=== PATIENT | male | born 1995 | race Caucasian/White ===

== ENCOUNTER 2021-05-09 22:08 | Emergency (ER) | payer OTHER, BC, SELFPAY ==
[2021-05-09 22:25] VITALS: BP 158/90; PULSE 101; RESP 16; TEMP 37.4; O2SAT 99
[2021-05-09 23:38] LABS: Glucose Point of Care 369 mg/dl (65-105)
[2021-05-10 01:33] VITALS: BP 151/102; PULSE 99; RESP 18; O2SAT 98
[2021-05-10 02:27] VITALS: BP 138/91; PULSE 101; RESP 20; O2SAT 98
--- NOTE | 2021-05-10 02:37 | ED.RECABL ---
HPI - Recheck/Abnormal Lab/Rx General Chief Complaint: Recheck/Abnormal Lab/Rx Stated Complaint: my glucometer reads high, max is 600 on it. Time Seen by Provider: 05/10/21 02:36 Source: patient Mode of arrival: ambulatory Limitations: no limitations History of Present Illness HPI narrative: Patient is a 25-year-old male complaining of elevated blood glucose at home. Patient states that his glucose meter read high 3 times. Patient admits to having nausea today but denies any vomiting. Patient denies any chest pain, shortness of breath, abdominal pain, diarrhea, urinary symptoms, fever or chills. Related Data Home Medications Medication Instructions Recorded Confirmed atorvastatin 20 mg PO DAILY 05/22/19 carvedilol 25 mg PO BID 05/22/19 indapamide 2.5 mg PO DAILY 05/22/19 insulin regular hum U-500 conc unit SUBCUT 05/22/19 [Humulin R U-500 (Conc) Kwikpen] lisinopril 05/22/19 metformin 05/22/19 Allergies Allergy/AdvReac Type Severity Reaction Status Date / Time No Known Allergies Allergy Verified 01/01/18 21:28 Review of Systems Review of Systems: All systems reviewed & are unremarkable except as noted in HPI and below Constitutional: Constitutional: Denies body ache(s), Denies chills, Denies excessive sweating, Denies fatigue, Denies fever(s), Denies headache(s), Denies lethargy, Denies malaise, Denies weakness and Denies weight loss Eyes: Eyes: Denies blurry vision, Denies change in vision and Denies loss of vision ENT: Denies dizziness, Denies ear discharge, Denies headache(s), Denies lip swelling, Denies epistaxis, Denies nasal congestion, Denies neck pain, Denies throat swelling and Denies tongue swelling Cardiovascular: Cardiovascular: Denies chest pain, Denies chest pain at rest, Denies chest pain with activity, Denies diaphoresis, Denies rapid heart rate, Denies edema, Denies irregular heart rhythm, Denies lightheadedness, Denies palpitations, Denies dyspnea and Denies dyspnea on exertion Respiratory: Respiratory: Denies chest congestion, Denies cough, Denies hemoptysis, Denies dyspnea and Denies dyspnea on exertion Gastrointestinal: Gastrointestinal: Denies abdominal pain, Denies melena, Denies hematochezia, Denies diarrhea, Denies vomiting and Denies hematemesis Musculoskeletal: Musculoskeletal: Denies abnormal gait, Denies deformity, Denies joint swelling, Denies limited range of motion, Denies neck pain and Denies numbness Neurologic: Denies Abnormal speech present, Denies abnormal gait, Denies confusion, Denies dizziness, Denies headache(s), Denies focal weakness, Denies loss of vision, Denies numbness, Denies Other visual disturbances, Denies Sensory deficit (Neuro) and Denies weakness Psychiatric: Psychiatric: Denies confusion, Denies depression, Denies auditory hallucinations, Denies homicidal ideation and Denies suicidal ideation Endocrine: Endocrine: Denies cold intolerance, Denies excessive sweating, Denies fatigue, Denies heat intolerance and Denies palpitations Hematologic/Lymphatic: Hematologic/Lymphatic: Denies easy bleeding and Denies easy bruising Allergic/Immunologic: Allergic/Immunologic: Denies lip swelling, Denies throat swelling and Denies tongue swelling PMF Past Medical History Medical History (Updated 05/10/21 @ 04:37 by Dequan Moreno MD) CAD (coronary artery disease) Diabetes HTN (hypertension) MVP (mitral valve prolapse) Social History Social History Smoking status: Never smoker Alcohol intake: current Alcohol use details: occasional Substance use: never Exam Const: General: cooperative, healthy appearing, comfortable, no acute distress, well developed, alert and awake; No confusion Orientation/consciousness: oriented to person, oriented to place, oriented to time, patient oriented x3 and No confusion Limitations: no limitations HENMT: Head: normal to inspection, normocephalic and
[2021-05-10 03:09] LABS: Alveolar/Arterial O2 Gradient 24.1 mmHg; Base Excess ABG -3.7 mEq/l (+/-2.0); Carboxyhemoglobin 0.5 % THb (0-2.0); Device ROOM AIR; Fractional Inspired Oxygen 21 %; HCO3 ABG 20.1 mEq/l (22.0-26.0); Methemoglobin ABG 0.4 %THb (0-1.5); Oxygen Content ABG 21.4 %vol (16.0-22.0); Oxygen Saturation ABG 96.5 % (95.0-100.0); Oxyhemoglobin 95.1 % THb (90.0-100.0); PCO2 ABG 33.5 mmHg (35.0-45.0); PO2 ABG 85.5 mmHg (80.0-100.0); PO2 FiO2 Ratio Arterial Blood 4.07 %; Site Drawn RIGHT BRACHIAL; pH ABG 7.396 (7.350-7.450)
[2021-05-10] MEDS: LACTATED RINGERS 1,000 ML 999 ML IV CONT (03:13)
[2021-05-10 03:21] LABS: Basophils Percent Auto 0.4 % (0.2-1.2); Eosinophils Absolute Auto 0.2 K/mm3 (0-0.3); Eosinophils Percent Auto 3.1 % (0-4.4); Hematocrit 43.4 % (42.0-52.0); Immature Granulocyte Absolute 0.02 K/mm3 (0.00-0.031); Immature Granulocyte Percent A 0.4 % (0-0.5); Lymphocytes Absolute Auto 2.17 K/mm3 (0.9-3.2); Lymphocytes Percent Auto 40.1 % (18.3-44.2); Mean Corpuscular Volume 81.7 fl (80-100); Mean Platelet Volume 9.7 fl (7.4-10.4); Monocytes Absolute Auto 0.4 K/mm3 (0.1-0.6); Monocytes Percent Auto 7.4 % (2.6-8.5); Neutrophils Absolute Auto 2.6 K/mm3 (1.3-6.7); Neutrophils Percent Auto 48.6 % (45.5-73.1); Platelet Count Result 312 k/mm3 (150-375); Red Blood Count 5.31 M/mm3 (4.6-6.20); Red Cell Distribution Width 12.2 % (11.5-14.5); White Blood Count 5.4 K/mm3 (4.5-10.0)
--- NOTE | 2021-05-10 03:25 | PC.NURSE ---
pt c/o RUQ pain x 1 week rates pain 01/13
[2021-05-10 03:26] LABS: Mean Corpuscular HGB Conc 39.2 g/dl (32-36)
[2021-05-10] MEDS: SODIUM CHLORIDE 0.9% IV 1,000 ML 999 ML IV CONT ×2 (03:29→04:46)
[2021-05-10 03:36] LABS: Beta-Hydroxybutyrate/Acetoacetate 0.57 mmol/L (0.02-0.27)
[2021-05-10 04:09] LABS: Glucose Point of Care 244 mg/dl (65-105)
[2021-05-10 04:31] LABS: Alanine Aminotransferase 71 U/L (4-50); Albumin Level 4.1 g/dL (3.5-5.1); Alkaline Phosphatase 121 U/L (38-126); Anion Gap 12 mmol/L (8-16); Aspartate Amino Transferase 45 U/L (17-59); Bilirubin,Total 0.8 mg/dL (0.2-1.3); Blood Urea Nitrogen 20 mg/dL (9-20); Calcium 8.9 mg/dL (8.4-10.2); Carbon Dioxide 21 mmol/L (22-30); Chloride 102 mmol/L (98-107); Estimated CRCL calculation 238 ml/min; Estimated Glomerular Filt Rate > 60; Glucose 220 mg/dL (65-110); Potassium 4.2 mmol/L (3.4-5.0); Sodium 135 mmol/L (137-145)
[2021-05-10 05:18] LABS: Glucose Point of Care 189 mg/dl (65-105)
[2021-05-10] MEDS: HYDROcodone/acetaminophen (*CRX) 5-325 MG TABLET 1 TAB PO (05:38)
[2021-05-10 05:39] VITALS: BP 157/99; PULSE 92; RESP 18; O2SAT 100
[2021-05-10 05:46] LABS: Add Urine Microscopic? YES; Appearance Urine Clear (Clear); Bilirubin Urine Negative (Negative); Blood Urine Negative (Negative); Color Urine Yellow (Yellow); Glucose Urine UA 3+ mg/dL (Negative); Ketones Urine 1+ mg/dL (Negative); Leukocyte Esterase Ur Negative LEU/UL (Negative); Mucus Urine Rare /lpf; Nitrate Urine Negative (Negative); Protein Urine 2+ mg/dL (Negative); Urobilinogen Urine Negative mg/dL (<2.0); WBC Urine 0-3 /hpf
[2021-05-10 05:49] LABS: Specific Grav Ur 1.031 (1.001-1.035)
== END 2021-05-10 06:29 | disposition home or self-care (01) ==
PROVIDERS: Emergency Provider Emergency Medicine
DX: E11.65 Type 2 diabetes mellitus with hyperglycemia (principal); I25.10 Atherosclerotic heart disease of native coronary artery without angina pectoris; I10 Essential (primary) hypertension; I34.1 Nonrheumatic mitral (valve) prolapse; Z79.4 Long term (current) use of insulin; Z79.84 Long term (current) use of oral hypoglycemic drugs
CPT/HCPCS: 36415; 36600; 80053; 81001; 82010; 82375; 82805; 82948; 83050; 85025; 96360; 99283; A9270; J7030; J7120

== ENCOUNTER 2021-06-06 10:30 | Emergency (ER) | payer BC, SELFPAY ==
--- NOTE | 2021-06-06 10:39 | ED.GENADULT ---
HPI - General Adult General Chief complaint: Unspecified Stated complaint: High Blood Sugar Time Seen by Provider: 06/06/21 10:39 Source: patient, RN notes reviewed and old records reviewed Mode of arrival: ambulatory Limitations: no limitations History of Present Illness HPI narrative: 25-year-old male presents to the [facility] with complaints of elevated blood sugar. Had been seen in the ER recently. Patient reports that he got his Covid vaccine on May 25, May 30 has been struggling with his blood sugars and generalized not feeling well. 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 Denies any chest pain or abdominal pain. No shortness of breath. Denies fevers. Related Data Home Medications Medication Instructions Recorded Confirmed carvedilol 25 mg PO BID 05/22/19 06/06/21 indapamide 2.5 mg PO DAILY 05/22/19 06/06/21 insulin regular hum U-500 conc 1 unit SUBCUT DIRECTED 05/22/19 06/06/21 [Humulin R U-500 (Conc) Kwikpen] lisinopril 5 mg PO DAILY 05/22/19 06/06/21 metformin 500 mg PO BID 05/22/19 06/06/21 duloxetine 60 mg PO DAILY 06/06/21 06/06/21 Allergies Allergy/AdvReac Type Severity Reaction Status Date / Time No Known Allergies Allergy Verified 01/01/18 21:28 Review of Systems Review of Systems: All systems reviewed & are unremarkable except as noted in HPI and below Constitutional: Constitutional: Reports no additional constitutional complaints, Denies chills and Denies fever(s) Eyes: Eyes: Reports no additional eye complaints ENT: Reports system reviewed and no additional complaints, except as documented Cardiovascular: Cardiovascular: Reports no additional cardiovascular complaints and Denies chest pain Respiratory: Respiratory: Reports no additional respiratory complaints, Denies cough, Denies dyspnea and Denies wheezing Gastrointestinal: Gastrointestinal: Reports no additional gastrointestinal complaints, Denies abdominal pain, Denies nausea and Denies vomiting Musculoskeletal: Musculoskeletal: Reports no additional musculoskeletal complaints Integumentary/Breasts: Skin/Breast: Reports system reviewed and no additional complaints, except as docu Neurologic: Reports system reviewed and no additional complaints, except as documented Psychiatric: Psychiatric: Reports no additional psychiatric complaints Endocrine: Endocrine: Reports as per HPI Comments: Blood sugar has been reading high. Allergic/Immunologic: Allergic/Immunologic: Reports no additional allergic/immunologic complaints PMFSH Past Medical History Medical History (Updated 06/06/21 @ 14:11 by Meagan Valdivia) CAD (coronary artery disease) Diabetes HTN (hypertension) MVP (mitral valve prolapse) Social History Social History Smoking status: Never smoker Alcohol intake: current Alcohol use details: occasional Substance use: never Comments At the time of my signature, I reviewed and agree with the nursing past medical, surgical, social, and family history. There is no relevant family history pertinent to the patient complaint. Exam Const: General: healthy appearing, no acute distress and alert Nutritional Appearance: well nourished and obese morbidly obese Orientation/consciousness: patient oriented x3 Limitations: no limitations HENMT: Head: normal to inspection Ears: external ears normal Eyes: Pupils: Equal, round and reactive pupils present Neck: Neck: normal visual inspection, no lymphadenopathy and no meningeal signs Chest: Chest palpation & inspection: normal inspection of the chest Resp: Effort & Inspection: normal respiratory effort and no use of accessory muscles Auscultation: clear to auscultation bilaterally, no crackles, no rales, no rhonchi and no wheezes Cardio: Rate: regular rate Rhythm: regular rhythm GI: GI Palp: Yes Soft to palpation, No Tenderness to palpation present (GI) and No Rebound tenderness present Back/Spine/Pelvis
[2021-06-06 10:40] VITALS: BP 137/84; PULSE 99; RESP 20; TEMP 36.6; O2SAT 98
[2021-06-06 10:54] LABS: Glucose Point of Care 472 mg/dl (65-105)
[2021-06-06 10:57] VITALS: BP 137/84; PULSE 99; RESP 20; TEMP 36.6; O2SAT 98
== END 2021-06-06 11:13 | disposition short-term general hospital (02) ==
LOC: EXPCOLL 10:35
PROVIDERS: Emergency Provider Nurse Practitioner
DX: E11.65 Type 2 diabetes mellitus with hyperglycemia (principal); I25.10 Atherosclerotic heart disease of native coronary artery without angina pectoris; I10 Essential (primary) hypertension; I34.1 Nonrheumatic mitral (valve) prolapse
CPT/HCPCS: 82948; 99212; G0463

== ENCOUNTER 2022-11-14 10:31 | Emergency (ER) | payer OTHER, SELFPAY ==
--- NOTE | 2022-11-14 10:48 | ED.GENADULT ---
HPI - General Adult General Chief complaint: Nausea/Vomiting/Diarrhea Stated complaint: High Blood Sugar Time Seen by Provider: 11/14/22 10:48 Source: patient Mode of arrival: ambulatory Limitations: no limitations History of Present Illness HPI narrative: 26-year-old male with history of hypertension and diabetes presents with complaint high blood sugar and high blood pressure for the last 3-4 days. Reports nausea vomiting for 3 days. Was seen at [facility] Saturday night and was told by nurse that he was not in DKA and to go home and hydrate. States that he did not see a provider that night. Patient reports that he continues to have nausea vomiting, urinating every hour, feels fatigued. Has been unable to go to work due to symptoms. Is taking his medications as prescribed. All systems reviewed and negative except as noted above. Related Data Home Medications Medication Instructions Recorded Confirmed carvedilol 25 mg tablet 25 mg PO BID 05/22/19 06/06/21 indapamide 2.5 mg tablet 2.5 mg PO DAILY 05/22/19 06/06/21 insulin regular hum U-500 conc 500 1 unit subcut DIRECTED 05/22/19 06/06/21 unit/mL(3 mL) subcut pen (Humulin R U-500 (Conc) Insulin Kwikpen) lisinopril 5 mg tablet 5 mg PO DAILY 05/22/19 06/06/21 duloxetine 60 mg capsule,delayed 60 mg PO DAILY 06/06/21 06/06/21 release Allergies Allergy/AdvReac Type Severity Reaction Status Date / Time No Known Allergies Allergy Verified 01/01/18 21:28 Review of Systems Review of Systems: CONSTITUTIONAL: Denies fever, chills, or sweats. Reports fatigue. EYES: Denies visual changes, redness, or discharge. ENT: Denies rhinorrhea, congestion, sore throat, or otalgia. CARDIOVASCULAR: Denies chest pain, palpitations, or edema. RESPIRATORY: Denies cough or dyspnea. GASTROINTESTINAL: Reports abdominal pain, nausea, vomiting. Denies diarrhea. GENITOURINARY: Denies dysuria or hematuria. reports urinary frequency. SKIN: Denies rash or itching. MUSCULOSKELETAL: Denies back pain, joint pain, or myalgia. NEUROLOGIC: Denies headache, numbness, or weakness. PSYCHIATRIC: Denies anxiety or depression. All other systems reviewed are negative, except as documented in HPI. [facility] Past Medical History Medical History (Updated 11/14/22 @ 11:05 by Molly Sheehan NP) CAD (coronary artery disease) Diabetes HTN (hypertension) MVP (mitral valve prolapse) Social History Social History Smoking status: Never smoker Alcohol intake: current Alcohol use details: occasional Substance use: never Comments At time of signature, agree with nursing past medical, surgical, social and family history. There is no relevant family history pertinent to the presenting complaint. Exam Narrative: GENERAL: This is a well-nourished, well-developed patient, in no apparent distress. Morbidly obese. HEAD: normocephalic, atraumatic. EYES: PERRL. Sclera clear/white. Vision is grossly intact. EARS: External ears normal NOSE: External nose normal NECK: Neck supple, non-tender without lymphadenopathy, masses or thyromegaly. CARDIOVASCULAR: Regular rate and rhythm without murmurs, gallops, or rubs. RESPIRATORY: Clear to auscultation. Breath sounds equal bilaterally. No wheezes, rales, or rhonchi. GASTROINTESTINAL: Abdomen soft, non-tender, nondistended. Bowel sounds are active. No hepato-splenomegaly, or palpable masses. No guarding. SKIN: warm, Dry, intact with no suspicious lesions or rash, good texture and turgor. NEURO: awake, alert, and oriented to person, place and time. There were no obvious focal neurologic abnormalities. EXTREMITIES: No joint tenderness, effusion, or edema noted. Course Course Level of Care: Express Care Visit Vital Signs Vital signs: Reviewed Transfer Transfered to: [facility] [facility] Transportation: Other ( private car) Transfer rationale: blood sugar 356 with nausea vomiting fo
[2022-11-14 10:50] VITALS: BP 180/95; PULSE 73; RESP 20; TEMP 36.9; O2SAT 100
[2022-11-14 10:53] LABS: Glucose Point of Care 346 mg/dl (65-105)
== END 2022-11-14 11:05 | disposition short-term general hospital (02) ==
PROVIDERS: Emergency Provider Nurse Practitioner Family
DX: E11.65 Type 2 diabetes mellitus with hyperglycemia (principal); Z79.4 Long term (current) use of insulin; I10 Essential (primary) hypertension; R11.2 Nausea with vomiting, unspecified; I25.10 Atherosclerotic heart disease of native coronary artery without angina pectoris; I34.1 Nonrheumatic mitral (valve) prolapse
CPT/HCPCS: 82948; 99212; G0463

== ENCOUNTER 2022-11-14 11:20 | Emergency (ER) | payer OTHER, SELFPAY ==
[2022-11-14] VITALS (7 sets, daily range): BP systolic 161–181; BP diastolic 94–102; PULSE 78–88; RESP 18–20; TEMP 36.6–36.7; O2SAT 95–100
--- NOTE | ~2022-11-14 | CT_ITS ---
EXAMINATION: CT abdomen pelvis w con DATE: 11/14/2022 12:46 INDICATION: Abdominal pain TECHNIQUE: Computed tomography (CT) of the abdomen and pelvis was performed with 100 mL Omnipaque-350 intravenous contrast. Automated exposure control and iterative reconstruction technique were employe d. The dose-length product was 2166.98 mGy-cm. COMPARISON: 01/01/2018 FINDINGS: Lung bases are clear. Heart size is normal. No pericardial or pleural effusion. Hepatomegaly with dif fuse hepatic steatosis with focal sparing along the gallbladder fossa. The right hepatic lobe measure s 30.7 cm craniocaudally. Gallbladder, pancreas, bilateral adrenal glands and kidneys are normal. Spl enomegaly measuring 20.7 cm in maximal length. Bowels including the appendix are normal. Bladder is n ormal. No free intraperitoneal gas or fluid. No pathologically enlarged abdominal or pelvic lymphaden opathy. Mild lumbar levocurvature. Chronic appearing mild anterior wedging of a few lower thoracic ve rtebral bodies. Mild to moderate thoracic and mild lumbar spondylosis. IMPRESSION: 1. No acute intra-abdominal/pelvic process. 2. Hepatosplenomegaly with diffuse hepatic steatosis. Reviewed, dictated and finalized at location A.
[2022-11-14 11:34] LABS: Glucose Point of Care 358 mg/dl (65-105)
[2022-11-14 12:12] LABS: Basophils Percent Auto 0.4 % (0.2-1.2); Eosinophils Absolute Auto 0.1 K/mm3 (0-0.3); Eosinophils Percent Auto 2.1 % (0-4.4); Hematocrit 41.2 % (42.0-52.0); Hemoglobin 14.8 g/dL (14.0-18.0); Immature Granulocyte Absolute 0.02 K/mm3 (0.00-0.031); Immature Granulocyte Percent A 0.4 % (0-0.5); Lymphocytes Absolute Auto 1.45 K/mm3 (0.9-3.2); Lymphocytes Percent Auto 27.3 % (18.3-44.2); Mean Corpuscular HGB Conc 35.9 g/dl (32-36); Mean Corpuscular Hemoglobin 29.9 pg (26-34); Mean Corpuscular Volume 83.2 fl (80-100); Mean Platelet Volume 9.9 fl (7.4-10.4); Monocytes Absolute Auto 0.3 K/mm3 (0.1-0.6); Monocytes Percent Auto 5.6 % (2.6-8.5); Neutrophils Absolute Auto 3.4 K/mm3 (1.3-6.7); Neutrophils Percent Auto 64.2 % (45.5-73.1); Platelet Count Result 258 k/mm3 (150-375); Red Blood Count 4.95 M/mm3 (4.6-6.20); White Blood Count 5.3 K/mm3 (4.5-10.0)
--- NOTE | 2022-11-14 12:14 | ED.RECABL ---
HPI - Recheck/Abnormal Lab/Rx General Chief Complaint: Recheck/Abnormal Lab/Rx Stated Complaint: hyperglycemia - sent from Time Seen by Provider: 11/14/22 12:13 Source: patient Mode of arrival: ambulatory Limitations: no limitations History of Present Illness HPI narrative: 26 years old white male, morbidly obese, type 2 diabetes came to the emergency room because of frequent vomiting roughly 4-15 times a day over the last 4 days. Diarrhea, roughly 3-4 times a day. High blood glucose. Currently his blood glucose is 317. Patient reports diffuse abdominal pain for the last 3 days. No fever or chills. Patient denies history of abdominal surgery, does not smoke or uses drugs, drinks occasionally. Related Data Home Medications Medication Instructions Recorded Confirmed carvedilol 25 mg tablet 25 mg PO BID 05/22/19 06/06/21 indapamide 2.5 mg tablet 2.5 mg PO DAILY 05/22/19 06/06/21 insulin regular hum U-500 conc 500 1 unit subcut DIRECTED 05/22/19 06/06/21 unit/mL(3 mL) subcut pen (Humulin R U-500 (Conc) Insulin Kwikpen) lisinopril 5 mg tablet 5 mg PO DAILY 05/22/19 06/06/21 duloxetine 60 mg capsule,delayed 60 mg PO DAILY 06/06/21 06/06/21 release Allergies Allergy/AdvReac Type Severity Reaction Status Date / Time No Known Allergies Allergy Verified 11/14/22 11:21 Review of Systems Review of Systems: All systems reviewed & are unremarkable except as noted in HPI and below PMFSH Past Medical History Medical History (Updated 11/14/22 @ 13:48 by Devyn Kline MD) CAD (coronary artery disease) Diabetes HTN (hypertension) MVP (mitral valve prolapse) Social History Social History Smoking status: Never smoker Alcohol intake: current Alcohol use details: occasional Substance use: never Exam Narrative: General appearance: Well-developed, well-nourished, morbidly obese Skin: Normal color Head: Normocephalic, nontraumatic Eyes: Clear conjunctiva ENT: Oropharynx normal, ears normal, nose normal Neck: Supple, nontender Chest and respiratory: Airway patent, no respiratory distress, no accessory muscle use Heart: Regular rate/rhythm Abdomen: Soft, mild diffuse tenderness,, no organomegaly, quiet bowel sounds Vascular: Normal peripheral pulses, normal capillary refill. Musculoskeletal: Normal range of motion, nontender back Neurologic: Alert and oriented ?3, [employer] is normal as tested, no gross motor deficit Course Vital Signs Vital signs: Vital Signs Temperature 36.6 C 11/14/22 11:30 Pulse Rate 78 11/14/22 11:30 Respiratory Rate 20 11/14/22 11:30 Blood Pressure 176/94 H 11/14/22 11:30 Pulse Oximetry 99 11/14/22 11:30 Oxygen Delivery Room Air 11/14/22 11:30 Temperature 36.7 C 11/14/22 16:56 Pulse Rate 88 11/14/22 16:56 Respiratory Rate 18 11/14/22 16:56 Blood Pressure 161/102 H 11/14/22 16:56 Pulse Oximetry 98 11/14/22 16:56 Oxygen Delivery Room Air 11/14/22 11:59 MDM - Recheck/Abnormal Lab/Rx MDM Narrative Medical decision making narrative: Patient is 26 years old white male, type 2 diabetes drove himself to the emergency room because of nausea, vomiting and diarrhea over the last 4 days associated with mild abdominal discomfort. Physical examination was consistent with diffuse abdominal discomfort, mild. Differential diagnosis include gastroenteritis, electrolyte imbalance, dehydration, DKA, diabetic hyperglycemia. Work-up today includes CBC, CMP, urine analysis, CT abdomen and pelvis with IV contrast showed Blood glucose of 341 venous blood gas showed pH of 7.5 Patient received 2 L of normal saline IV, 4
[2022-11-14 12:15] LABS: Appearance Urine Clear (Clear); Bilirubin Urine Negative (Negative); Blood Urine Negative (Negative); Color Urine Yellow (Yellow); Glucose Urine UA 3+ mg/dL (Negative); Ketones Urine Negative (Negative); Leukocyte Esterase Ur Negative LEU/UL (Negative); Nitrate Urine Negative (Negative); Protein Urine Negative (Negative); Specific Grav Ur 1.026 (1.001-1.035); Urobilinogen Urine 0.2 mg/dL (<2.0); pH Urine 5.5 (5.0-9.0)
[2022-11-14 12:25] LABS: Alanine Aminotransferase 62 U/L (6-50); Albumin Level 4.2 g/dL (3.5-5.1); Alkaline Phosphatase 127 U/L (38-126); Anion Gap 10 mmol/L (8-16); Aspartate Amino Transferase 46 U/L (17-59); Bilirubin,Total 0.4 mg/dL (0.2-1.3); Blood Urea Nitrogen 14 mg/dL (9-20); Calcium 9.2 mg/dL (8.4-10.2); Carbon Dioxide 22 mmol/L (22-30); Chloride 104 mmol/L (98-107); Estimated CRCL calculation 369 ml/min; Estimated Glomerular Filt Rate > 60; Glucose 341 mg/dL (65-110); Magnesium 1.5 mg/dL (1.6-2.3); Phosphorus 4.5 mg/dL (2.5-4.5); Potassium 4.4 mmol/L (3.4-5.0); Sodium 136 mmol/L (137-145)
[2022-11-14 12:27] LABS: Add Urine Microscopic? NO
[2022-11-14] MEDS: SODIUM CHLORIDE 0.9% IV 2,000 ML 999 ML IV CONT (12:27)
[2022-11-14] MEDS: ONDANSETRON INJ 4 MG/2 ML VIAL IV PUSH (12:27)
[2022-11-14 12:31] LABS: Beta-Hydroxybutyrate/Acetoacetate 0.15 mmol/L (0.02-0.27)
[2022-11-14 13:12] LABS: Fractional Inspired Oxygen 21 %; HCO3 VBG 18.9 mEq/l (24.0-30.0)
[2022-11-14 13:13] LABS: Device ROOM AIR; PCO2 VBG 24.7 mmHg (42.0-48.0); pH VBG 7.502 (7.300-7.400)
[2022-11-14 13:14] LABS: Lipase 94 U/L (23-300)
[2022-11-14 16:56] LABS: Glucose Point of Care 229 mg/dl (65-105)
== END 2022-11-14 16:56 | disposition home or self-care (01) ==
PROVIDERS: Emergency Medicine; Emergency Provider Emergency Medicine
DX: K52.9 Noninfective gastroenteritis and colitis, unspecified (principal); E11.65 Type 2 diabetes mellitus with hyperglycemia; I25.10 Atherosclerotic heart disease of native coronary artery without angina pectoris; I34.1 Nonrheumatic mitral (valve) prolapse; E66.01 Morbid (severe) obesity due to excess calories; Z68.42 Body mass index [BMI] 45.0-49.9, adult; Z79.4 Long term (current) use of insulin; R16.2 Hepatomegaly with splenomegaly, not elsewhere classified; K76.0 Fatty (change of) liver, not elsewhere classified
CPT/HCPCS: 36415; 74177; 80053; 81003; 82010; 82803; 82948; 83690; 83735; 84100; 85025; 96361; 96374; 99284; J2405; J7030; Q9967

== ENCOUNTER 2023-03-09 06:44 | Emergency (ER) | payer BC, SELFPAY ==
[2023-03-09] VITALS (28 sets, daily range): BP systolic 117–176; BP diastolic 74–109; PULSE 75–103; RESP 13–23; TEMP 37; O2SAT 94–100
--- NOTE | ~2023-03-09 | XR_ITS ---
EXAMINATION: XR chest 2V DATE: 03/09/2023 08:19 INDICATION: Cough TECHNIQUE: Frontal and lateral views of the chest are obtained COMPARISON: None available FINDINGS: The lungs are free of acute opacities. The lung volumes are low. No pleural effusion or pne umothorax. The cardiomediastinal silhouette is normal. The visualized bones and soft tissues are unre markable. IMPRESSION: 1. No acute cardiopulmonary abnormality. Reviewed, dictated and finalized at location F.
[2023-03-09 06:53] LABS: Glucose Point of Care 415 mg/dl (65-105)
[2023-03-09 06:58] LABS: Glucose Point of Care 438 mg/dl (65-105)
[2023-03-09] MEDS: SODIUM CHLORIDE 0.9% IV 1,000 ML 999 ML IV CONT ×2 (07:24→08:00)
[2023-03-09 07:37] LABS: Appearance Urine Clear (Clear); Bacteria Urine None Seen /hpf; Bilirubin Urine Negative (Negative); Blood Urine Negative (Negative); Color Urine Yellow (Yellow); Glucose Urine UA 3+ mg/dL (Negative); Ketones Urine 4+ mg/dL (Negative); Leukocyte Esterase Ur Negative LEU/UL (Negative); Nitrate Urine Negative (Negative); Non Pathogenic Casts 0-2; Protein Urine 2+ mg/dL (Negative); RBC Urine 0-2 /hpf (0-2); Specific Grav Ur 1.033 (1.001-1.035); Squamous Epithelial Cell Urine None seen /hpf (Few); Urobilinogen Urine 0.2 mg/dL (<2.0); WBC Urine 0-5 /hpf
[2023-03-09 07:43] LABS: Add Urine Microscopic? YES
--- NOTE | 2023-03-09 07:45 | ECG_ITS ---
Measurements Intervals Luther Rate: 84 P: 15 CO: 180 QRS: 19 QRSD: 122 T: 7 QT: 379 QTc: 450 Interpretive Statements SINUS RHYTHM INTRAVENTRICULAR CONDUCTION DELAY DELAYED PRECORDIAL R/S TRANSITION INFERIOR INFARCT, AGE INDETERMINATE ABNORMAL ECG COMPARED TO ECG 05/22/2019 22:08:31 NO SIGNIFICANT CHANGES Electronically Signed On 03-09-2023 9:30:49 CDT by David Mtz D.O.
--- NOTE | 2023-03-09 07:46 | ED.GENADULT ---
HPI - General Adult General Chief complaint: Unspecified Stated complaint: high blood sugar Time Seen by Provider: 03/09/23 06:59 History of Present Illness HPI narrative: Patient is a 27-year-old male with a history of diabetes presenting with hyperglycemia. Patient states that he has been getting over a cold for the last several weeks. States he has been coughing and having intermittent vomiting. States that he does have intermittent chest pain as well. He denies shortness of breath, lightheadedness, palpitations. States that today his blood glucose has been reading high on his glucometer. He gave himself NovoLog but continued to read high so he came in for evaluation. Denies abdominal pain, dysuria, diarrhea, fevers, leg swelling. 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 Related Data Home Medications Medication Instructions Recorded Confirmed carvedilol 25 mg tablet 25 mg PO BID 05/22/19 06/06/21 indapamide 2.5 mg tablet 2.5 mg PO DAILY 05/22/19 06/06/21 insulin regular hum U-500 conc 500 1 unit subcut DIRECTED 05/22/19 06/06/21 unit/mL(3 mL) subcut pen (Humulin R U-500 (Conc) Insulin Kwikpen) lisinopril 5 mg tablet 5 mg PO DAILY 05/22/19 06/06/21 duloxetine 60 mg capsule,delayed 60 mg PO DAILY 06/06/21 06/06/21 release Allergies Allergy/AdvReac Type Severity Reaction Status Date / Time No Known Allergies Allergy Verified 03/09/23 06:56 Review of Systems Review of Systems: All systems reviewed & are unremarkable except as noted in HPI and below [facility] Past Medical History Medical History (Updated 03/09/23 @ 12:36 by Lakeisha Brody MD) CAD (coronary artery disease) Diabetes HTN (hypertension) MVP (mitral valve prolapse) Social History Social History Smoking status: Never smoker Alcohol intake: current Alcohol use details: occasional Substance use: never Exam Narrative: GENERAL: Well-appearing, in no acute distress, pleasant and cooperative HEAD: Normocephalic, atraumatic. EYES: PERRLA and EOMI. ENT: Nares clear, no rhinorrhea or epistaxis. Mucous membranes moist. NECK: Supple. CHEST: Clear to auscultation. No respiratory distress. HEART: Regular rate and rhythm ABDOMEN: Soft, nontender, nondistended EXTREMITIES: Normal range of motion. No edema. SKIN: Warm, dry, no rash. NEURO: No focal deficits. Alert and oriented x3. PSYCH: Normal mood and affect. Course Vital Signs Vital signs: Vital Signs Temperature 98.6 F 03/09/23 06:46 Pulse Rate 103 H 03/09/23 06:46 Respiratory Rate 20 03/09/23 06:46 Blood Pressure 176/97 H 03/09/23 06:46 Pulse Oximetry 99 03/09/23 06:46 Oxygen Delivery Room Air 03/09/23 06:46 Temperature 98.6 F 03/09/23 06:46 Pulse Rate 83 03/09/23 11:15 Respiratory Rate 16 03/09/23 11:15 Blood Pressure 117/74 03/09/23 10:46 Pulse Oximetry 98 03/09/23 10:46 Oxygen Delivery Room Air 03/09/23 06:46 Medical Decision Making [facility] Narrative Medical decision making narrative: 27-year-old male presenting with hyperglycemia. Vitals are stable. Exam remarkable for the above. EKG per my interpretation shows normal sinus rhythm, Q waves inferiorly, no ST elevations or depressions. Blood work with glucose in the 400s. Initial sample was unable to be fully interpreted due to lipemia. Repeat sent and shows normal anion gap and bicarb. Renal function is normal. VBG without acidosis. Not concerned for DKA at this time. Chest x-ray without acute abnormalities. UA does not appear infected. Patient received 2 L of fluids and blood glucose is in the 300s. He currently feels well. Feel he is safe for outpatient management. Advised that he continue to take his insulin as prescribed. We will provide the phone number for primary care as the patient states that he only has an medical office secretary and he cannot get in with him for alysia
[2023-03-09 07:57] LABS: Beta-Hydroxybutyrate/Acetoacetate 3.38 mmol/L (0.02-0.27)
[2023-03-09 08:02] LABS: Basophils Percent Auto 0.7 % (0.2-1.2); Eosinophils Absolute Auto 0.1 K/mm3 (0-0.3); Eosinophils Percent Auto 2.9 % (0-4.4); Hematocrit 42.6 % (42.0-52.0); Hemoglobin 15.3 g/dL (14.0-18.0); Immature Granulocyte Absolute 0.02 K/mm3 (0.00-0.031); Immature Granulocyte Percent A 0.4 % (0-0.5); Lymphocytes Absolute Auto 1.43 K/mm3 (0.9-3.2); Lymphocytes Percent Auto 31.8 % (18.3-44.2); Mean Corpuscular HGB Conc 35.9 g/dl (32-36); Mean Corpuscular Hemoglobin 29.5 pg (26-34); Mean Corpuscular Volume 82.2 fl (80-100); Mean Platelet Volume 10.5 fl (7.4-10.4); Monocytes Absolute Auto 0.3 K/mm3 (0.1-0.6); Monocytes Percent Auto 6.9 % (2.6-8.5); Neutrophils Absolute Auto 2.6 K/mm3 (1.3-6.7); Neutrophils Percent Auto 57.3 % (45.5-73.1); Nucleated Red Blood Cells Perc 0.9 % (0.0-0.2); Platelet Count Result 201 k/mm3 (150-375); Red Blood Count 5.18 M/mm3 (4.6-6.20); Red Cell Distribution Width 12.6 % (11.5-14.5); White Blood Count 4.5 K/mm3 (4.5-10.0)
[2023-03-09 08:06] LABS: Alanine Aminotransferase 44 U/L (6-50); Albumin Level 4.4 g/dL (3.5-5.1); Alkaline Phosphatase 163 U/L (38-126); Aspartate Amino Transferase 46 U/L (17-59); Bilirubin,Total 1.3 mg/dL (0.2-1.3); Blood Urea Nitrogen 14 mg/dL (9-20); Calcium 8.8 mg/dL (8.4-10.2); Chloride 98 mmol/L (98-107); Estimated CRCL calculation 354 ml/min; Estimated Glomerular Filt Rate > 60; Glucose 439 mg/dL (65-110); Potassium 4.8 mmol/L (3.4-5.0); Sodium 129 mmol/L (137-145)
[2023-03-09 08:11] LABS: Fractional Inspired Oxygen 21 %; HCO3 VBG 18.4 mEq/l (24.0-30.0); PCO2 VBG 32.7 mmHg (42.0-48.0); PO2 VBG 62.7 mmHg (35.0-45.0); pH VBG 7.367 (7.300-7.400)
[2023-03-09 08:12] LABS: Device ROOM AIR
[2023-03-09 09:13] LABS: Troponin I < 0.012 ng/mL (0.000-0.034)
[2023-03-09 10:55] LABS: Anion Gap 16 mmol/L (8-16); Blood Urea Nitrogen 11 mg/dL (9-20); Calcium 8.7 mg/dL (8.4-10.2); Carbon Dioxide 13 mmol/L (22-30); Chloride 102 mmol/L (98-107); Estimated CRCL calculation 301 ml/min; Estimated Glomerular Filt Rate > 60; Glucose 346 mg/dL (65-110); Sodium 131 mmol/L (137-145)
[2023-03-09 11:01] LABS: Potassium 4.3 mmol/L (3.4-5.0)
[2023-03-09 11:09] LABS: Troponin I < 0.012 ng/mL (0.000-0.034)
== END 2023-03-09 12:41 | disposition home or self-care (01) ==
PROVIDERS: Emergency Provider Emergency Medicine
DX: E11.65 Type 2 diabetes mellitus with hyperglycemia (principal); I25.10 Atherosclerotic heart disease of native coronary artery without angina pectoris; I10 Essential (primary) hypertension; I34.1 Nonrheumatic mitral (valve) prolapse; I45.9 Conduction disorder, unspecified; R94.31 Abnormal electrocardiogram [ECG] [EKG]; Z79.4 Long term (current) use of insulin
CPT/HCPCS: 36415; 71046; 80048; 80053; 81001; 82010; 82803; 82948; 83690; 84484; 85025; 93005; 96360; 96361; 99284; J7030

== ENCOUNTER 2023-05-31 14:27 | Emergency (ER) | payer BC, SELFPAY ==
--- NOTE | ~2023-05-31 | XR_ITS ---
EXAMINATION: XR foot LT 2V DATE: 05/31/2023 18:24 INDICATION: Left great toe infection. Injury. TECHNIQUE: 2 views of left foot were obtained. COMPARISON: None. FINDINGS: Bone alignment is normal. No fracture. There is mild osteoarthritis of first metatarsophala ngeal joint and talonavicular joint. There are enthesophytes at the posterior and plantar aspects of calcaneal tuberosity. IMPRESSION: 1. Mild polyarticular osteoarthritis. Reviewed, dictated and finalized at location E. 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
--- NOTE | ~2023-05-31 | XR_ITS ---
EXAMINATION: XR foot RT 2V DATE: 05/31/2023 18:24 INDICATION: Right great toe infection. TECHNIQUE: 2 views of right foot were obtained. COMPARISON: None. FINDINGS: Bone alignment is normal. No fracture. Joint spaces are normal. There are enthesophytes at the posterior and plantar aspects of calcaneal tuberosity. IMPRESSION: 1. No evidence of osteomyelitis. 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
[2023-05-31 14:32] VITALS: BP 183/108; PULSE 88; RESP 20; TEMP 36.2; O2SAT 98
--- NOTE | 2023-05-31 14:33 | PC.NURSE ---
POC BS [id number]
[2023-05-31 14:35] LABS: Glucose Point of Care 404 mg/dl (65-105)
[2023-05-31 16:50] LABS: Glucose Point of Care 454 mg/dl (65-105)
[2023-05-31] MEDS: SODIUM CHLORIDE 0.9% IV 1,000 ML 999 ML IV CONT ×2 (16:54→17:36)
[2023-05-31 16:56] LABS: Basophils Percent Auto 0.5 % (0.2-1.2); Eosinophils Absolute Auto 0.1 K/mm3 (0-0.3); Eosinophils Percent Auto 1.6 % (0-4.4); Hematocrit 44.5 % (42.0-52.0); Hemoglobin 17.4 g/dL (14.0-18.0); Immature Granulocyte Absolute 0.03 K/mm3 (0.00-0.031); Immature Granulocyte Percent A 0.5 % (0-0.5); Lymphocytes Absolute Auto 1.78 K/mm3 (0.9-3.2); Lymphocytes Percent Auto 32.5 % (18.3-44.2); Mean Corpuscular Hemoglobin 32.4 pg (26-34); Mean Corpuscular Volume 82.9 fl (80-100); Monocytes Absolute Auto 0.4 K/mm3 (0.1-0.6); Monocytes Percent Auto 6.9 % (2.6-8.5); Neutrophils Absolute Auto 3.2 K/mm3 (1.3-6.7); Platelet Count Result 314 k/mm3 (150-375); Red Blood Count 5.37 M/mm3 (4.6-6.20); Red Cell Distribution Width 12.1 % (11.5-14.5); White Blood Count 5.5 K/mm3 (4.5-10.0)
[2023-05-31 17:12] LABS: Alanine Aminotransferase 51 U/L (6-50); Albumin Level 4.7 g/dL (3.5-5.1); Alkaline Phosphatase 152 U/L (38-126); Anion Gap 14 mmol/L (8-16); Aspartate Amino Transferase 65 U/L (17-59); Bilirubin,Total 1.7 mg/dL (0.2-1.3); Blood Urea Nitrogen 18 mg/dL (9-20); Calcium 9.1 mg/dL (8.4-10.2); Carbon Dioxide 18 mmol/L (22-30); Chloride 101 mmol/L (98-107); Estimated CRCL calculation 224 ml/min; Estimated Glomerular Filt Rate > 60; Glucose 417 mg/dL (65-110); Magnesium 1.7 mg/dL (1.6-2.3); Phosphorus 5.3 mg/dL (2.5-4.5); Potassium 5.3 mmol/L (3.4-5.0); Sodium 133 mmol/L (137-145)
[2023-05-31 17:16] LABS: Beta-Hydroxybutyrate/Acetoacetate 1.47 mmol/L (0.02-0.27)
[2023-05-31 17:33] LABS: Mean Corpuscular HGB Conc 39.1 g/dl (32-36)
[2023-05-31 17:45] LABS: Fractional Inspired Oxygen 21 %; HCO3 VBG 22.2 mEq/l (24.0-30.0); PO2 VBG 55.3 mmHg (35.0-45.0)
[2023-05-31 17:46] LABS: Device ROOM AIR; pH VBG 7.407 (7.300-7.400)
--- NOTE | 2023-05-31 17:57 | ED.GENADULT ---
HPI - General Adult General Chief complaint: Recheck/Abnormal Lab/Rx Stated complaint: high BG Time Seen by Provider: 05/31/23 17:14 Source: patient Mode of arrival: ambulatory Limitations: no limitations History of Present Illness HPI narrative: This is a 27-year-old male with PMH of insulin-dependent diabetes, HTN who presents to the ED with chief complaint of multiple readings of high blood sugar on his glucometer at home. Reports that he has been feeling malaise to the last couple of days. States he does not get worried about his sugars and so they are 300s. He has bilateral great toe fungal infections chronically but notes that he did stub his right toe this morning. states that he has not been eating a lot due to feeling unwell and nausea. denies any recent cough, urinary problems, abdominal pain, diarrhea. Related Data Home Medications Medication Instructions Recorded Confirmed carvedilol 25 mg tablet 25 mg PO BID 05/22/19 06/06/21 indapamide 2.5 mg tablet 2.5 mg PO DAILY 05/22/19 06/06/21 insulin regular hum U-500 conc 500 1 unit subcut DIRECTED 05/22/19 06/06/21 unit/mL(3 mL) subcut pen (Humulin R U-500 (Conc) Insulin Kwikpen) lisinopril 5 mg tablet 5 mg PO DAILY 05/22/19 06/06/21 duloxetine 60 mg capsule,delayed 60 mg PO DAILY 06/06/21 06/06/21 release Allergies Allergy/AdvReac Type Severity Reaction Status Date / Time No Known Allergies Allergy Verified 05/31/23 14:33 Review of Systems Review of Systems: All systems as dictated in [facility] Past Medical History Medical History (Updated 06/01/23 @ 00:00 by Pepe Ferreira) CAD (coronary artery disease) Diabetes HTN (hypertension) MVP (mitral valve prolapse) Social History Social History Smoking status: Never smoker Alcohol intake: current Alcohol use details: occasional Substance use: never Exam Narrative: GENERAL: Well-appearing, well-nourished, and in no acute distress. HEAD: Normocephalic, atraumatic. EYES: PERRLA and EOMI. ENT: Nares clear, no rhinorrhea or epistaxis. Mucous membranes moist. Oropharynx without tonsillar hypertrophy exudate or other lesions. NECK: Supple. No adenopathy or masses. CHEST: No respiratory distress. Clear to auscultation. No wheezes rales or rhonchi HEART: Regular rate and rhythm. No murmur heard. Normal peripheral pulses. ABDOMEN: Soft, nontender, nondistended, normal active bowel sounds. MSK: Normal range of motion. No edema. SKIN: Erythema and warmth to the right great toe with 2 areas of skin break. The toenail has probable fungal infection. Dried blood to the right great toe. Mild tenderness. No crepitus. Left great toe with mild erythema but no tenderness or skin break. NEURO: Alert and oriented x3. No focal deficits. PSYCH: Normal mood and affect. Course Course Emergency Course: Re-evaluation at 7:40 p.m.: Patient feeling much improved after fluids. Vital Signs Vital signs: Vital Signs Temperature 97.2 F L 05/31/23 14:32 Pulse Rate 88 05/31/23 14:32 Respiratory Rate 20 05/31/23 14:32 Blood Pressure 183/108 H 05/31/23 14:32 Pulse Oximetry 98 05/31/23 14:32 Oxygen Delivery Room Air 05/31/23 14:32 Temperature 98.3 F 05/31/23 18:52 Pulse Rate 75 05/31/23 18:52 Respiratory Rate 16 05/31/23 18:52 Blood Pressure 142/82 H 05/31/23 18:52 Pulse Oximetry 96 05/31/23 18:52 Oxygen Delivery Room Air 05/31/23 14:32 Medical Decision Making [facility] Narrative Medical decision making narrative: This is a 27-year-old male who presents to the ED with chief complaint of high blood sugars. Secondary complaint fungal toe infection. Vitals show initial high blood pressure but otherwise normal. Afebrile. Exam does reveal likely onychomycosis/tinea pedis of the bilateral great toes. There is some surrounding erythema and warmth to the right great toe. B
[2023-05-31] MEDS: METOCLOPRAMIDE HCL INJ 10 MG/2 ML VIAL IV PUSH (18:09)
[2023-05-31] MEDS: KETOROLAC 15 MG/ML VIAL (*BKC) IV PUSH (18:10)
[2023-05-31] MEDS: LACTATED RINGERS 1,000 ML 999 ML IV CONT (18:10)
[2023-05-31] MEDS: INSULIN HUMAN REGULAR (*BKC) 100 UNITS/ML 8 UNITS IV PUSH (18:36)
[2023-05-31 18:45] LABS: Appearance Urine Clear (Clear); Bacteria Urine None Seen /hpf; Bilirubin Urine Negative (Negative); Blood Urine Negative (Negative); Color Urine Yellow (Yellow); Glucose Urine UA 3+ mg/dL (Negative); Ketones Urine 2+ mg/dL (Negative); Leukocyte Esterase Ur Negative LEU/UL (Negative); Need Manual Microscopic Reviewed; Nitrate Urine Negative (Negative); Non Pathogenic Casts 0-2; Protein Urine Trace mg/dL (Negative); RBC Urine 0-2 /hpf (0-2); Specific Grav Ur 1.032 (1.001-1.035); Squamous Epithelial Cell Urine None seen /hpf (Few); Urobilinogen Urine 0.2 mg/dL (<2.0); pH Urine 5.5 (5.0-9.0)
[2023-05-31 18:46] LABS: Add Urine Microscopic? YES
[2023-05-31 18:52] VITALS: BP 142/82; PULSE 75; RESP 16; TEMP 36.8; O2SAT 96
[2023-05-31 18:56] LABS: Glucose Point of Care 365 mg/dl (65-105)
[2023-05-31] MEDS: CEFEPIME 2 GM/NS 50 ML 2 GM/50 ML BAG IVPB (19:04)
[2023-05-31 21:21] LABS: Glucose Point of Care 334 mg/dl (65-105)
[2023-05-31 22:13] LABS: Glucose Point of Care 334 mg/dl (65-105)
[2023-05-31 22:15] LABS: Anion Gap 15 mmol/L (8-16); Blood Urea Nitrogen 17 mg/dL (9-20); Carbon Dioxide 16 mmol/L (22-30); Chloride 106 mmol/L (98-107); Estimated CRCL calculation 254 ml/min; Estimated Glomerular Filt Rate > 60; Glucose 314 mg/dL (65-110); Sodium 137 mmol/L (137-145)
== END 2023-05-31 22:29 | disposition home or self-care (01) ==
PROVIDERS: Emergency Medicine; Emergency Provider Physician Assistant
DX: E11.65 Type 2 diabetes mellitus with hyperglycemia (principal); L03.031 Cellulitis of right toe; I10 Essential (primary) hypertension; I25.10 Atherosclerotic heart disease of native coronary artery without angina pectoris; I34.1 Nonrheumatic mitral (valve) prolapse; Z79.4 Long term (current) use of insulin; M19.072 Primary osteoarthritis, left ankle and foot
CPT/HCPCS: 36415; 73620; 80048; 80053; 81001; 82010; 82803; 82948; 83735; 84100; 85025; 87086; 96361; 96365; 96375; 99284; J0692; J1815; J1885; J2765; J7030; J7120

== ENCOUNTER 2023-09-10 09:05 | Emergency (ER) | payer BC, SELFPAY ==
--- NOTE | 2023-09-10 09:08 | ED.EAR ---
HPI - Ear Problem General Chief complaint: Unspecified Stated complaint: Right Side Ear/Face Pain Time Seen by Provider: 09/10/23 09:08 Source: patient Mode of arrival: ambulatory Limitations: no limitations History of Present Illness HPI Narrative: Patient is a 27-year-old male that presents with right facial pain that started a week ago but is worsening today. Patient reports it is painful to chew and sends shooting pains up right-sided face. States right side of face feels swollen. Patient took blood sugar this morning and was 220, states that is his normal. Did take insulin this morning. Denies any vision changes in right eye, dental problems. Does report history of ear infection use but states this does not feel like previous infections. MD Complaint: ear pain Related Data Home Medications Medication Instructions Recorded Confirmed carvedilol 25 mg tablet 25 mg PO BID 05/22/19 09/10/23 indapamide 2.5 mg tablet 2.5 mg PO DAILY 05/22/19 09/10/23 insulin regular hum U-500 conc 500 1 unit subcut DIRECTED 05/22/19 09/10/23 unit/mL(3 mL) subcut pen (Humulin R U-500 (Conc) Insulin Kwikpen) lisinopril 5 mg tablet 5 mg PO DAILY 05/22/19 09/10/23 duloxetine 60 mg capsule,delayed 60 mg PO DAILY 06/06/21 09/10/23 release Allergies Allergy/AdvReac Type Severity Reaction Status Date / Time No Known Allergies Allergy Verified 09/10/23 09:23 Review of Systems Review of Systems: All systems reviewed & are unremarkable except as noted in HPI and below Constitutional: Constitutional: Denies body ache(s), Denies chills, Denies fever(s), Denies headache(s) and Denies malaise Eyes: Eyes: Denies blurry vision, Denies eye discharge and Denies irritation ENT: Reports otalgia, Reports facial pain, Denies headache(s), Denies nasal congestion, Denies nasal discharge and Denies sore throat Cardiovascular: Cardiovascular: Denies chest pain, Denies edema, Denies palpitations and Denies dyspnea on exertion Respiratory: Respiratory: Denies cough and Denies dyspnea on exertion Gastrointestinal: Gastrointestinal: Denies abdominal pain, Denies diarrhea, Denies nausea and Denies vomiting Musculoskeletal: Musculoskeletal: Denies back pain, Denies arthralgias and Denies muscle weakness Integumentary/Breasts: Skin/Breast: Denies pruritus and Denies rash Neurologic: Denies headache(s) Psychiatric: Psychiatric: Reports no additional psychiatric complaints Endocrine: Endocrine: Denies palpitations PMFSH Past Medical History Medical History (Updated 09/10/23 @ 10:00 by Dominique Melo APRN) CAD (coronary artery disease) Diabetes HTN (hypertension) MVP (mitral valve prolapse) Social History Social History Smoking status: Never smoker Alcohol intake: current Alcohol use details: occasional Substance use: never Comments At time of signature, agree with nursing past medical, surgical, social and family history. There is no relevant family history pertinent to the presenting complaint? Exam Const: General: cooperative, healthy appearing, no acute distress and well nourished Nutritional Appearance: well nourished Orientation/consciousness: patient oriented x3 Limitations: no limitations HENMT: Head: normal to inspection, normocephalic and atraumatic Ears: hearing grossly normal bilaterally, EAC's normal, no periauricular adenopathy and TM abnormal Face/Nose/Sinus: Normal external nose present, Normal nares present, Normal nasal mucous membranes and turbinates present, No nasal discharge present, normal facial exam, erythema and Facial tenderness on exam of face and sinuses (over right trigeminal nerve, jaw ) Face and sinus: normal facial exam Mouth: Yes Normal oral and palatal mucosa present, Yes lip normal, Yes tongue normal, Yes moist mucous membranes and No trismus Teeth and gingiva: dentition normal Throat: posterior oropharynx normal, tonsils normal and
[2023-09-10 09:10] VITALS: BP 149/90; PULSE 79; RESP 20; TEMP 36.2; O2SAT 100
[2023-09-10 09:45] LABS: Glucose Point of Care 465 mg/dl (65-105)
== END 2023-09-10 09:46 | disposition short-term general hospital (02) ==
PROVIDERS: Emergency Provider Nurse Practitioner Family
DX: E11.65 Type 2 diabetes mellitus with hyperglycemia (principal); Z79.4 Long term (current) use of insulin; R51.9 Headache, unspecified; I25.10 Atherosclerotic heart disease of native coronary artery without angina pectoris; I10 Essential (primary) hypertension
CPT/HCPCS: 82948; 99213; G0463

== ENCOUNTER 2023-09-10 10:16 | Emergency (ER) | payer BC, SELFPAY ==
--- NOTE | ~2023-09-10 | CT_ITS ---
EXAMINATION: CT IAC/mastoids BI w con DATE: 09/10/2023 12:46 INDICATION: Right jaw pain. TECHNIQUE: Computed tomography (CT) of the temporal bones was performed with 150 mL Omnipaque 350 int ravenous contrast. Automated exposure control and iterative reconstruction technique were employed. T he dose-length product was 456.15 mGy-cm. COMPARISON: Head CT 05/22/2019 FINDINGS: RIGHT TEMPORAL BONE: The internal auditory canal, cochlea, vestibule, semicircular canals, vestibular aqueduct, carotid ca nal, jugular bulb, facial nerve course, ossicles, Prussak space, scutum, tympanic membrane, mastoid a ir cells, and external auditory canal are normal. LEFT TEMPORAL BONE: The cochlea, vestibule, semicircular canals, vestibular aqueduct, carotid canal, jugular bulb, facial nerve course, ossicles, Prussak space, scutum, tympanic membrane, and mastoid air cells, are normal. There is cerumen in left external auditory canal. IMPRESSION: 1. No etiology for the patient's symptoms. Reviewed, dictated and finalized at location A.
--- NOTE | ~2023-09-10 | CT_ITS ---
EXAMINATION: CT soft tissue neck w con DATE: 09/10/2023 12:46 INDICATION: Right jaw pain. TECHNIQUE: Computed tomography (CT) of the neck was performed with 150 mL Omnipaque-350 intravenous c ontrast. Automated exposure control and iterative reconstruction technique were employed. The dose-le ngth product was 615.87 mGy-cm. COMPARISON: None FINDINGS: There are mucous retention cysts in the maxillary sinuses. The orbits are normal. There are no pathologically enlarged lymph nodes. The mandible is normal. The teeth are unremarkable. The phar ynx and larynx are normal. The major salivary glands are normal. There is mild cervical spondylosis. IMPRESSION: 1. No etiology for the patient's symptoms. Reviewed, dictated and finalized at location A.
[2023-09-10 10:20] VITALS: BP 178/98; PULSE 80; RESP 16; TEMP 37; O2SAT 98
--- NOTE | 2023-09-10 11:24 | ED.GENADULT ---
[facility] - General Adult General Chief complaint: Unspecified Stated complaint: jaw pain and high BG Time Seen by Provider: 09/10/23 11:03 Source: patient Mode of arrival: ambulatory Limitations: no limitations History of Present Illness HPI narrative: This is a 27-year-old male who presents to the ED with chief complaint of right-sided facial pain the past week. Patient reports pain has been often on throughout the right side of the face. Reports family history trigeminal neuralgia. He is a diabetic and states that have sugars been a little off so he has concern for possible infection. Blood glucose on arrival is in the upper 300s. Denies fevers, chills, ear pain, ear drainage, sore throat or trouble swallowing. Denies numbness, weakness. Related Data Home Medications Medication Instructions Recorded Confirmed carvedilol 25 mg tablet 25 mg PO BID 05/22/19 09/10/23 indapamide 2.5 mg tablet 2.5 mg PO DAILY 05/22/19 09/10/23 insulin regular hum U-500 conc 500 1 unit subcut DIRECTED 05/22/19 09/10/23 unit/mL(3 mL) subcut pen (Humulin R U-500 (Conc) Insulin Kwikpen) lisinopril 5 mg tablet 5 mg PO DAILY 05/22/19 09/10/23 duloxetine 60 mg capsule,delayed 60 mg PO DAILY 06/06/21 09/10/23 release Allergies Allergy/AdvReac Type Severity Reaction Status Date / Time No Known Allergies Allergy Verified 09/10/23 09:23 Review of Systems Review of Systems: All systems as dictated in [facility] Past Medical History Medical History (Updated 09/10/23 @ 15:24 by Eleno Mercado PA-C) CAD (coronary artery disease) Diabetes HTN (hypertension) MVP (mitral valve prolapse) Social History Social History Smoking status: Never smoker Alcohol intake: current Alcohol use details: occasional Substance use: never Exam Narrative: GENERAL: Well-appearing, well-nourished, and in no acute distress. HEAD: Normocephalic, atraumatic. EYES: PERRLA and EOMI. ENT: Tenderness throughout the V1, V2, V3 branches of the trigeminal nerves Nares clear, no rhinorrhea or epistaxis. Mucous membranes moist. Oropharynx without tonsillar hypertrophy exudate or other lesions. TMs normal. Ear canals normal. NECK: Supple. No adenopathy or masses. CHEST: No respiratory distress. Clear to auscultation. No wheezes rales or rhonchi HEART: Regular rate and rhythm. No murmur heard. Normal peripheral pulses. ABDOMEN: Soft, nontender, nondistended, normal active bowel sounds. MSK: Normal range of motion. No edema. SKIN: Warm, dry, no rash. No rash or overt skin changes indicating infection. NEURO: Alert and oriented x3. No focal deficits. PSYCH: Normal mood and affect. Course Vital Signs Vital signs: Vital Signs Temperature 98.6 F 09/10/23 10:20 Pulse Rate 80 09/10/23 10:20 Respiratory Rate 16 09/10/23 10:20 Blood Pressure 178/98 H 09/10/23 10:20 Pulse Oximetry 98 09/10/23 10:20 Temperature 98.6 F 09/10/23 10:20 Pulse Rate 60 09/10/23 13:30 Respiratory Rate 16 09/10/23 13:30 Blood Pressure 141/92 H 09/10/23 13:30 Pulse Oximetry 99 09/10/23 13:30 Medical Decision Making MDM Narrative Medical decision making narrative: This is a 27-year-old male who presents to the ED for hyperglycemia and right-sided facial pain. Exam does show tenderness to the right side of the face. Vitals are normal. Lab work shows normal white count on the CBC. Inflammatory markers are negative. CMP remarkable for elevated blood glucose of 365. He was given 3 L of fluids and some insulin and his blood sugar down to [address] imaging was ordered due to tenderness around the ears and throat. Soft tissue neck CT and internal auditory canal CT are negative for any acute findings. Overall workup is reassuring. Likely diagnosis is trigeminal neuralgia. 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
[2023-09-10] MEDS: SODIUM CHLORIDE 0.9% IV 1,000 ML 999 ML IV CONT ×3 (11:48→13:24)
[2023-09-10] MEDS: MORPHINE SULFATE (*CRX) 4 MG/ML INJ IV PUSH (11:49)
[2023-09-10 12:15] LABS: Basophils Percent Auto 0.4 % (0.2-1.2); Eosinophils Absolute Auto 0.1 K/mm3 (0-0.3); Eosinophils Percent Auto 2.1 % (0-4.4); Hematocrit 47.4 % (42.0-52.0); Hemoglobin 17.2 g/dL (14.0-18.0); Immature Granulocyte Absolute 0.02 K/mm3 (0.00-0.031); Immature Granulocyte Percent A 0.4 % (0-0.5); Lymphocytes Absolute Auto 1.62 K/mm3 (0.9-3.2); Lymphocytes Percent Auto 28.9 % (18.3-44.2); Mean Corpuscular HGB Conc 36.3 g/dl (32-36); Mean Corpuscular Hemoglobin 29.5 pg (26-34); Mean Corpuscular Volume 81.3 fl (80-100); Mean Platelet Volume 9.7 fl (7.4-10.4); Monocytes Absolute Auto 0.3 K/mm3 (0.1-0.6); Monocytes Percent Auto 5.7 % (2.6-8.5); Neutrophils Absolute Auto 3.5 K/mm3 (1.3-6.7); Neutrophils Percent Auto 62.5 % (45.5-73.1); Platelet Count Result 280 k/mm3 (150-375); Red Blood Count 5.83 M/mm3 (4.6-6.20); Red Cell Distribution Width 12.1 % (11.5-14.5); White Blood Count 5.6 K/mm3 (4.5-10.0)
[2023-09-10 12:19] LABS: Appearance Urine Clear (Clear); Bacteria Urine None Seen /hpf; Bilirubin Urine Negative (Negative); Blood Urine Negative (Negative); Color Urine Yellow (Yellow); Glucose Urine UA 3+ mg/dL (Negative); Ketones Urine Trace mg/dL (Negative); Leukocyte Esterase Ur Negative LEU/UL (Negative); Nitrate Urine Negative (Negative); Non Pathogenic Casts 0-2; Protein Urine 2+ mg/dL (Negative); RBC Urine 0-2 /hpf (0-2); Squamous Epithelial Cell Urine None Seen /hpf (Few); Urobilinogen Urine 0.2 mg/dL (<2.0); WBC Urine 0-5 /hpf (0-3); pH Urine 5.5 (5.0-9.0)
[2023-09-10 12:20] LABS: Alanine Aminotransferase 61 U/L (6-50); Albumin Level 5.3 g/dL (3.5-5.1); Alkaline Phosphatase 119 U/L (38-126); Anion Gap 12 mmol/L (4-12); Aspartate Amino Transferase 36 U/L (17-59); Bilirubin,Total 0.9 mg/dL (0.2-1.3); Blood Urea Nitrogen 15 mg/dL (9-20); CRP < 0.5 mg/dL (<1.0); Calcium 10.6 mg/dL (8.4-10.2); Carbon Dioxide 21 mmol/L (22-30); Chloride 102 mmol/L (98-107); Estimated CRCL calculation 294 ml/min; Estimated Glomerular Filt Rate > 60; Glucose 365 mg/dL (65-110); Potassium 4.3 mmol/L (3.4-5.0); Sodium 135 mmol/L (137-145)
[2023-09-10 12:36] LABS: Add Urine Microscopic? YES; Specific Grav Ur 1.041 (1.001-1.035)
[2023-09-10] MEDS: KETOROLAC 30 MG/ML VIAL (*BKC) IV PUSH (13:24)
[2023-09-10 13:29] VITALS: RESP 17; O2SAT 99
[2023-09-10 13:30] VITALS: BP 141/92; PULSE 60; RESP 16; O2SAT 99
[2023-09-10 13:34] LABS: Glucose Point of Care 314 mg/dl (65-105)
[2023-09-10] MEDS: INSULIN HUMAN REGULAR (*BKC) 100 UNITS/ML 8 UNITS IV PUSH (13:44)
[2023-09-10 15:37] LABS: Glucose Point of Care 236 mg/dl (65-105)
== END 2023-09-10 15:57 | disposition home or self-care (01) ==
PROVIDERS: Emergency Provider Physician Assistant; Referring Provider Emergency Medicine
DX: G50.0 Trigeminal neuralgia (principal); E11.65 Type 2 diabetes mellitus with hyperglycemia; I25.10 Atherosclerotic heart disease of native coronary artery without angina pectoris; I10 Essential (primary) hypertension; I34.1 Nonrheumatic mitral (valve) prolapse; Z79.4 Long term (current) use of insulin
CPT/HCPCS: 36415; 70481; 70491; 80053; 81001; 82948; 85025; 86140; 96361; 96374; 96375; 99284; J1815; J1885; J2270; J7030; Q9967

== ENCOUNTER 2023-09-18 08:12 | Emergency (ER) | payer BC, SELFPAY ==
--- NOTE | ~2023-09-18 | CT_ITS ---
CT Facial Bones Clinical Indication: Facial pain Technique: Following intravenous administration of 75 cc of Omnipaque 350 contrast material, axial sc ans were obtained through the facial bones followed by coronal and sagittal reconstructions. Dose red uction technique was used on this scan by utilizing automated exposure control and iterative reconstr uction technique. The dose-length product (DLP) was 694.35 mGy-cm. Findings: No fractures are identified. The visualized paranasal sinuses are clear. Intraorbital soft tissues appear normal. There retention cysts or polyps in the bilateral maxillary sinuses. Impression: No fracture identified. Retention cysts or polyps in the bilateral maxillary sinuses. Reviewed, dictated and finalized at location . Impression: No fracture identified. Retention cysts or polyps in the bilateral maxillary sinuses.
[2023-09-18 08:15] VITALS: BP 147/91; PULSE 71; RESP 16; TEMP 36.6; O2SAT 66
--- NOTE | 2023-09-18 10:13 | ED.GENADULT ---
HPI - General Adult General Chief complaint: Unspecified Stated complaint: jaw pain Time Seen by Provider: 09/18/23 08:22 History of Present Illness HPI narrative: 27-year-old male present to the emergency department for evaluation of worsening right ear pain. Patient was initially seen on 09/09 for right-sided ear pain jaw pain. Patient was evaluated emergency department had negative imaging. Patient did have follow-up with his primary care physician and was started on Augmentin. Patient states he patient have worsening jaw pain. Patient is a type 2 diabetic Related Data Home Medications Medication Instructions Recorded Confirmed carvedilol 25 mg tablet 25 mg PO BID 05/22/19 09/10/23 indapamide 2.5 mg tablet 2.5 mg PO DAILY 05/22/19 09/10/23 insulin regular hum U-500 conc 500 1 unit subcut DIRECTED 05/22/19 09/10/23 unit/mL(3 mL) subcut pen (Humulin R U-500 (Conc) Insulin Kwikpen) lisinopril 5 mg tablet 5 mg PO DAILY 05/22/19 09/10/23 duloxetine 60 mg capsule,delayed 60 mg PO DAILY 06/06/21 09/10/23 release Allergies Allergy/AdvReac Type Severity Reaction Status Date / Time No Known Allergies Allergy Verified 09/18/23 08:18 Review of Systems Review of Systems: All systems reviewed & are unremarkable except as noted in HPI and below PMFSH Past Medical History Medical History (Updated 09/18/23 @ 12:23 by Justin Hassan MD) CAD (coronary artery disease) Diabetes HTN (hypertension) MVP (mitral valve prolapse) Social History Social History Smoking status: Never smoker Alcohol intake: current Alcohol use details: occasional Substance use: never Exam Narrative: APPEARANCE: Well appearing, no pain, no distress, well-nourished. HEAD: normocephalic, atraumatic. Right TMJ tenderness to palpation,, no deformity. No overlying cellulitis EYES: PERRLA/EOMI, conjunctivae clear. NOSE: Normal no drainage EARS:TMS clear with good light reflex. THROAT: Pharynx clear, no exudate. NECK: Supple. No adenopathy, no masses. RESPIRATORY: Airway patent, respirations nonlabored. Clear to auscultation bilaterally, no rales, rhonchi, wheezing. CARDIOVASCULAR: Regular rate and rhythm without murmurs rubs or gallops. ABDOMINAL: Soft, nontender, nondistended, normal bowel sounds MUSCULOSKELETAL: Moves all extremities. Strength/ROM intact, No edema, No calf tenderness. NEURO: Alert. Cranial nerves II through XII intact. Grossly intact SKIN: Warm, dry. Normal Color Course Vital Signs Vital signs: Vital Signs Temperature 97.8 F 09/18/23 08:15 Pulse Rate 71 09/18/23 08:15 Respiratory Rate 16 09/18/23 08:15 Blood Pressure 147/91 H 09/18/23 08:15 Pulse Oximetry 66 L 09/18/23 08:15 Oxygen Delivery Room Air 09/18/23 08:15 Temperature 97.8 F 09/18/23 08:15 Pulse Rate 88 09/18/23 12:35 Respiratory Rate 16 09/18/23 12:35 Blood Pressure 148/86 H 09/18/23 12:35 Pulse Oximetry 98 09/18/23 12:35 Oxygen Delivery Room Air 09/18/23 08:15 Medical Decision Making [facility] Narrative Medical decision making narrative: 27-year-old male presents emergency department for evaluation for persistent right jaw and ear pain. Patient has previously been seen in the emergency department had negative CT imaging. Patient had follow-up with primary care physician was started on Augmentin. Patient states that his symptoms have persisted so he return to the emergency department. Patient has no acute abnormalities on the exam CT scan with contrast showed no abscess amenable to drainage in no acute abnormalities. Patient is afebrile with no leukocytosis and a stable hemoglobin. Patient has no acute abnormalities on his CMP other than elevated glucose with patient is a known diabetic. Suspect dental etiology for the patient's ear and jaw pain. Patient will be switched to clindamycin with the lack of response to Augmentin. Lyric
[2023-09-18 10:22] LABS: Glucose Point of Care 283 mg/dl (65-105)
[2023-09-18] MEDS: HYDROmorphone HCL INJ (*CRX) 1 MG/ML SYR 0.5 MG IV PUSH (10:23)
[2023-09-18 10:26] LABS: Basophils Percent Auto 0.9 % (0.2-1.2); Eosinophils Absolute Auto 0.1 K/mm3 (0-0.3); Eosinophils Percent Auto 2.2 % (0-4.4); Hematocrit 44.9 % (42.0-52.0); Hemoglobin 16.6 g/dL (14.0-18.0); Immature Granulocyte Absolute 0.02 K/mm3 (0.00-0.031); Immature Granulocyte Percent A 0.4 % (0-0.5); Lymphocytes Absolute Auto 1.37 K/mm3 (0.9-3.2); Lymphocytes Percent Auto 30.7 % (18.3-44.2); Mean Corpuscular Hemoglobin 29.9 pg (26-34); Mean Corpuscular Volume 80.9 fl (80-100); Mean Platelet Volume 9.8 fl (7.4-10.4); Monocytes Absolute Auto 0.3 K/mm3 (0.1-0.6); Monocytes Percent Auto 7.4 % (2.6-8.5); Neutrophils Absolute Auto 2.6 K/mm3 (1.3-6.7); Neutrophils Percent Auto 58.4 % (45.5-73.1); Platelet Count Result 248 k/mm3 (150-375); Red Blood Count 5.55 M/mm3 (4.6-6.20); Red Cell Distribution Width 11.8 % (11.5-14.5); White Blood Count 4.5 K/mm3 (4.5-10.0)
[2023-09-18 10:53] LABS: Alanine Aminotransferase 60 U/L (6-50); Albumin Level 4.6 g/dL (3.5-5.1); Alkaline Phosphatase 104 U/L (38-126); Anion Gap 8 mmol/L (4-12); Aspartate Amino Transferase 34 U/L (17-59); Bilirubin,Total 0.7 mg/dL (0.2-1.3); Blood Urea Nitrogen 13 mg/dL (9-20); Calcium 9.5 mg/dL (8.4-10.2); Carbon Dioxide 23 mmol/L (22-30); Chloride 103 mmol/L (98-107); Estimated CRCL calculation 350 ml/min; Estimated Glomerular Filt Rate > 60; Glucose 281 mg/dL (65-110); Potassium 4.3 mmol/L (3.4-5.0); Sodium 134 mmol/L (137-145)
[2023-09-18 11:18] VITALS: BP 141/95; PULSE 65; RESP 16; O2SAT 98
[2023-09-18 12:35] VITALS: BP 148/86; PULSE 88; RESP 16; O2SAT 98
== END 2023-09-18 12:36 | disposition home or self-care (01) ==
PROVIDERS: Emergency Provider Emergency Medicine
DX: R68.84 Jaw pain (principal); I25.10 Atherosclerotic heart disease of native coronary artery without angina pectoris; E11.9 Type 2 diabetes mellitus without complications; I10 Essential (primary) hypertension
CPT/HCPCS: 36415; 70487; 80053; 82948; 85025; 96374; 99284; J1170; Q9967

== ENCOUNTER 2023-11-28 06:34 | Emergency (ER) | payer BC, SELFPAY ==
[2023-11-28 06:37] VITALS: BP 150/86; PULSE 78; RESP 17; TEMP 36.2; O2SAT 99
[2023-11-28 06:40] LABS: Glucose Point of Care 135 mg/dl (65-105)
[2023-11-28 07:35] LABS: Basophils Percent Auto 0.5 % (0.2-1.2); Eosinophils Absolute Auto 0.1 K/mm3 (0-0.3); Hematocrit 45.7 % (42.0-52.0); Hemoglobin 16.1 g/dL (14.0-18.0); Immature Granulocyte Absolute 0.02 K/mm3 (0.00-0.031); Immature Granulocyte Percent A 0.4 % (0-0.5); Lymphocytes Absolute Auto 1.46 K/mm3 (0.9-3.2); Lymphocytes Percent Auto 26.2 % (18.3-44.2); Mean Corpuscular HGB Conc 35.2 g/dl (32-36); Mean Corpuscular Hemoglobin 29.9 pg (26-34); Mean Corpuscular Volume 84.9 fl (80-100); Mean Platelet Volume 9.5 fl (7.4-10.4); Monocytes Absolute Auto 0.4 K/mm3 (0.1-0.6); Monocytes Percent Auto 7.4 % (2.6-8.5); Neutrophils Absolute Auto 3.5 K/mm3 (1.3-6.7); Neutrophils Percent Auto 63.5 % (45.5-73.1); Platelet Count Result 273 k/mm3 (150-375); Red Blood Count 5.38 M/mm3 (4.6-6.20); Red Cell Distribution Width 12.7 % (11.5-14.5); White Blood Count 5.6 K/mm3 (4.5-10.0)
[2023-11-28] MEDS: ONDANSETRON INJ 4 MG/2 ML VIAL IV PUSH (07:38)
[2023-11-28] MEDS: SODIUM CHLORIDE 0.9% IV 1,000 ML 999 ML IV CONT (07:38)
[2023-11-28 07:45] LABS: Appearance Urine Cloudy (Clear); Bacteria Urine None Seen /hpf; Bilirubin Urine Negative (Negative); Blood Urine Negative (Negative); Color Urine Yellow (Yellow); Glucose Urine UA Negative (Negative); Ketones Urine Negative (Negative); Leukocyte Esterase Ur Negative LEU/UL (Negative); Need Manual Microscopic Reviewed; Nitrate Urine Negative (Negative); Non Pathogenic Casts 0-2; Protein Urine 1+ mg/dL (Negative); RBC Urine 0-2 /hpf (0-2); Specific Grav Ur 1.034 (1.001-1.035); Squamous Epithelial Cell Urine None Seen /hpf (Few); pH Urine 5.5 (5.0-9.0)
[2023-11-28 07:46] LABS: Alanine Aminotransferase 55 U/L (6-50); Albumin Level 4.7 g/dL (3.5-5.1); Alkaline Phosphatase 62 U/L (38-126); Anion Gap 13 mmol/L (4-12); Aspartate Amino Transferase 33 U/L (17-59); Bilirubin,Total 0.6 mg/dL (0.2-1.3); Blood Urea Nitrogen 17 mg/dL (9-20); Calcium 9.3 mg/dL (8.4-10.2); Carbon Dioxide 24 mmol/L (22-30); Chloride 103 mmol/L (98-107); Estimated CRCL calculation 224 ml/min; Estimated Glomerular Filt Rate > 60; Glucose 129 mg/dL (65-110); Lipase 70 U/L (23-300); Potassium 3.9 mmol/L (3.4-5.0); Sodium 140 mmol/L (137-145)
--- NOTE | 2023-11-28 07:49 | ED.GENADULT ---
HPI - General Adult General Chief complaint: Nausea/Vomiting/Diarrhea Stated complaint: headache,dizziness, dehydration Time Seen by Provider: 11/28/23 07:27 History of Present Illness HPI narrative: 27-year-old male presented to the emergency department for evaluation for nausea vomiting that started approximately 2:00 a.m. this morning. Patient states he has had persistent nausea and vomiting has had difficulty keeping down fluids. Patient has had abdominal cramping but denies any abdominal pain. Patient denies any associated diarrhea. Patient is diabetic and has been on mounjaro for approximately 3 months and has had 50 lb of weight loss. Patient has had no adverse reactions to the medication yet. Related Data Home Medications Medication Instructions Recorded Confirmed carvedilol 25 mg tablet 25 mg PO BID 05/22/19 09/10/23 indapamide 2.5 mg tablet 2.5 mg PO DAILY 05/22/19 09/10/23 insulin regular hum U-500 conc 500 1 unit subcut DIRECTED 05/22/19 09/10/23 unit/mL(3 mL) subcut pen (Humulin R U-500 (Conc) Insulin Kwikpen) lisinopril 5 mg tablet 5 mg PO DAILY 05/22/19 09/10/23 duloxetine 60 mg capsule,delayed 60 mg PO DAILY 06/06/21 09/10/23 release Allergies Allergy/AdvReac Type Severity Reaction Status Date / Time No Known Allergies Allergy Verified 11/28/23 06:35 Review of Systems Review of Systems: All systems reviewed & are unremarkable except as noted in HPI and below [facility] Past Medical History Medical History (Updated 11/28/23 @ 09:43 by Justin Hassan MD) CAD (coronary artery disease) Diabetes HTN (hypertension) MVP (mitral valve prolapse) Social History Social History Smoking status: Never smoker Alcohol intake: current Alcohol use details: occasional Substance use: never Exam Narrative: APPEARANCE: Uncomfortable appearing due to nausea HEAD: normocephalic, atraumatic. EYES: PERRLA/EOMI, conjunctivae clear. NOSE: Normal no drainage EARS:TMS clear with good light reflex. THROAT: Pharynx clear, no exudate. NECK: Supple. No adenopathy, no masses. RESPIRATORY: Airway patent, respirations nonlabored. Clear to auscultation bilaterally, no rales, rhonchi, wheezing. CARDIOVASCULAR: Regular rate and rhythm without murmurs rubs or gallops. ABDOMINAL: Soft, nontender, nondistended, normal bowel sounds MUSCULOSKELETAL: Moves all extremities. Strength/ROM intact, No edema, No calf tenderness. NEURO: Alert. Cranial nerves II through XII intact. Good gait. Good coordination SKIN: Warm, dry. Normal Color Course Course Emergency Course: Patient felt improved with treatment and patient was discharged home with medications for further nausea control. Vital Signs Vital signs: Vital Signs Temperature 97.1 F L 11/28/23 06:37 Pulse Rate 78 11/28/23 06:37 Respiratory Rate 17 11/28/23 06:37 Blood Pressure 150/86 H 11/28/23 06:37 Pulse Oximetry 99 11/28/23 06:37 Temperature 97.1 F L 11/28/23 06:37 Pulse Rate 69 11/28/23 08:45 Respiratory Rate 12 11/28/23 08:45 Blood Pressure 133/79 11/28/23 08:45 Pulse Oximetry 98 11/28/23 08:45 Medical Decision Making [facility] Narrative Medical decision making narrative: 27-year-old male presenting to the emergency department for evaluation for nausea and vomiting that started at 2:00 a.m.. Since arrival emergency department patient has had no further nausea and vomiting. Patient is tolerating p.o.. Patient is afebrile with no leukocytosis and a stable hemoglobin is 16.1. Patient has no significant lab abnormalities. Lipase is not elevated. UA shows no underlying evidence of infection. On re-evaluation patient states he does feel improved. Patient still has some the stomach uneasiness but denies any pain with this. 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 Patient was comfortable with this plan. Patien
[2023-11-28 08:03] LABS: Add Urine Microscopic? YES
[2023-11-28 08:45] VITALS: BP 133/79; PULSE 69; RESP 12; O2SAT 98
== END 2023-11-28 09:59 | disposition home or self-care (01) ==
PROVIDERS: Emergency Provider Emergency Medicine
DX: R11.2 Nausea with vomiting, unspecified (principal); I25.10 Atherosclerotic heart disease of native coronary artery without angina pectoris; E11.9 Type 2 diabetes mellitus without complications; I10 Essential (primary) hypertension
CPT/HCPCS: 36415; 80053; 81001; 82948; 83690; 85025; 87086; 87088; 96361; 96374; 99284; J2405; J7030

== ENCOUNTER 2024-05-03 14:29 | Emergency (ER) | payer OTHER, SELFPAY ==
--- NOTE | ~2024-05-03 | XR_ITS ---
CHEST RADIOGRAPH, PA AND LATERAL CLINICAL HISTORY: BILATERAL CP/HEADACHE/N/V . COMPARISON: 03/09/2023 TECHNIQUE: PA and lateral views of the chest. FINDINGS The cardiomediastinal silhouette is unremarkable. The lungs are clear. Visualized osseous structures and soft tissues are unremarkable. IMPRESSION: No focal infiltrate or effusion. Reviewed, dictated and finalized at location A. FARMWORKER
--- NOTE | 2024-05-03 14:33 | ECG_ITS ---
Test Date: 2024-05-03 14:42:22 Measurements Intervals [place] Rate: 97 P: 27 AK: 164 QRS: 26 QRSD: 111 T: 33 QT: 347 QTc: 442 Interpretive Statements SINUS RHYTHM No previous ECG available for comparison Electronically Signed On 05-04-2024 18:26:23 [employer]ZZA [employer] by Debbi Tavarez M.D.
[2024-05-03 14:50] VITALS: BP 155/115; PULSE 99; RESP 16; TEMP 37.7; O2SAT 99
[2024-05-03 15:01] LABS: Basophils Percent Auto 0.4 % (0.2-1.2); Eosinophils Percent Auto 0.9 % (0-4.4); Hematocrit 44.6 % (42.0-52.0); Hemoglobin 16.6 g/dL (14.0-18.0); Immature Granulocyte Absolute 0.03 K/mm3 (0.00-0.031); Immature Granulocyte Percent A 0.6 % (0-0.5); Lymphocytes Absolute Auto 0.64 K/mm3 (0.9-3.2); Lymphocytes Percent Auto 13.9 % (18.3-44.2); Mean Corpuscular HGB Conc 37.2 g/dl (32-36); Mean Corpuscular Hemoglobin 30.1 pg (26-34); Mean Corpuscular Volume 80.8 fl (80-100); Mean Platelet Volume 9.2 fl (7.4-10.4); Monocytes Absolute Auto 0.4 K/mm3 (0.1-0.6); Monocytes Percent Auto 8.9 % (2.6-8.5); Neutrophils Absolute Auto 3.5 K/mm3 (1.3-6.7); Neutrophils Percent Auto 75.3 % (45.5-73.1); Platelet Count Result 216 k/mm3 (150-375); Red Blood Count 5.52 M/mm3 (4.6-6.20); Red Cell Distribution Width 12.2 % (11.5-14.5); White Blood Count 4.6 K/mm3 (4.5-10.0)
[2024-05-03 15:15] LABS: Alanine Aminotransferase 62 U/L (6-50); Albumin Level 4.3 g/dL (3.5-5.1); Alkaline Phosphatase 105 U/L (38-126); Anion Gap 6 mmol/L (4-12); Aspartate Amino Transferase 35 U/L (17-59); Bilirubin,Total 1.6 mg/dL (0.2-1.3); Blood Urea Nitrogen 14 mg/dL (9-20); Carbon Dioxide 23 mmol/L (22-30); Chloride 103 mmol/L (98-107); Estimated CRCL calculation 260 ml/min; Estimated Glomerular Filt Rate > 60; Glucose 253 mg/dL (65-110); Lipase 56 U/L (23-300); Sodium 132 mmol/L (137-145)
[2024-05-03 15:17] LABS: INR 0.9; Partial Thromboplastin Time 24.1 Seconds (22.3-36.8); Prothrombin Time 12.8 Seconds (11.1-14.7)
[2024-05-03 15:26] LABS: Troponin I < 0.012 ng/mL (0.000-0.034)
[2024-05-03 16:34] VITALS: BP 179/110; PULSE 98; RESP 23; O2SAT 98
--- NOTE | 2024-05-03 16:41 | ED_ITS ---
HPI - Chest Pain General Chief Complaint: Chest Pain Stated Complaint: chest pain, headache, N/V since last night Time Seen by Provider: 05/03/24 16:37 Source: patient Mode of arrival: ambulatory Limitations: no limitations History of Present Illness HPI narrative: This is a 28-year-old male with PMH of CAD, HTN, diabetes who presents to the ED for multiple complaints including headache, bilateral chest pain, N/V. Patient states that last night he started to develop a gradual onset headache to the frontal head. States that this is his main concern today. States that he has started to develop diffuse body aches including aches in the chest wall. Endorses 4 episodes of vomiting since last night but no diarrhea. Denies fevers, sore throat, shortness of breath. Related Data Home Medications ?Medication ?Instructions ?Recorded ?Confirmed ?Last Taken ?Type carvedilol 25 mg tablet 25 mg PO BID 05/22/19 09/10/23 Unknown History indapamide 2.5 mg tablet 2.5 mg PO DAILY 05/22/19 09/10/23 Unknown History insulin regular hum U-500 conc 500 1 unit subcut DIRECTED 05/22/19 09/10/23 Unknown History unit/mL(3 mL) subcut pen (Humulin R U-500 (Conc) Insulin Kwikpen) lisinopril 5 mg tablet 5 mg PO DAILY 05/22/19 09/10/23 Unknown History duloxetine 60 mg capsule,delayed 60 mg PO DAILY 06/06/21 09/10/23 Unknown History release Allergies Allergy/AdvReac Type Severity Reaction Status Date / Time No Known Allergies Allergy Verified 05/03/24 14:30 Review of Systems 2 Review of Systems: All systems as dictated in [facility] Past Medical History Medical History (Updated 05/04/24 @ 00:00 by Pepe Ferreira) Diabetes HTN (hypertension) CAD (coronary artery disease) MVP (mitral valve prolapse) Social History Social History Smoking status: Never smoker Alcohol intake: current Alcohol use details: occasional Substance use: never Exam 2 Narrative: GENERAL: Well-appearing, well-nourished, and in no acute distress. HEAD: Normocephalic, atraumatic. EYES: PERRLA and EOMI. ENT: Nares clear, no rhinorrhea or epistaxis. Mucous membranes moist. Oropharynx without tonsillar hypertrophy exudate or other lesions. NECK: Supple. No adenopathy or masses. CHEST: No respiratory distress. Clear to auscultation. No wheezes rales or rhonchi HEART: Regular rate and rhythm. No murmur heard. Normal peripheral pulses. ABDOMEN: Soft, nontender, nondistended, normal active bowel sounds. MSK: Normal range of motion. No edema. SKIN: Warm, dry, no rash. NEURO: Alert and oriented x4. No focal deficits. PSYCH: Normal mood and affect. Course Vital Signs Vital signs: Vital Signs Temperature 99.9 F H 05/03/24 14:50 Pulse Rate 99 05/03/24 14:50 Respiratory Rate 16 05/03/24 14:50 Blood Pressure 155/115 H 05/03/24 14:50 Pulse Oximetry 99 05/03/24 14:50 Oxygen Delivery Room Air 05/03/24 14:50 Temperature 99.9 F H 05/03/24 14:50 Pulse Rate 85 05/03/24 19:22 Respiratory Rate 23 H 05/03/24 16:34 Blood Pressure 179/110 H 05/03/24 16:34 Pulse Oximetry 98 05/03/24 16:34 Oxygen Delivery Room Air 05/03/24 16:33 MDM - Chest Pain MDM Narrative Medical decision making narrative: This is a 28-year-old male who presents to the ED for chief complaint of headache and viral symptoms including body aches. Vitals show elevated blood pressure and mildly elevated temperature. Lab work shows normal white count on the CBC. CMP shows elevated blood sugar but otherwise unremarkable. Viral swabs are negative, however symptoms are certainly consistent with a flu-like illness. Chest x-ray is negative. The ECG shows no acute ischemic findings. Troponin is negative. Presentation consistent with viral syndrome. Patient was given fluids, Toradol and antiemetics for the headaches. He states this was helping a little bit but he is still having a moderate headache. We added Reglan, magnesium and acetaminophen with good relief. Patient will be discharged in stable condition. Supportive measures discussed and return precautions given. Patient is understanding and agreeable with plan for discharge with PCP follow-up. Lab Data 05/03/24 14:48 05/03/24 14:48 Labs: Lab Results 05/03/24 05/03/24 05/03/24 Range/Units 14:48 16:56 19:02 WBC 4.6 (4.5-10.0) K/mm3 RBC 5.52 (4.6-6.20) M/mm3 Hgb 16.6 (14.0-18.0) g/dL Hct 44.6 (42.0-52.0) % MCV 80.8 (80-100) fl MCH 30.1 (26-34) pg MCHC 37.2 H (32-36) g/dl RDW 12.2 (11.5-14.5) % Plt Count 216 (150-375) k/mm3 MPV 9.2 (7.4-10.4) fl Immature Gran % (Auto) 0.6 H (0-0.5) % Neut % (Auto) 75.3 H (45.5-73.1) % Lymph % (Auto) 13.9 L (18.3-44.2) % [place] % (Auto) 8.9 H (2.6-8.5) % Eos % (Auto) 0.9 (0-4.4) % Baso % (Auto) 0.4 (0.2-1.2) % Lymph # (Auto) 0.64 L (0.9-3.2) K/mm3 [place] # (Auto) 0.4 (0.1-0.6) K/mm3 Eos # (Auto) 0.0 (0-0.3) K/mm3 Baso # (Auto) 0.0 (0.0-0.1) K/mm3 Abs Immat Gran (auto) 0.03 (0.00-0.031) K/mm3 Absolute Neuts (auto) 3.5 (1.3-6.7) K/mm3 Absolute Nucleated RBC 0.000 (0.0-0.012) K/mm3 Nucleated RBC % 0.0 (0.0-0.2) % PT 12.8 (11.1-14.7) Seconds INR 0.9 APTT 24.1 (22.3-36.8) Seconds Sodium 132 L (137-145) mmol/L Potassium 4.0 (3.4-5.0) mmol/L Chloride 103 (98-107) mmol/L Carbon Dioxide 23 (22-30) mmol/L Anion Gap 6 (4-12) mmol/L BUN 14 (9-20) mg/dL Creatinine 0.70 (0.7-1.3) mg/dL Estim Creat Clear Calc 260 ml/min Estimated GFR > 60 (59 - ) Glucose 253 H (65-110) mg/dL Calcium 9.0 (8.4-10.2) mg/dL Total Bilirubin 1.6 H (0.2-1.3) mg/dL AST 35 (17-59) U/L ALT 62 H (6-50) U/L Alkaline Phosphatase 105 (38-126) U/L Troponin I < 0.012 < 0.012 (0.000-0.034) ng/mL Total Protein 8.0 (6.3-8.2) g/dL Albumin 4.3 (3.5-5.1) g/dL Lipase 56 (23-300) U/L Influenza A (RT-PCR) Negative (Negative) Influenza B (RT-PCR) Negative (Negative) RSV (RT-PCR) Negative (Negative) SARS-CoV-2 RNA (RT-PCR) Negative (Negative) ECG Data EKG #1: ECG completion date: 05/03/24 ECG completion time: 19:09 Interpretation: Sinus rhythm Rate 78 Normal QRS Normal QTC No acute ischemic findings Discharge Plan Discharge Clinical Impression: Acute viral syndrome Patient Disposition: Home, Self-Care Condition: Stable Instructions: Antibiotic Form Additional Instructions: Your exam and imaging today are reassuring overall. This is most likely a viral syndrome and should pass on its own over the next week. Continue with Tylenol and ibuprofen every 6 hours as needed for headaches or fevers. If you have any new or worsening symptoms please return to the ER for further evaluation. Patient Language: Tajik Prescriptions: No Action duloxetine 60 mg Capsule,Delayed Release(Dr/Ec) 60 mg PO DAILY clindamycin HCl 300 mg capsule 300 mg PO Q6H 7 Days Qty: 28 0RF carvedilol 25 mg Tablet 25 mg PO BID indapamide 2.5 mg Tablet 2.5 mg PO DAILY lisinopril 5 mg Tablet 5 mg PO DAILY Humulin R U-500 (Conc) Kwikpen 500 unit/mL (3 mL) Insulin Pen 1 unit SUBCUT DIRECTED ondansetron HCl 4 mg tablet 4 mg PO Q4H Qty: 10 0RF Rx Instructions: 1st dose 1-2 hr before radiation cephalexin 500 mg capsule 500 mg PO Q8H 7 Days Qty: 21 0RF clotrimazole 1 % cream 1 applic topical BID 56 Days Qty: 15 0RF Follow-up/Referrals: PHYSICIAN,CHECKING DEPARTMENT SUPERVISOR [Primary Care Provider] - Time of Disposition: 19:07
[2024-05-03] MEDS: SODIUM CHLORIDE 0.9% IV 1,000 ML 999 ML IV CONT (17:19)
[2024-05-03] MEDS: KETOROLAC 30 MG/ML VIAL (*BKC) IV PUSH (17:19)
[2024-05-03] MEDS: ONDANSETRON INJ 4 MG/2 ML VIAL IV PUSH (17:19)
[2024-05-03 17:37] LABS: Influenza A QL RT-PCR Negative (Negative); Influenza B QL RT-PCR Negative (Negative); RSV RNA, RT-PCR Negative (Negative); SARS-CoV-2 RNA PCR Negative (Negative)
[2024-05-03] MEDS: METOCLOPRAMIDE HCL INJ 10 MG/2 ML VIAL IV PUSH (18:24)
[2024-05-03] MEDS: ACETAMINOPHEN 500 MG TABLET 1000 MG PO (18:24)
[2024-05-03] MEDS: MAGNESIUM SULF 1 GM/D5W 100 ML 1 GM/100 ML BAG IVPB (18:24)
[2024-05-03] MEDS: diphenhydrAMINE HCl INJ 50 MG/ML VIAL 25 MG IV PUSH (18:24)
--- NOTE | 2024-05-03 18:54 | ECG_ITS ---
Test Date: 2024-05-03 19:09:36 Measurements Intervals [place] Rate: 78 P: 17 NH: 172 QRS: 22 QRSD: 121 T: 19 QT: 387 QTc: 441 Interpretive Statements SINUS RHYTHM Compared to ECG 05/03/2024 14:42:22 No significant changes Electronically Signed On 05-04-2024 18:23:22 SALES AND MARKETING ASSISTANT by Debbi Tavarez M.D.
[2024-05-03 19:22] VITALS: PULSE 85
[2024-05-03 19:28] LABS: Troponin I < 0.012 ng/mL (0.000-0.034)
--- OUTSIDE RECORDS SUMMARY | 2024-05-10 17:12 | XMS_ITS | Encounter Summary ---
Author Organization [facility] Address [address] [place] [address] [place] [address] Care Team Providers Care Value Stream Manager Name Role Phone Unavailable Primary Care Provider Unavailabl e Encounter Details Date Type Department Care Team (Late st Contact Info) Description 09/18/2013 Abstract [facility] Emergency Room [address] [place] [address] Dequan Taylor Jr., MD [facility] [address] [address] Social History Tobacco Use Types Packs/Day Years Used Date Smoking Tobacco: Never Assessed Sex and Gender Information Value Date Recorded Sex Assigned at Not on file Legal Sex Male 8:14 PM CDT Gender Identity Not on file Sexual Orientation Not on file documented as of this encounter Plan of Treatment Not on file documented as of this encounter Visit Diagnoses Diagnosis Open wound of finger Open wound of finger(s) , without mention of complication documented in this encounter
--- OUTSIDE RECORDS SUMMARY | 2024-05-10 17:12 | XMS_ITS | Referral Summary ---
Author Organization [facility] Address [address] [place] [address] Care Team Providers Care Drying Frame Operator Name Role Phone Unavailable Primary Care Provider Unavailabl e Source Comments [facility],non-owned Affiliates and Associated Physician Practices is amultiple site organization consisting of ambulatory clinics and hospital sitesin [place], [place], [place] and [place]. This disclosure is being madepursuant to the Care Everywhere program and may not contain all information available regarding this patient. Last updated 18.[facility] Allergies No known active allergies Medications * Be aware that medications may not be up to date on this document. Alwaysverify current medications with the patient. Medication Sig Dispensed Refills Start Date End Date Status tiZANidine (Zanaflex) 4 MG tablet Take 1 (one) tablet by mouth every 8 hours as needed for Muscle Spasms 20 tablet 10/22/2022 Active lidocaine (Lidoderm) 5 % patch Apply 1 (one) patch to skin once daily Apply patch to most painful area and remove after 12 hours. May reapply a new patch 12 hours later. 15 patch 10/22/2022 Active Social History Tobacco Use Types Packs/Day Years Used Date Smoking Tobacco: Never Assessed Sex and Gender Information Value Date Recorded Sex Assigned at Not on file Gender Identity Not on file Sexual Orientation Not on file Last Filed Vital Signs Vital Sign Reading Time Taken Comments Blood Pressure 116/83 10/22/2022 4:16 PM CDT Pulse 80 10/22/2022 4:16 PM CDT Temperature 36.7 ??C (98 ??F) 10/22/2022 4:16 PM CDT Respiratory Rate 20 10/22/2022 4:16 PM CDT Oxygen Saturation 98% 10/22/2022 4:16 PM CDT Inhaled Oxygen Concentration - - Weight 174.6 kg (385 lb) 10/22/2022 1:08 PM CDT Height 205.7 cm (6' 9 ) 10/22/2022 1:08 PM CDT Body Mass Index 41.26 10/22/2022 1:08 PM CDT Plan of Treatment Not on file [id number] N Workers Comp Employer [address] [place] [address] Geraldo Velez Workers Comp Self 1995 [address] [place] [address]
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
--- OUTSIDE RECORDS SUMMARY | 2024-05-10 17:12 | XMS_ITS | Clinical Summary ---
Author Organization [facility] [employer] Address [address] [place] [address] Care Team Providers Care Automotive Sales Professional Name Role Phone Unavailable Primary Care Provider Unavailabl e Source Comments [facility] [employer],non-owned Affiliates and Associated Physician Practices is amultiple site organization consisting of ambulatory clinics and hospital sitesin [place], [place] and [place]. This disclosure is being madepursuant to the Care Everywhere program and may not contain all information available regarding this patient. Last updated 18.[employer] Allergies No known active allergies Medications * [...] 10/22/2022 1:08 PM CDT Plan of Treatment Health Maintenance Due Date Last Done Comments HIV SCREENING 2012 HPV VACCINE (1 - Male 3-dose series) 2012 HEPATITIS C SCREENING 12/24/2015 DTAP/TDAP/TD VACCINES (1 - Tdap) 2016 HEPATITIS B VACCINE (1 of 3 - 19+ 3-dose series) 2016 DEPRESSION SCREENING 05/06/2023 COVID-19 VACCINE (3 - 2023-2 5 season) 2024 05/25/2021, 05/04/2021 INFLUENZA VACCINE (#1) 2024 , 03/06/2019, 02/15/2015 ZOSTER VACCINE (1 of 2) 12/29/2047 HIB VACCINE Aged Out No longer eligi ble based on patient's age to complete this topic MENINGOCOCCAL VACCINE Aged Out No winnie liliya eligible based on patient's age to complete this topic PNEUMOCOCCAL VACCINE Aged Out No long er eligible based on patient's age to complete this topic [id number] N Workers Comp Employer 1995 [id number] [place] [address] [employer] V[employer] Workers Comp Self 1995 [address] [place] [address]
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
--- OUTSIDE RECORDS SUMMARY | 2024-05-10 17:12 | XMS_ITS | Encounter Summary ---
Author Organization [facility] [place] Address [facility] [place] [address] [place] [address] Care Team Providers Care Forging Die Sinker Name Role Phone None, Provider Primary Care Provider Unavaila ble Reason for Referral * Imaging (Emergency) - Closed Specialty Diagnoses / Procedures Referred By Contac t Referred To Contact RADIOLOGY Procedures CT CERV SPINE WO CON Lydia Ortiz NP Referral ID Status Reason Start Date Expiration Date Visits Re quested Visits Authorized [id number] Closed 11/29/2018 12/31/2019 1 1 * Imaging (Emergency) - Closed Specialty Diagnoses / Procedures Referred By Contac t Referred To Contact RADIOLOGY Procedures CT HEAD WO CON Lydia Ortiz NP Referral ID Status Reason Start Date Expiration Date Visits Re quested Visits Authorized [id number] Closed 11/29/2018 12/31/2019 1 1 Reason for Visit * Reason Comments Syncope Neck Pain Encounter Details Date Type Department Care Team (Late st Contact Info) Description 11/29/2018 7:21 PM CDT - 11/29/2018 10:09 PM CDT Emergency [facility] [place] [address] Syncope; Neck Pain Discharge Disposition: Home or Self Care (Routine Discharge) Social History Tobacco Use Types Packs/Day Years Used Date Smoking Tobacco: Never Smokeless Tobacco: Never Alcohol Use Standard Drinks/Week Comments No 0 (1 standard drink = 0.6 oz pur e alcohol) AUDIT-C Answer Date Recorded Frequency of Alcohol Consumption Never 11/29/2018 Average Number of Drinks Not on file 019 Frequency of Binge Drinking Not on file 11/04 Sex and Gender Information Value Date Recorded Sex Assigned at Not on file Legal Sex Male 8:14 PM CDT Gender Identity Not on file Sexual Orientation Not on file documented as of this encounter Last Filed Vital Signs Vital Sign Reading Time Taken Comments Blood Pressure 151/93 11/29/2018 9:30 PM CDT Pulse 88 11/29/2018 9:30 PM CDT Temperature 36.7 ??C (98 ??F) 11/29/2018 7:34 PM CDT Respiratory Rate 16 11/29/2018 9:30 PM CDT Oxygen Saturation 97% 11/29/2018 9:30 PM CDT Inhaled Oxygen Concentration - - Weight 220.8 kg (486 lb 12.4 oz) 11/29/2018 8:29 PM CDT Height 200.7 cm (6' 7 ) 11/29/2018 7:34 PM CDT Body Mass Index 54.84 11/29/2018 7:34 PM CDT documented in this encounter Discharge Instructions * Discharge Instructions* Lydia Ortiz NP - 11/29/2018 9:43 PM CDT Follow-up with your doctor or with your doctor in 1 to 2 weeks for reevaluation Be sure to aggressively hydrate yourself when you are working outside Take medication as directed Return to ER if worsening dizziness, nausea vomiting, fever, or new persistent symptoms * Attachments The following attachments cannot be sent through Care Everywhere. * Syncope (Fainting) (French) documented in this encounter ED Notes * Viki Snider RN - 11/29/2018 9:22 PM CDT Removed c collar per Dr. Walton.VIKI SNIDER RN * Lydia Ortiz NP - 11/29/2018 8:19 PM CDT Chief Complaint Chief Complaint Patient presents with ??? Syncope ??? Neck Pain History of Present Illness CC: Syncope and Neck Pain Cristi Velez is a 22-year-old male who presents to ED syncope and collapse at work. Pt reports working outside, talking to his co-worker and just passed out. No dizziness, no blurred vision, no n/v/d. No extremity weakness. Pt states ate food ~ 30min prior to passing out. HX: morbid obesity, HTN, left vent hypertrophy No Known Allergies PCP: Provider MD [facility] Medical History ALLERGIES: No Known Allergies MEDICATIONS: Prior to Admission medications Not on File PAST MEDICAL HISTORY: Past Medical History: Diagnosis Date ??? Hypertension ??? Left ventricular hypertrophy PAST SURGICAL HISTORY: History reviewed. No pertinent surgical history. FAMILY HISTORY: No family history on file. SOCIAL HISTORY: Social History Tobacco Use ??? Smoking status: Never Smoker ??? Smokeless tobacco: Never Used Substance Use Topics ??? Alcohol use: No Frequency: Never ??? Drug use: No Review of Systems Review of Systems Neurological: Positive for syncope. All other systems reviewed and are negative. Physical Exam Filed Vitals: 11/29/18 1942 11/29/18 2029 11/29/18 2118 11/29/18 2130 BP: (!) 165/95 (!) 151/93 Pulse: 89 88 Resp: 14 16 Temp: TempSrc: SpO2: 97% 97% Weight: (!) 220.8 kg (486 lb 12.4 oz) (!) 220.8 kg (486 lb 12.4 oz) Height: Physical Exam Constitutional: He is oriented to person, place, and time. He appears well- developed and well-nourished. Morbidly obese HENT: Head: Normocephalic. Nose: Nose normal. Mouth/Throat: No oropharyngeal exudate. Eyes: Conjunctivae and EOM are normal. Pupils are equal, round, and reactive to light. Neck: Normal range of motion. Neck supple. No JVD present. No tracheal deviation present. No thyromegaly present. No mid spine tenderness Has active ROM to all directions Cardiovascular: Normal rate, regular rhythm and normal heart sounds. Exam reveals no friction rub. No murmur heard. Pulmonary/Chest: Effort normal and breath sounds normal. No stridor. No respiratory distress. Abdominal: Soft. He exhibits no distension. There is no tenderness. There is no guarding. Musculoskeletal: Normal range of motion. Has active ROM to upper / lower extremities No pronated arm drift Lymphadenopathy: He has no cervical adenopathy. Neurological: He is alert and oriented to person, place, and time. Normal gait NIH score:0 Skin: Skin is warm and dry. Capillary refill takes less than 2 seconds. Nursing note and vitals reviewed. Diagnostic Studies / Procedures ELECTROCARDIOGRAMS: Results for orders placed or performed during the hospital encounter of 11/29/18 [address] [facility] [address] Test Date: 2018-11-29 Pat Name: CRISTI VELEZ Department: Room: [id number] Gender: Male Assistant Department Manager: roberta : 1995 Requested By: LYDIA ORTIZ Order Number: [id number] Reading MD: Measurements Intervals [place] Rate: 89 P: 31 AL: 184 QRS: 20 QRSD: 113 T: 12 QT: 367 QTc: 447 Interpretive Statements SINUS RHYTHM INFERIOR MYOCARDIAL INFARCTION, PROBABLY OLD No previous ECG available for comparison LABORATORY STUDIES: Results for orders placed or performed during the hospital encounter of 11/29/18 CBC W/DIFF AUTOMATED Result Value Ref Range WBC 6.1 4.5 - 13.0 x10'3/uL RBC 5.25 4.70 - 6.10 x10'6/uL HGB 15.1 14.0 - 18.0 G/DL HCT 44.3 43.0 - 54.0 % MCV 84.4 80.0 - 94.0 FL MCH 28.8 27.0 - 31.0 PG MCHC 34.1 32.0 - 36.0 G/DL RDW 12.2 11.5 - 14.5 % PLT 307 130 - 400 x10'3/uL MPV 9.9 9.3 - 12.2 FL DIFFERENTIAL TYPE AUTOMATED DIFFERENTIAL NEUTROPHILS 57.9 % LYMPHOCYTES 30.0 % MONOCYTES 7.9 % EOSINOPHILS 3.5 % BASOPHILS 0.5 % IMMATURE GRANS 0.2 % ABS. NEUTROPHILS TOTAL 3.52 1.80 - 8.00 x10'3/uL ABS. LYMPHOCYTES 1.82 1.20 - 5.20 x10'3/uL ABS. MONOCYTES 0.48 0.30 - 0.82 x10'3/uL ABS. EOSINOPHILS 0.21 0.04 - 0.54 x10'3/uL ABS. BASOPHILS 0.03 0.01 - 0.08 x10'3/uL ABS. IMMATURE GRANULOCYTES 0.01 0.00 - 0.49 x10'3/uL COMPREHENSIVE METABOLIC PANEL Result Value Ref Range GLUCOSE 130 (H) 70 - 99 MG/DL BUN 12 7 - 18 MG/DL CREATININE 1.24 0.7 - 1.3 MG/DL SODIUM 142 136 - 145 MMOL/L POTASSIUM 4.0 3.5 - 5.1 MMOL/L CHLORIDE 110 (H) 100 - 108 MMOL/L CO2 24.3 21 - 32 MMOL/L CALCIUM 8.9 8.5 - 10.1 MG/DL TOTAL BILIRUBIN 0.4 0.2 - 1.2 MG/DL TOTAL PROTEIN 7.8 6.4 - 8.2 G/DL ALBUMIN 4.0 3.4 - 5.0 G/DL AST 61 (H) 15 - 37 U/L ALT 121 (H) 16 - 60 U/L ALK PHOS 85 50 - 136 U/L ANION GAP 7.7 5 - 15 MMOL/L BUN CREATININE RATIO 9.7 6 - 26 A/G RATIO 1.1 1.0 - 2.0 RATIO eGFR Non-Afr. Amer. 83 (L) >90 ML/MIN/1.73 M2 eGFR Afr. Amer. >90 >90 ML/MIN/1.73 M2 CK (CPK) Result Value Ref Range CPK 383 (H) 35 - 232 U/L URINALYSIS WI REFLEX TO CULTURE Result Value Ref Range Specimen Type URINE CLEAN CATCH COLOR YELLOW TRANSPARENCY CLEAR Specific [place] (U) 1.023 1.001 - 1.030 U PH 6.0 5.0 - 9.0 LEUKOCYTE ESTERASE NEGATIVE NEGATIVE NITRITES NEGATIVE NEGATIVE PROTEIN, URINE NEGATIVE <30 MG/DL URINE GLUCOSE NEGATIVE NEGATIVE MG/DL U KETONES NEGATIVE NEGATIVE MG/DL UROBILINOGEN NEGATIVE NEGATIVE MG/DL Urine Bilirubin NEGATIVE NEGATIVE MG/DL BLOOD NEGATIVE NEGATIVE CULTURE & SENSITIVITY INDICATED? CULTURE IS NOT INDICATED SQUAMOUS EPITHELIALS MODERATE /LPF WBC/HPF <1 <6 /HPF RBC/HPF <1 <6 /HPF TROPONIN, QUANT Result Value Ref Range TROPONIN I <0.015 <0.045 ng/mL. IMAGING STUDIES CT CERV SPINE WO CON Final Result by User, [id number] (11/29 2124) Examination: CT Cervical Spine Without Contrast Clinical History: Syncope, fall, pain Comparison: None DATE/TIME: 11/29/2018 8:54 PM Technique: Axial, coronal and sagittal unenhanced imaging of the cervical spine was performed. A dose lowering technique was used for this procedure, which may include, but is not limited to, dose reduction techniques, automated exposure control, the use of a iterative reconstruction, and ALARA (as low as reasonably achievable)/image gently techniques. 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 Alignment otherwise unremarkable without evidence of traumatic malalignment. No acute fracture is identified. Vertebral body heights are maintained. Soft tissues are unremarkable. Impression: No acute fracture or traumatic malalignment of the cervical spine. Interpreted By: Vishnu Ardon MD, 11/29/2018 9:[address] HEAD WO CON Final Result by User, [email or web address] (11/29 2122) EXAMINATION: CT of the head CLINICAL HISTORY: Syncope COMPARISON: None TECHNIQUE: CT examination of the head without contrast was performed with axial images obtained. A radiation dose lowering technique was used for this procedure, which may include, but is not limited to, dose reduction technique, automated exposure control, the use of iterative reconstruction, ALARA (As Low As Reasonably Achievable) techniques, and Image Gently techniques. FINDINGS: There is no evidence of acute intracranial hemorrhage, abnormal extra-axial collections, intracranial mass effect, or midline shift. The ventricles and extra-axial/subarachnoid spaces are unremarkable. The wolff-white matter differentiation is grossly preserved. There is no definite CT evidence to suggest acute territorial infarction. The calvarium is unremarkable, without evidence of fracture. Mucus retention cysts in the maxillary sinuses. The visualized mastoid air cells, paranasal sinuses, and orbits are otherwise grossly unremarkable. IMPRESSION: No definite CT evidence for acute intracranial abnormality. Please note that CT is not sensitive for the detection of acute ischemia. Interpreted By: Vishnu Ardon MD, 11/29/2018 9:19 PM DDX: heat exhaustion, dehydration, vasovagal, electrolyte imbalance, arrhythmia, hypoglycemia, anemia, TIA/Stroke, SAB, head bleed, other ED Course / Medical Decision Making VSs, no fever EKG: SR 89, no acute STEMI CK: elevated (383) CMP: elevated liver enz AST (61), ALT (121) UA: normal Trop: negative CBC: Normal CT head: no acute findings CT C spine: negative Pt reports feeling better after IV fluid - ?due to dehydration Pt presents to ED c/o syncope and collapse at work. Physical / neuro exam unremarkable w/ NIH score of 0 Pt is morbidly obese w/ hx of HTN, but no fever and hemodynamically stable. Lab reviewed w/ mildly elevated ck (383) - ?heat exhaustion from dehydration. Pt treated with IV fluid w/ improvement in sxs. CBC and CMP all unremarkable w/ negative trop Not sure cause of syncope and collapse, but instructed pt to f/u with PCP for reevaluation and to aggressively hydrate self when working outside. Otherwise pt stable for discharge Discharge?? Pt discharged with instructions and medications. Pt is amenable to plan, expresses understanding, and all questions were answered. I also discussed return precautions with them and the importance of appropriate follow up care. Clinical Impression Syncope, unspecified syncope type (Primary) Disposition: Discharge Lydia Ortiz NP 11/30/18 0209 Cosigned by Juliocesar Walton MD at 11/30/2018 6:52 AM CDT * Viki Snider RN - 11/29/2018 7:31 PM CDT Pt to the ed via ems after a syncopal episode episode while working outside in the heat. Pt c/o neck pain and lt sided and frontal head pain. Pt stating the room is spinning.VIKI SNIDER RN * Alma Light RN - 11/29/2018 7:21 PM CDT Bed: 13 Expected date: 11/29/18 Expected time: 7:16 PM Means of arrival: Comments: [id number] documented in this encounter Plan of Treatment Not on file documented as of this encounter Procedures Procedure Name Priority Date/Time Associated Diagnosis Comments ECG 12-LEAD STAT 11/29/2018 9:[address] HEAD WO CON STAT 11/29/2018 9:[address] CERV SPINE WO CON STAT 11/29/2018 9:07 PM CDT URINALYSIS WI REFLEX TO CULTURE STAT 11/29/2018 8:38 PM CDT COMPREHENSIVE METABOLIC PANEL STAT 11/29/2018 8:38 PM CDT CBC W/DIFF AUTOMATED STAT 11/29/2018 8:38 PM CDT TROPONIN, QUANT STAT 11/29/2018 8:38 PM CDT CK (CPK) STAT 11/29/2018 8:38 PM CDT documented in this encounter Results * ECG 12 lead (11/29/2018 9:14 PM CDT) 11/29/2018 9:14 PM CDT N[facility]ative [facility] - 11/30/2018 8:20 AM CDT ?[place] [facility] ? [address] [place] ? Test Date: ?2018-11-29 Pat Name: ? CRISTI VELEZ ? Department: ? Room: ? [id number] Gender: ? Male ? Assistant Department Manager: ?? ev : ?1995 ? Requested By: LYDIA BONDS Order Number: [id number] ? Reading MD: ?? Blair Muller ? Measurements Intervals ?[place] ? Rate: ? 89 ? P: ?31 AL: ? 184 ?QRS: ?20 QRSD: ? 113 ?T: ?12 QT: ? 367 ? QTc: ?447 ? Interpretive Statements SINUS RHYTHM IVCD. INFERIOR MYOCARDIAL INFARCTION, PROBABLY OLD No previous ECG available for comparison No ischemic changes CRITICAL ALERT ISSUED ON 11-29-2018 21:21:55 Procedure Note Blair Muller MD - 11/30/[address] [facility] Test Date: 2018-11-29 Pat Name: CRISTI VELEZ Department: Room: [id number] Gender: Male Assistant Department Manager: ev : 1995 Requested By: SONU Order Number: [id number] Reading MD: Blair Muller Measurements Intervals [place] Rate: 89 P: 31 AL: 184 QRS: 20 QRSD: 113 T: 12 QT: 367 QTc: 447 Interpretive Statements SINUS RHYTHM IVCD. INFERIOR MYOCARDIAL INFARCTION, PROBABLY OLD No previous ECG available for comparison No ischemic changes CRITICAL ALERT ISSUED ON 11-29-2018 21:21:55 Lydia Ortiz [employer] ECG ORDERABLES Final Re sult [facility] RAD * CT CERV SPINE WO CON (11/29/2018 9:07 PM CDT) Anatomical Region Laterality Modality Spine Computed Tomogra phy 11/29/2018 9:22 PM CDT Impressions 11/29/2018 9:24 PM CDT Impression: No acute fracture or traumatic malalignment of the cervical spine. ?? Interpreted By: Vishnu Ardon MD, 11/29/2018 9:22 PM Narrative 11/29/2018 9:24 PM CDT Examination: CT Cervical Spine Without Contrast Clinical History: Syncope, fall, pain Comparison: None DATE/TIME: 11/29/2018 8:54 PM Technique: Axial, coronal and sagittal unenhanced imaging of the cervical spine was performed. ??A dose lowering technique was used for this procedure, which may include, but is not limited to, dose reduction techniques, automated exposure control, the use of a iterative reconstruction, and ALARA (as low as reasonably achievable)/image gently techniques. ?? 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 ??Alignment otherwise unremarkable without evidence of traumatic malalignment. ??No acute fracture is identified. ??Vertebral body heights are maintained. ??Soft tissues are unremarkable. ?? Procedure Note Vishnu Ardon MD - 11/29/2018 Examination: CT Cervical Spine Without Contrast Clinical History: Syncope, fall, pain Comparison: None DATE/TIME: 11/29/2018 8:54 PM Technique: Axial, coronal and sagittal unenhanced imaging of the cervicalspine was performed. A dose lowering technique was used for thisprocedure, which may include, but is not limited to, dose reductiontechniques, automated exposure control, the use of a iterativereconstruction, and ALARA (as low as reasonably achievable)/image gentlytechniques. 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 Alignment otherwiseunremarkable without evidence of traumatic malalignment. No acutefracture is identified. Vertebral body heights are maintained. Softtissues are unremarkable. Impression: No acute fracture or traumatic malalignment of the cervical spine. Interpreted By: Vishnu Ardon MD, 11/29/2018 9:22 PM us Lydia Ortiz BELT KNIFE FEEDER CT Final Re sult * CT HEAD WO CON (11/29/2018 9:07 PM CDT) Anatomical Region Laterality Modality Head Computed Tomogra phy 11/29/2018 9:19 PM CDT Impressions 11/29/2018 9:21 PM CDT IMPRESSION: No definite CT evidence for acute intracranial abnormality. Please note that CT is not sensitive for the detection of acute ischemia. Interpreted By: Vishnu Ardon MD, 11/29/2018 9:19 PM Narrative 11/29/2018 9:21 PM CDT EXAMINATION: CT of the head CLINICAL HISTORY: Syncope COMPARISON: None TECHNIQUE: CT examination of the head without contrast ??was performed with axial images obtained. ??A radiation dose lowering technique was used for this procedure, which may include, but is not limited to, dose reduction technique, automated exposure control, the use of iterative reconstruction, ALARA (As Low As Reasonably Achievable) techniques, and Image Gently techniques. FINDINGS: There is no evidence of acute intracranial hemorrhage, abnormal extra-axial collections, intracranial mass effect, or midline shift. The ventricles and extra-axial/subarachnoid spaces are unremarkable. The wolff-white matter differentiation is grossly preserved. There is no definite CT evidence to suggest acute territorial infarction. The calvarium is unremarkable, without evidence of fracture. Mucus retention cysts in the maxillary sinuses. The visualized mastoid air cells, paranasal sinuses, and orbits are otherwise grossly unremarkable. Procedure Note Vishnu Ardon MD - 11/29/2018 EXAMINATION: CT of the head CLINICAL HISTORY: Syncope COMPARISON: None TECHNIQUE: CT examination of the head without contrast was performed withaxial images obtained. A radiation dose lowering technique was used forthis procedure, which may include, but is not limited to, dose reductiontechnique, automated exposure control, the use of iterativereconstruction, ALARA (As Low As Reasonably Achievable) techniques, andImage Gently techniques. FINDINGS: There is no evidence of acute intracranial hemorrhage, abnormalextra-axial collections, intracranial mass effect, or midline shift. Theventricles and extra-axial/subarachnoid spaces are unremarkable. Thegray-white matter differentiation is grossly preserved. There is nodefinite CT evidence to suggest acute territorial infarction. Thecalvarium is unremarkable, without evidence of fracture. Mucus retentioncysts in the maxillary sinuses. The visualized mastoid air cells,paranasal sinuses, and orbits are otherwise grossly unremarkable. IMPRESSION: No definite CT evidence for acute intracranial abnormality. Please note that CT is not sensitive for the detection of acuteischemia. Interpreted By: Vishnu Ardon MD, 11/29/2018 9:19 PM Lydia Ortiz BELT KNIFE FEEDER CT Final Re sult * TROPONIN, QUANT (11/29/2018 8:38 PM CDT) TROPONIN I <0.015 <0.045 ng/mL. 11/29/2018 9:21 PM CDT [facility] Comment: HIGH DOSES OF BIOTIN MAY INTERFERE WITH THIS TEST RESULT. CORRELATION TO CLINICAL HISTORY AND PRESENTATION RECOMMENDED. 11/29/2018 8:38 PM CDT Lydia Ortiz [employer] LABORATORY Final Re sult [facility] [address] [place] [address], [place] [phone] * URINALYSIS WI REFLEX TO CULTURE (11/29/2018 8:38 PM CDT) SPECIMEN TYPE URINE CLEAN CATCH 11/29/2018 8:31 PM CDT [facility] COLOR (U) YELLOW 11/29/2018 9:01 PM CDT [facility] TRANSPARENCY CLEAR 11/29/2018 9:01 PM CDT [facility] SPECIFIC GRAVITY (U) 1.023 1.001 - 1.030 11/29/2018 9:01 PM CDT [facility] U PH 6.0 5.0 - 9.0 11/29/2018 9:01 PM CDT [facility] LEUKOCYTES (U) NEGATIVE NEGATIVE 11/29/2018 9:01 PM CDT [facility] NITRITES NEGATIVE NEGATIVE 11/29/2018 9:01 PM CDT [facility] PROTEIN (U) NEGATIVE <30 MG/DL 11/29/2018 9:01 PM CDT [facility] URINE GLUCOSE NEGATIVE NEGATIVE MG/DL 11/29/2018 9:01 PM CDT [facility] KETONES MG/DL (U) NEGATIVE NEGATIVE MG/DL 11/29/2018 9:01 PM CDT [facility] UROBILINOGEN NEGATIVE NEGATIVE MG/DL 11/29/2018 9:01 PM CDT [facility] BILIRUBIN (U) NEGATIVE NEGATIVE MG/DL 11/29/2018 9:01 PM CDT [facility] BLOOD (U) NEGATIVE NEGATIVE 11/29/2018 9:01 PM CDT [facility] CULTURE & SENSITIVITY INDICATED? CULTURE IS NOT INDICATED 11/29/2018 9:01 PM CDT [facility] SQUAMOUS EPITHELIALS MODERATE /LPF 11/29/2018 9:01 PM CDT [facility] WBC/HPF <1 <6 /HPF 11/29/2018 9:01 PM CDT [facility] RBC/HPF <1 <6 /HPF 11/29/2018 9:01 PM CDT [facility] URINE SPECIMEN OBTAINED BY CLEAN CATCH PROCEDURE / Unknown 11/29/2018 8:38 PM CDT Lydia Ortiz [employer] URINE ORDERABLES Final R esult [facility] [address] [place] [address], [place] [phone] * (ABNORMAL) CK (CPK) (11/29/2018 8:38 PM CDT) CPK 383(H) 35 - 232 U/L 11/29/2018 9:15 PM CDT [facility] 11/29/2018 8:38 PM CDT us Lydia SunshineBonds [employer] LABORATORY Final Re sult [facility] [address] [place] [address], [place] [phone] * (ABNORMAL) COMPREHENSIVE METABOLIC PANEL (11/29/2018 8:38 PM CDT) Pathologist [facility] GLUCOSE 130(H) 70 - 99 MG/DL 11/29/2018 9:15 PM CDT [facility] BUN 12 7 - 18 MG/DL 11/29/2018 9:15 PM CDT [facility] CREATININE S/P/B 1.24 0.7 - 1.3 MG/DL 11/29/2018 9:15 PM CDT [facility] SODIUM S/P/B 142 136 - 145 MMOL/L 11/29/2018 9:15 PM CDT [facility] POTASSIUM S/P/B 4.0 3.5 - 5.1 MMOL/L 11/29/2018 9:15 PM CDT [facility] CHLORIDE S/P/B 110(H) 100 - 108 MMOL/L 11/29/2018 9:15 PM CDT [facility] CO2 24.3 21 - 32 MMOL/L 11/29/2018 9:15 PM CDT [facility] CALCIUM S/P/B 8.9 8.5 - 10.1 MG/DL 11/29/2018 9:15 PM CDT [facility] BILIRUBIN TOTAL S/P/B 0.4 0.2 - 1.2 MG/DL 11/29/2018 9:15 PM CDT [facility] TOTAL PROTEIN S/P/B 7.8 6.4 - 8.2 G/DL 11/29/2018 9:15 PM CDT [facility] ALBUMIN S/P/B 4.0 3.4 - 5.0 G/DL 11/29/2018 9:15 PM CDT [facility] AST 61(H) 15 - 37 U/L 11/29/2018 9:15 PM CDT [facility] ALT 121(H) 16 - 60 U/L 11/29/2018 9:15 PM CDT [facility] ALKALINE PHOSPHATASE S/P/B 85 50 - 136 U/L 11/29/2018 9:15 PM CDT [facility] ANION GAP 7.7 5 - 15 MMOL/L 11/29/2018 9:15 PM CDT [facility] BUN CREATININE RATIO 9.7 6 - 26 11/29/2018 9:15 PM T [facility] A/G RATIO 1.1 1.0 - 2.0 RATIO 11/29/2018 9:15 PM CDT [facility] EGFR NON-AFR. AMER. 83(L) >90 ML/MIN/1.7 3 M2 11/29/2018 9:15 PM T [facility] EGFR AFR. AMER. >90 >90 ML/MIN/1.7 3 M2 11/29/2018 9:15 PM T [facility] Comment: NOTE: eGFR is not calculated for patients <18 years of age. This is an estimated GFR (CKD EPI) and should not be used for calculating drug doses. 11/29/2018 8:38 PM CDT us Lydia Ortiz NP LABORATORY Final Re sult [facility] [address] [place] [address], [place] [phone] * CBC W/DIFF AUTOMATED (11/29/2018 8:38 PM CDT) WBC 6.1 4.5 - 13.0 x10'3/uL 11/29/2018 9:01 PM CDT [facility] RBC 5.25 4.70 - 6.10 x10'6/uL 11/29/2018 9:01 PM CDT [facility] HGB 15.1 14.0 - 18.0 G/DL 11/29/2018 9:01 PM CDT [facility] HCT 44.3 43.0 - 54.0 % 11/29/2018 9:01 PM CDT [facility] MCV 84.4 80.0 - 94.0 FL 11/29/2018 9:01 PM CDT [facility] MCH 28.8 27.0 - 31.0 PG 11/29/2018 9:01 PM CDT [facility] MCHC 34.1 32.0 - 36.0 G/DL 11/29/2018 9:01 PM CDT [facility] RDW 12.2 11.5 - 14.5 % 11/29/2018 9:01 PM CDT [facility] [facility] 307 130 - 400 x10'3/uL 11/29/2018 9:01 PM CDT [facility] MPV 9.9 9.3 - 12.2 FL 11/29/2018 9:01 PM CDT [facility] DIFFERENTIAL TYPE AUTOMATED DIFFERENTIAL 11/29/2018 9:01 PM CDT [facility] NEUTROPHILS % 57.9 % 11/29/2018 9:01 PM CDT [facility] LYMPHOCYTES % 30.0 % 11/29/2018 9:01 PM CDT [facility] MONOCYTES % 7.9 % 11/29/2018 9:01 PM CDT [facility] EOSINOPHILS 3.5 % 11/29/2018 9:01 PM CDT [facility] BASOPHILS 0.5 % 11/29/2018 9:01 PM CDT [facility] IMMATURE GRANS % 0.2 % 11/30/19 19 9:01 PM CDT [facility] ABS. NEUTROPHILS TOTAL 3.52 1.80 - 8.00 x10'3/uL 11/29/2018 9:01 PM CDT [facility] ABS. LYMPHOCYTES 1.82 1.20 - 5.20 x10'3/uL 11/29/2018 9:01 PM CDT [facility] ABS. MONOCYTES 0.48 0.30 - 0.82 x10'3/uL 11/29/2018 9:01 PM CDT [facility] ABS. EOSINOPHILS 0.21 0.04 - 0.54 x10'3/uL 11/29/2018 9:01 PM CDT [facility] ABS. BASOPHILS 0.03 0.01 - 0.08 x10'3/uL 11/29/2018 9:01 PM CDT [facility] ABS. IMMATURE GRANULOCYTES 0.01 0.00 - 0.49 x10'3/uL 11/29/2018 9:01 PM CDT [facility] 11/29/2018 8:38 PM CDT us Lydia Ortiz [facility] Final Re sult [facility] [address] [place] [address], documented in this encounter Visit Diagnoses Diagnosis Syncope, unspecified syncope type- Primary documented in this encounter Administered Medications Inactive Administered Medications - up to 3 most recent administrations Medication Order MAR Action Action Date Dose Rate Site sodium chloride 0.9% bolus infusion SOLN 1,000 mL 1,000 mL, Intravenous, Administer over 15 Minutes, Bolus (Once), 1 dose, On 11/29/18 at 2030 New Bag 11/29/2018 8:30 PM CDT 1,000 mLs documented in this encounter Active and Recently Administered Medications Times are shown in CDT. Scheduled Medication Order 11/27/2018 11/28/2018 11/29/2018 sodium chloride 0.9% bolus infusion SOLN 1,000 mL (COMPLETED) 1,000 mL, Intravenous, Administer over 15 Minutes, Bolus (Once), 1 dose, On 11/29/18 at 2030 2029 (New Bag - Prov ider: Viki Snider RN)763 (Infusion Stop Time - Provider: Viki Snider RN) documented in this encounter Care Teams Forging Die Sinker Relationship Specialty Start Date End Date None, Provider, PCP - General 11/29/18 documented as of this encounter
--- OUTSIDE RECORDS SUMMARY | 2024-05-10 17:12 | XMS_ITS | Clinical Summary ---
Author Organization [facility] Address [facility] [place] [address] [place] [address] Care Team Providers Care Business Systems Manager Name Role Phone None, Provider MD Primary Care Provider Unavaila ble Allergies No known active allergies Social History Tobacco Use Types Packs/Day Years [...] Mass Index 54.84 11/29/2018 7:34 PM CDT Plan of Treatment Health Maintenance Due Date Last Done Comments Annual Physical 2000 HPV Vaccines (1 - Male 3-dos e series) 2012 Hepatitis C 12/29/2015 DTaP, Tdap and Td Vaccines ( 1 - Tdap) 2016 Hepatitis B Vaccines (1 of 3 - 19+ 3-dose series) 2016 COVID-19 Vaccine (2023-2 5 season) 2024 Influenza Adult (#1) 2024 Meningococcal Vaccine Aged Out No winnie liliya eligible based on patient's age to complete this topic Pneumococcal Vaccine: Pediat rics (0 to 5 Years) and At-Risk Patients (6 to 64 Years) Aged Out No longer eligible b ased on patient's age to complete this topic RSV Immunizations Under 20 Months Aged Out No longer eligible based on patient's age to complete this topic Insurance [employer] Care Teams Business Systems Manager Relationship Specialty Start Date End Date None, Provider, PCP - General 11/29/18
--- OUTSIDE RECORDS SUMMARY | 2024-05-10 17:13 | XMS_ITS | Encounter Summary ---
Author Organization [facility] Address [address] [place] [address] Phone Care Team Providers Care Straw Hat Presser Name Role Phone Mariana Monique MD Unavailable [phone] [facility] Primary [facility] Provider Reason for Visit * Reason Onset Date Comments Dexcom G7 sensor PA 03/22/2023 Encounter Details Date Type Department Care Team (Late st Contact Info) Description 03/22/2023 Telephone [facility] Scheduling [address] [place] [address] Jenifer Tamez Dexcom G7 sensor PA Social History Tobacco Use Types Packs/Day Years Used Date Smoking Tobacco: Never Smokeless Tobacco: Former Chew Quit: 01/13/2019 Alcohol Use Standard Drinks/Week Comments Not Currently 0 (1 standard drink = 0.6 oz pur e alcohol) Social Connection and Isolat ion Panel [NHANES] Answer Date Recorded In a typical week, how many times do you talk on the phone with family, friends, or neighbors? More than three times a week 11/26/2021 How often do you get togethe r with friends or relatives? More than three times a week 11/26/2021 How often do you attend chur ch or confucianism services? Never 11/26/2021 Do you belong to any clubs o r organizations such as congregation groups, unions, fraternal or athletic groups, or school groups? No 11/26/2021 How often do you attend meet ings of the clubs or organizations you belong to? Never 11/26/2021 Are you , , di vorced, , never , or living with a partner? Living with partner 11/26/2021 Overall Financial Resource Strain (CARDIA) Answe r Date Recorded How hard is it for you to pa y for the very basics like food, housing, medical care, and heating? Not hard at all 11/26/2021 Hunger Vital Sign Answer Date Recorded Within the past 12 months, y ou worried that your food would run out before you got the money to buy more. Never true 11/27/19 22 Within the past 12 months, t he food you bought just didn't last and you didn't have money to get more. Never true 11/26/2021 PRAPARE - Transportation Answer Date Re corded In the past 12 months, has l ack of transportation kept you from medical appointments or from getting medications? No 11/04 In the past 12 months, has l ack of transportation kept you from meetings, work, or from getting things needed for daily living? No 11/26/2021 Personal Safety Answer Date Recorded Have you ever been in or are you currently in a harmful physical or emotional relationship or is someone making you feel afraid or unsafe? 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 Per office PA disregarded as pt needs to re-establish care with provider. TRICIAN SHOP * Telephone Encounter - Jenifer Tamez - 03/22/2023 1:52 PM CST [place]: [id number] Dexcom g7 sensor [employer]--[id number] Status: approved Coverage start date: 03/22/2023 Coverage end date: 05/22/2023 [place]: [id number] Mounjaro 2.5MG/0.5ML [employer]--[id number] Status:approved Coverage start date: 03/22/2023 Coverage end date: 03/22/2024 TRICIAN SHOP documented in this encounter Plan of Treatment Not on file documented as of this encounter Visit Diagnoses Not on filedocumented in this encounter Care Teams Straw Hat Presser Relationship Specialty Start Date End Date Keila Jimenez MD [address] [place] [address] PCP - General 10/29/21 Mariana Monique MD [address] [place] [address] Referring Physician Internal Medicine 01/17/20 documented as of this encounter
--- OUTSIDE RECORDS SUMMARY | 2024-05-10 17:13 | XMS_ITS | Encounter Summary ---
Author Organization [facility] Address [address] [place] [address] Phone Care Team Providers Care Laundry Attendant Name Role Phone Mariana Monique MD Unavailable [phone] [facility] Primary [facility] Provider Encounter Details Date Type Department Care Team (Latest Contact Info) Description 03/22/2022 2:00 PM SOCIAL SERVICES DESIGNEE Office Visit [facility] Endocrinology Metabolism and Lipid [address] [facility] [address] 5th [place] [address] [place] [address] Peter Styles Jr., MD [address] [place] [address] Diabetic ketoacidosis without coma associated with type 2 diabetes mellitus (CMS/HCC) (HCC) (Primary Dx) Social History Tobacco Use Types Packs/Day Years Used Date Smoking Tobacco: Never Smokeless Tobacco: Former Chew Quit: 01/13/2019 Tobacco Cessation:Counseling Given: Not Answered Alcohol Use Standard Drinks/Week Comments Not Currently [...] often do you attend chur ch or uatsdin services? Never 11/26/2021 Do you belong to any clubs o r organizations such as orthodox groups, unions, fraternal or athletic groups, or [...] things needed for daily living? 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 Not on file Not on file documented as of this encounter Last Filed Vital Signs Vital Sign Reading Time Taken Comments Blood Pressure 166/98 03/22/2022 1:42 PM SOCIAL SERVICES DESIGNEE Pulse 85 03/22/2022 1:42 PM SOCIAL SERVICES DESIGNEE Temperature 36.3 ??C (97.4 ??F) 03/22/2022 1:42 PM CS T Respiratory Rate - - Oxygen Saturation - - Inhaled Oxygen Concentration - - Weight 187.3 kg (413 lb) 03/22/2022 1:42 PM SOCIAL SERVICES DESIGNEE Height 205.7 cm (6' 9 ) 03/22/2022 1:42 PM SOCIAL SERVICES DESIGNEE Body Mass Index 44.26 03/22/2022 1:42 PM SOCIAL SERVICES DESIGNEE documented in this encounter Patient Instructions * Patient Instructions* Peter Styles Jr., MD - 03/22/2022 2:00 PM SOCIAL SERVICES DESIGNEE There are 2 apps from [employer]. One runs the dexcom itself and the other is DexTelestream Clarity. This giveanalyses of glucose levels. Please download the dexcom Clarity fabiola. Your target range is 70-150. Increase your U500 to 25 units (120 units) three times daily with meals. Observe thew values over1 week. Increase to 30 if you are not within the target. We will call you about the Dexcom connection. The DexTelestream Clarity fabiola is cluttered. Look at the ambulatory glucose profile. We will check out Ozempic and other competitors. AL SERVICES DESIGNEE AL SERVICES DESIGNEE AL SERVICES DESIGNEE documented in this encounter Ordered Prescriptions Prescription Sig Dispense Quantity Refills Last Filled Start Date End Date pen needle, diabetic 32 gauge x 5/32 needle Use as directed three times a day 100 each 03/23/2022 3 insulin regular U-500 (HumuLIN R) 500 unit/mL (3 mL) CONCENTRATED pen for injection Inject 150 Units under the skin 3 (three) times a day 27 mL 11 03/23/2022 3 documented in this encounter Progress Notes * Peter Styles Jr., MD - 03/22/2022 2:00 PM CST Chief Complaint: Type 2 diabetes with insulin resistance and acanthosis nigricans. 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 The original episode was at diagnosis about 2 years ago and the most recent 11-24-21. The cause ofthe most recent DKA is not known, but the A1c was 10.9%, down from values of <6% previously and insurance change might have been an issue. The patient states that he is now covered including a large amount of insulin. However he was discharged on bottled U500 and syringes, which might represent an insurance problem with high doses. The DKA episodes may represent both insulin resistance and insulin deficiency. He was started on Ozempic at diagnosis and took it for a month without problems butthen stopped. He tolerated metformin but is now off. He uses a Dexcom with most values in the 200s and no values less than 100. He is currently taking U500 20 units (100 units) TID with meals. A syringe and bottle is used. U100 admelog 28 units TID with meals. U100 insulin pen is used. The patient has been using a Dexcom on his phone but is not connected to our system. He described a recent episode of a panic attack, at this time also his blood pressure was 70/30 he was taken to the hospital. He was started on anxiety medicine and has not had any recurrent episodes. The time of the episode, he was working approximately 90 hours per week and was very stressed. Physical Exam: Constitutional: Vital signs were reviewed in the electronic medical record today. Oriented and alert. Patient appears well. Skin: Severe acanthosis nigricans on knuckles, elbows, in axillae. Eyes: Pupils equal, round. EOMs intact. No Graves??? ophthalmopathy. ENT: Normal mouth and pharynx. Hearing grossly normal. Thyroid: Normal size (25 g) without nodules or neck adenopathy. Chest: Lungs clear to auscultation. Heart: Faint heart sounds. Normal S1 and S2. RSR without murmur. No edema. GI: Nontender and obese. Liver and spleen not palpable. No bruits heard or aneurysm palpated. Musculoskeletal: 5/5+ strength in upper and lower extremities. Ingrown toenail on first left toe with redness around rim. He has normal sensation in the feet. Neurologic: No focal findings. DTRs 2+ and symmetrical. Pseudomyotonia is absent. Laboratory: 07-10-17: ALT 89, acute hepatitis panel negative 03-04-19: Total cholesterol 206, triglycerides 1274, HDL 17, LDL direct 39, anti-DARREN undetectable. 03-08-19: IGF-1 101 (225-500), creatinine 0.84, insulin antibodies not detectable, Hgb 15.6, urine albumin/creatinine 59 (<30) 03-19-19: A1c 7.9%, glucose (postprandial) 120. 05-27-19: ALT 69, AST 41, bili 0.3, albumin 4.7, sodium 141, potassium 3.9, creatinine 0.9, glucose 94. 7: A1c 6.8% 06-02-20: A1c 11.5% 10/13/2020: A1c 5.6% 11-22-21: A1c 10.9% 03-22-22. A1c 10.9% Assessment and Plan: Type 2 diabetes mellitus without complication, with long-term current use of insulin ([facility]) Patient seems to have both insulin resistance and at least relative insulin deficiency with predisposition to DKA. A C-peptide during the first episode of DKA was 11.2 (elevated). The DKA may be exacerbated by his weight and increased free fatty acid flux. Anti-DARREN and insulin antibodies were negative. He has an up-to-date urine microalbumin which was normal but no eye appointment yet. He has hadtriglyceridemia up to 1999 associated with DKA. On rosuvastatin 20 and lisinopril 20 mg. Increase U500 to 125 units TID (25 units on U100 syringe). We will represcribe U500 in pens. Increase further based on Dexcom. Fabiola is currently used for assessing effects of foods rather than more desired purpose of optimizing insulin. Connect Dexcom to our system tomorrow (new Dexcom starting). Has Dexcom fabiola on phone. Download the dexcom clarity fabiola. Start Ozempic 0.25 mg. Obesity The patient has had the phrase BMI>50 carried through the chart, but a BMI on 05-25-20 at diagnosis was 43.4 and the current BMI is 44.3. This is class 3 obesity. Treatment with GLP-1 agonist will be used. Elevated LFTs Consistently elevated ALT on laboratory studies at diagnosis, but now normal ALT with alk phos of 142. RTC 3 months. AL SERVICES DESIGNEE documented in this encounter Plan of Treatment Not on file documented as of this encounter Procedures Procedure Name Priority Date/Time Associated Diagnosis Comments POCT HEMOGLOBIN A1C Routine 03/22/2022 2 :20 PM SOCIAL SERVICES DESIGNEE Diabetic ketoacidosis without coma associated with type 2 diabetes mellitus (CMS/HCC) (HCC) POCT GLUCOSE 78817 Routine 03/22/2022 1: 53 PM SOCIAL SERVICES DESIGNEE Diabetic ketoacidosis without coma associated with type 2 diabetes mellitus (CMS/HCC) (HCC) documented in this encounter Results * POCT hemoglobin A1c (03/22/2022 2:20 PM SOCIAL SERVICES DESIGNEE) Hemoglobin A1C, POC 10.9 Blood 03/22/2022 2:20 PM SOCIAL SERVICES DESIGNEE Peter Styles Jr., MD POINT OF CARE TEST OR DERABLES Final Result * POCT glucose (03/22/2022 1:53 PM SOCIAL SERVICES DESIGNEE) Glucose Blood, POC 210 mg/dL Blood 03/22/2022 1:53 PM SOCIAL SERVICES DESIGNEE Peter Styles Jr., MD POINT OF CARE TEST OR DERABLES Final Result documented in this encounter Visit Diagnoses Diagnosis Diabetic ketoacidosis without coma associated with type 2 diabetes mellitus (CMS/HCC) (HCC)- Primary documented in this encounter Historical Medications * This list may reflect changes made after this encounter. Dexcom G6 Transmitter device USE TO CONTINUALLY MONITOR GLUCOSE CHANGE EVERY 90 DAYS 01/30/2022 Dexcom G6 Sensor device USE TO CONTINUALLY MONITOR GLUCOSE, CHANGE EVERY 10 DAYS 03/08/2022 3 added in this encounter Care Teams Laundry Attendant Relationship Specialty Start Date End Date Keila Jimenez MD [address] [place] [address] PCP - General 10/29/21 Mariana Monique MD [address] [place] [address] Referring Physician Internal Medicine 01/17/20 documented as of this encounter
--- OUTSIDE RECORDS SUMMARY | 2024-05-10 17:13 | XMS_ITS | Encounter Summary ---
Author Organization [facility] Address [address] [place] [address] Phone Care Team Providers Care Band Machine Operator Name Role Phone Mariana Monique MD Unavailable [facility] Primary Care Provider Reason for Visit * Reason Onset Date Comments appointment and medication 03/10/2024 Encounter Details Date Type Department Care Team (Late st Contact Info) Description 03/10/2024 Telephone [facility] Endocrinology Metabolism and Lipid [address] [facility] [address] [place] [address] Denia Albert RN appointment and medication Social History Tobacco Use Types Packs/Day Years [...] often do you attend chur ch or confucianist services? 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 on file Not on file documented as of this encounter Miscellaneous Notes * Telephone Encounter - Denia Albert RN - 03/10/2024 5:35 PM INSOLE ROUNDER [employer] message sent to the patient to schedule a return appointment before medications are refilled or PA is being processed since it has been a year since his last visit [facility] contacted and told that the PA will not be processed until the patient is seen He has no showed 01/09/2024 09/26/2023 06/06/2023 03/14/2023 Cancelled 11/21/2023 LE ROUNDER documented in this encounter Plan of Treatment Not on file documented as of this encounter Visit Diagnoses Not on filedocumented in this encounter Care Teams Band Machine Operator Relationship Specialty Start Date End Date Keila Jimenez MD [address] [place] [address] PCP - General 10/29/21 Mariana Monique MD [address] [place] [address] Referring Physician Internal Medicine 01/17/20 documented as of this encounter
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
--- OUTSIDE RECORDS SUMMARY | 2024-05-10 17:13 | XMS_ITS | Encounter Summary ---
Author Organization [facility] Healthcare Address [address] [place] [address] Care Team Providers Care Photographic Artist Name Role Phone Mariana Monique MD Unavailable [phone] [facility] Primary Care Provider Reason for Visit * Reason Comments Hyperglycemia Encounter Details Date Type Department Care Team (Late st Contact Info) Description 11/12/2022 4:50 PM CDT - 11/12/2022 9:45 PM CDT Emergency [facility] Emergency Department [address] [place] [address] Discharge Disposition: Left without being seen Social History Tobacco Use Types Packs/Day Years [...] often do you attend chur ch or worship services? 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 Not on file Not on file documented as of this encounter Last Filed Vital Signs Vital Sign Reading Time Taken Comments Blood Pressure 152/88 11/12/2022 8:25 PM CDT Pulse 79 11/12/2022 8:25 PM CDT Temperature 36.7 ??C (98.1 ??F) 11/12/2022 8:25 PM CD T Respiratory Rate 18 11/12/2022 8:25 PM CDT Oxygen Saturation 100% 11/12/2022 8:25 PM CDT Inhaled Oxygen Concentration - - Weight 197.3 kg (435 lb) 11/12/2022 4:51 PM CDT Height 205.7 cm (6' 9 ) 11/12/2022 4:51 PM CDT Body Mass Index 46.61 11/12/2022 4:51 PM CDT documented in this encounter Medications at Time of Discharge blood-glucose meter,continuous (Dexcom G7 Corporate Travel Consultant) miscIndications:Type 2 diabetes mellitus without complication, with long-term current use of insulin ([facility]) ([facility]) Use to continually monitor glucose 1 each 3 carvediloL (COREG) 25 mg tablet Take 1 tablet (25 mg total) by mouth 2 (two) times a day with meals 180 tablet 3 2 Dexcom G6 Transmitter device USE TO CONTINUALLY MONITOR GLUCOSE CHANGE EVERY [address] (CYMBALTA) 60 mg capsuleIndications:An xiety with Depression Take 1 capsule (60 mg total) by mouth daily 90 capsule 1 2 fenofibrate nanocrystallized (TRICOR) 145 mg tablet Take 1 tablet (145 mg total) by mouth daily 30 tablet 11 2 glucagon 1 mg injection 0 omega-3 fatty acids (LOVAZA) 1 gram capsule Take 2 capsules (2 g total) by mouth 2 (two) times a day 120 capsule 11 2 blood-glucose sensor (Dexcom G7 Sensor) deviceIndications:Typ e 2 diabetes mellitus without complication, with long-term current use of insulin ([facility]) ([facility]) Use to continually monitor glucose, change every 10 days 9 each 3 3 03/22/20 23 insulin lispro (HumaLOG, ADMELOG) 100 unit/mL pen for injection Inject 25 Units under the skin 3 (three) times a day with meals 15 mL 2 03/21/20 23 insulin regular U-500 (HumuLIN R) 500 unit/mL (3 mL) CONCENTRATED pen for injection Inject 150 Units under the skin 3 (three) times a day 27 mL 2 03/21/20 23 insulin regular U-500 (HumuLIN R) 500 unit/mL CONCENTRATED vial for injectionIndications: Diabetes Mellitus with Severe Insulin Resistance Inject 20 unit marking on U-100 syringe (100 Units total) under the skin 3 (three) times a day with meals 20 mL 11 2 03/21/20 23 lisinopriL (PRINIVIL,ZESTRIL) 20 mg tablet Take 1 tablet (20 mg total) by mouth daily 90 tablet 3 2 03/22/20 pen needle, diabetic (Pen Needle) 31 gauge x 5/16 needle Use to inject 1-4 times daily as directed 300 each 2 03/21/20 pen needle, diabetic 32 gauge x 5/32 needle Use as directed three times a day 100 each 2 03/21/20 rosuvastatin (CRESTOR) 20 mg tablet Take 1 tablet (20 mg total) by mouth nightly 30 tablet 11 2 03/22/20 semaglutide (OZEMPIC) 0.25 mg or 0.5 mg(2 mg/1.5 mL) pen injector injectionIndications: Type 2 diabetes mellitus without complication, with long-term current use of insulin (CMS/HCC) (HCC) Inject 0.25 mg SQ weekly for 2-4 weeks and then increase to 0.5 mg SQ weekly 4.5 mL 3 3 03/21/20 documented as of this encounter Discharge Disposition Disposition Code Departure Means Destination Left without being seen documented in this encounter ED Notes * Pauline Carballo RN - 11/12/2022 4:52 PM CDT Patient checked BS this morning and it was in the 600s. Took 30 units of insulin at 0715. Took 30 units of insulin at 1330 when he attempted to eat lunch. Still vomiting anything he eats up. BS 372 at this time. documented in this encounter Plan of Treatment Not on file documented as of this encounter Procedures Procedure Name Priority Date/Time Associated Diagnosis Comments POCT GLUCOSE DEVICE Routine 11/12/2022 7 :11 PM CDT EGFR STAT 11/12/2022 5:42 PM CDT DIFFERENTIAL AUTO STAT 11/12/2022 5:4 2 PM CDT URINALYSIS AND REFLEX TO MICROSCOPIC AND CULTURE STAT 11/12/2022 5:42 PM CDT CBC WITH AUTO DIFFERENTIAL STAT 11/12/2022 5:42 PM CDT URINALYSIS, MICROSCOPIC ONLY STAT 11/12/2022 5:42 PM CDT COMPREHENSIVE METABOLIC PANEL STAT 11/12/2022 5:42 PM CDT POCT GLUCOSE DEVICE Routine 11/12/2022 5 :31 PM CDT documented in this encounter Results * (ABNORMAL) POCT glucose (11/12/2022 7:11 PM CDT) [facility] Glucose, POC 341(H) 70 - 140 mg/dL [facility] Comment: For Glucose values <35 mg/dl when Hematocrit is >60 mg/dl,the test may not accurately detect significant hypoglycemia,and testing in the Laboratory should be considered if clinically indicated. Blood 11/12/2022 7:11 PM CDT 11/12/2022 7:11 PM CDT us Notinfile Unknown LAB POCT ORDERABLES - DEVICE F inal Result [facility] [address] Department [place] [address] * eGFR (11/12/2022 5:42 PM CDT) [facility] eGFR 88 mL/min/1. 73 m2 [facility] Comment: Interpretive Data Reference Interval Normal ?>/= [...] 5:42 PM CDT 11/12/2022 5:52 PM CDT Sal Licea MD LAB BLOOD ORDERABLES Fin al Result Performing Organization Address [facility] de Phone Number [facility] [address] Department of Laboratories [place], [place] [id number] * Urinalysis, microscopic only (11/12/2022 5:42 PM CDT) Pathologist [facility] WBC, ur 0-5 0 - 5 /HPF [facility] RBC, ur 0-2 0 - 2 /HPF [facility] Epithelial cells, squamous, ur 1-5 0 - 5 /HPF [facility] Culture Reflex Comment Reflex conditions for urine culture (WBC >10) not met. [facility] Urine, clean voided 11/12/2022 5:42 PM CDT 11/12/2022 5:52 PM CDT Sal Licea MD LAB URINE ORDERABLES Fin al Result Performing Organization Address [facility] Co de Phone Number [facility] [address] Department of Laboratories [place], [place] [id number] * Differential, auto (11/12/2022 5:42 PM CDT) Neutrophil abs 2.8 1.7 - 6.5 K/cumm [facility] Imm gran abs 0.0 0.0 - 0.1 K/cumm [facility] Lymphocyte abs 1.8 0.8 - 3.3 K/cumm [facility] Monocyte abs 0.3 0.2 - 0.8 K/cumm [facility] Eosinophil abs 0.2 0.0 - 0.5 K/cumm [facility] Basophil abs 0.0 0.0 - 0.1 K/cumm [facility] Neutrophil pct 53.8 % [facility] Comment: Interpretive Data Percent cell count reference ranges are not reported, since discordance with absolute values may lead to misinterpretation of CBC data. Current Interpretive Data was last revised on 2017. Imm gran pct 0.2 % [facility] Comment: Interpretive Data Percent cell count reference ranges are not reported, since discordance with absolute values may lead to misinterpretation of CBC data. Current Interpretive Data was last revised on 2017. Lymphocyte pct 35.9 % [facility] Comment: Interpretive Data Percent cell count reference ranges are not reported, since discordance with absolute values may lead to misinterpretation of CBC data. Current Interpretive Data was last revised on 2017. Monocyte pct 6.4 % [facility] Comment: Interpretive Data Percent cell count reference ranges are not reported, since discordance with absolute values may lead to misinterpretation of CBC data. Current Interpretive Data was last revised on 2017. Eosinophil pct 3.1 % [facility] Comment: Interpretive Data Percent cell count reference ranges are not reported, since discordance with absolute values may lead to misinterpretation of CBC data. Current Interpretive Data was last revised on 2017. Basophil pct 0.6 % [facility] Comment: Interpretive Data Percent cell count reference ranges are not reported, since discordance with absolute values may lead to misinterpretation of CBC data. Current Interpretive Data was last revised on 2017. Blood 11/12/2022 5:42 PM CDT 11/12/2022 5:52 PM CDT us Sal Licea MD LAB BLOOD ORDERABLES Fin al Result Performing Organization Address [facility]/ZIP Co de Phone Number [facility] [address] Department [place] [address] * (ABNORMAL) Urinalysis reflex to microscopic and culture Urine, clean voided (11/12/2022 5:42 PM CDT) Color, ur Yellow Yellow [facility] Clarity, ur Clear Clear [facility] Specific gravity, ur 1.030 1.003 - 1.030 [facility] pH, urine 6.0 [facility] Protein, ur ql 1+(A) Negative [facility] Glucose, ur ql 4+(A) Negative [facility] Ketones, ur Trace Negative [facility] Bilirubin, ur Negative Negative [facility] Blood, ur Negative Negative [facility] Urobilinogen, ur <2.0 <2.0 mg/dL [facility] Nitrite, ur Negative Negative [facility] Leukocyte esterase, ur Negative Negative [facility] UA reflex comment Reflex to microscopic UA will be performed. [facility] Urine, clean voided 11/12/2022 5:42 PM CDT 11/12/2022 5:52 PM CDT Narrative [facility] - 11/12/2022 6:04 PM CDT ?? Urine pH is affected by diet, medications, systemic acid-base disturbances, and renal tubular function. ??pH may affect urinary stone formation. ??For example, urine pH below 6.0 may help reduce the tendency for calcium phosphate stones and pH greater than 6.0 may reduce the tendency for uric acid stone formation. Source: [facility] [employer]. Last revised 05-16-2017 Sal Licea MD LAB MICROBIOLOGY - GENER AL ORDERABLES Final Result Performing Organization Address City/[facility]/ZIP Co de Phone Number [facility] [address] Department [place] [address] * (ABNORMAL) Comprehensive metabolic panel (11/12/2022 5:42 PM CDT) Sodium 130(L) 135 - 145 mmol/L [facility] Potassium, pl 4.8 3.3 - 4.9 mmol/L [facility] Comment:Hemolyzed; potassium value may be falsely elevated by as much as 0.3 - 0.5 mmol/L. Suggest redraw and reanalysis Chloride 95(L) 97 - 110 mmol/L [facility] CO2 23 22 - 32 mmol/L [facility] Anion gap 12 2 - 15 mmol/L [facility] BUN 16 6 - 25 mg/dL [facility] Creatinine 1.18 0.80 - 1.30 mg/dL [facility] Glucose 343(H) 70 - 199 mg/dL [facility] Comment: Interpretive Data Fasting glucose >/= 126 mg/dl is diagnostic for diabetes. ?? Fasting is defined as no caloric intake for at least 8 hours. Fasting glucose between 100 mg/dl to 125 mg/dl is diagnostic of prediabetes. In a patient with classic symptoms of hyperglycemia or hyperglycemic crisis, a random glucose >/= 200 mg/dl is diagnostic for diabetes. In the absence of unequivocal hyperglycemia, results should be confirmed by repeat testing. The classification and Diagnosis of Diabetes Diabetes Care 202; 46: S19-S40. Current interpretive data was last revised 2022. Calcium 9.7 8.5 - 10.3 mg/dL [facility] Bilirubin, total 0.2 0.1 - 1.2 mg/dL [facility] Protein, pl 7.0 6.5 - 8.5 g/dL [facility] Albumin 4.1 3.5 - 5.0 g/dL [facility] Alk phos 99 40 - 130 Units/L [facility] ALT 58(H) 7 - 55 Units/L [facility] AST 41 10 - 50 Units/L [facility] Comment:Slightly Hemolyzed S pecimen Blood 11/12/2022 5:42 PM CDT 11/12/2022 5:52 PM CDT us Sal Licea MD LAB BLOOD ORDERABLES Fin al Result [facility] [address] [place] [address] * (ABNORMAL) CBC with auto differential (11/12/2022 5:42 PM CDT) [facility] WBC 5.1 3.8 - 9.9 K/cumm [facility] Hgb 15.5 13.0 - 17.5 g/dL [facility] Hct 42.7 38.9 - 50.3 % [facility] Plt 270 150 - 400 K/cumm [facility] MPV 9.9 9.1 - 12.3 fL [facility] RBC 5.13 4.30 - 5.80 M/cumm [facility] MCV 83.2 81.3 - 96.4 fL [facility] MCH 30.2 27.1 - 33.3 pg [facility] MCHC 36.3(H) 32.3 - 35.7 g/dL [facility] RDW CV 12.0 11.1 - 14.9 % [facility] RDW SD 36.5 35.7 - 48.1 fL [facility] NRBC abs 0.00 0.00 - 0.01 K/cumm [facility] Blood 11/12/2022 5:42 PM CDT 11/12/2022 5:52 PM CDT us Sal Licea MD LAB BLOOD ORDERABLES Fin al Result [facility] [address] Department [place] [address] * (ABNORMAL) POCT glucose (11/12/2022 5:31 PM CDT) [facility] Glucose, POC 339(H) 70 - 140 mg/dL [facility] Comment: For Glucose values <35 mg/dl when Hematocrit is >60 mg/dl,the test may not accurately detect significant hypoglycemia,and testing in the Laboratory should be considered if clinically indicated. Blood 11/12/2022 5:31 PM CDT 11/12/2022 5:31 PM CDT us Notinfile Unknown LAB POCT ORDERABLES - DEVICE F inal Result [facility] [address] Department [place] [address] documented in this encounter Visit Diagnoses Not on filedocumented in this encounter Care Teams Photographic Artist Relationship Specialty Start Date End Date Keila Jimenez MD [address] [place], [place] [id number] PCP - General 10/29/21 Mariana Monique MD [address] [place], [place] [id number] Referring Physician Internal Medicine 01/17/20 documented as of this encounter
--- OUTSIDE RECORDS SUMMARY | 2024-05-10 17:13 | XMS_ITS | Encounter Summary ---
Author Organization [facility] Address [address] [place] [address] Phone Care Team Providers Care Child Welfare Consultant Name Role Phone Mariana Monique MD Unavailable [phone] [facility] Primary Care Provider Reason for Visit * Reason Onset Date Comments Hyperglycemia 11/12/2022 Encounter Details Date Type Department Care Team (Late st Contact Info) Description 11/12/2022 Telephone [facility] Endocrinology Metabolism and Lipid [address] [facility] 5[address] [place] [address] [place] [address] Denia Albert, RN Hyperglycemia Social History Tobacco Use Types Packs/Day Years [...] often do you attend chur ch or restorationist services? 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 Not on file Not on file documented as of this encounter Miscellaneous Notes * Telephone Encounter - Denia Albert RN - 11/12/2022 3:08 PM CDT The patient called today with several days of erratic blood glucose readings, mostly between 400-500 the past 1-2 days He has vomited 3 times today He does not have any ketone strips to test his urine He was advised to go to the ER for evaluation of probable DKA I will keep open the note to follow-up on his status documented in this encounter Plan of Treatment Not on file documented as of this encounter Visit Diagnoses Not on filedocumented in this encounter Care Teams Child Welfare Consultant Relationship Specialty Start Date End Date Keila Jimenez MD [address] [place] [address] PCP - General 10/29/21 Mariana Monique MD [address] [place] [address] Referring Physician Internal Medicine 01/17/20 documented as of this encounter
--- OUTSIDE RECORDS SUMMARY | 2024-05-10 17:13 | XMS_ITS | Encounter Summary ---
Author Organization [facility] Healthcare Address [address] [place] [address] Care Team Providers Care Stone Layer Name Role Phone Mariana Monique MD Unavailable [phone] Keila Jimenez MD Primary Care Provider Encounter Details Date Type Department Care Team (Late st Contact Info) Description 12/01/2021 Telephone [facility] Primary Care Medicine Clinic [address] [facility] [address] [facility] [address] [place] [address] Keila Jimenez MD [address] [facility] [address] [place] [address] Social History Tobacco Use Types Packs/Day Years [...] often do you attend chur ch or evangelical services? 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 Schedulers, if patient calls back, please schedule PHV. Jose Campoverde [phone] * Telephone Encounter - Jose Saavedra - 12/01/2021 5:18 PM CDT ----- Message from Xochilt Medina RN sent at 11/29/2021 12:48 PM CDT ----- Regarding: PHV This patient has recently been discharged from the hospital. Please schedule PHV. Nirali! Xochilt Campoverde documented in this encounter Plan of Treatment Not on file documented as of this encounter Visit Diagnoses Not on filedocumented in this encounter Care Teams Stone Layer Relationship Specialty Start Date End Date Keila Jimenez MD [address] [place] [address] PCP - General 10/29/21 Mariana Monique MD [address] [place], [place] [id number] Referring Physician Internal Medicine 01/17/20 documented as of this encounter
--- OUTSIDE RECORDS SUMMARY | 2024-05-10 17:13 | XMS_ITS | CONTINUITY OF CARE DOCUMENT ---
Author Name frankie david Address Unknown Organization [facility] Address [address] [place] [address] [address] [place] [address] Phone [phone] Care Team Providers Care Quad Stayer Name Role Phone Daniel CROWE, Татьяна Unavailable [phone] Татьяна Sanchez MD Unavailable DAHLIA CROWE, AKANKSHA Angel Unavailable [phone] INSURANCE [employer] Payer name Policy type / Coverage type [place] red libertarian ID [facility] SELF PAY
--- OUTSIDE RECORDS SUMMARY | 2024-05-10 17:13 | XMS_ITS | Encounter Summary ---
Author Organization [facility] Address [address] [place] [address] Phone Care Team Providers Care Oil Painter Name Role Phone Mariana Monique MD Unavailable [phone] [facility] Primary Care Provider Reason for Visit * Reason Onset Date Comments ozempic p/a 08/16/2022 Encounter Details Date Type Department Care Team (Late st Contact Info) Description 08/16/2022 Telephone [facility] Endocrinology Metabolism and Lipid [address] [facility] 13th [place] [address] [place] [address] Peter Styles Jr., MD [address] [place] [address] ozempic p/a Social History Tobacco Use Types Packs/Day Years [...] week 11/26/2021 How often do you attend [facility] or bahai services? 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 Pt is no longer on this med. * Telephone Encounter - Mai Montgomery RMA - 08/16/2022 11:05 AM CDT Called [id number] * Telephone Encounter - Jenifer Tamez - 08/16/2022 10:00 AM CDT [place]: [id number] Ozempic (0.25 or 0.5 MG/DOSE) 2MG/3ML pen-injectors [facility]--[id number] Status: approved Coverage Start Date:07/17/2022; Coverage End Date:08/16/2023 * Telephone Encounter - Mai Montgomery RMA - 08/16/2022 9:46 AM CDT Images from the original note were not included. documented in this encounter Plan of Treatment Not on file documented as of this encounter Visit Diagnoses Not on filedocumented in this encounter Care Teams Oil Painter Relationship Specialty Start Date End Date Keila Jimenez MD [address] [place] [address] PCP - General 10/29/21 Mariana Monique MD [address] [place] [address] Referring Physician Internal Medicine 01/17/20 documented as of this encounter
--- OUTSIDE RECORDS SUMMARY | 2024-05-10 17:13 | XMS_ITS | Encounter Summary ---
Author Organization [facility] Address [address] [place] [address] Phone Care Team Providers Care Windows Consultant Name Role Phone Mariana Monique MD Unavailable [phone] [facility] Provider Reason for Visit * Reason Onset Date Comments Prior auths 03/25/2023 Encounter Details Date Type Department Care Team (Late st Contact Info) Description 03/25/2023 Telephone [facility] Endocrinology Metabolism and Lipid [address] [facility] 5th [place] [address] [place] [address] Denia Albert RN Prior auths Social History Tobacco Use Types Packs/Day Years [...] often do you attend chur ch or sabianism services? 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 Not on file documented as of this encounter Ordered Prescriptions Prescription Sig Dispense Quantity Refills Last Filled Start Date End Date insulin aspart (NovoLOG) 100 unit/mL (3 mL) pen for injectionIndicatio ns:Type 2 diabetes mellitus without complication, with long-term current use of insulin ([facility]) ([facility]) Inject 36 Units SQ under the skin 3 (three) times a day before meals 105 mL 1 03/25/2023 11/12/2023 documented in this encounter Miscellaneous Notes * Telephone Encounter - Denia Albert RN - 03/26/2023 9:30 AM SAFETY SPECIALIST [employer] message sent to the patient on the Mounjaro and Dexcom PA approval TY SPECIALIST * Telephone Encounter - Jenifer Tamez - 03/25/2023 2:38 PM CST Please see previous encounter, these have already been approved TY SPECIALIST * Telephone Encounter - Denia Albert RN - 03/25/2023 2:12 PM SAFETY SPECIALIST Images from the original note were not included. Multiple PA's #1 Dexcom G7 #2 Mounjaro #3 Changed Humalog insulin to Novolog due to Humalog not being covered under the patient's insurance formulary (done) TY SPECIALIST TY SPECIALIST documented in this encounter Plan of Treatment Not on file documented as of this encounter Visit Diagnoses Diagnosis Type 2 diabetes mellitus without complication, with long-term current use of insulin ([facility]) ([facility])- Primary documented in this encounter Discontinued Medications Medication Sig Discontinue Reason Start Date End Da te insulin lispro (HumaLOG) 200 unit/mL (3 mL) pen for injectionIndications:Typ e 2 diabetes mellitus without complication, with long-term current use of insulin ([facility]) ([facility]) Inject 0.18 mL (36 Units total) under the skin 3 (three) times a day before meals Formulary change 03/21/2023 03/25/2023 documented as of this encounter Care Teams Windows Consultant Relationship Specialty Start Date End Date Keila Jimenez MD [address] [place] [address] PCP - General 10/29/21 Mariana Monique MD [address] [place] [address] Referring Physician Internal Medicine 01/17/20 documented as of this encounter
--- OUTSIDE RECORDS SUMMARY | 2024-05-10 17:13 | XMS_ITS | Encounter Summary ---
Author Organization [facility] Address [address] [place] [address] Phone Care Team Providers Care Video News Editor Name Role Phone Mariana Monique MD Unavailable [phone] [facility] Primary Care Provider Encounter Details Date Type Department Care Team (Latest Contact Info) Description 03/21/2023 3:00 PM CAFETERIA SERVER Office Visit [facility] Endocrinology Metabolism and Lipid [address] [facility] 5th [place] [address] [place] [address] Peter Styles Jr., MD [address] [place] [address] Type 2 diabetes mellitus without complication, with long-term current use of insulin (CMS/HCC) (HCC) (Primary Dx); Insulin resistance; Class 3 severe obesity with serious comorbidity and body mass index (BMI) of 45.0 to 49.9 in adult, unspecified obesity type (HCC); DM (diabetes mellitus), type 2 with complications (CMS/HCC) (HCC) Social History Tobacco Use Types Packs/Day Years [...] often do you attend chur ch or quaker services? 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 Not on file Not on file documented as of this encounter Last Filed Vital Signs Vital Sign Reading Time Taken Comments Blood Pressure 141/92 03/21/2023 2:40 PM CAFETERIA SERVER Pulse 88 03/21/2023 2:40 PM CAFETERIA SERVER Temperature 36.7 ??C (98.1 ??F) 03/21/2023 2:40 PM CS T Respiratory Rate - - Oxygen Saturation - - Inhaled Oxygen Concentration - - Weight 188.2 kg (415 lb) 03/21/2023 2:40 PM CAFETERIA SERVER Height 205.7 cm (6' 9 ) 03/21/2023 2:40 PM CAFETERIA SERVER Body Mass Index 44.47 03/21/2023 2:40 PM CAFETERIA SERVER documented in this encounter Patient Instructions * Patient Instructions* Peter Styles MD - 03/21/2023 3:00 PM CAFETERIA SERVER You need more insulin. Please raise U500 to 140 units twice daily. (We will order pens. The dialed is the dose received) Please raise Humalog to 35 units three times daily with meals. The dose dialed is the dose received Please use your phone with NiteTables Send us a CARGOBR message Saturday. TERIA SERVER TERIA SERVER documented in this encounter Ordered Prescriptions Prescription Sig Dispense Quantity Refills Last Filled Start Date End Date blood-glucose sensor (Dexcom G7 Sensor) deviceIndications: Type 2 diabetes mellitus without complication, with long-term current use of insulin ([facility] ([facility]) Use to continually monitor glucose, change every 10 days 9 each 3 03/22/2023 lisinopriL (PRINIVIL,ZESTRIL) 20 mg tabletIndications: Type 2 diabetes mellitus without complication, with long-term current use of insulin ([facility]) ([facility]) Take 1 tablet (20 mg total) by mouth daily 90 tablet 3 03/22/2023 rosuvastatin (CRESTOR) 20 mg tabletIndications: Type 2 diabetes mellitus without complication, with long-term current use of insulin ([facility]/HCC) ([facility]) Take 1 tablet (20 mg total) by mouth nightly 30 tablet 11 03/22/2023 pen needle, diabetic (Pen Needle) 31 gauge x 09/18 needleIndications: Type 2 diabetes mellitus without complication, with long-term current use of insulin ([facility]/HCC) ([facility]) Use to inject 5-6 times daily as directed 600 each 3 03/21/2023 insulin regular U-500 (HumuLIN R) 500 unit/mL (3 mL) CONCENTRATED pen for injectionIndicatio ns:Type 2 diabetes mellitus without complication, with long-term current use of insulin (CMS/HCC) ([facility]) Inject 200 Units under the skin 2 (two) times a day Please follow doses prescribed by your physician. 72 mL 3 03/21/2023 4 insulin lispro (HumaLOG) 200 unit/mL (3 mL) pen for injectionIndicatio ns:Type 2 diabetes mellitus without complication, with long-term current use of insulin (CMS/HCC) ([facility]) Inject 0.18 mL (36 Units total) under the skin 3 (three) times a day before meals 48.6 mL 3 03/21/2023 3 tirzepatide (MOUNJARO) 2.5 mg/0.5 mL pen injectorIndication s:Type 2 diabetes mellitus without complication, with long-term current use of insulin (CMS/HCC) ([facility]) Inject 0.5 mL (2.5 mg total) under the skin every 7 days We want to increase this every month if you have no problems with it. 2 mL 1 03/21/2023 4 documented in this encounter Progress Notes * Peter Styles MD - 03/21/2023 3:00 PM CST Chief Complaint: Type 2 diabetes with insulin resistance and acanthosis nigricans. History of Present Illness: The patient has ketosis-prone type 2 diabetes and has had good control in the past but over the last 2 years this has deteriorated and he has gone to [facility] twice over the last few months for high glucose, which was lowered before discharging him. He does not feel well and has missed work. He has run out of some medications. Current treatment: U500 100 units TID with meals. (Bottles and syringes with 100 units=20 units on the syringe). Humalog 28 units TID with meals On this regimen he has glucoses 200-400 and has never had glucose less than 70. He has taken full doses of Ozempic and tolerated it well but it has . Insulin antibodies are not present and GAD65 is negative. Previous History: The patient has insulin-resistant type 2 diabetes with 2 episodes of DKA. The original episode was at diagnosis about 2 years ago and the most recent 11-24-21. The cause of the most recent DKA is not known, but [...] took it for a month without problems but then stopped. He tolerated metformin but is now off. He uses a Dexcom with most values in the 200s and no values less than 100. He described a recent episode of a [...] 141, potassium 3.9, creatinine 0.9, glucose 94. 11-19-19: A1c 6.8% 06-02-20: A1c 11.5% 10/13/2020: A1c 5.6% 11-22-21: A1c 10.9% 03-22-22. A1c 10.9% 03-21-23: A1c 11.5% Assessment and Plan: Type 2 diabetes mellitus with severe insulin resistance. Patient seems to have both insulin resistance and at least relative insulin deficiency with predisposition to DKA. A C-peptide during the first episode of DKA was 11.2 (elevated). The DKA may be exacerbated by his weight and increased free fatty acid flux. Anti-DARREN and insulin antibodies were negative. He has had triglyceridemia up to 1999 associated with DKA. On rosuvastatin 20 and lisinopril 20 mg, but these have recently lapsed. Increase U500 to 100 ->140 units BiD. Prescription is for pens, not bottles. Rosuvastatin and lisinopril represcribed. Dexcom placed today. Dexcom7 sensors ordered from local pharmacy. Uses Dexcom mario on phone now connected to us. Start Mounjaro 2.5 mg Patient will MyChart us early next week for likely insulin increases. Obesity The patient has had the phrase BMI>50 carried through the chart, but a BMI on 05-25-20 at diagnosis was 43.4 and the current BMI is 44.3. This is class 3 obesity. Treatment with tirzepatide will be used. Elevated LFTs Consistently elevated ALT on laboratory studies at diagnosis, but now normal ALT with alk phos of 142. RTC 2 months. TERIA SERVER documented in this encounter Plan of Treatment Not on file documented as of this encounter Procedures Procedure Name Priority Date/Time Associated Diagnosis Comments POCT HEMOGLOBIN A1C Routine 03/21/2023 2 :48 PM CAFETERIA SERVER Type 2 diabetes mellitus without complication, with long-term current use of insulin ([facility]) ([facility]) POCT GLUCOSE 26248 Routine 03/21/2023 2: 47 PM CAFETERIA SERVER Type 2 diabetes mellitus without complication, with long-term current use of insulin ([facility]) ([facility]) documented in this encounter Results * POCT hemoglobin A1c (03/21/2023 2:48 PM CAFETERIA SERVER) Hemoglobin A1C, POC 11.5 % Blood 03/21/2023 2:48 PM CAFETERIA SERVER us Peter Styles Jr., MD POINT OF CARE TEST OR DERABLES Final Result * POCT glucose (03/21/2023 2:47 PM CAFETERIA SERVER) Glucose Blood, POC 205 mg/dL Blood 03/21/2023 2:47 PM CAFETERIA SERVER us Peter Styles Jr., MD POINT OF CARE TEST OR DERABLES Final Result documented in this encounter Visit Diagnoses Diagnosis Type 2 diabetes mellitus without complication, with long-term current use of insulin ([facility]) ([facility])- Primary Insulin resistance Other abnormal glucose Class 3 severe obesity with serious comorbidity and body mass index (BMI) of 45.0 to 49.9 in adult, unspecified obesity type ([facility]) DM (diabetes mellitus), type 2 with complications ([facility]) ([facility]) Type II or unspecified type diabetes mellitus with unspecified complication, not stated as uncontrolled documented in this encounter Discontinued Medications Medication Sig Discontinue Reason Start Date End Da te insulin aspart protamine-insulin aspart 70/30 (NovoLOG 70/30) 100 unit/mL pen for injection Inject 20 Units under the skin 03/21/2023 insulin regular U-500 (HumuLIN R) 500 unit/mL CONCENTRATED vial for injectionIndications:Di abetes Mellitus with Severe Insulin Resistance Inject 20 unit marking on U-100 syringe (100 Units total) under the skin 3 (three) times a day with meals 11/27/2021 03/21/2023 pen needle, diabetic 32 gauge x 5/32 needle Use as directed three times a day 03/23/2022 03/21/2023 insulin lispro (HumaLOG, ADMELOG) 100 unit/mL pen for injection Inject 25 Units under the skin 3 (three) times a day with meals 11/27/2021 03/21/2023 insulin regular U-500 (HumuLIN R) 500 unit/mL (3 mL) CONCENTRATED pen for injection Inject 150 Units under the skin 3 (three) times a day 03/23/2022 03/21/2023 semaglutide (OZEMPIC) 0.25 mg or 0.5 mg(2 mg/1.5 mL) pen injector injectionIndications:Ty pe 2 diabetes mellitus without complication, with long-term current use of insulin ([facility]) ([facility]) Inject 0.25 mg SQ weekly for 2-4 weeks and then increase to 0.5 mg SQ weekly 08/15/2022 03/21/2023 pen needle, diabetic (Pen Needle) 31 gauge x 5/16 needle Use to inject 1-4 times daily as directed 02/04/2022 03/21/2023 rosuvastatin (CRESTOR) 20 mg tablet Take 1 tablet (20 mg total) by mouth nightly Reorder 11/27/2021 03/22/2023 lisinopriL (PRINIVIL,ZESTRIL) 20 mg tablet Take 1 tablet (20 mg total) by mouth daily Reorder 06/19/2021 03/22/2023 blood-glucose sensor (Dexcom G7 Sensor) deviceIndications:Type 2 diabetes mellitus without complication, with long-term current use of insulin ([facility] ([facility]) Use to continually monitor glucose, change every 10 days Reorder 08/15/2022 03/22/2023 documented as of this encounter Historical Medications * This list may reflect changes made after this encounter. paliperidone (Invega Sustenna) 117 mg/0.75 mL syringe Inject 0.75 mL (117 mg total) into the muscle as instructed 03/11/2023 insulin aspart protamine-insuli n aspart 70/30 (NovoLOG 70/30) 100 unit/mL pen for injection Inject 20 Units under the skin 3 added in this encounter Care Teams Video News Editor Relationship Specialty Start Date End Date Keila Jimenez MD [address] [place] [address] PCP - General 10/29/21 Mariana Monique MD [address] [place] [address] Referring Physician Internal Medicine 01/17/20 documented as of this encounter
--- OUTSIDE RECORDS SUMMARY | 2024-05-10 17:13 | XMS_ITS | Encounter Summary ---
Author Organization [facility] Address [address] [place] [address] Phone Care Team Providers Care Blind Aide Name Role Phone Mariana Monique MD Unavailable [phone] [facility] Primary [facility] Provider Encounter Details Date Type Department Care Team (Late st Contact Info) Description 08/05/2022 Telephone [facility] Endocrinology Metabolism and Lipid [address] [facility] 5th [place] [address] [place] [address] Denia Albert RN Social History Tobacco Use Types Packs/Day Years [...] often do you attend chur ch or gnosticist services? 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 Not on file Not on file documented as of this encounter Ordered Prescriptions Prescription Sig Dispense Quantity Refills Last Filled Start Date End Date blood-glucose meter,continuous (Dexcom G7 [employer] Salesperson) miscIndications:Ty pe 2 diabetes mellitus without complication, with long-term current use of insulin ([facility]) Use to continually monitor glucose 1 each 08/15/2022 semaglutide (OZEMPIC) 0.25 mg or 0.5 mg(2 mg/1.5 mL) pen injector injectionIndicatio ns:Type 2 diabetes mellitus without complication, with long-term current use of insulin ([facility] ([facility]) Inject 0.25 mg SQ weekly for 2-4 weeks and then increase to 0.5 mg SQ weekly 4.5 mL 3 08/15/2022 3 blood-glucose sensor (Dexcom G7 Sensor) deviceIndications: Type 2 diabetes mellitus without complication, with long-term current use of insulin (CMS/HCC) ([facility]) Use to continually monitor glucose, change every 10 days 9 each 3 08/15/2022 3 documented in this encounter Miscellaneous Notes * Telephone Encounter - Denia Albert RN - 08/05/2022 5:15 PM CDT 08/15/2022 I spoke with the patient today and he has a new phone and it does not have the Dexcom mario on it since it is so new He wished to change to the G7 and also get a 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 He has been out of our system for more than a year. We need to help him do the followin. He has a Dexcom on his phone. Please connect him to our system and represcribe sensors if necessary. 2. I have represcribed U500 insulin in pens rather than vials. His dose is 125 units TID (with or without meals). He is currently taking 25 units with a U100 syringe, which is a 125 unit dose. With the pen he just needs to dial in 125 units directly. 3. Please let him know that Ozempic appears to be covered and I have prescribed it at his pharmacy.He took it before for a month and tolerated it. 4. Have him MyChart us is 2 weeks about how he is doing. Thanks. documented in this encounter Plan of Treatment Not on file documented as of this encounter Visit Diagnoses Diagnosis Type 2 diabetes mellitus without complication, with long-term current use of insulin ([facility] ([facility])- Primary documented in this encounter Discontinued Medications Medication Sig Discontinue Reason Start Date End Da te Dexcom G6 Sensor device USE TO CONTINUALLY MONITOR GLUCOSE, CHANGE EVERY 10 DAYS Formulary change 03/08/2022 08/15/2022 documented as of this encounter Care Teams Blind Aide Relationship Specialty Start Date End Date Keila Jimenez MD [address] [place] [address] PCP - General 10/29/21 Mariana Monique MD [address] [place] [address] Referring Physician Internal Medicine 01/17/20 documented as of this encounter
--- OUTSIDE RECORDS SUMMARY | 2024-05-10 17:13 | XMS_ITS | Encounter Summary ---
Author Organization [facility] Address [address] [place] [address] Phone Care Team Providers Care Communications Advisor Name Role Phone Mariana Monique MD Unavailable [phone] [facility] Primary [facility] Provider Encounter Details Date Type Department Care Team (Late st Contact Info) Description 09/04/2023 Orders Only [facility] Endocrinology Metabolism and Lipid [address] [facility] 5th [place] [address] [place] [address] Peter Styles Jr., MD [address] [place], [place] [id number] DM (diabetes mellitus), type 2 with complications (CMS/HCC) (HCC) (Primary Dx) Social History Tobacco [...] often do you attend [facility] or hindu services? 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 file Not on file documented as of this encounter Ordered Prescriptions Prescription Sig Dispense Quantity Refills Last Filled Start Date End Date tirzepatide (Mounjaro) 7.5 mg/0.5 mL pen injectorIndications :DM (diabetes mellitus), type 2 with complications (CMS/HCC) (HCC) Inject 7.5 mg under the skin every 7 days 4 mL 6 09/04/2023 4 documented in this encounter Plan of Treatment Not on file documented as of this encounter Visit Diagnoses Diagnosis DM (diabetes mellitus), type 2 with complications (CMS/HCC) (HCC)- Primary Type II or unspecified type diabetes mellitus with unspecified complication, not stated as uncontrolled documented in this encounter Care Teams Communications Advisor Relationship Specialty Start Date End Date Keila Jimenez MD [address] [place] [address] PCP - General 10/29/21 Mariana Monique MD [address] [place] [address] Referring Physician Internal Medicine 01/17/20 documented as of this encounter
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
--- OUTSIDE RECORDS SUMMARY | 2024-05-10 17:13 | XMS_ITS | Encounter Summary ---
Author Organization [facility] Healthcare Address [address] [place] [address] Care Team Providers Care Supervisor Waterworks Name Role Phone Mariana Monique MD Unavailable [phone] [facility] Primary Care Provider Encounter Details Date Type Department Care Team (Late st Contact Info) Description 05/03/2023 11:45 AM FLYING SHEAR OPERATOR Lab [facility] Advanced Medicine [facility] Advanced Medicine ([facility]) [address] [place] [phone] Screening for tuberculosis Social History Tobacco Use Types Packs/Day Years [...] often do you attend chur ch or denominational services? 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 tuberculosis). ??Patients with recent exposure to TB infected individuals exhibiting a negative T-SPOT.TB result should be considered for retesting within 6 weeks or if other relevant clinical symptoms indicate. ??Results from T-SPOT.TB testing must be used in conjunction with each individual's epidemiological history, current medical status, and results of other diagnostic evaluations. ??The T-SPOT.TB test is qualitative and results are reported as positive, borderline or negative, given that the test controls perform as expected. In line with the Centers for Disease Control and Prevention's 2010 recommendation to report quantitative measurements alongside the qualitative result, the laboratory provides spot counts for informational purposes only. ??The T-SPOT.TB test should not be interpreted as a quantitative test. T-SPOT.TB Panel A Spot Count 0 [facility] T-SPOT.TB Panel B Spot Count 0 [facility] T-SPOT.TB Negative Control Passed [facility] T-SPOT.TB Positive Control Passed [facility] Comment: Test Performed at: [facility] [place], [place] ??[phone] ? GIBSON FIELDS MD,PHD Blood 05/03/2023 11:5 3 AM FLYING SHEAR OPERATOR 05/03/2023 12:12 PM FLYING SHEAR OPERATOR us Charles Avalos MD LAB MICROBIOLOGY - GENERAL OR DERABLES Final Result [facility] One [facility] Department [place] [address] documented in this encounter Visit Diagnoses Diagnosis Screening for tuberculosis Screening examination for pulmonary tuberculosis documented in this encounter Care Teams Supervisor Waterworks Relationship Specialty Start Date End Date Keila Jimenez MD [address] [place] [address] PCP - General 10/29/21 Mariana Monique MD [address] [place] [address] Referring Physician Internal Medicine 01/17/20 documented as of this encounter
--- OUTSIDE RECORDS SUMMARY | 2024-05-10 17:13 | XMS_ITS | Encounter Summary ---
Author Organization [facility] Address [address] [place] [address] Phone Care Team Providers Care Therapeutic Radiologist Name Role Phone Mariana Monique MD Unavailable [phone] [facility] MD Primary Care Provider Reason for Visit * Reason Onset Date Comments Prior Auth 03/10/2024 Encounter Details Date Type Department Care Team (Late st Contact Info) Description 03/10/[address] [facility] Scheduling [address] [place] [address] Peter Styles Jr., MD [address] [place] [address] Prior Auth Social History Tobacco Use Types Packs/Day Years [...] often do you attend chur ch or episcopalian services? 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 Pleasecontact the patient to obtain the most recent PBM information, which includes the insurance name, PCN, Rx ID, Rx Group #, and BIN. Please send back to the PA team once this has been completed. IONARY BOILER FIREMAN documented in this encounter Plan of Treatment Not on file documented as of this encounter Visit Diagnoses Not on filedocumented in this encounter Care Teams Therapeutic Radiologist Relationship Specialty Start Date End Date Keila Jimenez MD [address] [place] [address] PCP - General 10/29/21 Mariana Monique MD [address] [place] [address] Referring Physician Internal Medicine 01/17/20 documented as of this encounter
--- OUTSIDE RECORDS SUMMARY | 2024-05-10 17:13 | XMS_ITS | Encounter Summary ---
Author Organization [facility] Healthcare Address [address] [place] [address] Care Team Providers Care Sculpture Conservator Name Role Phone Mariana Monique MD Unavailable [phone] [facility] Primary Care Provider Encounter Details Date Type Department Care Team (Late st Contact Info) Description 05/03/2023 Orders Only [facility] Healthcare Occupatiuonal Health [address] [facility] [address] (Third Floor) [place] [address] Charles Avalos MD [address] [address] Screening for tuberculosis (Primary Dx) Social History Tobacco Use Types [...] often do you attend chur ch or anabaptist services? 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 T-SPOT.TB Negative [facility] Comment: Normal Value: [...] test. T-SPOT.TB Panel A Spot Count 0 [facility] T-SPOT.TB Panel B Spot Count 0 [facility] T-SPOT.TB Negative Control Passed [facility] T-SPOT.TB Positive Control Passed [facility] Comment: Test Performed at: [address] [place], [place] ??[phone] ? GIBSON FIELDS MD,PHD Blood 05/03/2023 11:5 3 AM RAILROAD BAGGAGE PORTER 05/03/2023 12:12 PM RAILROAD BAGGAGE PORTER Charles Avalos MD LAB MICROBIOLOGY - GENERAL OR DERABLES Final Result [facility] One [facility] Department of Laboratories [place], [place] [id number] documented in this encounter Visit Diagnoses Diagnosis Screening for tuberculosis- Primary Screening examination for pulmonary tuberculosis documented in this encounter Care Teams Sculpture Conservator Relationship Specialty Start Date End Date Keila Jimenez MD [address] [address] PCP - General 10/29/21 Mariana Monique MD [address] [address] Referring Physician Internal Medicine 01/17/20 documented as of this encounter
--- OUTSIDE RECORDS SUMMARY | 2024-05-10 17:14 | XMS_ITS | Encounter Summary ---
Author Organization [facility] Address [address] [place] [address] Phone Care Team Providers Care Contract Associate Name Role Phone Jann Burrows MD Primary Care Provider [phone] Mariana Monique MD Unavailable [phone] Encounter Details Date Type Department Care Team (Late st Contact Info) Description 06/13/2021 Telephone [facility] Scheduling [address] [place] [address] Jenifer Tamez Social History Tobacco Use Types Packs/Day Years Used Date Smoking Tobacco: Never Smokeless Tobacco: Former Chew Quit: 01/13/2019 Alcohol Use Standard Drinks/Week Comments Not Currently 0 (1 standard drink = 0.6 oz pur e alcohol) Sex and Gender Information Value Date Recorded Sex Assigned at Not on file Legal Sex Male 5:01 AM CRYPTOGRAPHIC VULNERABILITY ANALYST Gender Identity Male 12/18/2017 12:38 PM CDT Sexual Orientation Not on file 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 Not on file Not on file documented as of this encounter Miscellaneous Notes * Telephone Encounter - Jenifer Tamez - 06/13/2021 3:01 PM CST [employer] 0.25MG/0.5ML auto-injectors Status: Approved Valid dates: 06/13/2021-01/11/2022 [place]: [id number] TOGRAPHIC VULNERABILITY ANALYST documented in this encounter Plan of Treatment Not on file documented as of this encounter Visit Diagnoses Not on filedocumented in this encounter Care Teams Contract Associate Relationship Specialty Start Date End Date Jann Burrows MD [address] [place] [address] PCP - General Hematology 03/13/19 10/28/21 Mariana Monique MD [address] [place] [address] Referring Physician Internal Medicine 01/17/20 documented as of this encounter
--- OUTSIDE RECORDS SUMMARY | 2024-05-10 17:14 | XMS_ITS | Encounter Summary ---
Author Organization [facility] Address [address] [place] [address] Care Team Providers Care Strawhat Blocking Operator Name Role Phone Jann Burrows MD Primary Care Provider [phone] Mariana Monique MD Unavailable [phone] Reason for Visit * Reason Onset Date Comments Follow-up 01/25/2020 Encounter Details Date Type Department Care Team (Late st Contact Info) Description 01/25/2020 Telephone [facility] [address] [facility] [address] [place] [address] Jann Burrows MD [address] [facility] [address] [place] [address] Follow-up Social History Tobacco Use Types Packs/Day Years Used Date Smoking Tobacco: Never Smokeless Tobacco: Former Chew Quit: 01/13/2019 Alcohol Use Standard Drinks/Week Comments Not Currently 0 (1 standard drink = 0.6 oz pur e alcohol) Sex and Gender Information Value Date Recorded Sex Assigned at Not on file Legal Sex Male 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 Jose [phone] * Telephone Encounter - Jose Saavedra - 01/25/2020 1:[address] Burrows, Patient is calling to request a return to work letter, he was out due to COVID- 19 and he has been symptom free for a week. Patient has been out of work since 01/11/20. He would like to return as soon as possible. Please follow up. Patient contact: [phone] Thanks Jose [phone] documented in this encounter Plan of Treatment Not on file documented as of this encounter Visit Diagnoses Not on filedocumented in this encounter Additional Health Concerns Infection Onset Date Last Indicated Resolved Time COVID19 01/15/2020 01/15/2020 01/31/2020 3:06 AM CDT documented as of this encounter Care Teams Strawhat Blocking Operator Relationship Specialty Start Date End Date Jann Burrows MD [address] [place] [address] PCP - General Hematology 03/13/19 10/28/21 Mariana Monique MD [address] [place] [address] Referring Physician Internal Medicine 01/17/20 documented as of this encounter
--- OUTSIDE RECORDS SUMMARY | 2024-05-10 17:14 | XMS_ITS | Encounter Summary ---
Author Organization [facility] Address [address] [place] [address] Phone Care Team Providers Care Vegetable Buncher Name Role Phone Jann Burrows MD Primary Care Provider [phone] Mariana Monique MD Unavailable [phone] Encounter Details Date Type Department Care Team (Latest Contact Info) Description 10/13/2020 4:40 PM CDT Office Visit [facility] Endocrinology Metabolism and Lipid [address] [facility] [address] [place] [address] [place] [address] Peter Styles Jr., MD [address] [place] [address] Essential hypertension (Primary Dx); Diabetic ketoacidosis without coma associated with other specified diabetes mellitus (CMS/HCC); Type 2 diabetes mellitus without complication, with long-term current use of insulin (CMS/HCC); Morbid obesity with BMI of 50.0-59.9, adult (CMS/HCC); Elevated LFTs Social History Tobacco Use Types Packs/Day Years Used Date Smoking Tobacco: Never Smokeless Tobacco: Former Chew Quit: 01/13/2019 Alcohol Use Standard Drinks/Week Comments Not Currently 0 (1 standard drink = 0.6 oz pur e alcohol) Sex and Gender Information Value Date Recorded Sex Assigned at Not on file Legal Sex Male 5: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 COMPLEX MANAGER Gender Identity Male 12/18/2017 12:38 PM CDT Sexual Orientation Not on file 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 I agree with the findings and plan of care as documented in the resident/fellow's note. My total encounter time on 10/13/2020 was 30 minutes which was spent in the activities documented in the note. This includes time spent prior to the visit and after the visitin direct care of the patient. This time does not include time spent in any separately reportable services. Chief Complaint: Type 2 diabetes with insulin resistance and acanthosis nigricans. History of Present Illness: The patient has been measuring his blood sugar 3 times daily and has been getting measurements mostly in the 90s with the highest being 130 in the lows being 66. The 66 occurred in the evening and hedid not have any symptoms associated with this low blood sugar. He said he had had his A1c measuredat an outside hospital somewhat recently and was 5.9%. He described a recent episode of a [...] 6.8% 06-02-20: A1c 11.5% 10/13/2020: A1c 5.6% Assessment and Plan: Essential hypertension Patient slightly above goal (less than 130/80) in the office today. Taking Coreg 25 but not taking lisinopril which is on his med list. - continue Coreg 25 Type 2 diabetes mellitus without complication, with long-term current use of insulin ([facility]) Patient has reported blood sugars are consistent with this A1c measurement of 5.6%. He has an up-to-date urine microalbumin which was normal. He has referral to the confectionery cooker but has not yet been seen. Had hypertriglyceridemia on last lipid panel, LDL was only 44 but cholesterol overall was 250. Not on a statin at this time. Not on an Landon or Arb. - continue 130 units of U 500 b.i.d. and 20 units of lispro t.i.d. a.c. - Comprehensive metabolic panel; Future - Lipid panel; Future Morbid obesity with BMI of 50.0-59.9, adult ([facility]) Counseled on weight loss and exercise - Comprehensive metabolic panel; Future - Lipid panel; Future Elevated LFTs Consistently elevated ALT on laboratory studies, will repeat LFTs today for monitoring purposes. - Comprehensive metabolic panel; Future RTC 6 months. Radames Burroughs MD PhD Internal Medicine PGY2 documented in this encounter Plan of Treatment Not on file documented as of this encounter Procedures Procedure Name Priority Date/Time Associated Diagnosis Comments POCT HEMOGLOBIN A1C Routine 10/13/2020 5 :23 PM CDT Diabetic ketoacidosis without coma associated with other specified diabetes mellitus ([facility]) documented in this encounter Results * (ABNORMAL) Comprehensive metabolic panel (10/13/2020 5:58 PM CDT) Sodium 139 135 - 145 mmol/L [facility] Potassium, pl 4.5 3.3 - 4.9 mmol/L [facility] Chloride 102 97 - 110 mmol/L [facility] CO2 28 22 - 32 mmol/L [facility] Anion gap 9 2 - 15 mmol/L [facility] BUN 17 8 - 25 mg/dL [facility] Creatinine 0.92 0.80 - 1.30 mg/dL [facility] Glucose 98 70 - 199 mg/dL [facility] Comment: Interpretive Data Fasting glucose >/= 126 [...] classification and Diagnosis of Diabetes Diabetes Care 2017;40 (Suppl. 1):S11. Current interpretive data was last revised 2017. Calcium 9.8 8.5 - 10.3 mg/dL [facility] Bilirubin, total 0.4 0.1 - 1.2 mg/dL [facility] Protein, pl 8.3 6.5 - 8.5 g/dL [facility] Albumin 5.1(H) 3.5 - 5.0 g/dL [facility] Alk phos 69 40 - 130 Units/L [facility] ALT 39 7 - 55 Units/L [facility] AST 34 10 - 50 Units/L [facility] Blood specimen (specimen) 10/13/2020 5:58 PM CDT 10/13/2020 6:09 PM CDT us Radames Burroughs MD PhD LAB BLOOD ORDERABLE S Final Result [facility] [place] [address] * (ABNORMAL) Lipid panel (10/13/2020 5:58 PM CDT) Cholesterol 194 30 - 199 mg/dL [facility] Comment: Interpretive Data Ages < or = [...] Data was last revised on 2017. Triglycerides 245(H) <=149 mg/dL [facility] Comment: Interpretive Data Ages < or = 9 [...] Data was last revised on 2017. HDL 34(L) >=40 mg/dL [facility] Comment: Interpretive Data Ages < or = [...] was last revised on 2017. LDL, calculated 111 <=129 mg/dL [facility] Comment: Interpretive Data Ages [...] was last revised on 2017. Non-HDL Cholesterol 160 mg/dL [facility] Comment: Interpretive Data Ages < or = [...] was last revised on 2017. Chol/HDL ratio 6 [facility] Blood specimen (specimen) 10/13/2020 5:58 PM CDT 10/13/2020 6:09 PM CDT us Radames Burroughs MD PhD LAB BLOOD ORDERABLE S Final Result [facility] [place] [address] * POCT hemoglobin A1c (10/13/2020 5:23 PM CDT) Hemoglobin A1C, POC 5.6 Blood specimen (specimen) 10/13/2020 5:23 PM CDT us Peter Styles Jr., MD POINT OF CARE TEST OR DERABLES Final Result documented in this encounter Visit Diagnoses Diagnosis Essential hypertension- Primary Unspecified essential hypertension Diabetic ketoacidosis without coma associated with other specified diabetes mellitus (HCC) Type 2 diabetes mellitus without complication, with long-term current use of insulin (CMS/HCC) (HCC) Morbid obesity with BMI of 50.0-59.9, adult (HCC) Elevated LFTs Other abnormal blood chemistry documented in this encounter Care Teams Vegetable Buncher Relationship Specialty Start Date End Date Jann Burrows MD [address] [place] [address] PCP - General Hematology 03/13/19 10/28/21 Mariana Monique MD [address] [place] [address] Referring Physician Internal Medicine 01/17/20 documented as of this encounter
--- OUTSIDE RECORDS SUMMARY | 2024-05-10 17:14 | XMS_ITS | Encounter Summary ---
Author Organization [facility] Healthcare Address [address] [place] [address] Care Team Providers Care Dry Food Products Mixer Name Role Phone Jann Burrows MD Primary Care Provider [phone] Mariana Monique MD Unavailable [phone] Reason for Referral * Consultation (Routine) - Closed Specialty Diagnoses / Procedures Referred By Contevans t Referred To Contact Sleep Medicine Diagnoses Mood disorder (HCC) Sleep disturbance Abiola Villegas NP [facility] [address] [place] [address] Phone: tel: fax: [facility] [address] [place] [address] Phone: tel: Referral ID Status Reason Start Date Expiration Date V isits Requested Visits Authorized [id number] Closed Specialty Services Required 06/19/2021 07/19/2022 1 1 Question Answer Please select the performing region: [facility] [[id number]] Please select the performing department: [facility] [[id number]] # of visits: 1 STRING KNOTTER Reason for Visit * Reason Comments Post Hospital Visit Pt went to ER at the beginning of Jun for nausea & vomiting with hyperglycemia. Encounter Details Date Type Department Care Team (Late st Contact Info) Description 06/19/2021 2:30 PM DRAWSTRING KNOTTER Office Visit [facility] [address] [place] [address] Evangelina Patel MD [address] [facility] [phone] [place] [address] Abiola Villegas NP [facility] [address] [place] [address] Type 2 diabetes mellitus without complication, with long-term current use of insulin (CMS/HCC) ([facility]) (Primary Dx); Essential hypertension; Mood disorder (CMS/HCC) ([facility]); Sleep disturbance Discharge Disposition: Discharge to home or self care Social History Tobacco Use Types Packs/Day Years Used Date Smoking Tobacco: Never Smokeless Tobacco: Former Chew Quit: 01/13/2019 Alcohol Use Standard Drinks/Week Comments Not Currently 0 (1 standard drink = 0.6 oz pur e alcohol) Sex and Gender Information Value Date Recorded Sex Assigned at Not on file Legal Sex Male 5:01 AM DRAWSTRING KNOTTER Gender Identity Male 12/18/2017 12:38 PM CDT Sexual Orientation Not on file 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 Not on file Not on file documented as of this encounter Last Filed Vital Signs Vital Sign Reading Time Taken Comments Blood Pressure 140/83 06/19/2021 3:21 PM DRAWSTRING KNOTTER Pulse 98 06/19/2021 2:39 PM DRAWSTRING KNOTTER Temperature 37.1 ??C (98.7 ??F) 06/19/2021 2:39 PM CS T Respiratory Rate 20 06/19/2021 2:39 PM DRAWSTRING KNOTTER Oxygen Saturation 98% 06/19/2021 2:39 PM DRAWSTRING KNOTTER Inhaled Oxygen Concentration - - Weight 200.8 kg (442 lb 11.2 oz) 06/19/2021 2:39 PM DRAWSTRING KNOTTER Height 203.2 cm (6' 8 ) 06/19/2021 2:39 PM DRAWSTRING KNOTTER Body Mass Index 48.63 06/19/2021 2:39 PM DRAWSTRING KNOTTER documented in this encounter Ordered Prescriptions Prescription Sig Dispense Quantity Refills Last Filled Start Date End Date DULoxetine DR (CYMBALTA) 60 mg capsuleIndications :Anxiety with Depression Take 1 capsule (60 mg total) by mouth daily 90 capsule 1 06/19/2021 carvediloL (COREG) 25 mg tablet Take 1 tablet (25 mg total) by mouth 2 (two) times a day with meals 180 tablet 3 06/19/2021 lisinopriL (PRINIVIL,ZESTRIL) 20 mg tablet Take 1 tablet (20 mg total) by mouth daily 90 tablet 3 06/19/2021 3 documented in this encounter Discharge Disposition Disposition Code Departure Means Destination Discharge to home or self care documented in this encounter Progress Notes * Abiola Villegas, NET DEVELOPER ARCHITECT - 06/19/2021 2:30 PM [facility]IMARY [facility]ICINE CLINIC NOTE Patient Name: Geraldo Velez : 1995 Today's Date: 06/19/2021 PCP: Jann Burrows MD SUBJECTIVE CHIEF COMPLAINT Chief Complaint Patient presents with ??? Post Hospital Visit Pt went to ER at the beginning of Jun for nausea & vomiting with hyperglycemia. HISTORY OF PRESENT ILLNESS Geraldo Velez is a 25 y.o. male with h/o Morbid Obesity, HTN, DMT2, Mood Disorder, JENNI? who presents for PHV due to hospitalization 06/06 thru 06/07/21 for nausea & vomiting. From hospital note:VS significant for afebrile, P 104, Labs significant for AG 20, CO2 19, glucose 535, CXR without pneumonia Patient was started on subq insulin protocol for low risk DKA with improvement in his blood sugar to <200. Today he reports that he has had no further nausea or vomiting since discharge from hospital. His SMBG readings have been from 180 this morning up to 300. He reports as his baseline. He has returned to his work and normal activities. Reviewing HgbA1c over past year was elevated 06/02/20 at 11.5 >>10/13/20 5.6 >> 06/06/21 9,9. When asked What has changed? He states that he has been strugg ling with Depression and that duloxetine DR 60 mg daily is not helping as well as in the past. He is interested in CMB and states I have been wanting that for a long time. Medication Review: No longer taking atorvastatin; was discontinued by Dr. Irasema CROWE his Claim Adjuster. He has picked up refills of all his insulins. He has also just picked up the semaglutide 0.25 mg injection for weekly administration prescribed by Dr. Villalpando for weight loss and is to take first injection. PAST MEDICAL HISTORY Past Medical History: Diagnosis Date ??? Anxiety ??? Depression ??? Diabetes mellitus (HCC) ??? Disordered sleep 10/13/2017 ??? HTN (hypertension) ??? Metabolic syndrome ??? Morbid obesity with BMI of 50.0-59.9, adult (CMS/HCC) (HCC) 07/10/2017 ??? Pneumonia due to COVID-19 virus 01/15/2020 PAST SURGICAL HISTORY No past surgical history on file. HOME MEDICATIONS HOME MEDICATIONS : blood glucose diagnostic (glucose blood) strip blood-glucose meter kit carvediloL (COREG) [address] (CYMBALTA) 60 mg capsule glucagon 1 mg injection HumuLIN R U-500 500 unit/mL (3 mL) CONCENTRATED pen for injection insulin lispro (HumaLOG, ADMELOG) 100 unit/mL pen for injection lisinopriL (PRINIVIL,ZESTRIL) 20 mg tablet metFORMIN (GLUCOPHAGE) 500 mg tablet mupirocin (BACTROBAN) 2 % ointment NovoLOG 100 unit/mL (3 mL) pen for injection pen needle, diabetic (BD Ultra-Fine Ibeth Pen Needle) 32 gauge x 5/32 needle pen needle, diabetic (BD Ultra-Fine Ibeth Pen Needle) 32 gauge x 5/32 needle semaglutide (WEGOVY) 0.25 mg/0.5 mL auto-injector atorvastatin (LIPITOR) 20 mg tablet carvediloL (COREG) [address] (CYMBALTA) 60 mg capsule lisinopriL (PRINIVIL,ZESTRIL) 20 mg tablet ALLERGIES AND DRUG REACTIONS Allergies as of 06/19/2021 ??? (No Known Allergies) FAMILY HISTORY Family History Problem Relation Age of Onset ??? Diabetes Mother Family history of diabetes mellitus - (Added by TW Radha) ??? Obesity Mother SOCIAL AND FUNCTIONAL HISTORY Social History Socioeconomic History ??? Marital status: Single Spouse name: Not on file ??? Number of children: Not on file ??? Years of education: Not on file ??? Highest education level: Not on file Occupational History ??? 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 Smoking status: Never Smoker ??? Smokeless tobacco: Former User Types: Chew Vaping Use ??? Vaping Use: Never used Substance and Sexual Activity ??? Alcohol use: Not Currently ??? Drug use: No ??? Sexual activity: Defer Other Topics Concern ??? Not on file Social History Narrative Non-smoker : (Added by TW Conv) Non-smoker : (Added by TW Conv) Social Determinants of Health Financial Resource Strain: Not on file Food Insecurity: Not on file Transportation Needs: Not on file Physical Activity: Not on file Stress: Not on file Social Connections: Not on file Intimate Partner Violence: Not on file Housing Stability: Not on file REVIEW OF SYSTEMS: Constitutional: negative for chills, fatigue, fevers Eyes: negative for irritation, and visual disturbance. Has not yet had an eye exam. Ears, nose, mouth, throat, and face: negative for change in hearing, rhinitis, oral lesions/ulcers,sore throat Respiratory: negative for dyspnea on exertion, cough, sputum, and wheezing Cardiovascular: negative for chest pressure/discomfort/pain, palpitations, diaphoresis, syncope. Gastrointestinal: negative for heartburn, abdominal pain, change in bowel habits, melena or BRBPR Genitourinary: negative for dysuria and hematuria Integument/breast: negative for pruritus, rash, and skin lesion(s) Behavioral/Psych: HPI. OBJECTIVE PHYSICAL EXAM Vitals: 06/19/21 1439 06/19/21 1521 BP: 158/94 140/83 BP Location: Right arm Patient Position: Sitting Pulse: 98 Resp: 20 Temp: 37.1 ??C (98.7 ??F) SpO2: 98% Weight: (!) 200.8 kg (442 lb 11.2 oz) Height: 203.2 cm (6' 8 ) Body mass index is 48.63 kg/m??. Vitals reviewed. Vitals BP 140/83 (BP Location: Right arm, Patient Position: Sitting) Pulse 98 Temp 37.1 ??C (98.7 ??F) Resp 20 Ht 203.2 cm (6' 8 ) Wt (!) 200.8 kg (442 lb 11.2 oz) SpO2 98% BMI 48.63 kg/m?? *General: Well-nourished and well-developed, in NAD. Head: Normocephalic, atraumatic Eyes: PERRL, EOMI,conjunctiva pink, anicteric sclera ENT: MMM, negative for cervical LAD, thyromegaly. Cardiac: RRR, normal S1/S2. No rubs, gallops, or murmurs Pulmonary: Normal respiratory effort. Clear to auscultation bilaterally, no rhonchi or wheezing Abdomen: Soft, nondistended, non-tender, + BS Extremities: Warm and well perfused, without edema. Neurologic: AOx3, moves all limbs spontaneously, no focal deficits Psychiatric: appropriate affect, interactive, engaged Labs: Lab Results Component Value Date WBC 4.8 06/06/2021 HGB See Comment 06/06/2021 HCT See Comment 06/06/2021 Lab Results Component Value Date SODIUM 131 (L) 06/07/2021 POTASSIUM See Comment 06/07/2021 CHLORIDE 97 06/07/2021 CO2 23 06/07/2021 BUNSER 11 06/07/2021 CREATININE 0.66 (L) 06/07/2021 GLUCOSE 303 (H) 06/07/2021 CALCIUM 8.8 06/07/2021 Lab Results Component Value Date ALT 40 06/06/2021 AST 18 06/06/2021 ALKPHOS 152 (H) 06/06/2021 BILITOT 0.3 06/06/2021 06/06/21 HgbA1c 9.9%, eAG 237 10/13/20 Cholesterol 194, HDL 34, LDL 111, Chol/HDL ratio 6 ASSESSMENT & PLAN Geraldo Velez is a 25 y.o. male with h/o Morbid Obesity, DMT2 and HTN. He was recently in hospital for nausea and vomiting with BG of 426. He comes today for a Post Hospital Visit. Problem List Cardiac and Vasculature Essential hypertension Relevant Medications carvediloL (COREG) 25 mg tablet lisinopriL (PRINIVIL,ZESTRIL) 20 mg tablet DMT2 SMBG 180-300. Have messaged Maira [facility] for CMB equipment through [employer]. Will schedule follow up with Dr. Irasema CROWE Claim Adjuster. Continues Humulin 150 units tid with meals Continues Humalog 24 units tid with meals Continues metformin 500 mg tablet and takes two tablets bid with breakfast and dinner Continues Novolog 24 units tid before meals HTN BP today 158/94 (came straight from work) & 140/83 during exam. Continues carvedilol 25 mg bid with breakfast and dinner. Continues lisinopril 20 mg daily. Depression He is taking max dose of duloxetine. I will discuss with Dr. Burrows regarding increasing dose given his size or adding another medication. He does have insurance now and I spoke with our SW Sasha regarding resources. She has given a list of Pyschiatric Services available for uninsured/poorly insured. Recommended he talk with his Employee Assistance Program regarding Psychiatric Services that are inNetwork and are covered by his insurance. Was to have Sleep Study for suspected JENNI 12/25/19 but was unable to obtain. Referral sent again today. Return in about 4 weeks (around 07/17/2021). Clinic visit with Dr. Markos CROWE, PCP. Abiola Villegas NP 06/19/21 4:35 PM STRING KNOTTER documented in this encounter Plan of Treatment Scheduled Referrals Name Type Priority Associated Diagnoses Orde r Schedule Ambulatory referral to Sleep Medicine Outpatient Referral Routine Mood disorder ([facility]) ([facility]) Sleep disturbance Expected: 07/03/2021 (Approximate), Expires: 06/19/2022 documented as of this encounter Visit Diagnoses Diagnosis Type 2 diabetes mellitus without complication, with long-term current use of insulin ([facility]) ([facility])- Primary Essential hypertension Unspecified essential hypertension Mood disorder ([facility]) Unspecified episodic mood disorder Sleep disturbance Unspecified sleep disturbance documented in this encounter Discontinued Medications Medication Sig Discontinue Reason Start Date End Da te carvediloL (COREG) 25 mg tablet Take 1 tablet (25 mg total) by mouth 2 (two) times a day with meals Reorder 02/10/2020 06/19/2021 DULoxetine (CYMBALTA) 60 mg capsuleIndications:Anxi ety with Depression Take 1 capsule (60 mg total) by mouth daily Reorder 08/14/2020 06/19/2021 lisinopriL (PRINIVIL,ZESTRIL) 20 mg tablet Take 1 tablet (20 mg total) by mouth daily 06/08/2021 06/19/2021 atorvastatin (LIPITOR) 20 mg tabletIndications:Diabe tic ketoacidosis without coma associated with other specified diabetes mellitus (HCC) Take 1 tablet (20 mg total) by mouth daily Discontinued by another clinician 03/19/2019 06/19/2021 documented as of this encounter Care Teams Dry Food Products Mixer Relationship Specialty Start Date End Date Jann Burrows MD [address] [place] [address] PCP - General Hematology 03/13/19 10/28/21 Mariana Monique MD [address] [place] [address] Referring Physician Internal Medicine 01/17/20 documented as of this encounter
--- OUTSIDE RECORDS SUMMARY | 2024-05-10 17:14 | XMS_ITS | Encounter Summary ---
Author Organization [facility] Healthcare Address [address] [place] [address] Care Team Providers Care Crate Maker Name Role Phone Jann Burrows MD Primary Care Provider [phone] Reason for Visit * Reason Onset Date Comments Vomiting Diarrhea 01/14/2020 Encounter Details Date Type Department Care Team (Late st Contact Info) Description 01/14/2020 Nurse Triage LOCATED WITHIN [facility] Specialty Services [address] [place] [phone] Mendel Syed, RN Social History Tobacco Use Types Packs/Day Years Used Date Smoking Tobacco: Never Smokeless Tobacco: Former Chew Quit: 01/13/2019 Alcohol Use Standard Drinks/Week Comments Not Currently 0 (1 standard drink = 0.6 oz pur e alcohol) Sex and Gender Information Value Date Recorded Sex Assigned at Not on file Legal Sex 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 Burrows Patient with nausea and vomiting . Had COVID test , But results are not back yet. ADMIN consulted and they will reach out to this patient for further direction Thank you, Roberto Syed RN [phone] * Telephone Encounter - Kiya Disla - 01/14/2020 3:26 PM CDT Patient is returning call. He said he's still vomiting, diarrhea And coughing. He had COVID test done on 01/10 at [facility] in [place]. He hasn't received results yet. Please call. Kiya * Telephone Encounter - Mendel Syed, BRYANNA - 01/14/2020 6:14 AM CDT Regarding: vomiting ----- Message from Mike Nuno sent at 01/13/2020 3:26 PM CDT ----- Patient is calling, stated he has been vomiting. documented in this encounter Plan of Treatment Not on file documented as of this encounter Visit Diagnoses Not on filedocumented in this encounter Care Teams Crate Maker Relationship Specialty Start Date End Date Jann Burrows MD [address] [place] [address] PCP - General Hematology 03/13/19 10/28/21 documented as of this encounter
--- OUTSIDE RECORDS SUMMARY | 2024-05-10 17:14 | XMS_ITS | Encounter Summary ---
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 Role Phone Mariana Monique MD Unavailable [phone] [facility] Provider Reason for Visit * Auth/Cert Specialty Diagnoses / Procedures Referred By Contac t Referred To Contact Diagnoses DKA, type 1, not at goal (HCC) DKA Procedures NA Referral ID Status Reason Start Date Expiration Date Visits Re quested Visits Authorized [id number] 1 1 Encounter Details Date Type Department Care Team (Latest Contact Info) Description 11/24/2021 1:15 AM CDT - 11/27/2021 3:17 PM CDT Hospital Encounter [id number] [place] [address] Dequan Nunez MD [facility] N [facility] [place] [address] Isidro Leyva MD [address] [place] [address] Discharge Disposition: Discharge to home or self [...] often do you attend chur ch or samaritan services? 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 Not on file Not on file Not on file documented as of this encounter Last Filed Vital Signs Vital Sign Reading Time Taken Comments Blood Pressure 152/93 11/27/2021 8:30 AM CDT Pulse 68 11/27/2021 8:30 AM CDT Temperature 35.8 ??C (96.4 ??F) 11/27/2021 8:30 AM CD T Respiratory Rate 19 11/27/2021 8:30 AM CDT Oxygen Saturation 99% 11/27/2021 8:30 AM CDT Inhaled Oxygen Concentration - - Weight 180.7 kg (398 lb 5.9 oz) 11/24/2021 1:30 AM CDT Height 205.7 cm (6' 9 ) 11/24/2021 1:3 0 AM CDT Body Mass Index 42.69 11/24/2021 1:30 AM CDT documented in this encounter Discharge Summaries * Isidro Leyva MD - 11/27/2021 12:39 PM CDT Inpatient Discharge Summary BRIEF OVERVIEW Admitting Provider: Isidro Leyva MD Discharge Provider: Isidro Leyva MD Primary Care Physician at Discharge: Keila Jimenez MD [phone] Admission Date: 11/24/2021 Discharge Date: 11/27/2021 Admission Location: [facility] Hospital Problems/Diagnoses: Principal Problem: DKA, type 1, not at goal (CMS/HCC) (HCC) Resolved Problems: No resolved hospital problems. DETAILS OF HOSPITAL STAY Presenting Problem/History of Present Illness: DKA and hypertriglyceridemia Hospital Course: 25 yo with hx of obesity, DM presents with DKA and hypertriglyceridemia >2000. Patient continuedon insulin gtt and transitioned over to subQ insulin with further adjustment of regimen per endocrinology. Triglyceride levels improved with continued treatment and symptoms resolved. He was also placed on cephlex for ingrown toenail infection. Patient plans to transition care to [facility] and stable for DC. Active Issues Requiring Follow-up: Followup with Endocrinology, appointment to be arranged Followup with podiatry. Test Results Pending at Discharge: Pending Labs Order Current Status Blood culture Blood Preliminary result Blood culture Blood Preliminary result Discharge Details Physical Exam at Discharge: Discharge Condition: good Pulse: 68 Resp: 19 BP: 152/93 Temp: (!) 35.8 ??C (96.4 ??F) Weight: (!) 180.7 kg (398 lb 5.9 oz) Pertinent Exam Findings at Discharge: GENERAL: Well appearing, NAD HEENT: Sclerae anicteric. Oropharynx clear, MMM CARDIOVASCULAR: RRR, S1, S2. No murmurs/rubs/gallops LUNGS: CTAB. No wheezes/rhonchi/crackles ABDOMEN: Soft, not distended. Non tender. +BS EXTREMITIES: Warm, no peripheral edema. 2+ pulses bilat LE. bilat hallux ingrown nail with erythema SKIN: No rashes NEURO: AOx3. CN II-XII grossly intact Discharge Disposition: Discharge to home or self care Code Status at Discharge: full Discharge Instructions: Cont new insulin regimen per endocrinology. Humulin U 500 with 100 units with meals, three times a day. Plus Humalog 25 units with meals, three times a day Followup with endocrinology and podiatry. Followup with pcp Cont antibiotics to completion. Stop taking metformin and lantus. Diet Instructions Your RD recommends a consistent carb diet at time of discharge (45-60 gm carb/meal). Eat 3 meals per day and try to eat at consistent times. Avoid sugary drinks like lemonade, regular soda, Gatorade,and sweet tea. Instead choose water or another no calorie beverage. Monitor blood sugars and take medications as directed by your doctor. Additional resources available from the [place] [employer] can be found at www.diabetes.org/nutrition. If a nutrition follow-up with a registered dietitian is desired after you discharge home, please contact the [facility] Outpatient Dietitiansat [phone]. Discharge Medications: Current Medications TAKE these medications carvediloL 25 mg tablet Take 1 tablet (25 mg total) by mouth 2 (two) times a day with meals Commonly known as: COREG cephalexin 500 mg capsule Take 1 capsule (500 mg total) by mouth 4 (four) times a day for 2 days For: Skin/Soft Tissue Infection Commonly known as: KEFLEX DULoxetine DR 60 mg capsule Take 1 capsule (60 mg total) by mouth daily For: anxiousness associated with depression Commonly known as: CYMBALTA fenofibrate nanocrystallized 145 mg tablet Take 1 tablet (145 mg total) by mouth daily Commonly known as: TRICOR Start taking on: November 28, 2021 glucagon 1 mg kit Generic drug: glucagon insulin lispro 100 unit/mL pen for injection Inject 25 Units under the skin 3 (three) times a day with meals Commonly known as: HumaLOG, ADMELOG insulin regular U-500 500 unit/mL CONCENTRATED vial for injection Inject 20 unit marking on U-100 syringe (100 Units total) under the skin 3 (three) times a day with meals For: diabetes mellitus with severe insulin resistance Commonly known as: HumuLIN R lisinopriL 20 mg tablet Take 1 tablet (20 mg total) by mouth daily Commonly known as: PRINIVIL,ZESTRIL omega-3 fatty acids 1 gram capsule Take 2 capsules (2 g total) by mouth 2 (two) times a day Commonly known as: LOVAZA rosuvastatin 20 mg tablet Take 1 tablet (20 mg total) by mouth nightly Commonly known as: CRESTOR Outpatient Follow-Up: Future Appointments Date Time Provider Department Center 01/04/2022 3:40 PM Peter Styles Jr., MD [facility] Contact Information for Follow-ups [facility] Outpatient Nutrition Counseling Specialty: Diabetes and Nutrition Services [address] [place] [id number] Next Steps: Follow up Instructions: For diabetic diet education, please call to make an appointment. Isidro Leyva MD [facility] documented in this encounter Discharge Instructions * Discharge Instr - Diet* Keila Durand RD - 11/27/2021 9:[address] recommends a consistent carb diet at time of discharge (45-60 gm carb/meal). Eat 3 meals per day and try to eat at consistent times. Avoid sugary drinks like lemonade, regular soda, Gatorade,and sweet tea. Instead choose water or another no calorie beverage. Monitor blood sugars and take medications as directed by your doctor. Additional resources available from the [place] [employer] can be found at www.diabetes.org/nutrition. If a nutrition follow-up with a registered dietitian is desired after you discharge home, please contact the [facility] Outpatient Dietitiansat [phone]. * Attachments The following attachments cannot be sent through Care Everywhere. * Basic Carbohydrate Counting (General Information) (Canadian) documented in this encounter Medications at Time of Discharge carvediloL (COREG) 25 mg tablet Take 1 tablet (25 mg total) by mouth 2 (two) times a day with meals 180 tablet 3 06/19/[address] (CYMBALTA) 60 mg capsuleIndications:An xiety with Depression Take 1 capsule (60 mg total) by mouth daily 90 capsule 1 06/19/2021 fenofibrate nanocrystallized (TRICOR) 145 mg tablet Take 1 tablet (145 mg total) by mouth daily 30 tablet 11 11/28/2021 glucagon 1 mg injection 06/02/2019 omega-3 fatty acids (LOVAZA) 1 gram capsule Take 2 capsules (2 g total) by mouth 2 (two) times a day 120 capsule 11 11/27/2021 cephalexin (KEFLEX) 500 mg capsuleIndications:Sk in/Soft Tissue Infection Take 1 capsule (500 mg total) by mouth 4 (four) times a day for 2 days 8 capsule 11/27/2021 2 insulin lispro (HumaLOG, ADMELOG) 100 unit/mL pen for injection Inject 25 Units under the skin 3 (three) times a day with meals 15 mL 11 11/27/2021 3 insulin regular U-500 (HumuLIN R) 500 unit/mL CONCENTRATED vial for injectionIndications: Diabetes Mellitus with Severe Insulin Resistance Inject 20 unit marking on U-100 syringe (100 Units total) under the skin 3 (three) times a day with meals 20 mL 11/27/2021 3 lisinopriL (PRINIVIL,ZESTRIL) 20 mg tablet Take 1 tablet (20 mg total) by mouth daily 90 tablet 3 06/19/2021 3 rosuvastatin (CRESTOR) 20 mg tablet Take 1 tablet (20 mg total) by mouth nightly 30 tablet 11 11/27/2021 3 documented as of this encounter Ordered Prescriptions Prescription Sig Dispense Quantity Refills Last Filled Start Date End Date omega-3 fatty acids (LOVAZA) 1 gram capsule Take 2 capsules (2 g total) by mouth 2 (two) times a day 120 capsule 11 11/27/2021 fenofibrate nanocrystallized (TRICOR) 145 mg tablet Take 1 tablet (145 mg total) by mouth daily 30 tablet 11 11/28/2021 insulin regular U-500 (HumuLIN R) 500 unit/mL CONCENTRATED vial for injectionIndications: Diabetes Mellitus with Severe Insulin Resistance Inject 20 unit marking on U-100 syringe (100 Units total) under the skin 3 (three) times a day with meals 20 mL 11 11/27/2021 3 cephalexin (KEFLEX) 500 mg capsuleIndications:Sk in/Soft Tissue Infection Take 1 capsule (500 mg total) by mouth 4 (four) times a day for 2 days 8 capsule 11/27/2021 2 insulin regular U-500 (HumuLIN R) 500 unit/mL CONCENTRATED vial for injectionIndications: Diabetes Mellitus with Severe Insulin Resistance Inject under the skin 3 (three) times a day with meals 20 mL 11 11/27/2021 2 insulin lispro (HumaLOG, ADMELOG) 100 unit/mL pen for injection Inject 25 Units under the skin 3 (three) times a day with meals 15 mL 11/27/2021 3 rosuvastatin (CRESTOR) 20 mg tablet Take 1 tablet (20 mg total) by mouth nightly 30 tablet 11/27/2021 3 documented in this encounter Discharge Disposition Disposition Code Departure Means Destination Discharge to home or self care documented in this encounter Progress Notes * Keila Durand, RD - 11/27/2021 3:11 PM CDT Initial Nutrition Assessment Reason for Assessment: Initial Nutrition Assessment Encounter Date: 11/27/21 3:11 PM Nutrition Evaluation: Patient is a 25 y.o. male. Admit Dx: DKA, type 1, not at goal (CMS/HCC) ([facility]) [E10.10]. Admitted on11/24/2021, current LOS is 3 days. Patient's intake is adequate. Objective Past Medical History: Diagnosis Date ??? Anxiety ??? Depression ??? Diabetes mellitus (HCC) ??? Disordered sleep 10/13/2017 ??? HTN (hypertension) ??? Metabolic syndrome ??? Morbid obesity with BMI of 50.0-59.9, adult (CMS/HCC) (HCC) 07/10/2017 ??? Pneumonia due to COVID-19 virus 01/15/2020 No past surgical history on file. Anthropometrics Weight: (!) 180.7 kg (398 lb 5.9 oz) Admission Weight : 180.7 kg Weight Change: -9.81 kg (-21.62 lbs) IBW/kg (Calculated) : 105.2 kg Height: 205.7 cm (6' 9 ) Weight in (lb) to have BMI = 25: 232.8 BMI (Calculated): 42.7 Intake/Output Summary (Last 24 hours) at 11/27/2021 1511 Last data filed at 11/27/2021 1005 Gross per 24 hour Intake 3973 ml Output 2300 ml Net 1673 ml Medications and Lab Review: Scheduled Meds: carvediloL, 25 mg, oral, BID with meals (bkfst, dinner) ceFAZolin, 2,000 mg, intravenous, Q8H DULoxetine DR, 60 mg, oral, Daily enoxaparin, 40 mg, subcutaneous, Q12H MICHELLE fenofibrate nanocrystallized, 145 mg, oral, Daily insulin glargine, 150 Units, subcutaneous, Nightly insulin glargine, 40 Units, subcutaneous, QAM insulin lispro, 0-25 Units, subcutaneous, 5x Daily insulin lispro, 40 Units, subcutaneous, TID with meals lisinopriL, 20 mg, oral, Daily omega-3 fatty acids, 2 g, oral, BID rosuvastatin, 20 mg, oral, Nightly Continuous Infusions: PRN Meds: ??? acetaminophen OR acetaminophen OR acetaminophen ??? bisacodyL ??? bisacodyl EC ??? dextrose ??? dextrose OR dextrose ??? glucagon ??? loperamide ??? ondansetron ??? polyethylene glycol Sodium Date Value Ref Range Status 11/27/2021 139 135 - 145 mmol/L Final Potassium, pl Date Value Ref Range Status 11/27/2021 3.9 3.3 - 4.9 mmol/L Final Comment: Hemolyzed; potassium value may be falsely elevated by as much as 0.6 - 1.0 mmol/L. Suggest redraw and reanalysis BUN Date Value Ref Range Status 11/27/2021 6 (L) 8 - 25 mg/dL Final Creatinine Date Value Ref Range Status 11/27/2021 0.70 (L) 0.80 - 1.30 mg/dL Final Phosphorus, pl Date Value Ref Range Status 11/27/2021 4.2 2.3 - 4.5 mg/dL Final Albumin Date Value Ref Range Status 11/27/2021 3.2 (L) 3.5 - 5.0 g/dL Final Magnesium Date Value Ref Range Status 11/27/2021 1.8 1.4 - 2.5 mg/dL Final Calcium Date Value Ref Range Status 11/27/2021 8.5 8.5 - 10.3 mg/dL Final Lab Results Component Value Date HGBA1C 10.9 (H) 11/22/2021 Nursing Assessment: Last BM Date: 11/25/21 Bowel Sounds (All Quadrants): Active Carlos Scale Score: 21 Skin Integrity: Other (Comment) (ingrown toe nails) Dietary Orders (From admission, onward) Start Ordered 11/25/21 1151 Adult Diet Special; Consistent Carbohydrate Diet effective now Question Answer Comment ([facility]) Diet type Special Diabetic: Consistent Carbohydrate 11/25/21 1150 11/24/21 2200 Snacks At bedtime 11/24/21 2101 Nutrition Needs Calculations: Calculated Energy Needs Using Equations Weight: (!) 180.7 kg (398 lb 5.9 oz) Height: 205.7 cm (6' 9 ) Estimated Protein Needs Type of Weight Used for Estimated Protein : [place] Protein Needs Based on g/k.2 Total Protein Estimated Needs (gm): 126.24 Kcal/kg Type of Weight Used for Estimated Kcals: [place] Kcal/k Total Kcal/kg Estimated Needs : 2524.8 Nutritional Needs and Diagnosis: Nutrition Diagnosis 1: Food and nutrition-related knowledge deficit Related to: Lack of adherence, Food choices Evidenced by: Lab abnormality Impression: Admitted for DKA with T1DM. 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 Pt discharged today. Was provided additional DM written materials via discharge papers. Also provided ptwith the outpt RD number and encouraged to schedule an appointment. A1c is 10.9%. Intervention and Monitoring: Goals: Patient/caregiver able to teach back understanding of role of diet in disease process prior to discharge Interventions: Education, nutrition, Other (comment), Communication, referral to outpatient program(Consistent CHO diet) Monitoring and Evaluation: Labs, Plan of care, Diet-related questions, PO intake Diet Instructions Your RD recommends a consistent carb diet at time of discharge (45-60 gm carb/meal). Eat 3 meals per day and try to eat at consistent times. Avoid sugary drinks like lemonade, regular soda, Gatorade,and sweet tea. Instead choose water or another no calorie beverage. Monitor blood sugars and take medications as directed by your doctor. Additional resources available from the [place] [employer] can be found at www.diabetes.org/nutrition. If a nutrition follow-up with a registered dietitian is desired after you discharge home, please contact the [facility] Outpatient Dietitiansat [phone]. Keila [address] RD,LD * Vira Vora MD - 11/27/2021 10:41 AM CDT Endocrine Daily Progress Subjective No chief complaint on file. Interval History: Discussed care with DC DM mgmt. Objective Vitals: 24hr Min/Max: Temp Min: 35.8 ??C (96.4 ??F) Max: 36.4 ??C (97.6 ??F) Pulse Min: 59 Max: 85 BP Min: 129/68 Max: 166/103 Resp Min: 16 Max: 25 SpO2 Min: 93 % Max: 99 % Most Recent : Vitals: 11/27/21 0830 BP: 152/93 Pulse: 68 Resp: 19 Temp: (!) 35.8 ??C (96.4 ??F) SpO2: 99% I/O last 2 completed shifts: In: 3959 [P.O.:2470; I.V.:1489] Out: 3500 [Urine:3500] I/O this shift: In: 800 [P.O.:800] Out: - Physical Exam: General appearance:appears stated age and cooperative Lungs: clear to auscultation bilaterally Heart: regular rate and rhythm Abdomen: soft, non-tender; bowel sounds normal; no masses, no organomegaly Lab/Radiology/Diagnostic Review: Laboratory review: POC Glucose: Lab Results Component Value Date GLUCOSE 95 11/27/2021 GLUCOSE 93 11/27/2021 Assessment/Plan Principal Problem: DKA, type 1, not at goal (CMS/HCC) (HCC) 1. Hypertriglyceridemia Continue fenofibrate, added fish oil as well. 2. Uncontrolled type 2 diabetes with metabolic syndrome/ insulin resistance: Class 3 obesity with BMI of 42 noted. OP Fu with me. DC DM REGIMEN: HUMULIN-u500 100 units QAC, TID Humalog 25 units QAC, TID BG log book with HIRAMC, HS. FU in 2-4 weeks with me. Vira Vora MD [facility] Office phone: [phone] Office fax: [phone] * Vira Vora MD - 11/26/2021 6:55 PM CDT Endocrine Daily Progress Subjective No chief complaint on file. Interval History: Feeling well. Fiance by bedside. Discussed care with DM mgmt. Objective Vitals: 24hr Min/Max: Temp Min: 35.8 ??C (96.4 ??F) Max: 36.8 ??C (98.2 ??F) Pulse Min: 67 Max: 81 BP Min: 127/66 Max: 166/103 Resp Min: 17 Max: 19 SpO2 Min: 95 % Max: 98 % Most Recent : Vitals: 11/26/21 1734 BP: (!) 166/103 Pulse: 78 Resp: 19 Temp: SpO2: 97% I/O last 2 completed shifts: In: 5727.1 [P.O.:1830; I.V.:3897.1] Out: 1300 [Urine:1300] I/O this shift: In: 3719 [P.O.:2230; I.V.:1489] Out: 1400 [Urine:1400] Physical Exam: General appearance:appears stated age and cooperative Lungs: clear to auscultation bilaterally Heart: regular rate and rhythm Abdomen: soft, non-tender; bowel sounds normal; no masses, no organomegaly Lab/Radiology/Diagnostic Review: Laboratory review: POC Glucose: Lab Results Component Value Date GLUCOSE 95 11/26/2021 GLUCOSE 154 11/26/2021 Assessment/Plan Principal Problem: DKA, type 1, not at goal (CMS/HCC) (HCC) ?? 1. Hypertriglyceridemia secondary to uncontrolled diabetes with insulin resistance: Improved. Continue effort with glycemic control. On fenofibrate, added fish oil as well. ?? 2. Uncontrolled type 2 diabetes with metabolic syndrome/ insulin resistance: Class 3 obesity with BMI of 42 noted. Off IV insulin. DM diet. Basal bolus as follows Lantus 200 units q.p.m. Lower Humalog 50 units q.a.c. t.i.d. Juan Ramon Lower High-dose sliding scale coverage 0-25 units. BG QAC, HS, 2 AM. 2. DM nail infection B/L big toes: Ancef. Wound care fu. OP Fu with Podiatry. Dispo: Home soon, DW Dr Horan, UNLOADER Annika. Vira Vora MD [facility] Office phone: [phone] Office fax: [phone] * Kenroy Horan MD - 11/26/2021 7:45 AM CDT CRITICAL CARE MEDICINE PROGRESS NOTE Indication For ICU Admission; DKA Interval History; remains on insulin drip for hypertriglyceridemia. Level 1300 today. VITAL SIGNS PHYSICAL EXAM Tmax : Afebrile HEENT : HR : 70-90 CVC Site : BP : 130/60 Lungs : Diminished bases bilaterally I / O : 5177/1300 Cardiac : RRR Urine : 1300 Abdomen : Nontender NG/OG : Extremities : 1+ pulses Stool : Neuro : Awake & alert Drain : Skin : Bilateral great toe ingrown toenails Lines & Catheters: Infusions : Insulin LABS All pertinent data from last 24 hours reviewed and include; ABG : Chemistries : Recent Labs Lab Units 11/26/21 0201 11/25/21 0322 11/24/21 1540 11/24/21 0649 11/23/21 1652 11/23/21 1306 SODIUM mmol/L 136 137 136 132* < > -- POTASSIUM PLASMA mmol/L 3.3 3.6 3.4 3.6 < > -- CHLORIDE mmol/L 104 104 101 100 < > -- CO2 mmol/L 23 22 20* 18* < > -- BUN SERUM mg/dL 7* 7* 9 9 < > -- CREATININE mg/dL 0.92 1.04 0.75* 0.49* < > -- MAGNESIUM mg/dL 1.8 1.9 1.7 -- < > -- PHOSPHORUS PLASMA mg/dL 4.2 2.8 2.8 -- < > -- CALCIUM mg/dL 8.5 9.1 8.8 8.2* < > -- LACTATE POC mmol/L -- -- -- -- -- <0.5* AMYLASE Units/L -- -- -- 22* -- -- LIPASE Units/L -- -- -- 27 -- -- < > = values in this interval not displayed. Recent Labs Lab Units 11/26/21 0201 11/24/21 1540 11/24/21 0649 TRIGLYCERIDES mg/dL 1,310* >885* 2,291* All radiologic images over the past 24 hours were personally reviewed. Assessment & Plan Neuro : Depression; Cymbalta Cardiac : Hypertension; beta-blockers & Landon inhibitors ID : Ingrown toenails; Cefazolin. Outpatient podiatry evaluation. Hematology : CBC : Recent Labs Lab Units 11/26/21 0201 11/25/21 0322 11/24/21 0358 WBC K/cumm 3.4* 5.7 4.2 HEMOGLOBIN g/dL 13.7 15.9 14.8 PLATELETS K/cumm 166 224 216 Endocrine : DKA resolved. Insulin infusion. Lantus & prandial insulin Recent Labs Lab Units 11/26/21 0631 11/26/21 0440 11/26/21 0302 11/26/21 0201 11/26/21 0122 11/26/21 0002 11/25/21 2300 11/25/21 2137 11/25/21201011/25/21 1831 GLUCOSE mg/dL -- -- -- 154 -- -- -- -- -- -- POC GLUCOSE MONITOR mg/dL 129 128 125 -- 151* 180* 141* 133 165* 204* Other : Hypertriglyceridemia; insulin infusion. Lantus & SSI Fenofibrate & statin therapy. Amylase & lipase WNL. Obesity with BMI 43 Nutrition : Diet DVT Prophylaxis : LMWH with bariatric dose modification Stress Ulcer Prophylaxis : Critical Care Time Minutes spent in assessing patient, reviewing laboratory data and Xray images, making therapeutic decisions and implementing care plan excluding time spent in separately billiable procedures. I was in the unit immediately available to the patient and their nurse, devoting my fullattention to them during this time. Clinical decisions and medication choices may have been tempered by the national shortage of several medications and/or IV Fluids. These shortages include, but are not limited to, standard electrolytes & vitamins. In addition, there is a worldwide shortage of heparin. Administration is limited by protocols which have been put in place by the [facility] system to preserve limited supplies. * Vira Vora MD - 11/25/2021 3:22 PM CDT Endocrine Daily Progress Subjective No chief complaint on file. Interval History: Feeling well. Objective Vitals: 24hr Min/Max: Temp Min: 36.1 ??C (97 ??F) Max: 37.3 ??C (99.1 ??F) Pulse Min: 79 Max: 92 BP Min: 119/66 Max: 148/91 Resp Min: 12 Max: 24 SpO2 Min: 94 % Max: 98 % Most Recent : Vitals: 11/25/21 1400 BP: 136/82 Pulse: 81 Resp: 23 Temp: SpO2: 95% I/O last 2 completed shifts: In: 7044.9 [P.O.:985; I.V.:6059.9] Out: 4150 [Urine:4150] I/O this shift: In: 613.2 [P.O.:490; I.V.:123.2] Out: 1300 [Urine:1300] Physical Exam: General appearance:appears stated age and cooperative Lungs: clear to auscultation bilaterally Heart: regular rate and rhythm Abdomen: soft, non-tender; bowel sounds normal; no masses, no organomegaly Lab/Radiology/Diagnostic Review: Laboratory review: POC Glucose: Lab Results Component Value Date GLUCOSE 162 (H) 11/25/2021 GLUCOSE 138 11/25/2021 Assessment/Plan Principal Problem: DKA, type 1, not at goal (CMS/HCC) (HCC) ?? 1. Hypertriglyceridemia secondary to uncontrolled diabetes with insulin resistance: Improved. Continue effort with glycemic control. ?? 2. Uncontrolled type 2 diabetes with metabolic syndrome/ insulin resistance: Class 3 obesity with BMI of 42 noted. Patient noted to be an 6 units/hr of IV insulin. Plan to wean off as able. DM diet. Basal bolus as follows Lantus 150 units q.p.m. Humalog 40 units q.a.c. t.i.d. Juan Ramon High-dose sliding scale coverage 0-50 units to get off IV insulin completely 2. DM nail infection B/L big toes: Ancef. Wound care fu. Consider Podiatry. DW Dr Horan, UNLOADER. Vira Vora MD [facility] Office phone: [phone] Office fax: [phone] * Kenroy Horan MD - 11/25/2021 8:04 AM CDT CRITICAL CARE MEDICINE PROGRESS NOTE Indication For ICU Admission; DKA Interval History; remains on insulin drip for hypertriglyceridemia VITAL SIGNS PHYSICAL EXAM Tmax : Afebrile HEENT : HR : 70-90 CVC Site : BP : 120/70 Lungs : Diminished bases bilaterally I / O : Inaccurate charting Cardiac : RRR Urine : For 150 Abdomen : Nontender NG/OG : Extremities : 1+ pulses Stool : Neuro : Awake & alert Drain : Skin : Bilateral great toe ingrown toenails Lines & Catheters: Infusions : Insulin LABS All pertinent data from last 24 hours reviewed and include; ABG : Chemistries : Recent Labs Lab Units 11/25/21 0322 11/24/21 1540 11/24/21 0649 11/24/21 0436 11/23/21 1652 11/23/21 1306 SODIUM mmol/L 137 136 132* -- < > -- POTASSIUM PLASMA mmol/L 3.6 3.4 3.6 -- < > -- CHLORIDE mmol/L 104 101 100 -- < > -- CO2 mmol/L 22 20* 18* -- < > -- BUN SERUM mg/dL 7* 9 9 -- < > -- CREATININE mg/dL 1.04 0.75* 0.49* -- < > -- MAGNESIUM mg/dL 1.9 1.7 -- 1.5 < > -- PHOSPHORUS PLASMA mg/dL 2.8 2.8 -- 3.4 < > -- CALCIUM mg/dL 9.1 8.8 8.2* -- < > -- LACTATE POC mmol/L -- -- -- -- -- <0.5* AMYLASE Units/L -- -- 22* -- -- -- LIPASE Units/L -- -- 27 -- -- -- < > = values in this interval not displayed. Recent Labs Lab Units 11/24/21 1540 11/24/21 0649 11/23/21 2048 TRIGLYCERIDES mg/dL >885* 2,291* See Comment All radiologic images over the past 24 hours were personally reviewed. Assessment & Plan Neuro : Depression; Cymbalta Cardiac : Hypertension; beta-blockers & Landon inhibitors Renal : Adjust medication dosages as needed for degree of renal insufficiency and avoid nephrotoxic agents. ID : Ingrown toenails; Cefazolin. Outpatient podiatry evaluation. Hematology : CBC : Recent Labs Lab Units 11/25/21 0322 11/24/21 0358 11/22/21 2323 WBC K/cumm 5.7 4.2 5.1 HEMOGLOBIN g/dL 15.9 14.8 18.7* PLATELETS K/cumm 224 216 283 Endocrine : DKA. Insulin infusion. Anion gap has resolved. Recent Labs Lab Units 11/25/21 0739 11/25/21 0604 11/25/21 0505 11/25/21 0403 11/25/21 0322 11/25/21 0258 11/25/21 0141 11/25/21 0024 11/24/21 2305 11/24/21 2150 GLUCOSE mg/dL -- -- -- -- 138 -- -- -- -- -- POC GLUCOSE MONITOR mg/dL 167* 151* 125 120 -- 153* 156* 206* 252* 206* Other : Hypertriglyceridemia; insulin infusion. Lantus & SSI Fenofibrate & statin therapy. Amylase & lipase WNL. Obesity with BMI 43 Nutrition : Diet DVT Prophylaxis : LMWH with bariatric dose modification Stress Ulcer Prophylaxis : Critical Care Time Minutes spent in assessing patient, reviewing laboratory data and Xray images, making therapeutic decisions and implementing care plan excluding time spent in separately billiable procedures. I was in the unit immediately available to the patient and their nurse, devoting my fullattention to them during this time. Clinical decisions and medication choices may have been tempered by the national shortage of several medications and/or IV Fluids. These shortages include, but are not limited to, standard electrolytes & vitamins. In addition, there is a worldwide shortage of heparin. Administration is limited by protocols which have been put in place by the [facility] system to preserve limited supplies. * Alpa Galindo OT - 11/24/2021 3:41 PM CDT Occupational Therapy 11/24/21 1541 General OT Received On 11/24/21 OT Missed Visit Reason Other (comment) (Per RN, pt is independent and does not demonstrate need for skilled OT services. OT will sign off.Please re-consult if change in functional status.) * Isabel Swain DPT - 11/24/2021 9:18 AM CDT Physical Therapy 11/24/21 0917 General PT Received On 11/24/21 Subjective Comment RN reports patient is independent, no PT needs, discharge inpatient PT order, please re-consult if status changes * Kenroy Horan MD - 11/24/2021 7:49 AM CDT CRITICAL CARE MEDICINE PROGRESS NOTE Indication For ICU Admission; DKA Interval History; anion gap resolved VITAL SIGNS PHYSICAL EXAM Tmax : Afebrile HEENT : HR : 70-90 CVC Site : BP : 120/70 Lungs : Diminished bases bilaterally I / O : Not charted Cardiac : RRR Urine : Abdomen : Nontender NG/OG : Extremities : 1+ pulses Stool : Neuro : Awake & alert Drain : Skin : Bilateral great toe ingrown toenails Lines & Catheters: Infusions : Insulin VENTILATOR LABS All pertinent data from last 24 hours reviewed and include; ABG : Chemistries : Recent Labs Lab Units 11/24/21 0649 11/24/21 0436 11/24/21 0358 11/23/21 2048 11/23/21 1652 11/23/21 1306 SODIUM mmol/L 132* -- 130* 130* < > -- POTASSIUM PLASMA mmol/L 3.6 -- See Comment See Comment < > -- CHLORIDE mmol/L 100 -- 98 95* < > -- CO2 mmol/L 18* -- 19* 19* < > -- BUN SERUM mg/dL 9 -- 11 12 < > -- CREATININE mg/dL 0.49* -- 0.59* 0.35* < > -- MAGNESIUM mg/dL -- 1.5 1.6 -- -- -- PHOSPHORUS PLASMA mg/dL -- 3.4 See Comment -- -- -- CALCIUM mg/dL 8.2* -- 8.1* 8.3* < > -- LACTATE POC mmol/L -- -- -- -- -- <0.5* < > = values in this interval not displayed. Recent Labs Lab Units 11/24/21 0649 11/23/21 2048 TRIGLYCERIDES mg/dL 2,291* See Comment All radiologic images over the past 24 hours were personally reviewed. Assessment & Plan Neuro : Depression; Cymbalta Pulmonary : Cardiac : Hypertension; beta-blockers & Landon inhibitors GI : Renal : Pseudo hyponatremia secondary to hyperglycemia & hypertriglyceridemia Adjust medication dosages as needed for degree of renal insufficiency and avoid nephrotoxic agents. ID : Ingrown toenails; Cefazolin. Outpatient podiatry evaluation. Hematology : Hemoglobin decreased, markedly dehydrated on admission. CBC : Recent Labs Lab Units 11/24/21 0358 11/22/21 2323 WBC K/cumm 4.2 5.1 HEMOGLOBIN g/dL 14.8 18.7* PLATELETS K/cumm 216 283 Endocrine : DKA. Insulin infusion. Anion gap has resolved. Recent Labs Lab Units 11/24/21 0649 11/24/21 0606 11/24/21 0512 11/24/21 0407 11/24/21 0358 11/24/21 0305 11/24/21 0201 11/24/21 0043 11/23/21 2339 11/23/21 2246 GLUCOSE mg/dL 229* -- -- -- 252* -- -- -- -- -- POC GLUCOSE MONITOR mg/dL -- 256* 265* 266* -- 273* 256* 242* 240* 207* Other : Hypertriglyceridemia; continue insulin infusion. Fenofibrate & statin therapy. Obesity with BMI 43 Nutrition : Diet DVT Prophylaxis : LMWH with bariatric dose modification Stress Ulcer Prophylaxis : Critical Care Time 37 Minutes spent in assessing patient, reviewing laboratory data and Xray images, making therapeutic decisions and implementing care plan excluding time spent in separately billiable procedures. I was in the unit immediately available to the patient and their nurse, devoting my full attention to them during this time. Clinical decisions and medication choices may have been tempered by the national shortage of several medications and/or IV Fluids. These shortages include, but are not limited to, standard electrolytes & vitamins. In addition, there is a worldwide shortage of heparin. Administration is limited by protocols which have been put in place by the [facility] system to preserve limited supplies. * Delmer Harmon, [facility] - 11/24/2021 1:53 AM CDT Pharmacy Note - Cefazolin Dosing Cefazolin will be dose adjusted to 2 gram(s) every 8 hours for skin/soft tissue infection accordingto the following pharmacy dosing guidelines, based on Estimated Creatinine Clearance: 456.4 mL/min (A) (by C-G formula based on SCr of 0.35 mg/dL (L)). CrCl (mL/min) Usual Dose Severe infections and/or weight >= 80 kg > 34 1 gm every 8 hours 2 gm every 8 hours 11 - 34 1 gm every 12 hours 2 gm every 12 hours < 11 1 gm every 24 hours 1 gm every 24 hours Hemodialysis 1 1 gm every 24 hours 1 gm every 24 hours Peritoneal Dialysis 1 gm every 24 hours 1 gm every 24 hours CVVHDF 2 gm every 12 hours 2 gm every 12 hours Severe infections include, but are not limited to: bloodstream infections, endocarditis, pneumonia,bone/joint infections, severe/necrotizing skin and soft tissue infections 1 Alternative: weekly regimen of 2 gm/2 gm/3 gm given three times weekly after intermittent hemodialysis sessions can be utilized. Doses should be given after hemodialysis Certain types of infections may require different therapy due to severity of infection or the presence of a specific organism. Doses may be adjusted based on laboratory results and the pharmacokinetic and pharmacodynamic principles of the medication and the patient. A serum creatinine should be measured at least weekly. Delmer Harmon PharmD - 11/24/21 1:53 AM documented in this encounter H&P Notes * Isidro Leyva MD - 11/24/2021 2:00 AM CDT Critical Care Admission Note REASON FOR ICU ADMISSION: DKA HISTORY OF PRESENT ILLNESS: 25 yo with hx of obesity, DM presents with DKA. Initially presented to OSH and started on insulin gtt. Transferred to [facility] for further care. Patient reports compliance with insulin and DM diet. Denies any uri symptoms but reports a sore throat 3-4 days ago. Denies fever, chest pain, or shortness of breath. PAST MEDICAL HISTORY: Past Medical History: Diagnosis Date ??? Anxiety ??? Depression ??? Diabetes mellitus (HCC) ??? Disordered sleep 10/13/2017 ??? HTN (hypertension) ??? Metabolic syndrome ??? Morbid obesity with BMI of 50.0-59.9, adult (CMS/HCC) (HCC) 07/10/2017 ??? Pneumonia due to COVID-19 virus 01/15/2020 PAST SURGICAL HISTORY: No past surgical history on file. ALLERGIES: No Known Allergies HOME MEDICATIONS: Medications Prior to Admission Medication Sig Dispense Refill Last Dose ??? carvediloL (COREG) 25 mg tablet Take 1 tablet (25 mg total) by mouth 2 (two) times a day with meals 180 tablet 3 Past Week at Unknown time ??? DULoxetine DR (CYMBALTA) 60 mg capsule Take 1 capsule (60 mg total) by mouth daily 90 capsule 1Past Week at Unknown time ??? glucagon 1 mg injection ??? insulin lispro (HumaLOG, ADMELOG) 100 unit/mL vial for injection Inject 26 Units under the skin3 (three) times a day before meals ??? insulin regular U-500 (HumuLIN R) 500 unit/mL CONCENTRATED vial for injection Inject 120 Units under the skin 3 (three) times a day before meals Past Week at Unknown time ??? lisinopriL (PRINIVIL,ZESTRIL) 20 mg tablet Take 1 tablet (20 mg total) by mouth daily 90 tablet3 Past Week at Unknown time ??? metFORMIN (GLUCOPHAGE) 500 mg tablet Take 1,000 mg by mouth 2 (two) times a day with meals PastWeek at Unknown time SOCIAL HISTORY: Social History Tobacco Use ??? Smoking status: Never Smoker ??? Smokeless tobacco: Former User Types: Chew Quit date: 01/13/2019 Substance and Sexual Activity ??? Drug use: Yes Types: Tobacco Comment: chewing tobacco ??? Sexual activity: Defer Alcohol Use: Not on file FAMILY HISTORY: Family History Problem Relation Age of Onset ??? Diabetes Mother Family history of diabetes mellitus - (Added by TW Conv) ??? Obesity Mother REVIEW OF SYSTEMS: Please refer to history of present illness. All other systems were reviewed and are otherwise negative. PHYSICAL EXAM: BP 135/87 (BP Location: Left arm, Patient Position: Lying) Pulse 76 Temp 36.1 ??C (97 ??F) (Temporal) Resp 18 Ht 205.7 cm (6' 9 ) Wt (!) 180.7 kg (398 lb 5.9 oz) SpO2 96% BMI 42.69 kg/m?? No intake/output data recorded. GENERAL: Well appearing, obese male. NAD HEENT: Sclerae anicteric. Oropharynx clear, MMM CARDIOVASCULAR: RRR, S1, S2. No murmurs/rubs/gallops LUNGS: CTAB. No wheezes/rhonchi/crackles ABDOMEN: Soft, not distended. Non tender. +BS EXTREMITIES: Warm, no peripheral edema. 2+ pulses bilat LE. bilat hallux ingrown nail with erythema SKIN: No rashes NEURO: AOx3. CN II-XII grossly intact DATA: All pertinent data over the last 24 hours reviewed in [facility] and / or Clinical desktop. All radiologic images over the past 24 hours were personally reviewed. Notable findings include: Recent Labs Lab Units 11/22/21 2323 WBC K/cumm 5.1 HEMOGLOBIN g/dL 18.7* HEMATOCRIT % 40.2 PLATELETS K/cumm 283 Recent Labs Lab Units 11/24/21 0043 11/23/218 11/23/21 2048 SODIUM mmol/L -- -- 130* POTASSIUM PLASMA mmol/L -- -- See Comment CHLORIDE mmol/L -- -- 95* CO2 mmol/L -- -- 19* ANIONGAP mmol/L -- -- 16* BUN SERUM mg/dL -- -- 12 CREATININE mg/dL -- -- 0.35* GLUCOSE mg/dL -- -- 166 POC GLUCOSE MONITOR mg/dL 242* < > -- CALCIUM mg/dL -- -- 8.3* < > = values in this interval not displayed. Assessment and Plan 25 yo with hx of obesity, DM presents with DKA Neuro: no acute issues Cards: htn - cont home coreg/lisinopril Pulm: no acute issues Renal: hyponatremia - cont to monitor ID:Ingrown toenails - cont cefazolin - outpatient podiatry followup Heme: no acute issues Endo: DKA - cont insulin gtt - monitor bmp - attempt to transition in AM GI: no acute issues VT prophy: lovenox Nutrition: npo GI prophy: none Code Status full Total Critical Care time = 35 minutes spent in assessing patient, making therapeutic decisions, implementing the care plan and performing serial reassessments of response to therapy. I was in the unit immediately available to the patient and devoted my full attention to them during this time. This e xcludes times spent in separately billiable procedures. Isidro Leyva MD, PCCM documented in this encounter Consult Notes * Jeanette Garcia, RN - 11/24/2021 2:33 PM CDTAssociated Order(s): IP CONSULT TO CORPORATE TRAVEL MANAGER Geraldo Velez [id number] Isidro Leyva MD Pre-Education Assessment Units of Service: 2 Introduction: ID verified, Alert/ oriented x 4, Patient present for education Treatment Prior To Admission: Diet, Blood glucose monitoring, Insulin Knowledge Base: Experienced Hemaglobin A1c: Knows value Home Testing: Greater than 2 times per day Adherence To: Diet, Carb counting, Insulin regimen, Blood Glucose Testing Regimen, Misses greater than 2 times per week Exercise Habits: Active Hypoglycemia: Hardly ever Home Supplies: Yes needs assistance Diabetes Management Education Provided: Please see the Patient Education Activity Patient admitted foe DKA. Patient admitted from OSH. Patient diagnosed with diabetes at age 21. Patient requires high doses of insulin and uses u500 insulin. Patient stated he had no insurance at onetime but is now on his parents insurance until is new insurance is active in December. 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 Patient currently has access to insulin and is compliant at this time. Patient does struggle with consistency when eating meals and food choices. Mother is at bedside and very supportive. 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 Struggles with consistent meal times. Patient also struggles with food choices and portion control. Discussed bringing lunch and snacks to work to better manage food intake and blood sugars. Patient voiced he drinks water, gatorade zero, and diet soda at times. Patient struggles with portion control with carbs and is unsure of how many carbs to eat per meal. Instructed on meal prep using the plate method which includes portion control, food choices, carb counting, and eating in moderation. Reviewed how to count carbs using sample food label with total carbs per serving. Common carbohydrate food list given with carb count included. Instructed on total carb per meal should be maintained between 45-60 grams. Reviewed 15 gram carb snack list as a reference for snack options in lieu of sugary treats. When drinking beverages other than water, choose diet carbonated soda or sugar free drink mixes that can be added to water. Do notskip meals and try to eat around the same times each day. Patient voiced understanding and handoutsprovided and left at the bedside. Blood glucose monitoring: Patient used Dexcom in the past and wa unable to afford once his insurance was terminated. Patient will have his own insurance in one month and will pursue the Dexcom. Patient given Libre2 sample for now. Patient stated he can better manage his blood sugars with CGM. Patient also has glucometer and supplies in home for back up plan. Instructed on signs and symptoms of hyper/hypoglycemia. Patient able to verbalize symptoms for hypoglycemia per handout. Instructed on how to treat low blood sugars by checking your blood glucose right away, eat 3- 4 glucose tabs or 3-5 pieces of hard candy such as peppermint, or by drinking 4 ounces of fruit juice or regular soda. Wait 15 minutes and check blood glucose again. If symptoms persist, call your provider. Discussed how to prevent episodes of low blood sugars in the future. Patient able to verbalize symptoms of hyperglycemia per handout and how to manage by checking blood glucose frequently and how to prevent future episodes of high blood sugars. If blood glucose levels are higher than your goal for 3 days and you don't know why, call your provider. Patient voiced understanding of information discussed. Medication: Patient on high doses of insulin and uses u500 and humulin for blood sugar control. Patient now has consistent access to insulin due to being on parent's insurance. Patient's own insurance will activate in December. Patient stated he is compliant with insulin when he has access to it. Exercise: Instructed on importance of exercise as it relates to controlling blood sugars and overall management of Diabetes. Encouraged 30 minutes of uninterrupted activity daily to engage muscle usewhich aids in burning glucose and promotes weight loss. Patient given equipment and information for reference if needed in home setting. Patient and motherappreciative of consultation. Discharge Recommendations [place]: Ultra fine 4 mm Jeanette Garcia RN, Rn Manager 11/24/2021 2:33 PM * Vira Vora MD - 11/24/2021 1:02 PM CDTAssociated Order(s): IP CONSULT TO ENDOCRINOLOGY; IP CONSULT TO ENDOCRINOLOGY Endocrine Diabetes Consult Reason for Consult: Diabetes Requesting Provider: Dr Horan Subjective Patient is a 25 y.o. male with chief complaint of HPI: Patient is a young 25-year-old with class 3 obesity with BMI of 42, diabetes, metabolic syndrome who presents with diabetic ketoacidosis. Patient also noted to have triglycerides > 2000 today AM. ON CLD, tolerating. No H/O heavy ETOH intake. Never had pancreatitis in the past. No family history of high triglycerides but his mother has diabetes. Also noted to have Hgb A1C of 10.9 % 11/24. Patient on huge amounts of insulin with U 500- a 120 units q.a.c. t.i.d. Humalog 25 units q.a.c. t.i.d. Pt has insulin resistance with huge insulin needs as OP, he tries to be compliant with insulin intake. But there issues with access to insulin with insurance issues in the recent past. Patient now noted to have a new job and is soon to get his own insurance coverage. Past Medical History: Diagnosis Date ??? Anxiety ??? Depression ??? Diabetes mellitus (HCC) ??? Disordered sleep 10/13/2017 ??? HTN (hypertension) ??? Metabolic syndrome ??? Morbid obesity with BMI of 50.0-59.9, adult (CMS/HCC) (HCC) 07/10/2017 ??? Pneumonia due to COVID-19 virus 01/15/2020 No past surgical history on file. Medications Prior to Admission Medication Sig Dispense Refill Last Dose ??? carvediloL (COREG) 25 mg tablet Take 1 tablet (25 mg total) by mouth 2 (two) times a day with meals 180 tablet 3 Past Week at Unknown time ??? DULoxetine DR (CYMBALTA) 60 mg capsule Take 1 capsule (60 mg total) by mouth daily 90 capsule 1Past Week at Unknown time ??? glucagon 1 mg injection ??? insulin lispro (HumaLOG, ADMELOG) 100 unit/mL vial for injection Inject 26 Units under the skin3 (three) times a day before meals ??? insulin regular U-500 (HumuLIN R) 500 unit/mL CONCENTRATED vial for injection Inject 120 Units under the skin 3 (three) times a day before meals Past Week at Unknown time ??? lisinopriL (PRINIVIL,ZESTRIL) 20 mg tablet Take 1 tablet (20 mg total) by mouth daily 90 tablet3 Past Week at Unknown time ??? metFORMIN (GLUCOPHAGE) 500 mg tablet Take 1,000 mg by mouth 2 (two) times a day with meals PastWeek at Unknown time No Known Allergies Social History Tobacco Use ??? Smoking status: Never Smoker ??? Smokeless tobacco: Former User Types: Chew Quit date: 01/13/2019 Substance and Sexual Activity ??? Drug use: Yes Types: Tobacco Comment: chewing tobacco ??? Sexual activity: Defer Alcohol Use: Not on file Family History Problem Relation Age of Onset ??? Diabetes Mother Family history of diabetes mellitus - (Added by TW Conv) ??? Obesity Mother Review of Systems: Review of systems per HPI and otherwise all other systems are negative Objective Vitals: 24hr Min/Max: Temp Min: 36.1 ??C (97 ??F) Max: 36.6 ??C (97.8 ??F) Pulse Min: 70 Max: 89 BP Min: 114/65 Max: 157/105 Resp Min: 10 Max: 24 SpO2 Min: 95 % Max: 98 % Most Recent : Vitals: 11/24/21 1200 BP: Pulse: 79 Resp: 16 Temp: SpO2: 95% I/O last 2 completed shifts: In: - Out: 220 [Urine:220] I/O this shift: In: - Out: 850 [Urine:850] Physical Exam: General appearance:appears stated age and cooperative Back: range of motion normal Lungs: clear to auscultation bilaterally Heart: regular rate and rhythm Abdomen: soft, non-tender; bowel sounds normal; no masses, no organomegaly Neurologic: Alert and oriented x4, non-focal Lab/Radiology/Diagnostic Review: Laboratory review: POC Glucose: Lab Results Component Value Date GLUCOSE 181 (H) 11/24/2021 GLUCOSE 162 11/24/2021 Assessment /Plan Principal Problem: DKA, type 1, not at goal (CMS/HCC) (HCC) Uncontrolled DM-2 Metabolic syndrome Class 3 obesity with BMI of 42 1. Hypertriglyceridemia secondary to uncontrolled diabetes with insulin resistance: Patient advised to be NPO earlier in the day to improve his triglycerides of > 2000. By evening time triglyceride level down to 800. Patient keen on p.o. intake. Start with full liquid diet with advance to DM diet in AM. Advised to continue effort with diabetescontrol of to help improve his triglycerides. 2. Uncontrolled type 2 diabetes with metabolic syndrome/ insulin resistance: Class 3 obesity with BMI of 42 noted. OP requirements > 400 units/ daily. Patient noted to be an 7-15 units/hr of IV insulin Since patient is much improved clinically, his diabetic ketoacidosis being resolved, triglycerides coming down 800. We will begin the process of transitioning off IV insulin to subcu insulin tonight. Basal bolus as follows Will start Lantus 100 units q.p.m. Humalog 15 units q.a.c. t.i.d. Juan Ramon High-dose sliding scale coverage once of IV insulin completely Patient initiated on full liquid diet with plans to advance to DM diet in AM. Again discussed with patient importance of controlling his diabetes to help improve his triglycerides. Patient receptive to advise. Discussed with Dr. Horan, ICU nurse. Appreciate consult, will follow Vira Vora MD [facility] Office phone: [phone] Office fax: [phone] documented in this encounter Miscellaneous Notes * Plan of Care - Judith Ware RN - 11/27/2021 3:17 PM CDT DISPO: Home w/self care * Plan of Care - Zenaida Chua RN - 11/27/2021 5:36 AM CDT Problem: Cardiac: Goal: Ability to maintain an adequate cardiac output will improve Outcome: Progressing Problem: Lack of Knowledge: Goal: Ability to describe self-care measures that may prevent or decrease complications will improve Outcome: Progressing Goal: Knowledge of disease or condition will improve Outcome: Progressing Goal: Ability to manage health-related needs will improve Outcome: Progressing Goal: Knowledge of prevention and discharge planning will improve Outcome: Progressing Problem: Fluid Volume: Goal: Will maintain adequate fluid volume Outcome: Progressing Goal: Signs and symptoms of dehydration will decrease Outcome: Progressing Problem: Metabolic: Goal: Ability to maintain appropriate glucose levels will improve Outcome: Progressing Goal: Complications related to the disease process, condition or treatment will be avoided or minimized Outcome: Progressing Problem: Nutritional: Goal: Maintenance of adequate weight for body size and type will improve Outcome: Progressing Problem: Physical Regulation: Goal: Pain level will decrease Outcome: Progressing Problem: Respiratory: Goal: Peripheral tissue perfusion will improve Outcome: Progressing Problem: Urinary Elimination: Goal: Ability to achieve and maintain adequate renal perfusion and functioning will improve Outcome: Progressing Problem: Health Behavior: Goal: Understanding of discharge needs will improve Outcome: Progressing Goals: Clinical Goals for the Shift: 1)optimal glucose control 2)comfort/rest Summary: Patient has done well through the night. Glucose has been optimal. Possible DC later today? Await day team for further evaluation. * Plan of Care - Judith Ware RN - 11/26/2021 8:16 PM CDT CM Initial Assessment Interview Note Information Obtained From: Patient (11/26/212005) Admission Source: Tx from [facility] [facility] ER to ICU Impression: DKA and hypertriglyceride Plan Includes: Iv insulin gtt, RN dm education, Endo guidance for DKA and elev Triglycerides. Primary Source of Transportation: Has discharge transport been arranged?: Yes (11/24/21115) Health Insurance Coverage: [facility] --Pt's fathers insurance coverage. Pt will have insurance through [facility]. Prescription Coverage: Yes [facility] [facility] [employer] [facility] [place] [id number] Primary Care Provider: Pt has been following in [facility]--He plans to obtain PCP when hispersonal insurance will cover, He states he has been following w/DR Peter Styles (modesta) at the [facility]. He has an appt on 01/04/22 - encouraged him to f/u w/Modesta bryson prior to that since he has been hospitalized w/DKA. Pt states he will. Prior to Admission: Primary Caregiver: Self Support System: Spouse/Significant Other Support system contact info (name, phone, availablity): Leatha Velez Mother [phone] ---no number for Girlfriend Home Care Services: No Durable Medical Equipment: Diabetic Supplies Living Arrangements: Spouse/significant other Type of Residence: Apartment (11/26/212005) SDOH: Transportation Needs: No Transportation Needs ??? Lack of Transportation (Medical): No ??? Lack of Transportation (Non-Medical): No Financial Resource Strain: Low Risk ??? Difficulty of Paying Living Expenses: Not hard at all Housing Stability: Not on file Social Connections: Moderately Isolated ??? Frequency of Communication with Friends and Family: More than three times a week ??? Frequency of Social Gatherings with Friends and Family: More than three times a week ??? Attends Anglican Services: Never ??? Active Member of Clubs or Organizations: No ??? Attends Club or Organization Meetings: Never ??? Marital Status: Living with partner Food Insecurity: No Food Insecurity ??? Worried About Running Out of Food in the Last Year: Never true ??? Ran Out of Food in the Last Year: Never true Tobacco Use: Medium Risk ??? Smoking Tobacco Use: Never Smoker ??? Smokeless Tobacco Use: Former User Alcohol Use: Not on file E-Cigarette/Vaping Questions Responses E-cigarette/Vaping Use Never User Potential discharge needs include: Home Health: (gave pt list of Podiatrists in his insurance network close to his address.) (11/26/212005) Patient expects to be Discharged to: Private residence, (11/26/212005) Additional Information: Expect pt to dc soon since the insulin gtt has been shut off this pm. Notedmany notes re: Pratik [employer]. Geraldo did accept the Podiatry list. States he will f/u w/one for the issues he is having. Patient's Identified Problem/Goal Problem: Ensure acute medical needs are met and that patient has a safe discharge plan. Goal: Secure a discharge plan that patient/family are agreeable with and ensure patient has continuum of care. Case management will follow for discharge planning and send referrals as needed. Goals include: To assure continuity of care, To maximize coping skills, To assure patient is in a safe environment and To assure access to community resources. Plan includes: 1. Collaboration with patient, MD, direct care nurse, Electrical Engineering Technician, Nurse Coordinator and other members of the health care team to assure needed interventions completed. 2. Return patient to optimal level of self-care post discharge. 3. Energy Efficient Site Manager will follow for Discharge Planning - interventions as needed 4. Anticipated level of care at discharge 5. Planned Discharge Disposition Judith Ware RN * Plan of Care - Annika Toledo RN - 11/26/2021 6:28 PM CDT Goals: Clinical Goals for the Shift: Blood glucose control, vss, comfort control, diabetes education Summary: Improved blood sugars today. Insulin drip stopped this evening. VSS. Eating all of meals. No nausea. * Plan of Care - Zenaida Chua RN - 11/25/2021 5:54 AM CDT Problem: Cardiac: Goal: Ability to maintain an adequate cardiac output will improve Outcome: Progressing Problem: Lack of Knowledge: Goal: Ability to describe self-care measures that may prevent or decrease complications will improve Outcome: Progressing Goal: Knowledge of disease or condition will improve Outcome: Progressing Goal: Ability to manage health-related needs will improve Outcome: Progressing Goal: Knowledge of prevention and discharge planning will improve Outcome: Progressing Problem: Fluid Volume: Goal: Will maintain adequate fluid volume Outcome: Progressing Goal: Signs and symptoms of dehydration will decrease Outcome: Progressing Problem: Metabolic: Goal: Ability to maintain appropriate glucose levels will improve Outcome: Progressing Goal: Complications related to the disease process, condition or treatment will be avoided or minimized Outcome: Progressing Problem: Nutritional: Goal: Maintenance of adequate weight for body size and type will improve Outcome: Progressing Problem: Physical Regulation: Goal: Pain level will decrease Outcome: Progressing Problem: Respiratory: Goal: Peripheral tissue perfusion will improve Outcome: Progressing Problem: Urinary Elimination: Goal: Ability to achieve and maintain adequate renal perfusion and functioning will improve Outcome: Progressing Goals: Clinical Goals for the Shift: 1)optimal glucose control 2)improved triglycerides 3)comfort/rest Summary: Patient has done well through the night. Insulin gtt most likely to come off this AM, latus started by multi spindle operator last night, D5W stopped per endocrine. Await day team for further plan of care. * Plan of Care - Deb Swanson RN - 11/24/2021 12:36 PM CDT Problem: Cardiac: Goal: Ability to maintain an adequate cardiac output will improve Outcome: Progressing Problem: Lack of Knowledge: Goal: Ability to describe self-care measures that may prevent or decrease complications will improve Outcome: Progressing Goal: Knowledge of disease or condition will improve Outcome: Progressing Goal: Ability to manage health-related needs will improve Outcome: Progressing Goal: Knowledge of prevention and discharge planning will improve Outcome: Progressing Problem: Fluid Volume: Goal: Will maintain adequate fluid volume Outcome: Progressing Goal: Signs and symptoms of dehydration will decrease Outcome: Progressing Problem: Metabolic: Goal: Ability to maintain appropriate glucose levels will improve Outcome: Progressing Goal: Complications related to the disease process, condition or treatment will be avoided or minimized Outcome: Progressing Problem: Nutritional: Goal: Maintenance of adequate weight for body size and type will improve Outcome: Progressing Problem: Physical Regulation: Goal: Pain level will decrease Outcome: Progressing Problem: Respiratory: Goal: Peripheral tissue perfusion will improve Outcome: Progressing Problem: Urinary Elimination: Goal: Ability to achieve and maintain adequate renal perfusion and functioning will improve Outcome: Progressing Goals: Clinical Goals for the Shift: insulin gtt monitor labs db and c amb diabetic teaching Summary: dka resolved the pt has elevated triglycerides and is NPO on an insulin gtt documented in this encounter Plan of Treatment Not on file documented as of this encounter Procedures Procedure Name Priority Date/Time Associated Diagnosis Comments POCT GLUCOSE DEVICE Routine 11/27/2021 1 2:46 PM CDT POCT GLUCOSE DEVICE Routine 11/27/2021 8 :47 AM CDT EGFR Routine 11/27/2021 5:56 AM CDT MAGNESIUM Routine 11/27/2021 5:56 AM CDT RENAL FUNCTION PANEL Routine 11/27/2021 5:56 AM CDT POCT GLUCOSE DEVICE Routine 11/27/2021 1 :30 AM CDT POCT GLUCOSE DEVICE Routine 11/26/2021 9 :00 PM CDT POCT GLUCOSE DEVICE Routine 11/26/2021 5 :20 PM CDT POCT GLUCOSE DEVICE Routine 11/26/2021 2 :11 PM CDT POCT GLUCOSE DEVICE Routine 11/26/2021 1 2:40 PM CDT POCT GLUCOSE DEVICE Routine 11/26/2021 1 1:16 AM CDT POCT GLUCOSE DEVICE Routine 11/26/2021 9 :51 AM CDT POCT GLUCOSE DEVICE Routine 11/26/2021 8 :24 AM CDT POCT GLUCOSE DEVICE Routine 11/26/2021 6 :31 AM CDT POCT GLUCOSE DEVICE Routine 11/26/2021 4 :40 AM CDT POCT GLUCOSE DEVICE Routine 11/26/2021 3 :02 AM CDT EGFR Routine 11/26/2021 2:01 AM CDT CBC WITHOUT DIFFERENTIAL Routine 11/26/2021 2:01 AM CDT TRIGLYCERIDES Routine 11/26/2021 2:01 AM CDT MAGNESIUM Routine 11/26/2021 2:01 AM CDT RENAL FUNCTION PANEL Routine 11/26/2021 2:01 AM CDT POCT GLUCOSE DEVICE Routine 11/26/2021 1 :22 AM CDT POCT GLUCOSE DEVICE Routine 11/26/2021 1 2:02 AM CDT POCT GLUCOSE DEVICE Routine 11/25/2021 1 1:00 PM CDT POCT GLUCOSE DEVICE Routine 11/25/2021 9 :37 PM CDT POCT GLUCOSE DEVICE Routine 11/25/2021 8 :11 PM CDT POCT GLUCOSE DEVICE Routine 11/25/2021 6 :31 PM CDT POCT GLUCOSE DEVICE Routine 11/25/2021 5 :40 PM CDT POCT GLUCOSE DEVICE Routine 11/25/2021 4 :39 PM CDT POCT GLUCOSE DEVICE Routine 11/25/2021 3 :41 PM CDT POCT GLUCOSE DEVICE Routine 11/25/2021 2 :49 PM CDT POCT GLUCOSE DEVICE Routine 11/25/2021 1 :42 PM CDT POCT GLUCOSE DEVICE Routine 11/25/2021 1 2:44 PM CDT POCT GLUCOSE DEVICE Routine 11/25/2021 1 1:46 AM CDT POCT GLUCOSE DEVICE Routine 11/25/2021 1 0:37 AM CDT POCT GLUCOSE DEVICE Routine 11/25/2021 9 :43 AM CDT POCT GLUCOSE DEVICE Routine 11/25/2021 8 :49 AM CDT BLOOD CULTURE STAT 11/25/2021 8:34 AM CDT BLOOD CULTURE STAT 11/25/2021 8:34 AM CDT POCT GLUCOSE DEVICE Routine 11/25/2021 7 :39 AM CDT POCT GLUCOSE DEVICE Routine 11/25/2021 6 :04 AM CDT POCT GLUCOSE DEVICE Routine 11/25/2021 5 :05 AM CDT POCT GLUCOSE DEVICE Routine 11/25/2021 4 :03 AM CDT EGFR Routine 11/25/2021 3:22 AM CDT CBC WITHOUT DIFFERENTIAL Routine 11/25/2021 3:22 AM CDT MAGNESIUM Routine 11/25/2021 3:22 AM CDT RENAL FUNCTION PANEL Routine 11/25/2021 3:22 AM CDT POCT GLUCOSE DEVICE Routine 11/25/2021 2 :58 AM CDT POCT GLUCOSE DEVICE Routine 11/25/2021 1 :41 AM CDT POCT GLUCOSE DEVICE Routine 11/25/2021 1 2:24 AM CDT POCT GLUCOSE DEVICE Routine 11/24/2021 1 1:05 PM CDT POCT GLUCOSE DEVICE Routine 11/24/2021 9 :50 PM CDT POCT GLUCOSE DEVICE Routine 11/24/2021 8 :25 PM CDT POCT GLUCOSE DEVICE Routine 11/24/2021 7 :28 PM CDT POCT GLUCOSE DEVICE Routine 11/24/2021 6 :23 PM CDT POCT GLUCOSE DEVICE Routine 11/24/2021 5 :15 PM CDT POCT GLUCOSE DEVICE Routine 11/24/2021 4 :19 PM CDT EGFR Timed 11/24/2021 3:40 PM CDT TRIGLYCERIDES Timed 11/24/2021 3:40 PM CDT PHOSPHORUS Timed 11/24/2021 3:40 PM CDT MAGNESIUM Timed 11/24/2021 3:40 PM CDT BASIC METABOLIC PANEL Timed 11/24/2021 3:40 PM CDT POCT GLUCOSE DEVICE Routine 11/24/2021 3 :28 PM CDT POCT GLUCOSE DEVICE Routine 11/24/2021 2 :20 PM CDT POCT GLUCOSE DEVICE Routine 11/24/2021 1 :18 PM CDT POCT GLUCOSE DEVICE Routine 11/24/2021 1 2:14 PM CDT POCT GLUCOSE DEVICE Routine 11/24/2021 1 1:19 AM CDT POCT GLUCOSE DEVICE Routine 11/24/2021 1 0:04 AM CDT POCT GLUCOSE DEVICE Routine 11/24/2021 8 :54 AM CDT ADD ON LAB TEST Add-On 11/24/2021 8:03 AM CDT ADD ON LAB TEST Add-On 11/24/2021 8:03 AM CDT POCT GLUCOSE DEVICE Routine 11/24/2021 7 :48 AM CDT ADD ON LAB TEST Add-On 11/24/2021 7:15 AM CDT EGFR Routine 11/24/2021 6:49 AM CDT TRIGLYCERIDES Routine 11/24/2021 6:49 AM CDT LIPASE Routine 11/24/2021 6:49 AM CDT AMYLASE Routine 11/24/2021 6:49 AM CDT BASIC METABOLIC PANEL Routine 11/24/2021 6:49 AM CDT POCT GLUCOSE DEVICE Routine 11/24/2021 6 :06 AM CDT POCT GLUCOSE DEVICE Routine 11/24/2021 5 :12 AM CDT PHOSPHORUS Timed 11/24/2021 4:36 AM CDT MAGNESIUM Timed 11/24/2021 4:36 AM CDT POCT GLUCOSE DEVICE Routine 11/24/2021 4 :07 AM CDT EGFR Timed 11/24/2021 3:58 AM CDT CBC WITHOUT DIFFERENTIAL Routine 11/24/2021 3:58 AM CDT PHOSPHORUS Timed 11/24/2021 3:58 AM CDT MAGNESIUM Routine 11/24/2021 3:58 AM CDT BASIC METABOLIC PANEL Timed 11/24/2021 3:58 AM CDT URINALYSIS AND REFLEX TO MICROSCOPIC AND CULTURE Routine 11/24/2021 3:10 AM CDT URINALYSIS, MICROSCOPIC ONLY Routine 11/24/2021 3:10 AM CDT POCT GLUCOSE DEVICE Routine 11/24/2021 3 :05 AM CDT POCT GLUCOSE DEVICE Routine 11/24/2021 2 :01 AM CDT documented in this encounter Results * POCT glucose (11/27/2021 12:46 PM CDT) [facility] Signature Glucose, POC 85 70 - 140 mg/dL [facility] Comment: For Glucose values <35 mg/dl when Hematocrit is >60 mg/dl,the test may not accurately detect significant hypoglycemia,and testing in the Laboratory should be considered if clinically indicated. Blood 11/27/2021 12:4 6 PM CDT 11/27/2021 12:46 PM CDT Isidro Leyva MD LAB POCT ORDERABLES - DEVICE Final Result Performing Organization Address [facility] de Phone Number [facility] [address] [facility] [employer] [place], [place] [id number] * POCT glucose (11/27/2021 8:47 AM CDT) Glucose, POC 95 70 - 140 mg/dL [facility] Comment: For Glucose values <35 mg/dl when Hematocrit is >60 mg/dl,the test may not accurately detect significant hypoglycemia,and testing in the Laboratory should be considered if clinically indicated. Blood 11/27/2021 8:47 AM CDT 11/27/2021 8:47 AM CDT Isidro Leyva MD LAB POCT ORDERABLES - DEVICE Final Result Performing Organization Address [facility] de Phone Number [facility] [address] [facility] [place] [address] * eGFR (11/27/2021 5:56 AM CDT) eGFR 133 mL/min/1. 73 m2 [facility] Comment: Interpretive Data Reference Interval Normal [...] of Race in Diagnosing Kidney Disease, JASN 202). The CKD-EPI equation should not be used for patients with unstable renal function and has not been validated in children and those over 70. Current interpretive data was last reviewed 2021. Blood 11/27/2021 5:56 AM CDT 11/27/2021 6:16 AM CDT Kenroy Horan MD LAB BLOOD ORDERABLES Final R esult Performing Organization Address City/[facility] Co de Phone Number [facility] [address] [place], [place] [phone] * Magnesium (11/27/2021 5:56 AM CDT) Magnesium 1.8 1.4 - 2.5 mg/dL [facility] Blood 11/27/2021 5:56 AM CDT 11/27/2021 6:16 AM CDT Kenroy Horan MD LAB BLOOD ORDERABLES Final R esult Performing Organization Address [facility] Co de Phone Number [facility] [address] [place] [address] * (ABNORMAL) Renal function panel (11/27/2021 5:56 AM CDT) Sodium 139 135 - 145 mmol/L [facility] Potassium, pl 3.9 3.3 - 4.9 mmol/L [facility] Comment:Hemolyzed; potassium value may be falsely elevated by as much as 0.6 - 1.0 mmol/L. Suggest redraw and reanalysis Chloride 107 97 - 110 mmol/L [facility] CO2 22 22 - 32 mmol/L [facility] Anion gap 10 2 - 15 mmol/L [facility] BUN 6(L) 8 - 25 mg/dL [facility] Creatinine 0.70(L) 0.80 - 1.30 mg/dL [facility] Glucose 93 70 - 199 mg/dL [facility] Comment: Interpretive Data Fasting glucose >/= 126 [...] interpretive data was last revised 2017. Calcium 8.5 8.5 - 10.3 mg/dL [facility] Phosphorus, pl 4.2 2.3 - 4.5 mg/dL [facility] Albumin 3.2(L) 3.5 - 5.0 g/dL [facility] Blood 11/27/2021 5:56 AM CDT 11/27/2021 6:16 AM CDT Kenroy Horan MD LAB BLOOD ORDERABLES Final R esult [facility] [address] Department [place] [address] * POCT glucose (11/27/2021 1:30 AM CDT) Glucose, POC 110 70 - 140 mg/dL [facility] Comment: For Glucose values <35 mg/dl when Hematocrit is >60 mg/dl,the test may not accurately detect significant hypoglycemia,and testing in the Laboratory should be considered if clinically indicated. Blood 11/27/2021 1:30 AM CDT 11/27/2021 1:30 AM CDT us Dequan Nunez MD LAB POCT ORDERABLES - DEVICE Final Result Performing Organization Address [facility]/ZIP Co de Phone Number [facility] [address] [facility] [employer] [place], [place] [phone] * POCT glucose (11/26/2021 9:00 PM CDT) Glucose, POC 129 70 - 140 mg/dL [facility] Comment: For Glucose values <35 mg/dl when Hematocrit is >60 mg/dl,the test may not accurately detect significant hypoglycemia,and testing in the Laboratory should be considered if clinically indicated. Blood 11/26/2021 9:00 PM CDT 11/26/2021 9:00 PM CDT Dequan Nunez MD LAB POCT ORDERABLES - DEVICE Final Result Performing Organization Address [facility] Co de Phone Number [facility] [address] [facility] [place] [address] * POCT glucose (11/26/2021 5:20 PM CDT) Glucose, POC 95 70 - 140 mg/dL [facility] Comment: For Glucose values <35 mg/dl when Hematocrit is >60 mg/dl,the test may not accurately detect significant hypoglycemia,and testing in the Laboratory should be considered if clinically indicated. Blood 11/26/2021 5:20 PM CDT 11/26/2021 5:20 PM CDT Dequan Nunez MD LAB POCT ORDERABLES - DEVICE Final Result Performing Organization Address [facility] Co de Phone Number [facility] [address] [facility] [employer] [place], [place] [id number] * (ABNORMAL) POCT glucose (11/26/2021 2:11 PM CDT) Glucose, POC 166(H) 70 - 140 mg/dL [facility] Comment: For Glucose values <35 mg/dl when Hematocrit is >60 mg/dl,the test may not accurately detect significant hypoglycemia,and testing in the Laboratory should be considered if clinically indicated. Blood 11/26/2021 2:11 PM CDT 11/26/2021 2:11 PM CDT Dequan Nunez MD LAB POCT ORDERABLES - DEVICE Final Result Performing Organization Address [facility] Co de Phone Number [facility] [address] [facility] [place] [address] * POCT glucose (11/26/2021 12:40 PM CDT) Glucose, POC 110 70 - 140 mg/dL [facility] Comment: For Glucose values <35 mg/dl when Hematocrit is >60 mg/dl,the test may not accurately detect significant hypoglycemia,and testing in the Laboratory should be considered if clinically indicated. Blood 11/26/2021 12:4 0 PM CDT 11/26/2021 12:40 PM CDT Result [facility] Dequan Nunez MD LAB POCT ORDERABLES - DEVICE Final Result Performing Organization Address [facility] de Phone Number [facility] [address] [place] [address] * POCT glucose (11/26/2021 11:16 AM CDT) Glucose, POC 116 70 - 140 mg/dL [facility] Comment: For Glucose values <35 mg/dl when Hematocrit is >60 mg/dl,the test may not accurately detect significant hypoglycemia,and testing in the Laboratory should be considered if clinically indicated. Blood 11/26/2021 11:1 6 AM CDT 11/26/2021 11:16 AM CDT Dequan Nunez MD LAB POCT ORDERABLES - DEVICE Final Result Performing Organization Address [facility] Co de Phone Number [facility] [address] [facility] [place] [address] * (ABNORMAL) POCT glucose (11/26/2021 9:51 AM CDT) Glucose, POC 146(H) 70 - 140 mg/dL [facility] Comment: For Glucose values <35 mg/dl when Hematocrit is >60 mg/dl,the test may not accurately detect significant hypoglycemia,and testing in the Laboratory should be considered if clinically indicated. Blood 11/26/2021 9:51 AM CDT 11/26/2021 9:51 AM CDT Dequan Nunez MD LAB POCT ORDERABLES - DEVICE Final Result Performing Organization Address [facility] Co de Phone Number [facility] [address] [facility] [place] [address] * POCT glucose (11/26/2021 8:24 AM CDT) Glucose, POC 140 70 - 140 mg/dL [facility] Comment: For Glucose values <35 mg/dl when Hematocrit is >60 mg/dl,the test may not accurately detect significant hypoglycemia,and testing in the Laboratory should be considered if clinically indicated. Blood 11/26/2021 8:24 AM CDT 11/26/2021 8:24 AM CDT Dequan Nunez MD LAB POCT ORDERABLES - DEVICE Final Result Performing Organization Address City/[facility]/ZIP Co de Phone Number [facility] [address] [facility] [place] [address] * POCT glucose (11/26/2021 6:31 AM CDT) Glucose, POC 129 70 - 140 mg/dL [facility] Comment: For Glucose values <35 mg/dl when Hematocrit is >60 mg/dl,the test may not accurately detect significant hypoglycemia,and testing in the Laboratory should be considered if clinically indicated. Blood 11/26/2021 6:31 AM CDT 11/26/2021 6:31 AM CDT Dequan Nunez MD LAB POCT ORDERABLES - DEVICE Final Result Performing Organization Address [facility] Co de Phone Number [facility] [address] [facility] [place] [address] * POCT glucose (11/26/2021 4:40 AM CDT) Glucose, POC 128 70 - 140 mg/dL [facility] Comment: For Glucose values <35 mg/dl when Hematocrit is >60 mg/dl,the test may not accurately detect significant hypoglycemia,and testing in the Laboratory should be considered if clinically indicated. Blood 11/26/2021 4:40 AM CDT 11/26/2021 4:40 AM CDT Dequan Nunez MD LAB POCT ORDERABLES - DEVICE Final Result Performing Organization Address [facility] de Phone Number [facility] [address] [facility] [place] [address] * POCT glucose (11/26/2021 3:02 AM CDT) Glucose, POC 125 70 - 140 mg/dL [facility] Comment: For Glucose values <35 mg/dl when Hematocrit is >60 mg/dl,the test may not accurately detect significant hypoglycemia,and testing in the Laboratory should be considered if clinically indicated. Blood 11/26/2021 3:02 AM CDT 11/26/2021 3:02 AM CDT Dequan Nunez MD LAB POCT ORDERABLES - DEVICE Final Result Performing Organization Address [facility] Co de Phone Number [facility] [address] [facility] [place] [address] * eGFR (11/26/2021 2:01 AM CDT) eGFR 120 mL/min/1. 73 m2 [facility] Comment: Interpretive Data Reference Interval Normal [...] interpretive data was last reviewed 2021. Blood 11/26/2021 2:01 AM CDT 11/26/2021 2:44 AM CDT us Kenroy Horan MD LAB BLOOD ORDERABLES Final R esult [facility] [address] Department [place] [address] * (ABNORMAL) Triglycerides (11/26/2021 2:01 AM CDT) Triglycerides 1,310(H) <=149 mg/dL [facility] Comment: Interpretive Data Ages < or = [...] Data was last revised on 2017. Blood 11/26/2021 2:01 AM CDT 11/26/2021 2:44 AM CDT us Vira Vora MD LAB BLOOD ORDERABLES Final R esult [facility] [address] Department [place] [address] * (ABNORMAL) CBC without differential (11/26/2021 2:01 AM CDT) WBC 3.4(L) 3.8 - 9.9 K/cumm [facility] Hgb 13.7 13.0 - 17.5 g/dL [facility] Hct 37.4(L) 38.9 - 50.3 % [facility] Plt 166 150 - 400 K/cumm [facility] MPV 10.2 9.1 - 12.3 fL [facility] RBC 4.52 4.30 - 5.80 M/cumm [facility] MCV 82.7 81.3 - 96.4 fL [facility] MCH 30.3 27.1 - 33.3 pg [facility] MCHC 36.6(H) 32.3 - 35.7 g/dL [facility] RDW CV 14.0 11.1 - 14.9 % [facility] RDW SD 41.6 35.7 - 48.1 fL [facility] NRBC abs 0.00 0.00 - 0.01 K/cumm [facility] Blood 11/26/2021 2:01 AM CDT 11/26/2021 2:44 AM CDT Kenroy Horan MD LAB BLOOD ORDERABLES Final R esult Performing Organization Address City/[facility]/ZIP Co de Phone Number [facility] [address] [place] [address] * Magnesium (11/26/2021 2:01 AM CDT) Pathologist [facility] Department Magnesium 1.8 1.4 - 2.5 mg/dL [facility] Blood 11/26/2021 2:01 AM CDT 11/26/2021 2:44 AM CDT Kenroy Horan MD LAB BLOOD ORDERABLES Final R esult Performing Organization Address City/[facility] Co de Phone Number [facility] [address] [place] [address] * (ABNORMAL) Renal function panel (11/26/2021 2:01 AM CDT) Sodium 136 135 - 145 mmol/L [facility] Potassium, pl 3.3 3.3 - 4.9 mmol/L [facility] Chloride 104 97 - 110 mmol/L [facility] CO2 23 22 - 32 mmol/L [facility] Anion gap 9 2 - 15 mmol/L [facility] BUN 7(L) 8 - 25 mg/dL [facility] Creatinine 0.92 0.80 - 1.30 mg/dL [facility] Glucose 154 70 - 199 mg/dL [facility] Comment: Interpretive Data Fasting glucose >/= 126 [...] interpretive data was last revised 2017. Calcium 8.5 8.5 - 10.3 mg/dL [facility] Phosphorus, pl 4.2 2.3 - 4.5 mg/dL [facility] Albumin 3.4(L) 3.5 - 5.0 g/dL [facility] Blood 11/26/2021 2:01 AM CDT 11/26/2021 2:44 AM CDT Kenroy Horan MD LAB BLOOD ORDERABLES Final R esult Performing Organization Address [facility] Co de Phone Number [facility] [address] [employer] [place] [address] * (ABNORMAL) POCT glucose (11/26/2021 1:22 AM CDT) Glucose, POC 151(H) 70 - 140 mg/dL [facility] Comment: For Glucose values <35 mg/dl when Hematocrit is >60 mg/dl,the test may not accurately detect significant hypoglycemia,and testing in the Laboratory should be considered if clinically indicated. Blood 11/26/2021 1:22 AM CDT 11/26/2021 1:22 AM CDT Dequan Nunez MD LAB POCT ORDERABLES - DEVICE Final Result Performing Organization Address [facility] Co de Phone Number [facility] [address] [employer] [place] [address] * (ABNORMAL) POCT glucose (11/26/2021 12:02 AM CDT) Glucose, POC 180(H) 70 - 140 mg/dL [facility] Comment: For Glucose values <35 mg/dl when Hematocrit is >60 mg/dl,the test may not accurately detect significant hypoglycemia,and testing in the Laboratory should be considered if clinically indicated. Blood 11/26/2021 12:0 2 AM CDT 11/26/2021 12:02 AM CDT Dequan Nunez MD LAB POCT ORDERABLES - DEVICE Final Result Performing Organization Address [facility] Co de Phone Number [facility] [address] [place] [address] * (ABNORMAL) POCT glucose (11/25/2021 11:00 PM CDT) Glucose, POC 141(H) 70 - 140 mg/dL [facility] Comment: For Glucose values <35 mg/dl when Hematocrit is >60 mg/dl,the test may not accurately detect significant hypoglycemia,and testing in the Laboratory should be considered if clinically indicated. Blood 11/25/2021 11:0 0 PM CDT 11/25/2021 11:00 PM CDT Dequan Nunez MD LAB POCT ORDERABLES - DEVICE Final Result Performing Organization Address [facility] de Phone Number [facility] [address] [facility] [place] [address] * POCT glucose (11/25/2021 9:37 PM CDT) Glucose, POC 133 70 - 140 mg/dL [facility] Comment: For Glucose values <35 mg/dl when Hematocrit is >60 mg/dl,the test may not accurately detect significant hypoglycemia,and testing in the Laboratory should be considered if clinically indicated. Blood 11/25/2021 9:37 PM CDT 11/25/2021 9:37 PM CDT Dequan Nunez MD LAB POCT ORDERABLES - DEVICE Final Result Performing Organization Address [facility] Co de Phone Number [facility] [address] [facility] [employer] [place], [place] [id number] * (ABNORMAL) POCT glucose (11/25/2021 8:11 PM CDT) Glucose, POC 165(H) 70 - 140 mg/dL [facility] Comment: For Glucose values <35 mg/dl when Hematocrit is >60 mg/dl,the test may not accurately detect significant hypoglycemia,and testing in the Laboratory should be considered if clinically indicated. Blood 11/25/2021 8:11 PM CDT 11/25/2021 8:11 PM CDT Dequan Nunez MD LAB POCT ORDERABLES - DEVICE Final Result Performing Organization Address [facility] de Phone Number [facility] [address] [facility] [place] [address] * (ABNORMAL) POCT glucose (11/25/2021 6:31 PM CDT) Glucose, POC 204(H) 70 - 140 mg/dL [facility] Comment: For Glucose values <35 mg/dl when Hematocrit is >60 mg/dl,the test may not accurately detect significant hypoglycemia,and testing in the Laboratory should be considered if clinically indicated. Blood 11/25/2021 6:31 PM CDT 11/25/2021 6:31 PM CDT Dequan Nunez MD LAB POCT ORDERABLES - DEVICE Final Result Performing Organization Address [facility] Co de Phone Number [facility] [address] [facility] [place] [address] * POCT glucose (11/25/2021 5:40 PM CDT) Glucose, POC 111 70 - 140 mg/dL [facility] Comment: For Glucose values <35 mg/dl when Hematocrit is >60 mg/dl,the test may not accurately detect significant hypoglycemia,and testing in the Laboratory should be considered if clinically indicated. Blood 11/25/2021 5:40 PM CDT 11/25/2021 5:40 PM CDT Dequan Nunez MD LAB POCT ORDERABLES - DEVICE Final Result Performing Organization Address [facility] Co de Phone Number [facility] [address] [facility] [place] [address] * POCT glucose (11/25/2021 4:39 PM CDT) Glucose, POC 110 70 - 140 mg/dL [facility] Comment: For Glucose values <35 mg/dl when Hematocrit is >60 mg/dl,the test may not accurately detect significant hypoglycemia,and testing in the Laboratory should be considered if clinically indicated. Blood 11/25/2021 4:39 PM CDT 11/25/2021 4:39 PM CDT Dequan Nunez MD LAB POCT ORDERABLES - DEVICE Final Result Performing Organization Address [facility] de Phone Number [facility] [address] [facility] [place] [address] * POCT glucose (11/25/2021 3:41 PM CDT) Glucose, POC 124 70 - 140 mg/dL [facility] Comment: For Glucose values <35 mg/dl when Hematocrit is >60 mg/dl,the test may not accurately detect significant hypoglycemia,and testing in the Laboratory should be considered if clinically indicated. Blood 11/25/2021 3:41 PM CDT 11/25/2021 3:41 PM CDT Dequan Nunez MD LAB POCT ORDERABLES - DEVICE Final Result Performing Organization Address [facility] Co de Phone Number [facility] [address] [facility] [employer] [place], [place] [id number] * (ABNORMAL) POCT glucose (11/25/2021 2:49 PM CDT) Glucose, POC 162(H) 70 - 140 mg/dL [facility] Comment: For Glucose values <35 mg/dl when Hematocrit is >60 mg/dl,the test may not accurately detect significant hypoglycemia,and testing in the Laboratory should be considered if clinically indicated. Blood 11/25/2021 2:49 PM CDT 11/25/2021 2:49 PM CDT Dequan Nunez MD LAB POCT ORDERABLES - DEVICE Final Result Performing Organization Address [facility] Co de Phone Number [facility] [address] [facility] [place] [address] * (ABNORMAL) POCT glucose (11/25/2021 1:42 PM CDT) Glucose, POC 191(H) 70 - 140 mg/dL [facility] Comment: For Glucose values <35 mg/dl when Hematocrit is >60 mg/dl,the test may not accurately detect significant hypoglycemia,and testing in the Laboratory should be considered if clinically indicated. Blood 11/25/2021 1:42 PM CDT 11/25/2021 1:42 PM CDT Result [facility] Dequan Nunez MD LAB POCT ORDERABLES - DEVICE Final Result Performing Organization Address [facility] de Phone Number [facility] [address] [facility] [place] [address] * (ABNORMAL) POCT glucose (11/25/2021 12:44 PM CDT) Glucose, POC 163(H) 70 - 140 mg/dL [facility] Comment: For Glucose values <35 mg/dl when Hematocrit is >60 mg/dl,the test may not accurately detect significant hypoglycemia,and testing in the Laboratory should be considered if clinically indicated. Blood 11/25/2021 12:4 4 PM CDT 11/25/2021 12:44 PM CDT Result [facility] Dequan Nunez MD LAB POCT ORDERABLES - DEVICE Final Result Performing Organization Address [facility] Co de Phone Number [facility] [address] [facility] [place] [address] * (ABNORMAL) POCT glucose (11/25/2021 11:46 AM CDT) Glucose, POC 167(H) 70 - 140 mg/dL [facility] Comment: For Glucose values <35 mg/dl when Hematocrit is >60 mg/dl,the test may not accurately detect significant hypoglycemia,and testing in the Laboratory should be considered if clinically indicated. Blood 11/25/2021 11:4 6 AM CDT 11/25/2021 11:46 AM CDT Dequan Nunez MD LAB POCT ORDERABLES - DEVICE Final Result Performing Organization Address [facility] de Phone Number [facility] [address] [facility] [place] [address] * (ABNORMAL) POCT glucose (11/25/2021 10:37 AM CDT) Glucose, POC 168(H) 70 - 140 mg/dL [facility] Comment: For Glucose values <35 mg/dl when Hematocrit is >60 mg/dl,the test may not accurately detect significant hypoglycemia,and testing in the Laboratory should be considered if clinically indicated. Blood 11/25/2021 10:3 7 AM CDT 11/25/2021 10:37 AM CDT Dequan Nunez MD LAB POCT ORDERABLES - DEVICE Final Result Performing Organization Address [facility] Co de Phone Number [facility] [address] [facility] [place] [address] * (ABNORMAL) POCT glucose (11/25/2021 9:43 AM CDT) Glucose, POC 211(H) 70 - 140 mg/dL [facility] Comment: For Glucose values <35 mg/dl when Hematocrit is >60 mg/dl,the test may not accurately detect significant hypoglycemia,and testing in the Laboratory should be considered if clinically indicated. Blood 11/25/2021 9:43 AM CDT 11/25/2021 9:43 AM CDT Dequan Nunez MD LAB POCT ORDERABLES - DEVICE Final Result Performing Organization Address [facility] Co de Phone Number [facility] [address] [place] [address] * (ABNORMAL) POCT glucose (11/25/2021 8:49 AM CDT) Glucose, POC 176(H) 70 - 140 mg/dL [facility] Comment: For Glucose values <35 mg/dl when Hematocrit is >60 mg/dl,the test may not accurately detect significant hypoglycemia,and testing in the Laboratory should be considered if clinically indicated. Blood 11/25/2021 8:49 AM CDT 11/25/2021 8:49 AM CDT Result [facility] Dequan Nunez MD LAB POCT ORDERABLES - DEVICE Final Result Performing Organization Address [facility] de Phone Number [facility] [address] Department [place] [address] * Blood culture Blood (11/25/2021 8:34 AM CDT) Pathologist [facility] Emergency Department Report Final Report: No growth [facility] Blood 11/25/2021 8:34 AM CDT 11/25/2021 8:55 AM CDT Narrative [facility] - 11/30/2021 1:01 PM CDT From a different site than #1. Kenroy Horan MD LAB MICROBIOLOGY - GENERAL O RDERABLES Final Result Performing Organization Address [facility] Co de Phone Number [facility] [address] [employer] [place] [address] * Blood culture Blood (11/25/2021 8:34 AM CDT) Report Final Report: No growth [facility] Blood 11/25/2021 8:34 AM CDT 11/25/2021 8:55 AM CDT Kenroy Horan MD LAB MICROBIOLOGY - GENERAL O RDERABLES Final Result Performing Organization Address [facility] Co de Phone Number [facility] [address] [facility] [place] [address] * (ABNORMAL) POCT glucose (11/25/2021 7:39 AM CDT) Glucose, POC 167(H) 70 - 140 mg/dL [facility] Comment: For Glucose values <35 mg/dl when Hematocrit is >60 mg/dl,the test may not accurately detect significant hypoglycemia,and testing in the Laboratory should be considered if clinically indicated. Blood 11/25/2021 7:39 AM CDT 11/25/2021 7:39 AM CDT Dequan Nunez MD LAB POCT ORDERABLES - DEVICE Final Result Performing Organization Address [facility] de Phone Number [facility] [address] [facility] [place] [address] * (ABNORMAL) POCT glucose (11/25/2021 6:04 AM CDT) Glucose, POC 151(H) 70 - 140 mg/dL [facility] Comment: For Glucose values <35 mg/dl when Hematocrit is >60 mg/dl,the test may not accurately detect significant hypoglycemia,and testing in the Laboratory should be considered if clinically indicated. Blood 11/25/2021 6:04 AM CDT 11/25/2021 6:04 AM CDT Dequan Nunez MD LAB POCT ORDERABLES - DEVICE Final Result Performing Organization Address [facility] Co de Phone Number [facility] [address] Department [place] [address] * POCT glucose (11/25/2021 5:05 AM CDT) Glucose, POC 125 70 - 140 mg/dL [facility] Comment: For Glucose values <35 mg/dl when Hematocrit is >60 mg/dl,the test may not accurately detect significant hypoglycemia,and testing in the Laboratory should be considered if clinically indicated. Blood 11/25/2021 5:05 AM CDT 11/25/2021 5:05 AM CDT Dequan Nunez MD LAB POCT ORDERABLES - DEVICE Final Result Performing Organization Address [facility] Co de Phone Number [facility] [address] [facility] [place] [address] * POCT glucose (11/25/2021 4:03 AM CDT) Pathologist [facility] Glucose, POC 120 70 - 140 mg/dL [facility] Comment: For Glucose values <35 mg/dl when Hematocrit is >60 mg/dl,the test may not accurately detect significant hypoglycemia,and testing in the Laboratory should be considered if clinically indicated. Blood 11/25/2021 4:03 AM CDT 11/25/2021 4:03 AM CDT Dequan Nunez MD LAB POCT ORDERABLES - DEVICE Final Result Performing Organization Address [facility] Co de Phone Number [facility] [address] [place] [address] * eGFR (11/25/2021 3:22 AM CDT) Pathologist [facility] Department eGFR 103 mL/min/1. 73 m2 [facility] Comment: Interpretive Data Reference Interval Normal [...] interpretive data was last reviewed 2021. Blood 11/25/2021 3:22 AM CDT 11/25/2021 3:27 AM CDT us Kenroy Horan MD LAB BLOOD ORDERABLES Final R esult [facility] [address] Department [place] [address] * (ABNORMAL) CBC without differential (11/25/2021 3:22 AM CDT) WBC 5.7 3.8 - 9.9 K/cumm [facility] Hgb 15.9 13.0 - 17.5 g/dL [facility] Hct 44.0 38.9 - 50.3 % [facility] Plt 224 150 - 400 K/cumm [facility] MPV 9.8 9.1 - 12.3 fL [facility] RBC 5.22 4.30 - 5.80 M/cumm [facility] MCV 84.3 81.3 - 96.4 fL [facility] MCH 30.5 27.1 - 33.3 pg [facility] MCHC 36.1(H) 32.3 - 35.7 g/dL [facility] RDW CV 13.7 11.1 - 14.9 % [facility] RDW SD 41.6 35.7 - 48.1 fL [facility] NRBC abs 0.00 0.00 - 0.01 K/cumm [facility] Blood 11/25/2021 3:22 AM CDT 11/25/2021 3:27 AM CDT Kenroy Horan MD LAB BLOOD ORDERABLES Final R esult Performing Organization Address City/[facility]/ZIP Co de Phone Number [facility] [address] [place] [address] * Magnesium (11/25/2021 3:22 AM CDT) [facility] Magnesium 1.9 1.4 - 2.5 mg/dL [facility] Blood 11/25/2021 3:22 AM CDT 11/25/2021 3:27 AM CDT Kenroy Horan MD LAB BLOOD ORDERABLES Final R esult Performing Organization Address [facility] Co de Phone Number [facility] [address] [employer] [place], [place] [id number] * (ABNORMAL) Renal function panel (11/25/2021 3:22 AM CDT) [facility] Sodium 137 135 - 145 mmol/L [facility] Potassium, pl 3.6 3.3 - 4.9 mmol/L [facility] Comment:Hemolyzed; potassium value may be falsely elevated by as much as 0.3 - 0.5 mmol/L. Suggest redraw and reanalysis Chloride 104 97 - 110 mmol/L [facility] CO2 22 22 - 32 mmol/L [facility] Anion gap 11 2 - 15 mmol/L [facility] BUN 7(L) 8 - 25 mg/dL [facility] Creatinine 1.04 0.80 - 1.30 mg/dL [facility] Glucose 138 70 - 199 mg/dL [facility] Comment: Interpretive Data Fasting glucose >/= 126 [...] interpretive data was last revised 2017. Calcium 9.1 8.5 - 10.3 mg/dL [facility] Phosphorus, pl 2.8 2.3 - 4.5 mg/dL [facility] Albumin 3.8 3.5 - 5.0 g/dL [facility] Blood 11/25/2021 3:22 AM CDT 11/25/2021 3:27 AM CDT Kenroy Horan MD LAB BLOOD ORDERABLES Final R esult Performing Organization Address City/[facility]/ZIP Co de Phone Number [facility] [address] [place] [address] * (ABNORMAL) POCT glucose (11/25/2021 2:58 AM CDT) [facility] Signature Glucose, POC 153(H) 70 - 140 mg/dL [facility] Comment: For Glucose values <35 mg/dl when Hematocrit is >60 mg/dl,the test may not accurately detect significant hypoglycemia,and testing in the Laboratory should be considered if clinically indicated. Blood 11/25/2021 2:58 AM CDT 11/25/2021 2:58 AM CDT Dequan Nunez MD LAB POCT ORDERABLES - DEVICE Final Result [facility] [address] Department [place] [address] * (ABNORMAL) POCT glucose (11/25/2021 1:41 AM CDT) Glucose, POC 156(H) 70 - 140 mg/dL [facility] Comment: For Glucose values <35 mg/dl when Hematocrit is >60 mg/dl,the test may not accurately detect significant hypoglycemia,and testing in the Laboratory should be considered if clinically indicated. Blood 11/25/2021 1:41 AM CDT 11/25/2021 1:41 AM CDT Dequan Nunez MD LAB POCT ORDERABLES - DEVICE Final Result Performing Organization Address [facility] Co de Phone Number [facility] [address] [facility] [place] [address] * (ABNORMAL) POCT glucose (11/25/2021 12:24 AM CDT) Glucose, POC 206(H) 70 - 140 mg/dL [facility] Comment: For Glucose values <35 mg/dl when Hematocrit is >60 mg/dl,the test may not accurately detect significant hypoglycemia,and testing in the Laboratory should be considered if clinically indicated. Blood 11/25/2021 12:2 4 AM CDT 11/25/2021 12:24 AM CDT Dequan Nunez MD LAB POCT ORDERABLES - DEVICE Final Result Performing Organization Address [facility] Co de Phone Number [facility] [address] [facility] [place] [address] * (ABNORMAL) POCT glucose (11/24/2021 11:05 PM CDT) Glucose, POC 252(H) 70 - 140 mg/dL [facility] Comment: For Glucose values <35 mg/dl when Hematocrit is >60 mg/dl,the test may not accurately detect significant hypoglycemia,and testing in the Laboratory should be considered if clinically indicated. Blood 11/24/2021 11:0 5 PM CDT 11/24/2021 11:05 PM CDT Dequan Nunez MD LAB POCT ORDERABLES - DEVICE Final Result Performing Organization Address [facility] Co de Phone Number [facility] [address] [facility] [place] [address] * (ABNORMAL) POCT glucose (11/24/2021 9:50 PM CDT) Glucose, POC 206(H) 70 - 140 mg/dL [facility] Comment: For Glucose values <35 mg/dl when Hematocrit is >60 mg/dl,the test may not accurately detect significant hypoglycemia,and testing in the Laboratory should be considered if clinically indicated. Blood 11/24/2021 9:50 PM CDT 11/24/2021 9:50 PM CDT Dequan Nunez MD LAB POCT ORDERABLES - DEVICE Final Result Performing Organization Address [facility] de Phone Number [facility] [address] [facility] [place] [address] * (ABNORMAL) POCT glucose (11/24/2021 8:25 PM CDT) Glucose, POC 181(H) 70 - 140 mg/dL [facility] Comment: For Glucose values <35 mg/dl when Hematocrit is >60 mg/dl,the test may not accurately detect significant hypoglycemia,and testing in the Laboratory should be considered if clinically indicated. Blood 11/24/2021 8:25 PM CDT 11/24/2021 8:25 PM CDT Dequan Nunez MD LAB POCT ORDERABLES - DEVICE Final Result Performing Organization Address The [facility] Co de Phone Number [facility] [address] [facility] [place] [address] * (ABNORMAL) POCT glucose (11/24/2021 7:28 PM CDT) Glucose, POC 168(H) 70 - 140 mg/dL [facility] Comment: For Glucose values <35 mg/dl when Hematocrit is >60 mg/dl,the test may not accurately detect significant hypoglycemia,and testing in the Laboratory should be considered if clinically indicated. Blood 11/24/2021 7:28 PM CDT 11/24/2021 7:28 PM CDT Result [facility] Dequan Nunez MD LAB POCT ORDERABLES - DEVICE Final Result Performing Organization Address [facility] de Phone Number [facility] [address] [facility] [place] [address] * (ABNORMAL) POCT glucose (11/24/2021 6:23 PM CDT) Glucose, POC 168(H) 70 - 140 mg/dL [facility] Comment: For Glucose values <35 mg/dl when Hematocrit is >60 mg/dl,the test may not accurately detect significant hypoglycemia,and testing in the Laboratory should be considered if clinically indicated. Blood 11/24/2021 6:23 PM CDT 11/24/2021 6:23 PM CDT Result [facility] Dequan Nunez MD LAB POCT ORDERABLES - DEVICE Final Result Performing Organization Address [facility] de Phone Number [facility] [address] [facility] [place] [address] * (ABNORMAL) POCT glucose (11/24/2021 5:15 PM CDT) Glucose, POC 176(H) 70 - 140 mg/dL [facility] Comment: For Glucose values <35 mg/dl when Hematocrit is >60 mg/dl,the test may not accurately detect significant hypoglycemia,and testing in the Laboratory should be considered if clinically indicated. Blood 11/24/2021 5:15 PM CDT 11/24/2021 5:15 PM CDT Result [facility] Dequan Nunez MD LAB POCT ORDERABLES - DEVICE Final Result Performing Organization Address [facility] Co de Phone Number [facility] [address] [facility] [place] [address] * (ABNORMAL) POCT glucose (11/24/2021 4:19 PM CDT) Glucose, POC 192(H) 70 - 140 mg/dL [facility] Comment: For Glucose values <35 mg/dl when Hematocrit is >60 mg/dl,the test may not accurately detect significant hypoglycemia,and testing in the Laboratory should be considered if clinically indicated. Blood 11/24/2021 4:19 PM CDT 11/24/2021 4:19 PM CDT Dequan Nunez MD LAB POCT ORDERABLES - DEVICE Final Result Performing Organization Address [facility] de Phone Number [facility] [address] [place] [address] * eGFR (11/24/2021 3:40 PM CDT) eGFR 130 mL/min/1. 73 m2 [facility] Comment: Interpretive Data Reference Interval Normal [...] interpretive data was last reviewed 2021. Blood 11/24/2021 3:40 PM CDT 11/24/2021 4:05 PM CDT us Isidro Leyva MD LAB BLOOD ORDERABLES Final R esult [facility] [address] Department [place] [address] * (ABNORMAL) Triglycerides (11/24/2021 3:40 PM CDT) Triglycerides >885(H) <=149 mg/dL [facility] Comment: Interpretive Data Ages < or [...] Data was last revised on 2017. Blood 11/24/2021 3:40 PM CDT 11/24/2021 3:40 PM CDT us Dequan Nunez MD LAB BLOOD ORDERABLES Final R esult Performing Organization Address City/[facility]/ZIP Co de Phone Number [facility] [address] [facility] [employer] [place], [place] [id number] * Phosphorus (11/24/2021 3:40 PM CDT) Pathologist [facility] Phosphorus, pl 2.8 2.3 - 4.5 mg/dL [facility] Blood 11/24/2021 3:40 PM CDT 11/24/2021 4:05 PM CDT Isidro Leyva MD LAB BLOOD ORDERABLES Final R esult Performing Organization Address [facility] Co de Phone Number [facility] [address] [facility] [place] [address] * Magnesium (11/24/2021 3:40 PM CDT) [facility] Magnesium 1.7 1.4 - 2.5 mg/dL [facility] Blood 11/24/2021 3:40 PM CDT 11/24/2021 4:05 PM CDT us Isidro Leyva MD LAB BLOOD ORDERABLES Final R esult Performing Organization Address [facility] Co de Phone Number [facility] [address] Department [employer] [place], [place] [id number] * (ABNORMAL) Basic metabolic panel (11/24/2021 3:40 PM CDT) Pathologist [facility] Sodium 136 135 - 145 mmol/L [facility] Potassium, pl 3.4 3.3 - 4.9 mmol/L [facility] Comment:Hemolyzed; potassium value may be falsely elevated by as much as 0.3 - 0.5 mmol/L. Suggest redraw and reanalysis Chloride 101 97 - 110 mmol/L [facility] CO2 20(L) 22 - 32 mmol/L [facility] Anion gap 15 2 - 15 mmol/L [facility] BUN 9 8 - 25 mg/dL [facility] Creatinine 0.75(L) 0.80 - 1.30 mg/dL [facility] Glucose 162 70 - 199 mg/dL [facility] Comment: Interpretive Data Fasting glucose >/= 126 [...] interpretive data was last revised 2017. Calcium 8.8 8.5 - 10.3 mg/dL [facility] Blood 11/24/2021 3:40 PM CDT 11/24/2021 4:05 PM CDT us Isidro Leyva MD LAB BLOOD ORDERABLES Final R esult [facility] [address] [place] [address] * (ABNORMAL) POCT glucose (11/24/2021 3:28 PM CDT) [facility] Signature Glucose, POC 167(H) 70 - 140 mg/dL [facility] Comment: For Glucose values <35 mg/dl when Hematocrit is >60 mg/dl,the test may not accurately detect significant hypoglycemia,and testing in the Laboratory should be considered if clinically indicated. Blood 11/24/2021 3:28 PM CDT 11/24/2021 3:28 PM CDT us Dequan Nunez MD LAB POCT ORDERABLES - DEVICE Final Result [facility] [address] Department [place] [address] * (ABNORMAL) POCT glucose (11/24/2021 2:20 PM CDT) Glucose, POC 154(H) 70 - 140 mg/dL [facility] Comment: For Glucose values <35 mg/dl when Hematocrit is >60 mg/dl,the test may not accurately detect significant hypoglycemia,and testing in the Laboratory should be considered if clinically indicated. Blood 11/24/2021 2:20 PM CDT 11/24/2021 2:20 PM CDT Dequan Nunez MD LAB POCT ORDERABLES - DEVICE Final Result Performing Organization Address [facility] Co de Phone Number [facility] [address] [facility] [place] [address] * (ABNORMAL) POCT glucose (11/24/2021 1:18 PM CDT) Glucose, POC 142(H) 70 - 140 mg/dL [facility] Comment: For Glucose values <35 mg/dl when Hematocrit is >60 mg/dl,the test may not accurately detect significant hypoglycemia,and testing in the Laboratory should be considered if clinically indicated. Blood 11/24/2021 1:18 PM CDT 11/24/2021 1:18 PM CDT Dequan Nunez MD LAB POCT ORDERABLES - DEVICE Final Result Performing Organization Address [facility] Co de Phone Number [facility] [address] [facility] [place] [address] * (ABNORMAL) POCT glucose (11/24/2021 12:14 PM CDT) Glucose, POC 186(H) 70 - 140 mg/dL [facility] Comment: For Glucose values <35 mg/dl when Hematocrit is >60 mg/dl,the test may not accurately detect significant hypoglycemia,and testing in the Laboratory should be considered if clinically indicated. Blood 11/24/2021 12:1 4 PM CDT 11/24/2021 12:14 PM CDT Dequan Nunez MD LAB POCT ORDERABLES - DEVICE Final Result Performing Organization Address [facility] Co de Phone Number [facility] [address] [facility] [place] [address] * (ABNORMAL) POCT glucose (11/24/2021 11:19 AM CDT) Glucose, POC 202(H) 70 - 140 mg/dL [facility] Comment: For Glucose values <35 mg/dl when Hematocrit is >60 mg/dl,the test may not accurately detect significant hypoglycemia,and testing in the Laboratory should be considered if clinically indicated. Blood 11/24/2021 11:1 9 AM CDT 11/24/2021 11:19 AM CDT Dequan Nunez MD LAB POCT ORDERABLES - DEVICE Final Result Performing Organization Address [facility] de Phone Number [facility] [address] [facility] [place] [address] * (ABNORMAL) POCT glucose (11/24/2021 10:04 AM CDT) Glucose, POC 190(H) 70 - 140 mg/dL [facility] Comment: For Glucose values <35 mg/dl when Hematocrit is >60 mg/dl,the test may not accurately detect significant hypoglycemia,and testing in the Laboratory should be considered if clinically indicated. Blood 11/24/2021 10:0 4 AM CDT 11/24/2021 10:04 AM CDT Dequan Nunez MD LAB POCT ORDERABLES - DEVICE Final Result Performing Organization Address [facility] Co de Phone Number [facility] [address] [place] [address] * (ABNORMAL) POCT glucose (11/24/2021 8:54 AM CDT) Pathologist [facility] Glucose, POC 201(H) 70 - 140 mg/dL [facility] Comment: For Glucose values <35 mg/dl when Hematocrit is >60 mg/dl,the test may not accurately detect significant hypoglycemia,and testing in the Laboratory should be considered if clinically indicated. Blood 11/24/2021 8:54 AM CDT 11/24/2021 8:54 AM CDT Dequan Nunez MD LAB POCT ORDERABLES - DEVICE Final Result Performing Organization Address [facility] Co de Phone Number [facility] [address] [employer] [place], [place] [id number] * Lipase - Add on lab test (11/24/2021 8:03 AM CDT) [facility] Acceptable Yes [facility] Blood 11/24/2021 8:03 AM CDT 11/24/2021 8:03 AM CDT Narrative [facility] - 11/24/2021 8:03 AM CDT Name of Test->Lipase Kenroy Horan MD LAB BLOOD ORDERABLES Final R esult Performing Organization Address [facility] Co de Phone Number [facility] [address] [employer] [place], [place] [id number] * Amylase - Add on lab test (11/24/2021 8:03 AM CDT) [facility] Acceptable Yes [facility] Blood 11/24/2021 8:03 AM CDT 11/24/2021 8:03 AM CDT Narrative [facility] - 11/24/2021 8:04 AM CDT Name of Test->Amylase Kenroy Horan MD LAB BLOOD ORDERABLES Final R esult Performing Organization Address [facility] Co de Phone Number [facility] [address] Department [employer] [place], [place] [phone] * (ABNORMAL) POCT glucose (11/24/2021 7:48 AM CDT) Glucose, POC 223(H) 70 - 140 mg/dL [facility] Comment: For Glucose values <35 mg/dl when Hematocrit is >60 mg/dl,the test may not accurately detect significant hypoglycemia,and testing in the Laboratory should be considered if clinically indicated. Blood 11/24/2021 7:48 AM CDT 11/24/2021 7:48 AM CDT Dequan Nunez MD LAB POCT ORDERABLES - DEVICE Final Result Performing Organization Address [facility] Co de Phone Number [facility] [address] [facility] [place] [place] [address] * BMP - Add on lab test (11/24/2021 7:15 AM CDT) [facility] Acceptable Yes [facility] Blood 11/24/2021 7:15 AM CDT 11/24/2021 7:15 AM CDT Narrative [facility] - 11/24/2021 7:15 AM CDT Name of Test->BMP Kenroy Horan MD LAB BLOOD ORDERABLES Final R esult Performing Organization Address [facility] Co de Phone Number [facility] [address] [place] [address] * Lipase (11/24/2021 6:49 AM CDT) [facility] Lipase 27 10 - 99 Units/L [facility] Blood 11/24/2021 6:49 AM CDT 11/24/2021 6:52 AM CDT Dequan Nunez MD LAB BLOOD ORDERABLES Final R esult Performing Organization Address City/[facility] Co de Phone Number [facility] [address] [place] [address] * (ABNORMAL) Amylase (11/24/2021 6:49 AM CDT) Amylase 22(L) 30 - 99 Units/L [facility] Blood 11/24/2021 6:49 AM CDT 11/24/2021 6:52 AM CDT us Dequan Nunez MD LAB BLOOD ORDERABLES Final R esult [facility] [address] Department [place] [address] * eGFR (11/24/2021 6:49 AM CDT) eGFR 148 mL/min/1. 73 m2 [facility] Comment: Interpretive Data Reference Interval Normal [...] interpretive data was last reviewed 2021. Blood 11/24/2021 6:49 AM CDT 11/24/2021 6:52 AM CDT Dequan Nunez MD LAB BLOOD ORDERABLES Final R esult Performing Organization Address City/[facility]/ZIP Co de Phone Number [facility] [address] Department [place] [address] * (ABNORMAL) Basic metabolic panel (11/24/2021 6:49 AM CDT) Sodium 132(L) 135 - 145 mmol/L [facility] Potassium, pl 3.6 3.3 - 4.9 mmol/L [facility] Comment:Hemolyzed; potassium value may be falsely elevated by as much as 0.6 - 1.0 mmol/L. Suggest redraw and reanalysis Chloride 100 97 - 110 mmol/L [facility] CO2 18(L) 22 - 32 mmol/L [facility] Anion gap 14 2 - 15 mmol/L [facility] BUN 9 8 - 25 mg/dL [facility] Creatinine 0.49(L) 0.80 - 1.30 mg/dL [facility] Glucose 229(H) 70 - 199 mg/dL [facility] Comment: Interpretive Data Fasting glucose >/= 126 [...] interpretive data was last revised 2017. Calcium 8.2(L) 8.5 - 10.3 mg/dL [facility] Blood 11/24/2021 6:49 AM CDT 11/24/2021 6:52 AM CDT Dequan Nunez MD LAB BLOOD ORDERABLES Final R vuult Performing Organization Address City/[facility]/ZIP Co de Phone Number [facility] [address] Department [place] [address] * (ABNORMAL) Triglycerides (11/24/2021 6:49 AM CDT) Pathologist [facility] Triglycerides 2,291(H) <=149 mg/dL [facility] Comment: Interpretive Data Ages < or [...] Data was last revised on 2017. Blood 11/24/2021 6:49 AM CDT 11/24/2021 6:52 AM CDT us Isidro Leyva MD LAB BLOOD ORDERABLES Final R esult [facility] [address] Department [place] [address] * (ABNORMAL) POCT glucose (11/24/2021 6:06 AM CDT) Glucose, POC 256(H) 70 - 140 mg/dL [facility] Comment: For Glucose values <35 mg/dl when Hematocrit is >60 mg/dl,the test may not accurately detect significant hypoglycemia,and testing in the Laboratory should be considered if clinically indicated. Blood 11/24/2021 6:06 AM CDT 11/24/2021 6:06 AM CDT Dequan Nunez MD LAB POCT ORDERABLES - DEVICE Final Result Performing Organization Address [facility] Co de Phone Number [facility] [address] [facility] [employer] [place], [place] [id number] * (ABNORMAL) POCT glucose (11/24/2021 5:12 AM CDT) Glucose, POC 265(H) 70 - 140 mg/dL [facility] Comment: For Glucose values <35 mg/dl when Hematocrit is >60 mg/dl,the test may not accurately detect significant hypoglycemia,and testing in the Laboratory should be considered if clinically indicated. Blood 11/24/2021 5:12 AM CDT 11/24/2021 5:12 AM CDT Dequan Nunez MD LAB POCT ORDERABLES - DEVICE Final Result Performing Organization Address [facility] Co de Phone Number [facility] [address] [facility] [employer] [place], [place] [id number] * Phosphorus (11/24/2021 4:36 AM CDT) Phosphorus, pl 3.4 2.3 - 4.5 mg/dL [facility] Blood 11/24/2021 4:36 AM CDT 11/24/2021 4:36 AM CDT Dequan Nunez MD LAB BLOOD ORDERABLES Final R esult Performing Organization Address [facility] Co de Phone Number [facility] [address] [facility] [place] [address] * Magnesium (11/24/2021 4:36 AM CDT) Magnesium 1.5 1.4 - 2.5 mg/dL [facility] Blood 11/24/2021 4:36 AM CDT 11/24/2021 4:36 AM CDT us Isidro Leyva MD LAB BLOOD ORDERABLES Final R esult Performing Organization Address [facility] Co de Phone Number [facility] [address] [employer] [place], [place] [phone] * (ABNORMAL) POCT glucose (11/24/2021 4:07 AM CDT) Glucose, POC 266(H) 70 - 140 mg/dL [facility] Comment: For Glucose values <35 mg/dl when Hematocrit is >60 mg/dl,the test may not accurately detect significant hypoglycemia,and testing in the Laboratory should be considered if clinically indicated. Blood 11/24/2021 4:07 AM CDT 11/24/2021 4:07 AM CDT Dequan Nunez MD LAB POCT ORDERABLES - DEVICE Final Result Performing Organization Address [facility] de Phone Number [facility] [address] [employer] [place] [address] * eGFR (11/24/2021 3:58 AM CDT) eGFR 140 mL/min/1. 73 m2 [facility] Comment: Interpretive Data Reference Interval Normal [...] interpretive data was last reviewed 2021. Blood 11/24/2021 3:58 AM CDT 11/24/2021 4:36 AM CDT Isidro Leyva MD LAB BLOOD ORDERABLES Final R esult Performing Organization Address [facility] Co de Phone Number [facility] [address] [place] [address] * Phosphorus (11/24/2021 3:58 AM CDT) Phosphorus, pl See Comment 2.3 - 4.5 [facility] Comment:Test results inaccur ately filed to this patient's record. Test will be credited. Blood 11/24/2021 3:58 AM CDT 11/24/2021 4:36 AM CDT Isidro Leyva MD LAB BLOOD ORDERABLES Final R esult Performing Organization Address [facility] Co de Phone Number [facility] [address] [place] [address] * (ABNORMAL) Basic metabolic panel (11/24/2021 3:58 AM CDT) Sodium 130(L) 135 - 145 mmol/L [facility] Potassium, pl See Comment 3.3 - 4.9 [facility] Comment:Specimen hemolyzed. See whole blood potassium result. Chloride 98 97 - 110 mmol/L [facility] CO2 19(L) 22 - 32 mmol/L [facility] Anion gap 13 2 - 15 mmol/L [facility] BUN 11 8 - 25 mg/dL [facility] Creatinine 0.59(L) 0.80 - 1.30 mg/dL [facility] Glucose 252(H) 70 - 199 mg/dL [facility] Comment: Interpretive Data Fasting glucose >/= 126 [...] interpretive data was last revised 2017. Calcium 8.1(L) 8.5 - 10.3 mg/dL [facility] Blood 11/24/2021 3:58 AM CDT 11/24/2021 4:36 AM CDT us Isidro Leyva MD LAB BLOOD ORDERABLES Final R esult Performing Organization Address City/[facility] Co de Phone Number [facility] [address] Department [place] [address] * Magnesium (11/24/2021 3:58 AM CDT) Magnesium 1.6 1.4 - 2.5 mg/dL [facility] Blood 11/24/2021 3:58 AM CDT 11/24/2021 4:36 AM CDT Isidro Leyva MD LAB BLOOD ORDERABLES Final R esult Performing Organization Address City/[facility]/ZIP Co de Phone Number [facility] [address] Department [place] [address] * (ABNORMAL) CBC without differential (11/24/2021 3:58 AM CDT) WBC 4.2 3.8 - 9.9 K/cumm [facility] Hgb 14.8 13.0 - 17.5 g/dL [facility] Hct 38.1(L) 38.9 - 50.3 % [facility] Plt 216 150 - 400 K/cumm [facility] MPV 9.6 9.1 - 12.3 fL [facility] RBC 4.74 4.30 - 5.80 M/cumm [facility] MCV 80.4(L) 81.3 - 96.4 fL [facility] MCH 31.2 27.1 - 33.3 pg [facility] MCHC 38.8(H) 32.3 - 35.7 g/dL [facility] RDW CV 13.2 11.1 - 14.9 % [facility] RDW SD 37.6 35.7 - 48.1 fL [facility] NRBC abs 0.00 0.00 - 0.01 K/cumm [facility] Blood 11/24/2021 3:58 AM CDT 11/24/2021 4:35 AM CDT us Isidro Leyva MD LAB BLOOD ORDERABLES Edited Result - Final [facility] [address] Department [place] [address] * (ABNORMAL) Urinalysis, microscopic only (11/24/2021 3:10 AM CDT) Pathologist [facility] WBC, ur 0-5 0 - 5 /HPF [facility] RBC, ur 0-2 0 - 2 /HPF [facility] Epithelial cells, squamous, ur 1-5 0 - 5 /HPF [facility] Bacteria, ur Trace(A) [facility] Mucous, ur Present(A) [facility] Culture Reflex Comment Reflex conditions for urine culture (WBC >10) not met. [facility] Urine 11/24/2021 3:10 AM CDT 11/24/2021 3:29 AM CDT us Isidro Leyva MD LAB URINE ORDERABLES Final R esult Performing Organization Address [facility]/ZIP Co de Phone Number [facility] [address] Department [place] [address] * (ABNORMAL) Urinalysis reflex to microscopic and culture Urine (11/24/2021 3:10 AM CDT) Color, ur Yellow Yellow [facility] Clarity, ur Clear Clear [facility] Specific gravity, ur 1.026 1.003 - 1.030 [facility] pH, urine 5.5 [facility] Protein, ur ql 1+(A) Negative [facility] Glucose, ur ql 4+(A) Negative [facility] [facility] Ketones, ur 4+(A) Negative [facility] Bilirubin, ur Negative Negative [facility] Blood, ur Negative Negative [facility] Urobilinogen, ur <2.0 <2.0 mg/dL [facility] Nitrite, ur Negative Negative [facility] Leukocyte esterase, ur Negative Negative [facility] UA reflex comment Reflex to microscopic UA will be performed. [facility] Urine 11/24/2021 3:10 AM CDT 11/24/2021 3:29 AM CDT Narrative [facility] - 11/24/2021 3:32 AM CDT ?? Urine pH is affected by diet, medications, systemic acid-base disturbances, and renal tubular function. ??pH may affect urinary stone formation. ??For example, urine pH below 6.0 may help reduce the tendency for calcium phosphate stones and pH greater than 6.0 may reduce the tendency for uric acid stone formation. Source: [employer]. Last revised 05-16-2017 us Isidro Leyva MD LAB MICROBIOLOGY - GENERAL O RDERABLES Final Result Performing Organization Address [facility]/ZIP Co de Phone Number [facility] [address] Department [place] [address] * (ABNORMAL) POCT glucose (11/24/2021 3:05 AM CDT) Glucose, POC 273(H) 70 - 140 mg/dL [facility] Comment: For Glucose values <35 mg/dl when Hematocrit is >60 mg/dl,the test may not accurately detect significant hypoglycemia,and testing in the Laboratory should be considered if clinically indicated. Blood 11/24/2021 3:05 AM CDT 11/24/2021 3:05 AM CDT Dequan Nunez MD LAB POCT ORDERABLES - DEVICE Final Result Performing Organization Address [facility] de Phone Number [facility] [address] [place] [address] * (ABNORMAL) POCT glucose (11/24/2021 2:01 AM CDT) [facility] Signature Glucose, POC 256(H) 70 - 140 mg/dL [facility] Comment: For Glucose values <35 mg/dl when Hematocrit is >60 mg/dl,the test may not accurately detect significant hypoglycemia,and testing in the Laboratory should be considered if clinically indicated. Blood 11/24/2021 2:01 AM CDT 11/24/2021 2:01 AM CDT Dequan Nunez MD LAB POCT ORDERABLES - DEVICE Final Result Performing Organization Address [facility] de Phone Number [facility] [address] Department [place] [place] [address] documented in this encounter Visit Diagnoses Diagnosis DKA, type 1, not at goal (HCC)- Primary documented in this encounter Admitting Diagnoses Diagnosis DKA, type 1, not at goal (HCC) documented in this encounter Administered Medications Inactive Administered Medications - up to 3 most recent administrations Medication Order MAR Action Action Date Dose Rate Site acetaminophen (TYLENOL) 32 mg/mL oral solution 650 mg 650 mg, feeding tube, Every 4 hours PRN, 1st line for pain, fever, Starting on Sat11/24/21 at 0144, Administer if patient receiving meds per tube., Indications: Fever, PainIndications:Fever,Pain Given 11/24/2021 8:03 AM CDT 650 mg acetaminophen (TYLENOL) suppository 650 mg 650 mg, rectal, Every 4 hours PRN, 1st line for pain, fever, Starting on Sat11/24/21 at 0144, Administer if patient cannot tolerate enteral route., Indications: Fever, PainIndications:Fever,Pain acetaminophen (TYLENOL) tablet 650 mg 650 mg, oral, Every 4 hours PRN, 1st line for pain, fever, Starting on Sat11/24/21 at 0144, Administer if patient can swallow tablets., Indications: Fever, PainIndications:Fever,Pain carvediloL (COREG) tablet 25 mg 25 mg, oral, 2 times daily with meals (bkfst, dinner), First dose on Sat11/24/21 at 0200 Given 11/27/2021 8:52 AM CDT 25 mg Given 11/26/2021 5:25 PM CDT 25 mg Given 11/26/2021 8:19 AM CDT 25 mg ceFAZolin (ANCEF) 2,000 mg/20 mL in sterile water (premix) 2,000 mg 2,000 mg, intravenous, at 400 mL/hr, Administer over 3 Minutes, Every 8 hours, First dose (after last modification) on Sat11/24/21 at 0400, Indications: Skin/Soft Tissue InfectionIndications:Skin/Soft Tissue Infection Given 11/27/2021 12:56 PM CDT 2,000 mg 400 mL/hr Given 11/27/2021 4:37 AM CDT 2,000 mg 400 mL/hr Given 11/26/2021 9:03 PM CDT 2,000 mg 400 mL/hr dextrose (D10W) 10% bolus 250 mL 250 mL, intravenous, at 1,000 mL/hr, Administer over 15 Minutes, Every 15 min PRN, blood glucose less than 100 mg/dL while on insulin infusion and patient does not have an altered level of consciousness, Starting on Sat11/24/21 at 0146, After treatment for hypoglycemia, recheck BG followed by treatment every 15 minutes until the BG is greater than 100 mg/dL. Restart Insulin Drip at 50% of the prior IV rate when BG is >100mg/dL. Minimum infusion rate of 1 unit/hour. Contact MD to determine if the D5W rate should be increased above the 100mL/hour rate., Indications: hypoglycemic disorderIndications:hypoglycemic disorder dextrose (D10W) 10% bolus 250 mL 250 mL, intravenous, at 1,000 mL/hr, Administer over 15 Minutes, Every 15 min PRN, blood glucose less than 70 mg/dL and UNABLE to swallow/take PO glucose/juice., Starting on Sat11/24/21 at 2054, After treatment for hypoglycemia, recheck BG followed by treatment every 15 minutes until the BG is greater than 100 mg/dL. Then check BG 1 hour post treatment. If BG is less than 100 mg/dL, repeat Q15 minute BG checks and treatment. Call MD for each episode of hypoglycemia., Indications: hypoglycemic disorderIndications:hypoglycemic disorder dextrose 5% infusion 100 mL/hr, intravenous, Continuous, Starting on Sat11/24/21 at 0230, Start when blood glucose less than 250 mg/dL and decrease rate of previous IV fluid infusion order. Notify MD when blood glucose less than 250 mg/dL and adjusting IV fluids. New Bag 11/24/2021 8:26 PM CDT 100 mL/hr 100 mL/hr New Bag 11/24/2021 2:25 PM CDT 100 mL/hr 100 mL/hr Rate/Dose Verify 11/24/2021 7:51 AM CDT 100 mL/hr 100 mL/ hr dextrose gel in packet 15 g 15 g, oral, Every 15 min PRN, low blood sugar, blood glucose less than 70 mg/dL, Starting on Sat11/24/21 at 2054, If patient is alert and able to eat/drink, give 15 gm glucose or one juice (4 fluid ounces) NOT ORANGE JUICE. After treatment for hypoglycemia, recheck BG followed by treatment every 15 minutes until the BG is greater than 100 mg/dL. Then check BG 1 hour post-treatment. If BG is less than 100 mg/dL, repeat Q15 minute BG checks and treatment. Call MD for each episode of hypoglycemia., Indications: hypoglycemic disorderIndications:hypoglycemic disorder DULoxetine DR (CYMBALTA) extended release capsule 60 mg 60 mg, oral, Daily, First dose on Sat11/24/21 at 0900, Capsule may be opened and contents mixed with applesauce or apple juice ONLY. Do not crush, chew, cut, dissolve, open or otherwise manipulate tablet/capsule., Indications: Anxiety with DepressionIndications:Anxiety with Depression Given 11/27/2021 8:5 2 AM CDT 60 mg Given 11/26/2021 8:19 AM CDT 60 mg Given 11/25/2021 8:01 AM CDT 60 mg enoxaparin (LOVENOX) syringe 40 mg 40 mg, subcutaneous, Every 12 hours scheduled, First dose on Sat11/24/21 at 0900, Indications: Deep Vein Thrombosis PreventionIndications:Deep Vein Thrombosis Prevention Given 11/27/2021 8:52 AM CDT 40 mg Left Lower Abdomen Given 11/26/2021 9:01 PM CDT 40 mg Le ft Upper Abdomen Given 11/26/2021 8:18 AM CDT 40 mg Le ft Lower Abdomen fenofibrate nanocrystallized (TRICOR) tablet 145 mg 145 mg, oral, Daily, First dose on Sat11/24/21 at 0900 Given 11/27/2021 10:03 AM CDT 145 mg Given 11/26/2021 9:54 AM CDT 145 mg Given 11/25/2021 8:47 AM CDT 145 mg glucagon injection 1 mg 1 mg, intramuscular, Every 30 min PRN, low blood sugar, blood glucose less than 70 mg/dL AND no IV access AND unable to take PO glucose/juice., Starting on Sat11/24/21 at 2054, After Glucagon is administered, position patient on side if possible to avoid aspiration. Obtain IV access. Follow glucagon treatment with glucose treatment or IV dextrose. After treatment for hypoglycemia, recheck BG followed by treatment every 15 minutes until the BG is greater than 100 mg/dL. Then check BG 1 hour post treatment. If BG is less than 100 mg/dL, repeat Q15 minute BG checks and treatment. Call MD for each episode of hypoglycemia. Reconstitute 1 mg vial with 1 mL SWFI. Use immediately following reconstitution. insulin glargine (LANTUS, SEMGLEE) 100 unit/mL injection 100 Units 100 Units, subcutaneous, Nightly, First dose on Sat11/24/21 at 2130, Do not hold if NPO. Do not mix with other insulins, Indications: Diabetes MellitusIndications:Diabetes Mellitus Given 11/24/2021 9:53 PM CDT 100 Units Left Lower Abdomen insulin glargine (LANTUS, SEMGLEE) 100 unit/mL injection 150 Units 150 Units, subcutaneous, Nightly, First dose (after last modification) on Sat11/25/21 at 2130, Do not hold if NPO. Do not mix with other insulins, Indications: Diabetes MellitusIndications:Diabetes Mellitus Given 11/26/2021 9:01 PM CDT 150 Units Left Lower Abdomen Given 11/25/2021 9:38 PM CDT 150 Units Le ft Lower Abdomen insulin glargine (LANTUS, SEMGLEE) 100 unit/mL injection 40 Units 40 Units, subcutaneous, Every morning, First dose (after last modification) on 11/27/21 at 0915, Do not mix with other insulins Given 11/27/2021 8:51 AM CDT 40 Units Left Upper Arm insulin glargine (LANTUS, SEMGLEE) 100 unit/mL injection 50 Units 50 Units, subcutaneous, Every morning, First dose on 11/25/21 at 0915, Do not mix with other insulins Given 11/26/2021 8:18 AM CDT 50 Units Left Lower Abdomen Given 11/25/2021 9:43 AM CDT 50 Units Le ft Lower Abdomen insulin lispro (HumaLOG, ADMELOG) 100 unit/mL injection 0-25 Units 0-25 Units, subcutaneous, 5 times daily, First dose on 11/25/21 at 0700, Blood glucose mg/dL: 149 or less: No insulin 150-199: add 5 unit 200-249: add 10 units 250-299: add 15 units 300-349: add 20 units and notify physician for adjustment of insulin orders. 350-399: add 25 units and notify physician for adjustment of insulin orders. Over 400: Notify physician for adjustment of insulin orders. Do NOT hold for NPO Status, Indications: Diabetes MellitusIndications:Diabetes Mellitus Given 11/25/2021 7:42 AM CDT 5 Units Left Lower Abdomen insulin lispro (HumaLOG, ADMELOG) 100 unit/mL injection 0-25 Units 0-25 Units, subcutaneous, 5 times daily, First dose (after last modification) on 11/26/21 at 2200, Blood glucose mg/dL: 149 or less: No insulin 150-199: add 5 unit 200-249: add 10 units 250-299: add 15 units 300-349: add 20 units 350-399: add 25 units Over 400: Notify physician for adjustment of insulin orders. Do NOT hold for NPO Status, Indications: Diabetes MellitusIndications:Diabetes Mellitus insulin lispro (HumaLOG, ADMELOG) 100 unit/mL injection 0-50 Units 0-50 Units, subcutaneous, 5 times daily, First dose (after last modification) on 11/25/21 at 1230, Blood glucose mg/dL: 149 or less: No insulin 150-199: add 10 unit 200-249: add 20 units 250-299: add 30 units 300-349: add 40 units and notify physician for adjustment of insulin orders. 350-399: add 50 units and notify physician for adjustment of insulin orders. Over 400: Notify physician for adjustment of insulin orders. Do NOT hold for NPO Status, Indications: Diabetes MellitusIndications:Diabetes Mellitus Given 11/26/2021 2:31 PM CDT 10 Units Left Upper Arm Given 11/25/2021 11:57 AM CDT 10 Units L eft Upper Arm insulin lispro (HumaLOG, ADMELOG) 100 unit/mL injection 15 Units 15 Units (rounded from 14.9981 Units = 0.083 Units/kg ? 180.7 kg), subcutaneous, 3 times daily with meals, First dose on 11/25/21 at 0800, If BG greater than or equal to 100 mg/dL, give dose with meals when tray arrives in the room. If BG less than 100 mg/dL or history of poor intake, give after meals. If patient eating less than 50% of meal, call MD for holding or reducing meal insulin dose. Hold prandial insulin if NPO, unable to eat, or if BG less than 70 mg/dL., Indications: Diabetes MellitusIndications:Diabetes Mellitus Given 11/25/2021 7:42 AM CDT 15 Units Left Lower Abdomen insulin lispro (HumaLOG, ADMELOG) 100 unit/mL injection 40 Units 40 Units, subcutaneous, 3 times daily with meals, First dose (after last modification) on 11/25/21 at 1230, If BG greater than or equal to 100 mg/dL, give dose with meals when tray arrives in the room. If BG less than 100 mg/dL or history of poor intake, give after meals. If patient eating less than 50% of meal, call MD for holding or reducing meal insulin dose. Hold prandial insulin if NPO, unable to eat, or if BG less than 70 mg/dL., Indications: Diabetes MellitusIndications:Diabetes Mellitus Given 11/25/2021 5:47 PM CDT 40 Units Right Upper Arm Given 11/25/2021 11:58 AM CDT 40 Units L eft Upper Arm insulin lispro (HumaLOG, ADMELOG) 100 unit/mL injection 40 Units 40 Units, subcutaneous, 3 times daily with meals, First dose on 11/27/21 at 0930 Given 11/27/2021 12:50 PM CDT 40 Units Left Upper Arm Given 11/27/2021 8:51 AM CDT 40 Units Le ft Upper Arm insulin lispro (HumaLOG, ADMELOG) 100 unit/mL injection 50 Units 50 Units, subcutaneous, 3 times daily with meals, First dose (after last modification) on 11/26/21 at 1815, If BG greater than or equal to 100 mg/dL, give dose with meals when tray arrives in the room. If BG less than 100 mg/dL or history of poor intake, give after meals. If patient eating less than 50% of meal, call MD for holding or reducing meal insulin dose. Hold prandial insulin if NPO, unable to eat, or if BG less than 70 mg/dL., Indications: Diabetes MellitusIndications:Diabetes Mellitus Given 11/26/2021 5:25 PM CDT 50 Units Left Upper Arm insulin lispro (HumaLOG, ADMELOG) 100 unit/mL injection 60 Units 60 Units, subcutaneous, 3 times daily with meals, First dose (after last modification) on 11/26/21 at 0800, If BG greater than or equal to 100 mg/dL, give dose with meals when tray arrives in the room. If BG less than 100 mg/dL or history of poor intake, give after meals. If patient eating less than 50% of meal, call MD for holding or reducing meal insulin dose. Hold prandial insulin if NPO, unable to eat, or if BG less than 70 mg/dL., Indications: Diabetes MellitusIndications:Diabetes Mellitus Given 11/26/2021 12:41 PM CDT 60 Units Left Upper Arm Given 11/26/2021 8:26 AM CDT 60 Units Le ft Upper Arm insulin regular in 0.9% sodium chloride (MYXREDLIN) 100 unit/100 mL (1 unit/mL) infusion (premix) 0-30 Units/hr (0-30 mL/hr), 1 units/mL, intravenous, Titrated, Starting on Sat11/24/21 at 0230, Until Sat11/26/21 at 1738, Indications: diabetic ketoacidosis, NON-WEIGHT BASED DOSING Initial rate from OSH (If patient currently receiving insulin infusion, enter current infusion rate.) Blood Glucose (BG) Decreasing OR Same as Last Value BG less than 100 mg/dL: - Hold insulin infusion and notify MD. Do NOT hold infusion for more than 1 hour. Give D10 250mL IVPB over 15minutes (if BG <50mg/dL and patient has an altered level of consciousness give D50 (25gm) IV Push over 2 minutes instead of D10). - Check BG Q15 minutes and continue treatment until BG >100mg/dL. - Restart Insulin Drip at 50% of the prior IV rate when BG is >100mg/dL. Minimum infusion rate of 1 unit/hour. - Contact MD to determine if the D5W rate should be increased above the 100mL/hour rate. BG 100 - 150 mg/dL: - If BG decreasing by 30mg/dL/hour or more - decrease insulin drip by 50% and call MD. - If BG decreasing by less than 30mg/dL/hour - maintain current drip rate BG 151 - 200 mg/dL: - Add D5W IVPB to current fluid orders at 100mL/hour (if not already done), call MD - If BG decreasing by 76 mg/dL/hour or more - decrease insulin drip by 50% - If BG decreasing by 50-75 mg/dL/hour - decrease insulin drip by 25% - If BG decreasing by less than 50 mg/dL/hour - maintain current drip rate BG 201-250 mg/dL: - Add D5W IVF to current fluid orders at 100mL/hour (if not already done), call MD. - If BG decreasing by 76 mg/dL/hour or more - decrease insulin drip by 50% - If BG decreasing by 30-75 mg/dL/hour - maintain current drip rate - IF BG decreasing less than 30 mg/dL/hour - increase insulin drip by 25% BG greater than 250 mg/dL: - If BG decreasing by greater than 200 mg/dL/hour - decrease drip by 50% - If BG decreasing by 76-199 mg/dL/hour - decrease drip by 25% - If BG decreasing by 51-75 mg/dL/hour - maintain current drip rate. - If BG decreasing by less than 50 mg/dL/hour - increase insulin drip by 25% Blood Glucose (BG) Increasing , BG less than 100 mg/dL: - Hold insulin infusion and notify MD. Do NOT hold infusion for more than 1 hour. Give D10 250mL IVPB over 15minutes (if BG <50mg/dL and patient has an altered level of consciousness give D50 (25gm) IV Push over 2 minutes instead of D10). - Check BG Q15 minutes and continue treatment until BG >100mg/dL. - Restart Insulin Drip at 50% of the prior IV rate when BG is >100mg/dL. Minimum infusion rate of 1unit/hour. - Contact MD to determine if the D5W rate should be increased above the 100mL/hour rate. BG 100 - 150 mg/dL: - If patient currently on insulin drip, maintain current rate. - If insulin drip currently held, restart at 50% of the last drip rate. Minimum infusion rate of 1 unit/hr. BG 151 - 200 mg/dL: - Maintain current drip rate BG 201 - 250 mg/dL: - Increase insulin drip by 25% BG greater than 250 mg/dL: - Increase insulin drip by 50% When adjusting drip rate, round changes to the nearest 0.5 units/hour increment For Type I Diabetics or equivalent, Do NOT discontinue drip until insulin maintenance regimen is implemented When new IV tubing is used, completely prime the tubing. Once primed, waste an additional 20 ml of insulin infusion using the IV pump prior to connecting to patient., RoutineIndications:diabetic ketoacidosis Rate/Dose Change 11/26/2021 11:17 AM CDT 1 Units/hr 1 mL/hr Rate/Dose Change 11/25/2021 9:38 PM CDT 2 Units/hr 2 mL/hr Rate/Dose Change 11/25/2021 6:33 PM CDT 4.1 Units/hr 4.1 m L/hr lisinopriL (PRINIVIL,ZESTRIL) tablet 20 mg 20 mg, oral, Daily, First dose on Sat11/24/21 at 0900 Given 11/27/2021 8:52 AM CDT 20 mg Given 11/26/2021 8:18 AM CDT 20 mg Given 11/25/2021 8:00 AM CDT 20 mg loperamide (IMODIUM) capsule 2 mg 2 mg, oral, 4 times daily PRN, diarrhea, Starting on Sat11/25/21 at 1816, Maximum recommended dose 16 mg/day magnesium sulfate 2 g/50 mL in water (premix) 2 g 2 g, intravenous, Administer over 60 Minutes, Once, On Sat11/25/21 at 0445, For 1 dose, Indications: hypomagnesemiaIndications:hypomagnesemia New 11/25/2021 5:05 AM CDT 2 g magnesium sulfate 2 g/50 mL in water (premix) 2 g 2 g, intravenous, Administer over 60 Minutes, Once, On Sat11/26/21 at 0400, For 1 dose, Indications: hypomagnesemiaIndications:hypomagnesemia New 11/26/2021 6:31 AM CDT 2 g magnesium sulfate 4 g/100 mL in water (premix) 4 g 4 g, intravenous, Administer over 90 Minutes, Once, On Sat11/24/21 at 0630, For 1 dose, Indications: hypomagnesemiaIndications:hypomagnesemia New 11/24/2021 6:00 AM CDT 4 g omega-3 fatty acids (LOVAZA) capsule 2 g 2 g, oral, 2 times daily, First dose on Sat11/26/21 at 2100, Do not crush, break, or open. Given 11/27/2021 8:52 A M CDT 2 g Given 11/26/2021 9:01 PM CDT 2 g ondansetron (ZOFRAN) injection 4 mg 4 mg, intravenous, Administer over 2 Minutes, Every 6 hours PRN, nausea, vomiting, Starting on Sat11/24/21 at 0144, Indications: nausea and vomitingIndications:nausea and vomiting Given 11/25/2021 3:10 AM CDT 4 mg Given 11/24/2021 3:48 PM CDT 4 mg potassium chloride ER (KLOR-CON) extended release tablet 40 mEq 40 mEq, oral, Once, On Sat11/26/21 at 0900, For 1 dose, Do not crush, chew, cut, dissolve, open or otherwise manipulate tablet/capsule., Indications: hypokalemiaIndications:hypokalemia Given 11/26/2021 8:19 AM CDT 40 mEq rosuvastatin (CRESTOR) tablet 20 mg 20 mg, oral, Nightly, First dose on Sat11/24/21 at 2100 Given 11/26/2021 9:02 PM CDT 20 mg Given 11/25/2021 8:13 PM CDT 20 mg Given 11/24/2021 8:25 PM CDT 20 mg sodium chloride 0.45% infusion 150 mL/hr, intravenous, Continuous, Starting on Sat11/24/21 at 0230, Decrease rate to 100 mL/hr when blood glucose less than 250 mg/dL. New Bag 11/26/2021 11:22 AM CDT 150 mL/hr 150 mL/hr New Bag 11/26/2021 3:05 AM CDT 150 mL/hr 150 mL/hr New Bag 11/25/2021 8:13 PM CDT 150 mL/hr 150 mL/hr documented in this encounter Discontinued Medications Medication Sig Discontinue Reason Start Date End Da te blood glucose diagnostic (glucose blood) stripIndications:Diabe tic ketoacidosis without coma associated with other specified diabetes mellitus (HCC) Check blood sugar 4-5 times a day or as directed using one touch verio 01/16/2021 11/24/2021 blood-glucose meter kit 1 kit once for 1 dose Patient needs in room for diabetes education 03/05/2019 11/24/2021 Dexcom G6 Sensor deviceIndications:Type 2 diabetes mellitus without complication, with long-term current use of insulin ([facility]) ([facility]),Diabetic ketoacidosis without coma associated with type 2 diabetes mellitus (CMS/HCC) ([facility]) Use to continually monitor glucose, change every 10 days 07/07/2021 11/24/2021 Dexcom G6 Transmitter deviceIndications:Type 2 diabetes mellitus without complication, with long-term current use of insulin (CMS/HCC) (HCC),Diabetic ketoacidosis without coma associated with type 2 diabetes mellitus (CMS/HCC) (HCC) Use to continually monitor glucose, change every 90 days 07/07/2021 11/24/2021 pen needle, diabetic (BD Ultra-Fine Ibeth Pen Needle) 32 gauge x 5/32 needleIndications:[place] bolic syndrome Use to inject insulin BG three times a day as instructed 06/02/2020 11/24/2021 pen needle, diabetic (BD Ultra-Fine Ibeth Pen Needle) 32 gauge x 532 needle USE DIRECTED 3 TIMES A DAY 06/07/2020 11/24/2021 HumuLIN R U-500 500 unit/mL (3 mL) CONCENTRATED pen for injection Inject 0.3 mL (150 Units total) under the skin 3 (three) times a day Error 06/07/2021 11/24/2021 NovoLOG 100 unit/mL (3 mL) pen for injection Inject 24 Units under the skin 3 (three) times a day before meals Error 06/07/2021 11/24/2021 mupirocin (BACTROBAN) 2 % ointment Apply topically 3 (three) times a day Error 12/21/2019 11/24/2021 insulin lispro (HumaLOG, ADMELOG) 100 unit/mL pen for injection Inject 24 Units under the skin 3 (three) times a day with meals Error 06/07/2021 11/24/2021 metFORMIN (GLUCOPHAGE) 500 mg tabletIndications:Diab etic ketoacidosis without coma associated with other specified diabetes mellitus (HCC) Take 2 tablets (1,000 mg total) by mouth 2 (two) times a day with meals Error 05/26/2020 11/24/2021 insulin regular U-500 (HumuLIN R) 500 unit/mL CONCENTRATED vial for injectionIndications:D iabetes Mellitus with Severe Insulin Resistance Inject under the skin 3 (three) times a day with meals Reorder 11/27/2021 11/27/2021 insulin regular U-500 (HumuLIN R) 500 unit/mL CONCENTRATED vial for injectionIndications:D iabetes Mellitus with Severe Insulin Resistance Inject 120 Units under the skin 3 (three) times a day before meals Stop Taking at Discharge 11/27/2021 metFORMIN (GLUCOPHAGE) 500 mg tablet Take 1,000 mg by mouth 2 (two) times a day with meals Stop Taking at Discharge 11/27/2021 insulin lispro (HumaLOG, ADMELOG) 100 unit/mL vial for injection Inject 26 Units under the skin 3 (three) times a day before meals Stop Taking at Discharge 11/27/2021 documented as of this encounter Historical Medications * This list may reflect changes made after this encounter. insulin lispro (HumaLOG, ADMELOG) 100 unit/mL vial for injection Inject 26 Units under the skin 3 (three) times a day before meals 11/27/2021 metFORMIN (GLUCOPHAGE) 500 mg tablet Take 1,000 mg by mouth 2 (two) times a day with meals 11/27/2021 insulin regular U-500 (HumuLIN R) 500 unit/mL CONCENTRATED vial for injectionIndicatio ns:Diabetes Mellitus with Severe Insulin Resistance Inject 120 Units under the skin 3 (three) times a day before meals 11/27/2021 added in this encounter Active and Recently Administered Medications Times are shown in CDT. Scheduled Medication Order 11/25/2021 11/26/2021 11/27/2021 carvediloL (COREG) tablet 25 mg 25 mg, oral, 2 times daily with meals (bkfst, dinner), First dose on Sat11/24/21 at 0200 0801 (Given - Provider: Jane Zepeda RN)1746 (Given - Provider: Jane Zepeda RN) 0819 (Given - Provider: Annika Toledo RN)1725 (Given - Provider: Annika Toledo RN) 0852 (Given - Provider: Annika Toledo RN) ceFAZolin (ANCEF) 2,000 mg/20 mL in sterile water (premix) 2,000 mg 2,000 mg, intravenous, at 400 mL/hr, Administer over 3 Minutes, Every 8 hours, First dose (after last modification) on Sat11/24/21 at 0400, Indications: Skin/Soft Tissue Infection 0310 (Given - Provider: Zenaida Chua RN)1206 (Given - Provider: Jane Zepeda RN)2013 (Given - Provider: Zenaida Chua RN) 0303 (Given - Provider: Zenaida Chua RN)1241 (Given - Provider: Annika Toledo RN)2103 (Given - Provider: Zenaida Chua RN) 0437 (Given - Provider: Zenaida Chua RN)1256 (Given - Provider: Annika Toledo RN) DULoxetine DR (CYMBALTA) extended release capsule 60 mg 60 mg, oral, Daily, First dose on Sat11/24/21 at 0900, Capsule may be opened and contents mixed with applesauce or apple juice ONLY. Do not crush, chew, cut, dissolve, open or otherwise manipulate tablet/capsule., Indications: Anxiety with Depression 08 (Given - Provider: Jane Zepeda RN) 0819 (Given - Provider: Annika Toledo RN) 0852 (Given - Provider: Annika Toledo RN) enoxaparin (LOVENOX) syringe 40 mg 40 mg, subcutaneous, Every 12 hours scheduled, First dose on Sat11/24/21 at 0900, Indications: Deep Vein Thrombosis Prevention 08 (Given - Provider: Jane Zepeda, BRYANNA)2012 (Given - Provider: Zenaida Chua RN) 08 (Given - Provider: Annika Toledo RN)2100 (Given - Provider: Zenaida Chua RN) 0852 (Given - Provider: Annika Toledo RN) fenofibrate nanocrystallized (TRICOR) tablet 145 mg 145 mg, oral, Daily, First dose on Sat11/24/21 at 0900 0847 (Given - Provider: Jane Zepeda RN) 0954 (Given - Provider: Annika Toledo RN) 1003 (Given - Provider: Annika Toledo RN) insulin glargine (LANTUS, SEMGLEE) 100 unit/mL injection 150 Units 150 Units, subcutaneous, Nightly, First dose (after last modification) on Sat11/25/21 at 2130, Do not hold if NPO. Do not mix with other insulins, Indications: Diabetes Mellitus 2137 (Given - Provider: Zenaida Chua RN) 2100 (Given - Provider: Zenaida Chua RN) insulin glargine (LANTUS, SEMGLEE) 100 unit/mL injection 40 Units 40 Units, subcutaneous, Every morning, First dose (after last modification) on Sat11/27/21 at 0915, Do not mix with other insulins 0851 (Given - Provider: Annika Toledo RN) insulin glargine (LANTUS, SEMGLEE) 100 unit/mL injection 50 Units (CANCELED) 50 Units, subcutaneous, Every morning, First dose on 11/25/21 at 0915, Do not mix with other insulins 0943 (Given - Provider: Jane Zepeda RN - Comment: confirmed with physician, BG 211) 0818 (Given - Provider: Annika Toledo RN) 0849 (Not Given - Provider: Annika Toledo RN - Reason: Order Discontinued) insulin lispro (HumaLOG, ADMELOG) 100 unit/mL injection 0-25 Units (CANCELED) 0-25 Units, subcutaneous, 5 times daily, First dose on 11/25/21 at 0700, Blood glucose mg/dL: 149 or less: No insulin 150-199: add 5 unit 200-249: add 10 units 250-299: add 15 units 300-349: add 20 units and notify physician for adjustment of insulin orders. 350-399: add 25 units and notify physician for adjustment of insulin orders. Over 400: Notify physician for adjustment of insulin orders. Do NOT hold for NPO Status, Indications: Diabetes Mellitus 0742 (Given - Provider: Jane Zepeda RN - Comment: bg 167)1201 (Not Given - Provider: Jane Zepeda RN - Reason: Contraindicated - Comment: see new orders, per provider) insulin lispro (HumaLOG, ADMELOG) 100 unit/mL injection 0-25 Units 0-25 Units, subcutaneous, 5 times daily, First dose (after last modification) on 11/26/21 at 2200, Blood glucose mg/dL: 149 or less: No insulin 150-199: add 5 unit 200-249: add 10 units 250-299: add 15 units 300-349: add 20 units 350-399: add 25 units Over 400: Notify physician for adjustment of insulin orders. Do NOT hold for NPO Status, Indications: Diabetes Mellitus 210 (Not Given - Provider: Zenaida Chua RN - Reason: Order parameters not met) 0853 (Not Given - Provider: Annika Toledo RN - Reason: Order parameters not met)1250 (Not Given - Provider: Annika Toledo RN - Reason: Order Discontinued)1400 (Due) insulin lispro (HumaLOG, ADMELOG) 100 unit/mL injection 0-50 Units (CANCELED) 0-50 Units, subcutaneous, 5 times daily, First dose (after last modification) on 11/25/21 at 1230, Blood glucose mg/dL: 149 or less: No insulin 150-199: add 10 unit 200-249: add 20 units 250-299: add 30 units 300-349: add 40 units and notify physician for adjustment of insulin orders. 350-399: add 50 units and notify physician for adjustment of insulin orders. Over 400: Notify physician for adjustment of insulin orders. Do NOT hold for NPO Status, Indications: Diabetes Mellitus 1157 (Given - Provider: Jane Zepeda RN - Comment: bg 167)1748 (Not Given - Provider: Jane Zepeda RN - Reason: Contraindicated - Comment: bg 111)2138 (Not Given - Provider: Zenaida Chua RN - Reason: Order parameters not met) 0826 (Not Given - Provider: Annika Toledo RN - Reason: Order parameters not met)1248 (Not Given - Provider: Annika Toledo RN - Reason: Order parameters not met)1431 (Given - Provider: Annika Toledo RN)1725 (Not Given - Provider: Annika Toledo RN - Reason: Order parameters not met) insulin lispro (HumaLOG, ADMELOG) 100 unit/mL injection 15 Units (CANCELED) 15 Units (rounded from 14.9981 Units = 0.083 Units/kg ? 180.7 kg), subcutaneous, 3 times daily with meals, First dose on 11/25/21 at 0800, If BG greater than or equal to 100 mg/dL, give dose with meals when tray arrives in the room. If BG less than 100 mg/dL or history of poor intake, give after meals. If patient eating less than 50% of meal, call MD for holding or reducing meal insulin dose. Hold prandial insulin if NPO, unable to eat, or if BG less than 70 mg/dL., Indications: Diabetes Mellitus 0742 (Given - Provider: Jane Zepeda RN - Comment: bg 167) insulin lispro (HumaLOG, ADMELOG) 100 unit/mL injection 40 Units (CANCELED) 40 Units, subcutaneous, 3 times daily with meals, First dose (after last modification) on Sat11/25/21 at 1230, If BG greater than or equal to 100 mg/dL, give dose with meals when tray arrives in the room. If BG less than 100 mg/dL or history of poor intake, give after meals. If patient eating less than 50% of meal, call MD for holding or reducing meal insulin dose. Hold prandial insulin if NPO, unable to eat, or if BG less than 70 mg/dL., Indications: Diabetes Mellitus 1158 (Given - Provider: Jane Zepeda RN - Comment: bg 167)1747 (Given - Provider: Jane Zepeda RN) insulin lispro (HumaLOG, ADMELOG) 100 unit/mL injection 40 Units 40 Units, subcutaneous, 3 times daily with meals, First dose on Sat11/27/21 at 0930 0851 (Given - Provider: Annika Toledo RN)1250 (Given - Provider: Annika Toledo RN) insulin lispro (HumaLOG, ADMELOG) 100 unit/mL injection 50 Units (CANCELED) 50 Units, subcutaneous, 3 times daily with meals, First dose (after last modification) on 11/26/21 at 1815, If BG greater than or equal to 100 mg/dL, give dose with meals when tray arrives in the room. If BG less than 100 mg/dL or history of poor intake, give after meals. If patient eating less than 50% of meal, call MD for holding or reducing meal insulin dose. Hold prandial insulin if NPO, unable to eat, or if BG less than 70 mg/dL., Indications: Diabetes Mellitus 1725 (Given - Provider: Annika Toledo RN) 0853 (Not Given - Provider: Annika Toledo RN - Reason: Order Discontinued) insulin lispro (HumaLOG, ADMELOG) 100 unit/mL injection 60 Units (CANCELED) 60 Units, subcutaneous, 3 times daily with meals, First dose (after last modification) on 11/26/21 at 0800, If BG greater than or equal to 100 mg/dL, give dose with meals when tray arrives in the room. If BG less than 100 mg/dL or history of poor intake, give after meals. If patient eating less than 50% of meal, call MD for holding or reducing meal insulin dose. Hold prandial insulin if NPO, unable to eat, or if BG less than 70 mg/dL., Indications: Diabetes Mellitus 0826 (Given - Provider: Annika Toledo RN)1241 (Given - Provider: Annika Toledo RN)1725 (Not Given - Provider: Annika Toledo RN - Reason: Order Discontinued)1807 (Not Given - Provider: Annika Toledo RN - Reason: Order Discontinued) lisinopriL (PRINIVIL,ZESTRIL) tablet 20 mg 20 mg, oral, Daily, First dose on Sat11/24/21 at 0900 0800 (Given - Provider: Jane Zepeda RN) 0818 (Given - Provider: Annika Toledo RN) 0852 (Given - Provider: Annika Toledo RN) magnesium sulfate 2 g/50 mL in water (premix) 2 g (COMPLETED) 2 g, intravenous, Administer over 60 Minutes, Once, On 11/25/21 at 0445, For 1 dose, Indications: hypomagnesemia 0505 (New Bag - Provider: Zenaida Chua RN) magnesium sulfate 2 g/50 mL in water (premix) 2 g (COMPLETED) 2 g, intravenous, Administer over 60 Minutes, Once, On 11/26/21 at 0400, For 1 dose, Indications: hypomagnesemia 0631 (New Bag - Provider: Zenaida Chua, BRYANNA) omega-3 fatty acids (LOVAZA) capsule 2 g 2 g, oral, 2 times daily, First dose on Sat11/26/21 at 2100, Do not crush, break, or open. 210 (Given - Provider: Zenaida Chua RN) 0852 (Given - Provider: Annika Toledo RN) potassium chloride ER (KLOR-CON) extended release tablet 40 mEq (COMPLETED) 40 mEq, oral, Once, On Sat11/26/21 at 0900, For 1 dose, Do not crush, chew, cut, dissolve, open or otherwise manipulate tablet/capsule., Indications: hypokalemia 0819 (Given - Provider: Annika Toledo, BRYANNA) rosuvastatin (CRESTOR) tablet 20 mg 20 mg, oral, Nightly, First dose on Sat11/24/21 at 2100 2012 (Given - Provider: Zenaida Chua, RN) 210 (Given - Provider: Zenaida Chua, BRYANNA) Continuous Medication Order 11/25/2021 11/26/2021 11/27/2021 insulin regular in 0.9% sodium chloride (MYXREDLIN) 100 unit/100 mL (1 unit/mL) infusion (premix) (CANCELED) 0-30 Units/hr (0-30 mL/hr), 1 units/mL, intravenous, Titrated, Starting on Sat11/24/21 at 0230, Until Sat11/26/21 at 1738, Indications: diabetic ketoacidosis, NON-WEIGHT BASED DOSING Initial rate from OSH (If patient currently receiving insulin infusion, enter current infusion rate.) Blood Glucose (BG) Decreasing OR Same as Last Value BG less than 100 mg/dL: - Hold insulin infusion and notify MD. Do NOT hold infusion for more than 1 hour. Give D10 250mL IVPB over 15minutes (if BG <50mg/dL and patient has an altered level of consciousness give D50 (25gm) IV Push over 2 minutes instead of D10). - Check BG Q15 minutes and continue treatment until BG >100mg/dL. - Restart Insulin Drip at 50% of the prior IV rate when BG is >100mg/dL. Minimum infusion rate of 1 unit/hour. - Contact MD to determine if the D5W rate should be increased above the 100mL/hour rate. BG 100 - 150 mg/dL: - If BG decreasing by 30mg/dL/hour or more - decrease insulin drip by 50% and call MD. - If BG decreasing by less than 30mg/dL/hour - maintain current drip rate BG 151 - 200 mg/dL: - Add D5W IVPB to current fluid orders at 100mL/hour (if not already done), call MD - If BG decreasing by 76 mg/dL/hour or more - decrease insulin drip by 50% - If BG decreasing by 50-75 mg/dL/hour - decrease insulin drip by 25% - If BG decreasing by less than 50 mg/dL/hour - maintain current drip rate BG 201-250 mg/dL: - Add D5W IVF to current fluid orders at 100mL/hour (if not already done), call MD. - If BG decreasing by 76 mg/dL/hour or more - decrease insulin drip by 50% - If BG decreasing by 30-75 mg/dL/hour - maintain current drip rate - IF BG decreasing less than 30 mg/dL/hour - increase insulin drip by 25% BG greater than 250 mg/dL: - If BG decreasing by greater than 200 mg/dL/hour - decrease drip by 50% - If BG decreasing by 76-199 mg/dL/hour - decrease drip by 25% - If BG decreasing by 51-75 mg/dL/hour - maintain current drip rate. - If BG decreasing by less than 50 mg/dL/hour - increase insulin drip by 25% Blood Glucose (BG) Increasing , BG less than 100 mg/dL: - Hold insulin infusion and notify MD. Do NOT hold infusion for more than 1 hour. Give D10 250mL IVPB over 15minutes (if BG <50mg/dL and patient has an altered level of consciousness give D50 (25gm) IV Push over 2 minutes instead of D10). - Check BG Q15 minutes and continue treatment until BG >100mg/dL. - Restart Insulin Drip at 50% of the prior IV rate when BG is >100mg/dL. Minimum infusion rate of 1unit/hour. - Contact MD to determine if the D5W rate should be increased above the 100mL/hour rate. BG 100 - 150 mg/dL: - If patient currently on insulin drip, maintain current rate. - If insulin drip currently held, restart at 50% of the last drip rate. Minimum infusion rate of 1 unit/hr. BG 151 - 200 mg/dL: - Maintain current drip rate BG 201 - 250 mg/dL: - Increase insulin drip by 25% BG greater than 250 mg/dL: - Increase insulin drip by 50% When adjusting drip rate, round changes to the nearest 0.5 units/hour increment For Type I Diabetics or equivalent, Do NOT discontinue drip until insulin maintenance regimen is implemented When new IV tubing is used, completely prime the tubing. Once primed, waste an additional 20 ml of insulin infusion using the IV pump prior to connecting to patient., Routine 0143 (New Bag - Provider: Zenaida Chua RN)0404 (Rate/Dose Change - Provider: Zenaida Chua RN)0740 (Rate/Dose Change - Provider: Jane Zepeda RN - Comment: bg 167, per protocol to maintain gtt)0800 (Rate/Dose Verify - Provider: Jane Zepeda RN)0945 (Rate/Dose Change - Provider: Jane Zepeda RN - Comment: BG 211, per protocol to increase by 25%)1354 (New Bag - Provider: Jane Zepeda RN)1500 (Rate/Dose Verify - Provider: Jane Zepeda RN)1544 (Rate/Dose Change - Provider: Jane Zepeda RN - Comment: bg 124, per protocol to decrease rate by 50%)1833 (Rate/Dose Change - Provider: Jane Zepeda RN - Comment: BG 204, per protocol to increase gtt by 25%)2138 (Rate/Dose Change - Provider: Zenaida Chua RN) 1117 (Rate/Dose Change - Provider: Annika Toledo RN)1724 (Stopped - Provider: Annika Toledo RN) sodium chloride 0.45% infusion (CANCELED) 150 mL/hr, intravenous, Continuous, Starting on Sat11/24/21 at 0230, Decrease rate to 100 mL/hr when blood glucose less than 250 mg/dL. 0404 (New Bag - Provider: Zenaida Chua RN)1201 (New Bag - Provider: Jane Zepeda RN)2013 (New Bag - Provider: Zenaida Chua RN) 0305 (New Bag - Provider: Zenaida Chua RN)1122 (New Bag - Provider: Annika Toledo RN)1807 (Stopped - Provider: Annika Toledo RN) PRN Medication Order 11/25/2021 11/26/2021 11/27/2021 acetaminophen (TYLENOL) 32 mg/mL oral solution 650 mg(Linked Group 1) 650 mg, feeding tube, Every 4 hours PRN, 1st line for pain, fever, Starting on Sat11/24/21 at 0144, Administer if patient receiving meds per tube., Indications: Fever, Pain acetaminophen (TYLENOL) suppository 650 mg(Linked Group 1) 650 mg, rectal, Every 4 hours PRN, 1st line for pain, fever, Starting on Sat11/24/21 at 0144, Administer if patient cannot tolerate enteral route., Indications: Fever, Pain acetaminophen (TYLENOL) tablet 650 mg(Linked Group 1) 650 mg, oral, Every 4 hours PRN, 1st line for pain, fever, Starting on Sat11/24/21 at 0144, Administer if patient can swallow tablets., Indications: Fever, Pain bisacodyL (DULCOLAX) suppository 10 mg 10 mg, rectal, Daily PRN, constipation, If no results 24 hours after polyethylene glycol (MIRALAX). May give bisacodyl tablet if tolerating PO., Starting on Sat11/24/21 at 0144, Indications: constipation bisacodyl EC (DULCOLAX EC) tablet 10 mg 10 mg, oral, Daily PRN, constipation, If no results 24 hours after polyethylene glycol (MIRALAX). May give bisacodyl supp if not tolerating PO), Starting on Sat11/24/21 at 0144, Do not crush, chew, cut, dissolve, open or otherwise manipulate tablet/capsule., Indications: constipation dextrose (D10W) 10% bolus 250 mL 250 mL, intravenous, at 1,000 mL/hr, Administer over 15 Minutes, Every 15 min PRN, blood glucose less than 100 mg/dL while on insulin infusion and patient does not have an altered level of consciousness, Starting on Sat11/24/21 at 0146, After treatment for hypoglycemia, recheck BG followed by treatment every 15 minutes until the BG is greater than 100 mg/dL. Restart Insulin Drip at 50% of the prior IV rate when BG is >100mg/dL. Minimum infusion rate of 1 unit/hour. Contact MD to determine if the D5W rate should be increased above the 100mL/hour rate., Indications: hypoglycemic disorder dextrose (D10W) 10% bolus 250 mL(Linked Group 2) 250 mL, intravenous, at 1,000 mL/hr, Administer over 15 Minutes, Every 15 min PRN, blood glucose less than 70 mg/dL and UNABLE to swallow/take PO glucose/juice., Starting on Sat11/24/21 at 2054, After treatment for hypoglycemia, recheck BG followed by treatment every 15 minutes until the BG is greater than 100 mg/dL. Then check BG 1 hour post treatment. If BG is less than 100 mg/dL, repeat Q15 minute BG checks and treatment. Call MD for each episode of hypoglycemia., Indications: hypoglycemic disorder dextrose gel in packet 15 g(Linked Group 2) 15 g, oral, Every 15 min PRN, low blood sugar, blood glucose less than 70 mg/dL, Starting on Sat11/24/21 at 2054, If patient is alert and able to eat/drink, give 15 gm glucose or one juice (4 fluid ounces) NOT ORANGE JUICE. After treatment for hypoglycemia, recheck BG followed by treatment every 15 minutes until the BG is greater than 100 mg/dL. Then check BG 1 hour post-treatment. If BG is less than 100 mg/dL, repeat Q15 minute BG checks and treatment. Call MD for each episode of hypoglycemia., Indications: hypoglycemic disorder glucagon injection 1 mg 1 mg, intramuscular, Every 30 min PRN, low blood sugar, blood glucose less than 70 mg/dL AND no IV access AND unable to take PO glucose/juice., Starting on Sat11/24/21 at 2054, After Glucagon is administered, position patient on side if possible to avoid aspiration. Obtain IV access. Follow glucagon treatment with glucose treatment or IV dextrose. After treatment for hypoglycemia, recheck BG followed by treatment every 15 minutes until the BG is greater than 100 mg/dL. Then check BG 1 hour post treatment. If BG is less than 100 mg/dL, repeat Q15 minute BG checks and treatment. Call MD for each episode of hypoglycemia. Reconstitute 1 mg vial with 1 mL SWFI. Use immediately following reconstitution. loperamide (IMODIUM) capsule 2 mg 2 mg, oral, 4 times daily PRN, diarrhea, Starting on Sat11/25/21 at 1816, Maximum recommended dose 16 mg/day ondansetron (ZOFRAN) injection 4 mg 4 mg, intravenous, Administer over 2 Minutes, Every 6 hours PRN, nausea, vomiting, Starting on Sat11/24/21 at 0144, Indications: nausea and vomiting 0310 (Given - Provider: Zenaida Chua RN) polyethylene glycol (MIRALAX) packet 17 g 17 g, oral, Daily PRN, constipation, Starting on Sat11/24/21 at 0144, Indications: constipation Linked Groups Order Group 1: acetaminophen (TYLENOL) tablet 650 mgJump to med 650 mg, oral, Every 4 hours PRN, 1st line for pain, fever, Starting on Sat11/24/21 at 0144, Administer if patient can swallow tablets., Indications: Fever, Pain Or acetaminophen (TYLENOL) 32 mg/mL oral solution 650 mgJump to med 650 mg, feeding tube, Every 4 hours PRN, 1st line for pain, fever, Starting on Sat11/24/21 at 0144, Administer if patient receiving meds per tube., Indications: Fever, Pain Or acetaminophen (TYLENOL) suppository 650 mgJump to med 650 mg, rectal, Every 4 hours PRN, 1st line for pain, fever, Starting on Sat11/24/21 at 0144, Administer if patient cannot tolerate enteral route., Indications: Fever, Pain Group 2: dextrose gel in packet 15 gJump to med 15 g, oral, Every 15 min PRN, low blood sugar, blood glucose less than 70 mg/dL, Starting on Sat11/24/21 at 2054, If patient is alert and able to eat/drink, give 15 gm glucose or one juice (4 fluid ounces) NOT ORANGE JUICE. After treatment for hypoglycemia, recheck BG followed by treatment every 15 minutes until the BG is greater than 100 mg/dL. Then check BG 1 hour post-treatment. If BG is less than 100 mg/dL, repeat Q15 minute BG checks and treatment. Call MD for each episode of hypoglycemia., Indications: hypoglycemic disorder Or dextrose (D10W) 10% bolus 250 mLJump to med 250 mL, intravenous, at 1,000 mL/hr, Administer over 15 Minutes, Every 15 min PRN, blood glucose less than 70 mg/dL and UNABLE to swallow/take PO glucose/juice., Starting on Sat11/24/21 at 2054, After treatment for hypoglycemia, recheck BG followed by treatment every 15 minutes until the BG is greater than 100 mg/dL. Then check BG 1 hour post treatment. If BG is less than 100 mg/dL, repeat Q15 minute BG checks and treatment. Call MD for each episode of hypoglycemia., Indications: hypoglycemic disorder documented in this encounter Orders Medications Ordered That Néstor ht Not Have Been Administered Count Last Ordered Date First Ordered Date insulin lispro (HumaLOG, ADM ELOG) 100 unit/mL injection 40 Units 1 11/27/2021 insulin lispro (HumaLOG, ADM ELOG) 100 unit/mL injection 0-25 Units 1 11/26/2021 loperamide (IMODIUM) capsule 2 mg 1 022 acetaminophen (TYLENOL) suppository 650 mg 1 11/24/2021 acetaminophen (TYLENOL) tablet 650 mg 1 bisacodyL (DULCOLAX) suppository 10 mg 1 bisacodyl EC (DULCOLAX EC) tablet 10 mg 1 0 11/24/2021 ceFAZolin (ANCEF) 1 gram/10 mL in sterile water (premix) 1,000 mg 1 11/24/2021 dextrose (D10W) 10% bolus 250 mL 2 11/25/19 dextrose gel in packet 15 g 1 11/24/2021 glucagon injection 1 mg 1 11/24/2021 mupirocin (BACTROBAN) 2 % ointment 1 2021 polyethylene glycol (MIRALAX) packet 17 g 1 11/24/2021 Lab Orders Without Results Count Last Ordered D ate First Ordered Date POCT GLUCOSE DEVICE 64 11/27/2021 11/25/19 Nursing Count Last Ordered Date First Orde red Date WEIGH PATIENT 1 11/24/2021 Consult Count Last Ordered Date First Orde red Date IP CONSULT TO ENDOCRINOLOGY 2 11/25/2021 11/24/2021 IP CONSULT TO CORPORATE TRAVEL MANAGER 1 Admission Count Last Ordered Date First Orde red Date ADMIT TO INPATIENT 1 11/24/2021 Discharge Count Last Ordered Date First Orde red Date DISCHARGE PATIENT 1 11/27/2021 documented in this encounter Care Teams Dry Kiln Operator Helper Relationship Specialty Start Date End Date Keila Jimenez MD [address] [place] [address] PCP - General 6/26/22 Mariana Monique MD [address] [place] [address] Referring Physician Internal Medicine 01/17/20 documented as of this encounter
--- OUTSIDE RECORDS SUMMARY | 2024-05-10 17:14 | XMS_ITS | Encounter Summary ---
Author Organization [facility] Address [address] [place] [address] Phone Care Team Providers Care Sand Slinger Operator Name Role Phone Jann Burrows MD Primary Care Provider [phone] Mariana Monique MD Unavailable [phone] Encounter Details Date Type Department Care Team (Late st Contact Info) Description 12/30/2019 Telephone [facility] Endocrinology Metabolism and Lipid [address] [facility] 5th [place] [address] [place] [address] Noemí Najera LPN Social History Tobacco Use Types Packs/Day Years Used Date Smoking Tobacco: Every Day Cigarettes Smokeless Tobacco: Current Chew Alcohol Use Standard Drinks/Week Comments Yes 24 (1 standard drink = 0.6 oz pu re alcohol) CAGE negative. Case per week. 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 Last BS before leaving the hospital was 467. Patient wants to know what he should do. Also ask for a call back from you. documented in this encounter Plan of Treatment Not on file documented as of this encounter Visit Diagnoses Not on filedocumented in this encounter Additional Health Concerns Infection Onset Date Last Indicated Resolved Time COVID: Suspected 01/14/2020 01/14/2020 01/14/2020 6:21 PM CDT COVID19 01/15/2020 01/15/2020 01/31/2020 3:06 AM CDT documented as of this encounter Care Teams Sand Slinger Operator Relationship Specialty Start Date End Date Jann Burrows MD [address] [place], [place] [id number] PCP - General Hematology 03/13/19 10/28/21 Mariana Monique MD [address] [place] [address] Referring Physician Internal Medicine 01/17/20 documented as of this encounter
--- OUTSIDE RECORDS SUMMARY | 2024-05-10 17:14 | XMS_ITS | Encounter Summary ---
Author Organization [facility] Healthcare Address [address] [place] [address] Care Team Providers Care Road Worker Name Role Phone Jann Burrows MD Primary Care Provider [phone] Encounter Details Date Type Department Care Team (Late st Contact Info) Description 01/14/2020 Documentation [facility] Primary Care Medicine Clinic [address] [facility] [address] [place] [address] Zaire Dao MD [address] [facility] [address] [place], [place] [id number] Social History Tobacco Use Types Packs/Day Years Used Date Smoking Tobacco: Never Smokeless Tobacco: Former Chew Quit: 01/13/2019 Alcohol Use Standard Drinks/Week Comments Not Currently 0 (1 standard drink = 0.6 oz pur e alcohol) Sex and Gender Information Value Date Recorded Sex Assigned at Not on file 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 Velez. He was tested for Covid-19 on 01/10 but the results have not come back yet. He endorses having frequent coughing, chest pain which he associateswith frequent vomiting and his cough, watery bowel movements, chills, and shortness of breath. He reports that he gets short of breath while ambulating around in his house. He has a BMI of 54. I recommended he present to an ED for further evaluation which he agrees to do. documented in this encounter Plan of Treatment Not on file documented as of this encounter Visit Diagnoses Not on filedocumented in this encounter Care Teams Road Worker Relationship Specialty Start Date End Date Jann Burrows MD [address] [facility] [address] [place] [address] PCP - General Hematology 03/13/19 10/28/21 documented as of this encounter
--- OUTSIDE RECORDS SUMMARY | 2024-05-10 17:14 | XMS_ITS | Encounter Summary ---
Author Organization [facility] Address [address] [place] [address] Phone Care Team Providers Care Transportation Escort Name Role Phone Jann Burrows MD Primary Care Provider [phone] Mariana Monique MD Unavailable [phone] Reason for Visit * Reason Onset Date Comments Prior Auth Wegovy 06/13/2021 Encounter Details Date Type Department Care Team (Late st Contact Info) Description 06/13/2021 Telephone [facility] Endocrinology Metabolism and Lipid [address] 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 OR WAREHOUSE CLERK * Telephone Encounter - Denia Albert RN - 06/13/2021 3:44 PM SENIOR WAREHOUSE CLERK Images from the original note were not included. Patient of Dr Styles OR WAREHOUSE CLERK documented in this encounter Plan of Treatment Not on file documented as of this encounter Visit Diagnoses Not on filedocumented in this encounter Care Teams Transportation Escort Relationship Specialty Start Date End Date Jann Burrows MD [address] [place] [address] PCP - General Hematology 03/13/19 10/28/21 Mariana Monique MD [address] [place] [address] Referring Physician Internal Medicine 01/17/20 documented as of this encounter
--- OUTSIDE RECORDS SUMMARY | 2024-05-10 17:14 | XMS_ITS | Encounter Summary ---
Author Organization [facility] Healthcare Address [address] [place] [address] Care Team Providers Care Braddisher Name Role Phone Jann Burrows MD Primary Care Provider [phone] Mariana Monique MD Unavailable [phone] Encounter Details Date Type Department Care Team (Late st Contact Info) Description 08/24/2021 11:20 AM CDT [address] [address] Sheldon Garcia MD [address] [id number] Discharge Disposition: Discharge to home or self care Social History Tobacco Use Types Packs/Day Years Used Date Smoking Tobacco: Never Smokeless Tobacco: Former Chew Quit: 01/13/2019 Alcohol Use Standard Drinks/Week Comments Not Currently 0 (1 standard drink = 0.6 oz pur e alcohol) Sex and Gender Information Value Date Recorded Sex Assigned at Not on file Legal Sex Male 5:01 AM COUNTER HAND Gender Identity Male 12/18/2017 12:38 PM CDT Sexual Orientation Not on file 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 Not on file Not on file documented as of this encounter Discharge Disposition Disposition Code Departure Means Destination Discharge to home or self care documented in this encounter Plan of Treatment Not on file documented as of this encounter Procedures Procedure Name Priority Date/Time Associated Diagnosis Comments TB TEST, QUANTIFERON GOLD Routine 08/24/2021 11:23 AM CDT documented in this encounter Results * TB test, quantiferon gold (08/24/2021 11:23 AM CDT) [facility] Quantiferon TB Gold Negative Negative [facility] ([facility]) Comment: No interferon-gamma response to M. tuberculosis antigens was detected. Latent infection with M. tuberculosis is unlikely. A single negative result does not exclude infection with M. tuberculosis. In patients at high risk for M.tuberculosis infection, a second test should be considered in accordance with the 2017 ATS/IDSA/CDC Clinical Practice Guidelines for Diagnosis of Tuberculosis in Adults and Children [Lewinsohn DM et. al. Clin. Infect. Dis. 2017;64(2):111-115]. The reference range for the 'TB1 Ag minus Nil Result' and 'TB2 Ag minus Nil Result' is an Interferon-gamma level <0.35 IU/mL. TB-Nil 0.05 IUnits/mL [facility] ([facility]) TB2-Nil 0.03 IUnits/mL [facility] ([facility]) Mitogen-Nil >10.00 IUnits/mL [facility] ([facility]) NIL 0.02 IUnits/mL [facility] ([facility]) Comment: Test Performed by: [facility] [place] [address] Coil Maker: Josiah Turk M.D. Ph.D.; CLIA# [id number] Blood 08/24/2021 11:2 3 AM CDT 08/24/2021 1:14 PM CDT us Sheldon Garcia MD LAB BLOOD ORDERABLES Final Result [facility] ([facility]) [address] [facility] Department of Laboratories [place], [place] [id number] documented in this encounter Visit Diagnoses Not on filedocumented in this encounter Care Teams Braddisher Relationship Specialty Start Date End Date Jann Burrows MD [address] [facility] [address] [place] [address] PCP - General Hematology 03/13/19 10/28/21 Mariana Monique MD [address] [place] [address] Referring Physician Internal Medicine 01/17/20 documented as of this encounter
--- OUTSIDE RECORDS SUMMARY | 2024-05-10 17:14 | XMS_ITS | Encounter Summary ---
Author Organization [facility] Healthcare Address [address] [place] [address] Care Team Providers Care Home Health Speech Therapist Name Role Phone Jann Burrows MD Primary Care Provider [phone] Mariana Monique MD Unavailable [phone] Reason for Visit * Reason Comments Hyperglycemia Encounter Details Date Type Department Care Team (Late st Contact Info) Description 06/06/2021 11:52 AM OFFICE MACHINE PUNCH OPERATOR - 06/07/2021 3:23 PM OFFICE MACHINE PUNCH OPERATOR Emergency [facility] [address] [place] [id number] Charles Andrew MD [address] [place] [address] Magno Nuñez MD [address] [place] [address] Enrique Baker MD [address] [facility] [address] [place] [address] Ketoacidosis due to diabetes (CMS/HCC) (HCC) (Primary Dx); Hyperglycemia due to diabetes mellitus (CMS/HCC) (HCC) Discharge Disposition: Discharge to home or self care Social History Tobacco Use Types Packs/Day Years Used Date Smoking Tobacco: Never Smokeless Tobacco: Former Chew Quit: 01/13/2019 Alcohol Use Standard Drinks/Week Comments Not Currently 0 (1 standard drink = 0.6 oz pur e alcohol) Sex and Gender Information Value Date Recorded Sex Assigned at Not on file Legal Sex Male 5:01 AM OFFICE MACHINE PUNCH OPERATOR Gender Identity Male 12/18/2017 12:38 PM CDT Sexual Orientation Not on file 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 Not on file Not on file documented as of this encounter Last Filed Vital Signs Vital Sign Reading Time Taken Comments Blood Pressure 129/60 06/07/2021 2:45 PM OFFICE MACHINE PUNCH OPERATOR Pulse 87 06/07/2021 2:45 PM OFFICE MACHINE PUNCH OPERATOR Temperature 36.7 ??C (98.06 ??F) 06/07/2021 2:[address] Respiratory Rate 16 06/07/2021 2:45 PM OFFICE MACHINE PUNCH OPERATOR Oxygen Saturation 97% 06/07/2021 2:45 PM OFFICE MACHINE PUNCH OPERATOR Inhaled Oxygen Concentration - - Weight 188.2 kg (415 lb) 06/06/2021 9:45 PM OFFICE MACHINE PUNCH OPERATOR Height 207.3 cm (6' 9.6 ) 06/06/2021 9:45 PM OFFICE MACHINE PUNCH OPERATOR Body Mass Index 43.82 06/06/2021 9:45 PM OFFICE MACHINE PUNCH OPERATOR documented in this encounter Discharge Diagnoses Diagnosis Type 2 diabetes mellitus with ketoacidosis without coma (HCC) - TYPE 2 DIABETES MELLITUS WITH KETOACIDOSIS WITHOUT COMA Essential (primary) hypertension - ESSENTIAL (PRIMARY) HYPERTENSION Unspecified essential hypertension Metabolic syndrome - METABOLIC SYNDROME Dysmetabolic Syndrome X Depression, unspecified - DEPRESSION, UNSPECIFIED Anxiety disorder, unspecified - ANXIETY DISORDER, UNSPECIFIED 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 Other skilled nursing (current) drug therapy - OTHER LONGTERM (CURRENT) DRUG THERAPY Personal history of COVID-19 - PERSONAL HISTORY OF COVID-19 documented in this encounter Discharge Summaries * Arabella Munoz NP - 06/07/2021 2:34 PM CST Inpatient Discharge Summary BRIEF OVERVIEW Admitting Provider: Magno Nuñez MD Discharge Provider: Enrique Baker MD Primary Care Physician at Discharge: Jann Burrows MD [phone] Admission Date: 06/06/2021 Discharge Date: 06/07/2021 Admission Location: [facility] Problems/Diagnoses: Active Problems: Essential hypertension Diabetic ketoacidosis without coma associated with type 2 diabetes mellitus (CMS/HCC) (HCC) Mood disorder (CMS/HCC) (HCC) Resolved Problems: No resolved hospital problems. DETAILS OF HOSPITAL STAY Presenting Problem/History of Present Illness: Patient is a 25 yo M with a history of T2DM who presented with nausea/vomiting. ?? History was obtained from patient and chart review. ?? Patient reports that he started having nausea/vomiting the night before coming to the hospital. He originally went to an urgent care but was sent to the ED for hyperglycemia. He also reported a Temp of 100F but denied fever, chills, nightsweats. He also denies cough, chest pain, sob, abdominal pain, or diarrhea. He denies any other complaints. He reports he has been taking his insulin as prescribed. He reports his current prescription is U500 150 units tid and lispro 24 units with meals. ?? In the ED: VS significant for afebrile, P 104 Labs significant for AG 20, CO2 19, glucose 535 CXR without pneumonia Patient was started on subq insulin protocol for low risk DKA with improvement in his blood sugar to <200 ?? Hospital Course: Pt was admitted for further monitoring. He was given lantus 100 units BID and lispro 20 units with meals as transition from SQUID protocol. BG in 200s. His repeat BMP this AM showed a normalized AG. He was evaluated by the endocrine team and for now will keep his home regimen of 150 units U500 humulin R TID and humalog 24 units TID with meals. 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 Active Issues Requiring Follow-up: Follow up with Endocrine 06/08/21 Test Results Pending at Discharge: None Operative Procedures Performed: None Other Procedures: None Pertinent Test Results: As per hospital course Discharge Details Physical Exam at Discharge: Discharge Condition: good Pulse: 75 Resp: 18 BP: 166/67 Temp: 36.4 ??C (97.52 ??F) Weight: (!) 188.2 kg (415 lb) Pertinent Exam Findings at Discharge: Gen: wd/wn, in nad HEENT: nc/at, eomi, anicteric sclera Cardiac: RRR, normal s1/s2, no m/r/g Pulm: CTAB, no c/r/w Abd: soft, nt/nd, normoactive bs Ext: no c/c/e Skin: no visible rashes MSK: normal bulk and tone Neuro: A&Ox4, Boom Boss 3-12 grossly intact, no focal neuro deficit Psych: normal mood and affect Discharge Disposition: Discharge to home Code Status at Discharge: Full Discharge Instructions: Activity Instructions Discharge activity: Resume normal activity Diet Instructions Adult Discharge Diet Diet Type: Return to previous diet Other Instructions Call provider for: Temperature -Temperature greater than 101 degrees F Call provider for: difficulty breathing or chest pain Call provider for: extreme fatigue Call provider for: hives Call provider for: persistent dizziness or light-headedness Call provider for: persistent nausea or vomiting Call provider for: redness, tenderness, or signs of infection (pain, swelling, redness, odor or green/yellow discharge around incision site) Call provider for: severe uncontrolled pain Call provider for: headache, visual disturbances, weakness and speech changes Contact clinic prior to visit if COVID positive If you are positive for Covid, please contact the clinic prior to your appointment for further coordination of your care Special Instructions Resume home regimen of insulin. Follow up tomorrow in Endocrine clinic Discharge Medications: Current Medications TAKE these medications atorvastatin 20 mg tablet Take 1 tablet (20 mg total) by mouth daily Commonly known as: LIPITOR blood-glucose meter kit 1 kit once for 1 dose Patient needs in room for diabetes education carvediloL 25 mg tablet Take 1 tablet (25 mg total) by mouth 2 (two) times a day with meals Commonly known as: COREG DULoxetine DR 60 mg capsule Take 1 capsule (60 mg total) by mouth daily For: anxiousness associated with depression Commonly known as: CYMBALTA glucagon 1 mg kit Generic drug: glucagon glucose blood strip Check blood sugar 4-5 times a day or as directed using one touch verio Generic drug: blood glucose diagnostic HumuLIN R U-500 500 unit/mL (3 mL) CONCENTRATED pen for injection Inject 0.3 mL (150 Units total) under the skin 3 (three) times a day Generic drug: insulin regular U-500 insulin lispro 100 unit/mL pen for injection Inject 24 Units under the skin 3 (three) times a day with meals Commonly known as: HumaLOG, ADMELOG lisinopriL 20 mg tablet Take 1 tablet (20 mg total) by mouth daily Commonly known as: PRINIVIL,ZESTRIL Start taking on: June 08, 2021 metFORMIN 500 mg tablet Take 2 tablets (1,000 mg total) by mouth 2 (two) times a day with meals Commonly known as: GLUCOPHAGE mupirocin 2 % ointment Apply topically 3 (three) times a day Commonly known as: BACTROBAN NovoLOG 100 unit/mL (3 mL) pen for injection Inject 24 Units under the skin 3 (three) times a day before meals Generic drug: insulin aspart * pen needle, diabetic 32 gauge x 5/32 needle Use to inject insulin BG three times a day as instructed Commonly known as: BD Ultra-Fine Ibeth Pen Needle * pen needle, diabetic 32 gauge x 5/32 needle USE DIRECTED 3 TIMES A DAY Commonly known as: BD Ultra-Fine Ibeth Pen Needle * This list has 2 medication(s) that are the same as other medications prescribed for you. Read the directions carefully, and ask your doctor or other care provider to review them with you. Outpatient Follow-Up: Future Appointments Date Time Provider Department Center 06/08/2021 4:00 PM Peter Styles Jr., MD [facility] [address] [place] [address] [facility] Cosigned by Enrique Baker MD at 06/07/2021 3:41 PM OFFICE MACHINE PUNCH OPERATOR CE MACHINE PUNCH OPERATOR CE MACHINE PUNCH OPERATOR documented in this encounter Discharge Instructions * Discharge Instructions* Genny Sinclair RN - 06/07/2021 3:11 PM OFFICE MACHINE PUNCH OPERATOR Images from the original note were not included. Diabetes in the Older Adult WHAT YOU NEED TO KNOW: Older adults with diabetes are at risk for heart disease, stroke, kidney disease, blindness, and nerve damage. You may also be at risk for any of the following: ?? Poor nutrition or low blood sugar levels ?? Confusion or problems with memory, attention, or learning new things ?? Trouble controlling urination or frequent urinary tract infections ?? Trouble with coordination or balance ?? Falls and injuries ?? Pain ?? Depression ?? Open sores on your legs or feet DISCHARGE INSTRUCTIONS: Call 911 for any of the following: ?? You have any of the following signs of a stroke: ?? Numbness or drooping on one side of your face ?? Weakness in an arm or leg ?? Confusion or difficulty speaking ?? Dizziness, a severe headache, or vision loss ?? You have any of the following signs of a heart attack: ?? Squeezing, pressure, or pain in your chest that lasts longer than 5 minutes or returns ?? Discomfort or pain in your back, neck, jaw, stomach, or arm ?? Trouble breathing ?? Nausea or vomiting ?? Lightheadedness or a sudden cold sweat, especially with chest pain or trouble breathing Return to the emergency department if: ?? You have severe abdominal pain, or the pain spreads to your back. You may also be vomiting. ?? You have trouble staying awake or focusing. ?? You are shaking or sweating. ?? You have blurred or double vision. ?? Your breath has a fruity, sweet smell. ?? Your breathing is deep and labored, or rapid and shallow. ?? Your heartbeat is fast and weak. ?? You fall and get hurt. Contact your healthcare provider if: ?? You are vomiting or have diarrhea. ?? You have an upset stomach and cannot eat the foods on your meal plan. ?? You feel weak or more tired than usual. ?? You feel dizzy, have headaches, or are easily irritated. ?? Your skin is red, warm, dry, or swollen. ?? You have a wound that does not heal. ?? You have numbness in your arms or legs. ?? You have trouble coping with your illness, or you feel anxious or depressed. ?? You have problems with your memory. ?? You have changes in your vision. ?? You have questions or concerns about your condition or care. Medicines may be given to decrease the amount of sugar in your blood. You may also need medicine tolower your blood pressure or cholesterol, or medicine to prevent blood clots. Manage the ABCs and prevent problems caused by diabetes: ?? Check your blood sugar levels as directed. Your healthcare provider will tell you when and how often to check during the day. Your healthcare provider will also tell you what your blood sugar levels should be before and after a meal. You may need to check for ketones in your urine or blood if your level is higher than directed. Write down your results and show them to your healthcare provider.Your provider may use the results to make changes to your medicine, food, or exercise schedules. Ask your healthcare provider for more information about how to treat a high or low blood sugar level. ?? Follow your meal plan as directed. A dietitian will help you make a meal plan to keep your bloodsugar level steady and make sure you get enough nutrition. Do not skip meals. Your blood sugar level may drop too low if you have taken diabetes medicine and do not eat. Ask your healthcare provider about programs in your community that can deliver the meals to your home. ?? Try to be active for 30 to 60 minutes most days of the week. Exercise can help keep your blood sugar level steady, decrease your risk of heart disease, and help you lose weight. It can also help improve your balance and decrease your risk for falls. Work with your healthcare provider to create an exercise plan. Ask a family member or friend to exercise with you. Start slow and exercise for 5 to 10 minutes at a time. Examples of activities include walking or swimming. Include muscle strengthening activities 2 to 3 days each week. Include balance training 2 to 3 times each week. Activities that help increase balance include yoga and dennise chi. ?? Maintain a healthy weight. Ask your healthcare provider how much you should weigh. A healthy weight can help you control your diabetes and prevent heart disease. Ask your provider to help you create a weight loss plan if you are overweight. Together you can set manageable weight loss goals. ?? Do not smoke. Ask your healthcare provider for information if you currently smoke and need help to quit. Do not use e-cigarettes or smokeless tobacco in place of cigarettes or to help you quit. They still contain nicotine. ?? Manage stress. Stress may increase your blood sugar level. Deep breathing, muscle relaxation, and music may help you relax. Ask your healthcare provider for more information about these practices. Other ways to manage your diabetes: ?? Check your feet every day for sores. Look at your whole foot, including the bottom, and between and under your toes. Check for wounds, corns, and calluses. Use a mirror to see the bottom of your feet. The skin on your feet may be shiny, tight, dry, or darker than normal. Your feet may also be cold and pale. Feel your feet by running your hands along the tops, bottoms, sides, and between your toes. Redness, swelling, and warmth are signs of blood flow problems that can lead to a foot ulcer. Do not try to remove corns or calluses yourself. ?? Wear medical alert identification. Wear medical alert jewelry or carry a card that says you havediabetes. Ask your healthcare provider where to get these items. ?? Ask about vaccines. You have a higher risk for serious illness if you get the flu, pneumonia, orhepatitis. Ask your healthcare provider if you should get a flu, pneumonia, shingles, or hepatitis B vaccine, and when to get the vaccine. ?? Keep all appointments. You may need to return to have your A1c checked every 3 months. You will need to return at least once each year to have your feet checked. You will need an eye exam once a year to check for retinopathy. You will also need urine tests every year to check for kidney problems. You may need tests to monitor for heart disease. Write down your questions so you remember to ask them during your visits. ?? Get help from family and friends. You may need help checking your blood sugar level, giving insulin injections, or preparing your meals. Ask your family and friends to help you with these tasks. Talk to your healthcare provider if you do not have someone at home to help you. A healthcare provider can come to your home to help you with these tasks. Follow up with your healthcare provider as directed: You may need to return to have your A1c checked every 3 months. You will need to return at least once each year to have your feet checked. You will need an eye exam once a year to check for retinopathy. You will also need urine tests every year to check for kidney problems. You may need tests to monitor for heart disease. Write down your questions so you remember to ask them during your visits. ?? 2017 [employer] Information is for End User's use only and may not be sold, redistributed or otherwise used for commercial purposes. All illustrations and images included in CareNotes?? are the copyrighted property of [employer] or [employer]. The above information is an ward aide only. It is not intended as medical advice for individual conditions or treatments. Talk to your doctor, nurse or pharmacist before following any medical regimen to see if it is safe and effective for you. CE MACHINE PUNCH OPERATOR documented in this encounter Medications at Time of Discharge glucagon 1 mg injection 06/02/2019 atorvastatin (LIPITOR) 20 mg tabletIndications: Diabetic ketoacidosis without coma associated with other specified diabetes mellitus (HCC) Take 1 tablet (20 mg total) by mouth daily 90 tablet 3 03/19/2019 2 blood glucose diagnostic (glucose blood) stripIndications:D iabetic ketoacidosis without coma associated with other specified diabetes mellitus (HCC) Check blood sugar 4-5 times a day or as directed using one touch verio 400 each 3 01/16/2021 2 blood-glucose meter kit 1 kit once for 1 dose Patient needs in room for diabetes education 1 each 03/05/2019 2 carvediloL (COREG) 25 mg tablet Take 1 tablet (25 mg total) by mouth 2 (two) times a day with meals 180 tablet 3 02/10/[address] (CYMBALTA) 60 mg capsuleIndications :Anxiety with Depression Take 1 capsule (60 mg total) by mouth daily 90 capsule 1 08/14/2020 2 HumuLIN R U-500 500 unit/mL (3 mL) CONCENTRATED pen for injection Inject 0.3 mL (150 Units total) under the skin 3 (three) times a day 30 mL 06/07/2021 2 insulin lispro (HumaLOG, ADMELOG) 100 unit/mL pen for injection Inject 24 Units under the skin 3 (three) times a day with meals 30 mL 06/07/2021 2 lisinopriL (PRINIVIL,ZESTRIL) 20 mg tablet Take 1 tablet (20 mg total) by mouth daily 30 tablet 06/08/2021 2 metFORMIN (GLUCOPHAGE) 500 mg tabletIndications: Diabetic ketoacidosis without coma associated with other specified diabetes mellitus (HCC) Take 2 tablets (1,000 mg total) by mouth 2 (two) times a day with meals 360 tablet 3 05/26/2020 2 mupirocin (BACTROBAN) 2 % ointment Apply topically 3 (three) times a day 30 g 12/21/2019 2 NovoLOG 100 unit/mL (3 mL) pen for injection Inject 24 Units under the skin 3 (three) times a day before meals 30 mL 06/07/2021 2 pen needle, diabetic (BD Ultra-Fine Ibeth Pen Needle) 32 gauge x 5/32 needleIndications: Metabolic syndrome Use to inject insulin BG three times a day as instructed 450 each 3 06/02/2020 2 pen needle, diabetic (BD Ultra-Fine Ibeth Pen Needle) 32 gauge x 5/32 needle USE DIRECTED 3 TIMES A DAY 100 each 3 06/07/2020 2 documented as of this encounter Ordered Prescriptions Prescription Sig Dispense Quantity Refills Last Filled Start Date End Date lisinopriL (PRINIVIL,ZESTRIL) 20 mg tablet Take 1 tablet (20 mg total) by mouth daily 30 tablet 06/08/2021 06/19/2021 insulin lispro (HumaLOG, ADMELOG) 100 unit/mL pen for injection Inject 24 Units under the skin 3 (three) times a day with meals 30 mL 06/07/2021 11/24/2021 HumuLIN R U-500 500 unit/mL (3 mL) CONCENTRATED pen for injection Inject 0.3 mL (150 Units total) under the skin 3 (three) times a day 30 mL 06/07/2021 11/24/2021 NovoLOG 100 unit/mL (3 mL) pen for injection Inject 24 Units under the skin 3 (three) times a day before meals 30 mL 06/07/2021 11/24/2021 documented in this encounter Discharge Disposition Disposition Code Departure Means Destination Discharge to home or self care documented in this encounter Progress Notes * Genny Sinclair, RN - 06/07/2021 2:57 PM CST Assessment of patient???s baseline is established at the beginning of the shift in flowsheets. Patient reassessed per order, unexpected findings and/or deviations from baseline are captured in flowsheets. Frequent safety checks and comfort rounds provided. Orders and/or nursing care completed as indicated. Patient monitored for response to interventions and treatments as documented in flowsheets. Plan of care discussed with patient/claims representative, including as it relates to Active Problems: Essential hypertension Diabetic ketoacidosis without coma associated with type 2 diabetes mellitus (CMS/HCC) (HCC) Mood disorder (CMS/HCC) (HCC) Patient . Clinical goals for the shifEducation provided includes cont to monitor blood sugars and follow up with appt with endocrinology . Patient and/or claims representative . Will continue to monitor. CE MACHINE PUNCH OPERATOR * Jenifer Tellez RD - 06/07/2021 2:37 PM CST Nutrition Screen Note Mr. Velez is a 25 y.o. male with chief complaint of nausea/vomiting. ?? HPI: Patient is a 25 yo M with a history of T2DM who presented with nausea/vomiting. ?? Pt. Screened for nutritional assessment secondary to weight loss unintentional. Wt Readings from Last 15 Encounters: 06/06/21 (!) 188.2 kg (415 lb) 10/13/20 (!) 190.9 kg (420 lb 12.8 oz) 06/02/20 (!) 175.5 kg (387 lb) 05/25/20 (!) 174.9 kg (385 lb 9.6 oz) 01/14/20 (!) 210.2 kg (463 lb 6.5 oz) 12/25/19 (!) 218.1 kg (480 lb 14.4 oz) 12/18/19 (!) 215.5 kg (475 lb) 11/19/19 (!) 219.8 kg (484 lb 8 oz) 05/27/19 (!) 215.1 kg (474 lb 4.8 oz) 03/19/19 (!) 206.4 kg (455 lb) 03/13/19 (!) 215.5 kg (475 lb) 03/04/19 (!) 207.2 kg (456 lb 11.2 oz) 07/23/18 (!) 210.7 kg (464 lb 9.6 oz) 05/01/18 (!) 210.9 kg (465 lb) 04/16/18 (!) 212.8 kg (469 lb 3.2 oz) Past Medical History: Diagnosis Date ??? Anxiety ??? Depression ??? Diabetes mellitus (HCC) ??? Disordered sleep 10/13/2017 ??? HTN (hypertension) ??? Metabolic syndrome ??? Morbid obesity with BMI of 50.0-59.9, adult (CMS/HCC) (HCC) 07/10/2017 ??? Pneumonia due to COVID-19 virus 01/15/2020 No past surgical history on file. Anthropometrics Weight: (!) 188.2 kg (415 lb) Admission Weight : 180.5 kg Weight Change: 7.71 kg (17.00 lbs) IBW/kg (Calculated) : 106.9 kg Height: 207.3 cm (6' 9.6 ) Weight in (lb) to have BMI = 25: 236.3 BMI (Calculated): 43.8 Dietary Orders (From admission, onward) Start Ordered 06/07/21 2100 Bedtime snack At bedtime Comments: If bedtime BG is less than 100mg/dl, give patient a 15 gram carbohydrate snack. 06/06/21 2257 06/07/21 0145 Adult Diet Restricted; Consistent Carbohydrate Diet effective now Question Answer Comment ([facility]) Diet type Restricted Diabetic: Consistent Carbohydrate 06/07/21 0144 HgbA1c - 9.9 Glucose 306 Medication hx today Lantus SSI Assessment / Impression Interviewed pt who states his weight loss has been intentional eating mostly protein and vegetables Educated pt on general healthy diet and provided educational materials Will follow per nutrition standards of care CE MACHINE PUNCH OPERATOR * Arabella Munoz NP - 06/07/2021 12:13 PM CST Daily Progress Note Division of Hospital Medicine Name: Geraldo Velez Today: June 07, 2021 : 1995 Age: 25 y.o. male Admit: 06/06/2021 Bed: [id number] Subjective Chief complaint: DKA Interval History: Pt admitted for DKA. Reports BG usually in 200s. Not unusual to be in 300 either.States began TID U500 insulin a few months ago. Denies much improvement with switch from BID to TID. Was treated with insulin as per SQUID protocol in ED. Transitioned to lantus/lispro overnight. BG this AM was 291. Last BMP with AG 16. Repeat BMP in lab. Pt currently without complaints. Diabetes service consulted for assistance with management Objective Medications: Scheduled: carvediloL, 25 mg, oral, BID with meals (bkfst, dinner) DULoxetine DR, 60 mg, oral, Daily insulin glargine, 100 Units, subcutaneous, BID insulin lispro, 0-10 Units, subcutaneous, TID with meals insulin lispro, 0-5 Units, subcutaneous, Nightly insulin lispro, 20 Units, subcutaneous, TID with meals lisinopriL, 20 mg, oral, Daily sodium chloride 0.9%, 0.5-20 mL, intra-catheter, Q8H MICHELLE Infusions: PRN: ??? acetaminophen ??? dextrose OR dextrose ??? glucagon ??? ibuprofen ??? insulin lispro ??? ondansetron ODT OR ondansetron ??? polyethylene glycol ??? ramelteon ??? sodium chloride 0.9% Vitals: 24hr Min/Max: Temp Min: 36.4 ??C (97.52 ??F) Max: 36.7 ??C (98.1 ??F) Pulse Min: 75 Max: 104 BP Min: 120/71 Max: 168/100 Resp Min: 13 Max: 27 SpO2 Min: 94 % Max: 98 % Most Recent: Vitals: 06/07/21 0400 BP: 166/67 Pulse: 75 Resp: 18 Temp: 36.4 ??C (97.52 ??F) SpO2: 95% Intake/Output Summary (Last 24 hours) at 06/07/2021 1213 Last data filed at 06/06/2021 1503 Gross per 24 hour Intake 2000 ml Output -- Net 2000 ml Physical Exam Constitutional: NAD, obese Eyes: PERRL, EOMI, anicteric ENT: NCAT, oropharynx normal, moist mucus membranes Lungs: Clear to auscultation in all lung [place], unlabored Cardiovascular: RRR, normal S1 and S2, no murmurs, no JVD GI: Soft, non-tender, non-distended Skin: Flushed cheeks. No new rashes, lesions or bruises on visible skin Extremities: Normal without edema or cyanosis Neurologic: AOx4, normal strength and sensation Psychiatric: Normal affect and mood I have reviewed the patient's vital signs. Lab/Diagnostic Review: Recent Results (from the past 36 hour(s)) POCT glucose Collection Time: 06/06/21 11:50 AM Result Value Ref Range Glucose, POC 535 (Critical) 70 - 199 mg/dL Glucose comment 1 RN Notified POCT ketone Collection Time: 06/06/21 11:52 AM Result Value Ref Range Ketones, Blood, POC 2.4 (A) 0.1 - 0.5 mmol/L Influenza A/B, RSV, and COVID-19 PCR Nasopharyngeal Collection Time: 06/06/21 12:24 PM Specimen: Nasopharyngeal Result Value Ref Range COVID-19 RNA Negative Negative Influenza A RNA Negative Negative Influenza B RNA Negative Negative RSV RNA Negative Negative First COVID-19 test? No Employeed in healthcare? No Group care resident? No Hospitalized? No Is patient in ICU? No Symptomatic as defined by CDC? No CBC with auto differential Collection Time: 06/06/21 12:24 PM Result Value Ref Range WBC 4.0 3.8 - 9.9 K/cumm Hgb See Comment 13.0 - 17.5 g/dL Hct 44.7 38.9 - 50.3 % Plt 327 150 - 400 K/cumm MPV 10.9 9.1 - 12.3 fL RBC 5.33 4.30 - 5.80 M/cumm MCV 83.9 81.3 - 96.4 fL MCH See Comment 27.1 - 33.3 pg MCHC See Comment 32.3 - 35.7 g/dL RDW CV 16.6 (H) 11.1 - 14.9 % RDW SD 42.8 35.7 - 48.1 fL NRBC abs 0.03 (H) 0.00 - 0.01 K/cumm Blood gas, venous Collection Time: 06/06/21 12:24 PM Result Value Ref Range pH, Venous 7.33 7.32 - 7.43 PCO2, Venous 36 (L) 40 - 50 mmHg PO2, Venous 66 mmHg HCO3 Venous, Calculated 20 20 - 30 mmol/L BE, venous -6 mmol/L Differential, auto Collection Time: 06/06/21 12:24 PM Result Value Ref Range Neutrophil abs 2.9 1.7 - 6.5 K/cumm Imm gran abs 0.0 0.0 - 0.1 K/cumm Lymphocyte abs 1.6 0.8 - 3.3 K/cumm Monocyte abs 0.4 0.2 - 0.8 K/cumm Eosinophil abs 0.1 0.0 - 0.5 K/cumm Basophil abs 0.0 0.0 - 0.1 K/cumm Neutrophil pct 57.2 % Imm gran pct 0.6 % Lymphocyte pct 31.0 % Monocyte pct 7.6 % Eosinophil pct 2.8 % Basophil pct 0.8 % POCT glucose Collection Time: 06/06/21 1:16 PM Result Value Ref Range Glucose, POC >600 (Critical) 70 - 199 mg/dL Glucose comment 1 RN Notified POCT glucose Collection Time: 06/06/21 1:58 PM Result Value Ref Range Glucose, POC 585 (Critical) 70 - 199 mg/dL Glucose comment 1 RN Notified Urinalysis reflex to microscopic Collection Time: 06/06/21 2:00 PM Result Value Ref Range Color, ur Straw Yellow Clarity, ur Clear Clear Specific gravity, ur 1.033 (H) 1.003 - 1.030 pH, urine 6 Protein, ur ql 1+ (A) Negative Glucose, ur ql 4+ (A) Negative Ketones, ur 3+ (A) Negative Bilirubin, ur Negative Negative Blood, ur Negative Negative Urobilinogen, ur <2.0 <2.0 mg/dL Nitrite, ur Negative Negative Leukocyte esterase, ur Negative Negative UA reflex comment Reflex to microscopic UA will be performed. Comprehensive metabolic panel Collection Time: 06/06/21 2:00 PM Result Value Ref Range Sodium See Comment 135 - 145 mmol/L Potassium, pl See Comment 3.3 - 4.9 mmol/L Chloride See Comment 97 - 110 mmol/L CO2 See Comment 22 - 32 mmol/L Anion gap See Comment 2 - 15 mmol/L BUN See Comment 8 - 25 mg/dL Creatinine See Comment 0.80 - 1.30 mg/dL Glucose See Comment 70 - 199 mg/dL Calcium See Comment 8.5 - 10.3 mg/dL Bilirubin, total See Comment 0.1 - 1.2 mg/dL Protein, pl See Comment 6.5 - 8.5 g/dL Albumin See Comment 3.5 - 5.0 g/dL Alk phos See Comment 40 - 130 Units/L ALT See Comment 7 - 55 Units/L AST See Comment 10 - 50 Units/L Lipase Collection Time: 06/06/21 2:00 PM Result Value Ref Range Lipase See Comment 10 - 99 Units/L CBC with auto differential Collection Time: 06/06/21 2:00 PM Result Value Ref Range WBC 4.7 3.8 - 9.9 K/cumm Hgb See Comment 13.0 - 17.5 g/dL Hct See Comment 38.9 - 50.3 % Plt 309 150 - 400 K/cumm MPV 10.8 9.1 - 12.3 fL RBC See Comment 4.30 - 5.80 M/cumm MCV See Comment 81.3 - 96.4 fL MCH See Comment 27.1 - 33.3 pg MCHC See Comment 32.3 - 35.7 g/dL RDW CV #SN 11.1 - 14.9 % RDW SD #SN 35.7 - 48.1 fL NRBC abs 0.04 (H) 0.00 - 0.01 K/cumm Magnesium Collection Time: 06/06/21 2:00 PM Result Value Ref Range Magnesium See Comment 1.4 - 2.5 mg/dL Differential, auto Collection Time: 06/06/21 2:00 PM Result Value Ref Range Neutrophil abs 2.7 1.7 - 6.5 K/cumm Imm gran abs 0.0 0.0 - 0.1 K/cumm Lymphocyte abs 1.5 0.8 - 3.3 K/cumm Monocyte abs 0.4 0.2 - 0.8 K/cumm Eosinophil abs 0.2 0.0 - 0.5 K/cumm Basophil abs 0.0 0.0 - 0.1 K/cumm Neutrophil pct 57.5 % Imm gran pct 0.4 % Lymphocyte pct 31.1 % Monocyte pct 7.4 % Eosinophil pct 3.2 % Basophil pct 0.4 % Urinalysis, microscopic only Collection Time: 06/06/21 2:00 PM Result Value Ref Range WBC, ur 0-5 0 - 5 /HPF RBC, ur 0-2 0 - 2 /HPF Epithelial cells, squamous, ur 1-5 0 - 5 /HPF eGFR Collection Time: 06/06/21 2:00 PM Result Value Ref Range eGFR See Comment 90 - 130 POCT glucose Collection Time: 06/06/21 2:59 PM Result Value Ref Range Glucose, POC 572 (Critical) 70 - 199 mg/dL Glucose comment 1 RN Notified Comprehensive metabolic panel Collection Time: 06/06/21 4:16 PM Result Value Ref Range Sodium 136 135 - 145 mmol/L Potassium, pl 3.7 3.3 - 4.9 mmol/L Chloride 97 97 - 110 mmol/L CO2 19 (L) 22 - 32 mmol/L Anion gap 20 (H) 2 - 15 mmol/L BUN 15 8 - 25 mg/dL Creatinine 0.73 (L) 0.80 - 1.30 mg/dL Glucose 426 (H) 70 - 199 mg/dL Calcium 9.6 8.5 - 10.3 mg/dL Bilirubin, total 0.3 0.1 - 1.2 mg/dL Protein, pl 7.1 6.5 - 8.5 g/dL Albumin 4.3 3.5 - 5.0 g/dL Alk phos 152 (H) 40 - 130 Units/L ALT 40 7 - 55 Units/L AST 18 10 - 50 Units/L Magnesium Collection Time: 06/06/21 4:16 PM Result Value Ref Range Magnesium 1.7 1.4 - 2.5 mg/dL Potassium, whole blood Collection Time: 06/06/21 4:16 PM Result Value Ref Range Potassium, bld 3.9 3.3 - 4.9 mmol/L CBC with auto differential Collection Time: 06/06/21 4:16 PM Result Value Ref Range WBC 4.8 3.8 - 9.9 K/cumm Hgb See Comment 13.0 - 17.5 Hct See Comment 38.9 - 50.3 Plt 290 150 - 400 K/cumm MPV 10.2 9.1 - 12.3 fL RBC See Comment 4.30 - 5.80 MCV See Comment 81.3 - 96.4 MCH See Comment 27.1 - 33.3 MCHC See Comment 32.3 - 35.7 RDW CV 13.1 11.1 - 14.9 % RDW SD 37.2 35.7 - 48.1 fL NRBC abs 0.00 0.00 - 0.01 K/cumm Lipase Collection Time: 06/06/21 4:16 PM Result Value Ref Range Lipase 36 10 - 99 Units/L Differential, auto Collection Time: 06/06/21 4:16 PM Result Value Ref Range Neutrophil abs 2.5 1.7 - 6.5 K/cumm Imm gran abs 0.0 0.0 - 0.1 K/cumm Lymphocyte abs 1.7 0.8 - 3.3 K/cumm Monocyte abs 0.3 0.2 - 0.8 K/cumm Eosinophil abs 0.1 0.0 - 0.5 K/cumm Basophil abs 0.0 0.0 - 0.1 K/cumm Neutrophil pct 52.7 % Imm gran pct 0.4 % Lymphocyte pct 36.4 % Monocyte pct 7.2 % Eosinophil pct 2.9 % Basophil pct 0.4 % eGFR Collection Time: 06/06/21 4:16 PM Result Value Ref Range eGFR >90 (H) 90 - 130 mL/min/1.73 m2 Hemoglobin A1c Collection Time: 06/06/21 4:16 PM Result Value Ref Range Hgb A1C 9.9 (H) 4.0 - 5.6 % Estimated Average Glucose 237 mg/dL POCT glucose Collection Time: 06/06/21 4:45 PM Result Value Ref Range Glucose, POC 422 (H) 70 - 199 mg/dL POCT glucose Collection Time: 06/06/21 6:18 PM Result Value Ref Range Glucose, POC 237 (H) 70 - 199 mg/dL Basic metabolic panel Collection Time: 06/06/21 8:41 PM Result Value Ref Range Sodium 137 135 - 145 mmol/L Potassium, pl See Comment 3.3 - 4.9 mmol/L Chloride 101 97 - 110 mmol/L CO2 20 (L) 22 - 32 mmol/L Anion gap 16 (H) 2 - 15 mmol/L BUN 13 8 - 25 mg/dL Creatinine 0.41 (L) 0.80 - 1.30 mg/dL Glucose 145 70 - 199 mg/dL Calcium 9.0 8.5 - 10.3 mg/dL eGFR Collection Time: 06/06/21 8:41 PM Result Value Ref Range eGFR >90 (H) 90 - 130 mL/min/1.73 m2 POCT glucose Collection Time: 06/06/21 8:45 PM Result Value Ref Range Glucose, POC 169 70 - 199 mg/dL POCT glucose Collection Time: 06/06/21 10:52 PM Result Value Ref Range Glucose, POC 208 (H) 70 - 199 mg/dL POCT glucose Collection Time: 06/07/21 1:41 AM Result Value Ref Range Glucose, POC 212 (H) 70 - 199 mg/dL POCT glucose Collection Time: 06/07/21 3:56 AM Result Value Ref Range Glucose, POC 374 (H) 70 - 199 mg/dL POCT glucose Collection Time: 06/07/21 4:03 AM Result Value Ref Range Glucose, POC 283 (H) 70 - 199 mg/dL POCT glucose Collection Time: 06/07/21 8:18 AM Result Value Ref Range Glucose, POC 291 (H) 70 - 199 mg/dL Basic metabolic panel Collection Time: 06/07/21 11:31 AM Result Value Ref Range Sodium 131 (L) 135 - 145 mmol/L Potassium, pl See Comment 3.3 - 4.9 mmol/L Chloride 97 97 - 110 mmol/L CO2 23 22 - 32 mmol/L Anion gap 11 2 - 15 mmol/L BUN 11 8 - 25 mg/dL Creatinine 0.66 (L) 0.80 - 1.30 mg/dL Glucose 306 (H) 70 - 199 mg/dL Calcium 8.8 8.5 - 10.3 mg/dL eGFR Collection Time: 06/07/21 11:31 AM Result Value Ref Range eGFR >90 (H) 90 - 130 mL/min/1.73 m2 POCT glucose Collection Time: 06/07/21 12:00 PM Result Value Ref Range Glucose, POC 303 (H) 70 - 199 mg/dL I have reviewed the laboratory results. Imaging Results: XR Chest 1 View Narrative: EXAMINATION: 1 view chest radiograph Impression: Comparison to 01/14/2020. Small lung volumes. No focal consolidation, pleural effusion, or pneumothorax. Normal cardiomediastinal silhouette accounting for small lung volumes. Electronically signed by: Miah Fisher M.D. I have independently reviewed and interpreted pt's laboratory data Assessment/Plan #Hx Type 2 DM; DKA Patient presented with DKA, unclear cause at this time. Rapid improvement in blood sugar on SubQ insulin protocol for low risk DKA. Patient reports his current home regimen is U500 150 units tid and lispro 24 units with meals - repeat BMP showing AG has improved but slightly high at 16. Repeat currently pending. Given lantus 100 units overnight. - Cont lantus 100 units bid and lispro 20 units with meals +SSI for now, pending Diabetes Service recs #Essential HTN Patient reports taking coreg 25 mg bid and lisinopril 20 mg at home. However recent chart review show lisinopril 40 was prescribed but has . - Continue coreg 25 bid and lisinopril 20 mg for now #Mood disorder -Cont duloxetine as per home dose Cosigned by Enrique Baker MD at 06/07/2021 3:40 PM OFFICE MACHINE PUNCH OPERATOR CE MACHINE PUNCH OPERATOR CE MACHINE PUNCH OPERATOR Associated attestation - Enrique Baker MD - 06/07/2021 3:40 PM OFFICE MACHINE PUNCH OPERATOR I have seen and examined the patient on 06/07/21 in conjunction with the non- physician provider. History: Feels back to b/l. Notes b/l sugars 180s-300s despite takign in insulin and metformin. Physical Exam: NAD, s nt nd Lab/Radiology/Diagnostics Review: reviewed, gap resolved Assessment/Plan 1) Dm2 uncontrolled with DKA - on higher dose U500 and lispro with meals at home; suspect some dietary/insulin compliance issues as well as just extreme insulin resistance - will d/w endo, given DKA resolved anticipate likely ok for d/c home with endo f/u with possibly adjusted regimen * Anna Low RN - 06/07/2021 9:17 AM CST CM Initial Assessment Interview Note Information Obtained From: Patient (06/07/21905) Admission Source: non health care origin Impression: Admitted with hyperglycemia. Plan Includes: Patient plans to return home once medically stable. Primary Source of Transportation: Does the patient need discharge transport arranged?: No (car-drove self) (06/07/21905) Health Insurance Coverage: BCBS Prescription Coverage: yes Pharmacy: [id number] Primary Care Provider: verified [facility]. Follow up appt requested in [facility]. Jann Burrows MD Prior to Admission: Primary Caregiver: Self Support System: Parent Support system contact info (name, phone, availablity): Ivy Velez [phone] Home Care Services: No Durable Medical Equipment: None Living Arrangements: Spouse/significant other Type of Residence: Apartment Medication management: (patient manages his own medications) (06/07/21905) Potential discharge needs include: none at this time Dialysis: n/a Behavioral Health Services: Behavioral Health Services: No (06/07/21905) Patient expects to be Discharged to: Private residence, (06/07/21905) Additional Information: Address and phone number verified with face sheet. Patient lives in apartment with tyler. 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 Denies DME or home health prior to admission. Role of CM explained. Patient's Identified Problem/Goal Problem: Ensure acute medical [...] Collaboration with patient, MD, direct care nurse, System Administration Manager, Nurse Coordinator and other members of the health care team to assure needed interventions completed. 2. Return patient to optimal level of self-care post discharge. 3. Brood Station Manager will follow for Discharge Planning - interventions as needed 4. Anticipated level of care at discharge 5. Planned Discharge Disposition Based on a comprehensive family assessment, assistance with instrumental activities of daily livingafter discharge will be provided by tyler. Through the course of our work I determined that the motherAnna possesses the skill and ability toprovide and monitor the care of the patient when he or she returns home. mother has the capacity toprovide/monitor/arrange for the care of the patient. Finally, we determined that mother has the knowledge of available resources and that combining them with their existing resources will suffice to sustain and care for the patient when he or she returns home. The treatment team is aware of this information. All are in agreement with the aftercare plan. Anna Low RN For emergency needs from 4:31p.m. - 7:59a.m., please call the strand forming machine operator [phone]. For weekend/holiday needs from 8:00a.m. - 4:30p.m., please call the Weekend Brood Station Manager . CE MACHINE PUNCH OPERATOR documented in this encounter H&P Notes * Sasha Rivas MD - 06/07/2021 1:08 AM CST History and Physical Division of [facility] Medicine Name: Geraldo Velez Today: June 07, 2021 : 1995 Age: 25 y.o. male Subjective Mr. Velez is a 25 y.o. male with chief complaint of nausea/vomiting. HPI: Patient is a 25 yo M with a history of T2DM who presented with nausea/vomiting. History was obtained from patient and chart review. Patient reports that he started having nausea/vomiting the night before coming to the hospital. He originally went to an urgent care but was sent to the ED for hyperglycemia. He also reported a Temp of 100F but denied fever, chills, nightsweats. He also denies cough, chest pain, sob, abdominal pain, or diarrhea. He denies any other complaints. He reports he has been taking his insulin as prescribed. He reports his current prescription is U500 150 units tid and lispro 24 units with meals. In the ED: VS significant for afebrile, P 104 Labs significant for AG 20, CO2 19, glucose 535 CXR without pneumonia Patient was started on subq insulin protocol for low risk DKA with improvement in his blood sugar to <200, repeat BMP pending at time of transfer Past Medical History: Diagnosis Date ??? Anxiety ??? Depression ??? Diabetes mellitus (HCC) ??? Disordered sleep 10/13/2017 ??? HTN (hypertension) ??? Metabolic syndrome ??? Morbid obesity with BMI of 50.0-59.9, adult (CMS/HCC) (HCC) 07/10/2017 ??? Pneumonia due to COVID-19 virus 01/15/2020 No past surgical history on file. No current facility-administered medications on file prior to encounter. Current Outpatient Medications on File Prior to Encounter Medication Sig ??? atorvastatin (LIPITOR) 20 mg tablet Take 1 tablet (20 mg total) by mouth daily ??? blood glucose diagnostic (glucose blood) strip Check blood sugar 4-5 times a day or as directedusing one touch verio ??? blood-glucose meter kit 1 kit once for 1 dose Patient needs in room for diabetes education ??? carvediloL (COREG) 25 mg tablet Take 1 tablet (25 mg total) by mouth 2 (two) times a day with meals ??? DULoxetine DR (CYMBALTA) 60 mg capsule Take 1 capsule (60 mg total) by mouth daily ??? glucagon 1 mg injection ??? HumuLIN R U-500, Conc, Kwikpen 500 unit/mL (3 mL) CONCENTRATED injection ??? insulin lispro (HumaLOG, ADMELOG) 100 unit/mL insulin pen Inject 10 Units under the skin 3 (three) times a day with meals ??? insulin regular U-500 (HumuLIN R U-500) 500 unit/mL CONCENTRATED injection Inject 95 Units under the skin 3 (three) times a day ??? lisinopriL (PRINIVIL,ZESTRIL) 40 mg tablet Take 1 tablet (40 mg total) by mouth daily ??? metFORMIN (GLUCOPHAGE) 500 mg tablet Take 2 tablets (1,000 mg total) by mouth 2 (two) times a day with meals ??? mupirocin (BACTROBAN) 2 % ointment Apply topically 3 (three) times a day ??? NovoLOG Flexpen U-100 Insulin 100 unit/mL (3 mL) insulin pen ??? pen needle, diabetic (BD Ultra-Fine Ibeth Pen Needle) 32 gauge x 5/32 needle Use to inject insulin BG three times a day as instructed ??? pen needle, diabetic (BD Ultra-Fine Ibeth Pen Needle) 32 gauge x 5/32 needle USE DIRECTED 3 TIMES A DAY No Known Allergies Social History Tobacco Use ??? Smoking status: Never Smoker ??? Smokeless tobacco: Former User Types: Chew Substance Use Topics ??? Alcohol use: Not Currently Family History Problem Relation Age of Onset ??? Diabetes Mother Family history of diabetes mellitus - (Added by TW Conv) ??? Obesity Mother Family History reviewed and non-contributory. Review of Systems All other systems were reviewed and are negative except for that which is listed in the History of Present Illness. Objective Vitals: 24hr Min/Max: Temp Min: 36.5 ??C (97.7 ??F) Max: 36.7 ??C (98.1 ??F) Pulse Min: 85 Max: 104 BP Min: 120/71 Max: 168/100 Resp Min: 13 Max: 27 SpO2 Min: 94 % Max: 98 % Most Recent Vitals: Vitals: 06/06/210 BP: 161/86 Pulse: 89 Resp: 18 Temp: 36.5 ??C (97.7 ??F) SpO2: 98% Intake/Output Summary (Last 24 hours) at 06/07/2021 0118 Last data filed at 06/06/2021 1503 Gross per 24 hour Intake 2000 ml Output -- Net 2000 ml Physical Exam Gen: wd/wn, in nad HEENT: nc/at, eomi, anicteric sclera Cardiac: RRR, normal s1/s2, no m/r/g Pulm: CTAB, no c/r/w Abd: soft, nt/nd, normoactive bs Ext: no c/c/e Skin: no visible rashes MSK: normal bulk and tone Neuro: A&Ox4, Boom Boss 3-12 grossly intact, no focal neuro deficit Psych: normal mood and affect Lab/Diagnostic Review: Recent Results (from the past 36 hour(s)) POCT glucose Collection Time: 06/06/21 11:50 AM Result Value Ref Range Glucose, POC 535 (Critical) 70 - 199 mg/dL Glucose comment 1 RN Notified POCT ketone Collection Time: 06/06/21 11:52 AM Result Value Ref Range Ketones, Blood, POC 2.4 (A) 0.1 - 0.5 mmol/L Influenza A/B, RSV, and COVID-19 PCR Nasopharyngeal Collection Time: 06/06/21 12:24 PM Specimen: Nasopharyngeal Result Value Ref Range COVID-19 RNA Negative Negative Influenza A RNA Negative Negative Influenza B RNA Negative Negative RSV RNA Negative Negative First COVID-19 test? No Employeed in healthcare? No Group care resident? No Hospitalized? No Is patient in ICU? No Symptomatic as defined by CDC? No CBC with auto differential Collection Time: 06/06/21 12:24 PM Result Value Ref Range WBC 4.0 3.8 - 9.9 K/cumm Hgb See Comment 13.0 - 17.5 g/dL Hct 44.7 38.9 - 50.3 % Plt 327 150 - 400 K/cumm MPV 10.9 9.1 - 12.3 fL RBC 5.33 4.30 - 5.80 M/cumm MCV 83.9 81.3 - 96.4 fL MCH See Comment 27.1 - 33.3 pg MCHC See Comment 32.3 - 35.7 g/dL RDW CV 16.6 (H) 11.1 - 14.9 % RDW SD 42.8 35.7 - 48.1 fL NRBC abs 0.03 (H) 0.00 - 0.01 K/cumm Blood gas, venous Collection Time: 06/06/21 12:24 PM Result Value Ref Range pH, Venous 7.33 7.32 - 7.43 PCO2, Venous 36 (L) 40 - 50 mmHg PO2, Venous 66 mmHg HCO3 Venous, Calculated 20 20 - 30 mmol/L BE, venous -6 mmol/L Differential, auto Collection Time: 06/06/21 12:24 PM Result Value Ref Range Neutrophil abs 2.9 1.7 - 6.5 K/cumm Imm gran abs 0.0 0.0 - 0.1 K/cumm Lymphocyte abs 1.6 0.8 - 3.3 K/cumm Monocyte abs 0.4 0.2 - 0.8 K/cumm Eosinophil abs 0.1 0.0 - 0.5 K/cumm Basophil abs 0.0 0.0 - 0.1 K/cumm Neutrophil pct 57.2 % Imm gran pct 0.6 % Lymphocyte pct 31.0 % Monocyte pct 7.6 % Eosinophil pct 2.8 % Basophil pct 0.8 % POCT glucose Collection Time: 06/06/21 1:16 PM Result Value Ref Range Glucose, POC >600 (Critical) 70 - 199 mg/dL Glucose comment 1 RN Notified POCT glucose Collection Time: 06/06/21 1:58 PM Result Value Ref Range Glucose, POC 585 (Critical) 70 - 199 mg/dL Glucose comment 1 RN Notified Urinalysis reflex to microscopic Collection Time: 06/06/21 2:00 PM Result Value Ref Range Color, ur Straw Yellow Clarity, ur Clear Clear Specific gravity, ur 1.033 (H) 1.003 - 1.030 pH, urine 6 Protein, ur ql 1+ (A) Negative Glucose, ur ql 4+ (A) Negative Ketones, ur 3+ (A) Negative Bilirubin, ur Negative Negative Blood, ur Negative Negative Urobilinogen, ur <2.0 <2.0 mg/dL Nitrite, ur Negative Negative Leukocyte esterase, ur Negative Negative UA reflex comment Reflex to microscopic UA will be performed. Comprehensive metabolic panel Collection Time: 06/06/21 2:00 PM Result Value Ref Range Sodium See Comment 135 - 145 mmol/L Potassium, pl See Comment 3.3 - 4.9 mmol/L Chloride See Comment 97 - 110 mmol/L CO2 See Comment 22 - 32 mmol/L Anion gap See Comment 2 - 15 mmol/L BUN See Comment 8 - 25 mg/dL Creatinine See Comment 0.80 - 1.30 mg/dL Glucose See Comment 70 - 199 mg/dL Calcium See Comment 8.5 - 10.3 mg/dL Bilirubin, total See Comment 0.1 - 1.2 mg/dL Protein, pl See Comment 6.5 - 8.5 g/dL Albumin See Comment 3.5 - 5.0 g/dL Alk phos See Comment 40 - 130 Units/L ALT See Comment 7 - 55 Units/L AST See Comment 10 - 50 Units/L Lipase Collection Time: 06/06/21 2:00 PM Result Value Ref Range Lipase See Comment 10 - 99 Units/L CBC with auto differential Collection Time: 06/06/21 2:00 PM Result Value Ref Range WBC 4.7 3.8 - 9.9 K/cumm Hgb See Comment 13.0 - 17.5 g/dL Hct See Comment 38.9 - 50.3 % Plt 309 150 - 400 K/cumm MPV 10.8 9.1 - 12.3 fL RBC See Comment 4.30 - 5.80 M/cumm MCV See Comment 81.3 - 96.4 fL MCH See Comment 27.1 - 33.3 pg MCHC See Comment 32.3 - 35.7 g/dL RDW CV #SN 11.1 - 14.9 % RDW SD #SN 35.7 - 48.1 fL NRBC abs 0.04 (H) 0.00 - 0.01 K/cumm Magnesium Collection Time: 06/06/21 2:00 PM Result Value Ref Range Magnesium See Comment 1.4 - 2.5 mg/dL Differential, auto Collection Time: 06/06/21 2:00 PM Result Value Ref Range Neutrophil abs 2.7 1.7 - 6.5 K/cumm Imm gran abs 0.0 0.0 - 0.1 K/cumm Lymphocyte abs 1.5 0.8 - 3.3 K/cumm Monocyte abs 0.4 0.2 - 0.8 K/cumm Eosinophil abs 0.2 0.0 - 0.5 K/cumm Basophil abs 0.0 0.0 - 0.1 K/cumm Neutrophil pct 57.5 % Imm gran pct 0.4 % Lymphocyte pct 31.1 % Monocyte pct 7.4 % Eosinophil pct 3.2 % Basophil pct 0.4 % Urinalysis, microscopic only Collection Time: 06/06/21 2:00 PM Result Value Ref Range WBC, ur 0-5 0 - 5 /HPF RBC, ur 0-2 0 - 2 /HPF Epithelial cells, squamous, ur 1-5 0 - 5 /HPF eGFR Collection Time: 06/06/21 2:00 PM Result Value Ref Range eGFR See Comment 90 - 130 POCT glucose Collection Time: 06/06/21 2:59 PM Result Value Ref Range Glucose, POC 572 (Critical) 70 - 199 mg/dL Glucose comment 1 RN Notified Comprehensive metabolic panel Collection Time: 06/06/21 4:16 PM Result Value Ref Range Sodium 136 135 - 145 mmol/L Potassium, pl 3.7 3.3 - 4.9 mmol/L Chloride 97 97 - 110 mmol/L CO2 19 (L) 22 - 32 mmol/L Anion gap 20 (H) 2 - 15 mmol/L BUN 15 8 - 25 mg/dL Creatinine 0.73 (L) 0.80 - 1.30 mg/dL Glucose 426 (H) 70 - 199 mg/dL Calcium 9.6 8.5 - 10.3 mg/dL Bilirubin, total 0.3 0.1 - 1.2 mg/dL Protein, pl 7.1 6.5 - 8.5 g/dL Albumin 4.3 3.5 - 5.0 g/dL Alk phos 152 (H) 40 - 130 Units/L ALT 40 7 - 55 Units/L AST 18 10 - 50 Units/L Magnesium Collection Time: 06/06/21 4:16 PM Result Value Ref Range Magnesium 1.7 1.4 - 2.5 mg/dL Potassium, whole blood Collection Time: 06/06/21 4:16 PM Result Value Ref Range Potassium, bld 3.9 3.3 - 4.9 mmol/L CBC with auto differential Collection Time: 06/06/21 4:16 PM Result Value Ref Range WBC 4.8 3.8 - 9.9 K/cumm Hgb See Comment 13.0 - 17.5 Hct See Comment 38.9 - 50.3 Plt 290 150 - 400 K/cumm MPV 10.2 9.1 - 12.3 fL RBC See Comment 4.30 - 5.80 MCV See Comment 81.3 - 96.4 MCH See Comment 27.1 - 33.3 MCHC See Comment 32.3 - 35.7 RDW CV 13.1 11.1 - 14.9 % RDW SD 37.2 35.7 - 48.1 fL NRBC abs 0.00 0.00 - 0.01 K/cumm Lipase Collection Time: 06/06/21 4:16 PM Result Value Ref Range Lipase 36 10 - 99 Units/L Differential, auto Collection Time: 06/06/21 4:16 PM Result Value Ref Range Neutrophil abs 2.5 1.7 - 6.5 K/cumm Imm gran abs 0.0 0.0 - 0.1 K/cumm Lymphocyte abs 1.7 0.8 - 3.3 K/cumm Monocyte abs 0.3 0.2 - 0.8 K/cumm Eosinophil abs 0.1 0.0 - 0.5 K/cumm Basophil abs 0.0 0.0 - 0.1 K/cumm Neutrophil pct 52.7 % Imm gran pct 0.4 % Lymphocyte pct 36.4 % Monocyte pct 7.2 % Eosinophil pct 2.9 % Basophil pct 0.4 % eGFR Collection Time: 06/06/21 4:16 PM Result Value Ref Range eGFR >90 (H) 90 - 130 mL/min/1.73 m2 Hemoglobin A1c Collection Time: 06/06/21 4:16 PM Result Value Ref Range Hgb A1C 9.9 (H) 4.0 - 5.6 % Estimated Average Glucose 237 mg/dL POCT glucose Collection Time: 06/06/21 4:45 PM Result Value Ref Range Glucose, POC 422 (H) 70 - 199 mg/dL POCT glucose Collection Time: 06/06/21 6:18 PM Result Value Ref Range Glucose, POC 237 (H) 70 - 199 mg/dL Basic metabolic panel Collection Time: 06/06/21 8:41 PM Result Value Ref Range Sodium 137 135 - 145 mmol/L Potassium, pl See Comment 3.3 - 4.9 mmol/L Chloride 101 97 - 110 mmol/L CO2 20 (L) 22 - 32 mmol/L Anion gap 16 (H) 2 - 15 mmol/L BUN 13 8 - 25 mg/dL Creatinine 0.41 (L) 0.80 - 1.30 mg/dL Glucose 145 70 - 199 mg/dL Calcium 9.0 8.5 - 10.3 mg/dL eGFR Collection Time: 06/06/21 8:41 PM Result Value Ref Range eGFR >90 (H) 90 - 130 mL/min/1.73 m2 POCT glucose Collection Time: 06/06/21 8:45 PM Result Value Ref Range Glucose, POC 169 70 - 199 mg/dL POCT glucose Collection Time: 06/06/21 10:52 PM Result Value Ref Range Glucose, POC 208 (H) 70 - 199 mg/dL I have reviewed the laboratory results. Imaging Results: XR Chest 1 View Narrative: EXAMINATION: 1 view chest radiograph Impression: Comparison to 01/14/2020. Small lung volumes. No focal consolidation, pleural effusion, or pneumothorax. Normal cardiomediastinal silhouette accounting for small lung volumes. Electronically signed by: Miah Fisher M.D. I have independently reviewed and interpreted. Assessment and Plan Diabetic ketoacidosis without coma associated with type 2 diabetes mellitus ([facility]) ([facility]) Assessment & Plan Patient presented with DKA, unclear cause at [...] endocrine consult for difficult to control T2DM Mood disorder (CMS/[facility]) ([facility]) Assessment & Plan Continue home duloxetine Essential hypertension Assessment & Plan Patient reports taking coreg 25 mg bid and lisinopril 20 mg at home. However recent chart review show lisinopril 40 was prescribed but has . - will continue coreg 25 bid and lisinopril 20 mg for now CE MACHINE PUNCH OPERATOR documented in this encounter Consult Notes * Flor Ontiveros MD - 06/07/2021 8:31 AM CSTAssociated Order(s): CONSULT TO ENDOCRINOLOGY DIABETES Endocrinology / Diabetes Consult Note Patient: Geraldo Velez, 25 y.o. male (: 1995) Room: [place] [id number] ( ) LOS: 0 Reason for Consult: Type 2 Diabetes (Requesting Provider: Enrique Baker,*) HPI Geraldo Velez is a 25 y.o. male who presents with Type 2 Diabetes. He is currently hospitalized for DKA. Unclear what triggered the episode, he did have a mild fever last week and nausea/vomiting overnight so may have had a mild viral illness however all testing here was negative. He reports that his blood sugars have been running 180-290 at home and he has not missed any doses of insulin. Initial labs with AG 20, CO2 19, glucose 535. Admitted to hospitalist service on SQUID protocol. Taking his insulin as prescribed. ?? Diagnosed in 2018 when he came in in DKA, discharged on total daily dose of 270 units at that time.Last endocrine appt with Dr. Styles in October 2020. ?? Home regimen: U500 150 units tid and lispro 24 units with meals ?? Current regimen: Lantus 100 units BID, Lispro 20 units TIDAC, and insulin resistant SSI ?? Since last night, has had BGs 169-374. Last BMP at 8 PM last night with AG down to 16 from 20. Blood sugars & A1c are: Recent Labs Lab Units 06/07/21 0818 06/07/21 0403 06/07/21 0356 06/07/21 0141 06/06/21 2252 06/06/21 2045 06/06/21 2041 06/06/21 1818 06/06/21 1645 06/06/21 1616 GLUCOSE mg/dL -- -- -- -- -- -- 145 -- -- 426* POC GLUCOSE MONITOR mg/dL 291* 283* 374* 212* 208* 169 -- 237* 422* -- Lab Results Component Value Date HGBA1C 9.9 (H) 06/06/2021 PMH / PSH Past Medical History: Diagnosis Date ??? Anxiety ??? Depression ??? Diabetes mellitus (HCC) ??? Disordered sleep 10/13/2017 ??? HTN (hypertension) ??? Metabolic syndrome ??? Morbid obesity with BMI of 50.0-59.9, adult (CMS/HCC) (HCC) 07/10/2017 ??? Pneumonia due to COVID-19 virus 01/15/2020 No past surgical history on file. Social & Family History Social History Tobacco Use ??? Smoking status: Never Smoker ??? Smokeless tobacco: Former User Types: Chew Vaping Use ??? Vaping Use: Never used Substance and Sexual Activity ??? Alcohol use: Not Currently ??? Drug use: No ??? Sexual activity: Defer Family History Problem Relation Age of Onset ??? Diabetes Mother Family history of diabetes mellitus - (Added by TW Conv) ??? Obesity Mother Review of Systems Twelve point ROS reviewed and negative except as noted in HPI. All other systems negative. Vitals & Physical Exam Temp: [36.4 ??C (97.52 ??F)-36.7 ??C (98.1 ??F)] 36.4 ??C (97.52 ??F) Pulse: [75-95] 75 BP: (144-166)/(67-104) 166/67 Resp: [18] 18 SpO2: [95 %-98 %] 95 % Body mass index is 43.82 kg/m??. No intake/output data recorded. Physical Exam Constitutional: Appearance: Normal appearance. HENT: Head: Normocephalic and atraumatic. Cardiovascular: Rate and Rhythm: Normal rate and regular rhythm. Pulmonary: Effort: Pulmonary effort is normal. Breath sounds: Normal breath sounds. Abdominal: General: There is no distension. Palpations: Abdomen is soft. Tenderness: There is no abdominal tenderness. Neurological: General: No focal deficit present. Mental Status: He is alert and oriented to person, place, and time. Psychiatric: Mood and Affect: Mood normal. Behavior: Behavior normal. Data Medications, labs, imaging, and diagnostics independently reviewed in [facility] and commented on below. Allergies: Patient has no known allergies. HOME MEDICATIONS : atorvastatin (LIPITOR) 20 mg tablet blood glucose diagnostic (glucose blood) strip blood-glucose meter kit carvediloL (COREG) [address] (CYMBALTA) 60 mg capsule glucagon 1 mg injection HumuLIN R U-500, Conc, Kwikpen 500 unit/mL (3 mL) CONCENTRATED injection insulin lispro (HumaLOG, ADMELOG) 100 unit/mL insulin pen insulin regular U-500 (HumuLIN R U-500) 500 unit/mL CONCENTRATED injection lisinopriL (PRINIVIL,ZESTRIL) 40 mg tablet metFORMIN (GLUCOPHAGE) 500 mg tablet mupirocin (BACTROBAN) 2 % ointment NovoLOG Flexpen U-100 Insulin 100 unit/mL (3 mL) insulin pen pen needle, diabetic (BD Ultra-Fine Ibeth Pen Needle) 32 gauge x 5/32 needle pen needle, diabetic (BD Ultra-Fine Ibeth Pen Needle) 32 gauge x 5/32 needle Chemistry Lab Results Component Value Date SODIUM 137 06/06/2021 POTASSIUM See Comment 06/06/2021 CHLORIDE 101 06/06/2021 CO2 20 (L) 06/06/2021 ANIONGAP 16 (H) 06/06/2021 BUNSER 13 06/06/2021 CREATININE 0.41 (L) 06/06/2021 GLUCOSE 291 (H) 06/07/2021 CALCIUM 9.0 06/06/2021 BILITOT 0.3 06/06/2021 ALBUMIN 4.3 06/06/2021 GFRNAA >90 (H) 06/06/2021 ALKPHOS 152 (H) 06/06/2021 AST 18 06/06/2021 ALT 40 06/06/2021 PHOS 3.9 01/17/2020 MAGNESIUM 1.7 06/06/2021 Lab Results Component Value Date HGBA1C 9.9 (H) 06/06/2021 Lab Results Component Value Date TSH 1.54 12/31/2019 Lab Results Component Value Date CHOL 194 10/13/2020 TRIG 245 (H) 10/13/2020 HDL 34 (L) 10/13/2020 LDLCALC 111 10/13/2020 LDLDIRECT 41 06/02/2020 Lab Results Component Value Date 25HYDROVITD 16 (L) 09/06/2017 CPEPTIDE 11.2 (H) 12/31/2019 LZI89YB 0.00 03/04/2019 Assessment & Plan Geraldo Velez is a 25 y.o. male who presents with Type 2 Diabetes. He is currently hospitalized for DKA. #Type 2 Diabetes - a1c 9.9% this admission, was 5.6% in October 2020 - Home regimen: U500 150 units tid and lispro 24 units with meals - Current regimen: Lantus 100 units BID, Lispro 20 units TIDAC, and insulin resistant SSI ??- Since last night, has had BGs 169-374. Last BMP at 8 PM last night with AG down to 16 from 20 Recommendations: - Continue Lantus 100 units BID + Lispro 20 units TIDAC + insulin resistant SSI Thank you for allowing us to participate in the care of this patient. Recommendations have been discussed with the primary team. We will continue to follow. Please call the Diabetes Consult with any questions. Flor Ontiveros MD Cosigned by Peter Styles Jr., MD at 06/07/2021 1:31 PM OFFICE MACHINE PUNCH OPERATOR CE MACHINE PUNCH OPERATOR CE MACHINE PUNCH OPERATOR Associated attestation - Peter Styles Jr., MD - 06/07/2021 1:31 PM OFFICE MACHINE PUNCH OPERATOR I have seen and examined the patient on 06/07/21. I agree with the findings and plan of care as documented in the resident's/fellow's note. documented in this encounter Nursing Notes * Sonia Lomax, RN - 06/06/2021 11:57 PM CST 2337- Called MD to inquire the need for Lantus and sliding scale nightly lispro while patient is onSQUID PROTOCOL.MD response -give Lantus now,hold sliding dose of nightly lispro ,recheck BG/ BMP in2hrs post lantus ,THEN will review the protocol and diet orders then. CE MACHINE PUNCH OPERATOR documented in this encounter ED Notes * Magno Nuñez MD - 06/06/2021 12:08 PM CST HPI Chief Complaint Patient presents with ??? Hyperglycemia HPI 25-year-old known diabetic on insulin presenting for high blood sugar from urgent care. He 1st noticed this yesterday. Overnight had some nausea and vomiting which he denies now. States he had a temperature of about 100 yesterday however no other fevers or infectious symptoms. No urinary symptoms. States that he is on both long and short-acting insulin which she has been taking as prescribed and he is sure he has not missed any doses or mix the month. Follows with [facility] endocrinology. Patient History: Patient Active Problem List Diagnosis Date Noted ??? Sleep disturbance 12/25/2019 ??? Mood disorder (CMS/HCC) ([facility]) 12/25/2019 ??? Acanthosis nigricans 03/19/2019 ??? Type 2 diabetes mellitus without complication, with long-term current use of insulin (CMS/HCC) ([facility]) 03/19/2019 ??? Fatty liver 10/13/2017 ??? Morbid obesity with BMI of 50.0-59.9, adult (CMS/HCC) ([facility]) 07/10/2017 ??? Asymmetric septal hypertrophy (CMS/HCC) ([facility]) 02/10/2016 ??? Essential hypertension 03/16/2010 Past Medical History: Diagnosis Date ??? Anxiety ??? Depression ??? Diabetes mellitus (HCC) ??? Disordered sleep 10/13/2017 ??? HTN (hypertension) ??? Metabolic syndrome ??? Morbid obesity with BMI of 50.0-59.9, adult (CMS/HCC) ([facility]) 07/10/2017 ??? Pneumonia due to COVID-19 virus 01/15/2020 No past surgical history on file. Family History Problem Relation Age of Onset ??? Diabetes Mother Family history of diabetes mellitus - (Added by TW Conv) ??? Obesity Mother Social History Tobacco Use ??? Smoking status: Never Smoker ??? Smokeless tobacco: Former User Types: Chew Vaping Use ??? Vaping Use: Never used Substance Use Topics ??? Alcohol use: Not Currently ??? Drug use: No Social History Social History Narrative Non-smoker : (Added by TW Conv) Non-smoker : (Added by TW Conv) Review of Systems Review of Systems Constitutional: Negative for activity change, appetite change and fever. HENT: Negative for congestion and rhinorrhea. Respiratory: Negative for cough and shortness of breath. Cardiovascular: Negative for chest pain and leg swelling. Gastrointestinal: Positive for nausea and vomiting. Negative for abdominal distention, abdominal pain and diarrhea. Genitourinary: Negative for difficulty urinating, dysuria and hematuria. Musculoskeletal: Negative for myalgias. Neurological: Negative for dizziness, facial asymmetry, weakness and light-headedness. Psychiatric/Behavioral: Negative for confusion. Physical Exam ED Triage Vitals [06/06/21 1150] Temp Pulse Resp BP SpO2 36.7 ??C (98.1 ??F) 104 20 158/94 97 % Temp src Heart Rate Source Patient Position BP Location FiO2 (%) -- -- -- -- -- Physical Exam Constitutional: Appearance: Normal appearance. HENT: Head: Normocephalic and atraumatic. Nose: Nose normal. Mouth/Throat: Mouth: Mucous membranes are moist. Eyes: Conjunctiva/sclera: Conjunctivae normal. Pupils: Pupils are equal, round, and reactive to light. Cardiovascular: Rate and Rhythm: Regular rhythm. Tachycardia present. Pulses: Normal pulses. Heart sounds: Normal heart sounds. Pulmonary: Effort: Pulmonary effort is normal. Breath sounds: Normal breath sounds. Abdominal: General: Bowel sounds are normal. There is no distension. Palpations: Abdomen is soft. Tenderness: There is no abdominal tenderness. Skin: General: Skin is warm. Neurological: General: No focal deficit present. Mental Status: He is alert and oriented to person, place, and time. Psychiatric: Mood and Affect: Mood normal. Behavior: Behavior normal. MDM [age] are no diabetic presenting for hyperglycemia. Blood sugar in the 500s on initial checka point of care ketones elevated. A little tachycardic but otherwise hemodynamically stable. Well-appearing on exam. Benign abdomen. Will obtain metabolic workup a basic infectious workup with urinalysis and chest x- ray. Will give a L of LR. Will plan for insulin infusion versus squid protocol based on lab results. Anticipate hospitalization for further diabetes management. MDM Attending Summary of Care ED Course as of 06/06/212126 Time: 06/06 1209 Comment: ED attending assessment: 25-year-old gentleman known diabetic compliant with regiment past 24 hours elevated blood glucose meter reading high at home. Positive nausea vomiting times 12-24 hours. Fever T-max a 100.0?? at home. No URI UTI symptoms. Otherwise patient is compliant with his meds and feels to be in normal state of health. Patient has had DKA in the past. Lab on exam awake alert oriented. No pitting edema peripherally. Moves all 4 extremities spontaneously AAO x4. No abdominal tenderness. Will plan for labs and basic infectious workup as well as hydration possible squid protocol verses insulin drip pending on labs. Consult Endocrine for adjustment of regiment will plan to admit the hospitalist service. By: Charles Andrew MD Time: 06/06 1409 Value: Ketones, ur(!): 3+ Comment: (Reviewed) By: Isidro Orosco MD Time: 06/06 1450 Comment: Patient reassessed, resting comfortably, reports compliance with insulin By: Isidro Orosco MD Time: 06/06 1632 Value: Potassium, bld: 3.9 Comment: (Reviewed) By: Isidro Orosco MD Time: 06/06 1902 Value: Anion gap(!): 20 Comment: (Reviewed) By: Isidro Orosco MD Time: 06/06 1902 Value: Glucose(!): 426 Comment: (Reviewed) By: Isidro Orosco MD Time: 06/06 2001 Comment: Patients care signed out to hospitalist By: Isidro Orosco MD Ketoacidosis due to diabetes ([facility]) ([facility]) Hyperglycemia due to diabetes mellitus ([facility]) ([facility]) Glenn Kerr DO 06/06/21 1300 Magno Nuñez MD 06/06/212126 CE MACHINE PUNCH OPERATOR CE MACHINE PUNCH OPERATOR * Lowell Pollock RN - 06/06/2021 11:48 AM CST States elevated BS x 1 week > 400 Went to PCP and sent to ED for eval States N/V CE MACHINE PUNCH OPERATOR documented in this encounter Miscellaneous Notes * Plan of Care - Genny Sinclair RN - 06/07/2021 3:03 PM CST Goals: Clinical Goals for the Shift: admit &orient pt to the unit,complete admission orders Summary: Problem: Health Behavior: Goal: Understanding of discharge needs will improve Outcome: Progressing CE MACHINE PUNCH OPERATOR * Assessment & Plan Note - Sasha Rivas MD - 06/07/2021 1:17 AM OFFICE MACHINE PUNCH OPERATOR Associated Problem(s): Essential hypertension Patient reports taking coreg 25 mg bid and lisinopril 20 mg at home. However recent chart review show lisinopril 40 was prescribed but has . - Continue coreg 25 bid and lisinopril 20 mg for now CE MACHINE PUNCH OPERATOR CE MACHINE PUNCH OPERATOR * Assessment & Plan Note - Sasha Rivas MD - 06/07/2021 1:16 AM OFFICE MACHINE PUNCH OPERATOR Associated Problem(s): Mood disorder (CMS/HCC) (HCC) Continue home duloxetine CE MACHINE PUNCH OPERATOR * Assessment & Plan Note - Sasha Rivas MD - 06/07/2021 1:14 AM OFFICE MACHINE PUNCH OPERATOR Associated Problem(s): Diabetic ketoacidosis without coma associated with type 2 diabetes mellitus (CMS/HCC) (HCC) Patient presented with DKA, unclear cause at [...] endocrine consult for difficult to control T2DM CE MACHINE PUNCH OPERATOR * Plan of Care - Erinn Oleary RN - 06/06/2021 7:23 PM CST Clinical status reevaluated by ED CM. Pt remains in ED as Boarder. MD order is for OBS level of care, which currently still appears to be appropriate. CE MACHINE PUNCH OPERATOR * ED Re-evaluation Note - Isidro Orosco MD - 06/06/2021 2:13 PM OFFICE MACHINE PUNCH OPERATOR ED Re-evaluation TRANSITION OF CARE: I, Isidro Orosco MD, am taking signout from the off going team under the supervision of my attending physician. I have reviewed all pertinent vital signs, allergies, and history available in the chart. Summary: 25 y.o. male history of hypertension, insulin-dependent diabetes presenting with hyperglycemia with ketosis. Not acidotic. Being treated through the squid protocol. Chest x-ray with clear lungs and COVID-19 negative Pending: [facility] Dispo: 3500 admission ED Course as of 06/06/21 1414 Time: 06/06 1209 Comment: ED attending assessment: 25-year-old gentleman known diabetic compliant with regiment past 24 hours elevated blood glucose meter reading high at home. Positive nausea vomiting times 12-24 hours. Fever T-max a 100.0?? at home. No URI UTI symptoms. Otherwise patient is compliant with his meds and feels to be in normal state of health. Patient has had DKA in the past. Lab on exam awake alert oriented. No pitting edema peripherally. Moves all 4 extremities spontaneously AAO x4. No abdominal tenderness. Will plan for labs and basic infectious workup as well as hydration possible squid protocol verses insulin drip pending on labs. Consult Endocrine for adjustment of regiment will plan to admit the hospitalist service. By: Charles Andrew MD Rees, Ryan Embree, MD Resident 06/06/21 1414 CE MACHINE PUNCH OPERATOR * ED Procedure Note - Charles Andrew MD - 06/06/2021 12:10 PM CSTAssociated Order(s): Critical Care Procedure Critical Care Performed by: Charles Andrew MD Authorized by: Charles Andrew MD Critical care provider statement: As reflected in the history, physical exam, orders, notes, and/or MDM, I was personally present while the patient was critically ill and provided critical care services for approximately 30 minutes, excluding time involved in separately billable procedures. Critical care was necessary to treat or prevent imminent or life-threatening deterioration of the following condition(s): diabetic ketoacidosis Critical care was time spent by me providing the following: resuscitation with fluids, continuous telemetry and continuous pulse oximetry glycemic control I provided emergent necessary critical care medicine services to this patient. I ordered and reviewed test results and/or imaging studies. I spent time documenting in the medical record. I spent timediscussing the management of this critically ill patient with consultants and the medical staff. Charles Andrew MD 06/06/21 1211 CE MACHINE PUNCH OPERATOR * ED Pre-Arrival Note - Eleno Castro RN - 06/06/2021 11:00 AM OFFICE MACHINE PUNCH OPERATOR Pre-Arrival Note AEROSOL SUPERVISOR Josefayahir Valdivia sending patient from [facility] for diabetes management. Pt has hx of DM and is followed at [facility]. Pt presented today to urgent care with BG of 472. Coming by private vehicle. Eleno Castro RN CE MACHINE PUNCH OPERATOR documented in this encounter Plan of Treatment Not on file documented as of this encounter Procedures Procedure Name Priority Date/Time Associated Diagnosis Comments POCT GLUCOSE DEVICE Routine 06/07/2021 1 2:00 PM OFFICE MACHINE PUNCH OPERATOR EGFR STAT 06/07/2021 11:31 AM OFFICE MACHINE PUNCH OPERATOR BASIC METABOLIC PANEL STAT 06/07/2021 11:31 AM OFFICE MACHINE PUNCH OPERATOR POCT GLUCOSE DEVICE Routine 06/07/2021 8 :18 AM OFFICE MACHINE PUNCH OPERATOR POCT GLUCOSE DEVICE Routine 06/07/2021 4 :03 AM OFFICE MACHINE PUNCH OPERATOR POCT GLUCOSE DEVICE Routine 06/07/2021 3 :56 AM OFFICE MACHINE PUNCH OPERATOR POCT GLUCOSE DEVICE Routine 06/07/2021 1 :41 AM OFFICE MACHINE PUNCH OPERATOR POCT GLUCOSE DEVICE Routine 06/06/2021 1 0:52 PM OFFICE MACHINE PUNCH OPERATOR POCT GLUCOSE DEVICE Routine 06/06/2021 8 :45 PM OFFICE MACHINE PUNCH OPERATOR EGFR Timed 06/06/2021 8:41 PM OFFICE MACHINE PUNCH OPERATOR BASIC METABOLIC PANEL Timed 06/06/2021 8:41 PM OFFICE MACHINE PUNCH OPERATOR POCT GLUCOSE DEVICE Routine 06/06/2021 6 :18 PM OFFICE MACHINE PUNCH OPERATOR POCT GLUCOSE DEVICE Routine 06/06/2021 4 :45 PM OFFICE MACHINE PUNCH OPERATOR POTASSIUM, WHOLE BLOOD STAT 06/06/2021 4:16 PM OFFICE MACHINE PUNCH OPERATOR EGFR STAT 06/06/2021 4:16 PM OFFICE MACHINE PUNCH OPERATOR DIFFERENTIAL AUTO STAT 06/06/2021 4:1 6 PM OFFICE MACHINE PUNCH OPERATOR CBC WITH AUTO DIFFERENTIAL STAT 06/06/2021 4:16 PM OFFICE MACHINE PUNCH OPERATOR MAGNESIUM STAT 06/06/2021 4:16 PM OFFICE MACHINE PUNCH OPERATOR LIPASE STAT 06/06/2021 4:16 PM OFFICE MACHINE PUNCH OPERATOR HEMOGLOBIN A1C STAT 06/06/2021 4:16 PM OFFICE MACHINE PUNCH OPERATOR COMPREHENSIVE METABOLIC PANEL STAT 06/06/2021 4:16 PM OFFICE MACHINE PUNCH OPERATOR POCT GLUCOSE DEVICE Routine 06/06/2021 2 :59 PM OFFICE MACHINE PUNCH OPERATOR EGFR STAT 06/06/2021 2:00 PM OFFICE MACHINE PUNCH OPERATOR DIFFERENTIAL AUTO STAT 06/06/2021 2:0 0 PM OFFICE MACHINE PUNCH OPERATOR URINALYSIS AND REFLEX TO MICROSCOPIC STAT 06/06/2021 2:00 PM OFFICE MACHINE PUNCH OPERATOR CBC WITH AUTO DIFFERENTIAL STAT 06/06/2021 2:00 PM OFFICE MACHINE PUNCH OPERATOR URINALYSIS, MICROSCOPIC ONLY STAT 06/06/2021 2:00 PM OFFICE MACHINE PUNCH OPERATOR MAGNESIUM STAT 06/06/2021 2:00 PM OFFICE MACHINE PUNCH OPERATOR LIPASE STAT 06/06/2021 2:00 PM OFFICE MACHINE PUNCH OPERATOR COMPREHENSIVE METABOLIC PANEL STAT 06/06/2021 2:00 PM OFFICE MACHINE PUNCH OPERATOR POCT GLUCOSE DEVICE Routine 06/06/2021 1 :58 PM OFFICE MACHINE PUNCH OPERATOR POCT GLUCOSE DEVICE Routine 06/06/2021 1 :16 PM OFFICE MACHINE PUNCH OPERATOR INFLUENZA A/B, RSV, AND COVID-19 PCR Routine 06/06/2021 12:24 PM OFFICE MACHINE PUNCH OPERATOR DIFFERENTIAL AUTO STAT 06/06/2021 12: 24 PM OFFICE MACHINE PUNCH OPERATOR CBC WITH AUTO DIFFERENTIAL STAT 06/06/2021 12:24 PM OFFICE MACHINE PUNCH OPERATOR BLOOD GAS, VENOUS STAT 06/06/2021 12: 24 PM OFFICE MACHINE PUNCH OPERATOR XR CHEST 1 VIEW ED Urgent/IP Urgent 06/06/2021 12:17 PM OFFICE MACHINE PUNCH OPERATOR PA CRITICAL CARE ILL/INJURED PATIENT INIT 30-74 MIN Routine 06/06/2021 12:10 PM OFFICE MACHINE PUNCH OPERATOR POCT KETONE, FINGERSTICK Routine 06/06/2021 11:52 AM OFFICE MACHINE PUNCH OPERATOR POCT GLUCOSE DEVICE Routine 06/06/2021 1 1:50 AM OFFICE MACHINE PUNCH OPERATOR documented in this encounter Results * (ABNORMAL) POCT glucose (06/07/2021 12:00 PM OFFICE MACHINE PUNCH OPERATOR) Glucose, POC 303(H) 70 - 199 mg/dL [facility] Blood 06/07/2021 12:0 0 PM OFFICE MACHINE PUNCH OPERATOR 06/07/2021 12:00 PM OFFICE MACHINE PUNCH OPERATOR us Enrique Baker MD LAB POCT ORDERABLES - DEVICE Final Result Performing Organization Address [facility]/State[facility] Co de Phone Number [email or web address] [facility] [place] [address] * (ABNORMAL) eGFR (06/07/2021 11:31 AM OFFICE MACHINE PUNCH OPERATOR) eGFR >90(H) 90 - 130 mL/min/1. 73 m2 [facility] Comment: Interpretive Data Reference Interval Normal [...] interpretive data was last reviewed 2021. Blood 06/07/2021 11:3 1 AM OFFICE MACHINE PUNCH OPERATOR 06/07/2021 11:41 AM OFFICE MACHINE PUNCH OPERATOR us Arabella Munoz NP LAB BLOOD ORDERABLES Melina castorena Result [facility] [place] [address] * (ABNORMAL) Basic metabolic panel (06/07/2021 11:31 AM OFFICE MACHINE PUNCH OPERATOR) Sodium 131(L) 135 - 145 mmol/L [facility] Potassium, pl See Comment 3.3 - 4.9 mmol/L [facility] Comment:Credited; Hemolyzed Specimen Chloride 97 97 - 110 mmol/L [facility] CO2 23 22 - 32 mmol/L [facility] Anion gap 11 2 - 15 mmol/L [facility] BUN 11 8 - 25 mg/dL [facility] Creatinine 0.66(L) 0.80 - 1.30 mg/dL [facility] Glucose 306(H) 70 - 199 mg/dL [facility] Comment: Interpretive Data Fasting glucose >/= [...] 2017. Calcium 8.8 8.5 - 10.3 mg/dL [facility] Blood 06/07/2021 11:3 1 AM OFFICE MACHINE PUNCH OPERATOR 06/07/2021 11:41 AM OFFICE MACHINE PUNCH OPERATOR us Arabella Munoz AEROSOL SUPERVISOR LAB BLOOD ORDERABLES Melina l Result Performing Organization Address [facility] Co de Phone Number [facility] [place] [address] * (ABNORMAL) POCT glucose (06/07/2021 8:18 AM OFFICE MACHINE PUNCH OPERATOR) Glucose, POC 291(H) 70 - 199 mg/dL [facility] Blood 06/07/2021 8:18 AM OFFICE MACHINE PUNCH OPERATOR 06/07/2021 8:18 AM OFFICE MACHINE PUNCH OPERATOR Enrique Baker MD LAB POCT ORDERABLES - DEVICE Final Result Performing Organization Address [facility] de Phone Number [facility] [place] [address] * (ABNORMAL) POCT glucose (06/07/2021 4:03 AM OFFICE MACHINE PUNCH OPERATOR) Glucose, POC 283(H) 70 - 199 mg/dL [facility] Blood 06/07/2021 4:03 AM OFFICE MACHINE PUNCH OPERATOR 06/07/2021 4:03 AM OFFICE MACHINE PUNCH OPERATOR us Magno Nuñez MD LAB POCT ORDERABLES - DEVICE F inal Result Performing Organization Address [facility] Co de Phone Number [facility] [place] [address] * (ABNORMAL) POCT glucose (06/07/2021 3:56 AM OFFICE MACHINE PUNCH OPERATOR) Glucose, POC 374(H) 70 - 199 mg/dL [facility] Blood 06/07/2021 3:56 AM OFFICE MACHINE PUNCH OPERATOR 06/07/2021 3:56 AM OFFICE MACHINE PUNCH OPERATOR us Magno Nuñez MD LAB POCT ORDERABLES - DEVICE F inal Result Performing Organization Address [facility] [place] [address] * (ABNORMAL) POCT glucose (06/07/2021 1:41 AM OFFICE MACHINE PUNCH OPERATOR) Glucose, POC 212(H) 70 - 199 mg/dL [facility] Blood 06/07/2021 1:41 AM OFFICE MACHINE PUNCH OPERATOR 06/07/2021 1:41 AM OFFICE MACHINE PUNCH OPERATOR us Magno Nuñez MD LAB POCT ORDERABLES - DEVICE F inal Result Performing Organization Address [facility] [place] [address] * (ABNORMAL) POCT glucose (06/06/2021 10:52 PM OFFICE MACHINE PUNCH OPERATOR) Glucose, POC 208(H) 70 - 199 mg/dL [facility] Blood 06/06/2021 10:5 2 PM OFFICE MACHINE PUNCH OPERATOR 06/06/2021 10:52 PM OFFICE MACHINE PUNCH OPERATOR us Magno Nuñez MD LAB POCT ORDERABLES - DEVICE F inal Result Performing Organization Address [facility] [place] [address] * POCT glucose (06/06/2021 8:45 PM OFFICE MACHINE PUNCH OPERATOR) Glucose, POC 169 70 - 199 mg/dL [facility] Blood 06/06/2021 8:45 PM OFFICE MACHINE PUNCH OPERATOR 06/06/2021 8:45 PM OFFICE MACHINE PUNCH OPERATOR us Magno Nuñez MD LAB POCT ORDERABLES - DEVICE F inal Result Performing Organization Address [facility] Co de Phone Number [facility] [place] [address] * (ABNORMAL) eGFR (06/06/2021 8:41 PM OFFICE MACHINE PUNCH OPERATOR) eGFR >90(H) 90 - 130 mL/min/1. 73 m2 [facility] Comment: Interpretive Data Reference Interval Normal [...] interpretive data was last reviewed 2021. Blood 06/06/2021 8:41 PM OFFICE MACHINE PUNCH OPERATOR 06/06/2021 9:29 PM OFFICE MACHINE PUNCH OPERATOR us Charles Andrew MD LAB BLOOD ORDERABLES Final Re sult Performing Organization Address [facility] Co de Phone Number [facility] [place] [address] * (ABNORMAL) Basic metabolic panel (06/06/2021 8:41 PM OFFICE MACHINE PUNCH OPERATOR) Sodium 137 135 - 145 mmol/L [facility] Comment:After removal of alie ss lipemia. Potassium, pl See Comment 3.3 - 4.9 mmol/L [facility] Comment:Credited; Hemolyzed Specimen Chloride 101 97 - 110 mmol/L [facility] Comment:After removal of alie ss lipemia. CO2 20(L) 22 - 32 mmol/L [facility] Comment:Hemolyzed; result ma y be falsely decreased Anion gap 16(H) 2 - 15 mmol/L [facility] BUN 13 8 - 25 mg/dL [facility] Creatinine 0.41(L) 0.80 - 1.30 mg/dL [facility] Glucose 145 70 - 199 mg/dL [facility] Comment: Interpretive Data Fasting glucose >/= [...] interpretive data was last revised 2017. Calcium 9.0 8.5 - 10.3 mg/dL [facility] Comment:After removal of alie ss lipemia. Blood 06/06/2021 8:41 PM OFFICE MACHINE PUNCH OPERATOR 06/06/2021 9:29 PM OFFICE MACHINE PUNCH OPERATOR Sasha Rivas MD LAB BLOOD ORDERABLES Fin al Result [facility] [place] [address] * (ABNORMAL) POCT glucose (06/06/2021 6:18 PM OFFICE MACHINE PUNCH OPERATOR) Glucose, POC 237(H) 70 - 199 mg/dL [facility] Blood 06/06/2021 6:18 PM OFFICE MACHINE PUNCH OPERATOR 06/06/2021 6:18 PM OFFICE MACHINE PUNCH OPERATOR Charles Andrew MD LAB POCT ORDERABLES - DEVICE Final Result Performing Organization Address [facility] Co de Phone Number [facility] [place] [address] * (ABNORMAL) POCT glucose (06/06/2021 4:45 PM OFFICE MACHINE PUNCH OPERATOR) Glucose, POC 422(H) 70 - 199 mg/dL [facility] Blood 06/06/2021 4:45 PM OFFICE MACHINE PUNCH OPERATOR 06/06/2021 4:45 PM OFFICE MACHINE PUNCH OPERATOR Charles Andrew MD LAB POCT ORDERABLES - DEVICE Final Result Performing Organization Address [facility] [place] [address] * (ABNORMAL) Hemoglobin A1c (06/06/2021 4:16 PM OFFICE MACHINE PUNCH OPERATOR) Hgb A1C 9.9(H) 4.0 - 5.6 % [facility] Estimated Average Glucose 237 mg/dL [facility] Comment: The ADA recommends reporting an estimated Average Glucose (eAG) with all Hemoglobin A1c results using the equation derived from a study of 507 normal and diabetic adults. ??Minority populations were underrepresented and children were not included. ?? (Diabetes Care 2020; 43(S1): S66-S76). ??The eAG is not equivalent to a fasting glucose. Blood 06/06/2021 4:16 PM OFFICE MACHINE PUNCH OPERATOR 06/06/2021 4:25 PM OFFICE MACHINE PUNCH OPERATOR Magno Nuñez MD LAB BLOOD ORDERABLES Final Res ult Performing Organization Address [facility] Co de Phone Number [facility] [place] [address] * (ABNORMAL) eGFR (06/06/2021 4:16 PM OFFICE MACHINE PUNCH OPERATOR) eGFR >90(H) 90 - 130 mL/min/1. 73 m2 [facility] Comment: Interpretive Data Reference Interval Normal [...] interpretive data was last reviewed 2021. Blood 06/06/2021 4:16 PM OFFICE MACHINE PUNCH OPERATOR 06/06/2021 4:21 PM OFFICE MACHINE PUNCH OPERATOR us Magno Nuñez MD LAB BLOOD ORDERABLES Final Res ult [facility] Department [place] [address] * Differential, auto (06/06/2021 4:16 PM OFFICE MACHINE PUNCH OPERATOR) Pathologist [facility] Neutrophil abs 2.5 1.7 - 6.5 K/cumm [facility] Imm gran abs 0.0 0.0 - 0.1 K/cumm [facility] Lymphocyte abs 1.7 0.8 - 3.3 K/cumm [facility] Monocyte abs 0.3 0.2 - 0.8 K/cumm [facility] Eosinophil abs 0.1 0.0 - 0.5 K/cumm [facility] Basophil abs 0.0 0.0 - 0.1 K/cumm [facility] Neutrophil pct 52.7 % [facility] Comment: Interpretive Data Percent cell count reference ranges are not reported, since discordance with absolute values may lead to misinterpretation of CBC data. Current Interpretive Data was last revised on 2017. Imm gran pct 0.4 % [facility] Comment: Interpretive Data Percent cell count reference ranges are not reported, since discordance with absolute values may lead to misinterpretation of CBC data. Current Interpretive Data was last revised on 2017. Lymphocyte pct 36.4 % [facility] Comment: Interpretive Data Percent cell count reference ranges are not reported, since discordance with absolute values may lead to misinterpretation of CBC data. Current Interpretive Data was last revised on 2017. Monocyte pct 7.2 % [facility] Comment: Interpretive Data Percent cell count reference ranges are not reported, since discordance with absolute values may lead to misinterpretation of CBC data. Current Interpretive Data was last revised on 2017. Eosinophil pct 2.9 % [facility] Comment: Interpretive Data Percent cell count reference ranges are not reported, since discordance with absolute values may lead to misinterpretation of CBC data. Current Interpretive Data was last revised on 2017. Basophil pct 0.4 % [facility] Comment: Interpretive Data Percent cell count reference ranges are not reported, since discordance with absolute values may lead to misinterpretation of CBC data. Current Interpretive Data was last revised on 2017. Blood 06/06/2021 4:16 PM OFFICE MACHINE PUNCH OPERATOR 06/06/2021 4:21 PM OFFICE MACHINE PUNCH OPERATOR us Magno Nuñez MD LAB BLOOD ORDERABLES Final Res ult [facility] [place] [address] * Lipase (06/06/2021 4:16 PM OFFICE MACHINE PUNCH OPERATOR) Lipase 36 10 - 99 Units/L [facility] Comment: Code Blue Specimen After removal of gross lipemia. Blood 06/06/2021 4:16 PM OFFICE MACHINE PUNCH OPERATOR 06/06/2021 4:21 PM OFFICE MACHINE PUNCH OPERATOR us Magno Nueñz MD LAB BLOOD ORDERABLES Final Res ult [facility] [place] [address] * CBC with auto differential (06/06/2021 4:16 PM OFFICE MACHINE PUNCH OPERATOR) WBC 4.8 3.8 - 9.9 K/cumm [facility] Comment:Code Blue Specimen Hgb See Comment 13.0 - 17.5 [facility] Comment: Not able to obtain results due to gross Hemolysis / gross Lipemia Removal of results called to Jose PAGE) at 2122 by VAB. Hct See Comment 38.9 - 50.3 [facility] Comment: Not able to obtain results due to gross Hemolysis / gross Lipemia Removal of results called to Jose PAGE) at 2122 by VAB. Plt 290 150 - 400 K/cumm [facility] MPV 10.2 9.1 - 12.3 fL [facility] RBC See Comment 4.30 - 5.80 [facility] Comment: Not able to obtain results due to gross Hemolysis / gross Lipemia Removal of results called to Jose PAGE) at 2122 by MEB. MCV See Comment 81.3 - 96.4 [facility] Comment: Not able to obtain results due to gross Hemolysis / gross Lipemia Removal of results called to Jose PAGE) at 2122 by VAB. MCH See Comment 27.1 - 33.3 [facility] Comment: Not able to obtain results due to gross Hemolysis / gross Lipemia Removal of results called to Jose PAGE) at 2122 by VAB. MCHC See Comment 32.3 - 35.7 [facility] Comment: Not able to obtain results due to gross Hemolysis / gross Lipemia Removal of results called to Jose (BRYANNA) at 2122 by VABrandee. RDW CV 13.1 11.1 - 14.9 % [facility] RDW SD 37.2 35.7 - 48.1 fL [facility] NRBC abs 0.00 0.00 - 0.01 K/cumm [facility] Blood 06/06/2021 4:16 PM OFFICE MACHINE PUNCH OPERATOR 06/06/2021 4:21 PM OFFICE MACHINE PUNCH OPERATOR Magno Nuñez MD LAB BLOOD ORDERABLES Edited Re sult - Final Performing Organization Address [facility]/ZIP Co de Phone Number [facility] [place] [address] * Potassium, whole blood (06/06/2021 4:16 PM OFFICE MACHINE PUNCH OPERATOR) Potassium, bld 3.9 3.3 - 4.9 mmol/L [facility] Comment:Code Blue Specimen Blood 06/06/2021 4:16 PM OFFICE MACHINE PUNCH OPERATOR 06/06/2021 4:21 PM OFFICE MACHINE PUNCH OPERATOR Magno Nuñez MD LAB BLOOD ORDERABLES Final Res ult Performing Organization Address [facility] Co de Phone Number [facility] [place] [address] * Magnesium (06/06/2021 4:16 PM OFFICE MACHINE PUNCH OPERATOR) Magnesium 1.7 1.4 - 2.5 mg/dL [facility] Comment: Code Blue Specimen After removal of gross lipemia. Blood 06/06/2021 4:16 PM OFFICE MACHINE PUNCH OPERATOR 06/06/2021 4:21 PM OFFICE MACHINE PUNCH OPERATOR Magno Nuñez MD LAB BLOOD ORDERABLES Final Res ult Performing Organization Address City/[facility]/ZIP Co de Phone Number [facility] [place] [address] * (ABNORMAL) Comprehensive metabolic panel (06/06/2021 4:16 PM OFFICE MACHINE PUNCH OPERATOR) Sodium 136 135 - 145 mmol/L [facility] Comment: Code Blue Specimen After removal of gross lipemia. Potassium, pl 3.7 3.3 - 4.9 mmol/L [facility] Comment: Code Blue Specimen After removal of gross lipemia. Chloride 97 97 - 110 mmol/L [facility] Comment: Code Blue Specimen After removal of gross lipemia. CO2 19(L) 22 - 32 mmol/L [facility] Comment: Code Blue Specimen After removal of gross lipemia. Anion gap 20(H) 2 - 15 mmol/L [facility] Comment: Code Blue Specimen After removal of gross lipemia. BUN 15 8 - 25 mg/dL [facility] Comment: Code Blue Specimen After removal of gross lipemia. Creatinine 0.73(L) 0.80 - 1.30 mg/dL [facility] Comment: Code Blue Specimen After removal of gross lipemia. Glucose 426(H) 70 - 199 mg/dL [facility] Comment: Code Blue Specimen After removal of gross lipemia. Interpretive Data Fasting glucose >/= 126 mg/dl [...] interpretive data was last revised 2017. Calcium 9.6 8.5 - 10.3 mg/dL [facility] Comment: Code Blue Specimen After removal of gross lipemia. Bilirubin, total 0.3 0.1 - 1.2 mg/dL [facility] Comment: Code Blue Specimen After removal of gross lipemia. Protein, pl 7.1 6.5 - 8.5 g/dL [facility] Comment: Code Blue Specimen After removal of gross lipemia. Albumin 4.3 3.5 - 5.0 g/dL [facility] Comment: Code Blue Specimen After removal of gross lipemia. Alk phos 152(H) 40 - 130 Units/L [facility] Comment: Code Blue Specimen After removal of gross lipemia. ALT 40 7 - 55 Units/L [facility] Comment: Code Blue Specimen After removal of gross lipemia. AST 18 10 - 50 Units/L [facility] Comment: Code Blue Specimen After removal of gross lipemia. Blood 06/06/2021 4:16 PM OFFICE MACHINE PUNCH OPERATOR 06/06/2021 4:21 PM OFFICE MACHINE PUNCH OPERATOR Magno Nuñez MD LAB BLOOD ORDERABLES Final Res ult Performing Organization Address [facility]/ZIP Co de Phone Number [facility] [place] [address] * (ABNORMAL) POCT glucose (06/06/2021 2:59 PM OFFICE MACHINE PUNCH OPERATOR) [facility] Glucose, POC 572(C) 70 - 199 mg/dL [facility] Glucose comment 1 RN Notified [facility] Blood 06/06/2021 2:59 PM OFFICE MACHINE PUNCH OPERATOR 06/06/2021 2:59 PM OFFICE MACHINE PUNCH OPERATOR Charles Andrew MD LAB POCT ORDERABLES - DEVICE Final Result Performing Organization Address [facility] Co de Phone Number [facility] [place] [address] * eGFR (06/06/2021 2:00 PM OFFICE MACHINE PUNCH OPERATOR) eGFR See Comment 90 - 130 [facility] Comment: Credited, hemolyzed specimen. Interpretive Data Reference Interval Normal ?>/= 90 [...] interpretive data was last reviewed 2021. Blood 06/06/2021 2:00 PM OFFICE MACHINE PUNCH OPERATOR 06/06/2021 2:11 PM OFFICE MACHINE PUNCH OPERATOR us Charles Andrew MD LAB BLOOD ORDERABLES Final Re sult Performing Organization Address [facility] Co de Phone Number [facility] [place] [address] * Urinalysis, microscopic only (06/06/2021 2:00 PM OFFICE MACHINE PUNCH OPERATOR) WBC, ur 0-5 0 - 5 /HPF [facility] RBC, ur 0-2 0 - 2 /HPF [facility] Epithelial cells, squamous, ur 1-5 0 - 5 /HPF [facility] Urine 06/06/2021 2:00 PM OFFICE MACHINE PUNCH OPERATOR 06/06/2021 2:07 PM OFFICE MACHINE PUNCH OPERATOR us Glenn Kerr DO LAB URINE ORDERABLES Melina l Result Performing Organization Address [facility] Co de Phone Number [facility] [place] [address] * Differential, auto (06/06/2021 2:00 PM OFFICE MACHINE PUNCH OPERATOR) Neutrophil abs 2.7 1.7 - 6.5 K/cumm [facility] Imm gran abs 0.0 0.0 - 0.1 K/cumm [facility] Lymphocyte abs 1.5 0.8 - 3.3 K/cumm [facility] Monocyte abs 0.4 0.2 - 0.8 K/cumm [facility] Eosinophil abs 0.2 0.0 - 0.5 K/cumm [facility] Basophil abs 0.0 0.0 - 0.1 K/cumm [facility] Neutrophil pct 57.5 % [facility] Comment: Interpretive Data Percent cell count reference ranges are not reported, since discordance with absolute values may lead to misinterpretation of CBC data. Current Interpretive Data was last revised on 2017. Imm gran pct 0.4 % [facility] Comment: Interpretive Data Percent cell count reference ranges are not reported, since discordance with absolute values may lead to misinterpretation of CBC data. Current Interpretive Data was last revised on 2017. Lymphocyte pct 31.1 % [facility] Comment: Interpretive Data Percent cell count reference ranges are not reported, since discordance with absolute values may lead to misinterpretation of CBC data. Current Interpretive Data was last revised on 2017. Monocyte pct 7.4 % [facility] Comment: Interpretive Data Percent cell count reference ranges are not reported, since discordance with absolute values may lead to misinterpretation of CBC data. Current Interpretive Data was last revised on 2017. Eosinophil pct 3.2 % [facility] Comment: Interpretive Data Percent cell count reference ranges are not reported, since discordance with absolute values may lead to misinterpretation of CBC data. Current Interpretive Data was last revised on 2017. Basophil pct 0.4 % [facility] Comment: Interpretive Data Percent cell count reference ranges are not reported, since discordance with absolute values may lead to misinterpretation of CBC data. Current Interpretive Data was last revised on 2017. Blood 06/06/2021 2:00 PM OFFICE MACHINE PUNCH OPERATOR 06/06/2021 2:11 PM OFFICE MACHINE PUNCH OPERATOR us Charles Andrew MD LAB BLOOD ORDERABLES Final Re sult [facility] [place] [address] * Magnesium (06/06/2021 2:00 PM OFFICE MACHINE PUNCH OPERATOR) Pathologist [facility] Magnesium See Comment 1.4 - 2.5 mg/dL [facility] Comment:Credited, hemolyzed specimen. Blood 06/06/2021 2:00 PM OFFICE MACHINE PUNCH OPERATOR 06/06/2021 2:11 PM OFFICE MACHINE PUNCH OPERATOR us Charles Andrew MD LAB BLOOD ORDERABLES Final Re sult [facility] [place] [address] * (ABNORMAL) CBC with auto differential (06/06/2021 2:00 PM OFFICE MACHINE PUNCH OPERATOR) [facility] WBC 4.7 3.8 - 9.9 K/cumm [facility] Hgb See Comment 13.0 - 17.5 g/dL [facility] Comment:Sample hemolyzed. HG B and-or HCT may be effected. Suggest redraw. Lipemic. Not able to obtain due to gross hemolysis Hct See Comment 38.9 - 50.3 % [facility] Comment:Sample hemolyzed. HG B and-or HCT may be effected. Suggest redraw. Not able to obtain due to gross hemolysis Plt 309 150 - 400 K/cumm [facility] MPV 10.8 9.1 - 12.3 fL [facility] RBC See Comment 4.30 - 5.80 M/cumm [facility] Comment:Sample hemolyzed; HG B may be elevated due to free hemoglobin, or HCT may be falsely decreased due to ex vivo hemolysis. Lipemic. Not able to obtain due to gross hemolysis MCV See Comment 81.3 - 96.4 fL [facility] Comment:Not able to obtain d ue to gross hemolysis MCH See Comment 27.1 - 33.3 pg [facility] Comment:Not able to obtain d ue to gross hemolysis MCHC See Comment 32.3 - 35.7 g/dL [facility] Comment:Not able to obtain d ue to gross hemolysis RDW CV #SN 11.1 - 14.9 % [facility] Comment:Not able to obtain d ue to gross hemolysis RDW SD #SN 35.7 - 48.1 fL [facility] Comment:Not able to obtain d ue to gross hemolysis NRBC abs 0.04(H) 0.00 - 0.01 K/cumm [facility] Blood 06/06/2021 2:00 PM OFFICE MACHINE PUNCH OPERATOR 06/06/2021 2:11 PM OFFICE MACHINE PUNCH OPERATOR Charles Andrew MD LAB BLOOD ORDERABLES Final Re sult Performing Organization Address City/[facility]/ZIP Co de Phone Number [facility] [place] [address] * Lipase (06/06/2021 2:00 PM OFFICE MACHINE PUNCH OPERATOR) Pathologist [facility] Lipase See Comment 10 - 99 Units/L [facility] Comment:Credited, hemolyzed specimen. Blood 06/06/2021 2:00 PM OFFICE MACHINE PUNCH OPERATOR 06/06/2021 2:11 PM OFFICE MACHINE PUNCH OPERATOR Charles Andrew MD LAB BLOOD ORDERABLES Final Re sult Performing Organization Address [facility] Co de Phone Number [facility] [place] [address] * Comprehensive metabolic panel (06/06/2021 2:00 PM OFFICE MACHINE PUNCH OPERATOR) Sodium See Comment 135 - 145 mmol/L [facility] Comment:Credited, hemolyzed specimen. Potassium, pl See Comment 3.3 - 4.9 mmol/L [facility] Comment:Credited, hemolyzed specimen. Chloride See Comment 97 - 110 mmol/L [facility] Comment:Credited, hemolyzed specimen. CO2 See Comment 22 - 32 mmol/L [facility] Comment:Credited, hemolyzed specimen. Anion gap See Comment 2 - 15 mmol/L [facility] Comment:Credited, hemolyzed specimen. BUN See Comment 8 - 25 mg/dL [facility] Comment:Credited, hemolyzed specimen. Creatinine See Comment 0.80 - 1.30 mg/dL [facility] Comment:Credited, hemolyzed specimen. Glucose See Comment 70 - 199 mg/dL [facility] Comment: Credited, hemolyzed specimen. Interpretive Data Fasting glucose >/= 126 mg/dl [...] interpretive data was last revised 2017. Calcium See Comment 8.5 - 10.3 mg/dL [facility] Comment:Credited, hemolyzed specimen. Bilirubin, total See Comment 0.1 - 1.2 mg/dL [facility] Comment:Credited, hemolyzed specimen. Protein, pl See Comment 6.5 - 8.5 g/dL [facility] Comment:Credited, hemolyzed specimen. Albumin See Comment 3.5 - 5.0 g/dL [facility] Comment:Credited, hemolyzed specimen. Alk phos See Comment 40 - 130 Units/L [facility] Comment:Credited, hemolyzed specimen. ALT See Comment 7 - 55 Units/L [facility] Comment:Credited, hemolyzed specimen. AST See Comment 10 - 50 Units/L [facility] Comment:Credited, hemolyzed specimen. Blood 06/06/2021 2:00 PM OFFICE MACHINE PUNCH OPERATOR 06/06/2021 2:11 PM OFFICE MACHINE PUNCH OPERATOR us Charles Andrew MD LAB BLOOD ORDERABLES Final Re sult [facility] [place] [address] * (ABNORMAL) Urinalysis reflex to microscopic (06/06/2021 2:00 PM OFFICE MACHINE PUNCH OPERATOR) Color, ur Straw Yellow [facility] Clarity, ur Clear Clear [facility] Specific gravity, ur 1.033(H) 1.003 - 1.030 [facility] pH, urine 6 [facility] Protein, ur ql 1+(A) Negative [facility] Glucose, ur ql 4+(A) Negative [facility] Ketones, ur 3+(A) Negative [facility] Bilirubin, ur Negative Negative [facility] Blood, ur Negative Negative [facility] Urobilinogen, ur <2.0 <2.0 mg/dL [facility] Nitrite, ur Negative Negative [facility] Leukocyte esterase, ur Negative Negative [facility] UA reflex comment Reflex to microscopic UA will be performed. [facility] Urine 06/06/2021 2:00 PM OFFICE MACHINE PUNCH OPERATOR 06/06/2021 2:07 PM OFFICE MACHINE PUNCH OPERATOR Narrative [facility] - 06/06/2021 2:28 PM OFFICE MACHINE PUNCH OPERATOR ?? Urine pH is affected by diet, medications, systemic acid-base disturbances, and renal tubular function. ??pH may affect urinary stone formation. ??For example, urine pH below 6.0 may help reduce the tendency for calcium phosphate stones and pH greater than 6.0 may reduce the tendency for uric acid stone formation. Source: [facility]. Last revised 05-16-2017 Glenn Kerr DO LAB URINE ORDERABLES Melina l Result Performing Organization Address City/State/[facility] Co de Phone Number [facility] [place] [address] * (ABNORMAL) POCT glucose (06/06/2021 1:58 PM OFFICE MACHINE PUNCH OPERATOR) Glucose, POC 585(C) 70 - 199 mg/dL [facility] Glucose comment 1 RN Notified [facility] Blood 06/06/2021 1:58 PM OFFICE MACHINE PUNCH OPERATOR 06/06/2021 1:58 PM OFFICE MACHINE PUNCH OPERATOR us Charles Andrew MD LAB POCT ORDERABLES - DEVICE Final Result Performing Organization Address City/[facility]/ZIP Co de Phone Number [facility] Department [place] [address] * (ABNORMAL) POCT glucose (06/06/2021 1:16 PM OFFICE MACHINE PUNCH OPERATOR) Pathologist [facility] Glucose, POC >600(C) 70 - 199 mg/dL [facility] Glucose comment 1 RN Notified [facility] Blood 06/06/2021 1:16 PM OFFICE MACHINE PUNCH OPERATOR 06/06/2021 1:16 PM OFFICE MACHINE PUNCH OPERATOR Charles Andrew MD LAB POCT ORDERABLES - DEVICE Final Result Performing Organization Address [facility] Co de Phone Number [facility] Department [place] [address] * Differential, auto (06/06/2021 12:24 PM OFFICE MACHINE PUNCH OPERATOR) [facility] Neutrophil abs 2.9 1.7 - 6.5 K/cumm [facility] Imm gran abs 0.0 0.0 - 0.1 K/cumm [facility] Lymphocyte abs 1.6 0.8 - 3.3 K/cumm [facility] Monocyte abs 0.4 0.2 - 0.8 K/cumm [facility] Eosinophil abs 0.1 0.0 - 0.5 K/cumm [facility] Basophil abs 0.0 0.0 - 0.1 K/cumm [facility] Neutrophil pct 57.2 % [facility] Comment: Interpretive Data Percent cell count reference ranges are not reported, since discordance with absolute values may lead to misinterpretation of CBC data. Current Interpretive Data was last revised on 2017. Imm gran pct 0.6 % [facility] Comment: Interpretive Data Percent cell count reference ranges are not reported, since discordance with absolute values may lead to misinterpretation of CBC data. Current Interpretive Data was last revised on 2017. Lymphocyte pct 31.0 % [facility] Comment: Interpretive Data Percent cell count reference ranges are not reported, since discordance with absolute values may lead to misinterpretation of CBC data. Current Interpretive Data was last revised on 2017. Monocyte pct 7.6 % [facility] Comment: Interpretive Data Percent cell count reference ranges are not reported, since discordance with absolute values may lead to misinterpretation of CBC data. Current Interpretive Data was last revised on 2017. Eosinophil pct 2.8 % [facility] Comment: Interpretive Data Percent cell count reference ranges are not reported, since discordance with absolute values may lead to misinterpretation of CBC data. Current Interpretive Data was last revised on 2017. Basophil pct 0.8 % [facility] Comment: Interpretive Data Percent cell count reference ranges are not reported, since discordance with absolute values may lead to misinterpretation of CBC data. Current Interpretive Data was last revised on 2017. Blood 06/06/2021 12:2 4 PM OFFICE MACHINE PUNCH OPERATOR 06/06/2021 12:29 PM OFFICE MACHINE PUNCH OPERATOR Glenn Kerr DO LAB BLOOD ORDERABLES Melina l Result Performing Organization Address [facility] de Phone Number [facility] [place] [address] * (ABNORMAL) Blood gas, venous (06/06/2021 12:24 PM OFFICE MACHINE PUNCH OPERATOR) pH, Venous 7.33 7.32 - 7.43 [facility] PCO2, Venous 36(L) 40 - 50 mmHg [facility] PO2, Venous 66 mmHg [facility] Comment: Interpretive Data No Reference Range Established Current Interpretive Data was last revised on 2017. HCO3 Venous, Calculated 20 20 - 30 mmol/L [facility] BE, venous -6 mmol/L [facility] Comment: Interpretive Data No Reference Range Established Current Interpretive Data was last revised on 2017. Blood 06/06/2021 12:2 4 PM OFFICE MACHINE PUNCH OPERATOR 06/06/2021 12:29 PM OFFICE MACHINE PUNCH OPERATOR Glenn Kerr DO LAB BLOOD ORDERABLES Melina l Result Performing Organization Address [facility]/ZIP Co de Phone Number [facility] Department [place] [address] * (ABNORMAL) CBC with auto differential (06/06/2021 12:24 PM OFFICE MACHINE PUNCH OPERATOR) [facility] WBC 4.0 3.8 - 9.9 K/cumm [facility] Comment:Result required veri fication by manual methods. Hgb See Comment 13.0 - 17.5 g/dL [facility] Comment:Sample hemolyzed. Morrison ggest redraw. Results invalid. Hct 44.7 38.9 - 50.3 % [facility] Plt 327 150 - 400 K/cumm [facility] MPV 10.9 9.1 - 12.3 fL [facility] RBC 5.33 4.30 - 5.80 M/cumm [facility] MCV 83.9 81.3 - 96.4 fL [facility] MCH See Comment 27.1 - 33.3 pg [facility] Comment:Sample hemolyzed. Morrison ggest redraw. Results invalid. MCHC See Comment 32.3 - 35.7 g/dL [facility] Comment:Sample hemolyzed. Morrison ggest redraw. Results invalid. RDW CV 16.6(H) 11.1 - 14.9 % [facility] RDW SD 42.8 35.7 - 48.1 fL [facility] NRBC abs 0.03(H) 0.00 - 0.01 K/cumm [facility] Blood (Blood, Venous) 06/06/2021 12:24 PM OFFICE MACHINE PUNCH OPERATOR 06/06/2021 12:29 PM OFFICE MACHINE PUNCH OPERATOR Glenn Kerr DO LAB BLOOD ORDERABLES Edit ed Result - Final [facility] Department [place] [address] * Influenza A/B, RSV, and COVID-19 PCR Nasopharyngeal (06/06/2021 12:24 PM OFFICE MACHINE PUNCH OPERATOR) [facility] COVID-19 RNA Negative Negative [facility] Influenza A RNA Negative Negative [facility] Influenza B RNA Negative Negative [facility] RSV RNA Negative Negative [facility] Comment: Interpretive data: Testing performed by [facility] ([phone]). This test is performed using the [employer] Xpert Xpress CoV-2/Flu/RSV plus assay. This is a multiplex, real-time reverse transcriptase PCR assay intended for the qualitative detection of nucleic acid from SARS-CoV-2, influenza A, influenza B, and respiratory syncytial virus. This assay has been reviewed by the FDA for Emergency Use Authorization (EUA). The performance characteristics have been verified by the [facility]. Results must be considered in the clinical context, and a negative result does not rule out infection. Interpretive Data last revised 2021. First COVID-19 test? No [facility] Employeed in healthcare? No [facility] Group care resident? No [facility] Hospitalized? No [facility] Is patient in ICU? No [facility] Symptomatic as defined by CDC? No [facility] Nasopharyngeal 06/06/2021 12 :24 PM OFFICE MACHINE PUNCH OPERATOR 06/06/2021 12:32 PM OFFICE MACHINE PUNCH OPERATOR Narrative [facility] - 06/06/2021 1:15 PM OFFICE MACHINE PUNCH OPERATOR Reason for testing?->Bed placement or semi-private room Known exposure to confirmed or suspected COVID-19 case?->No Glenn Kerr DO LAB MICROBIOLOGY - GENERA L ORDERABLES Final Result Performing Organization Address City/State/[facility] Co de Phone Number [facility] [place] [address] * XR Chest 1 View (06/06/2021 12:17 PM OFFICE MACHINE PUNCH OPERATOR) Anatomical Region Laterality Modality Body, Chest N/A Computed Radiogr aphy 06/06/2021 12:3 7 PM OFFICE MACHINE PUNCH OPERATOR Impressions 06/06/2021 12:37 PM OFFICE MACHINE PUNCH OPERATOR Comparison to 01/14/2020. Small lung volumes. No focal consolidation, pleural effusion, or pneumothorax. Normal cardiomediastinal silhouette accounting for small lung volumes. Electronically signed by: Miah Fisher M.D. Narrative 06/06/2021 12:37 PM OFFICE MACHINE PUNCH OPERATOR EXAMINATION: 1 view chest radiograph Procedure Note Miah Fisher MD - 06/06/2021 EXAMINATION: 1 view chest radiograph IMPRESSION: Comparison to 01/14/2020. Small lung volumes. No focal consolidation, pleural effusion, or pneumothorax. Normal cardiomediastinal silhouette accounting for small lung volumes. Electronically signed by: Miah Fisher M.D. Glenn Murraykatiuskadamon DO IMG XR PROCEDURES Final R esult * PA CRITICAL CARE ILL/INJURED PATIENT INIT 30-74 MIN (06/06/2021 12:10 PM OFFICE MACHINE PUNCH OPERATOR) Narrative Charles Andrew MD - 06/06/2021 12:10 PM OFFICE MACHINE PUNCH OPERATOR Charles Andrew MD ? 06/06/2021 12:11 PM Critical Care Performed by: Charles Andrew MD Authorized by: Charles Andrew MD Critical care provider statement: As reflected in the history, physical exam, orders, notes, and/or MDM, I was personally present while the patient was critically ill and provided critical care services for approximately 30 minutes, excluding time involved in separately billable procedures. ??Critical care was necessary to treat or prevent imminent or life-threatening deterioration of the following condition(s): ?? diabetic ketoacidosis ??Critical care was time spent by me providing the following: ? resuscitation with fluids, continuous telemetry and continuous pulse oximetry ?? glycemic control ?? I provided emergent necessary critical care medicine services to this patient. I ordered and reviewed test results and/or imaging studies. I spent time documenting in the medical record. I spent time discussing the management of this critically ill patient with consultants and the medical staff. us Charles Andrew MD IN CLINIC/BEDSIDE ORDERABLES Final Result * (ABNORMAL) POCT ketone (06/06/2021 11:52 AM OFFICE MACHINE PUNCH OPERATOR) Ketones, Blood, POC 2.4(A) 0.1 - 0.5 mmol/L Blood specimen (specimen) 06/06/2021 11:52 AM OFFICE MACHINE PUNCH OPERATOR us Charles Andrew MD POINT OF CARE TEST ORDERABLES Final Result * (ABNORMAL) POCT glucose (06/06/2021 11:50 AM OFFICE MACHINE PUNCH OPERATOR) Glucose, POC 535(C) 70 - 199 mg/dL [facility] Glucose comment 1 RN Notified [facility] Blood 06/06/2021 11:5 0 AM OFFICE MACHINE PUNCH OPERATOR 06/06/2021 11:50 AM OFFICE MACHINE PUNCH OPERATOR us Notinfile Unknown LAB POCT ORDERABLES - DEVICE F inal Result [facility] [place] [address] documented in this encounter Visit Diagnoses Diagnosis Ketoacidosis due to diabetes (CMS/HCC) (HCC)- Primary Type II or unspecified type diabetes mellitus with ketoacidosis, not stated as uncontrolled Hyperglycemia due to diabetes mellitus (CMS/HCC) (HCC) Essential hypertension Unspecified essential hypertension Diabetic ketoacidosis without coma associated with type 2 diabetes mellitus (CMS/HCC) (HCC) Mood disorder (CMS/HCC) (HCC) Unspecified episodic mood disorder documented in this encounter Administered Medications Inactive Administered Medications - up to 3 most recent administrations Medication Order MAR Action Action Date Dose Rate Site acetaminophen (TYLENOL) tablet 650 mg 650 mg, oral, Every 4 hours PRN, 1st line for pain, fever, fever greater than 38.3 C, Starting on Sat06/06/21 at 2234, Indications: Fever, PainIndications:Fever,Rogers n Given 06/06/2021 11:05 PM OFFICE MACHINE PUNCH OPERATOR 650 mg carvediloL (COREG) tablet 25 mg 25 mg, oral, 2 times daily with meals (bkfst, dinner), First dose on Sat06/07/21 at 0800 Given 06/07/2021 8:21 AM OFFICE MACHINE PUNCH OPERATOR 25 mg dextrose (D10W) 10% bolus 250 mL 250 mL, intravenous, at 1,000 mL/hr, Administer over 15 Minutes, Every 15 min PRN, blood glucose less than 70 mg/dL and UNABLE to swallow/take PO glucose/juice., Starting on Sat06/06/21 at 2239, After treatment for hypoglycemia, recheck BG followed by treatment every 15 minutes until the BG is greater than 100 mg/dL. Then check BG 1 hour post treatment. If BG is less than 100 mg/dL, repeat Q15 minute BG checks and treatment. Call MD for each episode of hypoglycemia., Indications: hypoglycemic disorderIndications:hypog lycemic disorder dextrose (GLUTOSE) 40 % gel 15 g 15 g, oral, Every 15 min PRN, low blood sugar, blood glucose less than 70 mg/dL, Starting on Sat06/06/21 at 2239, If patient is alert and able to [...] Call MD for each episode of hypoglycemia. AVIONICS SUPERVISOR STATES GLUTOSE-15 CONTAINS GLUCOSE 40% W/W (50% W/V), Indications: hypoglycemic disorderIndications:hypog lycemic disorder dextrose 5% infusion 0-250 mL/hr, intravenous, Titrated, Starting on Sat06/06/21 at 1253, BG 200-250 - start at 100 mL/hr BG 150-199 - start at 150 mL/hr BG 100-149 - start at 200 mL/hr BG less than 100 - start at 250 mL/hr Check blood glucose every 2 hours. BG greater than 250 - decrease rate by 50 mL/hr BG 200-250 - keep same rate (target) BG 150-199 - increase rate by 50 mL/hr BG 100-149 - increase rate by 100 mL/hr BG less than 100 - increase rate to max 250 mL/hr and contact provider; repeat BG in 30-60 minutes from rate change Max rate - 250 mL/hr Rate/Dose Change 06/06/2021 8:59 PM OFFICE MACHINE PUNCH OPERATOR 150 mL/hr 150 mL/hr New Bag 06/06/2021 7:25 PM OFFICE MACHINE PUNCH OPERATOR 100 mL/hr 100 mL/hr DULoxetine DR (CYMBALTA) extended release capsule 60 mg 60 mg, oral, Daily, First dose on Sat06/07/21 at 0900, Capsule may be opened and contents mixed with applesauce or apple juice ONLY. Do not crush, chew, cut, dissolve, open or otherwise manipulate tablet/capsule., Indications: Anxiety with DepressionIndications:Anxiety with Depression Given 06/07/2021 8:2 1 AM OFFICE MACHINE PUNCH OPERATOR 60 mg glucagon injection 1 mg 1 mg, intramuscular, Every 30 min PRN, low blood sugar, blood glucose less than 70 mg/dL AND no IV access AND unable to take PO glucose/juice., Starting on Sat06/06/21 at 2239, After Glucagon is administered, position patient on [...] 1 mL SWFI. Use immediately following reconstitution. ibuprofen (ADVIL,MOTRIN) tablet 600 mg 600 mg, oral, 4 times daily PRN, 2nd line for pain, headaches, 2nd line for headaches, Starting on Sat06/07/21 at 0204, Do not crush, break, or open. Given 06/07/2021 9:38 AM OFFICE MACHINE PUNCH OPERATOR 600 mg Given 06/07/2021 2:21 AM OFFICE MACHINE PUNCH OPERATOR 600 mg insulin glargine (LANTUS, SEMGLEE) 100 unit/mL injection 100 Units 100 Units, subcutaneous, 2 times daily, First dose on Sat06/06/21 at 2330, Do not hold if NPO. Do not mix with other insulins, Indications: Diabetes MellitusIndications:Diabete s Mellitus Given 06/07/2021 8:21 AM OFFICE MACHINE PUNCH OPERATOR 100 Units Left Upper Abdomen Given 06/06/2021 11:42 PM OFFICE MACHINE PUNCH OPERATOR 100 Units L eft Lower Abdomen insulin lispro (HumaLOG, ADMELOG) 100 unit/mL injection 0-10 Units 0-10 Units, subcutaneous, 3 times daily with meals, First dose on Sat06/07/21 at 0800, Blood glucose mg/dL: 149 or less: No insulin 150-199: add 2 unit 200-249: add 4 units 250-299: add 6 units 300-349: add 8 units and notify physician for adjustment of insulin orders. 350-399: add 10 units and notify physician for adjustment of insulin orders. Over 400: Notify physician for adjustment of insulin orders. Do NOT hold for NPO Status, Indications: Diabetes MellitusIndications:Diabetes Mellitus Given 06/07/2021 1:36 PM OFFICE MACHINE PUNCH OPERATOR 8 Units Left Lower Abdomen Given 06/07/2021 8:54 AM OFFICE MACHINE PUNCH OPERATOR 6 Units Ri ght Upper Arm insulin lispro (HumaLOG, ADMELOG) 100 unit/mL injection 0-10 Units 0-10 Units, subcutaneous, As needed, other, to be given with snacks, Starting on Sat06/07/21 at 0154, Blood glucose mg/dL: 149 or less: No insulin 150-199: add 2 unit 200-249: add 4 units 250-299: add 6 units 300-349: add 8 units and notify physician for adjustment of insulin orders. 350-399: add 10 units and notify physician for adjustment of insulin orders. Over 400: Notify physician for adjustment of insulin orders. Do NOT hold for NPO Status, Indications: Diabetes MellitusIndications:Diabetes Mellitus Given 06/07/2021 2:21 AM OFFICE MACHINE PUNCH OPERATOR 4 Units Right Lower Abdomen insulin lispro (HumaLOG, ADMELOG) 100 unit/mL injection 0-5 Units 0-5 Units, subcutaneous, Nightly, First dose on Sat06/06/21 at 2330, Blood glucose mg/dL: 149 or less: No insulin 150-199: add 1 unit 200-249: add 2 units 250-299: add 3 units 300-349: add 4 units and notify physician for adjustment of insulin orders. 350-399: add 5 units and notify physician for adjustment of insulin orders. Over 400: Notify physician for adjustment of insulin orders. Do NOT hold for NPO Status, Indications: Diabetes MellitusIndications:Diabetes Mellitus insulin lispro (HumaLOG, ADMELOG) 100 unit/mL injection 18 Units 18 Units (rounded from 18.05 Units = 0.1 Units/kg ? 180.5 kg), subcutaneous, Every 2 hours, First dose on Sat06/06/21 at 1400, Check blood glucose prior to each administration. Administer when blood glucose is LESS THAN 250 mg/dL. Notify provider when ketoacidosis resolved (anion gap less than or equal to 16)., Indications: diabetic ketoacidosisIndications:diabe tic ketoacidosis Given 06/06/2021 11:06 PM OFFICE MACHINE PUNCH OPERATOR 18 Units Left Upper Arm Given 06/06/2021 7:22 PM OFFICE MACHINE PUNCH OPERATOR 18 Units Le ft Upper Arm insulin lispro (HumaLOG, ADMELOG) 100 unit/mL injection 20 Units 20 Units, subcutaneous, 3 times daily with meals, First dose on Sat06/07/21 at 0800, If BG greater than or [...] 70 mg/dL., Indications: Diabetes MellitusIndications:Diabetes Mellitus Given 06/07/2021 1:36 PM OFFICE MACHINE PUNCH OPERATOR 20 Units Left Lower Abdomen Given 06/07/2021 8:55 AM OFFICE MACHINE PUNCH OPERATOR 20 Units Ri ght Upper Arm insulin lispro (HumaLOG, ADMELOG) 100 unit/mL injection 36 Units 36 Units (rounded from 36.1 Units = 0.2 Units/kg ? 180.5 kg), subcutaneous, Every 2 hours, First dose on Sat06/06/21 at 1400, Check blood glucose prior to each administration. Administer when blood glucose is GREATER THAN OR EQUAL TO 250 mg/dL. Notify provider when ketoacidosis resolved (anion gap less than or equal to 16)., Indications: diabetic ketoacidosisIndications:diabe tic ketoacidosis Given 06/06/2021 4:45 PM OFFICE MACHINE PUNCH OPERATOR 36 Units Left Lower Abdomen Given 06/06/2021 1:23 PM OFFICE MACHINE PUNCH OPERATOR 36 Units Le ft Lower Abdomen Lactated Ringer's (LR) bolus 1,000 mL 1,000 mL, intravenous, at 1,000 mL/hr, Administer over 1 Hours, Once, On Sat06/06/21 at 1209, For 1 dose New Bag 06/06/2021 12:28 PM OFFICE MACHINE PUNCH OPERATOR 1,000 mL 1000 mL/hr lisinopriL (PRINIVIL,ZESTRIL) tablet 20 mg 20 mg, oral, Daily, First dose on Sat06/07/21 at 0900 Given 06/07/2021 8:21 AM OFFICE MACHINE PUNCH OPERATOR 20 mg magnesium sulfate 2 g/50 mL in water (premix) 2 g 2 g, intravenous, Administer over 60 Minutes, Once, On Sat06/06/21 at 1905, For 1 dose New Bag 06/06/2021 7:36 PM OFFICE MACHINE PUNCH OPERATOR 2 g ondansetron (ZOFRAN) injection 4 mg 4 mg, intravenous, Administer over 2 Minutes, Every 6 hours PRN, nausea, vomiting, if not tolerating PO, Starting on Sat06/06/21 at 2234, Indications: Nausea and VomitingIndications:Nausea and Vomiting ondansetron ODT (ZOFRAN-ODT) disintegrating tablet 4 mg 4 mg, oral, Once, On Sat06/06/21 at 1209, For 1 dose Given 06/06/2021 12:28 PM OFFICE MACHINE PUNCH OPERATOR 4 mg ondansetron ODT (ZOFRAN-ODT) disintegrating tablet 4 mg 4 mg, oral, Every 6 hours PRN, nausea, vomiting, Starting on Sat06/06/21 at 2234, Indications: Nausea and VomitingIndications:Nausea and Vomiting potassium chloride (KLOR-CON) packet 40 mEq 40 mEq, feeding tube, Once, On Sat06/06/21 at 1634, For 1 dose, Dissolve one packet in at least 120 mL of cold water or other beverage prior to administration. Given 06/06/2021 4:46 PM OFFICE MACHINE PUNCH OPERATOR 40 mEq potassium chloride 20 mEq/260 mL in sodium chloride 0.9% (premix) 20 mEq 20 mEq, intravenous, Administer over 2 Hours, Once, On Sat06/06/21 at 1906, For 1 dose, Indications: hypokalemiaIndications:hypokalemi a New Bag 06/06/2021 7:46 PM OFFICE MACHINE PUNCH OPERATOR 20 mEq sodium chloride 0.45% infusion 150 mL/hr, intravenous, Continuous, Starting on Sat06/06/21 at 1253, Decrease rate to 50 mL/hr when blood glucose reaches 250 mg/dL. New Bag 06/06/2021 10:26 PM OFFICE MACHINE PUNCH OPERATOR 50 mL/hr 50 mL/hr Rate/Dose Change 06/06/2021 7:24 PM OFFICE MACHINE PUNCH OPERATOR 50 mL/hr 50 mL/h r New Bag 06/06/2021 2:04 PM OFFICE MACHINE PUNCH OPERATOR 150 mL/hr 150 mL/hr sodium chloride 0.9% bolus 1,000 mL 1,000 mL, intravenous, at 1,000 mL/hr, Administer over 1 Hours, Once, On Sat06/06/21 at 1253, For 1 dose New Bag 06/06/2021 1:23 PM OFFICE MACHINE PUNCH OPERATOR 1,000 mL 1000 mL/hr sodium chloride 0.9% flush 0.5-20 mL 0.5-20 mL, intra-catheter, Every 8 hours scheduled, First dose on Sat06/06/21 at 2315, Flush volume based on line type and size. Given 06/07/2021 4:04 AM OFFICE MACHINE PUNCH OPERATOR 10 mL Given 06/06/2021 11:08 PM OFFICE MACHINE PUNCH OPERATOR 10 mL documented in this encounter Discontinued Medications Medication Sig Discontinue Reason Start Date End Da te HumuLIN R U-500, Conc, Kwikpen 500 unit/mL (3 mL) CONCENTRATED injection Reorder 04/04/2020 06/07/2021 NovoLOG Flexpen U-100 Insulin 100 unit/mL (3 mL) insulin pen Reorder 05/24/2020 06/07/2021 insulin regular U-500 (HumuLIN R U-500) 500 unit/mL CONCENTRATED injectionIndications:Renee betes Mellitus with Severe Insulin Resistance Inject 95 Units under the skin 3 (three) times a day Stop Taking at Discharge 06/07/2021 insulin lispro (HumaLOG, ADMELOG) 100 unit/mL insulin penIndications:type 2 diabetes mellitus Inject 10 Units under the skin 3 (three) times a day with meals Stop Taking at Discharge 05/19/2020 06/07/2021 lisinopriL (PRINIVIL,ZESTRIL) 40 mg tablet Take 1 tablet (40 mg total) by mouth daily Stop Taking at Discharge 08/14/2020 06/07/2021 documented as of this encounter Active and Recently Administered Medications Times are shown in OFFICE MACHINE PUNCH OPERATOR. Scheduled Medication Order 06/05/2021 06/06/2021 06/07/2021 carvediloL (COREG) tablet 25 mg 25 mg, oral, 2 times daily with meals (bkfst, dinner), First dose on Sat06/07/21 at 0800 0821 (Given - Provid er: Genny Sinclair RN) DULoxetine DR (CYMBALTA) extended release capsule 60 mg 60 mg, oral, Daily, First dose on Sat06/07/21 at 0900, Capsule may be opened and contents mixed with applesauce or apple juice ONLY. Do not crush, chew, cut, dissolve, open or otherwise manipulate tablet/capsule., Indications: Anxiety with Depression 0821 (Given - Provid er: Genny Sinclair RN) insulin glargine (LANTUS, SEMGLEE) 100 unit/mL injection 100 Units 100 Units, subcutaneous, 2 times daily, First dose on Sat06/06/21 at 2330, Do not hold if NPO. Do not mix with other insulins, Indications: Diabetes Mellitus 2342 (Given - Provider: Sonia Lomax RN) 0821 (Given - Provider: Genny Sinclair RN) insulin lispro (HumaLOG, ADMELOG) 100 unit/mL injection 0-10 Units 0-10 Units, subcutaneous, 3 times daily with meals, First dose on Sat06/07/21 at 0800, Blood glucose mg/dL: 149 or less: No insulin 150-199: add 2 unit 200-249: add 4 units 250-299: add 6 units 300-349: add 8 units and notify physician for adjustment of insulin orders. 350-399: add 10 units and notify physician for adjustment of insulin orders. Over 400: Notify physician for adjustment of insulin orders. Do NOT hold for NPO Status, Indications: Diabetes Mellitus 0854 (Given - Provid er: Genny Sinclair RN)1336 (Given - Provider: Sissy Jackson RN) insulin lispro (HumaLOG, ADMELOG) 100 unit/mL injection 0-5 Units 0-5 Units, subcutaneous, Nightly, First dose on Sat06/06/21 at 2330, Blood glucose mg/dL: 149 or less: No insulin 150-199: add 1 unit 200-249: add 2 units 250-299: add 3 units 300-349: add 4 units and notify physician for adjustment of insulin orders. 350-399: add 5 units and notify physician for adjustment of insulin orders. Over 400: Notify physician for adjustment of insulin orders. Do NOT hold for NPO Status, Indications: Diabetes Mellitus 2345 (Not Given - Provider: Sonia Lomax RN - Reason: Other - Comment: MD - hold (telephone order)) insulin lispro (HumaLOG, ADMELOG) 100 unit/mL injection 18 Units (CANCELED)(Linked Group 1) 18 Units (rounded from 18.05 Units = 0.1 Units/kg ? 180.5 kg), subcutaneous, Every 2 hours, First dose on Sat06/06/21 at 1400, Check blood glucose prior to each administration. Administer when blood glucose is LESS THAN 250 mg/dL. Notify provider when ketoacidosis resolved (anion gap less than or equal to 16)., Indications: diabetic ketoacidosis 1323 (See Alternative - Provider: Elva Theodore RN)1645 (See Alternative - Provider: Elva Theodore RN)192 (Given - Provider: Jose Campbell RN - Comment: see nurses notes)1999 (Due)230 (Given - Provider: Sonia Lomax RN) 0000 (Due) insulin lispro (HumaLOG, ADMELOG) 100 unit/mL injection 20 Units 20 Units, subcutaneous, 3 times daily with meals, First dose on Sat06/07/21 at 0800, If BG greater than or [...] less than 70 mg/dL., Indications: Diabetes Mellitus 0855 (Given - Provid er: Genny Sinclair RN)1336 (Given - Provider: Sissy Jackson RN) insulin lispro (HumaLOG, ADMELOG) 100 unit/mL injection 36 Units (CANCELED)(Linked Group 1) 36 Units (rounded from 36.1 Units = 0.2 Units/kg ? 180.5 kg), subcutaneous, Every 2 hours, First dose on Sat06/06/21 at 1400, Check blood glucose prior to each administration. Administer when blood glucose is GREATER THAN OR EQUAL TO 250 mg/dL. Notify provider when ketoacidosis resolved (anion gap less than or equal to 16)., Indications: diabetic ketoacidosis 1323 (Given - Provider: Elva Theodore RN)1645 (Given - Provider: Elva Theodore RN)1922 (See Alternative - Provider: Jose Campbell RN)2000 (Due)2306 (See Alternative - Provider: Sonia Lomax RN) 0000 (Due) Lactated Ringer's (LR) bolus 1,000 mL (COMPLETED) 1,000 mL, intravenous, at 1,000 mL/hr, Administer over 1 Hours, Once, On Sat06/06/21 at 1209, For 1 dose 1228 (New Bag - Provider: Elva Theodore RN)1328 (Stopped - Provider: Elva Theodore RN) lisinopriL (PRINIVIL,ZESTRIL) tablet 20 mg 20 mg, oral, Daily, First dose on Sat06/07/21 at 0900 0821 (Given - Provid er: Genny Sinclair RN) magnesium sulfate 2 g/50 mL in water (premix) 2 g (COMPLETED) 2 g, intravenous, Administer over 60 Minutes, Once, On Sat06/06/21 at 1905, For 1 dose 193 (New Bag - Provider: Jose Campbell RN) ondansetron ODT (ZOFRAN-ODT) disintegrating tablet 4 mg (COMPLETED) 4 mg, oral, Once, On Sat06/06/21 at 1209, For 1 dose 1228 (Given - Provider: Elva Theodore RN) potassium chloride (KLOR-CON) packet 40 mEq (COMPLETED) 40 mEq, feeding tube, Once, On Sat06/06/21 at 1634, For 1 dose, Dissolve one packet in at least 120 mL of cold water or other beverage prior to administration. 1646 (Given - Provider: Elva Theodore RN - Comment: Given oral) potassium chloride 20 mEq/260 mL in sodium chloride 0.9% (premix) 20 mEq (COMPLETED) 20 mEq, intravenous, Administer over 2 Hours, Once, On Sat06/06/21 at 1906, For 1 dose, Indications: hypokalemia 194 (New Bag - Provider: Jose Campbell RN) sodium chloride 0.9% bolus 1,000 mL (COMPLETED) 1,000 mL, intravenous, at 1,000 mL/hr, Administer over 1 Hours, Once, On Sat06/06/21 at 1253, For 1 dose 1323 (New Bag - Provider: Elva Theodore RN)1503 (Stopped - Provider: Elva Theodore RN) sodium chloride 0.9% flush 0.5-20 mL 0.5-20 mL, intra-catheter, Every 8 hours scheduled, First dose on Sat06/06/21 at 2315, Flush volume based on line type and size. 2308 (Given - Provider: Sonia Lomax, BRYANNA) 0404 (Given - Provider: Sonia Lomax RN)1400 (Due) Continuous Medication Order 06/05/2021 06/06/2021 06/07/2021 dextrose 5% infusion (CANCELED) 0-250 mL/hr, intravenous, Titrated, Starting on Sat06/06/21 at 1253, BG 200-250 - start at 100 mL/hr BG 150-199 - start at 150 mL/hr BG 100-149 - start at 200 mL/hr BG less than 100 - start at 250 mL/hr Check blood glucose every 2 hours. BG greater than 250 - decrease rate by 50 mL/hr BG 200-250 - keep same rate (target) BG 150-199 - increase rate by 50 mL/hr BG 100-149 - increase rate by 100 mL/hr BG less than 100 - increase rate to max 250 mL/hr and contact provider; repeat BG in 30-60 minutes from rate change Max rate - 250 mL/hr 1924 (New Bag - Provider: Sreedhar Campbell RN)2058 (Rate/Dose Change - Provider: Jose Campbell RN) sodium chloride 0.45% infusion (CANCELED) 150 mL/hr, intravenous, Continuous, Starting on Sat06/06/21 at 1253, Decrease rate to 50 mL/hr when blood glucose reaches 250 mg/dL. 1300 (Canceled Entry - Provider: Elva Theodore RN)1404 (New Bag - Provider: Elva Theodore RN)1924 (Rate/Dose Change - Provider: Jose Campbell RN)2226 (New Bag - Provider: Sonia Lomax RN) PRN Medication Order 06/05/2021 06/06/2021 06/07/2021 acetaminophen (TYLENOL) tablet 650 mg 650 mg, oral, Every 4 hours PRN, 1st line for pain, fever, fever greater than 38.3 C, Starting on Sat06/06/21 at 2234, Indications: Fever, Pain 2305 (Given - Provider: Sonia Lomax RN) dextrose (D10W) 10% bolus 250 mL(Linked Group 2) 250 mL, intravenous, at 1,000 mL/hr, Administer over 15 Minutes, Every 15 min PRN, blood glucose less than 70 mg/dL and UNABLE to swallow/take PO glucose/juice., Starting on Sat06/06/21 at 2239, After treatment for hypoglycemia, recheck BG followed by treatment every 15 minutes until the BG is greater than 100 mg/dL. Then check BG 1 hour post treatment. If BG is less than 100 mg/dL, repeat Q15 minute BG checks and treatment. Call MD for each episode of hypoglycemia., Indications: hypoglycemic disorder dextrose (GLUTOSE) 40 % gel 15 g(Linked Group 2) 15 g, oral, Every 15 min PRN, low blood sugar, blood glucose less than 70 mg/dL, Starting on Sat06/06/21 at 2239, If patient is alert and able to [...] Call MD for each episode of hypoglycemia. AVIONICS SUPERVISOR STATES GLUTOSE-15 CONTAINS GLUCOSE 40% W/W (50% W/V), Indications: hypoglycemic disorder glucagon injection 1 mg 1 mg, intramuscular, Every 30 min PRN, low blood sugar, blood glucose less than 70 mg/dL AND no IV access AND unable to take PO glucose/juice., Starting on Sat06/06/21 at 2239, After Glucagon is administered, position patient on [...] 1 mL SWFI. Use immediately following reconstitution. ibuprofen (ADVIL,MOTRIN) tablet 600 mg 600 mg, oral, 4 times daily PRN, 2nd line for pain, headaches, 2nd line for headaches, Starting on Sat06/07/21 at 0204, Do not crush, break, or open. 0221 (Given - Provid er: Sonia Lomax RN)0938 (Given - Provider: Genny Sinclair RN) insulin lispro (HumaLOG, ADMELOG) 100 unit/mL injection 0-10 Units 0-10 Units, subcutaneous, As needed, other, to be given with snacks, Starting on Sat06/07/21 at 0154, Blood glucose mg/dL: 149 or less: No insulin 150-199: add 2 unit 200-249: add 4 units 250-299: add 6 units 300-349: add 8 units and notify physician for adjustment of insulin orders. 350-399: add 10 units and notify physician for adjustment of insulin orders. Over 400: Notify physician for adjustment of insulin orders. Do NOT hold for NPO Status, Indications: Diabetes Mellitus 220 (Given - Provid er: Sonia Lomax RN) ondansetron (ZOFRAN) injection 4 mg(Linked Group 3) 4 mg, intravenous, Administer over 2 Minutes, Every 6 hours PRN, nausea, vomiting, if not tolerating PO, Starting on Sat06/06/21 at 2234, Indications: Nausea and Vomiting ondansetron ODT (ZOFRAN-ODT) disintegrating tablet 4 mg(Linked Group 3) 4 mg, oral, Every 6 hours PRN, nausea, vomiting, Starting on Sat06/06/21 at 2234, Indications: Nausea and Vomiting polyethylene glycol (MIRALAX) packet 17 g 17 g, oral, Daily PRN, constipation, Starting on Sat06/06/21 at 2234, Indications: constipation ramelteon (ROZEREM) tablet 8 mg 8 mg, oral, Nightly PRN, sleep, Starting on Sat06/06/21 at 2234, Indications: Sleep-Onset Insomnia sodium chloride 0.9% flush 0.5-20 mL 0.5-20 mL, intra-catheter, As needed, line care, Starting on Sat06/06/21 at 2234, Flush volume based on line type and size. Flush before and after each use. Linked Groups Order Group 1: insulin lispro (HumaLOG, ADMELOG) 100 unit/mL injection 36 Units (CANCELED)Jump to med 36 Units (rounded from 36.1 Units = 0.2 Units/kg ? 180.5 kg), subcutaneous, Every 2 hours, First dose on Sat06/06/21 at 1400, Check blood glucose prior to each administration. Administer when blood glucose is GREATER THAN OR EQUAL TO 250 mg/dL. Notify provider when ketoacidosis resolved (anion gap less than or equal to 16)., Indications: diabetic ketoacidosis Or insulin lispro (HumaLOG, ADMELOG) 100 unit/mL injection 18 Units (CANCELED)Jump to med 18 Units (rounded from 18.05 Units = 0.1 Units/kg ? 180.5 kg), subcutaneous, Every 2 hours, First dose on Sat06/06/21 at 1400, Check blood glucose prior to each administration. Administer when blood glucose is LESS THAN 250 mg/dL. Notify provider when ketoacidosis resolved (anion gap less than or equal to 16)., Indications: diabetic ketoacidosis Group 2: dextrose (GLUTOSE) 40 % gel 15 gJump to med 15 g, oral, Every 15 min PRN, low blood sugar, blood glucose less than 70 mg/dL, Starting on Sat06/06/21 at 2239, If patient is alert and able to [...] Call MD for each episode of hypoglycemia. AVIONICS SUPERVISOR STATES GLUTOSE-15 CONTAINS GLUCOSE 40% W/W (50% W/V), Indications: hypoglycemic disorder Or dextrose (D10W) 10% bolus 250 mLJump to med 250 mL, intravenous, at 1,000 mL/hr, Administer over 15 Minutes, Every 15 min PRN, blood glucose less than 70 mg/dL and UNABLE to swallow/take PO glucose/juice., Starting on Sat06/06/21 at 2239, After treatment for hypoglycemia, recheck BG followed by treatment every 15 minutes until the BG is greater than 100 mg/dL. Then check BG 1 hour post treatment. If BG is less than 100 mg/dL, repeat Q15 minute BG checks and treatment. Call MD for each episode of hypoglycemia., Indications: hypoglycemic disorder Group 3: ondansetron ODT (ZOFRAN-ODT) disintegrating tablet 4 mgJump to med 4 mg, oral, Every 6 hours PRN, nausea, vomiting, Starting on Sat06/06/21 at 2234, Indications: Nausea and Vomiting Or ondansetron (ZOFRAN) injection 4 mgJump to med 4 mg, intravenous, Administer over 2 Minutes, Every 6 hours PRN, nausea, vomiting, if not tolerating PO, Starting on Sat06/06/21 at 2234, Indications: Nausea and Vomiting documented in this encounter Orders Medications Ordered That Néstor ht Not Have Been Administered Count Last Ordered Date First Ordered Date insulin lispro (HumaLOG, ADM ELOG) 100 unit/mL injection 10 Units 1 06/07/2021 dextrose (D10W) 10% bolus 250 mL 2 06/06/19 22 dextrose (GLUTOSE) 40 % gel 15 g 2 06/06/19 22 glucagon injection 1 mg 2 06/06/2021 insulin lispro (HumaLOG, ADM ELOG) 100 unit/mL injection 0-5 Units 1 06/06/2021 ondansetron (ZOFRAN) injection 4 mg 1 06/06 ondansetron ODT (ZOFRAN-ODT) disintegrating tablet 4 mg 1 06/06/2021 polyethylene glycol (MIRALAX) packet 17 g 1 06/06/2021 ramelteon (ROZEREM) tablet 8 mg 1 sodium chloride 0.9% flush 0.5-20 mL 1 05/2021 Lab Orders Without Results Count Last Ordered D ate First Ordered Date POCT GLUCOSE DEVICE 9 06/07/2021 06/06/19 22 HEMOGLOBIN A1C 1 06/06/2021 LIPID PANEL 1 06/06/2021 Diet Count Last Ordered Date First Orde red Date ADULT DISCHARGE DIET 1 06/07/2021 Nursing Count Last Ordered Date First Orde red Date DISCHARGE ACTIVITY 1 06/07/2021 DISCHARGE CALL PROVIDER 9 06/07/2021 DISCHARGE INSTRUCTIONS 2 06/07/2021 ONCBCN NURSING COMMUNICATION [id number] 1 06/06 WEIGH PATIENT 1 06/06/2021 Consult Count Last Ordered Date First Orde red Date CONSULT TO ENDOCRINOLOGY DIABETES 1 022 CORE MEASURES Count Last Ordered Date First Ord ered Date REASON FOR NO VTE PROPHYLAXIS AT ADMISSION 1 06/06/2021 ADT Patient Update Count Last Ordered Date Firs t Ordered Date ED IP DECISION TO ADMIT 1 06/06/2021 documented in this encounter Care Teams Home Health Speech Therapist Relationship Specialty Start Date End Date Jann Burrows MD [address] [place] [address] PCP - General Hematology 03/13/19 10/28/21 Mariana Monique MD [address] [place] [address] Referring Physician Internal Medicine 01/17/20 documented as of this encounter
--- OUTSIDE RECORDS SUMMARY | 2024-05-10 17:14 | XMS_ITS | Encounter Summary ---
Author Organization [facility] Address [address] [place] [address] Phone Care Team Providers Care Stockkeeper Name Role Phone Jann Burrows MD Primary Care Provider [phone] Mariana Monique MD Unavailable [phone] Encounter Details Date Type Department Care Team (Latest Contact Info) Description 06/02/2020 4:20 PM ELEVATOR SERVICE TECHNICIAN Office Visit [facility] Endocrinology Metabolism and Lipid [address] [facility] ([place], [place]) Advanced Medicine 5th [place] [address] [place] [address] Peter Styles Jr., MD [address] [place] [address] Type 2 diabetes mellitus without complication, with long-term current use of insulin (CMS/HCC) (Primary Dx); Diabetic ketoacidosis without coma associated with other specified diabetes mellitus (CMS/HCC) Social History Tobacco Use Types Packs/Day Years Used Date Smoking Tobacco: Never Smokeless Tobacco: Former Chew Quit: 01/13/2019 Alcohol Use Standard Drinks/Week Comments Not Currently 0 (1 standard drink = 0.6 oz pur e alcohol) Sex and Gender Information Value Date Recorded Sex Assigned at Not on file Legal Sex Male 5:01 AM ELEVATOR SERVICE TECHNICIAN Gender Identity Male 12/18/2017 12:38 PM CDT Sexual Orientation Not on file 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 Not on file Not on file documented as of this encounter Last Filed Vital Signs Vital Sign Reading Time Taken Comments Blood Pressure 99/63 06/02/2020 4:15 PM ELEVATOR SERVICE TECHNICIAN Pulse 85 06/02/2020 4:15 PM ELEVATOR SERVICE TECHNICIAN Temperature 36.4 ??C (97.6 ??F) 06/02/2020 4:15 PM CS T Respiratory Rate - - Oxygen Saturation - - Inhaled Oxygen Concentration - - Weight 175.5 kg (387 lb) 06/02/2020 4:15 PM ELEVATOR SERVICE TECHNICIAN Height 200.7 cm (6' 7 ) 06/02/2020 4:15 PM ELEVATOR SERVICE TECHNICIAN Body Mass Index 43.6 06/02/2020 4:15 PM ELEVATOR SERVICE TECHNICIAN documented in this encounter Patient Instructions * Patient Instructions* Peter Styles MD - 06/02/2020 4:20 PM ELEVATOR SERVICE TECHNICIAN 1. Take 130 U500 at 8am and 8 pm. 2. Take 20 Novolog three times daily with meals. 3. We may need to increase both U500 and the Novolog with time. 4. Try this for a week and send us you glucose levels by Pogoplug. 5. You need to have labs today here. 6. You need an eye appointment to look for diabetic retinopathy. ATOR SERVICE TECHNICIAN ATOR SERVICE TECHNICIAN documented in this encounter Progress Notes * Peter Styles MD - 06/02/2020 4:20 PM CST Chief Complaint: Type 2 diabetes with insulin resistance and acanthosis nigricans. History of Present Illness: The patient is measuring his glucoses TID with values of 180-220 in theam (highest values), 80-110 at lunch and 130-160 at supper. His meals are at 8 am, noon and 5 pm. He has not had hypoglycemia. He takes 85 units U500 30 min before breakfast, lunch and supper and 10 units Novolog also with meals. He walks 5 miles daily in his work and is trying on diet. Previous History: The patient is 23 y.o.??male??with PMH of HTN, obesity (BMI > 50), metabolic syndrome, and hx asymmetric septal hypertrophy (last TTE 02/13/2016, follows with Dr. Walton) presenting to the ED 03/02/19 with 1 week duration of bilateral chest tightness,dyspnea,??polyuria, and polydipsia in the setting of tachycardia found to be in diabetic ketoacidosis (BG 591, serum ketones 3.4, AG 22). Admitted to medicine firm 03/03/19. At arrival to ED, chest pain was 8/10.?? He was found to have severe insulin resistance and was discharged on a total daily dose of 270 units. He has acanthosis nigricans on hands, elbows and axillae. Antibodies to insulin and to islet cells are negative and the patient has severe acanthosis nigricans suggesting high insulin levels with a defect iin the insulin receptor pathway. Physical Exam: Constitutional: Vital signs were reviewed [...] 141, potassium 3.9, creatinine 0.9, glucose 94. 7-: A1c 6.8% 06-02-20: A1c 11.5% Assessment and Plan: The patient has severe insulin resistance and type 2 diabetes and a history ofketoacidosis. His poor control today may relate in part to job loss and insurance issues. He now has coverage through his parents. I referred him to ophthalmology since diabetes-related treatment should be covered. Urine microalbumin/creatinine and lipid panel measured today. To continue to make treatment practical, he will take 130 units U500 at 8 am and 8 pm. He will take20 units Novolog with each meal. Total daily dose is 320 units. He will try this for a week and we will adjust the dose upward, especially the meal insulin. He needs more insulin overall. RTC 4 months. ATOR SERVICE TECHNICIAN documented in this encounter Miscellaneous Notes * Addendum Note - Rosalino Graham - 06/02/2020 4:20 PM CSTAddended by: ROSALINO GRAHAM on: 06/02/2020 05:27 PM Modules accepted: Orders ATOR SERVICE TECHNICIAN documented in this encounter Plan of Treatment Not on file documented as of this encounter Procedures Procedure Name Priority Date/Time Associated Diagnosis Comments POCT HEMOGLOBIN A1C Routine 06/02/2020 4 :17 PM ELEVATOR SERVICE TECHNICIAN Diabetic ketoacidosis without coma associated with other specified diabetes mellitus ([facility]/HCC) POCT GLUCOSE Routine 06/02/2020 4:17 PM ELEVATOR SERVICE TECHNICIAN Diabetic ketoacidosis without coma associated with other specified diabetes mellitus ([facility]/HCC) documented in this encounter Results * Albumin Creatinine Ratio, Urine (06/02/2020 5:27 PM ELEVATOR SERVICE TECHNICIAN) Albumin Ur 51.3 mg/L [facility] Comment: Interpretive Data No reference range established. Current interpretive data was last revised 2018. Creatinine Ur 287.1 mg/dL [facility] Comment: Interpretive Data No reference range established. Current interpretive data was last revised 2018. Albumin Creatinine Ratio, Ur 18 1 - 29 mg/g [facility] Urine 06/02/2020 5:27 PM ELEVATOR SERVICE TECHNICIAN 06/02/2020 5:51 PM ELEVATOR SERVICE TECHNICIAN us Peter Styles Jr., MD LAB URINE ORDERABLES Final Result [facility] Department [place] [address] * (ABNORMAL) Lipid panel (06/02/2020 5:27 PM ELEVATOR SERVICE TECHNICIAN) Cholesterol 250(H) 30 - 199 mg/dL [facility] Comment: Interpretive Data Ages < or = [...] Data was last revised on 2017. Triglycerides 1,672(H) <=149 mg/dL [facility] Comment: Hemolyzed; result may be falsely elevated Interpretive Data Ages < or = 9 [...] Data was last revised on 2017. HDL 19(L) >=40 mg/dL [facility] Comment: Interpretive Data Ages < or = [...] on 2017. LDL, calculated See Comment <=129 [facility] Comment: Unable to calculate LDL due to elevated triglyceride. Interpretive Data Ages < or = 19 [...] was last revised on 2017. Non-HDL Cholesterol 231 mg/dL [facility] Comment: Interpretive Data Ages < [...] was last revised on 2017. Chol/HDL ratio 13 [facility] Blood specimen (specimen) 06/02/2020 5:27 PM ELEVATOR SERVICE TECHNICIAN 06/02/2020 5:50 PM ELEVATOR SERVICE TECHNICIAN Narrative [facility] - 06/02/2020 6:38 PM ELEVATOR SERVICE TECHNICIAN These lab test should be done fasting. This means do not eat or drink for at least 12 hours prior to getting your blood drawn. Has the patient been fasting for 8 hours or more?->No non fasting Peter Styles Jr., MD LAB BLOOD ORDERABLES Final Result [facility] [address] [facility] Department [place] [address] * POCT glucose (06/02/2020 4:17 PM ELEVATOR SERVICE TECHNICIAN) Glucose Blood, POC 142 mg/dL Blood specimen (specimen) 06/02/2020 4:17 PM ELEVATOR SERVICE TECHNICIAN us Peter Styles Jr., MD POINT OF CARE TEST OR DERABLES Final Result * POCT hemoglobin A1c (06/02/2020 4:17 PM ELEVATOR SERVICE TECHNICIAN) Hemoglobin A1C, POC 11.5 Blood specimen (specimen) 06/02/2020 4:17 PM ELEVATOR SERVICE TECHNICIAN Peter Styles Jr., MD POINT OF CARE TEST OR DERABLES Final Result documented in this encounter Visit Diagnoses Diagnosis Type 2 diabetes mellitus without complication, with long-term current use of insulin (CMS/HCC) (HCC)- Primary Diabetic ketoacidosis without coma associated with other specified diabetes mellitus (HCC) Type 2 diabetes mellitus without complication, with long-term current use of insulin (CMS/HCC) (HCC) documented in this encounter Care Teams Stockkeeper Relationship Specialty Start Date End Date Jann Burrows MD [address] [place], [place] [id number] PCP - General Hematology 03/13/19 10/28/21 Mariana Monique MD [address] [place] [address] Referring Physician Internal Medicine 01/17/20 documented as of this encounter
--- OUTSIDE RECORDS SUMMARY | 2024-05-10 17:14 | XMS_ITS | Encounter Summary ---
Author Organization [facility] Address [address] [place] [address] Phone Care Team Providers Care Car Customizer Name Role Phone Jann Burrows MD Primary Care Provider [phone] Mariana Monique MD Unavailable [phone] Encounter Details Date Type Department Care Team (Late st Contact Info) Description 01/04/2020 Telephone [facility] Cardiology [address] [facility] Medicine 8th [place] [address] [place] [address] Annika Sutherland Social History Tobacco Use Types Packs/Day Years Used Date Smoking Tobacco: Every Day Cigarettes Smokeless Tobacco: Current Chew Alcohol Use Standard Drinks/Week Comments Yes 24 (1 standard drink = 0.6 oz pu re alcohol) CAGE negative. Case per week. 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 Pt wondering if it would be possible to RSC as a Telephone appt next week? Pt is enrolled in My Chart. Pls call pt advise. * Telephone Encounter - Allyssa Lester BS - 01/06/2020 9:44 AM CDT Pt calling back, states that message said it would be same date and time, note says not same. He was confused. Can you call him to clarify? * Telephone Encounter - Annika Sutherland - 01/04/2020 3:51 PM CDT Left message to reschedule 01/[address] Walton to telemed visit. Day and time would change documented in this encounter Plan of Treatment Not on file documented as of this encounter Visit Diagnoses Not on filedocumented in this encounter Additional Health Concerns Infection Onset Date Last Indicated Resolved Time COVID: Suspected 01/14/2020 01/14/2020 01/14/2020 6:21 PM CDT COVID19 01/15/2020 01/15/2020 01/31/2020 3:06 AM CDT documented as of this encounter Care Teams Car Customizer Relationship Specialty Start Date End Date Jann Burrows MD [address] [place] [address] PCP - General Hematology 03/13/19 10/28/21 Mariana Monique MD [address] [place] [address] Referring Physician Internal Medicine 01/17/20 documented as of this encounter
--- OUTSIDE RECORDS SUMMARY | 2024-05-10 17:14 | XMS_ITS | Encounter Summary ---
Author Organization [facility] Healthcare Address [address] [place] [address] Care Team Providers Care Telecommunications Field Engineer Name Role Phone Jann Burrows MD Primary Care Provider [phone] Mariana Monique MD Unavailable [phone] Encounter Details Date Type Department Care Team (Late st Contact Info) Description 06/02/2020 5:30 PM NAIL STICKER Lab [facility] [address] [place] [id number] Peter Styles Jr., MD [address] [facility] [address] [place] [address] Type 2 diabetes mellitus without complication, with long-term current use of insulin ([facility]) Discharge Disposition: Discharge to home or self care Social History Tobacco Use Types Packs/Day Years Used Date Smoking Tobacco: Never Smokeless Tobacco: Former Chew Quit: 01/13/2019 Alcohol Use Standard Drinks/Week Comments Not Currently 0 (1 standard drink = 0.6 oz pur e alcohol) Sex and Gender Information Value Date Recorded Sex Assigned at Not on file Legal Sex Male 5:01 AM NAIL STICKER Gender Identity Male 12/18/2017 12:38 PM CDT Sexual Orientation Not on file 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 Not on file Not on file documented as of this encounter Discharge Disposition Disposition Code Departure Means Destination Discharge to home or self care documented in this encounter Plan of Treatment Not on file documented as of this encounter Procedures Procedure Name Priority Date/Time Associated Diagnosis Comments ALBUMIN CREATININE RATIO, URINE Routine 06/02/2020 5:27 PM NAIL STICKER Type 2 diabetes mellitus without complication, with long-term current use of insulin ([facility]) CHOLESTEROL, LDL, DIRECT Routine 06/02/2020 5:27 PM NAIL STICKER Type 2 diabetes mellitus without complication, with long-term current use of insulin ([facility]) LIPID PANEL Routine 06/02/2020 5:27 PM NAIL STICKER Type 2 diabetes mellitus without complication, with long-term current use of insulin ([facility]) documented in this encounter Results * Cholesterol, LDL, direct (06/02/2020 5:27 PM NAIL STICKER) LDL Cholesterol, Direct 41 <=129 mg/dL [facility] Comment: Interpretive Data [...] Data was last revised on 2017. Blood specimen (specimen) 06/02/2020 5:27 PM NAIL STICKER 06/02/2020 5:50 PM NAIL STICKER Narrative [facility] - 06/02/2020 7:04 PM NAIL STICKER Cholesterol, LDL, direct reflexed based on Elevated Triglyceride (>400) us Peter Styles Jr., MD LAB BLOOD ORDERABLES Final Result [facility] [place] [address] * (ABNORMAL) Lipid panel (06/02/2020 5:27 PM NAIL STICKER) [facility] Cholesterol 250(H) 30 - 199 mg/dL [facility] Comment: Interpretive Data Ages < or [...] on 2017. Triglycerides 1,672(H) <=149 mg/dL [facility] Comment: Hemolyzed; result may be falsely elevated [...] revised on 2017. HDL 19(L) >=40 mg/dL [facility] Comment: Interpretive Data Ages [...] 2017. LDL, calculated See Comment <=129 [facility] Comment: Unable to calculate LDL due to [...] revised on 2017. Non-HDL Cholesterol 231 mg/dL [facility] Comment: Interpretive Data Ages [...] last revised on 2017. Chol/HDL ratio 13 [facility] Blood specimen (specimen) 06/02/2020 5:27 PM NAIL STICKER 06/02/2020 5:50 PM NAIL STICKER Narrative [facility] - 06/02/2020 6:38 PM NAIL STICKER These lab test should be done fasting. This means do not eat or drink for at least 12 hours prior to getting your blood drawn. Has the patient been fasting for 8 hours or more?->No non fasting us Peter Styles Jr., MD LAB BLOOD ORDERABLES Final Result Performing Organization Address [facility] de Phone Number [facility] Department [place] [address] * Albumin Creatinine Ratio, Urine (06/02/2020 5:27 PM NAIL STICKER) Albumin Ur 51.3 mg/L [facility] Comment: Interpretive Data No reference range established. Current interpretive data was last revised 2018. Creatinine Ur 287.1 mg/dL [facility] Comment: Interpretive Data No reference range established. Current interpretive data was last revised 2018. Albumin Creatinine Ratio, Ur 18 1 - 29 mg/g [facility] Urine 06/02/2020 5:27 PM NAIL STICKER 06/02/2020 5:51 PM NAIL STICKER us Peter Styles Jr., MD LAB URINE ORDERABLES Final Result Performing Organization Address [facility] Co de Phone Number [facility] Department [place] [address] documented in this encounter Visit Diagnoses Diagnosis Type 2 diabetes mellitus without complication, with long-term current use of insulin (CMS/HCC) (HCC) documented in this encounter Care Teams Telecommunications Field Engineer Relationship Specialty Start Date End Date Jann Burrows MD [address] [place] [address] PCP - General Hematology 03/13/19 10/28/21 Mariana Monique MD [address] [place] [address] Referring Physician Internal Medicine 01/17/20 documented as of this encounter
--- OUTSIDE RECORDS SUMMARY | 2024-05-10 17:14 | XMS_ITS | Encounter Summary ---
Author Organization [facility] Address [address] [place] [address] Phone Care Team Providers Care Retail Training Manager Name Role Phone Jann Burrows MD Primary Care Provider [phone] Encounter Details Date Type Department Care Team (Late st Contact Info) Description 12/31/2019 Orders Only [facility] Endocrinology Metabolism and Lipid [address] [facility] Advanced Medicine 5th [place] [address] [place] [phone] Peter Styles Jr., MD [address] [place] [address] Type 2 diabetes mellitus with ketoacidosis without coma, without long-term current use of insulin (CMS/[facility]) (Primary Dx) Social History Tobacco Use Types Packs/Day Years Used Date Smoking Tobacco: Every Day Cigarettes Smokeless Tobacco: Current Chew Alcohol Use Standard Drinks/Week Comments Yes 24 (1 standard drink = 0.6 oz pu re alcohol) CAGE negative. Case per week. 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 Not on file Not on file documented as of this encounter Miscellaneous Notes * Addendum Note - Rosalino Graham - 12/31/2019 2:20 PM CDTAddended by: ROSALINO GRAHAM on: 12/31/2019 05:45 PM Modules accepted: Orders documented in this encounter Plan of Treatment Not on file documented as of this encounter Results * (ABNORMAL) C-peptide (12/31/2019 5:55 PM CDT) C-peptide 11.2(H) 1.1 - 4.4 ng/mL [facility] Blood specimen (specimen) 12/31/2019 5:55 PM CDT 12/31/2019 6:15 PM CDT us Peter Styles Jr., MD LAB BLOOD ORDERABLES Final Result [facility] [place] [address] documented in this encounter Visit Diagnoses Diagnosis Type 2 diabetes mellitus with ketoacidosis without coma, without long-term current use of insulin (HCC)- Primary documented in this encounter Care Teams Retail Training Manager Relationship Specialty Start Date End Date Jann Burrows MD [address] [facility] [address] [place] [address] PCP - General Hematology 03/13/19 10/28/21 documented as of this encounter
--- OUTSIDE RECORDS SUMMARY | 2024-05-10 17:14 | XMS_ITS | Encounter Summary ---
Author Organization [facility] Healthcare Address [address] [place] [address] Care Team Providers Care Bottle Washer Name Role Phone Jann Burrows MD Primary Care Provider [phone] Mariana Monique MD Unavailable [phone] Encounter Details Date Type Department Care Team (Late st Contact Info) Description 10/13/2020 6:00 PM CDT Lab [facility] Advanced Medicine [facility] Advanced Medicine ([facility]) [address] [place] [address] Peter Styles Jr., MD [facility] [address] [place] [address] Essential hypertension; Type 2 diabetes mellitus without complication, with long-term current use of insulin ([facility]); Morbid obesity with BMI of 50.0-59.9, adult ([facility]); Elevated LFTs; Type 2 diabetes mellitus with ketoacidosis without coma, without long-term current use of insulin ([facility]) Discharge Disposition: Discharge to home or self care Social History Tobacco Use Types Packs/Day Years Used Date Smoking Tobacco: Never Smokeless Tobacco: Former Chew Quit: 01/13/2019 Alcohol Use Standard Drinks/Week Comments Not Currently 0 (1 standard drink = 0.6 oz pur e alcohol) Sex and Gender Information Value Date Recorded Sex Assigned at Not on file 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 Gender Identity Male 12/18/2017 12:38 PM CDT Sexual Orientation Not on file 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 Not on file Not on file Not on file documented as of this encounter Discharge Disposition Disposition Code Departure Means Destination Discharge to home or self care documented in this encounter Plan of Treatment Not on file documented as of this encounter Procedures Procedure Name Priority Date/Time Associated Diagnosis Comments LIPID PANEL Routine 10/13/2020 5:58 PM CDT Type 2 diabetes mellitus without complication, with long-term current use of insulin ([facility]) Morbid obesity with BMI of 50.0-59.9, adult ([facility]) COMPREHENSIVE METABOLIC PANEL Routine 10/13/2020 5:58 PM CDT Essential hypertension Type 2 diabetes mellitus without complication, with long-term current use of insulin ([facility]) Morbid obesity with BMI of 50.0-59.9, adult ([facility]) Elevated LFTs documented in this encounter Results * (ABNORMAL) Lipid panel (10/13/2020 5:58 PM CDT) [facility] Signature Cholesterol 194 30 - 199 mg/dL [facility] Comment: Interpretive Data Ages < [...] on 2017. Triglycerides 245(H) <=149 mg/dL [facility] Comment: Interpretive Data Ages [...] on 2017. HDL 34(L) >=40 mg/dL [facility] Comment: Interpretive Data Ages < [...] 2017. LDL, calculated 111 <=129 mg/dL [facility] Comment: Interpretive Data Ages < [...] revised on 2017. Non-HDL Cholesterol 160 mg/dL [facility] Comment: Interpretive Data Ages < or [...] last revised on 2017. Chol/HDL ratio 6 [facility] Blood specimen (specimen) 10/13/2020 5:58 PM CDT 10/13/2020 6:09 PM CDT us Radames Burroughs MD PhD LAB BLOOD ORDERABLE S Final Result [facility] [place] [address] * (ABNORMAL) Comprehensive metabolic panel (10/13/2020 5:58 PM CDT) Sodium 139 135 - 145 mmol/L [facility] Potassium, pl 4.5 3.3 - 4.9 mmol/L [facility] Chloride 102 97 - 110 mmol/L [facility] CO2 28 22 - 32 mmol/L [facility] Anion gap 9 2 - 15 mmol/L [facility] BUN 17 8 - 25 mg/dL [facility] Creatinine 0.92 0.80 - 1.30 mg/dL [facility] Glucose 98 70 - 199 mg/dL [facility] Comment: Interpretive Data Fasting glucose >/= [...] 2017. Calcium 9.8 8.5 - 10.3 mg/dL [facility] Bilirubin, total 0.4 0.1 - 1.2 mg/dL [facility] Protein, pl 8.3 6.5 - 8.5 g/dL [facility] Albumin 5.1(H) 3.5 - 5.0 g/dL [facility] Alk phos 69 40 - 130 Units/L [facility] ALT 39 7 - 55 Units/L [facility] AST 34 10 - 50 Units/L [facility] Blood specimen (specimen) 10/13/2020 5:58 PM CDT 10/13/2020 6:09 PM CDT us Radames Burroughs MD PhD LAB BLOOD ORDERABLE S Final Result [facility] [place] [address] documented in this encounter Visit Diagnoses Diagnosis Essential hypertension Unspecified essential hypertension Type 2 diabetes mellitus without complication, with long-term current use of insulin (CMS/HCC) (HCC) Morbid obesity with BMI of 50.0-59.9, adult (HCC) Elevated LFTs Other abnormal blood chemistry Type 2 diabetes mellitus with ketoacidosis without coma, without long-term current use of insulin (HCC) documented in this encounter Care Teams Bottle Washer Relationship Specialty Start Date End Date Jann Burrows MD [address] [facility] [address] [place] [address] PCP - General Hematology 03/13/19 10/28/21 Mariana Monique MD [address] [place] [address] Referring Physician Internal Medicine 01/17/20 documented as of this encounter
--- OUTSIDE RECORDS SUMMARY | 2024-05-10 17:14 | XMS_ITS | Encounter Summary ---
Author Organization [facility] Address [address] [facility] [address] [place] [address] Phone Care Team Providers Care 4Th Grade Teacher Name Role Phone Jann Burrows MD Primary Care Provider [phone] Mariana Monique MD Unavailable [phone] Reason for Visit * Consultation (Routine) - Closed Specialty Diagnoses / Procedures Referred By Contac t Referred To Contact Sleep Medicine Diagnoses Mood disorder (HCC) Sleep disturbance Abiola Villegas NP [facility] [address] [place] [address] Phone: tel: fax: [facility] [address] [facility] [address] [place] [address] Phone: tel: Referral ID Status Reason Start Date Expiration Date V isits Requested Visits Authorized [id number] Closed Specialty Services Required 06/19/2021 07/19/2022 1 1 Encounter Details Date Type Department Care Team (Late st Contact Info) Description 07/21/2021 8:30 AM CDT Telemedicine [facility] Neuro Sleep [address] 6th [address] [place] [address] Amanda Costello NP [address] [facility] [address] [place] [address] Sleep disturbance (Primary Dx); Morning headache; Morbid obesity (CMS/HCC) (HCC); Mood disorder (CMS/HCC) (HCC); Snoring Social History Tobacco Use Types Packs/Day Years Used Date Smoking Tobacco: Never Smokeless Tobacco: Former Chew Quit: 01/13/2019 Alcohol Use Standard Drinks/Week Comments Not Currently 0 (1 standard drink = 0.6 oz pur e alcohol) Sex and Gender Information Value Date Recorded Sex Assigned at Not on file 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 This not only allows us to make sure you have this diagnosis (and not another sleep disorder), but also allows us to see how severe the condition is and helps guide which treatment may be best for you. In addition, your medical insurance requires a test to confirm a diagnosis before covering the cost of any treatment. We are recommending one (or possibly both) tests to evaluate for possible sleep apnea. Home Sleep Apnea Test (HSAT): We will arrange an appointment for you to burr picker a home sleep testing device, and then you will take it home with you to monitor your sleep. When you pick it up, we will have someone go over how to put it on and how to make sure we get the best data and information when you wear it while you sleepin your own bed. This test can help us confirm a diagnosis of obstructive sleep apnea. However, if this test comes back normal or inconclusive, we usually recommend a follow up test in our sleep center, as home sleep apnea tests can commonly miss obstructive sleep apnea. In lab, attended sleep study or polysomnography (PSG): You will come in overnight at our Sleep Center (next to our clinic on this floor). A registered andtrained histotechnologist supervisor will get you hooked up for the study and be available for any questions or concerns you may have during the night. There is also a sleep medicine physician military communications specialist overnight for the rare instance where there are any issues that require a physician's expertise. The [facility] Center is accredited by the [place] [employer], which ensures that our sleep center meets all standards and safety requirements to ensure patient-centeredhigh quality care. After your sleep test, we will call you or send you a message on THE MELT with results and a management plan. This can take up to a week to get results. What we can find out from a sleep study: JENNI severity: Respiratory disturbance index (RDI) is how many times you have a blockage in your breathing per hour of sleep. Add up all the apneas + hypopneas + respiratory effort related arousals and then divide by hours of sleep. Normal breathing: RDI <5 Mild JENNI: RDI 5-14 Moderate JENNI: RDI 15-30 Severe JENNI: RDI >30 OBSTRUCTIVE SLEEP APNEA (JENNI) Obstructive sleep apnea (JENNI) is a common problem that affects a person???s breathing during sleep.A person with JENNI has times during sleep in which air cannot flow normally into the lungs. The block in airflow (obstruction) is usually caused by the collapse of the soft tissues in the back of the throat (upper airway) and tongue during sleep. Why is it important to treat: JENNI can cause disruption of your sleep. This can lead to many symptoms such as excessive daytime sleepiness, fatigue, headaches, poor attention or memory, having to go to the restroom at night, heartburn, and problems with your mood. It can also cause higher rates of serious medical conditions such as high blood pressure, obesity, heart arrhythmias, heart failure, stroke, and diabetes. TREATMENTS: 1st line and most effective: CPAP therapy Continuous Positive Airway Pressure This treatment involves using a machine next to your bed (CPAP machine) that will provide pressure through a mask during sleep to help you breathe better. You would get fit with a comfortable mask (it can cover your nose, go into your nose, or cover your mouth and nose) and then attach it to a machine that sits next to your bed. You would turn this on and it would then provide pressure to the back of your airway so when you are deep asleep, your snoring and sleep apnea go away. Though this may seem like it would be difficult to tolerate, most patients we prescribe this to feel it helps them sleep and sleep comfortably with it. Another treatment is an oral appliance (mouth guard) to help treat your sleep apnea. This is a device that is custom fit by a dentist that you place in your mouth while you sleep. It works by moving the lower jaw forward during sleep, and opening up the airway in the back of your throat. Oral appliances are typically effective if you have mild to moderate obstructive sleep apnea, but is not usually a good treatment for severe obstructive sleep apnea. Other Recommendations to help with sleep apnea: 1. Weight loss 2. Treating Allergy Symptoms (sinus and nasal congestion) 3. Avoiding sleeping on your back Read more at: www.sleepeducation.org or www.sleepapnea.org Videos Online to Enjoy: 1. Stefan Pinon???Ganesh sleep apnea (5 min) https://www.[employer]ounge.com/watch?v=2WlkSfWn6zF 2. [facility] - Sleep Apnea Treatment (13 min) https://www.[employer].ube.com/watch?v=nKdEbosOlII Tips for Healthy Sleep: The CDC and the [place] Academy of [employer] Medicine recommend adults get at least 7 hours of sleep per a day for optimal health. -Keep a consistent sleep schedule. Try and go to bed and get up at the same time every day, even onweekends or during vacations. -Establish a relaxing bedtime routine and avoid things that can make you stressed or excited beforebedtime. -Avoid using your smart phone, ipads, tablets, or other electronic devices in bed or close to bedtime (stop using them at least 30 minutes before going to sleep). The light from these devices can disrupt your sleep. -Make your bedroom quiet and relaxing. Keep the room at a comfortable, cool temperature. -Don???t eat a large meal before bedtime. If you are hungry at night, eat a light, healthy snack. -Avoid consuming caffeine in the late afternoon or evening. -Avoid consuming alcohol or smoking cigarettes before bedtime. For more information, please visit sleepeducation.com or cdc.gov/sleep documented in this encounter Progress Notes * Amanda Costello NP - 07/21/2021 8:30 AM CDT This was a telemedicine visit with Cristi Nixon alone which took place via Real-time video connection (SureGene, Adhesive.coom or similar). During the visit, I was located at home office in the [facility] and the patient was located home in [place]. The session started at 8:40 am and ended at 9:00 am. In addition to the time spent during the session with the patient, I spent 6 minutes preparing to see the patient, 0 minutes counseling and educating the patient/family/caregiver, 2 minutes ordering medications, tests, or procedures, 0 minutes referring and communicating with other healthcare professional, 10 minutes documenting clinical information in the electronic or other health record, 0 minutes independently interpreting results and communicating the results to the patient/family/caregiver and 0 minutes on care coordination on the day of the visit. Total time spend on encounter on the day of the visit: 38 minutes. The patient has been informed that the visit may not be secure and acknowledged the information. It was explained to the patient they have the option of participating in a telephone or video visitduring the [address] emergency. After being given an opportunity to ask questions about and discuss this type of visit, the patient verbally consented to proceeding with the telephone / video visit. The patient understands that this service replaces an office visit and they may be billed and/or responsible for any applicable copayments. Greater than 50% of any time I spent on the call/video was spent in counseling and/or coordination of care as documented in the note. Patient Name: CRISTI NIXON Medical Record Number (MRN): [id number] Date of (): 1995 Encounter Date: 07/21/2021 [facility] Chief Complaint Cristi Nixon is a 25 y.o. male seen today for consultation regarding JENNI. Referring provider:Abiola Villegas NP HPI 25 y.o. patient with anxiety, depression, T2DM, HTN, metabolic syndrome, morbid obesity who presents for evaluation of daytime sleepiness, difficulty sleeping and snoring. He snores. He has not been witnessed to stop breathing. He does not wake up gasping for air, but does wake up gasping due to panic attacks. He has morning headaches. Sleep is restless. He does not have vivid dreams. He endorses somniloquy but not somnambulism. He does not act out dreams. He has not had symptoms of cataplexy, sleep-related hallucinations, or sleep paralysis. He does not have an uncomfortable sensation in the legs which is relieved by movement/stretching. He is not aware of leg jerks during sleep. On some nights, bedtime is 930pm, rise time is 4-5am, and he takes 5-10 minutes to fall asleep. He wakes up 0-3 times during the night to use the restroom. It takes a few minutes for him to fall backasleep. 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 He does take naps occasionally. Naps are typically short and are refreshing. He feels unrefreshed when he wakes in the morning sometimes. He does not doze unintentionally whilein sedentary situations. Sleepiness has not affected work. He has not dozed off while driving. Off day schedule different:No Use medication to help sleep:No Sleep-related thoughts:No Ruminating thoughts/worries at night:No Use of tablet/phone/TV at night before bed:Yes [place] sleepiness scale today is 2/24, which is normal. No Known Allergies Current Outpatient Medications Medication Sig Dispense Refill ??? blood glucose diagnostic (glucose blood) strip Check blood sugar 4-5 times a day or as directedusing one touch verio 400 each 3 ??? blood-glucose meter kit 1 kit once for 1 dose Patient needs in room for diabetes education 1 each 0 ??? carvediloL (COREG) 25 mg tablet Take 1 tablet (25 mg total) by mouth 2 (two) times a day with meals 180 tablet 3 ??? Dexcom G6 Sensor device Use to continually monitor glucose, change every 10 days 9 each 3 ??? Dexcom G6 Transmitter device Use to continually monitor glucose, change every 90 days 1 each 3 ??? DULoxetine DR (CYMBALTA) 60 mg capsule Take 1 capsule (60 mg total) by mouth daily 90 capsule 1 ??? glucagon 1 mg injection ??? HumuLIN R U-500 500 unit/mL (3 mL) CONCENTRATED pen for injection Inject 0.3 mL (150 Units total) under the skin 3 (three) times a day 30 mL 0 ??? insulin lispro (HumaLOG, ADMELOG) 100 unit/mL pen for injection Inject 24 Units under the skin 3 (three) times a day with meals 30 mL 0 ??? lisinopriL (PRINIVIL,ZESTRIL) 20 mg tablet Take 1 tablet (20 mg total) by mouth daily 90 tablet3 ??? metFORMIN (GLUCOPHAGE) 500 mg tablet Take 2 tablets (1,000 mg total) by mouth 2 (two) times a day with meals 360 tablet 3 ??? mupirocin (BACTROBAN) 2 % ointment Apply topically 3 (three) times a day 30 g 0 ??? NovoLOG 100 unit/mL (3 mL) pen for injection Inject 24 Units under the skin 3 (three) times a day before meals 30 mL 0 ??? pen needle, diabetic (BD Ultra-Fine Ibeth Pen Needle) 32 gauge x 5/32 needle Use to inject insulin BG three times a day as instructed 450 each 3 ??? pen needle, diabetic (BD Ultra-Fine Ibeth Pen Needle) 32 gauge x 5/32 needle USE DIRECTED 3 TIMES A DAY 100 each 3 No current facility-administered medications for this visit. Patient Active Problem List Diagnosis ??? Asymmetric septal hypertrophy (CMS/HCC) (HCC) ??? Essential hypertension ??? Class 3 severe obesity in adult (CMS/HCC) (HCC) ??? Fatty liver ??? Diabetic ketoacidosis without coma associated with type 2 diabetes mellitus (CMS/HCC) (HCC) ??? Acanthosis nigricans ??? Type 2 diabetes mellitus without complication, with long-term current use of insulin (CMS/HCC) (HCC) ??? Sleep disturbance ??? Mood disorder (CMS/HCC) (HCC) Past Medical History: Diagnosis Date ??? Anxiety ??? Depression ??? Diabetes mellitus (HCC) ??? Disordered sleep 10/13/2017 ??? HTN (hypertension) ??? Metabolic syndrome ??? Morbid obesity with BMI of 50.0-59.9, adult (CMS/HCC) (HCC) 07/10/2017 ??? Pneumonia due to COVID-19 virus 01/15/2020 History reviewed. No pertinent surgical history. Family History Problem Relation Age of Onset ??? Diabetes Mother Family history of diabetes mellitus - (Added by TW Conv) ??? 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 Vital Signs Patient reported height: 6' 8 Patient reported weight: 425 lbs Calculated BMI: 46.7 Physical Exam GENERAL EXAM: General: Well developed, well nourished, in no acute distress. HEENT: Normal conjunctivae/sclerae. Tonsils not visualized on exam. Mallampati class 3-4. Macroglossia with scalloped edges. +enlarged neck. Pulmonary: Breathing comfortably on room air without tachypnea; symmetric chest expansion Integumentary System: Facial skin no irritation or breakouts, no rash. NEUROLOGIC EXAM: Mental Status: Alert, oriented, normal spontaneous fluent speech with full comprehension. Cranial Nerves: PERRL, extraocular movements full and conjugate, face symmetric, palate rise and tongue protrusion symmetric. Motor: Normal fine finger movements. No tremor. Note: Exam is limited due to video visit (no telepresenter present) Assessment Assessment Diagnosis Plan 1. Sleep disturbance Ambulatory referral to Sleep Medicine Portable/Home Sleep Study 2. Morning headache Portable/Home Sleep Study 3. Morbid obesity ([facility]) ([facility]) Portable/Home Sleep Study 4. Mood disorder ([facility]) ([facility]) Ambulatory referral to Sleep Medicine 5. Snoring Portable/Home Sleep Study 25 y.o. male with anxiety, depression, T2DM, HTN, metabolic syndrome, morbid obesity who has symptoms suggestive of obstructive sleep apnea including snoring, morning headaches and poor sleep quality. Exam is notable for obesity with BMI>30, a wide neck and a narrow airway as well as macroglossia with scalloped edges which place him at higher risk for JENNI. I discussed the possible diagnosis of obstructive sleep apnea with the patient. We discussed how untreated JENNI can cause unrefreshing sleep and excessive daytime sleepiness. We discussed risks of untreated sleep apnea including its association with hypertension, glucose control, stroke, cardiovascular events, cardiac arrhythmias, and motor vehicle accidents. We also discussed the relationship between untreated JENNI and cognitive function and mood. We discussed diagnostic strategies as well as possible treatment options including CPAP, oral appliances, and surgery. We also discussed how weight loss and sometimes avoiding supine sleep may help treat the condition. He is amenable to evaluation and treatment for JENNI. Plan Home sleep apnea study. Will likely proceed with in-lab study if HSAT is inconclusive. Recommend weight loss with healthy diet and exercise. Avoid driving or operating heavy machinery if drowsy. Sleep hygiene practices including regular bed/rise times, avoiding caffeine prior to bedtime, limiting naps to one hour prior to 3pm, stimulus control, and sleeping in a cool/dark room encouraged. Will plan for follow-up pending results of sleep study. Return TBD after sleep study. Orders Placed This Encounter Procedures ??? Portable/Home Sleep Study Standing Status: Future Standing Expiration Date: 07/21/2022 Order Specific Question: Where should this exam be performed? Answer: [facility] (All Locations) [[id number]] Thank you for allowing me to participate in the care of your patient. If you have any questions, feel free to contact me. Sincerely, Amanda Costello APRN, [address] [facility], Department of Neurology [facility] documented in this encounter Plan of Treatment Not on file documented as of this encounter Visit Diagnoses Diagnosis Sleep disturbance- Primary Unspecified sleep disturbance Morning headache Morbid obesity (HCC) Morbid obesity Mood disorder (HCC) Unspecified episodic mood disorder Snoring Other dyspnea and respiratory abnormality documented in this encounter Orders Outpatient Referral Count Last Ordered Date st Ordered Date AMB REFERRAL TO SLEEP MEDICINE 1 07/21/2021 documented in this encounter Care Teams 4Th Grade Teacher Relationship Specialty Start Date End Date Jann Burrows MD [address] [place] [address] PCP - General Hematology 03/13/19 10/28/21 Mariana Monique MD [address] [place] [address] Referring Physician Internal Medicine 01/17/20 documented as of this encounter
--- OUTSIDE RECORDS SUMMARY | 2024-05-10 17:14 | XMS_ITS | Encounter Summary ---
Author Organization [facility] Address [address] [place] [address] Care Team Providers Care Belt Polisher Name Role Phone Jann Burrows MD Primary Care Provider [phone] Mariana Monique MD Unavailable [phone] Reason for Visit * Reason Onset Date Comments Covid-19 Home Monitoring 01/24/2020 Encounter Details Date Type Department Care Team (Late st Contact Info) Description 01/24/2020 Telephone [facility] Post Acute Care [address] [address] Hilda Linares MA [address] [place] [id number] Covid-19 Home Monitoring Social History Tobacco Use Types Packs/Day Years Used Date Smoking Tobacco: Never Smokeless Tobacco: Former Chew Quit: 01/13/2019 Alcohol Use Standard Drinks/Week Comments Not Currently 0 (1 standard drink = 0.6 oz pur e alcohol) Sex and Gender Information Value Date Recorded Sex Assigned at Not on file 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 By saving a note using this template, the patient will drop off our home monitoring candidate reports for two weeks. If we still consider them to have an active case of COVID-19 at that time, we willreevaluate them for home monitoring. documented in this encounter Plan of Treatment Not on file documented as of this encounter Visit Diagnoses Not on filedocumented in this encounter Additional Health Concerns Infection Onset Date Last Indicated Resolved Time COVID19 01/15/2020 01/15/2020 01/31/2020 3:06 AM CDT documented as of this encounter Care Teams Belt Polisher Relationship Specialty Start Date End Date Jann Burrows MD [address] [place] [address] PCP - General Hematology 03/13/19 10/28/21 Mariana Monique MD [address] [place] [address] Referring Physician Internal Medicine 01/17/20 documented as of this encounter
--- OUTSIDE RECORDS SUMMARY | 2024-05-10 17:14 | XMS_ITS | Encounter Summary ---
Author Organization [facility] Address [address] [place] [address] Phone Care Team Providers Care Cigarette Paper Tester Name Role Phone Jann Burrows MD Primary Care Provider [phone] Mariana Monique MD Unavailable [phone] Reason for Visit * Reason Onset Date Comments Dexcom update 08/17/2021 Encounter Details Date Type Department Care Team (Late st Contact Info) Description 08/17/2021 Documentation [facility] Endocrinology Metabolism and Lipid [address] [place] [address] [place] [address] Denia Albert RN Dexcom update Social History Tobacco Use Types Packs/Day Years Used Date Smoking Tobacco: Never Smokeless Tobacco: Former Chew Quit: 01/13/2019 Alcohol Use Standard Drinks/Week Comments Not Currently 0 (1 standard drink = 0.6 oz pur e alcohol) Sex and Gender Information Value Date Recorded Sex Assigned at Not on file 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 08/16/2021 08/11/2021 documented in this encounter Plan of Treatment Not on file documented as of this encounter Visit Diagnoses Not on filedocumented in this encounter Care Teams Cigarette Paper Tester Relationship Specialty Start Date End Date Jann Burrows MD [address] [place] [address] PCP - General Hematology 03/13/19 10/28/21 Mariana Monique MD [address] [place] [address] Referring Physician Internal Medicine 01/17/20 documented as of this encounter
--- OUTSIDE RECORDS SUMMARY | 2024-05-10 17:14 | XMS_ITS | Encounter Summary ---
Author Organization [facility] Address [address] [place] [address] Phone Care Team Providers Care Mobile Designer Name Role Phone Jann Burrows MD Primary Care Provider [phone] Mariana Monique MD Unavailable [phone] Encounter Details Date Type Department Care Team (Late st Contact Info) Description 05/26/2020 Orders Only [facility] Endocrinology Metabolism and Lipid [address] [facility] 5[address] [place] [address] [place] [address] Peter Styles Jr., MD [address] [place] [address] Diabetic ketoacidosis without coma associated with other [...] on file Legal Sex Male 5:01 AM [employer] Gender Identity Male 12/18/2017 12:38 PM CDT Sexual Orientation Not on file 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 on file Not on file Not on file documented as of this encounter Ordered Prescriptions Prescription Sig Dispense Quantity Refills Last Filled Start Date End Date metFORMIN (GLUCOPHAGE) 500 mg tabletIndications: Diabetic ketoacidosis without coma associated with other specified diabetes mellitus (HCC) Take 2 tablets (1,000 mg total) by mouth 2 (two) times a day with meals 360 tablet 3 05/26/2020 2 documented in this encounter Plan of Treatment Not on file documented as of this encounter Visit Diagnoses Diagnosis Diabetic ketoacidosis without coma associated with other specified diabetes mellitus (HCC) documented in this encounter Discontinued Medications Medication Sig Discontinue Reason Start Date End Da te metFORMIN (GLUCOPHAGE) 500 mg tablet Take 1,000 mg by mouth 2 (two) times a day with meals 05/26/2020 metFORMIN (GLUCOPHAGE) 500 mg tabletIndications:Diabeti c ketoacidosis without coma associated with other specified diabetes mellitus (HCC) Take 2 tablets (1,000 mg total) by mouth 2 (two) times a day with meals Reorder 03/19/2019 05/26/2020 documented as of this encounter Additional Health Concerns Infection Onset Date Last Indicated Resolved Time COVID: Recovered Comment:Added based on recent COVID infection. 01/31/2020 05/19/2020 05/30/2020 3:[address] documented as of this encounter Care Teams Mobile Designer Relationship Specialty Start Date End Date Jann Burrows MD [address] [place] [address] PCP - General Hematology 03/13/19 10/28/21 Mariana Monique MD [address] [place] [address] Referring Physician Internal Medicine 01/17/20 documented as of this encounter
--- OUTSIDE RECORDS SUMMARY | 2024-05-10 17:14 | XMS_ITS | Encounter Summary ---
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 Name Role Phone Mariana Monique MD Unavailable [phone] [facility] Primary Care Provider Reason for Visit * Reason Comments Hyperglycemia * Auth/Cert Specialty Diagnoses / Procedures Referred By Contevans t Referred To Contact Diagnoses Diabetic ketoacidosis without coma associated with diabetes mellitus due to underlying condition (CMS/HCC) (HCC) Procedures ADMISSION Referral ID Status Reason Start Date Expiration Date Visits Re quested Visits Authorized [id number] 1 1 Encounter Details Date Type Department Care Team (Late st Contact Info) Description 11/22/2021 10:35 PM CDT - 11/24/2021 1:05 AM CDT Emergency [facility] Emergency Department [address] [place] [address] Jasbir Cline MD [address] [place] [address] Shae Millan MD [address] [place] [address] Norm Butler MD [address] [place] [address] Mike Graham MD PhD [address] [place] [address] Luis Fernando Dutta MD [address] [place] [address] Diabetic ketoacidosis without coma associated with diabetes mellitus due to underlying condition (CMS/HCC) (HCC) (Primary Dx); Class 3 severe obesity with serious comorbidity and body mass index (BMI) of 45.0 to 49.9 in adult, unspecified obesity type (HCC); Essential hypertension; Hyperglycemia Discharge Disposition: Discharge to a short term hospital for IP Social History Tobacco Use Types Packs/Day Years Used Date Smoking Tobacco: Never Smokeless Tobacco: Former Chew Quit: 01/13/2019 Alcohol Use Standard Drinks/Week Comments Not Currently 0 (1 standard drink = 0.6 oz pur e alcohol) Sex and Gender Information Value Date Recorded Sex Assigned at Not on file 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 Gender Identity Male 12/18/2017 12:38 PM CDT Sexual Orientation Not on file 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 Not on file Not on file Not on file documented as of this encounter Last Filed Vital Signs Vital Sign Reading Time Taken Comments Blood Pressure 129/82 11/24/2021 12:30 AM CDT Pulse 70 11/24/2021 12:30 AM CDT Temperature 36.9 ??C (98.4 ??F) 11/22/2021 10:26 PM C DT Respiratory Rate 18 11/24/2021 12:30 AM CDT Oxygen Saturation 96% 11/24/2021 12:30 AM CDT Inhaled Oxygen Concentration - - Weight 190.5 kg (420 lb) 11/22/2021 10:26 PM CDT Height 205.7 cm (6' 9 ) 11/22/2021 10:26 PM CDT Body Mass Index 45.01 11/22/2021 10:26 PM CDT documented in this encounter Medications [...] day with meals 15 mL 11/27/2021 3 insulin lispro (HumaLOG, ADMELOG) 100 unit/mL vial for injection Inject 26 Units under the skin 3 (three) times a day before meals 2 insulin regular U-500 (HumuLIN R) 500 unit/mL CONCENTRATED vial for injectionIndications: Diabetes Mellitus with Severe Insulin Resistance Inject 120 Units under the skin 3 (three) times a day before meals 2 insulin regular U-500 (HumuLIN R) 500 unit/mL CONCENTRATED vial for injectionIndications: Diabetes Mellitus with Severe Insulin Resistance Inject under the skin 3 (three) times a day with meals 20 mL 11/27/2021 2 insulin regular U-500 (HumuLIN R) 500 unit/mL CONCENTRATED vial for injectionIndications: Diabetes Mellitus with Severe Insulin Resistance Inject 20 unit marking on U-100 syringe (100 Units total) under the skin 3 (three) times a day with meals 20 mL 11/27/2021 3 lisinopriL (PRINIVIL,ZESTRIL) 20 mg tablet Take 1 tablet (20 mg total) by mouth daily 90 tablet 3 06/19/2021 3 metFORMIN (GLUCOPHAGE) 500 mg tablet Take 1,000 mg by mouth 2 (two) times a day with meals 2 rosuvastatin (CRESTOR) 20 mg tablet Take 1 tablet (20 mg total) by mouth nightly 30 tablet 11 11/27/2021 3 documented as of this encounter Discharge Disposition Disposition Code Departure Means Destination Discharge to a short term [facility] for [facility] documented in this encounter H&P Notes * Jef Huerta MD - 11/23/2021 3:35 AM CDT History and Physical Division of Hospital Medicine Name: Geraldo Velez Today: November 23, 2021 : 1995 Age: 25 y.o. male Subjective The patient is a 25 y.o. male with chief complaint of dizziness. HPI: 25M w/ hx of IDDM c/b DKA, HTN who presents with DKA. He was in his usual state of health until 4 days prior to admission when his sister moved in to live with him and increased stress from work. He started having had panic attacks similar to those in the past. He describes his panic attacks as chest aches, non radiating, lasting 3-4 hours, non palpati onal/pleuritic/positional and not worse with foods. They would occur multiple times a day when theycame during periods of stress. These episodes of chest aches were different than prior attacks in that those would last 1 hour while these have been lasting longer. Because of the increased stress, he missed multiple doses of his insulin. One day prior to admission, he only took one dose of his insulin. On the day of admission he took only two doses. The day of admission, he developed lightheadness, dizziness, and blurry vision with standing or walking, polyuria, polydipsia, nausea, and NB/NB vomiting similar to his prior DKA episodes. He checked his sugar and it was an error b/c too high. He subsequently came to the ER. Upon arrival, he was tachycardic to 102 but vitals otherwisestable. Labs were pertinent for DKA with an anion gap and an accucheck of 511. He was started on the squid protocol with improvement in hissugars. To note, he was admitted in 06/2021 for DKA and was transitioned to 100U TID of humalog and 20U of novolog with meals. He also has a history of recurrent infections with ingrown toe-nails. His last toe nail removal was winter. Past Medical History: Diagnosis Date ??? Anxiety ??? Depression ??? Diabetes mellitus (HCC) ??? Disordered sleep 10/13/2017 ??? HTN (hypertension) ??? Metabolic syndrome ??? Morbid obesity with BMI of 50.0-59.9, adult (CMS/HCC) (HCC) 07/10/2017 ??? Pneumonia due to COVID-19 virus 01/15/2020 History reviewed. No pertinent surgical history. (Not in a hospital admission) No Known Allergies Social History Tobacco Use [...] Conv) ??? Obesity Mother Review of Systems Review of Systems Constitutional: Positive for malaise/fatigue. Negative for chills, fever and weight loss. HENT: Negative for congestion, ear pain and sore throat. Eyes: Positive for blurred vision. Negative for pain. Respiratory: Negative for cough and shortness of breath. Cardiovascular: Positive for chest pain. Negative for palpitations, orthopnea, leg swelling and PND. Gastrointestinal: Positive for nausea and vomiting. Negative for abdominal pain, blood in stool, constipation, diarrhea and melena. Genitourinary: Positive for frequency. Negative for dysuria and hematuria. Musculoskeletal: Negative for back pain. Skin: Negative for rash. Neurological: Positive for dizziness. Negative for sensory change, focal weakness, loss of consciousness and headaches. Endo/Heme/Allergies: Does not bruise/bleed easily. Psychiatric/Behavioral: Negative for depression. All other systems reviewed and are negative. Objective Vitals: 24hr Min/Max: Temp Min: 36.9 ??C (98.4 ??F) Max: 36.9 ??C (98.4 ??F) Pulse Min: 92 Max: 102 BP Min: 147/96 Max: 160/88 Resp Min: 18 Max: 18 SpO2 Min: 93 % Max: 97 % Most Recent Vitals: Vitals: 11/23/21 0210 BP: 155/96 Pulse: 96 Resp: Temp: SpO2: 93% No intake or output data in the 24 hours ending 11/23/21 0340 Physical Exam: Physical Exam Vitals reviewed. Constitutional: General: He is not in acute distress. Appearance: He is obese. He is not toxic-appearing. HENT: Head: Normocephalic and atraumatic. Mouth/Throat: Pharynx: Oropharynx is clear. No oropharyngeal exudate or posterior oropharyngeal erythema. Eyes: Pupils: Pupils are equal, round, and reactive to light. Neck: Thyroid: No thyromegaly. Vascular: No JVD. Cardiovascular: Rate and Rhythm: Normal rate and regular rhythm. Heart sounds: Normal heart sounds. No murmur heard. Pulmonary: Effort: Pulmonary effort is normal. No respiratory distress. Breath sounds: Normal breath sounds. Abdominal: General: Bowel sounds are normal. Palpations: Abdomen is soft. Tenderness: There is no abdominal tenderness. There is no guarding. Musculoskeletal: Right lower leg: No edema. Left lower leg: No edema. Lymphadenopathy: Cervical: No cervical adenopathy. Skin: General: Skin is warm and dry. Comments: Erythema, edema, and warmth of bilateral toes Neurological: Mental Status: He is alert and oriented to person, place, and time. Sensory: No sensory deficit. Motor: No weakness. Psychiatric: Mood and Affect: Mood normal. Lab/Diagnostic Review: Recent Results (from the past 24 hour(s)) POCT glucose Collection Time: 11/22/21 10:25 PM Result Value Ref Range Glucose, POC 511 (Critical) 70 - 199 mg/dL Glucose comment 1 Glu2: POCT ketone Collection Time: 11/22/21 11:09 PM Result Value Ref Range Ketones, Blood, POC 3.9 (A) 0.1 - 0.5 mmol/L Potassium, whole blood Collection Time: 11/22/21 11:21 PM Result Value Ref Range Potassium, bld 4.5 3.3 - 4.9 mmol/L Basic metabolic panel Collection Time: 11/22/21 11:21 PM Result Value Ref Range Sodium 129 (L) 135 - 145 mmol/L Potassium, pl See Comment 3.3 - 4.9 mmol/L Chloride 94 (L) 97 - 110 mmol/L CO2 14 (L) 22 - 32 mmol/L Anion gap 21 (H) 2 - 15 mmol/L BUN 19 8 - 25 mg/dL Creatinine 0.82 0.80 - 1.30 mg/dL Glucose 442 (H) 70 - 199 mg/dL Calcium 9.4 8.5 - 10.3 mg/dL Blood gas, venous Collection Time: 11/22/21 11:21 PM Result Value Ref Range pH, Venous 7.34 7.32 - 7.43 PCO2, Venous 30 (L) 40 - 50 mmHg PO2, Venous 127 mmHg HCO3 Venous, Calculated 17 (L) 20 - 30 mmol/L BE, venous -8 mmol/L eGFR Collection Time: 11/22/21 11:21 PM Result Value Ref Range eGFR >90 90 - 130 mL/min/1.73 m2 CBC with auto differential Collection Time: 11/22/21 11:23 PM Result Value Ref Range WBC 5.1 3.8 - 9.9 K/cumm Hgb 18.7 (H) 13.0 - 17.5 g/dL Hct 40.2 38.9 - 50.3 % Plt 283 150 - 400 K/cumm MPV 9.8 9.1 - 12.3 fL RBC 5.04 4.30 - 5.80 M/cumm MCV 79.8 (L) 81.3 - 96.4 fL MCH 37.1 (H) 27.1 - 33.3 pg MCHC 46.5 (H) 32.3 - 35.7 g/dL RDW CV 13.0 11.1 - 14.9 % RDW SD 36.4 35.7 - 48.1 fL NRBC abs 0.00 0.00 - 0.01 K/cumm Differential, auto Collection Time: 11/22/21 11:23 PM Result Value Ref Range Neutrophil abs 2.7 1.7 - 6.5 K/cumm Imm gran abs 0.1 0.0 - 0.1 K/cumm Lymphocyte abs 1.8 0.8 - 3.3 K/cumm Monocyte abs 0.4 0.2 - 0.8 K/cumm Eosinophil abs 0.1 0.0 - 0.5 K/cumm Basophil abs 0.0 0.0 - 0.1 K/cumm Neutrophil pct 52.6 % Imm gran pct 1.0 % Lymphocyte pct 35.7 % Monocyte pct 7.4 % Eosinophil pct 2.7 % Basophil pct 0.6 % POCT glucose Collection Time: 11/23/21 12:17 AM Result Value Ref Range Glucose, POC 395 (H) 70 - 199 mg/dL Glucose comment 1 Glu2: RN/MD Notified POCT glucose Collection Time: 11/23/21 1:58 AM Result Value Ref Range Glucose, POC 349 (H) 70 - 199 mg/dL Glucose comment 1 Glu2: RN/MD Notified COVID-19 Coronavirus RNA Nasopharyngeal Collection Time: 11/23/21 2:07 AM Specimen: Nasopharyngeal Result Value Ref Range COVID-19 RNA Negative Negative I have reviewed the laboratory results. Imaging Results: ECG 12 lead Birgit Rosenberg MD 11/22/2021 11:04 PM ECG 12 lead Date/Time: 11/22/2021 11:00 PM Performed by: Birgit Rosenberg MD Authorized by: China Magana MD Rate: ECG rate: 98 ECG rate assessment: normal Rhythm: Rhythm: sinus rhythm Ectopy: Ectopy: none QRS: QRS intervals: Wide Conduction: Conduction: normal ST segments: ST segments: Abnormal Elevation: II Q waves: Q waves: III, aVF and V3 Other findings: Other findings: poor R wave progression Previous ECG: Previous ECG: Compared to current Date of previous EC01/14/2020 Similarity: No change Interpretation: Interpretation: No significant change Additional diagnostic/procedure review: I have reviewed EKG. My findings are: wandering baseline. No ST-T changes concerning for ACS. Assessment/Plan 25M w/ hx of IDDM c/b DKA, HTN who presents with DKA. * Diabetic ketoacidosis without coma associated with diabetes mellitus due to underlying condition ([facility]) ([facility]) Assessment & Plan SQUID protocol. Endocrine diabetes consult for type 1 diabetes. Cellulitis Assessment & Plan Gets recurrent infected ingrown toe nails despite abx. Does not recall which abx he has received. Doxy+amox x7days. Consider podiatry consult. Angina pectoris ([facility]) Assessment & Plan likely panic attacks over ACS. EKG w/o ST-T changes. -Aspirin. Statin. Bb, ACEi. Pending trop trend. Type 2 diabetes mellitus without complication, with long-term current use of insulin ([facility]) ([facility]) Assessment & Plan pending repeat A1c documented in this encounter Consult Notes * Daily Jasso MD PhD - 11/23/2021 3:08 PM CDTAssociated Order(s): CONSULT TO ENDOCRINOLOGY DIABETES Endocrinology & Diabetes Consult Note Patient: Geraldo Velez, 25 y.o. male (: 1995) Room: [facility] ED2-25/ED2-25 ( ) LOS: 0 Consult Question: DKA (Requesting Provider: Norm Butler MD) Geraldo Velez is a 25 y.o. male with PMH of previously labeled T2DM c/b previous DKA, HTM who presented in DKA after missing one day of insulin. HPI Mr. Velez reported he missed a dose of insulin yesterday. He denied recent illnesses, fevers, chills or other infectious symptoms. He did report a lot of problems with ingrown toenails but has notseen a c programmer or had a foot exam. -Follows with [facility] (Dr. Styles). He has previously been diagnosed with Type 2 diabetes. -Date of diagnosis: Age 21 (2018) after presenting in DKA to the ED 03/02/2019. He was discharge onmetformin and insulin. Later evaluation of C-peptide showed elevated level of 11.2 and negative GAD65 antibodies. Other antibodies were not evaluated. -Family history: Mother has type 1 diabetes -Hospitalization for DM related complications: Has 2 prior presentations for DKA -Regimen: -ACEi/ARB: Lisinopril 20 mg -Anti-Platelet Therapy: none -Insulin Therapy: Humalin U500 150 units TID, Novolog 24 units TID -Oral Therapy: Metformin 1000 mg BID -Last HgbA1c: 10/13/2020 5.6, 06/06/2021 9.9 -BP (Goal <140/90): 120-160/50-90 -Microalbumin/Cr: 06/02/2020 18 -ASCVD Risk Score: unable to calculate due to age -Smoking Status: non-smoker -Foot/Extremity Exam: has not yet had a foot exam -Ophthalmology Exam: has not yet had an eye exam -History of pancreatitis: none Diet: NPO Diet Recent Labs Lab Units 11/23/21 1430 11/23/21 1340 11/23/21 1257 11/23/21 1231 11/23/21 1136 11/23/21 1028 11/23/21 0820 11/23/21 0807 11/23/21 0629 11/23/21 0439 GLUCOSE mg/dL -- -- 255* -- -- -- 194 -- -- 289* POC GLUCOSE MONITOR mg/dL 167 229* -- 270* 275* 221* -- 184 222* -- Lab Results Component Value Date HGBA1C 9.9 (H) 06/06/2021 PMH & PSH He has a past medical history of Anxiety, Depression, Diabetes mellitus ([facility]), Disordered sleep (10/13/2017), HTN (hypertension), Metabolic syndrome, Morbid obesity with BMI of 50.0-59.9, adult (CMS/HCC) (HCC) (07/10/2017), and Pneumonia due to COVID-19 virus (01/15/2020). He has no past surgical history on file. Social & Family History He reports that he has never smoked. He quit smokeless tobacco use about 2 years ago. His smokelesstobacco use included chew. He reports current drug use. Drug: Tobacco. No alcohol history on file. His family history includes Diabetes in his mother; Obesity in his mother. Review of Systems ROS reviewed and negative except as noted in HPI. All other systems negative. Vitals & Physical Exam Pulse: [76-91] 81 BP: (112-160)/(57-103) 125/75 SpO2: [93 %-98 %] 97 % Body mass index is 45.01 kg/m??. I/O this shift: In: 735 [I.V.:735] Out: - Physical Exam Gen : mild distress, alert, appropriate, cooperative, recently eaten food tray present at bedside HENT : normocephalic, atraumatic, face flushed Eyes : conjunctiva clear, anicteric, no proptosis/exophthalmos/lid lag, EOMI Pulm : non-labored, on room air CV : regular rate & rhythm on the monitor Abd : soft, non-tender, non-distended Extr : no edema or cyanosis Skin : severely in-grown toenails on right and left hallux with erythema and swelling present Neuro : alert, speech fluent, comprehension intact, moving all extremities Psych : cooperative, appropriate affect & mood, good insight & judgment Data Medications, labs, imaging, and diagnostics independently reviewed in Epic and commented on below. Lab Results Component Value Date TSH 1.54 12/31/2019 Lab Results Component Value Date CHOL 194 10/13/2020 TRIG 245 (H) 10/13/2020 HDL 34 (L) 10/13/2020 LDLCALC 111 10/13/2020 LDLDIRECT 41 06/02/2020 Lab Results Component Value Date 25HYDROVITD 16 (L) 09/06/2017 CPEPTIDE 11.2 (H) 12/31/2019 AVU93BU 0.00 03/04/2019 Lab Results Component Value Date HGBA1C 9.9 (H) 06/06/2021 Assessment & Plan Geraldo Velez is a 25 y.o. male with PMH of previously labeled T2DM c/b previous DKA, HTM who presented in DKA after missing one day of insulin. # Diabetic ketoacidosis Mr. Velez has been diagnosed with Type 2 diabetes since 2019 due to elevated C-peptide level, negative DARREN-65 antibody, severely obese BMI, and features of insulin resistance on exam (acanthosis nigricans). He requires high doses of insulin daily, and missing even a couple of dose was attributedto this current episode of DKA. He has 2 prior episodes of DKA. It is possible that he has highly ketosis-prone type 2 diabetes. However, type 1 diabetes cannot yet be fully excluded. He may have presented early in development of type 1 diabetes in 2019, and due to confounding with insulin resistance and metabolic syndrome, had not yet developed full pancreatic islet cell depletion. He does have a family history history of type 1 diabetes in his mother, which is another risk factor for developing type 1. He was not screened for other antibodies beyond DARREN-65, or rescreened for DARREN-65 since 2019. In regards to this current presentation, he denied infectious symptoms that could have contributed to developing DKA. He does have very painful, potentially infected appearing in- grown toenails that could be a current/future source of infection. Recommendations: - Insulin drip and DKA protocol - Please treat this patient like an individual with type 1 diabetes who cannot be without basal insulin - We will order a type 1 autoantibody panel - We will order Trulicity 0.75 mg weekly - Consult Podiatry for in-grown toenails and possible infection - When he can eat again, carb consistent diet with no juice and no soda (please write this into theorder) - Please consult the diabetes nurse educator to meet with him Discharge recommendations: - Will need long-term basal bolus insulin with GLP-1 receptor agonist. Final regimen yet to be determined. - Please francis check GLP-1 agents prior to discharge, could consider any of the following dependingon insurance: Byetta/Bydureon (exenatide) Victoza (liraglutide) Lyxumia/Adlyxin (lixisenatide) Tanzeum (albiglutide) Trulicity (dulaglutide) Ozempic (semaglutide) # Mixed hyperlipidemia: His diabetes and elevated cholesterol are indications for statin therapy. - Atorvastatin 10 mg daily now, and on discharge # Essential Hypertension: MARIFER/ARB use in diabetics can prevent the progression of renal disease. - Continue home lisinopril 20 mg daily # Obesity: This complicates all aspects of his care, predisposing him to hyperglycemia and increasing his insulin requirements. 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 > He can call [phone] or [phone] to make an appointment. -- Daily Jasso MD PhD PGY-2 Internal Medicine This patient was seen and staffed with Dr. John Solano (Fellow) and Dr. Adam Fulton (Attending). Contact Info: New Consults: [phone] General Endocrine (Non-Diabetes): [phone] (Check 'Treatment Team' assignment for Diabetes 1 vs 2 vs 3) Diabetes 1: Diabetes Fellow: [phone] Diabetes 2: Ladan Arias, MAIL READER: [phone] Diabetes 3: See Treatment Team Provider (or call Ladan Arias, above) Diabetes After-Hours & Weekends: Diabetes Fellow Cosigned by Adam Fulton MD at 11/23/2021 9:22 PM CDT Associated attestation - Adam Fulton MD - 11/23/2021 9:22 PM CDT I have seen and examined the patient on 11/23/21. I agree with the findings and plan of care as documented in the resident's/fellow's note.. and I spent a total of 60 minutes of which more than 50% of the time was spent in counseling and coordination of care. This time included review of the patient's chart, glucose flowsheet, recent laboratory data and bedside discussion with the patient. Needs evaluations outpatient for sleep apnea and bariatric surgery At this junction, given his insulin requirements, I would likely recommend that we move to U500 in an insulin pump - he is taking 6 injections of SC insulin daily plus the GLP-1 RA which sounds unaffordable from discussing with him Send full T1DM antibody panel Needs to see Podiatry inpatient for likely infected toenails Adam Fulton MD, [facility] Disability Case Managersenior cobol developer Division of Endocrinology, Metabolism & Lipid Research documented in this encounter ED Notes * Lin Stanton RN - 11/23/2021 5:20 PM CDT Called report to [facility]. Report is given to BRYANNA Boyd. Pt is going to ICU room 693. Pt is notified, agrees to go. Pt denies any pain or discomfort at this time. Safety precautions in place. Lin Stanton RN 11/23/21 1816 * Lin Stanton RN - 11/23/2021 5:17 PM CDT Rig number [id number] Lin Stanton RN 11/23/21 1717 * Jasbir Cline MD - 11/23/2021 1:40 AM CDT HPI Chief Complaint Patient presents with ??? Hyperglycemia HPI 25yoM poorly controlled IDDM here with 1 day malaise and fatigue with glucose that that just read as ???high?? . Patient said he is not always adherent to his insulin regimen. Said 3 days ago his glucose was 120, but then did not check it over the next 2 days and did not take his insulin. Today he was at work and was feeling fatigued, was drinking a lot of water and peeing frequently. Checked hisglucose and it was too high to give a read out. Says that he has felt in the past when he has had high sugars. Does have some mild lightheadedness, no fevers or chills, no significant shortness of breath. Does have ingrown toenails of both big toes and the right one has had increasing redness for past day. Patient History: Patient Active Problem List Diagnosis Date Noted ??? DKA, type 1, not at goal ([facility]) ([facility]) 11/24/2021 ??? Diabetic ketoacidosis without coma associated with diabetes mellitus due to underlying condition ([facility]) ([facility]) 11/23/2021 ??? Cellulitis 11/23/2021 ??? Angina pectoris ([facility]) 11/23/2021 ??? Sleep disturbance 12/25/2019 ??? Mood disorder ([facility]) ([facility]) 12/25/2019 ??? Acanthosis nigricans 03/19/2019 ??? Type 2 diabetes mellitus without complication, with long-term current use of insulin (CMS/HCC) (HCC) 03/19/2019 ??? Diabetic ketoacidosis without coma associated with type 2 diabetes mellitus (CMS/HCC) (HCC) 03/03/2019 ??? Fatty liver 10/13/2017 ??? Class 3 severe obesity in adult (CMS/HCC) (HCC) 07/10/2017 ??? Asymmetric septal hypertrophy (CMS/HCC) (HCC) 02/10/2016 ??? Essential hypertension 03/16/2010 Past Medical [...] activity: Defer Alcohol Use: Not on file Social History Social History Narrative Non-smoker : (Added by TW Conv) Non-smoker : (Added by TW Conv) Review of Systems Review of Systems Constitutional: Positive for fatigue. Negative for chills and fever. HENT: Negative for nosebleeds and sore throat. Eyes: Negative for pain and visual disturbance. Respiratory: Negative for chest tightness and shortness of breath. Cardiovascular: Negative for chest pain and palpitations. Gastrointestinal: Positive for abdominal pain, nausea and vomiting. Genitourinary: Negative for dysuria and hematuria. Musculoskeletal: Negative for back pain and neck pain. Skin: Positive for wound. Negative for rash. Neurological: Positive for light-headedness. Negative for syncope, weakness and headaches. Psychiatric/Behavioral: Negative for confusion. Physical Exam ED Triage Vitals Temp Pulse Resp BP SpO2 07/20222511/22/21222511/22/21222511/22/21222511/22/212225 36.9 ??C (98.4 ??F) 102 18 147/96 97 % Temp src Heart Rate Source Patient Position BP Location FiO2 (%) 11/22/21222511/23/21 1543 11/23/21 1543 11/23/21 1543 -- Oral Monitor Lying Left arm Height Height Method Weight Weight Method 11/22/21222511/22/21222511/22/21222511/22/212225 2.057 m (6' 9 ) Stated (!) 190.5 kg (420 lb) Stated Physical Exam Vitals and nursing note reviewed. Constitutional: General: He is not in acute distress. Appearance: Normal appearance. He is well-developed. HENT: Head: Normocephalic and atraumatic. Right Ear: External ear normal. Left Ear: External ear normal. Nose: Nose normal. Mouth/Throat: Mouth: Mucous membranes are dry. Pharynx: Oropharynx is clear. Eyes: Extraocular Movements: Extraocular movements intact. Pupils: Pupils are equal, round, and reactive to light. Cardiovascular: Rate and Rhythm: Regular rhythm. Tachycardia present. Pulses: Normal pulses. Heart sounds: Normal heart sounds. Pulmonary: Effort: Pulmonary effort is normal. No respiratory distress. Breath sounds: Normal breath sounds. Abdominal: General: Abdomen is flat. Palpations: Abdomen is soft. Tenderness: There is no abdominal tenderness. There is no guarding or rebound. Musculoskeletal: General: Normal range of motion. Cervical back: Normal range of motion and neck supple. Skin: General: Skin is warm and dry. Capillary Refill: Capillary refill takes less than 2 seconds. Comments: Ingrown toenails of b/l big toes. Right big toe with redness to the base of toe. Able to move toe normally. No severe TTP, no crepitus. Neurological: General: No focal deficit present. Mental Status: He is alert and oriented to person, place, and time. Psychiatric: Mood and Affect: Mood normal. Behavior: Behavior normal. MDM MDM 25yoM w/ hx of IDDM with overall poor control ingrown toenails of the big toe here with 1 day of malaise, polydipsia and polyuria in the setting of insulin non adherence. Here patient is slightly tachycardic and appears dehydrated with redness over his right big toe that is concerning for cellulitic changes. Glucose in triage was over 500 with ketones greater than 3. Will start fluids, get labs. If his potassium is high enough will start him on a DKA order set this patient has been DKA multipletimes this consistent with that. Will also start abx for patients foot. If pt is able to use squid protocol, will avoid ICU admission but suspect pt will need to come in to floor at minimum. Low concern for sepsis or more severe infection precipitating DKA. Attending Summary of Care 25 yo male with IDDM with moderate success with control, no major complications except chronic bilateral IGT followed by Podiatry. To ED today with elevated BS, > 500 and ++ Ketones. Concern for DKA. Not extremely ill-appearing. Plan-IV, IVF, IV insulin and if qualify, will transition to SQUID protocol and admit to floor. Willalso need Podiatry consult on floor due to appearance of toes, which patients notes is chronic. Attending Attestation for Resident note I, Jasbir Cline MD, have seen and examined this patient on 11/22/2021. I agree with the findings and plan of care as documented in the resident's note unless noted otherwise here. ED Course as of 11/25/21 1126 Time: 11/23 0136 Value: Basic metabolic panel(!): Sodium 129(!) Potassium, pl See Comment Chloride 94(!) CO2 14(!) Anion gap 21(!) BUN 19 Creatinine 0.82 Glucose 442(!) Calcium 9.4 Comment: (Reviewed) By: Jasbir Cline MD Time: 07/21 0704 Comment: I have assumed care of this patient: mild DKA on squid protocol (SQ insulin) awaiting admission. Ingrown toenails on ancef followed by podiatry. GLUCOSE down-trending gap slowly improving. Will continue to follow FSBG, q 4 hours BMP. By: Luis Fernando Dutta MD Time: 11/23 0920 Comment: Spoke with Endocrinology who will see the patient By: Scotty Mcclelland MD Time: 11/23 1005 Comment: Spoke with endocrine - patient was given food. Expect DKA to be slow to resolve. They recommend insulin infusion and ICU admission. By: Luis Fernando Dutta MD Time: 11/23 1045 Comment: Spoke with the medical ICU, will admit patient but currently no beds By: Scotty Mcclelland MD Time: 11/23 1246 Comment: Spoke with the [facility] transfer center, they are working on finding a bed for the patient at [facility]. By: Scotty Mcclelland MD Time: 11/23 4807 Comment: Spoke with nurse Judith at [facility], Dr. Dequan Nunez agrees to accept patient to ICU. Will work on By: Scotty Mcclelland MD Time: 11/23 4202 Comment: Patient accepted at [facility], will transfer By: Scotty Mcclelland MD Time: 11/23 0339 Value: Potassium, whole blood: Potassium, bld 3.6 Comment: (Reviewed) By: Scotty Mcclelland MD Time: 11/23 0178 Comment: ATTENDING TRANSITION OF CARE I, Bo Cohen MD, am taking signout from Tra (Attending). I have reviewed all pertinent vital signs allergies, and history available in the chart. Summary: 25 y.o. male Tra Pending: transfer to [facility] - ambulance Dispo: transfer to [facility] By: Bo Cohen MD Time: 11/23 7322 Comment: Assessed patient after sign out he is well appearing no distress, plan is to continue insulin gtt and transfer [facility] bed. By: Wes Davila MD Time: 11/234 Comment: Still awaiting transport. By: Wes Davila MD Time: 11/24 005 Comment: EMS arrived to ED to transport patient to [facility]. I re-evaluated him just prior to tranport.He is awake, alert, with no acute complaints. VS are wnl. Insulin is still infusing. He is stable for transport at this time. By: Isabel Garcia MD Diabetic ketoacidosis without coma associated with diabetes mellitus due to underlying condition (CMS/HCC) (HCC) Class 3 severe obesity with serious comorbidity and body mass index (BMI) of 45.0 to 49.9 in adult,unspecified obesity type ([facility]) Essential hypertension Hyperglycemia Radames Herrera MD Resident 11/24/2144 Jasbir Cline MD 11/25/21 1127 * Dionna Edwards, BRYANNA - 11/22/2021 10:22 PM CDT Pt arrives to ED w/ complaint of hyperglycemia. Pt has hx of DM2, states his sugar at work was unreadable . Pt endorses PATEL, N/V, dry mouth, increased urination. Pt states he had last dose of 175mL Humalog at 3:30pm ,unable to clarify prescribed dose. BG 511, Ketones 3.9 on arrival. documented in this encounter Miscellaneous Notes * ED Re-evaluation Note - Isabel Garcia MD - 11/23/2021 11:30 PM CDT TRANSITION OF CARE Received patient in sign-out at shift-change from off-going Resident Physician. Summary: Briefly, this is a 25 y.o. male with pmh sig for IDDM and chronic foot wounds presenting with DKA. Started on squid protocol. Seen by Endo who recommended insulin gtt and ICU admit. No bed availability at [facility]. Most recent BMP with AG 16. Accepted for transfer to [facility] ICU. Pending: transport Dispo: transfer ED Course below includes notes from previous care team: ED Course as of 11/24/21 0053 Time: 11/23 0136 Value: Basic metabolic panel(!): Sodium 129(!) Potassium, pl See Comment Chloride 94(!) CO2 14(!) Anion gap 21(!) BUN 19 Creatinine 0.82 Glucose 442(!) Calcium 9.4 Comment: (Reviewed) By: Jasbir Cline MD Time: 11/23 07 Comment: I have assumed care of this patient: mild DKA on squid protocol (SQ insulin) awaiting admission. Ingrown toenails on ancef followed by podiatry. GLUCOSE down-trending gap slowly improving. Will continue to follow FSBG, q 4 hours BMP. By: Luis Fernando Dutta MD Time: 11/23 0692 Comment: Spoke with Endocrinology who will see the patient By: Scotty Mcclelland MD Time: 11/23 1005 Comment: Spoke with endocrine - patient was given food. Expect DKA to be slow to resolve. They recommend insulin infusion and ICU admission. By: Luis Fernando Dutta MD Time: 11/23 2641 Comment: Spoke with the medical ICU, will admit patient but currently no beds By: Scotty Mcclelland MD Time: 11/23 1246 Comment: Spoke with the [facility] transfer center, they are working on finding a bed for the patient at [facility]. By: Scotty Mcclelland MD Time: 11/23 5729 Comment: Spoke with nurse Judith at [facility], Dr. Dequan Enrique agrees to accept patient to ICU. Will work on By: Scotty Mcclelland MD Time: 11/23 1323 Comment: Patient accepted at [facility], will transfer By: Scotty Mcclelland MD Time: 11/23 1329 Value: Potassium, whole blood: Potassium, bld 3.6 Comment: (Reviewed) By: Scotty Mcclelland MD Time: 11/23 7385 Comment: ATTENDING TRANSITION OF CARE I, Bo Cohen MD, am taking signout from Tra (Attending). I have reviewed all pertinent vital signs allergies, and history available in the chart. Summary: 25 y.o. male Tra Pending: transfer to [facility] - ambulance Dispo: transfer to [facility] By: Bo Cohen MD Time: 11/23 5230 Comment: Assessed patient after sign out he is well appearing no distress, plan is to continue insulin gtt and transfer to available [facility]. By: Wes Davila MD Time: 11/23 3383 Comment: Still awaiting transport. By: Wes Davila MD Time: 11/24 0052 Comment: EMS arrived to ED to transport patient to [facility]. I re-evaluated him just prior to tranport.He is awake, alert, with no acute complaints. VS are wnl. Insulin is still infusing. He is stable for transport at this time. By: Isabel Garcia MD Wellborn, Caitlin Brennan, MD Resident 11/25/21826 * ED Re-evaluation Note - Mike Graham MD PhD - 11/23/2021 7:08 PM CDT 7:08 PM Assumed care. In DKA and awaiting t'az to ICU @ [facility]. Past Medical History: Diagnosis Date ??? Anxiety ??? Depression ??? Diabetes mellitus (HCC) ??? Disordered sleep 10/13/2017 ??? HTN (hypertension) ??? Metabolic syndrome ??? Morbid obesity with BMI of 50.0-59.9, adult (CMS/HCC) (HCC) 07/10/2017 ??? Pneumonia due to COVID-19 virus 01/15/2020 History reviewed. No pertinent surgical history. Labs Reviewed BASIC METABOLIC PANEL - Abnormal Result Value Sodium 129 (*) Potassium, pl See Comment Chloride 94 (*) CO2 14 (*) Anion gap 21 (*) BUN 19 Creatinine 0.82 Glucose 442 (*) Calcium 9.4 BLOOD GAS, VENOUS - Abnormal pH, Venous 7.34 PCO2, Venous 30 (*) PO2, Venous 127 HCO3 Venous, Calculated 17 (*) BE, venous -8 CBC WITH AUTO DIFFERENTIAL - Abnormal WBC 5.1 Hgb 18.7 (*) Hct 40.2 Plt 283 MPV 9.8 RBC 5.04 MCV 79.8 (*) MCH 37.1 (*) MCHC 46.5 (*) RDW CV 13.0 RDW SD 36.4 NRBC abs 0.00 BASIC METABOLIC PANEL - Abnormal Sodium 134 (*) Potassium, pl See Comment Chloride 100 CO2 15 (*) Anion gap 19 (*) BUN 17 Creatinine 0.64 (*) Glucose 289 (*) Calcium 8.7 BASIC METABOLIC PANEL - Abnormal Sodium 138 Potassium, pl See Comment Chloride 103 CO2 16 (*) Anion gap 19 (*) BUN 18 Creatinine 0.58 (*) Glucose 194 Calcium 8.4 (*) EGFR - Abnormal eGFR >90 (*) EGFR - Abnormal eGFR >90 (*) BASIC METABOLIC PANEL - Abnormal Sodium 138 Potassium, pl See Comment Chloride 104 CO2 18 (*) Anion gap 16 (*) BUN 17 Creatinine 0.58 (*) Glucose 255 (*) Calcium 9.0 BASIC METABOLIC PANEL - Abnormal Sodium 136 Potassium, pl See Comment Chloride 102 CO2 16 (*) Anion gap 18 (*) BUN 14 Creatinine 0.53 (*) Glucose 136 Calcium 8.7 EGFR - Abnormal eGFR >90 (*) HEMOGLOBIN A1C - Abnormal Hgb A1C 10.9 (*) Estimated Average Glucose 266 EGFR - Abnormal eGFR >90 (*) POCT KETONE, FINGERSTICK - Abnormal Ketones, Blood, POC 3.9 (*) POCT GLUCOSE DEVICE - Abnormal Glucose, POC 511 (*) Glucose comment 1 Glu2: POCT GLUCOSE DEVICE - Abnormal Glucose, POC 395 (*) Glucose comment 1 Glu2: RN/MD Notified POCT GLUCOSE DEVICE - Abnormal Glucose, POC 349 (*) Glucose comment 1 Glu2: RN/MD Notified POCT GLUCOSE DEVICE - Abnormal Glucose, POC 321 (*) Glucose comment 1 Glu2: RN/MD Notified POCT GLUCOSE DEVICE - Abnormal Glucose, POC 222 (*) POCT GLUCOSE DEVICE - Abnormal Glucose, POC 221 (*) POCT GLUCOSE DEVICE - Abnormal Glucose, POC 275 (*) POCT GLUCOSE DEVICE - Abnormal Glucose, POC 270 (*) POCT LACTATE - DEVICE - Abnormal Lactate POC i-STAT <0.5 (*) POCT GLUCOSE DEVICE - Abnormal Glucose, POC 229 (*) COVID-19 CORONAVIRUS RNA COVID-19 RNA Negative Narrative: Is the patient experiencing any symptoms consistent with COVID (eg. Fever, cough, shortness of breath)?->No What is the reason for testing?->Bed placement or semi-private room (Rapid) Interpretive data: Synonyms for this test include: PCR and NAAT . This test is performed using the [employer] Xpert Xpress plus assay. This is a real-time RT-PCR test intended for the qualitative detection of nucleic acid from the SARS-CoV-2. This assay has been reviewed by the FDA for Emergency Use Authorization (EUA). The performance characteristics have been verified by the performing laboratory. Results must be considered in the clinical context and a negative result does not rule out infection. Interpretive data last revised October 04, 2021. Interpretive data: Synonyms for this test include: PCR and NAAT . This test is performed using the [employer] Xpert Xpress plus assay. This is a real-time RT-PCR test intended for the qualitative detection of nucleic acid from the SARS-CoV-2. This assay has been reviewed by the FDA for Emergency Use Authorization (EUA). The performance characteristics have been verified by the performing laboratory. Results must be considered in the clinical context and a negative result does not rule out infection. Interpretive data last revised October 04, 2021. POTASSIUM, WHOLE BLOOD Potassium, bld 4.5 DIFFERENTIAL AUTO Neutrophil abs 2.7 Imm gran abs 0.1 Lymphocyte abs 1.8 Monocyte abs 0.4 Eosinophil abs 0.1 Basophil abs 0.0 Neutrophil pct 52.6 Imm gran pct 1.0 Lymphocyte pct 35.7 Monocyte pct 7.4 Eosinophil pct 2.7 Basophil pct 0.6 EGFR eGFR >90 TROPONIN I HIGH-SENSITIVITY SERIES (BASELINE, 2HR, 4HR, 6HR) Trop I hs <4 TROPONIN I HIGH-SENSITIVITY 2-HOUR Trop I hs <4 Trop I hs delta 0 Trop I hs interp Insignificant TROPONIN I HIGH-SENSITIVITY 4-HOUR Trop I hs <4 Trop I hs delta 0 Trop I hs interp Insignificant TROPONIN I HIGH-SENSITIVITY 6-HOUR Trop I hs <4 Trop I hs delta See Comment Trop I hs pct delta See Comment Trop I hs interp See Comment POTASSIUM, WHOLE BLOOD Potassium, bld 3.6 POTASSIUM, WHOLE BLOOD Potassium, bld 3.8 BASIC METABOLIC PANEL BASIC METABOLIC PANEL POTASSIUM, WHOLE BLOOD POTASSIUM, WHOLE BLOOD LIPID PANEL BASIC METABOLIC PANEL POTASSIUM, WHOLE BLOOD POCT GLUCOSE DEVICE POCT GLUCOSE DEVICE POCT GLUCOSE DEVICE POCT GLUCOSE DEVICE POCT GLUCOSE DEVICE POCT GLUCOSE DEVICE POCT GLUCOSE DEVICE POCT GLUCOSE DEVICE POCT GLUCOSE DEVICE POCT GLUCOSE DEVICE POCT GLUCOSE DEVICE Glucose, POC 184 POCT GLUCOSE DEVICE POCT GLUCOSE DEVICE POCT GLUCOSE DEVICE POCT GLUCOSE DEVICE POCT GLUCOSE DEVICE POCT GLUCOSE DEVICE POCT LACTATE - DEVICE POCT GLUCOSE DEVICE Glucose, POC 167 POCT GLUCOSE DEVICE Glucose, POC 155 POCT GLUCOSE DEVICE Glucose, POC 141 POCT GLUCOSE DEVICE Glucose, POC 138 POCT GLUCOSE DEVICE Glucose, POC 150 POCT GLUCOSE DEVICE POCT GLUCOSE DEVICE POCT GLUCOSE DEVICE POCT GLUCOSE DEVICE No orders to display Vitals: 11/23/21 1600 11/23/21 1630 11/23/21 1700 11/23/21 1730 BP: 126/78 143/74 (!) 150/102 (!) 142/109 BP Location: Patient Position: Pulse: 75 75 86 81 Resp: 18 Temp: TempSrc: SpO2: 96% 97% 98% 96% Weight: Height: PROGRESS NOTES/ED COURSE MDM DIAGNOSES: Diabetic ketoacidosis without coma associated with diabetes mellitus due to underlying condition (CMS/HCC) (HCC) Class 3 severe obesity with serious comorbidity and body mass index (BMI) of 45.0 to 49.9 in adult,unspecified obesity type ([facility]) Essential hypertension Hyperglycemia Mike Graham MD PhD 11/23/2021 7:08 PM Mike Graham MD PhD 11/23/21 1909 * Plan of Care - Hanane Castellon RN - 11/23/2021 4:35 PM CDT Patient accepted for transfer to [facility] after P2P. Nurse given room no and phone number for report and will arrange transportation. * ED Procedure Note - Luis Fernando Dutta MD - 11/23/2021 3:03 PM CDT Associated Order(s): Critical Care Procedure Critical Care Performed by: Luis Fernando Dutta MD Authorized by: Jasbir Cline MD Critical care provider statement: As reflected in the history, physical exam, orders, notes, and/or MDM, I was personally present while the patient was critically ill and provided critical care services for approximately 40 minutes, excluding time involved in separately billable procedures. Critical care was necessary to treat or prevent imminent or life-threatening deterioration of the following condition(s): diabetic ketoacidosis Critical care was time spent by me providing the following: continuous telemetry, serial bedside patient exams and serial laboratory checks glycemic control I provided emergent necessary critical care medicine services to this patient. I admitted this patient to an Intensive Care unit (ICU) and discussed management with the admitting team. I spent time documenting in the medical record. I spent time discussing the management of this critically ill patient with consultants and the medical staff. I ordered and reviewed test results and/or imaging Luis Fernando Boateng MD 11/23/21 1505 * ED Re-evaluation Note - Wes Davila MD - 11/23/2021 2:23 PM CDT ED Re-evaluation TRANSITION OF CARE I, Wes Davila MD, am taking signout and assuming care of this patient. I havereviewed all pertinent vital signs, allergies, and history available in the chart. Summary: 25 y.o. male iddm w/ chronic foot wounds presents in dka on insulin gtt. Pending: transfer Dispo: transfer to [facility] ED Course as of 11/25/21 0646 Time: 11/23 0136 Value: Basic metabolic panel(!): Sodium 129(!) Potassium, pl See Comment Chloride 94(!) CO2 14(!) Anion gap 21(!) BUN 19 Creatinine 0.82 Glucose 442(!) Calcium 9.4 Comment: (Reviewed) By: Jasbir Cline MD Time: 11/23 0604 Comment: I have assumed care of this patient: mild DKA on squid protocol (SQ insulin) awaiting admission. Ingrown toenails on ancef followed by podiatry. GLUCOSE down-trending gap slowly improving. Will continue to follow FSBG, q 4 hours BMP. By: Luis Fernando Dutta MD Time: 11/23 0944 Comment: Spoke with Endocrinology who will see the patient By: Scotty Mcclelland MD Time: 11/23 1005 Comment: Spoke with endocrine - patient was given food. Expect DKA to be slow to resolve. They recommend insulin infusion and ICU admission. By: Luis Fernando Dutta MD Time: 11/23 1045 Comment: Spoke with the medical ICU, will admit patient but currently no beds By: Scotty Mcclelland MD Time: 11/23 1246 Comment: Spoke with the [facility] transfer center, they are working on finding a bed for the patient [facility]. By: Scotty Mcclelland MD Time: 11/23 1307 Comment: Spoke with nurse Judith at [facility], Dr. Dequan Nunez agrees to accept patient to ICU. Will work on By: Scotty Mcclelland MD Time: 11/23 1328 Comment: Patient accepted at [facility], will transfer By: Scotty Mcclelland MD Time: 11/23 1329 Value: Potassium, whole blood: Potassium, bld 3.6 Comment: (Reviewed) By: Scotty Mcclelland MD Time: 11/23 3982 Comment: ATTENDING TRANSITION OF CARE I, Bo Cohen MD, am taking signout from Tra (Attending). I have reviewed all pertinent vital signs allergies, and history available in the chart. Summary: 25 y.o. male Tra Pending: transfer to [facility] - ambulance Dispo: transfer to [facility] By: Bo Cohen MD Time: 11/23 1609 Comment: Assessed patient after sign out he is well appearing no distress, plan is to continue insulin gtt and transfer [facility] bed. By: Wes Davila MD Time: 11/23 2324 Comment: Still awaiting transport. By: Wes Davila MD Time: 11/24 0052 Comment: EMS arrived to ED to transport patient to [facility]. I re-evaluated him just prior to tranport.He is awake, alert, with no acute complaints. VS are wnl. Insulin is still infusing. He is stable for transport at this time. By: Isabel Garcia MD Final diagnoses: Diabetic ketoacidosis without coma associated with diabetes mellitus due to underlying condition (CMS/HCC) (HCC) Class 3 severe obesity with serious comorbidity and body mass index (BMI) of 45.0 to 49.9 in adult,unspecified obesity type ([facility]) Essential hypertension Hyperglycemia Wes Davila MD Resident 11/23/21 8429 Wes Davila MD Resident 11/25/21 0646 * Significant Event - Enrique Baker MD - 11/23/2021 11:01 AM CDT Saw patient as ED boarder for hospitalist f/u. Pt notes feeling he has a PATEL from not sleeping but otherwise ok. He indicates he was doing 140 U500 bid (not 150 tid as previously in documentation), 24lispro tid and metformin 1000 bid. He reports he did have semaglutide for 4 weeks but that ran out and didn't get it refilled. Missed some doses of insulin 2/2 stress. Exam obese, R great toe with erythema mild warmth, ingrown toenail, dry blood at base of toe (per pt unchanged for last few months) Labs notable for DKA, sugars improving Plan was to c/s DM given huge insulin needs and cont SQUID protocol, but appears his gap isn't improving with SQUID and ED talked with DM team who recommended ICU admit/insulin gtt so will defer to Endocrine. ED has changed order from OBS admit to ICU. May benefit from podiatry consult as inpatientas well given appearance of toe. * Plan of Care - Hanane Castellon RN - 11/23/2021 7:40 AM CDT Patient is ER boarder, still meets medical necessity for hospital admission. * ED Re-evaluation Note - Scotty Mcclelland MD - 11/23/2021 6:08 AM CDT ED Re-evaluation TRANSITION OF CARE: I, Scotty Mcclelland MD, am taking signout from dr herrera (resident) and assuming care of thispatient. I have reviewed all pertinent vital signs, allergies, and history available in the chart. Summary: 25 y.o. male here w/ hyperglycemia. Very dehydrated, pt does not know his insulin dosing, ultimately has DKA, squid protocol. Takes a lot of insulin at home. Pending: bed assignment Dispo: pending ED Course as of 11/24/21 0053 Time: 11/23 0136 Value: Basic metabolic panel(!): Sodium 129(!) Potassium, pl See Comment Chloride 94(!) CO2 14(!) Anion gap 21(!) BUN 19 Creatinine 0.82 Glucose 442(!) Calcium 9.4 Comment: (Reviewed) By: Jasbir Cline MD Time: 11/24 703 Comment: I have assumed care of this patient: mild DKA on squid protocol (SQ insulin) awaiting admission. Ingrown toenails on ancef followed by podiatry. GLUCOSE down-trending gap slowly improving. Will continue to follow FSBG, q 4 hours BMP. By: Luis Fernando Dutta MD Time: 11/23 0938 Comment: Spoke with Endocrinology who will see the patient By: Scotty Mcclelland MD Time: 11/23 1005 Comment: Spoke with endocrine - patient was given food. Expect DKA to be slow to resolve. They recommend insulin infusion and ICU admission. By: Luis Fernando Dutta MD Time: 11/23 1045 Comment: Spoke with the medical ICU, will admit patient but currently no beds By: cSotty Mcclelland MD Time: 11/23 1246 Comment: Spoke with the [facility] transfer center, they are working on finding a bed for the patient [facility]. By: Scotty Mcclelland MD Time: 11/23 1307 Comment: Spoke with nurse Judith at [facility], Dr. Dequan Nunez agrees to accept patient to ICU. Will work on By: Scotty Mcclelland MD Time: 11/23 1325 Comment: Patient accepted at [facility], will transfer By: Scotty Mcclelland MD Time: 11/23 1320 Value: Potassium, whole blood: Potassium, bld 3.6 Comment: (Reviewed) By: Scotty Mcclelland MD Time: 11/23 1504 Comment: ATTENDING TRANSITION OF CARE I, Bo Cohen MD, am taking signout from Tra (Attending). I have reviewed all pertinent vital signs allergies, and history available in the chart. Summary: 25 y.o. male Tra Pending: transfer to [facility] - [facility] [facility] By: Bo Cohen MD Time: 11/23 1609 Comment: Assessed patient after sign out he is well appearing no distress, plan is to continue insulin gtt and [facility]. By: Wes Davila MD Time: 11/23 3354 Comment: Still awaiting transport. By: Wes Davila MD Time: 11/24 0052 Comment: EMS arrived to ED to transport patient to [facility]. I re-evaluated him just prior to tranport.He is awake, alert, with no acute complaints. VS are wnl. Insulin is still infusing. He is stable for transport at this time. By: Isabel Garcia MD Final diagnoses: Diabetic ketoacidosis without coma associated with diabetes mellitus due to underlying condition (CMS/HCC) (HCC) Class 3 severe obesity with serious comorbidity and body mass index (BMI) of 45.0 to 49.9 in adult,unspecified obesity type ([facility]) Essential hypertension Hyperglycemia Scotty Mcclelland MD Resident 11/23/21 3272 * Assessment & Plan Note - Jef Hureta MD - 11/23/2021 3:37 AM CDT Associated Problem(s): Angina pectoris (HCC) likely panic attacks over ACS. EKG w/o ST-T changes. -Aspirin. Statin. Bb, ACEi. Pending trop trend. * Assessment & Plan Note - Jef Huerta MD - 11/23/2021 3:36 AM CDT Associated Problem(s): DM (diabetes mellitus), type 2 with complications (CMS/HCC) ([facility]) pending repeat A1c * Assessment & Plan Note - Jef Huerta MD - 11/23/2021 3:35 AM CDT Associated Problem(s): Cellulitis Gets recurrent infected ingrown toe nails despite abx. Does not recall which abx he has received. Doxy+amox x7days. Consider podiatry consult. * Assessment & Plan Note - Jef Huerta MD - 11/23/2021 3:35 AM CDT Associated Problem(s): Diabetic ketoacidosis without coma associated with diabetes mellitus due to underlying condition (CMS/HCC) ([facility]) SQUID protocol. Endocrine diabetes consult for type 1 diabetes. * ED Procedure Note - Jasbir Cline MD - 11/23/2021 1:39 AM CDT Associated Order(s): Critical Care Procedure Critical Care Performed by: Jasbir Cline MD Authorized by: Jasbir Cline MD Critical care provider statement: As reflected in the history, physical exam, orders, notes, and/or MDM, I was personally present while the patient was critically ill and provided critical care services for approximately 75 minutes, excluding time involved in separately billable procedures. Critical care was necessary to treat or prevent imminent or life-threatening deterioration of the following condition(s): acid-base disturbance, acute electrolyte derangement, dehydration, diabetic ketoacidosis, severe metabolic condition and hypo/hyper glycemic control Critical care was time spent by me providing the following: continuous telemetry, continuous pulse oximetry, interpretation of bedside monitors, imaging, and arterial/venous lab draws, serial bedside patient exams, serial laboratory checks and resuscitation with fluids IV insulin gtt initiation of acute renal replacement therapy review prior cultures/records I provided emergent necessary critical care medicine services to this patient. I ordered and reviewed test results and/or imaging studies. I spent time discussing the management of this critically ill patient with consultants and the medical staff. I spent time discussing the management and therapeutic options for this critically ill patient with the patient themselves or with the appropriate designated surrogate decision-maker. I spent time documenting in the medical record. Jasbir Cline MD 11/23/21 0140 * ED Procedure Note - Birgit Rosenberg MD - 11/22/2021 11:00 PM CDTAssociated Order(s): ECG 12 lead Procedure ECG 12 lead Date/Time: 11/22/2021 11:00 PM Performed by: Birgit Rosenberg MD Authorized by: China Magana MD Rate: ECG rate: 98 ECG rate assessment: normal Rhythm: Rhythm: sinus rhythm Ectopy: Ectopy: none QRS: QRS intervals: Wide Conduction: Conduction: normal ST segments: ST segments: Abnormal Elevation: II Q waves: Q waves: III, aVF and V3 Other findings: Other findings: poor R wave progression Previous ECG: Previous ECG: Compared to current Date of previous EC01/14/2020 Similarity: No change Interpretation: Interpretation: No significant change Birgit Rosenberg MD 07/2303 documented in this encounter Plan of Treatment Not on file documented as of this encounter Procedures Procedure Name Priority Date/Time Associated Diagnosis Comments POCT GLUCOSE DEVICE Routine 11/24/2021 1 2:43 AM CDT POCT GLUCOSE DEVICE Routine 11/23/2021 1 1:39 PM CDT POCT GLUCOSE DEVICE Routine 11/23/2021 1 0:46 PM CDT POCT GLUCOSE DEVICE Routine 11/23/2021 9 :28 PM CDT POTASSIUM, WHOLE BLOOD Timed 11/23/2021 8:48 PM CDT EGFR Timed 11/23/2021 8:48 PM CDT LIPID PANEL Timed 11/23/2021 8:48 PM CDT BASIC METABOLIC PANEL Timed 11/23/2021 8:48 PM CDT POCT GLUCOSE DEVICE Routine 11/23/2021 8 :20 PM CDT POCT GLUCOSE DEVICE Routine 11/23/2021 6 :54 PM CDT POCT GLUCOSE DEVICE Routine 11/23/2021 5 :52 PM CDT POCT GLUCOSE DEVICE Routine 11/23/2021 4 :59 PM CDT POTASSIUM, WHOLE BLOOD Timed 11/23/2021 4:52 PM CDT EGFR Timed 11/23/2021 4:52 PM CDT BASIC METABOLIC PANEL Timed 11/23/2021 4:52 PM CDT POCT GLUCOSE DEVICE Routine 11/23/2021 3 :56 PM CDT CA CRITICAL CARE ILL/INJURED PATIENT INIT 30-74 MIN Routine 11/23/2021 3:03 PM CDT POCT GLUCOSE DEVICE Routine 11/23/2021 2 :30 PM CDT POCT GLUCOSE DEVICE Routine 11/23/2021 1 :40 PM CDT POCT LACTATE - DEVICE Routine 11/23/2021 1:06 PM CDT TROPONIN I HIGH-SENSITIVITY 6-HOUR Timed 11/23/2021 12:57 PM CDT POTASSIUM, WHOLE BLOOD Timed 11/23/2021 12:57 PM CDT EGFR Timed 11/23/2021 12:57 PM CDT CHOLESTEROL, LDL, DIRECT Timed 11/23/2021 12:57 PM CDT LIPID PANEL Timed 11/23/2021 12:57 PM CDT BASIC METABOLIC PANEL Timed 11/23/2021 12:57 PM CDT POCT GLUCOSE DEVICE Routine 11/23/2021 1 2:31 PM CDT POCT GLUCOSE DEVICE Routine 11/23/2021 1 1:36 AM CDT POCT GLUCOSE DEVICE Routine 11/23/2021 1 0:28 AM CDT TROPONIN I HIGH-SENSITIVITY 4-HOUR Timed 11/23/2021 8:20 AM CDT EGFR Timed 11/23/2021 8:20 AM CDT BASIC METABOLIC PANEL Timed 11/23/2021 8:20 AM CDT POCT GLUCOSE DEVICE Routine 11/23/2021 8 :07 AM CDT TROPONIN I HIGH-SENSITIVITY 2-HOUR Timed 11/23/2021 6:35 AM CDT POCT GLUCOSE DEVICE Routine 11/23/2021 6 :29 AM CDT EGFR Timed 11/23/2021 4:39 AM CDT BASIC METABOLIC PANEL Timed 11/23/2021 4:39 AM CDT TROPONIN I HIGH-SENSITIVITY SERIES (BASELINE, 2HR, 4HR, 6HR) STAT 11/23/2021 4:13 AM CDT POCT GLUCOSE DEVICE Routine 11/23/2021 4 :12 AM CDT COVID-19 CORONAVIRUS RNA Routine 11/23/2021 2:07 AM CDT POCT GLUCOSE DEVICE Routine 11/23/2021 1 :58 AM CDT CA CRITICAL CARE ILL/INJURED PATIENT ADDL 30 MIN Routine 11/23/2021 1:39 AM CDT CA CRITICAL CARE ILL/INJURED PATIENT INIT 30-74 MIN Routine 11/23/2021 1:39 AM CDT POCT GLUCOSE DEVICE Routine 11/23/2021 1 2:17 AM CDT DIFFERENTIAL AUTO STAT 11/22/2021 11: 23 PM CDT CBC WITH AUTO DIFFERENTIAL STAT 11/22/2021 11:23 PM CDT HEMOGLOBIN A1C STAT 11/22/2021 11:23 PM CDT POTASSIUM, WHOLE BLOOD STAT 11/22/2021 11:21 PM CDT EGFR STAT 11/22/2021 11:21 PM CDT BLOOD GAS, VENOUS STAT 11/22/2021 11: 21 PM CDT BASIC METABOLIC PANEL STAT 11/22/2021 11:21 PM CDT POCT KETONE, FINGERSTICK Routine 11/22/2021 11:09 PM CDT ECG 12-LEAD STAT 11/22/2021 11:00 PM CDT POCT GLUCOSE DEVICE Routine 11/22/2021 1 0:25 PM CDT documented in this encounter Results * (ABNORMAL) POCT glucose (11/24/2021 12:43 AM CDT) Glucose, POC 242(H) 70 - 199 mg/dL [facility] Blood 11/24/2021 12:4 3 AM CDT 11/24/2021 12:43 AM CDT us Mike Graham MD PhD LAB POCT ORDERABLES - DEVICE Final Result [facility] Department [place] [address] * (ABNORMAL) POCT glucose (11/23/2021 11:39 PM CDT) [facility] Signature Glucose, POC 240(H) 70 - 199 mg/dL [facility] Blood 11/23/2021 11:3 9 PM CDT 11/23/2021 11:39 PM CDT us Mike Graham MD PhD LAB POCT ORDERABLES - DEVICE Final Result [facility] Department [place] [address] * (ABNORMAL) POCT glucose (11/23/2021 10:46 PM CDT) Glucose, POC 207(H) 70 - 199 mg/dL [facility] Blood 11/23/2021 10:4 6 PM CDT 11/23/2021 10:46 PM CDT Norm Butler MD LAB POCT ORDERABLES - DEV ICE Final Result Performing Organization Address [facility] Co de Phone Number [facility] Department [place] [address] * (ABNORMAL) POCT glucose (11/23/2021 9:28 PM CDT) Glucose, POC 214(H) 70 - 199 mg/dL [facility] Blood 11/23/2021 9:28 PM CDT 11/23/2021 9:28 PM CDT Norm Butler MD LAB POCT ORDERABLES - DEV ICE Final Result Performing Organization Address [facility] de Phone Number [facility] [place] [address] * (ABNORMAL) Lipid panel (11/23/2021 8:48 PM CDT) Cholesterol 432(H) 30 - 199 mg/dL [facility] Comment: Hemolyzed; result may be falsely elevated [...] 2017. Triglycerides See Comment <=149 mg/dL [facility] Comment: Credited; Hemolyzed Specimen Interpretive Data Ages [...] 2017. HDL 12(L) >=40 mg/dL [facility] Comment: Interpretive Data Ages < or = [...] LAB BLOOD ORDERABLE S Final Result [facility] Department [place] [address] * (ABNORMAL) eGFR (11/23/2021 8:48 PM CDT) eGFR >90(H) 90 - 130 mL/min/1. 73 m2 [facility] Comment: Interpretive Data Reference Interval Normal ?>/= [...] interpretive data was last reviewed 2021. Blood 11/23/2021 8:48 PM CDT 11/23/2021 9:09 PM CDT Scotty Mcclelland MD LAB BLOOD ORDERABLES Final Result Performing Organization Address City/State/[facility] Co de Phone Number [facility] Department [place] [address] * Potassium, whole blood (11/23/2021 8:48 PM CDT) Potassium, bld 4.4 3.3 - 4.9 mmol/L [facility] Blood 11/23/2021 8:48 PM CDT 11/23/2021 8:53 PM CDT Scotty Mcclelland MD LAB BLOOD ORDERABLES Final Result [facility] Department [place] [address] * (ABNORMAL) Basic metabolic panel (11/23/2021 8:48 PM CDT) Sodium 130(L) 135 - 145 mmol/L [facility] Comment:After removal of alie ss lipemia. Potassium, pl See Comment 3.3 - 4.9 mmol/L [facility] Comment: Credited; Hemolyzed Specimen After removal of gross lipemia. Chloride 95(L) 97 - 110 mmol/L [facility] Comment:After removal of alie ss lipemia. CO2 19(L) 22 - 32 mmol/L [facility] Comment: Hemolyzed; result may be falsely decreased After removal of gross lipemia. Anion gap 16(H) 2 - 15 mmol/L [facility] Comment:After removal of alie ss lipemia. BUN 12 8 - 25 mg/dL [facility] Comment:After removal of alie ss lipemia. Creatinine 0.35(L) 0.80 - 1.30 mg/dL [facility] Comment:After removal of alie ss lipemia. Glucose 166 70 - 199 mg/dL [facility] Comment: After removal of gross lipemia. Interpretive Data [...] interpretive data was last revised 2017. Calcium 8.3(L) 8.5 - 10.3 mg/dL [facility] Comment:After removal of alie ss lipemia. Blood 11/23/2021 8:48 PM CDT 11/23/2021 9:09 PM CDT us Scotty Mcclelland MD LAB BLOOD ORDERABLES Final Result Performing Organization Address City/[facility]/ZIP Co de Phone Number [facility] [place] [address] * POCT glucose (11/23/2021 8:20 PM CDT) Glucose, POC 188 70 - 199 mg/dL [facility] Blood 11/23/2021 8:20 PM CDT 11/23/2021 8:20 PM CDT us Norm Butler MD LAB POCT ORDERABLES - DEV ICE Final Result Performing Organization Address [facility] Co de Phone Number [facility] [place] [address] * POCT glucose (11/23/2021 6:54 PM CDT) Glucose, POC 150 70 - 199 mg/dL [facility] Blood 11/23/2021 6:54 PM CDT 11/23/2021 6:54 PM CDT us Norm Butler MD LAB POCT ORDERABLES - DEV ICE Final Result Performing Organization Address [facility] Co de Phone Number [facility] [place] [address] * POCT glucose (11/23/2021 5:52 PM CDT) Glucose, POC 138 70 - 199 mg/dL [facility] Blood 11/23/2021 5:52 PM CDT 11/23/2021 5:52 PM CDT us Norm Butler MD LAB POCT ORDERABLES - DEV ICE Final Result Performing Organization Address City/[facility]/ZIP Co de Phone Number [facility] Department [place] [address] * POCT glucose (11/23/2021 4:59 PM CDT) Pathologist [facility] Glucose, POC 141 70 - 199 mg/dL [facility] Blood 11/23/2021 4:59 PM CDT 11/23/2021 4:59 PM CDT Norm Butler MD LAB POCT ORDERABLES - DEV ICE Final Result [facility] Department [place] [address] * (ABNORMAL) eGFR (11/23/2021 4:52 PM CDT) Pathologist [facility] eGFR >90(H) 90 - 130 mL/min/1. 73 m2 [facility] Comment: Interpretive Data Reference Interval Normal ?>/= [...] interpretive data was last reviewed 2021. Blood 11/23/2021 4:52 PM CDT 11/23/2021 5:10 PM CDT Scotty Mcclelland MD LAB BLOOD ORDERABLES Final Result Performing Organization Address City/[facility] Co de Phone Number [facility] [place] [address] * Potassium, whole blood (11/23/2021 4:52 PM CDT) Potassium, bld 3.8 3.3 - 4.9 mmol/L [facility] Blood 11/23/2021 4:52 PM CDT 11/23/2021 5:02 PM CDT Scotty Mcclelland MD LAB BLOOD ORDERABLES Final Result Performing Organization Address [facility] de Phone Number [facility] Department [place] [address] * (ABNORMAL) Basic metabolic panel (11/23/2021 4:52 PM CDT) Pathologist [facility] Sodium 136 135 - 145 mmol/L [facility] Comment:After removal of alie ss lipemia. Potassium, pl See Comment 3.3 - 4.9 mmol/L [facility] Comment: Credited; Hemolyzed Specimen After removal of gross lipemia. Chloride 102 97 - 110 mmol/L [facility] Comment:After removal of alie ss lipemia. CO2 16(L) 22 - 32 mmol/L [facility] Comment:After removal of alie ss lipemia. Anion gap 18(H) 2 - 15 mmol/L [facility] Comment:After removal of alie ss lipemia. BUN 14 8 - 25 mg/dL [facility] Comment:After removal of alie ss lipemia. Creatinine 0.53(L) 0.80 - 1.30 mg/dL [facility] Comment:After removal of alie ss lipemia. Glucose 136 70 - 199 mg/dL [facility] Comment: After removal of gross lipemia. Interpretive Data [...] interpretive data was last revised 2017. Calcium 8.7 8.5 - 10.3 mg/dL [facility] Comment:After removal of alie ss lipemia. Blood 11/23/2021 4:52 PM CDT 11/23/2021 5:10 PM CDT Scotty Mcclelland MD LAB BLOOD ORDERABLES Final Result Performing Organization Address [facility] Co de Phone Number [facility] Department [place] [address] * POCT glucose (11/23/2021 3:56 PM CDT) [facility] Signature Glucose, POC 155 70 - 199 mg/dL [facility] Blood 11/23/2021 3:56 PM CDT 11/23/2021 3:56 PM CDT Norm Butler MD LAB POCT ORDERABLES - DEV ICE Final Result Performing Organization Address [facility] Co de Phone Number [facility] Department [place] [address] * CA CRITICAL CARE ILL/INJURED PATIENT INIT 30-74 MIN (11/23/2021 3:03 PM CDT) Narrative Luis Fernando Dutta MD - 11/23/2021 3:03 PM CDT Luis Fernando Dutta MD ? 11/23/2021 ??3:05 PM Critical Care Performed by: Luis Fernando Dutta MD Authorized by: Jasbir Cline MD Critical care provider statement: As reflected in the history, physical exam, orders, notes, and/or MDM, I was personally present while the patient was critically ill and provided critical care services for approximately 40 minutes, excluding time involved in separately billable procedures. ??Critical care was necessary to treat or prevent imminent or life-threatening deterioration of the following condition(s): ?? diabetic ketoacidosis ??Critical care was time spent by me providing the following: ? continuous telemetry, serial bedside patient exams and serial laboratory checks ?? glycemic control ?? I provided emergent necessary critical care medicine services to this patient. I admitted this patient to an Intensive Care unit (ICU) and discussed management with the admitting team. I spent time documenting in the medical record. I spent time discussing the management of this critically ill patient with consultants and the medical staff. I ordered and reviewed test results and/or imaging studies. us Jasbir Cline MD IN CLINIC/BEDSIDE ORDERAB LES Final Result * POCT glucose (11/23/2021 2:30 PM CDT) Glucose, POC 167 70 - 199 mg/dL [facility] Blood 11/23/2021 2:30 PM CDT 11/23/2021 2:30 PM CDT Norm Butler MD LAB POCT ORDERABLES - DEV ICE Final Result Performing Organization Address [facility] Co de Phone Number [facility] Department [place] [address] * (ABNORMAL) POCT glucose (11/23/2021 1:40 PM CDT) Glucose, POC 229(H) 70 - 199 mg/dL [facility] Blood 11/23/2021 1:40 PM CDT 11/23/2021 1:40 PM CDT Norm Butler MD LAB POCT ORDERABLES - DEV ICE Final Result [facility] Department [place] [address] * (ABNORMAL) POCT lactate (11/23/2021 1:06 PM CDT) Pathologist [facility] Lactate POC i-STAT <0.5(L) 0.7 - 2.2 mmol/L [facility] Blood 11/23/2021 1:06 PM CDT 11/23/2021 1:06 PM CDT us Norm Butler MD LAB POCT ORDERABLES - DEV ICE Final Result Performing Organization Address City/State/[facility] Co de Phone Number [facility] Department [place] [address] * Cholesterol, LDL, direct (11/23/2021 12:57 PM CDT) Pathologist [facility] LDL Cholesterol, Direct 15 <=129 mg/dL [facility] Comment: Interpretive Data Ages < or = [...] Data was last revised on 2017. Blood 11/23/2021 12:5 7 PM CDT 11/23/2021 4:22 PM CDT Narrative [facility] - 11/24/2021 8:10 AM CDT Cholesterol, LDL, direct reflexed based on Elevated Triglyceride (>400) us Norm Butler MD LAB BLOOD ORDERABLES Melina castorena Result [facility] Department [place] [address] * (ABNORMAL) Lipid panel (11/23/2021 12:57 PM CDT) Cholesterol 98 30 - 199 mg/dL [facility] Comment: Reviewed Interpretive Data Ages < or = 19 [...] Data was last revised on 2017. Triglycerides 576(H) <=149 mg/dL [facility] Comment: Hemolyzed; result may be falsely elevated [...] Data was last revised on 2017. HDL 11(L) >=40 mg/dL [facility] Comment: Interpretive Data Ages < or = [...] on 2017. LDL, calculated See Comment <=129 [facility] Comment: Unable to calculate LDL due to [...] was last revised on 2017. Non-HDL Cholesterol 87 mg/dL [facility] Comment: Interpretive Data Ages < or = [...] was last revised on 2017. Chol/HDL ratio 9 [facility] Blood 11/23/2021 12:5 7 PM CDT 11/23/2021 1:08 PM CDT us Norm Butler MD LAB BLOOD ORDERABLES Edit ed Result - Final [facility] Department [place] [address] * (ABNORMAL) eGFR (11/23/2021 12:57 PM CDT) eGFR >90(H) 90 - 130 mL/min/1. 73 m2 [facility] Comment: Interpretive Data Reference Interval Normal ?>/= [...] interpretive data was last reviewed 2021. Blood 11/23/2021 12:5 7 PM CDT 11/23/2021 1:08 PM CDT Scotty Mcclelland MD LAB BLOOD ORDERABLES Final Result Performing Organization Address City/[facility]/ZIP Co de Phone Number [facility] [place] [place] [address] * Potassium, whole blood (11/23/2021 12:57 PM CDT) Potassium, bld 3.6 3.3 - 4.9 mmol/L [facility] Blood 11/23/2021 12:5 7 PM CDT 11/23/2021 1:08 PM CDT Scotty Mcclelland MD LAB BLOOD ORDERABLES Final Result Performing Organization Address City/[facility] Co de Phone Number [facility] Department [place] [place] [address] * (ABNORMAL) Basic metabolic panel (11/23/2021 12:57 PM CDT) Sodium 138 135 - 145 mmol/L [facility] Comment:After removal of alie ss lipemia. Potassium, pl See Comment 3.3 - 4.9 mmol/L [facility] Comment:Credited; Hemolyzed Specimen Chloride 104 97 - 110 mmol/L [facility] Comment:After removal of alie ss lipemia. CO2 18(L) 22 - 32 mmol/L [facility] Comment:After removal of alie ss lipemia. Anion gap 16(H) 2 - 15 mmol/L [facility] Comment:After removal of alie ss lipemia. BUN 17 8 - 25 mg/dL [facility] Comment:After removal of alie ss lipemia. Creatinine 0.58(L) 0.80 - 1.30 mg/dL [facility] Comment:After removal of alie ss lipemia. Glucose 255(H) 70 - 199 mg/dL [facility] Comment: After removal of gross lipemia. Interpretive Data [...] 2017. Calcium 9.0 8.5 - 10.3 mg/dL [facility] Comment:After removal of alie ss lipemia. Blood 11/23/2021 12:5 7 PM CDT 11/23/2021 1:08 PM CDT Scotty Mcclelland MD LAB BLOOD ORDERABLES Final Result [facility] Department [place] [address] * Troponin I high-sensitivity 6-hour (11/23/2021 12:57 PM CDT) Trop I hs <4 <=35 ng/L [facility] Comment: Interpretive Data For further hscTnI resources including the diagnostic algorithm and an aid in interpretation, copy and paste this link: https://bjhlab.testcatalog.org/show/hsTrop-1 Current Interpretive Data last revised 2019. Trop I hs delta See Comment ng/L [facility] Comment:Inappropriate collec tion time to report a delta. Trop I hs pct delta See Comment % [facility] Comment:Inappropriate collec tion time to report a delta. Trop I hs interp See Comment [facility] Comment:Inappropriate collec tion time to report a delta. Blood 11/23/2021 12:5 7 PM CDT 11/23/2021 1:08 PM CDT Radames Herrera MD LAB BLOOD ORDERABLES Melina l Result Performing Organization Address City/[facility] Co de Phone Number [facility] [place] [place] [address] * (ABNORMAL) POCT glucose (11/23/2021 12:31 PM CDT) Glucose, POC 270(H) 70 - 199 mg/dL [facility] Blood 11/23/2021 12:3 1 PM CDT 11/23/2021 12:31 PM CDT Norm Butler MD LAB POCT ORDERABLES - DEV ICE Final Result Performing Organization Address [facility] Co de Phone Number [facility] [place] [place] [address] * (ABNORMAL) POCT glucose (11/23/2021 11:36 AM CDT) Glucose, POC 275(H) 70 - 199 mg/dL [facility] Blood 11/23/2021 11:3 6 AM CDT 11/23/2021 11:36 AM CDT Norm Butler MD LAB POCT ORDERABLES - DEV ICE Final Result Performing Organization Address City/[facility] Co de Phone Number [facility] [place] [address] * (ABNORMAL) POCT glucose (11/23/2021 10:28 AM CDT) Glucose, POC 221(H) 70 - 199 mg/dL [facility] Blood 11/23/2021 10:2 8 AM CDT 11/23/2021 10:28 AM CDT us Norm Butler MD LAB POCT ORDERABLES - DEV ICE Final Result Performing Organization Address [facility] Co de Phone Number [facility] Department [place] [address] * (ABNORMAL) eGFR (11/23/2021 8:20 AM CDT) eGFR >90(H) 90 - 130 mL/min/1. 73 m2 [facility] Comment: Interpretive Data Reference Interval Normal ?>/= [...] interpretive data was last reviewed 2021. Blood 11/23/2021 8:20 AM CDT 11/23/2021 8:45 AM CDT us Radames Herrera MD LAB BLOOD ORDERABLES Melina l Result [facility] Department [place] [address] * Troponin I high-sensitivity 4-hour (11/23/2021 8:20 AM CDT) Trop I hs <4 <=35 ng/L [facility] Comment: Interpretive Data For further hscTnI resources including the diagnostic algorithm and an aid in interpretation, copy and paste this link: [email or web address].testcatalog.org/show/hsTrop-1 Current Interpretive Data last revised 2019. Trop I hs delta 0 ng/L [facility] Trop I hs interp Insignificant [facility] Blood 11/23/2021 8:20 AM CDT 11/23/2021 8:45 AM CDT Radames Herrera MD LAB BLOOD ORDERABLES Melina l Result Performing Organization Address [facility] de Phone Number [facility] Department [place] [address] * (ABNORMAL) Basic metabolic panel (11/23/2021 8:20 AM CDT) Pathologist [facility] Sodium 138 135 - 145 mmol/L [facility] Comment:After removal of alie ss lipemia. Potassium, pl See Comment 3.3 - 4.9 mmol/L [facility] Comment: Credited; Hemolyzed Specimen After removal of gross lipemia. Chloride 103 97 - 110 mmol/L [facility] Comment:After removal of alie ss lipemia. CO2 16(L) 22 - 32 mmol/L [facility] Comment:After removal of alie ss lipemia. Anion gap 19(H) 2 - 15 mmol/L [facility] Comment:After removal of alie ss lipemia. BUN 18 8 - 25 mg/dL [facility] Comment:After removal of alie ss lipemia. Creatinine 0.58(L) 0.80 - 1.30 mg/dL [facility] Comment:After removal of alie ss lipemia. Glucose 194 70 - 199 mg/dL [facility] Comment: After removal of gross lipemia. Interpretive Data [...] interpretive data was last revised 2017. Calcium 8.4(L) 8.5 - 10.3 mg/dL [facility] Comment:After removal of alie ss lipemia. Blood 11/23/2021 8:20 AM CDT 11/23/2021 8:45 AM CDT Radames Herrera MD LAB BLOOD ORDERABLES Melina l Result [facility] Department [place] [address] * POCT glucose (11/23/2021 8:07 AM CDT) Glucose, POC 184 70 - 199 mg/dL [facility] Blood 11/23/2021 8:07 AM CDT 11/23/2021 8:07 AM CDT Shae Millan MD LAB POCT ORDERABLES - ARJUN CE Final Result Performing Organization Address City/[facility]/ZIP Co de Phone Number [facility] Department [place] [address] * Troponin I high-sensitivity 2-hour (11/23/2021 6:35 AM CDT) Trop I hs <4 <=35 ng/L [facility] Comment: Interpretive Data For further [facility] resources including the diagnostic algorithm and an aid in interpretation, copy and paste this link: [email or web address]/show/[email or web address] Current Interpretive Data last revised 2019. Trop I hs delta 0 ng/L [facility] Trop I hs interp Insignificant [facility] Blood 11/23/2021 6:35 AM CDT 11/23/2021 6:40 AM CDT us Radames Herrera MD LAB BLOOD ORDERABLES Melina l Result Performing Organization Address [facility] Co de Phone Number [facility] Department [place] [address] * (ABNORMAL) POCT glucose (11/23/2021 6:29 AM CDT) Glucose, POC 222(H) 70 - 199 mg/dL [facility] Blood 11/23/2021 6:29 AM CDT 11/23/2021 6:29 AM CDT us Shae Millan MD LAB POCT ORDERABLES - ARJUN CE Final Result Performing Organization Address [facility] de Phone Number [facility] [place] [address] * (ABNORMAL) eGFR (11/23/2021 4:39 AM CDT) eGFR >90(H) 90 - 130 mL/min/1. 73 m2 [facility] Comment: Interpretive Data Reference Interval Normal ?>/= [...] Inclusion of Race in Diagnosing Kidney Disease, JONASSN 2020). The CKD-EPI equation should not be used for patients with unstable renal function and has not been validated in children and those over 70. Current interpretive data was last reviewed 2021. Blood 11/23/2021 4:39 AM CDT 11/23/2021 4:51 AM CDT us Radames Herrera MD LAB BLOOD ORDERABLES Melina castorena Result [facility] Department [place] [address] * (ABNORMAL) Basic metabolic panel (11/23/2021 4:39 AM CDT) Sodium 134(L) 135 - 145 mmol/L [facility] Comment:After removal of alie ss lipemia. Potassium, pl See Comment 3.3 - 4.9 mmol/L [facility] Comment:Credited; Hemolyzed Specimen Chloride 100 97 - 110 mmol/L [facility] Comment:After removal of alie ss lipemia. CO2 15(L) 22 - 32 mmol/L [facility] Comment:After removal of alie ss lipemia. Anion gap 19(H) 2 - 15 mmol/L [facility] Comment:After removal of alie ss lipemia. BUN 17 8 - 25 mg/dL [facility] Comment:After removal of alie ss lipemia. Creatinine 0.64(L) 0.80 - 1.30 mg/dL [facility] Comment:After removal of alie ss lipemia. Glucose 289(H) 70 - 199 mg/dL [facility] Comment: After removal of gross lipemia. Interpretive Data [...] interpretive data was last revised 2017. Calcium 8.7 8.5 - 10.3 mg/dL [facility] Comment:After removal of alie ss lipemia. Blood 11/23/2021 4:39 AM CDT 11/23/2021 4:51 AM CDT Radames Herrera MD LAB BLOOD ORDERABLES Melina l Result Performing Organization Address [facility] Co de Phone Number [facility] Department [place] [address] * Troponin I high-sensitivity series (baseline, 2hr, 4hr, 6hr) (11/23/2021 4:13 AM CDT) [facility] Trop I hs <4 <=35 ng/L [facility] Comment: Interpretive Data For further hscTnI resources including the diagnostic algorithm and an aid in interpretation, copy and paste this link: [email or web address].[email or web address]/show/[email or web address] Current Interpretive Data last revised 2019. Blood 11/23/2021 4:13 AM CDT 11/23/2021 4:27 AM CDT Radames Herrera MD LAB BLOOD ORDERABLES Melina l Result Performing Organization Address [facility] Co de Phone Number [facility] Department [place] [address] * (ABNORMAL) POCT glucose (11/23/2021 4:12 AM CDT) Glucose, POC 321(H) 70 - 199 mg/dL [facility] Glucose comment 1 Glu2: RN/MD Notified [facility] Blood 11/23/2021 4:12 AM CDT 11/23/2021 4:12 AM CDT Jasbir Cline MD LAB POCT ORDERABLES - DEV ICE Final Result [facility] Department [place] [address] * COVID-19 Coronavirus RNA Nasopharyngeal (11/23/2021 2:07 AM CDT) [facility] COVID-19 RNA Negative Negative [facility] Nasopharyngeal 11/23/2021 2: 07 AM CDT 11/23/2021 2:13 AM CDT Narrative [facility] - 11/23/2021 2:55 AM CDT Is the patient experiencing any symptoms consistent with COVID (eg. Fever, cough, shortness of breath)?->No What is the reason for testing?->Bed placement or semi-private room (Rapid) ??Interpretive data: Synonyms for this test include: PCR and NAAT . ??This test is performed using the [employer] Xpert Xpress plus assay. This is a real-time RT-PCR test intended for the qualitative detection of nucleic acid from the SARS-CoV-2. This assay has been reviewed by the FDA for Emergency Use Authorization (EUA). The performance characteristics have been verified by the performing laboratory. Results must be considered in the clinical context and a negative result does not rule out infection. Interpretive data last revised October 04, 2021. ??Interpretive data: Synonyms for this test include: PCR and NAAT . ??This test is performed using the [employer] Xpert Xpress plus assay. This is a real-time RT-PCR test intended for the qualitative detection of nucleic acid from the SARS-CoV-2. This assay has been reviewed by the FDA for Emergency Use Authorization (EUA). The performance characteristics have been verified by the performing laboratory. Results must be considered in the clinical context and a negative result does not rule out infection. Interpretive data last revised October 04, 2021. us Radames Herrera MD LAB MICROBIOLOGY - GENERA L ORDERABLES Final Result Performing Organization Address City/[facility] Co de Phone Number [facility] Department [place] [address] * (ABNORMAL) POCT glucose (11/23/2021 1:58 AM CDT) [facility] Signature Glucose, POC 349(H) 70 - 199 mg/dL [facility] Glucose comment 1 Glu2: RN/MD Notified [facility] Blood 11/23/2021 1:58 AM CDT 11/23/2021 1:58 AM CDT us Jasbir Cline MD LAB POCT ORDERABLES - DEV ICE Final Result Performing Organization Address [facility] Co de Phone Number [facility] Department [place] [address] * CA CRITICAL CARE ILL/INJURED PATIENT INIT 30-74 MIN, CA CRITICAL CARE ILL/INJURED PATIENT ADDL 30 MIN (11/23/2021 1:39 AM CDT) Narrative Jasbir Cline MD - 11/23/2021 1:39 AM CDT Jasbir Cline MD ? 11/23/2021 ??1:40 AM Critical Care Performed by: Jasbir Cline MD Authorized by: Jasbir Cline MD Critical care provider statement: As reflected in the history, physical exam, orders, notes, and/or MDM, I was personally present while the patient was critically ill and provided critical care services for approximately 75 minutes, excluding time involved in separately billable procedures. ??Critical care was necessary to treat or prevent imminent or life-threatening deterioration of the following condition(s): ?? acid-base disturbance, acute electrolyte derangement, dehydration, diabetic ketoacidosis, severe metabolic condition and hypo/hyper glycemic control ??Critical care was time spent by me providing the following: ? continuous telemetry, continuous pulse oximetry, interpretation of bedside monitors, imaging, and arterial/venous lab draws, serial bedside patient exams, serial laboratory checks and resuscitation with fluids ?? IV insulin gtt ?? initiation of acute renal replacement therapy ?? review prior cultures/records ?? I provided emergent necessary critical care medicine services to this patient. I ordered and reviewed test results and/or imaging studies. I spent time discussing the management of this critically ill patient with consultants and the medical staff. I spent time discussing the management and therapeutic options for this critically ill patient with the patient themselves or with the appropriate designated surrogate decision-maker. I spent time documenting in the medical record. us Jasbir Cline MD IN CLINIC/BEDSIDE ORDERAB LES Final Result * (ABNORMAL) POCT glucose (11/23/2021 12:17 AM CDT) Glucose, POC 395(H) 70 - 199 mg/dL [facility] Glucose comment 1 Glu2: RN/MD Notified [facility] Blood 11/23/2021 12:1 7 AM CDT 11/23/2021 12:17 AM CDT Jasbir Cline MD LAB POCT ORDERABLES - DEV ICE Final Result [facility] Department [place] [address] * (ABNORMAL) Hemoglobin A1c (11/22/2021 11:23 PM CDT) Pathologist [facility] Hgb A1C 10.9(H) 4.0 - 5.6 % [facility] Estimated Average Glucose 266 mg/dL [facility] Comment: The ADA recommends reporting an estimated Average Glucose (eAG) with all Hemoglobin A1c results using the equation derived from a study of 507 normal and diabetic adults. ??Minority populations were underrepresented and children were not included. ?? (Diabetes Care 2020; 43(S1): S66-S76). ??The eAG is not equivalent to a fasting glucose. Blood 11/22/2021 11:2 3 PM CDT 11/22/2021 11:42 PM CDT us Norm Butler MD LAB BLOOD ORDERABLES Melina castorena Result [facility] Department [place] [address] * Differential, auto (11/22/2021 11:23 PM CDT) Neutrophil abs 2.7 1.7 - 6.5 K/cumm [facility] Imm gran abs 0.1 0.0 - 0.1 K/cumm [facility] Lymphocyte abs 1.8 0.8 - 3.3 K/cumm [facility] Monocyte abs 0.4 0.2 - 0.8 K/cumm [facility] Eosinophil abs 0.1 0.0 - 0.5 K/cumm [facility] Basophil abs 0.0 0.0 - 0.1 K/cumm [facility] Neutrophil pct 52.6 % [facility] Comment: Interpretive Data Percent cell count reference ranges are not reported, since discordance with absolute values may lead to misinterpretation of CBC data. Current Interpretive Data was last revised on 2017. Imm gran pct 1.0 % [facility] Comment: Interpretive Data Percent cell count reference ranges are not reported, since discordance with absolute values may lead to misinterpretation of CBC data. Current Interpretive Data was last revised on 2017. Lymphocyte pct 35.7 % [facility] Comment: Interpretive Data Percent cell count reference ranges are not reported, since discordance with absolute values may lead to misinterpretation of CBC data. Current Interpretive Data was last revised on 2017. Monocyte pct 7.4 % [facility] Comment: Interpretive Data Percent cell count reference ranges are not reported, since discordance with absolute values may lead to misinterpretation of CBC data. Current Interpretive Data was last revised on 2017. Eosinophil pct 2.7 % [facility] Comment: Interpretive Data Percent cell count reference ranges are not reported, since discordance with absolute values may lead to misinterpretation of CBC data. Current Interpretive Data was last revised on 2017. Basophil pct 0.6 % [facility] Comment: Interpretive Data Percent cell count reference ranges are not reported, since discordance with absolute values may lead to misinterpretation of CBC data. Current Interpretive Data was last revised on 2017. Blood 11/22/2021 11:2 3 PM CDT 11/22/2021 11:36 PM CDT us Tess Balderas MD LAB BLOOD ORDERABLES Final Result Performing Organization Address City/[facility] Co de Phone Number [facility] Department [place] [address] * (ABNORMAL) CBC with auto differential (11/22/2021 11:23 PM CDT) WBC 5.1 3.8 - 9.9 K/cumm [facility] Hgb 18.7(H) 13.0 - 17.5 g/dL [facility] Hct 40.2 38.9 - 50.3 % [facility] Plt 283 150 - 400 K/cumm [facility] MPV 9.8 9.1 - 12.3 fL [facility] RBC 5.04 4.30 - 5.80 M/cumm [facility] MCV 79.8(L) 81.3 - 96.4 fL [facility] MCH 37.1(H) 27.1 - 33.3 pg [facility] MCHC 46.5(H) 32.3 - 35.7 g/dL [facility] RDW CV 13.0 11.1 - 14.9 % [facility] RDW SD 36.4 35.7 - 48.1 fL [facility] NRBC abs 0.00 0.00 - 0.01 K/cumm [facility] Blood 11/22/2021 11:2 3 PM CDT 11/22/2021 11:36 PM CDT us Tess Balderas MD LAB BLOOD ORDERABLES Final Result Performing Organization Address [facility]/ZIP Co de Phone Number [facility] Department [place] [address] * eGFR (11/22/2021 11:21 PM CDT) eGFR >90 90 - 130 mL/min/1. 73 m2 [facility] Comment: Interpretive Data Reference Interval Normal ?>/= [...] interpretive data was last reviewed 2021. Blood 11/22/2021 11:2 1 PM CDT 11/22/2021 11:35 PM CDT us China White MD LAB BLOOD ORDERABLES Final R esult [facility] [place] [address] * (ABNORMAL) Blood gas, venous (11/22/2021 11:21 PM CDT) Pathologist [facility] pH, Venous 7.34 7.32 - 7.43 [facility] PCO2, Venous 30(L) 40 - 50 mmHg [facility] PO2, Venous 127 mmHg [facility] Comment: Interpretive Data No Reference Range Established Current Interpretive Data was last revised on 2017. HCO3 Venous, Calculated 17(L) 20 - 30 mmol/L [facility] BE, venous -8 mmol/L [facility] Comment: Interpretive Data No Reference Range Established Current Interpretive Data was last revised on 2017. Blood 11/22/2021 11:2 1 PM CDT 11/22/2021 11:29 PM CDT us Jasbir Cline MD LAB BLOOD ORDERABLES Melina castorena Result [facility] Department [place] [address] * (ABNORMAL) Basic metabolic panel (11/22/2021 11:21 PM CDT) Sodium 129(L) 135 - 145 mmol/L [facility] Comment:After removal of alie ss lipemia. Potassium, pl See Comment 3.3 - 4.9 mmol/L [facility] Comment: Credited; Hemolyzed Specimen After removal of gross lipemia. Chloride 94(L) 97 - 110 mmol/L [facility] Comment:After removal of alie ss lipemia. CO2 14(L) 22 - 32 mmol/L [facility] Comment: Hemolyzed; result may be falsely decreased After removal of gross lipemia. Anion gap 21(H) 2 - 15 mmol/L [facility] Comment:After removal of alie ss lipemia. BUN 19 8 - 25 mg/dL [facility] Comment:After removal of alie ss lipemia. Creatinine 0.82 0.80 - 1.30 mg/dL [facility] Comment:After removal of alie ss lipemia. Glucose 442(H) 70 - 199 mg/dL [facility] Comment: After removal of gross lipemia. Interpretive Data [...] interpretive data was last revised 2017. Calcium 9.4 8.5 - 10.3 mg/dL [facility] Comment:After removal of alie ss lipemia. Blood 11/22/2021 11:2 1 PM CDT 11/22/2021 11:35 PM CDT Jasbir Cline MD LAB BLOOD ORDERABLES Melina l Result Performing Organization Address City/[facility]/ZIP Co de Phone Number [facility] Department [place] [address] * Potassium, whole blood (11/22/2021 11:21 PM CDT) Potassium, bld 4.5 3.3 - 4.9 mmol/L [facility] Blood 11/22/2021 11:2 1 PM CDT 11/22/2021 11:29 PM CDT Jasbir Cline MD LAB BLOOD ORDERABLES Melina l Result Performing Organization Address City/[facility]/ZIP Co de Phone Number [facility] Department [place] [address] * (ABNORMAL) POCT ketone (11/22/2021 11:09 PM CDT) Ketones, Blood, POC 3.9(A) 0.1 - 0.5 mmol/L Blood specimen (specimen) 11/22/2021 11:09 PM CDT Jasbir Cline MD POINT OF CARE TEST ORDERA BLES Final Result * ECG 12-LEAD (11/22/2021 11:00 PM CDT) Narrative [facility] - 11/22/2021 11:00 PM CDT Birgit Rosenberg MD ? 11/22/2021 11:04 PM ECG 12 lead Date/Time: 11/22/2021 11:00 PM Performed by: Birgit Rosenberg MD Authorized by: China Magana MD Rate: ??ECG rate: ??98 ??ECG rate assessment: normal ?? Rhythm: ??Rhythm: sinus rhythm ?? Ectopy: ??Ectopy: none ?? QRS: ??QRS intervals: ??Wide Conduction: ??Conduction: normal ?? ST segments: ??ST segments: ??Abnormal ??Elevation: ??II Q waves: ??Q waves: ??III, aVF and V3 Other findings: ??Other findings: poor R wave progression ?? Previous ECG: ??Previous ECG: ??Compared to current ??Date of previous ECG: ??01/14/2020 ??Similarity: ??No change Interpretation: ??Interpretation: No significant change ?? Procedure Note Birgit Rosenberg MD - 11/22/2021 11:00 PM CDT Procedure ECG 12 lead Date/Time: 11/22/2021 11:00 PM Performed by: Birgit Rosenberg MD Authorized by: China Magana MD Rate: ECG rate: 98 ECG rate assessment: normal Rhythm: Rhythm: sinus rhythm Ectopy: Ectopy: none QRS: QRS intervals: Wide Conduction: Conduction: normal ST segments: ST segments: Abnormal Elevation: II Q waves: Q waves: III, aVF and V3 Other findings: Other findings: poor R wave progression Previous ECG: Previous ECG: Compared to current Date of previous EC01/14/2020 Similarity: No change Interpretation: Interpretation: No significant change Birgit Rosenberg MD 11/22/21 [id number] us Jasbir Cline MD ECG ORDERABLES Final Res ult [facility] * (ABNORMAL) POCT glucose (11/22/2021 10:25 PM CDT) Glucose, POC 511(C) 70 - 199 mg/dL [facility] Glucose comment 1 Glu2: [facility] Blood 11/22/2021 10:2 5 PM CDT 11/22/2021 10:25 PM CDT us Notinfile Unknown LAB POCT ORDERABLES - DEVICE F inal Result [facility] Department [place] [address] documented in this encounter Visit Diagnoses Diagnosis Diabetic ketoacidosis without coma associated with diabetes mellitus due to underlying condition (CMS/HCC) (HCC)- Primary Diabetic ketoacidosis without coma associated with diabetes mellitus due to underlying condition (CMS/HCC) (HCC) Class 3 severe obesity with serious comorbidity and body mass index (BMI) of 45.0 to 49.9 in adult, unspecified obesity type (HCC) Essential hypertension Unspecified essential hypertension Hyperglycemia Other abnormal glucose Cellulitis Cellulitis and abscess of unspecified site Type 2 diabetes mellitus without complication, with long-term current use of insulin (CMS/HCC) (HCC) Angina pectoris (HCC) Other and unspecified angina pectoris documented in this encounter Admitting Diagnoses Diagnosis Diabetic ketoacidosis without coma associated with diabetes mellitus due to underlying condition (CMS/HCC) (HCC) documented in this encounter Administered Medications Inactive Administered Medications - up to 3 most recent administrations Medication Order MAR Action Action Date Dose Rate Site acetaminophen (TYLENOL) tablet 1,000 mg 1,000 mg, oral, Once, On Dayana 11/23/21 at 0837, For 1 dose Given 11/23/2021 9:27 AM CDT 1,000 mg ceFAZolin (ANCEF) 1 gram/10 mL in sterile water (premix) 1,000 mg 1,000 mg, intravenous, at 200 mL/hr, Administer over 3 Minutes, Every 8 hours scheduled, First dose on Dayana 11/23/21 at 0008, Indications: Skin/Soft Tissue InfectionIndications:Skin/S oft Tissue Infection Given 11/23/2021 9:26 PM CDT 1,000 mg 200 mL/hr Given 11/23/2021 1:36 PM CDT 1,000 mg 200 mL/hr Given 11/23/2021 6:28 AM CDT 1,000 mg 200 mL/hr dextrose (D10W) 10% bolus 250 mL 250 mL, intravenous, at 1,000 mL/hr, Administer over 15 Minutes, Every 15 min PRN, blood glucose less than 70 mg/dL and UNABLE to swallow/take PO glucose/juice., Starting on Dayana 11/23/21 at 1009, After treatment for hypoglycemia, recheck BG followed by treatment every 15 minutes until the BG is greater than 100 mg/dL. Then check BG 1 hour post treatment. If BG is less than 100 mg/dL, repeat Q15 minute BG checks and treatment. Call MD for each episode of hypoglycemia., Indications: hypoglycemic disorderIndications:hypoglyc emic disorder dextrose 5% infusion 150 mL/hr, intravenous, Continuous, Starting on [facility] 11/23/21 at 1012, Start when blood glucose less than 250 mg/dL and decrease rate of previous IV fluid infusion order. Notify MD when blood glucose less than 250 mg/dL and adjusting IV fluids. Rate/Dose Change 11/23/2021 7:25 PM CDT 150 mL/hr 150 mL/hr Rate/Dose Change 11/23/2021 1:43 PM CDT 100 mL/hr 100 mL/ hr New Bag 11/23/2021 10:53 AM CDT 100 mL/hr 100 mL/hr dextrose gel in packet 15 g 15 g, oral, Every 15 min PRN, low blood sugar, blood glucose less than 70 mg/dL, Starting on [facility] 11/23/21 at 1009, If patient is alert and able to [...] for each episode of hypoglycemia., Indications: hypoglycemic disorderIndications:hypoglyce law disorder glucagon injection 1 mg 1 mg, intramuscular, Every 30 min PRN, low blood sugar, blood glucose less than 70 mg/dL AND no IV access AND unable to take PO glucose/juice., Starting on Dayana 11/23/21 at 1009, After Glucagon is administered, position patient on [...] mL SWFI. Use immediately following reconstitution. insulin lispro (HumaLOG, ADMELOG) 100 unit/mL injection 19 Units 19 Units (rounded from 19.05 Units = 0.1 Units/kg ? 190.5 kg), subcutaneous, Every 2 hours, First dose on Dayana 11/23/21 at 0218, Check blood glucose prior to each administration. Administer when blood glucose is LESS THAN 250 mg/dL. Notify provider when ketoacidosis resolved (anion gap less than or equal to 16)., Indications: diabetic ketoacidosisIndications:diabe tic ketoacidosis Given 11/23/2021 6:58 AM CDT 19 Units Left Lower Abdomen insulin lispro (HumaLOG, ADMELOG) 100 unit/mL injection 38 Units 38 Units (rounded from 38.1 Units = 0.2 Units/kg ? 190.5 kg), subcutaneous, Every 2 hours, First dose on Dayana 11/23/21 at 0218, Check blood glucose prior to each administration. Administer when blood glucose is GREATER THAN OR EQUAL TO 250 mg/dL. Notify provider when ketoacidosis resolved (anion gap less than or equal to 16)., Indications: diabetic ketoacidosisIndications:diabe tic ketoacidosis Given 11/23/2021 4:35 AM CDT 38 Units Right Lower Abdomen Given 11/23/2021 2:37 AM CDT 38 Units Le ft Lower Abdomen insulin regular (HumuLIN R, NovoLIN R) 100 unit/mL injection 10 Units 10 Units, intravenous, Once, On Dayana 11/23/21 at 1012, For 1 dose, Do NOT administer insulin bolus or infusion until K greater than 3.5 mmol/L, Indications: diabetic ketoacidosisIndications:di abetic ketoacidosis Given 11/23/2021 10:52 AM CDT 10 Units insulin regular in 0.9% sodium chloride (MYXREDLIN) 100 unit/100 mL (1 unit/mL) infusion (premix) 0-30 Units/hr (0-30 mL/hr), 1 units/mL, intravenous, Titrated, Starting on Dayana 11/23/21 at 0007, Until Dayana 11/23/21 at 0124, NON-WEIGHT BASED DOSING ED PROTOCOL - For ED use only. Do NOT administer insulin bolus or infusion until K greater than 3.5 mmol/L Initial Rate: : 10 units/hour. (0.1 units/kg/hr- max 10 units per hour) Blood glucose greater than 250 mg/dL: BG INCREASING: increase insulin drip rate by 50% BG DECREASING: continue insulin drip at current rate. Once blood glucose 250 mg/dL or less: Add D5W and decrease other IV fluid per IV fluid orders. Call MD. Blood glucose 151-250 mg/dL: BG INCREASING: continue insulin drip at current rate. BG DECREASING by less than 75 mg/dL/hr: continue insulin drip at current rate. BG DECREASING by 75 mg/dL/hr or more: decrease insulin drip rate by 50% Blood glucose 100 - 150 mg/dL: Decrease insulin drip rate by 50% and call MD. (MD may want to increase D5W to prevent hypoglycemia rather than further decrease insulin drip rate) Blood glucose less than 100 mg/dL: Hold insulin infusion and notify MD. Follow hypoglycemia orders if blood glucose is less than 70 mg/dL Once BG greater than 100 mg/dL, restart insulin drip with rate reduced by 50%. When new IV tubing is used, completely prime the tubing. Once primed, waste an additional 20 ml of insulin infusion using the IV pump prior to connecting to patient., Routine New Bag 11/23/2021 1:00 AM CDT 10 Units/hr 10 mL/hr insulin regular in 0.9% sodium chloride (MYXREDLIN) 100 unit/100 mL (1 unit/mL) infusion (premix) 0-30 Units/hr (0-30 mL/hr), 1 units/mL, intravenous, Titrated, Starting on Dayana 11/23/21 at 1012, Until Sat11/24/21 at 0115, NON-WEIGHT BASED DOSING ED PROTOCOL - For ED use only. Do NOT administer insulin bolus or infusion until K greater than 3.5 mmol/L Initial Rate: : 10 units/hour. (0.1 units/kg/hr- max 10 units per hour) Blood glucose greater than 250 mg/dL: BG INCREASING: increase insulin drip rate by 50% BG DECREASING: continue insulin drip at current rate. Once blood glucose 250 mg/dL or less: Add D5W and decrease other IV fluid per IV fluid orders. Call MD. Blood glucose 151-250 mg/dL: BG INCREASING: continue insulin drip at current rate. BG DECREASING by less than 75 mg/dL/hr: continue insulin drip at current rate. BG DECREASING by 75 mg/dL/hr or more: decrease insulin drip rate by 50% Blood glucose 100 - 150 mg/dL: Decrease insulin drip rate by 50% and call MD. (MD may want to increase D5W to prevent hypoglycemia rather than further decrease insulin drip rate) Blood glucose less than 100 mg/dL: Hold insulin infusion and notify MD. Follow hypoglycemia orders if blood glucose is less than 70 mg/dL Once BG greater than 100 mg/dL, restart insulin drip with rate reduced by 50%. When new IV tubing is used, completely prime the tubing. Once primed, waste an additional 20 ml of insulin infusion using the IV pump prior to connecting to patient., Routine Rate/Dose Verify 11/23/2021 8:23 PM CDT 2.8 Units/hr 2.8 mL/hr Rate/Dose Change 11/23/2021 7:14 PM CDT 2.8 Units/hr 2.8 m L/hr Rate/Dose Change 11/23/2021 5:54 PM CDT 5.6 Units/hr 5.6 m L/hr Lactated Ringer's (LR) bolus 1,000 mL 1,000 mL, intravenous, Once, On 11/22/21 at 2247, For 1 dose New Bag 11/22/2021 11:20 PM CDT 1,000 mL ondansetron (ZOFRAN) injection 4 mg 4 mg, intravenous, Administer over 2 Minutes, Once, On Dayana 11/23/21 at 0007, For 1 dose Given 11/23/2021 12:50 AM CDT 4 mg potassium chloride 40 mEq/520 mL in sodium chloride 0.9% (premix) 40 mEq 40 mEq, intravenous, at 130 mL/hr, Administer over 4 Hours, Every 4 hours PRN, K less than 3.5 mmol/L, Starting on Dayana 11/23/21 at 1009, Do NOT administer insulin bolus or infusion until K greater than 3.5 mmol/L, Indications: HypokalemiaIndications:Hypo kalemia potassium chloride ER (KLOR-CON) extended release tablet 40 mEq 40 mEq, oral, Once, On Dayana 11/23/21 at 1706, For 1 dose, Do not crush, chew, cut, dissolve, open or otherwise manipulate tablet/capsule. Given 11/23/2021 5:56 PM CDT 40 mEq sodium chloride 0.45% infusion 150 mL/hr, intravenous, Continuous, Starting on Dayana 11/23/21 at 0007, Decrease rate to 50 mL/hr when blood glucose less than 250 mg/dL. New Bag 11/23/2021 12:56 AM CDT 150 mL/hr 150 mL/hr sodium chloride 0.45% infusion 150 mL/hr, intravenous, Continuous, Starting on Dayana 11/23/21 at 0218, Decrease rate to 50 mL/hr when blood glucose reaches 250 mg/dL. Rate/Dose Change 11/23/2021 6:30 AM CDT 50 mL/hr 50 mL/hr New Bag 11/23/2021 2:56 AM CDT 150 mL/hr 150 mL/hr sodium chloride 0.45% infusion 150 mL/hr, intravenous, Continuous, Starting on Dayana 11/23/21 at 1012, Decrease rate to 50 mL/hr when blood glucose less than 250 mg/dL. Rate/Dose Change 11/23/2021 1:43 PM CDT 50 mL/hr 50 mL/hr Rate/Dose Change 11/23/2021 11:40 AM CDT 150 mL/hr 150 mL /hr New Bag 11/23/2021 11:07 AM CDT 50 mL/hr 50 mL/hr sodium chloride 0.9% bolus 1,000 mL 1,000 mL, intravenous, Once, On Dayana 11/23/21 at 0027, For 1 dose New Bag 11/23/2021 12:55 AM CDT 1,000 mL documented in this encounter Active and Recently Administered Medications Times are shown in CDT. Scheduled Medication Order 11/22/2021 11/23/2021 11/24/2021 acetaminophen (TYLENOL) tablet 1,000 mg (COMPLETED) 1,000 mg, oral, Once, On Da[facility]na 11/23/21 at 0837, For 1 dose 0927 (Given - Provider: Lin Stanton RN) ceFAZolin (ANCEF) 1 gram/10 mL in sterile water (premix) 1,000 mg 1,000 mg, intravenous, at 200 mL/hr, Administer over 3 Minutes, Every 8 hours scheduled, First dose on Dayana 11/23/21 at 0008, Indications: Skin/Soft Tissue Infection 0052 (Given - Provider: Elisa Man RN)0628 (Given - Provider: Lin Stanton RN)1336 (Given - Provider: Lin Stanton RN)2126 (Given - Provider: Sarah Montoya RN) insulin lispro (HumaLOG, ADMELOG) 100 unit/mL injection 19 Units (CANCELED)(Linked Group 1) 19 Units (rounded from 19.05 Units = 0.1 Units/kg ? 190.5 kg), subcutaneous, Every 2 hours, First dose on Dayana 11/23/21 at 0218, Check blood glucose prior to each administration. Administer when blood glucose is LESS THAN 250 mg/dL. Notify provider when ketoacidosis resolved (anion gap less than or equal to 16)., Indications: diabetic ketoacidosis 0237 (See Alternative - Provider: Elisa Man RN)0435 (See Alternative - Provider: Elisa Man RN)0658 (Given - Provider: Lin Stanton RN)0929 (See Alternative - Provider: Lin Stanton RN)1000 (Due) insulin lispro (HumaLOG, ADMELOG) 100 unit/mL injection 38 Units (CANCELED)(Linked Group 1) 38 Units (rounded from 38.1 Units = 0.2 Units/kg ? 190.5 kg), subcutaneous, Every 2 hours, First dose on Dayana 11/23/21 at 0218, Check blood glucose prior to each administration. Administer when blood glucose is GREATER THAN OR EQUAL TO 250 mg/dL. Notify provider when ketoacidosis resolved (anion gap less than or equal to 16)., Indications: diabetic ketoacidosis 0237 (Given - Provider: Elisa Man RN)0435 (Given - Provider: Elisa Man RN)0658 (See Alternative - Provider: Lin Stanton RN)0929 (Not Given - Provider: Lin Stanton RN - Reason: Contraindicated)1000 (Due) insulin regular (HumuLIN R, NovoLIN R) 100 unit/mL injection 10 Units (COMPLETED) 10 Units, intravenous, Once, On Sat11/23/21 at 1012, For 1 dose, Do NOT administer insulin bolus or infusion until K greater than 3.5 mmol/L, Indications: diabetic ketoacidosis 1052 (Given - Provider: Lin Stanton RN) Lactated Ringer's (LR) bolus 1,000 mL (COMPLETED) 1,000 mL, intravenous, Once, On Sat11/22/21 at 2247, For 1 dose 2320 (New Bag - Provider: Cristiana Yeager RN) 0118 (Stopped - Provider: Elisa Man RN) ondansetron (ZOFRAN) injection 4 mg (COMPLETED) 4 mg, intravenous, Administer over 2 Minutes, Once, On Sat11/23/21 at 0007, For 1 dose 0050 (Given - Provider: Elisa Man RN) potassium chloride ER (KLOR-CON) extended release tablet 40 mEq (COMPLETED) 40 mEq, oral, Once, On Sat11/23/21 at 1706, For 1 dose, Do not crush, chew, cut, dissolve, open or otherwise manipulate tablet/capsule. 1756 (Given - Provider: Lin Stanton RN) sodium chloride 0.9% bolus 1,000 mL (COMPLETED) 1,000 mL, intravenous, Once, On Sat11/23/21 at 0027, For 1 dose 0055 (New Bag - Provider: Elisa Man RN)0212 (Stopped - Provider: Elisa Man RN) Continuous Medication Order 11/22/2021 11/23/2021 11/24/2021 dextrose 5% infusion 150 mL/hr, intravenous, Continuous, Starting on Sat11/23/21 at 1012, Start when blood glucose less than 250 mg/dL and decrease rate of previous IV fluid infusion order. Notify MD when blood glucose less than 250 mg/dL and adjusting IV fluids. 1053 (New Bag - Provider: Lin Stanton RN)1139 (Stopped - Provider: Lin Stanton RN - Comment: [id number])1343 (Rate/Dose Change - Provider: Lin Stanton RN)1925 (Rate/Dose Change - Provider: Sarah Montoya RN) 0106 (Continue to Inpatient Floor - Provider: Marnie Hensley RN)0108 (Continued after Discharge - Provider: Marnie Hensley RN) insulin regular in 0.9% sodium chloride (MYXREDLIN) 100 unit/100 mL (1 unit/mL) infusion (premix) (CANCELED) 0-30 Units/hr (0-30 mL/hr), 1 units/mL, intravenous, Titrated, Starting on Dayana 11/23/21 at 0007, Until Dayana 11/23/21 at 0124, NON-WEIGHT BASED DOSING ED PROTOCOL - For ED use only. Do NOT administer insulin bolus or infusion until K greater than 3.5 mmol/L Initial Rate: : 10 units/hour. (0.1 units/kg/hr- max 10 units per hour) Blood glucose greater than 250 mg/dL: BG INCREASING: increase insulin drip rate by 50% BG DECREASING: continue insulin drip at current rate. Once blood glucose 250 mg/dL or less: Add D5W and decrease other IV fluid per IV fluid orders. Call MD. Blood glucose 151-250 mg/dL: BG INCREASING: continue insulin drip at current rate. BG DECREASING by less than 75 mg/dL/hr: continue insulin drip at current rate. BG DECREASING by 75 mg/dL/hr or more: decrease insulin drip rate by 50% Blood glucose 100 - 150 mg/dL: Decrease insulin drip rate by 50% and call MD. (MD may want to increase D5W to prevent hypoglycemia rather than further decrease insulin drip rate) Blood glucose less than 100 mg/dL: Hold insulin infusion and notify MD. Follow hypoglycemia orders if blood glucose is less than 70 mg/dL Once BG greater than 100 mg/dL, restart insulin drip with rate reduced by 50%. When new IV tubing is used, completely prime the tubing. Once primed, waste an additional 20 ml of insulin infusion using the IV pump prior to connecting to patient., Routine 0100 (New Bag - Provider: Elisa Man RN)0202 (Stopped - Provider: Elisa Man RN - Comment: per MD) insulin regular in 0.9% sodium chloride (MYXREDLIN) 100 unit/100 mL (1 unit/mL) infusion (premix) 0-30 Units/hr (0-30 mL/hr), 1 units/mL, intravenous, Titrated, Starting on Dayana 11/23/21 at 1012, Until Sat11/24/21 at 0115, NON-WEIGHT BASED DOSING ED PROTOCOL - For ED use only. Do NOT administer insulin bolus or infusion until K greater than 3.5 mmol/L Initial Rate: : 10 units/hour. (0.1 units/kg/hr- max 10 units per hour) Blood glucose greater than 250 mg/dL: BG INCREASING: increase insulin drip rate by 50% BG DECREASING: continue insulin drip at current rate. Once blood glucose 250 mg/dL or less: Add D5W and decrease other IV fluid per IV fluid orders. Call MD. Blood glucose 151-250 mg/dL: BG INCREASING: continue insulin drip at current rate. BG DECREASING by less than 75 mg/dL/hr: continue insulin drip at current rate. BG DECREASING by 75 mg/dL/hr or more: decrease insulin drip rate by 50% Blood glucose 100 - 150 mg/dL: Decrease insulin drip rate by 50% and call MD. (MD may want to increase D5W to prevent hypoglycemia rather than further decrease insulin drip rate) Blood glucose less than 100 mg/dL: Hold insulin infusion and notify MD. Follow hypoglycemia orders if blood glucose is less than 70 mg/dL Once BG greater than 100 mg/dL, restart insulin drip with rate reduced by 50%. When new IV tubing is used, completely prime the tubing. Once primed, waste an additional 20 ml of insulin infusion using the IV pump prior to connecting to patient., Routine 1051 (New Bag - Provider: Lin Stanton RN)1144 (Rate/Dose Change - Provider: Lin Stanton RN)1241 (Rate/Dose Change - Provider: Lin Stanton RN)1344 (Rate/Dose Change - Provider: Lin Stanton RN)1557 (Rate/Dose Verify - Provider: Lin Stanton RN)1558 (Rate/Dose Change - Provider: Lin Stanton RN)1649 (New Bag - Provider: Lin Stanton RN)1701 (Rate/Dose Change - Provider: Lin Stanton RN)1754 (Rate/Dose Change - Provider: Lin Stanton RN)1914 (Rate/Dose Change - Provider: Sarah Montoya RN - Comment: bgl 150chesna witnessed :))2022 (Rate/Dose Verify - Provider: Sarah Montoya RN - Comment: bgl increased from 150 to 188, gtt remains the same per order; Armando Herzog witnessed) 010 (Continue to Inpatient Floor - Provider: Marnie Hensley RN)0108 (Continued after Discharge - Provider: Marnie Hensley RN) sodium chloride 0.45% infusion (CANCELED) 150 mL/hr, intravenous, Continuous, Starting on Dayana 11/23/21 at 0007, Decrease rate to 50 mL/hr when blood glucose less than 250 mg/dL. 0056 (New Bag - Provider: Elisa Man RN)0130 (Stopped - Provider: Elisa Man RN) sodium chloride 0.45% infusion (CANCELED) 150 mL/hr, intravenous, Continuous, Starting on Dayana 11/23/21 at 0218, Decrease rate to 50 mL/hr when blood glucose reaches 250 mg/dL. 0256 (New Bag - Provider: Elisa Man RN)0313 (Not Given - Provider: Elisa Man RN - Reason: Other - Comment: documented elsewhere)0630 (Rate/Dose Change - Provider: Lin Stanton RN)1030 (Stopped - Provider: Lin Stanton RN) sodium chloride 0.45% infusion 150 mL/hr, intravenous, Continuous, Starting on Dayana 11/23/21 at 1012, Decrease rate to 50 mL/hr when blood glucose less than 250 mg/dL. 1107 (New Bag - Provider: Lin Stanton RN)1140 (Rate/Dose Change - Provider: Lin Stanton RN)1343 (Rate/Dose Change - Provider: Lin Stanton RN) 0107 (Continue to Inpatient Floor - Provider: Marnie Hensley, BRYANNA)0108 (Continued after Discharge - Provider: Marnie Hensley, BRYANNA) PRN Medication Order 11/22/2021 11/23/2021 11/24/2021 dextrose (D10W) 10% bolus 250 mL(Linked Group 2) 250 mL, intravenous, at 1,000 mL/hr, Administer over 15 Minutes, Every 15 min PRN, blood glucose less than 70 mg/dL and UNABLE to swallow/take PO glucose/juice., Starting on Dayana 11/23/21 at 1009, After treatment for hypoglycemia, recheck BG followed [...] glucose less than 70 mg/dL, Starting on Dayana 11/23/21 at 1009, If patient is alert and able to [...] unable to take PO glucose/juice., Starting on Dayana 11/23/21 at 1009, After Glucagon is administered, position patient on [...] 1 mL SWFI. Use immediately following reconstitution. potassium chloride 40 mEq/520 mL in sodium chloride 0.9% (premix) 40 mEq 40 mEq, intravenous, at 130 mL/hr, Administer over 4 Hours, Every 4 hours PRN, K less than 3.5 mmol/L, Starting on Dayana 11/23/21 at 1009, Do NOT administer insulin bolus or infusion until K greater than 3.5 mmol/L, Indications: Hypokalemia Linked Groups Order Group 1: insulin lispro (HumaLOG, ADMELOG) 100 unit/mL injection 38 Units (CANCELED)Jump to med 38 Units (rounded from 38.1 Units = 0.2 Units/kg ? 190.5 kg), subcutaneous, Every 2 hours, First dose on Dayana 11/23/21 at 0218, Check blood glucose prior to each administration. Administer when blood glucose is GREATER THAN OR EQUAL TO 250 mg/dL. Notify provider when ketoacidosis resolved (anion gap less than or equal to 16)., Indications: diabetic ketoacidosis Or insulin lispro (HumaLOG, ADMELOG) 100 unit/mL injection 19 Units (CANCELED)Jump to med 19 Units (rounded from 19.05 Units = 0.1 Units/kg ? 190.5 kg), subcutaneous, Every 2 hours, First dose on Dayana 11/23/21 at 0218, Check blood glucose prior to each administration. Administer when blood glucose is LESS THAN 250 mg/dL. Notify provider when ketoacidosis resolved (anion gap less than or equal to 16)., Indications: diabetic ketoacidosis Group 2: dextrose gel in packet 15 gJump to med 15 g, oral, Every 15 min PRN, low blood sugar, blood glucose less than 70 mg/dL, Starting on Dayana 11/23/21 at 1009, If patient is alert and able to [...] UNABLE to swallow/take PO glucose/juice., Starting on Dayana 11/23/21 at 1009, After treatment for hypoglycemia, recheck BG followed [...] Count Last Ordered Date First Ordered Date dextrose (D10W) 10% bolus 250 mL 4 11/24/19 dextrose 5% infusion 3 11/23/2021 dextrose gel in packet 15 g 4 11/23/2021 glucagon injection 1 mg 4 11/23/2021 insulin regular in 0.9% sodi um chloride (MYXREDLIN) 100 unit/100 mL (1 unit/mL) infusion (premix) 1 11/23/2021 potassium chloride 40 mEq/52 0 mL in sodium chloride 0.9% (premix) 40 mEq 4 11/23/2021 sodium chloride 0.45% infusion 1 11/23/2021 sodium chloride 0.9% bolus 2,000 mL 1 11/23 Lab Orders Without Results Count Last Ordered D ate First Ordered Date POCT GLUCOSE DEVICE 19 11/23/2021 11/23/19 POCT LACTATE - DEVICE 11/23/2021 Nursing Count Last Ordered Date First Orde red Date NOTIFY PROVIDER (SPECIFY) 2 11/23/2021 NURSING COMMUNICATION 2 11/23/20212021 Consult Count Last Ordered Date First Orde red Date CONSULT TO ENDOCRINOLOGY DIABETES 1 022 IV Count Last Ordered Date First Orde red Date SALINE LOCK IV 1 11/22/2021 documented in this encounter Care Teams [employer] Relationship Specialty Start Date End Date Keila Jimenez MD [address] [place] [address] PCP - General 10/29/21 Mariana Monique MD [address] [place] [address] Referring Physician Internal Medicine 01/17/20 documented as of this encounter
--- OUTSIDE RECORDS SUMMARY | 2024-05-10 17:14 | XMS_ITS | Encounter Summary ---
Author Organization [facility] Address [address] [place] [address] Phone Care Team Providers Care Try On Baster Name Role Phone Jann Burrows MD Primary Care Provider [phone] Mariana Monique MD Unavailable [phone] Reason for Visit * Cardiology (Routine) - Closed Specialty Diagnoses / Procedures Referred By Christen springer Referred To Contact Diagnoses Asymmetric septal hypertrophy Benign essential hypertension Procedures Transthoracic Echo Complete W Doppler/CF Tania Beth MD Phone: tel: fax: [address] [address] Referral ID Status Reason Start Date Expiration Date Visits Re quested Visits Authorized [id number] Closed 05/25/2020 06/24/2021 1 1 Encounter Details Date Type Department Care Team (Latest Contact Info) Description 06/02/2020 9:30 AM MOVIE PRODUCER Ancillary Procedure [facility] [address] [facility] [address] [place] [address] Tania Beth MD [address] [address] Asymmetric septal hypertrophy (CMS/HCC); Benign essential hypertension Discharge Disposition: Discharge to home or self care Social History Tobacco Use Types Packs/Day Years Used Date Smoking Tobacco: Never Smokeless Tobacco: Former Chew Quit: 01/13/2019 Alcohol Use Standard Drinks/Week Comments Not Currently 0 (1 standard drink = 0.6 oz pur e alcohol) Sex and Gender Information Value Date Recorded Sex Assigned at Not on file Legal Sex Male 5:01 AM MOVIE PRODUCER Gender Identity Male 12/18/2017 12:38 PM CDT Sexual Orientation Not on file 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 file Not on file Not on file documented as of this encounter Discharge Disposition Disposition Code Departure Means Destination Discharge to home or self care documented in this encounter Plan of Treatment Not on file documented as of this encounter Procedures Procedure Name Priority Date/Time Associated Diagnosis Comments TRANSTHORACIC ECHO (TTE) COMPLETE W DOPPLER/CF W CONTRAST Routine 06/02/2020 10:27 AM MOVIE PRODUCER Asymmetric septal hypertrophy (CMS/HCC) Benign essential hypertension documented in this encounter Results * TRANSTHORACIC ECHO (TTE) COMPLETE W DOPPLER/CF W CONTRAST (06/02/2020 10:27 AM MOVIE PRODUCER) Anatomical Region Laterality Modality Ultrasound 06/02/2020 9:30 AM MOVIE PRODUCER Narrative 06/03/2020 10:15 PM MOVIE PRODUCER Patient name: Geraldo Velez Date of test: 06/02/2020 Type of test: TTE w/Doppler [facility] #: [id number] Date of : 1995 (M) Construction Sales Manager: Angélica Baez), [facility] Referring Physician: TANIA BETH MD Contrast Agent: 0.4 ml Optison Administered, (2.6 ml wasted). Contrast Administered by: Yahaira Hatch RN Supervised/Interpreted by: Noreen Jha MD Diagnosis: Location: [facility] Reason for test: Asymetrical Septal hypertrophy, HTN MV Structure: normal, ?MV Motion: normal, ?? Mitral Annulus: AV Structure: tricuspid and is Normal, ?? AV Motion: Normal Aotic root: not well visualized, ?TM: , ?? PV: Valvular Vegetations: , ?Mass/Thrombi: RA: Measurements: ?M-Mode ?Normal ? Aotic Root: ? <3.8 ? LA: ? <4.0 ? RV: ? <2.8 ? LV(ED): ? <5.7 ? LV(ES): ? Variable ?2D Linear Normal ? Aotic Root: ? <4.0 ? Ao Indexed: ? <2.0 ? LA: ? <4.0 ? RV: ? 5.0 cm ?<4.2 ? LV(ED): ? 4.5 cm ?<5.9 ? LV(ES): ? 3.3 cm ?<4.0 ?2D Vol. ?? Normal ?Indexed ?? Indexed Normal RA: ? 50.0 ml ? 16.7 ml/M2 ?11-39 ? LA: ? 81.0 ml ? 27.1 ml/M2 ?16-34 ? RV: ? <12.7 ? LV(ED): ? 179.0 ml ??62-150 ?59.8 ml/M2 ?<75 ? LV(ES): ? 83.0 ml ?? 21-61 ? 27.7 ml/M2 ?<32 ?3D Vol. ? Indexed Normal LV(ED): ?<75 ? LV(ES): ?<32 ? LV EF: 54 % ?? (Normal: >=52%) ?? LV Septum: 1.8 cm ?(Normal: <1.0 cm) Wall Motion Scoring (1=Normal 2=Hypo 3=Akinetic 4=Dyskin./Aneurysm 0=Not visualized) Parasternal Long [place]:MAS=1 BAS=1 MIL=1 ANABELLE=1 Parasternal Short [place]:MAS=1 MIS=1 CT=1 MIL=1 MAL=1 MA=1 Apical 4 Chambers:=1 MIS=1 BIS=1 BAL=1 MAL=1 AL=1 AC=1 Apical 2 Chambers:AI=1 CT=1 BI=1 BA=1 MA=1 AA=1 AC=1 LV Global Longitudinal Strain: -13.2% ??(Normal <-17%) RV Global Longitudinal Strain: LV Function: Normal LV Ejection Fraction, (EF=52-72%) RV Function: mild global hypokinesis Septal Motion: normal Pericardial Effusion: none seen Atrial Septum: Normal on 2D DOPPLER/COLOR FLOW DOPPLER RESULTS: Diastolic Function: normal Tricuspid Valve: No TR Pulmonic Valve: No VT AV Regurgitation: No AR seen AV Stenosis: no AV Area: ??cm2 AV Pressure Gradient (mmHg): Mean: 0, Peak:0 MV Regurgitation: No MR seen MV Stenosis: no MS MV Area: ??cm2 MV Pressure Gradient (mmHg): Mean: 0 MV ERO: ??cm Regurg. Vol.: ??ml/beat Regurg. Frac.: ??% PA Pressure: ??mmHg DOPPLER/COLOR FOLOW DOPPLER COMMENTS: No AR seen, No MR seen, no , no MS, No TR, No VT. Diastolic function: normal CONTRAST: 0.4 ml Optison Administered, (2.6 ml wasted). SUMMARY: Known h/o KARRI. Reduced image quality with poor endocardial border definition.. LA normal in size. Normal LV size and function. LVEF 54%. Septal wall not well visualized on current study (septal wall thickness 1.8cm and post wall 1.2cm)- mild KARRI vs basal septal hypertrophy. No ROMAN. No LVOT obstruction. ??Dilated RV with mild RV hypokinesis. No significant valvular abnormalities. Aortic root IVC normal in size. Unable to estimate PASP d/t inadequate TR jet. ?? Confirmed on ??06/03/2020 - 22:15:51 by Noreen Jha MD By signing this report, the attending manager care management certifies that he or she has personally supervised and interpreted the echocardiogram and has reviewed and or edited and agrees with the written comments contained within the report. Procedure Note Noreen Jha MD - 06/03/2020 Patient name: Geraldo Velez Date of test: 06/02/2020 Type of test: TTE w/[facility] #: [id number] Date of : 1995 (M) Construction Sales Manager: Angélica Baez), [facility] Referring Physician: TANIA BETH MD Contrast Agent: 0.4 ml Optison Administered, (2.6 ml wasted). Contrast Administered by: Yahaira Hatch RN Supervised/Interpreted by: Noreen Jha MD Diagnosis: Location: [facility] Reason for test: Asymetrical Septal hypertrophy, HTN MV Structure: normal, MV Motion: normal, Mitral Annulus: AV Structure: tricuspid and is Normal, AV Motion: Normal Aotic root: not well visualized, TM: , PV: Valvular Vegetations: , Mass/Thrombi: RA: Measurements: M-Mode Normal Aotic Root: <3.8 LA: <4.0 RV: <2.8 LV(ED): <5.7 LV(ES): Variable 2D Linear Normal Aotic Root: <4.0 Ao Indexed: <2.0 LA: <4.0 RV: 5.0 cm <4.2 LV(ED): 4.5 cm <5.9 LV(ES): 3.3 cm <4.0 2D Vol. Normal Indexed Indexed Normal RA: 50.0 ml 16.7 ml/M2 11-39 LA: 81.0 ml 27.1 ml/M2 16-34 RV: <12.7 LV(ED): 179.0 ml 62-150 59.8 ml/M2 <75 LV(ES): 83.0 ml 21-61 27.7 ml/M2 <32 3D Vol. Indexed Normal LV(ED): <75 LV(ES): <32 LV EF: 54 % (Normal: >=52%) LV Septum: 1.8 cm (Normal: <1.0 cm) Wall Motion Scoring (1=Normal 2=Hypo 3=Akinetic 4=Dyskin./Aneurysm 0=Not visualized) Parasternal Long Freeport:MAS=1 BAS=1 MIL=1 ANABELLE=1 Parasternal Short Freeport:MAS=1 MIS=1 CT=1 MIL=1 MAL=1 MA=1 Apical 4 Chambers:=1 MIS=1 BIS=1 BAL=1 MAL=1 AL=1 AC=1 Apical 2 Chambers:AI=1 CT=1 BI=1 BA=1 MA=1 AA=1 AC=1 LV Global Longitudinal Strain: -13.2% (Normal <-17%) RV Global Longitudinal Strain: LV Function: Normal LV Ejection Fraction, (EF=52-72%) RV Function: mild global hypokinesis Septal Motion: normal Pericardial Effusion: none seen Atrial Septum: Normal on 2D DOPPLER/COLOR FLOW DOPPLER RESULTS: Diastolic Function: normal Tricuspid Valve: No TR Pulmonic Valve: No VT AV Regurgitation: No AR seen AV Stenosis: no AV Area: cm2 AV Pressure Gradient (mmHg): Mean: 0, Peak:0 MV Regurgitation: No MR seen MV Stenosis: no MS MV Area: cm2 MV Pressure Gradient (mmHg): Mean: 0 MV ERO: cm Regurg. Vol.: ml/beat Regurg. Frac.: % PA Pressure: mmHg DOPPLER/COLOR FOLOW DOPPLER COMMENTS: No AR seen, No MR seen, no , no MS, No TR, No VT. Diastolic function: normal CONTRAST: 0.4 ml Optison Administered, (2.6 ml wasted). SUMMARY: Known h/o KARRI. Reduced image quality with poor endocardial border definition.. LA normal in size. Normal LV size and function. LVEF 54%. Septal wall not well visualized on current study (septal wall thickness 1.8cm and post wall 1.2cm)- mild KARRI vs basal septal hypertrophy. No ROMAN. No LVOT obstruction. Dilated RV with mild RV hypokinesis. No significant valvular abnormalities. Aortic root IVC normal in size. Unable to estimate PASP d/t inadequate TR jet. Confirmed on 06/03/2020 - 22:15:51 by Noreen Jha MD By signing this report, the attending manager care management certifies that he or she has personally supervised and interpreted the echocardiogram and has reviewed and or edited and agrees with the written comments contained within the report. us Tania Beth MD CV ECHO PROCEDURES Final Resu lt documented in this encounter Visit Diagnoses Diagnosis Asymmetric septal hypertrophy Benign essential hypertension Essential hypertension, benign documented in this encounter Administered Medications Inactive Administered Medications - up to 3 most recent administrations Medication Order MAR Action Action Date Dose Rate Site perflutren protein-a (OPTISON) 3 mL in sodium chloride 0.9% 8 mL syringe 1-8 mL, intravenous, Once in imaging, contrast, Starting on Dayana 06/02/20 at 0931, For 1 dose, Intra-Procedure (CV) Given 06/02/2020 10:21 AM MOVIE PRODUCER 1 mL documented in this encounter Orders Medications Ordered That Néstor ht Not Have Been Administered Count Last Ordered Date First Ordered Date perflutren protein-a (OPTISO N) 3 mL in sodium chloride 0.9% 8 mL syringe 1 06/02/2020 documented in this encounter Care Teams Try On Baster Relationship Specialty Start Date End Date Jann Burrows MD [address] [place] [address] PCP - General Hematology 03/13/19 10/28/21 Mariana Monique MD [address] [place] [address] Referring Physician Internal Medicine 01/17/20 documented as of this encounter
--- OUTSIDE RECORDS SUMMARY | 2024-05-10 17:14 | XMS_ITS | Encounter Summary ---
Author Organization [facility] Address [address] [place] [address] Phone Care Team Providers Care Humanities Department Chair Name Role Phone Jann Burrows MD Primary Care Provider [phone] Mariana Monique MD Unavailable [phone] Encounter Details Date Type Department Care Team (Late st Contact Info) Description 12/31/2019 Orders Only [facility] Endocrinology Metabolism and Lipid [address] [facility] [address] [place] [address] [place] [address] Peter Styles Jr., MD [address] [place] [address] Type 2 diabetes mellitus with ketoacidosis without coma, without long-term current use of insulin ([facility]) (Primary Dx) Social History Tobacco Use Types Packs/Day Years Used Date Smoking Tobacco: Every Day Cigarettes Smokeless Tobacco: Current Chew Alcohol Use Standard Drinks/Week Comments Yes 24 (1 standard drink = 0.6 oz pu re alcohol) CAGE negative. Case per week. 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 Over the last several days the glucose levels have increased from about 200 to recent levels of 417 now, 368 this morning and 467 yesterday. He also states that he is nauseated and has had vomiting over this time period. He had ketoacidosis in 2019 so that we need to rule out recurrent DKA. On 03-02-20 his glucose was 597, plasma ketones 3.8 (<0.5), bicarbonate 15 and anion gap 23. Anti-John antibody was not detectable. There does not appear to be any inciting cause today, however, except the need for more insulin. He has had no recent hypoglycemia. He injects with 33 gauge short pen needles from U500 pens and HL pens.His meter has been consistent with [facility] glucoses. I suggested the followin. CMP, A1c, anti-insulin Ab, and betahydroxybutyrate today. 2. Increase U500 to 95 units TID (30 unit/day change). Will not increase HL dose since it may be more convenient to go with an all-basal regimen with U500. 3. Portal us your glucoses tomorrow. 4. Appointment for Jan 06. documented in this encounter Miscellaneous Notes * Addendum Note - Rosalino Graham - 12/31/2019 1:11 PM CDTAddended by: ROSALINO GRAHAM on: 12/31/2019 05:45 PM Modules accepted: Orders * Addendum Note - Rosalino Graham - 12/31/2019 1:11 PM CDTAddended by: ROSALINO GRAHAM on: 12/31/2019 06:00 PM Modules accepted: Orders * Addendum Note - Juve Rose - 12/31/2019 1:11 PM CDTAddended by: JUVE ROSE on: 10/13/2020 05:58 PM Modules accepted: Orders documented in this encounter Plan of Treatment Not on file documented as of this encounter Results * (ABNORMAL) Comprehensive metabolic panel (12/31/2019 5:55 PM CDT) Sodium 134(L) 135 - 145 mmol/L [facility] Potassium, pl 4.2 3.3 - 4.9 mmol/L [facility] Chloride 97 97 - 110 mmol/L [facility] CO2 23 22 - 32 mmol/L [facility] Anion gap 14 2 - 15 mmol/L [facility] BUN 17 8 - 25 mg/dL [facility] Creatinine 0.81 0.80 - 1.30 mg/dL [facility] Glucose 281(H) 70 - 199 mg/dL [facility] Comment: Interpretive Data Fasting glucose [...] interpretive data was last revised 2017. Calcium 10.0 8.5 - 10.3 mg/dL [facility] Bilirubin, total 0.4 0.1 - 1.2 mg/dL [facility] Protein, pl 7.8 6.5 - 8.5 g/dL [facility] Albumin 4.5 3.5 - 5.0 g/dL [facility] Alk phos 98 40 - 130 Units/L [facility] ALT 114(H) 7 - 55 Units/L [facility] AST 81(H) 10 - 50 Units/L [facility] Blood specimen (specimen) 12/31/2019 5:55 PM CDT 12/31/2019 6:15 PM CDT us Peter Styles Jr., MD LAB BLOOD ORDERABLES Final Result Performing Organization Address City/[facility] [place] [address] * TSH (12/31/2019 5:55 PM CDT) [facility] Thyroid Stimulating Hormone 1.54 0.30 - 4.20 mcIUnit/mL [facility] Blood specimen (specimen) 12/31/2019 5:55 PM CDT 12/31/2019 6:15 PM CDT Peter Styles Jr., MD LAB BLOOD ORDERABLES Final Result Performing Organization Address [facility] [place] [address] * (ABNORMAL) Hemoglobin A1c (12/31/2019 5:55 PM CDT) [facility] Hgb A1C 8.7(H) 4.0 - 5.6 % [facility] Estimated Average Glucose 203 mg/dL [facility] Comment: The ADA recommends reporting an estimated Average Glucose (eAG) with all Hemoglobin A1c results using the equation derived from a study of 507 normal and diabetic adults. ??Minority populations were underrepresented and children were not included. ?? (Diabetes Care 31:2727-3718, 2008). ??The eAG is not equivalent to a fasting glucose. Blood specimen (specimen) 12/31/2019 5:55 PM CDT 12/31/2019 6:15 PM CDT us Peter Styles Jr., MD LAB BLOOD ORDERABLES Final Result Performing Organization Address [facility] [place] [address] * (ABNORMAL) CBC with auto differential (12/31/2019 5:55 PM CDT) [facility] WBC 5.8 3.8 - 9.9 K/cumm [facility] Hgb 15.6 13.0 - 17.5 g/dL [facility] Hct 43.1 38.9 - 50.3 % [facility] Plt 327 150 - 400 K/cumm [facility] MPV 9.9 9.1 - 12.3 fL [facility] RBC 5.21 4.30 - 5.80 M/cumm [facility] MCV 82.7 81.3 - 96.4 fL [facility] MCH 29.9 27.1 - 33.3 pg [facility] MCHC 36.2(H) 32.3 - 35.7 g/dL [facility] RDW CV 12.3 11.1 - 14.9 % [facility] RDW SD 36.9 35.7 - 48.1 fL [facility] NRBC abs 0.00 0.00 - 0.01 K/cumm [facility] Blood specimen (specimen) 12/31/2019 5:55 PM CDT 12/31/2019 6:15 PM CDT us Peter Styles Jr., MD LAB BLOOD ORDERABLES Final Result Performing Organization Address City/[facility]/ZIP Co de Phone Number [facility] [place] [address] * Beta-hydroxybutyrate (12/31/2019 5:55 PM CDT) [facility] Beta-Hydroxybut yrate 0.1 0.0 - 0.5 mmol/L [facility] Blood specimen (specimen) 12/31/2019 5:55 PM CDT 12/31/2019 6:15 PM CDT us Peter Styles Jr., MD LAB BLOOD ORDERABLES Edited Result - Final Performing Organization Address [facility]/ZIP Co de Phone Number [facility] [place] [address] * Insulin antibody (12/31/2019 5:55 PM CDT) Insulin ab 0.00 0.00 - 0.02 nmol/L [facility] Comment: ADDITIONAL INFORMATION This test was developed and its performance characteristics determined by [facility] in a manner consistent with CLIA requirements. This test has not been cleared or approved by the U.S. Food and Drug Administration. Test Performed by: [facility] - [address] [address] Greaser Operator: Josiah Turk M.D. Ph.D.; CLIA# [id number] Blood specimen (specimen) 12/31/2019 5:55 PM CDT 12/31/2019 6:31 PM CDT Peter Styles Jr., MD LAB BLOOD ORDERABLES Final Result [facility] [address] [facility] [place] [address] documented in this encounter Visit Diagnoses Diagnosis Type 2 diabetes mellitus with ketoacidosis without coma, without long-term current use of insulin (HCC)- Primary documented in this encounter Additional Health Concerns Infection Onset Date Last Indicated Resolved Time COVID: Suspected 01/14/2020 01/14/2020 01/14/2020 6:21 PM CDT COVID19 01/15/2020 01/15/2020 01/31/2020 3:06 AM CDT COVID: Recovered Comment:Added based on recent COVID infection. 01/31/2020 05/19/2020 05/30/2020 3:[address] documented as of this encounter Care Teams Humanities Department Chair Relationship Specialty Start Date End Date Jann Burrows MD [address] [facility] [address] [place] [address] PCP - General Hematology 03/13/19 10/28/21 Mariana Monique MD [address] [place] [address] Referring Physician Internal Medicine 01/17/20 documented as of this encounter
--- OUTSIDE RECORDS SUMMARY | 2024-05-10 17:14 | XMS_ITS | Encounter Summary ---
Author Organization [facility] Address [address] [place] [address] Care Team Providers Care Crew Truck Driver Name Role Phone Jann Burrows MD Primary Care Provider [phone] Mariana Monique MD Unavailable [phone] Encounter Details Date Type Department Care Team (Late st Contact Info) Description 06/09/2021 Telephone [facility] [address] [facility] [address] [place] [address] Jann Burrows MD [address] [facility] [address] [place] [address] Social History Tobacco Use Types Packs/Day Years Used Date Smoking Tobacco: Never Smokeless Tobacco: Former Chew Quit: 01/13/2019 Alcohol Use Standard Drinks/Week Comments Not Currently 0 (1 standard drink = 0.6 oz pur e alcohol) Sex and Gender Information Value Date Recorded Sex Assigned at Not on file Legal Sex Male 5:01 AM PROTOTYPE ENGINEER MANAGER Gender Identity Male 12/18/2017 12:38 PM CDT Sexual Orientation Not on file 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 Patient is scheduled for 06-19-21. Jc Campoverde [phone] OTYPE ENGINEER MANAGER * Telephone Encounter - Sallie Pimentel - 06/09/2021 2:31 PM CST ----- Message from Anna Low RN sent at 06/07/2021 9:20 AM PROTOTYPE ENGINEER MANAGER ----- Regarding: hospital follow up request Patient needs hospital follow up appointment within 4-5 days. Plan for discharge tomorrow. Thank you, Anna Low RN, OTYPE ENGINEER MANAGER documented in this encounter Plan of Treatment Not on file documented as of this encounter Visit Diagnoses Not on filedocumented in this encounter Care Teams Crew Truck Driver Relationship Specialty Start Date End Date Jann Burrows MD [address] [place] [address] PCP - General Hematology 03/13/19 10/28/21 Mariana Monique MD [address] [place], [place] [id number] Referring Physician Internal Medicine 01/17/20 documented as of this encounter
--- OUTSIDE RECORDS SUMMARY | 2024-05-10 17:14 | XMS_ITS | Encounter Summary ---
Author Organization [facility] Address [address] [place] [address] Phone Care Team Providers Care Cash Control Specialist Name Role Phone Jann Burrows MD Primary Care Provider [phone] Mariana Monique MD Unavailable [phone] Encounter Details Date Type Department Care Team (Late st Contact Info) Description 06/13/2021 Orders Only [facility] Endocrinology Metabolism and Lipid [address] [facility] Advanced Medicine 5th [place] [address] [place] [address] Peter Styles Jr., MD [address] [place] [address] Class 3 severe obesity due to excess calories with serious comorbidity and body mass index (BMI) of 40.0 to 44.9 in adult (HCC) (Primary Dx) Social History Tobacco Use Types Packs/Day Years Used Date Smoking Tobacco: Never Smokeless Tobacco: Former Chew Quit: 01/13/2019 Alcohol Use Standard Drinks/Week Comments Not Currently 0 (1 standard drink = 0.6 oz pur e alcohol) Sex and Gender Information Value Date Recorded Sex Assigned at Not on file Legal Sex Male 5:01 AM RELATIONS COORDINATOR Gender Identity Male 12/18/2017 12:38 PM CDT Sexual Orientation Not on file 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 Not on file documented as of this encounter Ordered Prescriptions Prescription Sig Dispense Quantity Refills Last Filled Start Date End Date semaglutide (WEGOVY) 0.25 mg/0.5 mL auto-injectorIndic ations:Class 3 severe obesity due to excess calories with serious comorbidity and body mass index (BMI) of 40.0 to 44.9 in adult ([facility]) Inject 0.5 mL (0.25 mg total) under the skin every 7 days 2 mL 06/13/2021 07/13/2021 documented in this encounter Progress Notes * Peter Styles Jr., MD - 06/13/2021 1:40 PM CST Patient was recently hospitalized for very high glucoses in association with systemic illness. He feels better now and I met him in the [facility] (which was closed) on 06-08-21. His glucoses were in the low 200s and he felt better on his home dose of insulin. I discussed weight loss as a treatment for his diabetes with ketosis/acidosis sever enough for admission on two occasions. We will start with diet and semaglutide 0.25 mg weekly. This appears to be covered by his insurance. TIONS COORDINATOR documented in this encounter Plan of Treatment Not on file documented as of this encounter Visit Diagnoses Diagnosis Class 3 severe obesity due to excess calories with serious comorbidity and body mass index (BMI) of 40.0 to 44.9 in adult ([facility])- Primary documented in this encounter Care Teams Cash Control Specialist Relationship Specialty Start Date End Date Jann Burrows MD [address] [place] [address] PCP - General Hematology 03/13/19 10/28/21 Mariana Monique MD [address] [place] [address] Referring Physician Internal Medicine 01/17/20 documented as of this encounter
--- OUTSIDE RECORDS SUMMARY | 2024-05-10 17:14 | XMS_ITS | Encounter Summary ---
Author Organization [facility] Address [address] [place] [address] Care Team Providers Care Square Shear Operator Name Role Phone Jann Burrows MD Primary Care Provider [phone] Mariana Monique MD Unavailable [phone] Encounter Details Date Type Department Care Team (Late st Contact Info) Description 03/14/2021 Documentation [facility] [address] 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
--- OUTSIDE RECORDS SUMMARY | 2024-05-10 17:14 | XMS_ITS | Encounter Summary ---
Author Organization [facility] Address [address] [place] [address] Phone Care Team Providers Care Accounting Support Specialist Name Role Phone Jann Burrows MD Primary Care Provider [phone] Mariana Monique MD Unavailable [phone] Reason for Referral * Cardiology (Routine) - Closed Specialty Diagnoses / Procedures Referred By Contac t Referred To Contact Diagnoses Asymmetric septal hypertrophy Benign essential hypertension Procedures Transthoracic Echo Complete W Doppler/CF Tania Beth MD Phone: tel: fax: [address] [address] Referral ID Status Reason Start Date Expiration Date Visits Re quested Visits Authorized [id number] Closed 05/25/2020 06/24/2021 1 1 AND SCIENCE DIVISION CHAIR Encounter Details Date Type Department Care Team (Late st Contact Info) Description 05/25/2020 1:00 PM MATH AND SCIENCE DIVISION CHAIR Office Visit [facility] Cardiology [facility] Advanced Medicine 8th [place] [address] [place] [address] Tania Beth MD [address] [facility] [address] [place] [address] Asymmetric septal hypertrophy (CMS/HCC) (Primary Dx); Benign essential hypertension; Dyslipidemia Social History Tobacco Use Types Packs/Day Years Used Date Smoking Tobacco: Never Smokeless Tobacco: Former Chew Quit: 01/13/2019 Alcohol Use Standard Drinks/Week Comments Not Currently 0 (1 standard drink = 0.6 oz pur e alcohol) Sex and Gender Information Value Date Recorded Sex Assigned at Not on file Legal Sex Male 5:01 AM MATH AND SCIENCE DIVISION CHAIR Gender Identity Male 12/18/2017 12:38 PM CDT Sexual Orientation Not on file 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 Not on file Not on file Not on file documented as of this encounter Last Filed Vital Signs Vital Sign Reading Time Taken Comments Blood Pressure 125/78 05/25/2020 12:47 PM MATH AND SCIENCE DIVISION CHAIR Pulse 80 05/25/2020 12:47 PM MATH AND SCIENCE DIVISION CHAIR Temperature 36.7 ??C (98.1 ??F) 05/25/2020 1 2:47 PM MATH AND SCIENCE DIVISION CHAIR Respiratory Rate - - Oxygen Saturation 98% 05/25/2020 12: 47 PM MATH AND SCIENCE DIVISION CHAIR Inhaled Oxygen Concentration - - Weight 174.9 kg (385 lb 9.6 oz) 021 12:47 PM MATH AND SCIENCE DIVISION CHAIR Height - - Body Mass Index 43.44 01/14/2020 9:50 PM CDT documented in this encounter Patient Instructions * Patient Instructions* Tania Beth MD - 05/25/2020 1:00 PM MATH AND SCIENCE DIVISION CHAIR Echocardiogram. Lipid panel next week. Congratulations on your weight loss! Keep up the good work! AND SCIENCE DIVISION CHAIR documented in this encounter Progress Notes * Tania Beth MD - 05/25/2020 1:00 PM CST Images from the original note were not included. Department of Medicine Tania Beth MD, MPHS, [facility] Cardiovascular Division Sales And Management Traineefrench polisher Patient Name: Geraldo Velez : 1995 Date of Service: 05/25/2020 Primary Care Provider: Jann Burrows MD Referring Provider: Self Referral Geraldo Velez returned today for cardiology follow-up. He is 24 y.o. and has a history of asymmetric septal hypertrophy, hypertension, extreme obesity, and insulin-treated diabetes mellitus. I last saw him in 07/2018. I reviewed the following: - Hospital admission Feb-Mar, 2019: presented with diabetic ketoacidosis with BG to 591. He was started on insulin. - Hospital admission December 2019 admitted with hyperglycemia, Hgb A1c 8.4. - Hospital admission to [facility] 01/2020 presented with SOB and cough, found to COVIDpneumonia, treated with steroids He states he has recently been well. He denies chest discomfort or shortness of breath. No residualsymptoms attributable to COVID. Senses of taste and smell have returned. No fatigue. No palpitations, LH, dizziness. No leg edema, orthopnea, PND, palpitations. He has lost a significant amount of weight since January (85#)--some attributable to COVID. He also quit drinking soda (previously 3 44-oz cups/day)--feels a lot better, more energy. He is not having any low blood sugars. Currently on carvedilol 25 mg bid, lisinopril 40 mg daily. For exercise, he walks 2 miles 3 days/week. 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 Outpatient Encounter Medications as of 05/25/2020 Medication Sig Dispense Refill ??? blood glucose diagnostic (OneTouch Ultra Test) strip Test daily before all meals/snacks and once before bedtime. 400 each 3 ??? carvediloL (COREG) 25 mg tablet Take 1 tablet (25 mg total) by mouth 2 (two) times a day with meals 180 tablet 3 ??? DULoxetine DR (CYMBALTA) 60 mg capsule Take 1 capsule (60 mg total) by mouth daily 90 capsule 1 ??? glucagon 1 mg injection ??? HumuLIN R U-500, Conc, Kwikpen 500 unit/mL (3 mL) CONCENTRATED injection ??? insulin lispro (HumaLOG, ADMELOG) 100 unit/mL insulin pen Inject 10 Units under the skin 3 (three) times a day with meals 5 pen 5 ??? insulin regular U-500 (HumuLIN R U-500) 500 unit/mL CONCENTRATED injection Inject 95 Units under the skin 3 (three) times a day ??? lisinopriL (PRINIVIL,ZESTRIL) 40 mg tablet Take 1 tablet (40 mg total) by mouth daily 90 tablet1 ??? metFORMIN (GLUCOPHAGE) 500 mg tablet Take 1,000 mg by mouth 2 (two) times a day with meals ??? NovoLOG Flexpen U-100 Insulin 100 unit/mL (3 mL) insulin pen ??? pen needle, diabetic (BD ULTRA-FINE RADHA PEN NEEDLE) 32 gauge x 5/32 needle Use to inject insulin BG three times a day as instructed 450 each 3 ??? pen needle, diabetic 32 gauge x 5/32 needle Use as directed 3 times a day. 100 each 0 ??? atorvastatin (LIPITOR) 20 mg tablet Take 1 tablet (20 mg total) by mouth daily 90 tablet 3 ??? blood-glucose meter kit 1 kit once for 1 dose Patient needs in room for diabetes education 1 each 0 ??? metFORMIN (GLUCOPHAGE) 500 mg tablet Take 2 tablets (1,000 mg total) by mouth 2 (two) times a day with meals 360 tablet 3 ??? mupirocin (BACTROBAN) 2 % ointment Apply topically 3 (three) times a day (Patient not taking: Reported on 05/25/2020) 30 g 0 ??? [DISCONTINUED] OneTouch Delica Plus Lancet 33 gauge misc No facility-administered encounter medications on file as of 05/25/2020. He has No Known Allergies. PHYSICAL EXAM: BP 125/78 (BP Location: Left arm, Patient Position: Sitting) Pulse 80 Temp 36.7 ??C (98.1 ??F) (Oral) Wt (!) 174.9 kg (385 lb 9.6 oz) SpO2 98% BMI 43.44 kg/m?? BP Readings from Last 3 Encounters: 05/25/20 125/78 01/17/20 134/71 12/25/19 163/87 Wt Readings from Last 3 Encounters: 05/25/20 (!) 174.9 kg (385 lb 9.6 oz) 01/14/20 (!) 210.2 kg (463 lb 6.5 oz) 12/25/19 (!) 218.1 kg (480 lb 14.4 oz) Body mass index is 43.44 kg/m??. General: tall, very large young white man, well-nourished, no acute distress HEENT: Extraocular muscles intact, conjunctivae clear Neck: Supple. No goiter. Jugular venous pressure is normal. No carotid bruits. Brisk carotid upstrokes. Respiratory: Breathing comfortably. Lungs clear to auscultation bilaterally; no wheezing/rales/rhonchi. Cardiovascular: Normal rate and regular rhythm, normal S1 and S2. No S3 or S4. No murmurs or rubs. Peripheral pulses: 2+ radial Abdomen: very obese, soft, non-tender, no palpable masses, no hepatosplenomegaly Extremities: no cyanosis or clubbing. No edema Musculoskeletal: no obvious joint deformities Skin: warm and dry; acanthosis nigricans present Psychiatric: normal affect and mood Neurologic: awake/alert, no gross focal deficits RESULTS: I have personally reviewed and analyzed the following: Lab Results Component Value Date SODIUM 132 (L) 01/17/2020 POTASSIUM 4.6 01/17/2020 BUNSER 15 01/17/2020 BUNSER 13 01/16/2020 BUNSER 14 01/14/2020 CREATININE 0.72 (L) 01/17/2020 CREATININE 0.60 (L) 01/16/2020 CREATININE 0.81 01/14/2020 glucose elevated at 269, normal Cr 0.7. Lab Results Component Value Date CHOL 175 12/19/2019 TRIG 785 (H) 12/19/2019 HDL 22 (L) 12/19/2019 LDLCALC See Comment 12/19/2019 LDLDIRECT 60 12/19/2019 Lipids: markedly elevated triglycerides, normal direct LDL, low HDL. Cardiac MRI 04/2018: He had asymmetric septal hypertrophy with sigmoid septum measuring 17 mm, primarily of the plogrbbr-el-cev interventricular septum. There was no systolic anterior motion of the mitral valve. It was thought that his findings could be consistent with hypertension. ASSESSMENT/PLAN: Geraldo Velez is a 24 y.o. man with the following: Asymmetric septal hypertrophy - secondary to hypertension vs HCM; no ROMAN on his TTE or cardiac MRI - he had a negative genetic screen for known HCM variants several years ago - will repeat an echocardiogram Hypertension, controlled -continue carvedilol and lisinopril; he had a BMP in December which showed stable renal function and potassium Dyslipidemia with hypertriglyceridemia and low HDL - will repeat lipid panel next week given his significant weight loss Morbid obesity, congratulated on weight loss and encouraged ongoing efforts. Return to clinic in 1 year. Thank you for allowing me to participate in Mr. Velez's care. Please feel free to call me at with any questions or concerns. Respectfully, Tania Beth MD, MPHS, [facility] Sales And Management Traineefrench polisher Cardiovascular Division [facility] --- Please note: This note was generated in part using voice-recognition software and may contain sheet metal former errors. AND SCIENCE DIVISION CHAIR documented in this encounter Plan of Treatment Not on file documented as of this encounter Results * TRANSTHORACIC ECHO (TTE) COMPLETE W DOPPLER/CF W CONTRAST (06/02/2020 10:27 AM MATH AND SCIENCE DIVISION CHAIR) Anatomical Region Laterality Modality Ultrasound 06/02/2020 9:30 AM MATH AND SCIENCE DIVISION CHAIR Narrative 06/03/2020 10:15 PM MATH AND SCIENCE DIVISION CHAIR Patient name: Geraldo Velez Date of test: 06/02/2020 Type of test: TTE w/Doppler [facility] #: [id number] Date of : 1995 (M) Ramp Service Man: Angélica Heath(Ragini), [facility] Referring Physician: TANIA BETH MD Contrast Agent: 0.4 ml Optison Administered, (2.6 ml wasted). Contrast Administered by: Yahaira Hatch RN Supervised/Interpreted by: Noreen Jha MD Diagnosis: Location: [facility] Reason for test: Asymetrical Septal hypertrophy, [...] 2=Hypo 3=Akinetic 4=Dyskin./Aneurysm 0=Not visualized) Parasternal Long [place]:MAS=1 BAS=1 MIL=1 ANABELLE=1 Parasternal Short [place]:MAS=1 MIS=1 VT=1 MIL=1 MAL=1 MA=1 Apical 4 Chambers:=1 MIS=1 BIS=1 BAL=1 MAL=1 AL=1 AC=1 Apical 2 Chambers:AI=1 VT=1 BI=1 BA=1 MA=1 AA=1 AC=1 LV Global Longitudinal Strain: -13.2% ??(Normal <-17%) RV Global Longitudinal Strain: LV Function: Normal LV Ejection Fraction, (EF=52-72%) RV Function: mild global hypokinesis Septal Motion: normal Pericardial Effusion: none seen Atrial Septum: Normal on 2D DOPPLER/COLOR FLOW DOPPLER RESULTS: Diastolic Function: normal Tricuspid Valve: No TR Pulmonic Valve: No LA AV Regurgitation: No AR seen AV Stenosis: [...] no , no MS, No TR, No LA. Diastolic function: normal CONTRAST: 0.4 ml Optison [...] MD By signing this report, the attending glass handler certifies that he or she has personally supervised and interpreted the echocardiogram and has reviewed and or edited and agrees with the written comments contained within the report. Procedure Note Noreen Jha MD - 06/03/2020 Patient name: Geraldo Velez Date of test: 06/02/2020 Type of test: E /[facility] #: [id number] Date of : 1995 (M) Ramp Service Man: Angélica Baez), [facility] Referring Physician: TANIA BETH MD Contrast Agent: 0.4 ml Optison Administered, (2.6 ml wasted). Contrast Administered by: Yahaira Hatch RN Supervised/Interpreted by: Noreen Jha MD Diagnosis: Location: [facility] Reason for test: Asymetrical Septal hypertrophy, HTN [...] 2=Hypo 3=Akinetic 4=Dyskin./Aneurysm 0=Not visualized) Parasternal Long [place]:MAS=1 BAS=1 MIL=1 ANABELLE=1 Parasternal Short [place]:MAS=1 MIS=1 VT=1 MIL=1 MAL=1 MA=1 Apical 4 Chambers:=1 MIS=1 BIS=1 BAL=1 MAL=1 AL=1 AC=1 Apical 2 Chambers:AI=1 VT=1 BI=1 BA=1 MA=1 AA=1 AC=1 LV Global Longitudinal Strain: -13.2% (Normal <-17%) RV Global Longitudinal Strain: LV Function: Normal LV Ejection Fraction, (EF=52-72%) RV Function: mild global hypokinesis Septal Motion: normal Pericardial Effusion: none seen Atrial Septum: Normal on 2D DOPPLER/COLOR FLOW DOPPLER RESULTS: Diastolic Function: normal Tricuspid Valve: No TR Pulmonic Valve: No LA AV Regurgitation: No AR seen AV Stenosis: [...] no , no MS, No TR, No LA. Diastolic function: normal CONTRAST: 0.4 ml Optison [...] MD By signing this report, the attending glass handler certifies that he or she has personally supervised and interpreted the echocardiogram and has reviewed and or edited and agrees with the written comments contained within the report. us Tania Beth MD CV ECHO PROCEDURES Final Resu lt documented in this encounter Visit Diagnoses Diagnosis Asymmetric septal hypertrophy- Primary Benign essential hypertension Essential hypertension, benign Dyslipidemia Other and unspecified hyperlipidemia Asymmetric septal hypertrophy Benign essential hypertension Essential hypertension, benign documented in this encounter Discontinued Medications Medication Sig Discontinue Reason Start Date End Da te OneTouch Delica Plus Lancet 33 gauge misc 08/14/2019 05/25/2020 documented as of this encounter Historical Medications * This list may reflect changes made after this encounter. metFORMIN (GLUCOPHAGE) 500 mg tablet Take 1,000 mg by mouth 2 (two) times a day with meals 05/26/2020 NovoLOG Flexpen U-100 Insulin 100 unit/mL (3 mL) insulin pen 05/24/2020 06/07/2021 HumuLIN R U-500, Conc, Kwikpen 500 unit/mL (3 mL) CONCENTRATED injection 04/04/2020 06/07/2021 added in this encounter Additional Health Concerns Infection Onset Date Last Indicated Resolved Time COVID: Recovered Comment:Added based on recent COVID infection. 01/31/2020 05/19/2020 05/30/2020 3:[address] documented as of this encounter Care Teams Accounting Support Specialist Relationship Specialty Start Date End Date Jann Burrows MD [address] [place] [address] PCP - General Hematology 03/13/19 10/28/21 Mariana Monique MD [address] [place] [address] Referring Physician Internal Medicine 01/17/20 documented as of this encounter
--- OUTSIDE RECORDS SUMMARY | 2024-05-10 17:14 | XMS_ITS | Encounter Summary ---
Author Organization [facility] Healthcare Address [address] [place] [address] Care Team Providers Care Client Success Director Name Role Phone Jann Burrows MD Primary Care Provider [phone] Encounter Details Date Type Department Care Team (Late st Contact Info) Description 12/31/2019 6:10 PM CDT Lab [facility] ([facility]) [address] [place] [phone] Type 2 diabetes mellitus with ketoacidosis without coma, without long-term current use of insulin (CMS/HCC) Social History Tobacco Use Types Packs/Day Years Used Date Smoking Tobacco: Every Day Cigarettes Smokeless Tobacco: Current Chew Alcohol Use Standard Drinks/Week Comments Yes 24 (1 standard drink = 0.6 oz pu re alcohol) CAGE negative. Case per week. 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 Not on file Not on file Not on file documented as of this encounter Plan of Treatment Not on file documented as of this encounter Procedures Procedure Name Priority Date/Time Associated Diagnosis Comments DIFFERENTIAL AUTO Routine 12/31/2019 5:5 5 PM CDT Type 2 diabetes mellitus with ketoacidosis without coma, without long-term current use of insulin (CMS/HCC) BETA-HYDROXYBUTYRATE Routine 12/31/2019 5:55 PM CDT Type 2 diabetes mellitus with ketoacidosis without coma, without long-term current use of insulin (CMS/HCC) CBC WITH AUTO DIFFERENTIAL Routine 12/31/2019 5:55 PM CDT Type 2 diabetes mellitus with ketoacidosis without coma, without long-term current use of insulin (CMS/HCC) INSULIN ANTIBODY Routine 12/31/2019 5:55 PM CDT Type 2 diabetes mellitus with ketoacidosis without coma, without long-term current use of insulin ([facility]) C-PEPTIDE Routine 12/31/2019 5:55 PM CDT Type 2 diabetes mellitus with ketoacidosis without coma, without long-term current use of insulin ([facility]) TSH Routine 12/31/2019 5:55 PM CDT Type 2 diabetes mellitus with ketoacidosis without coma, without long-term current use of insulin ([facility]/HCC) HEMOGLOBIN A1C Routine 12/31/2019 5:55 PM CDT Type 2 diabetes mellitus with ketoacidosis without coma, without long-term current use of insulin ([facility]) COMPREHENSIVE METABOLIC PANEL Routine 12/31/2019 5:55 PM CDT Type 2 diabetes mellitus with ketoacidosis without coma, without long-term current use of insulin ([facility]/HCC) documented in this encounter Results * Differential, auto (12/31/2019 5:55 PM CDT) Neutrophil abs 2.9 1.7 - 6.5 K/cumm [facility] Imm gran abs 0.0 0.0 - 0.1 K/cumm [facility] Lymphocyte abs 2.1 0.8 - 3.3 K/cumm [facility] Monocyte abs 0.5 0.2 - 0.8 K/cumm [facility] Eosinophil abs 0.2 0.0 - 0.5 K/cumm [facility] Basophil abs 0.0 0.0 - 0.1 K/cumm [facility] Neutrophil pct 49.7 % [facility] Comment: Interpretive Data Percent cell count reference ranges are not reported, since discordance with absolute values may lead to misinterpretation of CBC data. Current Interpretive Data was last revised on 2017. Imm gran pct 0.3 % [facility] Comment: Interpretive Data Percent cell count reference ranges are not reported, since discordance with absolute values may lead to misinterpretation of CBC data. Current Interpretive Data was last revised on 2017. Lymphocyte pct 36.8 % [facility] Comment: Interpretive Data Percent cell count reference ranges are not reported, since discordance with absolute values may lead to misinterpretation of CBC data. Current Interpretive Data was last revised on 2017. Monocyte pct 9.1 % [facility] Comment: Interpretive Data Percent cell count reference ranges are not reported, since discordance with absolute values may lead to misinterpretation of CBC data. Current Interpretive Data was last revised on 2017. Eosinophil pct 3.4 % [facility] Comment: Interpretive Data Percent cell count reference ranges are not reported, since discordance with absolute values may lead to misinterpretation of CBC data. Current Interpretive Data was last revised on 2017. Basophil pct 0.7 % [facility] Comment: Interpretive Data Percent cell count reference ranges are not reported, since discordance with absolute values may lead to misinterpretation of CBC data. Current Interpretive Data was last revised on 2017. Blood specimen (specimen) 12/31/2019 5:55 PM CDT 12/31/2019 6:15 PM CDT us Peter Styles Jr., MD LAB BLOOD ORDERABLES Final Result [facility] Department [place] [address] * Insulin antibody (12/31/2019 5:55 PM CDT) Insulin ab 0.00 0.00 - 0.02 nmol/L [facility] Comment: ADDITIONAL INFORMATION This test was developed and its performance characteristics determined by [facility] in a manner consistent with CLIA requirements. This test has not been cleared or approved by the U.S. Food and Drug Administration. Test Performed by: [facility] [address] [address] Hand Wrapper Operator: Josiah Turk M.D. Ph.D.; CLIA# [id number] Blood specimen (specimen) 12/31/2019 5:55 PM CDT 12/31/2019 6:31 PM CDT us Peter Styles Jr., MD LAB BLOOD ORDERABLES Final Result Performing Organization Address [facility] Co de Phone Number [facility] [employer] [place] [address] * Beta-hydroxybutyrate (12/31/2019 5:55 PM CDT) [facility] Beta-Hydroxybut yrate 0.1 0.0 - 0.5 mmol/L [facility] Blood specimen (specimen) 12/31/2019 5:55 PM CDT 12/31/2019 6:15 PM CDT us Peter Styles Jr., MD LAB BLOOD ORDERABLES Edited Result - Final Performing Organization Address [facility] Co de Phone Number [facility] [employer] [place] [address] * (ABNORMAL) CBC with auto differential (12/31/2019 5:55 PM CDT) Pathologist [facility] WBC 5.8 3.8 - 9.9 K/cumm [facility] Hgb 15.6 13.0 - 17.5 g/dL [facility] Hct 43.1 38.9 - 50.3 % [facility] Plt 327 150 - 400 K/cumm [facility] MPV 9.9 9.1 - 12.3 fL [facility] RBC 5.21 4.30 - 5.80 M/cumm [facility] MCV 82.7 81.3 - 96.4 fL [facility] MCH 29.9 27.1 - 33.3 pg [facility] MCHC 36.2(H) 32.3 - 35.7 g/dL [facility] RDW CV 12.3 11.1 - 14.9 % [facility] RDW SD 36.9 35.7 - 48.1 fL [facility] NRBC abs 0.00 0.00 - 0.01 K/cumm [facility] Blood specimen (specimen) 12/31/2019 5:55 PM CDT 12/31/2019 6:15 PM CDT us Peter Styles Jr., MD LAB BLOOD ORDERABLES Final Result Performing Organization Address [facility] de Phone Number [facility] [employer] [place] [address] * (ABNORMAL) Hemoglobin A1c (12/31/2019 5:55 PM CDT) Hgb A1C 8.7(H) 4.0 - 5.6 % [facility] Estimated Average Glucose 203 mg/dL [facility] Comment: The ADA recommends reporting an estimated Average Glucose (eAG) with all Hemoglobin A1c results using the equation derived from a study of 507 normal and diabetic adults. ??Minority populations were underrepresented and children were not included. ?? (Diabetes Care 31:4555-0933, 2008). ??The eAG is not equivalent to a fasting glucose. Blood specimen (specimen) 12/31/2019 5:55 PM CDT 12/31/2019 6:15 PM CDT us Peter Styles Jr., MD LAB BLOOD ORDERABLES Final Result Performing Organization Address [facility] de Phone Number [facility] [employer] [place] [address] * TSH (12/31/2019 5:55 PM CDT) Thyroid Stimulating Hormone 1.54 0.30 - 4.20 mcIUnit/mL [facility] Blood specimen (specimen) 12/31/2019 5:55 PM CDT 12/31/2019 6:15 PM CDT Peter Styles Jr., MD LAB BLOOD ORDERABLES Final Result [facility] Department [place] [address] * (ABNORMAL) Comprehensive metabolic panel (12/31/2019 5:55 PM CDT) Sodium 134(L) 135 - 145 mmol/L [facility] Potassium, pl 4.2 3.3 - 4.9 mmol/L [facility] Chloride 97 97 - 110 mmol/L [facility] CO2 23 22 - 32 mmol/L [facility] Anion gap 14 2 - 15 mmol/L [facility] BUN 17 8 - 25 mg/dL [facility] Creatinine 0.81 0.80 - 1.30 mg/dL [facility] Glucose 281(H) 70 - 199 mg/dL [facility] Comment: Interpretive Data Fasting glucose >/= [...] 2017. Calcium 10.0 8.5 - 10.3 mg/dL [facility] Bilirubin, total 0.4 0.1 - 1.2 mg/dL [facility] Protein, pl 7.8 6.5 - 8.5 g/dL [facility] Albumin 4.5 3.5 - 5.0 g/dL [facility] Alk phos 98 40 - 130 Units/L [facility] ALT 114(H) 7 - 55 Units/L [facility] AST 81(H) 10 - 50 Units/L [facility] Blood specimen (specimen) 12/31/2019 5:55 PM CDT 12/31/2019 6:15 PM CDT us Peter Styles Jr., MD LAB BLOOD ORDERABLES Final Result Performing Organization Address [facility] Co de Phone Number [facility] [place] [address] * (ABNORMAL) C-peptide (12/31/2019 5:55 PM CDT) C-peptide 11.2(H) 1.1 - 4.4 ng/mL [facility] Blood specimen (specimen) 12/31/2019 5:55 PM CDT 12/31/2019 6:15 PM CDT us Peter Styles Jr., MD LAB BLOOD ORDERABLES Final Result Performing Organization Address [facility] de Phone Number [facility] [place] [address] documented in this encounter Visit Diagnoses Diagnosis Type 2 diabetes mellitus with ketoacidosis without coma, without long-term current use of insulin (HCC) documented in this encounter Care Teams Client Success Director Relationship Specialty Start Date End Date Jann Burrows MD [address] [place] [address] [address] [place] [address] PCP - General Hematology 03/13/19 10/28/21 documented as of this encounter
--- OUTSIDE RECORDS SUMMARY | 2024-05-10 17:14 | XMS_ITS | Encounter Summary ---
Author Organization [facility] Healthcare Address [address] [place] [address] Care Team Providers Care Health Underwriter Name Role Phone Jann Burrows MD Primary Care Provider [phone] Mariana Self MD Unavailable [phone] Reason for Visit * Reason Comments COVID-19 EVALUATION Encounter Details Date Type Department Care Team (Latest Contact Info) Description 01/14/2020 5:54 PM CDT - 01/17/2020 10:35 AM CDT Hospital Encounter [facility] IMU [address] [place] [address] Francine Denis MD [address] [place] [address] Berenice Lassiter MD [address] [place] [address] Giuliano Linton Jr., MD [address] [place] [address] [place] [address] Pneumonia due to COVID-19 virus (Primary Dx); Tachycardia; Elevated LFTs Discharge Disposition: Discharge to home or self care Social History Tobacco Use Types Packs/Day Years Used Date Smoking Tobacco: Never Smokeless Tobacco: Former Chew Quit: 01/13/2019 Alcohol Use Standard Drinks/Week Comments Not Currently 0 (1 standard drink = 0.6 oz pur e alcohol) Sex and Gender Information Value Date Recorded Sex Assigned at Not on file 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 Gender Identity Male 12/18/2017 12:38 PM CDT Sexual Orientation Not on file 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 Not on file Not on file Not on file documented as of this encounter Last Filed Vital Signs Vital Sign Reading Time Taken Comments Blood Pressure 134/71 01/17/2020 8:13 AM CDT Pulse 57 01/17/2020 8:13 AM CDT Temperature 35.6 ??C (96.1 ??F) 01/17/2020 8:13 AM CD T Respiratory Rate 18 01/17/2020 8:13 AM CDT Oxygen Saturation 97% 01/17/2020 8:13 AM CDT Inhaled Oxygen Concentration - - Weight 210.2 kg (463 lb 6.5 oz) 01/14/2020 9:50 PM CDT Height 200.7 cm (6' 7 ) 01/14/2020 9:5 0 PM CDT Body Mass Index 52.2 01/14/2020 9:50 PM CDT documented in this encounter Discharge Diagnoses Diagnosis COVID-19 - COVID-19 Other viral pneumonia - OTHER VIRAL PNEUMONIA Body mass index (BMI) 50.0-59.9, adult - BODY MASS INDEX (BMI) 50.0-59.9, ADULT Fatty (change of) liver, not elsewhere classified - FATTY (CHANGE OF) LIVER, NOT ELSEWHERE CLASSIFIED Type 2 diabetes mellitus without complications (CMS/HCC) (HCC) - TYPE 2 DIABETES MELLITUS WITHOUT COMPLICATIONS Morbid (severe) obesity due to excess calories (HCC) - MORBID (SEVERE) OBESITY DUE TO EXCESS CALORIES Essential (primary) hypertension - ESSENTIAL (PRIMARY) HYPERTENSION Unspecified essential hypertension Nicotine dependence, cigarettes, uncomplicated - NICOTINE DEPENDENCE, CIGARETTES, UNCOMPLICATED Major depressive disorder, single episode, unspecified - MAJOR DEPRESSIVE DISORDER, SINGLE EPISODE, UNSPECIFIED Anxiety disorder, unspecified - ANXIETY DISORDER, UNSPECIFIED Tachycardia, unspecified - TACHYCARDIA, UNSPECIFIED Other residential (current) drug therapy - OTHER C[employer]S (CURRENT) DRUG THERAPY [facility] (current) use of insulin (HCC) - ASSISTED (CURRENT) USE OF INSULIN Family history of diabetes mellitus - FAMILY HISTORY OF DIABETES MELLITUS documented in this encounter Discharge Summaries * Giuliano Linton Jr., MD - 01/17/2020 10:02 AM CDT [place], [place] Hospitalist Discharge Summary Patient Name: Cristi Velez Patient : 1995 Room/Bed: [id number] Admission Date/Time: 01/14/2020 5:54 PM Discharge date: 01/17/2020 Admitting Physician: Berenice Lassiter MD Discharge Physician: Giuliano Linton Jr., MD Consults: Discharge Diagnoses: Principal Problem: Pneumonia due to COVID-19 virus Active Problems: Asymmetric septal hypertrophy (CMS/HCC) Essential hypertension Morbid obesity with BMI of 50.0-59.9, adult (CMS/HCC) Fatty liver Type 2 diabetes mellitus without complication, with long-term current use of insulin (CMS/HCC) Transaminitis Resolved Problems: No resolved hospital problems. Hospital Course: For full details of presentation including detailed history, past medical, surgical, social, family history and detailed ROS, as well as detailed exam and labs at time of presentation, please see the History and Physical. 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 Continue Decadron day 2 of 10 maximum while requiring supplemental O2. No indication for remdesivir at this time as his is not hypoxic. Monitor respiratory status. Trend d-dimer and ferritin. ?? Sinus tachycardia Heart rate now improved from 120s on arrival to 80s-90s. Continue to monitor. ?? Transaminitis Baseline elevation present due to hepatic steatosis, likely exacerbated by acute infection, will monitor. ?? Type 2 DM Monitor glucose and adjust insulin as necessary. ?? DVT PPx ?? Update 01/15: Shortness of breath mostly resolved. Will stop antibiotics as there is no evidence of bacterial infection at this point. Will continue dexamethasone for 2 more days. Transaminitis resolving (AST back down to normal, ALT significantly improved). Anticipate discharge home tomorrow if respiratory status remains stable. Update 01/16: The patient became nauseous and vomited shortly after dexamethasone administration, but has had no nausea since then and tolerated his breakfast well. His shortness of breath has completely resolved anyway so will stop dexamethasone at this time, no need to continue on discharge. AST remains normal and ALT is stable. Patient was discharged home with instructions to self isolate at home for at least 20 days since the onset of his first symptom (will be finished 02/03/20) or 3 days after the resolution of his last symptom, whichever is later. Issues to be addressed with Primary Care or Other Outpatient Physician (Unresulted Labs, Repeat Testing, Medication Adjustments, etc) Instructed to call his PCP to arrange a telemedicine appointment in 1-2 weeks. Discharge Exam: Vitals: 01/17/20 0200 01/17/20 0349 01/17/20 0600 01/17/20 0813 BP: 118/67 134/71 BP Location: Left arm Right arm Patient Position: Lying Lying Pulse: 53 52 55 57 Resp: 18 18 Temp: 36.4 ??C (97.5 ??F) (!) 35.6 ??C (96.1 ??F) TempSrc: Temporal Temporal SpO2: 96% 97% Weight: Height: Exam performed via video chat Gen: awake, no acute distress, pleasant and cooperative, resting comfortably in bed Neuro: no focal deficits, CN II-XII grossly intact Eyes: extraocular movement intact, sclerae anicteric HENT: trachea midline, mucosa moist CV: auscultation deferred because of COVID-19 isolation precautions; no peripheral edema Pulm: auscultation deferred because of COVID-19 isolation precautions; breathing nonlabored GI: auscultation deferred because of COVID-19 isolation precautions; morbidly obese MSK: no cyanosis, clubbing, joint swelling, joint erythema Skin: no visible erythema, acute bruising, or open wounds Psych: normal mood and affect Labs: (last 48 hours): Recent Results (from the past 48 hour(s)) POCT glucose Collection Time: 01/15/20 11:28 AM Result Value Ref Range Glucose, POC 319 (H) 71 - 98 mg/dL POCT glucose Collection Time: 01/15/20 5:01 PM Result Value Ref Range Glucose, POC 334 (H) 71 - 98 mg/dL POCT glucose Collection Time: 01/15/20 8:38 PM Result Value Ref Range Glucose, POC 326 (H) 71 - 98 mg/dL POCT glucose Collection Time: 01/16/20 2:20 AM Result Value Ref Range Glucose, POC 304 (H) 71 - 98 mg/dL POCT glucose Collection Time: 01/16/20 6:32 AM Result Value Ref Range Glucose, POC 274 (H) 71 - 98 mg/dL CBC without differential Collection Time: 01/16/20 7:03 AM Result Value Ref Range WBC 4.4 3.8 - 9.9 K/cumm Hgb 13.6 13.0 - 17.5 g/dL Hct 39.5 38.9 - 50.3 % Plt 235 150 - 400 K/cumm MPV 9.6 9.1 - 12.3 fL RBC 4.72 4.30 - 5.80 M/cumm MCV 83.7 81.3 - 96.4 fL MCH 28.8 27.1 - 33.3 pg MCHC 34.4 32.3 - 35.7 g/dL RDW CV 11.9 11.1 - 14.9 % RDW SD 36.1 35.7 - 48.1 fL NRBC abs 0.00 0.00 - 0.01 K/cumm Magnesium Collection Time: 01/16/20 7:03 AM Result Value Ref Range Magnesium 2.3 1.4 - 2.5 mg/dL Phosphorus Collection Time: 01/16/20 7:03 AM Result Value Ref Range Phosphorus, pl 3.9 2.3 - 4.5 mg/dL Ferritin Collection Time: 01/16/20 7:03 AM Result Value Ref Range Ferritin 1,523 (H) 30 - 400 ng/mL Comprehensive metabolic panel Collection Time: 01/16/20 7:03 AM Result Value Ref Range Sodium 130 (L) 135 - 145 mmol/L Potassium, pl 4.2 3.3 - 4.9 mmol/L Chloride 97 97 - 110 mmol/L CO2 21 (L) 22 - 32 mmol/L Anion gap 13 2 - 15 mmol/L BUN 13 8 - 25 mg/dL Creatinine 0.60 (L) 0.80 - 1.30 mg/dL Glucose 283 (H) 70 - 199 mg/dL Calcium 9.2 8.5 - 10.3 mg/dL Bilirubin, total 0.4 0.1 - 1.2 mg/dL Protein, pl 7.6 6.5 - 8.5 g/dL Albumin 4.1 3.5 - 5.0 g/dL Alk phos 61 40 - 130 Units/L ALT 107 (H) 7 - 55 Units/L AST 50 10 - 50 Units/L D-dimer, quantitative Collection Time: 01/16/20 7:03 AM Result Value Ref Range D-Dimer <215 <=499 ng/mL FEU eGFR Collection Time: 01/16/20 7:03 AM Result Value Ref Range GFR 143 mL/min/1.73 m2 POCT glucose Collection Time: 01/16/20 7:46 AM Result Value Ref Range Glucose, POC 309 (H) 71 - 98 mg/dL POCT glucose Collection Time: 01/16/20 11:53 AM Result Value Ref Range Glucose, POC 270 (H) 71 - 98 mg/dL POCT glucose Collection Time: 01/16/20 5:15 PM Result Value Ref Range Glucose, POC 307 (H) 71 - 98 mg/dL POCT glucose Collection Time: 01/16/20 8:39 PM Result Value Ref Range Glucose, POC 296 (H) 71 - 98 mg/dL POCT glucose Collection Time: 01/17/20 1:51 AM Result Value Ref Range Glucose, POC 294 (H) 71 - 98 mg/dL CBC without differential Collection Time: 01/17/20 7:29 AM Result Value Ref Range WBC 5.3 3.8 - 9.9 K/cumm Hgb 13.7 13.0 - 17.5 g/dL Hct 39.4 38.9 - 50.3 % Plt 228 150 - 400 K/cumm MPV 10.0 9.1 - 12.3 fL RBC 4.69 4.30 - 5.80 M/cumm MCV 84.0 81.3 - 96.4 fL MCH 29.2 27.1 - 33.3 pg MCHC 34.8 32.3 - 35.7 g/dL RDW CV 11.9 11.1 - 14.9 % RDW SD 36.4 35.7 - 48.1 fL NRBC abs 0.00 0.00 - 0.01 K/cumm Magnesium Collection Time: 01/17/20 7:29 AM Result Value Ref Range Magnesium 2.1 1.4 - 2.5 mg/dL Phosphorus Collection Time: 01/17/20 7:29 AM Result Value Ref Range Phosphorus, pl 3.9 2.3 - 4.5 mg/dL Comprehensive metabolic panel Collection Time: 01/17/20 7:29 AM Result Value Ref Range Sodium 132 (L) 135 - 145 mmol/L Potassium, pl 4.6 3.3 - 4.9 mmol/L Chloride 98 97 - 110 mmol/L CO2 24 22 - 32 mmol/L Anion gap 10 2 - 15 mmol/L BUN 15 8 - 25 mg/dL Creatinine 0.72 (L) 0.80 - 1.30 mg/dL Glucose 269 (H) 70 - 199 mg/dL Calcium 9.2 8.5 - 10.3 mg/dL Bilirubin, total 0.3 0.1 - 1.2 mg/dL Protein, pl 7.3 6.5 - 8.5 g/dL Albumin 4.0 3.5 - 5.0 g/dL Alk phos 62 40 - 130 Units/L ALT 102 (H) 7 - 55 Units/L AST 48 10 - 50 Units/L eGFR Collection Time: 01/17/20 7:29 AM Result Value Ref Range GFR 132 mL/min/1.73 m2 POCT glucose Collection Time: 01/17/20 8:12 AM Result Value Ref Range Glucose, POC 270 (H) 71 - 98 mg/dL Radiology: Xr Chest 1 View Portable Result Date: 01/14/2020 Narrative: [facility] Imaging Result Name: CRISTI VELEZ OrderingPhys: FRANCINE DENIS Age: 24 Date of : 1995 Accession Number: [id number] Date of Service: 01/14/2020 Gender: M EXAM DESCRIPTION: XR CHEST 1 VIEW REASON FOR STUDY: Cough, shortness of breath, fever, dizziness, loss of smell, vomiting, and diarrhea for 3 days. TECHNIQUE: Frontal radiographic view of the chest acquired. COMPARISON: None available. LUNGS/PLEURA: The lung volumes are low and there are mild bibasilar airspace opacities. There is no evidence of a pleural effusion or pneumothorax. HEART/MEDIASTINUM: The heart size is upper limits of normal for AP technique. HARDWARE/LINES/TUBES: None. BONES: There are no acute or aggressive appearing osseous abnormalities. Impression: Low lung volumes and mild bibasilar airspace opacities, which may represent atelectasisor pneumonia. Short interval radiographic follow-up to resolution is recommended. THIS IS AN ELECTRONICALLY VERIFIED FINAL REPORT 01/14/2020 7:53 PM - Electronically signed by Raadmes Pritchard M.D. AB: Report ID: [id number] Reading Location: [id number] Medications: Your medication list CONTINUE taking these medications Instructions Last Dose Given Next Dose Due atorvastatin 20 mg tablet Commonly known as: LIPITOR Take 1 tablet (20 mg total) by mouth daily blood glucose diagnostic strip Commonly known as: OneTouch Ultra Test Test daily before all meals/snacks and once before bedtime. blood-glucose meter kit 1 kit once for 1 dose Patient needs in room for diabetes education carvediloL 25 mg tablet Commonly known as: COREG Take 1 tablet (25 mg total) by mouth 2 (two) times a day with meals DULoxetine DR 60 mg capsule Commonly known as: CYMBALTA Take 1 capsule (60 mg total) by mouth daily glucagon 1 mg kit Generic drug: glucagon insulin lispro 100 unit/mL insulin pen Commonly known as: HumaLOG, ADMELOG Inject 10 Units under the skin 3 (three) times a day with meals insulin regular U-500 500 unit/mL CONCENTRATED injection Commonly known as: HumuLIN R U-500 lancets misc Patient needs in room for diabetes education OneTouch Delica Plus [facility] [address] [facility] Generic drug: lancets lisinopriL 40 mg tablet Commonly known as: PRINIVIL,ZESTRIL Take 1 tablet (40 mg total) by mouth daily metFORMIN 500 mg tablet Commonly known as: GLUCOPHAGE Take 2 tablets (1,000 mg total) by mouth 2 (two) times a day with meals mupirocin 2 % ointment Commonly known as: BACTROBAN Apply topically 3 (three) times a day pen needle, diabetic 32 gauge x 5/32 needle Commonly known as: BD Ultra-Fine Radha Pen Needle Use to inject insulin BG three times a day as instructed pen needle, diabetic 32 gauge x 5/32 needle Use as directed 3 times a day. STOP taking these medications ciprofloxacin 250 mg tablet Commonly known as: CIPRO Patient Instructions: Activity: activity as tolerated Diet: diabetic diet Disposition: home Follow-up Contact Information for Follow-ups Mariana Self MD Specialty: Internal Medicine Relationship: Referring Physician Uzma HARDIN [address] [facility] [address] Next Steps: Follow up Instructions: Please call to schedule a telemedicine follow-up appointment in 1- 2 weeks. Questions: Instructions for follow-up (appointment date and time): Please call to schedule a telemedicine follow-up appointment in 1-2 weeks. To provider: DARELL SELFILY NITIN Total time spent on day of discharge 25 minutes Signed: Giuliano Linton Jr., MD Internal Medicine - Hospitalist [facility] - Adult Hospitalist Service VIRTUAL VISIT DONE BY CAMERA/COMPUTER IN THE UNIT WITHOUT ENTERING PATIENT'S ROOM DUE TO COVID-19 PRECAUTIONS ?? This visit with Cristi Velez and nursing took place via real-time audio/video communication during the COVID19 public health emergency to conserve PPE as well as minimize exposure. During the visit, I was located on the same floor of the hospital as the patient. After being given an opportunity to ask questions about and discuss this type of visit, the patient verbally consented to proceed with the visit via audio/visual technology. The session started at 09:55 and ended at 10:00. 01/17/2020 10:03 AM Cc: Jann Burrows MD documented in this encounter Discharge Instructions * Discharge Instr - Other Orders* Jenifer Chin RN - 01/17/2020 10:07 AM CDT THANK YOU for choosing our team to provide your health care. Your HEALTH AND SAFETY are important to us. We hope you feel your care on IMU was ALWAYS EXCELLENT! Please call IMU at [phone] if you have any questions regarding your care. Wishing you continued improvement during your recovery. Your Intermediate Care Unit Team * Attachments The following attachments cannot be sent through Care Everywhere. * Community Acquired Pneumonia (Discharge Care) (Indonesian) documented in this encounter Medications at Time of Discharge glucagon 1 mg injection 06/02/2019 lancets miscIndications:Di abetic ketoacidosis without coma associated with other specified diabetes mellitus (HCC) Patient needs in room for diabetes education 300 each 3 03/19/2019 0 atorvastatin (LIPITOR) 20 mg tabletIndications: Diabetic ketoacidosis without coma associated with other specified diabetes mellitus (HCC) Take 1 tablet (20 mg total) by mouth daily 90 tablet 3 03/19/2019 2 blood glucose diagnostic (OneTouch Ultra Test) stripIndications:D iabetic ketoacidosis without coma associated with other specified diabetes mellitus (HCC) Test daily before all meals/snacks and once before bedtime. 400 each 3 09/24/2019 1 blood-glucose meter kit 1 kit once for 1 dose Patient needs in room for diabetes education 1 each 03/05/2019 2 carvedilol (COREG) 25 mg tablet Take 1 tablet (25 mg total) by mouth 2 (two) times a day with meals 60 tablet 11 01/27/[address] (CYMBALTA) 60 mg capsuleIndications :Anxiety with Depression Take 1 capsule (60 mg total) by mouth daily 90 capsule 1 2019 1 insulin lispro (HumaLOG, ADMELOG) 100 unit/mL insulin penIndications:typ e 2 diabetes mellitus Inject 10 Units under the skin 3 (three) times a day with meals 9 mL 1 12/21/2019 1 insulin regular U-500 (HumuLIN R U-500) 500 unit/mL CONCENTRATED injectionIndicatio ns:Diabetes Mellitus with Severe Insulin Resistance Inject 95 Units under the skin 3 (three) times a day 2 lisinopriL (PRINIVIL,ZESTRIL) 40 mg tablet Take 1 tablet (40 mg total) by mouth daily 90 tablet 1 12/25/2019 1 metFORMIN (GLUCOPHAGE) 500 mg tabletIndications: Diabetic ketoacidosis without coma associated with other specified diabetes mellitus (HCC) Take 2 tablets (1,000 mg total) by mouth 2 (two) times a day with meals 360 tablet 3 03/19/2019 1 mupirocin (BACTROBAN) 2 % ointment Apply topically 3 (three) times a day 30 g 12/21/2019 2 OneTouch Delica Plus Lancet 33 gauge misc 08/14/2019 1 pen needle, diabetic (BD ULTRA-FINE RADHA PEN NEEDLE) 32 gauge x 5/32 needleIndications: Metabolic syndrome Use to inject insulin BG three times a day as instructed 450 each 3 03/24/2019 1 pen needle, diabetic 32 gauge x /32 needle Use as directed 3 times a day. 100 each 12/21/2019 1 documented as of this encounter Discharge Disposition Disposition Code Departure Means Destination Discharge to home or self care documented in this encounter Progress Notes * Giuliano Linton Jr., MD - 01/16/2020 5:31 PM CDT [facility] Hospitalist Service Progress Note Patient Name: Cristi Velez Patient : 1995 Age/Sex: 24 y.o. male Room/Bed: [id number] Admission Date/Time: 01/14/2020 5:54 PM Date: 01/16/2020 Time: 5:31 PM Chief Complaint: shortness of breath Subjective: The patient's shortness of breath has resolved and he was able to take a shower comfortably withoutsupplemental oxygen. Afebrile overnight. Allergies: No Known Allergies Current Medication List: Scheduled Meds:atorvastatin, 20 mg, oral, Daily carvediloL, 25 mg, oral, BID with meals (bkfst, dinner) dexAMETHasone, 6 mg, intravenous, Daily DULoxetine DR, 60 mg, oral, Daily enoxaparin, 40 mg, subcutaneous, Q12H MICHELLE famotidine, 20 mg, intravenous, BID insulin glargine, 40 Units, subcutaneous, Nightly insulin glargine, 45 Units, subcutaneous, QAM insulin lispro, 1-4 Units, subcutaneous, Nightly insulin lispro, 1-7 Units, subcutaneous, TID with meals insulin lispro, 15 Units, subcutaneous, TID with meals insulin NPH, 10 Units, subcutaneous, Daily lisinopriL, 40 mg, oral, Daily Continuous Infusions: PRN Meds:??? acetaminophen ??? dextrose OR dextrose ??? glucagon ??? ondansetron ODT OR ondansetron Objective: Vitals: Vitals: 01/16/20 1200 01/16/20 1400 01/16/20 1600 01/16/20 1607 BP: 134/58 BP Location: Right arm Patient Position: Sitting Pulse: 73 78 76 67 Resp: 20 Temp: 36.9 ??C (98.5 ??F) TempSrc: Oral SpO2: 98% Weight: Height: Physical Exam: Exam performed via video chat Gen: awake, no acute distress, pleasant and cooperative Neuro: no focal deficits, CN II-XII grossly intact Eyes: extraocular movement intact, sclerae anicteric HENT: trachea midline, mucosa moist CV: auscultation deferred because of COVID-19 isolation precautions; no peripheral edema Pulm: auscultation deferred because of COVID-19 isolation precautions; breathing nonlabored GI: auscultation deferred because of COVID-19 isolation precautions; morbidly obese MSK: no cyanosis, clubbing, joint swelling, joint erythema Skin: no visible erythema, acute bruising, or open wounds Psych: normal mood and affect Labs: Lab Results Component Value Date GLUCOSE 307 (H) 01/16/2020 CALCIUM 9.2 01/16/2020 SODIUM 130 (L) 01/16/2020 POTASSIUM 4.2 01/16/2020 CO2 21 (L) 01/16/2020 CHLORIDE 97 01/16/2020 BUNSER 13 01/16/2020 CREATININE 0.60 (L) 01/16/2020 Lab Results Component Value Date WBC 4.4 01/16/2020 HGB 13.6 01/16/2020 HCT 39.5 01/16/2020 MCV 83.7 01/16/2020 LABPLAT 235 01/16/2020 Pertinent Labs: I have reviewed the pertinent labs. Radiology: Xr Chest 1 View Portable Result Date: 01/14/2020 Narrative: [facility] Imaging Center Imaging Result Name: CRISTI VELEZ OrderingPhys: FRANCINE DENIS Age: 24 Date of : 1995 Accession Number: [id number] Date of Service: 01/14/2020 Gender: M EXAM DESCRIPTION: XR CHEST 1 VIEW REASON FOR STUDY: Cough, shortness of breath, fever, dizziness, loss of smell, vomiting, and diarrhea for 3 days. TECHNIQUE: Frontal radiographic view of the chest acquired. COMPARISON: None available. LUNGS/PLEURA: The lung volumes are low and there are mild bibasilar airspace opacities. There is no evidence of a pleural effusion or pneumothorax. HEART/MEDIASTINUM: The heart size is upper limits of normal for AP technique. HARDWARE/LINES/TUBES: None. BONES: There are no acute or aggressive appearing osseous abnormalities. Impression: Low lung volumes and mild bibasilar airspace opacities, which may represent atelectasisor pneumonia. Short interval radiographic follow-up to resolution is recommended. THIS IS AN ELECTRONICALLY VERIFIED FINAL REPORT 01/14/2020 7:53 PM - Electronically signed by Radames Pritchard M.D. AB: Report ID: [id number] Reading Location: [id number] Microbiology: BCx x2 01/14/20 - NGTD ASSESSMENT AND PLAN: Principal Problem: Pneumonia due to COVID-19 virus Active Problems: Asymmetric septal hypertrophy (CMS/HCC) Essential hypertension Morbid obesity with BMI of 50.0-59.9, adult (CMS/HCC) Fatty liver Type 2 diabetes mellitus without complication, with long-term current use of insulin (CMS/HCC) Transaminitis Resolved Problems: No resolved hospital problems. 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 Continue Decadron day 2 of . No indication for remdesivir at this time as his is not hypoxic. Monitor respiratory status. Trend d-dimer and ferritin. Sinus tachycardia Heart rate now improved from 120s on arrival to 80s-90s. Continue to monitor. Transaminitis Baseline elevation present due to hepatic steatosis, likely exacerbated by acute infection, will monitor. Type 2 DM Monitor glucose and adjust insulin as necessary. DVT PPx Update 01/15: Shortness of breath mostly resolved. Will stop antibiotics as there is no evidence of bacterial infection at this point. Will continue dexamethasone for 2 more days. Transaminitis resolving (AST back down to normal, ALT significantly improved). Anticipate discharge home tomorrow if respiratory status remains stable. VIRTUAL VISIT DONE BY CAMERA/COMPUTER IN THE UNIT WITHOUT ENTERING PATIENT'S ROOM DUE TO COVID-19 PRECAUTIONS This visit with Cristi Velez and nursing took place via real-time audio/video communication during the COVID19 public health emergency to conserve PPE as well as minimize exposure. During the visit, I was located on the same floor of the hospital as the patient. After being given an opportunity to ask questions about and discuss this type of visit, the patient verbally consented to proceed with the visit via audio/visual technology. The session started at 17:25 and ended at 17:30. MDM: moderate complexity Giuliano Linton Jr., MD Internal Medicine - Hospitalist [facility] - Adult Hospitalist Service 01/16/2020 5:31 PM * Giuliano Linton Jr., MD - 01/15/2020 3:15 PM CDT [facility] Hospitalist Service Progress Note Patient Name: Cristi Velez Patient : 1995 Age/Sex: 24 y.o. male Room/Bed: [id number] Admission Date/Time: 01/14/2020 5:54 PM Date: 01/15/2020 Time: 3:15 PM Chief Complaint: shortness of breath Subjective: Today the patient states that his shortness of breath is significantly improved while wearing 2 L of supplemental O2 and his non-productive cough continues. He vomited earlier today after being givena medication (doesn't remember which one), but has had no nausea since then. Allergies: No Known Allergies Current Medication List: Scheduled Meds:atorvastatin, 20 mg, oral, Daily azithromycin, 500 mg, intravenous, Q24H MICHELLE carvediloL, 25 mg, oral, BID with meals (bkfst, dinner) cefTRIAXone, 2,000 mg, intravenous, Q24H MICHELLE dexAMETHasone, 6 mg, intravenous, Daily DULoxetine DR, 60 mg, oral, Daily enoxaparin, 40 mg, subcutaneous, Q12H MICHELLE famotidine, 20 mg, intravenous, BID insulin glargine, 40 Units, subcutaneous, BID insulin lispro, 1-4 Units, subcutaneous, Nightly insulin lispro, 1-7 Units, subcutaneous, TID with meals insulin lispro, 15 Units, subcutaneous, TID with meals [START ON 01/16/2020] insulin NPH, 10 Units, subcutaneous, Daily lisinopriL, 40 mg, oral, Daily Continuous Infusions: PRN Meds:??? acetaminophen ??? dextrose OR dextrose ??? glucagon ??? ondansetron ODT OR ondansetron Objective: Vitals: Vitals: 01/15/20 0800 01/15/20 0802 01/15/20 1125 01/15/20 1200 BP: 128/68 139/65 BP Location: Right arm Right arm Patient Position: Lying Sitting Pulse: 93 87 90 88 Resp: 20 20 Temp: 36.9 ??C (98.5 ??F) 36.9 ??C (98.4 ??F) TempSrc: Oral Oral SpO2: 92% 95% Weight: Height: Physical Exam: Exam performed via video chat Gen: awake, no acute distress, pleasant and cooperative, wearing nasal cannula Neuro: no focal deficits, CN II-XII grossly intact Eyes: extraocular movement intact, sclerae anicteric HENT: trachea midline, mucosa moist CV: auscultation deferred because of COVID-19 isolation precautions; no peripheral edema Pulm: auscultation deferred because of COVID-19 isolation precautions; breathing nonlabored GI: auscultation deferred because of COVID-19 isolation precautions; morbidly obese MSK: no cyanosis, clubbing, joint swelling, joint erythema Skin: no visible erythema, acute bruising, or open wounds Psych: normal mood and affect Labs: Lab Results Component Value Date GLUCOSE 319 (H) 01/15/2020 CALCIUM 9.7 01/14/2020 SODIUM 134 (L) 01/14/2020 POTASSIUM 4.6 01/14/2020 CO2 22 01/14/2020 CHLORIDE 101 01/14/2020 BUNSER 14 01/14/2020 CREATININE 0.81 01/14/2020 Lab Results Component Value Date WBC 4.1 01/14/2020 HGB 14.7 01/14/2020 HCT 42.4 01/14/2020 MCV 84.1 01/14/2020 LABPLAT 226 01/14/2020 Pertinent Labs: I have reviewed the pertinent labs. Radiology: Xr Chest 1 View Portable Result Date: 01/14/2020 Narrative: [facility] Imaging Result Name: CRISTI VELEZ OrderingPhys: FRANCINE CINDIREENA Age: 24 Date of : 1995 Accession Number: [id number] Date of Service: 01/14/2020 Gender: M EXAM DESCRIPTION: XR CHEST 1 VIEW REASON FOR STUDY: Cough, shortness of breath, fever, dizziness, loss of smell, vomiting, and diarrhea for 3 days. TECHNIQUE: Frontal radiographic view of the chest acquired. COMPARISON: None available. LUNGS/PLEURA: The lung volumes are low and there are mild bibasilar airspace opacities. There is no evidence of a pleural effusion or pneumothorax. HEART/MEDIASTINUM: The heart size is upper limits of normal for AP technique. HARDWARE/LINES/TUBES: None. BONES: There are no acute or aggressive appearing osseous abnormalities. Impression: Low lung volumes and mild bibasilar airspace opacities, which may represent atelectasisor pneumonia. Short interval radiographic follow-up to resolution is recommended. THIS IS AN ELECTRONICALLY VERIFIED FINAL REPORT 01/14/2020 7:53 PM - Electronically signed by Radames Pritchard M.D. AB: Report ID: [id number] Reading Location: [id number] Microbiology: BCx x2 01/14/20 - NGTD ASSESSMENT AND PLAN: Principal Problem: Pneumonia due to COVID-19 virus Active Problems: Asymmetric septal hypertrophy (CMS/HCC) Essential hypertension Morbid obesity with BMI of 50.0-59.9, adult (CMS/HCC) Fatty liver Type 2 diabetes mellitus without complication, with long-term current use of insulin (CMS/HCC) Transaminitis Resolved Problems: No resolved hospital problems. 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 Continue Decadron day 2 of 10. No indication for remdesivir at this time as his is not hypoxic. Monitor respiratory status. Trend d-dimer and ferritin. Sinus tachycardia Heart rate now improved from 120s on arrival to 80s-90s. Continue to monitor. Transaminitis Baseline elevation present due to hepatic steatosis, likely exacerbated by acute infection, will monitor. Type 2 DM Monitor glucose and adjust insulin as necessary. DVT PPx VIRTUAL VISIT DONE BY CAMERA/COMPUTER IN THE UNIT WITHOUT ENTERING PATIENT'S ROOM DUE TO COVID-19 PRECAUTIONS This visit with Cristi Velez and nursing took place via real-time audio/video communication during the COVID19 public health emergency to conserve PPE as well as minimize exposure. During the visit, I was located on the same floor of the hospital as the patient. After being given an opportunity to ask questions about and discuss this type of visit, the patient verbally consented to proceed with the visit via audio/visual technology. The session started at 15:45 and ended at 15:50. MDM: moderate complexity Giuliano Linton Jr., MD Internal Medicine - Hospitalist [facility] - Adult Hospitalist Service 01/15/2020 3:15 PM * Anisha Smith, [facility] - 01/15/2020 11:33 AM CDT Adjust to 10 units NPH for prednisone equivalent of 40.02 (Dexamethasone 6 mg IV daily) * Rob López RN - 01/15/2020 9:58 AM CDT 01/15/20 0945 Information Information Obtained From Patient (via phone) Referral Data Referral Source Self referral Referral Reason Discharge Planning Prior to Admission Primary Caregiver Self Support System Parent Durable Medical Equipment None Living Arrangements Parent Type of Residence Private residence Steps in home? 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 - 01/15/2020 9:21 AM CDT Images from the original note were not included. An order for Insulin with Steroid Pharmacy Protocol has been initiated automatically per pharmacy protocol for a patient on a prednisone equivalent dose of 20 mg/day or more and a diagnosis of diabetes mellitus. Pharmacy will follow the below guidelines, monitor for steroid dose changes,and adjust doses accordingly. Guidelines: 1. Calculate Prednisone equivalent dose: Glucocorticoid Approx. Equivalent Dose Factor to multiply dose by to achieve prednisone equivalent Hydrocortisone 20 mg 0.25 Methylprednisolone 4 mg 1.25 Prednisone 5 mg 1 Dexamethasone 0.75 mg 6.67 Example: Methylprednisolone 60 mg IVPB q8h = Total daily dose 180 mg Prednisone equivalent of total daily dose = 225 mg 2. NPH dose for prednisone equivalent dose, or prednisone total daily dose, greater than 40 mg daily (example prednisone 20 mg PO TID): NPH Dose: Maximum NPH initial dose = 20 units in insulin na??ve patients = 40 units in insulin experienced patients Enter NPH to be administered SQ at the same interval as the steroid. 3. Insulin dose for prednisone equivalent dose 40 mg daily or less (example prednisone 10 mg PO TID): a. If steroid is dosed once daily administer NPH 10 units SQ once daily. b. If steroid is dosed multiple times daily administer insulin lispro (Humalog) 3 units SQ with meals, in addition to any bolus dosing already ordered. 4. Pharmacists will monitor patients daily, adjusting NPH doses as steroid doses Change, entering all NPH orders to coincide with steroid administration. NPH/steroid dosed BID should be entered at [phone] only so fingerstick blood sugars are available. NPH orders should include ? Hold if FBS <110.? 5. Pharmacists will enter Hypoglycemia Protocol orders in [facility] when ordering insulin on an insulin na??ve patient without current Hypoglycemia Protocol orders. 6. Pharmacists will enter Point of Care blood glucose (POCT) orders in [facility] when ordering insulin on an insulin na??ve patient without current POCT orders. The POCT order frequency should match the insulin frequency so that blood sugar may be checked at the time of insulin administration. Initiate 25 units of NPH insulin every 24 hours per insulin with steroid dosing protocol based on patient weight of 210.2 kg and steroid dose of Dexamethasone 6 mg ivp q 24 hrs . (NON-Naive) Thank you, Sal Dutta RPh [facility] Pharmacy department * Izabella Beckwith - 01/15/2020 8:46 AM CDT Nutrition Assessment Reason for Assessment: Initial Nutrition Assessment Encounter Date: 01/15/20 8:50 AM Nutrition Assessment and Plan: Patient is a 24 y.o. male. Admit Dx: PNEUMONIA DUE TO COVID-19 VIRUS. Admitted on 01/14/2020, current LOS is 0 days. Nutrition Screen What diet do you follow at home?: Regular Have You Recently Lost Weight Without Trying?: No Poor Oral Intake for Four or More Days Prior to Admission: No Current diet order: Adult Diet Special; Consistent Carbohydrate; Send on Disposables Pt intake is adequate. PO intakes:100% x1 so far Supplement Order: N/A Wt Readings from Last 10 Encounters: 01/14/20 (!) 210.2 kg (463 lb 6.5 [...] oz) 05/01/18 (!) 210.9 kg (465 lb) ASSESSMENT: Monitoring for intakes, labs d/t covid +. Pt on dexamethasone possible associated high BG. Did not enter pt room. Nutrition Diagnosis 1: Overweight/Obesity Related to: Physiologic issue Evidenced by: BMI 40 or more, Physical finding, Lab abnormality ?? Interventions: [place] diet preferences within the limits of nutrition care order, Encouragement, Meals and snacks ?? Monitoring and Evaluation: Appetite, Discharge plans, I/O, Labs, Plan of care, PO intake, Blood glucoses, Weight changes ?? Goals: Adequate nutrition to meet estimated needs by next assessment, Oral intake to meet 75% estimated nutritional needs by next assessment ? Estimated needs: ?? Total Kcal/kg Estimated Needs : 2495 based on Kcal/k. Type of Weight Used for Estimated Kcals: [place] ?? MSJ Total Energy Needs: 3251 kcal using ?? JALIL State Total Energy Needs + Fever Factor: 3251 ?? Total Protein Estimated Needs (gm): 129.74 Protein Needs Based on g/k.3 Type of Weight Used for Estimated Protein : [place]. ?? Total Fluid Estimated Needs: 2495 Fluid Needs Based on : 25 ml/kg. Objective Anthropometrics Weight: (!) 210.2 kg (463 lb 6.5 oz) Admission Weight : 217.7 kg Weight Change: -7.52 kg (-16.59 lbs) IBW/kg (Calculated) : 99.8 kg Height: 200.7 cm (6' 7 ) Weight in (lb) to have BMI = 25: 221.5 BMI (Calculated): 52.2 BMI Classification: BMI > or equal to 40.0 Class III 3 Day I/O Summary 01/12 1900 - 01/14 0659 In: 1000 Out: 1000 [Urine:1000] Temp: 36.9 ??C (98.5 ??F) Past Medical History: Diagnosis Date ??? Anxiety ??? Depression ??? Diabetes mellitus ([facility]) ??? HTN (hypertension) ??? Metabolic syndrome ??? Morbid obesity with BMI of 50.0-59.9, adult ([facility]) 07/10/2017 Medications and Lab Review: Scheduled Meds: atorvastatin, 20 mg, oral, Daily azithromycin, 500 mg, intravenous, Q24H MICHELLE carvediloL, 25 mg, oral, BID with meals (bkfst, dinner) cefTRIAXone, 2,000 mg, intravenous, Q24H MICHELLE dexAMETHasone, 6 mg, intravenous, Daily DULoxetine DR, 60 mg, oral, Daily enoxaparin, 40 mg, subcutaneous, Q12H MICHELLE famotidine, 20 mg, intravenous, BID insulin glargine, 40 Units, subcutaneous, BID insulin lispro, 1-4 Units, subcutaneous, Nightly insulin lispro, 1-7 Units, subcutaneous, TID with meals insulin lispro, 10 Units, subcutaneous, TID with meals lisinopriL, 40 mg, oral, Daily Continuous Infusions: Sodium Date Value Ref Range Status 01/14/2020 134 (L) 135 - 145 mmol/L Final Potassium, pl Date Value Ref Range Status 01/14/2020 4.6 3.3 - 4.9 mmol/L Final BUN Date Value Ref Range Status 01/14/2020 14 8 - 25 mg/dL Final Creatinine Date Value Ref Range Status 01/14/2020 0.81 0.80 - 1.30 mg/dL Final Albumin Date Value Ref Range Status 01/14/2020 4.6 3.5 - 5.0 g/dL Final Calcium Date Value Ref Range Status 01/14/2020 9.7 8.5 - 10.3 mg/dL Final Lab Results Component Value Date HGBA1C 8.7 (H) 12/31/2019 POC Glucose: Results for CRISTI VELEZ ( ) as of 01/15/2020 08:52 Ref. Range 01/14/2020 22:04 01/15/2020 02:37 01/15/2020 08:01 Glucose, POC Latest Ref Range: 71 - 98 mg/dL 133 (H) 189 (H) 242 (H) Nursing Assessment: Last BM Date: 01/14/20 Bowel Sounds (All Quadrants): Active Carlos Scale Score: 20 Nutrition Follow-Up : 01/19/20 Izabella Beckwith MS RD LDN documented in this encounter H&P Notes * Berenice Lassiter MD - 01/14/2020 9:54 PM CDT [facility] Adult Hospitalist Service History and Physical Patient Name: Cristi Velez Patient : 1995 Age/Sex: 24 y.o. male Room/Bed: [place] [id number] Admission Date/Time: 01/14/2020 5:54 PM Date: 01/14/2020 Time: 9:55 PM Primary Care Physician: Jann Burrows MD PCP Office Location: [address] [place] [address] PCP SUBJECTIVE: Cristi Velez is a 24 y.o. male with h/o diabetes, obesity, hypertension presents for shortness of breath and cough HPI Patient presented to the emergency department for evaluation of persistent shortness of breath and cough onset 6 days ago that progressively got worse since onset, associated with hoarseness of the voice, nausea, vomiting and diarrhea. Patient denies any associated fever, chills, chest pain, palpitations or dizziness. One of his coworkers tested positive for COVID -19. He was tested outpatient, the results came back positive last Saturday as well. On further workup in the ED patient noted to be persistently tachycardic, although was not hypoxic.Blood work was significant for elevated liver function tests and ferritin levels. Requested troponins, results pending. EKG was consistent with sinus tachycardia and nonspecific ST T-wave abnormalities. Patient was given 1 L of IV fluids, started on albuterol, Tessalon Perles, Decadron and referred for admission for further management. Patient currently does not require any supplemental oxygen. Saturating at 97 -98% on room air Review of Systems: Constitutional Denies: weight loss, weight gain, fever, chills, night sweats, fatigue Eyes Denies: change in vision, double vision, eye pain, eye discharge, icterus ENT Denies: change in hearing, ear pain, ear discharge, nose bleed, nasal congestion, sore throat Respiratory Complains SOB, cough, wheezing, sputum, hemoptysis CV Complains of chest pain with coughing and drip breathing, palpitations, denies syncope, edema, complains dyspnea with exertion GI Complains of: abdominal pain, decreased appetite, nausea, vomiting, change in bowel habitus, diarrhea, denies constipation, melena, BRBPR Denies: dysuria, frequency, hematuria, nocturia, urgency Metabolic Denies: cold intolerance, heat intolerance, polyphagia, polydipsia Neurologic Denies: headache, dizziness, seizure, change in mental status, focal weakness, focal numbness Musculoskeletal Denies: myalgia, joint pain, joint redness, joint swelling, extremity pain Hematologic Denies: bleeding, bruising, hematoma, lymphadenopathy, icterus Past Medical History: Past Medical History: Diagnosis Date ??? Anxiety ??? Depression ??? Diabetes mellitus (CMS/HCC) ??? HTN (hypertension) ??? Metabolic syndrome ??? Morbid obesity with BMI of 50.0-59.9, adult (CMS/HCC) 07/10/2017 Past Surgical History: Patient denies any surgeries in the past. Family History: Family History Problem Relation Age of Onset ??? Diabetes Mother Family history of diabetes mellitus - (Added by TW Conv) ??? Obesity Mother Social History: Social History Tobacco Use ??? Smoking status: Current Every Day Smoker Packs/day: 0.10 ??? Smokeless tobacco: Current User Types: Chew Substance Use Topics ??? Alcohol use: Yes Alcohol/week: 24.0 standard drinks Types: 24 Cans of beer per week Comment: CAGE negative. Case per week. Allergies: No Known Allergies Home Medications: Medications Prior to Admission Medication Sig Dispense Refill Last Dose ??? atorvastatin (LIPITOR) 20 mg tablet Take 1 tablet (20 mg total) by mouth daily 90 tablet 3 ??? blood glucose diagnostic ([employer] Ultra Test) strip Test daily before all meals/snacks and once before bedtime. 400 each 3 ??? blood-glucose meter kit 1 kit once for 1 dose Patient needs in room for diabetes education 1 each 0 ??? carvedilol (COREG) 25 mg tablet Take 1 tablet (25 mg total) by mouth 2 (two) times a day with meals 60 tablet 11 ??? ciprofloxacin (CIPRO) 250 mg tablet ??? DULoxetine DR (CYMBALTA) 30 mg capsule ??? DULoxetine DR (CYMBALTA) 60 mg capsule Take 1 capsule (60 mg total) by mouth daily 90 capsule 1 ??? glucagon 1 mg injection ??? insulin lispro (HumaLOG, ADMELOG) 100 unit/mL insulin pen Inject 10 Units under the skin 3 (three) times a day with meals 9 mL 1 ??? insulin regular U-500 (HumuLIN R U-500, Conc, Kwikpen) 500 unit/mL (3 mL) CONCENTRATED injection Inject 85 units three times daily 40 mL 3 ??? lancets [facility] Patient needs in room for diabetes education 300 each 3 ??? lisinopriL (PRINIVIL,ZESTRIL) 40 mg tablet Take 1 tablet (40 mg total) by mouth daily 90 tablet1 ??? metFORMIN (GLUCOPHAGE) 500 mg tablet Take 2 tablets (1,000 mg total) by mouth 2 (two) times a day with meals 360 tablet 3 ??? mupirocin (BACTROBAN) 2 % ointment Apply topically 3 (three) times a day 30 g 0 ??? OneTouch Delica Plus [facility] [address] [facility] ??? pen needle, diabetic (BD ULTRA-FINE RADHA PEN NEEDLE) 32 gauge x 5/32 needle Use to inject insulin BG three times a day as instructed 450 each 3 ??? pen needle, diabetic 32 gauge x 5/32 needle Use as directed 3 times a day. 100 each 0 ??? povidone-iodine (BETADINE) 7.5 % solution Apply topically as needed for wound care 59 mL 0 Objective: Vitals: Patient Vitals for the past 24 hrs: Patient Vitals for the past 24 hrs: BP Temp Temp src Pulse Resp SpO2 Weight 01/14/20 2130 138/72 36.6 ??C (97.8 ??F) -- 111 22 96 % -- 01/14/202099 137/80 -- -- 111 9 95 % -- 01/14/202029 146/69 -- -- 114 25 95 % -- 01/14/202009 -- -- -- -- -- 97 % -- 01/14/20 1800 147/95 -- -- (!) 128 26 98 % -- 01/14/20 1622 135/87 37.6 ??C (99.6 ??F) Temporal 124 20 96 % (!) 217.7 kg (480 lb) Physical Exam: General: Awake, alert, oriented x4, in no acute distress Eyes: EOMI, GIANNI, sclare non icteric Neck: supple, trachea midline, thyroid not enlarged, no gross carotid bruits appreciated Pharynx: No gross oral lesion, tongue midline, mucosa moist Lungs CTA Heart: [id number] Abd: +BS, Non Tender, Non distended, No gross hepatomegaly Lower Ext: No gross edema Neuro: Cranial nerves II-XII grossly intact. Moves all extremities equally, no gross sensory deficits Musculoskeletal: no gross joint erythema, edema, tenderness Genitourinary: No suprapubic or CVA tenderness Skin: No skin rashes, warm and dry to palpation Laboratory Results: Recent Results (from the past 24 hour(s)) CBC with auto differential Collection Time: 01/14/20 6:06 PM Result Value Ref Range WBC 4.1 3.8 - 9.9 K/cumm Hgb 14.7 13.0 - 17.5 g/dL Hct 42.4 38.9 - 50.3 % Plt 226 150 - 400 K/cumm MPV 9.6 9.1 - 12.3 fL RBC 5.04 4.30 - 5.80 M/cumm MCV 84.1 81.3 - 96.4 fL MCH 29.2 27.1 - 33.3 pg MCHC 34.7 32.3 - 35.7 g/dL RDW CV 12.2 11.1 - 14.9 % RDW SD 37.1 35.7 - 48.1 fL NRBC abs 0.00 0.00 - 0.01 K/cumm Comprehensive metabolic panel Collection Time: 01/14/20 6:06 PM Result Value Ref Range Sodium 134 (L) 135 - 145 mmol/L Potassium, pl 4.6 3.3 - 4.9 mmol/L Chloride 101 97 - 110 mmol/L CO2 22 22 - 32 mmol/L Anion gap 11 2 - 15 mmol/L BUN 14 8 - 25 mg/dL Creatinine 0.81 0.80 - 1.30 mg/dL Glucose 180 70 - 199 mg/dL Calcium 9.7 8.5 - 10.3 mg/dL Bilirubin, total 0.5 0.1 - 1.2 mg/dL Protein, pl 7.9 6.5 - 8.5 g/dL Albumin 4.6 3.5 - 5.0 g/dL Alk phos 75 40 - 130 Units/L ALT 147 (H) 7 - 55 Units/L AST 92 (H) 10 - 50 Units/L Sepsis Lactate w/ Reflex Collection Time: 01/14/20 6:06 PM Result Value Ref Range Sepsis Lactate 1.8 0.7 - 2.0 mmol/L Differential, auto Collection Time: 01/14/20 6:06 PM Result Value Ref Range Neutrophil abs 2.6 1.7 - 6.5 K/cumm Imm gran abs 0.0 0.0 - 0.1 K/cumm Lymphocyte abs 1.0 0.8 - 3.3 K/cumm Monocyte abs 0.5 0.2 - 0.8 K/cumm Eosinophil abs 0.1 0.0 - 0.5 K/cumm Basophil abs 0.0 0.0 - 0.1 K/cumm Neutrophil pct 63.2 % Imm gran pct 0.2 % Lymphocyte pct 23.6 % Monocyte pct 11.1 % Eosinophil pct 1.7 % Basophil pct 0.2 % eGFR Collection Time: 01/14/20 6:06 PM Result Value Ref Range GFR 126 mL/min/1.73 m2 D-dimer, quantitative Collection Time: 01/14/20 6:07 PM Result Value Ref Range D-Dimer 319 <=499 ng/mL FEU CRP (acute phase) Collection Time: 01/14/20 6:07 PM Result Value Ref Range C-RP 25.6 (H) <=10.0 mg/L Ferritin Collection Time: 01/14/20 6:07 PM Result Value Ref Range Ferritin 1,661 (H) 30 - 400 ng/mL Radiology: Xr Chest 1 View Portable Result Date: 01/14/2020 Narrative: [facility] Imaging Center Imaging Result Name: CRISTI VELEZ OrderingPhys: FRANCINE DENIS Age: 24 Date of : 1995 Accession Number: [id number] Date of Service: 01/14/2020 Gender: M EXAM DESCRIPTION: XR CHEST 1 VIEW REASON FOR STUDY: Cough, shortness of breath, fever, dizziness, loss of smell, vomiting, and diarrhea for 3 days. TECHNIQUE: Frontal radiographic view of the chest acquired. COMPARISON: None available. LUNGS/PLEURA: The lung volumes are low and there are mild bibasilar airspace opacities. There is no evidence of a pleural effusion or pneumothorax. HEART/MEDIASTINUM: The heart size is upper limits of normal for AP technique. HARDWARE/LINES/TUBES: None. BONES: There are no acute or aggressive appearing osseous abnormalities. Impression: Low lung volumes and mild bibasilar airspace opacities, which may represent atelectasisor pneumonia. Short interval radiographic follow-up to resolution is recommended. THIS IS AN ELECTRONICALLY VERIFIED FINAL REPORT 01/14/2020 7:53 PM - Electronically signed by Radames Pritchard M.D. AB: Report ID: [id number] Reading Location: [id number] ASSESSMENT AND PLAN: Principal Problem: Pneumonia due to COVID-19 virus Patient currently does not require any supplemental oxygen. Currently on Decadron for COVID -19 pneumonia. Since the onset of symptoms was almost a week ago says a concern for possible concurrent bacterial in pneumonia. Will go ahead and start on Rocephin and azithromycin. Continue albuterol as needed. Supplemental oxygen as needed to keep SpO2 greater than 94%. Discussed with the patient the risks for respiratory failure associated with morbid obesity, diabetes and COVID-19 infection. Patient verbalized understanding and agreeable for intubation in case it is needed. Active Problems: Transaminitis Fatty liver Patient does have a history of fatty liver. However current elevation of LFTs and ferritin most likely due toe COVID-19 infection. Will trend daily CMP. Trend D-dimers. Start on telemetry monitoring with continuous pulse oximetry. Asymmetric septal hypertrophy (CMS/HCC) A with aggressive diuresing or hypotension since the patient is preload dependent. Essential hypertension Continue Coreg Morbid obesity with BMI of 50.0-59.9, adult (CMS/HCC) Weight loss discussed and encouraged. Patient verbalized understanding. Type 2 diabetes mellitus without complication, with long-term current use of insulin (CMS/HCC) Holding metformin. Started on Lantus 40 units b.i.d.. High-dose sliding scale insulin. 10 units of Humalog with meals. Principal Problem: Pneumonia due to COVID-19 virus Active Problems: Transaminitis Asymmetric septal hypertrophy (CMS/HCC) Essential hypertension Morbid obesity with BMI of 50.0-59.9, adult (CMS/HCC) Fatty liver Type 2 diabetes mellitus without complication, with long-term current use of insulin (CMS/HCC) Full Code GI and DVT prophylaxis in place Expected LOS: More than 2 midnights MDM: Moderate complexity Berenice Lassiter MD Internal Medicine - Hospitalist [facility] - Adult Hospitalist Service CC: Jann Burrows MD documented in this encounter ED Notes * Francine Denis MD - 01/14/2020 7:11 PM CDT Triage Chief Complaint: Chief Complaint Patient presents with ??? COVID-19 EVALUATION H&P: Cristi Velez is a 24 y.o. male with h/o diabetes, obesity, hypertension presents for shortness of breath and cough associated with COVID -19. Began feeling sick on Saturday, 6 days ago. Started with vomiting diarrhea, not having that anymore. Then started getting a cough which is worsening. Does have some chest soreness with coughing as well as hoarse voice from coughing that is ???scratchy?? . No pain with swelling or difficulty breathing. Denies shortness of breath. No leg swelling. No known fever. 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 His regular job though he is not around people. He is not sure where he could have picked it up. Outpatient testing came back positive today. ROS: At least 10 systems reviewed and otherwise negative except as in the HPI. Past Medical History: Diagnosis Date ??? Anxiety ??? Depression ??? Diabetes mellitus (CMS/HCC) ??? HTN (hypertension) ??? Metabolic syndrome ??? Morbid obesity with BMI of 50.0-59.9, adult (CMS/HCC) 07/10/2017 No past surgical history on file. HOME MEDICATIONS : atorvastatin (LIPITOR) 20 mg tablet blood glucose diagnostic ([employer] Ultra Test) strip blood-glucose meter kit carvedilol (COREG) 25 mg tablet ciprofloxacin (CIPRO) [address] (CYMBALTA) [address] (CYMBALTA) 60 mg capsule glucagon 1 mg injection insulin lispro (HumaLOG, ADMELOG) 100 unit/mL insulin pen insulin regular U-500 (HumuLIN R U-500, Conc, Kwikpen) 500 unit/mL (3 mL) CONCENTRATED injection lancets misc lisinopriL (PRINIVIL,ZESTRIL) 40 mg tablet metFORMIN (GLUCOPHAGE) 500 mg tablet mupirocin (BACTROBAN) 2 % ointment OneTouch Delica Plus Lancet 33 gauge misc pen needle, diabetic (BD ULTRA-FINE RADHA PEN NEEDLE) 32 gauge x 5/32 needle pen needle, diabetic 32 gauge x 5/32 needle povidone-iodine (BETADINE) 7.5 % solution No Known Allergies Social history: Nonsmoker Nursing Notes Reviewed. Physical Exam: ED Triage Vitals [01/14/20 1622] Temp Pulse Resp BP SpO2 37.6 ??C (99.6 ??F) 124 20 135/87 96 % Temp src Heart Rate Source Patient Position BP Location FiO2 (%) Temporal -- -- -- -- GENERAL APPEARANCE: Awake and alert. No acute distress. HEAD: Atraumatic. EYES: Sclera anicteric. EOMI. ENT: Tolerates saliva. No trismus. No stridor. NECK: Supple. Trachea midline. Hoarse voice. HEART: RRR. 2+ radial pulses. LUNGS: Respirations unlabored. ABDOMEN: Soft. Non-tender. No guarding or rebound. EXTREMITIES: No acute deformities. No leg swelling. SKIN: Warm and dry. NEUROLOGICAL: No gross facial drooping. Moves all 4 extremities spontaneously. Normal speech and mental status. No ataxia noted. PSYCHIATRIC: Normal mood. I have reviewed and interpreted all of the currently available lab results from this visit (if applicable): Labs Reviewed COMPREHENSIVE METABOLIC PANEL - Abnormal Result Value Sodium 134 (*) Potassium, pl 4.6 Chloride 101 CO2 22 Anion gap 11 BUN 14 Creatinine 0.81 Glucose 180 Calcium 9.7 Bilirubin, total 0.5 Protein, pl 7.9 Albumin 4.6 Alk phos 75 ALT 147 (*) AST 92 (*) CRP (ACUTE PHASE) - Abnormal C-RP 25.6 (*) FERRITIN - Abnormal Ferritin 1,661 (*) BLOOD CULTURE BLOOD CULTURE CBC WITH AUTO DIFFERENTIAL WBC 4.1 Hgb 14.7 Hct 42.4 Plt 226 MPV 9.6 RBC 5.04 MCV 84.1 MCH 29.2 MCHC 34.7 RDW CV 12.2 RDW SD 37.1 NRBC abs 0.00 SEPSIS LACTATE WITH REFLEX Sepsis Lactate 1.8 DIFFERENTIAL AUTO Neutrophil abs 2.6 Imm gran abs 0.0 Lymphocyte abs 1.0 Monocyte abs 0.5 Eosinophil abs 0.1 Basophil abs 0.0 Neutrophil pct 63.2 Imm gran pct 0.2 Lymphocyte pct 23.6 Monocyte pct 11.1 Eosinophil pct 1.7 Basophil pct 0.2 D-DIMER, QUANTITATIVE D-Dimer 319 EGFR GFR 126 TROPONIN T Radiographs (if obtained): Report Reviewed: XR CHEST 1 VIEW PORTABLE Final Result Low lung volumes and mild bibasilar airspace opacities, which may represent atelectasis or pneumonia. Short interval radiographic follow-up to resolution is recommended. THIS IS AN ELECTRONICALLY VERIFIED FINAL REPORT 01/14/2020 7:53 PM - Electronically signed by Radames Pritchard M.D. AB: Report ID: [id number] Reading Location: [place] [address] Chest x-ray is Poor quality. Poor penetration. EKG (if obtained): (All EKGs are interpreted by myself in the absence of a dyeing machine tender) Rate is approximately 100-120, regular sinus rhythm, tachycardia, grossly appearing normal intervals, normal axis, possible intra fascicular conduction delay with narrow QRS duration and Q-waves noted in lead 3 and AVF, normal QTC, normal ST segments, normal T-waves. (The automated calculations of intervals and rate were not done by the EKG machine.) Impression: sinus tachycardia without acute ischemic pattern. Previous EKG obtained March 02, 2019 shows LVH Q-waves inferiorly which again are seen today, otherwise no significant change other than rate. Chart review shows: Previous admission for hyperglycemia ED course/MDM: Vitals: 01/14/20200901/14/20202901/14/20209901/14/202129 BP: 146/69 137/80 138/72 Pulse: 114 111 111 Resp: Temp: 36.6 ??C (97.8 ??F) TempSrc: SpO2: 97% 95% 95% 96% Weight: ED Course as of Jan 13 2133 Time: 01/14 1936 Value: D-Dimer: 319 Comment: No indication for CT a rule out PE. Wells low risk but can not PERC due to heart rate. D-dimer negative. Although this has not been studied in COVID -19 patient's. Patient was noted to be tachycardic but not hypoxic. Because the patient is not hypoxic and has no oxygen requirement, no steroids indicated at this time. Will consider steroids for hoarse voice and sore throat. Given fluids for tachycardia, patient was having vomiting and diarrhea some may be dehydrated. He also reports that he is feeling quite anxious. Will treat with lorazepam, try albuterol and Tessalon Perle for patient's cough to see if this helps his symptoms. By: Francine Denis MD Time: 01/13 2107 Comment: I spoke to the patient, discussed how he was feeling and if he wanted to go home versus stay. After discussing with shared decision making. The patient would feel more comfortable with admission. and I spoke to the hospitalist Dr. Lassiter who accepts patient for admission. Recommends giving dexamethasone. Would like to obtain troponin given patient's persistent tachycardia to evaluate for possible viral myocarditis. She will follow up on the result. By: Francine Denis MD Time: 01/13 2113 Comment: No hypoxia, satting well on room air. Treated with a L of fluid for possible dehydration given history of vomiting diarrhea, Tessalon Perle, albuterol, very little if any improvement. By: Francine Denis MD Time: 01/14 2132 Comment: COVID -19 swab obtained Saturday at [facility] and [place]. Positive result phone call back today per patient's report. By: Francine Denis MD Clinical Impression: 1. Pneumonia due to COVID-19 virus 2. Tachycardia 3. Elevated LFTs Disposition: Admit (Please note that portions of this note may have been completed with a voice recognition program. Carpet Technician errors occur. Please contact me for any clarification.) Francine Denis MD 01/14/202113 Francine Denis MD 01/14/202132 * Birgit Sanchez RN - 01/14/2020 4:19 PM CDT Pt presents to ED with C/O cough, Sob, fever,dizziness, loss of smell,vomiting and Diarrhea for thepast three days. Pt denies any known Covid contacts. documented in this encounter Miscellaneous Notes * Plan of Care - Shelia Lam Cae, RN - 01/17/2020 10:35 AM CDT Goals: Clinical Goals for the Shift: Pt will remain hemodynamically stable with potential for discharge this shift. Summary: Discharge orders and instructions received. Verbalizes understanding, IV and telemetry removed. Discharged to private vehicle with girlfriend and all belongings per W/C. * Plan of Care - Dixon Tripp RN - 01/17/2020 3:13 AM CDT Goals: Clinical Goals for the Shift: Pt. will be hemodynamatically stable. Summary: * Plan of Care - Shelia Lam Cae, RN - 01/16/2020 5:07 PM CDT Goals: Clinical Goals for the Shift: Pt will remain hemodynamically stable this shift. Summary: Denies pain today. Strong occasional nonnproductive cough. Up to shower, states he feels short of breath when up and about, O2 at 2L/min NC. Appetite fair throughout day. * Plan of Care - Dixon Tripp RN - 01/16/2020 3:41 AM CDT Goals: Clinical Goals for the Shift: Patient to be hemodynamatically stable. Summary: FSBS remain elevated. Increased insulin needs given. * Plan of Care - Kiara Jose RN - 01/15/2020 2:30 PM CDT Goals: Problem: Health Behavior: Goal: Understanding of discharge needs will improve Outcome: Progressing Problem: Lack of Knowledge: Goal: Knowledge of risk factors and measures for prevention of condition will improve Outcome: Progressing Problem: Coping: Goal: Psychosocial and spiritual needs will be supported Outcome: Progressing Problem: Respiratory: Goal: Will maintain a patent airway Outcome: Progressing Goal: Complications related to the disease process, condition or treatment will be avoided or minimized Outcome: Progressing Clinical Goals for the Shift: Patient to be free of injury with VSS Summary: Patient remained free of injury. Patient is cooperative and polite. He is complaint with medication and receptive to education. Per patient request I did a Facetime update with his mother while I was in the room. Mother had no further questions. Will continue to monitor. * Plan of Care - Kaley Graves RN - 01/15/2020 3:48 AM CDT Goals: Clinical Goals for the Shift: Patient will rest comfortably, stable vital signs Summary: Patient resting comfortably in bed with no complaints. Patient on 2 liters of oxygen with a continuous pulse-ox reading in the upper 90's. Patient is alert and orientated and knows limitations, and ambulates with a steady gait. Vital signs have been within normal limits. Problem: Health Behavior: Goal: Understanding of discharge needs will improve Outcome: Not Progressing Problem: Lack of Knowledge: Goal: Knowledge of risk factors and measures for prevention of condition will improve Outcome: Not Progressing Problem: Coping: Goal: Psychosocial and spiritual needs will be supported Outcome: Not Progressing Problem: Respiratory: Goal: Will maintain a patent airway Outcome: Not Progressing Goal: Complications related to the disease process, condition or treatment will be avoided or minimized Outcome: Not Progressing documented in this encounter Plan of Treatment Not on file documented as of this encounter Procedures Procedure Name Priority Date/Time Associated Diagnosis Comments POCT GLUCOSE DEVICE Routine 01/17/2020 8 :12 AM CDT EGFR Routine 01/17/2020 7:29 AM CDT CBC WITHOUT DIFFERENTIAL Routine 01/17/2020 7:29 AM CDT PHOSPHORUS Routine 01/17/2020 7:29 AM CDT MAGNESIUM Routine 01/17/2020 7:29 AM CDT COMPREHENSIVE METABOLIC PANEL Routine 01/17/2020 7:29 AM CDT POCT GLUCOSE DEVICE Routine 01/17/2020 1 :51 AM CDT POCT GLUCOSE DEVICE Routine 01/16/2020 8 :39 PM CDT POCT GLUCOSE DEVICE Routine 01/16/2020 5 :15 PM CDT POCT GLUCOSE DEVICE Routine 01/16/2020 1 1:53 AM CDT POCT GLUCOSE DEVICE Routine 01/16/2020 7 :46 AM CDT EGFR Routine 01/16/2020 7:03 AM CDT D-DIMER, QUANTITATIVE Timed 01/16/2020 7:03 AM CDT CBC WITHOUT DIFFERENTIAL Routine 01/16/2020 7:03 AM CDT PHOSPHORUS Routine 01/16/2020 7:03 AM CDT MAGNESIUM Routine 01/16/2020 7:03 AM CDT FERRITIN Timed 01/16/2020 7:03 AM CDT COMPREHENSIVE METABOLIC PANEL Routine 01/16/2020 7:03 AM CDT POCT GLUCOSE DEVICE Routine 01/16/2020 6 :32 AM CDT POCT GLUCOSE DEVICE Routine 01/16/2020 2 :20 AM CDT POCT GLUCOSE DEVICE Routine 01/15/2020 8 :38 PM CDT PROCALCITONIN Add-On 01/15/2020 6:55 PM CDT POCT GLUCOSE DEVICE Routine 01/15/2020 5 :01 PM CDT POCT GLUCOSE DEVICE Routine 01/15/2020 1 1:28 AM CDT POCT GLUCOSE DEVICE Routine 01/15/2020 8 :01 AM CDT POCT GLUCOSE DEVICE Routine 01/15/2020 2 :37 AM CDT POCT GLUCOSE DEVICE Routine 01/14/2020 1 0:04 PM CDT TROPONIN T STAT 01/14/2020 9:35 PM CDT BLOOD CULTURE STAT 01/14/2020 6:35 PM CDT XR CHEST 1 VIEW ED 01/14/2020 6:34 PM CDT ECG 12-LEAD STAT 01/14/2020 6:24 PM CDT D-DIMER, QUANTITATIVE STAT 01/14/2020 6:07 PM CDT CRP (ACUTE PHASE) STAT 01/14/2020 6:0 7 PM CDT FERRITIN Routine 01/14/2020 6:07 PM CDT SEPSIS LACTATE WITH REFLEX STAT 01/14/2020 6:06 PM CDT EGFR STAT 01/14/2020 6:06 PM CDT DIFFERENTIAL AUTO STAT 01/14/2020 6:0 6 PM CDT CBC WITH AUTO DIFFERENTIAL STAT 01/14/2020 6:06 PM CDT BLOOD CULTURE STAT 01/14/2020 6:06 PM CDT COMPREHENSIVE METABOLIC PANEL STAT 01/14/2020 6:06 PM CDT documented in this encounter Results * (ABNORMAL) POCT glucose (01/17/2020 8:12 AM CDT) Glucose, POC 270(H) 71 - 98 mg/dL [facility] ([place]) Blood specimen (specimen) 01/17/2020 8:12 AM CDT 01/17/2020 8:12 AM CDT Giuliano Linton Jr., MD LAB POCT ORDERABLES - DEVICE Final Result Performing Organization Address City/State/[facility] Co de Phone Number [facility] ([place]) 1 [facility] Department [place] [address] * eGFR (01/17/2020 7:29 AM CDT) Pathologist [facility] eGFR 132 mL/min/1.7 3 m2 [facility] ([place]) Comment: Interpretive Data Reference Interval Normal ?>/= 90 mL/min/1.73m2 Mildly decreased* ? 60 - 89 mL/min/1.73m2 Mildly to moderately decreased ?45 - 59 mL/min/1.73m2 Moderately to severely decreased ??30 - 44 mL/min/1.73m2 Severely decreased ?15 - 29 mL/min/1.73m2 Kidney Failure ?< 15 ??mL/min/1.73m2 *Relative to young adult level If -Austrian multiply value by 1.16. Estimated glomerular filtration rate is determined by the CKD-EPI equation recommended by the National Kidney Foundation (KDIGO 2012 Clinical Practice Guideline for the Evaluation and Management of Chronic Kidney Disease. Kidney Intnl Suppl May 2012;3:1). The CKD-EPI equation should not be used for patients with unstable renal function and has not been validated in children and those over 70. Current interpretive data was last reviewed 2015. Blood specimen (specimen) 01/17/2020 7:29 AM CDT 01/17/2020 7:43 AM CDT us Giuliano Linton Jr., MD LAB BLOOD ORDERABLE S Final Result [facility] ([place]) 1 [facility] Department [place] [address] * (ABNORMAL) Comprehensive metabolic panel (01/17/2020 7:29 AM CDT) Sodium 132(L) 135 - 145 mmol/L [facility] ([place]) Potassium, pl 4.6 3.3 - 4.9 mmol/L [facility] ([place]) Chloride 98 97 - 110 mmol/L [facility] ([place]) CO2 24 22 - 32 mmol/L [facility] ([place]) Anion gap 10 2 - 15 mmol/L [facility] ([place]) BUN 15 8 - 25 mg/dL [facility] ([place]) Creatinine 0.72(L) 0.80 - 1.30 mg/dL [facility] ([place]) Glucose 269(H) 70 - 199 mg/dL [facility] ([place]) Comment: Interpretive Data Fasting glucose >/= 126 [...] interpretive data was last revised 2017. Calcium 9.2 8.5 - 10.3 mg/dL [facility] ([place]) Bilirubin, total 0.3 0.1 - 1.2 mg/dL [facility] ([place]) Protein, pl 7.3 6.5 - 8.5 g/dL [facility] ([place]) Albumin 4.0 3.5 - 5.0 g/dL [facility] ([place]) Alk phos 62 40 - 130 Units/L [facility] ([place]) ALT 102(H) 7 - 55 Units/L [facility] ([place]) AST 48 10 - 50 Units/L [facility] ([place]) Comment: Hemolysis present. ??Results may be affected. Slightly Hemolyzed Specimen Blood specimen (specimen) 01/17/2020 7:29 AM CDT 01/17/2020 7:43 AM CDT Giuliano Linton Jr., MD LAB BLOOD ORDERABLE S Final Result Performing Organization Address City/[facility]/ZIP Co de Phone Number [facility] ([place]) 1 [facility] [employer] [place] [address] * Phosphorus (01/17/2020 7:29 AM CDT) Phosphorus, pl 3.9 2.3 - 4.5 mg/dL [facility] ([place]) Blood specimen (specimen) 01/17/2020 7:29 AM CDT 01/17/2020 7:43 AM CDT Giuliano Linton Jr., MD LAB BLOOD ORDERABLE S Final Result [facility] ([place]) 1 [facility] [place] [address] * Magnesium (01/17/2020 7:29 AM CDT) Magnesium 2.1 1.4 - 2.5 mg/dL [facility] ([place]) Blood specimen (specimen) 01/17/2020 7:29 AM CDT 01/17/2020 7:43 AM CDT us Giuliano Linton Jr., MD LAB BLOOD ORDERABLE S Final Result [facility] ([place]) 1 [facility] [place] [address] * CBC without differential (01/17/2020 7:29 AM CDT) WBC 5.3 3.8 - 9.9 K/cumm [facility] ([place]) Hgb 13.7 13.0 - 17.5 g/dL [facility] ([place]) Hct 39.4 38.9 - 50.3 % [facility] ([place]) Plt 228 150 - 400 K/cumm [facility] ([place]) MPV 10.0 9.1 - 12.3 fL [facility] ([place]) RBC 4.69 4.30 - 5.80 M/cumm [facility] ([place]) MCV 84.0 81.3 - 96.4 fL [facility] ([place]) MCH 29.2 27.1 - 33.3 pg [facility] ([place]) MCHC 34.8 32.3 - 35.7 g/dL [facility] ([place]) RDW CV 11.9 11.1 - 14.9 % [facility] ([place]) RDW SD 36.4 35.7 - 48.1 fL [facility] ([place]) NRBC abs 0.00 0.00 - 0.01 K/cumm [facility] ([place]) Blood specimen (specimen) 01/17/2020 7:29 AM CDT 01/17/2020 7:43 AM CDT us Giuliano Linton Jr., MD LAB BLOOD ORDERABLE S Final Result [facility] ([place]) 1 [facility] [place] [address] * (ABNORMAL) POCT glucose (01/17/2020 1:51 AM CDT) Glucose, POC 294(H) 71 - 98 mg/dL [facility] ([place]) Blood specimen (specimen) 01/17/2020 1:51 AM CDT 01/17/2020 1:51 AM CDT Giuliano Linton Jr., MD LAB POCT ORDERABLES - DEVICE Final Result Performing Organization Address [facility]/ZIP Co de Phone Number [facility] ([place]) 1 [facility] [place] [address] * (ABNORMAL) POCT glucose (01/16/2020 8:39 PM CDT) Glucose, POC 296(H) 71 - 98 mg/dL [facility]) Blood specimen (specimen) 01/16/2020 8:39 PM CDT 01/16/2020 8:39 PM CDT Giuliano Linton Jr., MD LAB POCT ORDERABLES - DEVICE Final Result Performing Organization Address [facility] Co de Phone Number [facility] LEIV[facility] ([place]) 1 [facility] [place] [address] * (ABNORMAL) POCT glucose (01/16/2020 5:15 PM CDT) Glucose, POC 307(H) 71 - 98 mg/dL [facility] ([place]) Blood specimen (specimen) 01/16/2020 5:15 PM CDT 01/16/2020 5:15 PM CDT Giuliano Linton Jr., MD LAB POCT ORDERABLES - DEVICE Final Result Performing Organization Address City/[facility]/ZIP Co de Phone Number [facility]IV[facility] ([place]) 1 [facility] [place] [address] * (ABNORMAL) POCT glucose (01/16/2020 11:53 AM CDT) Glucose, POC 270(H) 71 - 98 mg/dL [facility] ([place]) Blood specimen (specimen) 01/16/2020 11:53 AM CDT 01/16/2020 11:53 AM CDT us Giuliano Linton Jr., MD LAB POCT ORDERABLES - DEVICE Final Result Performing Organization Address City/[facility]/ZIP Co de Phone Number TRAC[facility] LEIVA ([place]) [address] [place] [address] * (ABNORMAL) POCT glucose (01/16/2020 7:46 AM CDT) Glucose, POC 309(H) 71 - 98 mg/dL [facility] ([place]) Blood specimen (specimen) 01/16/2020 7:46 AM CDT 01/16/2020 7:46 AM CDT us Giuliano Linton Jr., MD LAB POCT ORDERABLES - DEVICE Final Result Performing Organization Address [facility] de Phone Number [facility] ([place]) 1 [facility] [place] [address] * eGFR (01/16/2020 7:03 AM CDT) [facility] eGFR 143 mL/min/1.7 3 m2 [facility] ([place]) Comment: Interpretive Data Reference Interval Normal ?>/= 90 mL/min/1.73m2 Mildly decreased* ? 60 - 89 mL/min/1.73m2 Mildly to moderately decreased ?45 - 59 mL/min/1.73m2 Moderately to severely decreased ??30 - 44 mL/min/1.73m2 Severely decreased ?15 - 29 mL/min/1.73m2 Kidney Failure ?< 15 ??mL/min/1.73m2 *Relative to young adult level If -Austrian multiply value by 1.16. Estimated glomerular filtration rate is determined by the CKD-EPI equation recommended by the National Kidney Foundation (KDIGO 2012 Clinical Practice Guideline for the Evaluation and Management of Chronic Kidney Disease. Kidney Intnl Suppl May 2012;3:1). The CKD-EPI equation should not be used for patients with unstable renal function and has not been validated in children and those over 70. Current interpretive data was last reviewed 2015. Blood specimen (specimen) 01/16/2020 7:03 AM CDT 01/16/2020 7:05 AM CDT us Giuliano Linton Jr., MD LAB BLOOD ORDERABLE S Final Result Performing Organization Address City/[facility] Co de Phone Number [facility]AC[facility] LEIVA ([place]) 1 [facility] [place] [address] * D-dimer, quantitative (01/16/2020 7:03 AM CDT) D-Dimer <215 <=499 ng/mL FEU [facility] ([place]) Comment: Interpretive data FDA approved the D-dimer, in conjunction with a low or moderate pretest probability score, to exclude venous thromboembolic events (VTE) (PE and DVT) in outpatients when the D-dimer result is < 500 ng/ml FEU. ?? Evidence supports using an age-adjusted D-dimer cut-off for outpatients older than 50 (age x 10) to improve specificity without sacrificing sensitivity. Example: age 68, VTE cut-off 680 ng/ml FEU. References; Schouten HT et al. Brit Med J. 2013;346:f2492. Michelle et al. Annals Int Med. 2015;163:701-11. Current interpretive data was last revised on 2019. Blood specimen (specimen) 01/16/2020 7:03 AM CDT 01/16/2020 7:05 AM CDT us Giluiano Linton Jr., MD LAB BLOOD ORDERABLE S Final Result Performing Organization Address City/[facility]/ZIP Co de Phone Number [facility] ([place]) 1 [facility] [employer] [place] [address] * (ABNORMAL) Comprehensive metabolic panel (01/16/2020 7:03 AM CDT) Sodium 130(L) 135 - 145 mmol/L [facility] ([place]) Potassium, pl 4.2 3.3 - 4.9 mmol/L [facility] ([place]) Chloride 97 97 - 110 mmol/L [facility] ([place]) CO2 21(L) 22 - 32 mmol/L [facility] ([place]) Anion gap 13 2 - 15 mmol/L [facility] ([place]) BUN 13 8 - 25 mg/dL [facility] ([place]) Creatinine 0.60(L) 0.80 - 1.30 mg/dL [facility] ([place]) Glucose 283(H) 70 - 199 mg/dL [facility] ([place]) Comment: Interpretive Data Fasting glucose >/= 126 [...] interpretive data was last revised 2017. Calcium 9.2 8.5 - 10.3 mg/dL [facility] ([place]) Bilirubin, total 0.4 0.1 - 1.2 mg/dL [facility] ([place]) Protein, pl 7.6 6.5 - 8.5 g/dL [facility] ([place]) Albumin 4.1 3.5 - 5.0 g/dL [facility] ([place]) Alk phos 61 40 - 130 Units/L [facility] ([place]) ALT 107(H) 7 - 55 Units/L [facility] ([place]) AST 50 10 - 50 Units/L [facility] ([place]) Blood specimen (specimen) 01/16/2020 7:03 AM CDT 01/16/2020 7:05 AM CDT Giuliano Linton Jr., MD LAB BLOOD ORDERABLE S Final Result [facility] ([place]) 1 [facility] [place] [address] * (ABNORMAL) Ferritin (01/16/2020 7:03 AM CDT) Ferritin 1,523(H) 30 - 400 ng/mL [facility] ([place]) Blood specimen (specimen) 01/16/2020 7:03 AM CDT 01/16/2020 7:05 AM CDT us Giuliano Linton Jr., MD LAB BLOOD ORDERABLE S Final Result Performing Organization Address City/[facility]/ZIP Co de Phone Number [facility] ([place]) 1 [facility] [place] [address] * Phosphorus (01/16/2020 7:03 AM CDT) Phosphorus, pl 3.9 2.3 - 4.5 mg/dL [facility] ([place]) Blood specimen (specimen) 01/16/2020 7:03 AM CDT 01/16/2020 7:05 AM CDT us Giuliano Linton Jr., MD LAB BLOOD ORDERABLE S Final Result [facility] ([place]) 1 [facility] [place] [address] * Magnesium (01/16/2020 7:03 AM CDT) Magnesium 2.3 1.4 - 2.5 mg/dL [facility] ([place]) Blood specimen (specimen) 01/16/2020 7:03 AM CDT 01/16/2020 7:05 AM CDT us Giuliano Linton Jr., MD LAB BLOOD ORDERABLE S Final Result [facility] ([place]) 1 [facility] [place] [address] * CBC without differential (01/16/2020 7:03 AM CDT) WBC 4.4 3.8 - 9.9 K/cumm [facility] ([place]) Hgb 13.6 13.0 - 17.5 g/dL [facility] ([place] Hct 39.5 38.9 - 50.3 % [facility] ([place]) Plt 235 150 - 400 K/cumm [facility] ([place]) MPV 9.6 9.1 - 12.3 fL [facility] ([place]) RBC 4.72 4.30 - 5.80 M/cumm [facility] ([place]) MCV 83.7 81.3 - 96.4 fL [facility] ([place]) MCH 28.8 27.1 - 33.3 pg [facility] ([place]) MCHC 34.4 32.3 - 35.7 g/dL [facility] ([place]) RDW CV 11.9 11.1 - 14.9 % [facility] ([place] RDW SD 36.1 35.7 - 48.1 fL [facility] ([place]) NRBC abs 0.00 0.00 - 0.01 K/cumm [facility] ([place]) Blood specimen (specimen) 01/16/2020 7:03 AM CDT 01/16/2020 7:05 AM CDT Giuliano Linton Jr., MD LAB BLOOD ORDERABLE S Final Result [facility] ([place]) 1 [facility] [place] [address] * (ABNORMAL) POCT glucose (01/16/2020 6:32 AM CDT) Glucose, POC 274(H) 71 - 98 mg/dL [facility] ([place]) Blood specimen (specimen) 01/16/2020 6:32 AM CDT 01/16/2020 6:32 AM CDT Giuliano Linton Jr., MD LAB POCT ORDERABLES - DEVICE Final Result Performing Organization Address City/[facility]/ZIP Co de Phone Number [facility] ([place]) 1 [facility] [place] [address] * (ABNORMAL) POCT glucose (01/16/2020 2:20 AM CDT) Glucose, POC 304(H) 71 - 98 mg/dL [facility] ([place]) Blood specimen (specimen) 01/16/2020 2:20 AM CDT 01/16/2020 2:20 AM CDT us Giuliano Linton Jr., MD LAB POCT ORDERABLES - DEVICE Final Result Performing Organization Address [facility] Co de Phone Number [facility] ([place]) 1 [facility] [place] [address] * (ABNORMAL) POCT glucose (01/15/2020 8:38 PM CDT) Glucose, POC 326(H) 71 - 98 mg/dL [facility] ([place]) Blood specimen (specimen) 01/15/2020 8:38 PM CDT 01/15/2020 8:38 PM CDT Giuliano Linton Jr., MD LAB POCT ORDERABLES - DEVICE Final Result Performing Organization Address City/[facility]/ZIP Co de Phone Number [facility] ([place]) 1 [facility] [place] [address] * Procalcitonin (01/15/2020 6:55 PM CDT) Procalcitonin <0.10 <=0.15 ng/mL [facility] ([place]) Comment: Test Performed by: [facility] [address] [place] [address] Head Kiln Operator: Josiah Turk M.D. Ph.D.; CLIA# [id number] Blood specimen (specimen) 01/15/2020 6:55 PM CDT 01/15/2020 6:57 PM CDT Narrative [facility] ([place]) - 01/19/2020 9:40 AM CDT Sent bag up at01/15/2020 16:33:03 CDT [id number] us Giuliano Linton Jr., MD LAB BLOOD ORDERABLE S Final Result Performing Organization Address City/[facility]/ZIP Co de Phone Number [facility] ([place]) 1 [facility] [place] [address] * (ABNORMAL) POCT glucose (01/15/2020 5:01 PM CDT) Glucose, POC 334(H) 71 - 98 mg/dL [facility] ([place]) Blood specimen (specimen) 01/15/2020 5:01 PM CDT 01/15/2020 5:01 PM CDT us Giuliano Linton Jr., MD LAB POCT ORDERABLES - DEVICE Final Result Performing Organization Address [facility] Co de Phone Number [facility] ([place]) 1 [facility] [place] [address] * (ABNORMAL) POCT glucose (01/15/2020 11:28 AM CDT) Glucose, POC 319(H) 71 - 98 mg/dL [facility] ([place]) Comment:Glu2: RN/ Notified Blood specimen (specimen) 01/15/2020 11:28 AM CDT 01/15/2020 11:28 AM CDT us Berenice Lassiter MD LAB POCT ORDERABLES - DEVICE Final Result Performing Organization Address City/[facility]/ZIP Co de Phone Number [facility] ([place]) 1 [facility] [place] [address] * (ABNORMAL) POCT glucose (01/15/2020 8:01 AM CDT) Glucose, POC 242(H) 71 - 98 mg/dL [facility] ([place]) Blood specimen (specimen) 01/15/2020 8:01 AM CDT 01/15/2020 8:01 AM CDT us Giuliano Linton Jr., MD LAB POCT ORDERABLES - DEVICE Final Result [facility] ([place]) 1 [facility] [place] [address] * (ABNORMAL) POCT glucose (01/15/2020 2:37 AM CDT) Glucose, POC 189(H) 71 - 98 mg/dL [facility] ([place]) Blood specimen (specimen) 01/15/2020 2:37 AM CDT 01/15/2020 2:37 AM CDT us Berenice Lassiter MD LAB POCT ORDERABLES - DEVICE Final Result Performing Organization Address [facility] Co de Phone Number [facility] ([place]) 1 [facility] [place] [address] * (ABNORMAL) POCT glucose (01/14/2020 10:04 PM CDT) Glucose, POC 133(H) 71 - 98 mg/dL [facility] ([place]) Blood specimen (specimen) 01/14/2020 10:04 PM CDT 01/14/2020 10:04 PM CDT us Berenice Lassiter MD LAB POCT ORDERABLES - DEVICE Final Result [facility] ([place]) 1 [facility] [place] [address] * Troponin T (01/14/2020 9:35 PM CDT) Troponin T <0.01 0.00 - 0.01 ng/mL [facility] ([place]) Comment: Interpretive Data Reference ranges for children <18 years of age have not been established. - > or = 18 years: Serial determinations are recommended for the diagnosis of myocardial infarction. ??Temporal rise and fall are consistent with myocardial infarction when at least one value is above the 99th percentile upper reference limit for troponin assay. ??Journal of the [place] [employer] 2012;60:1581-98. Current Interpretive Data Last Revised Date: 2017. Blood specimen (specimen) 01/14/2020 9:35 PM CDT 01/14/2020 9:41 PM CDT us Francine Denis MD LAB BLOOD ORDERABLES Fin al Result [facility] ([place]) 1 [facility] Department [place] [address] * Blood culture Blood Antecubital, left (01/14/2020 6:35 PM CDT) Report Final Report: No growth [facility] ([place]) Comment:Testing performed by : [facility], [address] [facility], [place]., [address] Blood specimen (specimen) (Antecubital, left) 01/14/2020 6:35 PM CDT 01/14/2020 10:16 PM CDT Narrative [facility] ([place]) - 01/19/2020 7:00 AM CDT 1. ?Blood cultures are incubated for 4 days on a continuously monitored blood culture system. The first report of a negative culture is issued within 24 hours of receipt of the specimen in the laboratory. 2. ?Positive culture results are reported as soon as they are detected. 3. ?The most important factor for detection of microbes in the setting of bloodstream infection is the volume of blood submitted for culture. Failure to collect an optimal blood volume can result in false negative blood cultures. For pediatric patients, the recommended blood volume to collect is 1 mL of blood per year of patient age (up to 20 mL) per blood culture set. For adult patients, 20 mL of blood, divided equally between aerobic and anaerobic blood culture bottles, is recommended for each blood culture set. 4. ?For blood cultures with Gram-positive cocci, a rapid molecular test for organism identification may be performed using the Verigene Gram-Positive Blood Culture Assay. This assay detects microbial DNA in positive blood culture broth via hybridization of target DNA to capture oligonucleotides on a microarray. This assay has been cleared by the [place] Food and Drug Administration and its performance characteristics have been verified by the [facility]. 5. ?For questions about this culture, contact the Microbiology Laboratory at [phone]. Interpretive data was last revised on 2019. us Francine Denis MD LAB MICROBIOLOGY - GENER AL ORDERABLES Final Result [facility] ([place]) 1 [facility] [place] [address] * XR CHEST 1 VIEW PORTABLE (01/14/2020 6:34 PM CDT) Anatomical Region Laterality Modality Body, Chest N/A Computed Radiogr aphy 01/14/2020 6:28 PM CDT Impressions 01/14/2020 7:56 PM CDT ??Low lung volumes and mild bibasilar airspace opacities, which may represent atelectasis or pneumonia. ??Short interval radiographic follow-up to resolution is recommended. THIS IS AN ELECTRONICALLY VERIFIED FINAL REPORT 01/14/2020 7:53 PM - Electronically signed by Radames Pritchard M.D. AB: AB D: ??01/14/2020 7:53 PM T: ??01/14/2020 7:53 PM Report ID: [id number] Reading Location: ??[id number] Narrative 01/14/2020 7:56 PM CDT [facility] ?Imaging Result Name: CRISTI VELEZ ? Ordering Phys: FRANCINE DENIS Age: 24 ?Date of : 1995 ? Accession Number: [id number] Date of Service: 01/14/2020 ??Gender: M EXAM DESCRIPTION: ?? XR CHEST 1 VIEW REASON FOR STUDY: ??Cough, shortness of breath, fever, dizziness, loss of smell, vomiting, and diarrhea for 3 days. TECHNIQUE: ?? Frontal radiographic view of the chest acquired. COMPARISON: ?? None available. ?? LUNGS/PLEURA: The lung volumes are low and there are mild bibasilar airspace opacities. ??There is no evidence of a pleural effusion or pneumothorax. HEART/MEDIASTINUM: The heart size is upper limits of normal for AP technique. HARDWARE/LINES/TUBES: None. BONES: There are no acute or aggressive appearing osseous abnormalities. Procedure Note Radames Pritchard MD - 01/14/2020 [facility] Imaging Result Name: TIFFANI CRISTI Darrick Ordering Phys: FRANCINE DENIS Age: 24 Date of : 1995 Accession Number: [id number] Date of Service: 01/14/2020 Gender: M EXAM DESCRIPTION: XR CHEST 1 VIEW REASON FOR STUDY: Cough, shortness of breath, fever, dizziness, loss of smell, vomiting, and diarrhea for 3 days. TECHNIQUE: Frontal radiographic view of the chest acquired. COMPARISON: None available. LUNGS/PLEURA: The lung volumes are low and there are mild bibasilar airspace opacities. There is no evidence of a pleural effusionor pneumothorax. HEART/MEDIASTINUM: The heart size is upper limits of normal for APtechnique. HARDWARE/LINES/TUBES: None. BONES: There are no acute or aggressive appearing osseous abnormalities. IMPRESSION: Low lung volumes and mild bibasilar airspace opacities, which may represent atelectasis or pneumonia. Short interval radiographic follow-upto resolution is recommended. THIS IS AN ELECTRONICALLY VERIFIED FINAL REPORT 01/14/2020 7:53 PM - Electronically signed by Radames Pritchard M.D. AB: Report ID: [id number] Reading Location: [place] [address] us Francine Denis MD IMG XR PROCEDURES Final Result * ECG 12 lead (01/14/2020 6:24 PM CDT) 01/14/2020 6:24 PM CDT Narrative [facility] - 01/15/2020 12:54 PM CDT Vent Rate: 0 bpm RR Interval: [address] Interval: 0 msec QRS Duration: 0 msec QT Interval: 0 msec QTC Interval: 0 msec P-R-T Brock: 0 - 0 - 0 degrees Sinus tachycardia Old inferior infarct Electronically Signed By: Dr Giuliano Velasco Francine Denis MD ECG ORDERABLES Final Re sult Performing Organization Address [facility]/ZIP Co de Phone Number [facility] [employer] [facility] * (ABNORMAL) Ferritin (01/14/2020 6:07 PM CDT) Ferritin 1,661(H) 30 - 400 ng/mL [facility] ([place]) Blood specimen (specimen) 01/14/2020 6:07 PM CDT 01/14/2020 6:53 PM CDT Francine Denis MD LAB BLOOD ORDERABLES Arsh cristel Result - Final Performing Organization Address [facility] Co de Phone Number [facility] ([place]) 1 [facility] [employer] [place] [address] * (ABNORMAL) CRP (acute phase) (01/14/2020 6:07 PM CDT) CRP 25.6(H) <=10.0 mg/L [facility] ([place]) Blood specimen (specimen) 01/14/2020 6:07 PM CDT 01/14/2020 6:53 PM CDT Francine Denis MD LAB BLOOD ORDERABLES Fin al Result Performing Organization Address [facility] Co de Phone Number [facility] ([place]) 1 [facility] [place] [address] * D-dimer, quantitative (01/14/2020 6:07 PM CDT) Pathologist [facility] D-Dimer 319 <=499 ng/mL FEU [facility] ([place]) Comment: Interpretive data FDA approved the D-dimer, in conjunction with a low or moderate pretest probability score, to exclude venous thromboembolic events (VTE) (PE and DVT) in outpatients when the D-dimer result is < 500 ng/ml FEU. ?? Evidence supports using an age-adjusted D-dimer cut-off for outpatients older than 50 (age x 10) to improve specificity without sacrificing sensitivity. Example: age 68, VTE cut-off 680 ng/ml FEU. References; Jyothi HT et al. Brit Med J. 2013;346:f2492. Michelle et al. Annals Int Med. 2015;163:701-11. Current interpretive data was last revised on 2019. Blood specimen (specimen) 01/14/2020 6:07 PM CDT 01/14/2020 6:53 PM CDT Francine Denis MD LAB BLOOD ORDERABLES Fin al Result [facility] ([place]) 1 [facility] Department of Laboratories [place], [place] [id number] * eGFR (01/14/2020 6:06 PM CDT) [facility] eGFR 126 mL/min/1.7 3 m2 [facility] ([place]) Comment: Interpretive Data Reference Interval Normal ?>/= 90 mL/min/1.73m2 Mildly decreased* ? 60 - 89 mL/min/1.73m2 Mildly to moderately decreased ?45 - 59 mL/min/1.73m2 Moderately to severely decreased ??30 - 44 mL/min/1.73m2 Severely decreased ?15 - 29 mL/min/1.73m2 Kidney Failure ?< 15 ??mL/min/1.73m2 *Relative to young adult level If -Austrian multiply value by 1.16. Estimated glomerular filtration rate is determined by the CKD-EPI equation recommended by the National Kidney Foundation (KDIGO 2012 Clinical Practice Guideline for the Evaluation and Management of Chronic Kidney Disease. Kidney Intnl Suppl May 2012;3:1). The CKD-EPI equation should not be used for patients with unstable renal function and has not been validated in children and those over 70. Current interpretive data was last reviewed 2015. Blood specimen (specimen) 01/14/2020 6:06 PM CDT 01/14/2020 6:12 PM CDT us Ron Rangel MD LAB BLOOD ORDERABLES Final Res ult [facility] ([place]) 1 [facility] [place] [address] * Differential, auto (01/14/2020 6:06 PM CDT) Neutrophil abs 2.6 1.7 - 6.5 K/cumm [facility] ([place]) Imm gran abs 0.0 0.0 - 0.1 K/cumm [facility] ([place]) Lymphocyte abs 1.0 0.8 - 3.3 K/cumm [facility] ([place]) Monocyte abs 0.5 0.2 - 0.8 K/cumm [facility] ([place]) Eosinophil abs 0.1 0.0 - 0.5 K/cumm [facility] ([place]) Basophil abs 0.0 0.0 - 0.1 K/cumm [facility] ([place]) Neutrophil pct 63.2 % [facility] ([place]) Comment: Interpretive Data Percent cell count reference ranges are not reported, since discordance with absolute values may lead to misinterpretation of CBC data. Current Interpretive Data was last revised on 2017. Imm gran pct 0.2 % [facility] ([place]) Comment: Interpretive Data Percent cell count reference ranges are not reported, since discordance with absolute values may lead to misinterpretation of CBC data. Current Interpretive Data was last revised on 2017. Lymphocyte pct 23.6 % [facility] ([place]) Comment: Interpretive Data Percent cell count reference ranges are not reported, since discordance with absolute values may lead to misinterpretation of CBC data. Current Interpretive Data was last revised on 2017. Monocyte pct 11.1 % [facility] ([place]) Comment: Interpretive Data Percent cell count reference ranges are not reported, since discordance with absolute values may lead to misinterpretation of CBC data. Current Interpretive Data was last revised on 2017. Eosinophil pct 1.7 % [facility] ([place]) Comment: Interpretive Data Percent cell count reference ranges are not reported, since discordance with absolute values may lead to misinterpretation of CBC data. Current Interpretive Data was last revised on 2017. Basophil pct 0.2 % [facility] ([place]) Comment: Interpretive Data Percent cell count reference ranges are not reported, since discordance with absolute values may lead to misinterpretation of CBC data. Current Interpretive Data was last revised on 2017. Blood specimen (specimen) 01/14/2020 6:06 PM CDT 01/14/2020 6:12 PM CDT Ron Rangel MD LAB BLOOD ORDERABLES Final Res ult [facility] ([place]) 1 [facility] [place] [address] * Blood culture Blood Antecubital, right (01/14/2020 6:06 PM CDT) Report Final Report: No growth [facility] ([place]) Comment:Testing performed by : [facility], [address] [facility], [place]., [address] Blood specimen (specimen) (Antecubital, right) 01/14/2020 6:06 PM CDT 01/14/2020 10:14 PM CDT Narrative [facility] ([place]) - 01/19/2020 7:00 AM CDT 1. ?Blood cultures are incubated for 4 days on a continuously monitored blood culture system. The first report of a negative culture is issued within 24 hours of receipt of the specimen in the laboratory. 2. ?Positive culture results are reported as soon as they are detected. 3. ?The most important factor for detection of microbes in the setting of bloodstream infection is the volume of blood submitted for culture. Failure to collect an optimal blood volume can result in false negative blood cultures. For pediatric patients, the recommended blood volume to collect is 1 mL of blood per year of patient age (up to 20 mL) per blood culture set. For adult patients, 20 mL of blood, divided equally between aerobic and anaerobic blood culture bottles, is recommended for each blood culture set. 4. ?For blood cultures with Gram-positive cocci, a rapid molecular test for organism identification may be performed using the [employer] Blueigene Gram-Positive Blood Culture Assay. This assay detects microbial DNA in positive blood culture broth via hybridization of target DNA to capture oligonucleotides on a microarray. This assay has been cleared by the [place] Food and Drug Administration and its performance characteristics have been verified by the [facility]. 5. ?For questions about this culture, contact the Microbiology Laboratory at [phone]. Interpretive data was last revised on 2019. Francine Denis MD LAB MICROBIOLOGY - GENER AL ORDERABLES Final Result Performing Organization Address City/[facility]/ZIP Co de Phone Number [facility] ([place]) 1 [facility] [place] [address] * Sepsis Lactate w/ Reflex (01/14/2020 6:06 PM CDT) [facility] Sepsis Lactate 1.8 0.7 - 2.0 mmol/L [facility] ([place]) Blood specimen (specimen) 01/14/2020 6:06 PM CDT 01/14/2020 6:42 PM CDT Francine Denis MD LAB BLOOD ORDERABLES Fin al Result Performing Organization Address City/[facility] Co de Phone Number [facility] ([place]) 1 [facility] [place] [address] * (ABNORMAL) Comprehensive metabolic panel (01/14/2020 6:06 PM CDT) Sodium 134(L) 135 - 145 mmol/L [facility] ([place]) Potassium, pl 4.6 3.3 - 4.9 mmol/L [facility] ([place]) Chloride 101 97 - 110 mmol/L [facility] ([place]) CO2 22 22 - 32 mmol/L [facility] ([place]) Anion gap 11 2 - 15 mmol/L [facility] ([place]) BUN 14 8 - 25 mg/dL [facility] ([place]) Creatinine 0.81 0.80 - 1.30 mg/dL [facility] ([place]) Glucose 180 70 - 199 mg/dL [facility] ([place]) Comment: Interpretive Data Fasting glucose >/= 126 [...] interpretive data was last revised 2017. Calcium 9.7 8.5 - 10.3 mg/dL [facility] ([place]) Bilirubin, total 0.5 0.1 - 1.2 mg/dL [facility] ([place]) Protein, pl 7.9 6.5 - 8.5 g/dL [facility] ([place]) Albumin 4.6 3.5 - 5.0 g/dL [facility] ([place]) Alk phos 75 40 - 130 Units/L [facility] ([place]) ALT 147(H) 7 - 55 Units/L [facility] ([place]) AST 92(H) 10 - 50 Units/L [facility] ([place]) Blood specimen (specimen) 01/14/2020 6:06 PM CDT 01/14/2020 6:12 PM CDT us Ron Rangel MD LAB BLOOD ORDERABLES Final Res ult [facility] ([place]) 1 [facility] [place] [address] * CBC with auto differential (01/14/2020 6:06 PM CDT) WBC 4.1 3.8 - 9.9 K/cumm [facility] ([place]) Hgb 14.7 13.0 - 17.5 g/dL [facility] ([place]) Hct 42.4 38.9 - 50.3 % [facility] ([place]) Plt 226 150 - 400 K/cumm [facility] ([place]) MPV 9.6 9.1 - 12.3 fL [facility] ([place]) RBC 5.04 4.30 - 5.80 M/cumm [facility] ([place]) MCV 84.1 81.3 - 96.4 fL [facility] ([place]) MCH 29.2 27.1 - 33.3 pg [facility] ([place]) MCHC 34.7 32.3 - 35.7 g/dL [facility] ([place]) RDW CV 12.2 11.1 - 14.9 % [facility] ([place]) RDW SD 37.1 35.7 - 48.1 fL [facility] ([place]) NRBC abs 0.00 0.00 - 0.01 K/cumm [facility] ([place]) Blood specimen (specimen) 01/14/2020 6:06 PM CDT 01/14/2020 6:12 PM CDT us Ron Rangel MD LAB BLOOD ORDERABLES Final Res ult [facility] ([place]) 1 [facility] [place] [address] documented in this encounter Visit Diagnoses Diagnosis Pneumonia due to COVID-19 virus- Primary Pneumonia due to COVID-19 virus Tachycardia Unspecified tachycardia Elevated LFTs Other abnormal blood chemistry Asymmetric septal hypertrophy Essential hypertension Unspecified essential hypertension Morbid obesity with BMI of 50.0-59.9, adult (HCC) Fatty liver Other chronic nonalcoholic liver disease Type 2 diabetes mellitus without complication, with long-term current use of insulin (CMS/HCC) (HCC) Transaminitis Nonspecific elevation of levels of transaminase or lactic acid dehydrogenase (LDH) Elevated LFTs Other abnormal blood chemistry documented in this encounter Admitting Diagnoses Diagnosis Pneumonia due to COVID-19 virus documented in this encounter Administered Medications Inactive Administered Medications - up to 3 most recent administrations Medication Order MAR Action Action Date Dose Rate Site acetaminophen (TYLENOL) tablet 1,000 mg 1,000 mg, oral, Once, On Dayana 01/14/20 at 1820, For 1 dose Given 01/14/2020 6:33 PM CDT 1,000 mg albuterol HFA (PROVENTIL HFA,VENTOLIN HFA,PROAIR HFA) 90 mcg/actuation inhaler 2 puff 2 puff, inhalation, Once (collection correspondent), On Dayana 01/14/20 at 1937, For 1 dose Given 01/14/2020 8:10 PM CDT 2 puffs atorvastatin (LIPITOR) tablet 20 mg 20 mg, oral, Daily, First dose on Dayana 01/14/20 at 2230 Given 01/16/2020 9:30 PM CDT 20 mg Given 01/15/2020 9:17 PM CDT 20 mg Given 01/14/2020 11:53 PM CDT 20 mg azithromycin (ZITHROMAX) 500 mg in sodium chloride 0.9% 250 mL IVPB 500 mg, intravenous, at 255 mL/hr, Administer over 60 Minutes, Every 24 hours scheduled, First dose on Sat01/15/20 at 0545, Indications: Pneumonia, Community AcquiredIndications:Pneumonia, Community Acquired New Bag 01/16/2020 8:46 AM CDT 500 mg 255 mL/hr New Bag 01/15/2020 6:15 AM CDT 500 mg 255 mL/hr benzonatate (TESSALON) capsule 100 mg 100 mg, oral, Once, On Dayana 01/14/20 at 1937, For 1 dose, Do not crush, chew, cut, dissolve, open or otherwise manipulate tablet/capsule., Indications: CoughIndications:Cough Given 01/14/2020 8:24 PM CDT 100 mg carvediloL (COREG) tablet 25 mg 25 mg, oral, 2 times daily with meals (bkfst, dinner), First dose on Sat01/15/20 at 0800 Given 01/17/2020 8:34 AM CDT 2 5 mg Given 01/16/2020 5:24 PM CDT 25 mg Given 01/16/2020 8:46 AM CDT 25 mg cefTRIAXone (ROCEPHIN) 2,000 mg/20 mL in sterile water (premix) 2,000 mg 2,000 mg, intravenous, at 1,200 mL/hr, Administer over 1 Minutes, Every 24 hours scheduled, First dose on Sat01/15/20 at 0545, Indications: Pneumonia, Community AcquiredIndications:Pneumonia, Community Acquired Given 01/16/2020 8:47 AM CDT 2,000 mg 1200 mL/hr Given 01/15/2020 6:16 AM CDT 2,000 mg 1200 mL/hr dexAMETHasone (DECADRON) 4 mg/mL injection 6 mg 6 mg, intravenous, Administer over 2 Minutes, Daily, First dose on Sat01/15/20 at 0900 Given 01/17/2020 8:33 AM CDT 6 m g Given 01/16/2020 8:47 AM CDT 6 mg Given 01/15/2020 8:46 AM CDT 6 mg dexAMETHasone (DECADRON) injection solution 10 mg 10 mg, intravenous, Administer over 2 Minutes, Once, On Sat01/14/20 at 2103, For 1 dose Given 01/15/2020 12:49 AM CDT 10 mg dextrose (D10W) 10% bolus 250 mL 250 mL, intravenous, at 1,000 mL/hr, Administer over 15 Minutes, Every 15 min PRN, blood glucose less than 70 mg/dL and UNABLE to swallow/take PO glucose/juice., Starting on Sat01/14/20 at 2213, After treatment for hypoglycemia, recheck BG followed by treatment every 15 minutes until the BG is greater than 100 mg/dL. Then check BG 1 hour post treatment. If BG is less than 100 mg/dL, repeat Q15 minute BG checks and treatment. Call MD for each episode of hypoglycemia., Indications: hypoglycemic disorderIndications:hypoglycemic disorder dextrose gel in packet 15 g 15 g, oral, Every 15 min PRN, low blood sugar, blood glucose less than 70 mg/dL, Starting on Dayana 01/14/20 at 2213, If patient is alert and able to [...] 60 mg, oral, Daily, First dose on Sat01/15/20 at 0900, Capsule may be opened and contents mixed with applesauce or apple juice ONLY. Do not crush, chew, cut, dissolve, open or otherwise manipulate tablet/capsule., Indications: Anxiety with DepressionIndications:Anxiety with Depression Given 01/17/2020 8:3 4 AM CDT 60 mg Given 01/16/2020 8:46 AM CDT 60 mg Given 01/15/2020 8:45 AM CDT 60 mg enoxaparin (LOVENOX) syringe 40 mg 40 mg, subcutaneous, Every 12 hours scheduled, First dose (after last modification) on Sat01/14/20 at 2300, Indications: Deep Vein Thrombosis PreventionIndications:Deep Vein Thrombosis Prevention Given 01/17/2020 8:34 AM CDT 40 mg Left Upper Abdomen Given 01/16/2020 9:31 PM CDT 40 mg Le ft Lower Abdomen Given 01/16/2020 8:47 AM CDT 40 mg Ri ght Lower Abdomen famotidine (PEPCID) injection 20 mg 20 mg, intravenous, Administer over 2 Minutes, 2 times daily, First dose on Sat01/15/20 at 0900 Given 01/17/2020 8:33 AM CDT 20 mg Given 01/16/2020 9:31 PM CDT 20 mg Given 01/16/2020 8:46 AM CDT 20 mg famotidine (PEPCID) tablet 20 mg 20 mg, oral, 2 times daily, First dose on Sat01/17/20 at 2100, This medication, famotidine 20 mg BID, was changed from IV route to oral route per protocol. insulin glargine (LANTUS,BASAGLAR) pen injection 40 Units 40 Units, subcutaneous, 2 times daily, First dose on Sat01/14/20 at 2300, Do not mix with other insulins, Indications: Diabetes MellitusIndications:Diabetes Mellitus Given 01/15/2020 8:47 AM CDT 40 Units Left Upper Arm Given 01/14/2020 11:53 PM CDT 40 Units L eft Upper Abdomen insulin glargine (LANTUS,BASAGLAR) pen injection 40 Units 40 Units, subcutaneous, Nightly, First dose on Sat01/15/20 at 2145, Do not mix with other insulins Given 01/16/2020 9:37 PM CDT 40 Units Left Upper Arm Given 01/15/2020 9:19 PM CDT 40 Units Le ft Upper Abdomen insulin glargine (LANTUS,BASAGLAR) pen injection 45 Units 45 Units, subcutaneous, Every morning, First dose on Sat01/16/20 at 0900, Do not mix with other insulins Given 01/17/2020 8:36 AM CDT 45 Units Right Upper Arm Given 01/16/2020 8:49 AM CDT 45 Units Le ft Upper Arm insulin lispro (HumaLOG, ADMELOG) pen injection 1-4 Units 1-4 Units, subcutaneous, Nightly, First dose on Sat01/14/20 at 2300, Blood Sugar High Dose PM - PO patients 139 or less No insulin 140 - 175 1 unit 176 - 200 2 units 201 - 250 3 units 251 - 299 4 units Greater than 299 Call MD for hyperglycemia management instructions Do NOT hold for NPO status., Indications: Diabetes MellitusIndications:Diabetes Mellitus Given 01/16/2020 9:35 PM CDT 4 Units Left Upper Arm Given 01/15/2020 9:20 PM CDT 4 Units Le ft Upper Abdomen insulin lispro (HumaLOG, ADMELOG) pen injection 1-7 Units 1-7 Units, subcutaneous, 3 times daily with meals, First dose on Sat01/15/20 at 0800, Blood Sugar High Dose meal time - PO patients 139 or less No insulin 140 - 175 2 unit 176 - 200 3 unit 201 - 250 5 units 251 - 299 7 units Greater than 299 Call MD for hyperglycemia management instructions Do NOT hold for NPO status., Indications: Diabetes MellitusIndications:Diabetes Mellitus Given 01/17/2020 8:37 AM CDT 7 Units Right Upper Arm Given 01/16/2020 5:24 PM CDT 7 Units Le ft Upper Arm Given 01/16/2020 12:38 PM CDT 7 Units L eft Upper Arm insulin lispro (HumaLOG, ADMELOG) pen injection 10 Units 10 Units, subcutaneous, 3 times daily with meals, First dose on Sat01/15/20 at 0800, Administer pre-meal doses when pts food tray arrives in room. Do not administer pre-meal doses to NPO patients., Indications: type 2 diabetes mellitusIndications:type 2 diabetes mellitus Given 01/15/2020 12:29 PM CDT 10 Units Right Upper Arm Given 01/15/2020 8:47 AM CDT 10 Units Le ft Upper Arm insulin lispro (HumaLOG, ADMELOG) pen injection 10 Units 10 Units, subcutaneous, Once, On Sat01/15/20 at 2145, For 1 dose Given 01/15/2020 9:20 PM CDT 10 Units Left Upper Abdomen insulin lispro (HumaLOG, ADMELOG) pen injection 15 Units 15 Units, subcutaneous, 3 times daily with meals, First dose (after last modification) on Sat01/15/20 at 1800, Administer pre-meal doses when pts food tray arrives in room. Do not administer pre-meal doses to NPO patients., Indications: type 2 diabetes mellitusIndications:type 2 diabetes mellitus Given 01/17/2020 8:37 AM CDT 15 Units Right Upper Arm Given 01/16/2020 5:23 PM CDT 15 Units Ri ght Upper Arm Given 01/16/2020 12:37 PM CDT 15 Units L eft Upper Arm insulin lispro (HumaLOG, ADMELOG) pen injection 7 Units 7 Units, subcutaneous, Once, On Sat01/16/20 at 0730, For 1 dose Given 01/16/2020 8:49 AM CDT 7 Units Left Upper Arm insulin NPH (HumuLIN N, NovoLIN N) injection 10 Units 10 Units, subcutaneous, Daily, First dose (after last modification) on 01/16/20 at 0900, Hold if BG less than 110. Administer with steroids. Hold if steroids held or discontinued. Give 10 units of NPH insulin every 24 hours per insulin with steroid dosing protocol based on patient weight of 210.2 kg and steroid dose of Dexamethasone 6 mg ivp q 24 hrs . Given 01/17/2020 8:38 AM CDT 10 Units Right Upper Arm Given 01/16/2020 8:51 AM CDT 10 Units Ri ght Upper Arm insulin NPH (HumuLIN N, NovoLIN N) injection 25 Units 25 Units, subcutaneous, Daily, First dose on Sat01/15/20 at 1000, Hold if BG less than 110. Administer with steroids. Hold if steroids held or discontinued. Give 25 units of NPH insulin every 24 hours per insulin with steroid dosing protocol based on patient weight of 210.2 kg and steroid dose of Dexamethasone 6 mg ivp q 24 hrs . Given 01/15/2020 9:48 AM CDT 25 Units Left Upper Arm insulin regular (HumuLIN R, NovoLIN R) 10 Units in sodium chloride 0.9% 1 mL injection 10 Units, intravenous, Once, On Sat01/16/20 at 0330, For 1 dose Given 01/16/2020 3:27 AM CDT 10 Units lisinopriL (PRINIVIL,ZESTRIL) tablet 40 mg 40 mg, oral, Daily, First dose on Sat01/15/20 at 0900 Given 01/17/2020 8:34 AM CDT 40 mg Given 01/16/2020 8:46 AM CDT 40 mg Given 01/15/2020 8:45 AM CDT 40 mg LORazepam (ATIVAN) injection 0.5 mg 0.5 mg, intravenous, Once, On Dayana 01/14/20 at 1936, For 1 dose, For IV administration, dilute with equal volume of 0.9% sodium chloride. Do not exceed a rate of 2 mg/minute Given 01/14/2020 8:2 3 PM CDT 0.5 mg ondansetron (ZOFRAN) injection 4 mg 4 mg, intravenous, Administer over 2 Minutes, Once, On Sat01/14/20 at 1820, For 1 dose, Indications: Nausea, VomitingIndications:Nausea,Vomiting Given 01/14/2020 6:32 PM CDT 4 mg ondansetron (ZOFRAN) injection 4 mg 4 mg, intravenous, Administer over 2 Minutes, Every 6 hours PRN, nausea, vomiting, if not tolerating PO, Starting on Sat01/14/20 at 2209, Indications: Nausea and VomitingIndications:Nausea and Vomiting Given 01/17/2020 8:47 AM CDT 4 mg Given 01/15/2020 6:24 AM CDT 4 mg Given 01/15/2020 1:18 AM CDT 4 mg ondansetron ODT (ZOFRAN-ODT) disintegrating tablet 4 mg 4 mg, oral, Every 6 hours PRN, nausea, vomiting, Starting on Sat01/14/20 at 2209, Indications: Nausea and VomitingIndications:Nausea and Vomiting Given 01/16/2020 9:39 AM CDT 4 mg sodium chloride 0.9% bolus 1,000 mL 1,000 mL, intravenous, at 1,000 mL/hr, Administer over 1 Hours, Once, On Sat01/14/20 at 1820, For 1 dose New Bag 01/14/2020 6:32 PM CDT 1,000 mL 1000 mL/hr documented in this encounter Discontinued Medications Medication Sig Discontinue Reason Start Date End Da te DULoxetine DR (CYMBALTA) 30 mg capsule Therapy completed 2019 01/14/2020 povidone-iodine (BETADINE) 7.5 % solution Apply topically as needed for wound care Therapy completed 12/21/2019 01/14/2020 insulin regular U-500 (HumuLIN R U-500, Conc, Kwikpen) 500 unit/mL (3 mL) CONCENTRATED injection Inject 85 units three times daily Formulary change 12/21/2019 01/14/2020 ciprofloxacin (CIPRO) 250 mg tablet Stop Taking at Discharge 12/23/2019 01/17/2020 documented as of this encounter Historical Medications * This list may reflect changes made after this encounter. insulin regular U-500 (HumuLIN R U-500) 500 unit/mL CONCENTRATED injectionIndicatio ns:Diabetes Mellitus with Severe Insulin Resistance Inject 95 Units under the skin 3 (three) times a day 06/07/2021 added in this encounter Active and Recently Administered Medications Times are shown in CDT. Scheduled Medication Order 01/15/2020 01/16/2020 01/17/2020 atorvastatin (LIPITOR) tablet 20 mg 20 mg, oral, Daily, First dose on Sat01/14/20 at 2230 2117 (Given - Provider: Dixon Tripp, RN) 2130 (Given - Provider: Dixon Tripp, BRYANNA) azithromycin (ZITHROMAX) 500 mg in sodium chloride 0.9% 250 mL IVPB (CANCELED) 500 mg, intravenous, at 255 mL/hr, Administer over 60 Minutes, Every 24 hours scheduled, First dose on Sat01/15/20 at 0545, Indications: Pneumonia, Community Acquired 0615 (New Bag - Provider: Kaley Graves RN)0844 (Stopped - Provider: Kiara Jose, BRYANNA) 0846 (New Bag - Provider: Shelia Lam RN) carvediloL (COREG) tablet 25 mg 25 mg, oral, 2 times daily with meals (bkfst, dinner), First dose on Sat01/15/20 at 0800 0845 (Given - Provider: Kiara Jose RN)1748 (Given - Provider: Kiara Jose RN) 0846 (Given - Provider: Shelia Lam, BRYANNA)1724 (Given - Provider: Shelia Lam, BRYANNA) 0834 (Given - Provider: Shelia Lam RN) cefTRIAXone (ROCEPHIN) 2,000 mg/20 mL in sterile water (premix) 2,000 mg (CANCELED) 2,000 mg, intravenous, at 1,200 mL/hr, Administer over 1 Minutes, Every 24 hours scheduled, First dose on Sat01/15/20 at 0545, Indications: Pneumonia, Community Acquired 0616 (Given - Provider: Kaley Graves RN) 0847 (Given - Provider: Shelia Lam, BRYANNA) dexAMETHasone (DECADRON) 4 mg/mL injection 6 mg 6 mg, intravenous, Administer over 2 Minutes, Daily, First dose on Sat01/15/20 at 0900 0846 (Given - Provider: Kiara Jose RN) 0847 (Given - Provider: Shelia Lam RN) 0833 (Given - Provider: Shelia Lam RN) dexAMETHasone (DECADRON) injection solution 10 mg (COMPLETED) 10 mg, intravenous, Administer over 2 Minutes, Once, On Dayana 01/14/20 at 2103, For 1 dose 0049 (Given - Provider: Kaley Graves RN) DULoxetine DR (CYMBALTA) extended release capsule 60 mg 60 mg, oral, Daily, First dose on Sat01/15/20 at 0900, Capsule may be opened and contents mixed with applesauce or apple juice ONLY. Do not crush, chew, cut, dissolve, open or otherwise manipulate tablet/capsule., Indications: Anxiety with Depression 0845 (Given - Provider: Kiara Jose RN) 0846 (Given - Provider: Shelia Lam, BRYANNA) 0834 (Given - Provider: Shelia Lam RN) enoxaparin (LOVENOX) syringe 40 mg 40 mg, subcutaneous, Every 12 hours scheduled, First dose (after last modification) on Dayana 01/14/20 at 2300, Indications: Deep Vein Thrombosis Prevention 0846 (Given - Provider: Kiara Jose RN)2117 (Given - Provider: Dixon Tripp RN) 0847 (Given - Provider: Shelia Lam RN)2130 (Given - Provider: Dixon Tripp, BRYANNA) 0834 (Given - Provider: Shelia Lam RN) famotidine (PEPCID) injection 20 mg (CANCELED) 20 mg, intravenous, Administer over 2 Minutes, 2 times daily, First dose on Sat01/15/20 at 0900 0845 (Given - Provider: Kiara Jose RN)2117 (Given - Provider: Dixon Tripp RN)2123 (Not Given - Provider: Dixon Tripp RN - Reason: Other - Comment: already given) 0846 (Given - Provider: Shelia Lam RN)2130 (Given - Provider: Dixon Tripp, BRYANNA) 0833 (Given - Provider: Shelia Lam, BRYANNA) famotidine (PEPCID) tablet 20 mg 20 mg, oral, 2 times daily, First dose on Sat01/17/20 at 2100, This medication, famotidine 20 mg BID, was changed from IV route to oral route per protocol. insulin glargine (LANTUS,BASAGLAR) pen injection 40 Units (CANCELED) 40 Units, subcutaneous, 2 times daily, First dose on Sat01/14/20 at 2300, Do not mix with other insulins, Indications: Diabetes Mellitus 0847 (Given - Provider: Kiara Jose RN)2337 (Not Given - Provider: Dixon Tripp RN - Reason: Order Discontinued) insulin glargine (LANTUS,BASAGLAR) pen injection 40 Units 40 Units, subcutaneous, Nightly, First dose on 01/15/20 at 2145, Do not mix with other insulins 2118 (Given - Provider: Dixon Tripp RN) 2136 (Given - Provider: Dixon Tripp RN) insulin glargine (LANTUS,BASAGLAR) pen injection 45 Units 45 Units, subcutaneous, Every morning, First dose on 01/16/20 at 0900, Do not mix with other insulins 0849 (Given - Provider: Shelia Lam, BRYANNA) 0836 (Given - Provider: Shelia Lam, BRYANNA) insulin lispro (HumaLOG, ADMELOG) pen injection 1-4 Units 1-4 Units, subcutaneous, Nightly, First dose on Dayana 01/14/20 at 2300, Blood Sugar High Dose PM - PO patients 139 or less No insulin 140 - 175 1 unit 176 - 200 2 units 201 - 250 3 units 251 - 299 4 units Greater than 299 Call MD for hyperglycemia management instructions Do NOT hold for NPO status., Indications: Diabetes Mellitus 2119 (Given - Provider: Dixon Tripp RN) 2134 (Given - Provider: Dixon Tripp, BRYANNA) insulin lispro (HumaLOG, ADMELOG) pen injection 1-7 Units 1-7 Units, subcutaneous, 3 times daily with meals, First dose on Sat01/15/20 at 0800, Blood Sugar High Dose meal time - PO patients 139 or less No insulin 140 - 175 2 unit 176 - 200 3 unit 201 - 250 5 units 251 - 299 7 units Greater than 299 Call MD for hyperglycemia management instructions Do NOT hold for NPO status., Indications: Diabetes Mellitus 0850 (Given - Provider: Kiara Jose RN)1230 (Given - Provider: Kiara Jose RN)1748 (Given - Provider: Kiara Jose RN) 0850 (Given - Provider: Shelia Lam, BRYANNA)1238 (Given - Provider: Shelia Lma, BRYANNA)1724 (Given - Provider: Shelia Lam, BRYANNA) 0837 (Given - Provider: Shelia Lam, BRYANNA) insulin lispro (HumaLOG, ADMELOG) pen injection 10 Units (CANCELED) 10 Units, subcutaneous, 3 times daily with meals, First dose on Sat01/15/20 at 0800, Administer pre-meal doses when pts food tray arrives in room. Do not administer pre-meal doses to NPO patients., Indications: type 2 diabetes mellitus 0847 (Given - Provider: Kiara Jose RN)1229 (Given - Provider: Kiara Jose RN) insulin lispro (HumaLOG, ADMELOG) pen injection 10 Units (COMPLETED) 10 Units, subcutaneous, Once, On Sat01/15/20 at 2145, For 1 dose 2120 (Given - Provider: Dixon Tripp RN) insulin lispro (HumaLOG, ADMELOG) pen injection 15 Units 15 Units, subcutaneous, 3 times daily with meals, First dose (after last modification) on Sat01/15/20 at 1800, Administer pre-meal doses when pts food tray arrives in room. Do not administer pre-meal doses to NPO patients., Indications: type 2 diabetes mellitus 1747 (Given - Provider: Kiara Jose RN) 0850 (Given - Provider: Shelia Lam RN)1237 (Given - Provider: Shelia Lam RN)1723 (Given - Provider: Shelia Lam RN) 0837 (Given - Provider: Shelia Lam, BRYANNA) insulin lispro (HumaLOG, ADMELOG) pen injection 7 Units (COMPLETED) 7 Units, subcutaneous, Once, On 01/16/20 at 0730, For 1 dose 0849 (Given - Provider: Shelia Lam RN) insulin NPH (HumuLIN N, NovoLIN N) injection 10 Units 10 Units, subcutaneous, Daily, First dose (after last modification) on 01/16/20 at 0900, Hold if BG less than 110. Administer with steroids. Hold if steroids held or discontinued. Give 10 units of NPH insulin every 24 hours per insulin with steroid dosing protocol based on patient weight of 210.2 kg and steroid dose of Dexamethasone 6 mg ivp q 24 hrs . 0851 (Given - Provider: Shelia Lam RN) 0838 (Given - Provider: Shelia Lam RN) insulin NPH (HumuLIN N, NovoLIN N) injection 25 Units (CANCELED) 25 Units, subcutaneous, Daily, First dose on Sat01/15/20 at 1000, Hold if BG less than 110. Administer with steroids. Hold if steroids held or discontinued. Give 25 units of NPH insulin every 24 hours per insulin with steroid dosing protocol based on patient weight of 210.2 kg and steroid dose of Dexamethasone 6 mg ivp q 24 hrs . 0948 (Given - Provider: Kiara Jose RN) insulin regular (HumuLIN R, NovoLIN R) 10 Units in sodium chloride 0.9% 1 mL injection (COMPLETED)(Linked Group 1) 10 Units, intravenous, Once, On Sat01/16/20 at 0330, For 1 dose 0327 (Given - Provider: Dixon Tripp RN) lisinopriL (PRINIVIL,ZESTRIL) tablet 40 mg 40 mg, oral, Daily, First dose on Sat01/15/20 at 0900 0845 (Given - Provider: Kiara Jose RN) 0846 (Given - Provider: Shelia Lam, BRYANNA) 0834 (Given - Provider: Shelia Lam, BRYANNA) PRN Medication Order 01/15/2020 01/16/2020 01/17/2020 acetaminophen (TYLENOL) tablet 650 mg 650 mg, oral, Every 4 hours PRN, 1st line for pain, fever, Starting on Dayana 01/14/20 at 2209, Indications: Pain dextrose (D10W) 10% bolus 250 mL(Linked Group 2) 250 mL, intravenous, at 1,000 mL/hr, Administer over 15 Minutes, Every 15 min PRN, blood glucose less than 70 mg/dL and UNABLE to swallow/take PO glucose/juice., Starting on Dayana 01/14/20 at 2213, After treatment for hypoglycemia, recheck BG followed [...] less than 70 mg/dL, Starting on Dayana 01/14/20 at 2213, If patient is alert and able to [...] glucagon injection 1 mg 1 mg, intramuscular, Administer over 1 Minutes, Every 30 min PRN, low blood sugar, blood glucose less than 70 mg/dL AND no IV access AND unable to take PO glucose/jiuce., Starting on Dayana 01/14/20 at 2213, After Glucagon is administered, position patient on [...] MD for each episode of hypoglycemia., Indications: Hypoglycemia ondansetron (ZOFRAN) injection 4 mg(Linked Group 3) 4 mg, intravenous, Administer over 2 Minutes, Every 6 hours PRN, nausea, vomiting, if not tolerating PO, Starting on Dayana 01/14/20 at 2209, Indications: Nausea and Vomiting 0118 (Given - Provider: Kaley Graves RN)0624 (Given - Provider: Kaley Graves RN) 0939 (See Alternative - Provider: Shelia Lam RN) 0847 (Given - Provider: Shelia Lam RN) ondansetron ODT (ZOFRAN-ODT) disintegrating tablet 4 mg(Linked Group 3) 4 mg, oral, Every 6 hours PRN, nausea, vomiting, Starting on Dayana 01/14/20 at 2209, Indications: Nausea and Vomiting 0118 (See Alternative - Provider: Kaley Graves RN)0624 (See Alternative - Provider: Kaley Graves RN) 0939 (Given - Provider: Shelia Lam RN) 8232 (See Alternative - Provider: Shelia Lam RN) Linked Groups Order Group 1: insulin regular (HumuLIN R, NovoLIN R) 10 Units in sodium chloride 0.9% 1 mL injection (COMPLETED)Jump to med 10 Units, intravenous, Once, On 01/16/20 at 0330, For 1 dose And POCT glucose (CANCELED) Once (Routine), On 01/16/20 at 0251, For 1 occurrence, 3 hours after administering IV push Insulin Regular. Communicate result with MD. Group 2: dextrose gel in packet 15 gJump to med 15 g, oral, Every 15 min PRN, low blood sugar, blood glucose less than 70 mg/dL, Starting on Dayana 01/14/20 at 2213, If patient is alert and able to [...] to swallow/take PO glucose/juice., Starting on Dayana 01/14/20 at 2213, After treatment for hypoglycemia, recheck BG followed [...] 6 hours PRN, nausea, vomiting, Starting on Dayana 01/14/20 at 2209, Indications: Nausea and Vomiting Or ondansetron (ZOFRAN) injection 4 mgJump to med 4 mg, intravenous, Administer over 2 Minutes, Every 6 hours PRN, nausea, vomiting, if not tolerating PO, Starting on Dayana 01/14/20 at 2209, Indications: Nausea and Vomiting documented in this encounter Orders Medications Ordered That Néstor ht Not Have Been Administered Count Last Ordered Date First Ordered Date famotidine (PEPCID) tablet 20 mg 1 01/17/20 20 insulin regular bolus from bag 10 Units 1 0 01/16/2020 acetaminophen (TYLENOL) tablet 650 mg 1 02/2020 dextrose (D10W) 10% bolus 250 mL 1 01/14/20 20 dextrose gel in packet 15 g 1 01/14/2020 enoxaparin (LOVENOX) syringe 40 mg 1 2019 glucagon injection 1 mg 1 01/14/2020 Lab Orders Without Results Count Last Ordered D ate First Ordered Date POCT GLUCOSE DEVICE 8 01/17/2020 01/15/20 20 Diet Count Last Ordered Date First Orde red Date ADULT DISCHARGE DIET 1 01/17/2020 Nursing Count Last Ordered Date First Orde red Date DISCHARGE ACTIVITY 1 01/17/2020 DISCHARGE CALL PROVIDER 2 01/17/2020 DISCHARGE INSTRUCTIONS 1 01/17/2020 FOLLOW UP WITH ESTABLISHED PROVIDER 1 01/16 PULSE OXIMETRY - RN 1 01/14/2020 WEIGH PATIENT 1 01/14/2020 Isolation Count Last Ordered Date First Orde red Date INITIATE CONTACT ISOLATION 1 01/14/2020 INITIATE DROPLET ISOLATION 1 01/14/2020 ADT Patient Update Count Last Ordered Date Firs t Ordered Date ED IP DECISION TO ADMIT 1 01/14/2020 documented in this encounter Additional Health Concerns Infection Onset Date Last Indicated Resolved Time COVID: Suspected 01/14/2020 01/14/2020 01/14/2020 6:21 PM CDT COVID19 01/15/2020 01/15/2020 01/31/2020 3:06 AM CDT documented as of this encounter Care Teams Health Underwriter Relationship Specialty Start Date End Date Jann Burrows MD [address] [place] [address] PCP - General Hematology 03/13/19 10/28/21 Mariana Self MD [address] [place] [address] Referring Physician Internal Medicine 01/17/20 documented as of this encounter
--- OUTSIDE RECORDS SUMMARY | 2024-05-10 17:14 | XMS_ITS | Encounter Summary ---
Author Organization [facility] Address [address] [place] [address] Phone Care Team Providers Care Bond Analyst Name Role Phone Jann Burrows MD Primary Care Provider [phone] Mariana Monique MD Unavailable [phone] Reason for Visit * Reason Onset Date Comments Med Refill 02/10/2020 Encounter Details Date Type Department Care Team (Late st Contact Info) Description 02/10/2020 Telephone [facility] Cardiology [facility] Advanced Medicine [address] [place] [address] [place] [address] Annika Sutherland Med Refill Social History Tobacco Use Types Packs/Day Years Used Date Smoking Tobacco: Never Smokeless Tobacco: Former Chew Quit: 01/13/2019 Alcohol Use Standard Drinks/Week Comments Not Currently 0 (1 standard drink = 0.6 oz pur e alcohol) Sex and Gender Information Value Date Recorded Sex Assigned at Not on file 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 Gender Identity Male 12/18/2017 12:38 PM CDT Sexual Orientation Not on file 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 documented in this encounter Plan of Treatment Not on file documented as of this encounter Visit Diagnoses Not on filedocumented in this encounter Discontinued Medications Medication Sig Discontinue Reason Start Date End Da te carvedilol (COREG) 25 mg tablet Take 1 tablet (25 mg total) by mouth 2 (two) times a day with meals Reorder 01/27/2019 02/10/2020 documented as of this encounter Care Teams Bond Analyst Relationship Specialty Start Date End Date Jann Burrows MD [address] [place] [address] PCP - General Hematology 03/13/19 10/28/21 Mariana Monique MD [address] [place] [address] Referring Physician Internal Medicine 01/17/20 documented as of this encounter
--- OUTSIDE RECORDS SUMMARY | 2024-05-10 17:14 | XMS_ITS | Encounter Summary ---
Author Organization [facility] Healthcare Address [address] [place] [address] Care Team Providers Care Advertising Coordinator Name Role Phone Jann Burrows MD Primary Care Provider [phone] Mariana Monique MD Unavailable [phone] Encounter Details Date Type Department Care Team (Late st Contact Info) Description 06/07/[address] 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 Gender Identity Male 12/18/2017 12:38 PM CDT Sexual Orientation Not on file 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 Not on file Not on file documented as of this encounter Ordered Prescriptions Prescription Sig Dispense Quantity Refills Last Filled Start Date End Date pen needle, diabetic (BD Ultra-Fine Ibeth Pen Needle) 32 gauge x 5/32 needle USE DIRECTED 3 TIMES A DAY 100 each 3 06/07/2020 2 documented in this encounter Progress Notes * Jann Burrows MD - 06/07/2020 3:56 PM CST Refilled Pen needles OR CLERK documented in this encounter Plan of Treatment Not on file documented as of this encounter Visit Diagnoses Not on filedocumented in this encounter Discontinued Medications Medication Sig Discontinue Reason Start Date End Da te pen needle, diabetic (BD Ultra-Fine Ibeth Pen Needle) 32 gauge x 5/32 needle USE DIRECTED 3 TIMES A DAY Reorder 06/01/2020 06/07/2020 documented as of this encounter Care Teams Advertising Coordinator Relationship Specialty Start Date End Date Jann Burrows MD [address] [place] [address] PCP - General Hematology 03/13/19 10/28/21 Mariana Monique MD [address] [place] [address] Referring Physician Internal Medicine 01/17/20 documented as of this encounter
--- OUTSIDE RECORDS SUMMARY | 2024-05-10 17:15 | XMS_ITS | Encounter Summary ---
Author Organization [facility] Healthcare Address [address] [place] [address] Care Team Providers Care Speech Language Pathologist Assistant Name Role Phone Jann Burrows MD Primary Care Provider [phone] Encounter Details Date Type Department Care Team (Late st Contact Info) Description 08/03/2019 Patient Self-T[address] [facility] HealthCare/ Physicians [address] [place] [address] Mychart, Generic Provider [address] [place] [address] Social History Tobacco Use Types Packs/Day Years Used Date Smoking Tobacco: Never Smokeless Tobacco: Never Alcohol Use Standard Drinks/Week Comments Yes 24 (1 standard drink = 0.6 oz pu re alcohol) CAGE negative. Case per week. 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
--- OUTSIDE RECORDS SUMMARY | 2024-05-10 17:15 | XMS_ITS | Encounter Summary ---
Author Organization [facility] Healthcare Address [address] [place] [address] Care Team Providers Care Assignment Desk Assistant Name Role Phone Jann Burrows MD Primary Care Provider [phone] Encounter Details Date Type Department Care Team (Late st Contact Info) Description 08/10/2019 E-Visit [facility] HealthCare/ Physicians [address] [place] [address] Adia Robbins MD [address] [place] [address] [address] [place] [address] Your Medications Social History Tobacco Use Types Packs/Day Years Used Date Smoking Tobacco: Never Smokeless Tobacco: Never Alcohol Use Standard Drinks/Week Comments Yes 24 (1 standard drink = 0.6 oz pu re alcohol) CAGE negative. Case per week. 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 The patient-submitted questionnaire was assessed for pertinent information and the patient's problem list, medication list, and allergies were reviewed as part of the e-visit. The chart was updated to identify any changes in these areas. Assessment: Diagnosis Plan 1. Viral upper respiratory tract infection with cough Plan: The patient was given information regarding any new medication(s) prescribed, if applicable, as well as any [id number] remedies. He was given instructions regarding follow up and timeframe if symptoms worsen or don???t improve. These instructions were included in the Tittat message reply to the patient. Patient Instructions were included in the message reply to patient. New Medications Ordered This Visit ??? benzonatate (TESSALON) 200 mg capsule Sig: Take 1 capsule (200 mg total) by mouth 3 (three) times a day as needed for cough for up to 7 days Dispense: 20 capsule Refill: 0 Adia Robbins MD documented in this encounter Plan of Treatment Not on file documented as of this encounter Visit Diagnoses Diagnosis Viral upper respiratory tract infection with cough- Primary documented in this encounter Care Teams Assignment Desk Assistant Relationship Specialty Start Date End Date Jann Burrows MD [address] [facility] [address] [place] [address] PCP - General Hematology 03/13/19 10/28/21 documented as of this encounter
--- OUTSIDE RECORDS SUMMARY | 2024-05-10 17:15 | XMS_ITS | Encounter Summary ---
Author Organization [facility] Healthcare Address [address] [place] [address] Care Team Providers Care Group Cio Name Role Phone Jann Burrows MD Primary Care Provider [phone] Encounter Details Date Type Department Care Team (Late st Contact Info) Description 12/01/2019 Telephone [facility] Podiatry [address] [facility] 4th Floor [address] [place] [address] Padma Raines CMA Social History Tobacco Use Types Packs/Day Years Used Date Smoking Tobacco: Never Smokeless Tobacco: Never Alcohol Use Standard Drinks/Week Comments Yes 24 (1 standard drink = 0.6 oz pu re alcohol) CAGE negative. Case per week. 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 Velasquez will be on vacation 03/03. documented in this encounter Plan of Treatment Not on file documented as of this encounter Visit Diagnoses Not on filedocumented in this encounter Care Teams Group Cio Relationship Specialty Start Date End Date Jann Burrows MD [address] [place] [address] PCP - General Hematology 03/13/19 10/28/21 documented as of this encounter
--- OUTSIDE RECORDS SUMMARY | 2024-05-10 17:15 | XMS_ITS | Encounter Summary ---
Author Organization [facility] Healthcare Address [address] [place] [address] Care Team Providers Care Capital Project Engineer Name Role Phone Jann Burrows MD Primary Care Provider [phone] Reason for Visit * Reason Onset Date Comments Follow-up 08/11/2019 Encounter Details Date Type Department Care Team (Late st Contact Info) Description 08/11/2019 Telephone [facility] Primary Care Medicine Clinic [address] [facility] [address] [place], [place] [id number] Jann Burrows MD [address] [facility] [address] [place], [place] [id number] Follow-up Social History Tobacco Use Types Packs/Day Years Used Date Smoking Tobacco: Never Smokeless Tobacco: Never Alcohol Use Standard Drinks/Week Comments Yes 24 (1 standard drink = 0.6 oz pu re alcohol) CAGE negative. Case per week. 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 Please see phone note for more details. * Telephone Encounter - Jann Burrows MD - 08/11/2019 12:26 PM CDT Thank you for this message. I am on a inpatient office, please route this to the Admin office or Ziggy. * Telephone Encounter - Adrianna Aragon - 08/11/2019 9:[address] Burrows, Patient called wanting to speak with you. States he is having labored breathing and having trouble taking a deep breath. Patient request a call back. Patient contact is [phone]. Adrianna [phone] documented in this encounter Plan of Treatment Not on file documented as of this encounter Visit Diagnoses Not on filedocumented in this encounter Additional Health Concerns Infection Onset Date Last Indicated Resolved Time COVID: Suspected 08/11/2019 08/11/2019 08/25/2019 3:06 AM CDT documented as of this encounter Care Teams Capital Project Engineer Relationship Specialty Start Date End Date Jann Burrows MD [address] [facility] [address] [place] [address] PCP - General Hematology 03/13/19 10/28/21 documented as of this encounter
--- OUTSIDE RECORDS SUMMARY | 2024-05-10 17:15 | XMS_ITS | Encounter Summary ---
Author Organization [facility] Address [address] [place] [address] Phone Care Team Providers Care Manager Regional Sales Name Role Phone Jann Burrows MD Primary Care Provider [phone] Encounter Details Date Type Department Care Team (Late st Contact Info) Description 11/18/2019 Telephone [facility] Endocrinology Metabolism and Lipid [address] [facility] 5th [place] [address] [place] [address] Beverley Javed CNMT Social History Tobacco Use Types Packs/Day Years Used Date Smoking Tobacco: Never Smokeless Tobacco: Never Alcohol Use Standard Drinks/Week Comments Yes 24 (1 standard drink = 0.6 oz pu re alcohol) CAGE negative. Case per week. 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 documented in this encounter Plan of Treatment Not on file documented as of this encounter Visit Diagnoses Not on filedocumented in this encounter Care Teams Manager Regional Sales Relationship Specialty Start Date End Date Jann Burrows MD [address] [place] [address] PCP - General Hematology 03/13/19 10/28/21 documented as of this encounter
--- OUTSIDE RECORDS SUMMARY | 2024-05-10 17:15 | XMS_ITS | Encounter Summary ---
Author Organization [facility] Healthcare Address [address] [place] [address] Care Team Providers Care Quality Project Manager Name Role Phone Jann Burrows MD Primary Care Provider [phone] Reason for Visit * Reason Onset Date Comments medication reconciliation for 12/24 Post Hospital Visit 12/24/2019 Encounter Details Date Type Department Care Team (Late st Contact Info) Description 12/24/2019 Telephone [facility] Primary Care Medicine Clinic [address] [facility] [address] [place], [place] [id number] Samara Silva, [facility] medication reconciliation for 12/24 Post Hospital Visit Social History Tobacco Use Types Packs/Day Years Used Date Smoking Tobacco: Never Smokeless Tobacco: Current Alcohol Use Standard Drinks/Week Comments Yes 24 (1 standard drink = 0.6 oz pu re alcohol) CAGE negative. Case per week. 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 Date of discharge: 8/17 Date of PHV: 8/21, with Dr. Rhoades Patient did not answer. Left voicemail for patient at [phone] with information about upcoming appointment and to return call to [facility] pharmacists at [phone] to discuss medications. Timestamp: 12/24/19, 10:46 AM Samara Guidry, PharmD, MHA, BCPS Clinical Pcb Designer, Visor Installer [facility]/Primary Care Medicine Clinic documented in this encounter Plan of Treatment Not on file documented as of this encounter Visit Diagnoses Not on filedocumented in this encounter Care Teams Quality Project Manager Relationship Specialty Start Date End Date Jann Burrows MD [address] [facility] [address] [place] [address] PCP - General Hematology 03/13/19 10/28/21 documented as of this encounter
--- OUTSIDE RECORDS SUMMARY | 2024-05-10 17:15 | XMS_ITS | Encounter Summary ---
Author Organization [facility] Address [address] [place] [address] Phone Care Team Providers Care Employment Director Name Role Phone Jann Burrows MD Primary Care Provider [phone] Mariana Monique MD Unavailable [phone] Keila Jimenez MD Primary Care Provider Encounter Details Date Type Department Care Team (Late st Contact Info) Description 09/24/2019 Telephone [facility] Endocrinology Metabolism and Lipid [address] [facility] 5th [place] [address] [place] [address] Noemí Najera LPN Social History Tobacco Use Types Packs/Day Years Used Date Smoking Tobacco: Never Smokeless Tobacco: Never Alcohol Use Standard Drinks/Week Comments Yes 24 (1 standard drink = 0.6 oz pu re alcohol) CAGE negative. Case per week. Social Connection and Isolat ion Panel [NHANES] Answer Date Recorded In a typical week, how many times do you talk on the phone with family, friends, or neighbors? More than three times a week 11/26/2021 How often do you get togethe r with friends or relatives? More than three times a week 11/26/2021 How often do you attend chur ch or synagogue services? 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 400 each 3 09/24/2019 01/16/2021 documented in this encounter Miscellaneous Notes * Telephone Encounter - Noemí Najera LPN - 10/23/2022 3:40 PM CDT ERROR documented in this encounter Plan of Treatment Not on file documented as of this encounter Visit Diagnoses Diagnosis Diabetic ketoacidosis without coma associated with other specified diabetes mellitus (HCC) documented in this encounter Discontinued Medications Medication Sig Discontinue Reason Start Date End Da te blood glucose diagnostic (ONETOUCH ULTRA TEST) stripIndications:Diabetic ketoacidosis without coma associated with other specified diabetes mellitus (HCC) Test daily before all meals/snacks and once before bedtime. Reorder 03/19/2019 09/24/2019 documented as of this encounter Additional Health Concerns Infection Onset Date Last Indicated Resolved Time COVID: Suspected 01/14/2020 01/14/2020 01/14/2020 6:21 PM CDT COVID19 01/15/2020 01/15/2020 01/31/2020 3:06 AM CDT COVID: Recovered Comment:Added based on recent COVID infection. 01/31/2020 05/19/2020 05/30/2020 3:[address] documented as of this encounter Care Teams Employment Director Relationship Specialty Start Date End Date Jann Burrows MD [address] [place] [address] PCP - General Hematology 03/13/19 10/28/21 Keila Jimenez MD [address] [place] [address] PCP - General 10/29/21 Mariana Monique MD [address] [place] [address] Referring Physician Internal Medicine 01/17/20 documented as of this encounter
--- OUTSIDE RECORDS SUMMARY | 2024-05-10 17:15 | XMS_ITS | Encounter Summary ---
Author Organization [facility] Address [address] [place] [address] Phone Care Team Providers Care Composite Assembler Name Role Phone Jann Burrows MD Primary Care Provider [phone] Encounter Details Date Type Department Care Team (Late st Contact Info) Description 12/18/2019 Telephone [facility] Endocrinology Metabolism and Lipid [address] [facility] 5th [place] [address] [place] [address] Che Duff LPN Social History Tobacco Use Types Packs/Day Years Used Date Smoking Tobacco: Never Smokeless Tobacco: Current Alcohol Use Standard Drinks/Week Comments Yes 24 (1 standard drink = 0.6 oz pu re alcohol) CAGE negative. Case per week. 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 Styles. He is aware of situation * Telephone Encounter - Che Duff LPN - 12/18/2019 12:24 PM CDT Patient called. He said that his sugar was in the 500s yesterday. Went to urgent care and it was back down in the 300s. He said that he took a reading today and his meter would only register HIGH. Hehas symptoms of dry mouth and polyuria. I asked if he has anyone to take him to the ED. He stated no. Advised patient to call 911 as it would be too dangerous for him to drive himself. documented in this encounter Plan of Treatment Not on file documented as of this encounter Visit Diagnoses Not on filedocumented in this encounter Care Teams Composite Assembler Relationship Specialty Start Date End Date Jann Burrows MD [address] [facility] [address] [place] [address] PCP - General Hematology 03/13/19 10/28/21 documented as of this encounter
--- OUTSIDE RECORDS SUMMARY | 2024-05-10 17:15 | XMS_ITS | Encounter Summary ---
Author Organization [facility] Healthcare Address [address] [place] [address] Care Team Providers Care Systems Support Specialist Name Role Phone Jann Burrows MD Primary Care Provider [phone] Encounter Details Date Type Department Care Team (Late st Contact Info) Description 08/11/2019 Telephone [facility] Primary Care Medicine Clinic [address] [facility] [address] [place], [place] [id number] Karla Rossi MD [address] [facility] [address] [place] [address] Social History Tobacco Use Types Packs/Day Years Used Date Smoking Tobacco: Never Smokeless Tobacco: Never Alcohol Use Standard Drinks/Week Comments Yes 24 (1 standard drink = 0.6 oz pu re alcohol) CAGE negative. Case per week. 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 Jose Campoverde [phone] * Telephone Encounter - Karla Rossi MD - 08/11/2019 1:59 PM CDT Talked to patient regarding SOB. He reports that he has had a sensation of inability to take deep breaths for the last 2-3 days. He reports these symptoms have been relatively stable without worsening and denies lightheadedness or dizziness. He had one episode of emesis this AM but has been able totolerate liquids since then. He denies fevers/chills, body aches, loss of taste, loss of smell, diarrhea, or sick contacts. 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 He is agreeable to this. I will call him back in 30mins to follow-up on hotline decision and go from there. documented in this encounter Plan of Treatment Not on file documented as of this encounter Visit Diagnoses Not on filedocumented in this encounter Care Teams Systems Support Specialist Relationship Specialty Start Date End Date Jann Burrows MD [address] [place] [address] PCP - General Hematology 03/13/19 10/28/21 documented as of this encounter
--- OUTSIDE RECORDS SUMMARY | 2024-05-10 17:15 | XMS_ITS | Encounter Summary ---
Author Organization [facility], [facility] Address [address] [place] [address] Phone Care Team Providers Care Teller Vault Name Role Phone Jann Burrows MD Primary Care Provider [phone] Encounter Details Date Type Department Care Team (Latest Contact Info) Description 11/19/2019 3:40 PM CDT Office Visit [facility] Endocrinology Metabolism and Lipid [address] [facility] Advanced Medicine 5th [place] [address] [place] [address] Peter Styles Jr., MD [address] [place] [address] Type 2 diabetes mellitus with ketoacidosis without coma, without long-term current use of insulin (CMS/HCC) (Primary Dx); Diabetic ketoacidosis without coma associated with other specified diabetes mellitus (CMS/HCC); Acanthosis nigricans; Metabolic syndrome Social History Tobacco Use Types Packs/Day Years Used Date Smoking Tobacco: Never Smokeless Tobacco: Never Alcohol Use Standard Drinks/Week Comments Yes 24 (1 standard drink = 0.6 oz pu re alcohol) CAGE negative. Case per week. 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 Get eye appointment 2. Podiatry appointment 3. Continue 75 units U500 TID and 10 units Lispro TID documented in this encounter Progress Notes * Peter Styles MD - 11/19/2019 3:40 PM CDT Chief Complaint: Follow up for new-onset diabetes with diabetic ketoacidosis. History of Present Illness: The patient is taking his glucoses once daily with values of 90-130. Hetakes 75 units U500 insulin TID and does not take lispro with meals. He has not had an eye appointment. He has had a left ingrown toenail and has an appointment to get it treated. He walks 5 miles daily in his work and is trying on diet although his weight is up by 4 kg, probably due to better control. Previous History: The patient is 23 y.o.??male??with [...] acanthosis nigricans on hands, elbows and axillae. Physical Exam: Constitutional: Vital signs were reviewed [...] (<30) 03-19-19: A1c 7.9%, glucose (postprandial) 120. 1: ALT 69, AST 41, bili 0.3, albumin 4.7, sodium 141, potassium 3.9, creatinine 0.9, glucose 94. 7-: A1c 6.8% Assessment and Plan: The patient has severe insulin resistance and type 2 diabetes with recent ketoacidosis. Antibodies to insulin and to islet cells are negative and the patient has severe acanthosis nigricans suggesting high insulin levels with a defect of insulin action in the insulin receptor pathway. He is doing very well on treatment with high dose insulin with U500 75 units TID and no lispro withmeals. We will continue this and he will get an eye appointment and we will order a urinary microalbumin/creatinine today. He has an ALT slightly elevated at 69, suggestive of fatty liver. He has an appointment with podiatry. RTC 6 months. documented in this encounter Plan of Treatment Not on file documented as of this encounter Procedures Procedure Name Priority Date/Time Associated Diagnosis Comments ALBUMIN CREATININE RATIO, URINE Routine 11/19/2019 5:59 PM CDT POCT HEMOGLOBIN A1C Routine 11/19/2019 4 :15 PM CDT Diabetic ketoacidosis without coma associated with other specified diabetes mellitus (CMS/HCC) POCT GLUCOSE Routine 11/19/2019 4:12 PM CDT Type 2 diabetes mellitus with ketoacidosis without coma, without long-term current use of insulin (CMS/[facility]) documented in this encounter Results * (ABNORMAL) Albumin Creatinine Ratio, Urine (11/19/2019 5:59 PM CDT) Albumin Ur 216.0 mg/L [facility] Comment: Interpretive Data No reference range established. Current interpretive data was last revised 2018. Creatinine Ur 326.6 mg/dL [facility] Comment: Interpretive Data No reference range established. Current interpretive data was last revised 2018. Albumin Creatinine Ratio, Ur 66(H) 1 - 29 mg/g [facility] Urine 11/19/2019 5:59 PM CDT 11/19/2019 10:14 PM CDT us Peter Styels Jr., MD LAB URINE ORDERABLES Final Result [facility] [place] [address] * POCT hemoglobin A1c (11/19/2019 4:15 PM CDT) Hemoglobin A1C, POC 6.8 Blood specimen (specimen) 11/19/2019 4:15 PM CDT Peter Styles Jr., MD POINT OF CARE TEST OR DERABLES Final Result * POCT glucose (11/19/2019 4:12 PM CDT) Glucose Blood, POC 154 mg/dL Blood specimen (specimen) 11/19/2019 4:12 PM CDT Peter Styles Jr., MD POINT OF CARE TEST OR DERABLES Final Result documented in this encounter Visit Diagnoses Diagnosis Type 2 diabetes mellitus with ketoacidosis without coma, without long-term current use of insulin (HCC)- Primary Diabetic ketoacidosis without coma associated with other specified diabetes mellitus (HCC) Acanthosis nigricans Acquired acanthosis nigricans Metabolic syndrome Dysmetabolic Syndrome X documented in this encounter Care Teams Teller Vault Relationship Specialty Start Date End Date Jann Burrows MD [id number] [place] [address] PCP - General Hematology 03/13/19 10/28/21 documented as of this encounter
--- OUTSIDE RECORDS SUMMARY | 2024-05-10 17:15 | XMS_ITS | Encounter Summary ---
Author Organization [facility] Healthcare Address [address] [place] [address] Care Team Providers Care Concrete Batching Plant Operator Name Role Phone Jann Burrows MD Primary Care Provider [phone] Encounter Details Date Type Department Care Team (Late st Contact Info) Description 08/11/2019 Patient Self-Triage [facility] HealthCare/[facility] [address] [place] [address] Mycphilt, Generic Provider [address] [place] [address] Social History Tobacco Use Types Packs/Day Years Used Date Smoking Tobacco: Never Smokeless Tobacco: Never Alcohol Use Standard Drinks/Week Comments Yes 24 (1 standard drink = 0.6 oz pu re alcohol) CAGE negative. Case per week. 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
--- OUTSIDE RECORDS SUMMARY | 2024-05-10 17:15 | XMS_ITS | Encounter Summary ---
Author Organization [facility] Address [address] [place] [address] Phone Care Team Providers Care Building Tech Name Role Phone Jann Burrows MD Primary Care Provider [phone] Encounter Details Date Type Department Care Team (Late st Contact Info) Description 09/23/2019 Telephone [facility] Endocrinology Metabolism and Lipid [address] [facility] 5th [place] [address] [place] [address] Jeimy White Social History Tobacco Use Types Packs/Day Years Used Date Smoking Tobacco: Never Smokeless Tobacco: Never Alcohol Use Standard Drinks/Week Comments Yes 24 (1 standard drink = 0.6 oz pu re alcohol) CAGE negative. Case per week. 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
--- OUTSIDE RECORDS SUMMARY | 2024-05-10 17:15 | XMS_ITS | Encounter Summary ---
Author Organization [facility] Healthcare Address [address] [place] [address] Care Team Providers Care Marine Gear Keeper Name Role Phone Jann Burrows MD Primary Care Provider [phone] Encounter Details Date Type Department Care Team (Late st Contact Info) Description 08/08/2019 Patient Self-Triage [facility] HealthCare/ Physicians [address] [place] [address] Mychart, Generic Provider [address] [place] [address] Social History Tobacco Use Types Packs/Day Years Used Date Smoking Tobacco: Never Smokeless Tobacco: Never Alcohol Use Standard Drinks/Week Comments Yes 24 (1 standard drink = 0.6 oz pu re alcohol) CAGE negative. Case per week. 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
--- OUTSIDE RECORDS SUMMARY | 2024-05-10 17:15 | XMS_ITS | Encounter Summary ---
Author Organization [facility] Healthcare Address [address] [place] [address] Care Team Providers Care Chopped Strand Operator Name Role Phone Jann Burrows MD Primary Care Provider [phone] Encounter Details Date Type Department Care Team (Late st Contact Info) Description 08/11/2019 Orders Only [facility] Health[facility] [address] [place] [address] [place] [address] [place] [address] Exposure to SARS-associated coronavirus (Primary Dx) Social History Tobacco Use Types Packs/Day Years Used Date Smoking Tobacco: Never Smokeless Tobacco: Never Alcohol Use Standard Drinks/Week Comments Yes 24 (1 standard drink = 0.6 oz pu re alcohol) CAGE negative. Case per week. 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 Order placed. Order and label printed for Location: [facility] documented in this encounter Plan of Treatment Not on file documented as of this encounter Visit Diagnoses Diagnosis Exposure to SARS-associated coronavirus- Primary documented in this encounter Orders Lab Orders Without Results Count Last Ordered D ate First Ordered Date COVID-19 CORONAVIRUS RNA 1 08/11/2019 documented in this encounter Additional Health Concerns Infection Onset Date Last Indicated Resolved Time COVID: Suspected 08/11/2019 08/11/2019 08/25/2019 3:06 AM CDT documented as of this encounter Care Teams Chopped Strand Operator Relationship Specialty Start Date End Date Jann Burrows MD [address] [facility] [address] [place] [address] PCP - General Hematology 03/13/19 10/28/21 documented as of this encounter
--- OUTSIDE RECORDS SUMMARY | 2024-05-10 17:15 | XMS_ITS | Encounter Summary ---
Author Organization [facility] Address [address] [place] [address] Phone Care Team Providers Care Protection Specialist Name Role Phone Jann Burrows MD Primary Care Provider [phone] Reason for Visit * Reason Onset Date Comments Telehealth 09/23/2019 Encounter Details Date Type Department Care Team (Late st Contact Info) Description 09/23/2019 Telephone [facility] Endocrinology Metabolism and Lipid [address] [facility] 5th [place] [address] [place] [address] Moira Kelly MA Telehealth Social History Tobacco Use Types Packs/Day Years Used Date Smoking Tobacco: Never Smokeless Tobacco: Never Alcohol Use Standard Drinks/Week Comments Yes 24 (1 standard drink = 0.6 oz pu re alcohol) CAGE negative. Case per week. 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 Patient needs offered Telehealth Appointment with provider. documented in this encounter Plan of Treatment Not on file documented as of this encounter Visit Diagnoses Not on filedocumented in this encounter Care Teams Protection Specialist Relationship Specialty Start Date End Date Jann Burrows MD [address] [place] [address] PCP - General Hematology 03/13/19 10/28/21 documented as of this encounter
--- OUTSIDE RECORDS SUMMARY | 2024-05-10 17:15 | XMS_ITS | Encounter Summary ---
Author Organization [facility] Healthcare Address [address] [place] [address] Care Team Providers Care Pelt Shearer Name Role Phone Jann Burrows MD Primary Care Provider [phone] Encounter Details Date Type Department Care Team (Late st Contact Info) Description 11/02/2019 Orders Only [facility] Primary Care Medicine Clinic [address] [facility] [address] [place] [address] Jann Burrows MD [address] [facility] [address] [place], [place] [id number] Diabetic ketoacidosis without coma associated with other specified diabetes mellitus (CMS/HCC) (Primary Dx) Social History Tobacco Use Types Packs/Day Years Used Date Smoking Tobacco: Never Smokeless Tobacco: Never Alcohol Use Standard Drinks/Week Comments Yes 24 (1 standard drink = 0.6 oz pu re alcohol) CAGE negative. Case per week. 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
--- OUTSIDE RECORDS SUMMARY | 2024-05-10 17:15 | XMS_ITS | Encounter Summary ---
Author Organization [facility] Healthcare Address [address] [place] [address] Care Team Providers Care Roadway Technician Name Role Phone Jann Burrows MD Primary Care Provider [phone] Encounter Details Date Type Department Care Team (Late st Contact Info) Description 08/10/2019 Patient Self-Triage [facility] HealthCare/ Physicians [address] [place] [address] Mychart, Generic Provider [address] [place] [address] Social History Tobacco Use Types Packs/Day Years Used Date Smoking Tobacco: Never Smokeless Tobacco: Never Alcohol Use Standard Drinks/Week Comments Yes 24 (1 standard drink = 0.6 oz pu re alcohol) CAGE negative. Case per week. 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
--- OUTSIDE RECORDS SUMMARY | 2024-05-10 17:15 | XMS_ITS | Encounter Summary ---
Author Organization [facility] Healthcare Address [address] [place] [address] Care Team Providers Care Intern Retail Name Role Phone Jann Burrows MD Primary Care Provider [phone] Encounter Details Date Type Department Care Team (Late st Contact Info) Description 08/11/2019 Telephone [facility] Primary Care Medicine Clinic [address] [facility] [address] [place], [place] [id number] Karla Rossi MD [address] [facility] [address] [place] [address] Social History Tobacco Use Types Packs/Day Years Used Date Smoking Tobacco: Never Smokeless Tobacco: Never Alcohol Use Standard Drinks/Week Comments Yes 24 (1 standard drink = 0.6 oz pu re alcohol) CAGE negative. Case per week. 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 Patient is concerned about missing work as he will not be paid during sick leave. 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 Sympathized with patient that he won't be paid during time off. Patient will proceed with being tested. documented in this encounter Plan of Treatment Not on file documented as of this encounter Visit Diagnoses Not on filedocumented in this encounter Additional Health Concerns Infection Onset Date Last Indicated Resolved Time COVID: Suspected 08/11/2019 08/11/2019 08/25/2019 3:06 AM CDT documented as of this encounter Care Teams Intern Retail Relationship Specialty Start Date End Date Jann Burrows MD [address] [facility] [address] [place] [address] PCP - General Hematology 03/13/19 10/28/21 documented as of this encounter
--- OUTSIDE RECORDS SUMMARY | 2024-05-10 17:15 | XMS_ITS | Encounter Summary ---
Author Organization [facility] Healthcare Address [address] [place] [address] Care Team Providers Care Residential Solar Sales Consultant Name Role Phone Jann Burrows MD Primary Care Provider Encounter Details Date Type Department Care Team (Late st Contact Info) Description 2019 Orders Only [facility] Primary Care Medicine Clinic [address] [facility] [address] [place], [place] [id number] Smith Rhoades MD PhD [address] [facility] [address] [place] [address] Social History Tobacco Use Types Packs/Day Years Used Date Smoking Tobacco: Every Day Cigarettes Smokeless Tobacco: Current Chew Alcohol Use Standard Drinks/Week Comments Yes 24 (1 standard drink = 0.6 oz pu re alcohol) CAGE negative. Case per week. 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 Not on file Not on file documented as of this encounter Ordered Prescriptions Prescription Sig Dispense Quantity Refills Last Filled Start Date End Date DULoxetine DR (CYMBALTA) 60 mg capsuleIndications :Anxiety with Depression Take 1 capsule (60 mg total) by mouth daily 90 capsule 1 2019 1 documented in this encounter Plan of Treatment Not on file documented as of this encounter Visit Diagnoses Not on filedocumented in this encounter Discontinued Medications Medication Sig Discontinue Reason Start Date End Da te DULoxetine (CYMBALTA) 30 mg capsuleIndications:Anxi ety with Depression Take 1 capsule (30 mg total) by mouth daily For the first 2 weeks, then increase to 2 capsules daily Reorder 12/25/2019 2019 documented as of this encounter Care Teams Residential Solar Sales Consultant Relationship Specialty Start Date End Date Jann Burrows MD [address] [place] [address] PCP - General Hematology 03/13/19 10/28/21 documented as of this encounter
--- OUTSIDE RECORDS SUMMARY | 2024-05-10 17:15 | XMS_ITS | Encounter Summary ---
Author Organization [facility] Healthcare Address [address] [place] [address] Care Team Providers Care Insurance Office Manager Name Role Phone Jann Burrows MD Primary Care Provider [phone] Mariana Monique MD Unavailable [phone] Reason for Visit * Reason Onset Date Comments Follow-up 2019 Encounter Details Date Type Department Care Team (Late st Contact Info) Description 2019 Telephone [facility] [address] [facility] [address] [place] [address] Jann Burrows MD [address] [facility] [address] [place] [address] Follow-up Social History Tobacco Use Types Packs/Day Years Used Date Smoking Tobacco: Every Day Cigarettes Smokeless Tobacco: Current Chew Alcohol Use Standard Drinks/Week Comments Yes 24 (1 standard drink = 0.6 oz pu re alcohol) CAGE negative. Case per week. 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 Patient stated that paperwork was due last week. He stated that he cleared it up with work and does not need any further paperwork. I apologized. I asked patient to call back if anything further is needed. Patient voiced understanding and appreciative. * Telephone Encounter - Smith Rhoades MD PhD - 01/04/2020 4:24 PM CDT Called pt, no answer, left VM for pt to call clinic and leave detailed instructions on how to fill out leave paperwork to satisfy employer. Myself or team nurse will reach out to patient again tomorrow to try to get this resolved. * Telephone Encounter - Jose Saavedra - 12/29/2019 11:27 AM CDT Patient needs for you to give him another call back, he states the paper work was filled out incorrectly and his Employer will not accept it. Please follow up. Patient contact: [phone] Jose [phone] * Telephone Encounter - Smith Rhoades MD PhD - 2019 4:13 PM CDT Called back, duloxetine has to be one tab daily. Called pharmacy and verballed script for 30mg daily x14 days, then new script for 60mg tabs once daily for 90 days. Forms faxed, will call to confirm receipt * Telephone Encounter - Jose Saavedra - 2019 12:[address] Rhoades, Patient had an appt with you on 12/25/19 and he is following up on the letter for his employer also on the change to his Duloxetine, pharmacy sent fax over on 12/25/19 also, please take a look and follow up with patient. Patient contact: [phone] Jose Campoverde [phone] documented in this encounter Plan of Treatment Not on file documented as of this encounter Visit Diagnoses Not on filedocumented in this encounter Additional Health Concerns Infection Onset Date Last Indicated Resolved Time COVID: Suspected 01/14/2020 01/14/2020 01/14/2020 6:21 PM CDT COVID19 01/15/2020 01/15/2020 01/31/2020 3:06 AM CDT documented as of this encounter Care Teams Insurance Office Manager Relationship Specialty Start Date End Date Jann Burrows MD [address] [place] [address] PCP - General Hematology 03/13/19 10/28/21 Mariana Monique MD [address] [place] [address] Referring Physician Internal Medicine 01/17/20 documented as of this encounter
--- OUTSIDE RECORDS SUMMARY | 2024-05-10 17:15 | XMS_ITS | Encounter Summary ---
Author Organization [facility] Healthcare Address [address] [place] [address] Care Team Providers Care Dog License Officer Supervisor Name Role Phone Jann Burrows MD Primary Care Provider [phone] Reason for Visit * Reason Comments Hyperglycemia Encounter Details Date Type Department Care Team (Latest Contact Info) Description 12/18/2019 1:46 PM CDT - 12/21/2019 12:30 PM CDT Hospital Encounter [facility] [address] [place] [address] China White MD [address] [facility] [address] [place] [address] Frederic Higuera MD [address] [place] [address] Beatrice Jeff MD [id number] [place] [address] Hyperglycemia (Primary Dx); Nausea; Frequency of urination and polyuria; Diabetic ketoacidosis without coma associated with other specified diabetes mellitus (CMS/HCC) Discharge Disposition: Discharge to home or self care Social History Tobacco Use Types Packs/Day Years Used Date Smoking Tobacco: Never Smokeless Tobacco: Current Alcohol Use Standard Drinks/Week Comments Yes 24 (1 standard drink = 0.6 oz pu re alcohol) CAGE negative. Case per week. 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 Not on file Not on file documented as of this encounter Last Filed Vital Signs Vital Sign Reading Time Taken Comments Blood Pressure 151/82 12/21/2019 7:50 AM CDT Pulse 72 12/21/2019 7:50 AM CDT Temperature 36.6 ??C (97.9 ??F) 12/21/2019 7:50 AM CD T Respiratory Rate 20 12/21/2019 7:50 AM CDT Oxygen Saturation 98% 12/21/2019 7:50 AM CDT Inhaled Oxygen Concentration - - Weight 215.5 kg (475 lb) 12/18/2019 1:21 PM CDT Height 200.7 cm (6' 7 ) 12/18/2019 1:21 PM CDT Body Mass Index 53.51 12/18/2019 1:21 PM CDT documented in this encounter Discharge Diagnoses Diagnosis Type 2 diabetes mellitus with hyperglycemia (CMS/HCC) (HCC) - TYPE 2 DIABETES MELLITUS WITH HYPERGLYCEMIA Body mass index (BMI) 50.0-59.9, adult - BODY MASS INDEX (BMI) 50.0-59.9, ADULT Cellulitis of left toe - CELLULITIS OF LEFT TOE Cellulitis of right toe - CELLULITIS OF RIGHT TOE Morbid (severe) obesity due to excess calories (HCC) - MORBID (SEVERE) OBESITY DUE TO EXCESS CALORIES Essential (primary) hypertension - ESSENTIAL (PRIMARY) HYPERTENSION Unspecified essential hypertension Metabolic syndrome - METABOLIC SYNDROME Dysmetabolic Syndrome X Cardiomegaly - CARDIOMEGALY Nicotine dependence, chewing tobacco, uncomplicated - NICOTINE DEPENDENCE, CHEWING TOBACCO, UNCOMPLICATED Fatty (change of) liver, not elsewhere classified - FATTY (CHANGE OF) LIVER, NOT ELSEWHERE CLASSIFIED Headache - HEADACHE Acanthosis nigricans - ACANTHOSIS NIGRICANS Acquired acanthosis nigricans Mixed hyperlipidemia - MIXED HYPERLIPIDEMIA Contact with and (suspected) exposure to other viral communicable diseases - CONTACT WITH AND (SUSPECTED) EXPOSURE TO OTHER VIRAL COMMUNICABLE DISEASES Family history of diabetes mellitus - FAMILY HISTORY OF DIABETES MELLITUS documented in this encounter Discharge Summaries * Vishnu Mascorro MD - 12/21/2019 11:54 AM CDT Inpatient Discharge Summary BRIEF OVERVIEW Admitting Provider: Frederic Higuera MD Discharge Provider: Frederic Higuera MD Primary Care Physician at Discharge: Jann Burrows MD [phone] Admission Date: 12/18/2019 Discharge Date: 12/21/2019 Admission Location: [facility] Problems/Diagnoses: Principal Problem: Hyperglycemia Resolved Problems: No resolved hospital problems. DETAILS OF HOSPITAL STAY Presenting Problem/History of Present Illness: See below Hospital Course: Geraldo Velez is a 23 y.o. male with PMH of recently diagnosed IDDM (A1C 6.8 11/2019, all antibodies negative), HTN, obesity (BMI > 50), metabolic syndrome, and asymmetric septal hypertrophy (last TTE 02/13/2016) presenting with hyperglycemia. Patient endorses polyuria, polydipsia, dry mouth, diaphoresis and nausea for the past day with home glucose checks in 500s. In past week, glucoses have been from 90-250. Reports good compliance with home regimen of 75U U500 TID, which was prescribed at recent endocrine visit 11/19/2019. He also takes metformin 1g BID. Patient was diagnosed with diabetes after DKA presentation February 2019. At time of that discharge,was on insulin regimen 80U U500 TID, 10 lispro TID, metformin 500 BID. Insulin was downtitrated to 75U TID in May 2019 after hypoglycemic episode. Denied any fever/chills, cough/congestion/sore throat, COVID contacts, abdominal pain, diarrhea, dysuria, paresthesias, leg swelling. ED Course: Vitals: HR 99, BP 189/106, T 36.8, RR 18, SpO2 99% on RA Meds: 10U regular insulin, 1L NS bolus Notable labs: glucose 411>351, Na 131, K hemolyzed, CO2 24, AG 14, Cr 0.84, UA concentrated Imaging: no imaging # Hyperglycemia # Diabetes Last A1C 6.8 in November. Presented with glucose 494, improved to 351 with 10U regular IV and 1L NS. Patient reports good compliance with home regimen 75U U500 TID with BG 90-250 prior to past day. No clear symptoms to suggest infectious trigger. Patient with very high insulin requirements suggestive of extreme insulin resistance, in line with metabolic syndrome. -- A1C 8.4 this admission -- Endocrine following Inpatient insulin titrated to: Insulin NPH 55U q8h. Lispro 30U TID with meals. HDSSI qachs. TDD in 24 hours prior to discharge -- Discharge plan: 85U U500 NPH TID with 10U lispro TID with meals continue metformin 1g BID. Trulicity requires prior auth so was deferred to outpatient setting # HTN -- Continue coreg 25 BID -- Increased lisinopril to 20 mg daily -- Unclear if on indapamide or HCTZ. Will hold for now, CTM # Paronychia Bilateral inflamed big toes around the nails. Has an appointment with podiatry in February. Has tried neosporin with no response. - Topical mupirocin and betadine # Asymmetric septal hypertrophy Reports asymptomatic since high school. No procedures, last TTE 2015. Cardiac MR in 2018. No ROMAN. Negative genetic screen for HCM mutations in past. -- Continue coreg 25 BID # Dyslipidemia Lipid panel 03/04/19: TG 1274, LDL 39, HDL 17, Cholesterol 206 -- Continue atorvastatin 20 mg # NAFLD Patient with mild elevated LFTs in past with hepatic steatosis on 2018 . Active Issues Requiring Follow-up: Insulin management - patient will follow up with Dr. Styles in clinic Test Results Pending at Discharge: Operative Procedures Performed: Other Procedures: Pertinent Test Results: See above Discharge Details Physical Exam at Discharge: Discharge Condition: good Pulse: 72 Resp: 20 BP: 151/82 Temp: 36.6 ??C (97.9 ??F) Weight: (!) 215.5 kg (475 lb) Pertinent Exam Findings at Discharge: benign exam Discharge Disposition: Discharge to home or self care Code Status at Discharge: Full Discharge Instructions: Discharge Medications: Current Medications TAKE these medications atorvastatin 20 mg tablet Take 1 tablet (20 mg total) by mouth daily Commonly known as: LIPITOR blood glucose diagnostic strip Test daily before all meals/snacks and once before bedtime. Commonly known as: OneTouch Ultra Test blood-glucose meter kit 1 kit once for 1 dose Patient needs in room for diabetes education carvediloL 25 mg tablet Take 1 tablet (25 mg total) by mouth 2 (two) times a day with meals Commonly known as: COREG glucagon 1 mg kit Generic drug: glucagon HumuLIN R U-500 (Conc) Kwikpen 500 unit/mL (3 mL) CONCENTRATED injection Inject 85 units three times daily Generic drug: insulin regular U-500 insulin lispro 100 unit/mL insulin pen Inject 10 Units under the skin 3 (three) times a day with meals For: type 2 diabetes mellitus Commonly known as: HumaLOG, ADMELOG * lancets [facility] [place] [place] Patient needs in room for diabetes education * Natividad Delica Plus Lancet 33 gauge [facility] [place] Generic drug: lancets lisinopriL 20 mg tablet Take 1 tablet (20 mg total) by mouth daily Commonly known as: PRINIVIL,ZESTRIL Start taking on: December 22, 2019 metFORMIN 500 mg tablet Take 2 tablets (1,000 mg total) by mouth 2 (two) times a day with meals Commonly known as: GLUCOPHAGE mupirocin 2 % ointment Apply topically 3 (three) times a day Commonly known as: BACTROBAN * pen needle, diabetic 32 gauge x 5/32 needle Use to inject insulin BG three times a day as instructed Commonly known as: BD Ultra-Fine Radha Pen Needle * pen needle, diabetic 32 gauge x 5/32 needle Use as directed 3 times a day. povidone-iodine 7.5 % solution Apply topically as needed for wound care Commonly known as: BETADINE * This list has 4 medication(s) that are the same as other medications prescribed for you. Read the directions carefully, and ask your doctor or other care provider to review them with you. Outpatient Follow-Up: Future Appointments Date Time Provider Department Center 12/25/2019 9:00 AM Smith Rhoades MD PhD [facility] 01/06/2020 3:45 PM Jef Walton MD CAR CAM 8A Cardiology 06/02/2020 4:20 PM Peter Styles MD E[facility] CAM 5C [facility] EML Contact Information for Follow-ups Jann Burrows MD Specialty: Hematology Relationship: PCP - General [address] [address] Next Steps: Follow up in 7 day(s) Cosigned by Frederic Higuera MD at 12/21/2019 4:40 PM CDT documented in this encounter Discharge Instructions * Discharge Instructions* Vishnu Mascorro MD - 12/21/2019 11:14 AM CDT Dear Mr. Velez, Thank you for allowing the [facility] medicine team to take care of you during your recent hospital stay. You came to us with significantly elevated blood glucoses. While inpatient, your insulin was adjusted for better glucose control. Based on your doses here, you should take 85 units of U500 NPH insulinthree times daily as well as 10 units insulin lispro three times daily with meals. You should also continue to take metformin. If you experience any of the following you should return to the Emergency Department: confusion, lethargy, significant visual changes If your glucoses remain consistently greater than 250, you should call your contractor field hauling to arrange follow up and make any adjustments to your insulin. For medications we have add the following that you should continue taking in addition to your home medications: -- Insulin U500 NPH, 85 units every 8 hours -- Insulin lispro, 10 units, three times daily with meals -- Increase your lisinopril to 20 mg daily -- Mupurocin ointment and betadine solution for your toes For followup, you should see endocrinology (Dr. Styles), as well as your primary care provider, Dr. Burrows. Please call to schedule these appointments. Thank you for allowing us to be your medical team and we wish you the best with your recovery. documented in this encounter Medications at Time [...] tablet 3 03/19/2019 2 blood glucose diagnostic (Skybox ImagingTouch Ultra Test) stripIndications:D iabetic ketoacidosis without coma [...] with meals 60 tablet 11 01/27/2019 0 insulin lispro (HumaLOG, ADMELOG) 100 unit/mL insulin penIndications:typ e 2 diabetes mellitus Inject 10 Units under the skin 3 (three) times a day with meals 9 mL 1 12/21/2019 1 insulin regular U-500 (HumuLIN R U-500, Conc, Kwikpen) 500 unit/mL (3 mL) CONCENTRATED injection Inject 85 units three times daily 40 mL 3 12/21/2019 0 lisinopriL (PRINIVIL,ZESTRIL) 20 mg tablet Take 1 tablet (20 mg total) by mouth daily 30 tablet 1 12/22/2019 0 metFORMIN (GLUCOPHAGE) 500 mg tabletIndications: Diabetic ketoacidosis [...] 1 pen needle, diabetic 32 gauge x 5/32 needle Use as directed 3 times a day. 100 each 12/21/2019 1 povidone-iodine (BETADINE) 7.5 % solution Apply topically as needed for wound care 59 mL 12/21/2019 0 documented as of this encounter Ordered Prescriptions Prescription Sig Dispense Quantity Refills Last Filled Start Date End Date pen needle, diabetic 32 gauge x 5/32 needle Use as directed 3 times a day. 100 each 12/21/2019 1 insulin lispro (HumaLOG, ADMELOG) 100 unit/mL insulin penIndications:typ e 2 diabetes mellitus Inject 10 Units under the skin 3 (three) times a day with meals 9 mL 1 12/21/2019 1 insulin regular U-500 (HumuLIN R U-500, Conc, Kwikpen) 500 unit/mL (3 mL) CONCENTRATED injection Inject 85 units three times daily 40 mL 3 12/21/2019 0 povidone-iodine (BETADINE) 7.5 % solution Apply topically as needed for wound care 59 mL 12/21/2019 0 mupirocin (BACTROBAN) 2 % ointment Apply topically 3 (three) times a day 30 g 12/21/2019 2 lisinopriL (PRINIVIL,ZESTRIL) 20 mg tablet Take 1 tablet (20 mg total) by mouth daily 30 tablet 1 12/22/2019 0 dulaglutide (TRULICITY) 0.75 mg/0.5 mL pen injector Inject 0.5 mL (0.75 mg total) under the skin every 7 days 2 mL 12/21/2019 0 documented in this encounter Discharge Disposition Disposition Code Departure Means Destination Discharge to home or self care Other documented in this encounter Progress Notes * Eugenie Angeles, BRYANNA - 12/21/2019 11:42 AM CDT 12/19/19 0115 Discharge Summary Chart reviewed For Medical Necessity Does patient have a planned readmission to hospital planned? No Discharge Disposition Home Equipment/Provider Needs No Home Needs Identified Discharge Additional Assistance Does the patient need discharge transport arranged? No Post Discharge Care Provider Post Discharge Care Plan DC Summary has been faxed to next level of care provider (see Follow Up Providers) Patient is medically stable for discharge to home today. Per team, Home Health and DME not indicated for this patient. Follow-up scheduled with Endocrine and Cards. Message sent to PCP clinic for schedule who will contact patient. CM also placed note in patient's discharge instructions to self-schedule if he does not hear from them. Family will provide transportation home. Patient agrees to plan for discharge. Service Technician Copier will continue to follow discharge plan of care until the patient is discharged. If needed, please contact me at [phone] * Stas Richardson MD PhD - 12/21/2019 8:18 AM CDT Endocrinology & Diabetes Progress Note Patient: Geraldo Velez, 23 y.o. male (: 1995) Room: [address] [id number] ( ) LOS: 3 Geraldo Velez is a 23 y.o. male with history of T2DM with prior DKA,??HTN, obesity (BMI >??50), metabolic syndrome, and hx asymmetric septal hypertrophy (last TTE 02/13/2016, follows with ) presenting to the ED??with hyperglycemia. We are consulted for hyperglycemia. Interval Events & Subjective Fasting BG 196 this morning after ranging 114-258 yesterday TDD last 24h = 296u Extensive discussion and motivational interviewing regarding lifestyle management of insulin resistance today. He is considering weight loss surgery. When discussing his discharge regimen, he notes that he has been better controlled in hospital on prandial lispro and requests that we consider restarting this on discharge. He shows me both U-500 and Humalog pens. Diet: Adult Diet Regular, Restricted; Consistent Carbohydrate Recent Labs Lab Units 12/21/19 0755 12/21/19 0250 12/20/19 2141 12/20/19 1715 12/20/19 1130 12/20/19 0805 12/20/19 0249 12/19/19 2334 12/19/19 2019 12/19/19 1701 POC GLUCOSE MONITOR mg/dL 196 174 131 114 229* 258* 234* 197 254* 239* Interval Review of Systems Twelve point ROS reviewed and negative except as noted in HPI. All other systems negative. Vitals & Exam Temp: [36.6 ??C (97.9 ??F)] 36.6 ??C (97.9 ??F) Pulse: [72-77] 72 BP: (150-151)/(65-82) 151/82 Resp: [20] 20 SpO2: [98 %-99 %] 98 % No intake/output data recorded. Physical Exam Gen : no acute distress, alert, appropriate, cooperative, appears stated age, well-developed, well-nourished, male HENT : normocephalic, atraumatic, moist mucus membranes Eyes : conjunctiva clear, anicteric, no proptosis/exophthalmos/lid lag, EOMI Pulm : clear to auscultation in anterior [place], non-labored, on room air CV : regular rate & rhythm,??no murmurs/rubs/gallops, no JVD Abd : obese, soft, non-tender, non-distended, normoactive bowel sounds Extr : atraumatic, ingrown toe-nails on first toe of both feet with mild surrounding erythema, otherwise no sores/ulcerations on rest of feet Skin : turgor normal, no rashes/wounds/lesions, +acanthosis nigricans on hands Neuro : alert,??speech fluent, comprehension intact, moving all extremities, sensation intact to light touch in both feet Psych : cooperative, appropriate affect & mood, good insight & judgment Data Medications, labs, imaging, and diagnostics independently reviewed in Epic and commented on below. Chemistry Lab Results Component Value Date SODIUM 137 12/19/2019 POTASSIUM 3.5 12/19/2019 CHLORIDE 100 12/19/2019 CO2 26 12/19/2019 ANIONGAP 11 12/19/2019 BUNSER 17 12/19/2019 CREATININE 0.82 12/19/2019 GLUCOSE 196 12/21/2019 GLUCOSE 262 (H) 12/19/2019 CALCIUM 9.3 12/19/2019 Lab Results Component Value Date HGBA1C 8.4 (H) 12/19/2019 Lab Results Component Value Date TSH 2.56 09/06/2017 Lab Results Component Value Date CHOL 175 12/19/2019 TRIG 785 (H) 12/19/2019 HDL 22 (L) 12/19/2019 LDLCALC See Comment 12/19/2019 LDLDIRECT 60 12/19/2019 Lab Results Component Value Date 25HYDROVITD 16 (L) 09/06/2017 IMI28EK 0.00 03/04/2019 Assessment & Plan # Type 2 diabetes, with oysterman use of insulin, complicated by hyperglycemia. A1C 6.8% in 11/2019. Now 8.4%. Now with rising blood glucose levels over the past 2-3 days. BG 494, AG 14 on admission. VBG pending. Home regimen is U500 insulin 75 units TID for total daily dose of 225 units. Patient denies missing any doses at home. This is about 1U/kg dose. TDD on 12/19 on consistent carb diet = 296u = 1.4 U/kg At his request and noting improved glycemic control while inpatient on prandial insulin, will add back lispro to his home regimen. ?? Discharge recommendations: - U500 85U q8h - Humalog 10U TID AC - This is a TDD of 285 units, slightly less than his most recent requirements here - continue metformin ?? # Mixed hyperlipidemia: His diabetes and elevated cholesterol are indications for statin therapy. - continue atorvastatin 20mg daily ?? # Essential Hypertension: MARIFER/ARB use in diabetics can prevent the progression of renal disease. -continue lisinopril 10mg daily ?? # Obesity: This complicates all aspects of his care, predisposing him to hyperglycemia and increasing his insulin requirements. ?? ## Discharge Planning - f/u with Dr. Styles in endocrine clinic -- Stas Richardson MD PhD Endocrinology, Metabolism, & Lipid Research Contact Info: New Consults: [phone]) General Endocrine (Non-Diabetes): [phone] (Check 'Treatment Team' assignment for Diabetes 1 vs 2 vs 3) Diabetes 1: Diabetes Fellow: [phone] Diabetes 2: Nita Arias, BUSINESS PROJECT MANAGER: [phone] Diabetes 3: See Treatment Team Provider (or call Nita Arias, above) Diabetes After-Hours & Weekends: Diabetes Fellow Cosigned by Jenifer Hurst MD at 12/22/2019 8:10 AM CDT * Vishnu Mascorro MD - 12/21/2019 7:04 AM CDT MEDICINE FIRM DAILY PROGRESS NOTE Date/Time: 12/21/2019 11:10 AM Patient Name: Geraldo Velez : 1995 Unit: [id number] Hospital Day: 4 PATIENT SUMMARY Geraldo Velez is a 23 y.o. male with PMH notable for recently diagnosed IDDM (A1C 6.8 11/2019, all antibodies negative), HTN, obesity (BMI > 50), metabolic syndrome, and asymmetric septal hypertrophy (last TTE 02/13/2016) presenting with hyperglycemia. INTERVAL HISTORY Updates 12/21/2019: -- Course 12/20/2019: Glucoses 100s. Insulin U500 55U q8h, 30U lispro TID with meals, HDSSI. TDD 268U yesterday. Increased lisinopril to 20 mg. -- ON: NAEO -- Subjective: no complaints, feels well, no headache -- Results: glucoses 100s To do: -- discharge >> 85U NPH U500 q8h, 10U Lispro with meals -- [facility] francis check >> requires prior auth, will defer CURRENT MEDICATIONS Scheduled atorvastatin, 20 mg, oral, Daily carvediloL, 25 mg, oral, BID with meals (bkfst, dinner) enoxaparin, 40 mg, subcutaneous, Q12H MICHELLE insulin lispro, 1-4 Units, subcutaneous, Nightly insulin lispro, 1-4 Units, subcutaneous, Q24H insulin lispro, 1-7 Units, subcutaneous, TID with meals insulin lispro, 30 Units, subcutaneous, TID with meals insulin NPH, 55 Units, subcutaneous, Q8H lisinopriL, 20 mg, oral, Daily sodium chloride 0.9%, 0.5-20 mL, intra-catheter, Q8H MICHELLE Infusions PRN ??? acetaminophen ??? dextrose OR dextrose ??? glucagon ??? sodium chloride 0.9% OBJECTIVE Vital signs in last 24 hours: Temp Min: 36.5 ??C (97.7 ??F) Max: 36.6 ??C (97.9 ??F) Pulse Min: 71 Max: 81 BP Min: 133/59 Max: 156/95 Resp Min: 20 Max: 20 SpO2 Min: 98 % Max: 100 % Most Recent Vitals: Vitals Height: 200.7 cm (6' 7 ) Height Method: Stated Weight: (!) 215.5 kg (475 lb) Temp: 36.6 ??C (97.9 ??F) Temp src: Oral Pulse: 72 Resp: 20 BP: 151/82 MAP (mmHg): 79 SpO2: 98 % O2 Therapy: None (Room air) Intake/Output: No intake or output data in the 24 hours ending 12/21/19 1110 Weight change: Physical Exam: GENERAL: Alert Oriented x 3, NAD, obese HEENT:Normocephalic, NELLI, EOMI, oral mucosa dry. Neck supple, no palpable lymphadenopathy CV: regular rate and rhythm, S1/S2, no murmurs LUNGS: clear to auscultation bilaterally. ABDOMEN: positive bowel sounds, soft, non tender, non distended, no rebound or guarding, no CVA tenderness EXTREMITIES: no edema, clubbing or cyanosis, normal rom. Acanthosis noted on dorsal aspect of hands NEURO: CN intact, no FND SKIN: no lesions or rashes seen on close inspection Labs: Hematology Recent Labs Lab Units 12/19/19 0323 WBC K/cumm 5.2 HEMOGLOBIN g/dL 14.3 HEMATOCRIT % 39.2 MCV fL 80.8* PLATELETS K/cumm 252 LYMPHS PCT % 39.4 MONOS PCT % 8.5 NEUTROS PCT % 47.6 EOS PCT % 3.7 BASOS % 0.4 Chemistry Recent Labs Lab Units 12/21/19 0755 12/21/19 0250 12/20/19 2141 12/19/19 0323 12/18/19 1536 SODIUM mmol/L -- -- -- -- 137 -- 131* POTASSIUM PLASMA mmol/L -- -- -- -- 3.5 -- See Comment CHLORIDE mmol/L -- -- -- -- 100 -- 93* CO2 mmol/L -- -- -- -- 26 -- 24 BUN SERUM mg/dL -- -- -- -- 17 -- 18 CREATININE mg/dL -- -- -- -- 0.82 -- 0.84 GLUCOSE mg/dL -- -- -- -- 262* -- 411* POC GLUCOSE MONITOR mg/dL 196 174 131 < > 244* < > -- CALCIUM mg/dL -- -- -- -- 9.3 -- 9.5 ANIONGAP mmol/L -- -- -- -- 11 -- 14 < > = values in this interval not displayed. No lab exists for component: LIPASE Coagulation Urinalysis Recent Labs Lab Units 12/18/19 1536 COLOR U Straw CLARITY U Clear SPEC GRAV U 1.029* PH, URINE 6 PROTEIN UR QL 1+* GLUCOSE URQL 3+* KETONES UR Trace BLOOD UR Negative NITRITE UR Negative LEUKOCYTE ESTERASE UR 1+* Imaging: No results found. Micro: CURRENT DEVICES ASSESSMENT AND PLAN Geraldo Velez is a 23 y.o. male with PMH of recently diagnosed IDDM (A1C 6.8 11/2019, all antibodies negative), HTN, obesity (BMI > 50), metabolic syndrome, and asymmetric septal hypertrophy (last TTE 02/13/2016) presenting with hyperglycemia. # Hyperglycemia # Diabetes Last A1C 6.8 in November. Presented with glucose 494, improved to 351 with 10U regular IV and 1L NS. Patient reports good compliance with home regimen 75U U500 TID with BG 90-250 prior to past day. No clear symptoms to suggest infectious trigger. Patient with very high insulin requirements suggestive of extreme insulin resistance, in line with metabolic syndrome. -- Endocrine following -- Insulin NPH 55U q8h -- HDSSI qachs -- Lispro 35U TID with meals -- Discharge on NPH U500 85U TID, Lispro 10U TID with meals, continue metformin ?? # HTN -- Continue coreg 25 BID -- Increased lisinopril to 20 mg daily -- Unclear if on indapamide or HCTZ. Will hold for now, CTM ?? # Asymmetric septal hypertrophy Reports asymptomatic since high school. No procedures, last TTE 2016. Cardiac MR in 2018. No ROMAN. Negative genetic screen for HCM mutations in past. -- Continue coreg 25 BID ?? # Dyslipidemia Lipid panel 03/04/19: TG 1274, LDL 39, HDL 17, Cholesterol 206 -- Continue atorvastatin 20 mg ?? # NAFLD Patient with mild elevated LFTs in past with hepatic steatosis on 2018 US. F: PO E: Monitor and replace as needed. N: Adult Diet Regular, Restricted; Consistent Carbohydrate Last BM: DVT ppx: Lovenox PT/OT/DEMOLITION EXPERT: no acute needs Dispo: home once insulin/glucose stable Discharge goals: insulin regimen Electronic Signature: Roman Mascorro MD PGY1 Anesthesiology [phone] Date/Time: 12/21/2019 11:10 AM Cosigned by Frederic Higuera MD at 12/21/2019 4:40 PM CDT Associated attestation - Frederic Higuera MD - 12/21/2019 4:40 PM CDT I have seen and examined the patient on 12/21/19. I agree with the findings and plan of care as documented in the resident's/fellow's note. and as discussed with the resident/fellow. 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 Patient admitted for treatment of: hyperglycemia Insurance verified as: [employer] Prescription Coverage: yes Preferred Pharmacy: [facility] PCP verified as: Dr. Burrows Transportation: per family Admission Source: non-healthcare facility Prior level of Functioning: Independent Additional Information/Options Discussed: Verified demographic information from the face sheet withthe patient/family. Explained role and purpose of case filler. Denies the use of home health in the past - a list will be offered if recommended. Patient demonstrates no agency preference at this time. pharmacy manager to continue to follow for planning and referrals as needed. Discussed mobile pharmacy. Based on a comprehensive family assessment, assistance with instrumental activities of daily livingafter discharge will be provided by Leatha . Through the course of our work, I determined that Leatha possesses the skill and ability to provide and monitor the care of the patient when he or she returns home/discharges. Leatha has the capacity to provide/monitor/arrange for the care of the patient. Finally, we determined that Leatha has the knowledge of available resources and that combining them with their existing resources will suffice to sustain and care for the patient when he or she returns home/discharges. The treatment team is aware ofthis information. All are in agreement with the aftercare plan. Problem: Establish a safe discharge Goal: Implement a safe discharge plan with appropriate resources/assistance. * Mary Bailey MD - 12/20/2019 9:36 AM CDT Endocrinology & Diabetes Progress Note Patient: Geraldo Velez, 23 y.o. male (: 1995) Room: [place] [address] [address] ( ) LOS: 2 Geraldo Velez is a 23 y.o. male with history of T2DM with prior DKA,??HTN, obesity (BMI >??50), metabolic syndrome, and hx asymmetric septal hypertrophy (last TTE 02/13/2016, follows with ) presenting to the ED??with hyperglycemia. We are consulted for hyperglycemia. Interval Events & Subjective BG remain above target in 200s. Patient is now eating consistent carb diet. TDD = 210 units yesterday. BG increased from 197 at bedtime to 258 this morning. Diet: Adult Diet Regular, Restricted; Consistent Carbohydrate Recent Labs Lab Units 12/20/19 0805 12/20/19 0249 12/19/19 2334 12/19/19 2019 12/19/19 1701 12/19/19 1150 12/19/19 0727 12/19/19 0323 12/19/19 0041 GLUCOSE mg/dL -- -- -- -- -- -- -- 262* -- POC GLUCOSE MONITOR mg/dL 258* 234* 197 254* 239* 250* 224* 244* 319* Interval Review of Systems Twelve point ROS reviewed and negative except as noted in HPI. All other systems negative. Vitals & Exam Temp: [36.6 ??C (97.9 ??F)] 36.6 ??C (97.9 ??F) Pulse: [78] 78 BP: (141-144)/(82) 141/82 Resp: [20] 20 SpO2: [99 %] 99 % No intake/output data recorded. Physical Exam Gen : no acute distress, alert, appropriate, cooperative, appears stated age, well-developed, well-nourished, male HENT : normocephalic, atraumatic, moist mucus membranes Eyes : conjunctiva clear, anicteric, no proptosis/exophthalmos/lid lag, EOMI Pulm : clear to auscultation in anterior [place], non-labored, on room air CV : regular rate & rhythm,??no murmurs/rubs/gallops, no JVD Abd : obese, soft, non-tender, non-distended, normoactive bowel sounds Extr : atraumatic, ingrown toe-nails on first toe of both feet with mild surrounding erythema, otherwise no sores/ulcerations on rest of feet Skin : turgor normal, no rashes/wounds/lesions Neuro : alert,??speech fluent, comprehension intact, moving all extremities, sensation intact to light touch in both feet Psych : cooperative, appropriate affect & mood, good insight & judgment Data Medications, labs, imaging, and diagnostics independently reviewed in Epic and commented on below. Chemistry Lab Results Component Value Date SODIUM 137 12/19/2019 POTASSIUM 3.5 12/19/2019 CHLORIDE 100 12/19/2019 CO2 26 12/19/2019 ANIONGAP 11 12/19/2019 BUNSER 17 12/19/2019 CREATININE 0.82 12/19/2019 GLUCOSE 258 (H) 12/20/2019 GLUCOSE 262 (H) 12/19/2019 CALCIUM 9.3 12/19/2019 Lab Results Component Value Date HGBA1C 8.4 (H) 12/19/2019 Lab Results Component Value Date TSH 2.56 09/06/2017 Lab Results Component Value Date CHOL 175 12/19/2019 TRIG 785 (H) 12/19/2019 HDL 22 (L) 12/19/2019 LDLCALC See Comment 12/19/2019 LDLDIRECT 60 12/19/2019 Lab Results Component Value Date 25HYDROVITD 16 (L) 09/06/2017 HPD21YY 0.00 03/04/2019 Assessment & Plan # Type 2 diabetes, with detention use of insulin, complicated by hyperglycemia. A1C 6.8% in 11/2019. Now 8.4%. Now with rising blood glucose levels over the past 2-3 days. BG 494, AG 14 on admission. VBG pending. Home regimen is U500 insulin 75 units TID for total daily dose of 225 units. Patient denies missing any doses at home. This is about 1U/kg dose. Given that he is currently NPO and much of his home insulin requirement may be diet driven, initially started NPH 35 Q8H wh ich was inadequate basal dose, then increased to 45U Q8H which is holding BG steady, though still above goal. Continuing to increase doses as needed. Now eating consistent carb diet. ?? Recommendations: - increase NPH 50 -> 55U Q8H - increase Humalog 25, s/p humalog 35U with lunch (+5U sliding scale), would cut back to humalog 30units TIDAC starting at dinner - HDSSI + qHS + 2am - Carb consistent diet ?? - IF he has severe hyperglycemia (>300), use the hyperglycemia urgency order set (make NPO, give10 units of IV insulin, re-check in 1 hour) ?? Discharge recommendations: - WIll likely require U500 around 90U TID, final dose pending requirements while inpatient - continue metformin ?? # Mixed hyperlipidemia: His diabetes and elevated cholesterol are indications for statin therapy. - continue atorvastatin 20mg daily ?? # Essential Hypertension: MARIFER/ARB use in diabetics can prevent the progression of renal disease. -continue lisinopril 10mg daily ?? # Obesity: This complicates all aspects of his care, predisposing him to hyperglycemia and increasing his insulin requirements. - Recommend GLP-1 (e.g. Trulicity 0.75 mg qWeek) on discharge if covered by insurance ? ## Discharge Planning - f/u with Dr. Styles in endocrine clinic -- Mary Bailey MD Endocrinology, Metabolism, & Lipid Research Contact Info: New Consults: [phone]) General Endocrine (Non-Diabetes): [phone] (Check 'Treatment Team' assignment for Diabetes 1 vs 2 vs 3) Diabetes 1: Diabetes Fellow: [phone] Diabetes 2: Nita Arias, BUSINESS PROJECT MANAGER: [phone] Diabetes 3: See Treatment Team Provider (or call Nita Arias, above) Diabetes After-Hours & Weekends: Diabetes Fellow Cosigned by Aniya Mancia MD at 12/20/2019 3:18 PM CDT Associated attestation - Aniya Mancia MD - 12/20/2019 3:18 PM CDT I have seen and examined the patient on 12/20/19. I agree with the findings and plan of care as documented in the resident's/fellow's note. Aniya Mancia MD * Vishnu Mascorro MD - 12/20/2019 7:25 AM CDT MEDICINE FIRM DAILY PROGRESS NOTE Date/Time: 12/20/2019 7:25 AM Patient Name: Geraldo Velez : 1995 Unit: [id number] Hospital Day: 3 PATIENT SUMMARY Geraldo Velez is a 23 y.o. male with PMH notable for recently diagnosed IDDM (A1C 6.8 11/2019, all antibodies negative), HTN, obesity (BMI > 50), metabolic syndrome, and asymmetric septal hypertrophy (last TTE 02/13/2016) presenting with hyperglycemia. INTERVAL HISTORY Updates 12/20/2019: -- Course 12/19/2019: Glucoses 200s. Insulin increased to U500 50U q8h, 25U lispro TID with meals, HDSSI. TDD 210U yesterday. -- ON: glucoses 250s -- Subjective: no complaints, feels well, no headache -- Results: glucoses 230s-250s To do: -- continue to titrate insulin per endo recs >> increased U500 NPH to 55U q8h, lispro to 35U TID with meals -- increase lisinopril given slight hypertension -- discharge late tonight vs early tomorrow CURRENT MEDICATIONS Scheduled atorvastatin, 20 mg, oral, Daily carvediloL, 25 mg, oral, BID with meals (bkfst, dinner) enoxaparin, 40 mg, subcutaneous, Q12H MICHELLE insulin lispro, 1-4 Units, subcutaneous, Nightly insulin lispro, 1-4 Units, subcutaneous, Q24H insulin lispro, 1-7 Units, subcutaneous, TID with meals insulin lispro, 25 Units, subcutaneous, TID with meals insulin NPH, 50 Units, subcutaneous, Q8H lisinopriL, 10 mg, oral, Daily sodium chloride 0.9%, 0.5-20 mL, intra-catheter, Q8H MICHELLE Infusions PRN ??? acetaminophen ??? dextrose OR dextrose ??? glucagon ??? sodium chloride 0.9% OBJECTIVE Vital signs in last 24 hours: Temp Min: 36.6 ??C (97.9 ??F) Max: 36.6 ??C (97.9 ??F) Pulse Min: 74 Max: 78 BP Min: 149/90 Max: 153/84 Resp Min: 20 Max: 20 SpO2 Min: 99 % Max: 99 % Most Recent Vitals: Vitals Height: 200.7 cm (6' 7 ) Height Method: Stated Weight: (!) 215.5 kg (475 lb) Temp: 36.6 ??C (97.9 ??F) Temp src: Oral Pulse: 78 Resp: 20 BP: 151/90 MAP (mmHg): 103 SpO2: 99 % O2 Therapy: None (Room air) Intake/Output: No intake or output data in the 24 hours ending 12/20/19 0725 Weight change: Physical Exam: GENERAL: Alert Oriented x 3, NAD, obese HEENT:Normocephalic, NELLI, EOMI, oral mucosa dry. Neck supple, no palpable lymphadenopathy CV: regular rate and rhythm, S1/S2, no murmurs LUNGS: clear to auscultation bilaterally. ABDOMEN: positive bowel sounds, soft, non tender, non distended, no rebound or guarding, no CVA tenderness EXTREMITIES: no edema, clubbing or cyanosis, normal rom. Acanthosis noted on dorsal aspect of hands NEURO: CN intact, no FND SKIN: no lesions or rashes seen on close inspection Labs: Hematology Recent Labs Lab Units 12/19/19 0323 WBC K/cumm 5.2 HEMOGLOBIN g/dL 14.3 HEMATOCRIT % 39.2 MCV fL 80.8* PLATELETS K/cumm 252 LYMPHS PCT % 39.4 MONOS PCT % 8.5 NEUTROS PCT % 47.6 EOS PCT % 3.7 BASOS % 0.4 Chemistry Recent Labs Lab Units 12/20/19 0249 12/19/19 2334 12/19/19201812/19/19 0323 12/18/19 1536 SODIUM mmol/L -- -- -- -- 137 -- 131* POTASSIUM PLASMA mmol/L -- -- -- -- 3.5 -- See Comment CHLORIDE mmol/L -- -- -- -- 100 -- 93* CO2 mmol/L -- -- -- -- 26 -- 24 BUN SERUM mg/dL -- -- -- -- 17 -- 18 CREATININE mg/dL -- -- -- -- 0.82 -- 0.84 GLUCOSE mg/dL -- -- -- -- 262* -- 411* POC GLUCOSE MONITOR mg/dL 234* 197 254* < > 244* < > -- CALCIUM mg/dL -- -- -- -- 9.3 -- 9.5 ANIONGAP mmol/L -- -- -- -- 11 -- 14 < > = values in this interval not displayed. No lab exists for component: LIPASE Coagulation Urinalysis Recent Labs Lab Units 12/18/19 1536 COLOR U Straw CLARITY U Clear SPEC GRAV U 1.029* PH, URINE 6 PROTEIN UR QL 1+* GLUCOSE URQL 3+* KETONES UR Trace BLOOD UR Negative NITRITE UR Negative LEUKOCYTE ESTERASE UR 1+* Imaging: No results found. Micro: CURRENT DEVICES ASSESSMENT AND PLAN Geraldo Velez is a 23 y.o. male with PMH of recently diagnosed IDDM (A1C 6.8 11/2019, all antibodies negative), HTN, obesity (BMI > 50), metabolic syndrome, and asymmetric septal hypertrophy (last TTE 02/13/2016) presenting with hyperglycemia. # Hyperglycemia # Diabetes Last A1C 6.8 in November. Presented with glucose 494, improved to 351 with 10U regular IV and 1L NS. Patient reports good compliance with home regimen 75U U500 TID with BG 90-250 prior to past day. No clear symptoms to suggest infectious trigger. Patient with very high insulin requirements suggestive of extreme insulin resistance, in line with metabolic syndrome. -- Endocrine following -- Insulin NPH 55U q8h -- HDSSI qachs -- Lispro 35U TID with meals ?? # HTN -- Continue coreg 25 BID -- Increased lisinopril to 20 mg daily -- Unclear if on indapamide or HCTZ. Will hold for now, CTM ?? # Asymmetric septal hypertrophy Reports asymptomatic since high school. No procedures, last TTE 2016. Cardiac MR in 2018. No ROMAN. Negative genetic screen for HCM mutations in past. -- Continue coreg 25 BID ?? # Dyslipidemia Lipid panel 03/04/19: TG 1274, LDL 39, HDL 17, Cholesterol 206 -- Continue atorvastatin 20 mg ?? # NAFLD Patient with mild elevated LFTs in past with hepatic steatosis on 2018 US. F: PO E: Monitor and replace as needed. N: Adult Diet Regular, Restricted; Consistent Carbohydrate Last BM: DVT ppx: Lovenox PT/OT/DEMOLITION EXPERT: no acute needs Dispo: home once insulin/glucose stable Discharge goals: insulin regimen Electronic Signature: Roman Mascorro MD PGY1 Anesthesiology [phone] Date/Time: 12/20/2019 7:25 AM Cosigned by Frederic Higuera MD at 12/20/2019 10:26 AM CDT Associated attestation - Frederic Higuera MD - 12/20/2019 10:26 AM CDT I have seen and examined the patient on 12/20/19. I agree with the findings and plan of care as documented in the resident's/fellow's note. and as discussed with the resident/fellow. * Vishnu Mascorro MD - 12/19/2019 6:50 AM CDT MEDICINE FIRM DAILY PROGRESS NOTE Date/Time: 12/19/2019 11:59 AM Patient Name: Geraldo Velez : 1995 Unit: [id number] Hospital Day: 2 PATIENT SUMMARY Geraldo Velez is a 23 y.o. male with PMH notable for recently diagnosed IDDM (A1C 6.8 11/2019, all antibodies negative), HTN, obesity (BMI > 50), metabolic syndrome, and asymmetric septal hypertrophy (last TTE 02/13/2016) presenting with hyperglycemia. INTERVAL HISTORY Updates 12/19/2019: -- Course 12/18/2019: Seen by endo. Started on NPH 35U TID, HDSSI q4h -- ON: glucoses 300s, received 6+4 lispro > 244. Increased NPH to 45U TID -- Subjective: feels similar, endorses continued headache -- Results: A1C 8.4 To do: -- continue to titrate insulin per endo recs >> added diet, 25U lispro TID with meals CURRENT MEDICATIONS Scheduled atorvastatin, 20 mg, oral, Daily carvediloL, 25 mg, oral, BID with meals (bkfst, dinner) enoxaparin, 40 mg, subcutaneous, Q12H MICHELLE insulin lispro, 1-4 Units, subcutaneous, Nightly insulin lispro, 1-7 Units, subcutaneous, TID with meals insulin lispro, 25 Units, subcutaneous, TID with meals insulin NPH, 45 Units, subcutaneous, Q8H lisinopriL, 10 mg, oral, Daily sodium chloride 0.9%, 0.5-20 mL, intra-catheter, Q8H MICHELLE Infusions PRN ??? acetaminophen ??? dextrose OR dextrose ??? glucagon ??? sodium chloride 0.9% OBJECTIVE Vital signs in last 24 hours: Temp Min: 36.3 ??C (97.3 ??F) Max: 36.8 ??C (98.2 ??F) Pulse Min: 77 Max: 99 BP Min: 132/79 Max: 189/106 Resp Min: 18 Max: 30 SpO2 Min: 95 % Max: 99 % Most Recent Vitals: Vitals Height: 200.7 cm (6' 7 ) Height Method: Stated Weight: (!) 215.5 kg (475 lb) Temp: 36.7 ??C (98.1 ??F) Temp src: Oral Pulse: 77 Resp: 18 BP: 149/90 MAP (mmHg): 90 SpO2: 98 % O2 Therapy: None (Room air) Intake/Output: Intake/Output Summary (Last 24 hours) at 12/19/2019 1159 Last data filed at 12/18/2019 1824 Gross per 24 hour Intake 1000 ml Output -- Net 1000 ml Weight change: Physical Exam: GENERAL: Alert Oriented x 3, NAD, obese HEENT:Normocephalic, NELLI, EOMI, oral mucosa dry. Neck supple, no palpable lymphadenopathy CV: regular rate and rhythm, S1/S2, no murmurs LUNGS: clear to auscultation bilaterally. ABDOMEN: positive bowel sounds, soft, non tender, non distended, no rebound or guarding, no CVA tenderness EXTREMITIES: no edema, clubbing or cyanosis, normal rom. Acanthosis noted on dorsal aspect of hands NEURO: CN intact, no FND SKIN: no lesions or rashes seen on close inspection Labs: Hematology Recent Labs Lab Units 12/19/19 0323 WBC K/cumm 5.2 HEMOGLOBIN g/dL 14.3 HEMATOCRIT % 39.2 MCV fL 80.8* PLATELETS K/cumm 252 LYMPHS PCT % 39.4 MONOS PCT % 8.5 NEUTROS PCT % 47.6 EOS PCT % 3.7 BASOS % 0.4 Chemistry Recent Labs Lab Units 12/19/19 1150 12/19/19 0727 12/19/19 0323 12/18/19 1536 SODIUM mmol/L -- -- 137 -- 131* POTASSIUM PLASMA mmol/L -- -- 3.5 -- See Comment CHLORIDE mmol/L -- -- 100 -- 93* CO2 mmol/L -- -- 26 -- 24 BUN SERUM mg/dL -- -- 17 -- 18 CREATININE mg/dL -- -- 0.82 -- 0.84 GLUCOSE mg/dL -- -- 262* -- 411* POC GLUCOSE MONITOR mg/dL 250* 224* 244* < > -- CALCIUM mg/dL -- -- 9.3 -- 9.5 ANIONGAP mmol/L -- -- 11 -- 14 < > = values in this interval not displayed. No lab exists for component: LIPASE Coagulation Urinalysis Recent Labs Lab Units 12/18/19 1536 COLOR U Straw CLARITY U Clear SPEC GRAV U 1.029* PH, URINE 6 PROTEIN UR QL 1+* GLUCOSE URQL 3+* KETONES UR Trace BLOOD UR Negative NITRITE UR Negative LEUKOCYTE ESTERASE UR 1+* Imaging: No results found. Micro: CURRENT DEVICES ASSESSMENT AND PLAN Geraldo Velez is a 23 y.o. male with PMH of recently diagnosed IDDM (A1C 6.8 11/2019, all antibodies negative), HTN, obesity (BMI > 50), metabolic syndrome, and asymmetric septal hypertrophy (last TTE 02/13/2016) presenting with hyperglycemia. # Hyperglycemia # Diabetes Last A1C 6.8 in November. Presented with glucose 494, improved to 351 with 10U regular IV and 1L NS. Patient reports good compliance with home regimen 75U U500 TID with BG 90-250 prior to past day. No clear symptoms to suggest infectious trigger. Patient with very high insulin requirements suggestive of extreme insulin resistance, in line with metabolic syndrome. -- Endocrine consulted in ED -- Insulin NPH 45U q8h -- HDSSI qachs -- Lispro 25U TID with meals ?? # HTN -- Continue coreg 25 BID, lisinopril 10 mg daily -- Unclear if on indapamide or HCTZ. Will hold for now, CTM ?? # Asymmetric septal hypertrophy Reports asymptomatic since high school. No procedures, last TTE 2016. Cardiac MR in 2018. No ROMAN. Negative genetic screen for HCM mutations in past. -- Continue coreg 25 BID ?? # Dyslipidemia Lipid panel 03/04/19: TG 1274, LDL 39, HDL 17, Cholesterol 206 -- Continue atorvastatin 20 mg ?? # NAFLD Patient with mild elevated LFTs in past with hepatic steatosis on 2018 US. F: PO E: Monitor and replace as needed. N: Adult Diet Regular, Restricted; Consistent Carbohydrate Last BM: DVT ppx: Lovenox PT/OT/DEMOLITION EXPERT: no acute needs Dispo: home once insulin/glucose stable Discharge goals: insulin regimen Electronic Signature: Roman Mascorro MD PGY1 Anesthesiology [phone] Date/Time: 12/19/2019 11:59 AM Cosigned by Frederic Higuera MD at 12/19/2019 12:10 PM CDT * Mary Bailey MD - 12/18/2019 6:08 PM CDT Brief Note: Patient chart reviewed, spoke with patient over phone. Patient was not physically seen. 23 year old male with history of T2DM with prior DKA, HTN, obesity (BMI > 50), metabolic syndrome, and hx asymmetric septal hypertrophy (last TTE 02/13/2016, follows with Dr. Walton) presenting to the ED with hyperglycemia. We are consulted for hyperglycemia. Patient was initially diagnosed with T2DM in 02/2019 after he presented to the ED with chest pain and was found to be in DKA. At that time, he was discharged on total daily dose of 270 units. Since then, he has had follow-up with Dr. Styles in the endocrine clinic. His current regimen is metformin 1,000mg BID and U-500 insulin 75 units TID. Last A1C 11/19/2019 was 6.8%. Patient denies missing any doses of insulin at home. Has noticed gradual increase in blood sugars over the past 2-3 days. Denies any changes in dietary intake. He reports increased urination and has had an episode of nausea/vomiting. He denies any diarrhea or fever. Assessment and Plan: #T2DM: A1C 6.8% in 11/2019. Now with rising blood glucose levels over the past 2-3 days. BG 494, AG 14 on admission. VBG pending. Home regimen is U500 insulin 75 units TID for total daily dose of 225 units. Patient denies missing any doses at home. This is about 1U/kg dose. Given that he is currently NPO and much of his home insulin requirement may be diet driven, will initially start NPH Q8H with reduction in dose to about 0.5U/kg. Recommendations: - start NPH 35U Q8H, may need to increase dose pending blood sugar trend - start HDSSI Q4H - okay to eat once BG <300 - Q4H glucose checks We will formally see and staff tomorrow. Thank you for allowing us to participate in the care of this patient. Recommendations have been discussed with the primary team. We will continue to follow. Please call the Diabetes Consult with any questions. Mary Bailey MD Endocrinology Fellow documented in this encounter H&P Notes * Vishnu Mascorro MD - 12/18/2019 5:06 PM CDT MEDICINE FIRM ADMISSION HISTORY & PHYSICAL Geraldo Velez : 1995 Date: 12/18/19 Chief Complaint Hyperglycemia History Geraldo Velez is a 23 y.o. male with PMH of recently diagnosed IDDM (A1C 6.8 11/2019, all antibodies negative), HTN, obesity (BMI > 50), metabolic syndrome, and asymmetric septal hypertrophy (last TTE 02/13/2016) presenting with hyperglycemia. Patient endorses polyuria, polydipsia, dry mouth, diaphoresis and nausea for the past day with home glucose checks in 500s. In past week, glucoses have been from 90-250. Reports good compliance with home regimen of 75U U500 TID, which was prescribed at recent endocrine visit 11/19/2019. He also takes metformin 1g BID. Patient was diagnosed with diabetes after DKA presentation February 2019. At time of that discharge,was on insulin regimen 80U U500 TID, 10 lispro TID, metformin 500 BID. Insulin was downtitrated to 75U TID in May 2019 after hypoglycemic episode. Denied any fever/chills, cough/congestion/sore throat, COVID contacts, abdominal pain, diarrhea, dysuria, paresthesias, leg swelling. ED Course: Vitals: HR 99, BP 189/106, T 36.8, RR 18, SpO2 99% on RA Meds: 10U regular insulin, 1L NS bolus Notable labs: glucose 411>351, Na 131, K hemolyzed, CO2 24, AG 14, Cr 0.84, UA concentrated Imaging: no imaging Review of Systems History obtained from patient Review of Systems - Review of Systems Constitutional: Positive for diaphoresis and malaise/fatigue. Negative for chills, fever and weightloss. HENT: Negative for congestion and sore throat. Eyes: Positive for blurred vision. Negative for double vision and pain. Respiratory: Negative for cough, sputum production, shortness of breath and wheezing. Cardiovascular: Negative for chest pain, palpitations, orthopnea and leg swelling. Gastrointestinal: Positive for nausea. Negative for abdominal pain, constipation, diarrhea and vomiting. Genitourinary: Positive for frequency. Negative for dysuria and urgency. Skin: Negative for rash. Neurological: Negative for dizziness, tingling, tremors, focal weakness, weakness and headaches. Endo/Heme/Allergies: Positive for polydipsia. Past Medical History Past Medical History: Diagnosis Date ??? Anxiety ??? Depression ??? Diabetes mellitus ([facility]) ??? HTN (hypertension) ??? Metabolic syndrome ??? Morbid obesity with BMI of 50.0-59.9, adult ([facility]) 07/10/2017 Past Surgical History History reviewed. No pertinent surgical history. Social History Social History Tobacco Use ??? Smoking status: Never Smoker ??? Smokeless tobacco: Current User Substance Use Topics ??? Alcohol use: Yes Alcohol/week: 24.0 standard drinks Types: 24 Cans of beer per week Comment: CAGE negative. Case per week. ??? Drug use: No Family History Family History Problem Relation Age of Onset ??? Diabetes Mother Family history of diabetes mellitus - (Added by TW Conv) ??? Obesity Mother Home Meds No current facility-administered medications on file prior to encounter. Current Outpatient Medications on File Prior to Encounter Medication Sig ??? atorvastatin (LIPITOR) 20 mg tablet Take 1 tablet (20 mg total) by mouth daily ??? blood glucose diagnostic (OneTouch Ultra Test) strip Test daily before all meals/snacks and once before bedtime. ??? blood-glucose meter kit 1 kit once for 1 dose Patient needs in room for diabetes education ??? carvedilol (COREG) 25 mg tablet Take 1 tablet (25 mg total) by mouth 2 (two) times a day with meals ??? glucagon 1 mg injection ??? indapamide (LOZOL) 2.5 mg tablet Take 1 tablet (2.5 mg total) by mouth every morning ??? insulin regular U-500 (HumuLIN R U-500, Conc, Kwikpen) 500 unit/mL (3 mL) CONCENTRATED injection Inject 75 units three times daily with meals for a week, then inject 70 units three times daily. ??? lancets [facility] [place] Patient needs in room for diabetes education ??? lisinopril (PRINIVIL,ZESTRIL) 5 mg tablet Take 2 tablets (10 mg total) by mouth daily ??? metFORMIN (GLUCOPHAGE) 500 mg tablet Take 2 tablets (1,000 mg total) by mouth 2 (two) times a day with meals ??? OneTouch Delica Plus Lancet 33 gauge misc ??? pen needle, diabetic (BD ULTRA-FINE RADHA PEN NEEDLE) 32 gauge x 5/32 needle Use to inject insulin BG three times a day as instructed ??? [DISCONTINUED] insulin lispro (HumaLOG) 100 unit/mL injection Inject 10 Units under the skin 3 (three) times a day with meals (Patient not taking: Reported on 11/19/2019) Allergies No Known Allergies Physical Examination Vital signs in last 24 hours: Temp Min: 36.8 ??C (98.2 ??F) Max: 36.8 ??C (98.2 ??F) Pulse Min: 90 Max: 99 BP Min: 135/84 Max: 189/106 Resp Min: 18 Max: 24 SpO2 Min: 96 % Max: 99 % Most Recent Vitals: Vitals Height: 200.7 cm (6' 7 ) Height Method: Stated Weight: (!) 215.5 kg (475 lb) Temp: 36.8 ??C (98.2 ??F) Temp src: Oral Pulse: 96 Resp: 18 BP: 155/87 MAP (mmHg): 106 SpO2: 96 % O2 Therapy: None (Room air)( Intake/Output Summary (Last 24 hours) at 12/18/20192001 Last data filed at 12/18/2019 1824 Gross per 24 hour Intake 1000 ml Output -- Net 1000 ml Physical Exam: GENERAL: Alert Oriented x 3, NAD, obese HEENT:Normocephalic, NELLI, EOMI, oral mucosa dry. Neck supple, no palpable lymphadenopathy CV: regular rate and rhythm, S1/S2, no murmurs LUNGS: clear to auscultation bilaterally. ABDOMEN: positive bowel sounds, soft, non tender, non distended, no rebound or guarding, no CVA tenderness EXTREMITIES: no edema, clubbing or cyanosis, normal rom. Acanthosis noted on dorsal aspect of hands NEURO: CN intact, no FND SKIN: no lesions or rashes seen on close inspection Results/Diagnostic Studies Hematology Chemistry Recent Labs Lab Units 12/18/19 1926 12/18/19 1743 12/18/19 1536 SODIUM mmol/L -- -- 131* POTASSIUM PLASMA mmol/L -- -- See Comment CHLORIDE mmol/L -- -- 93* CO2 mmol/L -- -- 24 BUN SERUM mg/dL -- -- 18 CREATININE mg/dL -- -- 0.84 GLUCOSE mg/dL -- -- 411* POC GLUCOSE MONITOR mg/dL 291* 351* -- CALCIUM mg/dL -- -- 9.5 ANIONGAP mmol/L -- -- 14 No lab exists for component: LIPASE Coagulation Urinalysis Recent Labs Lab Units 12/18/19 1536 COLOR U Straw CLARITY U Clear SPEC GRAV U 1.029* PH, URINE 6 PROTEIN UR QL 1+* GLUCOSE URQL 3+* KETONES UR Trace BLOOD UR Negative NITRITE UR Negative LEUKOCYTE ESTERASE UR 1+* Imaging No results found. CURRENT DEVICES Assessment and Plan Geraldo Velez is a 23 y.o. male with PMH of recently diagnosed IDDM (A1C 6.8 11/2019, all antibodies negative), HTN, obesity (BMI > 50), metabolic syndrome, and asymmetric septal hypertrophy (last TTE 02/13/2016) presenting with hyperglycemia. # Hyperglycemia # Diabetes Last A1C 6.8 in November. Presented with glucose 494, improved to 351 with 10U regular IV and 1L NS. Patient reports good compliance with home regimen 75U U500 TID with BG 90-250 prior to past day. No clear symptoms to suggest infectious trigger. Patient with very high insulin requirements suggestive of extreme insulin resistance, in line with metabolic syndrome. -- Endocrine consulted in ED -- Insulin NPH 35U q8h -- HDSSI q4h # HTN -- Continue coreg 25 BID, lisinopril 10 mg daily -- Unclear if on indapamide or HCTZ. Will hold for now, CTM # Asymmetric septal hypertrophy Reports asymptomatic since high school. No procedures, last TTE 2015. Cardiac MR in 2018. No ROMAN. Negative genetic screen for HCM mutations in past. -- Continue coreg 25 BID # Dyslipidemia Lipid panel 03/04/19: TG 1274, LDL 39, HDL 17, Cholesterol 206 -- Continue atorvastatin 20 mg # NAFLD Patient with mild elevated LFTs in past with hepatic steatosis on 2018 US. F PO E Monitor and replace as needed. N NPO Diet Ice chips, Other (specify); water GI PPx Heme PPx Lovenox Dispo 1) Admit to Medicine 2) Discharge goals: insulin regimen stable Code Prior Contact Extended Emergency Contact Information Primary Emergency Contact: Leatha Velez [facility] Relation: Mother PCP Jann Burrows MD Electronic Signature: Roman Mascorro MD PGY1 Anesthesiology [phone] Date/Time: 12/18/2019 8:02 PM Cosigned by Frederic Higuera MD at 12/19/2019 11:44 AM CDT Associated attestation - Frederic Higuera MD - 12/19/2019 11:44 AM CDT I have seen and examined the patient on 12/19/19. I agree with the findings and plan of care as documented in the resident's/fellow's note. and as discussed with the resident/fellow. 23 year old withIDDM, obesity, HTN here with polyuria/polydipsia and poor glycemic control. Appreciate endocrine input re: insulin regimen. documented in this encounter Consult Notes * Mary Bailey MD - 12/19/2019 1:30 PM CDTAssociated Order(s): IP CONSULT TO ENDOCRINOLOGY Endocrinology & Diabetes Consult Note Patient: Geraldo Velez, 23 y.o. male (: 1995) Room: [place] [id number] ( ) LOS: 1 Consult Question: Type 2 diabetes (Requesting Provider: Frederic Higuera, *) Geraldo Velez is a 23 y.o. male with history of T2DM with prior DKA, HTN, obesity (BMI >??50), metabolic syndrome, and hx asymmetric septal hypertrophy (last TTE 02/13/2016, follows with Dr. Walton) presenting to the ED with hyperglycemia. We are consulted for hyperglycemia. HPI Patient was initially diagnosed with T2DM in 02/2019 after he presented to the ED with chest pain and was found to be in DKA. At that time, he was discharged on total daily dose of 270 units. Patient states that he was initially on U500 insulin 90 units t.i.d. as well as Humalog 10 units with meals. He then had a hospitalization for hypoglycemia in July 2019 and subsequently had his insulin doses decreased. He reports being off of Humalog since August. ?? Since then, he has had follow-up with Dr. Styles in the endocrine clinic. His current regimen is metformin 1,000mg BID and U-500 insulin 75 units TID. Last A1C 11/19/2019 was 6.8%.Now 8.4%. ?? Patient denies missing any doses of insulin at home. Has noticed gradual increase in blood sugars over the past 2-3 days. Denies any changes in dietary intake. He reports increased urination and has had an episode of nausea/vomiting. He denies any diarrhea or fever. Diet: Adult Diet Regular, Restricted; Consistent Carbohydrate Recent Labs Lab Units 12/19/19 1150 12/19/19 0727 12/19/19 0323 12/19/19 0041 12/19/19 0032 12/18/19 2301 12/18/19 2109 12/18/19 1926 12/18/19 1743 GLUCOSE mg/dL -- -- 262* -- -- -- -- -- -- POC GLUCOSE MONITOR mg/dL 250* 224* 244* 319* 317* 348* 406* 291* 351* Lab Results Component Value Date HGBA1C 8.4 (H) 12/19/2019 His home medications including his diabetes regimen were reviewed and are included below. PMH / PSH Past Medical History: Diagnosis Date ??? Anxiety ??? Depression ??? Diabetes mellitus (CMS/[facility]) ??? HTN (hypertension) ??? Metabolic syndrome ??? Morbid obesity with BMI of 50.0-59.9, adult (CMS/HCC) 07/10/2017 History reviewed. No pertinent surgical history. Social & Family History Social History Tobacco Use ??? Smoking status: Never Smoker ??? Smokeless tobacco: Current User Substance and Sexual Activity ??? Alcohol use: Yes Alcohol/week: 24.0 standard drinks Types: 24 Cans of beer per week Comment: CAGE negative. Case per week. ??? Drug use: No ??? Sexual activity: Defer Family History Problem Relation Age of Onset ??? Diabetes Mother Family history of diabetes mellitus - (Added by TW Conv) ??? Obesity Mother Review of Systems Twelve point ROS reviewed and negative except as noted in HPI. All other systems negative. Vitals & Physical Exam Temp: [36.6 ??C (97.9 ??F)-36.7 ??C (98.1 ??F)] 36.6 ??C (97.9 ??F) Pulse: [74-78] 74 BP: (132-153)/(79-90) 153/84 Resp: [18-20] 20 SpO2: [98 %-99 %] 99 % Body mass index is 53.51 kg/m??. No intake/output data recorded. Physical Exam Gen : no acute distress, alert, appropriate, cooperative, appears stated age, well-developed, well-nourished, male HENT : normocephalic, atraumatic, moist mucus membranes Eyes : conjunctiva clear, anicteric, no proptosis/exophthalmos/lid lag, EOMI Pulm : clear to auscultation in anterior [place], non-labored, on room air CV : regular rate & rhythm, no murmurs/rubs/gallops, no JVD Abd : obese, soft, non-tender, non-distended, normoactive bowel sounds Extr : atraumatic, ingrown toe-nails on first toe of both feet with mild surrounding erythema, otherwise no sores/ulcerations on rest of feet Skin : turgor normal, no rashes/wounds/lesions Neuro : alert, speech fluent, comprehension intact, moving all extremities, sensation intact to light touch in both feet Psych : cooperative, appropriate affect & mood, good insight & judgment Data Medications, labs, imaging, and diagnostics independently reviewed in Epic and commented on below. Allergies: Patient has no known allergies. HOME MEDICATIONS : atorvastatin (LIPITOR) 20 mg tablet blood glucose diagnostic (OneTouch Ultra Test) strip blood-glucose meter kit carvedilol (COREG) 25 mg tablet glucagon 1 mg injection indapamide (LOZOL) 2.5 mg tablet insulin regular U-500 (HumuLIN R U-500, Conc, Kwikpen) 500 unit/mL (3 mL) CONCENTRATED injection lancets misc lisinopril (PRINIVIL,ZESTRIL) 5 mg tablet metFORMIN (GLUCOPHAGE) 500 mg tablet OneTouch Delica Plus Lancet 33 gauge misc pen needle, diabetic (BD ULTRA-FINE RADHA PEN NEEDLE) 32 gauge x 5/32 needle Chemistry Lab Results Component Value Date SODIUM 137 12/19/2019 POTASSIUM 3.5 12/19/2019 CHLORIDE 100 12/19/2019 CO2 26 12/19/2019 ANIONGAP 11 12/19/2019 BUNSER 17 12/19/2019 CREATININE 0.82 12/19/2019 GLUCOSE 250 (H) 12/19/2019 GLUCOSE 262 (H) 12/19/2019 CALCIUM 9.3 12/19/2019 Lab Results Component Value Date HGBA1C 8.4 (H) 12/19/2019 Lab Results Component Value Date TSH 2.56 09/06/2017 Lab Results Component Value Date CHOL 175 12/19/2019 TRIG 785 (H) 12/19/2019 HDL 22 (L) 12/19/2019 LDLCALC See Comment 12/19/2019 LDLDIRECT 60 12/19/2019 Lab Results Component Value Date 25HYDROVITD 16 (L) 09/06/2017 [id number] 0.00 03/04/2019 Assessment & Plan # Type 2 diabetes, with detention use of insulin, complicated by hyperglycemia. A1C 6.8% in 11/2019. Now 8.4%. Now with rising blood glucose levels over the past 2-3 days. BG 494, AG 14 on admission. VBG pending. Home regimen is U500 insulin 75 units TID for total daily dose of 225 units. Patient denies missing any doses at home. This is about 1U/kg dose. Given that he is currently NPO and much of his home insulin requirement may be diet driven, initially started NPH 35 Q8H wh ich was inadequate basal dose, then increased to 45U Q8H which is holding BG steady, though still above goal. Recommendations: - continue NPH 45U Q8H - start Humalog 25 units TID AC - HDSSI + qHS + 2am - Carb consistent diet - IF he has severe hyperglycemia (>300), use the hyperglycemia urgency order set (make NPO, give10 units of IV insulin, re-check in 1 hour) Discharge recommendations: - Likely U500 TID, final doses to be determined - continue metformin # Mixed hyperlipidemia: His diabetes and elevated cholesterol are indications for statin therapy. - continue atorvastatin 20mg daily # Essential Hypertension: MARIFER/ARB use in diabetics can prevent the progression of renal disease. -continue lisinopril 10mg daily # Obesity: This complicates all aspects of his care, predisposing him to hyperglycemia and increasing his insulin requirements. - Recommend GLP-1 (e.g. Trulicity 0.75 mg qWeek) on discharge if covered by insurance ## Discharge Planning - f/u with Dr. Styles in endocrine clinic -- Mary Bailey MD Clinical Fellow Endocrinology, Metabolism, & Lipid Research Contact Info: New Consults: [phone]) General Endocrine (Non-Diabetes): [phone] (Check 'Treatment Team' assignment for Diabetes 1 vs 2 vs 3) Diabetes 1: Diabetes Fellow: [phone] Diabetes 2: Nita Arias, BUSINESS PROJECT MANAGER: [phone] Diabetes 3: See Treatment Team Provider (or call Nita Arias, above) Diabetes After-Hours & Weekends: Diabetes Fellow Cosigned by Aniay Mancia MD at 12/19/2019 4:04 PM CDT Associated attestation - Aniya Mancia MD - 12/19/2019 4:04 PM CDT I have seen and examined the patient on 12/19/19. I agree with the findings and plan of care as documented in the resident's/fellow's note.. Aniya Mancia MD documented in this encounter Nursing Notes * Lynne Sanderson RN - 12/21/2019 12:15 PM CDT Pt stable and ready for discharge. AVS reviewed and signed by patient. Pt verbalized understanding and medication education. Pt VSS, BG 194, received insulin. Pt to be discharged home via car. All belongings returned. documented in this encounter ED Notes * Dionna Mcpherson MD - 12/18/2019 1:57 PM CDT HPI Chief Complaint Patient presents with ??? Hyperglycemia Geraldo Velez is a 23 y.o. male with history of recently diagnosed IDDM presenting with chief complaint of hyperglycemia. He reports increased urination, headaches, intermittent vision blurring,nausea with persistently elevated BGs for the past two days of > 500. He is compliant with insulin and is on 90 units of humalog TID (no long acting). He denies any recent infectious symptoms suchas fevers/chills, vomiting, diarrhea, dysuria. He went to an urgent care this AM and was told he might have had a UTI. He denies any other complaints aside from ingrown toe nails which is a recurringproblem for him (he does note some erythema and discharge from his nails). Patient History Patient Active Problem List Diagnosis Date Noted ??? Hyperglycemia 12/18/2019 ??? Acanthosis nigricans 03/19/2019 ??? Type 2 diabetes mellitus with ketoacidosis, without long-term current use of insulin ([facility]) 03/19/2019 ??? Weight loss counseling, encounter for 10/13/2017 ??? Metabolic syndrome 10/13/2017 ??? Fatty liver 10/13/2017 ??? Disordered sleep 10/13/2017 ??? Morbid obesity with BMI of 50.0-59.9, adult ([facility]) 07/10/2017 ??? Low HDL (under 40) 07/10/2017 ??? Asymmetric septal hypertrophy ([facility]/HCC) 02/10/2016 ??? Essential hypertension 03/16/2010 Past Medical History: Diagnosis Date ??? Anxiety ??? Depression ??? Diabetes mellitus (CMS/HCC) ??? HTN (hypertension) ??? Metabolic syndrome ??? Morbid obesity with BMI of 50.0-59.9, adult ([facility]) 07/10/2017 History reviewed. No pertinent surgical history. Family History Problem Relation Age of Onset ??? Diabetes Mother Family history of diabetes mellitus - (Added by TW Conv) ??? Obesity Mother Social History Tobacco Use ??? Smoking status: Never Smoker ??? Smokeless tobacco: Current User Substance Use Topics ??? Alcohol use: Yes Alcohol/week: 24.0 standard drinks Types: 24 Cans of beer per week Comment: CAGE negative. Case per week. ??? Drug use: No Social History Social History Narrative Non-smoker : (Added by TW Conv) Non-smoker : (Added by TW Conv) Review of Systems Review of Systems Constitutional: Negative for chills and fever. HENT: Negative for rhinorrhea and sore throat. Eyes: Negative for visual disturbance. Respiratory: Negative for cough and shortness of breath. Cardiovascular: Negative for chest pain and palpitations. Gastrointestinal: Positive for nausea. Negative for abdominal pain, constipation, diarrhea and vomiting. Genitourinary: Negative for dysuria and hematuria. + increased urination Musculoskeletal: Negative for back pain. Skin: Negative for rash. Neurological: Positive for headaches. Negative for light-headedness. All other systems reviewed and are negative. Physical Exam ED Triage Vitals Temp Pulse Resp BP SpO2 12/18/19 1321 12/18/19 1321 12/18/19 1321 12/18/19 1321 12/18/19 1321 36.8 ??C (98.2 ??F) 99 18 (!) 189/106 99 % Temp src Heart Rate Source Patient Position BP Location FiO2 (%) 12/18/19 1321 12/18/19 2341 12/18/19 2341 12/18/19 2341 -- Oral Monitor Sitting Left arm Physical Exam Vitals signs and nursing note reviewed. Constitutional: Appearance: He is well-developed. He is obese. HENT: Head: Normocephalic and atraumatic. Eyes: Conjunctiva/sclera: Conjunctivae normal. Neck: Musculoskeletal: Neck supple. Cardiovascular: Rate and Rhythm: Normal rate and regular rhythm. Heart sounds: Normal heart sounds. No murmur. Pulmonary: Effort: Pulmonary effort is normal. No respiratory distress. Breath sounds: Normal breath sounds. Abdominal: Palpations: Abdomen is soft. Tenderness: There is no abdominal tenderness. There is no guarding or rebound. Musculoskeletal: Right lower leg: No edema. Left lower leg: No edema. Skin: General: Skin is warm and dry. Comments: + bilateral big toes with surrounding erythema, small amounts of discharge from nails (patient reports always look like this Neurological: Mental Status: He is alert and oriented to person, place, and time. MDM MDM: Assessment: Geraldo Velez is a 23 y.o.-old male with history of recently diagnosed IDDM presenting with chief complaint of hyperglycemia. Physical exam as above. Ddx: symptomatic hyperglycemia, DKA, UTI precipitating hyperglycemia, Plan: 1) Labs: BMP, CBC, VBG, POCT Glucose, ketones, UA 2) Imaging: N/A 3) Interventions: #Hyperglycemia - 1 L IVF, 10 units IV regular insulin to start - Per chart review, patient extremely insulin resistant, may need admission for endocrine to edgar uphis insulin regimen and possibly start long acting if unable to control down here 4) Dispo pending results and clinical course- anticipate possible admission Attending Summary of Care ED Course as of Dec 18 1737 Time: 12/17 6304 Comment: After BMP results will call endo Re: pt not on long acting insulin. Will see if he should be admitted to short stay By: Anna Shaffer MD Time: 12/17 1636 Value: Potassium, pl: See Comment Comment: Will re order By: Anna Shaffer MD Time: 12/17 5190 Comment: Endo aware of pt. Signed out to medicine. By: Anna Shaffer MD Time: 12/17 1852 Comment: Medicine wants endo recs to start here - 35 units NPH Q 8hrs. This will be ordered By: Anna Shaffer MD Time: 12/18 1855 Value: Potassium, bld: 3.8 Comment: (Reviewed) By: Anna Shaffer MD Time: 12/17 2134 Value: Glucose, POC(!): 406 Comment: Giving more insulin By: Anna Shaffer MD Time: 12/17 2309 Comment: BG improved - will send upstairs. Endo wants NPH to be up to 45 By: Anna Shaffer MD Hyperglycemia Nausea Frequency of urination and polyuria Dionna Mcpherson MD Resident 12/18/19 1604 Dionna Mcpherson MD Resident 12/19/19 1738 Cosigned by China Magana MD at 12/21/2019 2:52 PM CDT Associated attestation - China White MD - 12/21/2019 2:52 PM CDT I have seen and examined the patient on 12/18/2019 . I agree with the findings and plan of care as documented in the resident's note. * Chemo Youssef RN - 12/18/2019 1:46 PM CDT Bed: ED1-10 Expected date: Expected time: Means of arrival: Ambulance Comments: Chemo Youssef RN 12/18/19 7276 * Chemo Youssef RN - 12/18/2019 1:22 PM CDT Pt presents to ed c/o hyperglycemia. Pt states that his blood sugar was reading high. Pt stats thathe has been having increased thirst and urination. Pt states that he went to an UC and was told that he had a UTI. Pt states that he was d/c with antibiotics but hasn't gotten it filled yet. Pt states that he has been taking his insulin as prescribed. documented in this encounter Miscellaneous Notes * Plan of Care - Lynne Sanderson RN - 12/21/2019 12:00 PM CDT Goals: Clinical Goals for the Shift: Pt will have stable BG's Summary: patient's VSS, BG's less than 200. Pt stable and ready for discharge. * Plan of Care - Eugenie Angeles RN - 12/21/2019 11:38 AM CDT Message sent to PCP clinic to schedule f/u appointment. CM will continue to follow patient during stay. If needed feel free to contact at [phone] * Medical Student - Ochoa Jeremiah - 12/21/2019 11:13 AM CDT MEDICINE FIRM DAILY PROGRESS NOTE Name: Geraldo Velez Date of Admission: 12/18/2019 Length of Stay: 3 day(s) Bed: [id number] Subjective Chief Complaint: hyperglycemia Patient Summary: Geraldo Velez is a 23 y.o. male with a history of type 2 DM, obesity (BMI >50), asymmetric septal hypertrophy (last TTE in 2015, follows with Dr. Walton) and HTN who presents with symptomatic hyperglycemia, admitted for optimization of his insulin regimen. Interval History: Patient eager to leave the hospital today. He says he has been doing well and is asymptomatic. Notes that he was told his nail infection would be treated while he was in the ED, but he hasn't received anything yet. Endocrine following. Objective Vitals: 24hr Min/Max: Temp Min: 36.5 ??C (97.7 ??F) Max: 36.6 ??C (97.9 ??F) Pulse Min: 71 Max: 81 BP Min: 133/59 Max: 156/95 Resp Min: 20 Max: 20 SpO2 Min: 98 % Max: 100 % Most Recent : Vitals: 12/21/19 0750 BP: 151/82 Pulse: 72 Resp: 20 Temp: 36.6 ??C (97.9 ??F) SpO2: 98% No intake or output data in the 24 hours ending 12/21/19 1113 Latest weight: (!) 215.5 kg (475 lb) Physical Exam Constitutional: Obese, Well-developed, and in no distress HEENT: MMM, no oropharyngeal lesions; hearing grossly intact, Normal conjunctiva, no scleral icterus, EOMI Neck: Supple, no JVD present. Cardiovascular: Normal rate, regular rhythm, S1/S2 normal. No murmurs or extra heart sounds. Pulmonary/Chest: Clear to auscultation bilaterally. Normal respiratory effort. No wheezes or rales. Abdominal: Limited by body habitus but Soft, normoactive bowel sounds; Non- tender, non-distended; No guarding or rebound present. Musculoskeletal: No lower extremity edema, cyanosis, clubbing Neurological: A&O x3 to person, place, and time; CN II-XII grossly intact Skin: Skin is warm and dry. Cap refill <2 seconds. Erythematous swollen big toes (L and R) around the nail. No drainage or fluctuance. Psychiatric: Mood and affect normal. Medications Scheduled Meds:atorvastatin, 20 mg, oral, Daily carvediloL, 25 mg, oral, BID with meals (bkfst, dinner) enoxaparin, 40 mg, subcutaneous, Q12H MICHELLE insulin lispro, 1-4 Units, subcutaneous, Nightly insulin lispro, 1-4 Units, subcutaneous, Q24H insulin lispro, 1-7 Units, subcutaneous, TID with meals insulin lispro, 30 Units, subcutaneous, TID with meals insulin NPH, 55 Units, subcutaneous, Q8H lisinopriL, 20 mg, oral, Daily sodium chloride 0.9%, 0.5-20 mL, intra-catheter, Q8H MICHELLE Continuous Infusions: PRN Meds:.??? acetaminophen ??? dextrose OR dextrose ??? glucagon ??? sodium chloride 0.9% Labs Recent Results (from the past 24 hour(s)) POCT glucose Collection Time: 12/20/19 11:30 AM Result Value Ref Range Glucose, POC 229 (H) 70 - 199 mg/dL POCT glucose Collection Time: 12/20/19 5:15 PM Result Value Ref Range Glucose, POC 114 70 - 199 mg/dL POCT glucose Collection Time: 12/20/19 9:41 PM Result Value Ref Range Glucose, POC 131 70 - 199 mg/dL POCT glucose Collection Time: 12/21/19 2:50 AM Result Value Ref Range Glucose, POC 174 70 - 199 mg/dL POCT glucose Collection Time: 12/21/19 7:55 AM Result Value Ref Range Glucose, POC 196 70 - 199 mg/dL Recent Labs Lab Units 12/21/19 7695 12/19/19 0323 SODIUM mmol/L -- -- 137 POTASSIUM PLASMA mmol/L -- -- 3.5 CHLORIDE mmol/L -- -- 100 CO2 mmol/L -- -- 26 ANIONGAP mmol/L -- -- 11 GLUCOSE mg/dL -- -- 262* POC GLUCOSE MONITOR mg/dL 196 < > 244* BUN SERUM mg/dL -- -- 17 CREATININE mg/dL -- -- 0.82 CALCIUM mg/dL -- -- 9.3 < > = values in this interval not displayed. Recent Labs Lab Units 12/19/19 0323 WBC K/cumm 5.2 HEMOGLOBIN g/dL 14.3 HEMATOCRIT % 39.2 PLATELETS K/cumm 252 NEUTROS PCT % 47.6 LYMPHS PCT % 39.4 MONOS PCT % 8.5 EOS PCT % 3.7 Imaging XR Chest Pa Lateral 2 Vw Narrative: EXAMINATION: 2 view chest radiograph Impression: Comparison made to exam dated 06/17/2017. Lung volumes are small. The lungs are clear, no edema or pneumonia. No pneumothorax or pleural effusion. The cardiomediastinal silhouette is normal. Dictated by: Wilder Marques The radiology attending physician has personally reviewed this study, and had reviewed and/or edited this written report and agrees with it. Electronically signed by: Glenn Martinez M.D. I have reviewed all imaging studies. Assessment and Plan Impression: Geraldo Velez is a 23 y.o. male with a history of type 2 DM, obesity (BMI >50),asymmetric septal hypertrophy (last TTE in 2016, follows with Dr. Walton) and HTN who presents with symptomatic hyperglycemia, admitted for optimization of his insulin regimen. #Hyperglycemia BG on admission 494. Symptomatic with polyuria, polydipsia, nausea and some vision changes. He takes his BG 3 times a day before meals. They have been fluctuating between 90-200's the last week, in the 500's night prior to admission. Compliant with medication regimen. He received 1 L IVF, 10 units IV regular insulin. Negative for ketones in his blood and urine. 1+ leukocyte esterase, 1+ protein, and 3+ glucose on UA. Plan for discharge today. - F/u on endocrinology recs for discharge recommendations: - U500 85U q8h - Humalog 10U TID AC - This is a TDD of 285 units, slightly less than his most recent requirements here - continue metformin ?? #T2DM Follow with Dr. Styles in endocrinology here at [facility]. Per chart review patient is extremely insulinresistant. Diabetes regimen of metformin 1000 BID and 75U U500 TID. He takes his BG 3 times a day before meals. They have been fluctuating between 90-200's the last week. -Glucose control per Endocrinology team as above ?? #Paronychia Bilateral inflamed big toes around the nails. Has an appointment with podiatry in February. Has tried neosporin with no response. - Topical mupirocin and betadine #HTN 189/106 on admission, down to 155/87 a few hours later. Took his medicines this morning. -Continue home carvedilol -Continue home lisinopril ?? #HLD -Continue home statin ?? #Asymetric Septal Hypertrophy Follows with Dr. Walton in cardiology. Has not been symptomatic since [facility] he says. Last TTE was in 2015. - continue coreg ?? #Obesity (BMI>50) Continued weight loss discussions. Jeremiah Ochoa [id number] 12/21/19 11:13 AM Cosigned by Zaire So MD PhD at 12/21/2019 2:15 PM CDT * Hospital Course - Vishnu Mascorro MD - 12/21/2019 9:33 AM CDT Geraldo Velez is a 23 y.o. male with PMH of recently diagnosed IDDM (A1C 6.8 11/2019, all antibodies negative), HTN, obesity (BMI > 50), metabolic syndrome, and asymmetric septal hypertrophy (last TTE 02/13/2016) presenting with hyperglycemia. Patient endorses polyuria, polydipsia, dry mouth, diaphoresis and nausea for the past day with home glucose checks in 500s. In past week, glucoses have been from 90-250. Reports good compliance with home regimen of 75U U500 TID, which was prescribed at recent endocrine visit 11/19/2019. He also takes metformin 1g BID. Patient was diagnosed with diabetes after DKA presentation February 2019. At time of that discharge,was on insulin regimen 80U U500 TID, 10 lispro TID, metformin 500 BID. Insulin was downtitrated to 75U TID in May 2019 after hypoglycemic episode. Denied any fever/chills, cough/congestion/sore throat, COVID contacts, abdominal pain, diarrhea, dysuria, paresthesias, leg swelling. ED Course: Vitals: HR 99, BP 189/106, T 36.8, RR 18, SpO2 99% on RA Meds: 10U regular insulin, 1L NS bolus Notable labs: glucose 411>351, Na 131, K hemolyzed, CO2 24, AG 14, Cr 0.84, UA concentrated Imaging: no imaging # Hyperglycemia # Diabetes Last A1C 6.8 in November. Presented with glucose 494, improved to 351 with 10U regular IV and 1L NS. Patient reports good compliance with home regimen 75U U500 TID with BG 90-250 prior to past day. No clear symptoms to suggest infectious trigger. Patient with very high insulin requirements suggestive of extreme insulin resistance, in line with metabolic syndrome. -- A1C 8.4 this admission -- Endocrine following Inpatient insulin titrated to: Insulin NPH 55U q8h. Lispro 30U TID with meals. HDSSI qachs. TDD in 24 hours prior to discharge -- Discharge plan: 85U U500 NPH TID with 10U lispro TID with meals continue metformin 1g BID. Trulicity requires prior auth so was deferred to outpatient setting # HTN -- Continue coreg 25 BID -- Increased lisinopril to 20 mg daily -- Unclear if on indapamide or HCTZ. Will hold for now, CTM # Paronychia Bilateral inflamed big toes around the nails. Has an appointment with podiatry in February. Has tried neosporin with no response. - Topical mupirocin and betadine # Asymmetric septal hypertrophy Reports asymptomatic since high school. No procedures, last TTE 2015. Cardiac MR in 2018. No ROMAN. Negative genetic screen for HCM mutations in past. -- Continue coreg 25 BID # Dyslipidemia Lipid panel 03/04/19: TG 1274, LDL 39, HDL 17, Cholesterol 206 -- Continue atorvastatin 20 mg # NAFLD Patient with mild elevated LFTs in past with hepatic steatosis on 2018 US. * Plan of Care - Priscila Martinez RN - 12/21/2019 3:42 AM CDT Problem: Health Behavior: Goal: Understanding of discharge needs will improve 12/21/2019 034 by Priscila Martinez RN Outcome: Progressing 12/21/2019341 by Priscila Martinez RN Outcome: Progressing Goals: Clinical Goals for the Shift: pt bs will remain stable this shift Summary: pt bs remained stable this shift * Plan of Care - Emily Byrd RN - 12/20/2019 5:49 PM CDT Goals: Clinical Goals for the Shift: Patient will have blood sugar <300 this shift Summary: patients blood sugar continues to downtrend requiring no sliding scale at dinner. Will continue to monitor * Plan of Care - Priscila Martinez RN - 12/20/2019 6:56 AM CDT Problem: Health Behavior: Goal: Understanding of discharge needs will improve Outcome: Progressing Problem: Lack of Knowledge: Goal: Ability to describe self-care measures that may prevent or decrease complications will improve Outcome: Progressing Goal: Knowledge of disease or condition will improve Outcome: Progressing Goal: Knowledge of the prescribed therapeutic regimen will improve Outcome: Progressing Problem: Fluid Volume: Goal: Ability to maintain a balanced intake and output will improve Outcome: Progressing Problem: Nutritional: Goal: Maintenance of adequate nutrition will improve Outcome: Progressing Problem: Skin Integrity: Goal: Risk for impaired skin integrity will decrease Outcome: Progressing Goals: Clinical Goals for the Shift: pt will maintain stable bs this shift Summary: pt bs maintained this shift * Plan of Care - Emily Byrd RN - 12/19/2019 4:48 PM CDT Goals: Clinical Goals for the Shift: Patient will have blood sugar <300 this shift Summary: patient had blood sugars <300, diet order resumed will continue to monitor Problem: Health Behavior: Goal: Understanding of discharge needs will improve 12/19/2019 164 by Emily Byrd RN Outcome: Progressing 12/19/2019 120 by Emily Byrd RN Outcome: Progressing Problem: Lack of Knowledge: Goal: Ability to describe self-care measures that may prevent or decrease complications will improve 12/19/2019 164 by Emily Byrd RN Outcome: Progressing 12/19/2019 1207 by Emily Byrd RN Outcome: Progressing Goal: Knowledge of disease or condition will improve 12/19/2019 164 by Emily Byrd RN Outcome: Progressing 12/19/2019 1207 by Emily Byrd RN Outcome: Progressing Goal: Knowledge of the prescribed therapeutic regimen will improve 12/19/2019 1647 by Emily Byrd RN Outcome: Progressing 12/19/2019 1207 by Emily Byrd RN Outcome: Progressing Problem: Lack of Knowledge: Goal: Knowledge of disease or condition will improve 12/19/2019 1647 by Emily Byrd RN Outcome: Progressing 12/19/2019 1207 by Emily Byrd RN Outcome: Progressing Problem: Fluid Volume: Goal: Ability to maintain a balanced intake and output will improve 12/19/2019 1647 by Emily Byrd RN Outcome: Progressing 12/19/2019 1207 by Emily Byrd RN Outcome: Progressing Problem: Nutritional: Goal: Maintenance of adequate nutrition will improve 12/19/2019 1647 by Emily Byrd RN Outcome: Progressing 12/19/2019 1207 by Emily Byrd RN Outcome: Progressing Problem: Skin Integrity: Goal: Risk for impaired skin integrity will decrease 12/19/2019 1647 by Emily Byrd RN Outcome: Progressing 12/19/2019 1207 by Emily Byrd RN Outcome: Progressing * Medical Student - Jeremiah Ochoa - 12/19/2019 10:35 AM CDT MEDICINE [employer] DAILY PROGRESS NOTE Name: Geraldo Velez Date of Admission: 12/18/2019 Length of Stay: 1 day(s) Bed: [id number] Subjective Chief Complaint: hyperglycemia Patient Summary: Geraldo Velez is a 23 y.o. male with a history of type 2 DM, obesity (BMI >50), asymmetric septal hypertrophy (last TTE in 2015, follows with Dr. Walton) and HTN who presents with symptomatic hyperglycemia, admitted for optimization of his insulin regimen. Interval History: Patient moved to the floor last night. He describes some bifrontal throbbing headache that is the same as last night. Also has some nausea. No abd pain, vision changes, vomiting, polyuria. Endocrine following. Objective Vitals: 24hr Min/Max: Temp Min: 36.3 ??C (97.3 ??F) Max: 36.8 ??C (98.2 ??F) Pulse Min: 77 Max: 99 BP Min: 132/79 Max: 189/106 Resp Min: 18 Max: 30 SpO2 Min: 95 % Max: 99 % Most Recent : Vitals: 12/19/19 0839 BP: 149/90 Pulse: 77 Resp: Temp: SpO2: Intake/Output Summary (Last 24 hours) at 12/19/2019 1035 Last data filed at 12/18/2019 1824 Gross per 24 hour Intake 1000 ml Output -- Net 1000 ml Latest weight: (!) 215.5 kg (475 lb) Physical Exam Constitutional: Well-developed, well-nourished, and in no distress HEENT: MMM, no oropharyngeal lesions; hearing grossly intact, Normal conjunctiva, no scleral icterus, EOMI Neck: Supple, no JVD present. Cardiovascular: Normal rate, regular rhythm, S1/S2 normal. No murmurs or extra heart sounds. Pulmonary/Chest: Clear to auscultation bilaterally. Normal respiratory effort. No wheezes or rales. Abdominal: Soft, normoactive bowel sounds; Non-tender, non-distended; No guarding or rebound present. Musculoskeletal: No lower extremity edema, cyanosis, clubbing Neurological: A&O x3 to person, place, and time; CN II-XII grossly intact Skin: Skin is warm and dry. Cap refill <2 seconds. Psychiatric: Mood and affect normal. Medications Scheduled Meds:atorvastatin, 20 mg, oral, Daily carvediloL, 25 mg, oral, BID with meals (bkfst, dinner) enoxaparin, 40 mg, subcutaneous, Q12H MICHELLE insulin lispro, 1-4 Units, subcutaneous, Nightly insulin lispro, 1-7 Units, subcutaneous, TID with meals insulin lispro, 25 Units, subcutaneous, TID with meals insulin NPH, 45 Units, subcutaneous, Q8H lisinopriL, 10 mg, oral, Daily sodium chloride 0.9%, 0.5-20 mL, intra-catheter, Q8H MICHELLE Continuous Infusions: PRN Meds:.??? acetaminophen ??? dextrose OR dextrose ??? glucagon ??? sodium chloride 0.9% Labs Recent Results (from the past 24 hour(s)) POCT glucose Collection Time: 12/18/19 1:24 PM Result Value Ref Range Glucose, POC 494 (Critical) 70 - 199 mg/dL Glucose comment 1 RN Notified POCT ketone, fingerstick Collection Time: 12/18/19 1:37 PM Result Value Ref Range Ketones, Blood, POC 0.2 0.1 - 0.5 mmol/L Basic metabolic panel Collection Time: 12/18/19 3:36 PM Result Value Ref Range Sodium 131 (L) 135 - 145 mmol/L Potassium, pl See Comment 3.3 - 4.9 mmol/L Chloride 93 (L) 97 - 110 mmol/L CO2 24 22 - 32 mmol/L Anion gap 14 2 - 15 mmol/L BUN 18 8 - 25 mg/dL Creatinine 0.84 0.80 - 1.30 mg/dL Glucose 411 (H) 70 - 199 mg/dL Calcium 9.5 8.5 - 10.3 mg/dL Urinalysis reflex to microscopic Collection Time: 12/18/19 3:36 PM Result Value Ref Range Color, ur Straw Yellow Clarity, ur Clear Clear Specific gravity, ur 1.029 (H) 1.010 - 1.025 pH, urine 6 Protein, ur ql 1+ (A) Negative Glucose, ur ql 3+ (A) Negative Ketones, ur Trace Negative Bilirubin, ur Negative Negative Blood, ur Negative Negative Urobilinogen, ur <2.0 <2.0 mg/dL Nitrite, ur Negative Negative Leukocyte esterase, ur 1+ (A) Negative UA reflex comment Reflex to microscopic UA will be performed. Urinalysis, microscopic only Collection Time: 12/18/19 3:36 PM Result Value Ref Range WBC, ur 0-5 0 - 5 /HPF RBC, ur 0-2 0 - 2 /HPF Epithelial cells, squamous, ur 1-5 0 - 5 /HPF POCT glucose Collection Time: 12/18/19 5:43 PM Result Value Ref Range Glucose, POC 351 (H) 70 - 199 mg/dL Glucose comment 1 RN Notified Potassium, whole blood Collection Time: 12/18/19 5:45 PM Result Value Ref Range Potassium, bld 3.8 3.3 - 4.9 mmol/L COVID-19 Coronavirus RNA Nasopharyngeal Collection Time: 12/18/19 5:45 PM Result Value Ref Range COVID-19 Coronavirus RNA Not Detected POCT glucose Collection Time: 12/18/19 7:26 PM Result Value Ref Range Glucose, POC 291 (H) 70 - 199 mg/dL POCT glucose Collection Time: 12/18/19 9:09 PM Result Value Ref Range Glucose, POC 406 (H) 70 - 199 mg/dL POCT glucose Collection Time: 12/18/19 11:01 PM Result Value Ref Range Glucose, POC 348 (H) 70 - 199 mg/dL POCT glucose Collection Time: 12/19/19 12:32 AM Result Value Ref Range Glucose, POC 317 (H) 70 - 199 mg/dL POCT glucose Collection Time: 12/19/19 12:41 AM Result Value Ref Range Glucose, POC 319 (H) 70 - 199 mg/dL Basic metabolic panel Collection Time: 12/19/19 3:23 AM Result Value Ref Range Sodium 137 135 - 145 mmol/L Potassium, pl 3.5 3.3 - 4.9 mmol/L Chloride 100 97 - 110 mmol/L CO2 26 22 - 32 mmol/L Anion gap 11 2 - 15 mmol/L BUN 17 8 - 25 mg/dL Creatinine 0.82 0.80 - 1.30 mg/dL Glucose 262 (H) 70 - 199 mg/dL Calcium 9.3 8.5 - 10.3 mg/dL CBC with auto differential Collection Time: 12/19/19 3:23 AM Result Value Ref Range WBC 5.2 3.8 - 9.9 K/cumm Hgb 14.3 13.0 - 17.5 g/dL Hct 39.2 38.9 - 50.3 % Plt 252 150 - 400 K/cumm MPV 9.9 9.1 - 12.3 fL RBC 4.85 4.30 - 5.80 M/cumm MCV 80.8 (L) 81.3 - 96.4 fL MCH 29.5 27.1 - 33.3 pg MCHC 36.5 (H) 32.3 - 35.7 g/dL RDW CV 12.0 11.1 - 14.9 % RDW SD 34.8 (L) 35.7 - 48.1 fL NRBC abs 0.00 0.00 - 0.01 K/cumm Hemoglobin A1c Collection Time: 12/19/19 3:23 AM Result Value Ref Range Hgb A1C 8.4 (H) 4.0 - 5.6 % Estimated Average Glucose 194 mg/dL POCT glucose Collection Time: 12/19/19 3:23 AM Result Value Ref Range Glucose, POC 244 (H) 70 - 199 mg/dL Differential, auto Collection Time: 12/19/19 3:23 AM Result Value Ref Range Neutrophil abs 2.5 1.7 - 6.5 K/cumm Imm gran abs 0.0 0.0 - 0.1 K/cumm Lymphocyte abs 2.0 0.8 - 3.3 K/cumm Monocyte abs 0.4 0.2 - 0.8 K/cumm Eosinophil abs 0.2 0.0 - 0.5 K/cumm Basophil abs 0.0 0.0 - 0.1 K/cumm Neutrophil pct 47.6 % Imm gran pct 0.4 % Lymphocyte pct 39.4 % Monocyte pct 8.5 % Eosinophil pct 3.7 % Basophil pct 0.4 % Lipid panel Collection Time: 12/19/19 3:23 AM Result Value Ref Range Cholesterol 175 30 - 199 mg/dL Triglycerides 785 (H) <=149 mg/dL HDL 22 (L) >=40 mg/dL LDL, calculated See Comment <=129 Non-HDL Cholesterol 153 mg/dL Chol/HDL ratio 8 Cholesterol, LDL, direct Collection Time: 12/19/19 3:23 AM Result Value Ref Range LDL Cholesterol Direct 60 <=129 mg/dL POCT glucose Collection Time: 12/19/19 7:27 AM Result Value Ref Range Glucose, POC 224 (H) 70 - 199 mg/dL Recent Labs Lab Units 12/19/19 0727 12/19/19 0323 SODIUM mmol/L -- 137 POTASSIUM PLASMA mmol/L -- 3.5 CHLORIDE mmol/L -- 100 CO2 mmol/L -- 26 ANIONGAP mmol/L -- 11 GLUCOSE mg/dL -- 262* POC GLUCOSE MONITOR mg/dL 224* 244* BUN SERUM mg/dL -- 17 CREATININE mg/dL -- 0.82 CALCIUM mg/dL -- 9.3 Recent Labs Lab Units 12/19/19 0323 WBC K/cumm 5.2 HEMOGLOBIN g/dL 14.3 HEMATOCRIT % 39.2 PLATELETS K/cumm 252 NEUTROS PCT % 47.6 LYMPHS PCT % 39.4 MONOS PCT % 8.5 EOS PCT % 3.7 Imaging XR Chest Pa Lateral 2 Vw Narrative: EXAMINATION: 2 view chest radiograph Impression: Comparison made to exam dated 06/17/2017. Lung volumes are small. The lungs are clear, no edema or pneumonia. No pneumothorax or pleural effusion. The cardiomediastinal silhouette is normal. Dictated by: Wilder Marques The radiology attending physician has personally reviewed this study, and had reviewed and/or edited this written report and agrees with it. Electronically signed by: Glenn Martinez M.D. I have reviewed all imaging studies. Assessment and Plan Impression: Geraldo Velez is a 23 y.o. male with a history of type 2 DM, obesity (BMI >50),asymmetric septal hypertrophy (last TTE in 2016, follows with Dr. Walton) and HTN who presents with symptomatic hyperglycemia, admitted for optimization of his insulin regimen. #Hyperglycemia BG on admission 494. Symptomatic with polyuria, polydipsia, nausea and some vision changes. He takes his BG 3 times a day before meals. They have been fluctuating between 90-200's the last week, in the 500's night prior to admission. Compliant with medication regimen. He received 1 L IVF, 10 units IV regular insulin. Negative for ketones in his blood and urine. 1+ leukocyte esterase, 1+ protein, and 3+ glucose on UA. - F/u on endocrinology recs - NPH 45 q8h per endocrinology - lispro 25u TID with meals - HDSS q4h - NPO until BG under 300 ?? #T2DM Follow with Dr. Styles in endocrinology here at [facility]. Per chart review patient is extremely insulinresistant. Diabetes regimen of metformin 1000 BID and 75U U500 TID. He takes his BG 3 times a day before meals. They have been fluctuating between 90-200's the last week. -Glucose control per Endocrinology team as above ?? #HTN 189/106 on admission, down to 155/87 a few hours later. Took his medicines this morning. -Continue home carvedilol -Continue home lisinopril ?? #HLD -Continue home statin ?? #Asymetric Septal Hypertrophy Follows with Dr. Walton in cardiology. Has not been symptomatic since [facility] he says. Last TTE was in 2016. - continue coreg ?? #Obesity (BMI>50) Continued weight loss discussions. Jeremiah Ochoa [id number] 12/19/19 10:35 AM Cosigned by Mary Coppola MD at 12/23/2019 8:34 AM CDT * Plan of Care - Shea Pina RN - 12/19/2019 4:12 AM CDT Problem: Health Behavior: Goal: Understanding of discharge needs will improve Outcome: Progressing Problem: Lack of Knowledge: Goal: Ability to describe self-care measures that may prevent or decrease complications will improve Outcome: Progressing Goal: Knowledge of disease or condition will improve Outcome: Progressing Goal: Knowledge of the prescribed therapeutic regimen will improve Outcome: Progressing Problem: Fluid Volume: Goal: Ability to maintain a balanced intake and output will improve Outcome: Progressing Problem: Nutritional: Goal: Maintenance of adequate nutrition will improve Outcome: Progressing Problem: Skin Integrity: Goal: Risk for impaired skin integrity will decrease Outcome: Progressing Goals: Clinical Goals for the Shift: Pt will have BS monitored and be admitted to floor Summary: Pt admitted to unit. VS/BS monitored. put orders in for bolus. put order in for 4 units due to parameters not met on arrival from ED. BS now 244. put orders in for Q4 accu checks with sliding scale and NPH of 45 stat. Pt placed with compella bed. Pt stated he wanted to be left alone due to not getting sleep for over 24 hours. Will continue to monitor. * ED Re-evaluation Note - Tracy Cho MD - 12/18/2019 10:35 PM CDT ED Re-evaluation TRANSITION OF CARE: I, Tracy Cho MD, am taking signout from Dr Shaffer (Resident) under supervision of Dr Jeff(Attending). I have reviewed all pertinent vital signs, allergies, and history available in the chart. Summary: 23 y.o. male w/ recently diagnosed IDDM pw hyperglycemia x2 wks and polyuria, headaches and intermittent blurry vision. BG 400s, ketones 0.2, AG 14. Tx: IL Ns, total lispro 6u, regular 10u, NPH 35u Endo consulted. Pending: [facility] Dispo: admit to medicine, signed out ED Course as of Dec 18 8181 Time: 12/17 8289 Comment: After BMP results will call endo Re: pt not on long acting insulin. Will see if he should be admitted to short stay By: Anna Shaffer MD Time: 12/18 1635 Value: Potassium, pl: See Comment Comment: Will re order By: Anna Shaffer MD Time: 12/18 1739 Comment: Endo aware of pt. Signed out to medicine. By: Anna Shaffer MD Time: 12/17 1852 Comment: Medicine wants endo recs to start here - 35 units NPH Q 8hrs. This will be ordered By: Anna Shaffer MD Time: 12/18 1855 Value: Potassium, bld: 3.8 Comment: (Reviewed) By: Anna Shaffer MD Time: 12/17 2134 Value: Glucose, POC(!): 406 Comment: Giving more insulin By: Anna Shaffer MD Time: 12/17 2310 Comment: BG improved - will send upstairs. Endo wants NPH to be up to 45 By: MD Tracy Young MD Resident 12/19/19 0742 * Medical Student - Jeremiah Ochoa - 12/18/2019 5:59 PM CDT [employer] History and Physical Patient: Geraldo Velez Primary Care Physician: Jann Burrows MD Room: [facility] ED1-10/ED1 SUBJECTIVE: CC: hyperglycemia HPI: Geraldo Velez is a 23 y.o. male with a history of type 2 DM, obesity (BMI >50), asymmetric septal hypertrophy (last TTE in 2015, follows with Dr. Walton) and HTN who presents with symptomatic hyperglycemia. Patient states that the last few days he has had polyuria, polydipsia, nausea and some vision changes. He follows with Dr. Styles in endocrinology here at [facility]. He has been taking his normal diabetesregimen of metformin 1000 BID and 75U U500 TID. He takes his BG 3 times a day before meals. They have been fluctuating between 90-200's the last week. Last night, the patient's girlfriend (a nurse at [employer]) was concerned given his increased urination. He took his BG, which was in the 500'sthen took extra insulin with drop down to the 400's. On waking up the next morning, he was still hyperglycemic in the high 400's. He presented to urgent care then to [place]. Denies infectious contacts, fevers, chills, vomiting, dysuria, or changes in his BMs. 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 ED Course: In the ED he was found to have BG of 494. He received 1 L IVF, 10 units IV regular insulin. Negative for ketones in his blood and urine. 1+ leukocyte esterase, 1+ protein, and 3+ glucose on UA. Nitrite negative. Endocrinology was consulted and he was admitted to medicine for monitoring of hyperglycemia and insulin regimen alterations. MEDICAL HISTORY: Past Medical History: Diagnosis Date ??? Anxiety ??? Depression ??? Diabetes mellitus (CMS/HCC) ??? HTN (hypertension) ??? Metabolic syndrome ??? Morbid obesity with BMI of 50.0-59.9, adult (CMS/HCC) 07/10/2017 SURGICAL HISTORY: History reviewed. No pertinent surgical history. HOME MEDICATIONS: HOME MEDICATIONS : atorvastatin (LIPITOR) 20 mg tablet carvedilol (COREG) 25 mg tablet insulin regular U-500 (HumuLIN R U-500, Conc, Kwikpen) 75 unit injection TID lisinopril (PRINIVIL,ZESTRIL) 5 mg tablet metFORMIN (GLUCOPHAGE) 1000 mg tablet BID Indapamide (?) ALLERGIES: No Known Allergies FAMILY HISTORY: Family History Problem Relation Age of Onset ??? Diabetes Mother Family history of diabetes mellitus - (Added by TW Conv) ??? 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 He drinks socially a few drinks a nightonce every week or two. Does not smoke tobacco. Currently chews tobacco 1/2 can/wk since age 17. Noother drugs. Girlfriend, Roxana, is a nurse at [employer]. REVIEW OF SYSTEMS Review of systems per HPI and below. Otherwise all systems negative. Constitutional: No fevers or weight loss. Respiratory: No shortness of breath Cardiac: No chest pain ABD: No changes in bowel habits, or blood in stool. +nausea : + polyuria, + polydipsia OBJECTIVE: VITALS: Arrival Vitals [12/18/19 1321] Temp 36.8 ??C (98.2 ??F) Pulse 99 Resp 18 BP (!) 189/106 SpO2 99 % Temp src Oral Heart Rate Source Patient Position BP Location FiO2 (%) Most Recent : Vitals: 12/18/19 1321 BP: (!) 189/106 Pulse: 99 Resp: 18 Temp: 36.8 ??C (98.2 ??F) SpO2: 99% Height: 200.7 cm (6' 7 ) Weight: (!) 215.5 kg (475 lb) BMI (Calculated): 53.5 I/O's: No intake/output data recorded. PHYSICAL EXAM: General: Obese man in no acute distress. Alert, cooperative, pleasant. Skin: No abnormal lesions or rash Head: Nontraumatic, normocephalic Eyes: Sclera nonicteric. Pupils equal/round/reactive to light. Extraocular eye movements intact. Noexophthalmos appreciated. ENT: Hearing grossly intact. No nasal discharge. Moist mucous membranes. Oropharynx nonerythematous, without exudates. Neck supple without JVD, lymphadenopathy, or goiter. Cardiac: Normal rate, regular rhythm with normal S1 and S2. No murmurs gallops or rubs. Pulmonary: No respiratory distress on room air. Clear to auscultation bilaterally. Back: No deformities. No spinal or CVA tenderness. Abdomen: Obese abdomen. Soft, nontender, no masses or hepatosplenomegaly. Normal active bowel sounds Extremities: No edema. Warm and well perfused. 2+ distal pulses. No cyanosis or clubbing. Neurologic: Alert and oriented to person/place/time. Cranial nerves grossly intact. Moves all extremities appropriately. Sensation intact to light touch. Reflexes bilateral 2+ biceps, triceps, brachioradialis, patella, and achilles. Musculoskeletal: Muscle strength 5/5 in bilateral upper extremities, bilateral lower extremities. Psychiatric: Normal mood and affect, pleasant and conversant. LAB/RADIOLOGY/DIAGNOSTIC REVIEW: Recent Results (from the past 24 hour(s)) POCT glucose Collection Time: 12/18/19 1:24 PM Result Value Ref Range Glucose, POC 494 (Critical) 70 - 199 mg/dL Glucose comment 1 RN Notified POCT ketone, fingerstick Collection Time: 12/18/19 1:37 PM Result Value Ref Range Ketones, Blood, POC 0.2 0.1 - 0.5 mmol/L Basic metabolic panel Collection Time: 12/18/19 3:36 PM Result Value Ref Range Sodium 131 (L) 135 - 145 mmol/L Potassium, pl See Comment 3.3 - 4.9 mmol/L Chloride 93 (L) 97 - 110 mmol/L CO2 24 22 - 32 mmol/L Anion gap 14 2 - 15 mmol/L BUN 18 8 - 25 mg/dL Creatinine 0.84 0.80 - 1.30 mg/dL Glucose 411 (H) 70 - 199 mg/dL Calcium 9.5 8.5 - 10.3 mg/dL Urinalysis reflex to microscopic Collection Time: 12/18/19 3:36 PM Result Value Ref Range Color, ur Straw Yellow Clarity, ur Clear Clear Specific gravity, ur 1.029 (H) 1.010 - 1.025 pH, urine 6 Protein, ur ql 1+ (A) Negative Glucose, ur ql 3+ (A) Negative Ketones, ur Trace Negative Bilirubin, ur Negative Negative Blood, ur Negative Negative Urobilinogen, ur <2.0 <2.0 mg/dL Nitrite, ur Negative Negative Leukocyte esterase, ur 1+ (A) Negative UA reflex comment Reflex to microscopic UA will be performed. Urinalysis, microscopic only Collection Time: 12/18/19 3:36 PM Result Value Ref Range WBC, ur 0-5 0 - 5 /HPF RBC, ur 0-2 0 - 2 /HPF Epithelial cells, squamous, ur 1-5 0 - 5 /HPF POCT glucose Collection Time: 12/18/19 5:43 PM Result Value Ref Range Glucose, POC 351 (H) 70 - 199 mg/dL Glucose comment 1 RN Notified ASSESSMENT & PLAN Geraldo Velez is a 23 y.o. male with a history of type 2 DM, obesity (BMI >50), asymmetric septal hypertrophy (last TTE 02/13/16, follows with Dr. Walton) and HTN who presents with symptomatichyperglycemia. #Hyperglycemia BG on admission 494. Symptomatic with polyuria, polydipsia, nausea and some vision changes. He takes his BG 3 times a day before meals. They have been fluctuating between 90-200's the last week, in the 500's night prior to admission. Compliant with medication regimen. He received 1 L IVF, 10 units IV regular insulin. Negative for ketones in his blood and urine. 1+ leukocyte esterase, 1+ protein, and 3+ glucose on UA. - Endocrinology c/s to weigh in on regimen. - NPH 35 q8h per endocrinology - HDSS q4h - NPO until BG under 300 #T2DM Follow with Dr. Styles in endocrinology here at [facility]. Per chart review patient is extremely insulinresistant. Diabetes regimen of metformin 1000 BID and 75U U500 TID. He takes his BG 3 times a day before meals. They have been fluctuating between 90-200's the last week. -Glucose control per Endocrinology team as above #HTN 189/106 on admission, down to 155/87 a few hours later. Took his medicines this morning. -Continue home carvedilol -Continue home lisinopril #HLD -Continue home statin #Asymetric Septal Hypertrophy Follows with Dr. Walton in cardiology. Has not been symptomatic since highschool he says. Last TTE was in 2016. #Obesity (BMI>50) Continued weight loss discussions. Jeremiah Ochoa [id number] 12/18/19 5:59 PM Cosigned by Mary Coppola MD at 12/23/2019 8:34 AM CDT * Significant Event - Enrique Baker MD - 12/18/2019 4:53 PM CDT Medicine Triage Attending Note Geraldo Velez is a patient currently being evaluated for possible admission to [facility]. Upon review of this patient's chart I recommend that this patient be considered low risk for for COVID-19 because they have the following: [x] Fewer than 3 COVID-19 compatible symptoms and no known exposures that place them at risk for garret COVID-19. (headaches) [] No COVID-19 compatible symptoms but a known exposure that places them at risk for having contracted COVID-19. [] No clear COVID-19 compatible symptoms or exposures but unable to be confidently assessed from the patient. Per [facility] policy, patients assessed as being low risk for COVID-19 require COVID-19 testing and require COVID-19 level isolation while awaiting COVID-19 test results, however these patients can [id number] in any private room (including positive pressure rooms) and do NOT require a COVID-19 unit or ICU bed. A single negative COVID-19 test result is sufficient for removi ng these patients from COVID-19 isolation precautions, to do so please contact [facility] [employer] ([email or web address], utilize the on-call tab to locate the right person). If you are concerned that a low-risk patient should remain on COVID-19 precautions despite a negative COVID-19 test, please describe your concerns to Infection Prevention. Enrique Baker MD COVID-19 Symptoms: - Clinical (must be new or worsening) : Fever, chills, cough, shortness of breath, oxygen requirement, muscle aches/pains, sore throat, headaches, loss of smell/taste - Imaging (must be new or worsening): Infiltrate(s) on Chest XR or Chest CT COVID-19 High Risk Exposures (should be within last 14 days): -Known close contact with person with COVID-19 (Ex. Family, close friends, ect.) -Living in group living facility such as a fdc facility, fci facility, rehab facility, or long-term care facility -Patient states they were diagnosed with COVID-19 or are quarantined/isolated/furloughed for COVID-19 -Patient works in environment with known COVID-19 positive patients * ED Procedure Note - Luis Fernando Solis MD - 12/18/2019 4:30 PM CDT Associated Order(s): Peripheral line insertion Procedure Peripheral line insertion Date/Time: 12/18/2019 7:39 PM Performed by: Luis Fernando Solis MD Authorized by: China Magana MD Indications: Nursing unable to obtain Pre-procedure details: Hand hygiene: Hand hygiene performed prior to insertion Skin preparation: 2% chlorhexidine Skin preparation agent: Skin preparation agent completely dried prior to procedure Anesthesia (see MAR for exact dosages): Anesthesia method: Local infiltration Local anesthetic: Lidocaine 1% w/o epi Procedure details: Catheter size: 18 G Laterality: Right Location: Upper arm Number of attempts: 1 Ultrasound guidance was used to confirm vessel patency and needle position: Yes Successful placement: yes Post-procedure details: Post-procedure: Dressing applied and line secured Patient tolerance of procedure: Tolerated well, no immediate complications Luis Fernando Solis MD Resident 12/18/19 1939 Cosigned by China Magana MD at 12/19/2019 7:31 AM CDT Associated attestation - China White MD - 12/19/2019 7:31 AM CDT I was present for the perez portions of the procedure: line/catheter insertion and remained immediately available for the remainder of the procedure. * ED Procedure Note - Luis Fernando Solis MD - 12/18/2019 4:00 PM CDT Associated Order(s): Peripheral line insertion Procedure Peripheral line insertion Date/Time: 12/18/2019 7:38 PM Performed by: Luis Fernando Solis MD Authorized by: China Magana MD Indications: Nursing unable to obtain Pre-procedure details: Hand hygiene: Hand hygiene performed prior to insertion Skin preparation: 2% chlorhexidine Skin preparation agent: Skin preparation agent completely dried prior to procedure Anesthesia (see MAR for exact dosages): Anesthesia method: Local infiltration Local anesthetic: Lidocaine 1% w/o epi Procedure details: Catheter size: 18 G Laterality: Left Location: Upper arm Number of attempts: 1 Ultrasound guidance was used to confirm vessel patency and needle position: Yes Successful placement: yes Post-procedure details: Post-procedure: Dressing applied and line secured Patient tolerance of procedure: Tolerated well, no immediate complications Luis Fernando Solis MD Resident 12/18/191938 Cosigned by China Magana MD at 12/19/2019 7:31 AM CDT Associated attestation - China White MD - 12/19/2019 7:31 AM CDT I was present for the perez portions of the procedure: line/catheter insertion and remained immediately available for the remainder of the procedure. * ED Procedure Note - Luis Fernando Solis MD - 12/18/2019 3:35 PM CDT Associated Order(s): Peripheral line insertion Procedure Peripheral line insertion Date/Time: 12/18/2019 3:35 PM Performed by: Luis Fernando Solis MD Authorized by: China Magana MD Indications: Nursing unable to obtain Pre-procedure details: Hand hygiene: Hand hygiene performed prior to insertion Skin preparation: 2% chlorhexidine Skin preparation agent: Skin preparation agent completely dried prior to procedure Anesthesia (see MAR for exact dosages): Anesthesia method: Local infiltration Local anesthetic: Lidocaine 1% w/o epi Procedure details: Catheter size: 18 G Laterality: Left Location: Upper arm Number of attempts: 1 Ultrasound guidance was used to confirm vessel patency and needle position: Yes Successful placement: yes Post-procedure details: Post-procedure: Dressing applied and line secured Patient tolerance of procedure: Tolerated well, no immediate complications Luis Fernando Solis MD Resident 12/18/19 1535 Cosigned by China Magana MD at 12/18/2019 5:15 PM CDT Associated attestation - China White MD - 12/18/2019 5:15 PM CDT I was present for the perez portions of the procedure: line/catheter insertion and remained immediately available for the remainder of the procedure. * ED Re-evaluation Note - Anna Shaffer MD - 12/18/2019 2:50 PM CDT ED Re-evaluation TRANSITION OF CARE: I, Anna Shaffer MD, am taking signout from (Resident) under supervision of (Attending). I have reviewed all pertinent vital signs, allergies, and history available in the chart. Summary: 23 y.o. male recently diagnosed IDDM presenting with chief complaint of hyperglycemia. He reports increased urination, headaches, intermittent vision blurring, nausea with persistently elevated BGs for the past two days of > 500. He is compliant with insulin and is on 90 units of humalog TID (no long acting). Went to who discharged him. 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 +ingrown toenails Here BG almost 500. Ketones 0.2. Awaiting labs. 10Uinsulin and 1L IVF ordered. Pending: insulin, labs Dispo: per improvement clinically and labs ED Course as of Dec 17 2322 Time: 12/17 1554 Comment: After BMP results will call endo Re: pt not on long acting insulin. Will see if he should be admitted to short stay By: Anna Shaffer MD Time: 12/17 1636 Value: Potassium, pl: See Comment Comment: Will re order By: Anna Shaffer MD Time: 12/17 1670 Comment: Endo aware of pt. Signed out to medicine. By: Anna Shaffer MD Time: 12/17 105 Comment: Medicine wants endo recs to start here - 35 units NPH Q 8hrs. This will be ordered By: Anna Shaffer MD Time: 12/17 185 Value: Potassium, bld: 3.8 Comment: (Reviewed) By: Anna Shaffer MD Time: 12/17 2134 Value: Glucose, POC(!): 406 Comment: Giving more insulin By: Anna Shaffer MD Time: 12/17 2310 Comment: BG improved - will send upstairs. Endo wants NPH to be up to 45 By: Anna Shaffer MD Final diagnoses: Hyperglycemia Nausea Frequency of urination and polyuria Anna Shaffer MD Resident 12/18/19 3576 documented in this encounter Plan of Treatment Not on file documented as of this encounter Procedures Procedure Name Priority Date/Time Associated Diagnosis Comments POCT GLUCOSE DEVICE Routine 12/21/2019 1 1:43 AM CDT POCT GLUCOSE DEVICE Routine 12/21/2019 7 :55 AM CDT POCT GLUCOSE DEVICE Routine 12/21/2019 2 :50 AM CDT POCT GLUCOSE DEVICE Routine 12/20/2019 9 :41 PM CDT POCT GLUCOSE DEVICE Routine 12/20/2019 5 :15 PM CDT POCT GLUCOSE DEVICE Routine 12/20/2019 1 1:30 AM CDT POCT GLUCOSE DEVICE Routine 12/20/2019 8 :05 AM CDT POCT GLUCOSE DEVICE Routine 12/20/2019 2 :49 AM CDT POCT GLUCOSE DEVICE Routine 12/19/2019 1 1:34 PM CDT POCT GLUCOSE DEVICE Routine 12/19/2019 8 :19 PM CDT POCT GLUCOSE DEVICE Routine 12/19/2019 5 :01 PM CDT POCT GLUCOSE DEVICE Routine 12/19/2019 1 1:50 AM CDT POCT GLUCOSE DEVICE Routine 12/19/2019 7 :27 AM CDT DIFFERENTIAL AUTO Routine 12/19/2019 3:2 3 AM CDT POCT GLUCOSE DEVICE Routine 12/19/2019 3 :23 AM CDT CBC WITH AUTO DIFFERENTIAL Routine 12/19/2019 3:23 AM CDT CHOLESTEROL, LDL, DIRECT Routine 12/19/2019 3:23 AM CDT HEMOGLOBIN A1C Routine 12/19/2019 3:23 AM CDT LIPID PANEL Routine 12/19/2019 3:23 AM CDT BASIC METABOLIC PANEL Routine 12/19/2019 3:23 AM CDT POCT GLUCOSE DEVICE Routine 12/19/2019 1 2:41 AM CDT POCT GLUCOSE DEVICE Routine 12/19/2019 1 2:32 AM CDT POCT GLUCOSE DEVICE Routine 12/18/2019 1 1:01 PM CDT POCT GLUCOSE DEVICE Routine 12/18/2019 9 :09 PM CDT POCT GLUCOSE DEVICE Routine 12/18/2019 7 :26 PM CDT COVID-19 CORONAVIRUS RNA Routine 12/18/2019 5:45 PM CDT POTASSIUM, WHOLE BLOOD STAT 12/18/2019 5:45 PM CDT POCT GLUCOSE DEVICE Routine 12/18/2019 5 :43 PM CDT ED PERIPHERAL LINE INSERTION Routine 12/18/2019 4:30 PM CDT ED PERIPHERAL LINE INSERTION Routine 12/18/2019 4:00 PM CDT URINALYSIS AND REFLEX TO MICROSCOPIC STAT 12/18/2019 3:36 PM CDT URINALYSIS, MICROSCOPIC ONLY STAT 12/18/2019 3:36 PM CDT BASIC METABOLIC PANEL STAT 12/18/2019 3:36 PM CDT ED PERIPHERAL LINE INSERTION Routine 12/18/2019 3:35 PM CDT POCT KETONE, FINGERSTICK Routine 12/18/2019 1:37 PM CDT POCT GLUCOSE DEVICE Routine 12/18/2019 1 :24 PM CDT documented in this encounter Results * POCT glucose (12/21/2019 11:43 AM CDT) [facility] Glucose, POC 194 70 - 199 mg/dL [facility] Blood specimen (specimen) 12/21/2019 11:43 AM CDT 12/21/2019 11:43 AM CDT us Frederic Higuera MD LAB POCT ORDERABLES - DEVICE Final Result [facility] Department [place] [address] * POCT glucose (12/21/2019 7:55 AM CDT) Glucose, POC 196 70 - 199 mg/dL [facility] Blood specimen (specimen) 12/21/2019 7:55 AM CDT 12/21/2019 7:55 AM CDT Frederic Higuera MD LAB POCT ORDERABLES - DEVICE Final Result Performing Organization Address City/[facility] Co de Phone Number [facility] [place] [address] * POCT glucose (12/21/2019 2:50 AM CDT) Glucose, POC 174 70 - 199 mg/dL [facility] Blood specimen (specimen) 12/21/2019 2:50 AM CDT 12/21/2019 2:50 AM CDT Frederic Higuera MD LAB POCT ORDERABLES - DEVICE Final Result Performing Organization Address [facility] Co de Phone Number [facility] [place] [address] * POCT glucose (12/20/2019 9:41 PM CDT) Glucose, POC 131 70 - 199 mg/dL [facility] Blood specimen (specimen) 12/20/2019 9:41 PM CDT 12/20/2019 9:41 PM CDT Frederic Higuera MD LAB POCT ORDERABLES - DEVICE Final Result Performing Organization Address [facility] Co de Phone Number [facility] [place] [address] * POCT glucose (12/20/2019 5:15 PM CDT) Glucose, POC 114 70 - 199 mg/dL [facility] Blood specimen (specimen) 12/20/2019 5:15 PM CDT 12/20/2019 5:15 PM CDT Frederic Higuera MD LAB POCT ORDERABLES - DEVICE Final Result Performing Organization Address [facility] de Phone Number [facility] [place] [address] * (ABNORMAL) POCT glucose (12/20/2019 11:30 AM CDT) Glucose, POC 229(H) 70 - 199 mg/dL [facility] Blood specimen (specimen) 12/20/2019 11:30 AM CDT 12/20/2019 11:30 AM CDT Frederic Higuera MD LAB POCT ORDERABLES - DEVICE Final Result Performing Organization Address [facility] de Phone Number [facility] [place] [address] * (ABNORMAL) POCT glucose (12/20/2019 8:05 AM CDT) Glucose, POC 258(H) 70 - 199 mg/dL [facility] Blood specimen (specimen) 12/20/2019 8:05 AM CDT 12/20/2019 8:05 AM CDT Frederic Higuera MD LAB POCT ORDERABLES - DEVICE Final Result Performing Organization Address [facility] de Phone Number [facility] [place] [address] * (ABNORMAL) POCT glucose (12/20/2019 2:49 AM CDT) Glucose, POC 234(H) 70 - 199 mg/dL [facility] Blood specimen (specimen) 12/20/2019 2:49 AM CDT 12/20/2019 2:49 AM CDT Frederic Higuera MD LAB POCT ORDERABLES - DEVICE Final Result Performing Organization Address [facility] Co de Phone Number [facility] [place] [address] * POCT glucose (12/19/2019 11:34 PM CDT) Glucose, POC 197 70 - 199 mg/dL [facility] Blood specimen (specimen) 12/19/2019 11:34 PM CDT 12/19/2019 11:34 PM CDT us Frederic Higuera MD LAB POCT ORDERABLES - DEVICE Final Result Performing Organization Address [facility] Co de Phone Number [facility] [place] [address] * (ABNORMAL) POCT glucose (12/19/2019 8:19 PM CDT) Glucose, POC 254(H) 70 - 199 mg/dL [facility] Glucose comment 1 RN Notified [facility] Blood specimen (specimen) 12/19/2019 8:19 PM CDT 12/19/2019 8:19 PM CDT Frederic Higuera MD LAB POCT ORDERABLES - DEVICE Final Result Performing Organization Address City/[facility] [place] [place] [address] * (ABNORMAL) POCT glucose (12/19/2019 5:01 PM CDT) Glucose, POC 239(H) 70 - 199 mg/dL [facility] Blood specimen (specimen) 12/19/2019 5:01 PM CDT 12/19/2019 5:01 PM CDT Frederic Higuera MD LAB POCT ORDERABLES - DEVICE Final Result Performing Organization Address [facility] de Phone Number [facility] [place] [address] * (ABNORMAL) POCT glucose (12/19/2019 11:50 AM CDT) Glucose, POC 250(H) 70 - 199 mg/dL [facility] Blood specimen (specimen) 12/19/2019 11:50 AM CDT 12/19/2019 11:50 AM CDT Frederic Higuera MD LAB POCT ORDERABLES - DEVICE Final Result Performing Organization Address [facility] de Phone Number [facility] [place] [address] * (ABNORMAL) POCT glucose (12/19/2019 7:27 AM CDT) Glucose, POC 224(H) 70 - 199 mg/dL [facility] Blood specimen (specimen) 12/19/2019 7:27 AM CDT 12/19/2019 7:27 AM CDT Frederic Higuera MD LAB POCT ORDERABLES - DEVICE Final Result Performing Organization Address [facility] de Phone Number [facility] [place] [address] * Cholesterol, LDL, direct (12/19/2019 3:23 AM CDT) LDL Cholesterol, Direct 60 <=129 mg/dL [facility] Comment: Interpretive Data Ages < [...] last revised on 2017. Blood specimen (specimen) 12/19/2019 3:23 AM CDT 12/19/2019 3:53 AM CDT Narrative [facility] - 12/19/2019 10:03 AM CDT Cholesterol, LDL, direct reflexed based on Elevated Triglyceride (>400) Frederic Higuera MD LAB BLOOD ORDERABLES F inal Result [facility] Department [place] [address] * (ABNORMAL) Lipid panel (12/19/2019 3:23 AM CDT) Cholesterol 175 30 - 199 mg/dL [facility] Comment: Interpretive Data Ages < [...] Data was last revised on 2017. Triglycerides 785(H) <=149 mg/dL [facility] Comment: Interpretive Data Ages < [...] Data was last revised on 2017. HDL 22(L) >=40 mg/dL [facility] Comment: Interpretive Data Ages < [...] 2017. LDL, calculated See Comment <=129 [facility] Comment: Unable to calculate LDL due [...] was last revised on 2017. Non-HDL Cholesterol 153 mg/dL [facility] Comment: Interpretive Data Ages < or [...] was last revised on 2017. Chol/HDL ratio 8 [facility] Blood specimen (specimen) 12/19/2019 3:23 AM CDT 12/19/2019 3:53 AM CDT us Frederic Higuera MD LAB BLOOD ORDERABLES F inal Result [facility] [place] [address] * Differential, auto (12/19/2019 3:23 AM CDT) Neutrophil abs 2.5 1.7 - 6.5 K/cumm [facility] Imm gran abs 0.0 0.0 - 0.1 K/cumm [facility] Lymphocyte abs 2.0 0.8 - 3.3 K/cumm [facility] Monocyte abs 0.4 0.2 - 0.8 K/cumm [facility] Eosinophil abs 0.2 0.0 - 0.5 K/cumm [facility] Basophil abs 0.0 0.0 - 0.1 K/cumm [facility] Neutrophil pct 47.6 % [facility] Comment: Interpretive Data Percent cell count reference ranges are not reported, since discordance with absolute values may lead to misinterpretation of CBC data. Current Interpretive Data was last revised on 2017. Imm gran pct 0.4 % [facility] Comment: Interpretive Data Percent cell count reference ranges are not reported, since discordance with absolute values may lead to misinterpretation of CBC data. Current Interpretive Data was last revised on 2017. Lymphocyte pct 39.4 % [facility] Comment: Interpretive Data Percent cell count reference ranges are not reported, since discordance with absolute values may lead to misinterpretation of CBC data. Current Interpretive Data was last revised on 2017. Monocyte pct 8.5 % [facility] Comment: Interpretive Data Percent cell count reference ranges are not reported, since discordance with absolute values may lead to misinterpretation of CBC data. Current Interpretive Data was last revised on 2017. Eosinophil pct 3.7 % [facility] Comment: Interpretive Data Percent cell count reference ranges are not reported, since discordance with absolute values may lead to misinterpretation of CBC data. Current Interpretive Data was last revised on 2017. Basophil pct 0.4 % [facility] Comment: Interpretive Data Percent cell count reference ranges are not reported, since discordance with absolute values may lead to misinterpretation of CBC data. Current Interpretive Data was last revised on 2017. Blood specimen (specimen) 12/19/2019 3:23 AM CDT 12/19/2019 3:52 AM CDT us China White MD LAB BLOOD ORDERABLES Final R esult [facility] [place] [address] * (ABNORMAL) POCT glucose (12/19/2019 3:23 AM CDT) [facility] Glucose, POC 244(H) 70 - 199 mg/dL [facility] Blood specimen (specimen) 12/19/2019 3:23 AM CDT 12/19/2019 3:23 AM CDT Frederic Higuera MD LAB POCT ORDERABLES - DEVICE Final Result Performing Organization Address [facility]/[place] [address] * (ABNORMAL) Hemoglobin A1c (12/19/2019 3:23 AM CDT) [facility] Hgb A1C 8.4(H) 4.0 - 5.6 % [facility] Estimated Average Glucose 194 mg/dL [facility] Comment: The ADA recommends reporting an estimated Average Glucose (eAG) with all Hemoglobin A1c results using the equation derived from a study of 507 normal and diabetic adults. ??Minority populations were underrepresented and children were not included. ?? (Diabetes Care 31:5047-9198, 2008). ??The eAG is not equivalent to a fasting glucose. Blood specimen (specimen) 12/19/2019 3:23 AM CDT 12/19/2019 3:34 AM CDT us China White MD LAB [place]LOOD [place] [address] * (ABNORMAL) CBC with auto differential (12/19/2019 3:23 AM CDT) [facility] WBC 5.2 3.8 - 9.9 K/cumm [facility] Hgb 14.3 13.0 - 17.5 g/dL [facility] Hct 39.2 38.9 - 50.3 % [facility] Plt 252 150 - 400 K/cumm [facility] MPV 9.9 9.1 - 12.3 fL [facility] RBC 4.85 4.30 - 5.80 M/cumm [facility] MCV 80.8(L) 81.3 - 96.4 fL [facility] MCH 29.5 27.1 - 33.3 pg [facility] MCHC 36.5(H) 32.3 - 35.7 g/dL [facility] RDW CV 12.0 11.1 - 14.9 % [facility] RDW SD 34.8(L) 35.7 - 48.1 fL [facility] NRBC abs 0.00 0.00 - 0.01 K/cumm [facility] Blood specimen (specimen) 12/19/2019 3:23 AM CDT 12/19/2019 3:52 AM CDT China White MD LAB BLOOD ORDERABLES Final R esult [facility] Department [place] [address] * (ABNORMAL) Basic metabolic panel (12/19/2019 3:23 AM CDT) Sodium 137 135 - 145 mmol/L [facility] Potassium, pl 3.5 3.3 - 4.9 mmol/L [facility] Chloride 100 97 - 110 mmol/L [facility] CO2 26 22 - 32 mmol/L [facility] Anion gap 11 2 - 15 mmol/L [facility] BUN 17 8 - 25 mg/dL [facility] Creatinine 0.82 0.80 - 1.30 mg/dL [facility] Glucose 262(H) 70 - 199 mg/dL [facility] Comment: Interpretive Data Fasting glucose [...] interpretive data was last revised 2017. Calcium 9.3 8.5 - 10.3 mg/dL [facility] Blood specimen (specimen) 12/19/2019 3:23 AM CDT 12/19/2019 3:53 AM CDT us China White MD LAB BLOOD ORDERABLES Final R esult Performing Organization Address [facility] Co de Phone Number [facility] [place] [address] * (ABNORMAL) POCT glucose (12/19/2019 12:41 AM CDT) Glucose, POC 319(H) 70 - 199 mg/dL [facility] Blood specimen (specimen) 12/19/2019 12:41 AM CDT 12/19/2019 12:41 AM CDT us Frederic Higuera MD LAB POCT ORDERABLES - DEVICE Final Result Performing Organization Address [facility] Co de Phone Number [facility] [place] [address] * (ABNORMAL) POCT glucose (12/19/2019 12:32 AM CDT) Glucose, POC 317(H) 70 - 199 mg/dL [facility] Blood specimen (specimen) 12/19/2019 12:32 AM CDT 12/19/2019 12:32 AM CDT Frederic Higuera MD LAB POCT ORDERABLES - DEVICE Final Result Performing Organization Address City/[facility] Co de Phone Number [facility] Department [place] [address] * (ABNORMAL) POCT glucose (12/18/2019 11:01 PM CDT) Glucose, POC 348(H) 70 - 199 mg/dL [facility] Blood specimen (specimen) 12/18/2019 11:01 PM CDT 12/18/2019 11:01 PM CDT us China White MD LAB POCT ORDERABLES - DEVICE Final Result Performing Organization Address [facility] Co de Phone Number [facility] [place] [address] * (ABNORMAL) POCT glucose (12/18/2019 9:09 PM CDT) [facility] Glucose, POC 406(H) 70 - 199 mg/dL [facility] Blood specimen (specimen) 12/18/2019 9:09 PM CDT 12/18/2019 9:09 PM CDT us China White MD LAB POCT ORDERABLES - DEVICE Final Result Performing Organization Address [facility] Co de Phone Number [facility] Department [place] [address] * (ABNORMAL) POCT glucose (12/18/2019 7:26 PM CDT) [facility] Glucose, POC 291(H) 70 - 199 mg/dL [facility] Blood specimen (specimen) 12/18/2019 7:26 PM CDT 12/18/2019 7:26 PM CDT us China White MD LAB POCT ORDERABLES - DEVICE Final Result Performing Organization Address [facility] Co de Phone Number [facility] [place] [address] * COVID-19 Coronavirus RNA Nasopharyngeal (12/18/2019 5:45 PM CDT) [facility] COVID-19 RNA Not Detected [facility] Comment: Interpretive Data Testing performed at [facility]. The 2019-Novel Coronavirus Assay (COVID-19) Real Time RT-PCR assay is for in vitro diagnostic use under FDA emergency use authorization only. A negative RT-PCR result does not preclude infection with COVID-19 and should not be used as the sole basis for treatment or other patient management decisions. Additional sample types have been validated according to CLIA regulations. ?? Current Interpretive Data was last revised on 2019. Nasopharyngeal 12/18/2019 5: 45 PM CDT 12/18/2019 7:36 PM CDT Narrative [facility] - 12/19/2019 8:32 AM CDT Is the patient experiencing any symptoms consistent with COVID (eg. Fever, cough, shortness of breath)?->No What is the reason for testing?->Likely to be admitted to semi-private room THE COLLECTION LOCATION IS [facility] ED1-10 Anna Shaffer MD LAB MICROBIOLOGY - GENER AL ORDERABLES Final Result Performing Organization Address City/[facility]/ZIP Co de Phone Number [facility] [place] [address] * Potassium, whole blood (12/18/2019 5:45 PM CDT) [facility] Potassium, bld 3.8 3.3 - 4.9 mmol/L [facility] Blood specimen (specimen) 12/18/2019 5:45 PM CDT 12/18/2019 5:53 PM CDT Narrative [facility] - 12/18/2019 6:04 PM CDT THE COLLECTION LOCATION IS [facility] ED1-10 Anna Shaffer MD LAB BLOOD ORDERABLES Fin al Result Performing Organization Address City/[facility]/ZIP Co de Phone Number [facility] [place] [address] * (ABNORMAL) POCT glucose (12/18/2019 5:43 PM CDT) Glucose, POC 351(H) 70 - 199 mg/dL [facility] Glucose comment 1 RN Notified [facility] Blood specimen (specimen) 12/18/2019 5:43 PM CDT 12/18/2019 5:43 PM CDT us China White MD LAB POCT ORDERABLES - DEVICE Final Result [facility] Department [place] [address] * ED PERIPHERAL LINE INSERTION (12/18/2019 4:30 PM CDT) Narrative China Magana MD - 12/18/2019 4:30 PM CDT Luis Fernando Solis MD ? 12/18/2019 ??7:39 PM Peripheral line insertion Date/Time: 12/18/2019 7:39 PM Performed by: Luis Fernando Solis MD Authorized by: China Magana MD Indications: ??Nursing unable to obtain Pre-procedure details: ??Hand hygiene: Hand hygiene performed prior to insertion ?Skin preparation: ??2% chlorhexidine ??Skin preparation agent: Skin preparation agent completely dried prior to procedure ?? Anesthesia (see MAR for exact dosages): ??Anesthesia method: ??Local infiltration ??Local anesthetic: ??Lidocaine 1% w/o epi Procedure details: ??Catheter size: ??18 G ??Laterality: ??Right ??Location: ??Upper arm ??Number of attempts: ??1 ??Ultrasound guidance was used to confirm vessel patency and needle position: Yes ?Successful placement: yes ?? Post-procedure details: ??Post-procedure: ??Dressing applied and line secured ??Patient tolerance of procedure: ??Tolerated well, no immediate complications us China White MD IN CLINIC/BEDSIDE ORDERABLES Final Result * ED PERIPHERAL LINE INSERTION (12/18/2019 4:00 PM CDT) Narrative China Magana MD - 12/18/2019 4:00 PM CDT Luis Fernando Solis MD ? 12/18/2019 ??7:39 PM Peripheral line insertion Date/Time: 12/18/2019 7:38 PM Performed by: Luis Fernando Solis MD Authorized by: China Magana MD Indications: ??Nursing unable to obtain Pre-procedure details: ??Hand hygiene: Hand hygiene performed prior to insertion ?Skin preparation: ??2% chlorhexidine ??Skin preparation agent: Skin preparation agent completely dried prior to procedure ?? Anesthesia (see MAR for exact dosages): ??Anesthesia method: ??Local infiltration ??Local anesthetic: ??Lidocaine 1% w/o epi Procedure details: ??Catheter size: ??18 G ??Laterality: ??Left ??Location: ??Upper arm ??Number of attempts: ??1 ??Ultrasound guidance was used to confirm vessel patency and needle position: Yes ?Successful placement: yes ?? Post-procedure details: ??Post-procedure: ??Dressing applied and line secured ??Patient tolerance of procedure: ??Tolerated well, no immediate complications us China White MD IN CLINIC/BEDSIDE ORDERABLES Final Result * Urinalysis, microscopic only (12/18/2019 3:36 PM CDT) Pathologist [facility] WBC, ur 0-5 0 - 5 /HPF [facility] RBC, ur 0-2 0 - 2 /HPF [facility] Epithelial cells, squamous, ur 1-5 0 - 5 /HPF [facility] Urine 12/18/2019 3:36 PM CDT 12/18/2019 3:49 PM CDT us Dionna Mcpherson MD LAB URINE ORDERABLES F inal Result [facility] [place] [address] * (ABNORMAL) Urinalysis reflex to microscopic (12/18/2019 3:36 PM CDT) Color, ur Straw Yellow [facility] Clarity, ur Clear Clear [facility] Specific gravity, ur 1.029(H) 1.010 - 1.025 [facility] pH, urine 6 [facility] Protein, ur ql 1+(A) Negative [facility] Glucose, ur ql 3+(A) Negative [facility] Ketones, ur Trace Negative [facility] Bilirubin, ur Negative Negative [facility] Blood, ur Negative Negative [facility] Urobilinogen, ur <2.0 <2.0 mg/dL [facility] Nitrite, ur Negative Negative [facility] Leukocyte esterase, ur 1+(A) Negative [facility] UA reflex comment Reflex to microscopic UA will be performed. [facility] Urine 12/18/2019 3:36 PM CDT 12/18/2019 3:49 PM CDT Narrative [facility] - 12/18/2019 4:07 PM CDT THE [facility] COLLECTION LOCATION IS [facility] ED1-10 Urine pH is affected by diet, medications, systemic acid-base disturbances, and renal tubular function. ??pH may affect urinary stone formation. ??For example, urine pH below 6.0 may help reduce the tendency for calcium phosphate stones and pH greater than 6.0 may reduce the tendency for uric acid stone formation. Source: [facility] [employer]. Last revised 05-16-2017 us Dionna Mcpherson MD LAB URINE ORDERABLES F inal Result [facility] Department [place] [address] * (ABNORMAL) Basic metabolic panel (12/18/2019 3:36 PM CDT) Sodium 131(L) 135 - 145 mmol/L [facility] Potassium, pl See Comment 3.3 - 4.9 mmol/L [facility] Comment:Credited; Hemolyzed Specimen Chloride 93(L) 97 - 110 mmol/L [facility] CO2 24 22 - 32 mmol/L [facility] Anion gap 14 2 - 15 mmol/L [facility] BUN 18 8 - 25 mg/dL [facility] Creatinine 0.84 0.80 - 1.30 mg/dL [facility] Glucose 411(H) 70 - 199 mg/dL [facility] Comment: Interpretive Data Fasting glucose [...] interpretive data was last revised 2017. Calcium 9.5 8.5 - 10.3 mg/dL [facility] Blood specimen (specimen) 12/18/2019 3:36 PM CDT 12/18/2019 3:56 PM CDT Narrative [facility] - 12/18/2019 4:26 PM CDT THE COLLECTION LOCATION IS [facility] ED1-10 Dionna Mcpherson MD LAB BLOOD ORDERABLES F inal Result [facility] [place] [address] * ED PERIPHERAL LINE INSERTION (12/18/2019 3:35 PM CDT) Narrative China Magana MD - 12/18/2019 3:35 PM CDT Luis Fernando Solis MD ? 12/18/2019 ??3:35 PM Peripheral line insertion Date/Time: 12/18/2019 3:35 PM Performed by: Luis Fernando Solis MD Authorized by: China Magana MD Indications: ??Nursing unable to obtain Pre-procedure details: ??Hand hygiene: Hand hygiene performed prior to insertion ?Skin preparation: ??2% chlorhexidine ??Skin preparation agent: Skin preparation agent completely dried prior to procedure ?? Anesthesia (see MAR for exact dosages): ??Anesthesia method: ??Local infiltration ??Local anesthetic: ??Lidocaine 1% w/o epi Procedure details: ??Catheter size: ??18 G ??Laterality: ??Left ??Location: ??Upper arm ??Number of attempts: ??1 ??Ultrasound guidance was used to confirm vessel patency and needle position: Yes ?Successful placement: yes ?? Post-procedure details: ??Post-procedure: ??Dressing applied and line secured ??Patient tolerance of procedure: ??Tolerated well, no immediate complications China White MD IN CLINIC/BEDSIDE ORDERABLES Final Result * POCT ketone, fingerstick (12/18/2019 1:37 PM CDT) Ketones, Blood, POC 0.2 0.1 - 0.5 mmol/L Blood specimen (specimen) 12/18/2019 1:37 PM CDT China White MD POINT OF CARE TEST ORDERABLE S Final Result * (ABNORMAL) POCT glucose (12/18/2019 1:24 PM CDT) Glucose, POC 494(C) 70 - 199 mg/dL [facility] Glucose comment 1 RN Notified [facility] Blood specimen (specimen) 12/18/2019 1:24 PM CDT 12/18/2019 1:24 PM CDT Result [facility] Notinfile Unknown LAB POCT ORDERABLES - DEVICE F inal Result [facility] [place] [address] documented in this encounter Visit Diagnoses Diagnosis Hyperglycemia- Primary Hyperglycemia Other abnormal glucose Nausea Nausea alone Frequency of urination and polyuria Diabetic ketoacidosis without coma associated with other specified diabetes mellitus (HCC) documented in this encounter Administered Medications Inactive Administered Medications - up to 3 most recent administrations Medication Order MAR Action Action Date Dose Rate Site acetaminophen (TYLENOL) tablet 650 mg 650 mg, oral, Every 4 hours PRN, headaches, Starting on 12/19/19 at 0955 atorvastatin (LIPITOR) tablet 20 mg 20 mg, oral, Daily, First dose on 12/19/19 at 0900 Given 12/21/2019 8:02 AM CDT 20 mg Given 12/20/2019 8:19 AM CDT 20 mg Given 12/19/2019 8:39 AM CDT 20 mg carvediloL (COREG) tablet 25 mg 25 mg, oral, 2 times daily with meals (bkfst, dinner), First dose on 12/19/19 at 0800 Given 12/21/2019 8:03 AM CDT 2 5 mg Given 12/20/2019 5:36 PM CDT 25 mg Given 12/20/2019 8:21 AM CDT 25 mg dextrose (D10W) 10% bolus 250 mL 250 mL, intravenous, at 1,000 mL/hr, Administer over 15 Minutes, Every 15 min PRN, blood glucose less than 70 mg/dL and UNABLE to swallow/take PO glucose/juice., Starting on Sat12/18/19 at 2359, After treatment for hypoglycemia, recheck BG followed by treatment every 15 minutes until the BG is greater than 100 mg/dL. Then check BG 1 hour post treatment. If BG is less than 100 mg/dL, repeat Q15 minute BG checks and treatment. Call MD for each episode of hypoglycemia., Indications: hypoglycemic disorderIndications:hypoglycemi c disorder dextrose (GLUTOSE) 40 % gel 15 g 15 g, oral, Every 15 min PRN, low blood sugar, blood glucose less than 70 mg/dL, Starting on Sat12/18/19 at 2359, If patient is alert and able to [...] Call MD for each episode of hypoglycemia. SOCIAL SERVICE LIAISON STATES GLUTOSE-15 CONTAINS GLUCOSE 40% W/W (50% W/V), Indications: hypoglycemic disorderIndications:hypoglycemi c disorder enoxaparin (LOVENOX) syringe 40 mg 40 mg, subcutaneous, Every 12 hours scheduled, First dose on 12/19/19 at 0000, Indications: Deep Vein Thrombosis PreventionIndications:Deep Vein Thrombosis Prevention Given 12/21/2019 8:03 AM CDT 40 mg Left Lower Abdomen Given 12/20/2019 10:00 PM CDT 40 mg R ight Upper Arm Given 12/20/2019 8:19 AM CDT 40 mg Le ft Upper Arm insulin lispro (HumaLOG, ADMELOG) injection 1-4 Units 1-4 Units, subcutaneous, Every 4 hours scheduled, First dose on 12/19/19 at 0000, Blood Sugar High Dose - NPO patients 139 or less No insulin 140 - 175 1 unit 176 - 200 2 unit 201 - 250 3 units 251 - 299 4 units Greater than 299 Call MD for hyperglycemia management instructions Do NOT hold for NPO status., Indications: Diabetes MellitusIndications:Diabetes Mellitus Given 12/19/2019 8:39 AM CDT 3 Units Right Upper Arm Given 12/19/2019 3:35 AM CDT 3 Units Le ft Upper Arm insulin lispro (HumaLOG, ADMELOG) injection 1-4 Units 1-4 Units, subcutaneous, Nightly, First dose on 12/19/19 at 2100, Blood Sugar High Dose PM - PO patients 139 or less No insulin 140 - 175 1 unit 176 - 200 2 units 201 - 250 3 units 251 - 299 4 units Greater than 299 Call MD for hyperglycemia management instructions Do NOT hold for NPO status., Indications: Diabetes MellitusIndications:Diabetes Mellitus Given 12/19/2019 11:54 PM CDT 2 Units Left Upper Arm insulin lispro (HumaLOG, ADMELOG) injection 1-4 Units 1-4 Units, subcutaneous, Every 24 hours, First dose on 12/20/19 at 0200, Blood Sugar High Dose 02:00 - PO patients 139 or less No insulin 140 - 175 1 unit 176 - 200 2 units 201 - 250 3 units 251 - 299 4 units Greater than 299 Call MD for hyperglycemia management instructions Do NOT hold for NPO status., Indications: Diabetes MellitusIndications:Diabetes Mellitus Given 12/21/2019 3:32 AM CDT 1 Units Right Upper Arm insulin lispro (HumaLOG, ADMELOG) injection 1-7 Units 1-7 Units, subcutaneous, 3 times daily with meals, First dose on 12/19/19 at 1200, Blood Sugar High Dose meal time - PO patients 139 or less No insulin 140 - 175 2 unit 176 - 200 3 unit 201 - 250 5 units 251 - 299 7 units Greater than 299 Call MD for hyperglycemia management instructions Do NOT hold for NPO status., Indications: Diabetes MellitusIndications:Diabetes Mellitus Given 12/19/2019 12:21 PM CDT 5 Units Left Upper Arm insulin lispro (HumaLOG, ADMELOG) injection 1-7 Units 1-7 Units, subcutaneous, 3 times daily with meals, First dose on 12/19/19 at 1800, Blood Sugar High Dose meal time - PO patients 139 or less No insulin 140 - 175 2 unit 176 - 200 3 unit 201 - 250 5 units 251 - 299 7 units Greater than 299 Call MD for hyperglycemia management instructions Do NOT hold for NPO status., Indications: Diabetes MellitusIndications:Diabetes Mellitus Given 12/21/2019 11:53 AM CDT 3 Units Left Lower Abdomen Given 12/21/2019 8:03 AM CDT 3 Units Le ft Lower Abdomen Given 12/20/2019 11:57 AM CDT 5 Units R ight Upper Arm insulin lispro (HumaLOG, ADMELOG) injection 25 Units 25 Units, subcutaneous, 3 times daily with meals, First dose on 12/19/19 at 1200, If BG 100 mg/dl or more, give with meals/tube feeds . If BG less than 100 mg/dl, give after meals/tube feeds. Hold pre-meal insulin if NPO, unable to eat, or BG less than 70 mg/dl. Administer pre-meal doses when patient's food tray arrives in room or after the meal in patients with poor meal intake. If patient is not eating the majority of their meal, call MD for an adjustment in patient's insulin dose., Indications: Diabetes MellitusIndications:Diabetes Mellitus Given 12/20/2019 8:19 AM CDT 25 Units Left Upper Arm Given 12/19/2019 5:21 PM CDT 25 Units Le ft Upper Arm Given 12/19/2019 12:21 PM CDT 25 Units L eft Upper Arm insulin lispro (HumaLOG, ADMELOG) injection 30 Units 30 Units, subcutaneous, 3 times daily with meals, First dose (after last modification) on 12/20/19 at 1800, If BG 100 mg/dl or more, give with meals/tube feeds . If BG less than 100 mg/dl, give after meals/tube feeds. Hold pre-meal insulin if NPO, unable to eat, or BG less than 70 mg/dl. Administer pre-meal doses when patient's food tray arrives in room or after the meal in patients with poor meal intake. If patient is not eating the majority of their meal, call MD for an adjustment in patient's insulin dose., Indications: Diabetes MellitusIndications:Diabetes Mellitus Given 12/21/2019 11:53 AM CDT 30 Units Right Lower Abdomen Given 12/21/2019 8:03 AM CDT 30 Units Le ft Lower Abdomen Given 12/20/2019 5:36 PM CDT 30 Units Ri ght Upper Arm insulin lispro (HumaLOG, ADMELOG) injection 35 Units 35 Units, subcutaneous, 3 times daily with meals, First dose (after last modification) on 12/20/19 at 1200, If BG 100 mg/dl or more, give with meals/tube feeds . If BG less than 100 mg/dl, give after meals/tube feeds. Hold pre-meal insulin if NPO, unable to eat, or BG less than 70 mg/dl. Administer pre-meal doses when patient's food tray arrives in room or after the meal in patients with poor meal intake. If patient is not eating the majority of their meal, call MD for an adjustment in patient's insulin dose., Indications: Diabetes MellitusIndications:Diabetes Mellitus Given 12/20/2019 11:57 AM CDT 35 Units Right Upper Arm insulin lispro (HumaLOG, ADMELOG) injection 4 Units 4 Units, subcutaneous, Once, On 12/19/19 at 0130, For 1 dose, Indications: HyperglycemiaIndications:Hyp erglycemia Given 12/19/2019 1:06 AM CDT 4 Units Left Upper Abdomen insulin lispro (HumaLOG, ADMELOG) injection 6 Units 6 Units, subcutaneous, Once, On Sat12/18/19 at 2112, For 1 dose Given 12/18/2019 9:45 PM CDT 6 Units Left Upper Arm insulin NPH (HumuLIN N, NovoLIN N) injection 35 Units 35 Units, subcutaneous, Every 8 hours, First dose on Sat12/18/19 at 1855 Given 12/18/2019 7:27 PM CDT 35 Units Left Upper Arm insulin NPH (HumuLIN N, NovoLIN N) injection 45 Units 45 Units, subcutaneous, Every 8 hours, First dose (after last modification) on 12/19/19 at 0300 Given 12/19/2019 12:22 PM CDT 45 Units Left Upper Arm Given 12/19/2019 3:35 AM CDT 45 Units Le ft Upper Arm insulin NPH (HumuLIN N, NovoLIN N) injection 50 Units 50 Units, subcutaneous, Every 8 hours, First dose (after last modification) on 12/19/19 at 1900 Given 12/20/2019 2:45 AM CDT 50 Units Ri ght Upper Arm Given 12/19/2019 6:38 PM CDT 50 Units Le ft Upper Arm insulin NPH (HumuLIN N, NovoLIN N) injection 55 Units 55 Units, subcutaneous, Every 8 hours, First dose (after last modification) on 12/20/19 at 1100 Given 12/21/2019 8:03 AM CDT 55 Units Right Lower Abdomen Given 12/20/2019 9:59 PM CDT 55 Units Ri ght Upper Arm Given 12/20/2019 11:57 AM CDT 55 Units R ight Upper Arm insulin regular (HumuLIN R, NovoLIN R) injection 10 Units 10 Units, intravenous, Once, On Sat12/18/19 at 1425, For 1 dose, Indications: HyperglycemiaIndications:Hyperg lycemia Given 12/18/2019 4:38 PM CDT 10 Units Lactated Ringer's (LR) bolus 1,000 mL 1,000 mL, intravenous, at 1,000 mL/hr, Administer over 1 Hours, Once, On 12/19/19 at 0000, For 1 dose New Bag 12/19/2019 12:33 AM CDT 1,000 mL 1000 mL/hr lisinopriL (PRINIVIL,ZESTRIL) tablet 10 mg 10 mg, oral, Daily, First dose on 12/19/19 at 0900 Given 12/20/2019 8:19 AM CDT 10 mg Given 12/19/2019 8:40 AM CDT 10 mg lisinopriL (PRINIVIL,ZESTRIL) tablet 20 mg 20 mg, oral, Daily, First dose (after last modification) on 12/21/19 at 0900 Given 12/21/2019 8:02 AM CDT 20 mg sodium chloride 0.9% bolus 1,000 mL 1,000 mL, intravenous, Once, On Sat12/18/19 at 1425, For 1 dose New Bag 12/18/2019 4:20 PM CDT 1,000 mL sodium chloride 0.9% flush 0.5-20 mL 0.5-20 mL, intra-catheter, Every 8 hours scheduled, First dose on 12/19/19 at 0000, Flush volume based on line type and size. Given 12/21/2019 7:55 AM CDT 10 mL Given 12/20/2019 10:00 PM CDT 10 mL Given 12/20/2019 5:38 PM CDT 10 mL documented in this encounter Discontinued Medications Medication Sig Discontinue Reason Start Date End Da te insulin lispro (HumaLOG) 100 unit/mL injectionIndications:Di abetic ketoacidosis without coma associated with other specified diabetes mellitus (HCC) Inject 10 Units under the skin 3 (three) times a day with meals 03/19/2019 12/18/2019 dulaglutide (TRULICITY) 0.75 mg/0.5 mL pen injector Inject 0.5 mL (0.75 mg total) under the skin every 7 days Stop Taking at Discharge 12/21/2019 12/21/2019 insulin regular U-500 (HumuLIN R U-500, Conc, Kwikpen) 500 unit/mL (3 mL) CONCENTRATED injection Inject 75 units three times daily with meals for a week, then inject 70 units three times daily. Reorder 05/27/2019 12/21/2019 indapamide (LOZOL) 2.5 mg tablet Take 1 tablet (2.5 mg total) by mouth every morning Stop Taking at Discharge 07/23/2018 12/21/2019 lisinopril (PRINIVIL,ZESTRIL) 5 mg tabletIndications:Diabe tic ketoacidosis without coma associated with other specified diabetes mellitus (HCC) Take 2 tablets (10 mg total) by mouth daily Stop Taking at Discharge 05/27/2019 12/21/2019 documented as of this encounter Active and Recently Administered Medications Times are shown in CDT. Scheduled Medication Order 12/19/2019 12/20/2019 12/21/2019 atorvastatin (LIPITOR) tablet 20 mg 20 mg, oral, Daily, First dose on 12/19/19 at 0900 0839 (Given - Provider: Emily Byrd RN) 0819 (Given - Provider: Emily Byrd RN) 0802 (Given - Provider: Lynne Sanderson RN) carvediloL (COREG) tablet 25 mg 25 mg, oral, 2 times daily with meals (bkfst, dinner), First dose on 12/19/19 at 0800 0840 (Given - Provider: Emily Byrd, RN)1721 (Given - Provider: Emily Byrd, RN) 0821 (Given - Provider: Emily Byrd RN)1736 (Given - Provider: Emily Byrd RN) 0803 (Given - Provider: Lynne Sanderson, BRYANNA) enoxaparin (LOVENOX) syringe 40 mg 40 mg, subcutaneous, Every 12 hours scheduled, First dose on 12/19/19 at 0000, Indications: Deep Vein Thrombosis Prevention 0034 (Given - Provider: Shea Pina, BRYANNA)0839 (Given - Provider: Emily Byrd, RN)2345 (Given - Provider: Priscila Martinez, BRYANNA) 0819 (Given - Provider: Emily Byrd RN)2200 (Given - Provider: Priscila Martinez, BRYANNA) 0803 (Given - Provider: Lynne Sanderson RN) insulin lispro (HumaLOG, ADMELOG) injection 1-4 Units (CANCELED) 1-4 Units, subcutaneous, Every 4 hours scheduled, First dose on 12/19/19 at 0000, Blood Sugar High Dose - NPO patients 139 or less No insulin 140 - 175 1 unit 176 - 200 2 unit 201 - 250 3 units 251 - 299 4 units Greater than 299 Call MD for hyperglycemia management instructions Do NOT hold for NPO status., Indications: Diabetes Mellitus 0105 (Not Given - Provider: Shea Pina RN - Reason: Order parameters not met)0335 (Given - Provider: Shea Pina RN)0839 (Given - Provider: Emily Byrd, BRYANNA) insulin lispro (HumaLOG, ADMELOG) injection 1-4 Units 1-4 Units, subcutaneous, Nightly, First dose on 12/19/19 at 2100, Blood Sugar High Dose PM - PO patients 139 or less No insulin 140 - 175 1 unit 176 - 200 2 units 201 - 250 3 units 251 - 299 4 units Greater than 299 Call MD for hyperglycemia management instructions Do NOT hold for NPO status., Indications: Diabetes Mellitus 2354 (Given - Provider: Priscila Martinez RN - Comment: bs 197) 220 (Not Given - Provider: Priscila Martinez RN - Reason: Order parameters not met - Comment: bs 131) insulin lispro (HumaLOG, ADMELOG) injection 1-4 Units 1-4 Units, subcutaneous, Every 24 hours, First dose on 12/20/19 at 0200, Blood Sugar High Dose 02:00 - PO patients 139 or less No insulin 140 - 175 1 unit 176 - 200 2 units 201 - 250 3 units 251 - 299 4 units Greater than 299 Call MD for hyperglycemia management instructions Do NOT hold for NPO status., Indications: Diabetes Mellitus 0200 (Not Given - Provider: Priscila Martinez, BRYANNA - Reason: Other - Comment: EPIC downtime/ pt received NPH insulin and was not going to have a snack) 0332 (Given - Provider: Priscila Martinez, BRYANNA) insulin lispro (HumaLOG, ADMELOG) injection 1-7 Units (CANCELED) 1-7 Units, subcutaneous, 3 times daily with meals, First dose on 12/19/19 at 1200, Blood Sugar High Dose meal time - PO patients 139 or less No insulin 140 - 175 2 unit 176 - 200 3 unit 201 - 250 5 units 251 - 299 7 units Greater than 299 Call MD for hyperglycemia management instructions Do NOT hold for NPO status., Indications: Diabetes Mellitus 1221 (Given - Provider: Emily Byrd RN) insulin lispro (HumaLOG, ADMELOG) injection 1-7 Units 1-7 Units, subcutaneous, 3 times daily with meals, First dose on 12/19/19 at 1800, Blood Sugar High Dose meal time - PO patients 139 or less No insulin 140 - 175 2 unit 176 - 200 3 unit 201 - 250 5 units 251 - 299 7 units Greater than 299 Call MD for hyperglycemia management instructions Do NOT hold for NPO status., Indications: Diabetes Mellitus 1722 (Given - Provider: Emily Byrd, RN) 0818 (Given - Provider: Emily Byrd, RN)1157 (Given - Provider: Emily Byrd, BRYANNA)1743 (Not Given - Provider: Emily Byrd RN - Reason: Order parameters not met) 0803 (Given - Provider: Lynne Sanderson, BRYANNA)1153 (Given - Provider: Lynne Sanderson RN) insulin lispro (HumaLOG, ADMELOG) injection 25 Units (CANCELED) 25 Units, subcutaneous, 3 times daily with meals, First dose on 12/19/19 at 1200, If BG 100 mg/dl or more, give with meals/tube feeds . If BG less than 100 mg/dl, give after meals/tube feeds. Hold pre-meal insulin if NPO, unable to eat, or BG less than 70 mg/dl. Administer pre-meal doses when patient's food tray arrives in room or after the meal in patients with poor meal intake. If patient is not eating the majority of their meal, call MD for an adjustment in patient's insulin dose., Indications: Diabetes Mellitus 1221 (Given - Provider: Emily Byrd RN)1721 (Given - Provider: Emily Byrd RN) 0819 (Given - Provider: Emily Byrd RN) insulin lispro (HumaLOG, ADMELOG) injection 30 Units 30 Units, subcutaneous, 3 times daily with meals, First dose (after last modification) on 12/20/19 at 1800, If BG 100 mg/dl or more, give with meals/tube feeds . If BG less than 100 mg/dl, give after meals/tube feeds. Hold pre-meal insulin if NPO, unable to eat, or BG less than 70 mg/dl. Administer pre-meal doses when patient's food tray arrives in room or after the meal in patients with poor meal intake. If patient is not eating the majority of their meal, call MD for an adjustment in patient's insulin dose., Indications: Diabetes Mellitus 1736 (Given - Provider: Emily Byrd RN) 0803 (Given - Provider: Lynne Sanderson RN)1153 (Given - Provider: Lynne Sanderson, BRYANNA) insulin lispro (HumaLOG, ADMELOG) injection 35 Units (CANCELED) 35 Units, subcutaneous, 3 times daily with meals, First dose (after last modification) on 12/20/19 at 1200, If BG 100 mg/dl or more, give with meals/tube feeds . If BG less than 100 mg/dl, give after meals/tube feeds. Hold pre-meal insulin if NPO, unable to eat, or BG less than 70 mg/dl. Administer pre-meal doses when patient's food tray arrives in room or after the meal in patients with poor meal intake. If patient is not eating the majority of their meal, call MD for an adjustment in patient's insulin dose., Indications: Diabetes Mellitus 1157 (Given - Provider: Emily Byrd RN) insulin lispro (HumaLOG, ADMELOG) injection 4 Units (COMPLETED) 4 Units, subcutaneous, Once, On 12/19/19 at 0130, For 1 dose, Indications: Hyperglycemia 0106 (Given - Provider: Shea Pina, BRYANNA) insulin NPH (HumuLIN N, NovoLIN N) injection 45 Units (CANCELED) 45 Units, subcutaneous, Every 8 hours, First dose (after last modification) on 12/19/19 at 0300 0335 (Given - Provider: Shea Pina RN)1222 (Given - Provider: Emily Byrd, BRYANNA) insulin NPH (HumuLIN N, NovoLIN N) injection 50 Units (CANCELED) 50 Units, subcutaneous, Every 8 hours, First dose (after last modification) on 12/19/19 at 1900 1838 (Given - Provider: Emily Byrd, BRYANNA) 0245 (Given - Provider: Priscila Martinez, BRYANNA) insulin NPH (HumuLIN N, NovoLIN N) injection 55 Units 55 Units, subcutaneous, Every 8 hours, First dose (after last modification) on 12/20/19 at 1100 1157 (Given - Provider: Emily Byrd, BRYANNA)2159 (Given - Provider: Priscila Martinez, BRYANNA) 0803 (Given - Provider: Lynne Sanderson RN) Lactated Ringer's (LR) bolus 1,000 mL (COMPLETED) 1,000 mL, intravenous, at 1,000 mL/hr, Administer over 1 Hours, Once, On 12/19/19 at 0000, For 1 dose 0033 (New Bag - Provider: Shea Pina RN) lisinopriL (PRINIVIL,ZESTRIL) tablet 10 mg (CANCELED) 10 mg, oral, Daily, First dose on 12/19/19 at 0900 0840 (Given - Provider: Emily Byrd RN) 0819 (Given - Provider: Emily ByrdBRYANNA) lisinopriL (PRINIVIL,ZESTRIL) tablet 20 mg 20 mg, oral, Daily, First dose (after last modification) on Sat12/21/19 at 0900 0802 (Given - Provider: Lynne Sanderson RN) sodium chloride 0.9% flush 0.5-20 mL 0.5-20 mL, intra-catheter, Every 8 hours scheduled, First dose on 12/19/19 at 0000, Flush volume based on line type and size. 0034 (Given - Provider: Shea Pina, BRYANNA)0336 (Given - Provider: Shea Pina, RN)0611 (Given - Provider: Shea Pina, BRYANNA)1224 (Given - Provider: Emily Byrd, BRYANNA)2346 (Given - Provider: Priscila Martinez, BRYANNA) 0743 (Given - Provider: Priscila Martinez, BRYANNA)1738 (Given - Provider: Emily Byrd, BRYANNA)2200 (Given - Provider: Priscila Martinez, BRYANNA) 0755 (Given - Provider: Priscila Martinez RN) PRN Medication Order 12/19/2019 12/20/2019 12/21/2019 acetaminophen (TYLENOL) tablet 650 mg 650 mg, oral, Every 4 hours PRN, headaches, Starting on 12/19/19 at 0955 dextrose (D10W) 10% bolus 250 mL(Linked Group 1) 250 mL, intravenous, at 1,000 mL/hr, Administer over 15 Minutes, Every 15 min PRN, blood glucose less than 70 mg/dL and UNABLE to swallow/take PO glucose/juice., Starting on Sat12/18/19 at 2359, After treatment for hypoglycemia, recheck BG followed by treatment every 15 minutes until the BG is greater than 100 mg/dL. Then check BG 1 hour post treatment. If BG is less than 100 mg/dL, repeat Q15 minute BG checks and treatment. Call MD for each episode of hypoglycemia., Indications: hypoglycemic disorder dextrose (GLUTOSE) 40 % gel 15 g(Linked Group 1) 15 g, oral, Every 15 min PRN, low blood sugar, blood glucose less than 70 mg/dL, Starting on Sat12/18/19 at 2359, If patient is alert and able to [...] Call MD for each episode of hypoglycemia. SOCIAL SERVICE LIAISON STATES GLUTOSE-15 CONTAINS GLUCOSE 40% W/W (50% W/V), Indications: hypoglycemic disorder glucagon injection 1 mg 1 mg, intramuscular, Administer over 1 Minutes, Every 30 min PRN, low blood sugar, blood glucose less than 70 mg/dL AND no IV access AND unable to take PO glucose/jiuce., Starting on Sat12/18/19 at 2359, After Glucagon is administered, position patient on [...] for each episode of hypoglycemia., Indications: Hypoglycemia sodium chloride 0.9% flush 0.5-20 mL 0.5-20 mL, intra-catheter, As needed, line care, Starting on Sat12/18/19 at 2359, Flush volume based on line type and size. Flush before and after each use. Linked Groups Order Group 1: dextrose (GLUTOSE) 40 % gel 15 gJump to med 15 g, oral, Every 15 min PRN, low blood sugar, blood glucose less than 70 mg/dL, Starting on Sat12/18/19 at 2359, If patient is alert and able to [...] Call MD for each episode of hypoglycemia. SOCIAL SERVICE LIAISON STATES GLUTOSE-15 CONTAINS GLUCOSE 40% W/W (50% W/V), Indications: hypoglycemic disorder Or dextrose (D10W) 10% bolus 250 mLJump to med 250 mL, intravenous, at 1,000 mL/hr, Administer over 15 Minutes, Every 15 min PRN, blood glucose less than 70 mg/dL and UNABLE to swallow/take PO glucose/juice., Starting on Sat12/18/19 at 2359, After treatment for hypoglycemia, recheck BG followed [...] Count Last Ordered Date First Ordered Date acetaminophen (TYLENOL) tablet 650 mg 1 insulin lispro (HumaLOG, ADM ELOG) injection 1-4 Units 1 12/19/2019 dextrose (D10W) 10% bolus 250 mL 12/18/19 20 dextrose (GLUTOSE) 40 % gel 15 g 12/18/19 20 glucagon injection 1 mg 12/18/2019 sodium chloride 0.9% flush 0.5-20 mL 1 12/04 Lab Orders Without Results Count Last Ordered D ate First Ordered Date POCT GLUCOSE DEVICE 14 12/21/2019 12/18/19 Nursing Count Last Ordered Date First Orde red Date NURSING COMMUNICATION 12/18/2019 Consult Count Last Ordered Date First Orde red Date IP CONSULT TO ENDOCRINOLOGY 12/18/2019 ADT Patient Update Count Last Ordered Date Firs t Ordered Date ED IP DECISION TO ADMIT 12/18/2019 documented in this encounter Care Teams Dog License Officer Supervisor Relationship Specialty Start Date End Date Jann Burrows MD [address] [facility] [address] [place] [address] PCP - General Hematology 03/13/19 10/28/21 documented as of this encounter
--- OUTSIDE RECORDS SUMMARY | 2024-05-10 17:15 | XMS_ITS | Encounter Summary ---
Author Organization [facility] Address [address] [place] [address] Phone Care Team Providers Care Track Laborer Name Role Phone Jann Burrows MD Primary Care Provider [phone] Reason for Visit * Reason Onset Date Comments Prior Auth 08/17/2019 Prior Auth Metfo rmin 500 mg tablets Encounter Details Date Type Department Care Team (Late st Contact Info) Description 08/17/2019 Telephone [facility] Endocrinology Metabolism and Lipid [address] [facility] Advanced Medicine 5th [place] [address] [place] [address] Noemí Najera LPN Prior Auth (Prior Auth Metformin 500 mg tablets ) Social History Tobacco Use Types Packs/Day Years Used Date Smoking Tobacco: Never Smokeless Tobacco: Never Alcohol Use Standard Drinks/Week Comments Yes 24 (1 standard drink = 0.6 oz pu re alcohol) CAGE negative. Case per week. 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 Patient picked up and paid the $8 it cost. * Telephone Encounter - Peter Styles MD - 08/19/2019 2:16 PM CDT Noemí, I have never seen this happen before. Can you find out who is refusing the metformin (pharmacy or insurance) and what they want. We can change the metformin to 1000 mg tabs BID if needed. However, this change can be done by the pharmacist. It does not require a new prescription. * Telephone Encounter - Jyotsna Taylor - 08/17/2019 10:12 AM CDT Metformin was denied due to same dose being able to be reached with fewer but higher dose tablets. * Telephone Encounter - Noemí Najera LPN - 08/17/2019 9:02 AM CDT surescripts [id number] [phone] [id number] documented in this encounter Plan of Treatment Not on file documented as of this encounter Visit Diagnoses Not on filedocumented in this encounter Additional Health Concerns Infection Onset Date Last Indicated Resolved Time COVID: Suspected 08/11/2019 08/11/2019 08/25/2019 3:06 AM CDT documented as of this encounter Care Teams Track Laborer Relationship Specialty Start Date End Date Jann Burrows MD [address] [facility] [address] [place] [address] PCP - General Hematology 03/13/19 10/28/21 documented as of this encounter
--- OUTSIDE RECORDS SUMMARY | 2024-05-10 17:15 | XMS_ITS | Encounter Summary ---
Author Organization [facility] Healthcare Address [address] [place] [address] Care Team Providers Care Director Athletic Name Role Phone Jann Burrows MD Primary Care Provider [phone] Reason for Visit * Reason Onset Date Comments Follow-up 10/26/2019 Encounter Details Date Type Department Care Team (Late st Contact Info) Description 10/26/2019 Telephone [facility] [address] [facility] [address] [place], [place] [id number] Jann Burrows MD [address] [facility] [address] [place], [place] [id number] Follow-up Social History Tobacco Use Types Packs/Day Years Used Date Smoking Tobacco: Never Smokeless Tobacco: Never Alcohol Use Standard Drinks/Week Comments Yes 24 (1 standard drink = 0.6 oz pu re alcohol) CAGE negative. Case per week. 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 Burrows, Patient requesting a referral for foot care, he states he has ingrown toe nails. Please follow up with patient at [phone]. Jose Campoverde [phone] documented in this encounter Plan of Treatment Not on file documented as of this encounter Visit Diagnoses Not on filedocumented in this encounter Care Teams Director Athletic Relationship Specialty Start Date End Date Jann Burrows MD [address] [facility] [address] [place] [address] PCP - General Hematology 03/13/19 10/28/21 documented as of this encounter
--- OUTSIDE RECORDS SUMMARY | 2024-05-10 17:15 | XMS_ITS | Encounter Summary ---
Author Organization [facility] Healthcare Address [address] [place] [address] Care Team Providers Care Haircutter Name Role Phone Jann Burrows MD Primary Care Provider [phone] Encounter Details Date Type Department Care Team (Late st Contact Info) Description 08/11/[address] [facility] Medicine [facility] [address] [facility] [address] [place], [place] [id number] Karla Rossi MD [address] [facility] [address] [place] [address] Social History Tobacco Use Types Packs/Day Years Used Date Smoking Tobacco: Never Smokeless Tobacco: Never Alcohol Use Standard Drinks/Week Comments Yes 24 (1 standard drink = 0.6 oz pu re alcohol) CAGE negative. Case per week. 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 Recommended he reach out to providers there for a work note if needed. He will call the clinic back if he is unable to be provided with one. Please task admin with this if patient does call back as I am not patient's PCP. documented in this encounter Plan of Treatment Not on file documented as of this encounter Visit Diagnoses Not on filedocumented in this encounter Care Teams Haircutter Relationship Specialty Start Date End Date Jann Burrows MD [address] [facility] [address] [place] [address] PCP - General Hematology 03/13/19 10/28/21 documented as of this encounter
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
--- OUTSIDE RECORDS SUMMARY | 2024-05-10 17:15 | XMS_ITS | Encounter Summary ---
Author Organization [facility] Address [address] [place] [address] Phone Care Team Providers Care Tractor Operator Helper Name Role Phone Jann Burrows MD Primary Care Provider [phone] Encounter Details Date Type Department Care Team (Late st Contact Info) Description 08/13/2019 Documentation [facility] Endocrinology Metabolism and Lipid [address] [facility] [address] [facility] 5th [place] [address] [place] [id number] Peter Styles Jr., MD [address] [place] [address] Social History Tobacco Use Types Packs/Day Years Used Date Smoking Tobacco: Never Smokeless Tobacco: Never Alcohol Use Standard Drinks/Week Comments Yes 24 (1 standard drink = 0.6 oz pu re alcohol) CAGE negative. Case per week. 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 Not on file Not on file documented as of this encounter Progress Notes * Peter Styles MD - 08/13/2019 11:03 AM CDT error documented in this encounter Plan of Treatment Not on file documented as of this encounter Visit Diagnoses Not on filedocumented in this encounter Additional Health Concerns Infection Onset Date Last Indicated Resolved Time COVID: Suspected 08/11/2019 08/11/2019 08/25/2019 3:06 AM CDT documented as of this encounter Care Teams Tractor Operator Helper Relationship Specialty Start Date End Date Jann Burrows MD [address] [facility] [address] [place] [address] PCP - General Hematology 03/13/19 10/28/21 documented as of this encounter
--- OUTSIDE RECORDS SUMMARY | 2024-05-10 17:15 | XMS_ITS | Encounter Summary ---
Author Organization [facility] Address [address] [place] [address] Care Team Providers Care Customer Solutions Coordinator Name Role Phone Jann Burrows MD Primary Care Provider [phone] Encounter Details Date Type Department Care Team (Late st Contact Info) Description 08/03/2019 Patient Self-Triage [facility]/ Physicians [address] [place] [address] Mychart, Generic Provider [address] [place] [address] Social History Tobacco Use Types Packs/Day Years Used Date Smoking Tobacco: Never Smokeless Tobacco: Never Alcohol Use Standard Drinks/Week Comments Yes 24 (1 standard drink = 0.6 oz pu re alcohol) CAGE negative. Case per week. 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
--- OUTSIDE RECORDS SUMMARY | 2024-05-10 17:15 | XMS_ITS | Encounter Summary ---
Author Organization [facility] Address [address] [place] [id number] Care Team Providers Care Railroad Emergency Services Manager Name Role Phone Jann Burrows MD Primary Care Provider [phone] Reason for Visit * Reason Onset Date Comments COVID-19 EVALUATION 08/11/2019 Encounter Details Date Type Department Care Team (Late st Contact Info) Description 08/11/2019 Telephone [facility] HealthCare/ Physicians [address] [place] [id number] Janette Merritt, RN COVID-19 EVALUATION Social History Tobacco Use Types Packs/Day Years Used Date Smoking Tobacco: Never Smokeless Tobacco: Never Alcohol Use Standard Drinks/Week Comments Yes 24 (1 standard drink = 0.6 oz pu re alcohol) CAGE negative. Case per week. 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 Yes Do you have a cough or shortness of breath? Yes Do you live in a residential, custodial facility or other group setting? No Are you 65 years old or older? No Do you have diabetes with complications, such as damage to your kidneys, nervous system or eyes? Yes Do you have congestive heart failure? No Are you immunosuppressed? No Are you currently receiving treatment for cancer? No Do you have chronic lung disease? No Are you on dialysis? No Are you ? No Have you traveled outside of the [place] in the last 14 days? No Have you traveled inside of the [place] in the last 14 days? No Have you been in close contact with someone with symptomatic, test-positive or test-pending COVID-19? No Testing Site Location [facility] documented in this encounter Plan of Treatment Not on file documented as of this encounter Visit Diagnoses Not on filedocumented in this encounter Additional Health Concerns Infection Onset Date Last Indicated Resolved Time COVID: Suspected 08/11/2019 08/11/2019 08/25/2019 3:06 AM CDT documented as of this encounter Care Teams Railroad Emergency Services Manager Relationship Specialty Start Date End Date Jann Burrows MD [id number] [place] [address] PCP - General Hematology 03/13/19 10/28/21 documented as of this encounter
--- OUTSIDE RECORDS SUMMARY | 2024-05-10 17:16 | XMS_ITS | Encounter Summary ---
Author Organization [facility] Facility Care Team Providers Care Lawn Mower Operator Name Role Phone Unavailable Primary Care Provider Unavailabl e Encounter Details Date Type Department Care Team (Late st Contact Info) Description 03/03/2010 4:54 PM CDT - 03/03/2010 11:59 PM CDT Hospital Encounter [facility] Haris Ingram MD [address] [place] [address] [place] [phone] Elevated blood-pressure reading without diagnosis of hypertension; Dysmetabolic syndrome X Social History Tobacco Use Types Packs/Day Years Used Date Smoking Tobacco: Never Assessed Sex and Gender Information Value Date Recorded Sex Assigned at Not on file 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
--- OUTSIDE RECORDS SUMMARY | 2024-05-10 17:16 | XMS_ITS | Encounter Summary ---
Author Organization [facility] Address [address] [place] [address] Care Team Providers Care Waste Disposal Plant Operator Name Role Phone Unavailable Primary Care Provider Unavailabl e Encounter Details Date Type Department Care Team (Late st Contact Info) Description 08/13/2016 10:22 AM CDT - 08/13/2016 11:59 PM CDT Hospital Encounter [facility] [phone] Astrid Campbell MD [address] [facility] [address] [place] [address] Discharge Disposition: Discharge to home or self care Social History Tobacco Use Types Packs/Day Years Used Date Smoking Tobacco: Never Assessed Sex and Gender Information Value Date Recorded Sex Assigned at Not on file 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 Gender Identity Male 12/18/2017 12:38 PM CDT Sexual Orientation Not on file documented as of this encounter Discharge Disposition Disposition Code Departure Means Destination Discharge to home or self care documented in this encounter Plan of Treatment Not on file documented as of this encounter Procedures Procedure Name Priority Date/Time Associated Diagnosis Comments LIPID PANEL Routine 08/13/2016 10:46 AM CDT COMPREHENSIVE METABOLIC PANEL Routine 08/13/2016 10:46 AM CDT documented in this encounter Results * (ABNORMAL) Lipid panel (08/13/2016 10:46 AM CDT) Cholesterol 174 <=199 mg/dL [facility] Comment: Interpretive Data Age less than or = 19 years: <200 mg/dL Acceptable: ? <170 mg/dL Borderline High: ?? 170-199 mg/dL High: ? Greater than or = 200 mg/dL Age greater than or = 20 years: ??<240 mg/dL Desirable: ? <200 mg/dL Borderline High: ?? 200-239 mg/dL High: ?Greater than or = 240 mg/dL Literature References: 1. Expert Panel on Integrated Guidelines for Cardiovascular Health and Risk Reduction in Children and Adolescents. Pediatrics 2011;128:S213. 2. National Cholesterol Education Program (NCEP) Expert Panel on Detection, Evaluation, and Treatment of High Blood Cholesterol in Adults (Adult Treatment Panel III). Circulation 2004;110:227. Current interpretive data was last revised on 2013. Triglycerides 286(H) <=129 mg/dL [facility] Comment: Interpretive Data Age less than or = 9 years: ? <100 mg/dL Acceptable: ?<75 mg/dL Borderline High: ? 75-99 mg/dL ?? High: ?Greater than or = 100 mg/dL Age 10-19 years: ?<130 mg/dL Acceptable: ?<90 mg/dL Borderline High: ?90-129 mg/dL ?? High: ?Greater than or = 130 mg/dL Age greater than or = 20 years: <200 mg/dL Desirable: ?<150 mg/dL ?? Borderline High: ? 150-199 mg/dL ?? High: ?Greater than or = 200 mg/dL Literature References: 1. Expert Panel on Integrated Guidelines for Cardiovascular ?? Health and Risk Reduction in Children and Adolescents. ?? Pediatrics 2011;128:S213. 2. National Cholesterol Education Program (NCEP) Expert ?? Panel on Detection, Evaluation, and Treatment of High ?? Blood Cholesterol in Adults (Adult Treatment Panel III). ?? Circulation 2004;110:227. Current interpretive data was last revised on 2013. HDL 25(L) >=44 mg/dL [facility] Comment: Interpretive Data Age less than or = 19 years: ??>45 mg/dL Low: ?<40 mg/dL Borderline Low: ?40-45 mg/dL Acceptable: ? >45 mg/Dl Age greater than or = 20 years: ??>40 mg/dL Low*: ?<40 mg/dL Borderline Low: ?40-59 mg/dL High: ?Greater than or = 60 mg/dL *Low HDL is considered a major risk factor for cardiovascular disease. Literature References: 1. Expert Panel on Integrated Guidelines for Cardiovascular Health and Risk Reduction in Children and Adolescents. Pediatrics 2011;128:S213. 2. National Cholesterol Education Program (NCEP) Expert Panel on Detection, Evaluation, and Treatment of High Blood Cholesterol in Adults (Adult Treatment Panel III). Circulation 2004;110:227. Current interpretive data was last revised on 2013. LDL, calculated 92 <=129 mg/dL [facility] Comment: Interpretive Data Age less than or = 19 years: ??<130 mg/dL Acceptable: ? <110 mg/dL Borderline High: ?110-129 mg/dL High: ?>130 mg/Dl Age greater than or = 20 years: ??<160 mg/dL Optimal: ? <100 mg/dL Near Optimal: ? 100-129 mg/dL Borderline High: ?130-159 mg/dL High: ?greater than or = 160 mg/dL Literature References: 1. Expert Panel on Integrated Guidelines for Cardiovascular Health and Risk Reduction in Children and Adolescents. Pediatrics 2011;128:S213. 2. National Cholesterol Education Program (NCEP) Expert Panel on Detection, Evaluation, and Treatment of High Blood Cholesterol in Adults (Adult Treatment Panel III). Circulation 2004;110:227. Current interpretive data was last revised on 2013. Non-HDL Cholesterol 149(H) <=144 mg/dL [facility] Comment: Interpretive Data Age less than or = 19 years: <145 mg/dL Acceptable: ?<120 mg/dL Borderline High: ?? 120-144 mg/dL High: ?>145 mg/Dl Age greater than or = 20 years: When triglycerides are >200 mg/dL, Non-HDL cholesterol is a secondary target of therapy with treatment goals that are 30 mg/dL greater than the LDL cholesterol target. Literature References: 1. Expert Panel on Integrated Guidelines for Cardiovascular Health and Risk Reduction in Children and Adolescents. Pediatrics 2011;128:S213. 2. National Cholesterol Education Program (NCEP) Expert Panel on Detection, Evaluation, and Treatment of High Blood Cholesterol in Adults (Adult Treatment Panel III). Circulation 2004;110:227. Current interpretive data was last revised on 2013. Blood specimen (specimen) 08/13/2016 10:46 AM CDT 08/13/2016 10:50 AM CDT us Astrid Campbell MD LAB BLOOD ORDERABLES Final Result [facility] [place] [address] * (ABNORMAL) Comprehensive metabolic panel (08/13/2016 10:46 AM CDT) Sodium 143 135 - 145 mmol/L [facility] Potassium, pl 4.5 3.3 - 4.9 mmol/L [facility] CO2 23 20 - 30 mmol/L [facility] BUN 14 8 - 25 mg/dL [facility] Glucose 117 70 - 199 mg/dL [facility] Comment: Interpretive Data Random glucose greater than or equal to 200 mg/dL with relevant clinical symptoms is diagnostic for diabetes when repeated on a subsequent day. Reference: Diabetes Care 2005;28:S37-S42. Current interpretive data was last revised on 2013. Creatinine 0.8 0.4 - 1.2 mg/dL [facility] Calcium 10.1 8.5 - 10.3 mg/dL [facility] Chloride 110 97 - 110 mmol/L [facility] Albumin 4.6 3.5 - 5.0 g/dL [facility] AST 43 10 - 50 Units/L [facility] ALT 81(H) 7 - 55 Units/L [facility] Alk phos 97 70 - 260 Units/L [facility] Bilirubin, total 0.3 0.0 - 1.2 mg/dL [facility] Protein, pl 7.2 6.5 - 8.5 g/dL [facility] Anion gap 11 2 - 15 mmol/L [facility] Blood specimen (specimen) 08/13/2016 10:46 AM CDT 08/13/2016 10:50 AM CDT Narrative [facility] - 08/13/2016 11:23 AM CDT Expiration Date: LAB Frequency Standing Order? No Client/Account Bill? No Client Account Number and Description: us Astrid Campbell MD LAB BLOOD ORDERABLES Final Result Performing Organization Address City/State/[facility] Co de Phone Number [facility] One [facility] [place] [address] documented in this encounter Visit Diagnoses Not on filedocumented in this encounter
--- OUTSIDE RECORDS SUMMARY | 2024-05-10 17:16 | XMS_ITS | Encounter Summary ---
Author Organization [facility] Facility Care Team Providers Care Welder Plasma Arc Name Role Phone Jann Burrows MD Primary Care Provider [phone] Encounter Details Date Type Department Care Team (Latest Contact Info) Description 06/03/2019 Travel Social History Tobacco Use Types Packs/Day Years Used Date Smoking Tobacco: Never Smokeless Tobacco: Never Alcohol Use Standard Drinks/Week Comments Yes 24 (1 standard drink = 0.6 oz pu re alcohol) CAGE negative. Case per week. 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
--- OUTSIDE RECORDS SUMMARY | 2024-05-10 17:16 | XMS_ITS | Encounter Summary ---
Author Organization [facility] Address [address] [place] [address] Phone Care Team Providers Care Equipment Oiler Name Role Phone Etelvina Del Cid MD Primary Care Provider + Encounter Details Date Type Department Care Team (Late st Contact Info) Description 10/09/2017 9:45 AM CDT Office Visit [facility] [address]th [place] [address] [place] [address] Jef Walton MD [address] [facility] [address] [place], [place] [id number] Benign essential hypertension (Primary Dx); Asymmetric septal hypertrophy (CMS/HCC); Morbid obesity with BMI of 50.0-59.9, adult (CMS/HCC); Low HDL (under 40) Social History Tobacco Use Types Packs/Day Years Used Date Smoking Tobacco: Never Smokeless Tobacco: Never Sex and Gender Information Value Date Recorded Sex Assigned at Not on file 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 Gender Identity Male 12/18/2017 12:38 PM CDT Sexual Orientation Not on file documented as of this encounter Last Filed Vital Signs Vital Sign Reading Time Taken Comments Blood Pressure 139/89 10/09/2017 9:38 AM CDT Pulse 86 10/09/2017 9:38 AM CDT Temperature 36.8 ??C (98.2 ??F) 10/09/2017 9:38 AM CD T Respiratory Rate - - Oxygen Saturation 96% 10/09/2017 9:38 AM CDT Inhaled Oxygen Concentration - - Weight 211.6 kg (466 lb 9.6 oz) 10/09/2017 9:38 AM CDT Height - - Body Mass Index 53.92 09/06/2017 8:04 AM CDT documented in this encounter Patient Instructions * Patient Instructions* Jef Walton MD - 10/09/2017 9:45 AM CDT Increase carvedilol to 25 mg twice a day. Continue to work on diet, reduce calories and especially simple carbohydrates. documented in this encounter Ordered Prescriptions Prescription Sig Dispense Quantity Refills Last Filled Start Date End Date carvedilol (COREG) 25 mg tablet Take 1 tablet (25 mg total) by mouth 2 (two) times a day with meals. 60 tablet 5 10/09/2017 04/16/2018 documented in this encounter Progress Notes * Jef Walton MD - 10/09/2017 9:45 AM CDT 10/09/2017 Geraldo Velez [id number] Correspondence: Etelvina Del Cid MD Patient Active Problem List Diagnosis Date Noted ??? Morbid obesity with BMI of 50.0-59.9, adult ([facility]) 07/10/2017 Assessment & Plan Note: Weight up slightly from his last visit. Counseled regarding weight loss and dietary changes. To follow up with the weight loss clinic tomorrow, being considered for bariatric surgery. ??? Low HDL (under 40) 07/10/2017 Assessment & Plan Note: Also with high TGs. Increase activity, work on weight loss and dietary changes. ??? Asymmetric septal hypertrophy ([facility]) 02/10/2016 Assessment & Plan Note: Still unclear if this represents true hypertrophic cardiomyopathy vs. Changes dues to HTN and obesity. Holter monitor with short 4 beat run of NSVT. Increase BB. ??? Benign essential hypertension 03/16/2010 Assessment & Plan Note: Will increase carvedilol to 25 mg bid. Dear Etelvina Del Cid MD: It was my pleasure to see Geraldo Velez in my office today. He is a 21 y.o. male who presents today for follow up. Since his last visit, he went to the weight loss clinic. He has been keeping a dietary log and watching calories. He has reduced carbohydrate intake. We have adjusted his bp medications. He is tolerating carvedilol. No LH, dizziness, chest pain, or SOB. No edema. Rare palpitations, mainly when walking down 3 flights at work. CURRENT MEDICATIONS: Current Outpatient Prescriptions: ??? carvedilol (COREG) 25 mg tablet, Take 1 tablet (25 mg total) by mouth 2 (two) times a day with meals., Disp: 60 tablet, Rfl: 5 ALLERGIES: No Known Allergies PHYSICAL EXAM: BP 139/89 Pulse 86 Temp 36.8 ??C (98.2 ??F) (Oral) Wt (!) 211.6 kg (466 lb 9.6 oz) SpO2 96% BMI 53.92 kg/m?? GENERAL: This is a very pleasant, very large, young, white man in no apparent distress. HEENT: Sclera anicteric. Oropharynx is clear with moist mucous membranes. NECK: Thick. No carotid bruits present. Neck veins are not distended. LUNGS: Clear to auscultation bilaterally without any rales, rhonchi, or wheezing. HEART: Normal rate with mild irregularity of the rhythm. I am unable to appreciate any murmurs, rubs, or gallops. ABDOMEN: Extremely obese, soft, and nontender. Exam limited by body habitus. EXTREMITIES: Without cyanosis, clubbing, or edema. He has 2+ radial pulses bilaterally. SKIN: Hyperpigmentation over his interphalangeal and metacarpophalangeal joints is present. RESULTS: Recent Results (from the past 1008 hour(s)) TSH reflex to free T4 Collection Time: 09/06/17 10:52 AM Result Value Ref Range TSH 2.56 0.30 - 4.20 mcUnits/mL Hepatic function panel Collection Time: 09/06/17 10:52 AM Result Value Ref Range AST 43 10 - 50 Units/L ALT 87 (H) 7 - 55 Units/L Alk phos 72 70 - 260 Units/L Bilirubin 0.5 0.1 - 1.2 mg/dL Bilirubin, direct <0.2 0.1 - 0.3 mg/dL Protein, pl 7.6 6.5 - 8.5 g/dL Albumin 4.3 3.5 - 5.0 g/dL Vitamin D 25 hydroxy Collection Time: 09/06/17 10:52 AM Result Value Ref Range Vitamin D, 25-hydroxy 16 (L) 30 - 80 ng/mL Hepatitis panel, acute Collection Time: 09/06/17 10:52 AM Result Value Ref Range HAV ab, IgM Nonreactive Nonreactive HBV Core IgM ab Nonreactive Nonreactive HCV ab Nonreactive Nonreactive HBV Surface ag Nonreactive Nonreactive Testosterone, free, total Collection Time: 09/06/17 10:52 AM Result Value Ref Range Testosterone 187 (L) 240 - 950 ng/dL Testosterone, free 6.92 5.36 - 21.2 ng/dL CBC with auto differential Collection Time: 09/06/17 11:00 AM Result Value Ref Range WBC 6.7 3.8 - 9.9 K/cumm RBC 5.29 4.30 - 5.80 M/cumm Hgb 15.8 13.0 - 17.5 g/dL Hct 45.2 38.9 - 50.3 % MCV 85.4 81.3 - 96.4 fL MCH 29.9 27.1 - 33.3 pg MCHC 35.0 32.3 - 35.7 g/dL RDW CV 12.3 11.1 - 14.9 % RDW SD 37.9 35.7 - 48.1 fL Plt 274 150 - 400 K/cumm MPV 9.6 9.1 - 12.3 fL NRBC Abs 0.00 0.00 - 0.01 K/cumm Differential, auto Collection Time: 09/06/17 11:00 AM Result Value Ref Range Neutrophils 60.7 % Immature granulocytes 0.3 % Lymphocytes 27.3 % Monocytes 8.1 % Eosinophils 3.0 % Basophils 0.6 % Neutrophil absolute 4.07 1.70 - 6.50 K/cumm Immature granulocyte absolute 0.02 0.00 - 0.10 K/cumm Lymphocytes absolute 1.83 0.80 - 3.30 K/cumm Monocyte absolute 0.54 0.20 - 0.80 K/cumm Eosinophils absolute 0.20 0.00 - 0.50 K/cumm Basophils, abs 0.04 0.00 - 0.10 K/cumm Ferritin Collection Time: 09/06/17 12:01 PM Result Value Ref Range Ferritin 337.7 30.0 - 400.0 ng/mL Vitamin B12 Collection Time: 09/06/17 12:01 PM Result Value Ref Range Cyanocobalamin (Vit B12) 524 210 - 900 pg/mL Folate Collection Time: 09/06/17 12:01 PM Result Value Ref Range Folic acid 11.3 >=5.0 ng/mL Iron profile Collection Time: 09/06/17 12:01 PM Result Value Ref Range Iron 122 50 - 150 mcg/dL TIBC 368 250 - 400 mcg/dL Transferrin 263 200 - 360 mg/dL Transferrin saturation 33.2 20.0 - 50.0 % Lab Results Component Value Date GLUCOSE 107 07/10/2017 CALCIUM 9.8 07/10/2017 SODIUM 142 07/10/2017 POTASSIUM 4.5 07/10/2017 CO2 28 07/10/2017 CHLORIDE 104 07/10/2017 BUNSER 17 07/10/2017 CREATININE 0.95 07/10/2017 Lab Results Component Value Date CHOL 157 07/10/2017 CHOL 174 08/13/2016 Lab Results Component Value Date HDL 26 (L) 07/10/2017 HDL 25 (L) 08/13/2016 Lab Results Component Value Date LDLCALC 69 07/10/2017 LDLCALC 92 08/13/2016 Lab Results Component Value Date TRIG 309 (H) 07/10/2017 TRIG 286 (H) 08/13/2016 24-hour Holter 07/10/17: HR 39-137, average 69 bpm. Rare APDs and PVCs. One 4-beat run of NSVT up to 129 bpm. No symptoms. ASSESSMENT/PLAN: Geraldo Velez is a 21 y.o. male who presents today for follow up. Benign essential hypertension Will increase carvedilol to 25 mg bid. Asymmetric septal hypertrophy (CMS/HCC) Still unclear if this represents true hypertrophic cardiomyopathy vs. Changes dues to HTN and obesity. Holter monitor with short 4 beat run of NSVT. Increase BB. Low HDL (under 40) Also with high TGs. Increase activity, work on weight loss and dietary changes. Morbid obesity with BMI of 50.0-59.9, adult (CMS/HCC) Weight up slightly from his last visit. Counseled regarding weight loss and dietary changes. To follow up with the weight loss clinic tomorrow, being considered for bariatric surgery. I will have him return to the clinic in 6 months. It was my pleasure to see Mr. Geraldo Velez today in the office. Thank you for allowing me to participate in his care. Please do not hesitate to contact me with any questions/concerns or if I may be of further assistance.. Sincerely, Jef Walton MD, MPHS, [facility] Gluing Pressmanforms analysis manager Cardiovascular Division [facility] --- Please note: This note was generated in part using voice-recognition software and may contain grain grader errors. documented in this encounter Miscellaneous Notes * Assessment & Plan Note - Jef Walton MD - 10/09/2017 10:33 AM CDT Associated Problem(s): Class 3 severe obesity in adult (HCC) Weight up slightly from his last visit. Counseled regarding weight loss and dietary changes. To follow up with the weight loss clinic tomorrow, being considered for bariatric surgery. * Assessment & Plan Note - Jef Walton MD - 10/09/2017 10:33 AM CDT Associated Problem(s): Low HDL (under 40) (Deleted) Also with high TGs. Increase activity, work on weight loss and dietary changes. * Assessment & Plan Note - Jef Walton MD - 10/09/2017 10:33 AM CDT Associated Problem(s): Asymmetric septal hypertrophy Still unclear if this represents true hypertrophic cardiomyopathy vs. Changes dues to HTN and obesity. Holter monitor with short 4 beat run of NSVT. Increase BB. * Assessment & Plan Note - Jef Walton MD - 10/09/2017 10:32 AM CDT Associated Problem(s): Essential hypertension Will increase carvedilol to 25 mg bid. documented in this encounter Plan of Treatment Not on file documented as of this encounter Visit Diagnoses Diagnosis Benign essential hypertension- Primary Essential hypertension, benign Asymmetric septal hypertrophy Morbid obesity with BMI of 50.0-59.9, adult (HCC) Low HDL (under 40) documented in this encounter Discontinued Medications Medication Sig Discontinue Reason Start Date End Da te carvedilol (COREG) 12.5 mg tablet 2 times daily. Reorder 07/10/2017 10/09/2017 documented as of this encounter Historical Medications * This list may reflect changes made after this encounter. carvedilol (COREG) 12.5 mg tablet 2 times daily. 07/10/2017 10/09/2017 added in this encounter Care Teams Equipment Oiler Relationship Specialty Start Date End Date Etelvina Del Cid MD [address] [place] [address] [place] [id number] PCP - General 08/14/16 03/10/19 documented as of this encounter
--- OUTSIDE RECORDS SUMMARY | 2024-05-10 17:16 | XMS_ITS | Encounter Summary ---
Author Organization [facility] Address [address] [place] [address] Phone Care Team Providers Care Dye Blender Name Role Phone Jann Burrows MD Primary Care Provider [phone] Reason for Visit * Consultation (Routine) - Closed Specialty Diagnoses / Procedures Referred By Contac t Referred To Contact Endocrinology Diagnoses Diabetic ketoacidosis without coma associated with other specified diabetes mellitus (HCC) Peter Styles Jr., MD Phone: tel: fax: [facility] (All Locations) Referral ID Status Reason Start Date Expiration Date V isits Requested Visits Authorized [id number] Closed Specialty Services Required 03/08/2019 05/05/2019 4 4 Encounter Details Date Type Department Care Team (Latest Contact Info) Description 03/19/2019 1:00 PM COMPOUNDING TECHNICIAN Office Visit [facility] Endocrinology Metabolism and Lipid [address] 5[address] [place] [address] [place] [address] Peter Styles Jr., MD [address] [place] [address] Acanthosis nigricans (Primary Dx); Diabetic ketoacidosis without coma associated with other specified diabetes mellitus (CMS/HCC); Type 2 diabetes mellitus with ketoacidosis without coma, without long-term current use of insulin (CMS/HCC); Metabolic syndrome Social History Tobacco Use Types Packs/Day Years Used Date Smoking Tobacco: Never Smokeless Tobacco: Never Alcohol Use Standard Drinks/Week Comments Yes 24 (1 standard drink = 0.6 oz pu re alcohol) CAGE negative. Case per week. 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 Not on file Not on file documented as of this encounter Last Filed Vital Signs Vital Sign Reading Time Taken Comments Blood Pressure 118/74 03/19/2019 1:04 PM COMPOUNDING TECHNICIAN Pulse 79 03/19/2019 1:04 PM COMPOUNDING TECHNICIAN Temperature 35.4 ??C (95.7 ??F) 03/19/2019 1:04 PM CS T Respiratory Rate - - Oxygen Saturation - - Inhaled Oxygen Concentration - - Weight 206.4 kg (455 lb) 03/19/2019 1:04 PM COMPOUNDING TECHNICIAN Height 200.7 cm (6' 7 ) 03/19/2019 1:04 PM COMPOUNDING TECHNICIAN Body Mass Index 51.26 03/19/2019 1:04 PM COMPOUNDING TECHNICIAN documented in this encounter Patient Instructions * Patient Instructions* Peter Styles MD - 03/19/2019 1:00 PM COMPOUNDING TECHNICIAN 1. You have excellent glucose control 2. We should try to simplify treatment if possible. 3. Increase metformin to 1000 mg twice daily (2 tabs twice daily). Do this for a week. If you have glucoses less than 70 then discontinue the meal insulin Humalog. 4. Take 90 units U500 at . This means U500 only (plus metformin). 5. Metformin sensitizes you to insulin. 6. Increase moderate exercise to nearly every day. 7. Continue on diet. Reduce carbs, but don't eliminate them. 8. We would like to end up with a regimen of metformin and U500 insulin. 9. Please sign up for MyChart 10. Try for a 1400 calorie diet (balanced). OUNDING TECHNICIAN OUNDING TECHNICIAN OUNDING TECHNICIAN documented in this encounter Ordered Prescriptions Prescription Sig Dispense Quantity Refills Last Filled Start Date End Date pen needle, diabetic (BD ULTRA-FINE RADHA PEN NEEDLE) 32 gauge x 5/32 needleIndications: Metabolic syndrome Use to test BG three times a day as instructed 450 each 3 03/19/2019 9 metFORMIN (GLUCOPHAGE) 500 mg tabletIndications: Diabetic ketoacidosis without coma associated with other specified diabetes mellitus (HCC) Take 2 tablets (1,000 mg total) by mouth 2 (two) times a day with meals 360 tablet 3 03/19/2019 1 lisinopril (PRINIVIL,ZESTRIL) 5 mg tabletIndications: Diabetic ketoacidosis without coma associated with other specified diabetes mellitus (HCC) Take 1 tablet (5 mg total) by mouth daily 90 tablet 3 03/19/2019 0 lancets miscIndications:Di abetic ketoacidosis without coma associated with other specified diabetes mellitus (HCC) Patient needs in room for diabetes education 300 each 3 03/19/2019 0 insulin regular U-500 (HumuLIN R U-500) 500 unit/mL CONCENTRATED injectionIndicatio ns:Diabetes Mellitus with Severe Insulin Resistance Inject 16 unit marking on U-100 syringe (80 Units total) under the skin 3 (three) times a day with meals 43.2 mL 3 03/19/2019 9 insulin lispro (HumaLOG) 100 unit/mL injectionIndicatio ns:Diabetic ketoacidosis without coma associated with other specified diabetes mellitus (HCC) Inject 10 Units under the skin 3 (three) times a day with meals 27 mL 3 03/19/2019 0 blood glucose diagnostic (ONETOUCH ULTRA TEST) stripIndications:D iabetic ketoacidosis without coma associated with other specified diabetes mellitus (HCC) Test daily before all meals/snacks and once before bedtime. 400 each 3 03/19/2019 0 atorvastatin (LIPITOR) 20 mg tabletIndications: Diabetic ketoacidosis without coma associated with other specified diabetes mellitus (HCC) Take 1 tablet (20 mg total) by mouth daily 90 tablet 3 03/19/2019 2 documented in this encounter Progress Notes * Peter Styles MD - 03/19/2019 1:00 PM CST Chief Complaint: New-onset diabetes and follow up for diabetic ketoacidosis. History of Present Illness: The patient is 23 y.o.??male??with PMH of HTN, obesity (BMI > 50), metabolic syndrome, and hx asymmetric septal hypertrophy (last TTE 02/13/2016, follows with Dr. Walton) presenting to the ED 03/02/19 with 1 week duration of bilateral chest tightness,dyspnea,??polyuria, and polydipsia in the setting of tachycardia found to be in diabetic ketoacidosis (BG 591, serum ketones 3.4, AG 22). [facility]. At arrival to ED, chest pain was 8/10.?? He was found to have severe insulin resistance and was discharged on a total daily dose of 270 units. He has acanthosis nigricans on hands, elbows and axillae. The patient was discharged on metformin 500 mg BID (tolerated well), 10 units Humalog TID with meals and 80 units. He tests his glucoses TID with 14-day average of 126 (84-191). Today I reviewed Allergies, Past, Family and Social Histories, and Review of Systems from the [facility] admission in [facility]. Physical Exam: Constitutional: Vital signs were reviewed [...] 5/5+ strength in upper and lower extremities. Neurologic: No focal findings. DTRs 2+ and symmetrical. Pseudomyotonia is absent. Laboratory: 07-10-17: ALT 89, acute hepatitis panel negative 03-04-19: Total cholesterol 206, triglycerides 1274, HDL 17, LDL direct 39, anti-DARREN undetectable. 03-08-19: IGF-1 101 (225-500), creatinine 0.84, insulin antibodies not detectable, Hgb 15.6, urine albumin/creatinine 59 (<30) 03-19-19: A1c 7.9%, glucose (postprandial) 120. Assessment and Plan: The patient has severe insulin resistance and type 2 diabetes with recent ketoacidosis. Antibodies to insulin and to islet cells are negative and the patient has severe acanthosis nigricans suggesting high insulin levels with a defect of insulin action in the insulin receptor pathway. He is doing well on treatment with high dose insulin and metformin. Our goal is to reduce insulin resistance and simplify his insulin regimen. He will try to lose 20 lb and use a 1400 calorie diet with reduced sugars such as sodas. I increased his metformin to 1000 mg BID. To simplify his insulin, we will first determine whether meal Humalog 10 units can be dropped or added to U500 insulin. We will attempt to end up with a regimen of metformin 1000 mg BID and U500 insulin BID. He has microalbuminuria but not other complications. We will address these factors and routine diabetic follow up for eye exams at the next visit. Medications refilled. RTC 3 months. OUNDING TECHNICIAN documented in this encounter Plan of Treatment Not on file documented as of this encounter Procedures Procedure Name Priority Date/Time Associated Diagnosis Comments POCT HEMOGLOBIN A1C Routine 03/19/2019 1 :06 PM COMPOUNDING TECHNICIAN Diabetic ketoacidosis without coma associated with other specified diabetes mellitus (CMS/HCC) POCT GLUCOSE Routine 03/19/2019 1:06 PM COMPOUNDING TECHNICIAN Diabetic ketoacidosis without coma associated with other specified diabetes mellitus (CMS/HCC) documented in this encounter Results * POCT hemoglobin A1c (03/19/2019 1:06 PM COMPOUNDING TECHNICIAN) Hemoglobin A1C, POC 7.9 03/19/2019 1:06 PM COMPOUNDING TECHNICIAN us Peter Styles Jr., MD POINT OF CARE TEST OR DERABLES Final Result * POCT glucose (03/19/2019 1:06 PM COMPOUNDING TECHNICIAN) Glucose Blood, POC 120 mg/dL Blood specimen (specimen) 03/19/2019 1:06 PM COMPOUNDING TECHNICIAN Peter Styles Jr., MD POINT OF CARE TEST OR DERABLES Final Result documented in this encounter Visit Diagnoses Diagnosis Acanthosis nigricans- Primary Acquired acanthosis nigricans Diabetic ketoacidosis without coma associated with other specified diabetes mellitus (HCC) Type 2 diabetes mellitus with ketoacidosis without coma, without long-term current use of insulin (HCC) Metabolic syndrome Dysmetabolic Syndrome X documented in this encounter Discontinued Medications Medication Sig Discontinue Reason Start Date End Da te atorvastatin (LIPITOR) 20 mg tablet Take 1 tablet (20 mg total) by mouth daily Reorder 03/08/2019 03/19/2019 blood glucose diagnostic (ONETOUCH ULTRA TEST) strip Test daily before all meals/snacks and once before bedtime. Reorder 03/05/2019 03/19/2019 insulin lispro (HumaLOG) 100 unit/mL injection Inject 10 Units under the skin 3 (three) times a day with meals Reorder 03/08/2019 03/19/2019 insulin regular U-500 (HumuLIN R U-500) 500 unit/mL CONCENTRATED injectionIndications:Di abetes Mellitus with Severe Insulin Resistance Inject 16 unit marking on U-100 syringe (80 Units total) under the skin 3 (three) times a day with meals Reorder 03/08/2019 03/19/2019 [facility] Patient needs in room for diabetes education Reorder 03/05/2019 03/19/2019 lisinopril (PRINIVIL,ZESTRIL) 5 mg tablet Take 1 tablet (5 mg total) by mouth daily Reorder 03/08/2019 03/19/2019 metFORMIN (GLUCOPHAGE) 500 mg tablet Take 1 tablet (500 mg total) by mouth 2 (two) times a day with meals 03/08/2019 03/19/2019 pen needle, diabetic (BD ULTRA-FINE RADHA PEN NEEDLE) 32 gauge x 5/32 needleIndications:Metab olic syndrome Use to test BG three times a day as instructed Reorder 03/13/2019 03/19/2019 documented as of this encounter Orders Outpatient Referral Count Last Ordered Date Fir st Ordered Date AMB REFERRAL TO ENDOCRINOLOGY 1 03/19/2019 documented in this encounter Care Teams Dye Blender Relationship Specialty Start Date End Date Jann Burrows MD [address] [place] [address] PCP - General Hematology 03/13/19 10/28/21 documented as of this encounter
--- OUTSIDE RECORDS SUMMARY | 2024-05-10 17:16 | XMS_ITS | Encounter Summary ---
Author Organization [facility] Facility Care Team Providers Care Portfolio Analyst Name Role Phone Unavailable Primary Care Provider Unavailabl e Encounter Details Date Type Department Care Team (Late st Contact Info) Description 02/27/2016 11:46 AM CDT - 02/27/2016 11:59 PM CDT Hospital Encounter [facility] Astrid Mcclain MD [address] [facility] [address] [place] [address] Other hypertrophic cardiomyopathy (CMS/HCC) Social History Tobacco Use Types Packs/Day Years Used Date Smoking Tobacco: Never Assessed Sex and Gender Information Value Date Recorded Sex Assigned at Not on file Legal Sex Male 5:01 AM COMMUNITY OUTREACH DIRECTOR Gender Identity Male 12/18/2017 12:38 PM CDT Sexual Orientation Not on file documented as of this encounter Plan of Treatment Not on file documented as of this encounter Procedures Procedure Name Priority Date/Time Associated Diagnosis Comments STRESS ECHO EXERCISE W DOPPLER/CF WO CONTRAST 02/27/2016 12:00 AM CDT documented in this encounter Results * Stress Echo Exercise W Doppler/CF WO Contrast (02/27/2016 12:00 AM CDT) Anatomical Region Laterality Modality Echocardiography Narrative 02/27/2016 12:00 AM CDT Ordered by an unspecified provider. Procedure Note ProviderMia MD - 07/02/2018 Ordered by an unspecified provider. Historical Provider CV ECHO PROCEDURES Final Result documented in this encounter Visit Diagnoses Diagnosis Other hypertrophic cardiomyopathy (CMS/HCC) (HCC) Other hypertrophic cardiomyopathy documented in this encounter
--- OUTSIDE RECORDS SUMMARY | 2024-05-10 17:16 | XMS_ITS | Encounter Summary ---
Author Organization [facility] Address [address] [place] [address] Phone Care Team Providers Care Ash Pit Worker Name Role Phone Etelvina Del Cid MD Primary Care Provider + Reason for Visit * Reason Comments Follow-up Encounter Details Date Type Department Care Team (Late st Contact Info) Description 10/10/2017 8:20 AM CDT Office Visit [facility] Diabetes and Nutrition Services [address] [facility] [facility] [address] [place] [address] Debbie Bowie MD [address] [place] [address] Weight loss counseling, encounter for (Primary Dx); Metabolic syndrome; Morbid obesity with BMI of 50.0-59.9, adult (CMS/HCC); Fatty liver; Benign essential hypertension; Low HDL (under 40); Disordered sleep Social History Tobacco Use Types Packs/Day Years Used Date Smoking Tobacco: Never Smokeless Tobacco: Never Alcohol Use Standard Drinks/Week Comments No 0 (1 standard drink = 0.6 oz pur e alcohol) Sex and Gender Information Value Date Recorded Sex Assigned at Not on file Legal Sex Male 5:01 AM HIGH SCHOOL HOME 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 Gender Identity Male 12/18/2017 12:38 PM CDT Sexual Orientation Not on file documented as of this encounter Last Filed Vital Signs Vital Sign Reading Time Taken Comments Blood Pressure 148/86 10/10/2017 8:06 AM CDT Pulse 75 10/10/2017 8:06 AM CDT Temperature 36.4 ??C (97.5 ??F) 10/10/2017 8:06 AM CDT Respiratory Rate - - Oxygen Saturation - - Inhaled Oxygen Concentration - - Weight 210.7 kg (464 lb 9.6 oz) 10/10/2017 8:06 AM CDT Height 203.2 cm (6' 8 ) 10/10/2017 8:06 AM CDT Body Mass Index 51.04 10/10/2017 8:06 AM CDT documented in this encounter Ordered Prescriptions Prescription Sig Dispense Quantity Refills Last Filled Start Date End Date cholecalciferol (VITAMIN D-3) 10,000 unit capsule Take 5 capsules (50,000 Units total) by mouth once a week. 8 capsule 1 10/10/2017 8 metFORMIN (GLUCOPHAGE) 500 mg tablet Take 1 tablet (500 mg total) by mouth 2 (two) times a day with meals. 60 tablet 1 10/10/2017 9 documented in this encounter Progress Notes * Debbie Bowie MD - 10/10/2017 8:20 AM CDT CC: Doing well; weight is stable. Visit #: 2 Interval History: Weight is the same. He has been tracking his food. Current Diet: Reviewed on phone. Weight Loss Medications: None Physical Activity: Same -- sports once a week; job is active. Current Outpatient Prescriptions Medication Sig Dispense Refill ??? carvedilol (COREG) 25 mg tablet Take 1 tablet (25 mg total) by mouth 2 (two) times a day with meals. 60 tablet 5 ??? cholecalciferol (VITAMIN D-3) 10,000 unit capsule Take 5 capsules (50,000 Units total) by mouthonce a week. 8 capsule 1 ??? metFORMIN (GLUCOPHAGE) 500 mg tablet Take 1 tablet (500 mg total) by mouth 2 (two) times a day with meals. 60 tablet 1 No current facility-administered medications for this visit. No Known Allergies Medical Conditions Diagnosis ??? Asymmetric septal hypertrophy (CMS/HCC) ??? Benign essential hypertension ??? Morbid obesity with BMI of 50.0-59.9, adult (CMS/HCC) ??? Low HDL (under 40) Review of Systems Constitutional: Negative for fatigue and fever. Respiratory: Negative for chest tightness and shortness of breath. Cardiovascular: Negative for chest pain and palpitations. Gastrointestinal: Negative for abdominal pain, constipation, diarrhea, nausea and vomiting. Neurological: Negative for light-headedness and headaches. Psychiatric/Behavioral: Negative for dysphoric mood. Physical Exam Constitutional: No distress. Pulmonary/Chest: Effort normal. No respiratory distress. Psychiatric: He has a normal mood and affect. Vitals reviewed. Physical Exam Constitutional: No distress. Pulmonary/Chest: Effort normal. No respiratory distress. Psychiatric: He has a normal mood and affect. Vitals reviewed. A/P: Labs reviewed with him. documented in this encounter Miscellaneous Notes * Assessment & Plan Note - Debbie Bowie MD - 10/13/2017 4:27 PM CDT Associated Problem(s): Disordered sleep (Resolved 05/18/2021) Sleep study * Assessment & Plan Note - Debbie Bowie MD - 10/13/2017 4:24 PM CDT Associated Problem(s): Low HDL (under 40) (Deleted) Reviewed role of diet, exercise and weight loss in improving HDL. * Assessment & Plan Note - Debbie Bowie MD - 10/13/2017 4:23 PM CDT Associated Problem(s): Essential hypertension Hypertension is unchanged. Continue current treatment regimen. Blood pressure will be reassessed at the next regular appointment. * Assessment & Plan Note - Debbie Bowie MD - 10/13/2017 4:23 PM CDT Associated Problem(s): Fatty liver Reviewed U/S. Discussed that improvement may be expected with weight loss of 15% TBW. * Assessment & Plan Note - Debbie Bowie MD - 10/13/2017 4:20 PM CDT Associated Problem(s): Class 3 severe obesity in adult (HCC) Obesity is unchanged. Diet, exercise as above. General weight loss/lifestyle modification strategies discussed (elicit support from others; identify saboteurs; non-food rewards, etc). Informal exercise measures discussed, e.g. taking stairs instead of elevator. Pharmacotherapy as ordered. * Assessment & Plan Note - Debbie Bowie MD - 10/13/2017 4:16 PM CDT Associated Problem(s): Metabolic syndrome (Deleted) Continue low-carb (<150 g/day), low-glycemic diet. Start Metformin 500mg -- take daily for the 1st week, then increase to BID. Discussed rationale in setting of insulin resistance. Discussed risks, benefits, alternatives. * Assessment & Plan Note - Debbie Bowie MD - 10/13/2017 4:15 PM CDT Associated Problem(s): Weight loss counseling, encounter for (Deleted) Reviewed calorie restriction based on BMR as previously detailed. Reviewed recommendation/goal of >/= 150 minutes/week moderate-intensity aerobic exercise. documented in this encounter Plan of Treatment Not on file documented as of this encounter Visit Diagnoses Diagnosis Weight loss counseling, encounter for- Primary Metabolic syndrome Dysmetabolic Syndrome X Morbid obesity with BMI of 50.0-59.9, adult (HCC) Fatty liver Other chronic nonalcoholic liver disease Benign essential hypertension Essential hypertension, benign Low HDL (under 40) Disordered sleep documented in this encounter Care Teams Ash Pit Worker Relationship Specialty Start Date End Date Etelvina Del Cid MD [address] [place] [address] [address] [place] [id number] PCP - General 08/14/16 03/10/19 documented as of this encounter
--- OUTSIDE RECORDS SUMMARY | 2024-05-10 17:16 | XMS_ITS | Encounter Summary ---
Author Organization [facility] Address [address] [place] [address] Phone Care Team Providers Care Pasteurizer Helper Name Role Phone Etelvina Del Cid MD Primary Care Provider + No, Physician Primary Care Provider [phone] Jann Burrows MD Primary Care Provider [phone] Mariana Monique MD Unavailable [phone] [facility] Care Provider Encounter Details Date Type Department Care Team (Latest Contact Info) Description 09/06/2017 Orders Only [facility] Scanning, Provider Social History Tobacco Use Types Packs/Day Years Used Date Smoking Tobacco: Never Sex and Gender Information Value Date Recorded Sex Assigned at Not on file Legal Sex Male 5:01 AM HAND BINDERY ASSEMBLY WORKER Gender Identity Male 12/18/2017 12:38 PM CDT Sexual Orientation Not on file documented as of this encounter Plan of Treatment Not on file documented as of this encounter Procedures Procedure Name Priority Date/Time Associated Diagnosis Comments SCAN - RADIOLOGY/IMAGING 09/06/2017 documented in this encounter Results * SCAN - RADIOLOGY/IMAGING (09/06/2017) Anatomical Region Laterality Modality Other us Provider Scanning Final Result documented in this encounter Visit Diagnoses Not on filedocumented in this encounter Additional Health Concerns Infection Onset Date Last Indicated Resolved Time COVID: Suspected 08/11/2019 08/11/2019 08/25/2019 3:06 AM CDT COVID: Suspected 01/14/2020 01/14/2020 01/14/2020 6:21 PM CDT COVID19 01/15/2020 01/15/2020 01/31/2020 3:06 AM CDT COVID: Recovered Comment:Added based on recent COVID infection. 01/31/2020 05/19/2020 05/30/2020 3:[address] documented as of this encounter Care Teams Pasteurizer Helper Relationship Specialty Start Date End Date Etelvina Del Cid MD [address] [facility] [address] [place] [address] PCP - General 08/14/16 03/10/19 No, Physician PCP - General 03/11/19 03/12/19 Jann Burrows MD [address] [place] [address] PCP - General Hematology 03/13/19 10/28/21 Keila Jimenez MD [address] [place] [address] PCP - General 10/29/21 Mariana Monique MD [address] [place] [address] Referring Physician Internal Medicine 01/17/20 documented as of this encounter
--- OUTSIDE RECORDS SUMMARY | 2024-05-10 17:16 | XMS_ITS | Encounter Summary ---
Author Organization [facility] Address [address] [place] [address] Phone Care Team Providers Care Private Security Guard Name Role Phone Jann Burrows MD Primary Care Provider [phone] Encounter Details Date Type Department Care Team (Late st Contact Info) Description 03/30/2019 Telephone [facility] Endocrinology Metabolism and Lipid [address] [facility] 5th [place] [address] [place] [phone] Emilie Mclean RN Social History Tobacco Use Types Packs/Day Years Used Date Smoking Tobacco: Never Smokeless Tobacco: Never Alcohol Use Standard Drinks/Week Comments Yes 24 (1 standard drink = 0.6 oz pu re alcohol) CAGE negative. Case per week. 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 MIXER * Telephone Encounter - Peter Styles MD - 03/31/2019 6:33 AM DOPE MIXER We are trying to simplify his regimen and use the lowest amount of insulin needed. He should be offlispro and just on metformin 1000 mg BID and U500 insulin 90 TID. Please have him try 85 units TID for a week and then go to 80 TID if there is no rise in glucoses. Thanks. MIXER * Telephone Encounter - Emilie Mclean RN - 03/30/2019 4:57 PM DOPE MIXER Spoke with patient regarding his u500 prescription. He states he has been taking 90u TID. He said his am blood sugars are 90-100. Said at lunch and dinner they are typically 110-120. He wants to know if he can stay on that dose? Thanks MIXER documented in this encounter Plan of Treatment Not on file documented as of this encounter Visit Diagnoses Not on filedocumented in this encounter Care Teams Private Security Guard Relationship Specialty Start Date End Date Jann Burrows MD [address] [address] [address] [address] [place] [address] PCP - General Hematology 03/13/19 10/28/21 documented as of this encounter
--- OUTSIDE RECORDS SUMMARY | 2024-05-10 17:16 | XMS_ITS | Encounter Summary ---
Author Organization [facility] Facility Care Team Providers Care Wood Grainer Name Role Phone Unavailable Primary Care Provider Unavailabl e Encounter Details Date Type Department Care Team (Late st Contact Info) Description 05/02/2010 9:17 AM BUS TRANSPORTATION MANAGER - 05/02/2010 11:59 PM BUS TRANSPORTATION MANAGER Hospital Encounter [facility] Etelvina Del Cid MD [address] [place] [id number] Obesity; Dietary counseling and surveillance; Body mass index, pediatric, greater than or equal to 95th percentile for age Social History Tobacco Use Types Packs/Day Years Used Date Smoking Tobacco: Never Assessed Sex and Gender Information Value Date Recorded Sex Assigned at Not on file Legal Sex Male 5:01 AM BUS TRANSPORTATION MANAGER Gender Identity Male 12/18/2017 12:38 PM CDT Sexual Orientation Not on file documented as of this encounter Plan of Treatment Not on file documented as of this encounter Visit Diagnoses Diagnosis Obesity Obesity, unspecified Dietary counseling and surveillance Body mass index, pediatric, greater than or equal to 95th percentile for age Body Mass Index, pediatric, greater than or equal to 95th percentile for age documented in this encounter
--- OUTSIDE RECORDS SUMMARY | 2024-05-10 17:16 | XMS_ITS | Encounter Summary ---
Author Organization [facility] Healthcare Address [address] [place] [address] Care Team Providers Care Traveling Electrician Name Role Phone Jann Burrows MD Primary Care Provider [phone] Encounter Details Date Type Department Care Team (Late st Contact Info) Description 05/27/2019 9:20 AM FALL INTERNSHIP Lab [facility] Outpatient Health [address] [place] [address] [place] [address] Hypoglycemia Social History Tobacco Use Types Packs/Day Years Used Date Smoking Tobacco: Never Smokeless Tobacco: Never Alcohol Use Standard Drinks/Week Comments Yes 24 (1 standard drink = 0.6 oz pu re alcohol) CAGE negative. Case per week. 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 Not on file Not on file documented as of this encounter Plan of Treatment Not on file documented as of this encounter Procedures Procedure Name Priority Date/Time Associated Diagnosis Comments HEPATIC FUNCTION PANEL Routine 05/27/2019 9:25 AM FALL INTERNSHIP Hypoglycemia BASIC METABOLIC PANEL Routine 05/27/2019 9:25 AM FALL INTERNSHIP Hypoglycemia documented in this encounter Results * Basic metabolic panel (05/27/2019 9:25 AM FALL INTERNSHIP) Sodium 141 135 - 145 mmol/L [facility] Potassium, pl 3.9 3.3 - 4.9 mmol/L [facility] Chloride 104 97 - 110 mmol/L [facility] CO2 28 22 - 32 mmol/L [facility] Anion gap 9 2 - 15 mmol/L [facility] BUN 17 8 - 25 mg/dL [facility] Creatinine 0.90 0.80 - 1.30 mg/dL [facility] Glucose 94 70 - 199 mg/dL [facility] Comment: Interpretive Data Fasting glucose >/= [...] 2017. Calcium 9.7 8.5 - 10.3 mg/dL [facility] Blood specimen (specimen) 05/27/2019 9:25 AM FALL INTERNSHIP 05/27/2019 10:18 AM FALL INTERNSHIP us Shannan Zavala MD LAB BLOOD ORDERABLES Final Re sult [facility] [place] [address] * (ABNORMAL) Hepatic function panel (05/27/2019 9:25 AM FALL INTERNSHIP) Bilirubin, total 0.3 0.1 - 1.2 mg/dL [facility] Bilirubin, direct <0.2 0.1 - 0.3 mg/dL [facility] Protein, pl 8.0 6.5 - 8.5 g/dL [facility] Albumin 4.7 3.5 - 5.0 g/dL [facility] Alk phos 61 40 - 130 Units/L [facility] ALT 69(H) 7 - 55 Units/L [facility] AST 41 10 - 50 Units/L [facility] Blood specimen (specimen) 05/27/2019 9:25 AM FALL INTERNSHIP 05/27/2019 10:18 AM FALL INTERNSHIP us Shannna Zavala MD LAB BLOOD ORDERABLES Final Re sult [facility] [place] [address] documented in this encounter Visit Diagnoses Diagnosis Hypoglycemia Hypoglycemia, unspecified documented in this encounter Care Teams Traveling Electrician Relationship Specialty Start Date End Date Jann Burrows MD [address] [facility] [address] [place] [address] PCP - General Hematology 03/13/19 10/28/21 documented as of this encounter
--- OUTSIDE RECORDS SUMMARY | 2024-05-10 17:16 | XMS_ITS | Encounter Summary ---
Author Organization [facility] Address [address] [place] [address] Phone Care Team Providers Care Yarrow Gatherer Name Role Phone Jann Burrows MD Primary Care Provider [phone] Encounter Details Date Type Department Care Team (Late st Contact Info) Description 03/23/2019 Telephone [facility] Endocrinology Metabolism and Lipid [address] [facility] 5th [place] [address] [place] [address] Che Duff LPN Social History Tobacco Use Types Packs/Day Years Used Date Smoking Tobacco: Never Smokeless Tobacco: Never Alcohol Use Standard Drinks/Week Comments Yes 24 (1 standard drink = 0.6 oz pu re alcohol) CAGE negative. Case per week. 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 Pens are preferred. TAL FORENSICS EXAMINER * Telephone Encounter - Che Duff LPN - 03/23/2019 3:34 PM CST Ok to send pens instead of vials of the u500? TAL FORENSICS EXAMINER documented in this encounter Plan of Treatment Not on file documented as of this encounter Visit Diagnoses Not on filedocumented in this encounter Care Teams Yarrow Gatherer Relationship Specialty Start Date End Date Jann Burrows MD [address] [facility] [address] [place] [address] PCP - General Hematology 03/13/19 10/28/21 documented as of this encounter
--- OUTSIDE RECORDS SUMMARY | 2024-05-10 17:16 | XMS_ITS | Encounter Summary ---
Author Organization [facility] Address [address] [place] [address] Phone Care Team Providers Care Medical Equipment Repair Technician Name Role Phone Etelvina Del Cid MD Primary Care Provider + Encounter Details Date Type Department Care Team (Late st Contact Info) Description 04/16/2018 Telephone [facility] Cardiology [address] [facility] Advanced Medicine 8th [place] [address] [place] [address] Jef Walton MD [address] [facility] [address] [place], [place] [id number] Social History Tobacco Use Types Packs/Day Years Used Date Smoking Tobacco: Never Smokeless Tobacco: Never Alcohol Use Standard Drinks/Week Comments No 0 (1 standard drink = 0.6 oz pur e alcohol) Sex and Gender Information Value Date Recorded Sex Assigned at Not on file Legal Sex Male 5:01 AM CLOTHING WORKER Gender Identity Male 12/18/2017 12:38 PM CDT Sexual Orientation Not on file documented as of this encounter Miscellaneous Notes * Telephone Encounter - Piedad Velez RN - 04/16/2018 2:51 PM CLOTHING WORKER A user error has taken place: encounter opened in error, closed for administrative reasons. HING WORKER documented in this encounter Plan of Treatment Not on file documented as of this encounter Visit Diagnoses Not on filedocumented in this encounter Care Teams Medical Equipment Repair Technician Relationship Specialty Start Date End Date Etelvina Del Cid MD [address] [place] [address] [place] [address] PCP - General 08/14/16 03/10/19 documented as of this encounter
--- OUTSIDE RECORDS SUMMARY | 2024-05-10 17:16 | XMS_ITS | Encounter Summary ---
Author Organization [facility] Address [address] [place] [address] Phone Care Team Providers Care Professor Of Astronomy Name Role Phone Etelvina Del Cid MD Primary Care Provider + Encounter Details Date Type Department Care Team (Late st Contact Info) Description 04/22/2018 Telephone [facility] Cardiology [address] [facility] Advanced Medicine 8th [place] [address] [place] [address] Jef Walton MD [address] [facility] [address] [place], [place] [id number] Social History Tobacco Use Types Packs/Day Years Used Date Smoking Tobacco: Never Smokeless Tobacco: Never Alcohol Use Standard Drinks/Week Comments No 0 (1 standard drink = 0.6 oz pur e alcohol) Sex and Gender Information Value Date Recorded Sex Assigned at Not on file Legal Sex Male 5:01 AM A R COLLECTIONS REP Gender Identity Male 12/18/2017 12:38 PM CDT Sexual Orientation Not on file documented as of this encounter Miscellaneous Notes * Telephone Encounter - Shannen Turner - 04/22/2018 1:41 PM A R COLLECTIONS REP Aurelioay A R COLLECTIONS REP * Telephone Encounter - Piedad Velez RN - 04/22/2018 12:28 PM A R COLLECTIONS REP I placed an order for Cardiac MR and spoke to centralized scheduling. Pt scheduled for 05/01 at 9am. No need to schedule or call pt!! Thanks. A R COLLECTIONS REP documented in this encounter Plan of Treatment Not on file documented as of this encounter Visit Diagnoses Not on filedocumented in this encounter Care Teams Professor Of Astronomy Relationship Specialty Start Date End Date Etelvina Del Cid MD [address] [place] [address] PCP - General 08/14/16 03/10/19 documented as of this encounter
--- OUTSIDE RECORDS SUMMARY | 2024-05-10 17:16 | XMS_ITS | Encounter Summary ---
Author Organization [facility] Healthcare Address [address] [place] [address] Care Team Providers Care Wire Steward Name Role Phone Jann Burrows MD Primary Care Provider Reason for Visit * Reason Onset Date Comments Follow-up 05/28/2019 Encounter Details Date Type Department Care Team (Late st Contact Info) Description 05/28/2019 Telephone [facility] Primary Care Medicine Clinic [address] [facility] [address] [place], [place] [id number] Jann Burrows MD [address] [facility] [address] [place], [place] [id number] Follow-up Social History Tobacco Use Types Packs/Day Years Used Date Smoking Tobacco: Never Smokeless Tobacco: Never Alcohol Use Standard Drinks/Week Comments Yes 24 (1 standard drink = 0.6 oz pu re alcohol) CAGE negative. Case per week. 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 FIELD CASER * Telephone Encounter - Markus Elaine - 05/28/2019 3:[address] Zavala, Pharmacy is calling to clarify if insulin regular U-500 (HumuLIN R U-500, Conc, Kwikpen) 500 unit/mL (3 mL) CONCENTRATED injection is a 30 day supply or 90 day supply . Pharmacy on file. Markus Campoverde [phone] FIELD CASER documented in this encounter Plan of Treatment Not on file documented as of this encounter Visit Diagnoses Not on filedocumented in this encounter Care Teams Wire Steward Relationship Specialty Start Date End Date Jann Burrows MD [address] [facility] [address] [place] [address] PCP - General Hematology 03/13/19 10/28/21 documented as of this encounter
--- OUTSIDE RECORDS SUMMARY | 2024-05-10 17:16 | XMS_ITS | Encounter Summary ---
Author Organization [facility] Address [address] [place] [address] Phone Care Team Providers Care President Sales And Marketing Name Role Phone Jann Burrows MD Primary Care Provider [phone] Encounter Details Date Type Department Care Team (Late st Contact Info) Description 03/24/2019 Orders Only [facility] Endocrinology Metabolism and Lipid [address] [facility] Advanced Medicine 5th [place] [address] [place] [address] Peter Styles Jr., MD [address] [place], [place] [phone] Metabolic syndrome Social History Tobacco Use Types Packs/Day Years Used Date Smoking Tobacco: Never Smokeless Tobacco: Never Alcohol Use Standard Drinks/Week Comments Yes 24 (1 standard drink = 0.6 oz pu re alcohol) CAGE negative. Case per week. 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 Not on file Not on file documented as of this encounter Ordered Prescriptions Prescription Sig Dispense Quantity Refills Last Filled Start Date End Date pen needle, diabetic (BD ULTRA-FINE RADHA PEN NEEDLE) 32 gauge x 5/32 needleIndications: Metabolic syndrome Use to inject insulin BG three times a day as instructed 450 each 3 03/24/2019 1 insulin regular U-500 (HumuLIN R U-500, Conc, Kwikpen) 500 unit/mL (3 mL) CONCENTRATED injection Inject 80 units three times daily with meals 40 mL 3 03/24/2019 9 documented in this encounter Plan of Treatment Not on file documented as of this encounter Visit Diagnoses Diagnosis Metabolic syndrome Dysmetabolic Syndrome X documented in this encounter Discontinued Medications Medication Sig Discontinue Reason Start Date End Da te insulin regular U-500 (HumuLIN R U-500) 500 unit/mL CONCENTRATED injectionIndications:Di abetes Mellitus with Severe Insulin Resistance Inject 80 units three times daily with meals Duplicate order 03/20/2019 03/24/2019 pen needle, diabetic (BD ULTRA-FINE RADHA PEN NEEDLE) 32 gauge x /32 needleIndications:Metab olic syndrome Use to test BG three times a day as instructed Reorder 03/19/2019 03/24/2019 documented as of this encounter Care Teams President Sales And Marketing Relationship Specialty Start Date End Date Jann Burrows MD [address] [facility] [address] [place] [address] PCP - General Hematology 03/13/19 10/28/21 documented as of this encounter
--- OUTSIDE RECORDS SUMMARY | 2024-05-10 17:16 | XMS_ITS | Encounter Summary ---
Author Organization [facility] Address [address] [place] [address] Phone Care Team Providers Care Utility Operator Name Role Phone Etelvina Del Cid MD Primary Care Provider + Encounter Details Date Type Department Care Team (Late st Contact Info) Description 01/27/2019 Telephone [facility] Cardiology [address] [facility] Advanced Medicine 8th [place] [address] [place] [address] Jef Walton MD [address] [facility] [address] [place], [place] [phone] Social History Tobacco Use Types Packs/Day Years Used Date Smoking Tobacco: Never Smokeless Tobacco: Never Alcohol Use Standard Drinks/Week Comments No 0 (1 standard drink = 0.6 oz pur e alcohol) Sex and Gender Information Value Date Recorded Sex Assigned at Not on file Legal Sex Male 5:01 AM TRUST CLERK Gender Identity Male 12/18/2017 12:38 PM CDT Sexual Orientation Not on file documented as of this encounter Ordered Prescriptions Prescription Sig Dispense Quantity Refills Last Filled Start Date End Date carvedilol (COREG) 25 mg tablet Take 1 tablet (25 mg total) by mouth 2 (two) times a day with meals 60 tablet 11 01/27/2019 02/10/2020 documented in this encounter Miscellaneous Notes * Telephone Encounter - Kasia Nolasco RN - 01/27/2019 4:45 PM CDT 01/27- RX sent to pharmacy * Telephone Encounter - Bessy Hays - 01/27/2019 3:55 PM CDT KIRIT CARVEDILOL 25 MG 1 BID #60 SCHNUCKS documented in this encounter Plan of Treatment Not on file documented as of this encounter Visit Diagnoses Not on filedocumented in this encounter Discontinued Medications Medication Sig Discontinue Reason Start Date End Da te carvedilol (COREG) 25 mg tablet Take 1 tablet (25 mg total) by mouth 2 (two) times a day with meals Reorder 07/23/2018 01/27/2019 documented as of this encounter Care Teams Utility Operator Relationship Specialty Start Date End Date Etelvina Del Cid MD [address] [place] [address] [place] [address] PCP - General 08/14/16 03/10/19 documented as of this encounter
--- OUTSIDE RECORDS SUMMARY | 2024-05-10 17:16 | XMS_ITS | Encounter Summary ---
Author Organization [facility] Address [address] [place] [address] Phone Care Team Providers Care Property Management Accountant Name Role Phone Etelvina Del Cid MD Primary Care Provider + Encounter Details Date Type Department Care Team (Late st Contact Info) Description 02/23/2019 Telephone [facility] Cardiology [address] [facility] Advanced Medicine 8th [place] [address] [place] [address] Jef Walton MD [address] [facility] [address] [place], [place] [phone] Social History Tobacco Use Types Packs/Day Years Used Date Smoking Tobacco: Never Smokeless Tobacco: Never Alcohol Use Standard Drinks/Week Comments No 0 (1 standard drink = 0.6 oz pur e alcohol) Sex and Gender Information Value Date Recorded Sex Assigned at Not on file Legal Sex Male 5:01 AM BOX LINER Gender Identity Male 12/18/2017 12:38 PM CDT Sexual Orientation Not on file documented as of this encounter Miscellaneous Notes * Telephone Encounter - Kasia Nolasco RN - 02/23/2019 3:55 PM CDT 02/23- Pt wants to make sure we will approve for sleep study test- he does not have a PCP right now- Dr. Walton referred him 07/2018, informed pt to have them send us whatever needs to be done * Telephone Encounter - Noah Hutson - 02/23/2019 2:48 PM CDT Isabelle Patient has question about sleep study. documented in this encounter Plan of Treatment Not on file documented as of this encounter Visit Diagnoses Not on filedocumented in this encounter Care Teams Property Management Accountant Relationship Specialty Start Date End Date Etelvina Del Cid MD [address] [place] [address] PCP - General 08/14/16 03/10/19 documented as of this encounter
--- OUTSIDE RECORDS SUMMARY | 2024-05-10 17:16 | XMS_ITS | Encounter Summary ---
Author Organization [facility] Healthcare Address [address] [place] [address] Care Team Providers Care Electric Blanket Wirer Name Role Phone Jann Burrows MD Primary Care Provider [phone] Encounter Details Date Type Department Care Team (Late st Contact Info) Description 03/13/2019 12:25 PM NUT CULLER Lab [facility] Outpatient Health [address] [place] [address] [place] [address] Metabolic syndrome Social History Tobacco Use Types Packs/Day Years Used Date Smoking Tobacco: Never Smokeless Tobacco: Never Alcohol Use Standard Drinks/Week Comments Yes 24 (1 standard drink = 0.6 oz pu re alcohol) CAGE negative. Case per week. 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 Potassium, pl 4.3 3.3 - 4.9 mmol/L [facility] Comment:Hemolyzed; (++); pot assium value may be falsely elevated by as much as 0.3 - 0.5 mmol/L. Suggest redraw and reanalysis. Chloride 107 97 - 110 mmol/L [facility] CO2 25 22 - 32 mmol/L [facility] Anion gap 10 2 - 15 mmol/L [facility] BUN 14 8 - 25 mg/dL [facility] Creatinine 0.87 0.80 - 1.30 mg/dL [facility] Glucose 90 70 - 199 mg/dL [facility] Comment: Interpretive Data Fasting glucose >/= 126 [...] 2017. Calcium 9.4 8.5 - 10.3 mg/dL [facility] Blood specimen (specimen) 03/13/2019 12:30 PM NUT CULLER 03/13/2019 1:46 PM NUT CULLER us Nikita Buchanan MD LAB BLOOD ORDERABLES Final Resul t [facility] Department [place] [address] documented in this encounter Visit Diagnoses Diagnosis Metabolic syndrome Dysmetabolic Syndrome X documented in this encounter Care Teams Electric Blanket Wirer Relationship Specialty Start Date End Date Jann Burrows MD [address] [facility] [address] [place] [address] PCP - General Hematology 03/13/19 10/28/21 documented as of this encounter
--- OUTSIDE RECORDS SUMMARY | 2024-05-10 17:16 | XMS_ITS | Encounter Summary ---
Author Organization [facility] Address [address] [place] [address] Phone Care Team Providers Care Squirrel Worker Name Role Phone Etelvina Del Cid MD Primary Care Provider + Encounter Details Date Type Department Care Team (Late st Contact Info) Description 04/22/2018 Telephone [facility] Cardiology [address] [facility] Advanced Medicine 8th [place] [address] [place] [address] Jef Walton MD [address] [facility] [address] [place], [place] [id number] Social History Tobacco Use Types Packs/Day Years Used Date Smoking Tobacco: Never Smokeless Tobacco: Never Alcohol Use Standard Drinks/Week Comments No 0 (1 standard drink = 0.6 oz pur e alcohol) Sex and Gender Information Value Date Recorded Sex Assigned at Not on file Legal Sex Male 5:01 AM VIDEO GAMES STORYWRITER Gender Identity Male 12/18/2017 12:38 PM CDT Sexual Orientation Not on file documented as of this encounter Miscellaneous Notes * Telephone Encounter - Piedad Velez RN - 04/22/2018 12:24 PM VIDEO GAMES STORYWRITER Pt called and states he can do MR on 05/01 at 9am. Spoke to Nataliia in scheduling and informed her of MR scheduled for 05/01 at 9am, scanner 5. Order placed in EPIC. She states pt needs to be at MRI by 8:15am. Pt informed and verbalizes understanding. O GAMES STORYWRITER * Telephone Encounter - iPedad Velez RN - 04/22/2018 10:48 AM VIDEO GAMES STORYWRITER Per Dr. Walton - schedule pt for CMR. Spoke to Justin, nurses supervisor in MRI, and he states CMR can be done on 05/01 at 9am, [facility], 3rd floor, scanner 5. He asks that once I confirm date/time with patient, to call scheduling at [phone] and let them know date/time and test to be done in scanner 5. LMOR for pt to CB. O GAMES STORYWRITER documented in this encounter Plan of Treatment Not on file documented as of this encounter Visit Diagnoses Not on filedocumented in this encounter Care Teams Squirrel Worker Relationship Specialty Start Date End Date Etelvina Del Cid MD [address] [place] [address] [place] [address] PCP - General 08/14/16 03/10/19 documented as of this encounter
--- OUTSIDE RECORDS SUMMARY | 2024-05-10 17:16 | XMS_ITS | Encounter Summary ---
Author Organization [facility] Address [address] [place] [address] Phone Care Team Providers Care Card Clothier Name Role Phone Etelvina Del Cid MD Primary Care Provider + No, Physician Primary Care Provider [phone] Jann Burrows MD Primary Care Provider [phone] Encounter Details Date Type Department Care Team (Late st Contact Info) Description 03/02/2019 Telephone [facility] Cardiology [address] [facility] Advanced Medicine 8th [place] [address] [place] [address] Jef Walton MD [address] [facility] [address] [place], [place] [id number] Social History Tobacco Use Types Packs/Day Years Used Date Smoking Tobacco: Never Smokeless Tobacco: Never Alcohol Use Standard Drinks/Week Comments No 0 (1 standard drink = 0.6 oz pur e alcohol) Sex and Gender Information Value Date Recorded Sex Assigned at Not on file Legal Sex Male 5: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 Walton aware pt was admitted to ICU for DKA * Telephone Encounter - Kasia Nolasco RN - 03/02/2019 3:14 PM CDT 03/02- Spoke to pt, he is at work and will see if someone can cover for him- I instructed him it would be better to be seen sooner rather than later. He is agreeable- I will f/u to see where pt goes and what results come back * Telephone Encounter - Nichole Trevino - 03/02/2019 3:04 PM CDT [facility] PT RETURNING CALL. PLS CALL PT. * Telephone Encounter - Kasia Nolasco RN - 03/02/2019 3:01 PM CDT 03/02- LMOR to CB, informed pt Dr. Walton's comments below and to please CB so I know he received mymessage * Telephone Encounter - Jef Walton MD - 03/02/2019 2:58 PM CDT Given constellation of symptoms: chest pain, with pleuritic component, SOB, vision changes, polyuria and polydipsia, I recommend he go to an urgent care or the ED for evaluation. * Telephone Encounter - Kasia Nolasco RN - 03/02/2019 2:35 PM CDT 03/02- Pt says he has been having chest pains lately, today it has been worse. Feels over entire front of chest- goes to neck and arms- hurts arms when moving them. Says CP for 1-1 1/2 weeks. Happenswhen he is active or when he is sitting. Feels SOB- if takes a big deep breath in it hurts. No LH/ dizziness, no LE edema. Pt says he has been having vision problems- blurred vision, happens on and off- sometimes lasts a long time/ hours, other times it comes and goes quickly. Pt states he does have anxiety but not feeling overwhelmed at this time, lost his job last week but already got a new one- so is not feeling stressed about anything right now. Pt says has had a dry mouth a lot lately- drinking about 1 gallon- 2 gallons/day and is using the bathroom frequently( every 30 minutes)- pt has not checked BG lately I asked him to check- he is at work and will check when he gets home. Last BP 140/90- 2 weeks ago. Not checking at home. Takes medications and has not missed any doses Carvedilol 25 mg BID Indapamide 2.5 mg daily * Telephone Encounter - Shannen Turner - 03/02/2019 2:27 PM CDT Returning call * Telephone Encounter - Kasia Nolasco RN - 03/02/2019 1:59 PM CDT 03/02- LMOR to CB * Telephone Encounter - Shannen Turner - 03/02/2019 1:34 PM CDT Kirit Has been having chest pain a lot more. Last time was 10 minutes documented in this encounter Plan of Treatment Not on file documented as of this encounter Visit Diagnoses Not on filedocumented in this encounter Care Teams Card Clothier Relationship Specialty Start Date End Date Etelvina Del Cid MD [address] [place] [address] [address] PCP - General 08/14/16 03/10/19 No, Physician PCP - General 03/11/19 03/12/19 Jann Burrows MD [address] [place] [address] PCP - General Hematology 03/13/19 10/28/21 documented as of this encounter
--- OUTSIDE RECORDS SUMMARY | 2024-05-10 17:16 | XMS_ITS | Encounter Summary ---
Author Organization [facility] Healthcare Address [address] [place] [address] Care Team Providers Care Jet Piercer Operator Name Role Phone Etelvina Del Cid MD Primary Care Provider + Encounter Details Date Type Department Care Team (Latest Contact Info) Description 06/16/2017 8:58 PM SLAB INSTALLER - 06/17/2017 3:26 AM SLAB INSTALLER Hospital Encounter [facility] Emergency Department [address] [place] [address] Edilberto Noonan MD [address] [facility] [address] [place], [place] [id number] Discharge Disposition: Discharge to home or self care Social History Tobacco Use Types Packs/Day Years Used Date Smoking Tobacco: Never Assessed Sex and Gender Information Value Date Recorded Sex Assigned at Not on file Legal Sex Male 5:01 AM SLAB INSTALLER Gender Identity Male 12/18/2017 12:38 PM CDT Sexual Orientation Not on file documented as of this encounter Discharge Disposition Disposition Code Departure Means Destination Discharge to home or self care documented in this encounter Plan of Treatment Not on file documented as of this encounter Procedures Procedure Name Priority Date/Time Associated Diagnosis Comments XR CHEST PA LATERAL 2 VIEWS Routine 06/17/2017 6:18 AM SLAB INSTALLER DIFFERENTIAL AUTO STAT 06/17/2017 12: 41 AM SLAB INSTALLER CBC WITH AUTO DIFFERENTIAL STAT 06/17/2017 12:41 AM SLAB INSTALLER TROPONIN I STAT 06/17/2017 12:41 AM SLAB INSTALLER BASIC METABOLIC PANEL STAT 06/17/2017 12:41 AM SLAB INSTALLER DISCHARGE LABORATORY CUMULATIVE REPORT 06/17/2017 12:00 AM SLAB INSTALLER documented in this encounter Results * XR Chest Pa Lateral 2 Views (06/17/2017 6:18 AM SLAB INSTALLER) Anatomical Region Laterality Modality Body, Chest N/A Radiographic Lizzie ging 06/17/2017 6:18 AM SLAB INSTALLER Narrative 06/17/2017 4:51 PM SLAB INSTALLER Roma KITCHEN M.D. FINAL REPORT The radiology attending physician has personally reviewed this study, and has reviewed and/or edited this written report and agrees with it. ACC# ??Date Time ??Exam [id number] Jun 17, 2017 00:18:00 [id number] Chest 2 vws Stnd PA/Lat EXAMINATION: ??2 view chest radiograph IMPRESSION: ??Comparison to 02/14/2010. Small lung volumes bilaterally. ??Lungs are otherwise clear without focal pneumonic consolidation or pulmonary edema. ??No pleural effusion or pneumothorax. Heart size and mediastinal contours are unchanged. Electronically signed by: Farhat Jenkins M.D. Requested By: HEIDI TOPETE Dictated By: ?? LORENA AZAR M.D. ??on Jun 17 2017 12:42A This document has been electronically signed by: FARHAT JENKINS M.D. on Jun 17 2017 10:49A [id number] KITCHEN M.D. FINAL REPORT The radiology attending physician has personally reviewed this study, and has reviewed and/or edited this written report and agrees with it. Attending: ??SARAN, ??EDILBERTO Requesting: ??LOYD, ??HEIDI Requesting Fax: ?? Attending Fax: ?? Attending ID: ??[id number] Requesting ID: ??[id number] Report To 1 ID: ??[id number] ? Report To 1 Name: ??, ?? Report To 1 FAX: ?? NextGen Order #: ?? Procedure Note Miscellaneous, Not In File - 06/17/2017 Roma KITCHEN M.D. FINAL REPORT The radiology attending physician has personally reviewed this study, and has reviewed and/or edited this written report and agrees with it. ACC# Date Time Exam [id number] Jun 17, 2017 00:18:00 [id number] Chest [address] PA/Lat EXAMINATION: 2 view chest radiograph IMPRESSION: Comparison to 02/14/2010. Small lung volumes bilaterally. Lungs are otherwise clear without focal pneumonic consolidation or pulmonary edema. No pleural effusion or pneumothorax. Heart size and mediastinal contours are unchanged. Electronically signed by: Farhat Jenkins M.D. Requested By: HEIDI TOPETE Dictated By: LORENA AZAR M.D. on Jun 17 2017 12:42A This document has been electronically signed by: FARHAT JENKINS M.D. on Jun 17 2017 10:49A [id number] KITCHEN M.D. FINAL REPORT The radiology attending physician has personally reviewed this study, and has reviewed and/or edited this written report and agrees with it. Attending: EDILBERTO NOONAN Requesting: HEIDI TOPETE Requesting Fax: Attending Fax: Attending ID: [id number] Requesting ID: [id number] Report To 1 ID: [id number] Report To 1 Name: , Report To 1 FAX: NextGen Order #: us Heidi Topete SEAMLESS TUBE ROLLER IMG XR PROCEDURES Final Res ult * Troponin I (06/17/2017 12:41 AM SLAB INSTALLER) Troponin I <0.03 0.00 - 0.03 ng/mL [facility] Comment: Interpretive Data Serial determinations are recommended for the diagnosis of myocardial infarction (Third [place] Definition of Myocardial Infarction. ??J Am Butch Cardiol 2012;60:1581-98). Current interpretive data was last revised on 13. Blood specimen (specimen) 06/17/2017 12:41 AM SLAB INSTALLER 06/17/2017 12:49 AM SLAB INSTALLER Narrative [facility] - 06/17/2017 1:20 AM SLAB INSTALLER us Magno Nuñez MD LAB BLOOD ORDERABLES Final Res ult [facility] Department [place] [address] * Basic metabolic panel (06/17/2017 12:41 AM SLAB INSTALLER) Sodium 142 135 - 145 mmol/L [facility] Potassium, pl 4.0 3.3 - 4.9 mmol/L [facility] Chloride 107 97 - 110 mmol/L [facility] CO2 26 22 - 32 mmol/L [facility] BUN 15 8 - 25 mg/dL [facility] Glucose 88 70 - 199 mg/dL [facility] Comment: Interpretive Data Fasting glucose >/= [...] Current interpretive data was last revised 2017. Creatinine 0.96 0.80 - 1.30 mg/dL [facility] Calcium 9.8 8.5 - 10.3 mg/dL [facility] Anion gap 9 2 - 15 mmol/L [facility] Blood specimen (specimen) 06/17/2017 12:41 AM SLAB INSTALLER 06/17/2017 12:49 AM SLAB INSTALLER Narrative [facility] - 06/17/2017 1:14 AM SLAB INSTALLER Magno Nuñez MD LAB BLOOD ORDERABLES Final Res ult Performing Organization Address [facility] Co de Phone Number [facility] [place] [address] * Differential, auto (06/17/2017 12:41 AM SLAB INSTALLER) Neutrophil pct 54.1 % [facility] Imm gran pct 0.1 % [facility] Lymphocyte pct 33.7 % [facility] Monocyte pct 8.6 % [facility] Eosinophil pct 3.0 % [facility] Basophil pct 0.5 % [facility] Neutrophil abs 4.02 1.70 - 6.50 K/cumm [facility] Imm gran abs 0.01 0.00 - 0.10 K/cumm [facility] Lymphocyte abs 2.51 0.80 - 3.30 K/cumm [facility] Monocyte abs 0.64 0.20 - 0.80 K/cumm [facility] Eosinophil abs 0.22 0.00 - 0.50 K/cumm [facility] Basophil abs 0.04 0.00 - 0.10 K/cumm [facility] Blood specimen (specimen) 06/17/2017 12:41 AM SLAB INSTALLER 06/17/2017 12:[address] [facility] - 06/17/2017 12:56 AM SLAB INSTALLER Magno Nuñez MD LAB BLOOD ORDERABLES Final Res ult Performing Organization Address [facility] Co de Phone Number [facility] Department [place] [address] * CBC with auto differential (06/17/2017 12:41 AM SLAB INSTALLER) WBC 7.4 3.8 - 9.9 K/cumm [facility] RBC 5.49 4.30 - 5.80 M/cumm [facility] Hgb 16.0 13.0 - 17.5 g/dL [facility] Hct 45.6 38.9 - 50.3 % [facility] MCV 83.1 81.3 - 96.4 fL [facility] MCH 29.1 27.1 - 33.3 pg [facility] MCHC 35.1 32.3 - 35.7 g/dL [facility] RDW CV 12.4 11.1 - 14.9 % [facility] RDW SD 37.7 35.7 - 48.1 fL [facility] Plt 294 150 - 400 K/cumm [facility] MPV 9.7 9.1 - 12.3 fL [facility] NRBC abs 0.00 0.00 - 0.01 K/cumm [facility] Blood specimen (specimen) 06/17/2017 12:41 AM SLAB INSTALLER 06/17/2017 12:49 AM SLAB INSTALLER Narrative [facility] - 06/17/2017 12:56 AM SLAB INSTALLER us Magno Nuñez MD LAB BLOOD ORDERABLES Final Res ult [facility] Department [place] [address] * DISCHARGE LABORATORY CUMULATIVE REPORT (06/17/2017 12:00 AM SLAB INSTALLER) Narrative 06/17/2017 12:00 AM SLAB INSTALLER Ordered by an unspecified provider. Historical Provider LAB BLOOD ORDERABLES Melina l Result documented in this encounter Visit Diagnoses Not on filedocumented in this encounter Care Teams Jet Piercer Operator Relationship Specialty Start Date End Date Etelvina Del Cid MD [address] [place] [address] [place] [address] PCP - General 08/14/16 03/10/19 documented as of this encounter
--- OUTSIDE RECORDS SUMMARY | 2024-05-10 17:16 | XMS_ITS | Encounter Summary ---
Author Organization [facility] Address [address] [place] [address] Phone Care Team Providers Care Registered Dental Hygienist Name Role Phone Etelvina Del Cid MD Primary Care Provider + Encounter Details Date Type Department Care Team (Late st Contact Info) Description 07/31/2018 Telephone [facility] Sleep [address] [place] [address] 6th [address] [place] [address] Mey Starks Social History Tobacco Use Types Packs/Day Years Used Date Smoking Tobacco: Never Smokeless Tobacco: Never Alcohol Use Standard Drinks/Week Comments No 0 (1 standard drink = 0.6 oz pur e alcohol) Sex and Gender Information Value Date Recorded Sex Assigned at Not on file 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 Referral in que.. documented in this encounter Plan of Treatment Not on file documented as of this encounter Visit Diagnoses Not on filedocumented in this encounter Care Teams Registered Dental Hygienist Relationship Specialty Start Date End Date Etelvina Del Cid MD [address] [place] [address] PCP - General 08/14/16 03/10/19 documented as of this encounter
--- OUTSIDE RECORDS SUMMARY | 2024-05-10 17:16 | XMS_ITS | Encounter Summary ---
Author Organization [facility] Facility Care Team Providers Care Mechanical Commissioning Engineer Name Role Phone Etelvina Del Cid MD Primary Care Provider + Encounter Details Date Type Department Care Team (Latest Contact Info) Description 03/02/2019 Travel Social History Tobacco Use Types Packs/Day Years Used Date Smoking Tobacco: Never Smokeless Tobacco: Never Alcohol Use Standard Drinks/Week Comments No 0 (1 standard drink = 0.6 oz pur e alcohol) Sex and Gender Information Value Date Recorded Sex Assigned at Not on file Legal Sex Male 5:01 AM NUCLEAR MEDICAL TECHNOLOGIST Gender Identity Male 12/18/2017 12:38 PM CDT Sexual Orientation Not on file documented as of this encounter Plan of Treatment Not on file documented as of this encounter Visit Diagnoses Not on filedocumented in this encounter Care Teams Mechanical Commissioning Engineer Relationship Specialty Start Date End Date Etelvina Del Cid MD [address] [facility] [address] [place] [address] PCP - General 08/14/16 03/10/19 documented as of this encounter
--- OUTSIDE RECORDS SUMMARY | 2024-05-10 17:16 | XMS_ITS | Encounter Summary ---
Author Organization [facility] Care Team Providers Care Data Collection Interviewer Name Role Phone Unavailable Primary Care Provider Unavailabl e Encounter Details Date Type Department Care Team (Late st Contact Info) Description 03/07/2010 4:44 PM CDT - 03/07/2010 11:59 PM CDT Hospital Encounter [facility] Etelvina Del Cid MD [address] [place] [id number] Headache; Other diseases of nasal cavity and sinuses Social History Tobacco Use Types Packs/Day Years Used Date Smoking Tobacco: Never Assessed Sex and Gender Information Value Date Recorded Sex Assigned at Not on file Legal Sex Male 5:01 AM ANIMAL CONTROL SPECIALIST Gender Identity Male 12/18/2017 12:38 PM CDT Sexual Orientation Not on file documented as of this encounter Plan of Treatment Not on file documented as of this encounter Visit Diagnoses Diagnosis Headache Other diseases of nasal cavity and sinuses documented in this encounter
--- OUTSIDE RECORDS SUMMARY | 2024-05-10 17:16 | XMS_ITS | Encounter Summary ---
Author Organization [facility] Healthcare Address [address] [place] [address] Care Team Providers Care Auto Mechanic Supervisor Name Role Phone Etelvina Del Cid MD Primary Care Provider + Encounter Details Date Type Department Care Team (Latest Contact Info) Description 07/10/2017 10:39 AM FINANCIAL COUNSELOR - 07/10/2017 11:59 PM FINANCIAL COUNSELOR Hospital Encounter [facility] [phone] Jef Walton MD [address] [address] Discharge Disposition: Discharge to home or self care Social History Tobacco Use Types Packs/Day Years Used Date Smoking Tobacco: Never Sex and Gender Information Value Date Recorded Sex Assigned at Not on file Legal Sex Male 5:01 AM FINANCIAL COUNSELOR Gender Identity Male 12/18/2017 12:38 PM CDT Sexual Orientation Not on file documented as of this encounter Medications at Time of Discharge carvedilol (COREG) 12.5 mg tablet 2 times daily. 07/10/2017 10/09/2017 documented as of this encounter Discharge Disposition Disposition Code Departure Means Destination Discharge to home or self care documented in this encounter Plan of Treatment Not on file documented as of this encounter Procedures Procedure Name Priority Date/Time Associated Diagnosis Comments HEMOGLOBIN A1C Routine Gen Lab 07/10/2017 10:50 AM FINANCIAL COUNSELOR LIPID PANEL Routine Gen Lab 07/10/2017 10:50 AM FINANCIAL COUNSELOR COMPREHENSIVE METABOLIC PANEL Routine Gen Lab 07/10/2017 10:50 AM FINANCIAL COUNSELOR DISCHARGE LABORATORY CUMULATIVE REPORT 07/10/2017 12:00 AM FINANCIAL COUNSELOR documented in this encounter Results * (ABNORMAL) Lipid panel (07/10/2017 10:50 AM FINANCIAL COUNSELOR) Cholesterol 157 30 - 200 mg/dL [facility] Comment: Interpretive Data Desirable: ?<200 mg/dL Borderline high: ??200-239 mg/dL High: ? > or = 240 mg/dL Literature Reference: National Cholesterol Education Program (NCEP) Expert Panel on Detection, Evaluation, and Treatment of High Blood Cholesterol in Adults (Adult Treatment Panel III). ??Circulation 2004; 110:227. Current interpretive data was last revised on 2015. Triglycerides 309(H) 0 - 150 mg/dL [facility] Comment: Interpretive Data Desirable: ? < 150 mg/dL Borderline High: ? 150 - 199 mg/dL High: ?200 - 499 mg/dL Very High: ? > or = 499 mg/dL Literature Reference: See Cholesterol Current interpretive data was last revised on 2015. HDL 26(L) >=40 mg/dL [facility] Comment: Interpretive Data Less than 40 mg/dL - low; A major risk factor for heart disease. Greater than or equal to 60 mg/dL - High; ??considered protective of heart disease. Literature Reference: See Cholesterol Current interpretive data was last revised on 2015. LDL, calculated 69 10 - 129 mg/dL [facility] Comment: Interpretive Data Optimal: ? < 100 mg/dL Near Optimal: ?100 - 129 mg/dL Borderline High: ?? 130 - 159 mg/dL High: ?160 - 189 mg/dL Very high: ? > or = 190 mg/dL Literature Reference: See Cholesterol Current interpretive data was last revised on 2015. Non-HDL Cholesterol 131 mg/dL [facility] Comment: Interpretive Data When triglycerides are >200 mg/dL, non-HDL C is a secondary target of therapy, with a goal 30 mg/dL higher than the identified LDL-C goal. Reference: ??See Cholesterol Reference. Current interpretive data was last revised 2015. Blood specimen (specimen) 07/10/2017 10:50 AM FINANCIAL COUNSELOR 07/10/2017 11:11 AM FINANCIAL COUNSELOR Narrative [facility] - 07/10/2017 11:53 AM FINANCIAL COUNSELOR us Jef Watlon MD LAB BLOOD ORDERABLES Final Re sult [facility] Department [place] [address] * (ABNORMAL) Comprehensive metabolic panel (07/10/2017 10:50 AM FINANCIAL COUNSELOR) Sodium 142 135 - 145 mmol/L [facility] Potassium, pl 4.5 3.3 - 4.9 mmol/L [facility] Comment:Hemolyzed; (+++); po tassium value may be falsely elevated by as much as 0.6 - 1.0 mmol/L. Suggest redraw and reanalysis. CO2 28 22 - 32 mmol/L [facility] BUN 17 8 - 25 mg/dL [facility] Glucose 107 70 - 199 mg/dL [facility] Comment: Interpretive Data Fasting glucose [...] interpretive data was last revised 2017. Creatinine 0.95 0.80 - 1.30 mg/dL [facility] Calcium 9.8 8.5 - 10.3 mg/dL [facility] Chloride 104 97 - 110 mmol/L [facility] Albumin 4.5 3.5 - 5.0 g/dL [facility] AST 59(H) 10 - 50 Units/L [facility] Comment:Hemolyzed; result ma y be falsely elevated. ALT 89(H) 7 - 55 Units/L [facility] Alk phos 88 70 - 260 Units/L [facility] Bilirubin, total 0.3 0.1 - 1.2 mg/dL [facility] Protein, pl 7.7 6.5 - 8.5 g/dL [facility] Anion gap 10 2 - 15 mmol/L [facility] Blood specimen (specimen) 07/10/2017 10:50 AM FINANCIAL COUNSELOR 07/10/2017 11:11 AM FINANCIAL COUNSELOR Narrative [facility] - 07/10/2017 11:53 AM FINANCIAL COUNSELOR us Jef Walton MD LAB BLOOD ORDERABLES Final Re sult [facility] [place] [address] * Hemoglobin A1c (07/10/2017 10:50 AM FINANCIAL COUNSELOR) Hgb A1C 5.2 4.0 - 5.6 % [facility] Estimated Average Glucose 103 mg/dL [facility] Comment: The ADA recommends reporting an estimated Average Glucose (eAG) with all Hemoglobin A1c results using the equation derived from a study of 507 normal and diabetic adults. ??Minority populations were underrepresented and children were not included. ?? (Diabetes Care 31:1040-8599, 2008). ??The eAG is not equivalent to a fasting glucose. Blood specimen (specimen) 07/10/2017 10:50 AM FINANCIAL COUNSELOR 07/10/2017 11:11 AM FINANCIAL COUNSELOR Narrative [facility] - 07/10/2017 11:40 AM FINANCIAL COUNSELOR us Jef Walton MD LAB BLOOD ORDERABLES Final Re sult [facility] [place] [address] * DISCHARGE LABORATORY CUMULATIVE REPORT (07/10/2017 12:00 AM FINANCIAL COUNSELOR) Narrative 07/10/2017 12:00 AM FINANCIAL COUNSELOR Ordered by an unspecified provider. us Historical Provider LAB BLOOD ORDERABLES Melina l Result documented in this encounter Visit Diagnoses Not on filedocumented in this encounter Care Teams Auto Mechanic Supervisor Relationship Specialty Start Date End Date Etelvina Del Cid MD [address] [place] [address] [place] [address] PCP - General 08/14/16 03/10/19 documented as of this encounter
--- OUTSIDE RECORDS SUMMARY | 2024-05-10 17:16 | XMS_ITS | Encounter Summary ---
Author Organization [facility] Facility Care Team Providers Care Tire Spotter Name Role Phone Unavailable Primary Care Provider Unavailabl e Encounter Details Date Type Department Care Team (Late st Contact Info) Description 12/13/2014 - 12/13/2014 11:59 PM CDT Hospital Encounter [facility] Astrid Mcclain MD 1 [facility] [address] [place] [address] Nonspecific (abnormal) findings on radiological and other examination of other intrathoracic organs; Undiagnosed cardiac murmurs Social History Tobacco Use Types Packs/Day Years Used Date Smoking Tobacco: Never Assessed Sex and Gender Information Value Date Recorded Sex Assigned at Not on file 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 Gender Identity Male 12/18/2017 12:38 PM CDT Sexual Orientation Not on file documented as of this encounter Plan of Treatment Not on file documented as of this encounter Procedures Procedure Name Priority Date/Time Associated Diagnosis Comments DISCHARGE LABORATORY CUMULATIVE REPORT 12/14/2014 MRI CARDIAC FLOW VELOCITY Routine 12/13/2014 9:43 AM CDT MRI CARDIAC M&FUNC W WO CONTRAST Routine 12/13/2014 9:41 AM CDT BLOOD CREATININE, POINT OF CARE Routine 12/13/2014 7:21 AM CDT documented in this encounter Results * DISCHARGE LABORATORY CUMULATIVE REPORT (12/14/2014) Narrative 12/14/2014 Ordered by an unspecified provider. us Historical Provider LAB BLOOD ORDERABLES Melina castorena Result * MRI Cardiac Flow Velocity (12/13/2014 9:43 AM CDT) Anatomical Region Laterality Modality Body N/A Magnetic Resonan ce 12/13/2014 9:43 AM CDT Narrative 12/13/2014 6:34 PM CDT EULALIA MARS M.D. ERIBERTO FOSS M.D. FINAL REPORT The radiology attending physician has personally reviewed this study, and has reviewed and/or edited this written report and agrees with it. ACC# ??Date Time ??Exam [id number] Dec 13, 2014 09:41:00 [id number] MR Cardiac M&Func wwo cont [id number] Dec 13, 2014 09:43:00 [id number] MR Cardiac Flow Velocity ACC# ??Date Time ??Exam [id number] Dec 13, 2014 09:41:00 [id number] MR Cardiac M&Func wwo cont [id number] Dec 13, 2014 09:43:00 [id number] MR Cardiac Flow Velocity EXAMINATION: ?Cardiac MRI Morphology and Function with/without Contrast, w/ Cardiac MRI Flow Quantification DATE OF STUDY: ??12/13/2014 COMPARISON: No prior imaging for comparison. TECHNIQUE: ?? Multiplanar MR imaging of the heart utilizing HASTE, TRUFISP and flow quantification imaging sequences was performed without and with the administration of 40 mL intravenous gadolinium contrast agent according to a custom monitored protocol. 3-D postprocessing was subsequently performed on a dedicated 3-D workstation. Patient's heart rate was 57 beats/min. Patient's weight is 180 kg and height was 193 cm. HISTORY: ??Cardiac murmur with echocardiogram showing asymmetric septal hypertrophy. 57 BPM, 180 kg, 193 cm FINDINGS: Anatomy: There is a four vessel, left-sided aortic arch with the left vertebral artery arising directly from the arch. Left Ventricular (LV) Size and Function: Enlarged, with focal thickening of the proximal to mid left ventricular septum (measurements below). ??No focal wall motion abnormality. LV functional parameters: LVEF, 66 %. ?? LV end diastolic volume, 299 mL. ?? LV end systolic volume, 101 mL. ?? Stroke volume, 198 mL. Cardiac output, ??11.19 L/min. Cardiac index, 3.77 L/min/meter2 ; BSA 2.96 meter2. Left ventricular myocardial thickness (end diastole): Base: Septum: 9 mm Free wall: 10 mm Mid: Septum: 16 mm Free wall: 10 mm Timpson: Septum: 10 mm Free wall: 10 mm Right Ventricular Size and Function: Normal size and function, without focal wall motion abnormality. Aortic flow quantification: Peak flow: 1.3 cm/s Peak gradient: 6.8 mmHg Avg Flow/beat: 158 mL/beat Avg Flow/min:10.0 L/min Forward Flow/beat: 158 mL/beat Backward Flow/beat: 0 mL/beat Regurgitant fraction: 0 % Delayed contrast enhancement: There is no abnormal contrast enhancement. ?? Small amount of ghosting artifact is noted within the myocardium on short axis images, which is better appreciated on the 4-chamber long axis images. Valves: ?? Mitral valve: No regurgitation or stenosis. No systolic motion of the anterior leaflet. Tricuspid valve: No regurgitation or stenosis. Pulmonic valve: No regurgitation or stenosis. Aortic valve: No regurgitation or stenosis. ?? IMPRESSION: ? There is a relatively ??focal thickening of the proximal/mid intraventricular septum (1.6 cm ), which would meet criteria for asymmetric hypertrophic cardiomyopathy (Septal thickness > 1.5 cm and Septal thickness/free wall thickness > 1.5:1), the absence of delayed contrast enhancement and absence of systolic anterior motion (ROMAN) of the anterior leaflet of the mitral valve, however suggests that this most likely represents a sigmoid septum which can be seen in hypertension. ?? Requested By: Dictated By: ?? ERIBERTO FOSS M.D. ??on Dec 13 2014 ??3:20P This document has been electronically signed by: EULALIA MARS M.D. on Dec 13 2014 ??6:33P Procedure Note Provider, MD Mia - 09/06/2016 EULALIA MARS M.D. ERIBERTO FOSS M.D. FINAL REPORT The radiology attending physician has personally reviewed this study, and has reviewed and/or edited this written report and agrees with it. ACC# Date Time Exam [id number] Dec 13, 2014 09:41:00 [id number] MR Cardiac M&Func wwo cont [id number] Dec 13, 2014 09:43:[id number] [facility]# Date Time Exam [id number] Dec 13, 2014 09:41:00 [id number] MR Cardiac M&Func wwo cont [id number] Dec 13, 2014 09:43:00 [id number] MR Cardiac Flow Velocity EXAMINATION: Cardiac MRI Morphology and Function with/without Contrast, w/ Cardiac MRI Flow Quantification DATE OF STUDY: 12/13/2014 COMPARISON: No prior imaging for comparison. TECHNIQUE: Multiplanar MR imaging of the heart utilizing HASTE, TRUFISP and flow quantification imaging sequences was performed without and with the administration of 40 mL intravenous gadolinium contrast agent according to a custom monitored protocol. 3-D postprocessing was subsequently performed on a dedicated 3-D workstation. Patient's heart rate was 57 beats/min. Patient's weight is 180 kg and height was 193 cm. HISTORY: Cardiac murmur with echocardiogram showing asymmetric septal hypertrophy. 57 BPM, 180 kg, 193 cm FINDINGS: Anatomy: There is a four vessel, left-sided aortic arch with the left vertebral artery arising directly from the arch. Left Ventricular (LV) Size and Function: Enlarged, with focal thickening of the proximal to mid left ventricular septum (measurements below). No focal wall motion abnormality. LV functional parameters: LVEF, 66 %. LV end diastolic volume, 299 mL. LV end systolic volume, 101 mL. Stroke volume, 198 mL. Cardiac output, 11.19 L/min. Cardiac index, 3.77 L/min/meter2 ; BSA 2.96 meter2. Left ventricular myocardial thickness (end diastole): Base: Septum: 9 mm Free wall: 10 mm Mid: Septum: 16 mm Free wall: 10 mm Timpson: Septum: 10 mm Free wall: 10 mm Right Ventricular Size and Function: Normal size and function, without focal wall motion abnormality. Aortic flow quantification: Peak flow: 1.3 cm/s Peak gradient: 6.8 mmHg Avg Flow/beat: 158 mL/beat Avg Flow/min:10.0 L/min Forward Flow/beat: 158 mL/beat Backward Flow/beat: 0 mL/beat Regurgitant fraction: 0 % Delayed contrast enhancement: There is no abnormal contrast enhancement. Small amount of ghosting artifact is noted within the myocardium on short axis images, which is better appreciated on the 4-chamber long axis images. Valves: Mitral valve: No regurgitation or stenosis. No systolic motion of the anterior leaflet. Tricuspid valve: No regurgitation or stenosis. Pulmonic valve: No regurgitation or stenosis. Aortic valve: No regurgitation or stenosis. IMPRESSION: There is a relatively focal thickening of the proximal/mid intraventricular septum (1.6 cm ), which would meet criteria for asymmetric hypertrophic cardiomyopathy (Septal thickness > 1.5 cm and Septal thickness/free wall thickness > 1.5:1), the absence of delayed contrast enhancement and absence of systolic anterior motion (ROMAN) of the anterior leaflet of the mitral valve, however suggests that this most likely represents a sigmoid septum which can be seen in hypertension. Requested By: Dictated By: ERIBERTO FOSS M.D. on Dec 13 2014 3:20P This document has been electronically signed by: EULALIA MARS M.D. on Dec 13 2014 6:33P us Historical Provider MD GRANT MRI PROCEDURES Final Result * MRI Cardiac M&F W WO Contrast (12/13/2014 9:41 AM CDT) Anatomical Region Laterality Modality Body N/A Magnetic Resonan ce 12/13/2014 9:41 AM CDT Narrative 12/13/2014 6:34 PM CDT EULALIA MARS M.D. ERIBERTO FOSS M.D. FINAL REPORT The radiology attending physician has personally reviewed this study, and has reviewed and/or edited this written report and agrees with it. ACC# ??Date Time ??Exam [id number] Dec 13, 2014 09:41:00 [id number] MR Cardiac M&Func wwo cont [id number] Dec 13, 2014 09:43:00 [id number] MR Cardiac Flow Velocity ACC# ??Date Time ??Exam [id number] Dec 13, 2014 09:41:00 [id number] MR Cardiac M&Func wwo cont [id number] Dec 13, 2014 09:43:00 [id number] MR Cardiac Flow Velocity EXAMINATION: ?Cardiac MRI Morphology and Function with/without Contrast, w/ Cardiac MRI Flow Quantification DATE OF STUDY: ??12/13/2014 COMPARISON: No prior imaging for comparison. TECHNIQUE: ?? Multiplanar MR imaging of the heart utilizing HASTE, TRUFISP and flow quantification imaging sequences was performed without and with the administration of 40 mL intravenous gadolinium contrast agent according to a custom monitored protocol. 3-D postprocessing was subsequently performed on a dedicated 3-D workstation. Patient's heart rate was 57 beats/min. Patient's weight is 180 kg and height was 193 cm. HISTORY: ??Cardiac murmur with echocardiogram showing asymmetric septal hypertrophy. 57 BPM, 180 kg, 193 cm FINDINGS: Anatomy: There is a four vessel, left-sided aortic arch with the left vertebral artery arising directly from the arch. Left Ventricular (LV) Size and Function: Enlarged, with focal thickening of the proximal to mid left ventricular septum (measurements below). ??No focal wall motion abnormality. LV functional parameters: LVEF, 66 %. ?? LV end diastolic volume, 299 mL. ?? LV end systolic volume, 101 mL. ?? Stroke volume, 198 mL. Cardiac output, ??11.19 L/min. Cardiac index, 3.77 L/min/meter2 ; BSA 2.96 meter2. Left ventricular myocardial thickness (end diastole): Base: Septum: 9 mm Free wall: 10 mm Mid: Septum: 16 mm Free wall: 10 mm Timpson: Septum: 10 mm Free wall: 10 mm Right Ventricular Size and Function: Normal size and function, without focal wall motion abnormality. Aortic flow quantification: Peak flow: 1.3 cm/s Peak gradient: 6.8 mmHg Avg Flow/beat: 158 mL/beat Avg Flow/min:10.0 L/min Forward Flow/beat: 158 mL/beat Backward Flow/beat: 0 mL/beat Regurgitant fraction: 0 % Delayed contrast enhancement: There is no abnormal contrast enhancement. ?? Small amount of ghosting artifact is noted within the myocardium on short axis images, which is better appreciated on the 4-chamber long axis images. Valves: ?? Mitral valve: No regurgitation or stenosis. No systolic motion of the anterior leaflet. Tricuspid valve: No regurgitation or stenosis. Pulmonic valve: No regurgitation or stenosis. Aortic valve: No regurgitation or stenosis. ?? IMPRESSION: ? There is a relatively ??focal thickening of the proximal/mid intraventricular septum (1.6 cm ), which would meet criteria for asymmetric hypertrophic cardiomyopathy (Septal thickness > 1.5 cm and Septal thickness/free wall thickness > 1.5:1), the absence of delayed contrast enhancement and absence of systolic anterior motion (ROMAN) of the anterior leaflet of the mitral valve, however suggests that this most likely represents a sigmoid septum which can be seen in hypertension. ?? Requested By: Dictated By: ?? ERIBERTO FOSS M.D. ??on Dec 13 2014 ??3:20P This document has been electronically signed by: EULALIA MARS M.D. on Dec 13 2014 ??6:33P [id number] Procedure Note Provider, MD Mia - 09/06/2016 EULALIA MARS M.D. ERIBERTO FOSS M.D. FINAL REPORT The radiology attending physician has personally reviewed this study, and has reviewed and/or edited this written report and agrees with it. ACC# Date Time Exam [id number] Dec 13, 2014 09:41:00 [id number] MR Cardiac M&Func wwo cont [id number] Dec 13, 2014 09:43:00 [id number] MR Cardiac Flow Velocity ACC# Date Time Exam [id number] Dec 13, 2014 09:41:00 [id number] MR Cardiac M&Func wwo cont [id number] Dec 13, 2014 09:43:00 [id number] MR Cardiac Flow Velocity EXAMINATION: Cardiac MRI Morphology and Function with/without Contrast, w/ Cardiac MRI Flow Quantification DATE OF STUDY: 12/13/2014 COMPARISON: No prior imaging for comparison. TECHNIQUE: Multiplanar MR imaging of the heart utilizing HASTE, TRUFISP and flow quantification imaging sequences was performed without and with the administration of 40 mL intravenous gadolinium contrast agent according to a custom monitored protocol. 3-D postprocessing was subsequently performed on a dedicated 3-D workstation. Patient's heart rate was 57 beats/min. Patient's weight is 180 kg and height was 193 cm. HISTORY: Cardiac murmur with echocardiogram showing asymmetric septal hypertrophy. 57 BPM, 180 kg, 193 cm FINDINGS: Anatomy: There is a four vessel, left-sided aortic arch with the left vertebral artery arising directly from the arch. Left Ventricular (LV) Size and Function: Enlarged, with focal thickening of the proximal to mid left ventricular septum (measurements below). No focal wall motion abnormality. LV functional parameters: LVEF, 66 %. LV end diastolic volume, 299 mL. LV end systolic volume, 101 mL. Stroke volume, 198 mL. Cardiac output, 11.19 L/min. Cardiac index, 3.77 L/min/meter2 ; BSA 2.96 meter2. Left ventricular myocardial thickness (end diastole): Base: Septum: 9 mm Free wall: 10 mm Mid: Septum: 16 mm Free wall: 10 mm Timpson: Septum: 10 mm Free wall: 10 mm Right Ventricular Size and Function: Normal size and function, without focal wall motion abnormality. Aortic flow quantification: Peak flow: 1.3 cm/s Peak gradient: 6.8 mmHg Avg Flow/beat: 158 mL/beat Avg Flow/min:10.0 L/min Forward Flow/beat: 158 mL/beat Backward Flow/beat: 0 mL/beat Regurgitant fraction: 0 % Delayed contrast enhancement: There is no abnormal contrast enhancement. Small amount of ghosting artifact is noted within the myocardium on short axis images, which is better appreciated on the 4-chamber long axis images. Valves: Mitral valve: No regurgitation or stenosis. No systolic motion of the anterior leaflet. Tricuspid valve: No regurgitation or stenosis. Pulmonic valve: No regurgitation or stenosis. Aortic valve: No regurgitation or stenosis. IMPRESSION: There is a relatively focal thickening of the proximal/mid intraventricular septum (1.6 cm ), which would meet criteria for asymmetric hypertrophic cardiomyopathy (Septal thickness > 1.5 cm and Septal thickness/free wall thickness > 1.5:1), the absence of delayed contrast enhancement and absence of systolic anterior motion (ROMAN) of the anterior leaflet of the mitral valve, however suggests that this most likely represents a sigmoid septum which can be seen in hypertension. Requested By: Dictated By: ERIBERTO FOSS M.D. on Dec 13 2014 3:20P This document has been electronically signed by: EULALIA MARS M.D. on Dec 13 2014 6:33P [id number] Historical Provider [facility] MRI PROCEDURES Final Result * Blood creatinine, point of care (12/13/2014 7:21 AM CDT) Creatinine, POC, bld 0.9 0.4 - 1.2 mg/dl HISTORICAL RESULTS Blood specimen (specimen) 12/13/2014 7:21 AM CDT Astrid Campbell MD LAB BLOOD ORDERABLES Final Result HISTORICAL RESULTS documented in this encounter Visit Diagnoses Diagnosis Nonspecific (abnormal) findings on radiological and other examination of other intrathoracic organs Undiagnosed cardiac murmurs documented in this encounter
--- OUTSIDE RECORDS SUMMARY | 2024-05-10 17:16 | XMS_ITS | Encounter Summary ---
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
--- OUTSIDE RECORDS SUMMARY | 2024-05-10 17:16 | XMS_ITS | Encounter Summary ---
Author Organization [facility] Address [address] [place] [address] Phone Care Team Providers Care Skirt Maker Name Role Phone Etelvina Del Cid MD Primary Care Provider + Encounter Details Date Type Department Care Team (Late st Contact Info) Description 04/22/2018 Orders Only [facility] Cardiology [address] [facility] [address]th [place] [address] [place] [address] Jef Walton MD [address] [facility] [address] [place] [address] Asymmetric septal hypertrophy (CMS/HCC) (Primary Dx) Social History Tobacco Use Types Packs/Day Years Used Date Smoking Tobacco: Never Smokeless Tobacco: Never Alcohol Use Standard Drinks/Week Comments No 0 (1 standard drink = 0.6 oz pur e alcohol) Sex and Gender Information Value Date Recorded Sex Assigned at Not on file 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
--- OUTSIDE RECORDS SUMMARY | 2024-05-10 17:16 | XMS_ITS | Encounter Summary ---
Author Organization [facility] Address [address] [place] [address] Phone Care Team Providers Care Associate Justice Name Role Phone Etelvina Del Cid MD Primary Care Provider + Reason for Visit * Reason Onset Date Comments Med Management 07/23/2018 Encounter Details Date Type Department Care Team (Late st Contact Info) Description 07/23/2018 Telephone [facility] Cardiology [address] 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 Informed pharmacist Dr. Walton increased indapamide to 2.5mg qd. She has no further questions. * Telephone Encounter - Tye Burroughs - 07/23/2018 12:08 PM CDT KIRIT REQ CALL BACK REGARDING DOSAGE OF INDAPAMIDE, PLS CALL documented in this encounter Plan of Treatment Not on file documented as of this encounter Visit Diagnoses Not on filedocumented in this encounter Care Teams Associate Justice Relationship Specialty Start Date End Date Etelvina Del Cid MD [address] [place] [address] [address] PCP - General 08/14/16 03/10/19 documented as of this encounter
--- OUTSIDE RECORDS SUMMARY | 2024-05-10 17:16 | XMS_ITS | Encounter Summary ---
Author Organization [facility] Healthcare Address [address] [place] [address] Care Team Providers Care [employer] Diver Name Role Phone Etelvina Del Cid MD Primary Care Provider + Encounter Details Date Type Department Care Team (Latest Contact Info) Description 09/06/2017 9:39 AM CDT - 09/06/2017 11:59 PM CDT Hospital Encounter [facility] INTERIM [phone] Debbie Perales MD [address] [facility] [address] [place] [address] Discharge Disposition: Discharge to home or self care Social History Tobacco Use Types Packs/Day Years Used Date Smoking Tobacco: Never Sex and Gender Information Value Date Recorded Sex Assigned at Not on file 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 Gender Identity Male 12/18/2017 12:38 PM [...] Procedure Name Priority Date/Time Associated Diagnosis Comments US ABDOMEN LIMITED Routine 09/06/2017 4: 33 PM CDT IRON PROFILE W/ IBC Routine 09/06/2017 1 2:01 PM CDT FOLATE Routine 09/06/2017 12:01 PM CDT FERRITIN Routine 09/06/2017 12:01 PM CDT VITAMIN B12 Routine 09/06/2017 12:01 PM CDT DIFFERENTIAL AUTO Routine 09/06/2017 11: 00 AM CDT CBC WITH AUTO DIFFERENTIAL Routine 09/06/2017 11:00 AM CDT THYROID FUNCTION CASCADE Routine 09/06/2017 10:52 AM CDT HEPATITIS PANEL, ACUTE Routine 09/06/2017 10:52 AM CDT VITAMIN D 25 HYDROXY Routine 09/06/2017 10:52 AM CDT TESTOSTERONE, TOTAL AND FREE, SERUM Routine 09/06/2017 10:52 AM CDT HEPATIC FUNCTION PANEL Routine 09/06/2017 10:52 AM CDT DISCHARGE LABORATORY CUMULATIVE REPORT 09/06/2017 12:00 AM CDT documented in this encounter Results * US Abdomen Limited (09/06/2017 4:33 PM CDT) Anatomical Region Laterality Modality Abdomen N/A Ultrasound 09/06/2017 4:33 PM CDT Narrative 09/06/2017 5:19 PM CDT NEGRITA DICKSON M.D. RAMON KELLY M.D. FINAL REPORT The radiology attending physician has personally reviewed this study, and has reviewed and/or edited this written report and agrees with it. ACC# ??Date Time ??Exam [id number] September 06, 2017 11:33:00 [id number] [employer] EXAMINATION: ??LIMITED ABDOMINAL SONOGRAM HISTORY: ??21-year-old man with elevated liver function enzymes, evaluate for gastric bypass surgery. COMPARISON: ??None FINDINGS: ??The exam is severely limited due to patient body habitus. Liver: The liver is normal in size. ??The echotexture is normal. ??The echogenicity is increased. There is no surface nodularity. No focal solid lesions are visualized. ??Hepatic vasculature is not visualized due to poor acoustic window. Gallbladder: The gallbladder is normal in size. There are no stones or sludge within the gallbladder. There is no gallbladder wall thickening. Bile Duct: There is no intrahepatic bile duct dilatation. The common duct measures 4 mm in the proximal segment. ?? Right Kidney: There is no hydronephrosis in the visualized portions of the right kidney. Pancreas: The visualized portions of the head and body of the pancreas are normal. Inferior vena cava: The proximal IVC is normal. IMPRESSION: ??1. Hepatic steatosis Electronically signed by: Negrita Dickson M.D. Requested By: DEBBIE PERALES ??Roma ? Dictated By: ?? RAMON KELLY M.D. ??on September ??2017 11:39A This document has been electronically signed by: NEGRITA DICKSON M.D. on Sep 06 2017 12:16P [id number] ESPANA M.D. FINAL REPORT The radiology attending physician has personally reviewed this study, and has reviewed and/or edited this written report and agrees with it. Attending: ??ANGELLA, ??DEBBIE Requesting: ??ANGELLA, ??DEBBIE Requesting Fax: ?? Attending Fax: ?? Attending ID: ??[id number] Requesting ID: ??[id number] Report To 1 ID: ??[id number] ? Report To 1 Name: ??, ?? Report To 1 FAX: ?? NextGen Order #: ?? Procedure Note Miscellaneous, Not In File - 09/06/2017 Roma ESPANA M.D. FINAL REPORT The radiology attending physician has personally reviewed this study, and has reviewed and/or edited this written report and agrees with it. ACC# Date Time Exam [id number] September 06, 2017 11:33:00 [id number] [employer] EXAMINATION: LIMITED ABDOMINAL SONOGRAM HISTORY: 21-year-old man with elevated liver function enzymes, evaluate for gastric bypass surgery. COMPARISON: None FINDINGS: The exam is severely limited due to patient body habitus. Liver: The liver is normal in size. The echotexture is normal. The echogenicity is increased. There is no surface nodularity. No focal solid lesions are visualized. Hepatic vasculature is not visualized due to poor acoustic window. Gallbladder: The gallbladder is normal in size. There are no stones or sludge within the gallbladder. There is no gallbladder wall thickening. Bile Duct: There is no intrahepatic bile duct dilatation. The common duct measures 4 mm in the proximal segment. Right Kidney: There is no hydronephrosis in the visualized portions of the right kidney. Pancreas: The visualized portions of the head and body of the pancreas are normal. Inferior vena cava: The proximal IVC is normal. IMPRESSION: 1. Hepatic steatosis Electronically signed by: Negrita Dickson M.D. Requested By: DEBBIE PERALES M.D. Dictated By: RAMON KELLY M.D. on Sep 06 2017 11:39A This document has been electronically signed by: NEGRITA DICKSON M.D. on Sep 06 2017 12:16P [id number] ESPANA M.D. FINAL REPORT The radiology attending physician has personally reviewed this study, and has reviewed and/or edited this written report and agrees with it. Attending: DEBBIE PERALES Requesting: DEBBIE PERALES Requesting Fax: Attending Fax: Attending ID: [id number] Requesting ID: [id number] Report To 1 ID: [id number] Report To 1 Name: , Report To 1 FAX: NextGen Order #: [id number] Debbie Perales MD [facility] US PROCEDURES Final Result * Iron profile (09/06/2017 12:01 PM CDT) Iron 122 50 - 150 mcg/dL TRACIE ELIZONDO Comment:Testing performed by : [facility], [address] [place] [address], [place]., [address] TIBC 368 250 - 400 mcg/dL TRACIE ELIZONDO Comment:Testing performed by : [facility], [address] [place] [address]., [address] Transferrin 263 200 - 360 mg/dL TRACIE ELIZONDO Comment:Testing performed by : [facility], [address] [place] [address]., [address] Transferrin saturation 33.2 20.0 - 50.0 % TRACIE ELIZONDO Comment:Testing performed by : [facility], [address] [place] [address]., [address] Blood specimen (specimen) 09/06/2017 12:01 PM CDT 09/06/2017 2:00 PM CDT Narrative TRACIE ELIZONDO - 09/06/2017 2:46 PM CDT Debbie Perales MD LAB BLOOD ORDERABLES Fin al Result Performing Organization Address [facility] Co de Phone Number [facility] [address] [place] [address] * Folate (09/06/2017 12:01 PM CDT) Folic acid 11.3 >=5.0 ng/mL TRACIE ELIZONDO Comment:Testing performed by : [facility], [address] [place] [address]., [address] Blood specimen (specimen) 09/06/2017 12:01 PM CDT 09/06/2017 2:00 PM CDT Narrative TRACIE ELIZONDO - 09/06/2017 2:46 PM CDT Debbie Perales MD LAB BLOOD ORDERABLES Fin al Result Performing Organization Address City/[facility] Co de Phone Number [facility] [address] [place] [address] * Vitamin B12 (09/06/2017 12:01 PM CDT) Vitamin B12 524 210 - 900 pg/mL TRACIE ELIZONDO Comment:Testing performed by : [facility], [address] [place] [address]., [address] Blood specimen (specimen) 09/06/2017 12:01 PM CDT 09/06/2017 2:00 PM CDT Narrative TRACIE ELIZONDO - 09/06/2017 2:46 PM CDT Debbie Perales MD LAB BLOOD ORDERABLES Fin al Result Performing Organization Address [facility] de Phone Number TRACIE DIAZCH [address] [employer] [place], [place] [id number] * Ferritin (09/06/2017 12:01 PM CDT) Pathologist [facility] [place] Ferritin 337.7 30.0 - 400.0 ng/mL TRACIE ELIZONDO Comment: Interpretive Data On July 31, 2016 new Chemistry Instrumentation was implemented. ??If you have any questions, please contact the Laboratory at [phone]. Testing performed by: [facility], [address] [place] [address]., [id number] Blood specimen (specimen) 09/06/2017 12:01 PM CDT 09/06/2017 2:00 PM CDT Narrative TRACIE ELIZONDO - 09/06/2017 2:46 PM CDT Debbie Perales MD LAB BLOOD ORDERABLES Fin al Result Performing Organization Address [facility] Co de Phone Number TRACIE DIAZCH [address] [address] Department [facility] [place] [address] * Differential, auto (09/06/2017 11:00 AM CDT) Neutrophil pct 60.7 % [facility] Imm gran pct 0.3 % [facility] Lymphocyte pct 27.3 % [facility] Monocyte pct 8.1 % [facility] Eosinophil pct 3.0 % [facility] Basophil pct 0.6 % [facility] Neutrophil abs 4.07 1.70 - 6.50 K/cumm [facility] Imm gran abs 0.02 0.00 - 0.10 K/cumm [facility] Lymphocyte abs 1.83 0.80 - 3.30 K/cumm [facility] Monocyte abs 0.54 0.20 - 0.80 K/cumm [facility] Eosinophil abs 0.20 0.00 - 0.50 K/cumm [facility] Basophil abs 0.04 0.00 - 0.10 K/cumm [facility] Blood specimen (specimen) 09/06/2017 11:00 AM CDT 09/06/2017 11:54 AM CDT Narrative [facility]INNER [facility] - 09/06/2017 12:00 PM CDT us Debbie Perales MD LAB BLOOD ORDERABLES Fin al Result [facility] [address] [facility]. [place] [address] * CBC with auto differential (09/06/2017 11:00 AM CDT) WBC 6.7 3.8 - 9.9 K/cumm [facility] W RBC 5.29 4.30 - 5.80 M/cumm [facility] Hgb 15.8 13.0 - 17.5 g/dL [facility] Hct 45.2 38.9 - 50.3 % [facility] MCV 85.4 81.3 - 96.4 fL [facility] MCH 29.9 27.1 - 33.3 pg [facility] MCHC 35.0 32.3 - 35.7 g/dL [facility] RDW CV 12.3 11.1 - 14.9 % [facility] RDW SD 37.9 35.7 - 48.1 fL [facility] Plt 274 150 - 400 K/cumm [facility] MPV 9.6 9.1 - 12.3 fL [facility] NRBC abs 0.00 0.00 - 0.01 K/cumm [facility] Blood specimen (specimen) 09/06/2017 11:00 AM CDT 09/06/2017 11:54 AM CDT Narrative TRACIE ELIZONDO - 09/06/2017 12:00 PM CDT Debbie Perales MD LAB BLOOD ORDERABLES Fin al Result Performing Organization Address [facility] Co de Phone Number TRACIE [facility] [address] [facility] [place] [address] * (ABNORMAL) Testosterone, free, total (09/06/2017 10:52 AM CDT) [facility] Testosterone 187(L) 240 - 950 ng/dL TRACIE ELIZONDO Comment: ADDITIONAL INFORMATION Testing performed by Liquid Chromatography-Tandem Mass Spectrometry (LC-MS/MS). This test was developed and its performance characteristics determined by [facility] in a manner consistent with CLIA requirements. This test has not been cleared or approved by the U.S. Food and Drug Administration. Test Performed by: [facility] [address] [place] [address] Testosterone, free 6.92 5.36 - 21.2 ng/dL TRACIE ELIZONDO Comment: ADDITIONAL INFORMATION Testing performed by [facility]. This test was developed and its performance characteristics determined by [facility] in a manner consistent with CLIA requirements. This test has not been cleared or approved by the U.S. Food and Drug Administration. Blood specimen (specimen) 09/06/2017 10:52 AM CDT 09/06/2017 11:02 AM CDT Narrative TRACIE BRANDIEDEN - 09/10/2017 11:15 AM CDT Debbie Perales MD LAB BLOOD ORDERABLES Fin al Result Performing Organization Address [facility] Co de Phone Number TRACIE DIAZCH [address] [address] [place] [address] * Hepatitis panel, acute (09/06/2017 10:52 AM CDT) Hep A IgM Nonreactive Nonreactive TRACIE DIAZ Comment: Interpretive Data If test is reported as GRAYZONE, new sample should be drawn in two weeks for testing. Current interpretive data was last revised on 2016. Testing performed by: [facility], [address] [place]., [address] Hep B core IgM Nonreactive Nonreactive TRACIE [facility] Comment: Interpretive Data If test is reported as GRAYZONE, new sample should be drawn for testing. Current interpretive data was last revised on 2016. Testing performed by: [facility], [address] [place]., [address] Hep C Ab Nonreactive Nonreactive [facility]IE [facility] Comment: Interpretive Data Positive and greyzone results should be confirmed by a molecular method. If positive or greyzone, a second separately collected sample should be submitted for Hepatitis C Virus RNA. Detection and Quantitation by Real-Time Reverse Operative Supervisor-PCR.Current Interpretive data was last revised on 2016. Testing performed by: [facility], [address] [place]., [address] HepBsAg Nonreactive Nonreactive TRACIE [facility] Comment:Testing performed by : [facility], [address] [place] [address]., [id number] Blood specimen (specimen) 09/06/2017 10:52 AM CDT 09/06/2017 1:28 PM CDT Narrative TRACIE ELIZONDO - 09/07/2017 8:57 AM CDT Debbie Perales MD LAB MICROBIOLOGY - GENER AL ORDERABLES Edited Result - Final TRACIE DIAZCH [address] [address] [place] [address] * (ABNORMAL) Vitamin D 25 hydroxy (09/06/2017 10:52 AM CDT) Vitamin D 25-OH 16(L) 30 - 80 ng/mL ESVINNER JOE Comment:Testing performed by : [facility], [address] [facility], [place]., [address] Blood specimen (specimen) 09/06/2017 10:52 AM CDT 09/06/2017 1:29 PM CDT Narrative TRACIE PAZWCH - 09/06/2017 2:29 PM CDT Debbie Perales MD LAB BLOOD ORDERABLES Fin al Result Performing Organization Address [facility] Co de Phone Number TRACIE [facility] [address] [employer] [place], [place] [id number] * (ABNORMAL) Hepatic function panel (09/06/2017 10:52 AM CDT) Pathologist [facility] [place] AST 43 10 - 50 Units/L [facility] ALT 87(H) 7 - 55 Units/L [facility] Alk phos 72 70 - 260 Units/L [facility] Bilirubin, total 0.5 0.1 - 1.2 mg/dL [facility] Bilirubin, direct <0.2 0.1 - 0.3 mg/dL [facility] Protein, pl 7.6 6.5 - 8.5 g/dL [facility] Albumin 4.3 3.5 - 5.0 g/dL [facility] Blood specimen (specimen) 09/06/2017 10:52 AM CDT 09/06/2017 11:02 AM CDT Narrative TRACIE PAZWCH - 09/06/2017 11:44 AM CDT Debbie Perales MD LAB BLOOD ORDERABLES Fin al Result Performing Organization Address City/[facility]/ZIP Co de Phone Number [facility] [address] [address] [employer] [place], [place] [id number] * TSH reflex to free T4 (09/06/2017 10:52 AM CDT) TSH 2.56 0.30 - 4.20 mcUnits/mL TRACIE ELIZONDO Blood specimen (specimen) 09/06/2017 10:52 AM CDT 09/06/2017 11:02 AM CDT Narrative TRACIE ELIZONDO - 09/06/2017 11:36 AM CDT Debbie Perales MD LAB BLOOD ORDERABLES Arsh cristel Result - Final TRACIE [facility] [address] [facility] [place] [address] * DISCHARGE LABORATORY CUMULATIVE REPORT (09/06/2017 12:00 AM CDT) Narrative 09/06/2017 12:00 AM CDT Ordered by an unspecified provider. Historical Provider LAB BLOOD ORDERABLES Melina l Result documented in this encounter Visit Diagnoses Not on filedocumented in this encounter Care Teams [employer] D[employer] Relationship Specialty Start Date End Date Etelvina Del Cid MD [address] [address] PCP - General 08/14/16 03/10/19 documented as of this encounter
--- OUTSIDE RECORDS SUMMARY | 2024-05-10 17:16 | XMS_ITS | Encounter Summary ---
Author Organization [facility] Healthcare Address [address] [place] [address] Care Team Providers Care Product Development Assistant Name Role Phone Jann Burrows MD Primary Care Provider [phone] Reason for Visit * Reason Comments Hospital Follow Up DKA Encounter Details Date Type Department Care Team (Late st Contact Info) Description 03/13/2019 11:15 AM ASSOCIATE PROFESSOR [employer] Office Visit [facility] Primary Care Medicine Clinic [address] [facility] [address] [facility] [address] [place] [address] Natan Laureano MD [address] [facility] [address] [place] [address] Nikita Buchanan MD [address] [facility] [id number] [place] [address] Metabolic syndrome (Primary Dx); Morbid obesity with BMI of 50.0-59.9, adult (CMS/HCC); Essential hypertension Discharge Disposition: Discharge to home or self care Social History Tobacco Use Types Packs/Day Years Used Date Smoking Tobacco: Never Smokeless Tobacco: Never Alcohol Use Standard Drinks/Week Comments Yes 24 (1 standard drink = 0.6 oz pu re alcohol) CAGE negative. Case per week. 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 Not on file Not on file documented as of this encounter Last Filed Vital Signs Vital Sign Reading Time Taken Comments Blood Pressure 153/93 03/13/2019 11:10 AM ASSOCIATE [employer] did not take BP meds Pulse 95 03/13/2019 11:10 AM ASSOCIATE [employer] Temperature 36.7 ??C (98 ??F) 03/13/2019 11: 10 AM ASSOCIATE [employer] Respiratory Rate 14 03/13/2019 11:1 0 AM ASSOCIATE [employer] Oxygen Saturation 96% 03/13/2019 11: 10 AM ASSOCIATE [employer] Inhaled Oxygen Concentration - - Weight 215.5 kg (475 lb) 03/13/2019 11: 10 AM ASSOCIATE [employer] Height 200.7 cm (6' 7 ) 03/13/2019 11:1 0 AM ASSOCIATE [employer] Body Mass Index 53.51 03/13/2019 11:10 AM ASSOCIATE [employer] documented in this encounter Patient Instructions * Patient Instructions* Nikita Buchanan MD - 03/13/2019 11:15 AM ASSOCIATE [employer] Get bloodwork drawn today on the fourth floor. Follow up with endocrinology as scheduled on . CIATE PROFESSOR [employer]ATE [employer] documented in this encounter Ordered Prescriptions Prescription Sig Dispense Quantity Refills Last Filled Start Date End Date pen needle, diabetic (BD ULTRA-FINE RADHA PEN NEEDLE) 32 gauge x 5/32 needleIndications: Metabolic syndrome Use to test BG three times a day as instructed 100 each 03/13/2019 9 documented in this encounter Discharge Disposition Disposition Code Departure Means Destination Discharge to home or self care documented in this encounter Progress Notes * Nikita Buchanan MD - 03/13/2019 11:15 AM CST AMBJAR NOTE Patient ID: Geraldo Velez is a 23 y.o. male Current PCP: Jann Burrows MD SUBJECTIVE CHIEF COMPLAINT Chief Complaint Patient presents with ??? Hospital Follow Up DKA HPI Geraldo Velez is a 23 y.o. male with hx of HTN, severe obesity, metabolic syndrome, asymettric septal hypertrophy recently admitted 03/02-03/08 for DKA who p/f PHV. He was admitted for about 1 week of chest tightness, polyuria, polydipsia, tachycardia. BG 591, serum ketones 3.4, AG 22. Trops, EKG, BNP reportedly unremarkable. TG 1,274. Started on insulin gtt andfluids. Symptoms resolved w/ improvement in blood sugars. At discharge, patient's insulin regimen was: 80U U500 TID 30 minutes prior to meals, 10u lispro TIDwith meals, and metformin 500mg BID. He was also started on lipitor 20 and lisinopril 5mg. Patient was seen by service center technician and nutrition to educate the patient about carbohydrate consistent diet, weight loss, glucometer use, and insulin pens. He forgot his BG log today but per him and mother in the room BGs have been running 90s to low 100s. Highest has been in the 150s. Lowest was 89. Rare, intermittent blurry vision. no numnbess/tingling in the LEs. No LH, syncope, CP, SOB. he is trying to diet and exercise. Previously reffered to bariatric surgery but hasn't been able to get time off his job. Been seen by Dr Bobo and been to the weight loss seminar. Most recent labs at discharge w/ K 3.2, Cr 0.84, Na 137 PAST MEDICAL HISTORY Past Medical History: Diagnosis Date ??? HTN (hypertension) ??? Metabolic syndrome ??? Morbid obesity with BMI of 50.0-59.9, adult ([facility]) 07/10/2017 HOME MEDICATIONS HOME MEDICATIONS : atorvastatin (LIPITOR) 20 mg tablet blood glucose diagnostic (ONETOUCH ULTRA TEST) strip blood-glucose meter kit carvedilol (COREG) 25 mg tablet glucagon 1 mg kit indapamide (LOZOL) 2.5 mg tablet insulin lispro (HumaLOG) 100 unit/mL injection insulin regular U-500 (HumuLIN R U-500) 500 unit/mL CONCENTRATED injection lancets misc lisinopril (PRINIVIL,ZESTRIL) 5 mg tablet metFORMIN (GLUCOPHAGE) 500 mg tablet pen needle, diabetic (BD ULTRA-FINE RADHA PEN NEEDLE) 32 gauge x 5/32 needle ALLERGIES AND DRUG REACTIONS No Known Allergies SOCIAL AND FUNCTIONAL HISTORY Social History Socioeconomic History ??? Marital status: Single Spouse name: Not on file ??? Number of children: Not on file ??? Years of education: Not on file ??? Highest education level: Not on file Occupational History ??? 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 Financial resource strain: Not on file ??? Food insecurity: Worry: Not on file Inability: Not on file ??? Transportation needs: Medical: Not on file Non-medical: Not on file Tobacco Use ??? Smoking status: Never Smoker ??? Smokeless tobacco: Never Used Substance and Sexual Activity ??? Alcohol use: Yes Alcohol/week: 24.0 standard drinks Types: 24 Cans of beer per week Comment: CAGE negative. Case per week. ??? Drug use: No ??? Sexual activity: Defer Lifestyle ??? Physical activity: Days per week: Not on file Minutes per session: Not on file ??? Stress: Not on file Relationships ??? Social connections: Talks on phone: Not on file Gets together: Not on file Attends lutheran service: Not on file Active member of club or organization: Not on file Attends meetings of clubs or organizations: Not on file Relationship status: Not on file ??? Intimate partner violence: Fear of current or ex partner: Not on file Emotionally abused: Not on file Physically abused: Not on file Forced sexual activity: Not on file Other Topics Concern ??? Not on file Social History Narrative Non-smoker : (Added by TW Conv) Non-smoker : (Added by TW Conv) REVIEW OF SYSTEMS: All review of systems are negative except for where noted in the HPI OBJECTIVE VITALS Vitals BP 153/93 (BP Location: Right arm, Patient Position: Sitting) Pulse 95 Temp 36.7 ??C (98 ??F) (Oral) Resp 14 Ht 200.7 cm (6' 7 ) Wt (!) 215.5 kg (475 lb) SpO2 96% BMI 53.51 kg/m?? PHYSICAL EXAM Vitals reviewed. Constitutional: Morbidly obese. Well-developed and well-nourished. No acute distress Head: Normocephalic and atraumatic. HEENT: EOMI, PERRL, no scleral icterus, MMM Neck: Normal range of motion. Neck supple. No thyromegaly present. No JVD Cardiovascular: RRR, No M/G/R Pulmonary/Chest: CTAB, No increased WOB Abdominal: Soft, NTND, Normoactive Bowel Sounds, No HSM, Non-peritoneal Musculoskeletal: Normal range of motion. No DIANE. No deformity Neurological: AO x 3, No Focal neurologic deficits Skin: Acanthosis nigricans noted on the neck. Skin is warm and dry. Capillary refill takes less than 2 seconds. No rash noted. ASSESSMENT & PLAN ##############AMBJAR VISIT#################### Geraldo Velez is a 23 y.o. male who presents for PHV after DKA. Metabolic syndrome Recently admitted for diabetic ketoacidosis. Also with hypertriglyceridemia, severe obesity, HTN. His current insulin regimen is 80 units U 500 T.i.d. 30 minutes prior to meals, lispro 10 units with meals, metformin 500 b.i.d. And his blood sugars have been very well controlled with this. I confirmed that he is on no long-acting insulin and is using U 500 3 times a day. He was also started on lisinopril and atorvastatin during his recent admission. Triglycerides in the thousands. Plan: -provided and other blood glucose log today -follow up with endocrinology as already scheduled on this particularly given U 500 use several times daily. I will make no changes to his insulin regimen today given that his blood sugars have been very well controlled. -BMP given recent lisinopril initiation -ophthalmology referral -condenser winder -hadoop java developer referral -refilled 32 gauge 5/32 inch insulin needles for U 500 -continue to emphasize importance of weight loss. 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 Did not take his blood pressure medicines which are carvedilol, lisinopril, and Lozol (prescribed by his guzzler builder Dr. Walton). Blood pressure previously very well controlled, I will make no changes today. Follow up with PCP Staffed: Amanda All other issues per PCP Nikita Buchanan MD Internal Medicine PGY-2 Cosigned by Evangelina Patel MD at 03/15/2019 5:29 AM ASSOCIATE PROFESSOR [employer] CIATE PROFESSOR [employer] CIATE PROF[employer]OR [employer] Associated attestation - Evangelina Patel MD - 03/15/2019 5:29 AM ASSOCIATE PROF[employer] I have seen and examined the patient. I agree with the findings and plan of care as documented in the resident/fellow's note. Evangelina Patel MD * Jef Craig RN - 03/13/2019 11:15 AM CST Patient indicates understanding of discharge plan of care, instructions given by MD. Patient deniesquestions. Patient escorted to the checkout desk. Patient ambulating and stable at discharge. 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 Did not take his blood pressure medicines which are carvedilol, lisinopril, and Lozol (prescribed by his guzzler builder Dr. Walton). Blood pressure previously very well controlled, I will make no changes today. Follow up with PCP CIATE PROFESSOR [employer] * Assessment & Plan Note - Nikita Buchanan MD - 03/13/2019 12:05 PM ASSOCIATE PROFESSOR [employer] Associated Problem(s): Metabolic syndrome (Deleted) Recently admitted for diabetic ketoacidosis. Also with hypertriglyceridemia, severe obesity, HTN. His current insulin regimen is 80 units U 500 T.i.d. 30 minutes prior to meals, lispro 10 units with meals, metformin 500 b.i.d. And his blood sugars have been very well controlled with this. I confirmed that he is on no long-acting insulin and is using U 500 3 times a day. He was also started on lisinopril and atorvastatin during his recent admission. Triglycerides in the thousands. Plan: -provided and other blood glucose log today -follow up with endocrinology as already scheduled on this Thursday particularly given U 500 use several times daily. I will make no changes to his insulin regimen today given that his blood sugars have been very well controlled. -BMP given recent lisinopril initiation -ophthalmology referral -condenser winder -hadoop java developer referral -refilled 32 gauge 5/32 inch insulin needles for U 500 -continue to emphasize importance of weight loss. I believe he would be a very good candidate for bariatric surgery if this becomes feasible CIATE PROF[employer] documented in this encounter Plan of Treatment Not on file documented as of this encounter Results * Basic metabolic panel (03/13/2019 12:30 PM ASSOCIATE PROFESSOR [employer]) Sodium 142 135 - 145 mmol/L [facility] Potassium, pl 4.3 3.3 - 4.9 mmol/L [facility] Comment:Hemolyzed; (++); pot assium value may be falsely elevated by as much as 0.3 - 0.5 mmol/L. Suggest redraw and reanalysis. Chloride 107 97 - 110 mmol/L [facility] CO2 25 22 - 32 mmol/L [facility] Anion gap 10 2 - 15 mmol/L [facility] BUN 14 8 - 25 mg/dL [facility] Creatinine 0.87 0.80 - 1.30 mg/dL [facility] Glucose 90 70 - 199 mg/dL [facility] Comment: Interpretive Data Fasting glucose >/= [...] 2017. Calcium 9.4 8.5 - 10.3 mg/dL [facility] Blood specimen (specimen) 03/13/2019 12:30 PM ASSOCIATE PROFESS[employer] 03/13/2019 1:46 PM ASSOCIATE PROF[employer] Nikita Buchanan MD LAB BLOOD ORDERABLES Final Resul t TRACIE PAZ [facility] [place] [address] documented in this encounter Visit Diagnoses Diagnosis Metabolic syndrome- Primary Dysmetabolic Syndrome X Morbid obesity with BMI of 50.0-59.9, adult (HCC) Essential hypertension Unspecified essential hypertension documented in this encounter Care Teams Product Development Assistant Relationship Specialty Start Date End Date Jann Burrows MD [address] [facility] [address] [place] [address] PCP - General Hematology 03/13/19 10/28/21 documented as of this encounter
--- OUTSIDE RECORDS SUMMARY | 2024-05-10 17:16 | XMS_ITS | Encounter Summary ---
Author Organization [facility] Address [address] [place] [address] Phone Care Team Providers Care Airborne Weapons Technical Manager Name Role Phone Etelvina Del Cid MD Primary Care Provider + No, Physician Primary Care Provider [phone] Jann Burrows MD Primary Care Provider [phone] Encounter Details Date Type Department Care Team (Late st Contact Info) Description 03/04/2019 Telephone [facility] Cardiology [address] [facility] [address] [place] [address] [place] [address] Jef Walton MD [address] [facility] [address] [place], [place] [id number] Social History Tobacco Use Types Packs/Day Years Used Date Smoking Tobacco: Never Smokeless Tobacco: Never Alcohol Use Standard Drinks/Week Comments Yes 24 (1 standard drink = 0.6 oz pu re alcohol) CAGE negative. Case per week. 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 Please call if questions. documented in this encounter Plan of Treatment Not on file documented as of this encounter Visit Diagnoses Not on filedocumented in this encounter Care Teams Airborne Weapons Technical Manager Relationship Specialty Start Date End Date Etelvina Del Cid MD [address] [address] PCP - General 08/14/16 03/10/19 No, Physician PCP - General 03/11/19 03/12/19 Jann Burrows MD [address] [facility] [address] [place] [address] PCP - General Hematology 03/13/19 10/28/21 documented as of this encounter
--- OUTSIDE RECORDS SUMMARY | 2024-05-10 17:16 | XMS_ITS | Encounter Summary ---
Author Organization [facility] Healthcare Address [address] [place] [id number] Care Team Providers Care Cytogenetic Technologist Name Role Phone Etelvina Del Cid MD Primary Care Provider + Reason for Referral * MRI/CAT/PET Scan (Routine) - Closed Specialty Diagnoses / Procedures Referred By Marlaac t Referred To Contact Radiology Diagnoses Asymmetric septal hypertrophy Procedures Radiology Event Jef Walton MD Phone: tel: fax: [address] [phone] Referral ID Status Reason Start Date Expiration Date Visits Re quested Visits Authorized [id number] Closed 05/02/2018 11/11/2019 1 1 IAL EFFECTS DESIGNER Reason for Visit * Diagnostic Imaging (Routine) - Closed Specialty Diagnoses / Procedures Referred By Contac t Referred To Contact Radiology Diagnoses Asymmetric septal hypertrophy Procedures MRI Cardiac M&F WO Contrast MRI Cardiac M&F W WO Contrast Jef Walton MD Phone: tel: fax: [address] [address] Referral ID Status Reason Start Date Expiration Date Visits Re quested Visits Authorized [id number] Closed 04/22/2018 11/01/2019 1 1 Encounter Details Date Type Department Care Team (Latest Contact Info) Description 05/01/2018 8:03 AM SPECIAL EFFECTS DESIGNER - 05/01/2018 11:59 PM SPECIAL EFFECTS DESIGNER Hospital Encounter [facility] [address] [place] [address] Jef Walton MD [address] [facility] [address] [place] [address] Asymmetric septal hypertrophy (CMS/HCC) Discharge Disposition: Discharge to home or self care Social History Tobacco Use Types Packs/Day Years Used Date Smoking Tobacco: Never Smokeless Tobacco: Never Alcohol Use Standard Drinks/Week Comments No 0 (1 standard drink = 0.6 oz pur e alcohol) Sex and Gender Information Value Date Recorded Sex Assigned at Not on file Legal Sex Male 5:01 AM SPECIAL EFFECTS DESIGNER Gender Identity Male 12/18/2017 12:38 PM CDT Sexual Orientation Not on file documented as of this encounter Medications at Time of Discharge carvedilol (COREG) 25 mg tablet Take 1 tablet (25 mg total) by mouth 2 (two) times a day with meals. 60 tablet 5 04/16/2018 07/23/2018 indapamide (LOZOL) 1.25 mg tablet Take 1 tablet (1.25 mg total) by mouth every morning. 30 tablet 11 04/16/2018 07/23/2018 metFORMIN (GLUCOPHAGE) 500 mg tablet Take 1 tablet (500 mg total) by mouth 2 (two) times a day with meals. 60 tablet 1 10/10/2017 03/08/2019 documented as of this encounter Discharge Disposition Disposition Code Departure Means Destination Discharge to home or self care documented in this encounter Plan of Treatment Not on file documented as of this encounter Procedures Procedure Name Priority Date/Time Associated Diagnosis Comments RADIOLOGY EVENT Schedule Routine, Read Routine (OP Routine) 05/01/2018 10:16 AM SPECIAL EFFECTS DESIGNER Asymmetric septal hypertrophy (CMS/HCC) MRI CARDIAC M&F WO CONTRAST Schedule Routine, Read Routine (OP Routine) 05/01/2018 10:16 AM SPECIAL EFFECTS DESIGNER Asymmetric septal hypertrophy (CMS/HCC) POCT CREATININE FOR CONTRAST EVALUATION Routine Gen Lab 05/01/2018 9:07 AM SPECIAL EFFECTS DESIGNER documented in this encounter Results * Radiology Event (05/01/2018 10:16 AM SPECIAL EFFECTS DESIGNER) Anatomical Region Laterality Modality Magnetic Resonan ce 05/02/2018 2:16 PM SPECIAL EFFECTS DESIGNER Impressions 05/02/2018 2:16 PM SPECIAL EFFECTS DESIGNER IV infiltration. Ice pack placed on site. Patient given instructions to report to ED or call radiology if pain increased, redness developed, or numbness or tingling developed. Electronically signed by: Radames Balderas M.D. Narrative 05/02/2018 2:16 PM SPECIAL EFFECTS DESIGNER EXAMINATION: General Radiology Event Report DATE of EVENT:05/01/2018 I was asked to see CRISTI NIXON regarding IV infiltration. Event: This was a IV Infiltration 18 mL of Multihance was administered but patient immediately reported pain in arm at IV site. Actions: Examined arm. Palpable knot in the arm above IV. No redness but tender. Palpable radial pulse. The highest level of care provided Vital performed/Monitoring Procedure Note Radames Balderas MD - 05/02/2018 EXAMINATION: General Radiology Event Report DATE of EVENT:05/01/2018 I was asked to see CRISTI NIXON regarding IV infiltration. Event: This was a IV Infiltration 18 mL of Multihance was administered but patient immediately reported pain in arm at IV site. Actions: Examined arm. Palpable knot in the arm above IV. No redness but tender. Palpable radial pulse. The highest level of care provided Vital performed/Monitoring IMPRESSION: IV infiltration. Ice pack placed on site. Patient given instructions to report to ED or call radiology if pain increased, redness developed, or numbness or tingling developed. Electronically signed by: Radames Balderas M.D. us Jef Walton MD IMG CT PROCEDURES Final Resul t * MRI Cardiac M&F WO Contrast (05/01/2018 10:16 AM SPECIAL EFFECTS DESIGNER) Anatomical Region Laterality Modality Body N/A Magnetic Resonan ce 05/01/2018 11:2 4 AM SPECIAL EFFECTS DESIGNER Impressions 05/03/2018 11:46 AM SPECIAL EFFECTS DESIGNER Stable focal thickening of the proximal/mid interventricular septum without systolic anterior motion. ??Again, this likely represents a sigmoid septum which can be seen in the setting of hypertension. Dictated by: Giuliano Olmedo M.D. Electronically signed by: Marcos Jorgensen M.D. Narrative 05/03/2018 11:46 AM SPECIAL EFFECTS DESIGNER EXAM: ?? Cardiac MRI Morphology and Function without Contrast, w/ Cardiac MRI Flow Quantification DATE ??OF EXAMINATION: ??05/01/2018 9:00 AM COMPARISON: ??12/13/2014 TECHNIQUE: ?? Multiplanar MR imaging of the heart utilizing HASTE and TRUEFISP imaging sequences was performed without the administration of intravenous gadolinium contrast agent according to a custom monitored protocol. ??3-D postprocessing was subsequently ??performed on a dedicated 3-D workstation. The study was originally protocoled as cardiac MR with and without intravenous contrast; however, after the administration of intravenous contrast, there was an extravasation event and the study was then changed over to a noncontrast examination. Upon physical exam, the patient's right arm above the intravenous injection site was tense to palpation and the patient reports a feeling of mild fullness at that area. The patient reports no changes in sensation to the ipsilateral hand. The patient's ipsilateral hand color and strength were normal, and the radial and ulnar pulse was normal. ??Dr. Radames Balderas assessed the patient. The amount of contrast extravasation was 18 ml Dotarem. ??The patient refused to be be bolused and the examination was converted to a noncontrast examination. ?? HISTORY: History of hypertension with prior MR showing focal thickening of the proximal/mid interventricular septum suggestive of sigmoid septum. ?? Anatomy: There is a four-vessel left-sided aortic arch with the left vertebral artery arising directly from the arch. Left Ventricular (LV) Size and Function: ??There is no wall motion abnormality. ??There is asymmetric thickening of the proximal/mid left interventricular septum. LV functional parameters: LVEF, 66.9%. ?? LV end diastolic volume, 264 mL. ?? LV end systolic volume, 87.4 mL. ?? Stroke volume, 176.5 mL. Cardiac output, ??12.72 L/min. Cardiac index, 3.69 L/min/meter2 ; BSA 3.45 meter2. Left ventricular myocardial thickness (end diastole): Again seen is focal thickening of the proximal/mid interventricular septum without change measuring up to 17 mm, previously 16mm . ??The free wall measures 7 mm, previously 6 mm. Valves: Mitral valve: No regurgitation or stenosis. No systolic motion of the anterior leaflet. Tricuspid valve: No regurgitation or stenosis. Pulmonic valve: No regurgitation or stenosis. Aortic valve: No regurgitation or stenosis. Flow Quantification: Aorta above valve (HR 70 bpm) Peak velocity ??1.23 ??m/sec Fwd 138.8 ??ml Rev 1.0 ??ml Net ??137.8 ml Flow/CO 9.67 L/min MPA ??( HR 75 ??bpm) Peak velocity ??1.09 ??m/sec Fwd ?118 ??ml Rev ??10 ??ml (likely secondary to turbulence, no visible regurgitation) Net ? 118 ml Flow/CO 8.88 L/min Procedure Note Marcos Jorgensen MD - 05/03/2018 EXAM: Cardiac MRI Morphology and Function without Contrast, w/ Cardiac MRI Flow Quantification DATE OF EXAMINATION: 05/01/2018 9:00 AM COMPARISON: 12/13/2014 TECHNIQUE: Multiplanar MR imaging of the heart utilizing HASTE and TRUEFISP imaging sequences was performed without the administration of intravenous gadolinium contrast agent according to a custom monitored protocol. 3-D postprocessing was subsequently performed on a dedicated 3-D workstation. The study was originally protocoled as cardiac MR with and without intravenous contrast; however, after the administration of intravenous contrast, there was an extravasation event and the study was then changed over to a noncontrast examination. Upon physical exam, the patient's right arm above the intravenous injection site was tense to palpation and the patient reports a feeling of mild fullness at that area. The patient reports no changes in sensation to the ipsilateral hand. The patient's ipsilateral hand color and strength were normal, and the radial and ulnar pulse was normal. Dr. Radames Balderas assessed the patient. The amount of contrast extravasation was 18 ml Dotarem. The patient refused to be be bolused and the examination was converted to a noncontrast examination. HISTORY: History of hypertension with prior MR showing focal thickening of the proximal/mid interventricular septum suggestive of sigmoid septum. Anatomy: There is a four-vessel left-sided aortic arch with the left vertebral artery arising directly from the arch. Left Ventricular (LV) Size and Function: There is no wall motion abnormality. There is asymmetric thickening of the proximal/mid left interventricular septum. LV functional parameters: LVEF, 66.9%. LV end diastolic volume, 264 mL. LV end systolic volume, 87.4 mL. Stroke volume, 176.5 mL. Cardiac output, 12.72 L/min. Cardiac index, 3.69 L/min/meter2 ; BSA 3.45 meter2. Left ventricular myocardial thickness (end diastole): Again seen is focal thickening of the proximal/mid interventricular septum without change measuring up to 17 mm, previously 16mm . The free wall measures 7 mm, previously 6 mm. Valves: Mitral valve: No regurgitation or stenosis. No systolic motion of the anterior leaflet. Tricuspid valve: No regurgitation or stenosis. Pulmonic valve: No regurgitation or stenosis. Aortic valve: No regurgitation or stenosis. Flow Quantification: Aorta above valve (HR 70 bpm) Peak velocity 1.23 m/sec Fwd 138.8 ml Rev 1.0 ml Net 137.8 ml Flow/CO 9.67 L/min MPA ( HR 75 bpm) Peak velocity 1.09 m/sec Fwd 118 ml Rev 10 ml (likely secondary to turbulence, no visible regurgitation) Net 118 ml Flow/CO 8.88 L/min IMPRESSION: Stable focal thickening of the proximal/mid interventricular septum without systolic anterior motion. Again, this likely represents a sigmoid septum which can be seen in the setting of hypertension. Dictated by: Giuliano Olmedo M.D. Electronically signed by: Marcos Jorgensen M.D. us Jef Walton MD IMG MRI PROCEDURES Final Resu lt * POCT creatinine for contrast evaluation (05/01/2018 9:07 AM SPECIAL EFFECTS DESIGNER) Creatinine POC 0.9 0.7 - 1.3 mg/dL [facility] Blood specimen (specimen) 05/01/2018 9:07 AM SPECIAL EFFECTS DESIGNER 05/01/2018 9:07 AM SPECIAL EFFECTS DESIGNER Narrative [facility] - 05/01/2018 9:28 AM SPECIAL EFFECTS DESIGNER us Jef Walton MD POINT OF CARE TEST ORDERABLES Final Result [facility] Department [place] [address] documented in this encounter Visit Diagnoses Diagnosis Asymmetric septal hypertrophy documented in this encounter Care Teams Cytogenetic Technologist Relationship Specialty Start Date End Date Etelvina Del Cid MD [address] [address] PCP - General 08/14/16 03/10/19 documented as of this encounter
--- OUTSIDE RECORDS SUMMARY | 2024-05-10 17:16 | XMS_ITS | Encounter Summary ---
Author Organization [facility] Healthcare Address [address] [place] [address] Care Team Providers Care Boiler Washer Name Role Phone Jann Burrows MD Primary Care Provider [phone] Encounter Details Date Type Department Care Team (Late st Contact Info) Description 08/03/2019 Patient Self-Triage [facility] HealthCare/ Physicians [address] [place] [address] Mychart, Generic Provider [address] [place] [address] Social History Tobacco Use Types Packs/Day Years Used Date Smoking Tobacco: Never Smokeless Tobacco: Never Alcohol Use Standard Drinks/Week Comments Yes 24 (1 standard drink = 0.6 oz pu re alcohol) CAGE negative. Case per week. 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
--- OUTSIDE RECORDS SUMMARY | 2024-05-10 17:16 | XMS_ITS | Encounter Summary ---
Author Organization [facility] Healthcare Address [address] [place] [address] Care Team Providers Care Insurance Sales Manager Name Role Phone Jann Burrows MD Primary Care Provider [phone] Reason for Visit * Reason Onset Date Comments Follow-up 03/13/2019 Encounter Details Date Type Department Care Team (Late st Contact Info) Description 03/13/2019 Telephone [facility] Medicine [facility] [address] [facility] [address] [place] [address] Jann Burrows MD [address] [facility] [address] [place] [address] Follow-up Social History Tobacco Use Types Packs/Day Years Used Date Smoking Tobacco: Never Smokeless Tobacco: Never Alcohol Use Standard Drinks/Week Comments Yes 24 (1 standard drink = 0.6 oz pu re alcohol) CAGE negative. Case per week. 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 Burrows, Pharmacy calling in regards to pen needle, diabetic (BD ULTRA-FINE RADHA PEN NEEDLE) 32 gauge x 5/32 needle, the directions match test strips or lancets but not pen needles. Please follow up with pharmacy. Pharm contact: [phone] Jose Campoverde [phone] RETE BUCKET HOOKER documented in this encounter Plan of Treatment Not on file documented as of this encounter Visit Diagnoses Not on filedocumented in this encounter Care Teams Insurance Sales Manager Relationship Specialty Start Date End Date Jann Burrows MD [address] [facility] [address] [place] [address] PCP - General Hematology 03/13/19 10/28/21 documented as of this encounter
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
--- OUTSIDE RECORDS SUMMARY | 2024-05-10 17:16 | XMS_ITS | Encounter Summary ---
Author Organization [facility] Healthcare Address [address] [place] [address] Care Team Providers Care Animal Caregiver Name Role Phone Etelvina Del Cid MD Primary Care Provider + Reason for Referral * Consultation (Routine) - Closed Specialty Diagnoses / Procedures Referred By Contac t Referred To Contact Endocrinology Diagnoses Diabetic ketoacidosis without coma associated with other specified diabetes mellitus (HCC) Peter Styles Jr., MD Phone: tel: fax: [facility] (All Locations) Referral ID Status Reason Start Date Expiration Date V isits Requested Visits Authorized [id number] Closed Specialty Services Required 03/08/2019 05/05/2019 4 4 Question Answer Please select the performing region: [facility] (All Locations) [[id number]] # of visits: 1 Comments Admitted with DKA. No previous diagnosis of DM. [employer]CEMENT OFFICER Reason for Visit * Reason Comments Chest Pain Shortness of Breath Encounter Details Date Type Department Care Team (Latest Contact Info) Description 03/02/2019 6:00 PM CDT - 03/08/2019 10:32 AM ANIMAL [employer]CEMENT OFFICER Hospital Encounter [facility] [address] [place] [address] Kenroy Farr MD [address] [place] [address] Peter Styles Jr., MD [address] [place] [address] Mari Rick MD [address] [place] [address] Nita Palacios MD [address] [place] [address] Diabetic ketoacidosis without coma associated with type 2 diabetes mellitus (CMS/HCC) (Primary Dx); New onset type 2 diabetes mellitus (CMS/HCC); Diabetic ketoacidosis without coma associated with other [...] file Legal Sex Male 5:01 AM ANIM[employer]CEMENT OFFICER Gender Identity Male 12/18/2017 12:38 PM CDT Sexual Orientation Not on file documented as of this encounter Last Filed Vital Signs Vital Sign Reading Time Taken Comments Blood Pressure 122/72 03/08/2019 8:46 AM ANIM[employer]CEMENT OFFICER Pulse 73 03/08/2019 3:35 AM ANIM[employer] E[employer]CEMENT OFFICER Temperature 36.5 ??C (97.7 ??F) 03/08/2019 3:35 AM CS T Respiratory Rate 18 03/08/2019 3:35 AM ANIM[employer]CEMENT OFFICER Oxygen Saturation 96% 03/08/2019 3:35 AM ANIM[employer]CEMENT OFFICER Inhaled Oxygen Concentration - - Weight 207.2 kg (456 lb 11.2 oz) 03/04/2019 2:15 AM CDT Height 200.7 cm (6' 7.02 ) 03/04/2019 2:15 AM CD T Body Mass Index 51.43 03/04/2019 2:15 AM CDT documented in this encounter Discharge Diagnoses Diagnosis Type 2 diabetes mellitus with ketoacidosis without coma (HCC) - TYPE 2 DIABETES MELLITUS WITH KETOACIDOSIS WITHOUT COMA Body mass index (BMI) 50.0-59.9, adult - BODY MASS INDEX (BMI) 50.0-59.9, ADULT Essential (primary) hypertension - ESSENTIAL (PRIMARY) HYPERTENSION Unspecified essential hypertension Morbid (severe) obesity due to excess calories (HCC) - MORBID (SEVERE) OBESITY DUE TO EXCESS CALORIES Family history of diabetes mellitus - FAMILY HISTORY OF DIABETES MELLITUS documented in this encounter Discharge Summaries * Jann Burrows MD - 03/08/2019 8:15 AM CST Inpatient Discharge Summary BRIEF OVERVIEW Admitting Provider: Peter Styles MD Discharge Provider: Peter Styles MD Primary Care Physician at Discharge: Etelvina Del Cid MD [phone] Admission Date: 03/02/2019 Discharge Date: 03/08/2019 Admission Location: [facility] Primary Discharge Diagnosis: Diabetic acidosis and new diagnosis of Diabetes Mellitus Secondary Discharge Diagnosis: Essential hypertension Diabetic ketoacidosis (CMS/HCC) DETAILS OF HOSPITAL STAY Presenting Problem/History of Present Illness: Patient admitted on 03/03/19. Geraldo Velez is a 23 y.o. male with PMH of HTN, obesity (BMI > 50), metabolic syndrome, and hx asymmetric septal hypertrophy (last TTE 02/13/2016, follows with Dr. Walton) presenting to theED 03/02/19 with 1 week duration of bilateral chest tightness,dyspnea, polyuria, and polydipsia in the setting of tachycardia found to be in diabetic ketoacidosis (BG 591, serum ketones 3.4, AG 22). Admitted to [facility] 03/03/19. At arrival to ED, chest pain was 8/10. ?? Of note patient does not have a formal diagnosis of diabetes mellitus, but per previous cardiology note (07/2018) previously diagnosed with metabolic syndrome and on metformin. ?? At time of admission to [facility], patient states his chest pain and dyspnea have resolved. He denies any complaints or acute symptoms. He states compliance with all medications at home. Home diet consists of red meats, fruits, and vegetables. He states he exercises twice weekly (1.5 hrs, cardio/weight lifting). He denies any previous similar episodes or precipitating. No alleviating or aggravating episodes. Patient does endorse associated vision changes, which he describes as 1 week duration during which his vision will intermittently go in and out . ?? In the ED: troponin was negative x2, EKG normal sinus rhythm with undetermined age inferior NC, pro-BNP negative, and chest pain spontaneously resolved. Diabetic ketoacidosis was treated with IV insulin, IV fluids, and PRN electrolyte repletion. Patient was given lantus 40mg at 0430 03/03/19 and ins ulin gtt was stopped at 0630 03/03/19. At time of admission to [facility], AG 12, serum ketones .8, and BG 193. Additional notable labs include: hemolyzed HFTs, UA with3+ glucose/protein/ketones, without leukocyte esterase/nitrites/WBCs/RBCs, CXR without PNA, and a negative influenza/RSV. At time of admission to [facility], patient is hemodynamically stable with BP 141/79 (following Coreg 25mg). ?? ROS: Positive: vision changes Negative: fevers/chills, abdominal pain, polydipsia, polyria, hematuria, dysuria, weight changes (gain/loss), changes in bowel habits, chest pain, dyspnea Hospital Course: Mr. Velez is a 23 yo M with PMH of HTN, morbid obesity (BMI 51.43), asymmetric septal hypertrophy (last TTE 02/2016) admitted for Diabetic ketoacidosis. Of note, patient had no formal diagnosis ofDiabetes Mellitus. In the [facility] ED, patient was treated with IVF, IV insulin gtt, and electrolyte repl acement resulting in prompt closure of AG. Of note, HbA1c was 9.3 during this admission. Patient was started on an insulin regimen for Diabetes Mellitus. The regimen was initially weight based, and titrated up slowly over the course of the admission based upon serial POCT glucoses. At discharge, patient's insulin regimen was: 80U U500 TID 30 minutes prior to meals, 10 lispro TID with meals, and metformin 500mg BID. On this regimen, patient's blood sugars ranged between 101- 165, but will likely require further optimization as an outpatient. Patient was seen by soaping department supervisor andnutrition to educate the patient about carbohydrate consistent diet, weight loss, glucometer use, and insulin pens. The work-up to determine which type of DM patient has included Anti-DARREN ab, Insulingrowth factor 1 level (to assess for acromegaly) and anti- insulin ab, which are pending at discharge. Following discharge, patient will establish care [facility]. He was also referred to Endocrinology at discharge. Lipid panel during hospitalization notable for TG 1,274 and cholesterol 206. Patient was started onLipitor 20mg qday. Urine albumin: creatinine ratio was 59, and patient was started on lisinopril 5mg qday. Summary: Insulin regimen: 80U U500 TID meals, 10 lispro TID meals, 500mg metformin BID Medication changes: Lipitor 20mg qday, lisinopril 5mg qday Consider repeat fasting lipid panel Active Issues Requiring Follow-up: - Anti-DARREN, IGF-1, and Anti- insulin ab to determine type of Diabetes Mellitus and assess for acromegaly - Establish care with PCP - Establish care with Endocrinology - Optimization of insulin regimen Test Results Pending at Discharge: Order Current Status POCT glucose Collected (03/05/19 6121) Glutamic acid decarboxylase In process Insulin antibody In process Operative Procedures Performed: N/A Other Procedures: N/A Pertinent Test Results: - DKA at admission: AG 22, BG 591, Ketones 3.4 (resolved during admission) - HbA1c: 5.8 (2017). 9.3 (02/2019). - Lipid panel (non-fasting): TG 1274, Cholesterol 206 - BMI 51.43 - At discharge: BG 101- 205. No symptoms of relative hypoglycemia. Discharge Details Physical Exam at Discharge: Discharge Condition: fair Pulse: 73 Resp: 18 BP: 135/75 Temp: 36.5 ??C (97.7 ??F) Weight: (!) 207.2 kg (456 lb 11.2 oz) Pertinent Exam Findings at Discharge: Constitutional:??Well developed. Well nourished. Alert and cooperative. In no acute distress. Morbidly obese Head:??Normocephalic. Atraumatic. Eyes:??Anicteric sclera. Clear conjunctiva. ??EOMI. Vision grossly intact. Ears:??Hearing grossly intact. Nose:??No nasal discharge. Neck:??Limited 2/2 body habitus Cardiac:??Normal rate, regular rhythm. Normal S1/S2. No murmurs, rubs, or gallops. Peripheral pulses 2+. No peripheral edema. Limited 2/2 body habitus Resp:??Clear to auscultation bilaterally. No wheezes, rhonchi, or rales. Normal work of breathing. Limited 2/2 body habitus Abdomen:??Soft. Non- distended. Non- tender. Positive bowel sounds x4 quadrants. No guarding or rebound tenderness. Psychiatric:??Alert and oriented to person, place, and time. Appropriate affect and behavior. Skin:??Warm. Dry. No rashes, ecchymoses, or lesions. Grossly intact. Extremities:??No sigificant deformity or joint abnormality. No edema. Peripheral pulses 2+. No varicosities. Neuro:??No focal neurologic deficits?? Discharge Disposition: Discharge to home or self care Code Status at Discharge: Full Code Discharge Instructions: Activity Instructions Discharge activity: Resume normal activity Diet Instructions Adult Discharge Diet Diet Type: Low fat intake Other (specify) Explanatory Comment: Low fat, low cholesterol, carbohydrate consistent diet Other Instructions Call provider for: Please be cautious about low blood sugar episodes (called hypoglycemia), which may present as chestpalpitations, lightheadedness, dizziness, sweating, nausea. Call provider for: Temperature -Temperature greater than [...] headache, visual disturbances, weakness and speech changes A hospital follow-up appointment has been scheduled for you on 03/13/2019 at 11:15 am at the [facility] ([facility]). Discharge Medications: Current Medications TAKE these medications atorvastatin 20 mg tablet Commonly known as: LIPITOR Take 1 tablet (20 mg total) by mouth daily blood glucose diagnostic strip Commonly known as: ONETOUCH ULTRA TEST Test daily before all meals/snacks and once before bedtime. blood-glucose meter kit 1 kit once for 1 dose Patient needs in room for diabetes education carvedilol 25 mg tablet Commonly known as: COREG Take 1 tablet (25 mg total) by mouth 2 (two) times a day with meals indapamide 2.5 mg tablet Commonly known as: LOZOL Take 1 tablet (2.5 mg total) by mouth every morning insulin lispro 100 unit/mL injection Commonly known as: HumaLOG Inject 10 Units under the skin 3 (three) times a day with meals insulin regular U-500 500 unit/mL CONCENTRATED injection Commonly known as: HumuLIN R U-500 Inject 16 unit marking on U-100 syringe (80 Units total) under the skin 3 (three) times a day with meals lancets [facility] Patient needs in room for diabetes education lisinopril 5 mg tablet Commonly known as: PRINIVIL,ZESTRIL Take 1 tablet (5 mg total) by mouth daily metFORMIN 500 mg tablet Commonly known as: GLUCOPHAGE Take 1 tablet (500 mg total) by mouth 2 (two) times a day with meals Outpatient Follow-Up: Future Appointments Date Time Provider Department Center 03/13/2019 11:[address] [facility] Alfonso, AMB RES [facility] 03/18/2019 3:30 PM Jef Walton MD [facility] Cardiology Cosigned by Peter Styles MD at 03/09/2019 6:43 AM ANIM[employer] ENFORCEMENT OFFICER [employer]CEMENT OFFICER [employer] E[employer]ORCEMENT OFFICER documented in this encounter Discharge Instructions * Discharge Instructions* Jann Burrows MD - 03/08/2019 8:04 AM ANIM[employer] ENFORCEMENT OFFICER Mr. Velez, you were admitted to the hospital for diabetic ketoacidosis and new diagnosis of Diabetes Mellitus. Following discharge, we want you to be seen by a primary care doctor and an Chemical Process Operator. You have an appointment with a primary care doctor in the [facility] on 03/13/19 (phone number # [phone]). In regards to the Endocrinology appointment, we will provide you a referral at discharge. The Endocrinology office should call you to schedule an appointment, but if they do not, please bring it to the attention of your primary care doctor. Of note you also have an appointment scheduled with Dr. Salinas on 03/18/19. Please make sure you eat 3 times daily and strictly stick to a carbohydrate consistent diet as you were educated to do so by nutrition and soaping department supervisor. You will be discharged with a glucometer,and we would like you to check and log your blood sugars daily. Ideally once upon waking up, prior to lunch, and 2 hours after lunch. We recommend you also check and log your blood sugar if you develop any of the following signs: heart palpitations, sensations of heart racing, sweating, lightheaded-ness, or dizziness. As we discussed, these symptoms are concerning for episodes of low blood sugars(known as hypoglycemia). You are being discharged on the following insulin regimen: 1. Metformin 500mg twice daily 2. 80U U500 insulin three times a day. Please take this 30 minutes prior to breakfast, lunch, and dinner. Also, ensure that you do no miss a meal following administration of the U500 insuiln 3. 10U lispro three times a day with meals. Please take this after you eat your meal. Additional medications that were add during this admission include: 4. Lipitor (atrovastatin) 20mg daily 5. Linsinopril 5mg qday Lastly, a few tests to determine the type of diabetes mellitus (type I or type II) are still not resulted at the time of discharge. Either your primary care doctor or forge press operator can discuss these results with you. [employer]ORCEMENT OFFICER * Discharge Instr - Other Orders* Megan Cabrera RN - 03/06/2019 3:30 PM CDT A hospital follow-up appointment has been scheduled for you on 03/13/2019 at 11:15 am at the [facility] ([facility]). documented in this encounter Medications at Time of Discharge glucagon 1 mg kit Inject 1 mL (1 mg total) into the muscle as instructed daily as needed (Episodes of Hypolgycemia in setting insulin administration) 1 kit 1 03/08/2019 9 atorvastatin (LIPITOR) 20 mg tablet Take 1 tablet (20 mg total) by mouth daily 30 tablet 11 03/08/2019 9 blood glucose diagnostic (ONETOUCH ULTRA TEST) strip Test daily before all meals/snacks and once before bedtime. 100 each 11 03/05/2019 9 blood-glucose meter kit 1 kit once for 1 dose Patient needs in room for diabetes education 1 each 03/05/2019 2 carvedilol (COREG) 25 mg tablet Take 1 tablet (25 mg total) by mouth 2 (two) times a day with meals 60 tablet 11 01/27/2019 0 indapamide (LOZOL) 2.5 mg tablet Take 1 tablet (2.5 mg total) by mouth every morning 30 tablet 11 07/23/2018 0 insulin lispro (HumaLOG) 100 unit/mL injection Inject 10 Units under the skin 3 (three) times a day with meals 9 mL 03/08/2019 9 insulin regular U-500 (HumuLIN R U-500) 500 unit/mL CONCENTRATED injectionIndicati ons:Diabetes Mellitus with Severe Insulin Resistance Inject 16 unit marking on U-100 syringe (80 Units total) under the skin 3 (three) times a day with meals 14.4 mL 03/08/2019 9 [facility] Patient needs in room for diabetes education 100 each 11 03/05/2019 9 lisinopril (PRINIVIL,ZESTRIL ) 5 mg tablet Take 1 tablet (5 mg total) by mouth daily 30 tablet 11 03/08/2019 9 metFORMIN (GLUCOPHAGE) 500 mg tablet Take 1 tablet (500 mg total) by mouth 2 (two) times a day with meals 60 tablet 11 03/08/2019 9 documented as of this encounter Ordered Prescriptions Prescription Sig Dispense Quantity Refills Last Filled Start Date End Date glucagon 1 mg kit Inject 1 mL (1 mg total) into the muscle as instructed daily as needed (Episodes of Hypolgycemia in setting insulin administration) 1 kit 1 03/08/2019 9 insulin lispro (HumaLOG) 100 unit/mL injection Inject 10 Units under the skin 3 (three) times a day with meals 9 mL 03/08/2019 9 lisinopril (PRINIVIL,ZESTRIL ) 5 mg tablet Take 1 tablet (5 mg total) by mouth daily 30 tablet 11 03/08/2019 9 insulin regular U-500 (HumuLIN R U-500) 500 unit/mL CONCENTRATED injectionIndicati ons:Diabetes Mellitus with Severe Insulin Resistance Inject 16 unit marking on U-100 syringe (80 Units total) under the skin 3 (three) times a day with meals 14.4 mL 03/08/2019 9 atorvastatin (LIPITOR) 20 mg tablet Take 1 tablet (20 mg total) by mouth daily 30 tablet 11 03/08/2019 9 metFORMIN (GLUCOPHAGE) 500 mg tablet Take 1 tablet (500 mg total) by mouth 2 (two) times a day with meals 60 tablet 11 03/08/2019 9 blood glucose diagnostic (ONETOUCH ULTRA TEST) strip Test daily before all meals/snacks and once before bedtime. 100 each 11 03/05/2019 9 lancets misc Patient needs in room for diabetes education 100 each 11 03/05/2019 9 blood-glucose meter kit 1 kit once for 1 dose Patient needs in room for diabetes education 1 each 03/05/2019 2 documented in this encounter Discharge Disposition Disposition Code Departure Means Destination Discharge to home or self care documented in this encounter Progress Notes * Jann Burrows MD - 03/08/2019 8:24 AM CST General Note Name: Geraldo Velez Today: March 08, 2019 : 1995 Age: 23 y.o. male Admit: 03/02/2019 Unit: [id number] Contact: Extended Emergency Contact Information Primary Emergency Contact: Leatha Veelz [facility] Relation: Mother Service: Medical Primary care physician: Etelvina Del Cid MD Subjective No acute events overnight. Denies new complaints overnight. BG range between 101-165 overnight. Inpatient Medicines atorvastatin, 20 mg, oral, Daily carvedilol, 25 mg, oral, BID enoxaparin, 40 mg, subcutaneous, Q12H MICHELLE hydroCHLOROthiazide, 12.5 mg, oral, Daily insulin lispro, 1-3 Units, subcutaneous, Nightly insulin lispro, 1-5 Units, subcutaneous, TID with meals insulin lispro, 10 Units, subcutaneous, TID with meals insulin regular U-500, 80 Units, subcutaneous, TID with meals lisinopril, 5 mg, oral, Daily metFORMIN, 500 mg, oral, BID with meals (bkfst, dinner) potassium chloride ER, 40 mEq, oral, Once sodium chloride 0.9%, 0.5-20 mL, intra-catheter, Q8H MICHELLE ??? acetaminophen ??? benzonatate ??? dextrose OR dextrose ??? glucagon ??? ondansetron ODT OR ondansetron ??? ramelteon ??? senna-docusate ??? sodium chloride 0.9% Vitals BP Temp Pulse Resp SpO2 Wt Readings from Last 3 Encounters: 03/04/19 (!) 207.2 kg (456 lb 11.2 oz) 07/23/18 (!) 210.7 kg (464 lb 9.6 oz) 05/01/18 (!) 210.9 kg (465 lb) Arrival Vitals Temp 03/02/19 1746 36.7 ??C (98.1 ??F) Pulse 03/02/19 1746 99 Resp 03/02/19 1746 26 BP 03/02/19 1746 169/99 SpO2 03/02/19 1746 98 % Temp src 03/02/19 1746 Oral Heart Rate Source 03/02/19 2330 Monitor Patient Position 03/04/19 0215 Lying BP Location 03/04/19 0215 Left arm FiO2 (%) -- Vitals: 03/07/19 2204 03/08/19 0300 03/08/19 0335 BP: 135/75 135/75 Pulse: 85 73 73 Resp: 18 18 Temp: 36.5 ??C (97.7 ??F) 36.5 ??C (97.7 ??F) SpO2: 96% 96% No data found. Intake/Output Summary (Last 24 hours) at 03/08/2019 0824 Last data filed at 03/07/2019 1040 Gross per 24 hour Intake 550 ml Output -- Net 550 ml Physical Exam Constitutional:??Well developed. Well nourished. Alert and cooperative. In no acute distress. Morbidly obese Head:??Normocephalic. Atraumatic. Eyes:??Anicteric sclera. Clear conjunctiva. ??EOMI. Vision grossly intact. Ears:??Hearing grossly intact. Nose:??No nasal discharge. Neck:??Limited 2/2 body habitus Cardiac:??Normal rate, regular rhythm. Normal S1/S2. No murmurs, rubs, or gallops. Peripheral pulses 2+. No peripheral edema. Limited 2/2 body habitus Resp:??Clear to auscultation bilaterally. No wheezes, rhonchi, or rales. Normal work of breathing. Limited 2/2 body habitus Abdomen:??Soft. Non- distended. Non- tender. Positive bowel sounds x4 quadrants. No guarding or rebound tenderness. Psychiatric:??Alert and oriented to person, place, and time. Appropriate affect and behavior. Skin:??Warm. Dry. No rashes, ecchymoses, or lesions. Grossly intact. Extremities:??No sigificant deformity or joint abnormality. No edema. Peripheral pulses 2+. No varicosities. Neuro:??No focal neurologic deficits?? Labs Recent Labs Lab Units 03/08/19 0132 03/07/1912203/05/19 2351 WBC K/cumm 7.8 6.6 5.4 HEMOGLOBIN g/dL 15.3 15.6 15.6 HEMATOCRIT % 42.4 41.9 42.2 PLATELETS K/cumm 315 311 303 Recent Labs Lab Units 03/08/19 0745 03/08/19 0332 03/08/19 0132 03/07/19 01203/05/19 2351 SODIUM mmol/L -- -- 137 -- 137 -- 132* POTASSIUM PLASMA mmol/L -- -- 3.2* -- 3.1* -- 3.7 CHLORIDE mmol/L -- -- 102 -- 101 -- 100 CO2 mmol/L -- -- 23 -- 25 -- 21* BUN SERUM mg/dL -- -- 13 -- 10 -- 12 CREATININE mg/dL -- -- 0.84 -- 0.75* -- 0.71* GLUCOSE mg/dL -- -- 83 -- 109 -- 289* POC GLUCOSE MONITOR mg/dL 132 101 -- < > -- < > -- CALCIUM mg/dL -- -- 9.4 -- 9.6 -- 9.5 < > = values in this interval not displayed. Lab Results Component Value Date ALT 85 (H) 03/04/2019 AST 53 (H) 03/04/2019 ALKPHOS 90 03/04/2019 BILITOT 0.4 03/04/2019 Assessment and Plan of Care Active Problems: Essential hypertension Diabetic ketoacidosis (CMS/HCC) Diabetic ketoacidosis (CMS/HCC) Assessment & Plan - At admission: BG 591, AG 22, [...] - Daily BMPs. Replete as needed. - iron handler consult placed. - HbA1c 5.8 in 09/2017. [...] will require referral to endocrinology at discharge. Essential hypertension Assessment & Plan - Home regimen: Coreg 25mg BID and [...] help HTN. - HDS. CTM vital signs. Jann Burrows MD Internal Medicine, PGY-1 Cosigned by Peter Styles MD at 03/09/2019 6:41 AM ANIMAL [employer]ARK CODE ENFORCEMENT OFFICER [employer] CODE ENFORCEMENT OFFICER [employer] CODE ENFORCEMENT OFFICER Associated attestation - Peter Styles Jr., MD - 03/09/2019 6:41 AM ANIMAL [employer] ENFORCEMENT OFFICER I have seen and examined the patient on 03/08/2019. I agree with the findings and plan of care as documented in the resident's/fellow's note. * Jann Burrows MD - 03/07/2019 9:57 AM CDT General Note Name: Geraldo Velez Today: March 07, 2019 : 1995 Age: 23 y.o. male Admit: 03/02/2019 Unit: [id number] Contact: Extended Emergency Contact Information Primary Emergency Contact: Leatha Velez [facility] Relation: Mother Service: Medical Primary care physician: Etelvina Del Cid MD Subjective No acute events overnight. Denies new complaints overnight. BG beginning to normalize. Inpatient Medicines carvedilol, 25 mg, oral, BID enoxaparin, 40 mg, subcutaneous, Q12H MICHELLE hydroCHLOROthiazide, 12.5 mg, oral, Daily insulin lispro, 1-3 Units, subcutaneous, Nightly insulin lispro, 1-5 Units, subcutaneous, TID with meals insulin regular U-500, 80 Units, subcutaneous, TID with meals lisinopril, 5 mg, oral, Daily metFORMIN, 500 mg, oral, BID with meals (bkfst, dinner) sodium chloride 0.9%, 0.5-20 mL, intra-catheter, Q8H MICHELLE ??? acetaminophen ??? benzonatate ??? dextrose OR dextrose ??? glucagon ??? ondansetron ODT OR ondansetron ??? ramelteon ??? senna-docusate ??? sodium chloride 0.9% Vitals BP Temp Pulse Resp SpO2 Wt Readings from Last 3 Encounters: 03/04/19 (!) 207.2 kg (456 lb 11.2 oz) 07/23/18 (!) 210.7 kg (464 lb 9.6 oz) 05/01/18 (!) 210.9 kg (465 lb) Arrival Vitals Temp 03/02/19 1746 36.7 ??C (98.1 ??F) Pulse 03/02/19 1746 99 Resp 03/02/19 1746 26 BP 03/02/19 1746 169/99 SpO2 03/02/19 1746 98 % Temp src 03/02/19 1746 Oral Heart Rate Source 03/02/19 2330 Monitor Patient Position 03/04/19 0215 Lying BP Location 03/04/19 0215 Left arm FiO2 (%) -- Vitals: 03/06/19 2036 03/07/19 0518 03/07/19 0853 BP: 140/86 111/53 130/83 Pulse: 84 78 Resp: 16 18 Temp: 36.5 ??C (97.7 ??F) 36.7 ??C (98.1 ??F) SpO2: 99% 97% No data found. Intake/Output Summary (Last 24 hours) at 03/07/2019 0957 Last data filed at 03/06/2019 2139 Gross per 24 hour Intake 15 ml Output -- Net 15 ml Physical Exam Constitutional:??Well developed. Well nourished. Alert and cooperative. In no acute distress. Morbidly obese Head:??Normocephalic. Atraumatic. Eyes:??Anicteric sclera. Clear conjunctiva. ??EOMI. Vision grossly intact. Ears:??Hearing grossly intact. Nose:??No nasal discharge. Neck:??Limited 2/2 body habitus Cardiac:??Normal rate, regular rhythm. Normal S1/S2. No murmurs, rubs, or gallops. Peripheral pulses 2+. No peripheral edema. Limited 2/2 body habitus Resp:??Clear to auscultation bilaterally. No wheezes, rhonchi, or rales. Normal work of breathing. Limited 2/2 body habitus Abdomen:??Soft. Non- distended. Non- tender. Positive bowel sounds x4 quadrants. No guarding or rebound tenderness. Psychiatric:??Alert and oriented to person, place, and time. Appropriate affect and behavior. Skin:??Warm. Dry. No rashes, ecchymoses, or lesions. Grossly intact. Extremities:??No sigificant deformity or joint abnormality. No edema. Peripheral pulses 2+. No varicosities. Neuro:??No focal neurologic deficits?? Labs Recent Labs Lab Units 03/07/1912203/05/19235003/05/19 0537 WBC K/cumm 6.6 5.4 4.8 HEMOGLOBIN g/dL 15.6 15.6 14.7 HEMATOCRIT % 41.9 42.2 40.2 PLATELETS K/cumm 311 303 281 Recent Labs Lab Units 03/07/1982403/07/1912203/06/19203803/05/19235003/05/19 0537 SODIUM mmol/L -- 137 -- -- 132* -- 135 POTASSIUM PLASMA mmol/L -- 3.1* -- -- 3.7 -- 3.5 CHLORIDE mmol/L -- 101 -- -- 100 -- 102 CO2 mmol/L -- 25 -- -- 21* -- 20* BUN SERUM mg/dL -- 10 -- -- 12 -- 10 CREATININE mg/dL -- 0.75* -- -- 0.71* -- 0.68* GLUCOSE mg/dL -- 109 -- -- 289* -- 275* POC GLUCOSE MONITOR mg/dL 145 -- 232* < > -- < > -- CALCIUM mg/dL -- 9.6 -- -- 9.5 -- 9.3 < > = values in this interval not displayed. Lab Results Component Value Date ALT 85 (H) 03/04/2019 AST 53 (H) 03/04/2019 ALKPHOS 90 03/04/2019 BILITOT 0.4 03/04/2019 Assessment and Plan of Care Active Problems: Essential hypertension Diabetic ketoacidosis (CMS/HCC) Diabetic ketoacidosis (CMS/HCC) Assessment & Plan - At admission: BG 591, AG 22, [...] 80U U500 TID 30 minutes prior to meals and mid dose SSI - POCT glucose q4h - Carb consistent, low fat, low cholesterol - Daily BMPs. Replete as needed. - iron handler consult placed. - HbA1c 5.8 in 09/2017. 9.3 03/03/19 - Last lipid panel 09/2017. Lipid panel 03/04/19: TG 1274, LDL 39, HDL 17, Cholesterol 206. Unable to calculate ASCVD given age. Patient would benefit from outpatient, fasting repeat once BG normalized. Lipitor 10mg qday 03/07/19. - Anti- DARREN antibody pending to determine Type I v. Type II DM - Urine albumin creatinine ratio 59. Given hypertensive and age, will start lisinopril 5mg and continue at discharge. - Patient will require referral to endocrinology at discharge. Essential hypertension Assessment & Plan - Home regimen: Coreg 25mg BID and Indapamide 2.5mg qday - Per previous cardiology notes, HTN not well controlled on home regimen - Continue Coreg 25mg BID and started HCTZ 12.5mg qday instead of Indaparmide 2.5mg qday. - Given albumin: cr ratio, started lisinopril 5mg qday 03/04/19, which should also help HTN. - HDS. CTM vital signs. Jann Burrows MD Internal Medicine, PGY-1 Cosigned by Peter Styles MD at 03/07/2019 8:03 PM CDT Associated attestation - Peter Styles Jr., MD - 03/07/2019 8:03 PM CDT I have seen and examined the patient on 03/07/19. I agree with the findings and plan of care as documented in the resident's/fellow's note. * Jann Burrows MD - 03/06/2019 12:13 PM CDT General Note Name: Geraldo Velez Today: March 06, 2019 : 1995 Age: 23 y.o. male Admit: 03/02/2019 Unit: [id number] Contact: Extended Emergency Contact Information Primary Emergency Contact: Leatha Velez [facility] Relation: Mother Service: Medical Primary care physician: Etelvina Del Cid MD Subjective No acute events overnight. Denies new complaints overnight. BG remains persistently elevated, will require further adjustment to insulin regimen. Inpatient Medicines carvedilol, 25 mg, oral, BID enoxaparin, 40 mg, subcutaneous, Q12H MICHELLE hydroCHLOROthiazide, 12.5 mg, oral, Daily insulin glargine, 15 Units, subcutaneous, Once insulin lispro, 1-3 Units, subcutaneous, Nightly insulin lispro, 1-5 Units, subcutaneous, TID with meals insulin lispro, 15 Units, subcutaneous, TID with meals insulin regular U-500, 60 Units, subcutaneous, Once insulin regular U-500, 80 Units, subcutaneous, TID with meals lisinopril, 5 mg, oral, Daily metFORMIN, 500 mg, oral, BID with meals (bkfst, dinner) sodium chloride 0.9%, 0.5-20 mL, intra-catheter, Q8H MICHELLE ??? acetaminophen ??? benzonatate ??? dextrose OR dextrose ??? glucagon ??? ondansetron ODT OR ondansetron ??? ramelteon ??? senna-docusate ??? sodium chloride 0.9% Vitals BP Temp Pulse Resp SpO2 Wt Readings from Last 3 Encounters: 03/04/19 (!) 207.2 kg (456 lb 11.2 oz) 07/23/18 (!) 210.7 kg (464 lb 9.6 oz) 05/01/18 (!) 210.9 kg (465 lb) Arrival Vitals Temp 03/02/19 1746 36.7 ??C (98.1 ??F) Pulse 03/02/19 1746 99 Resp 03/02/19 1746 26 BP 03/02/19 1746 169/99 SpO2 03/02/19 1746 98 % Temp src 03/02/19 1746 Oral Heart Rate Source 03/02/19 2330 Monitor Patient Position 03/04/19 0215 Lying BP Location 03/04/19 0215 Left arm FiO2 (%) -- Vitals: 03/06/19 0503 03/06/19 0505 03/06/19 0700 BP: 139/70 139/70 124/84 Pulse: 74 72 80 Resp: 18 18 Temp: 36.4 ??C (97.5 ??F) 36.4 ??C (97.5 ??F) 37.1 ??C (98.8 ??F) SpO2: 99% 99% 97% No data found. Intake/Output Summary (Last 24 hours) at 03/06/2019 1213 Last data filed at 03/05/2019 1800 Gross per 24 hour Intake 500 ml Output -- Net 500 ml Physical Exam Constitutional:??Well developed. Well nourished. Alert and cooperative. In no acute distress. Morbidly obese Head:??Normocephalic. Atraumatic. Eyes:??Anicteric sclera. Clear conjunctiva. ??EOMI. Vision grossly intact. Ears:??Hearing grossly intact. Nose:??No nasal discharge. Neck:??Limited 2/2 body habitus Cardiac:??Normal rate, regular rhythm. Normal S1/S2. No murmurs, rubs, or gallops. Peripheral pulses 2+. No peripheral edema. Limited 2/2 body habitus Resp:??Clear to auscultation bilaterally. No wheezes, rhonchi, or rales. Normal work of breathing. Limited 2/2 body habitus Abdomen:??Soft. Non- distended. Non- tender. Positive bowel sounds x4 quadrants. No guarding or rebound tenderness. Psychiatric:??Alert and oriented to person, place, and time. Appropriate affect and behavior. Skin:??Warm. Dry. No rashes, ecchymoses, or lesions. Grossly intact. Extremities:??No sigificant deformity or joint abnormality. No edema. Peripheral pulses 2+. No varicosities. Neuro:??No focal neurologic deficits?? Labs Recent Labs Lab Units 03/05/19 23503/05/19 0537 03/02/19 1757 WBC K/cumm 5.4 4.8 8.0 HEMOGLOBIN g/dL 15.6 14.7 16.2 HEMATOCRIT % 42.2 40.2 42.3 PLATELETS K/cumm 303 281 380 Recent Labs Lab Units 03/06/19 0809 03/06/19 0250 03/06/19 0048 03/05/19235003/05/1937 03/04/19 0648 SODIUM mmol/L -- -- -- 132* -- 135 -- 134* POTASSIUM PLASMA mmol/L -- -- -- 3.7 -- 3.5 -- 3.9 CHLORIDE mmol/L -- -- -- 100 -- 102 -- 104 CO2 mmol/L -- -- -- 21* -- 20* -- 20* BUN SERUM mg/dL -- -- -- 12 -- 10 -- 10 CREATININE mg/dL -- -- -- 0.71* -- 0.68* -- 0.70* GLUCOSE mg/dL -- -- -- 289* -- 275* -- 319* POC GLUCOSE MONITOR mg/dL 277* 287* 281* -- < > -- < > -- CALCIUM mg/dL -- -- -- 9.5 -- 9.3 -- 8.8 < > = values in this interval not displayed. Lab Results Component Value Date ALT 85 (H) 03/04/2019 AST 53 (H) 03/04/2019 ALKPHOS 90 03/04/2019 BILITOT 0.4 03/04/2019 Assessment and Plan of Care Active Problems: Essential hypertension Diabetic ketoacidosis (CMS/HCC) Diabetic ketoacidosis (CMS/HCC) Assessment & Plan - At admission: BG 591, AG 22, [...] 80U U500 TID 30 minutes prior to meals and mid dose SSI - POCT glucose q4h - Carb consistent, low fat, low cholesterol - Daily BMPs. Replete as needed. - iron handler consult placed. - HbA1c 5.8 in 09/2017. 9.3 03/03/19 - Last lipid panel 09/2017. Lipid panel 03/04/19: TG 1274, LDL 39, HDL 17, Cholesterol 206. Unable to calculate ASCVD given age. Patient would benefit from outpatient, fasting repeat once BG normalized. Will start statin at discharge. - Anti- DARREN antibody pending to determine Type I v. Type II DM - Urine albumin creatinine ratio 59. Given hypertensive and age, will start lisinopril 5mg and continue at discharge. - Patient will require referral to endocrinology at discharge. Essential hypertension Assessment & Plan - Home regimen: Coreg 25mg BID and Indapamide 2.5mg qday - Per previous cardiology notes, HTN not well controlled on home regimen - Continue Coreg 25mg BID and started HCTZ 12.5mg qday instead of Indaparmide 2.5mg qday. - Given albumin: cr ratio, started lisinopril 5mg qday 03/04/19, which should also help HTN. - HDS. CTM vital signs. Jann Burrows MD Internal Medicine, PGY-1 Cosigned by Peter Styles MD at 03/06/2019 8:16 PM CDT Associated attestation - Peter Styles Jr., MD - 03/06/2019 8:16 PM CDT I have seen and examined the patient on 03/06/19. I agree with the findings and plan of care as documented in the resident's/fellow's note. * Altagracia Martines MD - 03/05/2019 1:52 PM CDT General Note Name: Geraldo Velez Today: March 05, 2019 : 1995 Age: 23 y.o. male Admit: 03/02/2019 Unit: [id number] Contact: Extended Emergency Contact Information Primary Emergency Contact: Leatha Velez [facility] Relation: Mother Service: Medical Primary care physician: Etelvina Del Cid MD Subjective No acute events overnight. Patient continues to have high blood sugars in the 's. No acute complaints this AM. Inpatient Medicines carvedilol, 25 mg, oral, BID enoxaparin, 40 mg, subcutaneous, Q12H MICHELLE hydroCHLOROthiazide, 12.5 mg, oral, Daily insulin glargine, 65 Units, subcutaneous, BID insulin lispro, 1-3 Units, subcutaneous, Nightly insulin lispro, 1-5 Units, subcutaneous, TID with meals insulin lispro, 10 Units, subcutaneous, TID with meals lisinopril, 5 mg, oral, Daily sodium chloride 0.9%, 0.5-20 mL, intra-catheter, Q8H MICHELLE ??? acetaminophen ??? benzonatate ??? dextrose OR dextrose ??? glucagon ??? influenza quadrivalent [id number] ??? ondansetron ODT OR ondansetron ??? ramelteon ??? senna-docusate ??? sodium chloride 0.9% Vitals BP Temp Pulse Resp SpO2 Wt Readings from Last 3 Encounters: 03/04/19 (!) 207.2 kg (456 lb 11.2 oz) 07/23/18 (!) 210.7 kg (464 lb 9.6 oz) 05/01/18 (!) 210.9 kg (465 lb) Arrival Vitals Temp 03/02/19 1746 36.7 ??C (98.1 ??F) Pulse 03/02/19 1746 99 Resp 03/02/19 1746 26 BP 03/02/19 1746 169/99 SpO2 03/02/19 1746 98 % Temp src 03/02/19 1746 Oral Heart Rate Source 03/02/19 2330 Monitor Patient Position 03/04/19 0215 Lying BP Location 03/04/19 0215 Left arm FiO2 (%) -- Vitals: 03/04/19 2245 03/05/19 0535 03/05/19 0845 BP: 137/81 142/83 139/76 Pulse: 90 82 88 Resp: Temp: 36.5 ??C (97.7 ??F) 36.4 ??C (97.5 ??F) SpO2: 99% 98% 97% No data found. Intake/Output Summary (Last 24 hours) at 03/05/2019 1353 Last data filed at 03/05/2019 0900 Gross per 24 hour Intake 300 ml Output -- Net 300 ml Physical Exam - Gen: AAOx4, NAD. - HEENT: PERRL, EOMI, no pallor, anicteric sclera - Neck: No JVD, midline trachea, no carotid artery bruit, no thyromegally, no LAD. - Chest: Normal breathing movements. - Resp: CTAB, no wheezing or crackles. - CV: RRR, no M/R/G, pulses 2+ bilaterally. - GI: NTND, no organomegaly, +BS - MSK: No lower ext. edema or swelling, normal passive and active movements. - Skin: No ulcers or skin rash noticed. - Neuro: CN II-XII intact, no focal deficits noticed. - Psych: Appropriate affect, fluent speech Labs Recent Labs Lab Units 03/05/19 0537 03/02/19 1757 WBC K/cumm 4.8 8.0 HEMOGLOBIN g/dL 14.7 16.2 HEMATOCRIT % 40.2 42.3 PLATELETS K/cumm 281 380 Recent Labs Lab Units 03/05/19 1156 03/05/19 0759 03/05/19 0537 03/04/19 0648 03/03/19 2207 SODIUM mmol/L -- -- 135 -- 134* -- 132* POTASSIUM PLASMA mmol/L -- -- 3.5 -- 3.9 -- 4.1 CHLORIDE mmol/L -- -- 102 -- 104 -- 100 CO2 mmol/L -- -- 20* -- 20* -- 20* BUN SERUM mg/dL -- -- 10 -- 10 -- 11 CREATININE mg/dL -- -- 0.68* -- 0.70* -- 0.72* GLUCOSE mg/dL -- -- 275* -- 319* -- 355* POC GLUCOSE MONITOR mg/dL 387* 293* -- < > -- < > -- CALCIUM mg/dL -- -- 9.3 -- 8.8 -- 8.8 < > = values in this interval not displayed. Lab Results Component Value Date ALT 85 (H) 03/04/2019 AST 53 (H) 03/04/2019 ALKPHOS 90 03/04/2019 BILITOT 0.4 03/04/2019 Assessment and Plan of Care Active Problems: Essential hypertension Diabetic ketoacidosis (CMS/HCC) Diabetic ketoacidosis (CMS/HCC) Assessment & Plan - At admission: BG 591, AG 22, [...] influenza negative for infection - Insulin regimen: 65U lantus BID, 10U lispro TID with meals, mid dose sliding scale - POCT glucose q4h - Carb consistent, low fat, low cholesterol - Daily BMPs. Replete as needed. - iron handler consult placed. - HbA1c 5.8 in 09/2017. 9.3 03/03/19 - Last lipid panel 09/2017. Lipid panel 03/04/19: TG 1274, LDL 39, HDL 17, Cholesterol 206. Unable to calculate ASCVD given age. Patient would benefit from outpatient, fasting repeat once BG normalized. - Anti- DARREN antibody pending to determine Type I v. Type II DM - Urine albumin creatinine ratio 59. Given hypertensive and age, will start lisinopril 5mg and continue at discharge. Essential hypertension Assessment & Plan - Home regimen: Coreg 25mg BID and Indapamide 2.5mg qday - Per previous cardiology notes, HTN not well controlled on home regimen - Continue Coreg 25mg BID and started HCTZ 12.5mg qday instead of Indaparmide 2.5mg qday. - HDS. CTM vital signs. Altagracia Martines MD PGY 3 internal medicine Med 2 green Cosigned by Peter Styles MD at 03/05/2019 3:15 PM CDT Associated attestation - Peter Styles Jr., MD - 03/05/2019 3:15 PM CDT I have seen and examined the patient on 03/05/19. I agree with the findings and plan of care as documented in the resident's/fellow's note. * Jann Burrows MD - 03/04/2019 2:52 PM CDT Internal Medicine Daily Progress Subjective Chief complaint: Patient is a 23 y.o. male admitted on 03/02/2019 6:00 PM for admitted for DKA and new diagnosis of diabetes mellitus (unknown type) Interval History: No events overnight. AG remains closed, but BG remain elevated between 200s - 300s. Will adjust scheduled long acting and meal time insulin regimen. Currently NPO, but transition to carbohydrate consistent diet once blood sugars normalize. Objective Scheduled Medications: carvedilol, 25 mg, oral, BID enoxaparin, 40 mg, subcutaneous, Q12H MICHELLE hydroCHLOROthiazide, 12.5 mg, oral, Daily insulin glargine, 44 Units, subcutaneous, BID insulin lispro, 1-3 Units, subcutaneous, Nightly insulin lispro, 1-5 Units, subcutaneous, TID with meals insulin lispro, 10 Units, subcutaneous, TID with meals sodium chloride 0.9%, 0.5-20 mL, intra-catheter, Q8H MICHELLE Continuous Medications: sodium chloride 0.9%, 125 mL/hr, Last Rate: Stopped (03/04/19 0037) PRN Medications: ??? acetaminophen ??? benzonatate ??? dextrose OR dextrose ??? glucagon ??? influenza quadrivalent [id number] ??? ondansetron ODT OR ondansetron ??? ramelteon ??? senna-docusate ??? sodium chloride 0.9% Vitals: Most Recent : Vitals: 03/04/19 1443 BP: 147/82 Pulse: 86 Resp: 20 Temp: 36.8 ??C (98.2 ??F) SpO2: 98% 24hr Min/Max: Temp Min: 36.5 ??C (97.7 ??F) Max: 36.8 ??C (98.2 ??F) Pulse Min: 82 Max: 95 BP Min: 138/92 Max: 162/96 Resp Min: 19 Max: 27 SpO2 Min: 96 % Max: 98 % I/O: No intake/output data recorded. No intake/output data recorded. Physical Exam: Constitutional: Well developed. Well nourished. Alert and cooperative. In no acute distress. Morbidly obese Head: Normocephalic. Atraumatic. Eyes: Anicteric sclera. Clear conjunctiva. EOMI. Vision grossly intact. Ears: Hearing grossly intact. Nose: No nasal discharge. Neck: Limited 2/2 body habitus Cardiac: Normal rate, regular rhythm. Normal S1/S2. No murmurs, rubs, or gallops. Peripheral pulses2+. No peripheral edema. Limited 2/2 body habitus Resp: Clear to auscultation bilaterally. No wheezes, rhonchi, or rales. Normal work of breathing. Limited 2/2 body habitus Abdomen: Soft. Non- distended. Non- tender. Positive bowel sounds x4 quadrants. No guarding or rebound tenderness. Psychiatric: Alert and oriented to person, place, and time. Appropriate affect and behavior. Skin: Warm. Dry. No rashes, ecchymoses, or lesions. Grossly intact. Extremities: No sigificant deformity or joint abnormality. No edema. Peripheral pulses 2+. No varicosities. Neuro: No focal neurologic deficits Lab/Radiology/Diagnostic Review: Recent Results (from the past 24 hour(s)) POCT glucose Collection Time: 03/03/19 3:54 PM Result Value Ref Range Glucose, POC 297 (H) 70 - 199 mg/dL POCT glucose Collection Time: 03/03/19 5:35 PM Result Value Ref Range Glucose, POC 280 (H) 70 - 199 mg/dL POCT glucose Collection Time: 03/03/19 7:22 PM Result Value Ref Range Glucose, POC 267 (H) 70 - 199 mg/dL Potassium, whole blood Collection Time: 03/03/19 7:35 PM Result Value Ref Range Potassium, bld 3.9 3.3 - 4.9 mmol/L Basic metabolic panel Collection Time: 03/03/19 10:07 PM Result Value Ref Range Sodium 132 (L) 135 - 145 mmol/L Potassium, pl 4.1 3.3 - 4.9 mmol/L Chloride 100 97 - 110 mmol/L CO2 20 (L) 22 - 32 mmol/L Anion gap 12 2 - 15 mmol/L BUN 11 8 - 25 mg/dL Creatinine 0.72 (L) 0.80 - 1.30 mg/dL Glucose 355 (H) 70 - 199 mg/dL Calcium 8.8 8.5 - 10.3 mg/dL POCT glucose Collection Time: 03/03/19 10:09 PM Result Value Ref Range Glucose, POC 365 (H) 70 - 199 mg/dL POCT glucose Collection Time: 03/03/19 11:18 PM Result Value Ref Range Glucose, POC 412 (H) 70 - 199 mg/dL POCT glucose Collection Time: 03/04/19 12:36 AM Result Value Ref Range Glucose, POC 347 (H) 70 - 199 mg/dL Comprehensive metabolic panel Collection Time: 03/04/19 6:48 AM Result Value Ref Range Sodium 134 (L) 135 - 145 mmol/L Potassium, pl 3.9 3.3 - 4.9 mmol/L Chloride 104 97 - 110 mmol/L CO2 20 (L) 22 - 32 mmol/L Anion gap 10 2 - 15 mmol/L BUN 10 8 - 25 mg/dL Creatinine 0.70 (L) 0.80 - 1.30 mg/dL Glucose 319 (H) 70 - 199 mg/dL Calcium 8.8 8.5 - 10.3 mg/dL Bilirubin, total 0.4 0.1 - 1.2 mg/dL Protein, pl 7.1 6.5 - 8.5 g/dL Albumin 4.1 3.5 - 5.0 g/dL Alk phos 90 40 - 130 Units/L ALT 85 (H) 7 - 55 Units/L AST 53 (H) 10 - 50 Units/L Magnesium Collection Time: 03/04/19 6:48 AM Result Value Ref Range Magnesium 1.8 1.4 - 2.5 mg/dL Phosphorus Collection Time: 03/04/19 6:48 AM Result Value Ref Range Phosphorus, pl 2.6 2.3 - 4.5 mg/dL Lipid panel Collection Time: 03/04/19 6:48 AM Result Value Ref Range Cholesterol 206 (H) 30 - 199 mg/dL Triglycerides 1,274 (H) <=149 mg/dL HDL 17 (L) >=40 mg/dL LDL, calculated See Comment <=129 Non-HDL Cholesterol 189 mg/dL Chol/HDL ratio 12 Cholesterol, LDL, direct Collection Time: 03/04/19 6:48 AM Result Value Ref Range LDL Cholesterol Direct 39 <=129 mg/dL POCT glucose Collection Time: 03/04/19 7:49 AM Result Value Ref Range Glucose, POC 342 (H) 70 - 199 mg/dL Glucose comment 1 RN Notified POCT glucose Collection Time: 03/04/19 10:00 AM Result Value Ref Range Glucose, POC 324 (H) 70 - 199 mg/dL Albumin Creatinine Ratio, Urine Collection Time: 03/04/19 11:52 AM Result Value Ref Range Albumin Ur 31.1 mg/L Creatinine Ur 52.5 mg/dL Albumin Creatinine Ratio, Ur 59 (H) 1 - 29 mg/g POCT glucose Collection Time: 03/04/19 12:03 PM Result Value Ref Range Glucose, POC 302 (H) 70 - 199 mg/dL Glucose comment 1 RN Notified POCT glucose Collection Time: 03/04/19 1:00 PM Result Value Ref Range Glucose, POC 265 (H) 70 - 199 mg/dL POCT glucose Collection Time: 03/04/19 2:07 PM Result Value Ref Range Glucose, POC 260 (H) 70 - 199 mg/dL I have reviewed the above laboratory results. Imaging Results: Xr Chest Pa Lateral 2 Vw Result Date: 03/03/2019 Comparison made to exam dated 06/17/2017. Lung volumes are small. The lungs are clear, no edema or pneumonia. No pneumothorax or pleural effusion. The cardiomediastinal silhouette is normal. Dictatedby: Wilder Marques The radiology attending physician has personally reviewed this study, and had reviewed and/or edited this written report and agrees with it. Electronically signed by: Glenn Martinez M.D. Assessment/Plan Diabetic ketoacidosis (CMS/HCC) - At admission: BG 591, AG 22, [...] influenza negative for infection - Insulin regimen: 44U lantus BID, 10U lispro TID with meals, mid dose sliding scale - POCT glucose q4h - Carb consistent, low fat, low cholesterol - Daily BMPs. Replete as needed. - iron handler consult placed. - HbA1c 5.8 in 09/2017. 9.3 03/03/19 - Last lipid panel 09/2017. Lipid panel 03/04/19: TG 1274, LDL 39, HDL 17, Cholesterol 206. Unable to calculate ASCVD given age. Patient would benefit from outpatient, fasting repeat once BG normalized. - Anti- DARREN antibody pending to determine Type I v. Type II DM - Urine albumin creatinine ratio 59. Given hypertensive and age, will start lisinopril 5mg and continue at discharge. Essential hypertension - Home regimen: Coreg 25mg BID and Indapamide 2.5mg qday - Per previous cardiology notes, HTN not well controlled on home regimen - Continue Coreg 25mg BID and started HCTZ 12.5mg qday instead of Indaparmide 2.5mg qday. - HDS. CTM vital signs. Code Status: Full Code Diet: NPO Diet Ice chips, Other (specify); water DVT Prophylaxis: Lovenox 40mg SubQ q12h Access: CODY Burrows MD Internal Medicine, PGY-1 Cosigned by Peter Styles MD at 03/04/2019 4:54 PM CDT Associated attestation - Peter Styles Jr., MD - 03/04/2019 4:54 PM CDT I have seen and examined the patient on 03/04/19. I agree with the findings and plan of care as documented in the resident's/fellow's note. * Megan Cabrera RN - 03/04/2019 8:53 AM CDT 03/04/19 3659 Information Information Obtained From Patient Prior to Admission Primary Caregiver Self Support System Parent Support system contact info (name, phone, availablity) Leatha Velez (patient's mother) [phone] Home Care Services No Durable Medical Equipment None Living Arrangements Parent Type of Residence Private residence (Patient lives in a house with his parents.) Steps in home? 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 Patient admitted for treatment of: chest pain/SOB Information obtained from: patient Insurance verified as: [facility] [employer] (Patient is under his father's plan.) Prescription Coverage: yes PCP verified as: none; Patient wants to follow-up at the [facility]. CM will schedule. Transportation: per mother Admission Source: non-healthcare facility Additional Information/Options Discussed: Verified demographic information from the face sheet withthe patient. Explained role and purpose of family independence case manager. Denies the use of home health in the past - a list will be provided if recommended. Patient demonstrates no agency preference at this time. project safety manager to continue to follow for planning and referrals as needed. Patient/Family agreeable with discharge plan. Based on a comprehensive family assessment, assistance with instrumental activities of daily livingafter discharge will be provided by Leatha, patient's mother. Through the course of our work I determined that Leatha possesses the skill and ability to provide and monitor the care of the patient when he or she returns home. Leatha has the capacity to provide/monitor/arrange for [...] safe discharge Goal: Implement a safe discharge home with family support with PCP follow up. documented in this encounter H&P Notes * Jann Burrows MD - 03/03/2019 9:18 AM CDT Internal Medicine History and Physical Subjective Chief Complaint: 1. Diabetic ketoacidosis HPI: Geraldo Velez is a 23 y.o. male with PMH of HTN, obesity (BMI > 50), metabolic syndrome, and hx asymmetric septal hypertrophy (last TTE 02/13/2016, follows with Dr. Walton) [facility] with 1 week duration of bilateral chest tightness,dyspnea, polyuria, and polydipsia in the setting of tachycardia found to be in diabetic ketoacidosis (BG 591, serum ketones 3.4, AG 22). Admitted to [facility] 03/03/19. At arrival to ED, chest pain was 8/10. Of note patient does not have a formal diagnosis of diabetes mellitus, but per previous cardiology note (07/2018) previously diagnosed with metabolic syndrome and on metformin. At time of admission to [facility], patient states his chest pain and dyspnea have resolved. He denies any complaints or acute symptoms. He states compliance with all medications at home. Home diet consists of red meats, fruits, and vegetables. He states he exercises twice weekly (1.5 hrs, cardio/weight lifting). He denies any previous similar episodes or precipitating. No alleviating or aggravating episodes. Patient does endorse associated vision changes, which he describes as 1 week duration during which his vision will intermittently go in and out . In the ED: troponin was negative x2, EKG normal sinus rhythm with undetermined age inferior NC, pro-BNP negative, and chest pain spontaneously resolved. Diabetic ketoacidosis was treated with IV insulin, IV fluids, and PRN electrolyte repletion. Patient was given lantus 40mg at 0430 03/03/19 and ins ulin gtt was stopped at 0630 03/03/19. At time of admission to [facility], AG 12, serum ketones .8, and BG 193. Additional notable labs include: hemolyzed HFTs, UA with3+ glucose/protein/ketones, without leukocyte esterase/nitrites/WBCs/RBCs, CXR without PNA, and a negative influenza/RSV. At time of admission to [facility], patient is hemodynamically stable with BP 141/79 (following Coreg 25mg). ROS: Positive: vision changes Negative: fevers/chills, abdominal pain, polydipsia, polyria, hematuria, dysuria, weight changes (gain/loss), changes in bowel habits, chest pain, dyspnea Past Medical History: Diagnosis Date ??? HTN (hypertension) ??? Metabolic syndrome ??? Morbid obesity with BMI of 50.0-59.9, adult ([facility]) 07/10/2017 History reviewed. No pertinent surgical history. (Not in a hospital admission) No Known Allergies Social History Tobacco Use ??? Smoking status: Never Smoker ??? Smokeless tobacco: Never Used Substance Use Topics ??? Alcohol use: No Family History Problem Relation Age of Onset ??? Diabetes Mother Family history of diabetes mellitus - (Added by TW Conv) Review of Systems: All other systems were reviewed and are negative except as noted above in the HPI. Objective Scheduled Medications: carvedilol, 25 mg, oral, BID insulin lispro, 1-3 Units, subcutaneous, Nightly insulin lispro, 1-5 Units, subcutaneous, TID with meals Continuous Medications: PRN Medications: dextrose OR dextrose ??? glucagon ??? potassium chloride Vitals: Most Recent : Vitals: 03/03/19 0730 BP: 169/100 Pulse: 81 Resp: 22 Temp: SpO2: 97% Arrival Vitals Temp 03/02/19 1746 36.7 ??C (98.1 ??F) Pulse 03/02/19 1746 99 Resp 03/02/19 1746 26 BP 03/02/19 1746 169/99 SpO2 03/02/19 1746 98 % Temp src 03/02/19 1746 Oral Heart Rate Source 03/02/19 2330 Monitor Patient Position -- BP Location -- FiO2 (%) -- 24hr Min/Max: Temp Min: 36.7 ??C (98.1 ??F) Max: 36.7 ??C (98.1 ??F) Pulse Min: 77 Max: 99 BP Min: 151/78 Max: 169/100 Resp Min: 8 Max: 26 SpO2 Min: 95 % Max: 99 % I/O: I/O last 2 completed shifts: In: 3000 [IV Piggyback:3000] Out: - No intake/output data recorded. Physical exam: Constitutional: Well developed. Well nourished. Alert and cooperative. In no acute distress. Morbidly obese Head: Normocephalic. Atraumatic. Eyes: Anicteric sclera. Clear conjunctiva. EOMI. Vision grossly intact. Ears: Hearing grossly intact. Nose: No nasal discharge. Neck: Limited 2/2 body habitus Cardiac: Normal rate, regular rhythm. Normal S1/S2. No murmurs, rubs, or gallops. Peripheral pulses2+. No peripheral edema. Limited 2/2 body habitus Resp: Clear to auscultation bilaterally. No wheezes, rhonchi, or rales. Normal work of breathing. Limited 2/2 body habitus Abdomen: Soft. Non- distended. Non- tender. Positive bowel sounds x4 quadrants. No guarding or rebound tenderness. Psychiatric: Alert and oriented to person, place, and time. Appropriate affect and behavior. Skin: Warm. Dry. No rashes, ecchymoses, or lesions. Grossly intact. Extremities: No sigificant deformity or joint abnormality. No edema. Peripheral pulses 2+. No varicosities. Neuro: No focal neurologic deficits Lab/Radiology/Diagnostic Review: Recent Results (from the past 24 hour(s)) POCT glucose Collection Time: 03/02/19 5:52 PM Result Value Ref Range Glucose, POC 591 (Critical) 70 - 199 mg/dL Glucose comment 1 Doctor Notified CBC with auto differential Collection Time: 03/02/19 5:57 PM Result Value Ref Range WBC 8.0 3.8 - 9.9 K/cumm Hgb 16.2 13.0 - 17.5 g/dL Hct 42.3 38.9 - 50.3 % Plt 380 150 - 400 K/cumm MPV 10.5 9.1 - 12.3 fL RBC 5.35 4.30 - 5.80 M/cumm MCV 79.1 (L) 81.3 - 96.4 fL MCH 30.3 27.1 - 33.3 pg MCHC 38.3 (H) 32.3 - 35.7 g/dL RDW CV 11.9 11.1 - 14.9 % RDW SD 33.5 (L) 35.7 - 48.1 fL NRBC abs 0.02 (H) 0.00 - 0.01 K/cumm Basic metabolic panel Collection Time: 03/02/19 5:57 PM Result Value Ref Range Sodium 125 (L) 135 - 145 mmol/L Potassium, pl See Comment 3.3 - 4.9 mmol/L Chloride 87 (L) 97 - 110 mmol/L CO2 15 (L) 22 - 32 mmol/L Anion gap 23 (H) 2 - 15 mmol/L BUN 21 8 - 25 mg/dL Creatinine 0.94 0.80 - 1.30 mg/dL Glucose 597 (Critical) 70 - 199 mg/dL Calcium 9.8 8.5 - 10.3 mg/dL Troponin I Collection Time: 03/02/19 5:57 PM Result Value Ref Range Troponin I <0.03 0.00 - 0.03 ng/mL Differential, auto Collection Time: 03/02/19 5:57 PM Result Value Ref Range Neutrophil abs 5.2 1.7 - 6.5 K/cumm Imm gran abs 0.0 0.0 - 0.1 K/cumm Lymphocyte abs 1.8 0.8 - 3.3 K/cumm Monocyte abs 0.6 0.2 - 0.8 K/cumm Eosinophil abs 0.2 0.0 - 0.5 K/cumm Basophil abs 0.1 0.0 - 0.1 K/cumm Neutrophil pct 65.3 % Imm gran pct 0.6 % Lymphocyte pct 22.9 % Monocyte pct 7.8 % Eosinophil pct 2.7 % Basophil pct 0.7 % Critical Result Callback Chemistry Collection Time: 03/02/19 5:57 PM Result Value Ref Range Date Notified [id number] Time Notified 20:01 TestName glucose Called/Read Back elvira Foote MD Called By rls Hepatic function panel Collection Time: 03/02/19 6:25 PM Result Value Ref Range Bilirubin, total 0.5 0.1 - 1.2 mg/dL Bilirubin, direct See Comment 0.1 - 0.3 mg/dL Protein, pl 7.9 6.5 - 8.5 g/dL Albumin 4.2 3.5 - 5.0 g/dL Alk phos 137 (H) 40 - 130 Units/L ALT See Comment 7 - 55 Units/L AST See Comment 10 - 50 Units/L Potassium, whole blood Collection Time: 03/02/19 6:25 PM Result Value Ref Range Potassium, bld 4.6 3.3 - 4.9 mmol/L POCT glucose Collection Time: 03/02/19 6:28 PM Result Value Ref Range Glucose, POC 578 (Critical) 70 - 199 mg/dL Glucose comment 1 Glu2: POCT ketone, fingerstick Collection Time: 03/02/19 6:32 PM Result Value Ref Range Ketones, Blood, POC 3.4 (A) 0.1 - 0.5 mmol/L Blood gas, venous Collection Time: 03/02/19 6:56 PM Result Value Ref Range pH, Venous 7.34 7.32 - 7.43 PCO2, Venous 33 (L) 40 - 50 mmHg PO2, Venous 108 mmHg HCO3 Venous, Calculated 18 (L) 20 - 30 mmol/L BE, venous -7 mmol/L POCT glucose Collection Time: 03/02/19 8:01 PM Result Value Ref Range Glucose, POC 472 (Critical) 70 - 199 mg/dL Glucose comment 1 Glu2: Urinalysis reflex to microscopic Collection Time: 03/02/19 8:03 PM Result Value Ref Range Color, ur Straw Yellow Clarity, ur Clear Clear Specific gravity, ur 1.030 (H) 1.010 - 1.025 pH, urine 6 Protein, ur ql 3+ (A) Negative Glucose, ur ql 3+ (A) Negative Ketones, ur 2+ (A) Negative Bilirubin, ur Negative Negative Blood, ur 1+ (A) Negative Urobilinogen, ur <2.0 <2.0 mg/dL Nitrite, ur Negative Negative Leukocyte esterase, ur Negative Negative Urinalysis, microscopic only Collection Time: 03/02/19 8:03 PM Result Value Ref Range WBC, ur 0-5 0 - 5 /HPF RBC, ur 0-2 0 - 2 /HPF Epithelial cells, squamous, ur 1-5 0 - 5 /HPF Mucous, ur Present (A) POCT glucose Collection Time: 03/02/19 9:15 PM Result Value Ref Range Glucose, POC 369 (H) 70 - 199 mg/dL Pro B-type natriuretic peptide Collection Time: 03/02/19 9:38 PM Result Value Ref Range NT-proBNP <50 <=300 pg/mL POCT glucose Collection Time: 03/02/19 10:14 PM Result Value Ref Range Glucose, POC 378 (H) 70 - 199 mg/dL POCT glucose Collection Time: 03/02/19 11:08 PM Result Value Ref Range Glucose, POC 320 (H) 70 - 199 mg/dL Troponin I Collection Time: 03/02/19 11:15 PM Result Value Ref Range Troponin I <0.03 0.00 - 0.03 ng/mL Basic metabolic panel Collection Time: 03/02/19 11:15 PM Result Value Ref Range Sodium 131 (L) 135 - 145 mmol/L Potassium, pl 3.6 3.3 - 4.9 mmol/L Chloride 96 (L) 97 - 110 mmol/L CO2 13 (L) 22 - 32 mmol/L Anion gap 22 (H) 2 - 15 mmol/L BUN 16 8 - 25 mg/dL Creatinine 0.86 0.80 - 1.30 mg/dL Glucose 297 (H) 70 - 199 mg/dL Calcium 8.7 8.5 - 10.3 mg/dL POCT glucose Collection Time: 03/03/19 12:02 AM Result Value Ref Range Glucose, POC 351 (H) 70 - 199 mg/dL Glucose comment 1 Doctor Notified POCT glucose Collection Time: 03/03/19 1:01 AM Result Value Ref Range Glucose, POC 276 (H) 70 - 199 mg/dL POCT glucose Collection Time: 03/03/19 2:05 AM Result Value Ref Range Glucose, POC 277 (H) 70 - 199 mg/dL POCT glucose Collection Time: 03/03/19 3:02 AM Result Value Ref Range Glucose, POC 233 (H) 70 - 199 mg/dL Basic metabolic panel Collection Time: 03/03/19 3:13 AM Result Value Ref Range Sodium 133 (L) 135 - 145 mmol/L Potassium, pl 3.5 3.3 - 4.9 mmol/L Chloride 98 97 - 110 mmol/L CO2 23 22 - 32 mmol/L Anion gap 12 2 - 15 mmol/L BUN 15 8 - 25 mg/dL Creatinine 0.87 0.80 - 1.30 mg/dL Glucose 218 (H) 70 - 199 mg/dL Calcium 8.7 8.5 - 10.3 mg/dL Influenza A/B and RSV PCR Nasopharyngeal Collection Time: 03/03/19 3:13 AM Result Value Ref Range Influenza A RNA Not Detected Not Detected Influenza B RNA Not Detected Not Detected RSV RNA Not Detected Not Detected POCT glucose Collection Time: 03/03/19 4:30 AM Result Value Ref Range Glucose, POC 203 (H) 70 - 199 mg/dL POCT glucose Collection Time: 03/03/19 5:33 AM Result Value Ref Range Glucose, POC 162 70 - 199 mg/dL POCT glucose Collection Time: 03/03/19 6:30 AM Result Value Ref Range Glucose, POC 152 70 - 199 mg/dL Potassium, whole blood Collection Time: 03/03/19 6:34 AM Result Value Ref Range Potassium, bld 3.2 (L) 3.3 - 4.9 mmol/L POCT glucose Collection Time: 03/03/19 7:32 AM Result Value Ref Range Glucose, POC 160 70 - 199 mg/dL POCT ketone, fingerstick Collection Time: 03/03/19 7:38 AM Result Value Ref Range Ketones, Blood, POC 0.8 (A) 0.1 - 0.5 mmol/L Basic metabolic panel Collection Time: 03/03/19 7:45 AM Result Value Ref Range Sodium 136 135 - 145 mmol/L Potassium, pl 4.0 3.3 - 4.9 mmol/L Chloride 103 97 - 110 mmol/L CO2 22 22 - 32 mmol/L Anion gap 12 2 - 15 mmol/L BUN 14 8 - 25 mg/dL Creatinine 0.74 (L) 0.80 - 1.30 mg/dL Glucose 156 70 - 199 mg/dL Calcium 8.9 8.5 - 10.3 mg/dL I have reviewed the above laboratory results. Additional lab tests: Imaging Results: Xr Chest Pa Lateral 2 Vw Result Date: 03/02/2019 Comparison made to exam dated 06/17/2017. Lung volumes are small. The lungs are clear, no edema or pneumonia. No pneumothorax or pleural effusion. The cardiomediastinal silhouette is normal. Dictatedby: Wilder Marques Additional diagnostic/procedure review: Assessment/Plan Diabetic ketoacidosis (CMS/HCC) - At admission: BG 591, AG 22, [...] CXR, UA, influenza negative for infection - Will start lantus qhs 44U, according to .2U/kg/day dosing and mid dose sliding scale. Will adjustaccording to serial glucose checks - POCT glucose q4h - Carb consistent, low fat, low cholesterol - Daily BMPs. Replete as needed. - iron handler consult placed. - HbA1c 5.8 in 09/2017. Will repeat during admission - Last lipid panel 09/2017. Will repeat during admission - Anti- DARREN antibody pending to determine Type I v. Type II DM - Urine albumin creatinine ratio pending. Essential hypertension - Home regimen: Coreg 25mg BID and Indapamide 2.5mg qday - Per previous cardiology notes, HTN not well controlled on home regimen - Continue Coreg 25mg BID and started HCTZ 12.5mg qday instead of Indaparmide 2.5mg qday. - HDS. CTM vital signs. Code Status: No Order Diet: Adult Diet Restricted; Consistent Carbohydrate DVT Prophylaxis: Lovenox 40mg q12 hours Access: 2 PIV Jann Burrows MD Internal Medicine, PGY-1 Cosigned by Peter Styles MD at 03/03/2019 6:55 PM CDT Associated attestation - Peter Styles Jr., MD - 03/03/2019 6:55 PM CDT I have seen and examined the patient on 03/03/19. I agree with the findings and plan of care as documented in the resident's/fellow's note. documented in this encounter Consult Notes * Jenifer Kunz, RD - 03/06/2019 3:02 PM CDTAssociated Order(s): IP CONSULT TO NUTRITION SERVICES Nutrition Assessment Reason for Assessment: Consult/Referral-Consult for diabetic diet instruction. Encounter Date: 03/06/19 3:02 PM Patient is a 23 y.o. male with chief complaint of diabetic ketoacidosis. LOS is 4 days. HPI: Geraldo Velez is a 23 y.o. male with PMH of HTN, obesity (BMI > 50), metabolic syndrome, and hx asymmetric septal hypertrophy (last TTE 02/13/2016, follows with Dr. Walton) presenting to theED 03/02/19 with 1 week duration of bilateral chest tightness,dyspnea, polyuria, and polydipsia in the setting of tachycardia found to be in diabetic ketoacidosis (BG 591, serum ketones 3.4, AG 22). [facility]. At arrival to ED, chest pain was 8/10. Pt with new diabetes. Objective Past Medical History: Diagnosis Date ??? HTN (hypertension) ??? Metabolic syndrome ??? Morbid obesity with BMI of 50.0-59.9, adult ([facility]) 07/10/2017 History reviewed. No pertinent surgical history. Social History Tobacco Use ??? Smoking status: Never Smoker ??? Smokeless tobacco: Never Used Substance Use Topics ??? Alcohol use: Yes Alcohol/week: 24.0 standard drinks Types: 24 Cans of beer per week Comment: CAGE negative. Case per week. Family History Problem Relation Age of Onset ??? Diabetes Mother Family history of diabetes mellitus - (Added by TW Conv) Anthropometrics: Wt Readings from Last 3 Encounters: 03/04/19 (!) 207.2 kg (456 lb 11.2 oz) 07/23/18 (!) 210.7 kg (464 lb 9.6 oz) 05/01/18 (!) 210.9 kg (465 lb) Anthropometrics Weight: (!) 207.2 kg (456 lb 11.2 oz) Admission Weight : 207.2 kg Weight Change: -12.83 kg (-28.30 lbs) IBW/kg (Calculated) : 99.8 kg Height: 200.7 cm (6' 7.02 ) Weight in (lb) to have BMI = 25: 221.5 BMI (Calculated): 51.4 Nutrition Needs Calculations: Calculated Energy Needs Using Equations Weight: (!) 207.2 kg (456 lb 11.2 oz) Height: 200.7 cm (6' 7.02 ) Temp: 37 ??C (98.6 ??F) Vital Signs: BP: 135/84 Temp: 37 ??C (98.6 ??F) Pulse: 88 Resp: 16 SpO2: 94 % Medications: Scheduled Meds: carvedilol, 25 mg, oral, BID enoxaparin, 40 mg, subcutaneous, Q12H MICHELLE hydroCHLOROthiazide, 12.5 mg, oral, Daily insulin lispro, 1-3 Units, subcutaneous, Nightly insulin lispro, 1-5 Units, subcutaneous, TID with meals insulin regular U-500, 80 Units, subcutaneous, TID with meals lisinopril, 5 mg, oral, Daily metFORMIN, 500 mg, oral, BID with meals (bkfst, dinner) sodium chloride 0.9%, 0.5-20 mL, intra-catheter, Q8H MICHELLE Continuous Infusions: PRN Meds: ??? acetaminophen ??? benzonatate ??? dextrose OR dextrose ??? glucagon ??? ondansetron ODT OR ondansetron ??? ramelteon ??? senna-docusate ??? sodium chloride 0.9% Lab Review: Sodium Date Value Ref Range Status 03/05/2019 132 (L) 135 - 145 mmol/L Final Potassium, pl Date Value Ref Range Status 03/05/2019 3.7 3.3 - 4.9 mmol/L Final Comment: Hemolyzed; (++); potassium value may be falsely elevated by as much as 0.3 - 0.5 mmol/L. Suggest redraw and reanalysis. BUN Date Value Ref Range Status 03/05/2019 12 8 - 25 mg/dL Final Creatinine Date Value Ref Range Status 03/05/2019 0.71 (L) 0.80 - 1.30 mg/dL Final Phosphorus, pl Date Value Ref Range Status 03/04/2019 2.6 2.3 - 4.5 mg/dL Final Albumin Date Value Ref Range Status 03/04/2019 4.1 3.5 - 5.0 g/dL Final Magnesium Date Value Ref Range Status 03/04/2019 1.8 1.4 - 2.5 mg/dL Final Calcium Date Value Ref Range Status 03/05/2019 9.5 8.5 - 10.3 mg/dL Final HDL Date Value Ref Range Status 03/04/2019 17 (L) >=40 mg/dL Final Comment: Interpretive Data Ages < or = 19 years Acceptable: >45 mg/dL Borderline low: 40-45 mg/dL Low: <40 mg/dL Ages > or = 20 years Desirable: >or= 60 mg/dL Low: <40 mg/dL Literature References: 1. Expert Panel on Integrated Guidelines for Cardiovascular Health and Risk Reduction in Children and Adolescents. Pediatrics 2011;128:S213 2. NCEP Expert Panel. Circulation 2004;110:227 Current Interpretive Data was last revised on 2017. ALT Date Value Ref Range Status 03/04/2019 85 (H) 7 - 55 Units/L Final AST Date Value Ref Range Status 03/04/2019 53 (H) 10 - 50 Units/L Final Alk phos Date Value Ref Range Status 03/04/2019 90 40 - 130 Units/L Final Lab Results Component Value Date HGBA1C 9.3 (H) 03/02/2019 HDL 17 (L) 03/04/2019 LDLCALC See Comment 03/04/2019 CHOL 206 (H) 03/04/2019 TRIG 1,274 (H) 03/04/2019 Nursing Assessment: Intake/Output Summary (Last 24 hours) at 03/06/2019 1502 Last data filed at 03/06/2019 1330 Gross per 24 hour Intake 510 ml Output -- Net 510 ml Gastrointestinal Gastrointestinal (WDL): Within Defined Limits Carlos Scale Score: 23 Dietary Orders (From admission, onward) Start Ordered 03/06/19 1246 Adult Diet Restricted; Low Fat, Low Chol; Consistent Carbohydrate Diet effective now Question Answer Comment ([facility]) Diet type Restricted Fat / Sodium Restriction: Low Fat, Low Chol Diabetic: Consistent Carbohydrate 03/06/19 1246 Impression: Pt reports good appetite, had a little nausea yesterday but none today, states he lost 25 pounds and has been trying to lose weight. NUTRITION DIAGNOSIS Nutrition Diagnosis 1: Food and nutrition-related knowledge deficit Related to: Lack of education Evidenced by: Lab abnormality, Other (comment)(Pt with new diabetes) INTERVENTION RD educated Pt and mother on diabetic diet: carbohydrate counting and label reading. Pt and mother asked many good questions. RD left handout with RD contact card. Follow po intakes and Lab values. GOALS / MONITORING: Goals: Oral intake to meet 75% estimated nutritional needs by next assessment Interventions: Education Monitoring and Evaluation: Appetite, Labs, Plan of care, PO intake, Stool patterns, Weight changes Jenifer Kunz MS, RD, LD [phone] documented in this encounter Nursing Notes * Hazel Storm, RN - 03/05/2019 3:58 PM CDT 03/05/19 1545 Pre-Education Assessment Time In 1430 Time Out 1546 Units of Service 5 Visit Type Initial Introduction ID verified;Alert/ oriented x 4;Education provided with patient approval (Pt's mother included in education with permission of the pt. ) Provider Medical/Senior Supply Chain Analyst/PCP (MD states pt. will most likely be DC'd on basal/bolus regimen. ) Treatment Prior To Admission New Onset (Pt. states he was on metformin in the past for weight loss but not for diabetes. ) Knowledge Base Needs Full Education Hemaglobin A1c (A1C 5.8% on 09/2017. 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 States he drinks diet soda & is not a sweet eater but admits to overeating on carbs & drinking 24oz of milk at a time. ) Exercise Habits Active Hypoglycemia New onset, unknown at this time Home Supplies (Pt states he has [employer] insurance. ) Inpatient Recommendations RN to practice with patient Injections RN to reinforce with patient Consistent carb diet;Carb counting Consults Made (Floor RN to make dietitian consult) Discharge Recommendations Insulin Pen Humalog Kwik Pen (pkg of 5);Lantus Solostar Pre-filled Pen (pkg of 5) (Pt. used insulin teaching pen to inject into pillow with good technique. ) Pen [place] Ultra fine 4 mm Glucometer OneTouch Verio Meter (Pt. used OneTouch Verio meter with good technique with a reading of 327.) Test Strips One Touch Verio test strips Lancets Delica lancets Blood Glucose Testing Regimen 4 times per day (Test TID AC, HS, & with any symptoms of hypo/hyperglycemia. Take results to MD for analysis. ) Diabetes/Education Follow Up (Pt. states he will be following up in the [facility] clinic. ) Additional Recommendations Glucagon Emergency kit Pt. & mother given & reviewed [place] packet, types of insulin, Counting Carbs, A1C chart, Freestyle Mars CGM system teaching materials. documented in this encounter ED Notes * Kenroy Farr MD - 03/02/2019 10:00 PM CDT ED Attending Note Patient was seen by the resident physician. Please see their note for complete details of the initial history and physical exam. My brief history, exam and medical decision making is listed below: 23-year-old man with past medical history of hypertension, metabolic syndrome, and asymmetric septal hypertrophy, presents with tachypnea, nausea and vomiting, polyuria, polydipsia, and elevated blood sugar on a home blood glucose monitor the belongs to his mother. Patient states he has been like this for several days. He denied a history of diabetes however his last cardiology note mentions thathe was on metformin and had metabolic syndrome. There is a strong family history of diabetes, obesity, and metabolic syndrome. Initial laboratory studies consistent with diabetic ketoacidosis. Plan for IV insulin, IV fluids, and admission to the intensive care unit. [facility] Kenroy Farr MD Attending Emergency Physician Kenroy Farr MD 03/02/192201 * Kenroy Farr MD - 03/02/2019 6:27 PM CDT HPI Chief Complaint Patient presents with ??? Chest Pain ??? Shortness of Breath 23-year-old male history of hypertension and obese here for chest pain and shortness of breath. Momand dad at bedside stating patient has had chest pain x1 week with shortness of breath over the last couple days. Patient also has a history of septal asymmetry regards to his heart but has been toldthere is nothing to do and he does not have HOCM but mom called child center assistant who said to come here for evaluation. Patient also is endorsing viral URI symptoms such as sore throat, dry intermittent cough, congestion, runny nose. Denies fevers or chills. Reports that chest pain is bilateral tightness and does not radiate elsewhere. Never had a blood clot before. Patient works at [employer]. Did not get his flu shot. No one else sick at home. Was not endorsing polydipsia or polyuria and did not know he had diabetes that here in triage has a blood glucose of 591 with ketones of 3. Patient History Patient Active Problem List Diagnosis Date Noted ??? Diabetic ketoacidosis (CMS/HCC) 03/03/2019 ??? Weight loss counseling, encounter for 10/13/2017 ??? Metabolic syndrome 10/13/2017 ??? Fatty liver 10/13/2017 ??? Disordered sleep 10/13/2017 ??? Morbid obesity with BMI of 50.0-59.9, adult (CMS/HCC) 07/10/2017 ??? Low HDL (under 40) 07/10/2017 ??? Asymmetric septal hypertrophy (CMS/HCC) 02/10/2016 ??? Essential hypertension 03/16/2010 Past Medical History: Diagnosis Date ??? HTN (hypertension) ??? Metabolic syndrome ??? Morbid obesity with BMI of 50.0-59.9, adult (CMS/HCC) 07/10/2017 History reviewed. No pertinent surgical history. Family History Problem Relation Age of Onset ??? Diabetes Mother Family history of diabetes mellitus - (Added by TW Conv) Social History Tobacco Use ??? Smoking status: Never Smoker ??? Smokeless tobacco: Never Used Substance Use Topics ??? Alcohol use: Yes Alcohol/week: 24.0 standard drinks Types: 24 Cans of beer per week Comment: CAGE negative. Case per week. ??? Drug use: No Social History Patient does not qualify to have social determinant information on file (likely too young). Social History Narrative Non-smoker : (Added by TW Conv) Non-smoker : (Added by TW Conv) Review of Systems Review of Systems Constitutional: Positive for fatigue. Respiratory: Positive for shortness of breath. Cardiovascular: Positive for chest pain. All other systems reviewed and are negative. Physical Exam ED Triage Vitals Temp Pulse Resp BP SpO2 03/02/19 1746 03/02/19 1746 03/02/19 1746 03/02/19 1746 03/02/19 174 36.7 ??C (98.1 ??F) 99 26 169/99 98 % Temp src Heart Rate Source Patient Position BP Location FiO2 (%) 03/02/19 1746 03/02/19 2330 -- -- -- Oral Monitor Physical Exam Vitals signs and nursing note reviewed. Constitutional: General: He is not in acute distress. Appearance: He is well-developed. He is obese. HENT: Head: Normocephalic and atraumatic. Right Ear: External ear normal. Left Ear: External ear normal. Nose: Nose normal. Eyes: General: No scleral icterus. Right eye: No discharge. Left eye: No discharge. Conjunctiva/sclera: Conjunctivae normal. Neck: Musculoskeletal: Normal range of motion. Cardiovascular: Rate and Rhythm: Normal rate and regular rhythm. Heart sounds: Normal heart sounds. No murmur. No friction rub. No gallop. Pulmonary: Effort: Pulmonary effort is normal. No respiratory distress. Breath sounds: Examination of the right-upper field reveals decreased breath sounds. Examination ofthe left-upper field reveals decreased breath sounds. Examination of the right-middle field revealsdecreased breath sounds. Examination of the left-middle field reveals decreased breath sounds. [place] of the right-lower field reveals decreased breath sounds. Examination of the left-lower field reveals decreased breath sounds. Decreased breath sounds present. No wheezing or rales. Abdominal: General: Bowel sounds are normal. Palpations: Abdomen is soft. Tenderness: There is no tenderness. There is no guarding or rebound. Musculoskeletal: Normal range of motion. General: No deformity. Skin: General: Skin is warm and dry. Findings: No rash. Neurological: Mental Status: He is alert and oriented to person, place, and time. Psychiatric: Behavior: Behavior normal. MDM MDM Number of Diagnoses or Management Options Diabetic ketoacidosis without coma associated with type 2 diabetes mellitus (CMS/HCC): New onset type 2 diabetes mellitus (CMS/HCC): Diagnosis management comments: 23-year-old male who will be admitted for new onset type 2 diabetes and DKA. Activated DKA order set. Workup viral URI type symptoms and chest pain/shortness of breath and a chest x-ray to rule out pneumonia and flu (no flu shot). EKG given known cardiac septal asymmetry although reportedly not hocm in s/o cp is a concern although appears more b/l tightness and not ACS. No wheeze and only decr aeration bc of body habitus as well as effort. Admit to icu vs floor. Amount and/or Complexity of Data Reviewed Clinical lab tests: reviewed Attending Summary of Care I have seen and examined the patient on 03/02/2019. I reviewed the resident's note and agree with the findings and plan of care as documented in the resident's note with modifications as documented in my note. ED Course as of Mar 03 2127 Time: 03/02 1824 Comment: New onset DKA By: Windy Miller MD Time: 03/02 1824 Comment: Ketones 3.5 By: Windy Miller MD Time: 03/02 2108 Comment: MICU called back and pt needs insulin drip but no micu beds at this second and they might be taking a pt from [facility] so will call back in regards to bed status. Asking for bnp. Will also trend trop and repeat ekg. By: Windy Miller MD Time: 03/02 2304 Comment: Received signout from Dr. Farr, briefly this is a 23 y/o male with new onset diabetes, essentially DKA. FSBS 600 Ketones 3.5. Will admit to MICU given anion gap, but will take a while. By: Mari Rick MD Time: 03/03 23 Comment: ED Boarder Note - Obs accept note History - 23-year-old male with no history of diabetes presents with multiple complaints including shortness of breath, chest pain, nonproductive cough as well as lab evidence of new onset diabetic ketoacidosis. Labs have improved with IV insulin in DKA protocol. Remains on insulin infusion and till anion gap and sugars have corrected. Plan for MICU admission but no beds, may consider closing gapin pursing medicine admission. Exam - awake alert and comfortable in bed. Normal rate. Nonproductive cough, no respiratory distress or tachypnea, normal breath sounds. No abdominal tenderness. No skin pallor. MDM - 23-year-old male with new onset diabetic ketoacidosis currently on insulin infusion for acute direction. Will plan for q.4 hours BMPs, q.1 hour sugars, long-acting insulin when able, PO intake when able, planning for ICU admission may consider floor admission due to hospital over crowding. By: Hi Dan MD Time: 03/03 26 Comment: BG 350, increasing since last value, insulin infusion increased per protocol, BMP pending. By: Hi Dan MD Time: 03/03 114 Comment: No MICU beds available. Will attempt transfer to OS By: Melanie Sloan MD Time: 03/03 433 Comment: Gap closed, will give lantus 40 units (0.3 units/kg would be 66) and turn off drip in 2 hours, floor admission By: Hi Dan MD Diabetic ketoacidosis without coma associated with type 2 diabetes mellitus (CMS/HCC) New onset type 2 diabetes mellitus (CMS/HCC) Windy Miller MD Resident 03/02/19 1834 Kenroy Farr MD 03/03/[id number] * Cherry Chua RN - 03/02/2019 6:00 PM CDT Bed: ED2-23 Expected date: Expected time: Means of arrival: Car Comments: Cherry Chua RN 03/02/19 1800 * Clau Wallis NP - 03/02/2019 5:46 PM CDT Pt to ED with upper chest pain that radiates across the chest to the right jaw and right arm that has been going for one week. Pt also reports SOB with productive cough, chills, body aches for the last week. documented in this encounter Miscellaneous Notes * Plan of Care - Muna Rojas RN - 03/08/2019 8:54 AM CST Problem: Lack of Knowledge: Goal: Ability to describe self-care measures that may prevent or decrease complications will improve Outcome: Progressing Goal: Knowledge of disease or condition will improve Outcome: Progressing Goal: Knowledge of the prescribed therapeutic regimen will improve Outcome: Progressing Goal: Knowledge of prevention and discharge planning will improve Outcome: Progressing Problem: Coping: Goal: Ability to adjust to condition or change in health will improve Outcome: Progressing Problem: Fluid Volume: Goal: Ability to maintain a balanced intake and output will improve Outcome: Progressing Problem: Health Behavior: Goal: Ability to identify and alter actions that are detrimental to health will improve Outcome: Progressing Goal: Ability to identify and utilize available resources and services will improve Outcome: Progressing Goal: Ability to manage health-related needs will improve Outcome: Progressing Problem: Nutritional: Goal: Maintenance of adequate nutrition will improve Outcome: Progressing Goal: Progress toward achieving an optimal weight will improve Outcome: Progressing Problem: Physical Regulation: Goal: Complications related to the disease process, condition or treatment will be avoided or minimized Outcome: Progressing Goal: Diagnostic test results will improve Outcome: Progressing Problem: Skin Integrity: Goal: Risk for impaired skin integrity will decrease Outcome: Progressing Goals: Clinical Goals for the Shift: monitor blood sugars Summary: [employer] * Plan of Care - Amna Foreman RN - 03/07/2019 7:34 PM CDT Goals: Clinical Goals for the Shift: monitor blood sugars Problem: Health Behavior: Goal: Understanding of discharge needs will improve Outcome: Progressing Problem: Lack of Knowledge: Goal: Ability to state ways to decrease the risk of falls will improve Outcome: Progressing Problem: Safety: Goal: Will remain free from falls Outcome: Progressing Goal: Will remain free from injury from falls Outcome: Progressing Goal: Will remain free from falls and injury in home environment Outcome: Progressing Problem: Lack of Knowledge: Goal: Ability to describe self-care measures that may prevent or decrease complications will improve Outcome: Progressing Goal: Knowledge of disease or condition will improve Outcome: Progressing Goal: Knowledge of the prescribed therapeutic regimen will improve Outcome: Progressing Goal: Knowledge of prevention and discharge planning will improve Outcome: Progressing Problem: Coping: Goal: Ability to adjust to condition or change in health will improve Outcome: Progressing Problem: Fluid Volume: Goal: Ability to maintain a balanced intake and output will improve Outcome: Progressing Problem: Health Behavior: Goal: Ability to identify and alter actions that are detrimental to health will improve Outcome: Progressing Goal: Ability to identify and utilize available resources and services will improve Outcome: Progressing Goal: Ability to manage health-related needs will improve Outcome: Progressing Problem: Nutritional: Goal: Maintenance of adequate nutrition will improve Outcome: Progressing Goal: Progress toward achieving an optimal weight will improve Outcome: Progressing Problem: Physical Regulation: Goal: Complications related to the disease process, condition or treatment will be avoided or minimized Outcome: Progressing Goal: Diagnostic test results will improve Outcome: Progressing Problem: Skin Integrity: Goal: Risk for impaired skin integrity will decrease Outcome: Progressing * Hospital Course - Jann Burrows MD - 03/07/2019 7:14 PM CDT Mr. Velez is a 23 yo M with PMH of HTN, morbid obesity (BMI 51.43), asymmetric septal hypertrophy (last TTE 02/2016) admitted for Diabetic ketoacidosis. Of note, patient had no formal diagnosis ofDiabetes Mellitus. In the [facility] ED, patient was treated with IVF, IV insulin gtt, and electrolyte repl acement resulting in prompt closure of AG. Of note, HbA1c was 9.3 during this admission. Patient was started on an insulin regimen for Diabetes Mellitus. The regimen was initially weight based, and titrated up slowly over the course of the admission based upon serial POCT glucoses. At discharge, patient's insulin regimen was: 80U U500 TID 30 minutes prior to meals, 10 lispro TID with meals, and metformin 500mg BID. On this regimen, patient's blood sugars ranged between 101- 165, but will likely require further optimization as an outpatient. Patient was seen by soaping department supervisor andnutrition to educate the patient about carbohydrate consistent diet, weight loss, glucometer use, and insulin pens. The work-up to determine which type of DM patient has included Anti-DARREN ab, Insulingrowth factor 1 level (to assess for acromegaly) and anti- insulin ab, which are pending at discharge. Following discharge, patient will establish care with [facility]. He was also referred to Endocrinology at discharge. Lipid panel during hospitalization notable for TG 1,274 and cholesterol 206. Patient was started onLipitor 20mg qday. Urine albumin: creatinine ratio was 59, and patient was started on lisinopril 5mg qday. Summary: Insulin regimen: 80U U500 TID meals, 10 lispro TID meals, 500mg metformin BID Medication changes: Lipitor 20mg qday, lisinopril 5mg qday Consider repeat fasting lipid panel [employer] * Plan of Care - Muna Rojas RN - 03/07/2019 10:46 AM CDT Problem: Health Behavior: Goal: Understanding of discharge needs will improve Outcome: Progressing Problem: Lack of Knowledge: Goal: Ability to state ways to decrease the risk of falls will improve Outcome: Progressing Problem: Safety: Goal: Will remain free from falls Outcome: Progressing Goal: Will remain free from injury from falls Outcome: Progressing Goal: Will remain free from falls and injury in home environment Outcome: Progressing Problem: Lack of Knowledge: Goal: Ability to describe self-care measures that may prevent or decrease complications will improve Outcome: Progressing Goal: Knowledge of disease or condition will improve Outcome: Progressing Goal: Knowledge of the prescribed therapeutic regimen will improve Outcome: Progressing Goal: Knowledge of prevention and discharge planning will improve Outcome: Progressing Problem: Coping: Goal: Ability to adjust to condition or change in health will improve Outcome: Progressing Problem: Fluid Volume: Goal: Ability to maintain a balanced intake and output will improve Outcome: Progressing Problem: Health Behavior: Goal: Ability to identify and alter actions that are detrimental to health will improve Outcome: Progressing Goal: Ability to identify and utilize available resources and services will improve Outcome: Progressing Goal: Ability to manage health-related needs will improve Outcome: Progressing Problem: Nutritional: Goal: Maintenance of adequate nutrition will improve Outcome: Progressing Goal: Progress toward achieving an optimal weight will improve Outcome: Progressing Problem: Physical Regulation: Goal: Complications related to the disease process, condition or treatment will be avoided or minimized Outcome: Progressing Goal: Diagnostic test results will improve Outcome: Progressing Problem: Skin Integrity: Goal: Risk for impaired skin integrity will decrease Outcome: Progressing Goals: Clinical Goals for the Shift: monitor blood sugars Summary: * Plan of Care Amna Kwon RN - 03/07/2019 12:45 AM CDT Goals: Clinical Goals for the Shift: Monitor labs/vitals/I&Os, Maintain safety, Improve mobility, Monitor/Manage blood glucose Problem: Health Behavior: Goal: Understanding of discharge needs will improve Outcome: Progressing Problem: Lack of Knowledge: Goal: Ability to state ways to decrease the risk of falls will improve Outcome: Progressing Problem: Safety: Goal: Will remain free from falls Outcome: Progressing Goal: Will remain free from injury from falls Outcome: Progressing Goal: Will remain free from falls and injury in home environment Outcome: Progressing Problem: Lack of Knowledge: Goal: Ability to describe self-care measures that may prevent or decrease complications will improve Outcome: Progressing Goal: Knowledge of disease or condition will improve Outcome: Progressing Goal: Knowledge of the prescribed therapeutic regimen will improve Outcome: Progressing Goal: Knowledge of prevention and discharge planning will improve Outcome: Progressing Problem: Coping: Goal: Ability to adjust to condition or change in health will improve Outcome: Progressing Problem: Fluid Volume: Goal: Ability to maintain a balanced intake and output will improve Outcome: Progressing Problem: Health Behavior: Goal: Ability to identify and alter actions that are detrimental to health will improve Outcome: Progressing Goal: Ability to identify and utilize available resources and services will improve Outcome: Progressing Goal: Ability to manage health-related needs will improve Outcome: Progressing Problem: Nutritional: Goal: Maintenance of adequate nutrition will improve Outcome: Progressing Goal: Progress toward achieving an optimal weight will improve Outcome: Progressing Problem: Physical Regulation: Goal: Complications related to the disease process, condition or treatment will be avoided or minimized Outcome: Progressing Goal: Diagnostic test results will improve Outcome: Progressing Problem: Skin Integrity: Goal: Risk for impaired skin integrity will decrease Outcome: Progressing * Plan of Care - Megan Cabrera RN - 03/06/2019 3:31 PM CDT Report per DCAM: The patient is not medically stable for discharge. Insulin being titrated and monitoring blood sugars. CM will monitor for discharge needs. ADD: 03/07/2019 * Plan of Care - Yahaira Martinez RN - 03/06/2019 3:03 PM CDT Goals: Clinical Goals for the Shift: Monitor labs/vitals/I&Os, Maintain safety, Improve mobility, Monitor/Manage blood glucose Summary: * Plan of Care - Luz Wilson RN - 03/06/2019 5:22 AM CDT Problem: Health Behavior: Goal: Understanding of discharge needs will improve Outcome: Progressing Problem: Lack of Knowledge: Goal: Ability to state ways to decrease the risk of falls will improve Outcome: Progressing Problem: Safety: Goal: Will remain free from falls Outcome: Progressing Goal: Will remain free from injury from falls Outcome: Progressing Goal: Will remain free from falls and injury in home environment Outcome: Progressing Problem: Lack of Knowledge: Goal: Ability to describe self-care measures that may prevent or decrease complications will improve Outcome: Progressing Goal: Knowledge of disease or condition will improve Outcome: Progressing Goal: Knowledge of the prescribed therapeutic regimen will improve Outcome: Progressing Goal: Knowledge of prevention and discharge planning will improve Outcome: Progressing Problem: Coping: Goal: Ability to adjust to condition or change in health will improve Outcome: Progressing Problem: Fluid Volume: Goal: Ability to maintain a balanced intake and output will improve Outcome: Progressing Problem: Health Behavior: Goal: Ability to identify and alter actions that are detrimental to health will improve Outcome: Progressing Goal: Ability to identify and utilize available resources and services will improve Outcome: Progressing Goal: Ability to manage health-related needs will improve Outcome: Progressing Problem: Nutritional: Goal: Maintenance of adequate nutrition will improve Outcome: Progressing Goal: Progress toward achieving an optimal weight will improve Outcome: Progressing Problem: Physical Regulation: Goal: Complications related to the disease process, condition or treatment will be avoided or minimized Outcome: Progressing Goal: Diagnostic test results will improve Outcome: Progressing Problem: Skin Integrity: Goal: Risk for impaired skin integrity will decrease Outcome: Progressing Goals: Clinical Goals for the Shift: Monitor labs/vitals/I&Os, Maintain safety, Improve mobility, Monitor/Manage blood glucose Summary: * Plan of Care - Samara Abdullahi RN - 03/05/2019 10:45 AM CDT Problem: Health Behavior: Goal: Understanding of discharge needs will improve Outcome: Progressing Problem: Lack of Knowledge: Goal: Ability to state ways to decrease the risk of falls will improve Outcome: Progressing Problem: Safety: Goal: Will remain free from falls Outcome: Progressing Goal: Will remain free from injury from falls Outcome: Progressing Goal: Will remain free from falls and injury in home environment Outcome: Progressing Problem: Lack of Knowledge: Goal: Ability to describe self-care measures that may prevent or decrease complications will improve Outcome: Progressing Goal: Knowledge of disease or condition will improve Outcome: Progressing Goal: Knowledge of the prescribed therapeutic regimen will improve Outcome: Progressing Goal: Knowledge of prevention and discharge planning will improve Outcome: Progressing Problem: Coping: Goal: Ability to adjust to condition or change in health will improve Outcome: Progressing Problem: Fluid Volume: Goal: Ability to maintain a balanced intake and output will improve Outcome: Progressing Problem: Health Behavior: Goal: Ability to identify and alter actions that are detrimental to health will improve Outcome: Progressing Goal: Ability to identify and utilize available resources and services will improve Outcome: Progressing Goal: Ability to manage health-related needs will improve Outcome: Progressing Problem: Nutritional: Goal: Maintenance of adequate nutrition will improve Outcome: Progressing Goal: Progress toward achieving an optimal weight will improve Outcome: Progressing Problem: Physical Regulation: Goal: Complications related to the disease process, condition or treatment will be avoided or minimized Outcome: Progressing Goal: Diagnostic test results will improve Outcome: Progressing Problem: Skin Integrity: Goal: Risk for impaired skin integrity will decrease Outcome: Progressing Goals: Clinical Goals for the Shift: Monitor labs/vitals/I&Os, Maintain safety, Improve mobility, Monitor/Manage blood glucose Summary: Plan for diabetic education today. Reinforcing education on MD orders and nursing procedures. Pt educated on blood glucose management and procedures. Encouraging patient to ambulate throughout shift to improve mobility. Progressing towards discharge. * Plan of Care - Luz Wilson RN - 03/05/2019 6:58 AM CDT Problem: Health Behavior: Goal: Understanding of discharge needs will improve Outcome: Progressing Problem: Lack of Knowledge: Goal: Ability to state ways to decrease the risk of falls will improve Outcome: Progressing Problem: Safety: Goal: Will remain free from falls Outcome: Progressing Goal: Will remain free from injury from falls Outcome: Progressing Goal: Will remain free from falls and injury in home environment Outcome: Progressing Goals: Clinical Goals for the Shift: Patient will be oriented and settled in the unit. Blood sugars will be within normal limits Summary: * Plan of Care - Geraldo Abbott RN - 03/04/2019 3:17 PM CDT Problem: Health Behavior: Goal: Understanding of discharge needs will improve Outcome: Progressing Problem: Lack of Knowledge: Goal: Ability to state ways to decrease the risk of falls will improve Outcome: Progressing Problem: Safety: Goal: Will remain free from falls Outcome: Progressing Goal: Will remain free from injury from falls Outcome: Progressing Goal: Will remain free from falls and injury in home environment Outcome: Progressing Goals: Clinical Goals for the Shift: Patient will be oriented and settled in the unit. Blood sugars will be within normal limits Summary: * Plan of Flavio - Sole Marie RN - 03/04/2019 2:43 AM CDT Problem: Health Behavior: Goal: Understanding of discharge needs will improve Outcome: Progressing Problem: Lack of Knowledge: Goal: Ability to state ways to decrease the risk of falls will improve Outcome: Progressing Problem: Safety: Goal: Will remain free from falls Outcome: Progressing Goal: Will remain free from injury from falls Outcome: Progressing Goal: Will remain free from falls and injury in home environment Outcome: Progressing Goals: Clinical Goals for the Shift: Patient will be oriented and settled in the unit. Blood sugars will be within normal limits Summary: Patient oriented and settled in the unit. VSS. Patient raising no concerns. No signs of glycemic derangement observed. Care continues. * ED Re-evaluation Note - Glenn Chiu MD - 03/03/2019 10:52 PM CDT TRANSITION OF CARE: I, Glenn Chiu MD, am taking signout from [facility]. I have reviewed all pertinent vital signs, allergies, and history available in the chart. Summary:23 y.o. male with PMH of HTN, metabolic syndrome p/w new onset DKA. Gap closed at 4AM Pending/Dispo: Admit medicine. Has bed, just waiting to go up Pulse: [77-93] 88 Resp: [827] 19 BP: (128-169)/(76-103) 142/96 ED Course as of Mar 03 2252 Time: 03/02 1824 Comment: New onset DKA By: Windy Miller MD Time: 03/02 1824 Comment: Ketones 3.5 By: Windy Miller MD Time: 03/02 2108 Comment: MICU called back and pt needs insulin drip but no micu beds at this second and they might be taking a pt from Em[facility] so will call back in regards to bed status. Asking for bnp. Will also trend trop and repeat ekg. By: Windy Miller MD Time: 03/02 2304 Comment: Received signout from Dr. Farr, briefly this is a 23 y/o male with new onset diabetes, essentially DKA. FSBS 600 Ketones 3.5. Will admit to MICU given anion gap, but will take a while. By: Mari Rick MD Time: 03/03 0023 Comment: ED Toñitoer Note - Obs accept note History - 23-year-old male with no history of diabetes presents with multiple complaints including shortness of breath, chest pain, nonproductive cough as well as lab evidence of new onset diabetic ketoacidosis. Labs have improved with IV insulin in DKA protocol. Remains on insulin infusion and till anion gap and sugars have corrected. Plan for MICU admission but no beds, may consider closing gapin pursing medicine admission. Exam - awake alert and comfortable in bed. Normal rate. Nonproductive cough, no respiratory distress or tachypnea, normal breath sounds. No abdominal tenderness. No skin pallor. MDM - 23-year-old male with new onset diabetic ketoacidosis currently on insulin infusion for acute direction. Will plan for q.4 hours BMPs, q.1 hour sugars, long-acting insulin when able, PO intake when able, planning for ICU admission may consider floor admission due to hospital over crowding. By: Hi Dan MD Time: 03/03 26 Comment: BG 350, increasing since last value, insulin infusion increased per protocol, BMP pending. By: Hi Dan MD Time: 03/03 114 Comment: No MICU beds available. Will attempt transfer to OSH By: Melanie Sloan MD Time: 03/03 433 Comment: Gap closed, will give lantus 40 units (0.3 units/kg would be 66) and turn off drip in 2 hours, floor admission By: MD Glenn Sosa MD Resident 03/04/19 0639 * ED Re-evaluation Note - Noah Burgess MD - 03/03/2019 3:16 PM CDT ED Re-evaluation TRANSITION OF CARE: I, Noah García MD, am taking signout from Dr. Palacios under supervision of Dr. Palacios (Attending). I have reviewed all pertinent vital signs, allergies, and history available in the chart. Summary: 23 y.o. male H/o HTN, metabolic syndrome, p/w tachypnea, nausea, vomiting c/w new onset diabetes in DKA. Gap now closed. Pending: CORBIN Dispo: floor admit now that gap is closed ED Course as of Mar 03 2325 Time: 03/02 1824 Comment: New onset DKA By: Windy Miller MD Time: 03/02 1824 Comment: Ketones 3.5 By: Windy Miller MD Time: 03/02 2108 Comment: MICU called back and pt needs insulin drip but no micu beds at this second and they might be taking a pt from [facility] so will call back in regards to bed status. Asking for bnp. Will also trend trop and repeat ekg. By: Windy Miller MD Time: 03/02 2304 Comment: Received signout from Dr. Farr, briefly this is a 23 y/o male with new onset diabetes, essentially DKA. FSBS 600 Ketones 3.5. Will admit to MICU given anion gap, but will take a while. By: Mari Rick MD Time: 03/03 23 Comment: ABRAHAM Ace Note - Obs accept note History - 23-year-old male with no history of diabetes presents with multiple complaints including shortness of breath, chest pain, nonproductive cough as well as lab evidence of new onset diabetic ketoacidosis. Labs have improved with IV insulin in DKA protocol. Remains on insulin infusion and till anion gap and sugars have corrected. Plan for MICU admission but no beds, may consider closing gapin pursing medicine admission. Exam - awake alert and comfortable in bed. Normal rate. Nonproductive cough, no respiratory distress or tachypnea, normal breath sounds. No abdominal tenderness. No skin pallor. MDM - 23-year-old male with new onset diabetic ketoacidosis currently on insulin infusion for acute direction. Will plan for q.4 hours BMPs, q.1 hour sugars, long-acting insulin when able, PO intake when able, planning for ICU admission may consider floor admission due to hospital over crowding. By: Hi Dan MD Time: 03/03 26 Comment: BG 350, increasing since last value, insulin infusion increased per protocol, BMP pending. By: Hi Dan MD Time: 03/03 114 Comment: No MICU beds available. Will attempt transfer to [facility] By: Melanie Sloan MD Time: 03/03 4458 Comment: Gap closed, will give lantus 40 units (0.3 units/kg would be 66) and turn off drip in 2 hours, floor admission By: MD Noah Sosa MD Resident 03/03/19 2470 * ED Observation Provider Note - Bonita Moreno NP - 03/03/2019 3:04 PM CDT Patient with DKA received IV fluids, insulin, anion gap closed. Most recent blood sugar 240. He denies having any discomfort at this time. I discussed wait for inpatient bed and management of hyperglycemia with patient and his mother and he voices understanding. * Assessment & Plan Note - Jann Burrows MD - 03/03/2019 12:02 PM CDT Associated Problem(s): Essential hypertension - Home regimen: Coreg 25mg BID and [...] help HTN. - HDS. CTM vital signs. [employer] * Assessment & Plan Note - Jann Burrows MD - 03/03/2019 11:45 AM CDT Associated Problem(s): Diabetic ketoacidosis without coma associated with type 2 diabetes mellitus (CMS/HCC) (HCC) - At admission: BG 591, AG 22, [...] - Daily BMPs. Replete as needed. - iron handler consult placed. - HbA1c 5.8 in 09/2017. [...] will require referral to endocrinology at discharge. [employer] * ED Observation Provider Note - Bonita Moreno NP - 03/03/2019 7:59 AM CDT [age] year male with a history of hypertension, metabolic syndrome, asymmetric septal hypertrophy, seen in the ED with tachycardia, nausea, vomiting, polyuria, polydipsia, and elevated blood sugars. Patient diagnosed as DKA. Receives IV fluids, insulin, now off IV insulin. Patient awaiting inpatient bed. He states he has no discomfort at this time. I updated patient on the wait for inpatientbed. And he voiced understanding. Physical examination Constitutional, well-developed, obesity, NAD. Cardiovascular: Normal rate regular rhythm. Pulmonary: Normal effort nondistressed, clear to auscultation. Abdomen: Obese: Soft nontender normal bowel sounds. Neurological: Alert and orientated x3, no distress. Skin warm and dry. Psychiatric: The normal affect and mood; cooperative. * ED Re-evaluation Note - Melanie Ulrich MD - 03/02/2019 11:04 PM CDT ED Re-evaluation Sign out received from: Dr. Miller , [facility], medications, allergies and RN & MD notes reviewed Patient Summary: Pt is a 23y M no sig PM ED Course: Presents in DKA. On insulin gtt. Plan/dispo: Signed out to MICU. ED Course as of Mar 03 652 Time: 03/02 1824 Comment: New onset DKA By: Windy Miller MD Time: 03/02 1824 Comment: Ketones 3.5 By: Windy Miller MD Time: 03/02 2108 Comment: MICU called back and pt needs insulin drip but no micu beds at this second and they might be taking a pt from [facility] so will call back in regards to bed status. Asking for bnp. Will also trend trop and repeat ekg. By: Windy Miller MD Time: 03/02 2304 Comment: Received signout from Dr. Farr, briefly this is a 23 y/o male with new onset diabetes, essentially DKA. FSBS 600 Ketones 3.5. Will admit to MICU given anion gap, but will take a while. By: Mari Rick MD Time: 03/03 23 Comment: ABRAHAM Ace Note - Obs accept note History - 23-year-old male with no history of diabetes presents with multiple complaints including shortness of breath, chest pain, nonproductive cough as well as lab evidence of new onset diabetic ketoacidosis. Labs have improved with IV insulin in DKA protocol. Remains on insulin infusion and till anion gap and sugars have corrected. Plan for MICU admission but no beds, may consider closing gapin pursing medicine admission. Exam - awake alert and comfortable in bed. Normal rate. Nonproductive cough, no respiratory distress or tachypnea, normal breath sounds. No abdominal tenderness. No skin pallor. MDM - 23-year-old male with new onset diabetic ketoacidosis currently on insulin infusion for acute direction. Will plan for q.4 hours BMPs, q.1 hour sugars, long-acting insulin when able, PO intake when able, planning for ICU admission may consider floor admission due to hospital over crowding. By: Hi Dan MD Time: 03/03 26 Comment: BG 350, increasing since last value, insulin infusion increased per protocol, BMP pending. By: Hi Dan MD Time: 03/03 114 Comment: No MICU beds available. Will attempt transfer to OSH By: Melanie Sloan MD Time: 03/03 9123 Comment: Gap closed, will give lantus 40 units (0.3 units/kg would be 66) and turn off drip in 2 hours, floor admission By: MD Melanie Sosa MD Resident 03/03/19 0652 * ED Procedure Note - Kenroy Farr MD - 03/02/2019 10:02 PM CDT Associated Order(s): Critical Care Procedure Critical Care Performed by: Kenroy Farr MD Authorized by: Kenroy Farr MD Critical care provider statement: As reflected [...] spent by me providing the following: continuous telemetry and resuscitation with fluids Insulin infusion I provided emergent necessary critical care medicine [...] time documenting in the medical record. I admitted this patient to an Intensive Care unit (ICU) and discussed management with the admitting team. Kenroy Farr MD 03/02/19 5905 * ED Procedure Note - Kenroy Farr MD - 03/02/2019 9:37 PM CDTAssociated Order(s): ECG 12 lead Procedure ECG 12 lead Date/Time: 03/02/2019 9:37 PM Performed by: Kenroy Farr MD Authorized by: Windy Miller MD Rate: ECG rate: 98 ECG rate assessment: normal Rhythm: Rhythm: sinus rhythm Ectopy: Ectopy: none QRS: QRS axis: Normal QRS intervals: Wide Conduction: Conduction: abnormal Abnormal conduction: non-specific intraventricular conduction delay ST segments: ST segments: Normal T waves: T waves: inverted Inverted: III and aVF Q waves: Q waves: III and aVF Previous ECG: Previous ECG: Compared to current Date of previous EC03/02/2019 Similarity: No change Interpretation: Interpretation: abnormal Recommended Follow-up: Recommended follow up: further workup in the ED Kenroy Farr MD 03/02/197 * ED Procedure Note - Edwin Willams MD - 03/02/2019 5:59 PM CDTAssociated Order(s): ECG 12 lead Procedure ECG 12 lead Date/Time: 03/02/2019 5:59 PM Performed by: Edwin Willams MD Authorized by: Edwin Willams MD Rate: ECG rate: 98 ECG rate assessment: tachycardic Rhythm: Rhythm: sinus tachycardia Ectopy: Ectopy: none QRS: QRS axis: Normal Conduction: Conduction: normal ST segments: ST segments: Normal T waves: T waves: inverted Inverted: III and aVF Q waves: Q waves: III and aVF Previous ECG: Previous ECG: Compared to current Date of previous EC12/06/2014 Comparison ECG info: New TWI Similarity: Changes noted Interpretation: Interpretation: abnormal Recommended Follow-up: Recommended follow up: further workup in the ED Edwin Willams MD 03/02/19 1800 * ED Triage Provider Note - Edwin Willams MD - 03/02/2019 5:56 PM CDT Triage Provider Summary: 23-year-old M with history of asymmetric septal hypertrophy, HTN, morbid obesity presenting here with about a week of worsening SOB and chest pains. Also polyuria and polydipsia. Blood glucose in [id number] and ketones greater than 3 here. On examination, appears distressed, tachypneic, diaphoretic, lung sounds diminished, limited by body habitus, no significant lower extremity edema. EKG with new inferior T-wave inversions compared to prior. Ddx includes ACS, DKA, PE. Plan to initiate labs, fluid resuscitation, prioritizing for treatment room immediately. --Otoniel Willams MD. documented in this encounter Plan of Treatment Scheduled Referrals Name Type Priority Associated Diagnoses Orde r Schedule Ambulatory referral to Endocrinology Outpatient Referral Routine Diabetic ketoacidosis without coma associated with other specified diabetes mellitus (CMS/HCC) Expected: 03/22/2019 (Approximate), Expires: 03/08/2020 documented as of this encounter Procedures Procedure Name Priority Date/Time Associated Diagnosis Comments POCT GLUCOSE DEVICE Routine 03/08/2019 7 :45 AM [employer] POCT GLUCOSE DEVICE Routine 03/08/2019 3 :32 AM [employer]ER DIFFERENTIAL AUTO Routine 03/08/2019 1:3 2 AM CDT CBC WITH AUTO DIFFERENTIAL Routine 03/08/2019 1:32 AM CDT INSULIN ANTIBODY Timed 03/08/2019 1:32 AM CDT INSULIN-LIKE GROWTH FACTOR Timed 03/08/2019 1:32 AM CDT BASIC METABOLIC PANEL Routine 03/08/2019 1:32 AM CDT POCT GLUCOSE DEVICE Routine 03/07/2019 1 1:37 PM CDT POCT GLUCOSE DEVICE Routine 03/07/2019 8 :35 PM CDT POCT GLUCOSE DEVICE Routine 03/07/2019 5 :31 PM CDT POCT GLUCOSE DEVICE Routine 03/07/2019 3 :50 PM CDT POCT GLUCOSE DEVICE Routine 03/07/2019 1 1:53 AM CDT POCT GLUCOSE DEVICE Routine 03/07/2019 8 :25 AM CDT DIFFERENTIAL AUTO Routine 03/07/2019 1:2 3 AM CDT CBC WITH AUTO DIFFERENTIAL Routine 03/07/2019 1:23 AM CDT BASIC METABOLIC PANEL Routine 03/07/2019 1:23 AM CDT POCT GLUCOSE DEVICE Routine 03/06/2019 8 :39 PM CDT POCT GLUCOSE DEVICE Routine 03/06/2019 4 :13 PM CDT POCT GLUCOSE DEVICE Routine 03/06/2019 1 2:46 PM CDT POCT GLUCOSE DEVICE Routine 03/06/2019 8 :09 AM CDT POCT GLUCOSE DEVICE Routine 03/06/2019 2 :50 AM CDT POCT GLUCOSE DEVICE Routine 03/06/2019 1 2:48 AM CDT DIFFERENTIAL AUTO Routine 03/05/2019 11: 51 PM CDT CBC WITH AUTO DIFFERENTIAL Routine 03/05/2019 11:51 PM CDT BASIC METABOLIC PANEL Routine 03/05/2019 11:51 PM CDT POCT GLUCOSE DEVICE Routine 03/05/2019 9 :18 PM CDT POCT GLUCOSE DEVICE Routine 03/05/2019 5 :40 PM CDT POCT GLUCOSE DEVICE Routine 03/05/2019 1 1:56 AM CDT POCT GLUCOSE DEVICE Routine 03/05/2019 7 :59 AM CDT DIFFERENTIAL AUTO Routine 03/05/2019 5:3 7 AM CDT CBC WITH AUTO DIFFERENTIAL Routine 03/05/2019 5:37 AM CDT BASIC METABOLIC PANEL Routine 03/05/2019 5:37 AM CDT POCT GLUCOSE DEVICE Routine 03/04/2019 1 0:35 PM CDT POCT GLUCOSE DEVICE Routine 03/04/2019 6 :30 PM CDT POCT GLUCOSE DEVICE Routine 03/04/2019 5 :33 PM CDT POCT GLUCOSE DEVICE Routine 03/04/2019 4 :04 PM CDT POCT GLUCOSE DEVICE Routine 03/04/2019 2 :07 PM CDT POCT GLUCOSE DEVICE Routine 03/04/2019 1 :00 PM CDT POCT GLUCOSE DEVICE Routine 03/04/2019 1 2:03 PM CDT ALBUMIN CREATININE RATIO, URINE Routine 03/04/2019 11:52 AM CDT POCT GLUCOSE DEVICE Routine 03/04/2019 1 0:00 AM CDT POCT GLUCOSE DEVICE Routine 03/04/2019 7 :49 AM CDT GLUTAMIC ACID DECARBOXYLASE Routine 03/04/2019 6:48 AM CDT PHOSPHORUS Timed 03/04/2019 6:48 AM CDT MAGNESIUM Timed 03/04/2019 6:48 AM CDT CHOLESTEROL, LDL, DIRECT Timed 03/04/2019 6:48 AM CDT LIPID PANEL Timed 03/04/2019 6:48 AM CDT COMPREHENSIVE METABOLIC PANEL Timed 03/04/2019 6:48 AM CDT POCT GLUCOSE DEVICE Routine 03/04/2019 1 2:36 AM CDT POCT GLUCOSE DEVICE Routine 03/03/2019 1 1:18 PM CDT POCT GLUCOSE DEVICE Routine 03/03/2019 1 0:09 PM CDT BASIC METABOLIC PANEL STAT 03/03/2019 10:07 PM CDT POTASSIUM, WHOLE BLOOD STAT 9 7:35 PM CDT POCT GLUCOSE DEVICE Routine 03/03/2019 7 :22 PM CDT POCT GLUCOSE DEVICE Routine 03/03/2019 5 :35 PM CDT POCT GLUCOSE DEVICE Routine 03/03/2019 3 :54 PM CDT BASIC METABOLIC PANEL Timed 03/03/2019 2:15 PM CDT POCT GLUCOSE DEVICE Routine 03/03/2019 1 2:28 PM CDT POCT GLUCOSE DEVICE Routine 03/03/2019 1 0:56 AM CDT POCT GLUCOSE DEVICE Routine 03/03/2019 9 :35 AM CDT BASIC METABOLIC PANEL Timed 03/03/2019 7:45 AM CDT POCT KETONE, FINGERSTICK Routine 03/03/2019 7:38 AM CDT POCT GLUCOSE DEVICE Routine 03/03/2019 7 :32 AM CDT POTASSIUM, WHOLE BLOOD STAT 9 6:34 AM CDT POCT GLUCOSE DEVICE Routine 03/03/2019 6 :30 AM CDT POCT GLUCOSE DEVICE Routine 03/03/2019 5 :33 AM CDT POCT GLUCOSE DEVICE Routine 03/03/2019 4 :30 AM CDT INFLUENZA A/B AND RSV PCR STAT 03/03/2019 3:13 AM CDT BASIC METABOLIC PANEL Timed 03/03/2019 3:13 AM CDT POCT GLUCOSE DEVICE Routine 03/03/2019 3 :02 AM CDT POCT GLUCOSE DEVICE Routine 03/03/2019 2 :05 AM CDT POCT GLUCOSE DEVICE Routine 03/03/2019 1 :01 AM CDT POCT GLUCOSE DEVICE Routine 03/03/2019 1 2:02 AM CDT TROPONIN I Timed 03/02/2019 11:15 PM CDT BASIC METABOLIC PANEL Timed 03/02/2019 11:15 PM CDT POCT GLUCOSE DEVICE Routine 03/02/2019 1 1:08 PM CDT POCT GLUCOSE DEVICE Routine 03/02/2019 1 0:14 PM CDT DE CRITICAL CARE ILL/INJURED PATIENT ADDL 30 MIN Routine 03/02/2019 10:02 PM CDT DE CRITICAL CARE ILL/INJURED PATIENT INIT 30-74 MIN Routine 03/02/2019 10:02 PM CDT PRO B-TYPE NATRIURETIC PEPTIDE STAT 03/02/2019 9:38 PM CDT ECG 12-LEAD Routine 03/02/2019 9:37 PM CDT POCT GLUCOSE DEVICE Routine 03/02/2019 9 :15 PM CDT URINALYSIS AND REFLEX TO MICROSCOPIC STAT 03/02/2019 8:03 PM CDT URINALYSIS, MICROSCOPIC ONLY STAT 03/02/2019 8:03 PM CDT POCT GLUCOSE DEVICE Routine 03/02/2019 8 :01 PM CDT BLOOD GAS, VENOUS STAT 03/02/2019 6:5 6 PM CDT XR CHEST PA LATERAL 2 VIEWS ED 03/02/2019 6:39 PM CDT POCT KETONE, FINGERSTICK Routine 03/02/2019 6:32 PM CDT POCT GLUCOSE DEVICE Routine 03/02/2019 6 :28 PM CDT POTASSIUM, WHOLE BLOOD STAT 9 6:25 PM CDT HEPATIC FUNCTION PANEL STAT 9 6:25 PM CDT ECG 12-LEAD STAT 03/02/2019 5:59 PM CDT DIFFERENTIAL AUTO STAT 03/02/2019 5:5 7 PM CDT CRITICAL RESULT CALLBACK CHEMISTRY STAT 03/02/2019 5:57 PM CDT CBC WITH AUTO DIFFERENTIAL STAT 03/02/2019 5:57 PM CDT TROPONIN I STAT 03/02/2019 5:57 PM CDT HEMOGLOBIN A1C STAT 03/02/2019 5:57 PM CDT BASIC METABOLIC PANEL STAT 03/02/2019 5:57 PM CDT POCT GLUCOSE DEVICE Routine 03/02/2019 5 :52 PM CDT documented in this encounter Results * POCT glucose (03/08/2019 7:45 AM [employer]ICER) [facility] Glucose, POC 132 70 - 199 mg/dL [facility] Blood specimen (specimen) 03/08/2019 7:45 AM [employer] OFFICER 03/08/2019 7:45 AM [employer] OFFICER us Peter Sytles Jr., MD LAB POCT ORDERABLES - DEVICE Final Result [facility] Department [place] [address] * POCT glucose (03/08/2019 3:32 AM [employer] OFFICER) Glucose, POC 101 70 - 199 mg/dL [facility] Blood specimen (specimen) 03/08/2019 3:32 AM [employer] OFFICER 03/08/2019 3:32 AM [employer] OFFICER Peter Styles Jr., MD LAB POCT ORDERABLES - DEVICE Final Result [facility] Department [place] [address] * (ABNORMAL) Differential, auto (03/08/2019 1:32 AM CDT) Pathologist [facility] Neutrophil abs 3.7 1.7 - 6.5 K/cumm [facility] Imm gran abs 0.0 0.0 - 0.1 K/cumm [facility] Lymphocyte abs 2.8 0.8 - 3.3 K/cumm [facility] Monocyte abs 0.9(H) 0.2 - 0.8 K/cumm [facility] Eosinophil abs 0.3 0.0 - 0.5 K/cumm [facility] Basophil abs 0.0 0.0 - 0.1 K/cumm [facility] Neutrophil pct 47.6 % [facility] Comment: Interpretive Data Percent cell count reference ranges are not reported, since discordance with absolute values may lead to misinterpretation of CBC data. Current Interpretive Data was last revised on 2017. Imm gran pct 0.6 % [facility] Comment: Interpretive Data Percent cell count reference ranges are not reported, since discordance with absolute values may lead to misinterpretation of CBC data. Current Interpretive Data was last revised on 2017. Lymphocyte pct 36.3 % [facility] Comment: Interpretive Data Percent cell count reference ranges are not reported, since discordance with absolute values may lead to misinterpretation of CBC data. Current Interpretive Data was last revised on 2017. Monocyte pct 11.5 % [facility] Comment: Interpretive Data Percent cell count reference ranges are not reported, since discordance with absolute values may lead to misinterpretation of CBC data. Current Interpretive Data was last revised on 2017. Eosinophil pct 3.4 % [facility] Comment: Interpretive Data Percent cell count reference ranges are not reported, since discordance with absolute values may lead to misinterpretation of CBC data. Current Interpretive Data was last revised on 2017. Basophil pct 0.6 % [facility] Comment: Interpretive Data Percent cell count reference ranges are not reported, since discordance with absolute values may lead to misinterpretation of CBC data. Current Interpretive Data was last revised on 2017. Blood specimen (specimen) 03/08/2019 1:32 AM CDT 03/08/2019 3:09 AM [employer]ICER us Nita Palacios MD LAB BLOOD ORDERABLES Melina castorena Result [facility] Department [place] [address] * Insulin-like growth factor (IGF-1) (03/08/2019 1:32 AM CDT) Insulin-like growth factor 1 (IGF-1) 101 80 - 400 ng/mL [facility] Comment: Interpretive Data Ismael Stage ? Male ? Female ?I ?80-250 ? 80-320 ? II ? 100-450 ?120-450 ??III ? 250-500 ?250-550 ?? IV ? 225-600 ?225-600 ?V ? 225-500 ?180-500 Assay calibrated to WHO and instituted at [facility] 09/2017. References: 1. [employer] IGF-1 Package Insert 2017-02, V 1.0. 2. [facility] [employer] IGFMS entry ([email or web address]) accessed 09-11-2017. 3. Tutu M, Isac N, Lizandro RT et al. J Clin Endocrinol Metab 2014;99:1736-1555. Current interpretive data was last revised on 2017. Testing performed by: [facility], [facility], [place]., [address] Blood specimen (specimen) 03/08/2019 1:32 AM CDT 03/08/2019 3:00 AM [employer] OFFICER us Peter Styles Jr., MD LAB BLOOD ORDERABLES Final Result Performing Organization Address [facility] Co de Phone Number [facility] [place] [address] * Insulin antibody (03/08/2019 1:32 AM CDT) Insulin ab 0.00 0.00 - 0.02 nmol/L [facility] Comment: ADDITIONAL INFORMATION This test was developed and its performance characteristics determined by [facility] in a manner consistent with CLIA requirements. This test has not been cleared or approved by the U.S. Food and Drug Administration. Test Performed by: [facility] [place] [address] Audio Visual Secretary: Josiah Turk M.D. Ph.D.; CLIA# [id number] Blood specimen (specimen) 03/08/2019 1:32 AM CDT 03/08/2019 1:46 AM CDT us Peter Styles Jr., MD LAB BLOOD ORDERABLES Final Result Performing Organization Address [facility] Co de Phone Number [facility] [place] [place] [address] * (ABNORMAL) Basic metabolic panel (03/08/2019 1:32 AM CDT) [facility] Sodium 137 135 - 145 mmol/L [facility] Potassium, pl 3.2(L) 3.3 - 4.9 mmol/L [facility] Chloride 102 97 - 110 mmol/L [facility] CO2 23 22 - 32 mmol/L [facility] Anion gap 12 2 - 15 mmol/L [facility] BUN 13 8 - 25 mg/dL [facility] Creatinine 0.84 0.80 - 1.30 mg/dL [facility] Glucose 83 70 - 199 mg/dL [facility] Comment: Interpretive Data Fasting glucose [...] 2017. Calcium 9.4 8.5 - 10.3 mg/dL [facility] Blood specimen (specimen) 03/08/2019 1:32 AM CDT 03/08/2019 3:04 AM [employer]ER us Nita Palacios MD LAB BLOOD ORDERABLES Melina castorena Result [facility] Department [place] [address] * (ABNORMAL) CBC with auto differential (03/08/2019 1:32 AM CDT) [facility] WBC 7.8 3.8 - 9.9 K/cumm [facility] Hgb 15.3 13.0 - 17.5 g/dL [facility] Hct 42.4 38.9 - 50.3 % [facility] Plt 315 150 - 400 K/cumm [facility] MPV 10.3 9.1 - 12.3 fL [facility] RBC 5.19 4.30 - 5.80 M/cumm [facility] MCV 81.7 81.3 - 96.4 fL [facility] MCH 29.5 27.1 - 33.3 pg [facility] MCHC 36.1(H) 32.3 - 35.7 g/dL [facility] RDW CV 12.3 11.1 - 14.9 % [facility] RDW SD 36.3 35.7 - 48.1 fL [facility] NRBC abs 0.02(H) 0.00 - 0.01 K/cumm [facility] Blood specimen (specimen) 03/08/2019 1:32 AM CDT 03/08/2019 3:09 AM [employer]ICER us Nita Palacios MD LAB BLOOD ORDERABLES Melina l Result Performing Organization Address [facility] Co de Phone Number [facility] Department [place] [address] * POCT glucose (03/07/2019 11:37 PM CDT) Glucose, POC 111 70 - 199 mg/dL [facility] Blood specimen (specimen) 03/07/2019 11:37 PM CDT 03/07/2019 11:37 PM CDT us Peter Styles Jr., MD LAB POCT ORDERABLES - DEVICE Final Result Performing Organization Address [facility] Co de Phone Number [facility] [place] [place] [address] * POCT glucose (03/07/2019 8:35 PM CDT) Glucose, POC 166 70 - 199 mg/dL [facility] Blood specimen (specimen) 03/07/2019 8:35 PM CDT 03/07/2019 8:35 PM CDT us Peter Styles Jr., MD LAB POCT ORDERABLES - DEVICE Final Result Performing Organization Address [facility] de Phone Number [facility] [place] [address] * POCT glucose (03/07/2019 5:31 PM CDT) Glucose, POC 165 70 - 199 mg/dL [facility] Blood specimen (specimen) 03/07/2019 5:31 PM CDT 03/07/2019 5:31 PM CDT us Peter Styles Jr., MD LAB POCT ORDERABLES - DEVICE Final Result Performing Organization Address [facility] de Phone Number [facility] [place] [address] * (ABNORMAL) POCT glucose (03/07/2019 3:50 PM CDT) Glucose, POC 205(H) 70 - 199 mg/dL [facility] Blood specimen (specimen) 03/07/2019 3:50 PM CDT 03/07/2019 3:50 PM CDT us Peter Styles Jr., MD LAB POCT ORDERABLES - DEVICE Final Result Performing Organization Address [facility] de Phone Number [facility] [place] [place] [address] * (ABNORMAL) POCT glucose (03/07/2019 11:53 AM CDT) Glucose, POC 278(H) 70 - 199 mg/dL [facility] Blood specimen (specimen) 03/07/2019 11:53 AM CDT 03/07/2019 11:53 AM CDT us Peter Styles Jr., MD LAB POCT ORDERABLES - DEVICE Final Result Performing Organization Address [facility] Co de Phone Number [facility] [place] [place] [address] * POCT glucose (03/07/2019 8:25 AM CDT) Pathologist [facility] [place] Glucose, POC 145 70 - 199 mg/dL [facility] Blood specimen (specimen) 03/07/2019 8:25 AM CDT 03/07/2019 8:25 AM CDT Peter Styles Jr., MD LAB POCT ORDERABLES - DEVICE Final Result [facility] [place] [address] * Differential, auto (03/07/2019 1:23 AM CDT) [facility] Neutrophil abs 3.5 1.7 - 6.5 K/cumm [facility] Imm gran abs 0.0 0.0 - 0.1 K/cumm [facility] Lymphocyte abs 2.2 0.8 - 3.3 K/cumm [facility] Monocyte abs 0.6 0.2 - 0.8 K/cumm [facility] Eosinophil abs 0.2 0.0 - 0.5 K/cumm [facility] Basophil abs 0.0 0.0 - 0.1 K/cumm [facility] Neutrophil pct 52.5 % [facility] Comment: Interpretive Data Percent cell count reference ranges are not reported, since discordance with absolute values may lead to misinterpretation of CBC data. Current Interpretive Data was last revised on 2017. Imm gran pct 0.6 % [facility] Comment: Interpretive Data Percent cell count reference ranges are not reported, since discordance with absolute values may lead to misinterpretation of CBC data. Current Interpretive Data was last revised on 2017. Lymphocyte pct 33.1 % [facility] Comment: Interpretive Data Percent cell count reference ranges are not reported, since discordance with absolute values may lead to misinterpretation of CBC data. Current Interpretive Data was last revised on 2017. Monocyte pct 9.4 % [facility] Comment: Interpretive Data Percent cell count reference ranges are not reported, since discordance with absolute values may lead to misinterpretation of CBC data. Current Interpretive Data was last revised on 2017. Eosinophil pct 3.8 % [facility] Comment: Interpretive Data Percent cell count reference ranges are not reported, since discordance with absolute values may lead to misinterpretation of CBC data. Current Interpretive Data was last revised on 2017. Basophil pct 0.6 % [facility] Comment: Interpretive Data Percent cell count reference ranges are not reported, since discordance with absolute values may lead to misinterpretation of CBC data. Current Interpretive Data was last revised on 2017. Blood specimen (specimen) 03/07/2019 1:23 AM CDT 03/07/2019 1:38 AM CDT Nita Palacios MD LAB BLOOD ORDERABLES Melina castorena Result [facility] [place] [address] * (ABNORMAL) Basic metabolic panel (03/07/2019 1:23 AM CDT) Sodium 137 135 - 145 mmol/L [facility] Potassium, pl 3.1(L) 3.3 - 4.9 mmol/L [facility] Chloride 101 97 - 110 mmol/L [facility] CO2 25 22 - 32 mmol/L [facility] Anion gap 11 2 - 15 mmol/L [facility] BUN 10 8 - 25 mg/dL [facility] Creatinine 0.75(L) 0.80 - 1.30 mg/dL [facility] Glucose 109 70 - 199 mg/dL [facility] Comment: Interpretive Data Fasting glucose [...] 2017. Calcium 9.6 8.5 - 10.3 mg/dL [facility] Blood specimen (specimen) 03/07/2019 1:23 AM CDT 03/07/2019 1:38 AM CDT us Nita Palacios MD LAB BLOOD ORDERABLES Melina l Result Performing Organization Address [facility] Co de Phone Number [facility] [place] [address] * (ABNORMAL) CBC with auto differential (03/07/2019 1:23 AM CDT) WBC 6.6 3.8 - 9.9 K/cumm [facility] Hgb 15.6 13.0 - 17.5 g/dL [facility] Hct 41.9 38.9 - 50.3 % [facility] Plt 311 150 - 400 K/cumm [facility] MPV 9.9 9.1 - 12.3 fL [facility] RBC 5.28 4.30 - 5.80 M/cumm [facility] MCV 79.4(L) 81.3 - 96.4 fL [facility] MCH 29.5 27.1 - 33.3 pg [facility] MCHC 37.2(H) 32.3 - 35.7 g/dL [facility] RDW CV 12.1 11.1 - 14.9 % [facility] RDW SD 34.5(L) 35.7 - 48.1 fL [facility] NRBC abs 0.00 0.00 - 0.01 K/cumm [facility] Blood specimen (specimen) 03/07/2019 1:23 AM CDT 03/07/2019 1:38 AM CDT us Nita Palacios MD LAB BLOOD ORDERABLES Melina l Result Performing Organization Address [facility] Co de Phone Number [facility] Department [place] [address] * (ABNORMAL) POCT glucose (03/06/2019 8:39 PM CDT) Glucose, POC 232(H) 70 - 199 mg/dL [facility] Glucose comment 1 RN Notified [facility] Blood specimen (specimen) 03/06/2019 8:39 PM CDT 03/06/2019 8:39 PM CDT us Peter Styles Jr., MD LAB POCT ORDERABLES - DEVICE Final Result Performing Organization Address [facility] [place] [address] * (ABNORMAL) POCT glucose (03/06/2019 4:13 PM CDT) Glucose, POC 286(H) 70 - 199 mg/dL [facility] Glucose comment 1 RN Notified [facility] Blood specimen (specimen) 03/06/2019 4:13 PM CDT 03/06/2019 4:13 PM CDT us Peter Styles Jr., MD LAB POCT ORDERABLES - DEVICE Final Result Performing Organization Address [facility] Co de Phone Number [facility] [place] [place] [address] * (ABNORMAL) POCT glucose (03/06/2019 12:46 PM CDT) Glucose, POC 241(H) 70 - 199 mg/dL [facility] Blood specimen (specimen) 03/06/2019 12:46 PM CDT 03/06/2019 12:46 PM CDT us Peter Styles Jr., MD LAB POCT ORDERABLES - DEVICE Final Result Performing Organization Address [facility]/ZIP Co de Phone Number [facility] Department [place] [address] * (ABNORMAL) POCT glucose (03/06/2019 8:09 AM CDT) Glucose, POC 277(H) 70 - 199 mg/dL [facility] Blood specimen (specimen) 03/06/2019 8:09 AM CDT 03/06/2019 8:09 AM CDT us Peter Styles Jr., MD LAB POCT ORDERABLES - DEVICE Final Result Performing Organization Address [facility]/[place] [address] * (ABNORMAL) POCT glucose (03/06/2019 2:50 AM CDT) Glucose, POC 287(H) 70 - 199 mg/dL [facility] Blood specimen (specimen) 03/06/2019 2:50 AM CDT 03/06/2019 2:50 AM CDT us Peter Styles Jr., MD LAB POCT ORDERABLES - DEVICE Final Result Performing Organization Address [facility] [place] [address] * (ABNORMAL) POCT glucose (03/06/2019 12:48 AM CDT) Glucose, POC 281(H) 70 - 199 mg/dL [facility] Blood specimen (specimen) 03/06/2019 12:48 AM CDT 03/06/2019 12:48 AM CDT us Peter Styles Jr., MD LAB POCT ORDERABLES - DEVICE Final Result Performing Organization Address [facility]/ZIP Co de Phone Number [facility] [place] [address] * Differential, auto (03/05/2019 11:51 PM CDT) Neutrophil abs 2.9 1.7 - 6.5 K/cumm [facility] Imm gran abs 0.0 0.0 - 0.1 K/cumm [facility] Lymphocyte abs 1.9 0.8 - 3.3 K/cumm [facility] Monocyte abs 0.4 0.2 - 0.8 K/cumm [facility] Eosinophil abs 0.2 0.0 - 0.5 K/cumm [facility] Basophil abs 0.0 0.0 - 0.1 K/cumm [facility] Neutrophil pct 52.7 % [facility] Comment: Interpretive Data Percent cell count reference ranges are not reported, since discordance with absolute values may lead to misinterpretation of CBC data. Current Interpretive Data was last revised on 2017. Imm gran pct 0.6 % [facility] Comment: Interpretive Data Percent cell count reference ranges are not reported, since discordance with absolute values may lead to misinterpretation of CBC data. Current Interpretive Data was last revised on 2017. Lymphocyte pct 35.6 % [facility] Comment: Interpretive Data Percent cell count reference ranges are not reported, since discordance with absolute values may lead to misinterpretation of CBC data. Current Interpretive Data was last revised on 2017. Monocyte pct 6.8 % [facility] Comment: Interpretive Data Percent cell count reference ranges are not reported, since discordance with absolute values may lead to misinterpretation of CBC data. Current Interpretive Data was last revised on 2017. Eosinophil pct 3.7 % [facility] Comment: Interpretive Data Percent cell count reference ranges are not reported, since discordance with absolute values may lead to misinterpretation of CBC data. Current Interpretive Data was last revised on 2017. Basophil pct 0.6 % [facility] Comment: Interpretive Data Percent cell count reference ranges are not reported, since discordance with absolute values may lead to misinterpretation of CBC data. Current Interpretive Data was last revised on 2017. Blood specimen (specimen) 03/05/2019 11:51 PM CDT 03/06/2019 12:10 AM CDT us Nita Palacios MD LAB BLOOD ORDERABLES Melina castorena Result [facility] Department [place] [address] * (ABNORMAL) Basic metabolic panel (03/05/2019 11:51 PM CDT) Sodium 132(L) 135 - 145 mmol/L [facility] Potassium, pl 3.7 3.3 - 4.9 mmol/L [facility] Comment:Hemolyzed; (++); pot assium value may be falsely elevated by as much as 0.3 - 0.5 mmol/L. Suggest redraw and reanalysis. Chloride 100 97 - 110 mmol/L [facility] CO2 21(L) 22 - 32 mmol/L [facility] Anion gap 11 2 - 15 mmol/L [facility] BUN 12 8 - 25 mg/dL [facility] Creatinine 0.71(L) 0.80 - 1.30 mg/dL [facility] Glucose 289(H) 70 - 199 mg/dL [facility] Comment: Interpretive Data Fasting glucose [...] 2017. Calcium 9.5 8.5 - 10.3 mg/dL [facility] Blood specimen (specimen) 03/05/2019 11:51 PM CDT 03/06/2019 12:10 AM CDT us Nita Palacios MD LAB BLOOD ORDERABLES Melina castorena Result Performing Organization Address [facility]/ZIP Co de Phone Number [facility] Department [place] [address] * (ABNORMAL) CBC with auto differential (03/05/2019 11:51 PM CDT) [facility] WBC 5.4 3.8 - 9.9 K/cumm [facility] Hgb 15.6 13.0 - 17.5 g/dL [facility] Hct 42.2 38.9 - 50.3 % [facility] Plt 303 150 - 400 K/cumm [facility] MPV 9.9 9.1 - 12.3 fL [facility] RBC 5.24 4.30 - 5.80 M/cumm [facility] MCV 80.5(L) 81.3 - 96.4 fL [facility] MCH 29.8 27.1 - 33.3 pg [facility] MCHC 37.0(H) 32.3 - 35.7 g/dL [facility] RDW CV 12.1 11.1 - 14.9 % [facility] RDW SD 34.7(L) 35.7 - 48.1 fL [facility] NRBC abs 0.00 0.00 - 0.01 K/cumm [facility] Blood specimen (specimen) 03/05/2019 11:51 PM CDT 03/06/2019 12:10 AM CDT us Nita Palacios MD LAB BLOOD ORDERABLES Melina castorena Result [facility] Department [place] [address] * (ABNORMAL) POCT glucose (03/05/2019 9:18 PM CDT) [facility] Glucose, POC 356(H) 70 - 199 mg/dL [facility] Glucose comment 1 RN Notified [facility] Blood specimen (specimen) 03/05/2019 9:18 PM CDT 03/05/2019 9:18 PM CDT us Peter Styles Jr., MD LAB POCT ORDERABLES - DEVICE Final Result Performing Organization Address [facility] [place] [address] * (ABNORMAL) POCT glucose (03/05/2019 5:40 PM CDT) Glucose, POC 295(H) 70 - 199 mg/dL [facility] Blood specimen (specimen) 03/05/2019 5:40 PM CDT 03/05/2019 5:40 PM CDT us Peter Styles Jr., MD LAB POCT ORDERABLES - DEVICE Final Result Performing Organization Address [facility] [place] [address] * (ABNORMAL) POCT glucose (03/05/2019 11:56 AM CDT) Glucose, POC 387(H) 70 - 199 mg/dL [facility] Glucose comment 1 RN Notified [facility] Blood specimen (specimen) 03/05/2019 11:56 AM CDT 03/05/2019 11:56 AM CDT us Peter Styles Jr., MD LAB POCT ORDERABLES - DEVICE Final Result Performing Organization Address [facility] [place] [address] * (ABNORMAL) POCT glucose (03/05/2019 7:59 AM CDT) Glucose, POC 293(H) 70 - 199 mg/dL [facility] Blood specimen (specimen) 03/05/2019 7:59 AM CDT 03/05/2019 7:59 AM CDT us Peter Styles Jr., MD LAB POCT ORDERABLES - DEVICE Final Result [facility] Department [place] [address] * Differential, auto (03/05/2019 5:37 AM CDT) Neutrophil abs 2.6 1.7 - 6.5 K/cumm [facility] Imm gran abs 0.0 0.0 - 0.1 K/cumm [facility] Lymphocyte abs 1.5 0.8 - 3.3 K/cumm [facility] Monocyte abs 0.5 0.2 - 0.8 K/cumm [facility] Eosinophil abs 0.2 0.0 - 0.5 K/cumm [facility] Basophil abs 0.0 0.0 - 0.1 K/cumm [facility] Neutrophil pct 54.5 % [facility] Comment: Interpretive Data Percent cell count reference ranges are not reported, since discordance with absolute values may lead to misinterpretation of CBC data. Current Interpretive Data was last revised on 2017. Imm gran pct 0.8 % [facility] Comment: Interpretive Data Percent cell count reference ranges are not reported, since discordance with absolute values may lead to misinterpretation of CBC data. Current Interpretive Data was last revised on 2017. Lymphocyte pct 30.2 % [facility] Comment: Interpretive Data Percent cell count reference ranges are not reported, since discordance with absolute values may lead to misinterpretation of CBC data. Current Interpretive Data was last revised on 2017. Monocyte pct 10.4 % [facility] Comment: Interpretive Data Percent cell count reference ranges are not reported, since discordance with absolute values may lead to misinterpretation of CBC data. Current Interpretive Data was last revised on 2017. Eosinophil pct 3.5 % [facility] Comment: Interpretive Data Percent cell count reference ranges are not reported, since discordance with absolute values may lead to misinterpretation of CBC data. Current Interpretive Data was last revised on 2017. Basophil pct 0.6 % [facility] Comment: Interpretive Data Percent cell count reference ranges are not reported, since discordance with absolute values may lead to misinterpretation of CBC data. Current Interpretive Data was last revised on 2017. Blood specimen (specimen) 03/05/2019 5:37 AM CDT 03/05/2019 5:48 AM CDT us Nita Palacios MD LAB BLOOD ORDERABLES Melina l Result Performing Organization Address [facility] Co de Phone Number [facility] Department [place] [address] * (ABNORMAL) Basic metabolic panel (03/05/2019 5:37 AM CDT) Pathologist [facility] Sodium 135 135 - 145 mmol/L [facility] Potassium, pl 3.5 3.3 - 4.9 mmol/L [facility] Chloride 102 97 - 110 mmol/L [facility] CO2 20(L) 22 - 32 mmol/L [facility] Anion gap 13 2 - 15 mmol/L [facility] BUN 10 8 - 25 mg/dL [facility] Creatinine 0.68(L) 0.80 - 1.30 mg/dL [facility] Glucose 275(H) 70 - 199 mg/dL [facility] Comment: Interpretive Data Fasting glucose [...] 2017. Calcium 9.3 8.5 - 10.3 mg/dL [facility] Blood specimen (specimen) 03/05/2019 5:37 AM CDT 03/05/2019 5:48 AM CDT us Nita Palacios MD LAB BLOOD ORDERABLES Melina l Result Performing Organization Address [facility] de Phone Number [facility] [place] [address] * (ABNORMAL) CBC with auto differential (03/05/2019 5:37 AM CDT) [facility] WBC 4.8 3.8 - 9.9 K/cumm [facility] Hgb 14.7 13.0 - 17.5 g/dL [facility] Hct 40.2 38.9 - 50.3 % [facility] Plt 281 150 - 400 K/cumm [facility] MPV 10.0 9.1 - 12.3 fL [facility] RBC 4.97 4.30 - 5.80 M/cumm [facility] MCV 80.9(L) 81.3 - 96.4 fL [facility] MCH 29.6 27.1 - 33.3 pg [facility] MCHC 36.6(H) 32.3 - 35.7 g/dL [facility] RDW CV 12.5 11.1 - 14.9 % [facility] RDW SD 36.0 35.7 - 48.1 fL [facility] NRBC abs 0.00 0.00 - 0.01 K/cumm [facility] Blood specimen (specimen) 03/05/2019 5:37 AM CDT 03/05/2019 5:48 AM CDT us Nita Palacios MD LAB BLOOD ORDERABLES Melina l Result Performing Organization Address [facility] Co de Phone Number [facility] [place] [address] * (ABNORMAL) POCT glucose (03/04/2019 10:35 PM CDT) [facility] Glucose, POC 248(H) 70 - 199 mg/dL [facility] Blood specimen (specimen) 03/04/2019 10:35 PM CDT 03/04/2019 10:35 PM CDT us Peter Styles Jr., MD LAB POCT ORDERABLES - DEVICE Final Result Performing Organization Address [facility] [place] [address] * (ABNORMAL) POCT glucose (03/04/2019 6:30 PM CDT) Glucose, POC 251(H) 70 - 199 mg/dL [facility] Glucose comment 1 RN Notified [facility] Blood specimen (specimen) 03/04/2019 6:30 PM CDT 03/04/2019 6:30 PM CDT us Peter Styles Jr., MD LAB POCT ORDERABLES - DEVICE Final Result Performing Organization Address [facility] de Phone Number [facility] [employer] [place], [place] [id number] * (ABNORMAL) POCT glucose (03/04/2019 5:33 PM CDT) Glucose, POC 277(H) 70 - 199 mg/dL [facility] Glucose comment 1 RN Notified [facility] Blood specimen (specimen) 03/04/2019 5:33 PM CDT 03/04/2019 5:33 PM CDT us Peter Styles Jr., MD LAB POCT ORDERABLES - DEVICE Final Result Performing Organization Address [facility] de Phone Number [facility] [employer] [place], [place] [id number] * (ABNORMAL) POCT glucose (03/04/2019 4:04 PM CDT) Glucose, POC 261(H) 70 - 199 mg/dL [facility] Blood specimen (specimen) 03/04/2019 4:04 PM CDT 03/04/2019 4:04 PM CDT us Peter Styles Jr., MD LAB POCT ORDERABLES - DEVICE Final Result Performing Organization Address [facility] Co de Phone Number [facility] [place] [address] * (ABNORMAL) POCT glucose (03/04/2019 2:07 PM CDT) Glucose, POC 260(H) 70 - 199 mg/dL [facility] Blood specimen (specimen) 03/04/2019 2:07 PM CDT 03/04/2019 2:07 PM CDT us Peter Styles Jr., MD LAB POCT ORDERABLES - DEVICE Final Result Performing Organization Address [facility] de Phone Number [facility] [place] [address] * (ABNORMAL) POCT glucose (03/04/2019 1:00 PM CDT) Glucose, POC 265(H) 70 - 199 mg/dL [facility] Blood specimen (specimen) 03/04/2019 1:00 PM CDT 03/04/2019 1:00 PM CDT us Peter Styles Jr., MD LAB POCT ORDERABLES - DEVICE Final Result Performing Organization Address [facility] Co de Phone Number [facility] [place] [address] * (ABNORMAL) POCT glucose (03/04/2019 12:03 PM CDT) Glucose, POC 302(H) 70 - 199 mg/dL [facility] Glucose comment 1 RN Notified [facility] Blood specimen (specimen) 03/04/2019 12:03 PM CDT 03/04/2019 12:03 PM CDT us Peter Styles Jr., MD LAB POCT ORDERABLES - DEVICE Final Result Performing Organization Address [facility] Co de Phone Number [facility] [place] [place] [address] * (ABNORMAL) Albumin Creatinine Ratio, Urine (03/04/2019 11:52 AM CDT) Albumin Ur 31.1 mg/L [facility] Comment: Interpretive Data No reference range established. Current interpretive data was last revised 2018. Creatinine Ur 52.5 mg/dL [facility] Comment: Interpretive Data No reference range established. Current interpretive data was last revised 2018. Albumin Creatinine Ratio, Ur 59(H) 1 - 29 mg/g [facility] Urine 03/04/2019 11:5 2 AM CDT 03/04/2019 12:10 PM CDT Narrative [facility] - 03/04/2019 1:06 PM CDT THE BJ COLLECTION LOCATION IS [facility] OBS- us Nita Palacios MD LAB URINE ORDERABLES Melina l Result Performing Organization Address [facility] Co de Phone Number [facility] [place] [place] [address] * (ABNORMAL) POCT glucose (03/04/2019 10:00 AM CDT) [facility] Signature Glucose, POC 324(H) 70 - 199 mg/dL [facility] Blood specimen (specimen) 03/04/2019 10:00 AM CDT 03/04/2019 10:00 AM CDT us Peter Styles Jr., MD LAB POCT ORDERABLES - DEVICE Final Result Performing Organization Address [facility] Co de Phone Number [facility] [place] [place] [address] * (ABNORMAL) POCT glucose (03/04/2019 7:49 AM CDT) Glucose, POC 342(H) 70 - 199 mg/dL [facility] Glucose comment 1 RN Notified [facility] Blood specimen (specimen) 03/04/2019 7:49 AM CDT 03/04/2019 7:49 AM CDT Peter Styles Jr., MD LAB POCT ORDERABLES - DEVICE Final Result Performing Organization Address [facility] de Phone Number [facility] Department [place] [address] * Cholesterol, LDL, direct (03/04/2019 6:48 AM CDT) [facility] LDL Cholesterol, Direct 39 <=129 mg/dL [facility] Comment: Interpretive Data Ages < or [...] last revised on 2017. Blood specimen (specimen) 03/04/2019 6:48 AM CDT 03/04/2019 6:56 AM CDT Narrative [facility] - 03/04/2019 8:59 AM CDT Cholesterol, LDL, direct reflexed based on Elevated Triglyceride (>400) us Nita Palacios MD LAB BLOOD ORDERABLES Melina l Result Performing Organization Address [facility] Co de Phone Number [facility] Department [place] [address] * Glutamic acid decarboxylase (03/04/2019 6:48 AM CDT) GAD65 ab ser 0.00 <=0.02 nmol/L [facility] Comment: ADDITIONAL INFORMATION This test was developed and its performance characteristics determined by [facility] in a manner consistent with CLIA requirements. This test has not been cleared or approved by the U.S. Food and Drug Administration. Test Performed by: [place] [address] Audio Visual Secretary: Josiah Turk M.D. Ph.D.; CLIA# [id number] Blood specimen (specimen) 03/04/2019 6:48 AM CDT 03/04/2019 8:02 AM CDT Nita Palacios MD LAB BLOOD ORDERABLES Melina castorena Result [facility] [place] [address] * (ABNORMAL) Lipid panel (03/04/2019 6:48 AM CDT) Cholesterol 206(H) 30 - 199 mg/dL [facility] Comment: Interpretive Data Ages [...] Data was last revised on 2017. Triglycerides 1,274(H) <=149 mg/dL [facility]AC[facility] Comment: Interpretive Data Ages < or [...] Data was last revised on 2017. HDL 17(L) >=40 mg/dL [facility] Comment: Interpretive Data Ages < or [...] 2017. LDL, calculated See Comment <=[address] [facility] Comment: Unable to calculate exact result. Interpretive Data Ages < or = 19 [...] was last revised on 2017. Non-HDL Cholesterol 189 mg/dL [facility] Comment: Interpretive Data Ages < or [...] was last revised on 2017. Chol/HDL ratio 12 [facility] Blood specimen (specimen) 03/04/2019 6:48 AM CDT 03/04/2019 6:56 AM CDT us Nita Palacios MD LAB BLOOD ORDERABLES Melina castorena Result [facility] Department [place] [address] * Phosphorus (03/04/2019 6:48 AM CDT) Pathologist [facility] Phosphorus, pl 2.6 2.3 - 4.5 mg/dL [facility] Blood specimen (specimen) 03/04/2019 6:48 AM CDT 03/04/2019 6:56 AM CDT Nita Palacios MD LAB BLOOD ORDERABLES Melina l Result Performing Organization Address [facility] Co de Phone Number [facility] [place] [place] [address] * Magnesium (03/04/2019 6:48 AM CDT) [facility] Magnesium 1.8 1.4 - 2.5 mg/dL [facility] Blood specimen (specimen) 03/04/2019 6:48 AM CDT 03/04/2019 6:56 AM CDT Nita Palacios MD LAB BLOOD ORDERABLES Melina l Result Performing Organization Address [facility] de Phone Number [facility] Department [place] [address] * (ABNORMAL) Comprehensive metabolic panel (03/04/2019 6:48 AM CDT) [facility] Sodium 134(L) 135 - 145 mmol/L [facility] Potassium, pl 3.9 3.3 - 4.9 mmol/L [facility] Chloride 104 97 - 110 mmol/L [facility] CO2 20(L) 22 - 32 mmol/L [facility] Anion gap 10 2 - 15 mmol/L [facility] BUN 10 8 - 25 mg/dL [facility] Creatinine 0.70(L) 0.80 - 1.30 mg/dL [facility] Glucose 319(H) 70 - 199 mg/dL [facility] Comment: Interpretive Data Fasting glucose [...] 2017. Calcium 8.8 8.5 - 10.3 mg/dL [facility] Bilirubin, total 0.4 0.1 - 1.2 mg/dL [facility] Protein, pl 7.1 6.5 - 8.5 g/dL [facility] Albumin 4.1 3.5 - 5.0 g/dL [facility] Alk phos 90 40 - 130 Units/L [facility] ALT 85(H) 7 - 55 Units/L [facility] AST 53(H) 10 - 50 Units/L [facility] Blood specimen (specimen) 03/04/2019 6:48 AM CDT 03/04/2019 6:56 AM CDT us Nita Palacios MD LAB BLOOD ORDERABLES Melina l Result Performing Organization Address City/[facility]/ZIP Co de Phone Number [facility] [place] [address] * (ABNORMAL) POCT glucose (03/04/2019 12:36 AM CDT) Glucose, POC 347(H) 70 - 199 mg/dL [facility] Blood specimen (specimen) 03/04/2019 12:36 AM CDT 03/04/2019 12:36 AM CDT us Peter Styles Jr., MD LAB POCT ORDERABLES - DEVICE Final Result Performing Organization Address City/[facility]/ZIP Co de Phone Number [facility] [place] [address] * (ABNORMAL) POCT glucose (03/03/2019 11:18 PM CDT) Glucose, POC 412(H) 70 - 199 mg/dL [facility] Blood specimen (specimen) 03/03/2019 11:18 PM CDT 03/03/2019 11:18 PM CDT us Peter Styles Jr., MD LAB POCT ORDERABLES - DEVICE Final Result Performing Organization Address City/[facility] Co de Phone Number [facility] [place] [place] [address] * (ABNORMAL) POCT glucose (03/03/2019 10:09 PM CDT) [facility] Glucose, POC 365(H) 70 - 199 mg/dL [facility] Blood specimen (specimen) 03/03/2019 10:09 PM CDT 03/03/2019 10:09 PM CDT us Peter Styles Jr., MD LAB POCT ORDERABLES - DEVICE Final Result Performing Organization Address [facility] de Phone Number [facility] Department [place] [address] * (ABNORMAL) Basic metabolic panel (03/03/2019 10:07 PM CDT) [facility] Sodium 132(L) 135 - 145 mmol/L [facility] Potassium, pl 4.1 3.3 - 4.9 mmol/L [facility] Comment:Hemolyzed; (+++); po tassium value may be falsely elevated by as much as 0.6 - 1.0 mmol/L. Suggest redraw and reanalysis. Chloride 100 97 - 110 mmol/L [facility] CO2 20(L) 22 - 32 mmol/L [facility] Anion gap 12 2 - 15 mmol/L [facility] BUN 11 8 - 25 mg/dL [facility] Creatinine 0.72(L) 0.80 - 1.30 mg/dL [facility] Glucose 355(H) 70 - 199 mg/dL [facility] Comment: Interpretive Data Fasting glucose [...] 2017. Calcium 8.8 8.5 - 10.3 mg/dL [facility] Blood specimen (specimen) 03/03/2019 10:07 PM CDT 03/03/2019 10:21 PM CDT Narrative [facility] - 03/03/2019 10:46 PM CDT THE COLLECTION LOCATION IS [facility] OBS-01 Noah Burgess MD LAB BLOOD ORDERABLES Melina l Result Performing Organization Address City/[facility]/ZIP Co de Phone Number [facility] [place] [address] * Potassium, whole blood (03/03/2019 7:35 PM CDT) Potassium, bld 3.9 3.3 - 4.9 mmol/L [facility] Blood specimen (specimen) 03/03/2019 7:35 PM CDT 03/03/2019 7:41 PM CDT Narrative [facility] - 03/03/2019 7:50 PM CDT THE COLLECTION LOCATION IS [facility] OBS-01 us Bonita Moreno NP LAB BLOOD ORDERABLES Final Result Performing Organization Address City/[facility]/ZIP Co de Phone Number [facility] Department of [employer] [place], [place] [id number] * (ABNORMAL) POCT glucose (03/03/2019 7:22 PM CDT) Glucose, POC 267(H) 70 - 199 mg/dL [facility] Blood specimen (specimen) 03/03/2019 7:22 PM CDT 03/03/2019 7:22 PM CDT us Peter Styles Jr., MD LAB POCT ORDERABLES - DEVICE Final Result Performing Organization Address [facility] de Phone Number [facility] [place] [address] * (ABNORMAL) POCT glucose (03/03/2019 5:35 PM CDT) [facility] Glucose, POC 280(H) 70 - 199 mg/dL [facility] Blood specimen (specimen) 03/03/2019 5:35 PM CDT 03/03/2019 5:35 PM CDT us Peter Styles Jr., MD LAB POCT ORDERABLES - DEVICE Final Result Performing Organization Address [facility] Phone Number [facility] [place] [address] * (ABNORMAL) POCT glucose (03/03/2019 3:54 PM CDT) [facility] Glucose, POC 297(H) 70 - 199 mg/dL [facility] Blood specimen (specimen) 03/03/2019 3:54 PM CDT 03/03/2019 3:54 PM CDT us Peter Styles Jr., MD LAB POCT ORDERABLES - DEVICE Final Result Performing Organization Address [facility] [place] [address] * (ABNORMAL) Basic metabolic panel (03/03/2019 2:15 PM CDT) [facility] Sodium 132(L) 135 - 145 mmol/L [facility] Comment:Lipemic Potassium, pl 4.1 3.3 - 4.9 mmol/L [facility] Comment: Hemolyzed; (+++); potassium value may be falsely elevated by as much as 0.6 - 1.0 mmol/L. Suggest redraw and reanalysis. Lipemic Chloride 99 97 - 110 mmol/L [facility] Comment:Lipemic CO2 19(L) 22 - 32 mmol/L [facility] Comment:Lipemic Anion gap 14 2 - 15 mmol/L [facility] Comment:Lipemic BUN 12 8 - 25 mg/dL [facility] Comment:Lipemic Creatinine 0.78(L) 0.80 - 1.30 mg/dL [facility] Comment:Lipemic Glucose 277(H) 70 - 199 mg/dL [facility] Comment: Lipemic Interpretive Data Fasting glucose >/= 126 mg/dl [...] 2017. Calcium 8.8 8.5 - 10.3 mg/dL [facility] Comment:Lipemic Blood specimen (specimen) 03/03/2019 2:15 PM CDT 03/03/2019 3:29 PM CDT Narrative [facility] - 03/03/2019 3:56 PM CDT THE COLLECTION LOCATION IS [facility] OBS-01 Bonita Moreno [employer]STREAM [employer]OM[employer]URING TECHNICIAN LAB BLOOD ORDERABLES Final Result [facility] Department of Laboratories [place], [place] [id number] * (ABNORMAL) POCT glucose (03/03/2019 12:28 PM CDT) Pathologist [facility] Glucose, POC 240(H) 70 - 199 mg/dL [facility] Blood specimen (specimen) 03/03/2019 12:28 PM CDT 03/03/2019 12:28 PM CDT us Peter Styles Jr., MD LAB POCT ORDERABLES - DEVICE Final Result Performing Organization Address [facility] de Phone Number [facility] [place] [address] * (ABNORMAL) POCT glucose (03/03/2019 10:56 AM CDT) Glucose, POC 205(H) 70 - 199 mg/dL [facility] Blood specimen (specimen) 03/03/2019 10:56 AM CDT 03/03/2019 10:56 AM CDT us Peter Styles Jr., MD LAB POCT ORDERABLES - DEVICE Final Result Performing Organization Address [facility] Phone Number [facility] [place] [address] * POCT glucose (03/03/2019 9:35 AM CDT) Glucose, POC 193 70 - 199 mg/dL [facility] Blood specimen (specimen) 03/03/2019 9:35 AM CDT 03/03/2019 9:35 AM CDT Peter Styles Jr., MD LAB POCT ORDERABLES - DEVICE Final Result Performing Organization Address [facility] de Phone Number [facility] [place] [address] * (ABNORMAL) Basic metabolic panel (03/03/2019 7:45 AM CDT) Sodium 136 135 - 145 mmol/L [facility] Potassium, pl 4.0 3.3 - 4.9 mmol/L [facility] Comment:Hemolyzed; (+++); po tassium value may be falsely elevated by as much as 0.6 - 1.0 mmol/L. Suggest redraw and reanalysis. Chloride 103 97 - 110 mmol/L [facility] CO2 22 22 - 32 mmol/L [facility] Anion gap 12 2 - 15 mmol/L [facility] BUN 14 8 - 25 mg/dL [facility] Creatinine 0.74(L) 0.80 - 1.30 mg/dL [facility] Glucose 156 70 - 199 mg/dL [facility] Comment: Interpretive Data Fasting glucose [...] interpretive data was last revised 2017. Calcium 8.9 8.5 - 10.3 mg/dL [facility] Blood specimen (specimen) 03/03/2019 7:45 AM CDT 03/03/2019 8:01 AM CDT Narrative [facility] - 03/03/2019 8:36 AM CDT THE COLLECTION LOCATION IS [facility] OBS-01 us Hi Dan MD LAB BLOOD ORDERABLE S Final Result [facility] [place] [address] * (ABNORMAL) POCT ketone, fingerstick (03/03/2019 7:38 AM CDT) Ketones, Blood, POC 0.8(A) 0.1 - 0.5 mmol/L Blood specimen (specimen) 03/03/2019 7:38 AM CDT us Bonita Moreno NP POINT OF CARE TEST ORDERABL ES Final Result * POCT glucose (03/03/2019 7:32 AM CDT) Glucose, POC 160 70 - 199 mg/dL [facility] Blood specimen (specimen) 03/03/2019 7:32 AM CDT 03/03/2019 7:32 AM CDT us Nita Palacios MD LAB POCT ORDERABLES - DEV ICE Final Result Performing Organization Address City/[facility]/ZIP Co de Phone Number [facility] Department [place] [address] * (ABNORMAL) Potassium, whole blood (03/03/2019 6:34 AM CDT) [facility] Potassium, bld 3.2(L) 3.3 - 4.9 mmol/L [facility] Blood specimen (specimen) 03/03/2019 6:34 AM CDT 03/03/2019 6:41 AM CDT Narrative [facility] - 03/03/2019 6:47 AM CDT THE BJ COLLECTION LOCATION IS [facility] OBS-01 us Bonita Moreno DOWNSTREAM BIOM[employer]UFA[employer]URING TECHNICIAN LAB BLOOD ORDERABLES Final Result Performing Organization Address [facility] Co de Phone Number [facility] Department [place] [address] * POCT glucose (03/03/2019 6:30 AM CDT) [facility] Signature Glucose, POC 152 70 - 199 mg/dL [facility] Blood specimen (specimen) 03/03/2019 6:30 AM CDT 03/03/2019 6:30 AM CDT us Charles Bey MD LAB POCT ORDERABLES - DEV ICE Final Result Performing Organization Address City/[facility] Co de Phone Number [facility] Department [place] [address] * POCT glucose (03/03/2019 5:33 AM CDT) Glucose, POC 162 70 - 199 mg/dL [facility] Blood specimen (specimen) 03/03/2019 5:33 AM CDT 03/03/2019 5:33 AM CDT Charles Bey MD LAB POCT ORDERABLES - DEV ICE Final Result Performing Organization Address City/[facility]/ZIP Co de Phone Number [facility] [place] [place] [address] * (ABNORMAL) POCT glucose (03/03/2019 4:30 AM CDT) [facility] Glucose, POC 203(H) 70 - 199 mg/dL [facility] Blood specimen (specimen) 03/03/2019 4:30 AM CDT 03/03/2019 4:30 AM CDT Result [facility] Mari Rick MD LAB POCT ORDERABLES - ARJUN CE Final Result Performing Organization Address City/[facility] Co de Phone Number [facility] [place] [place] [address] * Influenza A/B and RSV PCR Nasopharyngeal (03/03/2019 3:13 AM CDT) [facility] Influenza A RNA Not Detected Not Detected [facility] Influenza B RNA Not Detected Not Detected [facility] RSV RNA Not Detected Not Detected [facility] Comment: Interpretive Data Testing performed by [facility] ([phone]). This test is performed using the [employer] Xpert Flu/RSV Assay. ??This is a multiplex, real-time reverse transcriptase PCR assay that detects influenza A, influenza B,and respiratory syncytial virus RNA. ??This assay has been cleared by the [place] Food and Drug Administration, and its performance characteristics have been verified by the [facility]. Interpretive Data last revised 2018 Nasopharyngeal 03/03/2019 3: 13 AM CDT 03/03/2019 3:50 AM CDT Narrative [facility] - 03/03/2019 4:23 AM CDT THE COLLECTION LOCATION IS [facility] OBS-01 Hi Dan MD LAB MICROBIOLOGY - GENERAL ORDERABLES Final Result [facility] [place] [address] * (ABNORMAL) Basic metabolic panel (03/03/2019 3:13 AM CDT) Sodium 133(L) 135 - 145 mmol/L [facility] Potassium, pl 3.5 3.3 - 4.9 mmol/L [facility] Comment:Hemolyzed; (+++); po tassium value may be falsely elevated by as much as 0.6 - 1.0 mmol/L. Suggest redraw and reanalysis. Chloride 98 97 - 110 mmol/L [facility] CO2 23 22 - 32 mmol/L [facility] Anion gap 12 2 - 15 mmol/L [facility] BUN 15 8 - 25 mg/dL [facility] Creatinine 0.87 0.80 - 1.30 mg/dL [facility] Glucose 218(H) 70 - 199 mg/dL [facility] Comment: Interpretive Data Fasting glucose [...] 2017. Calcium 8.7 8.5 - 10.3 mg/dL [facility] Blood specimen (specimen) 03/03/2019 3:13 AM CDT 03/03/2019 3:38 AM CDT Narrative [facility] - 03/03/2019 4:10 AM CDT THE BJ COLLECTION LOCATION IS [facility] OBS-01 us Hi Dan MD LAB BLOOD ORDERABLE S Final Result Performing Organization Address [facility] Co de Phone Number [facility] [place] [address] * (ABNORMAL) POCT glucose (03/03/2019 3:02 AM CDT) Glucose, POC 233(H) 70 - 199 mg/dL [facility] Blood specimen (specimen) 03/03/2019 3:02 AM CDT 03/03/2019 3:02 AM CDT Mari Rick MD LAB POCT ORDERABLES - ARJUN CE Final Result Performing Organization Address [facility] [place] [address] * (ABNORMAL) POCT glucose (03/03/2019 2:05 AM CDT) Glucose, POC 277(H) 70 - 199 mg/dL [facility] Blood specimen (specimen) 03/03/2019 2:05 AM CDT 03/03/2019 2:05 AM CDT us Mari Rick MD LAB POCT ORDERABLES - ARJUN CE Final Result Performing Organization Address [facility] Co de Phone Number [facility] [place] [address] * (ABNORMAL) POCT glucose (03/03/2019 1:01 AM CDT) Glucose, POC 276(H) 70 - 199 mg/dL [facility] Blood specimen (specimen) 03/03/2019 1:01 AM CDT 03/03/2019 1:01 AM CDT Kenroy Farr MD LAB POCT ORDERABLES - ARJUN CE Final Result Performing Organization Address [facility] Co de Phone Number [facility] Department [place] [address] * (ABNORMAL) POCT glucose (03/03/2019 12:02 AM CDT) [facility] Glucose, POC 351(H) 70 - 199 mg/dL [facility] Glucose comment 1 Doctor Notified [facility] Blood specimen (specimen) 03/03/2019 12:02 AM CDT 03/03/2019 12:02 AM CDT Kenroy Farr MD LAB POCT ORDERABLES - ARJUN CE Final Result Performing Organization Address [facility] Co de Phone Number [facility] Department [place] [address] * (ABNORMAL) Basic metabolic panel (03/02/2019 11:15 PM CDT) [facility] Sodium 131(L) 135 - 145 mmol/L [facility] Potassium, pl 3.6 3.3 - 4.9 mmol/L [facility] Comment:Hemolyzed; (+++); po tassium value may be falsely elevated by as much as 0.6 - 1.0 mmol/L. Suggest redraw and reanalysis. Chloride 96(L) 97 - 110 mmol/L [facility] CO2 13(L) 22 - 32 mmol/L [facility] Anion gap 22(H) 2 - 15 mmol/L [facility] BUN 16 8 - 25 mg/dL [facility] Creatinine 0.86 0.80 - 1.30 mg/dL [facility] Glucose 297(H) 70 - 199 mg/dL [facility] Comment: Interpretive Data Fasting glucose [...] 2017. Calcium 8.7 8.5 - 10.3 mg/dL [facility] Blood specimen (specimen) 03/02/2019 11:15 PM CDT 03/02/2019 11:21 PM CDT Kenroy Farr MD LAB BLOOD ORDERABLES Final Result [facility] [place] [address] * Troponin I (03/02/2019 11:15 PM CDT) Troponin I <0.03 0.00 - 0.03 ng/mL [facility] Comment: Interpretive Data: Normal plasma Troponin I concentrations can reach 1 ng/mL in the first two weeks of life and slowly decrease to adult levels (<0.03 ng/mL) by the age of 3 months. > 3 months ??<0.03 ng/mL > or = 18 years Serial determinations are recommended for the diagnosis of myocardial infarction. ??Temporal rise and fall are consistent with myocardial infarction when at least one value is above the 99th percentile upper reference limit for Troponin assay. References: 1. Clin Chem 2013;59:[id number] 2. [employer] of [employer] of Cardiology 2012;60:1581-98 Current Interpretive Data Last Revised Date: 2017. Blood specimen (specimen) 03/02/2019 11:15 PM CDT 03/02/2019 11:21 PM CDT Narrative [facility] - 03/03/2019 1:06 AM CDT THE COLLECTION LOCATION IS [facility] ED2-23 Windy Mitchell MD LAB BLOOD ORD ERABLES Edited Result - Final Performing Organization Address City/[facility]/ZIP Co de Phone Number [facility] [place] [address] * (ABNORMAL) POCT glucose (03/02/2019 11:08 PM CDT) Glucose, POC 320(H) 70 - 199 mg/dL [facility] Blood specimen (specimen) 03/02/2019 11:08 PM CDT 03/02/2019 11:08 PM CDT us Kenroy Farr MD LAB POCT ORDERABLES - ARJUN CE Final Result Performing Organization Address [facility] de Phone Number [facility] Department [place] [address] * (ABNORMAL) POCT glucose (03/02/2019 10:14 PM CDT) Glucose, POC 378(H) 70 - 199 mg/dL [facility] Blood specimen (specimen) 03/02/2019 10:14 PM CDT 03/02/2019 10:14 PM CDT us Kenroy Farr MD LAB POCT ORDERABLES - ARJUN CE Final Result Performing Organization Address [facility] de Phone Number [facility] [place] [address] * DE CRITICAL CARE ILL/INJURED PATIENT INIT 30-74 MIN, DE CRITICAL CARE ILL/INJURED PATIENT ADDL 30 MIN (03/02/2019 10:02 PM CDT) Narrative Kenroy Farr MD - 03/02/2019 10:02 PM CDT Kenroy Farr MD ? 03/02/2019 10:03 PM Critical Care Performed by: Kenroy Farr MD Authorized by: Kenroy Farr MD Critical care provider statement: As reflected [...] by me providing the following: ? continuous telemetry and resuscitation with fluids ?? Insulin infusion ?? I provided emergent necessary critical care [...] time documenting in the medical record. I admitted this patient to an Intensive Care unit (ICU) and discussed management with the admitting team. us Kenroy Farr MD IN CLINIC/BEDSIDE ORDERABL ES Final Result * Pro B-type natriuretic peptide (03/02/2019 9:38 PM CDT) NT-proBNP <50 <=300 pg/mL TRACIE PAZ Comment: Interpretive Comments: A. Dyspnea in Acute Care Setting All Ages: ?< 300 pg/ml, acute heart failure unlikely. < 50 yrs: ?300 - 450 pg/ml, further investigation warranted. ? > 450 pg/ml, acute heart failure likely. 50 - 74 yrs: ? 300 - 900 pg/ml, further investigation warranted. ? > 900 pg/ml, acute heart failure likely . > or = 75 yrs: ? 450 - 1800 pg/ml, further investigation warranted. ? > 1800 pg/ml, acute heart failure likely. B. Non-acute Setting < 75 yrs ? < 125 pg/ml, rules out heart failure. ? > or = 125 pg/ml, further investigation warranted. > or = 75 yrs ?< 450 pg/ml, rules out heart failure. ? > or = 450 pg/ml, further investigation warranted. - Knowledge of each individual patient's NT-proBNP range may be more useful than using similar cut-points for every patient. Please note that marked elevations in NT-proBNP levels may be observed in state other than Left Ventricular Congestive Failure, including: acute coronary syndromes, right heart strain/failure (including pulmonary embolism and cor pulmonale), critical illness, renal failure, as well as advanced age. - References: 1. Bianca NAIK et.al. Eur Heart J. 2006:27:330-337. 2. Caleb RW, Shaila FELDMAN. J. AM Butch Cardiol: Cardiovasc Imag. 2009;2: 216- 225. Interpretive Data Last Revised Date: 2017. Blood specimen (specimen) 03/02/2019 9:38 PM CDT 03/02/2019 9:59 PM CDT Narrative [facility] - 03/02/2019 10:32 PM CDT THE COLLECTION LOCATION IS [facility] us Windy Mitchell MD LAB BLOOD ORD ERABLES Final Result [facility] Department [place] [address] * (ABNORMAL) ECG 12-LEAD (03/02/2019 9:37 PM CDT) Narrative [facility] - 03/02/2019 9:37 PM CDT Kenroy Farr MD ? 03/02/2019 ??9:37 PM ECG 12 lead Date/Time: 03/02/2019 9:37 PM Performed by: Kenroy Farr MD Authorized by: Windy Miller MD Rate: ??ECG rate: ??98 ??ECG rate assessment: normal ?? Rhythm: ??Rhythm: sinus rhythm ?? Ectopy: ??Ectopy: none ?? QRS: ??QRS axis: ??Normal ??QRS intervals: ??Wide Conduction: ??Conduction: abnormal ?Abnormal conduction: non-specific intraventricular conduction delay ?? ST segments: ??ST segments: ??Normal T waves: ??T waves: inverted ?Inverted: ??III and aVF Q waves: ??Q waves: ??III and aVF Previous ECG: ??Previous ECG: ??Compared to current ??Date of previous ECG: ??03/02/2019 ??Similarity: ??No change Interpretation: ??Interpretation: abnormal ?? Recommended Follow-up: ??Recommended follow up: further workup in the ED ?? Procedure Note Kenroy Farr MD - 03/02/2019 9:37 PM CDT Procedure ECG 12 lead Date/Time: 03/02/2019 9:37 PM Performed by: Kenroy Farr MD Authorized by: Windy Miller MD Rate: ECG rate: 98 ECG rate assessment: normal Rhythm: Rhythm: sinus rhythm Ectopy: Ectopy: none QRS: QRS axis: Normal QRS intervals: Wide Conduction: Conduction: abnormal Abnormal conduction: non-specific intraventricular conduction delay ST segments: ST segments: Normal T waves: T waves: inverted Inverted: III and aVF Q waves: Q waves: III and aVF Previous ECG: Previous ECG: Compared to current Date of previous EC03/02/2019 Similarity: No change Interpretation: Interpretation: abnormal Recommended Follow-up: Recommended follow up: further workup in the ED Kenroy Farr MD 03/02/[id number] us Windy Mitchell MD ECG ORDERABLE S Final Result [facility] * (ABNORMAL) POCT glucose (03/02/2019 9:15 PM CDT) [facility] Signature Glucose, POC 369(H) 70 - 199 mg/dL [facility] Blood specimen (specimen) 03/02/2019 9:15 PM CDT 03/02/2019 9:15 PM CDT Kenroy Farr MD LAB POCT ORDERABLES - ARJUN CE Final Result [facility] Department [place] [address] * (ABNORMAL) Urinalysis, microscopic only (03/02/2019 8:03 PM CDT) WBC, ur 0-5 0 - 5 /HPF [facility] RBC, ur 0-2 0 - 2 /HPF [facility] Epithelial cells, squamous, ur 1-5 0 - 5 /HPF [facility] Mucous, ur Present(A) [facility] Urine 03/02/2019 8:03 PM CDT 03/02/2019 8:07 PM CDT Windy Mitchell MD LAB URINE ORD ERABLES Final Result [facility] Department [place] [address] * (ABNORMAL) Urinalysis reflex to microscopic (03/02/2019 8:03 PM CDT) Color, ur Straw Yellow [facility] Clarity, ur Clear Clear [facility] Specific gravity, ur 1.030(H) 1.010 - 1.025 [facility] pH, urine 6 [facility] Protein, ur ql 3+(A) Negative [facility] Glucose, ur ql 3+(A) Negative [facility] Ketones, ur 2+(A) Negative [facility] Bilirubin, ur Negative Negative [facility] Blood, ur 1+(A) Negative [facility] Urobilinogen, ur <2.0 <2.0 mg/dL [facility] Nitrite, ur Negative Negative [facility] Leukocyte esterase, ur Negative Negative [facility] Urine 03/02/2019 8:03 PM CDT 03/02/2019 8:07 PM CDT Narrative [facility] - 03/02/2019 8:17 PM CDT THE BJ COLLECTION LOCATION IS [place] [address] Urine pH is affected by diet, medications, systemic acid-base disturbances, and renal tubular function. ??pH may affect urinary stone formation. ??For example, urine pH below 6.0 may help reduce the tendency for calcium phosphate stones and pH greater than 6.0 may reduce the tendency for uric acid stone formation. Source: [facility] [employer]. Last revised 05-16-2017 Windy Mitchell MD LAB URINE ORD ERABLES Final Result Performing Organization Address [facility] Co de Phone Number [facility] [place] [place] [address] * (ABNORMAL) POCT glucose (03/02/2019 8:01 PM CDT) Glucose, POC 472(C) 70 - 199 mg/dL [facility] Glucose comment 1 Glu2: [facility] Blood specimen (specimen) 03/02/2019 8:01 PM CDT 03/02/2019 8:01 PM CDT Notinfile Unknown LAB POCT ORDERABLES - DEVICE F inal Result Performing Organization Address [facility] de Phone Number [facility] [place] [place] [address] * (ABNORMAL) Blood gas, venous (03/02/2019 6:56 PM CDT) pH, Venous 7.34 7.32 - 7.43 [facility] PCO2, Venous 33(L) 40 - 50 mmHg [facility] PO2, Venous 108 mmHg [facility] Comment: Interpretive Data No Reference Range Established Current Interpretive Data was last revised on 2017. HCO3 Venous, Calculated 18(L) 20 - 30 mmol/L [facility] BE, venous -7 mmol/L [facility] Comment: Interpretive Data No Reference Range Established Current Interpretive Data was last revised on 2017. Blood specimen (specimen) 03/02/2019 6:56 PM CDT 03/02/2019 7:06 PM CDT Narrative [facility] - 03/02/2019 7:09 PM CDT THE BJ COLLECTION LOCATION IS [facility] ED2-23 Kenroy Farr MD LAB BLOOD ORDERABLES Final Result [facility] Department [place] [address] * XR Chest Pa Lateral 2 Vw (03/02/2019 6:39 PM CDT) Anatomical Region Laterality Modality Body, Chest N/A Computed Radiogr aphy 03/02/2019 6:42 PM CDT Impressions 03/03/2019 10:32 AM CDT Comparison made to exam dated 06/17/2017. Lung volumes are small. ??The lungs are clear, no edema or pneumonia. No pneumothorax or pleural effusion. The cardiomediastinal silhouette is normal. Dictated by: Wilder Marques The radiology attending physician has personally reviewed this study, and had reviewed and/or edited this written report and agrees with it. Electronically signed by: Glenn Martinez M.D. Narrative 03/03/2019 10:32 AM CDT EXAMINATION: 2 view chest radiograph Procedure Note Glenn Martinez MD - 03/03/2019 EXAMINATION: 2 view chest radiograph IMPRESSION: Comparison made to exam dated 06/17/2017. Lung volumes are small. The lungs are clear, no edema or pneumonia. No pneumothorax or pleural effusion. The cardiomediastinal silhouette is normal. Dictated by: Wilder Marques The radiology attending physician has personally reviewed this study, and had reviewed and/or edited this written report and agrees with it. Electronically signed by: Glenn Martinez M.D. Kenroy Farr MD IMG XR PROCEDURES Final Re sult * (ABNORMAL) POCT ketone, fingerstick (03/02/2019 6:32 PM CDT) Ketones, Blood, POC 3.4(A) 0.1 - 0.5 mmol/L Blood specimen (specimen) 03/02/2019 6:32 PM CDT Wnidy Mitchell MD POINT OF CARE TEST ORDERABLES Final Result * (ABNORMAL) POCT glucose (03/02/2019 6:28 PM CDT) Pathologist [facility] Glucose, POC 578(C) 70 - 199 mg/dL [facility] Glucose comment 1 Glu2: [facility] Blood specimen (specimen) 03/02/2019 6:28 PM CDT 03/02/2019 6:28 PM CDT Notinfile Unknown LAB POCT ORDERABLES - DEVICE F inal Result Performing Organization Address [facility]/ZIP Co de Phone Number [facility] Department [place] [address] * Potassium, whole blood (03/02/2019 6:25 PM CDT) [facility] Potassium, bld 4.6 3.3 - 4.9 mmol/L [facility] Comment:Hemolyzed; potassium value may be falsely elevated by as much as 1.1 - 1.6 mmol/L. Suggest redraw and reanalysis. Blood specimen (specimen) 03/02/2019 6:25 PM CDT 03/02/2019 6:32 PM CDT Narrative [facility] - 03/02/2019 6:39 PM CDT THE COLLECTION LOCATION IS [facility] ED223 Result [facility] Windy Mitchell MD LAB BLOOD ORD ERABLES Final Result [facility] Department [place] [address] * (ABNORMAL) Hepatic function panel (03/02/2019 6:25 PM CDT) [facility] Bilirubin, total 0.5 0.1 - 1.2 mg/dL [facility] Bilirubin, direct See Comment 0.1 - 0.3 mg/dL [facility] Comment:CRDT; Hemolyzed spec imen Protein, pl 7.9 6.5 - 8.5 g/dL [facility] Albumin 4.2 3.5 - 5.0 g/dL [facility] Alk phos 137(H) 40 - 130 Units/L [facility] Comment:Hemolyzed; result ma y be falsely decreased. ALT See Comment 7 - 55 Units/L [facility] Comment:Credited; Hemolyzed Specimen AST See Comment 10 - 50 Units/L [facility] Comment:Credited, hemolyzed specimen. Blood specimen (specimen) 03/02/2019 6:25 PM CDT 03/02/2019 6:41 PM CDT Narrative [facility] - 03/02/2019 7:56 PM CDT THE COLLECTION LOCATION IS us Edwin Willams MD LAB BLOOD ORDERABLES Final Resul t [facility] [place] [address] * (ABNORMAL) ECG 12-LEAD (03/02/2019 5:59 PM CDT) Narrative [facility] - 03/02/2019 5:59 PM CDT Edwin Willams MD ? 03/02/2019 ??6:00 PM ECG 12 lead Date/Time: 03/02/2019 5:59 PM Performed by: Edwin Willams MD Authorized by: Edwin Willams MD Rate: ??ECG rate: ??98 ??ECG rate assessment: tachycardic ?? Rhythm: ??Rhythm: sinus tachycardia ?? Ectopy: ??Ectopy: none ?? QRS: ??QRS axis: ??Normal Conduction: ??Conduction: normal ?? ST segments: ??ST segments: ??Normal T waves: ??T waves: inverted ?Inverted: ??III and aVF Q waves: ??Q waves: ??III and aVF Previous ECG: ??Previous ECG: ??Compared to current ??Date of previous ECG: ??12/06/2014 ??Comparison ECG info: ??New TWI ??Similarity: ??Changes noted Interpretation: ??Interpretation: abnormal ?? Recommended Follow-up: ??Recommended follow up: further workup in the ED ?? Procedure Note Edwin Willams MD - 03/02/2019 5:59 PM CDT Procedure ECG 12 lead Date/Time: 03/02/2019 5:59 PM Performed by: Edwin Willams MD Authorized by: Edwin Willams MD Rate: ECG rate: 98 ECG rate assessment: tachycardic Rhythm: Rhythm: sinus tachycardia Ectopy: Ectopy: none QRS: QRS axis: Normal Conduction: Conduction: normal ST segments: ST segments: Normal T waves: T waves: inverted Inverted: III and aVF Q waves: Q waves: III and aVF Previous ECG: Previous ECG: Compared to current Date of previous EC12/06/2014 Comparison ECG info: New TWI Similarity: Changes noted Interpretation: Interpretation: abnormal Recommended Follow-up: Recommended follow up: further workup in the ED Edwin Willams MD 03/02/19 1800 us Kenroy Farr MD ECG ORDERABLES Final Resu lt Performing Organization Address City/[facility]/ZIP Co de Phone Number [facility] * (ABNORMAL) Hemoglobin A1c (03/02/2019 5:57 PM CDT) Hgb A1C 9.3(H) 4.0 - 5.6 % [facility] Estimated Average Glucose 220 mg/dL [facility] Comment: The ADA recommends reporting an estimated Average Glucose (eAG) with all Hemoglobin A1c results using the equation derived from a study of 507 normal and diabetic adults. ??Minority populations were underrepresented and children were not included. ?? (Diabetes Care 31:9594-2677, 2008). ??The eAG is not equivalent to a fasting glucose. Blood specimen (specimen) 03/02/2019 5:57 PM CDT 03/02/2019 6:16 PM CDT us Peter Styles Jr., MD LAB BLOOD ORDERABLES Final Result Performing Organization Address City/[facility]/ZIP Co de Phone Number [facility] Department [place] [address] * Critical Result Callback Chemistry (03/02/2019 5:57 PM CDT) Date Notified [id number] [facility]ACIE [facility] Time Notified 20:01 TRACIE PAZ TestName glucose TRACIE PAZ Called/Read Back elvira PAZ Credentials MD TRACIE PAZ Called By artie HENDERSON Blood specimen (specimen) 03/02/2019 5:57 PM CDT 03/02/2019 6:12 PM CDT Clau Wallis NP LAB BLOOD ORDERABLES Final Result TRACIE [facility] [place] [address] * Differential, auto (03/02/2019 5:57 PM CDT) Neutrophil abs 5.2 1.7 - 6.5 K/cumm [facility] Imm gran abs 0.0 0.0 - 0.1 K/cumm [facility] Lymphocyte abs 1.8 0.8 - 3.3 K/cumm [facility] Monocyte abs 0.6 0.2 - 0.8 K/cumm [facility] Eosinophil abs 0.2 0.0 - 0.5 K/cumm [facility] Basophil abs 0.1 0.0 - 0.1 K/cumm [facility] Neutrophil pct 65.3 % [facility] Comment: Interpretive Data Percent cell count reference ranges are not reported, since discordance with absolute values may lead to misinterpretation of CBC data. Current Interpretive Data was last revised on 2017. Imm gran pct 0.6 % [facility] Comment: Interpretive Data Percent cell count reference ranges are not reported, since discordance with absolute values may lead to misinterpretation of CBC data. Current Interpretive Data was last revised on 2017. Lymphocyte pct 22.9 % [facility] Comment: Interpretive Data Percent cell count reference ranges are not reported, since discordance with absolute values may lead to misinterpretation of CBC data. Current Interpretive Data was last revised on 2017. Monocyte pct 7.8 % [facility] Comment: Interpretive Data Percent cell count reference ranges are not reported, since discordance with absolute values may lead to misinterpretation of CBC data. Current Interpretive Data was last revised on 2017. Eosinophil pct 2.7 % [facility] Comment: Interpretive Data Percent cell count reference ranges are not reported, since discordance with absolute values may lead to misinterpretation of CBC data. Current Interpretive Data was last revised on 2017. Basophil pct 0.7 % TRACIE [facility] Comment: Interpretive Data Percent cell count reference ranges are not reported, since discordance with absolute values may lead to misinterpretation of CBC data. Current Interpretive Data was last revised on 2017. Blood specimen (specimen) 03/02/2019 5:57 PM CDT 03/02/2019 6:13 PM CDT Clau Wallis NP LAB BLOOD ORDERABLES Final Result Performing Organization Address City/State/[facility] Co de Phone Number [facility] Department [place] [address] * Troponin I (03/02/2019 5:57 PM CDT) Troponin I <0.03 0.00 - 0.03 ng/mL TRACIE PAZ Comment: Interpretive Data: Normal plasma Troponin I concentrations can reach 1 ng/mL in the first two weeks of life and slowly decrease to adult levels (<0.03 ng/mL) by the age of 3 months. > 3 months ??<0.03 ng/mL > or = 18 years Serial determinations are recommended for the diagnosis of myocardial infarction. ??Temporal rise and fall are consistent with myocardial infarction when at least one value is above the 99th percentile upper reference limit for Troponin assay. References: 1. Clin Chem 2013;59:0710-1392 2. Journal of the [place] [employer] 2012;60:1581-98 Current Interpretive Data Last Revised Date: 2017. Blood specimen (specimen) 03/02/2019 5:57 PM CDT 03/02/2019 6:12 PM CDT Narrative [facility] - 03/02/2019 7:09 PM CDT THE COLLECTION LOCATION IS Kenroy Farr MD LAB BLOOD ORDERABLES Edite d Result - Final [facility] Department [place] [address] * (ABNORMAL) Basic metabolic panel (03/02/2019 5:57 PM CDT) Sodium 125(L) 135 - 145 mmol/L [facility] Potassium, pl See Comment 3.3 - 4.9 mmol/L [facility] Comment:CRDT; Grossly Hemoly zed sample; Unable to test. Chloride 87(L) 97 - 110 mmol/L [facility] CO2 15(L) 22 - 32 mmol/L [facility] Anion gap 23(H) 2 - 15 mmol/L [facility] BUN 21 8 - 25 mg/dL [facility] Creatinine 0.94 0.80 - 1.30 mg/dL [facility] Glucose 597(C) 70 - 199 mg/dL [facility] Comment: Interpretive Data Fasting glucose [...] 2017. Calcium 9.8 8.5 - 10.3 mg/dL [facility] Blood specimen (specimen) 03/02/2019 5:57 PM CDT 03/02/2019 6:12 PM CDT Narrative [facility] - 03/02/2019 7:59 PM CDT THE BJ COLLECTION LOCATION IS Kenroy Farr MD LAB BLOOD ORDERABLES Final Result [facility] Department [place] [address] * (ABNORMAL) CBC with auto differential (03/02/2019 5:57 PM CDT) [facility] WBC 8.0 3.8 - 9.9 K/cumm [facility] Hgb 16.2 13.0 - 17.5 g/dL [facility] Comment:Result may be due to compromised sample integrity, request redraw. Hct 42.3 38.9 - 50.3 % [facility] Plt 380 150 - 400 K/cumm [facility] MPV 10.5 9.1 - 12.3 fL [facility] RBC 5.35 4.30 - 5.80 M/cumm [facility] MCV 79.1(L) 81.3 - 96.4 fL [facility] MCH 30.3 27.1 - 33.3 pg [facility] Comment:Result may be due to compromised sample integrity, request redraw. MCHC 38.3(H) 32.3 - 35.7 g/dL [facility] Comment:Result may be due to compromised sample integrity, request redraw. RDW CV 11.9 11.1 - 14.9 % [facility] RDW SD 33.5(L) 35.7 - 48.1 fL [facility] NRBC abs 0.02(H) 0.00 - 0.01 K/cumm [facility] Blood specimen (specimen) (Blood, Venous) 03/02/2019 5:57 PM CDT 03/02/2019 6:13 PM CDT Narrative [facility] - 03/02/2019 7:26 PM CDT THE COLLECTION LOCATION IS us Kenroy Farr MD LAB BLOOD ORDERABLES Final Result [facility] [place] [address] * (ABNORMAL) POCT glucose (03/02/2019 5:52 PM CDT) [facility] Glucose, POC 591(C) 70 - 199 mg/dL [facility] Glucose comment 1 Doctor Notified [facility] Blood specimen (specimen) 03/02/2019 5:52 PM CDT 03/02/2019 5:52 PM CDT us Notinfile Unknown LAB POCT ORDERABLES - DEVICE F inal Result [facility] [place] [address] documented in this encounter Visit Diagnoses Diagnosis Diabetic ketoacidosis without coma associated with type 2 diabetes mellitus (CMS/HCC) (HCC)- Primary New onset type 2 diabetes mellitus (CMS/HCC) (HCC) Diabetic ketoacidosis without coma associated with other specified diabetes mellitus (HCC) Diabetic ketoacidosis (CMS/HCC) (HCC) Type II or unspecified type diabetes mellitus with ketoacidosis, not stated as uncontrolled Essential hypertension Unspecified essential hypertension documented in this encounter Administered Medications Inactive Administered Medications - up to 3 most recent administrations Medication Order MAR Action Action Date Dose Rate Site acetaminophen (TYLENOL) tablet 1,000 mg 1,000 mg, oral, Once, On Sat03/03/19 at 0554, For 1 dose Given 03/03/2019 5:56 AM CDT 1,000 mg atorvastatin (LIPITOR) tablet 10 mg 10 mg, oral, Daily, First dose on 03/07/19 at 1030 Given 03/07/2019 10:24 AM CDT 10 mg atorvastatin (LIPITOR) tablet 20 mg 20 mg, oral, Daily, First dose (after last modification) on 03/08/19 at 0900 Given 03/08/2019 8:46 AM [employer]ER 20 mg carvedilol (COREG) tablet 25 mg 25 mg, oral, 2 times daily, First dose on Sat03/03/19 at 0115 Given 03/08/2019 8:48 AM [employer]ER 25 mg Given 03/07/2019 10:09 PM CDT 25 mg Given 03/07/2019 8:54 AM CDT 25 mg dextrose (D10W) 10% bolus 250 mL 250 mL, intravenous, at 1,000 mL/hr, Administer over 15 Minutes, Every 15 min PRN, blood glucose less than 70 mg/dL and UNABLE to swallow/take PO glucose/juice., Starting on Sat03/04/19 at 0215, After treatment for hypoglycemia, recheck BG followed by treatment every 15 minutes until the BG is greater than 100 mg/dL. Then check BG 1 hour post treatment. If BG is less than 100 mg/dL, repeat Q15 minute BG checks and treatment. Call MD for each episode of hypoglycemia., Indications: hypoglycemic disorderIndications:hypo glycemic disorder dextrose (GLUTOSE) 40 % gel 15 g 15 g, oral, Every 15 min PRN, low blood sugar, blood glucose less than 70 mg/dL, Starting on Sat03/04/19 at 0215, If patient is alert and able to [...] Call MD for each episode of hypoglycemia. GLASS DRILLER STATES GLUTOSE-15 CONTAINS GLUCOSE 40% W/W (50% W/V), Indications: hypoglycemic disorderIndications:hypo glycemic disorder dextrose 5% infusion 100 mL/hr, intravenous, Continuous, Starting on Sat03/02/19 at 1812, Start when blood glucose less than 250 mg/dL and decrease rate of previous IV fluid infusion order. Notify MD when blood glucose less than 250 mg/dL and adjusting IV fluids. New Bag 03/03/2019 3:14 AM CDT 100 mL/hr 100 mL/hr enoxaparin (LOVENOX) syringe 40 mg 40 mg, subcutaneous, Every 12 hours scheduled, First dose on Sat03/04/19 at 0900, Indications: VTE ProphylaxisIndications:V TE Prophylaxis Given 03/08/2019 8:48 AM [employer] 40 mg Left Lower Abdomen Given 03/07/2019 10:09 PM CDT 40 mg L eft Upper Arm Given 03/07/2019 8:53 AM CDT 40 mg Ri ght Lower Abdomen hydroCHLOROthiazide (HYDRODIURIL) tablet 12.5 mg 12.5 mg, oral, Daily, First dose on Sat03/04/19 at 0900 Given 03/08/2019 8:48 AM [employer] 12.5 mg Given 03/07/2019 8:54 AM CDT 12.5 mg Given 03/06/2019 9:16 AM CDT 12.5 mg insulin glargine (LANTUS) injection 15 Units 15 Units, subcutaneous, Once, On Sat03/05/19 at 1100, For 1 dose, Do not mix with other insulins, Indications: Diabetes MellitusIndications:Diabetes Mellitus Given 03/05/2019 10:27 AM CDT 15 Units Righ t Upper Arm insulin glargine (LANTUS) injection 40 Units 40 Units, subcutaneous, Once, On Sat03/03/19 at 0432, For 1 dose, Do not mix with other insulins Given 03/03/2019 4:37 AM CDT 40 Units Lef t Upper Arm insulin glargine (LANTUS) injection 44 Units 44 Units, subcutaneous, Nightly, First dose on Sat03/04/19 at 0000, Do not mix with other insulins Given 03/04/2019 12:51 AM CDT 44 Units Left Upper Arm insulin glargine (LANTUS) injection 44 Units 44 Units, subcutaneous, 2 times daily, First dose (after last modification) on Sat03/04/19 at 1100, Do not mix with other insulins Given 03/04/2019 10:52 AM CDT 44 Units Left Upper Arm insulin glargine (LANTUS) injection 50 Units 50 Units, subcutaneous, 2 times daily, First dose (after last modification) on Sat03/04/19 at 2100, Do not mix with other insulins Given 03/05/2019 8:47 AM CDT 50 Units Left Upper Arm Given 03/04/2019 10:37 PM CDT 50 Units L eft Upper Arm insulin glargine (LANTUS) injection 65 Units 65 Units, subcutaneous, 2 times daily, First dose (after last modification) on Sat03/05/19 at 2100, Do not mix with other insulins Given 03/06/2019 9:18 AM CDT 65 Units Left Upper Arm Given 03/05/2019 10:13 PM CDT 65 Units L eft Lower Abdomen insulin lispro (HumaLOG) injection 1-3 Units 1-3 Units, subcutaneous, Nightly, First dose on Sat03/04/19 at 2100, Blood Sugar Mid Dose PM - PO patients 175 or less No insulin 176 - 200 1 unit 201 - 250 2 units 251 - 299 3 units Greater than 299 Call MD for hyperglycemia management instructions Do NOT hold for NPO status., Indications: Diabetes MellitusIndications:Diabetes Mellitus Given 03/06/2019 9:38 PM CDT 2 Units Left Upper Arm Given 03/04/2019 10:41 PM CDT 2 Units L eft Upper Arm insulin lispro (HumaLOG) injection 1-5 Units 1-5 Units, subcutaneous, 3 times daily with meals, First dose on Sat03/03/19 at 1200, Blood Sugar Mid Dose meal time - PO patients 139 or less No insulin 140 - 175 1 unit 176 - 200 2 unit 201 - 250 3 units 251 - 299 5 units Greater than 299 Call MD for hyperglycemia management instructions Do NOT hold for NPO status., Indications: Diabetes MellitusIndications:Diabetes Mellitus Given 03/03/2019 7:52 PM CDT 3 Units Right Lower Abdomen Given 03/03/2019 12:36 PM CDT 3 Units L eft Lower Abdomen insulin lispro (HumaLOG) injection 1-5 Units 1-5 Units, subcutaneous, 3 times daily with meals, First dose on Sat03/04/19 at 0800, Blood Sugar Mid Dose meal time - PO patients 139 or less No insulin 140 - 175 1 unit 176 - 200 2 unit 201 - 250 3 units 251 - 299 5 units Greater than 299 Call MD for hyperglycemia management instructions Do NOT hold for NPO status., Indications: Diabetes MellitusIndications:Diabetes Mellitus Given 03/07/2019 5:34 PM CDT 1 Units Right Upper Arm Given 03/07/2019 12:07 PM CDT 5 Units L eft Upper Arm Given 03/07/2019 8:55 AM CDT 1 Units Le ft Upper Arm insulin lispro (HumaLOG) injection 10 Units 10 Units, subcutaneous, Once, On Sat03/03/19 at 1558, For 1 dose Given 03/03/2019 4:08 PM CDT 10 Units Right Lower Abdomen insulin lispro (HumaLOG) injection 10 Units 10 Units, subcutaneous, Once, On Sat03/03/19 at 2218, For 1 dose Given 03/03/2019 10:33 PM CDT 10 Units Left Lower Abdomen insulin lispro (HumaLOG) injection 10 Units 10 Units, subcutaneous, 3 times daily with meals, First dose (after last modification) on Sat03/04/19 at 1200 Given 03/05/2019 12:31 PM CDT 10 Units Right Lower Abdomen Given 03/05/2019 8:47 AM CDT 10 Units Le ft Upper Arm insulin lispro (HumaLOG) injection 10 Units 10 Units, subcutaneous, 3 times daily with meals, First dose on 03/07/19 at 1645 Given 03/08/2019 8:49 AM [employer] 10 Units Left Lower Abdomen Given 03/07/2019 5:34 PM CDT 10 Units Le ft Upper Arm insulin lispro (HumaLOG) injection 15 Units 15 Units, subcutaneous, 3 times daily with meals, First dose (after last modification) on Sat03/05/19 at 1800 Given 03/05/2019 5:47 PM CDT 15 Units Right Upper Arm insulin lispro (HumaLOG) injection 4 Units 4 Units, subcutaneous, Once, On Sat03/05/19 at 1300, For 1 dose, Indications: HyperglycemiaIndication s:Hyperglycemia Given 03/05/2019 12:35 PM CDT 4 Units Right Lower Abdomen insulin regular (HumuLIN R, NovoLIN R) injection 10 Units 10 Units, intravenous, Once, On Sat03/02/19 at 1812, For 1 dose, Do NOT administer insulin bolus or infusion until K greater than 3.5 mg/dL., Indications: diabetic ketoacidosisIndications :diabetic ketoacidosis Given 03/02/2019 7:05 PM CDT 10 Units insulin regular (HumuLIN R, NovoLIN R) injection 3 Units 3 Units, intravenous, Once, On Sat03/04/19 at 0845, For 1 dose, Indications: HyperglycemiaIndication s:Hyperglycemia Given 03/04/2019 8:41 AM CDT 3 Units insulin regular (HumuLIN R, NovoLIN R) injection 5 Units 5 Units, intravenous, Once, On Sat03/03/19 at 1749, For 1 dose Given 03/03/2019 5:56 PM CDT 5 Units insulin regular (HumuLIN R, NovoLIN R) injection 5 Units 5 Units, intravenous, Once, On Sat03/03/19 at 2326, For 1 dose Given 03/03/2019 11:32 PM CDT 5 Units insulin regular (HumuLIN R, NovoLIN R) injection 5 Units 5 Units, intravenous, Once, On Sat03/04/19 at 1100, For 1 dose, Indications: HyperglycemiaIndication s:Hyperglycemia Given 03/04/2019 10:52 AM CDT 5 Units insulin regular (HumuLIN R, NovoLIN R) injection 5 Units 5 Units, intravenous, Once, On Sat03/06/19 at 0000, For 1 dose, Indications: HyperglycemiaIndication s:Hyperglycemia Given 03/05/2019 11:42 PM CDT 5 Units insulin regular in 0.9% sodium chloride 100 units/100 mL infusion (premix) 0-30 Units/hr (0-30 mL/hr), 1 units/mL, intravenous, Titrated, Starting on Sat03/02/19 at 1812, Until Sat03/03/19 at 1133, Indications: Diabetes Mellitus, ED PROTOCOL - For ED use only. Do NOT administer insulin bolus or infusion until K greater than 3.5 mg/dL. Initial Rate: : 10 units/hour. (0.1 units/kg/hr- [...] IV pump prior to connecting to patient., RoutineIndications:Diab etes Mellitus New Bag 03/03/2019 3:14 AM CDT 22.5 Units/hr 22.5 mL/hr Rate/Dose Change 03/03/2019 2:05 AM CDT 22.5 Units/hr 22.5 mL/hr Rate/Dose Change 03/03/2019 12:03 AM CDT 15 Units/hr 15 mL /hr insulin regular U-500 (HumuLIN R U-500) 500 unit/mL CONCENTRATED injection 60 Units 60 Units, subcutaneous, Once, On Sat03/06/19 at 1115, For 1 dose, Please administer 30 minutes prior to lunch, Indications: Diabetes Mellitus with Severe Insulin ResistanceIndications:Diabetes Mellitus with Severe Insulin Resistance Given 03/06/2019 1:28 PM CDT 60 Units Left Upper Arm insulin regular U-500 (HumuLIN R U-500) 500 unit/mL CONCENTRATED injection 80 Units 80 Units, subcutaneous, 3 times daily with meals, First dose on Sat03/06/19 at 1700, Please administer 30 minutes prior to meals, and only administer if patient has PO intake., Indications: Diabetes Mellitus with Severe Insulin ResistanceIndications:Diabetes Mellitus with Severe Insulin Resistance Given 03/08/2019 8:44 AM [employer]ER 80 Units Right Upper Arm Given 03/07/2019 5:31 PM CDT 80 Units Ri ght Upper Arm Given 03/07/2019 12:06 PM CDT 80 Units R ight Upper Arm lisinopril (PRINIVIL,ZESTRIL) tablet 5 mg 5 mg, oral, Daily, First dose on Sat03/04/19 at 1545 Given 03/08/2019 8:46 AM [employer] 5 mg Given 03/07/2019 8:54 AM CDT 5 mg Given 03/06/2019 9:17 AM CDT 5 mg metFORMIN (GLUCOPHAGE) tablet 500 mg 500 mg, oral, 2 times daily with meals (bkfst, dinner), First dose on Sat03/06/19 at 1800, Take with food Given 03/08/2019 8:48 AM [employer] 500 mg Given 03/07/2019 5:32 PM CDT 500 mg Given 03/07/2019 8:53 AM CDT 500 mg ondansetron (ZOFRAN) injection 4 mg 4 mg, intravenous, Administer over 2 Minutes, Every 6 hours PRN, nausea, vomiting, if not tolerating PO, Starting on Sat03/04/19 at 0215, Indications: Nausea and VomitingIndications:Nausea and Vomiting ondansetron ODT (ZOFRAN-ODT) disintegrating tablet 4 mg 4 mg, oral, Every 6 hours PRN, nausea, vomiting, Starting on Sat03/04/19 at 0215, Indications: Nausea and VomitingIndications:Nausea and Vomiting potassium chloride ER (KLOR-CON) extended release tablet 40 mEq 40 mEq, oral, Once, On Sat03/03/19 at 0801, For 1 dose, Do not crush, chew, cut, dissolve, open or otherwise manipulate tablet/capsule. Given 03/03/2019 8:49 AM CDT 40 mEq potassium chloride ER (KLOR-CON) extended release tablet 40 mEq 40 mEq, oral, Every 4 hours, First dose on 03/07/19 at 0315, For 2 doses, Do not crush, chew, cut, dissolve, open or otherwise manipulate tablet/capsule. Given 03/07/2019 8:53 AM CDT 40 mEq Given 03/07/2019 3:24 AM CDT 40 mEq potassium chloride ER (KLOR-CON) extended release tablet 40 mEq 40 mEq, oral, Once, On 03/08/19 at 0430, For 1 dose, Do not crush, chew, cut, dissolve, open or otherwise manipulate tablet/capsule. Given 03/08/2019 4:28 AM [employer] 40 mEq prochlorperazine (COMPAZINE) injection 10 mg 10 mg, intravenous, Administer over 2 Minutes, Once, On Sat03/03/19 at 0954, For 1 dose Given 03/03/2019 9:59 AM CDT 10 mg sodium chloride 0.45% infusion 150 mL/hr, intravenous, Continuous, Starting on Sat03/02/19 at 1812, Decrease rate to 50 mL/hr when blood glucose less than 250 mg/dL. New Bag 03/03/2019 3:14 AM CDT 50 mL/hr 50 mL/hr New Bag 03/02/2019 8:34 PM CDT 150 mL/hr 150 mL/hr sodium chloride 0.9% bolus 1,000 mL 1,000 mL, intravenous, Once, On Sat03/02/19 at 2129, For 1 dose New Bag 03/02/2019 9:52 PM CDT 1,000 mL sodium chloride 0.9% bolus 1,000 mL 1,000 mL, intravenous, at 1,000 mL/hr, Administer over 1 Hours, Once, On Sat03/03/19 at 2322, For 1 dose New Bag 03/03/2019 11:33 PM CDT 1,000 mL 1000 mL/hr sodium chloride 0.9% bolus 2,000 mL 2,000 mL, intravenous, at 1,000 mL/hr, Administer over 2 Hours, Once, On Sat03/02/19 at 1812, For 1 dose New Bag 03/02/2019 6:54 PM CDT 2,000 mL 1000 mL/hr sodium chloride 0.9% flush 0.5-20 mL 0.5-20 mL, intra-catheter, Every 8 hours scheduled, First dose on Sat03/04/19 at 0600, Flush volume based on line type and size. Given 03/08/2019 4:27 AM [employer] 10 mL Given 03/07/2019 10:10 PM CDT 10 mL Given 03/07/2019 1:52 PM CDT 10 mL sodium chloride 0.9% infusion 125 mL/hr, intravenous, Continuous, Starting on Sat03/03/19 at 1505 New Bag 03/03/2019 3:21 PM CDT 125 mL/hr 125 mL/hr documented in this encounter Discontinued Medications Medication Sig Discontinue Reason Start Date End Da te metFORMIN (GLUCOPHAGE) 500 mg tablet Take 1 tablet (500 mg total) by mouth 2 (two) times a day with meals. Stop Taking at Discharge 10/10/2017 03/08/2019 documented as of this encounter Active and Recently Administered Medications Due to Daylight Saving Time, this section may contain times in both CDT and [employer]. Scheduled Medication Order 03/06/2019 03/07/2019 03/08/2019 atorvastatin (LIPITOR) tablet 10 mg (CANCELED) 10 mg, oral, Daily, First dose on 03/07/19 at 1030 1024 (Given - Provider: Muna Rojas RN) atorvastatin (LIPITOR) tablet 20 mg 20 mg, oral, Daily, First dose (after last modification) on 03/08/19 at 0900 0846 (Given - Provider: Muna Rojas, BRYANNA) carvedilol (COREG) tablet 25 mg 25 mg, oral, 2 times daily, First dose on Sat03/03/19 at 0115 0917 (Given - Provider: Yahaira Martinez RN)2137 (Given - Provider: Amna Foreman RN) 0854 (Given - Provider: Muna Rojas RN)2209 (Given - Provider: Amna Foreman RN) 0848 (Given - Provider: Muna Rojas, BRYANNA) enoxaparin (LOVENOX) syringe 40 mg 40 mg, subcutaneous, Every 12 hours scheduled, First dose on Sat03/04/19 at 0900, Indications: VTE Prophylaxis 917 (Given - Provider: Yahaira Martinez, BRYANNA)2138 (Given - Provider: Amna Foreman RN) 0853 (Given - Provider: Muna Rojas RN)2208 (Given - Provider: Amna Foreman RN) 0848 (Given - Provider: Muna Rojas RN) hydroCHLOROthiazide (HYDRODIURIL) tablet 12.5 mg 12.5 mg, oral, Daily, First dose on Sat03/04/19 at 0900 0916 (Given - Provider: Yahaira Martinez RN) 0854 (Given - Provider: Muna Rojas RN) 0848 (Given - Provider: Muna Rojas RN) insulin glargine (LANTUS) injection 65 Units (CANCELED) 65 Units, subcutaneous, 2 times daily, First dose (after last modification) on Sat03/05/19 at 2100, Do not mix with other insulins 917 (Given - Provider: Yahaira Martinez RN) insulin lispro (HumaLOG) injection 1-3 Units 1-3 Units, subcutaneous, Nightly, First dose on Sat03/04/19 at 2100, Blood Sugar Mid Dose PM - PO patients 175 or less No insulin 176 - 200 1 unit 201 - 250 2 units 251 - 299 3 units Greater than 299 Call MD for hyperglycemia management instructions Do NOT hold for NPO status., Indications: Diabetes Mellitus 2137 (Given - Provider: Amna Foreman RN) 2052 (Not Given - Provider: Amna Foreman RN - Reason: Order parameters not met - Comment: [id number]) insulin lispro (HumaLOG) injection 1-5 Units 1-5 Units, subcutaneous, 3 times daily with meals, First dose on Sat03/04/19 at 0800, Blood Sugar Mid Dose meal time - PO patients 139 or less No insulin 140 - 175 1 unit 176 - 200 2 unit 201 - 250 3 units 251 - 299 5 units Greater than 299 Call MD for hyperglycemia management instructions Do NOT hold for NPO status., Indications: Diabetes Mellitus 0919 (Given - Provider: Yahaira Martinez RN)1327 (Given - Provider: Yahaira Martinez RN)1722 (Given - Provider: Angélica Higgins, RN) 0855 (Given - Provider: Muna Rojas, RN)1207 (Given - Provider: Muna Rojas, RN)1734 (Given - Provider: Muna Rojas, BRYANNA) 0834 (Not Given - Provider: Muna Rojas RN - Reason: Order parameters not met) insulin lispro (HumaLOG) injection 10 Units 10 Units, subcutaneous, 3 times daily with meals, First dose on Sat03/07/19 at 1645 1734 (Given - Provider: Muna Rojas RN) 0849 (Given - Provider: Muna Rojas, BRYANNA) insulin regular U-500 (HumuLIN R U-500) 500 unit/mL CONCENTRATED injection 60 Units (COMPLETED)(Linked Group 1) 60 Units, subcutaneous, Once, On Sat03/06/19 at 1115, For 1 dose, Please administer 30 minutes prior to lunch, Indications: Diabetes Mellitus with Severe Insulin Resistance 1328 (Given - Provider: Yahaira Martinez RN) insulin regular U-500 (HumuLIN R U-500) 500 unit/mL CONCENTRATED injection 80 Units(Linked Group 2) 80 Units, subcutaneous, 3 times daily with meals, First dose on Sat03/06/19 at 1700, Please administer 30 minutes prior to meals, and only administer if patient has PO intake., Indications: Diabetes Mellitus with Severe Insulin Resistance 1722 (Given - Provider: Angélica Higgins, BRYANNA) 0850 (Given - Provider: Muna Rojas, BRYANNA)1206 (Given - Provider: Muna Rojas, BRYANNA)1731 (Given - Provider: Muna Rojas, BRYANNA) 0844 (Given - Provider: Muna Rojas, BRYANNA) lisinopril (PRINIVIL,ZESTRIL) tablet 5 mg 5 mg, oral, Daily, First dose on Sat03/04/19 at 1545 0917 (Given - Provider: Yahaira Martinez RN) 0854 (Given - Provider: Muna Rojas RN) 0846 (Given - Provider: Muna Rojas RN) metFORMIN (GLUCOPHAGE) tablet 500 mg 500 mg, oral, 2 times daily with meals (bkfst, dinner), First dose on Sat03/06/19 at 1800, Take with food 1722 (Given - Provider: Angélica Higgins RN) 0853 (Given - Provider: Muna Rojas RN)1732 (Given - Provider: Muna Rojas RN) 0848 (Given - Provider: Muna Rojas RN) potassium chloride ER (KLOR-CON) extended release tablet 40 mEq (COMPLETED) 40 mEq, oral, Every 4 hours, First dose on 03/07/19 at 0315, For 2 doses, Do not crush, chew, cut, dissolve, open or otherwise manipulate tablet/capsule. 0324 (Given - Provider: Amna Foreman RN)0853 (Given - Provider: Muna Rojas RN) potassium chloride ER (KLOR-CON) extended release tablet 40 mEq (COMPLETED) 40 mEq, oral, Once, On 03/08/19 at 0430, For 1 dose, Do not crush, chew, cut, dissolve, open or otherwise manipulate tablet/capsule. 0428 (Given - Provider: Amna Foreman RN) potassium chloride ER (KLOR-CON) extended release tablet 40 mEq 40 mEq, oral, Once, On 03/08/19 at 1030, For 1 dose, Please give 4-6h after prior KCL dose Do not crush, chew, cut, dissolve, open or otherwise manipulate tablet/capsule. 1030 (Due) sodium chloride 0.9% flush 0.5-20 mL 0.5-20 mL, intra-catheter, Every 8 hours scheduled, First dose on Sat03/04/19 at 0600, Flush volume based on line type and size. 0614 (Given - Provider: Luz Wilson RN)1330 (Given - Provider: Yahaira Martinez RN)2139 (Given - Provider: Amna Foreman RN) 0508 (Given - Provider: Amna Foreman RN)1352 (Given - Provider: Muna Rojas RN)2210 (Given - Provider: Amna Foreman, RN) 6437 (Given - Provider: Amna Foreman, RN) PRN Medication Order 03/06/2019 03/07/2019 03/08/2019 acetaminophen (TYLENOL) tablet 650 mg 650 mg, oral, Every 4 hours PRN, 1st line for pain, fever greater than 38.3 C, Starting on Sat03/04/19 at 0215, Indications: Fever, Pain benzonatate (TESSALON) capsule 100 mg 100 mg, oral, 3 times daily PRN, cough, Starting on Sat03/04/19 at 0215, Do not crush, chew, cut, dissolve, open or otherwise manipulate tablet/capsule., Indications: Cough dextrose (D10W) 10% bolus 250 mL(Linked Group 3) 250 mL, intravenous, at 1,000 mL/hr, Administer over 15 Minutes, Every 15 min PRN, blood glucose less than 70 mg/dL and UNABLE to swallow/take PO glucose/juice., Starting on Sat03/04/19 at 0215, After treatment for hypoglycemia, recheck BG followed by treatment every 15 minutes until the BG is greater than 100 mg/dL. Then check BG 1 hour post treatment. If BG is less than 100 mg/dL, repeat Q15 minute BG checks and treatment. Call MD for each episode of hypoglycemia., Indications: hypoglycemic disorder dextrose (GLUTOSE) 40 % gel 15 g(Linked Group 3) 15 g, oral, Every 15 min PRN, low blood sugar, blood glucose less than 70 mg/dL, Starting on Sat03/04/19 at 0215, If patient is alert and able to [...] Call MD for each episode of hypoglycemia. GLASS DRILLER STATES GLUTOSE-15 CONTAINS GLUCOSE 40% W/W (50% W/V), Indications: hypoglycemic disorder glucagon injection 1 mg 1 mg, intramuscular, Administer over 1 Minutes, Every 30 min PRN, low blood sugar, blood glucose less than 70 mg/dL AND no IV access AND unable to take PO glucose/jiuce., Starting on Sat03/04/19 at 021, After Glucagon is administered, position patient on [...] Hypoglycemia ondansetron (ZOFRAN) injection 4 mg(Linked Group 4) 4 mg, intravenous, Administer over 2 Minutes, Every 6 hours PRN, nausea, vomiting, if not tolerating PO, Starting on Sat03/04/19 at 214, Indications: Nausea and Vomiting ondansetron ODT (ZOFRAN-ODT) disintegrating tablet 4 mg(Linked Group 4) 4 mg, oral, Every 6 hours PRN, nausea, vomiting, Starting on Sat03/04/19 at 021, Indications: Nausea and Vomiting ramelteon (ROZEREM) tablet 8 mg 8 mg, oral, Nightly PRN, sleep, Starting on Sat03/04/19 at 021, Indications: Sleep-Onset Insomnia senna-docusate (PERICOLACE) 8.6-50 mg per tablet 2 tablet 2 tablet, oral, 2 times daily PRN, constipation, Starting on Sat03/04/19 at 0215, Indications: constipation sodium chloride 0.9% flush 0.5-20 mL 0.5-20 mL, intra-catheter, As needed, line care, Starting on Sat03/04/19 at 0215, Flush volume based on line type and size. Flush before and after each use. Linked Groups Order Group 1: insulin regular U-500 (HumuLIN R U-500) 500 unit/mL CONCENTRATED injection 60 Units (COMPLETED)Jump to med 60 Units, subcutaneous, Once, On Sat03/06/19 at 1115, For 1 dose, Please administer 30 minutes prior to lunch, Indications: Diabetes Mellitus with Severe Insulin Resistance And Consult to Diabetes Nurse Educator (CANCELED) Reason for consult: Other, Explanatory Comment: Insulin Teaching Group 2: insulin regular U-500 (HumuLIN R U-500) 500 unit/mL CONCENTRATED injection 80 UnitsJump to med 80 Units, subcutaneous, 3 times daily with meals, First dose on Sat03/06/19 at 1700, Please administer 30 minutes prior to meals, and only administer if patient has PO intake., Indications: Diabetes Mellitus with Severe Insulin Resistance And Consult to Diabetes Nurse Educator (CANCELED) Reason for consult: Other, Explanatory Comment: Insulin Teaching Group 3: dextrose (GLUTOSE) 40 % gel 15 gJump to med 15 g, oral, Every 15 min PRN, low blood sugar, blood glucose less than 70 mg/dL, Starting on Sat03/04/19 at 0215, If patient is alert and able to [...] Call MD for each episode of hypoglycemia. GLASS DRILLER STATES GLUTOSE-15 CONTAINS GLUCOSE 40% W/W (50% W/V), Indications: hypoglycemic disorder Or dextrose (D10W) 10% bolus 250 mLJump to med 250 mL, intravenous, at 1,000 mL/hr, Administer over 15 Minutes, Every 15 min PRN, blood glucose less than 70 mg/dL and UNABLE to swallow/take PO glucose/juice., Starting on Sat03/04/19 at 0215, After treatment for hypoglycemia, recheck BG followed by treatment every 15 minutes until the BG is greater than 100 mg/dL. Then check BG 1 hour post treatment. If BG is less than 100 mg/dL, repeat Q15 minute BG checks and treatment. Call MD for each episode of hypoglycemia., Indications: hypoglycemic disorder Group 4: ondansetron ODT (ZOFRAN-ODT) disintegrating tablet 4 mgJump to med 4 mg, oral, Every 6 hours PRN, nausea, vomiting, Starting on Sat03/04/19 at 0215, Indications: Nausea and Vomiting Or ondansetron (ZOFRAN) injection 4 mgJump to med 4 mg, intravenous, Administer over 2 Minutes, Every 6 hours PRN, nausea, vomiting, if not tolerating PO, Starting on Sat03/04/19 at 0215, Indications: Nausea and Vomiting documented in this encounter Orders Medications Ordered That Nsétor ht Not Have Been Administered Count Last Ordered Date First Ordered Date potassium chloride ER (KLOR- CON) extended release tablet 40 mEq 1 03/08/2019 insulin glargine (LANTUS) in jection 15 Units 1 03/06/2019 acetaminophen (TYLENOL) tablet 650 mg 1 benzonatate (TESSALON) capsule 100 mg 1 carvedilol (COREG) tablet 25 mg 1 9 dextrose (D10W) 10% bolus 250 mL 3 03/04/20 19 03/02/2019 dextrose (GLUTOSE) 40 % gel 15 g 3 03/04/20 19 03/02/2019 glucagon injection 1 mg 3 03/04/201902/04 insulin lispro (HumaLOG) injection 7 Units 1 03/04/2019 ondansetron (ZOFRAN) injection 4 mg 1 03/04 ondansetron ODT (ZOFRAN-ODT) disintegrating tablet 4 mg 1 03/04/2019 ramelteon (ROZEREM) tablet 8 mg 1 9 senna-docusate (PERICOLACE) 8.6-50 mg per tablet 2 tablet 1 03/04/2019 sodium chloride 0.9% flush 0.5-20 mL 1 02/05 insulin lispro (HumaLOG) inj ection 1-3 Units 1 03/03/2019 insulin regular (HumuLIN R, NovoLIN R) injection 3 Units 1 03/03/2019 potassium chloride 40 mEq/52 0 mL in sodium chloride 0.9% (premix) 40 mEq 1 03/02/2019 sodium chloride 0.9% bolus 1,000 mL 1 03/02 Lab Orders Without Results Count Last Ordered D ate First Ordered Date POCT GLUCOSE DEVICE 48 03/08/2019 03/02/20 19 HEMOGLOBIN A1C 1 03/03/2019 Diet Count Last Ordered Date First Orde red Date ADULT DISCHARGE DIET 1 03/08/2019 Nursing Count Last Ordered Date First Orde red Date DISCHARGE ACTIVITY 1 03/08/2019 DISCHARGE CALL PROVIDER 9 03/08/2019 DISCHARGE INSTRUCTIONS 1 03/08/2019 WEIGH PATIENT 1 03/04/2019 MISCELLANEOUS NURSING CARE ORDER (SPECIFY) 2 03/03/2019 NOTIFY PROVIDER (SPECIFY) 4 03/03/2019 NURSING COMMUNICATION 5 03/03/20192018 Consult Count Last Ordered Date First Orde red Date IP CONSULT TO NUTRITION SERVICES 1 03/06/20 19 IP CONSULT TO ARMATURE TESTER 1 9 IV Count Last Ordered Date First Orde red Date SALINE LOCK IV 1 03/02/2019 ADT Patient Update Count Last Ordered Date Firs t Ordered Date ED IP DECISION TO ADMIT 1 03/03/[address] IN ED OBSERVATION 1 03/02/2019 documented in this encounter Care Teams Animal Caregiver Relationship Specialty Start Date End Date Etelvina Del Cid MD [address] [address] PCP - General 08/14/16 03/10/19 documented as of this encounter
--- OUTSIDE RECORDS SUMMARY | 2024-05-10 17:16 | XMS_ITS | Encounter Summary ---
Author Organization [facility] Facility Care Team Providers Care Dispatcher Motor Vehicle Name Role Phone Unavailable Primary Care Provider Unavailabl e Encounter Details Date Type Department Care Team (Latest Contact Info) Description 03/28/2010 2:48 PM LMSW - 03/28/2010 11:59 PM LMSW Hospital Encounter [facility] Dietary counseling and surveillance; Obesity; Body mass index, pediatric, greater than or equal to 95th percentile for age Social History Tobacco Use Types Packs/Day Years Used Date Smoking Tobacco: Never Assessed Sex and Gender Information Value Date Recorded Sex Assigned at Not on file Legal Sex Male 5:01 AM LMSW Gender Identity Male 12/18/2017 12:38 PM CDT Sexual Orientation Not on file documented as of this encounter Plan of Treatment Not on file documented as of this encounter Visit Diagnoses Diagnosis Dietary counseling and surveillance Obesity Obesity, unspecified Body mass index, pediatric, greater than or equal to 95th percentile for age Body Mass Index, pediatric, greater than or equal to 95th percentile for age documented in this encounter
--- OUTSIDE RECORDS SUMMARY | 2024-05-10 17:16 | XMS_ITS | Encounter Summary ---
Author Organization [facility] Healthcare Address [address] [place] [address] Care Team Providers Care Ranch Hand Livestock Name Role Phone Jann Burrows MD Primary Care Provider [phone] Encounter Details Date Type Department Care Team (Late st Contact Info) Description 08/03/2019 Patient Self-T[address] [facility] HealthCare/ Physicians [address] [place] [address] Mychart, Generic Provider [address] [place] [address] Social History Tobacco Use Types Packs/Day Years Used Date Smoking Tobacco: Never Smokeless Tobacco: Never Alcohol Use Standard Drinks/Week Comments Yes 24 (1 standard drink = 0.6 oz pu re alcohol) CAGE negative. Case per week. 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
--- OUTSIDE RECORDS SUMMARY | 2024-05-10 17:16 | XMS_ITS | Encounter Summary ---
Author Organization [facility] Healthcare Address [address] [place] [address] Care Team Providers Care Boiler Welder Name Role Phone Jann Burrows MD Primary Care Provider [phone] Reason for Visit * Reason Comments Hospital Follow Up EDV BS 31 Encounter Details Date Type Department Care Team (Late st Contact Info) Description 05/27/2019 8:15 AM SENIOR NATIONAL ACCOUNT MANAGER Office Visit [facility] [address] [facility] [address] [place] [address] Evangelina Patel MD [address] [facility] [phone] [place] [address] Hypoglycemia (Primary Dx); Diabetic ketoacidosis without coma associated with other specified diabetes mellitus (CMS/HCC); Essential hypertension Discharge Disposition: Discharge to [...] file Legal Sex Male 5:01 AM SENIOR NATIONAL ACCOUNT MANAGER Gender Identity Male 12/18/2017 12:38 PM CDT Sexual Orientation Not on file 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 Not on file Not on file documented as of this encounter Last Filed Vital Signs Vital Sign Reading Time Taken Comments Blood Pressure 151/89 05/27/2019 8:10 AM SENIOR NATIONAL ACCOUNT MANAGER Pulse 70 05/27/2019 8:10 AM SENIOR NATIONAL ACCOUNT MANAGER Temperature - - Respiratory Rate 18 05/27/2019 8:10 AM SENIOR NATIONAL ACCOUNT MANAGER Oxygen Saturation 94% 05/27/2019 8:10 AM SENIOR NATIONAL ACCOUNT MANAGER Inhaled Oxygen Concentration - - Weight 215.1 kg (474 lb 4.8 oz) 05/27/2019 8:10 AM SENIOR NATIONAL ACCOUNT MANAGER Height 200.7 cm (6' 7 ) 05/27/2019 8:10 AM SENIOR NATIONAL ACCOUNT MANAGER Body Mass Index 53.43 05/27/2019 8:10 AM SENIOR NATIONAL ACCOUNT MANAGER documented in this encounter Patient Instructions * Patient Instructions* Shannan Zavala MD - 05/27/2019 8:15 AM SENIOR NATIONAL ACCOUNT MANAGER Images from the original note were not included. Please start taking 75 units of insulin three times a day for a week, then take 70 units three times daily afterwards. Follow up with your heart and endocrine doctors. Patient Education Hypertension EXECUTIVE SOUS CHEF: Hypertension is high blood pressure (BP). Your BP is the force of your blood moving against the santana of your arteries. Normal BP is less than 120/80. Prehypertension is between 120/80 and 139/89. Hypertension is 140/90 or higher. Hypertension causes your BP to get so high that your heart has to work much harder than normal. This can damage your heart. You can control hypertension with a healthy lifestyle or medicines. A controlled blood pressure helps protect your organs, such as your heart, lungs, brain, and kidneys. Common symptoms include the following: ?? Headache ?? Blurred vision ?? Chest pain ?? Dizziness or weakness ?? Trouble breathing ?? Nosebleeds Call 911 for any of the following: ?? You have discomfort in your chest that feels like squeezing, pressure, fullness, or pain. ?? You become confused or have difficulty speaking. ?? You suddenly feel lightheaded or have trouble breathing. ?? You have pain or discomfort in your back, neck, jaw, stomach, or arm. Seek care immediately if: ?? You have a severe headache or vision loss. ?? You have weakness in an arm or leg. Contact your healthcare provider if: ?? You feel faint, dizzy, confused, or drowsy. ?? You have been taking your BP medicine and your BP is still higher than your healthcare provider says it should be. ?? You have questions or concerns about your condition or care. Treatment for hypertension may include medicine to lower your BP and lower your cholesterol level. A low cholesterol level helps prevent heart disease and makes it easier to control your blood pressure. You may also need to make lifestyle changes. Take your medicine exactly as directed. Manage hypertension: Talk with your healthcare provider about these and other ways to manage hypertension: ?? Check your BP at home. Sit and rest for 5 minutes before you take your BP. Extend your arm and support it on a flat surface. Your arm should be at the same level as your heart. Follow the directions that came with your BP monitor. If possible, take at least 2 BP readings each time. Take your BP at least twice a day at the same times each day, such as morning and evening. Keep a record of your BP readings and bring it to your follow-up visits. Ask your healthcare provider what your BP should be. ?? Limit sodium (salt) as directed. Too much sodium can affect your fluid balance. Check labels to find low-sodium or cn-mpob-atact foods. Some low-sodium foods use potassium salts for flavor. Too much potassium can also cause health problems. Your healthcare provider will tell you how much sodium and potassium are safe for you to have in a day. He or she may recommend that you limit sodium to 2,300 mg a day. ?? Follow the meal plan recommended by your healthcare provider. A dietitian or your provider can give you more information on low-sodium plans or the DASH (Dietary Approaches to Stop Hypertension) eating plan. The DASH plan is low in sodium, unhealthy fats, and total fat. It is high in potassium, calcium, and fiber. ?? Exercise to maintain a healthy weight. Exercise at least 30 minutes per day, on most days of theweek. This will help decrease your blood pressure. Ask your healthcare provider about the best exercise plan for you. ?? Decrease stress. This may help lower your BP. Learn ways to relax, such as deep breathing or listening to music. ?? Limit alcohol. Women should limit alcohol to 1 drink a day. Men should limit alcohol to 2 drinksa day. A drink of alcohol is 12 ounces of beer, 5 ounces of wine, or 1?? ounces of liquor. ?? Do not smoke. Nicotine and other chemicals in cigarettes and cigars can increase your BP and also cause lung damage. Ask your healthcare provider for information if you currently smoke and need help to quit. E-cigarettes or smokeless tobacco still contain nicotine. Talk to your healthcare provider before you use these products. ?? Manage any other health conditions you have. Health conditions such as diabetes can increase your risk for hypertension. Follow your healthcare provider's instructions and take all your medicines as directed. Follow up with your healthcare provider as directed: You will need to return to have your BP checked and to have other lab tests done. Write down your questions so you remember to ask them during your visits. ?? 2017 [employer] Information is for End User's use only and may not be sold, redistributed or otherwise used for commercial purposes. All illustrations and images included in CareNotes?? are the copyrighted property of [employer] or [employer]. The above information is an maintenance aide only. It is not intended as medical advice for individual conditions or treatments. Talk to your doctor, nurse or pharmacist before following any medical regimen to see if it is safe and effective for you. OR NATIONAL ACCOUNT MANAGER OR NATIONAL ACCOUNT MANAGER documented in this encounter Ordered Prescriptions Prescription Sig Dispense Quantity Refills Last Filled Start Date End Date insulin regular U-500 (HumuLIN R U-500, Conc, Kwikpen) 500 unit/mL (3 mL) CONCENTRATED injection Inject 75 units three times daily with meals for a week, then inject 70 units three times daily. 40 mL 3 05/27/2019 0 lisinopril (PRINIVIL,ZESTRIL) 5 mg tabletIndications: Diabetic ketoacidosis without coma associated with other specified diabetes mellitus (HCC) Take 2 tablets (10 mg total) by mouth daily 180 tablet 3 05/27/2019 0 documented in this encounter Discharge Disposition Disposition Code Departure Means Destination Discharge to home or self care documented in this encounter Progress Notes * Shannan Zavala MD - 05/27/2019 8:15 AM CST CARLIN NOTE Patient ID: Geraldo Velez is a 23 y.o. male Current PCP: Jann Burrows MD SUBJECTIVE CHIEF COMPLAINT Chief Complaint Patient presents with ??? Hospital Follow Up EDV BS 31 HPI Geraldo Velez is a 23 y.o. male with hx of DM p/f hypoglycemia. Pt recent dx of DM in March. Seen by endocrinology since then and most recent regimen is metformin and 80 units of U500 TID. His blood sugars have been consistently in the 100-140 range. On Saturday, he had an episode of hypoglycemia which he does not remember. We do not have records for this as it was at [facility]. He notes waking up in the hospital on clear what happened while he was there. He does remember being at work or before and and notes that his coworkers noted that he passedout and had EMS called on him. He does not particularly remember any postictal period or tonic-clonic movements. His blood sugars since then have been consistently in the 100-140 range still. He has not had any other hypoglycemic episodes. He did not miss a meal at that time, have any ingestion or drug use, or any recent infection. 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 PAST MEDICAL HISTORY Past Medical History: Diagnosis Date ??? HTN (hypertension) ??? Metabolic syndrome ??? Morbid obesity with BMI of 50.0-59.9, adult ([facility]) 07/10/2017 ALLERGIES AND DRUG REACTIONS No Known Allergies SOCIAL AND FUNCTIONAL HISTORY Social History Socioeconomic History ??? Marital status: Single Spouse name: Not on file ??? Number of children: Not on file ??? Years of education: Not on file ??? Highest education level: Not on file Occupational History ??? 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 Financial resource strain: Not [...] file Gets together: Not on file Attends gnosticism service: Not on file Active member of [...] except for where noted in the HPI HOME MEDICATIONS HOME MEDICATIONS : atorvastatin (LIPITOR) 20 mg tablet blood glucose diagnostic (ONETOUCH ULTRA TEST) strip blood-glucose meter kit carvedilol (COREG) 25 mg tablet indapamide (LOZOL) 2.5 mg tablet insulin lispro (HumaLOG) 100 unit/mL injection insulin regular U-500 (HumuLIN R U-500, Conc, Kwikpen) 500 unit/mL (3 mL) CONCENTRATED injection lancets misc lisinopril (PRINIVIL,ZESTRIL) 5 mg tablet metFORMIN (GLUCOPHAGE) 500 mg tablet pen needle, diabetic (BD ULTRA-FINE RADHA PEN NEEDLE) 32 gauge x 5/32 needle OBJECTIVE VITALS BP 151/89 (05/27/19 0810) Temp Pulse 70 (05/27/19 0810) Resp 18 (05/27/19 0810) SpO2 94 % (05/27/19 0810) PHYSICAL EXAM Vitals reviewed. Constitutional: Well-developed and well-nourished. No acute distress. Obese Head: Normocephalic and atraumatic. HEENT: EOMI, PERRL, no scleral icterus, MMM. Acanthosis nigricans is present Neck: Normal range of motion. Neck supple. No thyromegaly present. No JVD Cardiovascular: RRR, No M/G/R Pulmonary/Chest: CTAB, No increased WOB Abdominal: Soft, NTND, Normoactive Bowel Sounds, No HSM, Non-peritoneal Musculoskeletal: Normal range of motion. No DIANE. No deformity Neurological: AO x 3, No Focal neurologic deficits Skin: Skin is warm and dry. Capillary refill takes less than 2 seconds. No rash noted. ASSESSMENT & PLAN ##############AMBJAR VISIT#################### Geraldo Velez is a 23 y.o. male who presents with hypoglycemia # Hypogylcemia - it is unclear what caused this episode of hypoglycemia. We have reached out to hisendocrinologist who advised To downtitrate his insulin to 75 for a week TID then 70 units TID. - Obtain CMP - Downtitrate insulin as above - F/U endocrinology # HTN - up titrate lisinopril to 10 mg p.o. q.d.. Will reach out to the patient's bus assistant regarding his carvedilol. He has a history of asymmetric septal hypertrophy, however were concerned thathis Coreg is masking his hypoglycemia symptoms. We will defer this to his bus assistant. -nurse visit in 2 weeks -up titrated lisinopril to 10 mg p.o. q.d. -BMP in 2 weeks All other issues per PCP Shannan Zavala MD Cosigned by Tess Arauz MD at 05/27/2019 9:21 AM SENIOR NATIONAL ACCOUNT MANAGER OR NATIONAL ACCOUNT MANAGER OR NATIONAL ACCOUNT MANAGER Associated attestation - Tess Arauz MD - 05/27/2019 9:21 AM SENIOR NATIONAL ACCOUNT MANAGER I have personally reviewed with the history, physical examination, laboratory studies and proposed management for Geraldo Velez. Together we formulated a clinical diagnosis for eachproblem and developed a plan for therapy during or immediately after his clinic visit. I agree withthe recommended plan of care. * Naz Bingham RN - 05/27/2019 8:15 AM CST Patient discharged to lab. Patient verbalized understanding of education and information about keeping blood sugar and blood pressure logs. All questions answered. OR NATIONAL ACCOUNT MANAGER documented in this encounter Plan of Treatment Not on file documented as of this encounter Results * (ABNORMAL) Hepatic function panel (05/27/2019 9:25 AM SENIOR NATIONAL ACCOUNT MANAGER) Bilirubin, total 0.3 0.1 - 1.2 mg/dL [facility] Bilirubin, direct <0.2 0.1 - 0.3 mg/dL [facility] Protein, pl 8.0 6.5 - 8.5 g/dL [facility] Albumin 4.7 3.5 - 5.0 g/dL [facility] Alk phos 61 40 - 130 Units/L [facility] ALT 69(H) 7 - 55 Units/L [facility] AST 41 10 - 50 Units/L [facility] Blood specimen (specimen) 05/27/2019 9:25 AM SENIOR NATIONAL ACCOUNT MANAGER 05/27/2019 10:18 AM SENIOR NATIONAL ACCOUNT MANAGER Shannan Zavala MD LAB BLOOD ORDERABLES Final Re sult [facility] Department [place] [address] * Basic metabolic panel (05/27/2019 9:25 AM SENIOR NATIONAL ACCOUNT MANAGER) Pathologist [facility] Sodium 141 135 - 145 mmol/L [facility] Potassium, pl 3.9 3.3 - 4.9 mmol/L [facility] Chloride 104 97 - 110 mmol/L [facility] CO2 28 22 - 32 mmol/L [facility] Anion gap 9 2 - 15 mmol/L [facility] BUN 17 8 - 25 mg/dL [facility] Creatinine 0.90 0.80 - 1.30 mg/dL [facility] Glucose 94 70 - 199 mg/dL [facility] Comment: Interpretive Data Fasting glucose >/= [...] 2017. Calcium 9.7 8.5 - 10.3 mg/dL [facility] Blood specimen (specimen) 05/27/2019 9:25 AM SENIOR NATIONAL ACCOUNT MANAGER 05/27/2019 10:18 AM SENIOR NATIONAL ACCOUNT MANAGER us Shannan Zavala MD LAB BLOOD ORDERABLES Final [facility] Department [place] [address] documented in this encounter Visit Diagnoses Diagnosis Hypoglycemia- Primary Hypoglycemia, unspecified Diabetic ketoacidosis without coma associated with other specified diabetes mellitus (HCC) Essential hypertension Unspecified essential hypertension documented in this encounter Discontinued Medications Medication Sig Discontinue Reason Start Date End Da te lisinopril (PRINIVIL,ZESTRIL) 5 mg tabletIndications:Diabeti c ketoacidosis without coma associated with other specified diabetes mellitus (HCC) Take 1 tablet (5 mg total) by mouth daily 03/19/2019 05/27/2019 insulin regular U-500 (HumuLIN R U-500, Conc, Kwikpen) 500 unit/mL (3 mL) CONCENTRATED injection Inject 80 units three times daily with meals 03/25/2019 05/27/2019 documented as of this encounter Care Teams Boiler Welder Relationship Specialty Start Date End Date Jann Burrows MD [address] [place] [address] [address] [place] [address] PCP - General Hematology 03/13/19 10/28/21 documented as of this encounter
--- OUTSIDE RECORDS SUMMARY | 2024-05-10 17:16 | XMS_ITS | Encounter Summary ---
Author Organization [facility] Address [address] [place] [address] Phone Care Team Providers Care Watch Band Assembler Name Role Phone Jann Burrows MD Primary Care Provider Encounter Details Date Type Department Care Team (Late st Contact Info) Description 03/20/2019 Telephone [facility] Endocrinology Metabolism and Lipid [address] [facility] 5[address] [place] [address] [place] [address] Che Duff LPN Social History Tobacco Use Types Packs/Day Years Used Date Smoking Tobacco: Never Smokeless Tobacco: Never Alcohol Use Standard Drinks/Week Comments Yes 24 (1 standard drink = 0.6 oz pu re alcohol) CAGE negative. Case per week. 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 He should take 80 units U500 three times daily. ERN KEEPER * Telephone Encounter - Che Duff LPN - 03/20/2019 2:25 PM CST Can you clarify the instruction for the U500? Your note says 90 units TID, but the script say 80 units on the U100. ERN KEEPER documented in this encounter Plan of Treatment Not on file documented as of this encounter Visit Diagnoses Not on filedocumented in this encounter Care Teams Watch Band Assembler Relationship Specialty Start Date End Date Jann Burrows MD [address] [facility] [address] [place] [address] PCP - General Hematology 03/13/19 10/28/21 documented as of this encounter
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
--- OUTSIDE RECORDS SUMMARY | 2024-05-10 17:16 | XMS_ITS | Encounter Summary ---
Author Organization [facility] Address [address] [place] [address] Care Team Providers Care Plate Roller Name Role Phone Etelvina Del Cid MD Primary Care Provider + Encounter Details Date Type Department Care Team (Late st Contact Info) Description 04/24/2018 Orders Only Radiology 1 [place] [address] Pinky Corona [address] [facility] [address] [place] [address] Social History Tobacco Use Types Packs/Day Years Used Date Smoking Tobacco: Never Smokeless Tobacco: Never Alcohol Use Standard Drinks/Week Comments No 0 (1 standard drink = 0.6 oz pur e alcohol) Sex and Gender Information Value Date Recorded Sex Assigned at Not on file Legal Sex Male 5:01 AM BLADDER CHANGER Gender Identity Male 12/18/2017 12:38 PM CDT Sexual Orientation Not on file documented as of this encounter Plan of Treatment Not on file documented as of this encounter Visit Diagnoses Not on filedocumented in this encounter Care Teams Plate Roller Relationship Specialty Start Date End Date Etelvina Del Cid MD [address] [address] PCP - General 08/14/16 03/10/19 documented as of this encounter
--- OUTSIDE RECORDS SUMMARY | 2024-05-10 17:16 | XMS_ITS | Encounter Summary ---
Author Organization [facility] Address [address] [place] [address] Phone Care Team Providers Care Rod Pointer Name Role Phone Etelvina Del Cid MD Primary Care Provider + Encounter Details Date Type Department Care Team (Late st Contact Info) Description 04/22/2018 Telephone [facility] Cardiology [address] [facility] [address] 8th [place] [address] [place] [address] Jef Walton MD [address] [facility] [address] [place], [place] [id number] Social History Tobacco Use Types Packs/Day Years Used Date Smoking Tobacco: Never Smokeless Tobacco: Never Alcohol Use Standard Drinks/Week Comments No 0 (1 standard drink = 0.6 oz pur e alcohol) Sex and Gender Information Value Date Recorded Sex Assigned at Not on file Legal Sex Male 5:01 AM DIPPER MACHINE OPERATOR Gender Identity Male 12/18/2017 12:38 PM CDT Sexual Orientation Not on file documented as of this encounter Miscellaneous Notes * Telephone Encounter - Piedad Velez RN - 04/22/2018 12:10 PM DIPPER MACHINE OPERATOR See other note. ER MACHINE OPERATOR * Telephone Encounter - Sven Marcos - 04/22/2018 12:03 PM CST jam Pt ret call ER MACHINE OPERATOR documented in this encounter Plan of Treatment Not on file documented as of this encounter Visit Diagnoses Not on filedocumented in this encounter Care Teams Rod Pointer Relationship Specialty Start Date End Date Etelvina Del Cid MD [address] [place] [address] PCP - General 08/14/16 03/10/19 documented as of this encounter
--- OUTSIDE RECORDS SUMMARY | 2024-05-10 17:17 | XMS_ITS | Encounter Summary ---
Author Organization [facility] Facility Care Team Providers Care Refrigeration Supervisor Name Role Phone Unavailable Primary Care Provider Unavailabl e Encounter Details Date Type Department Care Team (Latest Contact Info) Description 07/27/2009 10:08 AM CDT - 07/27/2009 11:59 PM CDT Hospital Encounter [facility] Morbid obesity (HCC); Acquired acanthosis nigricans; Lack of expected normal physiological development Social History Tobacco Use Types Packs/Day Years Used Date Smoking Tobacco: Never Assessed Sex and Gender Information Value Date Recorded Sex Assigned at Not on file Legal Sex Male 5:01 AM PM HEAD COOK Gender Identity Male 12/18/2017 12:38 PM CDT Sexual Orientation Not on file documented as of this encounter Plan of Treatment Not on file documented as of this encounter Visit Diagnoses Diagnosis Morbid obesity (HCC) Morbid obesity Acquired acanthosis nigricans Lack of expected normal physiological development Lack of normal physiological development, unspecified documented in this encounter
--- OUTSIDE RECORDS SUMMARY | 2024-05-10 17:17 | XMS_ITS | Encounter Summary ---
Author Organization [facility] Facility Care Team Providers Care Professional Organizer Name Role Phone Unavailable Primary Care Provider Unavailabl e Encounter Details Date Type Department Care Team (Latest Contact Info) Description 07/27/2009 9:39 AM CDT - 07/27/2009 11:59 PM CDT Hospital Encounter [facility]CON[facility] Radiological examination Social History Tobacco Use Types Packs/Day Years Used Date Smoking Tobacco: Never Assessed Sex and Gender Information Value Date Recorded Sex Assigned at Not on file Legal Sex Male 5:01 AM EDGING CATCHER Gender Identity Male 12/18/2017 12:38 PM CDT Sexual Orientation Not on file documented as of this encounter Plan of Treatment Not on file documented as of this encounter Visit Diagnoses Diagnosis Radiological examination documented in this encounter
--- OUTSIDE RECORDS SUMMARY | 2024-05-10 17:17 | XMS_ITS | Encounter Summary ---
Author Organization [facility] Facility Care Team Providers Care Hvac Engineer Name Role Phone Unavailable Primary Care Provider Unavailabl e Encounter Details Date Type Department Care Team (Latest Contact Info) Description 02/14/2010 4:03 PM CDT - 02/14/2010 11:59 PM CDT Hospital Encounter [facility] CLINCONV Syncope and collapse; Asthma; Attention deficit disorder with hyperactivity; Attention deficit disorder with hyperactivity(314.01 ) Social History Tobacco Use Types Packs/Day Years Used Date Smoking Tobacco: Never Assessed Sex and Gender Information Value Date Recorded Sex Assigned at Not on file Legal Sex Male 5:01 AM CERTIFIED MEDICAL TECHNICIAN Gender Identity Male 12/18/2017 12:38 PM CDT Sexual Orientation Not on file documented as of this encounter Plan of Treatment Not on file documented as of this encounter Visit Diagnoses Diagnosis Syncope and collapse Asthma Unspecified asthma Attention deficit disorder with hyperactivity Attention deficit disorder with hyperactivity(314.01) Attention deficit disorder with hyperactivity documented in this encounter
--- OUTSIDE RECORDS SUMMARY | 2024-05-10 17:20 | XMS_ITS | Encounter Summary ---
Author Organization [facility] Address [address] [place] [address] Care Team Providers Care Vice President Of Business Development Name Role Phone Unavailable Primary Care Provider Unavailabl e Encounter Details Date Type Department Care Team (Late st Contact Info) Description 02/11/2019 2:50 PM CDT Office Visit [facility] [address] [place] [address] Marci Sanchez MD [address] [place] [address] Social History Tobacco Use Types Packs/Day Years [...]
--- OUTSIDE RECORDS SUMMARY | 2024-05-10 17:20 | XMS_ITS | Clinical Summary ---
Author Organization [facility] Address [address] [place] [address] Phone Care Team Providers Care Instrument/Control Technician Name Role Phone Unavailable Primary Care Provider Unavailabl e Social History Tobacco Use Types Packs/Day Years Used Date Smoking Tobacco: Never Assessed Sex and Gender Information Value Date Recorded Sex Assigned at Not on file Gender Identity Not on file Sexual Orientation Not on file Plan of Treatment Health Maintenance Due Date Last Done Comments HPV VACCINES (1 - Male 3-dos e series) 2012 DTAP/TDAP/TD VACCINES (1 - Tdap) 2016 HEPATITIS B VACCINES (1 of 3 - 19+ 3-dose series) 2016 INFLUENZA VACCINE (#1) 2023 PNEUMOCOCCAL VACCINE 0-64 YEARS Aged Out No longer eligible based on patient's age to complete this topic
--- OUTSIDE RECORDS SUMMARY | 2024-05-10 20:19 | XMS_ITS | CONTINUITY OF CARE DOCUMENT ---
Author Name frankie david Address Unknown Organization [facility] Address [id number] [place] [address] [address] [place] [address] Phone [phone] Care Team Providers Care Senior Government Program Analyst Name Role Phone Daniel CROWE, Татьяна Unavailable [phone] Татьяна Sanchez MD Unavailable DAHLIA CROWE, AKANKSHA Angel Unavailable [phone] INSURANCE PROVIDERS Payer name Policy type / Coverage type [place] red democrat ID [facility] SELF PAY
--- OUTSIDE RECORDS SUMMARY | 2024-05-10 20:19 | XMS_ITS | Clinical Summary ---
Author Organization [facility] Address [facility] [facility] [place] [address] [place] [address] Care Team Providers Care Website Admin Name Role Phone None, Provider MD Primary [...] Insurance [employer] Care Teams Website Admin Relationship Specialty Start Date End Date None, Provider, PCP - General 11/29/18
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
--- OUTSIDE RECORDS SUMMARY | 2024-05-10 20:19 | XMS_ITS | Patient Health Summary ---
Author Organization [facility] Address [address] [facility] [place] [address] Care Team Providers Care Clipper Automatic Name Role Phone Unavailable Primary Care Provider Unavailabl e Note from [facility],non-owned Affiliates and Associated Physician Practices is amultiple site organization consisting of ambulatory clinics and hospital sitesin [place], [place], [place] and [place]. This disclosure is being madepursuant to the Care Everywhere program and may not contain all information available regarding this patient. Last updated 18.[facility] Allergies No known active allergies Medications * [...] were also obtained. All CT scans at [facility] are performed using dose optimization techniques as [...] were also obtained. All CT scans at [facility] are performed using dose optimization techniques as [...] brain was performed. All CT scans at [facility] are performed using dose optimization techniques as [...] brain was performed. All CT scans at [facility] are performed using dose optimization techniques as [...] - 106 mg/dL 10/22/2022 2:32 PM CDT -[facility] Specimen Type Cap Fingerstick 2022 2:32 PM CDT -[facility] Blood BLOOD SPECIMEN / Unknown 10/22/2022 2:25 PM CDT 10/22/2022 2:32 PM CDT Provider Unknown LAB - POINT OF CARE ORDERABLES [facility] [address] [place] [address]
--- OUTSIDE RECORDS SUMMARY | 2024-05-10 20:19 | XMS_ITS | Clinical Summary ---
Author Organization [facility] Address [address] [place] [address] Care Team Providers Care Well Drill Operator Cable Tool Name Role Phone Unavailable Primary Care Provider Unavailabl e Source Comments [facility],non-owned Affiliates and Associated Physician Practices is amultiple site organization consisting of ambulatory clinics and hospital sitesin [place], [place], [place] and [place]. This disclosure is being madepursuant to the Care Everywhere program and may not contain all information available regarding this patient. Last updated 18.[facility] Allergies No known active allergies Medications * [...] on patient's age to complete this topic [id number] N Workers Comp Employer 1995 [address] [place] [address] Geraldo Velez Workers Comp Self [address] [place] [address]
--- OUTSIDE RECORDS SUMMARY | 2024-05-10 20:19 | XMS_ITS | Encounter Summary ---
Author Organization [facility] Address [address] [facility] [address] [place] [address] Care Team Providers Care Canal Equipment Mechanic Name Role Phone Unavailable Primary Care Provider Unavailabl e Encounter Details Date Type Department Care Team (Late st Contact Info) Description 09/18/2013 Abstract [facility] Emergency Room [address] [place] [address] Dequan Taylor Jr., MD [facility] [address] [address] Social History Tobacco Use Types [...]
--- OUTSIDE RECORDS SUMMARY | 2024-05-10 20:19 | XMS_ITS | Encounter Summary ---
Author Organization [facility] Address [facility] [place] [address] [place] [address] Care Team Providers Care Machine Shop Repair Technician Name Role Phone None, Provider Primary Care Provider Unavaila ble Reason for Referral * Imaging (Emergency) - Closed Specialty Diagnoses / Procedures Referred By Contac t Referred To Contact RADIOLOGY Procedures CT CERV SPINE WO CON Lydia Ortiz NP Referral ID Status Reason Start Date Expiration Date Visits Re quested Visits Authorized [id number] Closed 11/29/2018 12/31/2019 1 1 * Imaging (Emergency) - Closed Specialty Diagnoses / Procedures Referred By Contac t Referred To Contact RADIOLOGY Procedures CT HEAD WO CON Lydia Ortiz NP Referral ID Status Reason Start Date Expiration Date Visits Re quested Visits Authorized [id number] Closed 11/29/2018 12/31/2019 1 1 Reason for Visit * Reason Comments Syncope Neck Pain Encounter Details Date Type Department Care Team (Late st Contact Info) Description 11/29/2018 7:21 PM CDT - 11/29/2018 10:09 PM CDT Emergency [facility] [place] [address] Syncope; Neck Pain Discharge Disposition: Home or [...] sent through Care Everywhere. * Syncope (Fainting) (Macedonian) documented in this encounter ED Notes * [...] 11/29/18 ECG [address] [facility] [address] Test Date: 2018-11-29 Pat Name: CRISTI VELEZ Department: Room: [id number] Gender: Male Communicable Disease Specialist: roberta : 1995 Requested By: LYDIA ORTIZ Order Number: [id number] Reading MD: Measurements Intervals [place] Rate: 89 P: 31 MD: 184 QRS: 20 QRSD: 113 T: 12 [...] CLEAN CATCH COLOR YELLOW TRANSPARENCY CLEAR Specific [place] (U) 1.023 1.001 - 1.030 U PH [...] SPINE WO CON Final Result by User, [id number] (11/29 2124) Examination: CT Cervical Spine Without [...] HEAD WO CON Final Result by User, [id number] (11/29 2122) EXAMINATION: CT of the head [...] PM CDT) 11/29/2018 9:14 PM CDT Narrative [facility] RAD - 11/30/2018 8:20 AM CDT ?[facility] ? [address] [place] ? Test Date: ?2018-11-29 Pat Name: ? CRISTI VELEZ ? Department: ? Room: ? [id number] Gender: ? Male ? Communicable Disease Specialist: ?? ev : ?1995 ? Requested By: LYDIA BONDS Order Number: [id number] ? Reading MD: ?? Blair Muller ? Measurements Intervals ?[place] ? Rate: ? 89 ? P: ?31 MD: ? 184 ?QRS: ?20 QRSD: ? 113 ?T: ?12 QT: ? 367 ? QTc: ?447 ? Interpretive Statements SINUS RHYTHM IVCD. INFERIOR MYOCARDIAL INFARCTION, PROBABLY OLD No previous ECG available for comparison No ischemic changes CRITICAL ALERT ISSUED ON 11-29-2018 21:21:55 Procedure Note Blair Muller MD - 11/30/[address] [facility] [facility] Test Date: 2018-11-29 Pat Name: CRISTI VELEZ Department: Room: [id number] Gender: Male Communicable Disease Specialist: ev : 1995 Requested By: SONU Order Number: [id number] Reading MD: Blair Muller Measurements Intervals [place] Rate: 89 P: 31 MD: 184 QRS: 20 QRSD: 113 T: 12 QT: 367 QTc: 447 Interpretive Statements SINUS RHYTHM IVCD. INFERIOR MYOCARDIAL INFARCTION, PROBABLY OLD No previous ECG available for comparison No ischemic changes CRITICAL ALERT ISSUED ON 11-29-2018 21:21:55 Lydia Ortiz FROG OR OYSTER FARMWORKER ECG ORDERABLES Final Re sult [facility] RAD * CT CERV SPINE [...] MD, 11/29/2018 9:22 PM us Lydia Ortiz FROG OR OYSTER FARMWORKER CT Final Re sult * CT HEAD [...] Ardon MD, 11/29/2018 9:19 PM Lydia Ortiz FROG OR OYSTER FARMWORKER CT Final Re sult * TROPONIN, QUANT (11/29/2018 8:38 PM CDT) TROPONIN I <0.015 <0.045 ng/mL. 11/29/2018 9:21 PM CDT [facility] Comment: HIGH DOSES OF BIOTIN MAY INTERFERE WITH THIS TEST RESULT. CORRELATION TO CLINICAL HISTORY AND PRESENTATION RECOMMENDED. 11/29/2018 8:38 PM CDT Lydia Ortiz FROG OR OYSTER FARMWORKER LABORATORY Final Re sult [facility] [address] [place] [address], [place] [phone] * URINALYSIS WI REFLEX TO CULTURE (11/29/2018 8:38 PM CDT) SPECIMEN TYPE URINE CLEAN CATCH 11/29/2018 8:31 PM CDT [facility] COLOR (U) YELLOW 11/29/2018 9:01 PM CDT [facility] TRANSPARENCY CLEAR 11/29/2018 9:01 PM CDT [facility] SPECIFIC GRAVITY (U) 1.023 1.001 - 1.030 11/29/2018 9:01 PM CDT [facility] U PH 6.0 5.0 - 9.0 11/29/2018 9:01 PM CDT [facility] LEUKOCYTES (U) NEGATIVE NEGATIVE 11/29/2018 9:01 PM CDT [facility] NITRITES NEGATIVE NEGATIVE 11/29/2018 9:01 PM CDT [facility] PROTEIN (U) NEGATIVE <30 MG/DL 11/29/2018 9:01 PM CDT [facility] URINE GLUCOSE NEGATIVE NEGATIVE MG/DL 11/29/2018 9:01 PM CDT [facility] KETONES MG/DL (U) NEGATIVE NEGATIVE MG/DL 11/29/2018 9:01 PM CDT [facility] UROBILINOGEN NEGATIVE NEGATIVE MG/DL 11/29/2018 9:01 PM CDT [facility] BILIRUBIN (U) NEGATIVE NEGATIVE MG/DL 11/29/2018 9:01 PM CDT [facility] BLOOD (U) NEGATIVE NEGATIVE 11/29/2018 9:01 PM CDT [facility] CULTURE & SENSITIVITY INDICATED? CULTURE IS NOT INDICATED 11/29/2018 9:01 PM CDT [facility] SQUAMOUS EPITHELIALS MODERATE /LPF 11/29/2018 9:01 PM CDT [facility] WBC/HPF <1 <6 /HPF 11/29/2018 9:01 PM CDT [facility] RBC/HPF <1 <6 /HPF 11/29/2018 9:01 PM CDT [facility] URINE SPECIMEN OBTAINED BY CLEAN CATCH PROCEDURE / Unknown 11/29/2018 8:38 PM CDT Lydia Ortiz FROG OR OYSTER FARMWORKER URINE ORDERABLES Final R esult [facility] [address] [place] [address], [place] [phone] * (ABNORMAL) CK (CPK) (11/29/2018 8:38 PM CDT) CPK 383(H) 35 - 232 U/L 11/29/2018 9:15 PM CDT [facility] 11/29/2018 8:38 PM CDT us Lydia SunshineBonds FROG OR OYSTER FARMWORKER LABORATORY Final Re sult [facility] [address] [place] [address], [place] [phone] * (ABNORMAL) COMPREHENSIVE METABOLIC PANEL (11/29/2018 8:38 PM CDT) Pathologist [facility] GLUCOSE 130(H) 70 - 99 MG/DL 11/29/2018 9:15 PM CDT [facility] BUN 12 7 - 18 MG/DL 11/29/2018 9:15 PM CDT [facility] CREATININE S/P/B 1.24 0.7 - 1.3 MG/DL 11/29/2018 9:15 PM CDT [facility] SODIUM S/P/B 142 136 - 145 MMOL/L 11/29/2018 9:15 PM CDT [facility] POTASSIUM S/P/B 4.0 3.5 - 5.1 MMOL/L 11/29/2018 9:15 PM CDT [facility] CHLORIDE S/P/B 110(H) 100 - 108 MMOL/L 11/29/2018 9:15 PM CDT [facility] CO2 24.3 21 - 32 MMOL/L 11/29/2018 9:15 PM CDT [facility] CALCIUM S/P/B 8.9 8.5 - 10.1 MG/DL 11/29/2018 9:15 PM CDT [facility] BILIRUBIN TOTAL S/P/B 0.4 0.2 - 1.2 MG/DL 11/29/2018 9:15 PM CDT [facility] TOTAL PROTEIN S/P/B 7.8 6.4 - 8.2 G/DL 11/29/2018 9:15 PM CDT [facility] ALBUMIN S/P/B 4.0 3.4 - 5.0 G/DL 11/29/2018 9:15 PM CDT [facility] AST 61(H) 15 - 37 U/L 11/29/2018 9:15 PM CDT [facility] ALT 121(H) 16 - 60 U/L 11/29/2018 9:15 PM CDT [facility] ALKALINE PHOSPHATASE S/P/B 85 50 - 136 U/L 11/29/2018 9:15 PM CDT [facility] ANION GAP 7.7 5 - 15 MMOL/L 11/29/2018 9:15 PM CDT [facility] BUN CREATININE RATIO 9.7 6 - 26 11/29/2018 9:15 PM T [facility] A/G RATIO 1.1 1.0 - 2.0 RATIO 11/29/2018 9:15 PM CDT [facility] EGFR NON-AFR. AMER. 83(L) >90 ML/MIN/1.7 3 M2 11/29/2018 9:15 PM T [facility] EGFR AFR. AMER. >90 >90 ML/MIN/1.7 3 M2 11/29/2018 9:15 PM T [facility] Comment: NOTE: eGFR is not calculated for patients <18 years of age. This is an estimated GFR (CKD EPI) and should not be used for calculating drug doses. 11/29/2018 8:38 PM CDT us Lydia Ortiz NP LABORATORY Final Re sult [facility] [address] [place] [address], [place] [phone] * CBC W/DIFF AUTOMATED (11/29/2018 8:38 PM CDT) WBC 6.1 4.5 - 13.0 x10'3/uL 11/29/2018 9:01 PM CDT [facility] RBC 5.25 4.70 - 6.10 x10'6/uL 11/29/2018 9:01 PM CDT [facility] HGB 15.1 14.0 - 18.0 G/DL 11/29/2018 9:01 PM CDT [facility] HCT 44.3 43.0 - 54.0 % 11/29/2018 9:01 PM CDT [facility] MCV 84.4 80.0 - 94.0 FL 11/29/2018 9:01 PM CDT [facility] MCH 28.8 27.0 - 31.0 PG 11/29/2018 9:01 PM CDT [facility] MCHC 34.1 32.0 - 36.0 G/DL 11/29/2018 9:01 PM CDT [facility] RDW 12.2 11.5 - 14.5 % 11/29/2018 9:01 PM CDT [facility] PLT 307 130 - 400 x10'3/uL 11/29/2018 9:01 PM CDT [facility] MPV 9.9 9.3 - 12.2 FL 11/29/2018 9:01 PM CDT [facility] DIFFERENTIAL TYPE AUTOMATED DIFFERENTIAL 11/29/2018 9:01 PM CDT [facility] NEUTROPHILS % 57.9 % 11/29/2018 9:01 PM CDT [facility] LYMPHOCYTES % 30.0 % 11/29/2018 9:01 PM CDT [facility] MONOCYTES % 7.9 % 11/29/2018 9:01 PM CDT [facility] EOSINOPHILS 3.5 % 11/29/2018 9:01 PM CDT [facility] BASOPHILS 0.5 % 11/29/2018 9:01 PM CDT [facility] IMMATURE GRANS % 0.2 % 11/30/19 19 9:01 PM CDT [facility] ABS. NEUTROPHILS TOTAL 3.52 1.80 - 8.00 x10'3/uL 11/29/2018 9:01 PM CDT [facility] ABS. LYMPHOCYTES 1.82 1.20 - 5.20 x10'3/uL 11/29/2018 9:01 PM CDT [facility] ABS. MONOCYTES 0.48 0.30 - 0.82 x10'3/uL 11/29/2018 9:01 PM CDT [facility] ABS. EOSINOPHILS 0.21 0.04 - 0.54 x10'3/uL 11/29/2018 9:01 PM CDT [facility] ABS. BASOPHILS 0.03 0.01 - 0.08 x10'3/uL 11/29/2018 9:01 PM CDT [facility] ABS. IMMATURE GRANULOCYTES 0.01 0.00 - 0.49 x10'3/uL 11/29/2018 9:01 PM CDT [facility] 11/29/2018 8:38 PM CDT us Lydia Ortiz FROG OR OYSTER FARMWORKER LABORATORY Final Re sult [facility] [address] [place] [address], documented in this encounter Visit Diagnoses Diagnosis [...] (New Bag - Prov ider: Viki Snider RN)488 (Infusion Stop Time - Provider: Viki Snider RN) documented in this encounter Care Teams Machine Shop Repair Technician Relationship Specialty Start Date End Date None, Provider, PCP - General 11/29/18 documented as of this encounter
--- OUTSIDE RECORDS SUMMARY | 2024-05-10 20:19 | XMS_ITS | Referral Summary ---
Author Organization [facility] Address [address] [facility] [place] [address] Care Team Providers Care Monotype Machinist Name Role Phone Unavailable Primary Care Provider Unavailabl e Source Comments [facility],non-owned Affiliates and Associated Physician Practices is amultiple site organization consisting of ambulatory clinics and hospital sitesin [place], [place], [place] and [place]. This disclosure is being madepursuant to the Care Everywhere program and may not contain all information available regarding this patient. Last updated 18.[facility] Allergies No known active allergies Medications * [...] CDT Plan of Treatment Not on file [id number] N Workers Comp Employer 1995 [address] [place] [address] Geraldo Velez Workers Comp Self 1995 [address] [place] [address]
--- OUTSIDE RECORDS SUMMARY | 2024-05-10 20:20 | XMS_ITS | Encounter Summary ---
Author Organization [facility] Address [address] [place] [address] Phone Care Team Providers Care Marketing Effectiveness Manager Name Role Phone Mariana Monique MD [facility]available [facility] Primary Care Provider Encounter Details Date Type Department Care Team (Latest Contact Info) Description 03/22/2022 2:00 PM PANEL WIRER Office Visit [facility] Endocrinology Metabolism and Lipid [address] [facility] [address] 5th [place] [address] [place] [address] Peter Styles Jr., MD [address] [place] [address] Diabetic ketoacidosis without coma associated with type [...] often do you attend chur ch or muslim services? 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 Not on file Not on file documented as of this encounter Last Filed Vital Signs Vital Sign Reading Time Taken Comments Blood Pressure 166/98 03/22/2022 1:42 PM PANEL WIRER Pulse 85 03/22/2022 1:42 PM PANEL WIRER Temperature 36.3 ??C (97.4 ??F) 03/22/2022 1:42 PM CS T Respiratory Rate - - Oxygen Saturation - - Inhaled Oxygen Concentration - - Weight 187.3 kg (413 lb) 03/22/2022 1:42 PM PANEL WIRER Height 205.7 cm (6' 9 ) 03/22/2022 1:42 PM PANEL WIRER Body Mass Index 44.26 03/22/2022 1:42 PM PANEL WIRER documented in this encounter Patient Instructions * Patient Instructions* Peter Styles Jr., MD - 03/22/2022 2:00 PM PANEL WIRER There are 2 apps from [employer]. One runs the dexcom itself and the other is DexIndexing Clarity. This giveanalyses of glucose levels. Please download the dexcom Clarity fabiola. Your target range is 70-150. Increase your U500 to 25 units (120 units) three times daily with meals. Observe thew values over1 week. Increase to 30 if you are not within the target. We will call you about the Dexcom connection. The DexIndexing Clarity fabiola is cluttered. Look at the ambulatory glucose profile. We will check out Ozempic and other competitors. L WIRER L WIRER L WIRER documented in this encounter Ordered Prescriptions Prescription [...] long-term current use of insulin ([facility]) Patient seems to have both insulin resistance [...] alk phos of 142. RTC 3 months. L WIRER documented in this encounter Plan of Treatment Not on file documented as of this encounter Procedures Procedure Name Priority Date/Time Associated Diagnosis Comments POCT HEMOGLOBIN A1C Routine 03/22/2022 2 :20 PM PANEL WIRER Diabetic ketoacidosis without coma associated with type 2 diabetes mellitus (CMS/HCC) (HCC) POCT GLUCOSE 49956 Routine 03/22/2022 1: 53 PM PANEL WIRER Diabetic ketoacidosis without coma associated with type 2 diabetes mellitus (CMS/HCC) (HCC) documented in this encounter Results * POCT hemoglobin A1c (03/22/2022 2:20 PM PANEL WIRER) Hemoglobin A1C, POC 10.9 Blood 03/22/2022 2:20 PM PANEL WIRER Peter Styles Jr., MD POINT OF CARE TEST OR DERABLES Final Result * POCT glucose (03/22/2022 1:53 PM PANEL WIRER) Glucose Blood, POC 210 mg/dL Blood 03/22/2022 1:53 PM PANEL WIRER Peter Styles Jr., MD POINT OF CARE [...] 3 added in this encounter Care Teams Marketing Effectiveness Manager Relationship Specialty Start Date End Date Keila Jimenez MD [address] [place] [address] PCP - General 10/29/21 Mariana Monique MD [address] [place] [address] Referring Physician Internal Medicine 01/17/20 documented as of this encounter
--- OUTSIDE RECORDS SUMMARY | 2024-05-10 20:20 | XMS_ITS | Encounter Summary ---
Author Organization [facility] Address [address] [place] [address] Phone Care Team Providers Care Atmospheric Scientist Name Role Phone Mariana Monique MD Unavailable [phone] [facility] Primary Care Provider Reason for Visit * Reason Onset Date Comments ozempic p/a 08/16/2022 Encounter Details Date Type Department Care Team (Late st Contact Info) Description 08/16/2022 Telephone [facility] Endocrinology Metabolism and Lipid [address] [facility] [address] 13th [place] [address] [place] [address] Peter Styles Jr., MD [address] [place] [address] ozempic p/a Social History Tobacco Use Types [...] week 11/26/2021 How often do you attend [facility] or jain services? 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 documented in this encounter Plan of Treatment Not on file documented as of this encounter Visit Diagnoses Not on filedocumented in this encounter Care Teams Atmospheric Scientist Relationship Specialty Start Date End Date Keila Jimenez MD [address] [place] [address] PCP - General 10/29/21 Mariana Monique MD [address] [place] [address] Referring Physician Internal Medicine 01/17/20 documented as of this encounter
--- OUTSIDE RECORDS SUMMARY | 2024-05-10 20:20 | XMS_ITS | Encounter Summary ---
Author Organization [facility] Address [address] [place] [address] Phone Care Team Providers Care Sand Temperer Name Role Phone Mariana Monique MD Unavailable [phone] [facility] Primary Care Provider Encounter Details Date Type Department Care Team (Late st Contact Info) Description 09/04/2023 Orders Only [facility] Endocrinology Metabolism and Lipid [address] [facility] [address] 5th [place] [address] [place] [address] Peter Styles Jr., MD [address] [place], [place] [address] DM (diabetes mellitus), type 2 with complications [...] week 11/26/2021 How often do you attend [facility] or quaker services? 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
--- OUTSIDE RECORDS SUMMARY | 2024-05-10 20:20 | XMS_ITS | Encounter Summary ---
Author Organization [facility] Address [address] [place] [address] Phone Care Team Providers Care Medication Technician Name Role Phone Mariana Monique MD Unavailable [phone] [facility] Primary Care Provider Reason for Visit * Reason Onset Date Comments Dexcom G7 sensor PA 03/22/2023 Encounter Details Date Type Department Care Team (Late st Contact Info) Description 03/22/2023 Telephone [facility] Scheduling [address] [place] [address] Jenifer Tamez Dexcom G7 sensor [...] often do you attend chur ch or amish services? 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 Per office PA disregarded as pt needs to re-establish care with provider. WINDER * Telephone Encounter - Jenifer Tamez - 03/22/2023 1:52 PM CST [place]: [id number] Dexcom g7 sensor [employer]--[id number] Status: approved Coverage start date: 03/22/2023 Coverage end date: 05/22/2023 [place]: [id number] Mounjaro 2.5MG/0.5ML [employer]--[id number] Status:approved Coverage start date: 03/22/2023 Coverage end date: 03/22/2024 WINDER documented in this encounter Plan of Treatment Not on file documented as of this encounter Visit Diagnoses Not on filedocumented in this encounter Care Teams Medication Technician Relationship Specialty Start Date End Date Keila Jimenez MD [address] [place] [address] PCP - General 10/29/21 Mariana Monique MD [address] [place] [address] Referring Physician Internal Medicine 01/17/20 documented as of this encounter
--- OUTSIDE RECORDS SUMMARY | 2024-05-10 20:20 | XMS_ITS | Encounter Summary ---
Author Organization [facility] Address [address] [place] [address] Phone Care Team Providers Care Animal Killer Name Role Phone Mariana Monique MD Unavailable [phone] [facility] Provider Encounter Details Date Type Department Care Team (Late st Contact Info) Description 08/05/2022 Telephone [facility] Endocrinology Metabolism and Lipid [address] [facility] 5[address] [place] [address] [place] [address] Denia Albert RN Social History [...] often do you attend chur ch or mandaeism services? 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 Not on file Not on file documented as of this encounter Ordered Prescriptions Prescription Sig Dispense Quantity Refills Last Filled Start Date End Date blood-glucose meter,continuous (Dexcom G7 Hspt Tutor) miscIndications:Ty pe 2 diabetes mellitus without complication, with long-term current use of insulin ([facility] ([facility]) Use to continually monitor glucose 1 each 08/15/2022 semaglutide (OZEMPIC) 0.25 mg or 0.5 mg(2 mg/1.5 mL) pen injector injectionIndicatio ns:Type 2 diabetes mellitus without complication, with long-term current use of insulin ([facility]) ([facility]) Inject 0.25 mg SQ weekly for 2-4 weeks and then increase to 0.5 mg SQ weekly 4.5 mL 3 08/15/2022 3 blood-glucose sensor (Dexcom G7 Sensor) deviceIndications: Type 2 diabetes mellitus without complication, with long-term current use of insulin (CMS/HCC) ([facility]) Use to continually monitor glucose, change every [...] to the G7 and also get a saddle and side wire stitcher Ozempic also renewed and the patient to [...] Jr., MD sent at 03/23/2022 8:20 AM WILL CALL CLERK ----- Marifer, this is a complicated patient [...] complication, with long-term current use of insulin ([facility]) ([facility])- Primary documented in this encounter Discontinued Medications Medication Sig Discontinue Reason Start Date End Da te Dexcom G6 Sensor device USE TO CONTINUALLY MONITOR GLUCOSE, CHANGE EVERY 10 DAYS Formulary change 03/08/2022 08/15/2022 documented as of this encounter Care Teams Animal Killer Relationship Specialty Start Date End Date Keila Jimenez MD [address] [place] [address] PCP - General 10/29/21 Mariana Monique MD [address] [place] [address] Referring Physician Internal Medicine 01/17/20 documented as of this encounter
--- OUTSIDE RECORDS SUMMARY | 2024-05-10 20:20 | XMS_ITS | Encounter Summary ---
Author Organization [facility] Address [address] [place] [address] Phone Care Team Providers Care Crop Roller Name Role Phone Mariana Monique MD Unavailable [phone] [facility] Reason for Visit * Reason Onset Date Comments Hyperglycemia 11/12/2022 Encounter Details Date Type Department Care Team (Late st Contact Info) Description 11/12/2022 Telephone [facility] Endocrinology Metabolism and Lipid [address] [facility] [address] [place] [address] [place] [address] Denia Albert, RN Hyperglycemia Social [...] often do you attend chur ch or taoist services? 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
--- OUTSIDE RECORDS SUMMARY | 2024-05-10 20:20 | XMS_ITS | Encounter Summary ---
Author Organization [facility] Healthcare Address [address] [place] [address] Care Team Providers Care Gripper Machine Operator Name Role Phone Mariana Monique MD Unavailable [phone] [facility] Primary Care Provider Reason for Visit * Auth/Cert Specialty Diagnoses / Procedures Referred By Contac t Referred To Contact Diagnoses DKA, type 1, not at goal (HCC) DKA Procedures NA Referral ID Status Reason Start Date Expiration Date Visits Re quested Visits Authorized [id number] 1 1 Encounter Details Date Type Department Care Team (Latest Contact Info) Description 11/24/2021 1:15 AM CDT - 11/27/2021 3:17 PM CDT Hospital Encounter [address] [place] [address] Dequan Nunez MD [facility] [address] [facility] [place] [address] Isidro Leyva MD [address] [place] [address] Discharge Disposition: Discharge to home or self [...] often do you attend chur ch or temple services? 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 Patient plans to transition care to [facility] and stable for DC. Active [...] your doctor. Additional resources available from the [employer] can be found at www.diabetes.org/nutrition. If a nutrition follow-up with a registered dietitian is desired after you discharge home, please contact the [facility] Outpatient Dietitiansat [phone]. Discharge Medications: Current Medications TAKE these medications [...] 5C QUIGLEY EML Contact Information for Follow-ups [facility] Specialty: Diabetes and Nutrition Services [address] [place] [id number] Next Steps: Follow up Instructions: For diabetic diet education, please call to make an appointment. Isidro Leyva MD [facility] documented in this encounter Discharge Instructions [...] your doctor. Additional resources available from the [employer] can be found at www.diabetes.org/nutrition. If a nutrition follow-up with a registered dietitian is desired after you discharge home, please contact the [facility] Outpatient Dietitiansat [phone]. * Attachments The following attachments cannot be sent through Care Everywhere. * Basic Carbohydrate Counting (General Information) (Czech) documented in this encounter Medications at Time [...] DKA, type 1, not at goal (CMS/HCC) ([facility]) [E10.10]. Admitted on11/24/2021, current LOS is 3 [...] Carbohydrate Diet effective now Question Answer Comment ([facility]) Diet type Special Diabetic: Consistent Carbohydrate 11/25/21 1150 11/24/21 2200 Snacks At bedtime 11/24/21 2101 Nutrition Needs Calculations: Calculated Energy Needs Using Equations Weight: (!) 180.7 kg (398 lb 5.9 oz) Height: 205.7 cm (6' 9 ) Estimated Protein Needs Type of Weight Used for Estimated Protein : [place] Protein Needs Based on g/k.2 Total Protein Estimated Needs (gm): 126.24 Kcal/kg Type of Weight Used for Estimated Kcals: [place] Kcal/k Total Kcal/kg Estimated Needs : 2524.8 Nutritional Needs and Diagnosis: Nutrition Diagnosis 1: Food and nutrition-related knowledge deficit Related to: Lack of adherence, Food choices Evidenced by: Lab abnormality Impression: Admitted for DKA with T1DM. research programmer provided in-depth education on 11/24. Pt discharged [...] your doctor. Additional resources available from the [employer] can be found at www.diabetes.org/nutrition. If a nutrition follow-up with a registered dietitian is desired after you discharge home, please contact the [facility] Outpatient Dietitiansat [phone]. Keila Dur[address],LD * Vira Vora MD [...] 2-4 weeks with me. Vira Vora MD [facility] Office phone: [phone] Office fax: [phone] * Vira Vora MD - 11/26/2021 6:55 [...] Podiatry. Dispo: Home soon, DW Dr Horan, TENTER FRAME OPERATOR Annika. Vira Vora MD [facility] Office phone: [phone] Office fax: [phone] * Kenroy Horan MD - 11/26/2021 7:45 [...] have been put in place by the [facility] system to preserve limited supplies. * Vira [...] care fu. Consider Podiatry. DW Dr Horan, TENTER FRAME OPERATOR. Vira Vora MD [facility] Office phone: [phone] Office fax: [phone] * Kenroy Horan MD - 11/25/2021 8:04 [...] have been put in place by the [facility] system to preserve limited supplies. * Alpa [...] have been put in place by the [facility] system to preserve limited supplies. * Delmer Harmon, [facility] - 11/24/2021 1:53 AM CDT Pharmacy Note [...] and started on insulin gtt. [facility] care. Patient reports compliance with [...] over the last 24 hours reviewed in [facility] and / or Clinical desktop. All [...] 2:33 PM CDTAssociated Order(s): IP CONSULT TO SENIOR ANALYTIC CONSULTANT Geraldo Velez [id number] Isidro Leyva MD Pre-Education Assessment Units of [...] is active in December. 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 Patient currently has access to insulin and is compliant at this time. Patient does struggle with consistency when eating meals and food choices. Mother is at bedside and very supportive. Diet: Patient works 12 hour nights and is a application security developer. Struggles with consistent meal times. Patient also [...] and motherappreciative of consultation. Discharge Recommendations [place]: Ultra fine 4 mm Jeanette Garcia RN, Hoeing Row Boss 11/24/2021 2:33 PM * Vira Vora MD [...] Appreciate consult, will follow Vira Vora MD [facility] Office phone: [phone] Office fax: [phone] documented in this encounter Miscellaneous Notes * [...] From: Patient (11/26/212005) Admission Source: Tx from [facility] ER to ICU Impression: DKA and hypertriglyceride Plan Includes: Iv insulin gtt, RN dm education, Endo guidance for DKA and elev Triglycerides. Primary Source of Transportation: Has discharge transport been arranged?: Yes (11/24/21115) Health Insurance Coverage: [facility] --Pt's fathers insurance coverage. Pt will have insurance through [facility]. Prescription Coverage: Yes [facility] [place] [address] Primary Care Provider: Pt has been following in [facility]--He plans to obtain PCP when hispersonal insurance will cover, He states he has been following w/DR Peter Styles (modesta) at the [facility]. He has an appt on 01/04/22 - encouraged him to f/u w/Modesta bryson prior to that since he has been hospitalized w/DKA. Pt states he will. Prior to Admission: Primary Caregiver: Self Support System: Spouse/Significant Other Support system contact info (name, phone, availablity): Leatha Velez Mother [phone] ---no number for Girlfriend Home Care Services: [...] than three times a week ??? Attends [employer]: Never ??? Active Member of Clubs [...] Collaboration with patient, MD, direct care nurse, Informatics Spec, Nurse Coordinator and other members of the health care team to assure needed interventions completed. 2. Return patient to optimal level of self-care post discharge. 3. Plumbing Drafter will follow for Discharge Planning - interventions [...] come off this AM, latus started by cnc milling machinist last night, D5W stopped per endocrine. Await [...] * POCT glucose (11/27/2021 12:46 PM CDT) [facility] Signature Glucose, POC 85 70 - 140 mg/dL [facility] Comment: For Glucose values <35 mg/dl when Hematocrit is >60 mg/dl,the test may not accurately detect significant hypoglycemia,and testing in the Laboratory should be considered if clinically indicated. Blood 11/27/2021 12:4 6 PM CDT 11/27/2021 12:46 PM CDT Isidro Leyva MD LAB POCT ORDERABLES - DEVICE Final Result Performing Organization Address [facility] de Phone Number [facility] [address] [facility] [address] [place], [place] [id number] * POCT glucose (11/27/2021 8:47 AM CDT) Glucose, POC 95 70 - 140 mg/dL [facility] Comment: For Glucose values <35 mg/dl when Hematocrit is >60 mg/dl,the test may not accurately detect significant hypoglycemia,and testing in the Laboratory should be considered if clinically indicated. Blood 11/27/2021 8:47 AM CDT 11/27/2021 8:47 AM CDT Isidro Leyva MD LAB POCT ORDERABLES - DEVICE Final Result Performing Organization Address [facility] de Phone Number [facility] [address] [facility] [place] [address] * eGFR (11/27/2021 5:56 AM CDT) eGFR 133 mL/min/1. 73 m2 [facility] Comment: [...] ORDERABLES Final R esult Performing Organization Address City/[facility] Co de Phone Number [facility] [address] [facility] [place], [place] [id number] * Magnesium (11/27/2021 5:56 AM CDT) Magnesium 1.8 1.4 - 2.5 mg/dL [facility] Blood 11/27/2021 5:56 AM CDT 11/27/2021 6:16 AM CDT Kenroy Horan MD LAB BLOOD ORDERABLES Final R esult Performing Organization Address [facility] Co de Phone Number [facility] [address] [place] [address] * (ABNORMAL) Renal function panel (11/27/2021 5:56 AM CDT) Sodium 139 135 - 145 mmol/L [facility] Potassium, pl 3.9 3.3 - 4.9 mmol/L [facility] Comment:Hemolyzed; potassium value may be falsely elevated by as much as 0.6 - 1.0 mmol/L. Suggest redraw and reanalysis Chloride 107 97 - 110 mmol/L [facility] CO2 22 22 - 32 mmol/L [facility] Anion gap 10 2 - 15 mmol/L [facility] BUN 6(L) 8 - 25 mg/dL [facility] Creatinine 0.70(L) 0.80 - 1.30 mg/dL [facility] Glucose 93 70 - 199 mg/dL [facility] [...] 2017. Calcium 8.5 8.5 - 10.3 mg/dL [facility] Phosphorus, pl 4.2 2.3 - 4.5 mg/dL [facility] Albumin 3.2(L) 3.5 - 5.0 g/dL [facility] Blood 11/27/2021 5:56 AM CDT 11/27/2021 6:16 AM CDT Kenroy Horan MD LAB BLOOD ORDERABLES Final R esult [facility] [address] [place] [address] * POCT glucose (11/27/2021 1:30 AM CDT) Glucose, POC 110 70 - 140 mg/dL [facility] Comment: For Glucose values <35 mg/dl when Hematocrit is >60 mg/dl,the test may not accurately detect significant hypoglycemia,and testing in the Laboratory should be considered if clinically indicated. Blood 11/27/2021 1:30 AM CDT 11/27/2021 1:30 AM CDT us Dequan Nunez MD LAB POCT ORDERABLES - DEVICE Final Result Performing Organization Address [facility]/ZIP Co de Phone Number [facility] [address] [facility] [address] [place], [place] [id number] * POCT glucose (11/26/2021 9:00 PM CDT) Glucose, POC 129 70 - 140 mg/dL [facility] Comment: For Glucose values <35 mg/dl when Hematocrit is >60 mg/dl,the test may not accurately detect significant hypoglycemia,and testing in the Laboratory should be considered if clinically indicated. Blood 11/26/2021 9:00 PM CDT 11/26/2021 9:00 PM CDT Dequan Nunez MD LAB POCT ORDERABLES - DEVICE Final Result Performing Organization Address [facility] Co de Phone Number [facility] [address] [facility] [place] [address] * POCT glucose (11/26/2021 5:20 PM CDT) Glucose, POC 95 70 - 140 mg/dL [facility] Comment: For Glucose values <35 mg/dl when Hematocrit is >60 mg/dl,the test may not accurately detect significant hypoglycemia,and testing in the Laboratory should be considered if clinically indicated. Blood 11/26/2021 5:20 PM CDT 11/26/2021 5:20 PM CDT Dequan Nunez MD LAB POCT ORDERABLES - DEVICE Final Result Performing Organization Address [facility] Co de Phone Number [facility] [address] [facility] [address] [place], [place] [id number] * (ABNORMAL) POCT glucose (11/26/2021 2:11 PM CDT) Glucose, POC 166(H) 70 - 140 mg/dL [facility] Comment: For Glucose values <35 mg/dl when Hematocrit is >60 mg/dl,the test may not accurately detect significant hypoglycemia,and testing in the Laboratory should be considered if clinically indicated. Blood 11/26/2021 2:11 PM CDT 11/26/2021 2:11 PM CDT Dequan Nunez MD LAB POCT ORDERABLES - DEVICE Final Result Performing Organization Address [facility] Co de Phone Number [facility] [address] [facility] [place] [address] * POCT glucose (11/26/2021 12:40 PM CDT) Glucose, POC 110 70 - 140 mg/dL [facility] Comment: For Glucose values <35 mg/dl when Hematocrit is >60 mg/dl,the test may not accurately detect significant hypoglycemia,and testing in the Laboratory should be considered if clinically indicated. Blood 11/26/2021 12:4 0 PM CDT 11/26/2021 12:40 PM CDT Result [facility] Dequan Nunez MD LAB POCT ORDERABLES - DEVICE Final Result Performing Organization Address [facility] de Phone Number [facility] [address] [place] [address] * POCT glucose (11/26/2021 11:16 AM CDT) Glucose, POC 116 70 - 140 mg/dL [facility] Comment: For Glucose values <35 mg/dl when Hematocrit is >60 mg/dl,the test may not accurately detect significant hypoglycemia,and testing in the Laboratory should be considered if clinically indicated. Blood 11/26/2021 11:1 6 AM CDT 11/26/2021 11:16 AM CDT Dequan Nunez MD LAB POCT ORDERABLES - DEVICE Final Result Performing Organization Address [facility] Co de Phone Number [facility] [address] [facility] [place] [address] * (ABNORMAL) POCT glucose (11/26/2021 9:51 AM CDT) Glucose, POC 146(H) 70 - 140 mg/dL [facility] Comment: For Glucose values <35 mg/dl when Hematocrit is >60 mg/dl,the test may not accurately detect significant hypoglycemia,and testing in the Laboratory should be considered if clinically indicated. Blood 11/26/2021 9:51 AM CDT 11/26/2021 9:51 AM CDT Dequan Nunez MD LAB POCT ORDERABLES - DEVICE Final Result Performing Organization Address [facility] Co de Phone Number [facility] [address] [facility] [place] [address] * POCT glucose (11/26/2021 8:24 AM CDT) Glucose, POC 140 70 - 140 mg/dL [facility] Comment: For Glucose values <35 mg/dl when Hematocrit is >60 mg/dl,the test may not accurately detect significant hypoglycemia,and testing in the Laboratory should be considered if clinically indicated. Blood 11/26/2021 8:24 AM CDT 11/26/2021 8:24 AM CDT Dequan Nunez MD LAB POCT ORDERABLES - DEVICE Final Result Performing Organization Address City/[facility]/ZIP Co de Phone Number [facility] [address] [facility] [place] [address] * POCT glucose (11/26/2021 6:31 AM CDT) Glucose, POC 129 70 - 140 mg/dL [facility] Comment: For Glucose values <35 mg/dl when Hematocrit is >60 mg/dl,the test may not accurately detect significant hypoglycemia,and testing in the Laboratory should be considered if clinically indicated. Blood 11/26/2021 6:31 AM CDT 11/26/2021 6:31 AM CDT Dequan Nunez MD LAB POCT ORDERABLES - DEVICE Final Result Performing Organization Address [facility] Co de Phone Number [facility] [address] [facility] [place] [address] * POCT glucose (11/26/2021 4:40 AM CDT) Glucose, POC 128 70 - 140 mg/dL [facility] Comment: For Glucose values <35 mg/dl when Hematocrit is >60 mg/dl,the test may not accurately detect significant hypoglycemia,and testing in the Laboratory should be considered if clinically indicated. Blood 11/26/2021 4:40 AM CDT 11/26/2021 4:40 AM CDT Dequan Nunez MD LAB POCT ORDERABLES - DEVICE Final Result Performing Organization Address [facility] de Phone Number [facility] [address] [facility] [place] [address] * POCT glucose (11/26/2021 3:02 AM CDT) Glucose, POC 125 70 - 140 mg/dL [facility] Comment: For Glucose values <35 mg/dl when Hematocrit is >60 mg/dl,the test may not accurately detect significant hypoglycemia,and testing in the Laboratory should be considered if clinically indicated. Blood 11/26/2021 3:02 AM CDT 11/26/2021 3:02 AM CDT Dequan Nunez MD LAB POCT ORDERABLES - DEVICE Final Result Performing Organization Address [facility] Co de Phone Number [facility] [address] [facility] [place] [address] * eGFR (11/26/2021 2:01 AM CDT) eGFR 120 mL/min/1. 73 m2 [facility] Comment: [...] LAB BLOOD ORDERABLES Final R esult [facility] [address] [place] [address] * (ABNORMAL) Triglycerides (11/26/2021 2:01 AM CDT) Triglycerides 1,310(H) <=149 mg/dL [facility] Comment: Interpretive Data Ages < or [...] MD LAB BLOOD ORDERABLES Final R esult [facility] [address] [place] [address] * (ABNORMAL) CBC without differential (11/26/2021 2:01 AM CDT) WBC 3.4(L) 3.8 - 9.9 K/cumm [facility] Hgb 13.7 13.0 - 17.5 g/dL [facility] Hct 37.4(L) 38.9 - 50.3 % [facility] Plt 166 150 - 400 K/cumm [facility] MPV 10.2 9.1 - 12.3 fL [facility] RBC 4.52 4.30 - 5.80 M/cumm [facility] MCV 82.7 81.3 - 96.4 fL [facility] MCH 30.3 27.1 - 33.3 pg [facility] MCHC 36.6(H) 32.3 - 35.7 g/dL [facility] RDW CV 14.0 11.1 - 14.9 % [facility] RDW SD 41.6 35.7 - 48.1 fL [facility] NRBC abs 0.00 0.00 - 0.01 K/cumm [facility] Blood 11/26/2021 2:01 AM CDT 11/26/2021 2:44 AM CDT Kenroy Horan MD LAB BLOOD ORDERABLES Final R esult Performing Organization Address City/[facility]/ZIP Co de Phone Number [facility] [address] [place] [address] * Magnesium (11/26/2021 2:01 AM CDT) Pathologist [facility] Magnesium 1.8 1.4 - 2.5 mg/dL [facility] Blood 11/26/2021 2:01 AM CDT 11/26/2021 2:44 AM CDT Kenroy Horan MD LAB BLOOD ORDERABLES Final R esult Performing Organization Address City/[facility] Co de Phone Number [facility] [address] [place] [address] * (ABNORMAL) Renal function panel (11/26/2021 2:01 AM CDT) Sodium 136 135 - 145 mmol/L [facility] Potassium, pl 3.3 3.3 - 4.9 mmol/L [facility] Chloride 104 97 - 110 mmol/L [facility] CO2 23 22 - 32 mmol/L [facility] Anion gap 9 2 - 15 mmol/L [facility] BUN 7(L) 8 - 25 mg/dL [facility] Creatinine 0.92 0.80 - 1.30 mg/dL [facility] Glucose 154 70 - 199 mg/dL [facility] [...] 2017. Calcium 8.5 8.5 - 10.3 mg/dL [facility] Phosphorus, pl 4.2 2.3 - 4.5 mg/dL [facility] Albumin 3.4(L) 3.5 - 5.0 g/dL [facility] Blood 11/26/2021 2:01 AM CDT 11/26/2021 2:44 AM CDT Kenroy Horan MD LAB BLOOD ORDERABLES Final R esult Performing Organization Address [facility] Co de Phone Number [facility] [address] [place] [address] * (ABNORMAL) POCT glucose (11/26/2021 1:22 AM CDT) Glucose, POC 151(H) 70 - 140 mg/dL [facility] Comment: For Glucose values <35 mg/dl when Hematocrit is >60 mg/dl,the test may not accurately detect significant hypoglycemia,and testing in the Laboratory should be considered if clinically indicated. Blood 11/26/2021 1:22 AM CDT 11/26/2021 1:22 AM CDT Dequan Nunez MD LAB POCT ORDERABLES - DEVICE Final Result Performing Organization Address [facility] Co de Phone Number [facility] [address] [place] [address] * (ABNORMAL) POCT glucose (11/26/2021 12:02 AM CDT) Glucose, POC 180(H) 70 - 140 mg/dL [facility] Comment: For Glucose values <35 mg/dl when Hematocrit is >60 mg/dl,the test may not accurately detect significant hypoglycemia,and testing in the Laboratory should be considered if clinically indicated. Blood 11/26/2021 12:0 2 AM CDT 11/26/2021 12:02 AM CDT Dequan Nunez MD LAB POCT ORDERABLES - DEVICE Final Result Performing Organization Address [facility] Co de Phone Number [facility] [address] [place] [address] * (ABNORMAL) POCT glucose (11/25/2021 11:00 PM CDT) Glucose, POC 141(H) 70 - 140 mg/dL [facility] Comment: For Glucose values <35 mg/dl when Hematocrit is >60 mg/dl,the test may not accurately detect significant hypoglycemia,and testing in the Laboratory should be considered if clinically indicated. Blood 11/25/2021 11:0 0 PM CDT 11/25/2021 11:00 PM CDT Dequan Nunez MD LAB POCT ORDERABLES - DEVICE Final Result Performing Organization Address [facility] de Phone Number [facility] [address] [facility] [place] [address] * POCT glucose (11/25/2021 9:37 PM CDT) Glucose, POC 133 70 - 140 mg/dL [facility] Comment: For Glucose values <35 mg/dl when Hematocrit is >60 mg/dl,the test may not accurately detect significant hypoglycemia,and testing in the Laboratory should be considered if clinically indicated. Blood 11/25/2021 9:37 PM CDT 11/25/2021 9:37 PM CDT Dequan Nunez MD LAB POCT ORDERABLES - DEVICE Final Result Performing Organization Address [facility] Co de Phone Number [facility] [address] [facility] [place], [place] [id number] * (ABNORMAL) POCT glucose (11/25/2021 8:11 PM CDT) Glucose, POC 165(H) 70 - 140 mg/dL [facility] Comment: For Glucose values <35 mg/dl when Hematocrit is >60 mg/dl,the test may not accurately detect significant hypoglycemia,and testing in the Laboratory should be considered if clinically indicated. Blood 11/25/2021 8:11 PM CDT 11/25/2021 8:11 PM CDT Dequan Nunez MD LAB POCT ORDERABLES - DEVICE Final Result Performing Organization Address St. [facility] [place] de Phone Number [facility] [address] [facility] [place] [address] * (ABNORMAL) POCT glucose (11/25/2021 6:31 PM CDT) Glucose, POC 204(H) 70 - 140 mg/dL [facility] Comment: For Glucose values <35 mg/dl when Hematocrit is >60 mg/dl,the test may not accurately detect significant hypoglycemia,and testing in the Laboratory should be considered if clinically indicated. Blood 11/25/2021 6:31 PM CDT 11/25/2021 6:31 PM CDT Dequan Nunez MD LAB POCT ORDERABLES - DEVICE Final Result Performing Organization Address [facility] Co de Phone Number [facility] [address] [facility] [place] [address] * POCT glucose (11/25/2021 5:40 PM CDT) Glucose, POC 111 70 - 140 mg/dL [facility] Comment: For Glucose values <35 mg/dl when Hematocrit is >60 mg/dl,the test may not accurately detect significant hypoglycemia,and testing in the Laboratory should be considered if clinically indicated. Blood 11/25/2021 5:40 PM CDT 11/25/2021 5:40 PM CDT Dequan Nunez MD LAB POCT ORDERABLES - DEVICE Final Result Performing Organization Address [facility] Co de Phone Number [facility] [address] [facility] [place] [address] * POCT glucose (11/25/2021 4:39 PM CDT) Glucose, POC 110 70 - 140 mg/dL [facility] Comment: For Glucose values <35 mg/dl when Hematocrit is >60 mg/dl,the test may not accurately detect significant hypoglycemia,and testing in the Laboratory should be considered if clinically indicated. Blood 11/25/2021 4:39 PM CDT 11/25/2021 4:39 PM CDT Dequan Nunez MD LAB POCT ORDERABLES - DEVICE Final Result Performing Organization Address [facility] de Phone Number [facility] [address] [facility] [place] [address] * POCT glucose (11/25/2021 3:41 PM CDT) Glucose, POC 124 70 - 140 mg/dL [facility] Comment: For Glucose values <35 mg/dl when Hematocrit is >60 mg/dl,the test may not accurately detect significant hypoglycemia,and testing in the Laboratory should be considered if clinically indicated. Blood 11/25/2021 3:41 PM CDT 11/25/2021 3:41 PM CDT Dequan Nunez MD LAB POCT ORDERABLES - DEVICE Final Result Performing Organization Address [facility] Co de Phone Number [facility] [address] [facility] [place], [place] [id number] * (ABNORMAL) POCT glucose (11/25/2021 2:49 PM CDT) Glucose, POC 162(H) 70 - 140 mg/dL [facility] Comment: For Glucose values <35 mg/dl when Hematocrit is >60 mg/dl,the test may not accurately detect significant hypoglycemia,and testing in the Laboratory should be considered if clinically indicated. Blood 11/25/2021 2:49 PM CDT 11/25/2021 2:49 PM CDT Dequan Nunez MD LAB POCT ORDERABLES - DEVICE Final Result Performing Organization Address [facility] Co de Phone Number [facility] [address] [facility] [place] [address] * (ABNORMAL) POCT glucose (11/25/2021 1:42 PM CDT) Glucose, POC 191(H) 70 - 140 mg/dL [facility] Comment: For Glucose values <35 mg/dl when Hematocrit is >60 mg/dl,the test may not accurately detect significant hypoglycemia,and testing in the Laboratory should be considered if clinically indicated. Blood 11/25/2021 1:42 PM CDT 11/25/2021 1:42 PM CDT Result [facility] Dequan Nunez MD LAB POCT ORDERABLES - DEVICE Final Result Performing Organization Address [facility] de Phone Number [facility] [address] [facility] [place] [address] * (ABNORMAL) POCT glucose (11/25/2021 12:44 PM CDT) Glucose, POC 163(H) 70 - 140 mg/dL [facility] Comment: For Glucose values <35 mg/dl when Hematocrit is >60 mg/dl,the test may not accurately detect significant hypoglycemia,and testing in the Laboratory should be considered if clinically indicated. Blood 11/25/2021 12:4 4 PM CDT 11/25/2021 12:44 PM CDT Result [facility] Dequan Nunez MD LAB POCT ORDERABLES - DEVICE Final Result Performing Organization Address [facility] Co de Phone Number [facility] [address] [facility] [place] [address] * (ABNORMAL) POCT glucose (11/25/2021 11:46 AM CDT) Glucose, POC 167(H) 70 - 140 mg/dL [facility] Comment: For Glucose values <35 mg/dl when Hematocrit is >60 mg/dl,the test may not accurately detect significant hypoglycemia,and testing in the Laboratory should be considered if clinically indicated. Blood 11/25/2021 11:4 6 AM CDT 11/25/2021 11:46 AM CDT Dequan Nunez MD LAB POCT ORDERABLES - DEVICE Final Result Performing Organization Address [facility] de Phone Number [facility] [address] [facility] [place] [address] * (ABNORMAL) POCT glucose (11/25/2021 10:37 AM CDT) Glucose, POC 168(H) 70 - 140 mg/dL [facility] Comment: For Glucose values <35 mg/dl when Hematocrit is >60 mg/dl,the test may not accurately detect significant hypoglycemia,and testing in the Laboratory should be considered if clinically indicated. Blood 11/25/2021 10:3 7 AM CDT 11/25/2021 10:37 AM CDT Dequan Nunez MD LAB POCT ORDERABLES - DEVICE Final Result Performing Organization Address [facility] Co de Phone Number [facility] [address] [facility] [place] [address] * (ABNORMAL) POCT glucose (11/25/2021 9:43 AM CDT) Glucose, POC 211(H) 70 - 140 mg/dL [facility] Comment: For Glucose values <35 mg/dl when Hematocrit is >60 mg/dl,the test may not accurately detect significant hypoglycemia,and testing in the Laboratory should be considered if clinically indicated. Blood 11/25/2021 9:43 AM CDT 11/25/2021 9:43 AM CDT Dequan Nunez MD LAB POCT ORDERABLES - DEVICE Final Result Performing Organization Address [facility] Co de Phone Number [facility] [address] [place] [address] * (ABNORMAL) POCT glucose (11/25/2021 8:49 AM CDT) Glucose, POC 176(H) 70 - 140 mg/dL [facility] Comment: For Glucose values <35 mg/dl when Hematocrit is >60 mg/dl,the test may not accurately detect significant hypoglycemia,and testing in the Laboratory should be considered if clinically indicated. Blood 11/25/2021 8:49 AM CDT 11/25/2021 8:49 AM CDT Result [facility] Dequan Nunez MD LAB POCT ORDERABLES - DEVICE Final Result Performing Organization Address [facility] de Phone Number [facility] [address] [place] [address] * Blood culture Blood (11/25/2021 8:34 AM CDT) Pathologist [facility] Report Final Report: No growth [facility] Blood 11/25/2021 8:34 AM CDT 11/25/2021 8:55 AM CDT Narrative [facility] - 11/30/2021 1:01 PM CDT From a different site than #1. Kenroy Horan MD LAB MICROBIOLOGY - GENERAL O RDERABLES Final Result Performing Organization Address [facility] Co de Phone Number [facility] [address] [place] [address] * Blood culture Blood (11/25/2021 8:34 AM CDT) Report Final Report: No growth [facility] Blood 11/25/2021 8:34 AM CDT 11/25/2021 8:55 AM CDT Kenroy Horan MD LAB MICROBIOLOGY - GENERAL O RDERABLES Final Result Performing Organization Address [facility] Co de Phone Number [facility] [address] [facility] [place] [address] * (ABNORMAL) POCT glucose (11/25/2021 7:39 AM CDT) Glucose, POC 167(H) 70 - 140 mg/dL [facility] Comment: For Glucose values <35 mg/dl when Hematocrit is >60 mg/dl,the test may not accurately detect significant hypoglycemia,and testing in the Laboratory should be considered if clinically indicated. Blood 11/25/2021 7:39 AM CDT 11/25/2021 7:39 AM CDT Dequan Nunez MD LAB POCT ORDERABLES - DEVICE Final Result Performing Organization Address [facility] de Phone Number [facility] [address] [facility] [place] [address] * (ABNORMAL) POCT glucose (11/25/2021 6:04 AM CDT) Glucose, POC 151(H) 70 - 140 mg/dL [facility] Comment: For Glucose values <35 mg/dl when Hematocrit is >60 mg/dl,the test may not accurately detect significant hypoglycemia,and testing in the Laboratory should be considered if clinically indicated. Blood 11/25/2021 6:04 AM CDT 11/25/2021 6:04 AM CDT Dequan Nunez MD LAB POCT ORDERABLES - DEVICE Final Result Performing Organization Address [facility] Co de Phone Number [facility] [address] [place] [address] * POCT glucose (11/25/2021 5:05 AM CDT) Glucose, POC 125 70 - 140 mg/dL [facility] Comment: For Glucose values <35 mg/dl when Hematocrit is >60 mg/dl,the test may not accurately detect significant hypoglycemia,and testing in the Laboratory should be considered if clinically indicated. Blood 11/25/2021 5:05 AM CDT 11/25/2021 5:05 AM CDT Dequan Nunez MD LAB POCT ORDERABLES - DEVICE Final Result Performing Organization Address [facility] Co de Phone Number [facility] [address] [facility] [place] [address] * POCT glucose (11/25/2021 4:03 AM CDT) Pathologist [facility] Glucose, POC 120 70 - 140 mg/dL [facility] Comment: For Glucose values <35 mg/dl when Hematocrit is >60 mg/dl,the test may not accurately detect significant hypoglycemia,and testing in the Laboratory should be considered if clinically indicated. Blood 11/25/2021 4:03 AM CDT 11/25/2021 4:03 AM CDT Dequan Nunez MD LAB POCT ORDERABLES - DEVICE Final Result Performing Organization Address [facility] Co de Phone Number [facility] [address] [place] [address] * eGFR (11/25/2021 3:22 AM CDT) Pathologist [facility] eGFR 103 mL/min/1. 73 m2 [facility] Comment: [...] MD LAB BLOOD ORDERABLES Final R esult [facility] [address] [place] [address] * (ABNORMAL) CBC without differential (11/25/2021 3:22 AM CDT) WBC 5.7 3.8 - 9.9 K/cumm [facility] Hgb 15.9 13.0 - 17.5 g/dL [facility] Hct 44.0 38.9 - 50.3 % [facility] Plt 224 150 - 400 K/cumm [facility] MPV 9.8 9.1 - 12.3 fL [facility] RBC 5.22 4.30 - 5.80 M/cumm [facility] MCV 84.3 81.3 - 96.4 fL [facility] MCH 30.5 27.1 - 33.3 pg [facility] MCHC 36.1(H) 32.3 - 35.7 g/dL [facility] RDW CV 13.7 11.1 - 14.9 % [facility] RDW SD 41.6 35.7 - 48.1 fL [facility] NRBC abs 0.00 0.00 - 0.01 K/cumm [facility] Blood 11/25/2021 3:22 AM CDT 11/25/2021 3:27 AM CDT Kenroy Horan MD LAB BLOOD ORDERABLES Final R esult Performing Organization Address City/[facility]/ZIP Co de Phone Number [facility] [address] [place] [address] * Magnesium (11/25/2021 3:22 AM CDT) [facility] Magnesium 1.9 1.4 - 2.5 mg/dL [facility] Blood 11/25/2021 3:22 AM CDT 11/25/2021 3:27 AM CDT Kenroy Horan MD LAB BLOOD ORDERABLES Final R esult Performing Organization Address [facility] Co de Phone Number [facility] [address] [employer] [place], [place] [id number] * (ABNORMAL) Renal function panel (11/25/2021 3:22 AM CDT) [facility] Sodium 137 135 - 145 mmol/L [facility] Potassium, pl 3.6 3.3 - 4.9 mmol/L [facility] Comment:Hemolyzed; potassium value may be falsely elevated by as much as 0.3 - 0.5 mmol/L. Suggest redraw and reanalysis Chloride 104 97 - 110 mmol/L [facility] CO2 22 22 - 32 mmol/L [facility] Anion gap 11 2 - 15 mmol/L [facility] BUN 7(L) 8 - 25 mg/dL [facility] Creatinine 1.04 0.80 - 1.30 mg/dL [facility] Glucose 138 70 - 199 mg/dL [facility] [...] 2017. Calcium 9.1 8.5 - 10.3 mg/dL [facility] Phosphorus, pl 2.8 2.3 - 4.5 mg/dL [facility] Albumin 3.8 3.5 - 5.0 g/dL [facility] Blood 11/25/2021 3:22 AM CDT 11/25/2021 3:27 AM CDT Kenroy Horan MD LAB BLOOD ORDERABLES Final R esult Performing Organization Address City/[facility]/ZIP Co de Phone Number [facility] [address] [place] [address] * (ABNORMAL) POCT glucose (11/25/2021 2:58 AM CDT) [facility] Signature Glucose, POC 153(H) 70 - 140 mg/dL [facility] Comment: For Glucose values <35 mg/dl when Hematocrit is >60 mg/dl,the test may not accurately detect significant hypoglycemia,and testing in the Laboratory should be considered if clinically indicated. Blood 11/25/2021 2:58 AM CDT 11/25/2021 2:58 AM CDT Dequan Nunez MD LAB POCT ORDERABLES - DEVICE Final Result [facility] [address] Department [place] [address] * (ABNORMAL) POCT glucose (11/25/2021 1:41 AM CDT) Glucose, POC 156(H) 70 - 140 mg/dL [facility] Comment: For Glucose values <35 mg/dl when Hematocrit is >60 mg/dl,the test may not accurately detect significant hypoglycemia,and testing in the Laboratory should be considered if clinically indicated. Blood 11/25/2021 1:41 AM CDT 11/25/2021 1:41 AM CDT Dequan Nunez MD LAB POCT ORDERABLES - DEVICE Final Result Performing Organization Address [facility] Co de Phone Number [facility] [address] [facility] [place] [address] * (ABNORMAL) POCT glucose (11/25/2021 12:24 AM CDT) Glucose, POC 206(H) 70 - 140 mg/dL [facility] Comment: For Glucose values <35 mg/dl when Hematocrit is >60 mg/dl,the test may not accurately detect significant hypoglycemia,and testing in the Laboratory should be considered if clinically indicated. Blood 11/25/2021 12:2 4 AM CDT 11/25/2021 12:24 AM CDT Dequan Nunez MD LAB POCT ORDERABLES - DEVICE Final Result Performing Organization Address [facility] Co de Phone Number [facility] [address] [facility] [place] [employer] [address] * (ABNORMAL) POCT glucose (11/24/2021 11:05 PM CDT) Glucose, POC 252(H) 70 - 140 mg/dL [facility] Comment: For Glucose values <35 mg/dl when Hematocrit is >60 mg/dl,the test may not accurately detect significant hypoglycemia,and testing in the Laboratory should be considered if clinically indicated. Blood 11/24/2021 11:0 5 PM CDT 11/24/2021 11:05 PM CDT Dequan Nunez MD LAB POCT ORDERABLES - DEVICE Final Result Performing Organization Address [facility] Co de Phone Number [facility] [address] [facility] [place] [address] * (ABNORMAL) POCT glucose (11/24/2021 9:50 PM CDT) Glucose, POC 206(H) 70 - 140 mg/dL [facility] Comment: For Glucose values <35 mg/dl when Hematocrit is >60 mg/dl,the test may not accurately detect significant hypoglycemia,and testing in the Laboratory should be considered if clinically indicated. Blood 11/24/2021 9:50 PM CDT 11/24/2021 9:50 PM CDT Dequan Nunez MD LAB POCT ORDERABLES - DEVICE Final Result Performing Organization Address [facility] de Phone Number [facility] [address] [facility] [place] [address] * (ABNORMAL) POCT glucose (11/24/2021 8:25 PM CDT) Glucose, POC 181(H) 70 - 140 mg/dL [facility] Comment: For Glucose values <35 mg/dl when Hematocrit is >60 mg/dl,the test may not accurately detect significant hypoglycemia,and testing in the Laboratory should be considered if clinically indicated. Blood 11/24/2021 8:25 PM CDT 11/24/2021 8:25 PM CDT Dequan Nunez MD LAB POCT ORDERABLES - DEVICE Final Result Performing Organization Address [facility] Co de Phone Number [facility] [address] [facility] [place] [address] * (ABNORMAL) POCT glucose (11/24/2021 7:28 PM CDT) Glucose, POC 168(H) 70 - 140 mg/dL [facility] Comment: For Glucose values <35 mg/dl when Hematocrit is >60 mg/dl,the test may not accurately detect significant hypoglycemia,and testing in the Laboratory should be considered if clinically indicated. Blood 11/24/2021 7:28 PM CDT 11/24/2021 7:28 PM CDT Result [facility] Dequan Nunez MD LAB POCT ORDERABLES - DEVICE Final Result Performing Organization Address [facility] de Phone Number [facility] [address] [facility] [place] [address] * (ABNORMAL) POCT glucose (11/24/2021 6:23 PM CDT) Glucose, POC 168(H) 70 - 140 mg/dL [facility] Comment: For Glucose values <35 mg/dl when Hematocrit is >60 mg/dl,the test may not accurately detect significant hypoglycemia,and testing in the Laboratory should be considered if clinically indicated. Blood 11/24/2021 6:23 PM CDT 11/24/2021 6:23 PM CDT Result [facility] Dequan Nunez MD LAB POCT ORDERABLES - DEVICE Final Result Performing Organization Address [facility] de Phone Number [facility] [address] [facility] [place] [address] * (ABNORMAL) POCT glucose (11/24/2021 5:15 PM CDT) Glucose, POC 176(H) 70 - 140 mg/dL [facility] Comment: For Glucose values <35 mg/dl when Hematocrit is >60 mg/dl,the test may not accurately detect significant hypoglycemia,and testing in the Laboratory should be considered if clinically indicated. Blood 11/24/2021 5:15 PM CDT 11/24/2021 5:15 PM CDT Result [facility] Dequan Nunez MD LAB POCT ORDERABLES - DEVICE Final Result Performing Organization Address [facility] Co de Phone Number [facility] [address] [facility] [place] [address] * (ABNORMAL) POCT glucose (11/24/2021 4:19 PM CDT) Glucose, POC 192(H) 70 - 140 mg/dL [facility] Comment: For Glucose values <35 mg/dl when Hematocrit is >60 mg/dl,the test may not accurately detect significant hypoglycemia,and testing in the Laboratory should be considered if clinically indicated. Blood 11/24/2021 4:19 PM CDT 11/24/2021 4:19 PM CDT Dequan Nunez MD LAB POCT ORDERABLES - DEVICE Final Result Performing Organization Address [facility] de Phone Number [facility] [address] [place] [address] * eGFR (11/24/2021 3:40 PM CDT) eGFR 130 mL/min/1. 73 m2 [facility] Comment: [...] MD LAB BLOOD ORDERABLES Final R esult [facility] [address] [place] [address] * (ABNORMAL) Triglycerides (11/24/2021 3:40 PM CDT) Triglycerides >885(H) <=149 mg/dL [facility] Comment: Interpretive Data Ages < [...] ORDERABLES Final R esult Performing Organization Address City/[facility]/ZIP Co de Phone Number [facility] [address] [facility] [place], [place] [id number] * Phosphorus (11/24/2021 3:40 PM CDT) Pathologist [facility] Phosphorus, pl 2.8 2.3 - 4.5 mg/dL [facility] Blood 11/24/2021 3:40 PM CDT 11/24/2021 4:05 PM CDT Isidro Leyva MD LAB BLOOD ORDERABLES Final R esult Performing Organization Address [facility] Co de Phone Number [facility] [address] [facility] [place] [address] * Magnesium (11/24/2021 3:40 PM CDT) [facility] Magnesium 1.7 1.4 - 2.5 mg/dL [facility] Blood 11/24/2021 3:40 PM CDT 11/24/2021 4:05 PM CDT us Isidro Leyva MD LAB BLOOD ORDERABLES Final R esult Performing Organization Address [facility] Co de Phone Number [facility] [address] Department [place], [place] [id number] * (ABNORMAL) Basic metabolic panel (11/24/2021 3:40 PM CDT) Pathologist [facility] Sodium 136 135 - 145 mmol/L [facility] Potassium, pl 3.4 3.3 - 4.9 mmol/L [facility] Comment:Hemolyzed; potassium value may be falsely elevated by as much as 0.3 - 0.5 mmol/L. Suggest redraw and reanalysis Chloride 101 97 - 110 mmol/L [facility] CO2 20(L) 22 - 32 mmol/L [facility] Anion gap 15 2 - 15 mmol/L [facility] BUN 9 8 - 25 mg/dL [facility] Creatinine 0.75(L) 0.80 - 1.30 mg/dL [facility] Glucose 162 70 - 199 mg/dL [facility] [...] 2017. Calcium 8.8 8.5 - 10.3 mg/dL [facility] Blood 11/24/2021 3:40 PM CDT 11/24/2021 4:05 PM CDT us Isidro Leyva MD LAB BLOOD ORDERABLES Final R esult [facility] [address] [place] [address] * (ABNORMAL) POCT glucose (11/24/2021 3:28 PM CDT) [facility] Signature Glucose, POC 167(H) 70 - 140 mg/dL [facility] Comment: For Glucose values <35 mg/dl when Hematocrit is >60 mg/dl,the test may not accurately detect significant hypoglycemia,and testing in the Laboratory should be considered if clinically indicated. Blood 11/24/2021 3:28 PM CDT 11/24/2021 3:28 PM CDT us Dequan Nunez MD LAB POCT ORDERABLES - DEVICE Final Result [facility] [address] [place] [address] * (ABNORMAL) POCT glucose (11/24/2021 2:20 PM CDT) Glucose, POC 154(H) 70 - 140 mg/dL [facility] Comment: For Glucose values <35 mg/dl when Hematocrit is >60 mg/dl,the test may not accurately detect significant hypoglycemia,and testing in the Laboratory should be considered if clinically indicated. Blood 11/24/2021 2:20 PM CDT 11/24/2021 2:20 PM CDT Dequan Nunez MD LAB POCT ORDERABLES - DEVICE Final Result Performing Organization Address [facility] Co de Phone Number [facility] [address] [facility] [place] [address] * (ABNORMAL) POCT glucose (11/24/2021 1:18 PM CDT) Glucose, POC 142(H) 70 - 140 mg/dL [facility] Comment: For Glucose values <35 mg/dl when Hematocrit is >60 mg/dl,the test may not accurately detect significant hypoglycemia,and testing in the Laboratory should be considered if clinically indicated. Blood 11/24/2021 1:18 PM CDT 11/24/2021 1:18 PM CDT Dequan Nunez MD LAB POCT ORDERABLES - DEVICE Final Result Performing Organization Address [facility] Hospital/[facility] Co de Phone Number [facility] [address] [facility] [place] [address] * (ABNORMAL) POCT glucose (11/24/2021 12:14 PM CDT) Glucose, POC 186(H) 70 - 140 mg/dL [facility] Comment: For Glucose values <35 mg/dl when Hematocrit is >60 mg/dl,the test may not accurately detect significant hypoglycemia,and testing in the Laboratory should be considered if clinically indicated. Blood 11/24/2021 12:1 4 PM CDT 11/24/2021 12:14 PM CDT Dequan Nunez MD LAB POCT ORDERABLES - DEVICE Final Result Performing Organization Address [facility] Co de Phone Number [facility] [address] [facility] [place] [address] * (ABNORMAL) POCT glucose (11/24/2021 11:19 AM CDT) Glucose, POC 202(H) 70 - 140 mg/dL [facility] Comment: For Glucose values <35 mg/dl when Hematocrit is >60 mg/dl,the test may not accurately detect significant hypoglycemia,and testing in the Laboratory should be considered if clinically indicated. Blood 11/24/2021 11:1 9 AM CDT 11/24/2021 11:19 AM CDT Dequan Nunez MD LAB POCT ORDERABLES - DEVICE Final Result Performing Organization Address [facility] de Phone Number [facility] [address] [facility] [place] [address] * (ABNORMAL) POCT glucose (11/24/2021 10:04 AM CDT) Glucose, POC 190(H) 70 - 140 mg/dL [facility] Comment: For Glucose values <35 mg/dl when Hematocrit is >60 mg/dl,the test may not accurately detect significant hypoglycemia,and testing in the Laboratory should be considered if clinically indicated. Blood 11/24/2021 10:0 4 AM CDT 11/24/2021 10:04 AM CDT Dequan Nunez MD LAB POCT ORDERABLES - DEVICE Final Result Performing Organization Address [facility] Co de Phone Number [facility] [address] [place] [address] * (ABNORMAL) POCT glucose (11/24/2021 8:54 AM CDT) Pathologist [facility] Glucose, POC 201(H) 70 - 140 mg/dL [facility] Comment: For Glucose values <35 mg/dl when Hematocrit is >60 mg/dl,the test may not accurately detect significant hypoglycemia,and testing in the Laboratory should be considered if clinically indicated. Blood 11/24/2021 8:54 AM CDT 11/24/2021 8:54 AM CDT Dequan Nunez MD LAB POCT ORDERABLES - DEVICE Final Result Performing Organization Address [facility] Co de Phone Number [facility] [address] [employer] [place], [place] [id number] * Lipase - Add on lab test (11/24/2021 8:03 AM CDT) [facility] Acceptable Yes [facility] Blood 11/24/2021 8:03 AM CDT 11/24/2021 8:03 AM CDT Narrative [facility] - 11/24/2021 8:03 AM CDT Name of Test->Lipase Kenroy Horan MD LAB BLOOD ORDERABLES Final R esult Performing Organization Address [facility] Co de Phone Number [facility] [address] [employer] [place], [place] [id number] * Amylase - Add on lab test (11/24/2021 8:03 AM CDT) [facility] Acceptable Yes [facility] Blood 11/24/2021 8:03 AM CDT 11/24/2021 8:03 AM CDT Narrative [facility] - 11/24/2021 8:04 AM CDT Name of Test->Amylase Kenroy Horan MD LAB BLOOD ORDERABLES Final R esult Performing Organization Address [facility] Co de Phone Number [facility] [address] Department [employer] [place], [place] [id number] * (ABNORMAL) POCT glucose (11/24/2021 7:48 AM CDT) Glucose, POC 223(H) 70 - 140 mg/dL [facility] Comment: For Glucose values <35 mg/dl when Hematocrit is >60 mg/dl,the test may not accurately detect significant hypoglycemia,and testing in the Laboratory should be considered if clinically indicated. Blood 11/24/2021 7:48 AM CDT 11/24/2021 7:48 AM CDT Dequan Nunez MD LAB POCT ORDERABLES - DEVICE Final Result Performing Organization Address [facility] Co de Phone Number [facility] [address] [facility] [place] [address] * BMP - Add on lab test (11/24/2021 7:15 AM CDT) [facility] Acceptable Yes [facility] Blood 11/24/2021 7:15 AM CDT 11/24/2021 7:15 AM CDT Narrative [facility] - 11/24/2021 7:15 AM CDT Name of Test->BMP Kenroy Horan MD LAB BLOOD ORDERABLES Final R esult Performing Organization Address [facility] Co de Phone Number [facility] [address] [place] [address] * Lipase (11/24/2021 6:49 AM CDT) [facility] Lipase 27 10 - 99 Units/L [facility] Blood 11/24/2021 6:49 AM CDT 11/24/2021 6:52 AM CDT Dequan Nunez MD LAB BLOOD ORDERABLES Final R esult Performing Organization Address City/[facility] Co de Phone Number [facility] [address] [place] [address] * (ABNORMAL) Amylase (11/24/2021 6:49 AM CDT) Amylase 22(L) 30 - 99 Units/L [facility] Blood 11/24/2021 6:49 AM CDT 11/24/2021 6:52 AM CDT us Dequan Nunez MD LAB BLOOD ORDERABLES Final R esult [facility] [address] [place] [address] * eGFR (11/24/2021 6:49 AM CDT) eGFR 148 mL/min/1. 73 m2 [facility] Comment: [...] ORDERABLES Final R esult Performing Organization Address City/[facility]/ZIP Co de Phone Number [facility] [address] [place] [address] * (ABNORMAL) Basic metabolic panel (11/24/2021 6:49 AM CDT) Sodium 132(L) 135 - 145 mmol/L [facility] Potassium, pl 3.6 3.3 - 4.9 mmol/L [facility] Comment:Hemolyzed; potassium value may be falsely elevated by as much as 0.6 - 1.0 mmol/L. Suggest redraw and reanalysis Chloride 100 97 - 110 mmol/L [facility] CO2 18(L) 22 - 32 mmol/L [facility] Anion gap 14 2 - 15 mmol/L [facility] BUN 9 8 - 25 mg/dL [facility] Creatinine 0.49(L) 0.80 - 1.30 mg/dL [facility] Glucose 229(H) 70 - 199 mg/dL [facility] [...] 2017. Calcium 8.2(L) 8.5 - 10.3 mg/dL [facility] Blood 11/24/2021 6:49 AM CDT 11/24/2021 6:52 AM CDT Dequan Nunez MD LAB BLOOD ORDERABLES Final R vuult Performing Organization Address City/[facility]/ZIP Co de Phone Number [facility] [address] [place] [address] * (ABNORMAL) Triglycerides (11/24/2021 6:49 AM CDT) Pathologist [facility] Triglycerides 2,291(H) <=149 mg/dL [facility] Comment: Interpretive Data Ages < [...] MD LAB BLOOD ORDERABLES Final R esult [facility] [address] [place] [address] * (ABNORMAL) POCT glucose (11/24/2021 6:06 AM CDT) Glucose, POC 256(H) 70 - 140 mg/dL [facility] Comment: For Glucose values <35 mg/dl when Hematocrit is >60 mg/dl,the test may not accurately detect significant hypoglycemia,and testing in the Laboratory should be considered if clinically indicated. Blood 11/24/2021 6:06 AM CDT 11/24/2021 6:06 AM CDT Dequan Nunez MD LAB POCT ORDERABLES - DEVICE Final Result Performing Organization Address [facility] Co de Phone Number [facility] [address] [facility] [place], [place] [id number] * (ABNORMAL) POCT glucose (11/24/2021 5:12 AM CDT) Glucose, POC 265(H) 70 - 140 mg/dL [facility] Comment: For Glucose values <35 mg/dl when Hematocrit is >60 mg/dl,the test may not accurately detect significant hypoglycemia,and testing in the Laboratory should be considered if clinically indicated. Blood 11/24/2021 5:12 AM CDT 11/24/2021 5:12 AM CDT Dequan Nunez MD LAB POCT ORDERABLES - DEVICE Final Result Performing Organization Address [facility] Co de Phone Number [facility] [address] [facility] [place], [place] [id number] * Phosphorus (11/24/2021 4:36 AM CDT) Phosphorus, pl 3.4 2.3 - 4.5 mg/dL [facility] Blood 11/24/2021 4:36 AM CDT 11/24/2021 4:36 AM CDT Dequan Nunez MD LAB BLOOD ORDERABLES Final R esult Performing Organization Address [facility] Co de Phone Number [facility] [address] [facility] [place] [address] * Magnesium (11/24/2021 4:36 AM CDT) Magnesium 1.5 1.4 - 2.5 mg/dL [facility] Blood 11/24/2021 4:36 AM CDT 11/24/2021 4:36 AM CDT us Isidro Leyva MD LAB BLOOD ORDERABLES Final R esult Performing Organization Address [facility] Co de Phone Number [facility] [address] Department [employer] [place], [place] [id number] * (ABNORMAL) POCT glucose (11/24/2021 4:07 AM CDT) Glucose, POC 266(H) 70 - 140 mg/dL [facility] Comment: For Glucose values <35 mg/dl when Hematocrit is >60 mg/dl,the test may not accurately detect significant hypoglycemia,and testing in the Laboratory should be considered if clinically indicated. Blood 11/24/2021 4:07 AM CDT 11/24/2021 4:07 AM CDT Dequan Nunez MD LAB POCT ORDERABLES - DEVICE Final Result Performing Organization Address [facility] de Phone Number [facility] [address] [place] [address] * eGFR (11/24/2021 3:58 AM CDT) eGFR 140 mL/min/1. 73 m2 [facility] Comment: [...] ORDERABLES Final R esult Performing Organization Address [facility] Co de Phone Number [facility] [address] [place] [address] * Phosphorus (11/24/2021 3:58 AM CDT) Phosphorus, pl See Comment 2.3 - 4.5 [facility] Comment:Test results inaccur ately filed to this patient's record. Test will be credited. Blood 11/24/2021 3:58 AM CDT 11/24/2021 4:36 AM CDT Isidro Leyva MD LAB BLOOD ORDERABLES Final R esult Performing Organization Address [facility] Co de Phone Number [facility] [address] [place] [address] * (ABNORMAL) Basic metabolic panel (11/24/2021 3:58 AM CDT) Sodium 130(L) 135 - 145 mmol/L [facility] Potassium, pl See Comment 3.3 - 4.9 [facility] Comment:Specimen hemolyzed. See whole blood potassium result. Chloride 98 97 - 110 mmol/L [facility] CO2 19(L) 22 - 32 mmol/L [facility] Anion gap 13 2 - 15 mmol/L [facility] BUN 11 8 - 25 mg/dL [facility] Creatinine 0.59(L) 0.80 - 1.30 mg/dL [facility] Glucose 252(H) 70 - 199 mg/dL [facility] [...] 2017. Calcium 8.1(L) 8.5 - 10.3 mg/dL [facility] Blood 11/24/2021 3:58 AM CDT 11/24/2021 4:36 AM CDT us Isidro Leyva MD LAB BLOOD ORDERABLES Final R esult Performing Organization Address City/[facility] Co de Phone Number [facility] [address] [place] [address] * Magnesium (11/24/2021 3:58 AM CDT) Magnesium 1.6 1.4 - 2.5 mg/dL [facility] Blood 11/24/2021 3:58 AM CDT 11/24/2021 4:36 AM CDT Isidro Leyva MD LAB BLOOD ORDERABLES Final R esult Performing Organization Address City/[facility]/ZIP Co de Phone Number [facility] [address] [place] [address] * (ABNORMAL) CBC without differential (11/24/2021 3:58 AM CDT) WBC 4.2 3.8 - 9.9 K/cumm [facility] Hgb 14.8 13.0 - 17.5 g/dL [facility] Hct 38.1(L) 38.9 - 50.3 % [facility] Plt 216 150 - 400 K/cumm [facility] MPV 9.6 9.1 - 12.3 fL [facility] RBC 4.74 4.30 - 5.80 M/cumm [facility] MCV 80.4(L) 81.3 - 96.4 fL [facility] MCH 31.2 27.1 - 33.3 pg [facility] MCHC 38.8(H) 32.3 - 35.7 g/dL [facility] RDW CV 13.2 11.1 - 14.9 % [facility] RDW SD 37.6 35.7 - 48.1 fL [facility] NRBC abs 0.00 0.00 - 0.01 K/cumm [facility] Blood 11/24/2021 3:58 AM CDT 11/24/2021 4:35 AM CDT us Isidro Leyva MD LAB BLOOD ORDERABLES Edited Result - Final [facility] [address] [place] [address] * (ABNORMAL) Urinalysis, microscopic only (11/24/2021 3:10 AM CDT) Pathologist [facility] WBC, ur 0-5 0 - 5 /HPF [facility] RBC, ur 0-2 0 - 2 /HPF [facility] Epithelial cells, squamous, ur 1-5 0 - 5 /HPF [facility] Bacteria, ur Trace(A) [facility] Mucous, ur Present(A) [facility] Culture Reflex Comment Reflex conditions for urine culture (WBC >10) not met. [facility] Urine 11/24/2021 3:10 AM CDT 11/24/2021 3:29 AM CDT us Isidro Leyva MD LAB URINE ORDERABLES Final R esult Performing Organization Address [facility]/ZIP Co de Phone Number [facility] [address] [place] [address] * (ABNORMAL) Urinalysis reflex to microscopic and culture Urine (11/24/2021 3:10 AM CDT) Color, ur Yellow Yellow [facility] Clarity, ur Clear Clear [facility] Specific gravity, ur 1.026 1.003 - 1.030 [facility] pH, urine 5.5 [facility] Protein, ur ql 1+(A) Negative [facility] Glucose, ur ql 4+(A) Negative [facility] Ketones, ur 4+(A) Negative [facility] Bilirubin, ur Negative Negative [facility] Blood, ur Negative Negative [facility] Urobilinogen, ur <2.0 <2.0 mg/dL [facility] Nitrite, ur Negative Negative [facility] Leukocyte esterase, ur Negative Negative [facility] UA reflex comment Reflex to microscopic UA will be performed. [facility] Urine 11/24/2021 3:10 AM CDT 11/24/2021 3:29 AM CDT Narrative [facility] - 11/24/2021 3:32 AM CDT ?? Urine pH is affected by diet, medications, systemic acid-base disturbances, and renal tubular function. ??pH may affect urinary stone formation. ??For example, urine pH below 6.0 may help reduce the tendency for calcium phosphate stones and pH greater than 6.0 may reduce the tendency for uric acid stone formation. Source: [employer]. Last revised 05-16-2017 us Isidro Leyva MD LAB MICROBIOLOGY - GENERAL O RDERABLES Final Result Performing Organization Address [facility]/ZIP Co de Phone Number [facility] [address] [place] [address] * (ABNORMAL) POCT glucose (11/24/2021 3:05 AM CDT) Glucose, POC 273(H) 70 - 140 mg/dL [facility] Comment: For Glucose values <35 mg/dl when Hematocrit is >60 mg/dl,the test may not accurately detect significant hypoglycemia,and testing in the Laboratory should be considered if clinically indicated. Blood 11/24/2021 3:05 AM CDT 11/24/2021 3:05 AM CDT Dequan Nunez MD LAB POCT ORDERABLES - DEVICE Final Result Performing Organization Address [facility] de Phone Number [facility] [address] [place] [address] * (ABNORMAL) POCT glucose (11/24/2021 2:01 AM CDT) [facility] Signature Glucose, POC 256(H) 70 - 140 mg/dL [facility] Comment: For Glucose values <35 mg/dl when Hematocrit is >60 mg/dl,the test may not accurately detect significant hypoglycemia,and testing in the Laboratory should be considered if clinically indicated. Blood 11/24/2021 2:01 AM CDT 11/24/2021 2:01 AM CDT Dequan Nunez MD LAB POCT ORDERABLES - DEVICE Final Result Performing Organization Address [facility] de Phone Number [facility] [address] [place] [address] documented in this encounter Visit Diagnoses Diagnosis [...] complication, with long-term current use of insulin ([facility]) ([facility]),Diabetic ketoacidosis without coma associated with type 2 diabetes mellitus (CMS/HCC) ([facility]) Use to continually monitor glucose, change every 10 days 07/07/2021 11/24/2021 Dexcom G6 Transmitter deviceIndications:Type 2 diabetes mellitus without complication, with long-term current use of insulin (CMS/HCC) (HCC),Diabetic ketoacidosis without coma associated with type 2 diabetes mellitus (CMS/HCC) (HCC) Use to continually monitor glucose, change every 90 days 07/07/2021 11/24/2021 pen needle, diabetic (BD Ultra-Fine Ibeth Pen Needle) 32 gauge x 5/32 needleIndications:Jefferson bolic syndrome Use to inject insulin BG [...] Sat11/24/21 at 0900 0847 (Given - Provider: aJne Zepeda RN) 0954 (Given - Provider: Annika [...] ENDOCRINOLOGY 2 11/25/2021 11/24/2021 IP CONSULT TO SENIOR ANALYTIC CONSULTANT 1 Admission Count Last Ordered Date First Orde red Date ADMIT TO INPATIENT 1 11/24/2021 Discharge Count Last Ordered Date First Orde red Date DISCHARGE PATIENT 1 11/27/2021 documented in this encounter Care Teams Gripper Machine Operator Relationship Specialty Start Date End Date Keila Jimenez MD [address] [place] [address] PCP - General 6/26/22 Mariana Monique MD [address] [place] [address] Referring Physician Internal Medicine 01/17/20 documented as of this encounter
--- OUTSIDE RECORDS SUMMARY | 2024-05-10 20:20 | XMS_ITS | Encounter Summary ---
Author Organization [facility] Healthcare Address [address] [place] [address] Care Team Providers Care Marketing Programs Manager Name Role Phone Mariana Monique MD Unavailable [phone] Keila Jimenez MD Primary Care Provider Encounter Details Date Type Department Care Team (Late st Contact Info) Description 12/01/2021 Telephone [facility] [address] [facility] [address] [place] [address] Keila Jimenez MD [address] [facility] [address] [place] [address] Social History Tobacco Use Types [...] often do you attend chur ch or church services? 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 Schedulers, if patient calls back, please schedule PHV. Jose Campoverde [phone] * Telephone Encounter - Jose Saavedra - [...] on filedocumented in this encounter Care Teams Marketing Programs Manager Relationship Specialty Start Date End Date Keila Jimenez MD [address] [place] [address] PCP - General 10/29/21 Mariana Monique MD [address] [place], [place] [id number] Referring Physician Internal Medicine 01/17/20 documented as of this encounter
--- OUTSIDE RECORDS SUMMARY | 2024-05-10 20:20 | XMS_ITS | Encounter Summary ---
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 Gender Identity Male 12/18/2017 12:38 PM CDT Sexual Orientation Not on file 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 Not on file [...] Time of Discharge blood-glucose meter,continuous (Dexcom G7 Retail Services Professional) miscIndications:Type 2 diabetes mellitus without complication, with long-term current use of insulin ([facility]) Use to continually monitor glucose 1 each [...] complication, with long-term current use of insulin ([facility]) Use to continually monitor glucose, [...] (ABNORMAL) POCT glucose (11/12/2022 7:11 PM CDT) [facility] Glucose, POC 341(H) 70 - 140 mg/dL [facility] Comment: For Glucose values <35 mg/dl when Hematocrit is >60 mg/dl,the test may not accurately detect significant hypoglycemia,and testing in the Laboratory should be considered if clinically indicated. Blood 11/12/2022 7:11 PM CDT 11/12/2022 7:11 PM CDT us Notinfile Unknown LAB POCT ORDERABLES - DEVICE F inal Result [facility] [address] Department [place] [address] * eGFR (11/12/2022 5:42 PM CDT) [facility] eGFR 88 mL/min/1. 73 m2 [facility] Comment: Interpretive Data Reference Interval [...] ORDERABLES Fin al Result Performing Organization Address [facility] de Phone Number [facility] [address] Department of Laboratories [place], [place] [id number] * Urinalysis, microscopic only (11/12/2022 5:42 PM CDT) Pathologist [facility] WBC, ur 0-5 0 - 5 /HPF [facility] RBC, ur 0-2 0 - 2 /HPF [facility] Epithelial cells, squamous, ur 1-5 0 - 5 /HPF [facility] Culture Reflex Comment Reflex conditions for urine culture (WBC >10) not met. [facility] Urine, clean voided 11/12/2022 5:42 PM CDT 11/12/2022 5:52 PM CDT Sal Licea MD LAB URINE ORDERABLES Fin al Result Performing Organization Address [facility] Co de Phone Number [facility] [address] Department of Laboratories [place], [place] [id number] * Differential, auto (11/12/2022 5:42 PM CDT) Neutrophil abs 2.8 1.7 - 6.5 K/cumm [facility] Imm gran abs 0.0 0.0 - 0.1 K/cumm [facility] Lymphocyte abs 1.8 0.8 - 3.3 K/cumm [facility] Monocyte abs 0.3 0.2 - 0.8 K/cumm [facility] Eosinophil abs 0.2 0.0 - 0.5 K/cumm [facility] Basophil abs 0.0 0.0 - 0.1 K/cumm [facility] Neutrophil pct 53.8 % [facility] Comment: Interpretive Data Percent cell count reference ranges are not reported, since discordance with absolute values may lead to misinterpretation of CBC data. Current Interpretive Data was last revised on 2017. Imm gran pct 0.2 % [facility] Comment: Interpretive Data Percent cell count reference ranges are not reported, since discordance with absolute values may lead to misinterpretation of CBC data. Current Interpretive Data was last revised on 2017. Lymphocyte pct 35.9 % [facility] Comment: Interpretive Data Percent cell count reference ranges are not reported, since discordance with absolute values may lead to misinterpretation of CBC data. Current Interpretive Data was last revised on 2017. Monocyte pct 6.4 % [facility] Comment: Interpretive Data Percent cell count reference ranges are not reported, since discordance with absolute values may lead to misinterpretation of CBC data. Current Interpretive Data was last revised on 2017. Eosinophil pct 3.1 % [facility] Comment: Interpretive Data Percent cell count reference ranges are not reported, since discordance with absolute values may lead to misinterpretation of CBC data. Current Interpretive Data was last revised on 2017. Basophil pct 0.6 % [facility] Comment: Interpretive Data Percent cell count reference ranges are not reported, since discordance with absolute values may lead to misinterpretation of CBC data. Current Interpretive Data was last revised on 2017. Blood 11/12/2022 5:42 PM CDT 11/12/2022 5:52 PM CDT us Sal Licea MD LAB BLOOD ORDERABLES Fin al Result Performing Organization Address [facility]/ZIP Co de Phone Number [facility] [address] Department [place] [address] * (ABNORMAL) Urinalysis reflex to microscopic and culture Urine, clean voided (11/12/2022 5:42 PM CDT) Color, ur Yellow Yellow [facility] Clarity, ur Clear Clear [facility] Specific gravity, ur 1.030 1.003 - 1.030 [facility] pH, urine 6.0 [facility] Protein, ur ql 1+(A) Negative [facility] Glucose, ur ql 4+(A) Negative [facility] Ketones, ur Trace Negative [facility] Bilirubin, ur Negative Negative [facility] Blood, ur Negative Negative [facility] Urobilinogen, ur <2.0 <2.0 mg/dL [facility] Nitrite, ur Negative Negative [facility] Leukocyte esterase, ur Negative Negative [facility] UA reflex comment Reflex to microscopic UA will be performed. [facility] Urine, clean voided 11/12/2022 5:42 PM CDT 11/12/2022 5:52 PM CDT Narrative [facility] - 11/12/2022 6:04 PM CDT ?? Urine pH is affected by diet, medications, systemic acid-base disturbances, and renal tubular function. ??pH may affect urinary stone formation. ??For example, urine pH below 6.0 may help reduce the tendency for calcium phosphate stones and pH greater than 6.0 may reduce the tendency for uric acid stone formation. Source: [facility] [place]. Last revised 05-16-2017 Sal Licea MD LAB MICROBIOLOGY - GENER AL ORDERABLES Final Result Performing Organization Address [facility]/ZIP Co de Phone Number [facility] [address] Department [place] [address] * (ABNORMAL) Comprehensive metabolic panel (11/12/2022 5:42 PM CDT) Sodium 130(L) 135 - 145 mmol/L [facility] Potassium, pl 4.8 3.3 - 4.9 mmol/L [facility] Comment:Hemolyzed; potassium value may be falsely elevated by as much as 0.3 - 0.5 mmol/L. Suggest redraw and reanalysis Chloride 95(L) 97 - 110 mmol/L [facility] CO2 23 22 - 32 mmol/L [facility] Anion gap 12 2 - 15 mmol/L [facility] BUN 16 6 - 25 mg/dL [facility] Creatinine 1.18 0.80 - 1.30 mg/dL [facility] Glucose 343(H) 70 - 199 mg/dL [facility] Comment: Interpretive Data Fasting glucose [...] 2022. Calcium 9.7 8.5 - 10.3 mg/dL [facility] Bilirubin, total 0.2 0.1 - 1.2 mg/dL [facility] Protein, pl 7.0 6.5 - 8.5 g/dL [facility] Albumin 4.1 3.5 - 5.0 g/dL [facility] Alk phos 99 40 - 130 Units/L [facility] ALT 58(H) 7 - 55 Units/L [facility] AST 41 10 - 50 Units/L [facility] Comment:Slightly Hemolyzed S pecimen Blood 11/12/2022 5:42 PM CDT 11/12/2022 5:52 PM CDT us Sal Licea MD LAB BLOOD ORDERABLES Fin al Result [facility] [address] [place] [address] * (ABNORMAL) CBC with auto differential (11/12/2022 5:42 PM CDT) [facility] WBC 5.1 3.8 - 9.9 K/cumm [facility] Hgb 15.5 13.0 - 17.5 g/dL [facility] Hct 42.7 38.9 - 50.3 % [facility] Plt 270 150 - 400 K/cumm [facility] MPV 9.9 9.1 - 12.3 fL [facility] RBC 5.13 4.30 - 5.80 M/cumm [facility] MCV 83.2 81.3 - 96.4 fL [facility] MCH 30.2 27.1 - 33.3 pg [facility] MCHC 36.3(H) 32.3 - 35.7 g/dL [facility] RDW CV 12.0 11.1 - 14.9 % [facility] RDW SD 36.5 35.7 - 48.1 fL [facility] NRBC abs 0.00 0.00 - 0.01 K/cumm [facility] Blood 11/12/2022 5:42 PM CDT 11/12/2022 5:52 PM CDT us Sal Licea MD LAB BLOOD ORDERABLES Fin al Result [facility] [address] Department [place] [address] * (ABNORMAL) POCT glucose (11/12/2022 5:31 PM CDT) [facility] Glucose, POC 339(H) 70 - 140 mg/dL [facility] Comment: For Glucose values <35 mg/dl when Hematocrit is >60 mg/dl,the test may not accurately detect significant hypoglycemia,and testing in the Laboratory should be considered if clinically indicated. Blood 11/12/2022 5:31 PM CDT 11/12/2022 5:31 PM CDT us Notinfile Unknown LAB POCT ORDERABLES - DEVICE F inal Result [facility] [address] Department [place] [address] documented in this encounter Visit Diagnoses Not on filedocumented in this encounter Care Teams Film Washer Relationship Specialty Start Date End Date Keila Jimenez MD [address] [place], [place] [id number] PCP - General 10/29/21 Mariana Monique MD [address] [place], [place] [id number] Referring Physician Internal Medicine 01/17/20 documented as of this encounter
--- OUTSIDE RECORDS SUMMARY | 2024-05-10 20:20 | XMS_ITS | Encounter Summary ---
Author Organization [facility] Address [address] [place] [address] Phone Care Team Providers Care School Bus Attendant Name Role Phone Mariana Monique MD Unavailable [phone] [facility] Primary Care Provider Encounter Details Date Type Department Care Team (Latest Contact Info) Description 03/21/2023 3:00 PM FOOD AND NUTRITION TEACHER Office Visit [facility] Endocrinology Metabolism and Lipid [address] [facility] Advanced Medicine 5th [place] [address] [place] [address] Peter Styles Jr., MD [address] [place] [address] Type 2 diabetes mellitus without complication, with [...] any clubs o r organizations such as anabaptism groups, unions, fraternal or athletic groups, or [...] on file Legal Sex Male 5:01 AM FOOD AND NUTRITION TEACHER Gender Identity Male 12/18/2017 12:38 PM CDT Sexual Orientation Not on file 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 Not on file Not on file documented as of this encounter Last Filed Vital Signs Vital Sign Reading Time Taken Comments Blood Pressure 141/92 03/21/2023 2:40 PM FOOD AND NUTRITION TEACHER Pulse 88 03/21/2023 2:40 PM FOOD AND NUTRITION TEACHER Temperature 36.7 ??C (98.1 ??F) 03/21/2023 2:40 PM CS T Respiratory Rate - - Oxygen Saturation - - Inhaled Oxygen Concentration - - Weight 188.2 kg (415 lb) 03/21/2023 2:40 PM FOOD AND NUTRITION TEACHER Height 205.7 cm (6' 9 ) 03/21/2023 2:40 PM FOOD AND NUTRITION TEACHER Body Mass Index 44.47 03/21/2023 2:40 PM FOOD AND NUTRITION TEACHER documented in this encounter Patient Instructions * Patient Instructions* Peter Styles MD - 03/21/2023 3:00 PM FOOD AND NUTRITION TEACHER You need more insulin. Please raise U500 to 140 units twice daily. (We will order pens. The dialed is the dose received) Please raise Humalog to 35 units three times daily with meals. The dose dialed is the dose received Please use your phone with [employer]CO Send us a [employer] message Saturday. AND NUTRITION TEACHER AND NUTRITION TEACHER documented in this encounter Ordered Prescriptions Prescription Sig Dispense Quantity Refills Last Filled Start Date End Date blood-glucose sensor (Dexcom G7 Sensor) deviceIndications: Type 2 diabetes mellitus without complication, with long-term current use of insulin ([facility] ([facility]) Use to continually monitor glucose, change every 10 days 9 each 3 03/22/2023 lisinopriL (PRINIVIL,ZESTRIL) 20 mg tabletIndications: Type 2 diabetes mellitus without complication, with long-term current use of insulin ([facility]) ([facility]) Take 1 tablet (20 mg total) by mouth daily 90 tablet 3 03/22/2023 rosuvastatin (CRESTOR) 20 mg tabletIndications: Type 2 diabetes mellitus without complication, with long-term current use of insulin ([facility]) ([facility]) Take 1 tablet (20 mg total) by mouth nightly 30 tablet 11 03/22/2023 pen needle, diabetic (Pen Needle) 31 gauge x 09/18 needleIndications: Type 2 diabetes mellitus without complication, with long-term current use of insulin ([facility]) ([facility]) Use to inject 5-6 times daily as directed 600 each 3 03/21/2023 insulin regular U-500 (HumuLIN R) 500 unit/mL (3 mL) CONCENTRATED pen for injectionIndicatio ns:Type 2 diabetes mellitus without complication, with long-term current use of insulin (CMS/HCC) ([facility]) Inject 200 Units under the skin 2 (two) times a day Please follow doses prescribed by your physician. 72 mL 3 03/21/2023 4 insulin lispro (HumaLOG) 200 unit/mL (3 mL) pen for injectionIndicatio ns:Type 2 diabetes mellitus without complication, with long-term current use of insulin (CMS/HCC) ([facility]) Inject 0.18 mL (36 Units total) under the skin 3 (three) times a day before meals 48.6 mL 3 03/21/2023 3 tirzepatide (MOUNJARO) 2.5 mg/0.5 mL pen injectorIndication s:Type 2 diabetes mellitus without complication, with long-term current use of insulin (CMS/HCC) ([facility]) Inject 0.5 mL (2.5 mg total) [...] alk phos of 142. RTC 2 months. AND NUTRITION TEACHER documented in this encounter Plan of Treatment Not on file documented as of this encounter Procedures Procedure Name Priority Date/Time Associated Diagnosis Comments POCT HEMOGLOBIN A1C Routine 03/21/2023 2 :48 PM FOOD AND NUTRITION TEACHER Type 2 diabetes mellitus without complication, with long-term current use of insulin ([facility]) ([facility]) POCT GLUCOSE 90363 Routine 03/21/2023 2: 47 PM FOOD AND NUTRITION TEACHER Type 2 diabetes mellitus without complication, with long-term current use of insulin ([facility]) ([facility]) documented in this encounter Results * POCT hemoglobin A1c (03/21/2023 2:48 PM FOOD AND NUTRITION TEACHER) Hemoglobin A1C, POC 11.5 % Blood 03/21/2023 2:48 PM FOOD AND NUTRITION TEACHER us Peter Styles Jr., MD POINT OF CARE TEST OR DERABLES Final Result * POCT glucose (03/21/2023 2:47 PM FOOD AND NUTRITION TEACHER) Glucose Blood, POC 205 mg/dL Blood 03/21/2023 2:47 PM FOOD AND NUTRITION TEACHER us Peter Styles Jr., MD POINT OF CARE TEST OR DERABLES Final Result documented in this encounter Visit Diagnoses Diagnosis Type 2 diabetes mellitus without complication, with long-term current use of insulin ([facility]) ([facility])- Primary Insulin resistance Other abnormal glucose Class 3 severe obesity with serious comorbidity and body mass index (BMI) of 45.0 to 49.9 in adult, unspecified obesity type ([facility]) DM (diabetes mellitus), type 2 with complications ([facility]) ([facility]) Type II or unspecified type diabetes [...] complication, with long-term current use of insulin ([facility]) ([facility]) Inject 0.25 mg SQ weekly for [...] complication, with long-term current use of insulin ([facility]) ([facility]) Use to continually monitor glucose, change [...] 3 added in this encounter Care Teams School Bus Attendant Relationship Specialty Start Date End Date Keila Jimenez MD [address] [place] [address] PCP - General 10/29/21 Mariana Monique MD [address] [place] [address] Referring Physician Internal Medicine 01/17/20 documented as of this encounter
--- OUTSIDE RECORDS SUMMARY | 2024-05-10 20:20 | XMS_ITS | Encounter Summary ---
Author Organization [facility] Address [address] [place] [address] Care Team Providers Care Fountain Operator Name Role Phone Unavailable Primary Care Provider Unavailabl e Encounter Details Date Type Department Care Team (Late st Contact Info) Description 02/11/2019 2:50 PM CDT Office Visit [facility] [address] [place] [address] Marci Sanchez MD [address] [place] [address] Social History Tobacco Use Types [...]
--- OUTSIDE RECORDS SUMMARY | 2024-05-10 20:20 | XMS_ITS | Encounter Summary ---
Author Organization [facility] Healthcare Address [address] [place] [address] Care Team Providers Care Denture Waxer Name Role Phone Mariana Monique MD Unavailable [facility] Primary Care Provider Encounter Details Date Type Department Care Team (Late st Contact Info) Description 05/03/2023 Orders Only [facility] Healthcare Occupatiuonal Health [address] [facility] [address] (Third Floor) [place] [address] Charles Avalos MD [address] [place] [address] Screening for tuberculosis (Primary Dx) Social [...] often do you attend chur ch or orthodox services? 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 T-SPOT.TB Negative Kush PAZ Comment: Normal Value: [...] test. T-SPOT.TB Panel A Spot Count 0 [facility] T-SPOT.TB Panel B Spot Count 0 [facility] T-SPOT.TB Negative Control Passed [facility] T-SPOT.TB Positive Control Passed [facility] Comment: Test Performed at: [employer] [place], [place] ??[phone] ? GIBSON FIELDS MD,PHD Blood 05/03/2023 11:5 3 AM INVESTIGATOR CASH SHORTAGE 05/03/2023 12:12 PM INVESTIGATOR CASH SHORTAGE Charles Avalos MD LAB MICROBIOLOGY - GENERAL OR DERABLES Final Result [facility] Department of Laboratories [place], [place] [id number] documented in this encounter Visit Diagnoses Diagnosis Screening for tuberculosis- Primary Screening examination for pulmonary tuberculosis documented in this encounter Care Teams Denture Waxer Relationship Specialty Start Date End Date Keila Jimenez MD [address] [place] [address] PCP - General 10/29/21 Mariana Monique MD [address] [place] [address] Referring Physician Internal Medicine 01/17/20 documented as of this encounter
--- OUTSIDE RECORDS SUMMARY | 2024-05-10 20:20 | XMS_ITS | Encounter Summary ---
Author Organization [facility] Address [address] [place] [address] Phone Care Team Providers Care Legislative Director Name Role Phone Mariana Monique MD Unavailable [phone] [facility] Primary Care Provider Reason for Visit * Reason Onset Date Comments Prior auths 03/25/2023 Encounter Details Date Type Department Care Team (Late st Contact Info) Description 03/25/2023 Telephone [facility] Endocrinology Metabolism and Lipid [address] [place] [address] [place] [address] Denia Albert RN Prior auths [...] often do you attend chur ch or anglican services? 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 Not on file Not on file documented as of this encounter Ordered Prescriptions Prescription Sig Dispense Quantity Refills Last Filled Start Date End Date insulin aspart (NovoLOG) 100 unit/mL (3 mL) pen for injectionIndicatio ns:Type 2 diabetes mellitus without complication, with long-term current use of insulin ([facility] ([facility]) Inject 36 Units SQ under the skin 3 (three) times a day before meals 105 mL 1 03/25/2023 11/12/2023 documented in this encounter Miscellaneous Notes * Telephone Encounter - Denia Albert RN - 03/26/2023 9:30 AM CULINARY SPECIALIST Advebs message sent to the patient on the Mounjaro and Dexcom PA approval NARY SPECIALIST * Telephone Encounter - Jenifer Tamez - 03/25/2023 2:38 PM CST Please see previous encounter, these have already been approved NARY SPECIALIST * Telephone Encounter - Denia Albert RN - 03/25/2023 2:12 PM CULINARY SPECIALIST Images from the original note were not included. Multiple PA's #1 Dexcom G7 #2 Mounjaro #3 Changed Humalog insulin to Novolog due to Humalog not being covered under the patient's insurance formulary (done) NARY SPECIALIST NARY SPECIALIST documented in this encounter Plan of Treatment Not on file documented as of this encounter Visit Diagnoses Diagnosis Type 2 diabetes mellitus without complication, with long-term current use of insulin ([facility]) ([facility])- Primary documented in this encounter Discontinued Medications Medication Sig Discontinue Reason Start Date End Da te insulin lispro (HumaLOG) 200 unit/mL (3 mL) pen for injectionIndications:Typ e 2 diabetes mellitus without complication, with long-term current use of insulin ([facility]) ([facility]) Inject 0.18 mL (36 Units total) under the skin 3 (three) times a day before meals Formulary change 03/21/2023 03/25/2023 documented as of this encounter Care Teams Legislative Director Relationship Specialty Start Date End Date Keila Jimenez MD [address] [place] [address] PCP - General 10/29/21 Mariana Monique MD [address] [place] [address] Referring Physician Internal Medicine 01/17/20 documented as of this encounter
--- OUTSIDE RECORDS SUMMARY | 2024-05-10 20:20 | XMS_ITS | Clinical Summary ---
Author Organization [facility] Address [address] [place] [address] Phone Care Team Providers Care Java Web Engineer Name Role Phone Unavailable Primary Care [...]
--- OUTSIDE RECORDS SUMMARY | 2024-05-10 20:20 | XMS_ITS | Encounter Summary ---
Author Organization [facility] Address [address] [place] [address] Phone Care Team Providers Care Cath Lab Name Role Phone Mariana Monique MD Unavailable [phone] [facility] Primary Care Provider Reason for Visit * Reason Onset Date Comments Prior Auth 03/10/2024 Encounter Details Date Type Department Care Team (Late st Contact Info) Description 03/10/2024 Telephone [facility] Scheduling [address] [place] [address] Peter Styles Jr., MD [address] [place] [address] Prior Auth Social History Tobacco Use Types [...] often do you attend chur ch or hoahaoism services? 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 ATION COORDINATOR documented in this encounter Plan of Treatment Not on file documented as of this encounter Visit Diagnoses Not on filedocumented in this encounter Care Teams Cath Lab Relationship Specialty Start Date End Date Keila Jimenez MD [address] [place] [address] PCP - General 10/29/21 Mariana Monique MD [address] [place] [address] Referring Physician Internal Medicine 01/17/20 documented as of this encounter
--- OUTSIDE RECORDS SUMMARY | 2024-05-10 20:20 | XMS_ITS | Encounter Summary ---
Author Organization [facility] Healthcare Address [address] [place] [address] Care Team Providers Care Hunting And Fishing Guide Name Role Phone Mariana Monique MD Unavailable [phone] [facility] Care Provider Encounter Details Date Type Department Care Team (Late st Contact Info) Description 05/03/2023 11:45 AM 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 T-SPOT.TB Panel A Spot Count 0 [facility] T-SPOT.TB Panel B Spot Count 0 [facility] T-SPOT.TB Negative Control Passed [facility] T-SPOT.TB Positive Control Passed [facility] Comment: Test Performed at: [facility] [place], [place] ??[address] ? GIBSON FIELDS MD,PHD Blood 05/03/2023 11:5 3 AM [facility] 05/03/2023 12:12 PM [facility] us Charles Avalos MD LAB MICROBIOLOGY - GENERAL OR DERABLES Final Result [facility] [place] [address] documented in this encounter Visit Diagnoses Diagnosis Screening for tuberculosis Screening examination for pulmonary tuberculosis documented in this encounter Care Teams Hunting And Fishing Guide Relationship Specialty Start Date End Date Keila Jimenez MD [address] [place] [address] PCP - General 10/29/21 Mariana Monique MD [address] [place] [address] Referring Physician Internal Medicine 01/17/20 documented as of this encounter
--- OUTSIDE RECORDS SUMMARY | 2024-05-10 20:20 | XMS_ITS | Encounter Summary ---
Author Organization [facility] Address [address] [place] [address] Phone Care Team Providers Care Coffee Maker Servicer Name Role Phone Mariana Monique MD Unavailable [phone] [facility] Primary Care Provider Reason for Visit * Reason Onset Date Comments appointment and medication 03/10/2024 Encounter Details Date Type Department Care Team (Late st Contact Info) Description 03/10/2024 Telephone [facility] Endocrinology Metabolism and Lipid [address] [facility] [address] [place] [address] Denia Albert RN appointment and [...] often do you attend chur ch or christian services? 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 Not on file Not on file documented as of this encounter Miscellaneous Notes * Telephone Encounter - Denia Albert RN - 03/10/2024 5:35 PM DIGITAL RESEARCH ANALYST PLAYD8 message sent to the patient to schedule a return appointment before medications are refilled or PA is being processed since it has been a year since his last visit [facility] contacted and told that the PA will not be processed until the patient is seen He has no showed 01/09/2024 09/26/2023 06/06/2023 03/14/2023 Cancelled 11/21/2023 TAL RESEARCH ANALYST documented in this encounter Plan of Treatment Not on file documented as of this encounter Visit Diagnoses Not on filedocumented in this encounter Care Teams Coffee Maker Servicer Relationship Specialty Start Date End Date Keila Jimenez MD [address] [place] [address] PCP - General 10/29/21 Mariana Monique MD [address] [place] [address] Referring Physician Internal Medicine 01/17/20 documented as of this encounter
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
--- OUTSIDE RECORDS SUMMARY | 2024-05-10 20:21 | XMS_ITS | Encounter Summary ---
Author Organization [facility] Address [address] [place] [address] Phone Care Team Providers Care Oracle Specialist Name Role Phone Jann Burrows MD Primary Care Provider [phone] Mariana Monique MD Unavailable Reason for Referral * Cardiology (Routine) - Closed Specialty Diagnoses / Procedures Referred By Contac t Referred To Contact Diagnoses Asymmetric septal hypertrophy Benign essential hypertension Procedures Transthoracic Echo Complete W Doppler/CF Tania Beth MD Phone: tel: fax: [address] [address] Referral ID Status Reason Start Date Expiration Date Visits Re quested Visits Authorized [id number] Closed 05/25/2020 06/24/2021 1 1 DING SURVEYOR Encounter Details Date Type Department Care Team (Late st Contact Info) Description 05/25/2020 1:00 PM BUILDING SURVEYOR Office Visit [facility] Cardiology [facility] Advanced Medicine 8th [place] [address] [place] [address] Tania Beth MD [address] 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 Not on file Not on file documented as of this encounter Last Filed Vital Signs Vital Sign Reading Time Taken Comments Blood Pressure 125/78 05/25/2020 12:47 PM BUILDING SURVEYOR Pulse 80 05/25/2020 12:47 PM BUILDING SURVEYOR Temperature 36.7 ??C (98.1 ??F) 05/25/2020 1 2:47 PM BUILDING SURVEYOR Respiratory Rate - - Oxygen Saturation 98% 05/25/2020 12: 47 PM BUILDING SURVEYOR Inhaled Oxygen Concentration - - Weight 174.9 kg (385 lb 9.6 oz) 021 12:47 PM BUILDING SURVEYOR Height - - Body Mass Index 43.44 01/14/2020 9:50 PM CDT documented in this encounter Patient Instructions * Patient Instructions* Tania Beth MD - 05/25/2020 1:00 PM BUILDING SURVEYOR Echocardiogram. Lipid panel next week. Congratulations on your weight loss! Keep up the good work! DING SURVEYOR documented in this encounter Progress Notes * Tania Beth MD - 05/25/2020 1:00 PM CST Images from the original note were not included. Department of Medicine Tania Beth MD, MPHS, [facility] Cardiovascular Division Dancer Or Choreographerspun paste machine operator Patient Name: Geraldo Velez : 1995 Date [...] Hgb A1c 8.4. - Hospital admission to [facility] 01/2020 presented with SOB and cough, found [...] days/week. 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 Outpatient Encounter Medications as of 05/25/2020 Medication [...] septum measuring 17 mm, primarily of the iffsizyq-ve-wzl interventricular septum. There was no systolic anterior [...] or concerns. Respectfully, Tania Beth MD, MPHS, [facility] Dancer Or Choreographerspun paste machine operator Cardiovascular Division [facility] --- Please note: This note was generated in part using voice-recognition software and may contain radiology transcriptionist errors. DING SURVEYOR documented in this encounter Plan of Treatment Not on file documented as of this encounter Results * TRANSTHORACIC ECHO (TTE) COMPLETE W DOPPLER/CF W CONTRAST (06/02/2020 10:27 AM BUILDING SURVEYOR) Anatomical Region Laterality Modality Ultrasound 06/02/2020 9:30 AM BUILDING SURVEYOR Narrative 06/03/2020 10:15 PM BUILDING SURVEYOR Patient name: Geraldo Velez Date of test: 06/02/2020 Type of test: TTE w/Doppler [facility] #: [id number] Date of : 1995 (M) Cleat Maker: Angélica Heath(Ragini), [facility] Referring Physician: TANIA BETH MD Contrast Agent: 0.4 ml Optison Administered, (2.6 ml wasted). Contrast Administered by: Yahaira Hatch RN Supervised/Interpreted by: Noreen Jha MD Diagnosis: Location: [facility] Reason for test: Asymetrical Septal hypertrophy, HTN [...] 2=Hypo 3=Akinetic 4=Dyskin./Aneurysm 0=Not visualized) Parasternal Long [place]:MAS=1 BAS=1 MIL=1 ANABELLE=1 Parasternal Short [place]:MAS=1 MIS=1 IN=1 MIL=1 MAL=1 MA=1 Apical 4 Chambers:=1 MIS=1 BIS=1 BAL=1 MAL=1 AL=1 AC=1 Apical 2 Chambers:AI=1 IN=1 BI=1 BA=1 MA=1 AA=1 AC=1 LV Global Longitudinal Strain: -13.2% ??(Normal <-17%) RV Global Longitudinal Strain: LV Function: Normal LV Ejection Fraction, (EF=52-72%) RV Function: mild global hypokinesis Septal Motion: normal Pericardial Effusion: none seen Atrial Septum: Normal on 2D DOPPLER/COLOR FLOW DOPPLER RESULTS: Diastolic Function: normal Tricuspid Valve: No TR Pulmonic Valve: No RI AV Regurgitation: No AR seen AV Stenosis: [...] no , no MS, No TR, No RI. Diastolic function: normal CONTRAST: 0.4 ml Optison [...] MD By signing this report, the attending chassis engineer certifies that he or she has personally supervised and interpreted the echocardiogram and has reviewed and or edited and agrees with the written comments contained within the report. Procedure Note Noreen Jha MD - 06/03/2020 Patient name: Geraldo Velez Date of test: 06/02/2020 Type of test: E /[facility] #: [id number] Date of : 1995 (M) Cleat Maker: Angélica Baez), [facility] Referring Physician: TANIA BETH MD Contrast Agent: 0.4 ml Optison Administered, (2.6 ml wasted). Contrast Administered by: Yahaira Hatch RN Supervised/Interpreted by: Noreen Jha MD Diagnosis: Location: [facility] [place] Reason for test: Asymetrical Septal hypertrophy, HTN [...] 2=Hypo 3=Akinetic 4=Dyskin./Aneurysm 0=Not visualized) Parasternal Long [place]:MAS=1 BAS=1 MIL=1 ANABELLE=1 Parasternal Short [place]:MAS=1 MIS=1 IN=1 MIL=1 MAL=1 MA=1 Apical 4 Chambers:=1 MIS=1 BIS=1 BAL=1 MAL=1 AL=1 AC=1 Apical 2 Chambers:AI=1 IN=1 BI=1 BA=1 MA=1 AA=1 AC=1 LV Global Longitudinal Strain: -13.2% (Normal <-17%) RV Global Longitudinal Strain: LV Function: Normal LV Ejection Fraction, (EF=52-72%) RV Function: mild global hypokinesis Septal Motion: normal Pericardial Effusion: none seen Atrial Septum: Normal on 2D DOPPLER/COLOR FLOW DOPPLER RESULTS: Diastolic Function: normal Tricuspid Valve: No TR Pulmonic Valve: No RI AV Regurgitation: No AR seen AV Stenosis: [...] no , no MS, No TR, No RI. Diastolic function: normal CONTRAST: 0.4 ml Optison [...] MD By signing this report, the attending chassis engineer certifies that he or she has personally [...] documented as of this encounter Care Teams Oracle Specialist Relationship Specialty Start Date End Date Jann Burrows MD [address] [place] [address] PCP - General Hematology 03/13/19 10/28/21 Mariana Monique MD [address] [place] [address] Referring Physician Internal Medicine 01/17/20 documented as of this encounter
--- OUTSIDE RECORDS SUMMARY | 2024-05-10 20:21 | XMS_ITS | Encounter Summary ---
Author Organization [facility] Address [address] [place] [address] Care Team Providers Care Instructional Design Manager Name Role Phone Jann Burrows MD Primary Care Provider [phone] Reason for Visit * Reason Onset Date Comments medication reconciliation for 12/24 Post Hospital Visit 12/24/2019 Encounter Details Date Type Department Care Team (Late st Contact Info) Description 12/24/2019 Telephone [facility] Primary Care Medicine Clinic [address] [facility] [address] [place], [place] [id number] Samara Silva, [facility] medication reconciliation for 12/24 Post Hospital Visit Social History Tobacco Use Types Packs/Day Years Used Date Smoking Tobacco: Never Smokeless Tobacco: Current Alcohol Use Standard Drinks/Week Comments Yes 24 (1 standard drink = 0.6 oz pu re alcohol) CAGE negative. Case per week. 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 Date of discharge: 8/17 Date of PHV: 8/21, with Dr. Rhoades Patient did not answer. Left voicemail for patient at [phone] with information about upcoming appointment and to return call to [facility] pharmacists at [phone] to discuss medications. Timestamp: 12/24/19, 10:46 AM Samara Guidry, PharmD, MHA, BCPS Clinical Tube Washer, Dry Pan Feeder [facility]/Primary Care Medicine Clinic documented in this encounter Plan of Treatment Not on file documented as of this encounter Visit Diagnoses Not on filedocumented in this encounter Care Teams Instructional Design Manager Relationship Specialty Start Date End Date Jann Burrows MD [address] [facility] [address] [place] [address] PCP - General Hematology 03/13/19 10/28/21 documented as of this encounter
--- OUTSIDE RECORDS SUMMARY | 2024-05-10 20:21 | XMS_ITS | Encounter Summary ---
Author Organization [facility] Address [address] [place] [address] Phone Care Team Providers Care Pipe Layer Name Role Phone Jann Burrows MD Primary Care Provider [phone] Mariana Monique MD Unavailable [phone] Encounter Details Date Type Department Care Team (Late st Contact Info) Description 06/13/2021 Orders Only [facility] Endocrinology Metabolism and Lipid [address] [facility] Advanced Medicine 5th [place] [address] [place] [address] Peter Styles Jr., MD [address] [place] [address] Class 3 severe obesity due to excess [...] on file Legal Sex Male 5:01 AM SECONDS HANDLER Gender Identity Male 12/18/2017 12:38 PM CDT Sexual Orientation Not on file 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 NDS HANDLER documented in this encounter Plan of Treatment Not on file documented as of this encounter Visit Diagnoses Diagnosis Class 3 severe obesity due to excess calories with serious comorbidity and body mass index (BMI) of 40.0 to 44.9 in adult ([facility])- Primary documented in this encounter Care Teams Pipe Layer Relationship Specialty Start Date End Date Jann Burrows MD [address] [place] [address] PCP - General Hematology 03/13/19 10/28/21 Mariana Monique MD [address] [place] [address] Referring Physician Internal Medicine 01/17/20 documented as of this encounter
--- OUTSIDE RECORDS SUMMARY | 2024-05-10 20:21 | XMS_ITS | Encounter Summary ---
Author Organization [facility] Healthcare Address [address] [place] [address] Care Team Providers Care Wind Turbine Mechanical Engineer Name Role Phone Jann Burrows MD Primary Care Provider [phone] Mariana Monique MD Unavailable [phone] Encounter Details Date Type Department Care Team (Late st Contact Info) Description 08/24/2021 11:20 AM CDT [address] [address] Sheldon Garcia MD [address] [id number] Discharge Disposition: Discharge to home or self care Social History Tobacco Use Types Packs/Day Years Used Date Smoking Tobacco: Never Smokeless Tobacco: Former Chew Quit: 01/13/2019 Alcohol Use Standard Drinks/Week Comments Not Currently 0 (1 standard drink = 0.6 oz pur e alcohol) Sex and Gender Information Value Date Recorded Sex Assigned at Not on file Legal Sex Male 5:01 AM R D INTERN Gender Identity Male 12/18/2017 12:38 PM CDT Sexual Orientation Not on file 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 Ph.D.; CLIA# [id number] Blood 08/24/2021 11:2 3 AM CDT 08/24/2021 1:14 PM CDT us Sheldon Garcia MD LAB BLOOD ORDERABLES Final Result [facility] ([facility]ESSICA) [facility] Department of Laboratories [place], [place] [id number] documented in this encounter Visit Diagnoses Not on filedocumented in this encounter Care Teams Wind Turbine Mechanical Engineer Relationship Specialty Start Date End Date Jann Burrows MD [address] [facility] [address] [place] [address] PCP - General Hematology 03/13/19 10/28/21 Mariana Monique MD [address] [place] [address] Referring Physician Internal Medicine 01/17/20 documented as of this encounter
--- OUTSIDE RECORDS SUMMARY | 2024-05-10 20:21 | XMS_ITS | Encounter Summary ---
Author Organization [facility] Healthcare Address [address] [place] [address] Care Team Providers Care Near East Archeology Professor Name Role Phone Jann Burrows MD Primary Care Provider [phone] Mariana Monique MD Unavailable Encounter Details Date Type Department Care Team (Late st Contact Info) Description 06/02/2020 5:30 PM DIRECTOR [facility] COMM[facility]ION Lab [facility] [address] [place] [id number] Peter Styles Jr., MD [address] [facility] [address] [place] [address] Type 2 diabetes mellitus without complication, with long-term current use of insulin (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) CHOLESTEROL, LDL, DIRECT Routine 06/02/2020 5:27 PM DIRECTOR [employer] Type 2 diabetes mellitus without complication, with long-term current use of insulin ([facility]) LIPID PANEL Routine 06/02/2020 5:27 PM DIRECTOR [employer] Type 2 diabetes mellitus without complication, with long-term current use of insulin ([facility]) documented in this encounter Results * Cholesterol, LDL, direct (06/02/2020 5:27 PM DIRECTOR [employer]) LDL Cholesterol, Direct 41 <=129 mg/dL [facility] [...] 2017. Blood specimen (specimen) 06/02/2020 5:27 PM [employer] 06/02/2020 5:50 PM [employer] Narrative [facility] - 06/02/2020 7:04 PM DIRECTOR [employer] Cholesterol, LDL, direct reflexed based on Elevated Triglyceride (>400) us Peter Styles Jr., MD LAB BLOOD ORDERABLES Final Result [facility] Department [place] [address] * (ABNORMAL) Lipid panel (06/02/2020 5:27 PM DIRECTOR [employer] COMM[employer]) [facility] Cholesterol 250(H) 30 - 199 mg/dL [facility] Comment: Interpretive Data Ages < or [...] on 2017. Triglycerides 1,672(H) <=149 mg/dL [facility] Comment: Hemolyzed; result may be falsely [...] 2017. LDL, calculated See Comment <=129 [facility] Comment: Unable to calculate LDL due [...] last revised on 2017. Chol/HDL ratio 13 [facility] Blood specimen (specimen) 06/02/2020 5:27 PM DIRECTOR [employer] 06/02/2020 5:50 PM [employer] Narrative [facility] - 06/02/2020 6:38 PM DIRECTOR [employer]ION These lab test should be done fasting. This means do not eat or drink for at least 12 hours prior to getting your blood drawn. Has the patient been fasting for 8 hours or more?->No non fasting us Peter Styles Jr., MD LAB BLOOD ORDERABLES Final Result Performing Organization Address [facility] de Phone Number [facility] Department [place] [address] * Albumin Creatinine Ratio, Urine (06/02/2020 5:27 PM DIRECTOR [employer]) Albumin Ur 51.3 mg/L [facility] Comment: Interpretive Data No reference range established. Current interpretive data was last revised 2018. Creatinine Ur 287.1 mg/dL [facility] Comment: Interpretive Data No reference range established. Current interpretive data was last revised 2018. Albumin Creatinine Ratio, Ur 18 1 - 29 mg/g [facility] Urine 06/02/2020 5:27 PM [employer] [employer] 06/02/2020 5:51 PM [employer] us Peter Styles Jr., MD LAB URINE ORDERABLES Final Result Performing Organization Address [facility] Co de Phone Number [facility] Department [place] [address] documented in this encounter Visit Diagnoses Diagnosis Type 2 diabetes mellitus without complication, with long-term current use of insulin (CMS/HCC) (HCC) documented in this encounter Care Teams Near East Archeology Professor Relationship Specialty Start Date End Date Jann Burrows MD [address] [place] [address] PCP - General Hematology 03/13/19 10/28/21 Mariana Monique MD [address] [place] [address] Referring Physician Internal Medicine 01/17/20 documented as of this encounter
--- OUTSIDE RECORDS SUMMARY | 2024-05-10 20:21 | XMS_ITS | Encounter Summary ---
Author Organization [facility] Address [address] [place] [address] Phone Care Team Providers Care Stock Unloader Name Role Phone Jann Burrows MD Primary Care Provider [phone] Mariana Monique MD Unavailable [phone] Reason for Visit * Cardiology (Routine) - Closed Specialty Diagnoses / Procedures Referred By Christen springer Referred To Contact Diagnoses Asymmetric septal hypertrophy Benign essential hypertension Procedures Transthoracic Echo Complete W Doppler/CF Tania Beth MD Phone: tel: fax: [address] [address] Referral ID Status Reason Start Date Expiration Date Visits Re quested Visits Authorized [id number] Closed 05/25/2020 06/24/2021 1 1 Encounter Details Date Type Department Care Team (Latest Contact Info) Description 06/02/2020 9:30 AM FURNITURE LUMBER PRODUCTION WORKER Ancillary Procedure [facility] [address] [place] [address] Tania Beth MD [address] [address] Asymmetric septal hypertrophy (CMS/HCC); Benign [...] on file Legal Sex Male 5:01 AM FURNITURE LUMBER PRODUCTION WORKER Gender Identity Male 12/18/2017 12:38 PM CDT Sexual Orientation Not on file 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 Not on file Not on file documented as of this encounter Discharge Disposition Disposition Code Departure Means Destination Discharge to home or self care documented in this encounter Plan of Treatment Not on file documented as of this encounter Procedures Procedure Name Priority Date/Time Associated Diagnosis Comments TRANSTHORACIC ECHO (TTE) COMPLETE W DOPPLER/CF W CONTRAST Routine 06/02/2020 10:27 AM FURNITURE LUMBER PRODUCTION WORKER Asymmetric septal hypertrophy (CMS/HCC) Benign essential hypertension documented in this encounter Results * TRANSTHORACIC ECHO (TTE) COMPLETE W DOPPLER/CF W CONTRAST (06/02/2020 10:27 AM FURNITURE LUMBER PRODUCTION WORKER) Anatomical Region Laterality Modality Ultrasound 06/02/2020 9:30 AM FURNITURE LUMBER PRODUCTION WORKER Narrative 06/03/2020 10:15 PM FURNITURE LUMBER PRODUCTION WORKER Patient name: Geraldo Velez Date of test: 06/02/2020 Type of test: TTE w/Doppler [facility] #: [id number] Date of : 1995 (M) Carriage Rider: Angélica Baez), [facility] Referring Physician: TANIA BETH MD Contrast Agent: 0.4 ml Optison Administered, (2.6 ml wasted). Contrast Administered by: Yahaira Hatch RN Supervised/Interpreted by: Noreen Jha MD Diagnosis: Location: [facility] Reason for test: Asymetrical Septal hypertrophy, HTN [...] 2=Hypo 3=Akinetic 4=Dyskin./Aneurysm 0=Not visualized) Parasternal Long Wright:MAS=1 BAS=1 MIL=1 ANABELLE=1 Parasternal Short Wright:MAS=1 MIS=1 LA=1 MIL=1 MAL=1 MA=1 Apical 4 Chambers:=1 MIS=1 BIS=1 BAL=1 MAL=1 AL=1 AC=1 Apical 2 Chambers:AI=1 LA=1 BI=1 BA=1 MA=1 AA=1 AC=1 LV Global Longitudinal Strain: -13.2% ??(Normal <-17%) RV Global Longitudinal Strain: LV Function: Normal LV Ejection Fraction, (EF=52-72%) RV Function: mild global hypokinesis Septal Motion: normal Pericardial Effusion: none seen Atrial Septum: Normal on 2D DOPPLER/COLOR FLOW DOPPLER RESULTS: Diastolic Function: normal Tricuspid Valve: No TR Pulmonic Valve: No MO AV Regurgitation: No AR seen AV Stenosis: [...] no , no MS, No TR, No MO. Diastolic function: normal CONTRAST: 0.4 ml Optison [...] MD By signing this report, the attending mounter clarinets certifies that he or she has personally supervised and interpreted the echocardiogram and has reviewed and or edited and agrees with the written comments contained within the report. Procedure Note Noreen Jha MD - 06/03/2020 Patient name: Geraldo Velez Date of test: 06/02/2020 Type of test: TTE w/[facility] #: [id number] Date of : 1995 (M) Carriage Rider: Angélica Beaz), [facility] Referring Physician: TANIA BETH MD Contrast Agent: 0.4 ml Optison Administered, (2.6 ml wasted). Contrast Administered by: Yahaira Hatch RN Supervised/Interpreted by: Noreen Jha MD Diagnosis: Location: [facility] Reason for test: Asymetrical Septal hypertrophy, HTN [...] 2=Hypo 3=Akinetic 4=Dyskin./Aneurysm 0=Not visualized) Parasternal Long Wright:MAS=1 BAS=1 MIL=1 ANABELLE=1 Parasternal Short Wright:MAS=1 MIS=1 LA=1 MIL=1 MAL=1 MA=1 Apical 4 Chambers:=1 MIS=1 BIS=1 BAL=1 MAL=1 AL=1 AC=1 Apical 2 Chambers:AI=1 LA=1 BI=1 BA=1 MA=1 AA=1 AC=1 LV Global Longitudinal Strain: -13.2% (Normal <-17%) RV Global Longitudinal Strain: LV Function: Normal LV Ejection Fraction, (EF=52-72%) RV Function: mild global hypokinesis Septal Motion: normal Pericardial Effusion: none seen Atrial Septum: Normal on 2D DOPPLER/COLOR FLOW DOPPLER RESULTS: Diastolic Function: normal Tricuspid Valve: No TR Pulmonic Valve: No MO AV Regurgitation: No AR seen AV Stenosis: [...] no , no MS, No TR, No MO. Diastolic function: normal CONTRAST: 0.4 ml Optison [...] MD By signing this report, the attending mounter clarinets certifies that he or she has personally [...] dose, Intra-Procedure (CV) Given 06/02/2020 10:21 AM FURNITURE LUMBER PRODUCTION WORKER 1 mL documented in this encounter Orders Medications Ordered That Néstor ht Not Have Been Administered Count Last Ordered Date First Ordered Date perflutren protein-a (OPTISO N) 3 mL in sodium chloride 0.9% 8 mL syringe 1 06/02/2020 documented in this encounter Care Teams Stock Unloader Relationship Specialty Start Date End Date Jann Burrows MD [address] [place] [address] PCP - General Hematology 03/13/19 10/28/21 Mariana Monique MD [address] [place] [address] Referring Physician Internal Medicine 01/17/20 documented as of this encounter
--- OUTSIDE RECORDS SUMMARY | 2024-05-10 20:21 | XMS_ITS | Encounter Summary ---
Author Organization [facility] Healthcare Address [address] [place] [address] Care Team Providers Care Sealer Sander Name Role Phone Jann Burrows MD Primary Care Provider [phone] Encounter Details Date Type Department Care Team (Late st Contact Info) Description 12/31/2019 6:10 PM CDT Lab [facility] Advanced [facility] ([facility]) [address] [place] [phone] Type 2 diabetes mellitus with ketoacidosis without [...] on file Legal Sex Male 5:01 AM LEAN MANUFACTURING LEADER Gender Identity Male 12/18/2017 12:38 PM CDT Sexual Orientation Not on file 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 Not on file [...] coma, without long-term current use of insulin ([facility]) C-PEPTIDE Routine 12/31/2019 5:55 PM CDT Type 2 diabetes mellitus with ketoacidosis without coma, without long-term current use of insulin ([facility]) TSH Routine 12/31/2019 5:55 PM CDT Type 2 diabetes mellitus with ketoacidosis without coma, without long-term current use of insulin ([facility]/HCC) HEMOGLOBIN A1C Routine 12/31/2019 5:55 PM CDT Type 2 diabetes mellitus with ketoacidosis without coma, without long-term current use of insulin ([facility]) COMPREHENSIVE METABOLIC PANEL Routine 12/31/2019 5:55 PM CDT Type 2 diabetes mellitus with ketoacidosis without coma, without long-term current use of insulin ([facility]/HCC) documented in this encounter Results * Differential, auto (12/31/2019 5:55 PM CDT) Neutrophil abs 2.9 1.7 - 6.5 K/cumm [facility] Imm gran abs 0.0 0.0 - 0.1 K/cumm [facility] Lymphocyte abs 2.1 0.8 - 3.3 K/cumm [facility] Monocyte abs 0.5 0.2 - 0.8 K/cumm [facility] Eosinophil abs 0.2 0.0 - 0.5 K/cumm [facility] Basophil abs 0.0 0.0 - 0.1 K/cumm [facility] Neutrophil pct 49.7 % [facility] Comment: Interpretive Data Percent cell count reference ranges are not reported, since discordance with absolute values may lead to misinterpretation of CBC data. Current Interpretive Data was last revised on 2017. Imm gran pct 0.3 % [facility] Comment: Interpretive Data Percent cell count reference ranges are not reported, since discordance with absolute values may lead to misinterpretation of CBC data. Current Interpretive Data was last revised on 2017. Lymphocyte pct 36.8 % [facility] Comment: Interpretive Data Percent cell count reference ranges are not reported, since discordance with absolute values may lead to misinterpretation of CBC data. Current Interpretive Data was last revised on 2017. Monocyte pct 9.1 % [facility] Comment: Interpretive Data Percent cell count reference ranges are not reported, since discordance with absolute values may lead to misinterpretation of CBC data. Current Interpretive Data was last revised on 2017. Eosinophil pct 3.4 % [facility] Comment: Interpretive Data Percent cell count reference ranges are not reported, since discordance with absolute values may lead to misinterpretation of CBC data. Current Interpretive Data was last revised on 2017. Basophil pct 0.7 % [facility] Comment: Interpretive Data Percent cell count reference ranges are not reported, since discordance with absolute values may lead to misinterpretation of CBC data. Current Interpretive Data was last revised on 2017. Blood specimen (specimen) 12/31/2019 5:55 PM CDT 12/31/2019 6:15 PM CDT us Peter Styles Jr., MD LAB BLOOD ORDERABLES Final Result [facility] Department [place] [address] * Insulin antibody (12/31/2019 5:55 PM CDT) Insulin ab 0.00 0.00 - 0.02 nmol/L [facility] Comment: ADDITIONAL INFORMATION This test was developed and its performance characteristics determined by [facility] in a manner consistent with CLIA requirements. This test has not been cleared or approved by the U.S. Food and Drug Administration. Test Performed by: [facility] Laboratories [address] [address] Chute Loader: Josiah Turk M.D. Ph.D.; CLIA# [id number] Blood specimen (specimen) 12/31/2019 5:55 PM CDT 12/31/2019 6:31 PM CDT us Peter Styles Jr., MD LAB BLOOD ORDERABLES Final Result Performing Organization Address [facility] Co de Phone Number [facility] [place] [employer] [place] [address] * Beta-hydroxybutyrate (12/31/2019 5:55 PM CDT) [facility] Beta-Hydroxybut yrate 0.1 0.0 - 0.5 mmol/L [facility] Blood specimen (specimen) 12/31/2019 5:55 PM CDT 12/31/2019 6:15 PM CDT us Peter Styles Jr., MD LAB BLOOD ORDERABLES Edited Result - Final Performing Organization Address [facility] Co de Phone Number [facility] [place] [place] [address] * (ABNORMAL) CBC with auto differential (12/31/2019 5:55 PM CDT) Pathologist [facility] WBC 5.8 3.8 - 9.9 K/cumm [facility] Hgb 15.6 13.0 - 17.5 g/dL [facility] Hct 43.1 38.9 - 50.3 % [facility] Plt 327 150 - 400 K/cumm [facility] MPV 9.9 9.1 - 12.3 fL [facility] RBC 5.21 4.30 - 5.80 M/cumm [facility] MCV 82.7 81.3 - 96.4 fL [facility] MCH 29.9 27.1 - 33.3 pg [facility] MCHC 36.2(H) 32.3 - 35.7 g/dL [facility] RDW CV 12.3 11.1 - 14.9 % [facility] RDW SD 36.9 35.7 - 48.1 fL [facility] NRBC abs 0.00 0.00 - 0.01 K/cumm [facility] Blood specimen (specimen) 12/31/2019 5:55 PM CDT 12/31/2019 6:15 PM CDT us Peter Styles Jr., MD LAB BLOOD ORDERABLES Final Result Performing Organization Address [facility] de Phone Number [facility] [place] [employer] [place] [address] * (ABNORMAL) Hemoglobin A1c (12/31/2019 5:55 PM CDT) Hgb A1C 8.7(H) 4.0 - 5.6 % [facility] Estimated Average Glucose 203 mg/dL [facility] Comment: The ADA recommends reporting an estimated Average Glucose (eAG) with all Hemoglobin A1c results using the equation derived from a study of 507 normal and diabetic adults. ??Minority populations were underrepresented and children were not included. ?? (Diabetes Care 31:0256-0117, 2008). ??The eAG is not equivalent to a fasting glucose. Blood specimen (specimen) 12/31/2019 5:55 PM CDT 12/31/2019 6:15 PM CDT us Peter Styles Jr., MD LAB BLOOD ORDERABLES Final Result Performing Organization Address [facility] de Phone Number [facility] [place] [address] * TSH (12/31/2019 5:55 PM CDT) Thyroid Stimulating Hormone 1.54 0.30 - 4.20 mcIUnit/mL [facility] Blood specimen (specimen) 12/31/2019 5:55 PM CDT 12/31/2019 6:15 PM CDT Peter Styles Jr., MD LAB BLOOD ORDERABLES Final Result [facility] Department [place] [address] * (ABNORMAL) Comprehensive metabolic panel (12/31/2019 5:55 PM CDT) Sodium 134(L) 135 - 145 mmol/L [facility] Potassium, pl 4.2 3.3 - 4.9 mmol/L [facility] Chloride 97 97 - 110 mmol/L [facility] CO2 23 22 - 32 mmol/L [facility] Anion gap 14 2 - 15 mmol/L [facility] BUN 17 8 - 25 mg/dL [facility] Creatinine 0.81 0.80 - 1.30 mg/dL [facility] Glucose 281(H) 70 - 199 mg/dL [facility] Comment: Interpretive Data Fasting glucose >/= [...] 2017. Calcium 10.0 8.5 - 10.3 mg/dL [facility] Bilirubin, total 0.4 0.1 - 1.2 mg/dL [facility] Protein, pl 7.8 6.5 - 8.5 g/dL [facility] Albumin 4.5 3.5 - 5.0 g/dL [facility] Alk phos 98 40 - 130 Units/L [facility] ALT 114(H) 7 - 55 Units/L [facility] AST 81(H) 10 - 50 Units/L [facility] Blood specimen (specimen) 12/31/2019 5:55 PM CDT 12/31/2019 6:15 PM CDT us Peter Styles Jr., MD LAB BLOOD ORDERABLES Final Result Performing Organization Address [facility] Co de Phone Number [facility] [place] [address] * (ABNORMAL) C-peptide (12/31/2019 5:55 PM CDT) C-peptide 11.2(H) 1.1 - 4.4 ng/mL [facility] Blood specimen (specimen) 12/31/2019 5:55 PM CDT 12/31/2019 6:15 PM CDT us Peter Styles Jr., MD LAB BLOOD ORDERABLES Final Result Performing Organization Address [facility] de Phone Number [facility] [address] documented in this encounter Visit Diagnoses Diagnosis Type 2 diabetes mellitus with ketoacidosis without coma, without long-term current use of insulin (HCC) documented in this encounter Care Teams Sealer Sander Relationship Specialty Start Date End Date Jann Burrows MD [address] [place] [address] [address] [place] [address] PCP - General Hematology 03/13/19 10/28/21 documented as of this encounter
--- OUTSIDE RECORDS SUMMARY | 2024-05-10 20:21 | XMS_ITS | Encounter Summary ---
Author Organization [facility] Address [address] [place] [address] Phone Care Team Providers Care Processing Technician Name Role Phone Jann Burrows MD Primary Care Provider [phone] Mariana Monique MD Unavailable Encounter Details Date Type Department Care Team (Late st Contact Info) Description 05/26/2020 Orders Only [facility] Endocrinology Metabolism and Lipid [address] [facility] 5th [place] [address] [place] [address] Peter Styles Jr., MD [address] [place] [address] Diabetic ketoacidosis without coma associated with other [...] on file Legal Sex Male 5:01 AM RN CLINICIAN Gender Identity Male 12/18/2017 12:38 PM CDT Sexual Orientation Not on file 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
--- OUTSIDE RECORDS SUMMARY | 2024-05-10 20:21 | XMS_ITS | Encounter Summary ---
Author Organization [facility] Address [address] [place] [address] Care Team Providers Care Film Processor Name Role Phone Jann Burrows MD Primary Care Provider [phone] Mariana Monique MD Unavailable [phone] Encounter Details Date Type Department Care Team (Late st Contact Info) Description 03/14/[address] [facility] [address] [facility] [address] [place] [address] Jann Burrows MD [address] [facility] [address] [place] [address] Social History Tobacco Use Types Packs/Day Years Used Date Smoking Tobacco: Never Smokeless Tobacco: Former Chew Quit: 01/13/2019 Alcohol Use Standard Drinks/Week Comments Not Currently 0 (1 standard drink = 0.6 oz pur e alcohol) Sex and Gender Information Value Date Recorded Sex Assigned at Not on file Legal Sex Male 5:01 AM TYPE PHOTOGRAPHY SUPERVISOR Gender Identity Male 12/18/2017 12:38 PM CDT Sexual Orientation Not on file 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
--- OUTSIDE RECORDS SUMMARY | 2024-05-10 20:21 | XMS_ITS | Encounter Summary ---
Author Organization [facility] Address [address] [place] [address] Phone Care Team Providers Care Resin Painter Name Role Phone Jann Burrows MD Primary Care Provider [phone] Encounter Details Date Type Department Care Team (Late st Contact Info) Description 12/31/2019 Orders Only [facility] Endocrinology Metabolism and Lipid [address] [facility] 5th [place] [address] [place] [address] Peter Styles Jr., MD [address] [place] [address] Type 2 diabetes mellitus with ketoacidosis without coma, without long-term current use of insulin ([facility]) (Primary Dx) Social History Tobacco Use Types Packs/Day Years Used Date Smoking Tobacco: Every Day Cigarettes Smokeless Tobacco: Current Chew Alcohol Use Standard Drinks/Week Comments Yes 24 (1 standard drink = 0.6 oz pu re alcohol) CAGE negative. Case per week. 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
--- OUTSIDE RECORDS SUMMARY | 2024-05-10 20:21 | XMS_ITS | Encounter Summary ---
Author Organization [facility] Address [address] [place] [address] Phone Care Team Providers Care Bath House Attendant Name Role Phone Jann Burrows MD Primary Care Provider [phone] Mariana Monique MD Unavailable [phone] Encounter Details Date Type Department Care Team (Late st Contact Info) Description 12/30/2019 Telephone [facility] Endocrinology Metabolism and Lipid [address] [facility] 5th [place] [address] [place] [address] Noemí Najera LPN Social History Tobacco Use Types Packs/Day Years Used Date Smoking Tobacco: Every Day Cigarettes Smokeless Tobacco: Current Chew Alcohol Use Standard Drinks/Week Comments Yes 24 (1 standard drink = 0.6 oz pu re alcohol) CAGE negative. Case per week. 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
--- OUTSIDE RECORDS SUMMARY | 2024-05-10 20:21 | XMS_ITS | Encounter Summary ---
Author Organization [facility] Address [address] [facility] [address] [place] [address] Phone Care Team Providers Care Superintendent Colliery Name Role Phone Jann Burrows MD Primary Care Provider [phone] Mariana Monique MD Unavailable [phone] Reason for Visit * Consultation (Routine) - Closed Specialty Diagnoses / Procedures Referred By Contac t Referred To Contact Sleep Medicine Diagnoses Mood disorder (HCC) Sleep disturbance Abiola Villegas NP [facility] [address] [place] [address] Phone: tel: fax: [facility] [address] [facility] [address] [place] [address] Phone: tel: Referral ID Status Reason Start Date Expiration Date V isits Requested Visits Authorized [id number] Closed Specialty Services Required 06/19/2021 07/19/2022 1 1 Encounter Details Date Type Department Care Team (Late st Contact Info) Description 07/21/2021 8:30 AM CDT Telemedicine [facility] [address] [facility] 6th [address] [place] [address] Amanda Costello NP [address] [facility] [address] [place] [address] Sleep disturbance (Primary Dx); Morning headache; Morbid [...] on file Legal Sex Male 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 A registered andtrained radiology ct technologist will get you hooked up for the study and be available for any questions or concerns you may have during the night. There is also a sleep medicine physician weatherization field technician overnight for the rare instance where there are any issues that require a physician's expertise. The [facility] is accredited by the [place] [employer], which ensures that our sleep center meets all standards and safety requirements to ensure patient-centeredhigh quality care. After your sleep test, we will call you or send you a message on [email or web address] with results and a management plan. This [...] 1. Stefan Pinon???Ganesh sleep apnea (5 min) https://www.WISHI.com/watch?v=9DbcRdRd8jQ 2. [facility] - Sleep Apnea Treatment (13 min) https://www.Science Exchangeube.com/watch?v=nKdEbosOlII Tips for Healthy Sleep: The CDC and the [place] [employer] recommend adults get [...] which took place via Real-time video connection (Sulfagenix, Fundacity, Incom or similar). During the visit, I was located at home office in the [facility] and the patient was located home in [place]. The session started at 8:40 am and [...] in a telephone or video visitduring the [address] emergency. After being given an opportunity [...] Name: CRISTI NIXON Medical Record Number (MRN): [id number] Date of (): 1995 Encounter Date: 07/21/2021 [facility] Chief Complaint Cristi Nixon is [...] him to fall backasleep. 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 Morbid obesity ([facility]) ([facility]) Portable/Home Sleep Study 4. Mood disorder ([facility]) ([facility]) Ambulatory referral to Sleep Medicine [...] Where should this exam be performed? Answer: [facility] (All Locations) [167] Thank you for allowing me to participate in the care of your patient. If you have any questions, feel free to contact me. Sincerely, Amanda Costello APRN, OLIVER FILTER OPERATOR-C Sleep Medicine Center, Department of Neurology [facility] documented in this encounter Plan of Treatment [...] 07/21/2021 documented in this encounter Care Teams Superintendent Colliery Relationship Specialty Start Date End Date Jann Burrows MD [address] [place] [address] PCP - General Hematology 03/13/19 10/28/21 Mariana Monique MD [address] [place] [address] Referring Physician Internal Medicine 01/17/20 documented as of this encounter
--- OUTSIDE RECORDS SUMMARY | 2024-05-10 20:21 | XMS_ITS | Encounter Summary ---
Author Organization [facility] Healthcare Address [address] [place] [address] Care Team Providers Care Pai Gow Dealer Name Role Phone Jann Burrows MD Primary Care Provider [phone] Mariana Self MD Unavailable Reason for Visit * Reason Comments COVID-19 EVALUATION Encounter Details Date Type Department Care Team (Latest Contact Info) Description 01/14/2020 5:54 PM CDT - 01/17/2020 10:35 AM CDT Hospital Encounter [facility] IMU [address] [place] [address] Francine Denis MD [address] [place] [address] Berenice Lassiter MD [address] [place] [address] Giuliano Linton Jr., MD [address] [place] [address] [place] [address] Pneumonia due to COVID-19 virus (Primary Dx); [...] on file Legal Sex Male 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 Gender Identity Male 12/18/2017 12:38 PM CDT Sexual Orientation Not on file 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 Continue Decadron day 2 of 10 maximum [...] 1 View Portable Result Date: 01/14/2020 Narrative: [facility] Imaging Center Imaging Result Name: CRISTI VELEZ OrderingPhys: FRANCINE DENIS Age: 24 Date of : 1995 Accession Number: [id number] Date of Service: 01/14/2020 Gender: M EXAM [...] by Radames Pritchard M.D. AB: Report ID: [id number] Reading Location: [id number] Medications: Your medication list CONTINUE taking these [...] education OneTouch Delica Plus Lancet 33 gauge [facility] Generic drug: lancets lisinopriL 40 mg tablet [...] Internal Medicine Relationship: Referring Physician Uzma HARDIN [address] [facility] [address] Next Steps: Follow up Instructions: Please call to schedule a telemedicine follow-up appointment in 1- 2 weeks. Questions: Instructions for follow-up (appointment date and time): Please call to schedule a telemedicine follow-up appointment in 1-2 weeks. To provider: DARELL SELFILY NITIN Total time spent on day of discharge 25 minutes Signed: Giuliano Linton Jr., MD Internal Medicine - Hospitalist [facility] - Adult Hospitalist Service VIRTUAL VISIT DONE [...] was ALWAYS EXCELLENT! Please call IMU at [phone] if you have any questions regarding your care. Wishing you continued improvement during your recovery. Your Intermediate Care Unit Team * Attachments The following attachments cannot be sent through Care Everywhere. * Community Acquired Pneumonia (Discharge Care) (Nepali) documented in this encounter Medications at Time [...] Jr., MD - 01/16/2020 5:31 PM CDT [facility] Hospitalist Service Progress Note Patient Name: Cristi Velez Patient : 1995 Age/Sex: 24 y.o. male Room/Bed: [id number] Admission Date/Time: 01/14/2020 5:54 PM Date: 01/16/2020 [...] 1 View Portable Result Date: 01/14/2020 Narrative: [facility] Imaging Center Imaging Result Name: CRISTI VELEZ OrderingPhys: FRANCINE DENIS Age: 24 Date of : 1995 Accession Number: [id number] Date of Service: 01/14/2020 Gender: M EXAM [...] by Radames Pritchard M.D. 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 Continue Decadron day 2 of . No [...] Linton Jr., MD Internal Medicine - Hospitalist [facility] - Adult Hospitalist Service 01/16/2020 5:31 PM * Giuliano Linton Jr., MD - 01/15/2020 3:15 PM CDT [facility] Hospitalist Service Progress Note Patient Name: Cristi Velez Patient : 1995 Age/Sex: 24 y.o. male Room/Bed: [id number] Admission Date/Time: 01/14/2020 5:54 PM Date: 01/15/2020 [...] 1 View Portable Result Date: 01/14/2020 Narrative: [facility] Imaging Center Imaging Result Name: CRISTI VELEZ OrderingPhys: FRANCINE CINDIREENA Age: 24 Date of : 1995 Accession Number: [id number] Date of Service: 01/14/2020 Gender: M EXAM [...] by Radames Pritchard M.D. 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 Continue Decadron day 2 of 10. No [...] Linton Jr., MD Internal Medicine - Hospitalist [facility] - Adult Hospitalist Service 01/15/2020 3:15 PM * Anisha Smith, [facility] - 01/15/2020 11:33 AM CDT Adjust [...] as needed MARSHALL done * Sal Dutta, [facility] - 01/15/2020 9:21 AM CDT Images [...] NPH/steroid dosed BID should be entered at [phone] only so fingerstick blood sugars are available. NPH orders should include ? Hold if FBS <110.? 5. Pharmacists will enter Hypoglycemia Protocol orders in [facility] when ordering insulin on an insulin na??ve patient without current Hypoglycemia Protocol orders. 6. Pharmacists will enter Point of Care blood glucose (POCT) orders in [facility] when ordering insulin on an insulin na??ve [...] . (NON-Naive) Thank you, Sal Dutta RPh [facility] Pharmacy department * Izabella Beckwith - 01/15/2020 [...] more, Physical finding, Lab abnormality ?? Interventions: [place] diet preferences within the limits of nutrition [...] Type of Weight Used for Estimated Kcals: [place] ?? MSJ Total Energy Needs: 3251 kcal using ?? JALIL State Total Energy Needs + Fever Factor: 3251 ?? Total Protein Estimated Needs (gm): 129.74 Protein Needs Based on g/k.3 Type of Weight Used for Estimated Protein : [place]. ?? Total Fluid Estimated Needs: 2495 Fluid [...] ??? Anxiety ??? Depression ??? Diabetes mellitus ([facility]) ??? HTN (hypertension) ??? Metabolic syndrome ??? Morbid obesity with BMI of 50.0-59.9, adult ([facility]) 07/10/2017 Medications and Lab Review: Scheduled Meds: [...] Lassiter MD - 01/14/2020 9:54 PM CDT [facility] Adult Hospitalist Service History and Physical Patient Name: Cristi Velez Patient : 1995 Age/Sex: 24 y.o. male Room/Bed: [place] [id number]/[id number] Admission Date/Time: 01/14/2020 5:54 PM Date: 01/14/2020 Time: 9:55 PM Primary Care Physician: Jann Burrows MD PCP Office Location: [address] [place] [address] PCP SUBJECTIVE: Cristi Velez is a 24 [...] 90 tablet 3 ??? blood glucose diagnostic ([employer]Touch Ultra Test) strip Test daily before all [...] times daily 40 mL 3 ??? lancets [facility] Patient needs in room for diabetes education [...] ??? OneTouch Delica Plus Lancet 33 gauge [facility] ??? pen needle, diabetic (BD ULTRA-FINE RADHA [...] tongue midline, mucosa moist Lungs CTA Heart: [id number] Abd: +BS, Non Tender, Non distended, No [...] 1 View Portable Result Date: 01/14/2020 Narrative: [facility] Imaging Center Imaging Result Name: CRISTI VELEZ OrderingPhys: FRANCINE DENIS Age: 24 Date of : 1995 Accession Number: [id number] Date of Service: 01/14/2020 Gender: M EXAM [...] by Radames Pritchard M.D. AB: Report ID: [id number] Reading Location: [id number] ASSESSMENT AND PLAN: Principal Problem: Pneumonia due [...] Berenice Lassiter MD Internal Medicine - Hospitalist [facility] - Adult Hospitalist Service CC: Jnan Burrows MD documented in this encounter ED [...] No known fever. 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 His regular [...] (LIPITOR) 20 mg tablet blood glucose diagnostic ([employer] Ultra Test) strip blood-glucose meter kit carvedilol [...] by Radames Pritchard M.D. AB: Report ID: [id number] Reading Location: [place] [address] Chest x-ray is Poor quality. Poor penetration. EKG (if obtained): (All EKGs are interpreted by myself in the absence of a rental manager) Rate is approximately 100-120, regular sinus rhythm, [...] Comment: COVID -19 swab obtained Saturday at [facility] and [place]. Positive result phone call back today per patient's report. By: Francine Denis MD Clinical Impression: 1. Pneumonia due to COVID-19 virus 2. Tachycardia 3. Elevated LFTs Disposition: Admit (Please note that portions of this note may have been completed with a voice recognition program. Package Handler errors occur. Please contact me for any [...] 270(H) 71 - 98 mg/dL [facility] ([place]) Blood specimen (specimen) 01/17/2020 8:12 AM CDT 01/17/2020 8:12 AM CDT Giuliano Linton Jr., MD LAB POCT ORDERABLES - DEVICE Final Result Performing Organization Address City/State/[facility] Co de Phone Number [facility] ([place]) 1 [facility] Department [place] [address] * eGFR (01/17/2020 7:29 AM CDT) Pathologist [facility] eGFR 132 mL/min/1.7 3 m2 [facility] ([place]) Comment: Interpretive Data Reference Interval Normal ?>/= 90 mL/min/1.73m2 Mildly decreased* ? 60 - 89 mL/min/1.73m2 Mildly to moderately decreased ?45 - 59 mL/min/1.73m2 Moderately to severely decreased ??30 - 44 mL/min/1.73m2 Severely decreased ?15 - 29 mL/min/1.73m2 Kidney Failure ?< 15 ??mL/min/1.73m2 *Relative to young adult level If -Nauruan multiply value by 1.16. Estimated glomerular filtration [...] MD LAB BLOOD ORDERABLE S Final Result [facility] ([place]) 1 [facility] [place] [address] * (ABNORMAL) Comprehensive metabolic panel (01/17/2020 7:29 [...] ORDERABLE S Final Result Performing Organization Address City/[facility]/ZIP Co de Phone Number [facility] ([place]) 1 [facility] [employer] [address] * Phosphorus (01/17/2020 7:29 AM CDT) Phosphorus, pl 3.9 2.3 - 4.5 mg/dL [facility] ([place]) Blood specimen (specimen) 01/17/2020 7:29 AM CDT 01/17/2020 7:43 AM CDT Giuliano Linton Jr., MD LAB BLOOD ORDERABLE S Final Result [facility] ([place]) 1 [facility] [place] [address] * Magnesium (01/17/2020 7:29 AM CDT) Magnesium 2.1 1.4 - 2.5 mg/dL [facility] ([place]) Blood specimen (specimen) 01/17/2020 7:29 AM CDT 01/17/2020 7:43 AM CDT us Giuliano Linton Jr., MD LAB BLOOD ORDERABLE S Final Result [facility] ([place]) 1 [facility] [employer] [place] [address] * CBC without differential (01/17/2020 7:29 AM CDT) WBC 5.3 3.8 - 9.9 K/cumm [facility] ([place]) Hgb 13.7 13.0 - 17.5 g/dL [facility] ([place]) Hct 39.4 38.9 - 50.3 % [facility] ([place]) Plt 228 150 - 400 K/cumm [facility] ([place]) MPV 10.0 9.1 - 12.3 fL [facility] ([place]) RBC 4.69 4.30 - 5.80 M/cumm [facility] ([place]) MCV 84.0 81.3 - 96.4 fL [facility] ([place]) MCH 29.2 27.1 - 33.3 pg [facility] ([place]) MCHC 34.8 32.3 - 35.7 g/dL [facility] ([place]) RDW CV 11.9 11.1 - 14.9 % [facility] ([place]) RDW SD 36.4 35.7 - 48.1 fL [facility] ([place]) NRBC abs 0.00 0.00 - 0.01 K/cumm [facility] ([place]) Blood specimen (specimen) 01/17/2020 7:29 AM CDT 01/17/2020 7:43 AM CDT us Giuliano Linton Jr., MD LAB BLOOD ORDERABLE S Final Result [facility] ([place]) 1 [facility] [employer] [place] [address] * (ABNORMAL) POCT glucose (01/17/2020 1:51 AM CDT) Glucose, POC 294(H) 71 - 98 mg/dL [facility] ([place]) Blood specimen (specimen) 01/17/2020 1:51 AM CDT 01/17/2020 1:51 AM CDT Giuliano Linton Jr., MD LAB POCT ORDERABLES - DEVICE Final Result Performing Organization Address [facility]/ZIP Co de Phone Number [facility] ([place]) 1 [facility] [place] [address] * (ABNORMAL) POCT glucose (01/16/2020 8:39 PM CDT) Glucose, POC 296(H) 71 - 98 mg/dL [facility] ([place]) Blood specimen (specimen) 01/16/2020 8:39 PM CDT 01/16/2020 8:39 PM CDT Giuliano Linton Jr., MD LAB POCT ORDERABLES - DEVICE Final Result Performing Organization Address [facility] Co de Phone Number [facility] ([place]) 1 [facility] [place] [address] * (ABNORMAL) POCT glucose (01/16/2020 5:15 PM CDT) Glucose, POC 307(H) 71 - 98 mg/dL [facility] ([place]ICA) Blood specimen (specimen) 01/16/2020 5:15 PM CDT 01/16/2020 5:15 PM CDT Giuliano Linton Jr., MD LAB POCT ORDERABLES - DEVICE Final Result Performing Organization Address City/[facility]/ZIP Co de Phone Number [facility] ([place]) 1 [facility] [place] [address] * (ABNORMAL) POCT glucose (01/16/2020 11:53 AM CDT) Glucose, POC 270(H) 71 - 98 mg/dL [facility] ([place]) Blood specimen (specimen) 01/16/2020 11:53 AM CDT 01/16/2020 11:53 AM CDT us Giuliano Linton Jr., MD LAB POCT ORDERABLES - DEVICE Final Result Performing Organization Address City/[facility]/ZIP Co de Phone Number [facility] ([place]) [address] [place] [address] * (ABNORMAL) POCT glucose (01/16/2020 7:46 AM CDT) Glucose, POC 309(H) 71 - 98 mg/dL [facility] ([place]) Blood specimen (specimen) 01/16/2020 7:46 AM CDT 01/16/2020 7:46 AM CDT us Giuliano Linton Jr., MD LAB POCT ORDERABLES - DEVICE Final Result Performing Organization Address [facility] de Phone Number TR[facility]IE [facility] ([place]) 1 [facility] [place] [address] * eGFR (01/16/2020 7:03 AM CDT) [facility] eGFR 143 mL/min/1.7 3 m2 [facility] ([place]) Comment: Interpretive Data Reference Interval Normal ?>/= 90 mL/min/1.73m2 Mildly decreased* ? 60 - 89 mL/min/1.73m2 Mildly to moderately decreased ?45 - 59 mL/min/1.73m2 Moderately to severely decreased ??30 - 44 mL/min/1.73m2 Severely decreased ?15 - 29 mL/min/1.73m2 Kidney Failure ?< 15 ??mL/min/1.73m2 *Relative to young adult level If -Nauruan multiply value by 1.16. Estimated glomerular filtration [...] ORDERABLE S Final Result Performing Organization Address City/[facility] Co de Phone Number [facility] ([place]) 1 [facility] [employer] [address] * D-dimer, quantitative (01/16/2020 7:03 AM CDT) [...] ORDERABLE S Final Result Performing Organization Address City/[facility]/ZIP Co de Phone Number [facility] ([place]) 1 [facility] [employer] [address] * (ABNORMAL) Comprehensive metabolic panel (01/16/2020 7:03 [...] S Final Result [facility] ([place]) 1 [facility] [place] [address] * (ABNORMAL) Ferritin (01/16/2020 7:03 AM CDT) Ferritin 1,523(H) 30 - 400 ng/mL [facility] ([place]) Blood specimen (specimen) 01/16/2020 7:03 AM CDT 01/16/2020 7:05 AM CDT us Giuliano Linton Jr., MD LAB BLOOD ORDERABLE S Final Result Performing Organization Address City/[facility]/ZIP Co de Phone Number [facility] ([place]) 1 [facility] [employer] [place] [address] * Phosphorus (01/16/2020 7:03 AM CDT) Phosphorus, pl 3.9 2.3 - 4.5 mg/dL [facility] ([place]) Blood specimen (specimen) 01/16/2020 7:03 AM CDT 01/16/2020 7:05 AM CDT us Giuliano Linton Jr., MD LAB BLOOD ORDERABLE S Final Result [facility] ([place]) 1 [facility] [employer] [place] [address] * Magnesium (01/16/2020 7:03 AM CDT) Magnesium 2.3 1.4 - 2.5 mg/dL [facility] ([place]) Blood specimen (specimen) 01/16/2020 7:03 AM CDT 01/16/2020 7:05 AM CDT us Giuliano Linton Jr., MD LAB BLOOD ORDERABLE S Final Result [facility] ([place]) 1 [facility] [place] [address] * CBC without differential (01/16/2020 7:03 AM CDT) WBC 4.4 3.8 - 9.9 K/cumm [facility] ([place]) Hgb 13.6 13.0 - 17.5 g/dL [facility] ([place]) Hct 39.5 38.9 - 50.3 % [facility] ([place]) Plt 235 150 - 400 K/cumm [facility] ([place]) MPV 9.6 9.1 - 12.3 fL [facility] ([place]) RBC 4.72 4.30 - 5.80 M/cumm [facility] ([place]) MCV 83.7 81.3 - 96.4 fL [facility] ([place]) MCH 28.8 27.1 - 33.3 pg [facility] ([place]) MCHC 34.4 32.3 - 35.7 g/dL [facility] ([place]) RDW CV 11.9 11.1 - 14.9 % [facility] ([place]) RDW SD 36.1 35.7 - 48.1 fL [facility] ([place]) NRBC abs 0.00 0.00 - 0.01 K/cumm [facility] ([place]) Blood specimen (specimen) 01/16/2020 7:03 AM CDT 01/16/2020 7:05 AM CDT Giuliano Linton Jr., MD LAB BLOOD ORDERABLE S Final Result [facility] ([place]) 1 [facility] [place] [address] * (ABNORMAL) POCT glucose (01/16/2020 6:32 AM CDT) Glucose, POC 274(H) 71 - 98 mg/dL [facility] ([place]) Blood specimen (specimen) 01/16/2020 6:32 AM CDT 01/16/2020 6:32 AM CDT Giuliano Linton Jr., MD LAB POCT ORDERABLES - DEVICE Final Result Performing Organization Address City/[facility]/ZIP Co de Phone Number [facility] ([place]) 1 [facility] [place] [address] * (ABNORMAL) POCT glucose (01/16/2020 2:20 AM CDT) Glucose, POC 304(H) 71 - 98 mg/dL [facility] ([place]) Blood specimen (specimen) 01/16/2020 2:20 AM CDT 01/16/2020 2:20 AM CDT us Giuliano Linton Jr., MD LAB POCT ORDERABLES - DEVICE Final Result Performing Organization Address [facility] Co de Phone Number [facility] ([place]) 1 [facility] [place] [address] * (ABNORMAL) POCT glucose (01/15/2020 8:38 PM CDT) Glucose, POC 326(H) 71 - 98 mg/dL [facility] ([place]) Blood specimen (specimen) 01/15/2020 8:38 PM CDT 01/15/2020 8:38 PM CDT Giuliano Linton Jr., MD LAB POCT ORDERABLES - DEVICE Final Result Performing Organization Address City/[facility]/ZIP Co de Phone Number [facility] ([place]) 1 [facility] [place] [address] * Procalcitonin (01/15/2020 6:55 PM CDT) Procalcitonin <0.10 <=0.15 ng/mL [facility] ([place]) Comment: Test Performed by: [facility] [address] [place] [address] [place] Lacer Hand: Josiah Turk M.D. Ph.D.; CLIA# [id number] Blood specimen (specimen) 01/15/2020 6:55 PM CDT 01/15/2020 6:57 PM CDT Narrative [facility] ([place]) - 01/19/2020 9:40 AM CDT Sent bag up at01/15/2020 16:33:03 CDT [id number] us Giuliano Linton Jr., MD LAB BLOOD ORDERABLE S Final Result Performing Organization Address City/[facility]/ZIP Co de Phone Number [facility] ([place]) 1 [facility] [place] [address] * (ABNORMAL) POCT glucose (01/15/2020 5:01 PM CDT) Glucose, POC 334(H) 71 - 98 mg/dL [facility] ([place]) Blood specimen (specimen) 01/15/2020 5:01 PM CDT 01/15/2020 5:01 PM CDT us Giuliano Linton Jr., MD LAB POCT ORDERABLES - DEVICE Final Result Performing Organization Address [facility] Co de Phone Number [facility] ([place]) 1 [facility] [place] [address] * (ABNORMAL) POCT glucose (01/15/2020 11:28 AM CDT) Glucose, POC 319(H) 71 - 98 mg/dL TRACIE [facility] ([place]) Comment:Glu2: RN/ Notified Blood specimen (specimen) 01/15/2020 11:28 AM CDT 01/15/2020 11:28 AM CDT us Berenice Lassiter MD LAB POCT ORDERABLES - DEVICE Final Result Performing Organization Address City/[facility]/ZIP Co de Phone Number [facility] ([place]) 1 [facility] [place] [address] * (ABNORMAL) POCT glucose (01/15/2020 8:01 AM CDT) Glucose, POC 242(H) 71 - 98 mg/dL [facility] ([place]) Blood specimen (specimen) 01/15/2020 8:01 AM CDT 01/15/2020 8:01 AM CDT us Giuliano Linton Jr., MD LAB POCT ORDERABLES - DEVICE Final Result [facility] ([place]) 1 [facility] [employer] [place] [address] * (ABNORMAL) POCT glucose (01/15/2020 2:37 AM CDT) Glucose, POC 189(H) 71 - 98 mg/dL [facility] ([place]) Blood specimen (specimen) 01/15/2020 2:37 AM CDT 01/15/2020 2:37 AM CDT us Berenice Lassiter MD LAB POCT ORDERABLES - DEVICE Final Result Performing Organization Address [facility] Co de Phone Number [facility] ([place]) 1 [facility] [employer] [place] [address] * (ABNORMAL) POCT glucose (01/14/2020 10:04 PM CDT) Glucose, POC 133(H) 71 - 98 mg/dL [facility] ([place]) Blood specimen (specimen) 01/14/2020 10:04 PM CDT 01/14/2020 10:04 PM CDT us Berenice Lassiter MD LAB POCT ORDERABLES - DEVICE Final Result [facility] ([place]) 1 [facility] [employer] [place] [address] * Troponin T (01/14/2020 9:35 PM CDT) [...] limit for troponin assay. ??Journal of the [place] College of Cardiology 2012;60:1581-98. Current Interpretive Data Last Revised Date: 2017. Blood specimen (specimen) 01/14/2020 9:35 PM CDT 01/14/2020 9:41 PM CDT us Francine Denis MD LAB BLOOD ORDERABLES Fin al Result [facility] ([place]ICA) 1 [facility] [place] [address] * Blood culture Blood Antecubital, left (01/14/2020 6:35 PM CDT) Report Final Report: No growth [facility] ([place]ESSICA) Comment:Testing performed by : [facility], [address], [place]., [address] Blood specimen (specimen) (Antecubital, left) 01/14/2020 6:35 [...] performance characteristics have been verified by the [facility] Microbiology Laboratory. 5. ?For questions about this culture, contact the Microbiology Laboratory at [phone]. Interpretive data was last revised on 2019. us Francine Denis MD LAB MICROBIOLOGY - GENER AL ORDERABLES Final Result [facility] ([place]) 1 [facility] [place] [address] * XR CHEST 1 VIEW PORTABLE (01/14/2020 [...] PM T: ??01/14/2020 7:53 PM Report ID: [id number] Reading Location: ??[id number] Narrative 01/14/2020 7:56 PM CDT [facility] Imaging Center ?Imaging Result Name: CRISTI VELEZ ? Ordering Phys: FRANCINE DENIS Age: 24 ?Date of : 1995 ? Accession Number: [id number] Date of Service: 01/14/2020 ??Gender: M EXAM [...] Procedure Note Radames Pritchard MD - 01/14/2020 [facility] Imaging Center Imaging Result Name: TIFFANI CRISTI Darrick Ordering Phys: FRANCINE DENIS Age: 24 Date of : 1995 Accession Number: [id number] Date of Service: 01/14/2020 Gender: M EXAM [...] by Radames Pritchard M.D. AB: Report ID: [id number] Reading Location: [place] [address] us Francine Denis MD IMG XR PROCEDURES Final Result * ECG 12 lead (01/14/2020 6:24 PM CDT) 01/14/2020 6:24 PM CDT Narrative [facility] - 01/15/2020 12:54 PM CDT Vent Rate: 0 bpm RR Interval: 0 msec MT Interval: 0 msec QRS Duration: 0 msec QT Interval: 0 msec QTC Interval: 0 msec P-R-T Falcon: 0 - 0 - 0 degrees Sinus tachycardia Old inferior infarct Electronically Signed By: Dr Giuliano Velasco Francine Denis MD ECG ORDERABLES Final Re sult Performing Organization Address [facility]/ZIP Co de Phone Number [facility] [employer] [facility] * (ABNORMAL) Ferritin (01/14/2020 6:07 PM CDT) Ferritin 1,661(H) 30 - 400 ng/mL TRACIE LEIVA ([place]) Blood specimen (specimen) 01/14/2020 6:07 PM CDT 01/14/2020 6:53 PM CDT Francine Denis MD LAB BLOOD ORDERABLES Arsh cristel Result - Final Performing Organization Address [facility] Co de Phone Number TRACIE LEIVA ([place]) 1 [facility] [employer] [place] [address] * (ABNORMAL) CRP (acute phase) (01/14/2020 6:07 PM CDT) CRP 25.6(H) <=10.0 mg/L TRACIE COLE (JESSICA) Blood specimen (specimen) 01/14/2020 6:07 PM CDT 01/14/2020 6:53 PM CDT Francine Denis MD LAB BLOOD ORDERABLES Fin al Result Performing Organization Address [facility] Co de Phone Number TRACIE LEIVA (JESSICA) 1 [facility] Department [place] [address] * D-dimer, quantitative (01/14/2020 6:07 PM CDT) Pathologist [facility] D-Dimer 319 <=499 ng/mL [facility] ([place]) Comment: Interpretive data FDA approved the D-dimer, [...] MD LAB BLOOD ORDERABLES Fin al Result [facility] ([place]) 1 [facility] Department of Laboratories [place], [place] [id number] * eGFR (01/14/2020 6:06 PM CDT) [facility] eGFR 126 mL/min/1.7 3 m2 TRACIE [facility] ([place]) Comment: Interpretive Data Reference Interval Normal ?>/= 90 mL/min/1.73m2 Mildly decreased* ? 60 - 89 mL/min/1.73m2 Mildly to moderately decreased ?45 - 59 mL/min/1.73m2 Moderately to severely decreased ??30 - 44 mL/min/1.73m2 Severely decreased ?15 - 29 mL/min/1.73m2 Kidney Failure ?< 15 ??mL/min/1.73m2 *Relative to young adult level If -Nauruan multiply value by 1.16. Estimated glomerular filtration [...] Final Res ult [facility] (JESSICA) 1 [facility] [place] [address] * Differential, auto (01/14/2020 6:06 PM CDT) [...] BLOOD ORDERABLES Final Res ult TRACIE LEIVA ([place]) 1 [facility] [place] [address] * Blood culture Blood Antecubital, right (01/14/2020 6:06 PM CDT) Report Final Report: No growth TRACIE LEIVA (JESSICA) Comment:Testing performed by : [facility], [address], [place]., [address] Blood specimen (specimen) (Antecubital, right) 01/14/2020 6:06 PM CDT 01/14/2020 10:14 PM CDT Narrative TRACIE LEIVA ([place]) - 01/19/2020 7:00 AM CDT 1. ?Blood [...] organism identification may be performed using the Snappy Chowigene Gram-Positive Blood Culture Assay. This assay detects microbial DNA in positive blood culture broth via hybridization of target DNA to capture oligonucleotides on a microarray. This assay has been cleared by the [place] Food and Drug Administration and its performance characteristics have been verified by the [facility] Microbiology Laboratory. 5. ?For questions about this culture, contact the Microbiology Laboratory at [phone]. Interpretive data was last revised on 2019. Francine Denis MD LAB MICROBIOLOGY - GENER AL ORDERABLES Final Result Performing Organization Address City/[facility]/ZIP Co de Phone Number ESVINREENA ABBIE ([place]) 1 [facility] [place] [address] * Sepsis Lactate w/ Reflex (01/14/2020 6:06 PM CDT) [facility] Sepsis Lactate 1.8 0.7 - 2.0 mmol/L TRACIE LEIVA ([place]) Blood specimen (specimen) 01/14/2020 6:06 PM CDT 01/14/2020 6:42 PM CDT Francine Denis MD LAB BLOOD ORDERABLES Fin al Result Performing Organization Address City/[facility] Co de Phone Number TRACIE ABBIE ([place]) 1 [facility] [place] [address] * (ABNORMAL) Comprehensive metabolic panel (01/14/2020 6:06 [...] Final Res ult TRACIE LEIVA (JESSICA) 1 [facility] Department [place] [address] * CBC with auto differential (01/14/2020 6:06 PM CDT) WBC 4.1 3.8 - 9.9 K/cumm [facility] (JESSICA) Hgb 14.7 13.0 - 17.5 g/dL [facility] (JESSICA) Hct 42.4 38.9 - 50.3 % [facility] (JESSICA) Plt 226 150 - 400 K/cumm [facility] (JESSICA) MPV 9.6 9.1 - 12.3 fL [facility] (JESSICA) RBC 5.04 4.30 - 5.80 M/cumm CERNER [...] Final Res ult TRACIE LEIVA (JESSICA) 1 [facility] [place] [address] documented in this encounter Visit Diagnoses Diagnosis [...] inhaler 2 puff 2 puff, inhalation, Once (respiratory support technician), On Dayana 01/14/20 at 1937, For 1 [...] Shelia Lam, BRYANNA)1238 (Given - Provider: Shelia Lam, BRYANNA)1724 (Given [...] 0939 (Given - Provider: Shelia Lam RN) 1522 (See Alternative - Provider: Shelia Lam RN) [...] documented as of this encounter Care Teams Pai Gow Dealer Relationship Specialty Start Date End Date Jann Burrows MD [address] [place] [address] PCP - General Hematology 03/13/19 10/28/21 Mariana Self MD [address] [place] [address] Referring Physician Internal Medicine 01/17/20 documented as of this encounter
--- OUTSIDE RECORDS SUMMARY | 2024-05-10 20:21 | XMS_ITS | Encounter Summary ---
Author Organization [facility] Address [address] [place] [address] Phone Care Team Providers Care Casing Material Weigher Name Role Phone Jann Burrows MD Primary Care Provider [phone] Mariana Monique MD Unavailable [phone] Encounter Details Date Type Department Care Team (Late st Contact Info) Description 06/13/2021 Telephone [facility] Scheduling [address] [place] [address] Jenifer Tamez Social History Tobacco Use Types Packs/Day Years Used Date Smoking Tobacco: Never Smokeless Tobacco: Former Chew Quit: 01/13/2019 Alcohol Use Standard Drinks/Week Comments Not Currently 0 (1 standard drink = 0.6 oz pur e alcohol) Sex and Gender Information Value Date Recorded Sex Assigned at Not on file Legal Sex Male 5:01 AM MEAT PROCESSOR Gender Identity Male 12/18/2017 12:38 PM CDT Sexual Orientation Not on file 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 Not on file Not on file Not on file documented as of this encounter Miscellaneous Notes * Telephone Encounter - Jenifer Tamez - 06/13/2021 3:01 PM CST Wegovy 0.25MG/0.5ML auto-injectors Status: Approved Valid dates: 06/13/2021-01/11/2022 [place]: [id number] PROCESSOR documented in this encounter Plan of Treatment Not on file documented as of this encounter Visit Diagnoses Not on filedocumented in this encounter Care Teams Casing Material Weigher Relationship Specialty Start Date End Date Jann Burrows MD [address] [place] [address] PCP - General Hematology 03/13/19 10/28/21 Mariana Monique MD [address] [place] [address] Referring Physician Internal Medicine 01/17/20 documented as of this encounter
--- OUTSIDE RECORDS SUMMARY | 2024-05-10 20:21 | XMS_ITS | Encounter Summary ---
Author Organization [facility] Healthcare Address [address] [place] [address] Care Team Providers Care Scout Leaser Name Role Phone Jann Burrows MD Primary Care Provider [phone] Mariana Monique MD Unavailable [phone] Reason for Referral * Consultation (Routine) - Closed Specialty Diagnoses / Procedures Referred By Contevans t Referred To Contact Sleep Medicine Diagnoses Mood disorder (HCC) Sleep disturbance Abiola Villegas NP [facility] [address] [place] [address] Phone: tel: fax: [facility] of [address] [place] [address] Phone: tel: Referral ID Status Reason Start Date Expiration Date V isits Requested Visits Authorized [id number] Closed Specialty Services Required 06/19/2021 07/19/2022 1 1 Question Answer Please select the performing region: [facility] [[id number]] Please select the performing department: [facility] RES [facility] NEUROLOGY [[id number]] # of visits: 1 TY SPECIALIST Reason for Visit * Reason Comments Post Hospital Visit Pt went to ER at the beginning of Jun for nausea & vomiting with hyperglycemia. Encounter Details Date Type Department Care Team (Late st Contact Info) Description 06/19/2021 2:30 PM REALTY SPECIALIST Office Visit [facility] Primary Care Medicine Clinic [address] [facility] [address] [place] [address] Evangelina Patel MD [address] [facility] [phone] [place] [address] Abiola Villegas NP [facility] [address] [place] [address] Type 2 diabetes mellitus without complication, with long-term current use of insulin (CMS/HCC) ([facility]) (Primary Dx); Essential hypertension; Mood disorder (CMS/HCC) ([facility]); Sleep disturbance Discharge Disposition: Discharge to home or self care Social History Tobacco Use Types Packs/Day Years Used Date Smoking Tobacco: Never Smokeless Tobacco: Former Chew Quit: 01/13/2019 Alcohol Use Standard Drinks/Week Comments Not Currently 0 (1 standard drink = 0.6 oz pur e alcohol) Sex and Gender Information Value Date Recorded Sex Assigned at Not on file Legal Sex Male 5:01 AM REALTY SPECIALIST Gender Identity Male 12/18/2017 12:38 PM CDT Sexual Orientation Not on file 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 Not on file Not on file documented as of this encounter Last Filed Vital Signs Vital Sign Reading Time Taken Comments Blood Pressure 140/83 06/19/2021 3:21 PM REALTY SPECIALIST Pulse 98 06/19/2021 2:39 PM REALTY SPECIALIST Temperature 37.1 ??C (98.7 ??F) 06/19/2021 2:39 PM CS T Respiratory Rate 20 06/19/2021 2:39 PM REALTY SPECIALIST Oxygen Saturation 98% 06/19/2021 2:39 PM REALTY SPECIALIST Inhaled Oxygen Concentration - - Weight 200.8 kg (442 lb 11.2 oz) 06/19/2021 2:39 PM REALTY SPECIALIST Height 203.2 cm (6' 8 ) 06/19/2021 2:39 PM REALTY SPECIALIST Body Mass Index 48.63 06/19/2021 2:39 PM REALTY SPECIALIST documented in this encounter Ordered Prescriptions Prescription [...] this encounter Progress Notes * Abiola Villegas, SCRIPT EDITOR - 06/19/2021 2:30 PM CST PRIMARY CARE [...] was discontinued by Dr. Irasema CROWE his Locomotive Boilermaker. He has picked up refills of all [...] Not on file Occupational History ??? 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 Smoking status: Never Smoker [...] tablet DMT2 SMBG 180-300. Have messaged Maira [facility] Exhaust Emissions Automotive Technician for [employer] equipment through [employer]. Will schedule follow up with Dr. Irasema CROWE Locomotive Boilermaker. Continues Humulin 150 units tid with meals [...] PCP. Abiola Villegas NP 06/19/21 4:35 PM TY SPECIALIST documented in this encounter Plan of Treatment Scheduled Referrals Name Type Priority Associated Diagnoses Orde r Schedule Ambulatory referral to Sleep Medicine Outpatient Referral Routine Mood disorder ([facility]) ([facility]) Sleep disturbance Expected: 07/03/2021 (Approximate), Expires: 06/19/2022 documented as of this encounter Visit Diagnoses Diagnosis Type 2 diabetes mellitus without complication, with long-term current use of insulin ([facility]) ([facility])- Primary Essential hypertension Unspecified essential hypertension Mood disorder ([facility]) Unspecified episodic mood disorder Sleep disturbance Unspecified [...] documented as of this encounter Care Teams Scout Leaser Relationship Specialty Start Date End Date Jann Burrows MD [address] [place] [address] PCP - General Hematology 03/13/19 10/28/21 Mariana Monique MD [address] [place] [address] Referring Physician Internal Medicine 01/17/20 documented as of this encounter
--- OUTSIDE RECORDS SUMMARY | 2024-05-10 20:21 | XMS_ITS | Encounter Summary ---
Author Organization [facility] Healthcare Address [address] [place] [address] Care Team Providers Care Sales Data Analyst Name Role Phone Jann Brurows MD Primary Care Provider [phone] Reason for Visit * Reason Onset Date Comments Vomiting Diarrhea 01/14/2020 Encounter Details Date Type Department Care Team (Late st Contact Info) Description 01/14/2020 Nurse Triage [facility] Specialty Services [address] [place] [id number] Mendel Syed, RN Social History Tobacco Use Types Packs/Day Years Used Date Smoking Tobacco: Never Smokeless Tobacco: Former Chew Quit: 01/13/2019 Alcohol Use Standard Drinks/Week Comments Not Currently 0 (1 standard drink = 0.6 oz pur e alcohol) Sex and Gender Information Value Date Recorded Sex Assigned at Not on file Legal Sex Male 5:01 AM SYSTEMS TESTING LABORATORY TECHNICIAN Gender Identity Male 12/18/2017 12:38 PM CDT Sexual Orientation Not on file 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 He said he's still vomiting, diarrhea And coughing. He had COVID test done on 01/10 at [facility] in [place]. He hasn't received results yet. Please call. [...] on filedocumented in this encounter Care Teams Sales Data Analyst Relationship Specialty Start Date End Date Jann Burrows MD [address] [place] [address] PCP - General Hematology 03/13/19 10/28/21 documented as of this encounter
--- OUTSIDE RECORDS SUMMARY | 2024-05-10 20:21 | XMS_ITS | Encounter Summary ---
Author Organization [facility] Healthcare Address [address] [place] [address] Care Team Providers Care Bottom Cager Name Role Phone Jann Burrows MD Primary Care Provider [phone] Mariana Monique MD Unavailable [phone] Reason for Visit * Reason Onset Date Comments Follow-up 2019 Encounter Details Date Type Department Care Team (Late st Contact Info) Description 2019 Telephone [facility] Primary Care Medicine Clinic [address] [facility] [address] [place] [address] Jann Burrows MD [address] [facility] [address] [place] [address] Follow-up Social History Tobacco Use Types Packs/Day Years Used Date Smoking Tobacco: Every Day Cigarettes Smokeless Tobacco: Current Chew Alcohol Use Standard Drinks/Week Comments Yes 24 (1 standard drink = 0.6 oz pu re alcohol) CAGE negative. Case per week. 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 Please follow up. Patient contact: [phone] Jose [phone] * Telephone Encounter - Smith Rhoades MD [...] and follow up with patient. Patient contact: [phone] Jose Campoverde [phone] documented in this encounter Plan of Treatment Not on file documented as of this encounter Visit Diagnoses Not on filedocumented in this encounter Additional Health Concerns Infection Onset Date Last Indicated Resolved Time COVID: Suspected 01/14/2020 01/14/2020 01/14/2020 6:21 PM CDT COVID19 01/15/2020 01/15/2020 01/31/2020 3:06 AM CDT documented as of this encounter Care Teams Bottom Cager Relationship Specialty Start Date End Date Jann Burrows MD [address] [place] [address] PCP - General Hematology 03/13/19 10/28/21 Mariana Monique MD [address] [place] [address] Referring Physician Internal Medicine 01/17/20 documented as of this encounter
--- OUTSIDE RECORDS SUMMARY | 2024-05-10 20:21 | XMS_ITS | Encounter Summary ---
Author Organization [facility] Healthcare Address [address] [place] [address] Care Team Providers Care Emissions Technician Name Role Phone Jann Burrows MD Primary Care Provider [phone] Mariana Monique MD Unavailable [phone] Encounter Details Date Type Department Care Team (Late st Contact Info) Description 06/07/2020 Orders Only [facility] Primary Care Medicine Clinic [address] [facility] [address] [place] [address] Jann Burrows MD [address] [facility] [address] [place] [address] Social History Tobacco Use Types Packs/Day Years Used Date Smoking Tobacco: Never Smokeless Tobacco: Former Chew Quit: 01/13/2019 Alcohol Use Standard Drinks/Week Comments Not Currently 0 (1 standard drink = 0.6 oz pur e alcohol) Sex and Gender Information Value Date Recorded Sex Assigned at Not on file Legal Sex Male 5:01 AM MANAGER SOLAR Gender Identity Male 12/18/2017 12:38 PM CDT Sexual Orientation Not on file 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 Not on file [...] 06/07/2020 3:56 PM CST Refilled Pen needles GER SOLAR documented in this encounter Plan of Treatment Not on file documented as of this encounter Visit Diagnoses Not on filedocumented in this encounter Discontinued Medications Medication Sig Discontinue Reason Start Date End Da te pen needle, diabetic (BD Ultra-Fine Ibeth Pen Needle) 32 gauge x 5/32 needle USE DIRECTED 3 TIMES A DAY Reorder 06/01/2020 06/07/2020 documented as of this encounter Care Teams Emissions Technician Relationship Specialty Start Date End Date Jann Burrows MD [address] [place] [address] PCP - General Hematology 03/13/19 10/28/21 Mariana Monique MD [address] [place] [address] Referring Physician Internal Medicine 01/17/20 documented as of this encounter
--- OUTSIDE RECORDS SUMMARY | 2024-05-10 20:21 | XMS_ITS | Encounter Summary ---
Author Organization [facility] Healthcare Address [address] [place] [address] Care Team Providers Care Billing Clinician Name Role Phone Jann Burrows MD Primary Care Provider [phone] Mariana Monique MD Unavailable [phone] Encounter Details Date Type Department Care Team (Late st Contact Info) Description 06/09/2021 Telephone [facility] Primary Care Medicine Clinic [address] [place] [address] Jann Burrows MD [address] [facility] [address] [place] [address] Social History Tobacco Use Types Packs/Day Years Used Date Smoking Tobacco: Never Smokeless Tobacco: Former Chew Quit: 01/13/2019 Alcohol Use Standard Drinks/Week Comments Not Currently 0 (1 standard drink = 0.6 oz pur e alcohol) Sex and Gender Information Value Date Recorded Sex Assigned at Not on file Legal Sex Male 5:01 AM RECREATION ACTIVITIES COORDINATOR Gender Identity Male 12/18/2017 12:38 PM CDT Sexual Orientation Not on file 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 Patient is scheduled for 06-19-21. Jc Campoverde [phone] EATION ACTIVITIES COORDINATOR * Telephone Encounter - Sallie Pimentel - 06/09/2021 2:31 PM CST ----- Message from Anna Low RN sent at 06/07/2021 9:20 AM RECREATION ACTIVITIES COORDINATOR ----- Regarding: hospital follow up request Patient needs hospital follow up appointment within 4-5 days. Plan for discharge tomorrow. Thank you, Anna Low RN, EATION ACTIVITIES COORDINATOR documented in this encounter Plan of Treatment Not on file documented as of this encounter Visit Diagnoses Not on filedocumented in this encounter Care Teams Billing Clinician Relationship Specialty Start Date End Date Jann Burrows MD [address] [place] [address] PCP - General Hematology 03/13/19 10/28/21 Mariana Monique MD [address] [place], [place] [address] Referring Physician Internal Medicine 01/17/20 documented as of this encounter
--- OUTSIDE RECORDS SUMMARY | 2024-05-10 20:21 | XMS_ITS | Encounter Summary ---
Author Organization [facility] Healthcare Address [address] [place] [address] Care Team Providers Care Swing Ride Operator Name Role Phone Jann Burrows MD Primary Care Provider [phone] Encounter Details Date Type Department Care Team (Late st Contact Info) Description 01/14/2020 Documentation [facility] Primary Care Medicine Clinic [address] [facility] Health [address] [place] [address] Zaire Dao MD [address] 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 [address] [place] [address] PCP - General Hematology 03/13/19 10/28/21 documented as of this encounter
--- OUTSIDE RECORDS SUMMARY | 2024-05-10 20:21 | XMS_ITS | Encounter Summary ---
Author Organization [facility] Address [address] [place] [address] Care Team Providers Care Technical Support Specialist Name Role Phone Jann Burrows MD Primary Care Provider [phone] Mariana Monique MD Unavailable [phone] Reason for Visit * Reason Comments Hyperglycemia Encounter Details Date Type Department Care Team (Late st Contact Info) Description 06/06/2021 11:52 AM MEDICAL CODING AUDITOR - 06/07/2021 3:23 PM MEDICAL CODING AUDITOR Emergency [facility] [address] [place] [address] Charles Andrew MD [address] [place] [address] Magno Nuñez MD [address] [place] [address] Enrique Baker MD [address] [facility] [address] [place] [address] Ketoacidosis due to diabetes (CMS/HCC) (HCC) (Primary [...] on file Legal Sex Male 5:01 AM MEDICAL CODING AUDITOR Gender Identity Male 12/18/2017 12:38 PM CDT Sexual Orientation Not on file 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 Not on file Not on file Not on file documented as of this encounter Last Filed Vital Signs Vital Sign Reading Time Taken Comments Blood Pressure 129/60 06/07/2021 2:45 PM MEDICAL CODING AUDITOR Pulse 87 06/07/2021 2:45 PM MEDICAL CODING AUDITOR Temperature 36.7 ??C (98.06 ??F) 06/07/2021 2:[address] Respiratory Rate 16 06/07/2021 2:45 PM MEDICAL CODING AUDITOR Oxygen Saturation 97% 06/07/2021 2:45 PM MEDICAL CODING AUDITOR Inhaled Oxygen Concentration - - Weight 188.2 kg (415 lb) 06/06/2021 9:45 PM MEDICAL CODING AUDITOR Height 207.3 cm (6' 9.6 ) 06/06/2021 9:45 PM MEDICAL CODING AUDITOR Body Mass Index 43.82 06/06/2021 9:45 PM MEDICAL CODING AUDITOR documented in this encounter Discharge Diagnoses Diagnosis Type 2 diabetes mellitus with ketoacidosis without coma (HCC) - TYPE 2 DIABETES MELLITUS WITH KETOACIDOSIS WITHOUT COMA Essential (primary) hypertension - ESSENTIAL (PRIMARY) HYPERTENSION Unspecified essential hypertension Metabolic syndrome - METABOLIC SYNDROME Dysmetabolic Syndrome X Depression, unspecified - DEPRESSION, UNSPECIFIED Anxiety disorder, unspecified - ANXIETY DISORDER, UNSPECIFIED 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 (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) - CLINICAL DATA SPECIALIST (CURRENT) USE OF INSULIN Other group home (current) drug therapy - OTHER SKILLED NURSING (CURRENT) DRUG THERAPY Personal history of COVID-19 - PERSONAL HISTORY OF COVID-19 documented in this encounter Discharge Summaries * Arabella Munoz NP - 06/07/2021 2:34 PM CST Inpatient Discharge Summary BRIEF OVERVIEW Admitting Provider: Magno Nuñez MD Discharge Provider: Enrique Baker MD Primary Care Physician at Discharge: Jann Burrows MD [phone] Admission Date: 06/06/2021 Discharge Date: 06/07/2021 Admission Location: [facility] Problems/Diagnoses: Active Problems: Essential hypertension Diabetic ketoacidosis [...] He will follow up tomorrow with his manufacturing sales representative as previously scheduled. Active Issues Requiring Follow-up: [...] MSK: normal bulk and tone Neuro: A&Ox4, Avionics System Engineer 3-12 grossly intact, no focal neuro deficit [...] PM Peter Styles Jr., MD EML [facility] [address] [place] [address] EML Cosigned by Enrique Baker MD at 06/07/2021 3:41 PM MEDICAL CODING AUDITOR CAL CODING AUDITOR CAL CODING AUDITOR documented in this encounter Discharge Instructions * Discharge Instructions* Genny Sinclair RN - 06/07/2021 3:11 PM MEDICAL CODING AUDITOR Images from the original note were not [...] ask them during your visits. ?? 2017 [employer] Information is for End User's use only and may not be sold, redistributed or otherwise used for commercial purposes. All illustrations and images included in CareNotes?? are the copyrighted property of [employer] or [employer]. The above information is an educational/development assistant only. It is not intended as medical advice for individual conditions or treatments. Talk to your doctor, nurse or pharmacist before following any medical regimen to see if it is safe and effective for you. CAL CODING AUDITOR documented in this encounter Medications at Time [...] in flowsheets. Plan of care discussed with patient/artist's representative, including as it relates to Active Problems: Essential hypertension Diabetic ketoacidosis without coma associated with type 2 diabetes mellitus (CMS/HCC) (HCC) Mood disorder (CMS/HCC) (HCC) Patient . Clinical goals for the shifEducation provided includes cont to monitor blood sugars and follow up with appt with endocrinology . Patient and/or artist's representative . Will continue to monitor. CAL CODING AUDITOR * Jenifer Tellez RD - 06/07/2021 2:37 [...] Carbohydrate Diet effective now Question Answer Comment ([facility]) Diet type Restricted Diabetic: Consistent Carbohydrate 06/07/21 0144 HgbA1c - 9.9 Glucose 306 Medication hx today Lantus SSI Assessment / Impression Interviewed pt who states his weight loss has been intentional eating mostly protein and vegetables Educated pt on general healthy diet and provided educational materials Will follow per nutrition standards of care CAL CODING AUDITOR * Arabella Munoz NP - 06/07/2021 12:13 PM CST Daily Progress Note Division of Hospital Medicine Name: Geraldo Velez Today: June 07, 2021 : 1995 Age: 25 y.o. male Admit: 06/06/2021 Bed: [id number] Subjective Chief complaint: DKA Interval History: Pt [...] Enrique Baker MD at 06/07/2021 3:40 PM MEDICAL CODING AUDITOR CAL CODING AUDITOR CAL CODING AUDITOR Associated attestation - Enrique Baker MD - 06/07/2021 3:40 PM MEDICAL CODING AUDITOR I have seen and examined the patient [...] Insurance Coverage: BCBS Prescription Coverage: yes Pharmacy: [facility] Primary Care Provider: verified [facility]. Follow up appt requested in [facility]. Jann Burrows MD Prior to Admission: Primary Caregiver: Self Support System: Parent Support system contact info (name, phone, availablity): Ivy Velez [phone] Home Care Services: No Durable Medical Equipment: [...] Patient lives in apartment with tyler. Works part time. Denies DME or home health prior to [...] Collaboration with patient, MD, direct care nurse, Director Recreation, Nurse Coordinator and other members of the health care team to assure needed interventions completed. 2. Return patient to optimal level of self-care post discharge. 3. Regional Forester will follow for Discharge Planning - interventions [...] from 4:31p.m. - 7:59a.m., please call the estate conservator [phone]. For weekend/holiday needs from 8:00a.m. - 4:30p.m., please call the Weekend Regional Forester . CAL CODING AUDITOR documented in this encounter H&P Notes * Sasha Rivas MD - 06/07/2021 1:08 AM CST History and Physical Division of [facility] Medicine Name: Geraldo Velez Today: [...] MSK: normal bulk and tone Neuro: A&Ox4, Avionics System Engineer 3-12 grossly intact, no focal neuro deficit [...] coma associated with type 2 diabetes mellitus ([facility]) ([facility]) Assessment & Plan Patient presented with [...] for difficult to control T2DM Mood disorder (CMS/[facility]) ([facility]) Assessment & Plan Continue home duloxetine Essential hypertension Assessment & Plan Patient reports taking coreg 25 mg bid and lisinopril 20 mg at home. However recent chart review show lisinopril 40 was prescribed but has . - will continue coreg 25 bid and lisinopril 20 mg for now CAL CODING AUDITOR documented in this encounter Consult Notes * Flor Ontiveros MD - 06/07/2021 8:31 AM CSTAssociated Order(s): CONSULT TO ENDOCRINOLOGY DIABETES Endocrinology / Diabetes Consult Note Patient: Geraldo Velez, 25 y.o. male (: 1995) Room: [place] [id number] ( ) LOS: 0 Reason for Consult: Type 2 Diabetes (Requesting Provider: Enrique Baker,*) HPI Geraldo eVlez is a 25 y.o. male who presents [...] labs, imaging, and diagnostics independently reviewed in [facility] and commented on below. Allergies: Patient has [...] 16 (L) 09/06/2017 CPEPTIDE 11.2 (H) 12/31/2019 [id number] 0.00 03/04/2019 Assessment & Plan Geraldo Velez [...] Styles Jr., MD at 06/07/2021 1:31 PM MEDICAL CODING AUDITOR CAL CODING AUDITOR CAL CODING AUDITOR Associated attestation - Peter Styles Jr., MD - 06/07/2021 1:31 PM MEDICAL CODING AUDITOR I have seen and examined the patient [...] review the protocol and diet orders then. CAL CODING AUDITOR documented in this encounter ED Notes * [...] doses or mix the month. Follows with [facility] endocrinology. Patient History: Patient Active Problem List Diagnosis Date Noted ??? Sleep disturbance 12/25/2019 ??? Mood disorder (CMS/HCC) ([facility]) 12/25/2019 ??? Acanthosis nigricans 03/19/2019 ??? Type 2 diabetes mellitus without complication, with long-term current use of insulin (CMS/HCC) ([facility]) 03/19/2019 ??? Fatty liver 10/13/2017 ??? Morbid obesity with BMI of 50.0-59.9, adult (CMS/HCC) ([facility]) 07/10/2017 ??? Asymmetric septal hypertrophy (CMS/HCC) ([facility]) 02/10/2016 ??? Essential hypertension 03/16/2010 Past Medical History: Diagnosis Date ??? Anxiety ??? Depression ??? Diabetes mellitus (HCC) ??? Disordered sleep 10/13/2017 ??? HTN (hypertension) ??? Metabolic syndrome ??? Morbid obesity with BMI of 50.0-59.9, adult (CMS/HCC) ([facility]) 07/10/2017 ??? Pneumonia due to COVID-19 [...] Isidro Orosco MD Ketoacidosis due to diabetes ([facility]) ([facility]) Hyperglycemia due to diabetes mellitus ([facility]) ([facility]) Glenn Kerr DO 06/06/21 1300 Magno Nuñez MD 06/06/212126 CAL CODING AUDITOR CAL CODING AUDITOR * Lowell Pollock RN - 06/06/2021 11:48 AM CST States elevated BS x 1 week > 400 Went to PCP and sent to ED for eval States N/V CAL CODING AUDITOR documented in this encounter Miscellaneous Notes * Plan of Care - Genny Sinclair RN - 06/07/2021 3:03 PM CST Goals: Clinical Goals for the Shift: admit &orient pt to the unit,complete admission orders Summary: Problem: Health Behavior: Goal: Understanding of discharge needs will improve Outcome: Progressing CAL CODING AUDITOR * Assessment & Plan Note - Sasha Rivas MD - 06/07/2021 1:17 AM MEDICAL CODING AUDITOR Associated Problem(s): Essential hypertension Patient reports taking coreg 25 mg bid and lisinopril 20 mg at home. However recent chart review show lisinopril 40 was prescribed but has . - Continue coreg 25 bid and lisinopril 20 mg for now CAL CODING AUDITOR CAL CODING AUDITOR * Assessment & Plan Note - Sasha Rivas MD - 06/07/2021 1:16 AM MEDICAL CODING AUDITOR Associated Problem(s): Mood disorder (CMS/HCC) (HCC) Continue home duloxetine CAL CODING AUDITOR * Assessment & Plan Note - Sasha Rivas MD - 06/07/2021 1:14 AM MEDICAL CODING AUDITOR Associated Problem(s): Diabetic ketoacidosis without coma associated [...] endocrine consult for difficult to control T2DM CAL CODING AUDITOR * Plan of Care - Erinn Oleary RN - 06/06/2021 7:23 PM CST Clinical status reevaluated by ED CM. Pt remains in ED as Boarder. MD order is for OBS level of care, which currently still appears to be appropriate. CAL CODING AUDITOR * ED Re-evaluation Note - Isidro Orosco MD - 06/06/2021 2:13 PM MEDICAL CODING AUDITOR ED Re-evaluation TRANSITION OF CARE: I, Isidro [...] with clear lungs and COVID-19 negative Pending: [facility] Dispo: 3500 admission ED Course as of [...] Rees, Ryan Embree, MD Resident 06/06/21 1414 CAL CODING AUDITOR * ED Procedure Note - Charles Andrew [...] medical staff. Charles Andrew MD 06/06/21 1211 CAL CODING AUDITOR * ED Pre-Arrival Note - Eleno Castro RN - 06/06/2021 11:00 AM MEDICAL CODING AUDITOR Pre-Arrival Note AIR TRAFFIC SYSTEMS TECHNICIAN Josefayahir Valdivia sending patient from [facility] for diabetes management. Pt has hx of DM and is followed at [facility]. Pt presented today to urgent care with BG of 472. Coming by private vehicle. Eleno Castro RN CAL CODING AUDITOR documented in this encounter Plan of Treatment Not on file documented as of this encounter Procedures Procedure Name Priority Date/Time Associated Diagnosis Comments POCT GLUCOSE DEVICE Routine 06/07/2021 1 2:00 PM MEDICAL CODING AUDITOR EGFR STAT 06/07/2021 11:31 AM MEDICAL CODING AUDITOR BASIC METABOLIC PANEL STAT 06/07/2021 11:31 AM MEDICAL CODING AUDITOR POCT GLUCOSE DEVICE Routine 06/07/2021 8 :18 AM MEDICAL CODING AUDITOR POCT GLUCOSE DEVICE Routine 06/07/2021 4 :03 AM MEDICAL CODING AUDITOR POCT GLUCOSE DEVICE Routine 06/07/2021 3 :56 AM MEDICAL CODING AUDITOR POCT GLUCOSE DEVICE Routine 06/07/2021 1 :41 AM MEDICAL CODING AUDITOR POCT GLUCOSE DEVICE Routine 06/06/2021 1 0:52 PM MEDICAL CODING AUDITOR POCT GLUCOSE DEVICE Routine 06/06/2021 8 :45 PM MEDICAL CODING AUDITOR EGFR Timed 06/06/2021 8:41 PM MEDICAL CODING AUDITOR BASIC METABOLIC PANEL Timed 06/06/2021 8:41 PM MEDICAL CODING AUDITOR POCT GLUCOSE DEVICE Routine 06/06/2021 6 :18 PM MEDICAL CODING AUDITOR POCT GLUCOSE DEVICE Routine 06/06/2021 4 :45 PM MEDICAL CODING AUDITOR POTASSIUM, WHOLE BLOOD STAT 06/06/2021 4:16 PM MEDICAL CODING AUDITOR EGFR STAT 06/06/2021 4:16 PM MEDICAL CODING AUDITOR DIFFERENTIAL AUTO STAT 06/06/2021 4:1 6 PM MEDICAL CODING AUDITOR CBC WITH AUTO DIFFERENTIAL STAT 06/06/2021 4:16 PM MEDICAL CODING AUDITOR MAGNESIUM STAT 06/06/2021 4:16 PM MEDICAL CODING AUDITOR LIPASE STAT 06/06/2021 4:16 PM MEDICAL CODING AUDITOR HEMOGLOBIN A1C STAT 06/06/2021 4:16 PM MEDICAL CODING AUDITOR COMPREHENSIVE METABOLIC PANEL STAT 06/06/2021 4:16 PM MEDICAL CODING AUDITOR POCT GLUCOSE DEVICE Routine 06/06/2021 2 :59 PM MEDICAL CODING AUDITOR EGFR STAT 06/06/2021 2:00 PM MEDICAL CODING AUDITOR DIFFERENTIAL AUTO STAT 06/06/2021 2:0 0 PM MEDICAL CODING AUDITOR URINALYSIS AND REFLEX TO MICROSCOPIC STAT 06/06/2021 2:00 PM MEDICAL CODING AUDITOR CBC WITH AUTO DIFFERENTIAL STAT 06/06/2021 2:00 PM MEDICAL CODING AUDITOR URINALYSIS, MICROSCOPIC ONLY STAT 06/06/2021 2:00 PM MEDICAL CODING AUDITOR MAGNESIUM STAT 06/06/2021 2:00 PM MEDICAL CODING AUDITOR LIPASE STAT 06/06/2021 2:00 PM MEDICAL CODING AUDITOR COMPREHENSIVE METABOLIC PANEL STAT 06/06/2021 2:00 PM MEDICAL CODING AUDITOR POCT GLUCOSE DEVICE Routine 06/06/2021 1 :58 PM MEDICAL CODING AUDITOR POCT GLUCOSE DEVICE Routine 06/06/2021 1 :16 PM MEDICAL CODING AUDITOR INFLUENZA A/B, RSV, AND COVID-19 PCR Routine 06/06/2021 12:24 PM MEDICAL CODING AUDITOR DIFFERENTIAL AUTO STAT 06/06/2021 12: 24 PM MEDICAL CODING AUDITOR CBC WITH AUTO DIFFERENTIAL STAT 06/06/2021 12:24 PM MEDICAL CODING AUDITOR BLOOD GAS, VENOUS STAT 06/06/2021 12: 24 PM MEDICAL CODING AUDITOR XR CHEST 1 VIEW ED Urgent/IP Urgent 06/06/2021 12:17 PM MEDICAL CODING AUDITOR NE CRITICAL CARE ILL/INJURED PATIENT INIT 30-74 MIN Routine 06/06/2021 12:10 PM MEDICAL CODING AUDITOR POCT KETONE, FINGERSTICK Routine 06/06/2021 11:52 AM MEDICAL CODING AUDITOR POCT GLUCOSE DEVICE Routine 06/06/2021 1 1:50 AM MEDICAL CODING AUDITOR documented in this encounter Results * (ABNORMAL) POCT glucose (06/07/2021 12:00 PM MEDICAL CODING AUDITOR) Glucose, POC 303(H) 70 - 199 mg/dL [facility] Blood 06/07/2021 12:0 0 PM MEDICAL CODING AUDITOR 06/07/2021 12:00 PM MEDICAL CODING AUDITOR us Enrique Baker MD LAB POCT ORDERABLES - DEVICE Final Result Performing Organization Address City/State/[facility] Co de Phone Number [facility] Department [place] [address] * (ABNORMAL) eGFR (06/07/2021 11:31 AM MEDICAL CODING AUDITOR) eGFR >90(H) 90 - 130 mL/min/1. 73 m2 [facility] Comment: Interpretive Data Reference Interval Normal [...] reviewed 2021. Blood 06/07/2021 11:3 1 AM MEDICAL CODING AUDITOR 06/07/2021 11:41 AM MEDICAL CODING AUDITOR us Arabella Munoz NP LAB BLOOD ORDERABLES Melina castorena Result [facility] Department [place] [address] * (ABNORMAL) Basic metabolic panel (06/07/2021 11:31 AM MEDICAL CODING AUDITOR) Sodium 131(L) 135 - 145 mmol/L [facility] Potassium, pl See Comment 3.3 - 4.9 mmol/L [facility] Comment:Credited; Hemolyzed Specimen Chloride 97 97 - 110 mmol/L [facility] CO2 23 22 - 32 mmol/L [facility] Anion gap 11 2 - 15 mmol/L [facility] BUN 11 8 - 25 mg/dL [facility] Creatinine 0.66(L) 0.80 - 1.30 mg/dL [facility] Glucose 306(H) 70 - 199 mg/dL [facility] Comment: Interpretive Data Fasting glucose >/= 126 [...] 2017. Calcium 8.8 8.5 - 10.3 mg/dL [facility] Blood 06/07/2021 11:3 1 AM MEDICAL CODING AUDITOR 06/07/2021 11:41 AM MEDICAL CODING AUDITOR us Arabella Munoz AIR TRAFFIC SYSTEMS TECHNICIAN LAB BLOOD ORDERABLES Melina l Result Performing Organization Address [facility] Co de Phone Number [facility] [place] [address] * (ABNORMAL) POCT glucose (06/07/2021 8:18 AM MEDICAL CODING AUDITOR) Glucose, POC 291(H) 70 - 199 mg/dL [facility] Blood 06/07/2021 8:18 AM MEDICAL CODING AUDITOR 06/07/2021 8:18 AM MEDICAL CODING AUDITOR Enrique Baker MD LAB POCT ORDERABLES - DEVICE Final Result Performing Organization Address [facility] de Phone Number [facility] [place] [address] * (ABNORMAL) POCT glucose (06/07/2021 4:03 AM MEDICAL CODING AUDITOR) Glucose, POC 283(H) 70 - 199 mg/dL [facility] Blood 06/07/2021 4:03 AM MEDICAL CODING AUDITOR 06/07/2021 4:03 AM MEDICAL CODING AUDITOR us Magno Nuñez MD LAB POCT ORDERABLES - DEVICE F inal Result Performing Organization Address [facility] Co de Phone Number [place] [address] * (ABNORMAL) POCT glucose (06/07/2021 3:56 AM MEDICAL CODING AUDITOR) Glucose, POC 374(H) 70 - 199 mg/dL [facility] Blood 06/07/2021 3:56 AM MEDICAL CODING AUDITOR 06/07/2021 3:56 AM MEDICAL CODING AUDITOR us Magno Nuñez MD LAB POCT ORDERABLES - DEVICE F inal Result Performing Organization Address [facility] [place] [address] * (ABNORMAL) POCT glucose (06/07/2021 1:41 AM MEDICAL CODING AUDITOR) Glucose, POC 212(H) 70 - 199 mg/dL [facility] Blood 06/07/2021 1:41 AM MEDICAL CODING AUDITOR 06/07/2021 1:41 AM MEDICAL CODING AUDITOR us Magno Nuñez MD LAB POCT ORDERABLES - DEVICE F inal Result Performing Organization Address [facility] [place] [address] * (ABNORMAL) POCT glucose (06/06/2021 10:52 PM MEDICAL CODING AUDITOR) Glucose, POC 208(H) 70 - 199 mg/dL [facility] Blood 06/06/2021 10:5 2 PM MEDICAL CODING AUDITOR 06/06/2021 10:52 PM MEDICAL CODING AUDITOR us Magno Nuñez MD LAB POCT ORDERABLES - DEVICE F inal Result Performing Organization Address [facility] [place] [address] * POCT glucose (06/06/2021 8:45 PM MEDICAL CODING AUDITOR) Glucose, POC 169 70 - 199 mg/dL [facility] Blood 06/06/2021 8:45 PM MEDICAL CODING AUDITOR 06/06/2021 8:45 PM MEDICAL CODING AUDITOR us Magno Nuñez MD LAB POCT ORDERABLES - DEVICE F inal Result Performing Organization Address [facility] Co de Phone Number [facility] Department [place] [address] * (ABNORMAL) eGFR (06/06/2021 8:41 PM MEDICAL CODING AUDITOR) eGFR >90(H) 90 - 130 mL/min/1. 73 m2 [facility] Comment: Interpretive Data Reference Interval Normal ?>/= [...] last reviewed 2021. Blood 06/06/2021 8:41 PM MEDICAL CODING AUDITOR 06/06/2021 9:29 PM MEDICAL CODING AUDITOR us Charles Andrew MD LAB BLOOD ORDERABLES Final Re sult Performing Organization Address [facility] Co de Phone Number [facility] Department [place] [address] * (ABNORMAL) Basic metabolic panel (06/06/2021 8:41 PM MEDICAL CODING AUDITOR) Sodium 137 135 - 145 mmol/L [facility] Comment:After removal of alie ss lipemia. Potassium, pl See Comment 3.3 - 4.9 mmol/L [facility] Comment:Credited; Hemolyzed Specimen Chloride 101 97 - 110 mmol/L [facility] Comment:After removal of alie ss lipemia. CO2 20(L) 22 - 32 mmol/L [facility] Comment:Hemolyzed; result ma y be falsely decreased Anion gap 16(H) 2 - 15 mmol/L [facility] BUN 13 8 - 25 mg/dL [facility] Creatinine 0.41(L) 0.80 - 1.30 mg/dL [facility] Glucose 145 70 - 199 mg/dL [facility] Comment: Interpretive Data Fasting glucose >/= 126 [...] 2017. Calcium 9.0 8.5 - 10.3 mg/dL [facility] Comment:After removal of alie ss lipemia. Blood 06/06/2021 8:41 PM MEDICAL CODING AUDITOR 06/06/2021 9:29 PM MEDICAL CODING AUDITOR Sasha Rivas MD LAB BLOOD ORDERABLES Fin al Result [facility] [place] [address] * (ABNORMAL) POCT glucose (06/06/2021 6:18 PM MEDICAL CODING AUDITOR) Glucose, POC 237(H) 70 - 199 mg/dL [facility] Blood 06/06/2021 6:18 PM MEDICAL CODING AUDITOR 06/06/2021 6:18 PM MEDICAL CODING AUDITOR Charles Andrew MD LAB POCT ORDERABLES - DEVICE Final Result Performing Organization Address [facility] Co de Phone Number [facility] [place] [address] * (ABNORMAL) POCT glucose (06/06/2021 4:45 PM MEDICAL CODING AUDITOR) Glucose, POC 422(H) 70 - 199 mg/dL [facility] Blood 06/06/2021 4:45 PM MEDICAL CODING AUDITOR 06/06/2021 4:45 PM MEDICAL CODING AUDITOR Charles Andrew MD LAB POCT ORDERABLES - DEVICE Final Result Performing Organization Address [facility] [place] [address] * (ABNORMAL) Hemoglobin A1c (06/06/2021 4:16 PM MEDICAL CODING AUDITOR) Hgb A1C 9.9(H) 4.0 - 5.6 % [facility] Estimated Average Glucose 237 mg/dL [facility] Comment: The ADA recommends reporting an estimated Average Glucose (eAG) with all Hemoglobin A1c results using the equation derived from a study of 507 normal and diabetic adults. ??Minority populations were underrepresented and children were not included. ?? (Diabetes Care 2020; 43(S1): S66-S76). ??The eAG is not equivalent to a fasting glucose. Blood 06/06/2021 4:16 PM MEDICAL CODING AUDITOR 06/06/2021 4:25 PM MEDICAL CODING AUDITOR Magno Nuñez MD LAB BLOOD ORDERABLES Final Res ult Performing Organization Address [facility] Co de Phone Number [place] [address] * (ABNORMAL) eGFR (06/06/2021 4:16 PM MEDICAL CODING AUDITOR) eGFR >90(H) 90 - 130 mL/min/1. 73 m2 [facility] Comment: Interpretive Data Reference Interval Normal ?>/= [...] last reviewed 2021. Blood 06/06/2021 4:16 PM MEDICAL CODING AUDITOR 06/06/2021 4:21 PM MEDICAL CODING AUDITOR us Magno Nñuez MD LAB BLOOD ORDERABLES Final Res ult [facility] Department [place] [address] * Differential, auto (06/06/2021 4:16 PM MEDICAL CODING AUDITOR) Pathologist [facility] Neutrophil abs 2.5 1.7 - 6.5 K/cumm [facility] Imm gran abs 0.0 0.0 - 0.1 K/cumm [facility] Lymphocyte abs 1.7 0.8 - 3.3 K/cumm [facility] Monocyte abs 0.3 0.2 - 0.8 K/cumm [facility] Eosinophil abs 0.1 0.0 - 0.5 K/cumm [facility] Basophil abs 0.0 0.0 - 0.1 K/cumm [facility] Neutrophil pct 52.7 % [facility] Comment: Interpretive Data Percent cell count reference ranges are not reported, since discordance with absolute values may lead to misinterpretation of CBC data. Current Interpretive Data was last revised on 2017. Imm gran pct 0.4 % [facility] Comment: Interpretive Data Percent cell count reference ranges are not reported, since discordance with absolute values may lead to misinterpretation of CBC data. Current Interpretive Data was last revised on 2017. Lymphocyte pct 36.4 % [facility] Comment: Interpretive Data Percent cell count reference ranges are not reported, since discordance with absolute values may lead to misinterpretation of CBC data. Current Interpretive Data was last revised on 2017. Monocyte pct 7.2 % [facility] Comment: Interpretive Data Percent cell count reference ranges are not reported, since discordance with absolute values may lead to misinterpretation of CBC data. Current Interpretive Data was last revised on 2017. Eosinophil pct 2.9 % [facility] Comment: Interpretive Data Percent cell count reference ranges are not reported, since discordance with absolute values may lead to misinterpretation of CBC data. Current Interpretive Data was last revised on 2017. Basophil pct 0.4 % [facility] Comment: Interpretive Data Percent cell count reference ranges are not reported, since discordance with absolute values may lead to misinterpretation of CBC data. Current Interpretive Data was last revised on 2017. Blood 06/06/2021 4:16 PM MEDICAL CODING AUDITOR 06/06/2021 4:21 PM MEDICAL CODING AUDITOR us Magno Nuñez MD LAB BLOOD ORDERABLES Final Res ult [facility] [place] [address] * Lipase (06/06/2021 4:16 PM MEDICAL CODING AUDITOR) Lipase 36 10 - 99 Units/L [facility] Comment: Code Blue Specimen After removal of gross lipemia. Blood 06/06/2021 4:16 PM MEDICAL CODING AUDITOR 06/06/2021 4:21 PM MEDICAL CODING AUDITOR us Magno Nuñez MD LAB BLOOD ORDERABLES Final Res ult [facility] Department [place] [address] * CBC with auto differential (06/06/2021 4:16 PM MEDICAL CODING AUDITOR) WBC 4.8 3.8 - 9.9 K/cumm [facility] Comment:Code Blue Specimen Hgb See Comment 13.0 - 17.5 [facility] Comment: Not able to obtain results due to gross Hemolysis / gross Lipemia Removal of results called to Jose PAGE) at 2122 by NVB. Hct See Comment 38.9 - 50.3 [facility] Comment: Not able to obtain results due to gross Hemolysis / gross Lipemia Removal of results called to Jose PAGE) at 2122 by NVB. Plt 290 150 - 400 K/cumm [facility] MPV 10.2 9.1 - 12.3 fL [facility] RBC See Comment 4.30 - 5.80 [facility] Comment: Not able to obtain results due to gross Hemolysis / gross Lipemia Removal of results called to Jose PAGE) at 2122 by MEB. MCV See Comment 81.3 - 96.4 [facility] Comment: Not able to obtain results due to gross Hemolysis / gross Lipemia Removal of results called to Jose PAGE) at 2122 by NVB. MCH See Comment 27.1 - 33.[address] [facility] [facility] Comment: Not able to obtain results due to gross Hemolysis / gross Lipemia Removal of results called to Jose PAGE) at 2122 by NVB. MCHC See Comment 32.3 - 35.7 [facility] Comment: Not able to obtain results due to gross Hemolysis / gross Lipemia Removal of results called to Jose (BRYANNA) at 2122 by NVBrandee. RDW CV 13.1 11.1 - 14.9 % [facility] RDW SD 37.2 35.7 - 48.1 fL [facility] NRBC abs 0.00 0.00 - 0.01 K/cumm [facility] Blood 06/06/2021 4:16 PM MEDICAL CODING AUDITOR 06/06/2021 4:21 PM MEDICAL CODING AUDITOR Magno Nuñez MD LAB BLOOD ORDERABLES Edited Re sult - Final Performing Organization Address [facility]/ZIP Co de Phone Number [facility] [place] [address] * Potassium, whole blood (06/06/2021 4:16 PM MEDICAL CODING AUDITOR) Potassium, bld 3.9 3.3 - 4.9 mmol/L [facility] Comment:Code Blue Specimen Blood 06/06/2021 4:16 PM MEDICAL CODING AUDITOR 06/06/2021 4:21 PM MEDICAL CODING AUDITOR Magno Nuñez MD LAB BLOOD ORDERABLES Final Res ult Performing Organization Address [facility] Co de Phone Number [facility] [place] [address] * Magnesium (06/06/2021 4:16 PM MEDICAL CODING AUDITOR) Magnesium 1.7 1.4 - 2.5 mg/dL [facility] Comment: Code Blue Specimen After removal of gross lipemia. Blood 06/06/2021 4:16 PM MEDICAL CODING AUDITOR 06/06/2021 4:21 PM MEDICAL CODING AUDITOR Magno Nuñez MD LAB BLOOD ORDERABLES Final Res ult Performing Organization Address City/[facility]/ZIP Co de Phone Number [facility] [place] [address] * (ABNORMAL) Comprehensive metabolic panel (06/06/2021 4:16 PM MEDICAL CODING AUDITOR) Sodium 136 135 - 145 mmol/L [facility] Comment: Code Blue Specimen After removal of gross lipemia. Potassium, pl 3.7 3.3 - 4.9 mmol/L [facility] Comment: Code Blue Specimen After removal of gross lipemia. Chloride 97 97 - 110 mmol/L [facility] Comment: Code Blue Specimen After removal of gross lipemia. CO2 19(L) 22 - 32 mmol/L [facility] Comment: Code Blue Specimen After removal of gross lipemia. Anion gap 20(H) 2 - 15 mmol/L [facility] Comment: Code Blue Specimen After removal of gross lipemia. BUN 15 8 - 25 mg/dL [facility] Comment: Code Blue Specimen After removal of gross lipemia. Creatinine 0.73(L) 0.80 - 1.30 mg/dL [facility] Comment: Code Blue Specimen After removal of gross lipemia. Glucose 426(H) 70 - 199 mg/dL [facility] Comment: Code Blue Specimen After removal of [...] 2017. Calcium 9.6 8.5 - 10.3 mg/dL [facility] Comment: Code Blue Specimen After removal of gross lipemia. Bilirubin, total 0.3 0.1 - 1.2 mg/dL [facility] Comment: Code Blue Specimen After removal of gross lipemia. Protein, pl 7.1 6.5 - 8.5 g/dL [facility] Comment: Code Blue Specimen After removal of gross lipemia. Albumin 4.3 3.5 - 5.0 g/dL [facility] Comment: Code Blue Specimen After removal of gross lipemia. Alk phos 152(H) 40 - 130 Units/L [facility] Comment: Code Blue Specimen After removal of gross lipemia. ALT 40 7 - 55 Units/L [facility] Comment: Code Blue Specimen After removal of gross lipemia. AST 18 10 - 50 Units/L [facility] Comment: Code Blue Specimen After removal of gross lipemia. Blood 06/06/2021 4:16 PM MEDICAL CODING AUDITOR 06/06/2021 4:21 PM MEDICAL CODING AUDITOR Magno Nuñez MD LAB BLOOD ORDERABLES Final Res ult Performing Organization Address [facility]/ZIP Co de Phone Number [facility] [place] [address] * (ABNORMAL) POCT glucose (06/06/2021 2:59 PM MEDICAL CODING AUDITOR) [facility] Glucose, POC 572(C) 70 - 199 mg/dL [facility] Glucose comment 1 RN Notified [facility] Blood 06/06/2021 2:59 PM MEDICAL CODING AUDITOR 06/06/2021 2:59 PM MEDICAL CODING AUDITOR Charles Andrew MD LAB POCT ORDERABLES - DEVICE Final Result Performing Organization Address [facility] Co de Phone Number [facility] [place] [address] * eGFR (06/06/2021 2:00 PM MEDICAL CODING AUDITOR) eGFR See Comment 90 - 130 [facility] Comment: Credited, hemolyzed specimen. Interpretive Data Reference [...] last reviewed 2021. Blood 06/06/2021 2:00 PM MEDICAL CODING AUDITOR 06/06/2021 2:11 PM MEDICAL CODING AUDITOR us Charles Andrew MD LAB BLOOD ORDERABLES Final Re sult Performing Organization Address [facility] Co de Phone Number [facility] Department [place] [address] * Urinalysis, microscopic only (06/06/2021 2:00 PM MEDICAL CODING AUDITOR) WBC, ur 0-5 0 - 5 /HPF [facility] RBC, ur 0-2 0 - 2 /HPF [facility] Epithelial cells, squamous, ur 1-5 0 - 5 /HPF [facility] Urine 06/06/2021 2:00 PM MEDICAL CODING AUDITOR 06/06/2021 2:07 PM MEDICAL CODING AUDITOR us Glenn Kerr DO LAB URINE ORDERABLES Melina l Result Performing Organization Address [facility] Co de Phone Number [facility] Department [place] [address] * Differential, auto (06/06/2021 2:00 PM MEDICAL CODING AUDITOR) Neutrophil abs 2.7 1.7 - 6.5 K/cumm [facility] Imm gran abs 0.0 0.0 - 0.1 K/cumm [facility] Lymphocyte abs 1.5 0.8 - 3.3 K/cumm [facility] Monocyte abs 0.4 0.2 - 0.8 K/cumm [facility] Eosinophil abs 0.2 0.0 - 0.5 K/cumm [facility] Basophil abs 0.0 0.0 - 0.1 K/cumm [facility] Neutrophil pct 57.5 % [facility] Comment: Interpretive Data Percent cell count reference ranges are not reported, since discordance with absolute values may lead to misinterpretation of CBC data. Current Interpretive Data was last revised on 2017. Imm gran pct 0.4 % [facility] Comment: Interpretive Data Percent cell count reference ranges are not reported, since discordance with absolute values may lead to misinterpretation of CBC data. Current Interpretive Data was last revised on 2017. Lymphocyte pct 31.1 % [facility] Comment: Interpretive Data Percent cell count reference ranges are not reported, since discordance with absolute values may lead to misinterpretation of CBC data. Current Interpretive Data was last revised on 2017. Monocyte pct 7.4 % [facility] Comment: Interpretive Data Percent cell count reference ranges are not reported, since discordance with absolute values may lead to misinterpretation of CBC data. Current Interpretive Data was last revised on 2017. Eosinophil pct 3.2 % [facility] Comment: Interpretive Data Percent cell count reference ranges are not reported, since discordance with absolute values may lead to misinterpretation of CBC data. Current Interpretive Data was last revised on 2017. Basophil pct 0.4 % [facility] Comment: Interpretive Data Percent cell count reference ranges are not reported, since discordance with absolute values may lead to misinterpretation of CBC data. Current Interpretive Data was last revised on 2017. Blood 06/06/2021 2:00 PM MEDICAL CODING AUDITOR 06/06/2021 2:11 PM MEDICAL CODING AUDITOR us Charles Andrew MD LAB BLOOD ORDERABLES Final Re sult [facility] [place] [address] * Magnesium (06/06/2021 2:00 PM MEDICAL CODING AUDITOR) Pathologist [facility] Magnesium See Comment 1.4 - 2.5 mg/dL [facility] Comment:Credited, hemolyzed specimen. Blood 06/06/2021 2:00 PM MEDICAL CODING AUDITOR 06/06/2021 2:11 PM MEDICAL CODING AUDITOR us Charles Andrew MD LAB BLOOD ORDERABLES Final Re sult [facility] [place] [address] * (ABNORMAL) CBC with auto differential (06/06/2021 2:00 PM MEDICAL CODING AUDITOR) [facility] WBC 4.7 3.8 - 9.9 K/cumm [facility] Hgb See Comment 13.0 - 17.5 g/dL [facility] Comment:Sample hemolyzed. HG B and-or HCT may be effected. Suggest redraw. Lipemic. Not able to obtain due to gross hemolysis Hct See Comment 38.9 - 50.3 % [facility] Comment:Sample hemolyzed. HG B and-or HCT may be effected. Suggest redraw. Not able to obtain due to gross hemolysis Plt 309 150 - 400 K/cumm [facility] MPV 10.8 9.1 - 12.3 fL [facility] RBC See Comment 4.30 - 5.80 M/cumm [facility] Comment:Sample hemolyzed; HG B may be elevated due to free hemoglobin, or HCT may be falsely decreased due to ex vivo hemolysis. Lipemic. Not able to obtain due to gross hemolysis MCV See Comment 81.3 - 96.4 fL [facility] Comment:Not able to obtain d ue to gross hemolysis MCH See Comment 27.1 - 33.3 pg [facility] Comment:Not able to obtain d ue to gross hemolysis MCHC See Comment 32.3 - 35.7 g/dL [facility] Comment:Not able to obtain d ue to gross hemolysis RDW CV #SN 11.1 - 14.9 % [facility] Comment:Not able to obtain d ue to gross hemolysis RDW SD #SN 35.7 - 48.1 fL [facility] Comment:Not able to obtain d ue to gross hemolysis NRBC abs 0.04(H) 0.00 - 0.01 K/cumm [facility] Blood 06/06/2021 2:00 PM MEDICAL CODING AUDITOR 06/06/2021 2:11 PM MEDICAL CODING AUDITOR Charles Andrew MD LAB BLOOD ORDERABLES Final Re sult Performing Organization Address City/[facility]/ZIP Co de Phone Number [facility] Department [place] [address] * Lipase (06/06/2021 2:00 PM MEDICAL CODING AUDITOR) Pathologist [facility] Lipase See Comment 10 - 99 Units/L [facility] Comment:Credited, hemolyzed specimen. Blood 06/06/2021 2:00 PM MEDICAL CODING AUDITOR 06/06/2021 2:11 PM MEDICAL CODING AUDITOR Charles Andrew MD LAB BLOOD ORDERABLES Final Re sult Performing Organization Address [facility] Co de Phone Number [facility] [place] [address] * Comprehensive metabolic panel (06/06/2021 2:00 PM MEDICAL CODING AUDITOR) Sodium See Comment 135 - 145 mmol/L [facility] Comment:Credited, hemolyzed specimen. Potassium, pl See Comment 3.3 - 4.9 mmol/L [facility] Comment:Credited, hemolyzed specimen. Chloride See Comment 97 - 110 mmol/L [facility] Comment:Credited, hemolyzed specimen. CO2 See Comment 22 - 32 mmol/L [facility] Comment:Credited, hemolyzed specimen. Anion gap See Comment 2 - 15 mmol/L [facility] Comment:Credited, hemolyzed specimen. BUN See Comment 8 - 25 mg/dL [facility] Comment:Credited, hemolyzed specimen. Creatinine See Comment 0.80 - 1.30 mg/dL [facility] Comment:Credited, hemolyzed specimen. Glucose See Comment 70 - 199 mg/dL [facility] Comment: Credited, hemolyzed specimen. Interpretive Data Fasting [...] Calcium See Comment 8.5 - 10.3 mg/dL [facility] Comment:Credited, hemolyzed specimen. Bilirubin, total See Comment 0.1 - 1.2 mg/dL [facility] Comment:Credited, hemolyzed specimen. Protein, pl See Comment 6.5 - 8.5 g/dL [facility] Comment:Credited, hemolyzed specimen. Albumin See Comment 3.5 - 5.0 g/dL [facility] Comment:Credited, hemolyzed specimen. Alk phos See Comment 40 - 130 Units/L [facility] Comment:Credited, hemolyzed specimen. ALT See Comment 7 - 55 Units/L [facility] Comment:Credited, hemolyzed specimen. AST See Comment 10 - 50 Units/L [facility] Comment:Credited, hemolyzed specimen. Blood 06/06/2021 2:00 PM MEDICAL CODING AUDITOR 06/06/2021 2:11 PM MEDICAL CODING AUDITOR us Charles Andrew MD LAB BLOOD ORDERABLES Final Re sult [facility] [place] [address] * (ABNORMAL) Urinalysis reflex to microscopic (06/06/2021 2:00 PM MEDICAL CODING AUDITOR) Color, ur Straw Yellow [facility] Clarity, ur Clear Clear [facility] Specific gravity, ur 1.033(H) 1.003 - 1.030 [facility] pH, urine 6 [facility] Protein, ur ql 1+(A) Negative [facility] Glucose, ur ql 4+(A) Negative [facility] Ketones, ur 3+(A) Negative [facility] Bilirubin, ur Negative Negative [facility] Blood, ur Negative Negative [facility] Urobilinogen, ur <2.0 <2.0 mg/dL [facility] Nitrite, ur Negative Negative [facility] Leukocyte esterase, ur Negative Negative [facility] UA reflex comment Reflex to microscopic UA will be performed. [facility] Urine 06/06/2021 2:00 PM MEDICAL CODING AUDITOR 06/06/2021 2:07 PM MEDICAL CODING AUDITOR Narrative [facility] - 06/06/2021 2:28 PM MEDICAL CODING AUDITOR ?? Urine pH is affected by diet, medications, systemic acid-base disturbances, and renal tubular function. ??pH may affect urinary stone formation. ??For example, urine pH below 6.0 may help reduce the tendency for calcium phosphate stones and pH greater than 6.0 may reduce the tendency for uric acid stone formation. Source: [employer]. Last revised 05-16-2017 Glenn Kerr DO LAB URINE ORDERABLES Melina l Result Performing Organization Address City/State/[facility] Co de Phone Number [facility] [place] [address] * (ABNORMAL) POCT glucose (06/06/2021 1:58 PM MEDICAL CODING AUDITOR) Glucose, POC 585(C) 70 - 199 mg/dL [facility] Glucose comment 1 RN Notified [facility] Blood 06/06/2021 1:58 PM MEDICAL CODING AUDITOR 06/06/2021 1:58 PM MEDICAL CODING AUDITOR us Charles Andrew MD LAB POCT ORDERABLES - DEVICE Final Result Performing Organization Address City/[facility]/ZIP Co de Phone Number [facility] Department [place] [address] * (ABNORMAL) POCT glucose (06/06/2021 1:16 PM MEDICAL CODING AUDITOR) Pathologist [facility] Glucose, POC >600(C) 70 - 199 mg/dL [facility] Glucose comment 1 RN Notified [facility] Blood 06/06/2021 1:16 PM MEDICAL CODING AUDITOR 06/06/2021 1:16 PM MEDICAL CODING AUDITOR Charles Andrew MD LAB POCT ORDERABLES - DEVICE Final Result Performing Organization Address [facility] Co de Phone Number [facility] Department [place] [address] * Differential, auto (06/06/2021 12:24 PM MEDICAL CODING AUDITOR) [facility] Neutrophil abs 2.9 1.7 - 6.5 K/cumm [facility] Imm gran abs 0.0 0.0 - 0.1 K/cumm [facility] Lymphocyte abs 1.6 0.8 - 3.3 K/cumm [facility] Monocyte abs 0.4 0.2 - 0.8 K/cumm [facility] Eosinophil abs 0.1 0.0 - 0.5 K/cumm [facility] Basophil abs 0.0 0.0 - 0.1 K/cumm [facility] Neutrophil pct 57.2 % [facility] Comment: Interpretive Data Percent cell count reference ranges are not reported, since discordance with absolute values may lead to misinterpretation of CBC data. Current Interpretive Data was last revised on 2017. Imm gran pct 0.6 % [facility] Comment: Interpretive Data Percent cell count reference ranges are not reported, since discordance with absolute values may lead to misinterpretation of CBC data. Current Interpretive Data was last revised on 2017. Lymphocyte pct 31.0 % [facility] Comment: Interpretive Data Percent cell count reference ranges are not reported, since discordance with absolute values may lead to misinterpretation of CBC data. Current Interpretive Data was last revised on 2017. Monocyte pct 7.6 % [facility] Comment: Interpretive Data Percent cell count reference ranges are not reported, since discordance with absolute values may lead to misinterpretation of CBC data. Current Interpretive Data was last revised on 2017. Eosinophil pct 2.8 % [facility] Comment: Interpretive Data Percent cell count reference ranges are not reported, since discordance with absolute values may lead to misinterpretation of CBC data. Current Interpretive Data was last revised on 2017. Basophil pct 0.8 % [facility] Comment: Interpretive Data Percent cell count reference ranges are not reported, since discordance with absolute values may lead to misinterpretation of CBC data. Current Interpretive Data was last revised on 2017. Blood 06/06/2021 12:2 4 PM MEDICAL CODING AUDITOR 06/06/2021 12:29 PM MEDICAL CODING AUDITOR Glenn Kerr DO LAB BLOOD ORDERABLES Melina l Result Performing Organization Address [facility] de Phone Number [facility] [place] [address] * (ABNORMAL) Blood gas, venous (06/06/2021 12:24 PM MEDICAL CODING AUDITOR) pH, Venous 7.33 7.32 - 7.43 [facility] PCO2, Venous 36(L) 40 - 50 mmHg [facility] PO2, Venous 66 mmHg [facility] Comment: Interpretive Data No Reference Range Established Current Interpretive Data was last revised on 2017. HCO3 Venous, Calculated 20 20 - 30 mmol/L [facility] BE, venous -6 mmol/L [facility] Comment: Interpretive Data No Reference Range Established Current Interpretive Data was last revised on 2017. Blood 06/06/2021 12:2 4 PM MEDICAL CODING AUDITOR 06/06/2021 12:29 PM MEDICAL CODING AUDITOR Glenn Kerr DO LAB BLOOD ORDERABLES Melina l Result Performing Organization Address [facility]/ZIP Co de Phone Number [facility] Department [place] [address] * (ABNORMAL) CBC with auto differential (06/06/2021 12:24 PM MEDICAL CODING AUDITOR) [facility] WBC 4.0 3.8 - 9.9 K/cumm [facility] Comment:Result required veri fication by manual methods. Hgb See Comment 13.0 - 17.5 g/dL [facility] Comment:Sample hemolyzed. Morrison ggest redraw. Results invalid. Hct 44.7 38.9 - 50.3 % [facility] Plt 327 150 - 400 K/cumm [facility] MPV 10.9 9.1 - 12.3 fL [facility] RBC 5.33 4.30 - 5.80 M/cumm [facility] MCV 83.9 81.3 - 96.4 fL [facility] MCH See Comment 27.1 - 33.3 pg [facility] Comment:Sample hemolyzed. Morrison ggest redraw. Results invalid. MCHC See Comment 32.3 - 35.7 g/dL [facility] Comment:Sample hemolyzed. Morrison ggest redraw. Results invalid. RDW CV 16.6(H) 11.1 - 14.9 % [facility] RDW SD 42.8 35.7 - 48.1 fL [facility] NRBC abs 0.03(H) 0.00 - 0.01 K/cumm [facility] Blood (Blood, Venous) 06/06/2021 12:24 PM MEDICAL CODING AUDITOR 06/06/2021 12:29 PM MEDICAL CODING AUDITOR Glenn Kerr DO LAB BLOOD ORDERABLES Edit ed Result - Final [facility] [place] [address] * Influenza A/B, RSV, and COVID-19 PCR Nasopharyngeal (06/06/2021 12:24 PM MEDICAL CODING AUDITOR) [facility] COVID-19 RNA Negative Negative [facility] Influenza A RNA Negative Negative [facility] Influenza B RNA Negative Negative [facility] RSV RNA Negative Negative [facility] Comment: Interpretive data: Testing performed by [facility] ([phone]). This test is performed using the [employer] Xpert Xpress CoV-2/Flu/RSV plus assay. This is a multiplex, real-time reverse transcriptase PCR assay intended for the qualitative detection of nucleic acid from SARS-CoV-2, influenza A, influenza B, and respiratory syncytial virus. This assay has been reviewed by the FDA for Emergency Use Authorization (EUA). The performance characteristics have been verified by the [facility]. Results must be considered in the clinical context, and a negative result does not rule out infection. Interpretive Data last revised 2021. First COVID-19 test? No [facility] Employeed in healthcare? No [facility] Group care resident? No [facility] Hospitalized? No [facility] Is patient in ICU? No [facility] Symptomatic as defined by CDC? No [facility] Nasopharyngeal 06/06/2021 12 :24 PM MEDICAL CODING AUDITOR 06/06/2021 12:32 PM MEDICAL CODING AUDITOR Narrative [facility] - 06/06/2021 1:15 PM MEDICAL CODING AUDITOR Reason for testing?->Bed placement or semi-private room Known exposure to confirmed or suspected COVID-19 case?->No Glenn Kerr DO LAB MICROBIOLOGY - GENERA L ORDERABLES Final Result Performing Organization Address City/State/[facility] Co de Phone Number [facility] [facility] [place] [address] * XR Chest 1 View (06/06/2021 12:17 PM MEDICAL CODING AUDITOR) Anatomical Region Laterality Modality Body, Chest N/A Computed Radiogr aphy 06/06/2021 12:3 7 PM MEDICAL CODING AUDITOR Impressions 06/06/2021 12:37 PM MEDICAL CODING AUDITOR Comparison to 01/14/2020. Small lung volumes. No focal consolidation, pleural effusion, or pneumothorax. Normal cardiomediastinal silhouette accounting for small lung volumes. Electronically signed by: Miah Fisher M.D. Narrative 06/06/2021 12:37 PM MEDICAL CODING AUDITOR EXAMINATION: 1 view chest radiograph Procedure Note Miah Fisher MD - 06/06/2021 EXAMINATION: 1 view chest radiograph IMPRESSION: Comparison to 01/14/2020. Small lung volumes. No focal consolidation, pleural effusion, or pneumothorax. Normal cardiomediastinal silhouette accounting for small lung volumes. Electronically signed by: Miah Fisher M.D. Glenn Murraykatiuskadamon DO IMG XR PROCEDURES Final R esult * NE CRITICAL CARE ILL/INJURED PATIENT INIT 30-74 MIN (06/06/2021 12:10 PM MEDICAL CODING AUDITOR) Narrative Charles Andrew MD - 06/06/2021 12:10 PM MEDICAL CODING AUDITOR Charles Andrew MD ? 06/06/2021 12:11 PM [...] * (ABNORMAL) POCT ketone (06/06/2021 11:52 AM MEDICAL CODING AUDITOR) Ketones, Blood, POC 2.4(A) 0.1 - 0.5 mmol/L Blood specimen (specimen) 06/06/2021 11:52 AM MEDICAL CODING AUDITOR us Charles Andrew MD POINT OF CARE TEST ORDERABLES Final Result * (ABNORMAL) POCT glucose (06/06/2021 11:50 AM MEDICAL CODING AUDITOR) Glucose, POC 535(C) 70 - 199 mg/dL [facility] Glucose comment 1 RN Notified [facility] Blood 06/06/2021 11:5 0 AM MEDICAL CODING AUDITOR 06/06/2021 11:50 AM MEDICAL CODING AUDITOR us Notinfile Unknown LAB POCT ORDERABLES - DEVICE F inal Result [facility] Department [place] [address] documented in this encounter Visit Diagnoses Diagnosis [...] Fever, PainIndications:Fever,Rogers n Given 06/06/2021 11:05 PM MEDICAL CODING AUDITOR 650 mg carvediloL (COREG) tablet 25 mg 25 mg, oral, 2 times daily with meals (bkfst, dinner), First dose on Sat06/07/21 at 0800 Given 06/07/2021 8:21 AM MEDICAL CODING AUDITOR 25 mg dextrose (D10W) 10% bolus 250 [...] Call MD for each episode of hypoglycemia. OPERATIONS ASSOCIATE STATES GLUTOSE-15 CONTAINS GLUCOSE 40% W/W (50% [...] 250 mL/hr Rate/Dose Change 06/06/2021 8:59 PM MEDICAL CODING AUDITOR 150 mL/hr 150 mL/hr New Bag 06/06/2021 7:25 PM MEDICAL CODING AUDITOR 100 mL/hr 100 mL/hr DULoxetine DR (CYMBALTA) extended release capsule 60 mg 60 mg, oral, Daily, First dose on Sat06/07/21 at 0900, Capsule may be opened and contents mixed with applesauce or apple juice ONLY. Do not crush, chew, cut, dissolve, open or otherwise manipulate tablet/capsule., Indications: Anxiety with DepressionIndications:Anxiety with Depression Given 06/07/2021 8:2 1 AM MEDICAL CODING AUDITOR 60 mg glucagon injection 1 mg 1 [...] break, or open. Given 06/07/2021 9:38 AM MEDICAL CODING AUDITOR 600 mg Given 06/07/2021 2:21 AM MEDICAL CODING AUDITOR 600 mg insulin glargine (LANTUS, SEMGLEE) 100 unit/mL injection 100 Units 100 Units, subcutaneous, 2 times daily, First dose on Sat06/06/21 at 2330, Do not hold if NPO. Do not mix with other insulins, Indications: Diabetes MellitusIndications:Diabete s Mellitus Given 06/07/2021 8:21 AM MEDICAL CODING AUDITOR 100 Units Left Upper Abdomen Given 06/06/2021 11:42 PM MEDICAL CODING AUDITOR 100 Units L eft Lower Abdomen insulin [...] Diabetes MellitusIndications:Diabetes Mellitus Given 06/07/2021 1:36 PM MEDICAL CODING AUDITOR 8 Units Left Lower Abdomen Given 06/07/2021 8:54 AM MEDICAL CODING AUDITOR 6 Units Ri ght Upper Arm insulin [...] Diabetes MellitusIndications:Diabetes Mellitus Given 06/07/2021 2:21 AM MEDICAL CODING AUDITOR 4 Units Right Lower Abdomen insulin lispro [...] ketoacidosisIndications:diabe tic ketoacidosis Given 06/06/2021 11:06 PM MEDICAL CODING AUDITOR 18 Units Left Upper Arm Given 06/06/2021 7:22 PM MEDICAL CODING AUDITOR 18 Units Le ft Upper Arm insulin [...] Diabetes MellitusIndications:Diabetes Mellitus Given 06/07/2021 1:36 PM MEDICAL CODING AUDITOR 20 Units Left Lower Abdomen Given 06/07/2021 8:55 AM MEDICAL CODING AUDITOR 20 Units Ri ght Upper Arm insulin [...] ketoacidosisIndications:diabe tic ketoacidosis Given 06/06/2021 4:45 PM MEDICAL CODING AUDITOR 36 Units Left Lower Abdomen Given 06/06/2021 1:23 PM MEDICAL CODING AUDITOR 36 Units Le ft Lower Abdomen Lactated Ringer's (LR) bolus 1,000 mL 1,000 mL, intravenous, at 1,000 mL/hr, Administer over 1 Hours, Once, On Sat06/06/21 at 1209, For 1 dose New Bag 06/06/2021 12:28 PM MEDICAL CODING AUDITOR 1,000 mL 1000 mL/hr lisinopriL (PRINIVIL,ZESTRIL) tablet 20 mg 20 mg, oral, Daily, First dose on Sat06/07/21 at 0900 Given 06/07/2021 8:21 AM MEDICAL CODING AUDITOR 20 mg magnesium sulfate 2 g/50 mL in water (premix) 2 g 2 g, intravenous, Administer over 60 Minutes, Once, On Sat06/06/21 at 1905, For 1 dose New Bag 06/06/2021 7:36 PM MEDICAL CODING AUDITOR 2 g ondansetron (ZOFRAN) injection 4 mg 4 mg, intravenous, Administer over 2 Minutes, Every 6 hours PRN, nausea, vomiting, if not tolerating PO, Starting on Sat06/06/21 at 2234, Indications: Nausea and VomitingIndications:Nausea and Vomiting ondansetron ODT (ZOFRAN-ODT) disintegrating tablet 4 mg 4 mg, oral, Once, On Sat06/06/21 at 1209, For 1 dose Given 06/06/2021 12:28 PM MEDICAL CODING AUDITOR 4 mg ondansetron ODT (ZOFRAN-ODT) disintegrating tablet [...] prior to administration. Given 06/06/2021 4:46 PM MEDICAL CODING AUDITOR 40 mEq potassium chloride 20 mEq/260 mL in sodium chloride 0.9% (premix) 20 mEq 20 mEq, intravenous, Administer over 2 Hours, Once, On Sat06/06/21 at 1906, For 1 dose, Indications: hypokalemiaIndications:hypokalemi a New Bag 06/06/2021 7:46 PM MEDICAL CODING AUDITOR 20 mEq sodium chloride 0.45% infusion 150 mL/hr, intravenous, Continuous, Starting on Sat06/06/21 at 1253, Decrease rate to 50 mL/hr when blood glucose reaches 250 mg/dL. New Bag 06/06/2021 10:26 PM MEDICAL CODING AUDITOR 50 mL/hr 50 mL/hr Rate/Dose Change 06/06/2021 7:24 PM MEDICAL CODING AUDITOR 50 mL/hr 50 mL/h r New Bag 06/06/2021 2:04 PM MEDICAL CODING AUDITOR 150 mL/hr 150 mL/hr sodium chloride 0.9% bolus 1,000 mL 1,000 mL, intravenous, at 1,000 mL/hr, Administer over 1 Hours, Once, On Sat06/06/21 at 1253, For 1 dose New Bag 06/06/2021 1:23 PM MEDICAL CODING AUDITOR 1,000 mL 1000 mL/hr sodium chloride 0.9% flush 0.5-20 mL 0.5-20 mL, intra-catheter, Every 8 hours scheduled, First dose on Sat06/06/21 at 2315, Flush volume based on line type and size. Given 06/07/2021 4:04 AM MEDICAL CODING AUDITOR 10 mL Given 06/06/2021 11:08 PM MEDICAL CODING AUDITOR 10 mL documented in this encounter Discontinued [...] Recently Administered Medications Times are shown in MEDICAL CODING AUDITOR. Scheduled Medication Order 06/05/2021 06/06/2021 06/07/2021 carvediloL [...] Call MD for each episode of hypoglycemia. OPERATIONS ASSOCIATE STATES GLUTOSE-15 CONTAINS GLUCOSE 40% W/W (50% [...] Call MD for each episode of hypoglycemia. OPERATIONS ASSOCIATE STATES GLUTOSE-15 CONTAINS GLUCOSE 40% W/W (50% [...] DISCHARGE INSTRUCTIONS 2 06/07/2021 ONCBCN NURSING COMMUNICATION [id number] 06/06 WEIGH PATIENT 1 06/06/2021 Consult [...] 06/06/2021 documented in this encounter Care Teams Technical Support Specialist Relationship Specialty Start Date End Date Jann Burrows MD [address] [place] [address] PCP - General Hematology 03/13/19 10/28/21 Mariana Monique MD [address] [place] [address] Referring Physician Internal Medicine 01/17/20 documented as of this encounter
--- OUTSIDE RECORDS SUMMARY | 2024-05-10 20:21 | XMS_ITS | Encounter Summary ---
Author Organization [facility] Healthcare Address [address] [place] [address] Care Team Providers Care Patch Sander Name Role Phone Jann Burrows MD Primary Care Provider [phone] Mariana Monique MD Unavailable [phone] Encounter Details Date Type Department Care Team (Late st Contact Info) Description 10/13/2020 6:00 PM CDT Lab [facility] Advanced Medicine [facility] Advanced Medicine ([facility]) [address] [place] [address] Peter Styles Jr., MD [facility] [address] [place] [address] Essential hypertension; Type 2 diabetes mellitus without complication, with long-term current use of insulin ([facility]); Morbid obesity with BMI of 50.0-59.9, adult ([facility]); Elevated LFTs; Type 2 diabetes mellitus with ketoacidosis without coma, without long-term current use of insulin ([facility]) Discharge Disposition: Discharge to home or self care Social History Tobacco Use Types Packs/Day Years Used Date Smoking Tobacco: Never Smokeless Tobacco: Former Chew Quit: 01/13/2019 Alcohol Use Standard Drinks/Week Comments Not Currently 0 (1 standard drink = 0.6 oz pur e alcohol) Sex and Gender Information Value Date Recorded Sex Assigned at Not on file Legal Sex Male 5:01 AM TRUCK HOP Gender Identity Male 12/18/2017 12:38 PM CDT Sexual Orientation Not on file 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 Not on file Not [...] complication, with long-term current use of insulin ([facility]) Morbid obesity with BMI of 50.0-59.9, adult ([facility]) COMPREHENSIVE METABOLIC PANEL Routine 10/13/2020 5:58 PM CDT Essential hypertension Type 2 diabetes mellitus without complication, with long-term current use of insulin ([facility]) Morbid obesity with BMI of 50.0-59.9, adult ([facility]) Elevated LFTs documented in this encounter Results * (ABNORMAL) Lipid panel (10/13/2020 5:58 PM CDT) [facility] Signature Cholesterol 194 30 - 199 mg/dL [facility] Comment: Interpretive Data Ages < [...] on 2017. HDL 34(L) >=40 mg/dL [facility] Comment: Interpretive Data Ages < [...] 2017. LDL, calculated 111 <=129 mg/dL [facility] Comment: Interpretive Data Ages < [...] revised on 2017. Non-HDL Cholesterol 160 mg/dL [facility] Comment: Interpretive Data Ages < [...] last revised on 2017. Chol/HDL ratio 6 [facility] Blood specimen (specimen) 10/13/2020 5:58 PM CDT 10/13/2020 6:09 PM CDT us Radames Burroughs MD PhD LAB BLOOD ORDERABLE S Final Result [facility] Department [place] [address] * (ABNORMAL) Comprehensive metabolic panel (10/13/2020 5:58 PM CDT) Sodium 139 135 - 145 mmol/L [facility] Potassium, pl 4.5 3.3 - 4.9 mmol/L [facility] Chloride 102 97 - 110 mmol/L [facility] CO2 28 22 - 32 mmol/L [facility] Anion gap 9 2 - 15 mmol/L [facility] BUN 17 8 - 25 mg/dL [facility] Creatinine 0.92 0.80 - 1.30 mg/dL [facility] Glucose 98 70 - 199 mg/dL [facility] Comment: Interpretive Data Fasting glucose [...] 2017. Calcium 9.8 8.5 - 10.3 mg/dL [facility] Bilirubin, total 0.4 0.1 - 1.2 mg/dL [facility] Protein, pl 8.3 6.5 - 8.5 g/dL [facility] Albumin 5.1(H) 3.5 - 5.0 g/dL [facility] Alk phos 69 40 - 130 Units/L [facility] ALT 39 7 - 55 Units/L [facility] AST 34 10 - 50 Units/L [facility] Blood specimen (specimen) 10/13/2020 5:58 PM CDT 10/13/2020 6:09 PM CDT us Radames Burroughs MD PhD LAB BLOOD ORDERABLE S Final Result [facility] [place] [address] documented in this encounter Visit Diagnoses Diagnosis Essential hypertension Unspecified essential hypertension Type 2 diabetes mellitus without complication, with long-term current use of insulin (CMS/HCC) (HCC) Morbid obesity with BMI of 50.0-59.9, adult (HCC) Elevated LFTs Other abnormal blood chemistry Type 2 diabetes mellitus with ketoacidosis without coma, without long-term current use of insulin (HCC) documented in this encounter Care Teams Patch Sander Relationship Specialty Start Date End Date Jann Burrows MD [address] [facility] [address] [place] [address] PCP - General Hematology 03/13/19 10/28/21 Mariana Monique MD [address] [place] [address] Referring Physician Internal Medicine 01/17/20 documented as of this encounter
--- OUTSIDE RECORDS SUMMARY | 2024-05-10 20:21 | XMS_ITS | Encounter Summary ---
Author Organization [facility] Healthcare Address [address] [place] [address] Care Team Providers Care Facing Machine Operator Name Role Phone Jann Burrows MD Primary Care Provider [phone] Encounter Details Date Type Department Care Team (Late st Contact Info) Description 2019 Orders Only [facility] [address] [facility] [address] [place], [place] [id number] Smith Rhoades MD PhD [address] [facility] [address] [place] [address] Social History Tobacco Use Types Packs/Day Years Used Date Smoking Tobacco: Every Day Cigarettes Smokeless Tobacco: Current Chew Alcohol Use Standard Drinks/Week Comments Yes 24 (1 standard drink = 0.6 oz pu re alcohol) CAGE negative. Case per week. 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
--- OUTSIDE RECORDS SUMMARY | 2024-05-10 20:21 | XMS_ITS | Encounter Summary ---
Author Organization [facility] Address [address] [place] [address] Phone Care Team Providers Care Warehouse Foreman Name Role Phone Jann Burrows MD Primary Care Provider [phone] Mariana Monique MD Unavailable [phone] Reason for Visit * Reason Onset Date Comments Dexcom update 08/17/2021 Encounter Details Date Type Department Care Team (Late st Contact Info) Description 08/17/2021 Documentation [facility] Endocrinology Metabolism and Lipid [address] [facility] 5[address] [place] [address] [place] [address] Denia Albert RN Dexcom update Social History Tobacco Use Types Packs/Day Years Used Date Smoking Tobacco: Never Smokeless Tobacco: Former Chew Quit: 01/13/2019 Alcohol Use Standard Drinks/Week Comments Not Currently 0 (1 standard drink = 0.6 oz pur e alcohol) Sex and Gender Information Value Date Recorded Sex Assigned at Not on file Legal Sex Male 5: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 08/16/2021 08/11/2021 documented in this encounter Plan of Treatment Not on file documented as of this encounter Visit Diagnoses Not on filedocumented in this encounter Care Teams Warehouse Foreman Relationship Specialty Start Date End Date Jann Burrows MD [address] [place] [address] PCP - General Hematology 03/13/19 10/28/21 Mariana Monique MD [address] [place] [address] Referring Physician Internal Medicine 01/17/20 documented as of this encounter
--- OUTSIDE RECORDS SUMMARY | 2024-05-10 20:21 | XMS_ITS | Encounter Summary ---
Author Organization [facility] Address [address] [place] [address] Phone Care Team Providers Care Clip Wrapper Name Role Phone Jann Burrows MD Primary Care Provider [phone] Mariana Monique MD Unavailable [phone] Reason for Visit * Reason Onset Date Comments Prior Auth [employer] 06/13/2021 Encounter Details Date Type Department Care Team (Late st Contact Info) Description 06/13/2021 Telephone [facility] Endocrinology Metabolism and Lipid [address] 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 K SEXER * Telephone Encounter - Denia Albert RN - 06/13/2021 3:44 PM CHICK SEXER Images from the original note were not included. Patient of Dr Styles K SEXER documented in this encounter Plan of Treatment Not on file documented as of this encounter Visit Diagnoses Not on filedocumented in this encounter Care Teams Clip Wrapper Relationship Specialty Start Date End Date Jann Burrows MD [address] [place] [address] PCP - General Hematology 03/13/19 10/28/21 Mariana Monique MD [address] [place] [address] Referring Physician Internal Medicine 01/17/20 documented as of this encounter
--- OUTSIDE RECORDS SUMMARY | 2024-05-10 20:21 | XMS_ITS | Encounter Summary ---
Author Organization [facility] Healthcare Address [address] [place] [address] Care Team Providers Care Financial Planning Advisor Name Role Phone Mariana Monique MD Unavailable [phone] [facility] Primary Care Provider Reason for Visit * Reason Comments Hyperglycemia * Auth/Cert Specialty Diagnoses / Procedures Referred By Contevans t Referred To Contact Diagnoses Diabetic ketoacidosis without coma associated with diabetes mellitus due to underlying condition (CMS/HCC) (HCC) Procedures ADMISSION Referral ID Status Reason Start Date Expiration Date Visits Re quested Visits Authorized [id number] 1 1 Encounter Details Date Type Department Care Team (Late st Contact Info) Description 11/22/2021 10:35 PM CDT - 11/24/2021 1:05 AM CDT Emergency [facility] Emergency Department [address] [place] [address] Jasbir Cline MD [address] [place] [address] Shae Millan MD [address] [place] [address] Norm Butler MD [address] [place] [address] Mike Graham MD PhD [address] [place] [address] Luis Fernando Dutta MD [address] [place] [address] Diabetic ketoacidosis without coma associated [...] on file 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 Endocrine diabetes consult for type 1 diabetes. Cellulitis Assessment & Plan Gets recurrent infected ingrown toe nails despite abx. Does not recall which abx he has received. Doxy+amox x7days. Consider podiatry consult. Angina pectoris ([facility]) Assessment & Plan likely panic attacks over ACS. EKG w/o ST-T changes. -Aspirin. Statin. Bb, ACEi. Pending trop trend. Type 2 diabetes mellitus without complication, with long-term current use of insulin ([facility]) ([facility]) Assessment & Plan pending repeat A1c documented in this encounter Consult Notes * Daily Jasso MD PhD - 11/23/2021 3:08 PM CDTAssociated Order(s): CONSULT TO ENDOCRINOLOGY DIABETES Endocrinology & Diabetes Consult Note Patient: Geraldo Velez, 25 y.o. male (: 1995) Room: [facility] ED2-25/ED2-25 ( ) LOS: 0 Consult Question: [...] with ingrown toenails but has notseen a tape coater or had a foot exam. -Follows with [facility] Endocrinology (Dr. Styles). He has previously been [...] medical history of Anxiety, Depression, Diabetes mellitus ([facility]), Disordered sleep (10/13/2017), HTN (hypertension), Metabolic syndrome, [...] 16 (L) 09/06/2017 CPEPTIDE 11.2 (H) 12/31/2019 [id number] 0.00 03/04/2019 Lab Results Component Value Date [...] will need to follow up with his Telephone Solicitor Supervisor Dr. 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 > He can call [phone] or [phone] to make an appointment. -- Daily Jasso MD PhD PGY-2 Internal Medicine This patient was seen and staffed with Dr. John Solano (Fellow) and Dr. Adam Fulton (Attending). Contact Info: New Consults: [phone]) General Endocrine (Non-Diabetes): [phone] (Check 'Treatment Team' assignment for Diabetes 1 vs 2 vs 3) Diabetes 1: Diabetes Fellow: [phone] Diabetes 2: Ladan Arias, FLIGHT SERVICE AGENT: [phone] Diabetes 3: See Treatment Team Provider (or [...] for likely infected toenails Adam Fulton MD, [facility] [employer] web craw[employer] Division of Endocrinology, Metabolism & Lipid Research documented in this encounter ED Notes * Lin Stanton RN - 11/23/2021 5:20 PM CDT Called report to [facility]. Report is given to BRYANNA Boyd. Pt is going to ICU room 693. Pt is notified, agrees to go. Pt denies any pain or discomfort at this time. Safety precautions in place. Lin Stanton RN 11/23/21 1816 * Lin Stanton RN - 11/23/2021 5:17 PM CDT Rig number [id number] Lin Stanton RN 11/23/21 1717 * Jasbir [...] ??? DKA, type 1, not at goal ([facility]) ([facility]) 11/24/2021 ??? Diabetic ketoacidosis without coma associated with diabetes mellitus due to underlying condition ([facility]) ([facility]) 11/23/2021 ??? Cellulitis 11/23/2021 ??? Angina pectoris ([facility]) 11/23/2021 ??? Sleep disturbance 12/25/2019 ??? Mood disorder ([facility]) ([facility]) 12/25/2019 ??? Acanthosis nigricans 03/19/2019 ??? [...] By: Luis Fernando Dutta MD Time: 11/23 0993 Comment: Spoke with Endocrinology who will see the patient By: Scotty Mcclelland MD Time: 11/23 1005 Comment: Spoke with endocrine - patient was given food. Expect DKA to be slow to resolve. They recommend insulin infusion and ICU admission. By: Luis Fernnado Dutta MD Time: 11/23 1045 Comment: Spoke with the medical ICU, will admit patient but currently no beds By: Scotty Mcclelland MD Time: 11/23 1246 Comment: Spoke with the [facility] transfer center, they are working on finding a bed for the patient at [facility]of our [facility]. By: Scotty Mcclelland MD Time: 11/23 9347 Comment: Spoke with nurse Judith at [facility], Dr. Dequan Nunez agrees to accept patient to ICU. Will work on By: Scotty Mcclelland MD Time: 11/23 5867 Comment: Patient accepted at [facility], will transfer By: Scotty Mcclelland MD Time: 11/23 5649 Value: Potassium, whole blood: Potassium, bld 3.6 Comment: (Reviewed) By: Scotty Mcclelland MD Time: 11/23 3499 Comment: ATTENDING TRANSITION OF CARE I, Bo Cohen MD, am taking signout from Tra (Attending). I have reviewed all pertinent vital signs allergies, and history available in the chart. Summary: 25 y.o. male Tra Pending: transfer to [facility] - ambulance Dispo: transfer to [facility] By: Bo Cohen MD Time: 11/23 4906 Comment: Assessed patient after sign out he is well appearing no distress, plan is to continue insulin gtt and transfer to available [facility] bed. By: Wes Davila MD Time: 11/234 Comment: Still awaiting transport. By: Wes Davila MD Time: 11/24 005 Comment: EMS arrived to ED to transport patient to [facility]. I re-evaluated him just prior to [...] 45.0 to 49.9 in adult,unspecified obesity type ([facility]) Essential hypertension Hyperglycemia Radames Herrera MD Resident [...] and ICU admit. No bed availability at [facility]. Most recent BMP with AG 16. Accepted for transfer to [facility] ICU. Pending: transport Dispo: transfer ED [...] By: Luis Fernando Dutta MD Time: 11/23 5137 Comment: Spoke with Endocrinology who will see the patient By: Scotty Mcclelland MD Time: 11/23 1005 Comment: Spoke with endocrine - patient was given food. Expect DKA to be slow to resolve. They recommend insulin infusion and ICU admission. By: Luis Fernando Dutta MD Time: 11/23 8723 Comment: Spoke with the medical ICU, will admit patient but currently no beds By: Scotty Mcclelland MD Time: 11/23 1246 Comment: Spoke with the [facility] transfer center, they are working on finding a bed for the patient at [facility] our [facility]. By: Scotty Mcclelland MD Time: 11/23 1946 Comment: Spoke with nurse Judith at [facility], Dr. Dequan Enrique agrees to accept patient to ICU. Will work on By: Scotty Mcclelland MD Time: 11/23 1324 Comment: Patient accepted at [facility], will transfer By: Scotty Mcclelland MD Time: 11/23 1329 Value: Potassium, whole blood: Potassium, bld 3.6 Comment: (Reviewed) By: Scotty Mcclelland MD Time: 11/23 6815 Comment: ATTENDING TRANSITION OF CARE I, Bo Cohen MD, am taking signout from Tra (Attending). I have reviewed all pertinent vital signs allergies, and history available in the chart. Summary: 25 y.o. male Tra Pending: transfer to [facility] - ambulance Dispo: transfer to [facility] By: Bo Cohen MD Time: 11/23 4353 Comment: Assessed patient after sign out he is well appearing no distress, plan is to continue insulin gtt and transfer to available [facility]. By: Wes Davila MD Time: 11/23 8846 Comment: Still awaiting transport. By: Wes Davila MD Time: 11/24 0052 Comment: EMS arrived to ED to transport patient to [facility]. I re-evaluated him just prior to [...] DKA and awaiting t'az to ICU @ [facility]. Past Medical History: Diagnosis Date ??? [...] . This test is performed using the Alleantia Xpert Xpress plus assay. This is a [...] . This test is performed using the Alleantia Xpert Xpress plus assay. This is a [...] 45.0 to 49.9 in adult,unspecified obesity type ([facility]) Essential hypertension Hyperglycemia Mike Graham MD PhD 11/23/2021 7:08 PM Mike Graham MD PhD 11/23/21 1909 * Plan of Care - Hanane Castellon RN - 11/23/2021 4:35 PM CDT Patient accepted for transfer to [facility] after P2P. Nurse given room no and [...] insulin gtt. Pending: transfer Dispo: transfer to [facility] ED Course as of 11/25/21 0646 Time: [...] Time: 11/23 1246 Comment: Spoke with the [facility] transfer center, they are working on finding a bed for the patient at [facility]of our [facility]. By: Scotty Mcclelland MD Time: 11/23 1307 Comment: Spoke with nurse Judith at [facility], Dr. Dequan Nunez agrees to accept patient to ICU. Will work on By: Scotty Mcclelland MD Time: 11/23 1328 Comment: Patient accepted at [facility], will transfer By: Scotty Mcclelland MD Time: 11/23 1329 Value: Potassium, whole blood: Potassium, bld 3.6 Comment: (Reviewed) By: Scotty Mcclelland MD Time: 11/23 2985 Comment: ATTENDING TRANSITION OF CARE I, Bo [...] continue insulin gtt and transfer to available [facility] bed. By: Wes Davila MD Time: 11/23 2324 Comment: Still awaiting transport. By: Wes Davila MD Time: 11/24 0052 Comment: EMS arrived to ED to transport patient to [facility]. I re-evaluated him just prior to [...] 45.0 to 49.9 in adult,unspecified obesity type ([facility]) Essential hypertension Hyperglycemia Wes Davila MD Resident 11/23/21 2486 Wes Davila MD Resident 11/25/21 0646 * [...] toe. * Plan of Care - Hanane aCstellon RN - 11/23/2021 7:40 AM CDT Patient [...] By: Luis Fernando Dutta MD Time: 11/23 0954 Comment: Spoke with Endocrinology who will see [...] Time: 11/23 1246 Comment: Spoke with the [facility] transfer center, they are working on finding a bed for the patient at [facility]of our [facility]. By: Scotty Mcclelland MD Time: 11/23 1307 Comment: Spoke with nurse Judith at [facility], Dr. Dequan Nunez agrees to accept patient to ICU. Will work on By: Scotty Mcclelland MD Time: 11/23 1320 Comment: Patient accepted at [facility], will transfer By: Scotty Mcclelland MD Time: 11/23 132 Value: Potassium, whole blood: Potassium, bld 3.6 Comment: (Reviewed) By: Scotty Mcclelland MD Time: 11/23 1504 Comment: ATTENDING TRANSITION OF CARE I, Bo Cohen MD, am taking signout from Tra (Attending). I have reviewed all pertinent vital signs allergies, and history available in the chart. Summary: 25 y.o. male Tra Pending: transfer [facility] By: Bo Cohen MD Time: 11/23 1609 Comment: Assessed patient after sign out he is well appearing no distress, plan is to continue insulin gtt and transfer to available [facility] bed. By: Wes Davila MD Time: 11/23 3434 Comment: Still awaiting transport. By: Wes Davila MD Time: 11/24 0052 Comment: EMS arrived to ED to transport patient to [facility]. I re-evaluated him just prior to [...] 45.0 to 49.9 in adult,unspecified obesity type ([facility]) Essential hypertension Hyperglycemia Scotty Mcclelland MD Resident 11/23/21 9763 * Assessment & Plan Note - Jef Huerta MD - 11/23/2021 3:37 AM CDT Associated Problem(s): Angina pectoris (HCC) likely panic attacks over ACS. EKG w/o ST-T changes. -Aspirin. Statin. Bb, ACEi. Pending trop trend. * Assessment & Plan Note - Jef Huerta MD - 11/23/2021 3:36 AM CDT Associated Problem(s): DM (diabetes mellitus), type 2 with complications (CMS/HCC) ([facility]) pending repeat A1c * Assessment & Plan [...] diabetes mellitus due to underlying condition (CMS/HCC) ([facility]) SQUID protocol. Endocrine diabetes consult for type [...] DEVICE Routine 11/23/2021 3 :56 PM CDT MI CRITICAL CARE ILL/INJURED PATIENT INIT 30-74 MIN [...] DEVICE Routine 11/23/2021 1 :58 AM CDT MI CRITICAL CARE ILL/INJURED PATIENT ADDL 30 MIN Routine 11/23/2021 1:39 AM CDT MI CRITICAL CARE ILL/INJURED PATIENT INIT 30-74 MIN [...] LAB POCT ORDERABLES - DEVICE Final Result [facility] Department [place] [address] * (ABNORMAL) POCT glucose (11/23/2021 11:39 PM CDT) [facility] Signature Glucose, POC 240(H) 70 - 199 mg/dL [facility] Blood 11/23/2021 11:3 9 PM CDT 11/23/2021 11:39 PM CDT us Mike Graham MD PhD LAB POCT ORDERABLES - DEVICE Final Result [facility] Department [place] [address] * (ABNORMAL) POCT glucose (11/23/2021 10:46 PM CDT) Glucose, POC 207(H) 70 - 199 mg/dL [facility] Blood 11/23/2021 10:4 6 PM CDT 11/23/2021 10:46 PM CDT Norm Butler MD LAB POCT ORDERABLES - DEV ICE Final Result Performing Organization Address [facility] Co de Phone Number [facility] Department [place] [address] * (ABNORMAL) POCT glucose (11/23/2021 9:28 PM CDT) Glucose, POC 214(H) 70 - 199 mg/dL [facility] Blood 11/23/2021 9:28 PM CDT 11/23/2021 9:28 PM CDT Norm Butler MD LAB POCT ORDERABLES - DEV ICE Final Result Performing Organization Address [facility] de Phone Number [facility] [place] [address] * (ABNORMAL) Lipid panel (11/23/2021 8:48 PM [...] on 2017. HDL 12(L) >=40 mg/dL [facility] Comment: Interpretive Data Ages < [...] [facility] [place] [address] * (ABNORMAL) eGFR (11/23/2021 8:48 PM CDT) [...] BLOOD ORDERABLES Final Result Performing Organization Address City/State/[facility] Co de Phone Number [facility] Department [place] [address] * Potassium, whole blood (11/23/2021 8:48 PM CDT) Potassium, bld 4.4 3.3 - 4.9 mmol/L [facility] Blood 11/23/2021 8:48 PM CDT 11/23/2021 8:53 PM CDT Scotty Mcclelland MD LAB BLOOD ORDERABLES Final Result [facility] Department [place] [address] * (ABNORMAL) Basic metabolic panel (11/23/2021 8:48 PM CDT) Sodium 130(L) 135 - 145 mmol/L [facility] Comment:After removal of alie ss lipemia. Potassium, pl See Comment 3.3 - 4.9 mmol/L [facility] Comment: Credited; Hemolyzed Specimen After removal of gross lipemia. Chloride 95(L) 97 - 110 mmol/L [facility] Comment:After removal of alie ss lipemia. CO2 19(L) 22 - 32 mmol/L [facility] Comment: Hemolyzed; result may be falsely decreased After removal of gross lipemia. Anion gap 16(H) 2 - 15 mmol/L [facility] Comment:After removal of alie ss lipemia. BUN [...] BLOOD ORDERABLES Final Result Performing Organization Address City/[facility]/ZIP Co de Phone Number [facility] [place] [address] * POCT glucose (11/23/2021 8:20 PM CDT) Glucose, POC 188 70 - 199 mg/dL [facility] Blood 11/23/2021 8:20 PM CDT 11/23/2021 8:20 PM CDT us Norm Butler MD LAB POCT ORDERABLES - DEV ICE Final Result Performing Organization Address [facility] Co de Phone Number [facility] [place] [address] * POCT glucose (11/23/2021 6:54 PM CDT) Glucose, POC 150 70 - 199 mg/dL [facility] Blood 11/23/2021 6:54 PM CDT 11/23/2021 6:54 PM CDT us Norm Butler MD LAB POCT ORDERABLES - DEV ICE Final Result Performing Organization Address [facility] Co de Phone Number [facility] [place] [address] * POCT glucose (11/23/2021 5:52 PM CDT) Glucose, POC 138 70 - 199 mg/dL [facility] Blood 11/23/2021 5:52 PM CDT 11/23/2021 5:52 PM CDT us Norm Butler MD LAB POCT ORDERABLES - DEV ICE Final Result Performing Organization Address City/[facility]/ZIP Co de Phone Number [facility] Department [place] [address] * POCT glucose (11/23/2021 4:59 PM CDT) Pathologist [facility] Glucose, POC 141 70 - 199 mg/dL [facility] Blood 11/23/2021 4:59 PM CDT 11/23/2021 4:59 PM CDT Norm Butler MD LAB POCT ORDERABLES - DEV ICE Final Result [facility] Department [place] [address] * (ABNORMAL) eGFR (11/23/2021 4:52 PM CDT) Pathologist [facility] eGFR >90(H) 90 - 130 mL/min/1. 73 [...] BLOOD ORDERABLES Final Result Performing Organization Address City/[facility] Co de Phone Number [facility] [place] [address] * Potassium, whole blood (11/23/2021 4:52 PM CDT) Potassium, bld 3.8 3.3 - 4.9 mmol/L [facility] Blood 11/23/2021 4:52 PM CDT 11/23/2021 5:02 PM CDT Scotty Mcclelland MD LAB BLOOD ORDERABLES Final Result Performing Organization Address [facility] de Phone Number [facility] Department [place] [address] * (ABNORMAL) Basic metabolic panel (11/23/2021 4:52 PM CDT) Pathologist [facility] Sodium 136 135 - 145 mmol/L [facility] [...] BLOOD ORDERABLES Final Result Performing Organization Address [facility] Co de Phone Number [facility] Department [place] [address] * POCT glucose (11/23/2021 3:56 PM CDT) [facility] Signature Glucose, POC 155 70 - 199 mg/dL [facility] Blood 11/23/2021 3:56 PM CDT 11/23/2021 3:56 PM CDT Norm Butler MD LAB POCT ORDERABLES - DEV ICE Final Result Performing Organization Address [facility] Co de Phone Number [facility] Department [place] [address] * MI CRITICAL CARE ILL/INJURED PATIENT INIT 30-74 MIN [...] DEV ICE Final Result Performing Organization Address [facility] Co de Phone Number [facility] Department [place] [address] * (ABNORMAL) POCT glucose (11/23/2021 1:40 PM CDT) Glucose, POC 229(H) 70 - 199 mg/dL [facility] Blood 11/23/2021 1:40 PM CDT 11/23/2021 1:40 PM CDT Norm Butler MD LAB POCT ORDERABLES - DEV ICE Final Result [facility] Department [place] [address] * (ABNORMAL) POCT lactate (11/23/2021 1:06 PM CDT) Pathologist [facility] Lactate POC i-STAT <0.5(L) 0.7 - 2.2 mmol/L [facility] Blood 11/23/2021 1:06 PM CDT 11/23/2021 1:06 PM CDT us Norm Butler MD LAB POCT ORDERABLES - DEV ICE Final Result Performing Organization Address City/State/[facility] Co de Phone Number [facility] Department [place] [address] * Cholesterol, LDL, direct (11/23/2021 12:57 PM CDT) Pathologist [facility] LDL Cholesterol, Direct 15 <=129 mg/dL [facility] [...] CDT 11/23/2021 4:22 PM CDT Narrative [facility] - 11/24/2021 8:10 AM CDT Cholesterol, LDL, direct reflexed based on Elevated Triglyceride (>400) us Norm Butler MD LAB BLOOD ORDERABLES Melina castorena Result [facility] Department [place] [address] * (ABNORMAL) Lipid panel (11/23/2021 12:57 PM [...] on 2017. Triglycerides 576(H) <=149 mg/dL [facility] Comment: Hemolyzed; result may be [...] revised on 2017. HDL 11(L) >=40 mg/dL [facility] Comment: Interpretive Data Ages < [...] on 2017. Non-HDL Cholesterol 87 mg/dL [facility] Comment: Interpretive Data Ages < [...] last revised on 2017. Chol/HDL ratio 9 [facility] Blood 11/23/2021 12:5 7 PM CDT 11/23/2021 1:08 PM CDT us Norm Butler MD LAB BLOOD ORDERABLES Edit ed Result - Final [facility] Department [place] [address] * (ABNORMAL) eGFR (11/23/2021 12:57 PM CDT) eGFR >90(H) 90 - 130 mL/min/1. 73 m2 [facility] Comment: Interpretive Data Reference Interval [...] BLOOD ORDERABLES Final Result Performing Organization Address City/[facility]/ZIP Co de Phone Number [facility] [place] [address] * Potassium, whole blood (11/23/2021 12:57 PM CDT) Potassium, bld 3.6 3.3 - 4.9 mmol/L [facility] Blood 11/23/2021 12:5 7 PM CDT 11/23/2021 1:08 PM CDT Scotty Mcclelland MD LAB BLOOD ORDERABLES Final Result Performing Organization Address City/[facility] Co de Phone Number [facility] [place] [address] * (ABNORMAL) Basic metabolic panel (11/23/2021 12:57 PM CDT) Sodium 138 135 - 145 mmol/L [facility] Comment:After removal of alie ss lipemia. Potassium, pl See Comment 3.3 - 4.9 mmol/L [facility] Comment:Credited; Hemolyzed Specimen Chloride 104 97 - 110 mmol/L [facility] Comment:After removal of alie ss lipemia. CO2 18(L) 22 - 32 mmol/L [facility] Comment:After removal of alie ss lipemia. Anion gap 16(H) 2 - 15 mmol/L [facility] Comment:After removal of alie ss lipemia. BUN 17 8 - 25 mg/dL [facility] Comment:After removal of alie ss lipemia. Creatinine 0.58(L) 0.80 - 1.30 mg/dL [facility] Comment:After removal of alie ss lipemia. Glucose 255(H) 70 - 199 mg/dL [facility] Comment: After removal of gross lipemia. Interpretive [...] Mcclelland MD LAB BLOOD ORDERABLES Final Result [facility] Department [place] [address] * Troponin I high-sensitivity 6-hour (11/23/2021 12:57 PM CDT) Trop I hs <4 <=35 ng/L [facility] [facility] Comment: Interpretive Data For further hscTnI resources including the diagnostic algorithm and an aid in interpretation, copy and paste this link: https://bjhlab.testcatalog.org/show/hsTrop-1 Current Interpretive Data last revised 2019. Trop I hs delta See Comment ng/L [facility] Comment:Inappropriate collec tion time to report a delta. Trop I hs pct delta See Comment % [facility] Comment:Inappropriate collec tion time to report a delta. Trop I hs interp See Comment [facility] Comment:Inappropriate collec tion time to report a delta. Blood 11/23/2021 12:5 7 PM CDT 11/23/2021 1:08 PM CDT Radames Herrera MD LAB BLOOD ORDERABLES Melina l Result Performing Organization Address City/[facility] Co de Phone Number [facility] [place] [address] * (ABNORMAL) POCT glucose (11/23/2021 12:31 PM CDT) Glucose, POC 270(H) 70 - 199 mg/dL [facility] Blood 11/23/2021 12:3 1 PM CDT 11/23/2021 12:31 PM CDT Norm Butler MD LAB POCT ORDERABLES - DEV ICE Final Result Performing Organization Address [facility] Co de Phone Number [facility] [place] [address] * (ABNORMAL) POCT glucose (11/23/2021 11:36 AM CDT) Glucose, POC 275(H) 70 - 199 mg/dL [facility] Blood 11/23/2021 11:3 6 AM CDT 11/23/2021 11:36 AM CDT Norm Butler MD LAB POCT ORDERABLES - DEV ICE Final Result Performing Organization Address City/[facility] Co de Phone Number [facility] [place] [address] * (ABNORMAL) POCT glucose (11/23/2021 10:28 AM CDT) Glucose, POC 221(H) 70 - 199 mg/dL [facility] Blood 11/23/2021 10:2 8 AM CDT 11/23/2021 10:28 AM CDT us Norm Butler MD LAB POCT ORDERABLES - DEV ICE Final Result Performing Organization Address [facility] Co de Phone Number [facility] [place] [address] * (ABNORMAL) eGFR (11/23/2021 8:20 AM CDT) eGFR >90(H) 90 - 130 mL/min/1. 73 m2 [facility] Comment: Interpretive Data Reference Interval [...] MD LAB BLOOD ORDERABLES Melina l Result [facility] [place] [address] * Troponin I high-sensitivity 4-hour (11/23/2021 8:20 AM CDT) Trop I hs <4 <=35 ng/L [facility] Comment: Interpretive Data For further hscTnI resources including the diagnostic algorithm and an aid in interpretation, copy and paste this link: https://bjhlab.testcatalog.org/show/hsTrop-1 Current Interpretive Data last revised 2019. Trop I hs delta 0 ng/L [facility] Trop I hs interp Insignificant [facility] Blood 11/23/2021 8:20 AM CDT 11/23/2021 8:45 AM CDT Radames Herrera MD LAB BLOOD ORDERABLES Melina l Result Performing Organization Address [facility] de Phone Number [facility] Department [place] [address] * (ABNORMAL) Basic metabolic panel (11/23/2021 8:20 AM CDT) Pathologist [facility] Sodium 138 135 - 145 mmol/L [facility] [...] MD LAB BLOOD ORDERABLES Melina l Result [facility] [place] [address] * POCT glucose (11/23/2021 8:07 AM CDT) Glucose, POC 184 70 - 199 mg/dL [facility] Blood 11/23/2021 8:07 AM CDT 11/23/2021 8:07 AM CDT Shae Millan MD LAB POCT ORDERABLES - ARJUN CE Final Result Performing Organization Address City/[facility]/ZIP Co de Phone Number [facility] Department [place] [address] * Troponin I high-sensitivity 2-hour (11/23/2021 6:35 AM CDT) Trop I hs <4 <=35 ng/L [facility] Comment: Interpretive Data For further [facility] resources including the diagnostic algorithm and an aid in interpretation, copy and paste this link: https://[email or web address].testcatalog.org/show/hsTrop-1 Current Interpretive Data last revised 2019. Trop I hs delta 0 ng/L [facility] Trop I hs interp Insignificant [facility] Blood 11/23/2021 6:35 AM CDT 11/23/2021 6:40 AM CDT us Radames Herrera MD LAB BLOOD ORDERABLES Melina l Result Performing Organization Address [facility] Co de Phone Number [facility] Department [place] [address] * (ABNORMAL) POCT glucose (11/23/2021 6:29 AM CDT) Glucose, POC 222(H) 70 - 199 mg/dL [facility] Blood 11/23/2021 6:29 AM CDT 11/23/2021 6:29 AM CDT us Shae Millan MD LAB POCT ORDERABLES - ARJUN CE Final Result Performing Organization Address [facility] de Phone Number [facility] [place] [address] * (ABNORMAL) eGFR (11/23/2021 4:39 AM CDT) [...] [facility] [place] [address] * (ABNORMAL) Basic metabolic panel (11/23/2021 4:39 AM CDT) Sodium 134(L) 135 - 145 mmol/L [facility] Comment:After removal of alie ss lipemia. Potassium, pl See Comment 3.3 - 4.9 mmol/L [facility] Comment:Credited; Hemolyzed Specimen Chloride 100 97 - 110 mmol/L [facility] Comment:After removal of alie ss lipemia. CO2 15(L) 22 - 32 mmol/L [facility] Comment:After removal of alie ss lipemia. Anion gap 19(H) 2 - 15 mmol/L [facility] Comment:After removal of alie ss lipemia. BUN 17 8 - 25 mg/dL [facility] Comment:After removal of alie ss lipemia. Creatinine 0.64(L) 0.80 - 1.30 mg/dL [facility] Comment:After removal of alie ss lipemia. Glucose 289(H) 70 - 199 mg/dL [facility] Comment: After removal of gross lipemia. Interpretive [...] ORDERABLES Melina l Result Performing Organization Address [facility] Co de Phone Number [facility] Department [place] [address] * Troponin I high-sensitivity series (baseline, 2hr, 4hr, 6hr) (11/23/2021 4:13 AM CDT) [facility] Trop I hs <4 <=35 ng/L [facility] Comment: Interpretive Data For further hscTnI resources including the diagnostic algorithm and an aid in interpretation, copy and paste this link: https://bjhlab.testcatalog.org/show/hsTrop-1 Current Interpretive Data last revised 2019. Blood 11/23/2021 4:13 AM CDT 11/23/2021 4:27 AM CDT Radames Herrera MD LAB BLOOD ORDERABLES Melina l Result Performing Organization Address [facility] Co de Phone Number [facility] Department [place] [address] * (ABNORMAL) POCT glucose (11/23/2021 4:12 AM CDT) Glucose, POC 321(H) 70 - 199 mg/dL [facility] Glucose comment 1 Glu2: RN/MD Notified [facility] Blood 11/23/2021 4:12 AM CDT 11/23/2021 4:12 AM CDT Jasbir Cline MD LAB POCT ORDERABLES - DEV ICE Final Result [facility] [place] [address] * COVID-19 Coronavirus RNA Nasopharyngeal (11/23/2021 2:07 AM CDT) [facility] COVID-19 RNA Negative Negative [facility] [...] . ??This test is performed using the Alleantia Xpert Xpress plus assay. This is a [...] . ??This test is performed using the Alleantia Xpert Xpress plus assay. This is a [...] L ORDERABLES Final Result Performing Organization Address City/[facility] Co de Phone Number [facility] Department [place] [address] * (ABNORMAL) POCT glucose (11/23/2021 1:58 AM CDT) [facility] Signature Glucose, POC 349(H) 70 - 199 mg/dL [facility] Glucose comment 1 Glu2: RN/MD Notified [facility] Blood 11/23/2021 1:58 AM CDT 11/23/2021 1:58 AM CDT us Jasbir Cline MD LAB POCT ORDERABLES - DEV ICE Final Result Performing Organization Address [facility] Co de Phone Number [facility] Department [place] [address] * MI CRITICAL CARE ILL/INJURED PATIENT INIT 30-74 MIN, MI CRITICAL CARE ILL/INJURED PATIENT ADDL 30 MIN [...] [facility] Department [place] [address] * (ABNORMAL) Hemoglobin A1c (11/22/2021 11:23 PM CDT) Pathologist [facility] Hgb A1C 10.9(H) 4.0 - 5.6 % [...] [facility] [place] [address] * Differential, auto (11/22/2021 11:23 PM CDT) Neutrophil abs 2.7 1.7 - 6.5 K/cumm [facility] Imm gran abs 0.1 0.0 - 0.1 [...] BLOOD ORDERABLES Final Result Performing Organization Address City/[facility] Co de Phone Number [facility] Department [place] [address] * (ABNORMAL) CBC with auto differential (11/22/2021 [...] BLOOD ORDERABLES Final Result Performing Organization Address [facility]/ZIP Co de Phone Number [facility] Department [place] [address] * eGFR (11/22/2021 11:21 PM CDT) eGFR [...] LAB BLOOD ORDERABLES Final R esult [facility] [place] [address] * (ABNORMAL) Blood gas, venous (11/22/2021 11:21 PM CDT) Pathologist [facility] pH, Venous 7.34 7.32 - 7.43 [facility] [...] [facility] [place] [address] * (ABNORMAL) Basic metabolic panel (11/22/2021 11:21 [...] ORDERABLES Melina l Result Performing Organization Address City/[facility]/ZIP Co de Phone Number [facility] Department [place] [address] * Potassium, whole blood (11/22/2021 11:21 PM CDT) Potassium, bld 4.5 3.3 - 4.9 mmol/L [facility] Blood 11/22/2021 11:2 1 PM CDT 11/22/2021 11:29 PM CDT Jasbir Cline MD LAB BLOOD ORDERABLES Melina l Result Performing Organization Address City/[facility]/ZIP Co de Phone Number [facility] Department [place] [address] * (ABNORMAL) POCT ketone (11/22/2021 11:09 PM CDT) Ketones, Blood, POC 3.9(A) 0.1 - 0.5 mmol/L Blood specimen (specimen) 11/22/2021 11:09 PM CDT Jasbir Cline MD POINT OF CARE TEST ORDERA BLES Final Result * ECG 12-LEAD (11/22/2021 11:00 PM CDT) Narrative [facility] - 11/22/2021 11:00 PM CDT Birgit [...] No significant change Birgit Rosenberg MD 11/22/21 1980 us Jasbir Cline MD ECG ORDERABLES Final Res ult [facility] * (ABNORMAL) POCT glucose (11/22/2021 10:25 PM CDT) Glucose, POC 511(C) 70 - 199 mg/dL [facility] Glucose comment 1 Glu2: [facility] Blood 11/22/2021 10:2 5 PM CDT 11/22/2021 10:25 PM CDT us Notinfile Unknown LAB POCT ORDERABLES - DEVICE F inal Result [facility] [place] [address] documented in this encounter Visit Diagnoses Diagnosis [...] infusion 150 mL/hr, intravenous, Continuous, Starting on [facility] 11/23/21 at 1012, Start when blood glucose [...] glucose less than 70 mg/dL, Starting on [facility] 11/23/21 at 1009, If patient is alert [...] mg (COMPLETED) 1,000 mg, oral, Once, On [place]ana 11/23/21 at 0837, For 1 dose 0927 [...] mg/dL. 0056 (New Bag - Provider: Elisa Mna RN)0130 (Stopped - Provider: Elisa Man RN) [...] Stanton RN)1140 (Rate/Dose Change - Provider: Lin Stanotn RN)1343 (Rate/Dose Change - Provider: Lin Stanton RN) 0107 (Continue to Inpatient Floor - Provider: Marnie Hensley, BRYANNA)0108 (Continued after Discharge - Provider: Marnie Hensley, BRAYNNA) PRN Medication Order 11/22/2021 11/23/2021 11/24/2021 dextrose [...] 11/22/2021 documented in this encounter Care Teams Financial Planning Advisor Relationship Specialty Start Date End Date Keila Jimenez MD [address] [place] [address] PCP - General 10/29/21 Mariana Monique MD [address] [place] [address] Referring Physician Internal Medicine 01/17/20 documented as of this encounter
--- OUTSIDE RECORDS SUMMARY | 2024-05-10 20:21 | XMS_ITS | Encounter Summary ---
Author Organization [facility] Address [address] [place] [address] Phone Care Team Providers Care Counter Clerk [employer] Name Role Phone Jann Burrows MD Primary Care Provider [phone] Mariana Monique MD Unavailable [phone] Encounter Details Date Type Department Care Team (Latest Contact Info) Description 06/02/2020 4:20 PM PARAPLANNER Office Visit [facility] Endocrinology Metabolism and Lipid [address] [facility] Advanced Medicine 5th [place] [address] [place] [address] Peter Styles Jr., MD [address] [place] [address] Type 2 diabetes mellitus without complication, with [...] on file Legal Sex Male 5:01 AM PARAPLANNER Gender Identity Male 12/18/2017 12:38 PM CDT Sexual Orientation Not on file 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 Not on file Not on file documented as of this encounter Last Filed Vital Signs Vital Sign Reading Time Taken Comments Blood Pressure 99/63 06/02/2020 4:15 PM PARAPLANNER Pulse 85 06/02/2020 4:15 PM PARAPLANNER Temperature 36.4 ??C (97.6 ??F) 06/02/2020 4:15 PM CS T Respiratory Rate - - Oxygen Saturation - - Inhaled Oxygen Concentration - - Weight 175.5 kg (387 lb) 06/02/2020 4:15 PM PARAPLANNER Height 200.7 cm (6' 7 ) 06/02/2020 4:15 PM PARAPLANNER Body Mass Index 43.6 06/02/2020 4:15 PM PARAPLANNER documented in this encounter Patient Instructions * Patient Instructions* Peter Styles MD - 06/02/2020 4:20 PM PARAPLANNER 1. Take 130 U500 at 8am and 8 pm. 2. Take 20 Novolog three times daily with meals. 3. We may need to increase both U500 and the Novolog with time. 4. Try this for a week and send us you glucose levels by [employer]. 5. You need to have labs today here. 6. You need an eye appointment to look for diabetic retinopathy. PLANNER PLANNER documented in this encounter Progress Notes * [...] needs more insulin overall. RTC 4 months. PLANNER documented in this encounter Miscellaneous Notes * Addendum Note - Rosalino Graham - 06/02/2020 4:20 PM CSTAddended by: ROSALINO GRAHAM on: 06/02/2020 05:27 PM Modules accepted: Orders PLANNER documented in this encounter Plan of Treatment Not on file documented as of this encounter Procedures Procedure Name Priority Date/Time Associated Diagnosis Comments POCT HEMOGLOBIN A1C Routine 06/02/2020 4 :17 PM PARAPLANNER Diabetic ketoacidosis without coma associated with other specified diabetes mellitus ([facility]/HCC) POCT GLUCOSE Routine 06/02/2020 4:17 PM PARAPLANNER Diabetic ketoacidosis without coma associated with other specified diabetes mellitus ([facility]/HCC) documented in this encounter Results * Albumin Creatinine Ratio, Urine (06/02/2020 5:27 PM PARAPLANNER) Albumin Ur 51.3 mg/L [facility] Comment: Interpretive Data No reference range established. Current interpretive data was last revised 2018. Creatinine Ur 287.1 mg/dL [facility] Comment: Interpretive Data No reference range established. Current interpretive data was last revised 2018. Albumin Creatinine Ratio, Ur 18 1 - 29 mg/g [facility] Urine 06/02/2020 5:27 PM PARAPLANNER 06/02/2020 5:51 PM PARAPLANNER us Peter Styles Jr., MD LAB URINE ORDERABLES Final Result [facility] [place] [address] * (ABNORMAL) Lipid panel (06/02/2020 5:27 PM PARAPLANNER) Cholesterol 250(H) 30 - 199 mg/dL [facility] Comment: Interpretive Data Ages < or = [...] on 2017. Triglycerides 1,672(H) <=149 mg/dL [facility] Comment: Hemolyzed; result may be falsely elevated [...] revised on 2017. HDL 19(L) >=40 mg/dL [facility] Comment: Interpretive Data Ages < or = [...] on 2017. LDL, calculated See Comment <=129 [facility] Comment: Unable to calculate LDL due to [...] revised on 2017. Non-HDL Cholesterol 231 mg/dL [facility] Comment: Interpretive Data Ages < [...] last revised on 2017. Chol/HDL ratio 13 [facility] Blood specimen (specimen) 06/02/2020 5:27 PM PARAPLANNER 06/02/2020 5:50 PM PARAPLANNER Narrative [facility] - 06/02/2020 6:38 PM PARAPLANNER These lab test should be done fasting. This means do not eat or drink for at least 12 hours prior to getting your blood drawn. Has the patient been fasting for 8 hours or more?->No non fasting Peter Styles Jr., MD LAB BLOOD ORDERABLES Final Result [facility] Department [place] [address] * POCT glucose (06/02/2020 4:17 PM PARAPLANNER) Glucose Blood, POC 142 mg/dL Blood specimen (specimen) 06/02/2020 4:17 PM PARAPLANNER us Peter Styles Jr., MD POINT OF CARE TEST OR DERABLES Final Result * POCT hemoglobin A1c (06/02/2020 4:17 PM PARAPLANNER) Hemoglobin A1C, POC 11.5 Blood specimen (specimen) 06/02/2020 4:17 PM PARAPLANNER Peter Styles Jr., MD POINT OF CARE [...] (HCC) documented in this encounter Care Teams Counter Clerk [employer] Relationship Specialty Start Date End Date Jann Burrows MD [address] [place], [place] [id number] PCP - General Hematology 03/13/19 10/28/21 Mariana Monique MD [address] [place] [address] Referring Physician Internal Medicine 01/17/20 documented as of this encounter
--- OUTSIDE RECORDS SUMMARY | 2024-05-10 20:21 | XMS_ITS | Encounter Summary ---
Author Organization [facility] Address [address] [place] [address] Phone Care Team Providers Care Notereader Name Role Phone Jann Burrows MD Primary Care Provider [phone] Mariana Monique MD Unavailable [phone] Encounter Details Date Type Department Care Team (Late st Contact Info) Description 01/04/2020 Telephone [facility] Cardiology [address] [facility] Medicine 8th [place] [address] [place] [address] Annika Sutherland Social History Tobacco Use Types Packs/Day Years Used Date Smoking Tobacco: Every Day Cigarettes Smokeless Tobacco: Current Chew Alcohol Use Standard Drinks/Week Comments Yes 24 (1 standard drink = 0.6 oz pu re alcohol) CAGE negative. Case per week. 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
--- OUTSIDE RECORDS SUMMARY | 2024-05-10 20:21 | XMS_ITS | Encounter Summary ---
Author Organization [facility] Address [address] [place] [address] Phone Care Team Providers Care Float Phlebotomist Name Role Phone Jann Burrows MD Primary Care Provider [phone] Mariana Monique MD Unavailable [phone] Encounter Details Date Type Department Care Team (Latest Contact Info) Description 10/13/2020 4:40 PM CDT Office Visit [facility] Endocrinology Metabolism and Lipid [address] [facility] Advanced Medicine 5th [place] [address] [place] [address] Peter Styles Jr., MD [address] [place] [address] Essential hypertension (Primary Dx); Diabetic ketoacidosis without [...] on file Legal Sex Male 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 He has an up-to-date urine microalbumin which was normal. He has referral to the microstrategy reports developer but has not yet been seen. Had [...] Morbid obesity with BMI of 50.0-59.9, adult ([facility]) Counseled on weight loss and exercise - [...] coma associated with other specified diabetes mellitus ([facility]) documented in this encounter Results * (ABNORMAL) Comprehensive metabolic panel (10/13/2020 5:58 PM CDT) Sodium 139 135 - 145 mmol/L [facility] Potassium, pl 4.5 3.3 - 4.9 mmol/L [facility] Chloride 102 97 - 110 mmol/L [facility] CO2 28 22 - 32 mmol/L [facility] Anion gap 9 2 - 15 mmol/L [facility] BUN 17 8 - 25 mg/dL [facility] Creatinine 0.92 0.80 - 1.30 mg/dL [facility] Glucose 98 70 - 199 mg/dL [facility] Comment: Interpretive Data Fasting [...] 2017. Calcium 9.8 8.5 - 10.3 mg/dL [facility] Bilirubin, total 0.4 0.1 - 1.2 mg/dL [facility] Protein, pl 8.3 6.5 - 8.5 g/dL [facility] Albumin 5.1(H) 3.5 - 5.0 g/dL [facility] Alk phos 69 40 - 130 Units/L [facility] ALT 39 7 - 55 Units/L [facility] AST 34 10 - 50 Units/L [facility] Blood specimen (specimen) 10/13/2020 5:58 PM CDT 10/13/2020 6:09 PM CDT us Radames Burroughs MD PhD LAB BLOOD ORDERABLE S Final Result [facility] Department [place] [address] * (ABNORMAL) Lipid panel (10/13/2020 5:58 PM CDT) Cholesterol 194 30 - 199 mg/dL [facility] Comment: Interpretive Data Ages < or [...] on 2017. Triglycerides 245(H) <=149 mg/dL [facility] Comment: Interpretive Data Ages < or [...] on 2017. HDL 34(L) >=40 mg/dL [facility] Comment: Interpretive Data Ages < or [...] on 2017. Non-HDL Cholesterol 160 mg/dL [facility] Comment: Interpretive [...] revised on 2017. Chol/HDL ratio 6 [facility] Blood specimen (specimen) 10/13/2020 5:58 PM CDT 10/13/2020 6:09 PM CDT us Radames Burroughs MD PhD LAB BLOOD ORDERABLE S Final Result [facility] Department [place] [address] * POCT hemoglobin A1c (10/13/2020 5:23 PM [...] chemistry documented in this encounter Care Teams Float Phlebotomist Relationship Specialty Start Date End Date Jann Burrows MD [address] [place] [address] PCP - General Hematology 03/13/19 10/28/21 Mariana Monique MD [address] [place] [address] Referring Physician Internal Medicine 01/17/20 documented as of this encounter
--- OUTSIDE RECORDS SUMMARY | 2024-05-10 20:21 | XMS_ITS | Encounter Summary ---
Author Organization [facility] Address [address] [place] [address] Phone Care Team Providers Care Organic Preparation Technician Name Role Phone Jann Burrows MD Primary Care Provider [phone] Mariana Monique MD Unavailable [phone] Reason for Visit * Reason Onset Date Comments Med Refill 02/10/2020 Encounter Details Date Type Department Care Team (Late st Contact Info) Description 02/10/2020 Telephone [facility] Cardiology [facility] Advanced Medicine 8th [place] [address] [place] [address] Annika Sutherland Med Refill Social History Tobacco Use Types Packs/Day Years Used Date Smoking Tobacco: Never Smokeless Tobacco: Former Chew Quit: 01/13/2019 Alcohol Use Standard Drinks/Week Comments Not Currently 0 (1 standard drink = 0.6 oz pur e alcohol) Sex and Gender Information Value Date Recorded Sex Assigned at Not on file Legal Sex Male 5:01 AM COMMUNITY 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
--- OUTSIDE RECORDS SUMMARY | 2024-05-10 20:21 | XMS_ITS | Encounter Summary ---
Author Organization [facility] Address [address] [place] [address] Phone Care Team Providers Care Produce Manager Name Role Phone Jann Burrows MD Primary Care Provider [phone] Mariana Monique MD Unavailable [phone] Encounter Details Date Type Department Care Team (Late st Contact Info) Description 12/31/2019 Orders Only [facility] Endocrinology Metabolism and Lipid [address] [facility] Advanced Medicine 5th [place] [address] [place] [address] Peter Styles Jr., MD [address] [place] [address] Type 2 diabetes mellitus with ketoacidosis without coma, without long-term current use of insulin ([facility]) (Primary Dx) Social History Tobacco Use Types Packs/Day Years Used Date Smoking Tobacco: Every Day Cigarettes Smokeless Tobacco: Current Chew Alcohol Use Standard Drinks/Week Comments Yes 24 (1 standard drink = 0.6 oz pu re alcohol) CAGE negative. Case per week. 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 I suggested the followin. CMP, A1c, [...] Sodium 134(L) 135 - 145 mmol/L [facility] Potassium, pl 4.2 3.3 - 4.9 mmol/L [facility] Chloride 97 97 - 110 mmol/L [facility] CO2 23 22 - 32 mmol/L [facility] Anion gap 14 2 - 15 mmol/L [facility] BUN 17 8 - 25 mg/dL [facility] Creatinine 0.81 0.80 - 1.30 mg/dL [facility] Glucose 281(H) 70 - 199 mg/dL [facility] Comment: Interpretive Data Fasting glucose >/= [...] Calcium 10.0 8.5 - 10.3 mg/dL [facility] Bilirubin, total 0.4 0.1 - 1.2 mg/dL [facility] Protein, pl 7.8 6.5 - 8.5 g/dL [facility] Albumin 4.5 3.5 - 5.0 g/dL [facility] Alk phos 98 40 - 130 Units/L [facility] ALT 114(H) 7 - 55 Units/L [facility] AST 81(H) 10 - 50 Units/L [facility] Blood specimen (specimen) 12/31/2019 5:55 PM CDT 12/31/2019 6:15 PM CDT us Peter Styles Jr., MD LAB BLOOD ORDERABLES Final Result Performing Organization Address City/[facility] [place] [address] * TSH (12/31/2019 5:55 PM CDT) [facility] Thyroid Stimulating Hormone 1.54 0.30 - 4.20 mcIUnit/mL [facility] Blood specimen (specimen) 12/31/2019 5:55 PM CDT 12/31/2019 6:15 PM CDT Peter Styles Jr., MD LAB BLOOD ORDERABLES Final Result Performing Organization Address [facility] [place] [address] * (ABNORMAL) Hemoglobin A1c (12/31/2019 5:55 PM CDT) [facility] Hgb A1C 8.7(H) 4.0 - 5.6 % [facility] Estimated Average Glucose 203 mg/dL [facility] Comment: The ADA recommends reporting an estimated Average Glucose (eAG) with all Hemoglobin A1c results using the equation derived from a study of 507 normal and diabetic adults. ??Minority populations were underrepresented and children were not included. ?? (Diabetes Care 31:3482-7296, 2008). ??The eAG is not equivalent to a fasting glucose. Blood specimen (specimen) 12/31/2019 5:55 PM CDT 12/31/2019 6:15 PM CDT us Peter Styles Jr., MD LAB BLOOD ORDERABLES Final Result Performing Organization Address [facility] [place] [facility] [place] [address] * (ABNORMAL) CBC with auto differential (12/31/2019 5:55 PM CDT) [facility] WBC 5.8 3.8 - 9.9 K/cumm [facility] Hgb 15.6 13.0 - 17.5 g/dL [facility] Hct 43.1 38.9 - 50.3 % [facility] Plt 327 150 - 400 K/cumm [facility] MPV 9.9 9.1 - 12.3 fL [facility] RBC 5.21 4.30 - 5.80 M/cumm [facility] MCV 82.7 81.3 - 96.4 fL [facility] MCH 29.9 27.1 - 33.3 pg [facility] MCHC 36.2(H) 32.3 - 35.7 g/dL [facility] RDW CV 12.3 11.1 - 14.9 % [facility] RDW SD 36.9 35.7 - 48.1 fL [facility] NRBC abs 0.00 0.00 - 0.01 K/cumm [facility] Blood specimen (specimen) 12/31/2019 5:55 PM CDT 12/31/2019 6:15 PM CDT us Peter Styles Jr., MD LAB BLOOD ORDERABLES Final Result Performing Organization Address City/[facility]/ZIP Co de Phone Number [facility] [place] [address] * Beta-hydroxybutyrate (12/31/2019 5:55 PM CDT) [facility] Beta-Hydroxybut yrate 0.1 0.0 - 0.5 mmol/L [facility] Blood specimen (specimen) 12/31/2019 5:55 PM CDT 12/31/2019 6:15 PM CDT us Peter Styles Jr., MD LAB BLOOD ORDERABLES Edited Result - Final Performing Organization Address [facility] [place] [facility]/ZIP Co de Phone Number [facility] [place] [address] * Insulin antibody (12/31/2019 5:55 PM CDT) Insulin ab 0.00 0.00 - 0.02 nmol/L [facility] Comment: ADDITIONAL INFORMATION This test was developed and its performance characteristics determined by [facility] in a manner consistent with CLIA requirements. This test has not been cleared or approved by the U.S. Food and Drug Administration. Test Performed by: [facility] - [address] [address] Laundry Bag Punch Operator: Josiah Turk M.D. Ph.D.; CLIA# [id number] Blood specimen (specimen) 12/31/2019 5:55 PM CDT 12/31/2019 6:31 PM CDT Peter Styles Jr., MD LAB BLOOD ORDERABLES Final Result [facility] Department [place] [address] documented in this encounter Visit Diagnoses Diagnosis [...] documented as of this encounter Care Teams Produce Manager Relationship Specialty Start Date End Date Jann Burrows MD [address] [facility] [address] [place] [address] PCP - General Hematology 03/13/19 10/28/21 Mariana Monique MD [address] [place] [address] Referring Physician Internal Medicine 01/17/20 documented as of this encounter
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
--- OUTSIDE RECORDS SUMMARY | 2024-05-10 20:21 | XMS_ITS | Encounter Summary ---
Author Organization [facility] Address [address] [facility] [address] [place] [address] Care Team Providers Care Guest Relations Receptionist Name Role Phone Jann Burrows MD Primary Care Provider [phone] Mariana Monique MD Unavailable [phone] Reason for Visit * Reason Onset Date Comments Covid-19 Home Monitoring 01/24/2020 Encounter Details Date Type Department Care Team (Late st Contact Info) Description 01/24/2020 Telephone [facility] Post Acute Care [address] [facility] [address], [place] [address] Hilda Linares MA [address] [place] [id number] Covid-19 Home Monitoring Social History Tobacco Use Types Packs/Day Years Used Date Smoking Tobacco: Never Smokeless Tobacco: Former Chew Quit: 01/13/2019 Alcohol Use Standard Drinks/Week Comments Not Currently 0 (1 standard drink = 0.6 oz pur e alcohol) Sex and Gender Information Value Date Recorded Sex Assigned at Not on file 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
--- OUTSIDE RECORDS SUMMARY | 2024-05-10 20:21 | XMS_ITS | Encounter Summary ---
Author Organization [facility] Healthcare Address [address] [place] [address] Care Team Providers Care President Educational Institution Name Role Phone Jann Burrows MD Primary Care Provider [phone] Mariana Monique MD Unavailable [phone] Reason for Visit * Reason Onset Date Comments Follow-up 01/25/2020 Encounter Details Date Type Department Care Team (Late st Contact Info) Description 01/25/2020 Telephone [facility] Primary Care Medicine Clinic [address] [facility] [address] [place] [address] Jann Burrows MD [address] [facility] [address] [place] [address] Follow-up Social History Tobacco Use Types Packs/Day Years Used Date Smoking Tobacco: Never Smokeless Tobacco: Former Chew Quit: 01/13/2019 Alcohol Use Standard Drinks/Week Comments Not Currently 0 (1 standard drink = 0.6 oz pur e alcohol) Sex and Gender Information Value Date Recorded Sex Assigned at Not on file 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 Jose [phone] * Telephone Encounter - Jose Saavedra - 01/25/2020 1:[address] Burrows, Patient is calling to request a return to work letter, he was out due to COVID- 19 and he has been symptom free for a week. Patient has been out of work since 01/11/20. He would like to return as soon as possible. Please follow up. Patient contact: [phone] Thanks Jose [phone] documented in this encounter Plan of Treatment Not on file documented as of this encounter Visit Diagnoses Not on filedocumented in this encounter Additional Health Concerns Infection Onset Date Last Indicated Resolved Time COVID19 01/15/2020 01/15/2020 01/31/2020 3:06 AM CDT documented as of this encounter Care Teams President Educational Institution Relationship Specialty Start Date End Date Jann Burrows MD [address] [place] [address] PCP - General Hematology 03/13/19 10/28/21 Mariana Monique MD [address] [place] [address] Referring Physician Internal Medicine 01/17/20 documented as of this encounter
--- OUTSIDE RECORDS SUMMARY | 2024-05-10 20:22 | XMS_ITS | Encounter Summary ---
Author Organization [facility] Address [address] [place] [address] Phone Care Team Providers Care Codifier Name Role Phone Jann Burrows MD Primary Care Provider [phone] Reason for Visit * Reason Onset Date Comments Telehealth 09/23/2019 Encounter Details Date Type Department Care Team (Late st Contact Info) Description 09/23/2019 Telephone [facility] Endocrinology Metabolism and Lipid [address] [facility] 5th [place] [address] [place] [address] Moira Kelly MA Telehealth Social History Tobacco Use Types Packs/Day Years Used Date Smoking Tobacco: Never Smokeless Tobacco: Never Alcohol Use Standard Drinks/Week Comments Yes 24 (1 standard drink = 0.6 oz pu re alcohol) CAGE negative. Case per week. 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
--- OUTSIDE RECORDS SUMMARY | 2024-05-10 20:22 | XMS_ITS | Encounter Summary ---
Author Organization [facility] Address [address] [place] [address] Phone Care Team Providers Care Automatic Mounter Name Role Phone Jann Burrows MD Primary Care Provider [phone] Encounter Details Date Type Department Care Team (Late st Contact Info) Description 03/30/[address] [facility] Endocrinology Metabolism and Lipid [address] [facility] 5th [place] [address] [place] [phone] Emilie Mclean RN Social History Tobacco Use Types Packs/Day Years Used Date Smoking Tobacco: Never Smokeless Tobacco: Never Alcohol Use Standard Drinks/Week Comments Yes 24 (1 standard drink = 0.6 oz pu re alcohol) CAGE negative. Case per week. 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 OMIC MANAGER * Telephone Encounter - Peter Styles MD - 03/31/2019 6:33 AM ECONOMIC MANAGER We are trying to simplify his regimen and use the lowest amount of insulin needed. He should be offlispro and just on metformin 1000 mg BID and U500 insulin 90 TID. Please have him try 85 units TID for a week and then go to 80 TID if there is no rise in glucoses. Thanks. OMIC MANAGER * Telephone Encounter - Emilie Mclean RN - 03/30/2019 4:57 PM ECONOMIC MANAGER Spoke with patient regarding his u500 prescription. He states he has been taking 90u TID. He said his am blood sugars are 90-100. Said at lunch and dinner they are typically 110-120. He wants to know if he can stay on that dose? Thanks OMIC MANAGER documented in this encounter Plan of Treatment Not on file documented as of this encounter Visit Diagnoses Not on filedocumented in this encounter Care Teams Automatic Mounter Relationship Specialty Start Date End Date Jann Burrows MD [address] [facility] [address] [place] [address] PCP - General Hematology 03/13/19 10/28/21 documented as of this encounter
--- OUTSIDE RECORDS SUMMARY | 2024-05-10 20:22 | XMS_ITS | Encounter Summary ---
Author Organization [facility] Address [address] [place] [address] Phone Care Team Providers Care Optoelectronics Engineer Name Role Phone Jnan Burrows MD Primary Care Provider [phone] Mariana Monique MD Unavailable [phone] Keila Jimenez MD Primary Care Provider Encounter Details Date Type Department Care Team (Late st Contact Info) Description 09/24/2019 Telephone [facility] Endocrinology Metabolism and Lipid [address] [place] [address] [place] [address] Noemí Najera LPN Social History [...] often do you attend chur ch or congregation services? 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
--- OUTSIDE RECORDS SUMMARY | 2024-05-10 20:22 | XMS_ITS | Encounter Summary ---
Author Organization [facility] Address [address] [place] [address] Phone Care Team Providers Care Machine Operator General Name Role Phone Jann Burrows MD Primary Care Provider [phone] Encounter Details Date Type Department Care Team (Late st Contact Info) Description 11/18/2019 Telephone [facility] Endocrinology Metabolism and Lipid [address] [facility] 5th [place] [address] [place] [address] Beverley Javed CNMT Social History Tobacco Use Types Packs/Day Years Used Date Smoking Tobacco: Never Smokeless Tobacco: Never Alcohol Use Standard Drinks/Week Comments Yes 24 (1 standard drink = 0.6 oz pu re alcohol) CAGE negative. Case per week. 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 documented in this encounter Plan of Treatment Not on file documented as of this encounter Visit Diagnoses Not on filedocumented in this encounter Care Teams Machine Operator General Relationship Specialty Start Date End Date Jann Burrows MD [address] [place] [address] PCP - General Hematology 03/13/19 10/28/21 documented as of this encounter
--- OUTSIDE RECORDS SUMMARY | 2024-05-10 20:22 | XMS_ITS | Encounter Summary ---
Author Organization [facility] Healthcare Address [address] [place] [address] Care Team Providers Care Company Secretary Name Role Phone Jann Burrows MD Primary Care Provider [phone] Encounter Details Date Type Department Care Team (Late st Contact Info) Description 08/11/2019 Patient Self-Triage [facility] HealthCare/[facility] [address] [place] [address] Mycphilt, Generic Provider [address] [place] [address] Social History Tobacco Use Types Packs/Day Years Used Date Smoking Tobacco: Never Smokeless Tobacco: Never Alcohol Use Standard Drinks/Week Comments Yes 24 (1 standard drink = 0.6 oz pu re alcohol) CAGE negative. Case per week. 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
--- OUTSIDE RECORDS SUMMARY | 2024-05-10 20:22 | XMS_ITS | Encounter Summary ---
Author Organization [facility] Address [address] [place] [address] Phone Care Team Providers Care Liability Claims Adjuster Name Role Phone Jann Burrows MD Primary Care Provider [phone] Encounter Details Date Type Department Care Team (Late st Contact Info) Description 09/23/2019 Telephone [facility] Endocrinology Metabolism and Lipid [address] [facility] 5th [place] [address] [place] [address] Jeimy White Social History Tobacco Use Types Packs/Day Years Used Date Smoking Tobacco: Never Smokeless Tobacco: Never Alcohol Use Standard Drinks/Week Comments Yes 24 (1 standard drink = 0.6 oz pu re alcohol) CAGE negative. Case per week. 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
--- OUTSIDE RECORDS SUMMARY | 2024-05-10 20:22 | XMS_ITS | Encounter Summary ---
Author Organization [facility] Healthcare Address [address] [place] [address] Care Team Providers Care Manual Qa Tester Name Role Phone Jann Burrows MD Primary Care Provider [phone] Reason for Visit * Reason Onset Date Comments Follow-up 10/26/2019 Encounter Details Date Type Department Care Team (Late st Contact Info) Description 10/26/2019 Telephone [facility] Primary Care Medicine Clinic [address] [facility] [address] [place], [place] [id number] Jann Burrows MD [address] [facility] [address] [place], [place] [id number] Follow-up Social History Tobacco Use Types Packs/Day Years Used Date Smoking Tobacco: Never Smokeless Tobacco: Never Alcohol Use Standard Drinks/Week Comments Yes 24 (1 standard drink = 0.6 oz pu re alcohol) CAGE negative. Case per week. 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 Burrows, Patient requesting a referral for foot care, he states he has ingrown toe nails. Please follow up with patient at [phone]. Jose Campoverde [phone] documented in this encounter Plan of Treatment Not on file documented as of this encounter Visit Diagnoses Not on filedocumented in this encounter Care Teams Manual Qa Tester Relationship Specialty Start Date End Date Jann Burrows MD [address] [facility] [address] [place] [address] PCP - General Hematology 03/13/19 10/28/21 documented as of this encounter
--- OUTSIDE RECORDS SUMMARY | 2024-05-10 20:22 | XMS_ITS | Encounter Summary ---
Author Organization [facility] Healthcare Address [address] [place] [address] Care Team Providers Care Fish Hatchery Superintendent Name Role Phone Jann Burrows MD Primary Care Provider Encounter Details Date Type Department Care Team (Late st Contact Info) Description 08/03/2019 Patient Self-Triage [facility] HealthCare/ Physicians [address] [place] [address] Mychart, Generic Provider [address] [place] [address] Social History Tobacco Use Types Packs/Day Years Used Date Smoking Tobacco: Never Smokeless Tobacco: Never Alcohol Use Standard Drinks/Week Comments Yes 24 (1 standard drink = 0.6 oz pu re alcohol) CAGE negative. Case per week. 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
--- OUTSIDE RECORDS SUMMARY | 2024-05-10 20:22 | XMS_ITS | Encounter Summary ---
Author Organization [facility] Healthcare Address [address] [place] [address] Care Team Providers Care Senior Front End Web Developer Name Role Phone Jann Burrows MD Primary Care Provider [phone] Encounter Details Date Type Department Care Team (Late st Contact Info) Description 08/11/[address] [facility] Primary Care Medicine Clinic [address] [facility] [address] [place], [place] [id number] Karla Rossi MD [address] [facility] [address] [place] [address] Social History Tobacco Use Types Packs/Day Years Used Date Smoking Tobacco: Never Smokeless Tobacco: Never Alcohol Use Standard Drinks/Week Comments Yes 24 (1 standard drink = 0.6 oz pu re alcohol) CAGE negative. Case per week. 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 [...] on filedocumented in this encounter Care Teams Senior Front End Web Developer Relationship Specialty Start Date End Date Jann Burrows MD [address] [facility] [address] [place] [address] PCP - General Hematology 03/13/19 10/28/21 documented as of this encounter
--- OUTSIDE RECORDS SUMMARY | 2024-05-10 20:22 | XMS_ITS | Encounter Summary ---
Author Organization [facility] Healthcare Address [address] [place] [address] Care Team Providers Care Sports Administrator Name Role Phone Jann Burrows MD Primary Care Provider [phone] Encounter Details Date Type Department Care Team (Late st Contact Info) Description 08/11/2019 Telephone [facility] Primary Care Medicine Clinic [address] [facility] [address] [place], [place] [id number] Karla Rossi MD [address] [facility] [address] [place] [address] Social History Tobacco Use Types Packs/Day Years Used Date Smoking Tobacco: Never Smokeless Tobacco: Never Alcohol Use Standard Drinks/Week Comments Yes 24 (1 standard drink = 0.6 oz pu re alcohol) CAGE negative. Case per week. 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 He is agreeable to this. I will call him back in 30mins to follow-up on hotline decision and go from there. documented in this encounter Plan of Treatment Not on file documented as of this encounter Visit Diagnoses Not on filedocumented in this encounter Care Teams Sports Administrator Relationship Specialty Start Date End Date Jann Burrows MD [address] [place] [address] PCP - General Hematology 03/13/19 10/28/21 documented as of this encounter
--- OUTSIDE RECORDS SUMMARY | 2024-05-10 20:22 | XMS_ITS | Encounter Summary ---
Author Organization [facility] Healthcare Address [address] [place] [address] Care Team Providers Care Land Acquisition Specialist Name Role Phone Jann Burrows MD Primary Care Provider [phone] Encounter Details Date Type Department Care Team (Late st Contact Info) Description 08/03/2019 Patient Self-Triage [facility] HealthCare/ Physicians [address] [place] [address] Mychart, Generic Provider [address] [place] [address] Social History Tobacco Use Types Packs/Day Years Used Date Smoking Tobacco: Never Smokeless Tobacco: Never Alcohol Use Standard Drinks/Week Comments Yes 24 (1 standard drink = 0.6 oz pu re alcohol) CAGE negative. Case per week. 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
--- OUTSIDE RECORDS SUMMARY | 2024-05-10 20:22 | XMS_ITS | Encounter Summary ---
Author Organization [facility] Address [address] [place] [address] Phone Care Team Providers Care Merchandise Carrier Name Role Phone Jann Burrows MD Primary Care Provider [phone] Reason for Visit * Reason Onset Date Comments Prior Auth 08/17/2019 Prior Auth Metfo rmin 500 mg tablets Encounter Details Date Type Department Care Team (Late st Contact Info) Description 08/17/2019 Telephone [facility] Endocrinology Metabolism and Lipid [address] [facility] 5th [place] [address] [place] [address] Noemí Najera LPN Prior Auth [...] on file Legal Sex Male 5:01 AM TOURS HOSTESS Gender Identity Male 12/18/2017 12:38 PM CDT Sexual Orientation Not on file 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 Not on file Not [...] - 08/17/2019 9:02 AM CDT surescripts [id number] [phone] [id number] documented in this encounter Plan of Treatment Not on file documented as of this encounter Visit Diagnoses Not on filedocumented in this encounter Additional Health Concerns Infection Onset Date Last Indicated Resolved Time COVID: Suspected 08/11/2019 08/11/2019 08/25/2019 3:06 AM CDT documented as of this encounter Care Teams Merchandise Carrier Relationship Specialty Start Date End Date Jann Burrows MD [address] [facility] [address] [place] [address] PCP - General Hematology 03/13/19 10/28/21 documented as of this encounter
--- OUTSIDE RECORDS SUMMARY | 2024-05-10 20:22 | XMS_ITS | Encounter Summary ---
Author Organization [facility] Healthcare Address [address] [place] [address] Care Team Providers Care Dealer Accounts Investigator Name Role Phone Jann Burrows MD Primary Care Provider [phone] Encounter Details Date Type Department Care Team (Late st Contact Info) Description 08/11/2019 Telephone [facility] Primary Care Medicine Clinic [address] [facility] [address] [place], [place] [id number] Karla Rossi MD [address] [facility] [address] [place] [address] Social History Tobacco Use Types Packs/Day Years Used Date Smoking Tobacco: Never Smokeless Tobacco: Never Alcohol Use Standard Drinks/Week Comments Yes 24 (1 standard drink = 0.6 oz pu re alcohol) CAGE negative. Case per week. 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 Sympathized with patient that he won't be [...] documented as of this encounter Care Teams Dealer Accounts Investigator Relationship Specialty Start Date End Date Jann Burrows MD [address] [facility] [address] [place] [address] PCP - General Hematology 03/13/19 10/28/21 documented as of this encounter
--- OUTSIDE RECORDS SUMMARY | 2024-05-10 20:22 | XMS_ITS | Encounter Summary ---
Author Organization [facility] Healthcare Address [address] [place] [address] Care Team Providers Care Cylinder Press Operator Name Role Phone Jann Burrows MD Primary Care Provider Reason for Visit * Reason Comments Hospital Follow Up EDV BS 31 Encounter Details Date Type Department Care Team (Late st Contact Info) Description 05/27/2019 8:15 AM INSURANCE SALES ASSISTANT Office Visit 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 file Not on file documented as of this encounter Last Filed Vital Signs Vital Sign Reading Time Taken Comments Blood Pressure 151/89 05/27/2019 8:10 AM INSURANCE SALES ASSISTANT Pulse 70 05/27/2019 8:10 AM INSURANCE SALES ASSISTANT Temperature - - Respiratory Rate 18 05/27/2019 8:10 AM INSURANCE SALES ASSISTANT Oxygen Saturation 94% 05/27/2019 8:10 AM INSURANCE SALES ASSISTANT Inhaled Oxygen Concentration - - Weight 215.1 kg (474 lb 4.8 oz) 05/27/2019 8:10 AM INSURANCE SALES ASSISTANT Height 200.7 cm (6' 7 ) 05/27/2019 8:10 AM INSURANCE SALES ASSISTANT Body Mass Index 53.43 05/27/2019 8:10 AM INSURANCE SALES ASSISTANT documented in this encounter Patient Instructions * Patient Instructions* Shannan Zavala MD - 05/27/2019 8:15 AM INSURANCE SALES ASSISTANT Images from the original note were not included. Please start taking 75 units of insulin three times a day for a week, then take 70 units three times daily afterwards. Follow up with your heart and endocrine doctors. Patient Education Hypertension OUTSIDE COLLECTOR: Hypertension is high blood pressure (BP). Your [...] balance. Check labels to find low-sodium or hh-yftz-[id number] foods. Some low-sodium foods use potassium salts [...] ask them during your visits. ?? 2017 [employer] Information is for End User's use only and may not be sold, redistributed or otherwise used for commercial purposes. All illustrations and images included in CareNotes?? are the copyrighted property of [employer]. or [employer]. The above information is an pathology laboratory aide only. It is not intended as medical advice for individual conditions or treatments. Talk to your doctor, nurse or pharmacist before following any medical regimen to see if it is safe and effective for you. RANCE SALES ASSISTANT RANCE SALES ASSISTANT documented in this encounter Ordered Prescriptions Prescription [...] records for this as it was at [facility]. He notes waking up in the hospital [...] Morbid obesity with BMI of 50.0-59.9, adult ([facility]) 07/10/2017 ALLERGIES AND DRUG REACTIONS No Known Allergies SOCIAL AND FUNCTIONAL HISTORY Social History Socioeconomic History ??? Marital status: Single Spouse name: Not on file ??? Number of children: Not on file ??? Years of education: Not on file ??? Highest education level: Not on file Occupational History ??? 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 Financial resource strain: Not [...] file Gets together: Not on file Attends christianity service: Not on file Active member of [...] q.d.. Will reach out to the patient's medical manager regarding his carvedilol. He has a history of asymmetric septal hypertrophy, however were concerned thathis Coreg is masking his hypoglycemia symptoms. We will defer this to his medical manager. -nurse visit in 2 weeks -up titrated lisinopril to 10 mg p.o. q.d. -BMP in 2 weeks All other issues per PCP Shannan Zavala MD Cosigned by Tess Arauz MD at 05/27/2019 9:21 AM INSURANCE SALES ASSISTANT RANCE SALES ASSISTANT RANCE SALES ASSISTANT Associated attestation - Tess Arauz MD - 05/27/2019 9:21 AM INSURANCE SALES ASSISTANT I have personally reviewed with the history, [...] and blood pressure logs. All questions answered. RANCE SALES ASSISTANT documented in this encounter Plan of Treatment Not on file documented as of this encounter Results * (ABNORMAL) Hepatic function panel (05/27/2019 9:25 AM INSURANCE SALES ASSISTANT) Bilirubin, total 0.3 0.1 - 1.2 mg/dL [facility] Bilirubin, direct <0.2 0.1 - 0.3 mg/dL [facility] Protein, pl 8.0 6.5 - 8.5 g/dL [facility] Albumin 4.7 3.5 - 5.0 g/dL [facility] Alk phos 61 40 - 130 Units/L [facility] ALT 69(H) 7 - 55 Units/L [facility] AST 41 10 - 50 Units/L [facility] Blood specimen (specimen) 05/27/2019 9:25 AM INSURANCE SALES ASSISTANT 05/27/2019 10:18 AM INSURANCE SALES ASSISTANT Shannan Zavala MD LAB BLOOD ORDERABLES Final Re sult [facility] Department [place] [address] * Basic metabolic panel (05/27/2019 9:25 AM INSURANCE SALES ASSISTANT) Pathologist [facility] Sodium 141 135 - 145 mmol/L [facility] Potassium, pl 3.9 3.3 - 4.9 mmol/L [facility] Chloride 104 97 - 110 mmol/L [facility] CO2 28 22 - 32 mmol/L [facility] Anion gap 9 2 - 15 mmol/L [facility] BUN 17 8 - 25 mg/dL [facility] Creatinine 0.90 0.80 - 1.30 mg/dL [facility] Glucose 94 70 - 199 mg/dL [facility] Comment: Interpretive Data Fasting glucose [...] PAZ Blood specimen (specimen) 05/27/2019 9:25 AM INSURANCE SALES ASSISTANT 05/27/2019 10:18 AM INSURANCE SALES ASSISTANT us Shannan Zavala MD LAB BLOOD ORDERABLES Final Re sult [facility] Department [place] [address] documented in this encounter Visit Diagnoses Diagnosis [...] documented as of this encounter Care Teams Cylinder Press Operator Relationship Specialty Start Date End Date Jann Burrows MD [address] [place] [address] [address] [place] [address] PCP - General Hematology 03/13/19 10/28/21 documented as of this encounter
--- OUTSIDE RECORDS SUMMARY | 2024-05-10 20:22 | XMS_ITS | Encounter Summary ---
Author Organization [facility] Healthcare Address [address] [place] [address] Care Team Providers Care Detective Lieutenant Name Role Phone Jann Burrows MD Primary Care Provider [phone] Encounter Details Date Type Department Care Team (Late st Contact Info) Description 08/10/2019 Patient Self-Triage [facility] HealthCare/ Physicians [address] [place] [address] Mychart, Generic Provider [address] [place] [address] Social History Tobacco Use Types Packs/Day Years Used Date Smoking Tobacco: Never Smokeless Tobacco: Never Alcohol Use Standard Drinks/Week Comments Yes 24 (1 standard drink = 0.6 oz pu re alcohol) CAGE negative. Case per week. 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
--- OUTSIDE RECORDS SUMMARY | 2024-05-10 20:22 | XMS_ITS | Encounter Summary ---
Author Organization [facility] Address [address] [place] [address] Phone Care Team Providers Care Furnace Attendant Name Role Phone Jann Burrows MD Primary Care Provider [phone] Encounter Details Date Type Department Care Team (Latest Contact Info) Description 11/19/2019 3:40 PM CDT Office Visit 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 Current interpretive data was last revised 2018. Creatinine Ur 326.6 mg/dL [facility] Comment: Interpretive Data No reference range established. Current interpretive data was last revised 2018. Albumin Creatinine Ratio, Ur 66(H) 1 - 29 mg/g [facility] Urine 11/19/2019 5:59 PM CDT 11/19/2019 10:14 PM CDT us Peter Styles Jr., MD LAB URINE ORDERABLES Final Result [facility] [place] [address] * POCT hemoglobin A1c (11/19/2019 4:15 PM [...] X documented in this encounter Care Teams Furnace Attendant Relationship Specialty Start Date End Date Jann Burrows MD [id number] [place] [address] PCP - General Hematology 03/13/19 10/28/21 documented as of this encounter
--- OUTSIDE RECORDS SUMMARY | 2024-05-10 20:22 | XMS_ITS | Encounter Summary ---
Author Organization [facility] Address [address] [place] [address] Phone Care Team Providers Care Cable Spooler Name Role Phone Jann Burrows MD Primary Care Provider [phone] Encounter Details Date Type Department Care Team (Late st Contact Info) Description 12/18/2019 Telephone [facility] Endocrinology Metabolism and Lipid [address] [facility] 5th [place] [address] [place] [address] Che Duff LPN Social History Tobacco Use Types Packs/Day Years Used Date Smoking Tobacco: Never Smokeless Tobacco: Current Alcohol Use Standard Drinks/Week Comments Yes 24 (1 standard drink = 0.6 oz pu re alcohol) CAGE negative. Case per week. 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
--- OUTSIDE RECORDS SUMMARY | 2024-05-10 20:22 | XMS_ITS | Encounter Summary ---
Author Organization [facility] Healthcare Address [address] [place] [address] Care Team Providers Care Call Center Supervisor Name Role Phone Jann Burrows MD Primary Care Provider [phone] Encounter Details Date Type Department Care Team (Late st Contact Info) Description 11/02/2019 Orders Only [facility] [address] [facility] [address] [place] [address] Jann Burrows MD [address] [facility] [address] [place], [place] [id number] Diabetic ketoacidosis without coma associated with other [...] on file Legal Sex Male 5:01 AM EXHIBIT ELECTRICIAN Gender Identity Male 12/18/2017 12:38 PM CDT Sexual Orientation Not on file 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
--- OUTSIDE RECORDS SUMMARY | 2024-05-10 20:22 | XMS_ITS | Encounter Summary ---
Author Organization [facility] Address [address] [place] [address] Phone Care Team Providers Care Kettle Firer Name Role Phone Jann Burrows MD Primary Care Provider [phone] Encounter Details Date Type Department Care Team (Late st Contact Info) Description 08/13/2019 Documentation [facility] Endocrinology Metabolism and Lipid [address] [facility] Advanced Medicine 5th [place] [address] [place] [address] Peter Styles Jr., MD [address] [place] [address] Social History Tobacco Use Types Packs/Day Years Used Date Smoking Tobacco: Never Smokeless Tobacco: Never Alcohol Use Standard Drinks/Week Comments Yes 24 (1 standard drink = 0.6 oz pu re alcohol) CAGE negative. Case per week. 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
--- OUTSIDE RECORDS SUMMARY | 2024-05-10 20:22 | XMS_ITS | Encounter Summary ---
Author Organization [facility] Healthcare Address [address] [place] [address] Care Team Providers Care Information Technology Specialist Name Role Phone Jann Burrows MD Primary Care Provider [phone] Encounter Details Date Type Department Care Team (Late st Contact Info) Description 08/08/2019 Patient Self-Triage [facility] HealthCare/ Physicians [address] [place] [address] Mychart, Generic Provider [address] [place] [address] Social History Tobacco Use Types Packs/Day Years Used Date Smoking Tobacco: Never Smokeless Tobacco: Never Alcohol Use Standard Drinks/Week Comments Yes 24 (1 standard drink = 0.6 oz pu re alcohol) CAGE negative. Case per week. 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
--- OUTSIDE RECORDS SUMMARY | 2024-05-10 20:22 | XMS_ITS | Encounter Summary ---
Author Organization [facility] Healthcare Address [address] [place] [address] Care Team Providers Care Senior Network Systems Engineer Name Role Phone Jann Burrows MD Primary Care Provider [phone] Encounter Details Date Type Department Care Team (Late st Contact Info) Description 08/03/2019 Patient Self-Triage [facility] HealthCare/ Physicians [address] [place] [address] Mychart, Generic Provider [address] [place] [address] Social History Tobacco Use Types Packs/Day Years Used Date Smoking Tobacco: Never Smokeless Tobacco: Never Alcohol Use Standard Drinks/Week Comments Yes 24 (1 standard drink = 0.6 oz pu re alcohol) CAGE negative. Case per week. 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
--- OUTSIDE RECORDS SUMMARY | 2024-05-10 20:22 | XMS_ITS | Encounter Summary ---
Author Organization [facility] Healthcare Address [address] [place] [address] Care Team Providers Care Patient Transporter Name Role Phone Jann Burrows MD Primary Care Provider [phone] Encounter Details Date Type Department Care Team (Late st Contact Info) Description 08/03/2019 Patient Self-Triage [facility] HealthCare/ Physicians [address] [place] [address] Mychart, Generic Provider [address] [place] [address] Social History Tobacco Use Types Packs/Day Years Used Date Smoking Tobacco: Never Smokeless Tobacco: Never Alcohol Use Standard Drinks/Week Comments Yes 24 (1 standard drink = 0.6 oz pu re alcohol) CAGE negative. Case per week. 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
--- OUTSIDE RECORDS SUMMARY | 2024-05-10 20:22 | XMS_ITS | Encounter Summary ---
Author Organization [facility] Healthcare Address [address] [place] [address] Care Team Providers Care Lunch Counter Manager Name Role Phone Jann Burrows MD Primary Care Provider [phone] Encounter Details Date Type Department Care Team (Late st Contact Info) Description 08/11/2019 Orders Only [facility] HealthCare/[facility] Physicians [address] [place] [address] [place] [address] [address] Exposure to SARS-associated coronavirus (Primary Dx) Social History Tobacco Use Types Packs/Day Years Used Date Smoking Tobacco: Never Smokeless Tobacco: Never Alcohol Use Standard Drinks/Week Comments Yes 24 (1 standard drink = 0.6 oz pu re alcohol) CAGE negative. Case per week. 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
--- OUTSIDE RECORDS SUMMARY | 2024-05-10 20:22 | XMS_ITS | Encounter Summary ---
Author Organization [facility] Healthcare Address [address] [place] [address] Care Team Providers Care Grocery Clerk Checking Name Role Phone Jann Burrows MD Primary Care Provider [phone] Reason for Visit * Reason Onset Date Comments Follow-up 08/11/2019 Encounter Details Date Type Department Care Team (Late st Contact Info) Description 08/11/2019 Telephone [facility] Primary Care Medicine Clinic [address] [facility] [address] [place], [place] [id number] Jann Burrows MD [address] [facility] [address] [place], [place] [id number] Follow-up Social History Tobacco Use Types Packs/Day Years Used Date Smoking Tobacco: Never Smokeless Tobacco: Never Alcohol Use Standard Drinks/Week Comments Yes 24 (1 standard drink = 0.6 oz pu re alcohol) CAGE negative. Case per week. 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 Patient contact is [phone]. Adrianna [phone] documented in this encounter Plan of Treatment Not on file documented as of this encounter Visit Diagnoses Not on filedocumented in this encounter Additional Health Concerns Infection Onset Date Last Indicated Resolved Time COVID: Suspected 08/11/2019 08/11/2019 08/25/2019 3:06 AM CDT documented as of this encounter Care Teams Grocery Clerk Checking Relationship Specialty Start Date End Date Jann Burrows MD [address] [facility] [address] [place] [address] PCP - General Hematology 03/13/19 10/28/21 documented as of this encounter
--- OUTSIDE RECORDS SUMMARY | 2024-05-10 20:22 | XMS_ITS | Encounter Summary ---
Author Organization [facility] Healthcare Address [address] [place] [address] Care Team Providers Care Television News Video Editor Name Role Phone Jann Burrows MD Primary Care Provider [phone] Encounter Details Date Type Department Care Team (Late st Contact Info) Description 08/10/2019 E-Visit [facility] HealthCare/ Physicians [address] [place] [address] Adia Robbins MD [address] [place] [address] [address] [place] [address] Your Medications Social History Tobacco Use Types Packs/Day Years Used Date Smoking Tobacco: Never Smokeless Tobacco: Never Alcohol Use Standard Drinks/Week Comments Yes 24 (1 standard drink = 0.6 oz pu re alcohol) CAGE negative. Case per week. 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 He was given instructions regarding follow up and timeframe if symptoms worsen or don???t improve. These instructions were included in the [employer] message reply to the patient. Patient Instructions [...] Primary documented in this encounter Care Teams Television News Video Editor Relationship Specialty Start Date End Date Jann Burrows MD [address] [facility] [address] [place] [address] PCP - General Hematology 03/13/19 10/28/21 documented as of this encounter
--- OUTSIDE RECORDS SUMMARY | 2024-05-10 20:22 | XMS_ITS | Encounter Summary ---
Author Organization 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
--- OUTSIDE RECORDS SUMMARY | 2024-05-10 20:22 | XMS_ITS | Encounter Summary ---
Author Organization [facility] Healthcare Address [address] [place] [address] Care Team Providers Care Plans Examiner Name Role Phone Jann Burrows MD Primary Care Provider [phone] Encounter Details Date Type Department Care Team (Late st Contact Info) Description 12/01/2019 Telephone [facility] Podiatry [address] [facility] 4[address] [place] [address] Padma Raines CMA Social History Tobacco Use Types Packs/Day Years Used Date Smoking Tobacco: Never Smokeless Tobacco: Never Alcohol Use Standard Drinks/Week Comments Yes 24 (1 standard drink = 0.6 oz pu re alcohol) CAGE negative. Case per week. 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 Velasquez will be on vacation 03/03. documented in this encounter Plan of Treatment Not on file documented as of this encounter Visit Diagnoses Not on filedocumented in this encounter Care Teams Plans Examiner Relationship Specialty Start Date End Date Jann Burrows MD [address] [place] [address] PCP - General Hematology 03/13/19 10/28/21 documented as of this encounter
--- OUTSIDE RECORDS SUMMARY | 2024-05-10 20:22 | XMS_ITS | Encounter Summary ---
Author Organization [facility] Healthcare Address [address] [place] [address] Care Team Providers Care Manufacture Specialist Name Role Phone Jann Burrows MD Primary Care Provider Encounter Details Date Type Department Care Team (Late st Contact Info) Description 05/27/2019 9:20 AM BEFORE AND AFTER SCHOOL DAYCARE WORKER Lab [facility] Outpatient Health [address] [place] [address] [place] [address] Hypoglycemia Social History Tobacco Use Types Packs/Day Years Used Date Smoking Tobacco: Never Smokeless Tobacco: Never Alcohol Use Standard Drinks/Week Comments Yes 24 (1 standard drink = 0.6 oz pu re alcohol) CAGE negative. Case per week. 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 file Not on file documented as of this encounter Plan of Treatment Not on file documented as of this encounter Procedures Procedure Name Priority Date/Time Associated Diagnosis Comments HEPATIC FUNCTION PANEL Routine 05/27/2019 9:25 AM BEFORE AND AFTER SCHOOL DAYCARE WORKER Hypoglycemia BASIC METABOLIC PANEL Routine 05/27/2019 9:25 AM BEFORE AND AFTER [employer]CHOOL DAYCARE WORKER Hypoglycemia documented in this encounter Results * Basic metabolic panel (05/27/2019 9:25 AM BEFORE AND AFTER SCHOOL DAYCARE WORKER) Sodium 141 135 - 145 mmol/L [facility] Potassium, pl 3.9 3.3 - 4.9 mmol/L [facility] Chloride 104 97 - 110 mmol/L [facility] CO2 28 22 - 32 mmol/L [facility] Anion gap 9 2 - 15 mmol/L [facility] BUN 17 8 - 25 mg/dL [facility] Creatinine 0.90 0.80 - 1.30 mg/dL [facility] Glucose 94 70 - 199 mg/dL [facility] [...] 2017. Calcium 9.7 8.5 - 10.3 mg/dL [facility] Blood specimen (specimen) 05/27/2019 9:25 AM BEFORE AND AFTER SCHOOL DAYCARE WORKER 05/27/2019 10:18 AM BEFORE AND AFTER SCHOOL DAYCARE WORKER us Shannan Zavala MD LAB BLOOD ORDERABLES Final Re sult [facility] [address] [facility] Department [place] [address] * (ABNORMAL) Hepatic function panel (05/27/2019 9:25 AM BEFORE AND AFTER SCHOOL DAYCARE WORKER) Bilirubin, total 0.3 0.1 - 1.2 mg/dL [facility] Bilirubin, direct <0.2 0.1 - 0.3 mg/dL [facility] Protein, pl 8.0 6.5 - 8.5 g/dL [facility] Albumin 4.7 3.5 - 5.0 g/dL [facility] Alk phos 61 40 - 130 Units/L [facility] ALT 69(H) 7 - 55 Units/L [facility] AST 41 10 - 50 Units/L [facility] Blood specimen (specimen) 05/27/2019 9:25 AM BEFORE AND AFTER SCHOOL DAYCARE WORKER 05/27/2019 10:18 AM BEFORE AND AFTER SCHOOL DAYCARE WORKER us Shannan Zavala MD LAB BLOOD ORDERABLES Final Re sult [facility] [address] [facility] Department [place] [address] documented in this encounter Visit Diagnoses Diagnosis Hypoglycemia Hypoglycemia, unspecified documented in this encounter Care Teams Manufacture Specialist Relationship Specialty Start Date End Date Jann Burrows MD [address] [facility] [address] [place] [address] PCP - General Hematology 03/13/19 10/28/21 documented as of this encounter
--- OUTSIDE RECORDS SUMMARY | 2024-05-10 20:22 | XMS_ITS | Encounter Summary ---
Author Organization [facility] Healthcare Address [address] [place] [address] Care Team Providers Care Ager Operator Name Role Phone Jann Burrows MD Primary Care Provider [phone] Reason for Visit * Reason Comments Hyperglycemia Encounter Details Date Type Department Care Team (Latest Contact Info) Description 12/18/2019 1:46 PM CDT - 12/21/2019 12:30 PM CDT Hospital Encounter 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 Not on file Not [...] Care Physician at Discharge: Jann Burrows MD [phone] Admission Date: 12/18/2019 Discharge Date: 12/21/2019 Admission Location: [facility] Problems/Diagnoses: Principal Problem: Hyperglycemia Resolved Problems: No [...] Commonly known as: HumaLOG, ADMELOG * lancets [facility] Patient needs in room for diabetes education * Natividad Delica Plus Lancet 33 gauge [facility] Generic drug: lancets lisinopriL 20 mg [...] AM Smith Rhoades MD PhD Res [facility] 01/06/2020 3:45 PM Jef Walton MD CAR CAM 8A Cardiology 06/02/2020 4:20 PM Peter Styles MD EML CAM 5C [facility] EML Contact Information for Follow-ups Jann Burrows MD Specialty: Hematology Relationship: PCP - General [address] [address] Next Steps: Follow up in 7 day(s) Cosigned by Frederic Higuera MD at 12/21/2019 4:40 PM CDT documented in this encounter Discharge Instructions * Discharge Instructions* Vishnu Mascorro MD - 12/21/2019 11:14 AM CDT Dear Mr. Velez, Thank you for allowing the [facility] medicine team to take care of you [...] greater than 250, you should call your special librarian to arrange follow up and make any [...] tablet 3 03/19/2019 2 blood glucose diagnostic (SetuServTouch Ultra Test) stripIndications:D iabetic ketoacidosis without coma [...] home. Patient agrees to plan for discharge. Face Burler will continue to follow discharge plan of care until the patient is discharged. If needed, please contact me at [phone] * Stas Richardson MD PhD - 12/21/2019 8:18 AM CDT Endocrinology & Diabetes Progress Note Patient: Geraldo Velez, 23 y.o. male (: 1995) Room: [place] [address]/[id number] ( ) LOS: 3 Geraldo Velez is [...] Component Value Date 25HYDROVITD 16 (L) 09/06/2017 [id number] 0.00 03/04/2019 Assessment & Plan # Type 2 diabetes, with long filler cigar roller machine use of insulin, complicated by hyperglycemia. A1C [...] & Lipid Research Contact Info: New Consults: [phone]) General Endocrine (Non-Diabetes): [phone] (Check 'Treatment Team' assignment for Diabetes 1 vs 2 vs 3) Diabetes 1: Diabetes Fellow: [phone] Diabetes 2: Nita Arias, [employer]: [phone] Diabetes 3: See Treatment Team Provider (or call Nita Arias, above) Diabetes After-Hours & Weekends: Diabetes Fellow Cosigned by Jenifer Hurst MD at 12/22/2019 8:10 AM CDT * Vishnu Mascorro MD - 12/21/2019 7:04 AM CDT MEDICINE FIRM DAILY PROGRESS NOTE Date/Time: 12/21/2019 11:10 AM Patient Name: Geraldo Velez : 1995 Unit: [id number] Hospital Day: 4 PATIENT SUMMARY Geraldo Velez [...] U500 q8h, 10U Lispro with meals -- [facility] francis check >> requires prior auth, [...] Consistent Carbohydrate Last BM: DVT ppx: Lovenox PT/OT/CLINICAL STATISTICAL PROGRAMMER: no acute needs Dispo: home once insulin/glucose stable Discharge goals: insulin regimen Electronic Signature: Roman Mascorro MD PGY1 Anesthesiology [phone] Date/Time: 12/21/2019 11:10 AM Cosigned by Frederic [...] info (name, phone, availablity) Leatha Velez, mother [phone] Home Care Services No Durable Medical Equipment None Living Arrangements Parent Type of Residence Private residence Financial Resource Income 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 Patient admitted for treatment of: hyperglycemia Insurance verified as: [facility] Prescription Coverage: yes Preferred Pharmacy: [facility] PCP verified as: Dr. Burrows Transportation: per family Admission Source: non-healthcare facility Prior level of Functioning: Independent Additional Information/Options Discussed: Verified demographic information from the face sheet withthe patient/family. Explained role and purpose of director case management. Denies the use of home health in the past - a list will be offered if recommended. Patient demonstrates no agency preference at this time. 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 male (: 1995) Room: [place] [address] [address] [address] ( ) LOS: 2 Geraldo Velez is [...] Component Value Date 25HYDROVITD 16 (L) 09/06/2017 [id number] 0.00 03/04/2019 Assessment & Plan # Type 2 diabetes, with senior living use of insulin, complicated by hyperglycemia. A1C [...] & Lipid Research Contact Info: New Consults: [phone]) General Endocrine (Non-Diabetes): [phone] (Check 'Treatment Team' assignment for Diabetes 1 vs 2 vs 3) Diabetes 1: Diabetes Fellow: [phone] Diabetes 2: Nita Arias, [employer]: [phone] Diabetes 3: See Treatment Team Provider (or [...] Patient Name: Geraldo Velez : 1995 Unit: [id number] Hospital Day: 3 PATIENT SUMMARY Geraldo Velez [...] Consistent Carbohydrate Last BM: DVT ppx: Lovenox PT/OT/CLINICAL STATISTICAL PROGRAMMER: no acute needs Dispo: home once insulin/glucose stable Discharge goals: insulin regimen Electronic Signature: Roman Mascorro MD PGY1 Anesthesiology [phone] Date/Time: 12/20/2019 7:25 AM Cosigned by Frederic [...] Patient Name: Geraldo Velez : 1995 Unit: [id number] Hospital Day: 2 PATIENT SUMMARY Geraldo Velez [...] Consistent Carbohydrate Last BM: DVT ppx: Lovenox PT/OT/CLINICAL STATISTICAL PROGRAMMER: no acute needs Dispo: home once insulin/glucose stable Discharge goals: insulin regimen Electronic Signature: Roman Mascorro MD PGY1 Anesthesiology [phone] Date/Time: 12/19/2019 11:59 AM Cosigned by Frederic [...] ??? Anxiety ??? Depression ??? Diabetes mellitus ([facility]) ??? HTN (hypertension) ??? Metabolic syndrome ??? Morbid obesity with BMI of 50.0-59.9, adult ([facility]) 07/10/2017 Past Surgical History History reviewed. No [...] 70 units three times daily. ??? lancets [facility] Patient needs in room for diabetes [...] Contact Information Primary Emergency Contact: Leatha Velez [facility] Relation: Mother PCP Jann Burrows MD Electronic Signature: Roman Mascorro MD PGY1 Anesthesiology [phone] Date/Time: 12/18/2019 8:02 PM Cosigned by Frederic [...] Velez, 23 y.o. male (: 1995) Room: [place] [address]/[id number] ( ) LOS: 1 Consult Question: Type [...] ??? Anxiety ??? Depression ??? Diabetes mellitus ([facility]) ??? HTN (hypertension) ??? Metabolic syndrome ??? [...] Component Value Date 25HYDROVITD 16 (L) 09/06/2017 [id number] 0.00 03/04/2019 Assessment & Plan # Type 2 diabetes, with senior living use of insulin, complicated by hyperglycemia. A1C [...] & Lipid Research Contact Info: New Consults: [phone]) General Endocrine (Non-Diabetes): [phone] (Check 'Treatment Team' assignment for Diabetes 1 vs 2 vs 3) Diabetes 1: Diabetes Fellow: [phone] Diabetes 2: Nita Arias, [employer]: [phone] Diabetes 3: See Treatment Team Provider (or call Nita Arias, above) Diabetes After-Hours & Weekends: Diabetes Fellow Cosigned by Aniya Mancia MD at 12/19/2019 4:04 PM CDT [...] ketoacidosis, without long-term current use of insulin ([facility]) 03/19/2019 ??? Weight loss counseling, encounter for 10/13/2017 ??? Metabolic syndrome 10/13/2017 ??? Fatty liver 10/13/2017 ??? Disordered sleep 10/13/2017 ??? Morbid obesity with BMI of 50.0-59.9, adult ([facility]) 07/10/2017 ??? Low HDL (under 40) 07/10/2017 ??? Asymmetric septal hypertrophy ([facility]) 02/10/2016 ??? Essential hypertension 03/16/2010 Past Medical History: Diagnosis Date ??? Anxiety ??? Depression ??? Diabetes mellitus (CMS/HCC) ??? HTN (hypertension) ??? Metabolic syndrome ??? Morbid obesity with BMI of 50.0-59.9, adult ([facility]) 07/10/2017 History reviewed. No pertinent surgical history. [...] as of Dec 18 1737 Time: 12/17 1254 Comment: After BMP results will call endo Re: pt not on long acting insulin. Will see if he should be admitted to short stay By: Anna Shaffer MD Time: 12/17 1636 Value: Potassium, pl: See Comment Comment: Will re order By: Anna Shaffer MD Time: 12/17 7050 Comment: Endo aware of pt. Signed out [...] arrival: Ambulance Comments: Chemo Youssef RN 12/18/19 9586 * Chemo Youssef RN - 12/18/2019 1:22 [...] If needed feel free to contact at [phone] * Medical Student - Ochoa Jeremiah - 12/21/2019 11:13 AM CDT MEDICINE FIRM DAILY PROGRESS NOTE Name: Geraldo Velez Date of Admission: 12/18/2019 Length of Stay: 3 day(s) Bed: [id number] Subjective Chief Complaint: hyperglycemia Patient Summary: Geraldo [...] 199 mg/dL Recent Labs Lab Units 12/21/19 1105 12/19/19 0323 SODIUM mmol/L -- -- 137 [...] with Dr. Styles in endocrinology here at [facility]. Per chart review patient is extremely insulinresistant. [...] in cardiology. [facility]. Last TTE was in [...] 2018 [place]. * Plan of Care - Prsicila Martinez RN - 12/21/2019 3:42 AM CDT [...] 12/18/2019 Length of Stay: 1 day(s) Bed: [id number] Subjective Chief Complaint: hyperglycemia Patient Summary: Geraldo [...] with Dr. Styles in endocrinology here at [facility]. Per chart review patient is extremely insulinresistant. [...] in cardiology. Has not been symptomatic [facility]. Last TTE was in [...] regular 10u, NPH 35u Endo consulted. Pending: [facility] Dispo: admit to medicine, signed out ED Course as of Dec 18 7433 Time: 12/17 2234 Comment: After BMP results will call endo [...] Primary Care Physician: Jann Burrows MD Room: [facility] ED1-10/ED1 SUBJECTIVE: CC: hyperglycemia HPI: Geraldo Velez [...] with Dr. Styles in endocrinology here at [facility]. He has been taking his normal diabetesregimen of metformin 1000 BID and 75U U500 TID. He takes his BG 3 times a day before meals. They have been fluctuating between 90-200's the last week. Last night, the patient's girlfriend (a nurse at [employer]) was concerned given his increased urination. He took his BG, which was in the 500'sthen took extra insulin with drop down to the 400's. On waking up the next morning, he was still hyperglycemic in the high 400's. He presented to urgent care then to [facility]. 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 He drinks socially a [...] with Dr. Styles in endocrinology here at [facility]. Per chart review patient is extremely insulinresistant. [...] currently being evaluated for possible admission to [facility]. Upon review of this patient's chart I [...] be confidently assessed from the patient. Per [facility] policy, patients assessed as being low risk for COVID-19 require COVID-19 testing and require COVID-19 level isolation while awaiting COVID-19 test results, however these patients can khwy-fq-jwzce in any private room (including positive pressure rooms) and do NOT require a COVID-19 unit or ICU bed. A single negative COVID-19 test result is sufficient for removi ng these patients from COVID-19 isolation precautions, to do so please contact [facility] Flight Attendant [employer] On-Call ([email or web address], utilize the on-call tab to [...] in group living facility such as a fci facility, fdc facility, rehab facility, or long-term care facility [...] acting). Went to who discharged him. Saw special librarian 1 mo ago but very insulin resistant. [...] order By: Anna Shaffer MD Time: 12/17 3460 Comment: Endo aware of pt. Signed out to medicine. By: Anna Shaffer MD Time: 12/17 989 Comment: Medicine wants endo recs to start [...] and polyuria Anna Shaffer MD Resident 12/18/19 8871 documented in this encounter Plan of Treatment [...] * POCT glucose (12/21/2019 11:43 AM CDT) [facility] Glucose, POC 194 70 - 199 mg/dL TRACIE PAZ Blood specimen (specimen) 12/21/2019 11:43 AM CDT 12/21/2019 11:43 AM CDT us Frederic Higuera MD LAB POCT ORDERABLES - DEVICE Final Result TRACIE PAZ [facility] Department [place] [address] * POCT glucose (12/21/2019 7:55 AM CDT) Glucose, POC 196 70 - 199 mg/dL [facility] Blood specimen (specimen) 12/21/2019 7:55 AM CDT 12/21/2019 7:55 AM CDT Frederic Higuera MD LAB POCT ORDERABLES - DEVICE Final Result Performing Organization Address City/[facility] Co de Phone Number [facility] [place] [address] * POCT glucose (12/21/2019 2:50 AM CDT) Glucose, POC 174 70 - 199 mg/dL [facility] Blood specimen (specimen) 12/21/2019 2:50 AM CDT 12/21/2019 2:50 AM CDT Frederic Higuera MD LAB POCT ORDERABLES - DEVICE Final Result Performing Organization Address [facility] Co de Phone Number [facility] [place] [address] * POCT glucose (12/20/2019 9:41 PM CDT) Glucose, POC 131 70 - 199 mg/dL [facility] Blood specimen (specimen) 12/20/2019 9:41 PM CDT 12/20/2019 9:41 PM CDT Frederic Higuera MD LAB POCT ORDERABLES - DEVICE Final Result Performing Organization Address [facility] Co de Phone Number [facility] [place] [address] * POCT glucose (12/20/2019 5:15 PM CDT) Glucose, POC 114 70 - 199 mg/dL [facility] Blood specimen (specimen) 12/20/2019 5:15 PM CDT 12/20/2019 5:15 PM CDT Frederic Higuera MD LAB POCT ORDERABLES - DEVICE Final Result Performing Organization Address [facility] de Phone Number [facility] [place] [address] * (ABNORMAL) POCT glucose (12/20/2019 11:30 AM CDT) Glucose, POC 229(H) 70 - 199 mg/dL [facility] Blood specimen (specimen) 12/20/2019 11:30 AM CDT 12/20/2019 11:30 AM CDT Frederic Higuera MD LAB POCT ORDERABLES - DEVICE Final Result Performing Organization Address [facility] de Phone Number [facility] [place] [address] * (ABNORMAL) POCT glucose (12/20/2019 8:05 AM CDT) Glucose, POC 258(H) 70 - 199 mg/dL [facility] Blood specimen (specimen) 12/20/2019 8:05 AM CDT 12/20/2019 8:05 AM CDT Frederic Higuera MD LAB POCT ORDERABLES - DEVICE Final Result Performing Organization Address [facility] de Phone Number [facility] [place] [address] * (ABNORMAL) POCT glucose (12/20/2019 2:49 AM CDT) Glucose, POC 234(H) 70 - 199 mg/dL [facility] Blood specimen (specimen) 12/20/2019 2:49 AM CDT 12/20/2019 2:49 AM CDT Frederic Higuera MD LAB POCT ORDERABLES - DEVICE Final Result Performing Organization Address [facility] Co de Phone Number [facility] [place] [address] * POCT glucose (12/19/2019 11:34 PM CDT) Glucose, POC 197 70 - 199 mg/dL [facility] Blood specimen (specimen) 12/19/2019 11:34 PM CDT 12/19/2019 11:34 PM CDT us Frederic Higuera MD LAB POCT ORDERABLES - DEVICE Final Result Performing Organization Address [facility] Co de Phone Number [facility] [place] [address] * (ABNORMAL) POCT glucose (12/19/2019 8:19 PM CDT) Glucose, POC 254(H) 70 - 199 mg/dL [facility] Glucose comment 1 RN Notified [facility] Blood specimen (specimen) 12/19/2019 8:19 PM CDT 12/19/2019 8:19 PM CDT Frederic Higuera MD LAB POCT ORDERABLES - DEVICE Final Result Performing Organization Address City/[facility] [place] [address] * (ABNORMAL) POCT glucose (12/19/2019 5:01 PM CDT) Glucose, POC 239(H) 70 - 199 mg/dL [facility] Blood specimen (specimen) 12/19/2019 5:01 PM CDT 12/19/2019 5:01 PM CDT Frederic Higuera MD LAB POCT ORDERABLES - DEVICE Final Result Performing Organization Address [facility] de Phone Number [facility] [place] [address] * (ABNORMAL) POCT glucose (12/19/2019 11:50 AM CDT) Glucose, POC 250(H) 70 - 199 mg/dL [facility] Blood specimen (specimen) 12/19/2019 11:50 AM CDT 12/19/2019 11:50 AM CDT Frederic Higuera MD LAB POCT ORDERABLES - DEVICE Final Result Performing Organization Address [facility] de Phone Number [facility] [place] [address] * (ABNORMAL) POCT glucose (12/19/2019 7:27 AM CDT) Glucose, POC 224(H) 70 - 199 mg/dL [facility] Blood specimen (specimen) 12/19/2019 7:27 AM CDT 12/19/2019 7:27 AM CDT Frederic Higuera MD LAB POCT ORDERABLES - DEVICE Final Result Performing Organization Address [facility] de Phone Number [facility] [place] [address] * Cholesterol, LDL, direct (12/19/2019 3:23 AM CDT) LDL Cholesterol, Direct 60 <=129 mg/dL [facility] Comment: Interpretive Data Ages < or = [...] CDT 12/19/2019 3:53 AM CDT Narrative TRACIE [facility] - 12/19/2019 10:03 AM CDT Cholesterol, LDL, direct reflexed based on Elevated Triglyceride (>400) Frederic Higuera MD LAB BLOOD ORDERABLES F inal Result [facility] Department [place] [address] * (ABNORMAL) Lipid panel (12/19/2019 3:23 AM CDT) Cholesterol 175 30 - 199 mg/dL [facility] Comment: Interpretive Data Ages < or = [...] revised on 2017. Triglycerides 785(H) <=149 mg/dL [facility] Comment: Interpretive Data Ages < or = [...] revised on 2017. HDL 22(L) >=40 mg/dL [facility] Comment: Interpretive Data Ages < or = [...] on 2017. LDL, calculated See Comment <=129 [facility] Comment: Unable to calculate LDL due to [...] revised on 2017. Non-HDL Cholesterol 153 mg/dL [facility] Comment: Interpretive Data Ages [...] ORDERABLES F inal Result TRACIE PAZ [facility] Department [place] [address] * Differential, auto (12/19/2019 3:23 AM CDT) Neutrophil abs 2.5 1.7 - 6.5 K/cumm [facility] PA[facility] Imm gran abs 0.0 0.0 - 0.1 K/cumm [facility] Lymphocyte abs 2.0 0.8 - 3.3 K/cumm [facility] Monocyte abs 0.4 0.2 - 0.8 K/cumm [facility] Eosinophil abs 0.2 0.0 - 0.5 K/cumm [facility] Basophil abs 0.0 0.0 - 0.1 K/cumm [facility] Neutrophil pct 47.6 % [facility] Comment: Interpretive Data Percent cell count reference ranges are not reported, since discordance with absolute values may lead to misinterpretation of CBC data. Current Interpretive Data was last revised on 2017. Imm gran pct 0.4 % [facility] Comment: Interpretive Data Percent cell count reference ranges are not reported, since discordance with absolute values may lead to misinterpretation of CBC data. Current Interpretive Data was last revised on 2017. Lymphocyte pct 39.4 % [facility] Comment: Interpretive Data Percent cell count reference ranges are not reported, since discordance with absolute values may lead to misinterpretation of CBC data. Current Interpretive Data was last revised on 2017. Monocyte pct 8.5 % [facility] Comment: Interpretive Data Percent cell count reference ranges are not reported, since discordance with absolute values may lead to misinterpretation of CBC data. Current Interpretive Data was last revised on 2017. Eosinophil pct 3.7 % [facility] Comment: Interpretive Data Percent cell count reference ranges are not reported, since discordance with absolute values may lead to misinterpretation of CBC data. Current Interpretive Data was last revised on 2017. Basophil pct 0.4 % [facility] Comment: Interpretive Data Percent cell count reference ranges are not reported, since discordance with absolute values may lead to misinterpretation of CBC data. Current Interpretive Data was last revised on 2017. Blood specimen (specimen) 12/19/2019 3:23 AM CDT 12/19/2019 3:52 AM CDT us China White MD LAB BLOOD ORDERABLES Final R esult [facility] [place] [address] * (ABNORMAL) POCT glucose (12/19/2019 3:23 AM CDT) [facility] Glucose, POC 244(H) 70 - 199 mg/dL [facility] Blood specimen (specimen) 12/19/2019 3:23 AM CDT 12/19/2019 3:23 AM CDT Frederic Higuera MD LAB POCT ORDERABLES - DEVICE Final Result Performing Organization Address [facility]/[place] [address] * (ABNORMAL) Hemoglobin A1c (12/19/2019 3:23 AM CDT) [facility] Hgb A1C 8.4(H) 4.0 - 5.6 % [facility] Estimated Average Glucose 194 mg/dL [facility] Comment: The ADA recommends reporting an estimated Average Glucose (eAG) with all Hemoglobin A1c results using the equation derived from a study of 507 normal and diabetic adults. ??Minority populations were underrepresented and children were not included. ?? (Diabetes Care 31:7621-6347, 2008). ??The eAG is not equivalent to a fasting glucose. Blood specimen (specimen) 12/19/2019 3:23 AM CDT 12/19/2019 3:34 AM CDT us China White MD LAB BLOOD [place] [address] * (ABNORMAL) CBC with auto differential (12/19/2019 3:23 AM CDT) [facility] WBC 5.2 3.8 - 9.9 K/cumm [facility] Hgb 14.3 13.0 - 17.5 g/dL [facility] Hct 39.2 38.9 - 50.3 % [facility] Plt 252 150 - 400 K/cumm [facility] MPV 9.9 9.1 - 12.3 fL [facility] RBC 4.85 4.30 - 5.80 M/cumm [facility] MCV 80.8(L) 81.3 - 96.4 fL [facility] MCH 29.5 27.1 - 33.3 pg [facility] MCHC 36.5(H) 32.3 - 35.7 g/dL [facility] RDW CV 12.0 11.1 - 14.9 % [facility] RDW SD 34.8(L) 35.7 - 48.1 fL [facility] NRBC abs 0.00 0.00 - 0.01 K/cumm [facility] Blood specimen (specimen) 12/19/2019 3:23 AM CDT 12/19/2019 3:52 AM CDT China White MD LAB BLOOD ORDERABLES Final R esult [facility] [place] [address] * (ABNORMAL) Basic metabolic panel (12/19/2019 3:23 AM CDT) Sodium 137 135 - 145 mmol/L [facility] Potassium, pl 3.5 3.3 - 4.9 mmol/L [facility] Chloride 100 97 - 110 mmol/L [facility] CO2 26 22 - 32 mmol/L [facility] Anion gap 11 2 - 15 mmol/L [facility] BUN 17 8 - 25 mg/dL [facility] Creatinine 0.82 0.80 - 1.30 mg/dL [facility] Glucose 262(H) 70 - 199 mg/dL [facility] Comment: Interpretive Data Fasting glucose >/= 126 [...] 2017. Calcium 9.3 8.5 - 10.3 mg/dL [facility] Blood specimen (specimen) 12/19/2019 3:23 AM CDT 12/19/2019 3:53 AM CDT us China White MD LAB BLOOD ORDERABLES Final R esult Performing Organization Address [facility] Co de Phone Number [facility] [place] [address] * (ABNORMAL) POCT glucose (12/19/2019 12:41 AM CDT) Glucose, POC 319(H) 70 - 199 mg/dL [facility] Blood specimen (specimen) 12/19/2019 12:41 AM CDT 12/19/2019 12:41 AM CDT us Frederic Higuera MD LAB POCT ORDERABLES - DEVICE Final Result Performing Organization Address [facility] Co de Phone Number [facility] [place] [address] * (ABNORMAL) POCT glucose (12/19/2019 12:32 AM CDT) Glucose, POC 317(H) 70 - 199 mg/dL [facility] Blood specimen (specimen) 12/19/2019 12:32 AM CDT 12/19/2019 12:32 AM CDT Frederic Higuera MD LAB POCT ORDERABLES - DEVICE Final Result Performing Organization Address City/[facility] Co de Phone Number [facility] Department [place] [address] * (ABNORMAL) POCT glucose (12/18/2019 11:01 PM CDT) Glucose, POC 348(H) 70 - 199 mg/dL [facility] Blood specimen (specimen) 12/18/2019 11:01 PM CDT 12/18/2019 11:01 PM CDT us China White MD LAB POCT ORDERABLES - DEVICE Final Result Performing Organization Address [facility] Co de Phone Number [facility] [place] [address] * (ABNORMAL) POCT glucose (12/18/2019 9:09 PM CDT) [facility] Glucose, POC 406(H) 70 - 199 mg/dL [facility] Blood specimen (specimen) 12/18/2019 9:09 PM CDT 12/18/2019 9:09 PM CDT us China White MD LAB POCT ORDERABLES - DEVICE Final Result Performing Organization Address [facility] Co de Phone Number [facility] Department [place] [address] * (ABNORMAL) POCT glucose (12/18/2019 7:26 PM CDT) [facility] Glucose, POC 291(H) 70 - 199 mg/dL [facility] Blood specimen (specimen) 12/18/2019 7:26 PM CDT 12/18/2019 7:26 PM CDT us China White MD LAB POCT ORDERABLES - DEVICE Final Result Performing Organization Address [facility] Co de Phone Number [facility] [place] [address] * COVID-19 Coronavirus RNA Nasopharyngeal (12/18/2019 5:45 PM CDT) [facility] COVID-19 RNA Not Detected [facility] Comment: Interpretive Data Testing performed at [facility] Molecular Infectious Disease Laboratory. The 2019-Novel Coronavirus [...] PM CDT 12/18/2019 7:36 PM CDT Narrative [facility] - 12/19/2019 8:32 AM CDT Is the patient experiencing any symptoms consistent with COVID (eg. Fever, cough, shortness of breath)?->No What is the reason for testing?->Likely to be admitted to semi-private room THE COLLECTION LOCATION IS [facility] ED1-10 Anna Shaffer MD LAB MICROBIOLOGY - GENER AL ORDERABLES Final Result Performing Organization Address City/[facility]/ZIP Co de Phone Number [facility] [place] [address] * Potassium, whole blood (12/18/2019 5:45 PM CDT) [facility] Potassium, bld 3.8 3.3 - 4.9 mmol/L [facility] Blood specimen (specimen) 12/18/2019 5:45 PM CDT 12/18/2019 5:53 PM CDT Narrative [facility] - 12/18/2019 6:04 PM CDT THE COLLECTION LOCATION IS [facility] ED1-10 Anna Shaffer MD LAB BLOOD ORDERABLES Fin al Result Performing Organization Address City/[facility]/ZIP Co de Phone Number [facility] [place] [address] * (ABNORMAL) POCT glucose (12/18/2019 5:43 PM CDT) Glucose, POC 351(H) 70 - 199 mg/dL [facility] Glucose comment 1 RN Notified [facility] Blood specimen (specimen) 12/18/2019 5:43 PM CDT 12/18/2019 5:43 PM CDT us China White MD LAB POCT ORDERABLES - DEVICE Final Result [facility] [place] [address] * ED PERIPHERAL LINE INSERTION (12/18/2019 4:30 [...] microscopic only (12/18/2019 3:36 PM CDT) Pathologist [facility] WBC, ur 0-5 0 - 5 /HPF [facility] RBC, ur 0-2 0 - 2 /HPF [facility] Epithelial cells, squamous, ur 1-5 0 - 5 /HPF [facility] Urine 12/18/2019 3:36 PM CDT 12/18/2019 3:49 PM CDT us Dionna Mcpherson MD LAB URINE ORDERABLES F inal Result [facility] Department [place] [address] * (ABNORMAL) Urinalysis reflex to microscopic (12/18/2019 3:36 PM CDT) Color, ur Straw Yellow [facility] Clarity, ur Clear Clear [facility] Specific gravity, ur 1.029(H) 1.010 - 1.025 [facility] pH, urine 6 [facility] Protein, ur ql 1+(A) Negative [facility] Glucose, ur ql 3+(A) Negative [facility] Ketones, ur Trace Negative [facility] Bilirubin, ur Negative Negative [facility] Blood, ur Negative Negative [facility] Urobilinogen, ur <2.0 <2.0 mg/dL [facility] Nitrite, ur Negative Negative [facility] Leukocyte esterase, ur 1+(A) Negative [facility] UA reflex comment Reflex to microscopic UA will be performed. [facility] Urine 12/18/2019 3:36 PM CDT 12/18/2019 3:49 PM CDT Narrative [facility] - 12/18/2019 4:07 PM CDT THE [facility] COLLECTION LOCATION IS [facility] ED1-10 Urine pH is affected by diet, medications, systemic acid-base disturbances, and renal tubular function. ??pH may affect urinary stone formation. ??For example, urine pH below 6.0 may help reduce the tendency for calcium phosphate stones and pH greater than 6.0 may reduce the tendency for uric acid stone formation. Source: [employer]. Last revised 05-16-2017 us Dionna Mcpherson MD LAB URINE ORDERABLES F inal Result [facility] [place] [address] * (ABNORMAL) Basic metabolic panel (12/18/2019 3:36 PM CDT) Sodium 131(L) 135 - 145 mmol/L [facility] Potassium, pl See Comment 3.3 - 4.9 mmol/L [facility] Comment:Credited; Hemolyzed Specimen Chloride 93(L) 97 - 110 mmol/L [facility] CO2 24 22 - 32 mmol/L [facility] Anion gap 14 2 - 15 mmol/L [facility] BUN 18 8 - 25 mg/dL [facility] Creatinine 0.84 0.80 - 1.30 mg/dL [facility] Glucose 411(H) 70 - 199 mg/dL [facility] Comment: Interpretive Data Fasting glucose >/= 126 [...] 2017. Calcium 9.5 8.5 - 10.3 mg/dL [facility] Blood specimen (specimen) 12/18/2019 3:36 PM CDT 12/18/2019 3:56 PM CDT Narrative [facility] - 12/18/2019 4:26 PM CDT THE COLLECTION LOCATION IS [facility] ED1-10 Dionna Mcpherson MD LAB BLOOD ORDERABLES F inal Result [facility] [place] [address] * ED PERIPHERAL LINE INSERTION (12/18/2019 3:35 [...] Glucose, POC 494(C) 70 - 199 mg/dL [facility] Glucose comment 1 RN Notified [facility] Blood specimen (specimen) 12/18/2019 1:24 PM CDT 12/18/2019 1:24 PM CDT Result [facility] Notinfile Unknown LAB POCT ORDERABLES - DEVICE F inal Result [facility] [place] [address] documented in this encounter Visit Diagnoses Diagnosis [...] Call MD for each episode of hypoglycemia. SALES ASSISTANT ENTERTAINMENT AND MEDIA STATES GLUTOSE-15 CONTAINS GLUCOSE 40% W/W (50% [...] Call MD for each episode of hypoglycemia. SALES ASSISTANT ENTERTAINMENT AND MEDIA STATES GLUTOSE-15 CONTAINS GLUCOSE 40% W/W (50% [...] Call MD for each episode of hypoglycemia. SALES ASSISTANT ENTERTAINMENT AND MEDIA STATES GLUTOSE-15 CONTAINS GLUCOSE 40% W/W (50% [...] 12/18/2019 documented in this encounter Care Teams Ager Operator Relationship Specialty Start Date End Date Jann Burrows MD [address] [facility] [address] [place] [address] PCP - General Hematology 03/13/19 10/28/21 documented as of this encounter
--- OUTSIDE RECORDS SUMMARY | 2024-05-10 20:22 | XMS_ITS | Encounter Summary ---
Author Organization [facility] Address [address] [place] [address] Care Team Providers Care Primary School Teacher Name Role Phone Jann Burrows MD Primary Care Provider [phone] Reason for Visit * Reason Onset Date Comments COVID-19 EVALUATION 08/11/2019 Encounter Details Date Type Department Care Team (Late st Contact Info) Description 08/11/2019 Telephone [facility] HealthCare/ Physicians [address] [place] [address] Janette Merritt, RN COVID-19 EVALUATION Social History Tobacco Use Types Packs/Day Years Used Date Smoking Tobacco: Never Smokeless Tobacco: Never Alcohol Use Standard Drinks/Week Comments Yes 24 (1 standard drink = 0.6 oz pu re alcohol) CAGE negative. Case per week. 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 Yes Do you have a cough or shortness of breath? Yes Do you live in a shelter, fci facility or other group setting? No Are [...] documented as of this encounter Care Teams Primary School Teacher Relationship Specialty Start Date End Date Jann Burrows MD [id number] [place] [address] PCP - General Hematology 03/13/19 10/28/21 documented as of this encounter
--- OUTSIDE RECORDS SUMMARY | 2024-05-10 20:22 | XMS_ITS | Encounter Summary ---
Author Organization [facility] Healthcare Address [address] [place] [address] Care Team Providers Care Oil Speculator Name Role Phone Jann Burrows MD Primary Care Provider [phone] Reason for Visit * Reason Onset Date Comments Follow-up 05/28/2019 Encounter Details Date Type Department Care Team (Late st Contact Info) Description 05/28/2019 Telephone [facility] Medicine [facility] [address] [facility] [address] [place], [place] [id number] Jann Burrows MD [address] [facility] [address] [place], [place] [id number] Follow-up Social History Tobacco Use Types Packs/Day Years Used Date Smoking Tobacco: Never Smokeless Tobacco: Never Alcohol Use Standard Drinks/Week Comments Yes 24 (1 standard drink = 0.6 oz pu re alcohol) CAGE negative. Case per week. 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 F PROCUREMENT OFFICER * Telephone Encounter - Markus Elaine - 05/28/2019 3:[address] Zavala, Pharmacy is calling to clarify if insulin regular U-500 (HumuLIN R U-500, Conc, Kwikpen) 500 unit/mL (3 mL) CONCENTRATED injection is a 30 day supply or 90 day supply . Pharmacy on file. Markus Campoverde [phone] F PROCUREMENT OFFICER documented in this encounter Plan of Treatment Not on file documented as of this encounter Visit Diagnoses Not on filedocumented in this encounter Care Teams Oil Speculator Relationship Specialty Start Date End Date Jann Burrows MD [address] [facility] [address] [place] [address] PCP - General Hematology 03/13/19 10/28/21 documented as of this encounter
--- OUTSIDE RECORDS SUMMARY | 2024-05-10 20:23 | XMS_ITS | Encounter Summary ---
Author Organization [facility] Facility Care Team Providers Care Stadium Manager Name Role Phone Unavailable Primary Care Provider Unavailabl e Encounter Details Date Type Department Care Team (Late st Contact Info) Description 03/07/2010 4:44 PM CDT - 03/07/2010 11:59 PM CDT Hospital Encounter [facility] Etelvina Del Cid MD [address] [place] [address] Headache; Other diseases of nasal cavity and sinuses Social History Tobacco Use Types Packs/Day Years Used Date Smoking Tobacco: Never Assessed Sex and Gender Information Value Date Recorded Sex Assigned at Not on file Legal Sex Male 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
--- OUTSIDE RECORDS SUMMARY | 2024-05-10 20:23 | XMS_ITS | Encounter Summary ---
Author Organization [facility] Address [address] [place] [address] Phone Care Team Providers Care Colored Leather Setter Name Role Phone Etelvina Del Cid MD Primary Care Provider + Encounter Details Date Type Department Care Team (Late st Contact Info) Description 10/09/2017 9:45 AM CDT Office Visit [facility] Cardiology [facility] Advanced Medicine 8th [place] [address] [place] [address] Jef Walton MD [address] [facility] [address] [place], [place] [id number] Benign essential hypertension (Primary Dx); Asymmetric septal hypertrophy (CMS/HCC); Morbid obesity with BMI of 50.0-59.9, adult (CMS/HCC); Low HDL (under 40) Social History Tobacco Use Types Packs/Day Years Used Date Smoking Tobacco: Never Smokeless Tobacco: Never Sex and Gender Information Value Date Recorded Sex Assigned at Not on file Legal Sex Male 5:01 AM TUGBOAT PILOT Gender Identity Male 12/18/2017 12:38 PM CDT [...] 9:45 AM CDT 10/09/2017 Geraldo Velez 1995 [id number] Correspondence: Etelvina Del Cid MD Patient Active Problem List Diagnosis Date Noted ??? Morbid obesity with BMI of 50.0-59.9, adult ([facility]) 07/10/2017 Assessment & Plan Note: Weight up slightly from his last visit. Counseled regarding weight loss and dietary changes. To follow up with the weight loss clinic tomorrow, being considered for bariatric surgery. ??? Low HDL (under 40) 07/10/2017 Assessment & Plan Note: Also with high TGs. Increase activity, work on weight loss and dietary changes. ??? Asymmetric septal hypertrophy ([facility]) 02/10/2016 Assessment & Plan Note: Still unclear [...] further assistance.. Sincerely, Jef Walton MD, MPHS, [facility] [employer]ipelines Laborertower hoist operator Cardiovascular Division [facility] --- Please note: This note was generated in part using voice-recognition software and may contain tube bender hand errors. documented in this encounter Miscellaneous Notes [...] 10/09/2017 added in this encounter Care Teams Colored Leather Setter Relationship Specialty Start Date End Date Etelvina Del Cid MD [address] [place] [address] [place] [address] PCP - General 08/14/16 03/10/19 documented as of this encounter
--- OUTSIDE RECORDS SUMMARY | 2024-05-10 20:23 | XMS_ITS | Encounter Summary ---
Author Organization [facility] Address [address] [place] [address] Phone Care Team Providers Care Environmental Property Assessor Name Role Phone Etelvina Del Cid MD Primary Care Provider + No, Physician Primary Care Provider [phone] Jann Burrows MD Primary Care Provider [phone] Mariana Monique MD Unavailable [facility] Primary Care Provider Encounter Details Date Type Department Care Team (Latest Contact Info) Description 09/06/2017 Orders Only [facility] Scanning, Provider Social History Tobacco Use Types Packs/Day Years Used Date Smoking Tobacco: Never Sex and Gender Information Value Date Recorded Sex Assigned at Not on file 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 Gender Identity Male 12/18/2017 12:38 PM [...] documented as of this encounter Care Teams Environmental Property Assessor Relationship Specialty Start Date End Date Etelvina Del Cid MD [address] [facility] [address] [place] [address] PCP - General 08/14/16 03/10/19 No, Physician PCP - General 03/11/19 03/12/19 Jann Burrows MD [address] [place] [address] PCP - General Hematology 03/13/19 10/28/21 Keila Jimenez MD [address] [place] [address] PCP - General 10/29/21 Mariana Monique MD [address] [place] [address] Referring Physician Internal Medicine 01/17/20 documented as of this encounter
--- OUTSIDE RECORDS SUMMARY | 2024-05-10 20:23 | XMS_ITS | Encounter Summary ---
Author Organization [facility] Address [address] [place] [address] Phone Care Team Providers Care Foot Specialist Name Role Phone Etelvina Del Cid MD Primary Care Provider + Reason for Visit * Reason Comments Follow-up Encounter Details Date Type Department Care Team (Late st Contact Info) Description 10/10/2017 8:20 AM CDT Office Visit [facility] Diabetes and Nutrition Services [address] [facility] [address] [place] [address] Debbie Bowie MD [address] [place] [address] Weight loss counseling, encounter for [...] file Legal Sex Male 5:01 AM GAS REVERSER Gender Identity Male 12/18/2017 12:38 PM CDT [...] sleep documented in this encounter Care Teams Foot Specialist Relationship Specialty Start Date End Date Etelvina Del Cid MD [address] [place] [address] [address] [place] [address] [place] [address] PCP - General 08/14/16 03/10/19 documented as of this encounter
--- OUTSIDE RECORDS SUMMARY | 2024-05-10 20:23 | XMS_ITS | Encounter Summary ---
Author Organization [facility] Facility Care Team Providers Care Echo Tech Name Role Phone Unavailable Primary Care Provider Unavailabl e Encounter Details Date Type Department Care Team (Late st Contact Info) Description 12/13/2014 - 12/13/2014 11:59 PM CDT Hospital Encounter [facility] Astrid Mcclain MD [address] [facility] [address] [place] [address] Nonspecific (abnormal) findings on radiological and other examination of other intrathoracic organs; Undiagnosed cardiac murmurs Social History Tobacco Use Types Packs/Day Years Used Date Smoking Tobacco: Never Assessed Sex and Gender Information Value Date Recorded Sex Assigned at Not on file 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 ACC# ??Date Time ??Exam [id number] Dec 13, 2014 09:41:00 [id number] MR Cardiac M&Func wwo cont [id number] Dec 13, 2014 09:43:00 [id number] MR Cardiac Flow Velocity [facility]# ??Date Time ??Exam [id number] Dec 13, 2014 09:41:00 [id number] MR Cardiac M&Func wwo cont [id number] Dec 13, 2014 09:43:00 [id number] MR Cardiac Flow Velocity EXAMINATION: ?Cardiac MRI [...] Septum: 16 mm Free wall: 10 mm [place]: Septum: 10 mm Free wall: 10 mm [...] agrees with it. ACC# Date Time Exam [id number] Dec 13, 2014 09:41:00 [id number] MR Cardiac M&Func wwo cont [id number] Dec 13, 2014 09:43:00 [id number] MR Cardiac Flow Velocity [facility]# Date Time Exam [id number] Dec 13, 2014 09:41:00 [id number] MR Cardiac M&Func wwo cont [id number] Dec 13, 2014 09:43:00 [id number] MR Cardiac Flow Velocity EXAMINATION: Cardiac MRI [...] Septum: 16 mm Free wall: 10 mm [place]: Septum: 10 mm Free wall: 10 mm [...] agrees with it. ACC# ??Date Time ??Exam [id number] Dec 13, 2014 09:41:00 [id number] MR Cardiac M&Func wwo cont [id number] Dec 13, 2014 09:43:00 [id number] MR Cardiac Flow Velocity [facility]# ??Date Time ??Exam [id number] Dec 13, 2014 09:41:00 [id number] MR Cardiac M&Func wwo cont [id number] Dec 13, 2014 09:43:00 [id number] MR Cardiac Flow Velocity EXAMINATION: ?Cardiac MRI [...] Septum: 16 mm Free wall: 10 mm [place]: Septum: 10 mm Free wall: 10 mm [...] MARS M.D. on Dec 13 2014 ??6:33P [id number] Procedure Note Provider, MD iMa - 09/06/2016 EULALIA MARS M.D. ERIBERTO FOSS M.D. FINAL REPORT The radiology attending physician has personally reviewed this study, and has reviewed and/or edited this written report and agrees with it. ACC# Date Time Exam [id number] Dec 13, 2014 09:41:00 [id number] MR Cardiac M&Func wwo cont [id number] Dec 13, 2014 09:43:00 [id number] MR Cardiac Flow Velocity ACC# Date Time Exam [id number] Dec 13, 2014 09:41:00 [id number] MR Cardiac M&Func wwo cont [id number] Dec 13, 2014 09:43:00 [id number] MR Cardiac Flow Velocity EXAMINATION: Cardiac MRI [...] Septum: 16 mm Free wall: 10 mm [place]: Septum: 10 mm Free wall: 10 mm [...] MARS M.D. on Dec 13 2014 6:33P [id number] Historical Provider IMNabila MRI PROCEDURES Final Result [...]
--- OUTSIDE RECORDS SUMMARY | 2024-05-10 20:23 | XMS_ITS | Encounter Summary ---
Author Organization [facility] Address [address] [place] [address] Phone Care Team Providers Care Social Service Coordinator Name Role Phone Etelvina Del Cid MD Primary Care Provider + Encounter Details Date Type Department Care Team (Late st Contact Info) Description 04/16/2018 11:30 AM CERTIFIED NURSES' AIDE Office Visit [facility] Cardiology [address] [facility] Advanced Medicine 8th [place] [address] [place] [address] Jef Walton MD [address] [place] [address] Asymmetric septal hypertrophy (CMS/HCC) (Primary Dx); Benign [...] file Legal Sex Male 5:01 AM CERTIFIED NURSES' AIDE Gender Identity Male 12/18/2017 12:38 PM CDT Sexual Orientation Not on file documented as of this encounter Last Filed Vital Signs Vital Sign Reading Time Taken Comments Blood Pressure 142/89 04/16/2018 11:13 AM CERTIFIED NURSES' AIDE Pulse 80 04/16/2018 11:13 AM CERTIFIED NURSES' AIDE Temperature 36.6 ??C (97.9 ??F) 04/16/2018 1 1:13 AM CERTIFIED NURSES' AIDE Respiratory Rate - - Oxygen Saturation 96% 04/16/2018 11: 13 AM CERTIFIED NURSES' AIDE Inhaled Oxygen Concentration - - Weight 212.8 kg (469 lb 3.2 oz) 018 11:13 AM CERTIFIED NURSES' AIDE Height - - Body Mass Index 51.54 10/10/2017 8:06 AM CDT documented in this encounter Patient Instructions * Patient Instructions* Jef Walton MD - 04/16/2018 11:30 AM CERTIFIED NURSES' AIDE Switch Identity Governance for drug prices Start indapamide 1.25 mg once daily for hypertension. Continue carvedilol 25 mg twice daily. Monitor your blood pressure, call in 2 weeks. Be careful to limit salt intake. I will discuss cardiac MRI with our radiologists. IFIED NURSES' AIDE IFIED NURSES' AIDE IFIED NURSES' AIDE documented in this encounter Ordered Prescriptions Prescription Sig Dispense Quantity Refills Last Filled Start Date End Date indapamide (LOZOL) 1.25 mg tablet Take 1 tablet (1.25 mg total) by mouth every morning. 30 tablet 11 04/16/2018 04/16/2018 documented in this encounter Progress Notes * Jef Walton MD - 04/16/2018 11:30 AM CST Patient Name: Geraldo Velez : 1995 Date of Service: 04/16/2018 [...] further assistance. Sincerely, Jef Walton MD, MPHS, [facility] H[facility] Detectivecrabber Cardiovascular Division [facility] --- Please note: This note was generated in part using voice-recognition software and may contain director of front office errors. IFIED NURSES' AIDE documented in this encounter Plan of Treatment Not on file documented as of this encounter Visit Diagnoses Diagnosis Asymmetric septal hypertrophy- Primary Benign essential hypertension Essential hypertension, benign Morbid obesity with BMI of 50.0-59.9, adult (HCC) documented in this encounter Care Teams Social Service Coordinator Relationship Specialty Start Date End Date Etelvina Del Cid MD [address] [place] [address] PCP - General 08/14/16 03/10/19 documented as of this encounter
--- OUTSIDE RECORDS SUMMARY | 2024-05-10 20:23 | XMS_ITS | Encounter Summary ---
Author Organization [facility] Healthcare Address [address] [place] [address] Care Team Providers Care Capping Machine Operator Name Role Phone Etelvina Del Cid MD Primary Care Provider + Encounter Details Date Type Department Care Team (Latest Contact Info) Description 06/16/2017 8:58 PM BLENDER CONVEYOR OPERATOR - 06/17/2017 3:26 AM BLENDER CONVEYOR OPERATOR Hospital Encounter [facility] Emergency Department [address] [place] [address] Edilberto Noonan MD [address] [facility] [address] [place], [place] [id number] Discharge Disposition: Discharge to home or self care Social History Tobacco Use Types Packs/Day Years Used Date Smoking Tobacco: Never Assessed Sex and Gender Information Value Date Recorded Sex Assigned at Not on file Legal Sex Male 5:01 AM BLENDER CONVEYOR OPERATOR Gender Identity Male 12/18/2017 12:38 PM [...] LATERAL 2 VIEWS Routine 06/17/2017 6:18 AM BLENDER CONVEYOR OPERATOR DIFFERENTIAL AUTO STAT 06/17/2017 12: 41 AM BLENDER CONVEYOR OPERATOR CBC WITH AUTO DIFFERENTIAL STAT 06/17/2017 12:41 AM BLENDER CONVEYOR OPERATOR TROPONIN I STAT 06/17/2017 12:41 AM BLENDER CONVEYOR OPERATOR BASIC METABOLIC PANEL STAT 06/17/2017 12:41 AM BLENDER CONVEYOR OPERATOR DISCHARGE LABORATORY CUMULATIVE REPORT 06/17/2017 12:00 AM BLENDER CONVEYOR OPERATOR documented in this encounter Results * XR Chest Pa Lateral 2 Views (06/17/2017 6:18 AM BLENDER CONVEYOR OPERATOR) Anatomical Region Laterality Modality Body, Chest N/A Radiographic Lizzie ging 06/17/2017 6:18 AM BLENDER CONVEYOR OPERATOR Narrative 06/17/2017 4:51 PM BLENDER CONVEYOR OPERATOR Roma KITCHEN M.D. FINAL REPORT The radiology attending physician has personally reviewed this study, and has reviewed and/or edited this written report and agrees with it. ACC# ??Date Time ??Exam [id number] Jun 17, 2017 00:18:00 [id number] Chest [address] PA/Lat EXAMINATION: ??2 [...] JENKINS M.D. on Jun 17 2017 10:49A [id number] KITCHEN M.D. FINAL REPORT The radiology attending physician has personally reviewed this study, and has reviewed and/or edited this written report and agrees with it. Attending: ??SARAN, ??EDILBERTO Requesting: ??LOYD, ??HEIDI Requesting Fax: ?? Attending Fax: ?? Attending ID: ??[id number] Requesting ID: ??[id number] Report To 1 ID: ??[id number] ? Report To 1 Name: ??, ?? Report To 1 FAX: ?? NextGen Order #: ?? Procedure Note Miscellaneous, Not In File - 06/17/2017 Roma KITCHEN M.D. FINAL REPORT The radiology attending physician has personally reviewed this study, and has reviewed and/or edited this written report and agrees with it. ACC# Date Time Exam [id number] Jun 17, 2017 00:18:00 [id number] Chest [address] PA/Lat EXAMINATION: 2 [...] JENKINS M.D. on Jun 17 2017 10:49A [id number] KITCHEN M.D. FINAL REPORT The radiology attending physician has personally reviewed this study, and has reviewed and/or edited this written report and agrees with it. Attending: EDILBERTO NOONAN Requesting: HEIDI TOPETE Requesting Fax: Attending Fax: Attending ID: [id number] Requesting ID: [id number] Report To 1 ID: [id number] Report To 1 Name: , Report To 1 FAX: NextGen Order #: us Heidi Topete NURSING TECHN IMG XR PROCEDURES Final Res ult * Troponin I (06/17/2017 12:41 AM BLENDER CONVEYOR OPERATOR) Troponin I <0.03 0.00 - 0.03 ng/mL [facility] Comment: Interpretive Data Serial determinations are recommended for the diagnosis of myocardial infarction (Third [place] Definition of Myocardial Infarction. ??J Am Butch Cardiol 2012;60:1581-98). Current interpretive data was last revised on 13. Blood specimen (specimen) 06/17/2017 12:41 AM BLENDER CONVEYOR OPERATOR 06/17/2017 12:49 AM BLENDER CONVEYOR OPERATOR Narrative [facility] - 06/17/2017 1:20 AM BLENDER CONVEYOR OPERATOR us Magno Nuñez MD LAB BLOOD ORDERABLES Final Res ult [facility] Department [place] [address] * Basic metabolic panel (06/17/2017 12:41 AM BLENDER CONVEYOR OPERATOR) Sodium 142 135 - 145 mmol/L [facility] Potassium, pl 4.0 3.3 - 4.9 mmol/L [facility] Chloride 107 97 - 110 mmol/L [facility] CO2 26 22 - 32 mmol/L [facility] BUN 15 8 - 25 mg/dL [facility] Glucose 88 70 - 199 mg/dL [facility] Comment: Interpretive Data Fasting glucose >/= [...] 2017. Creatinine 0.96 0.80 - 1.30 mg/dL [facility] Calcium 9.8 8.5 - 10.3 mg/dL [facility] Anion gap 9 2 - 15 mmol/L [facility] Blood specimen (specimen) 06/17/2017 12:41 AM BLENDER CONVEYOR OPERATOR 06/17/2017 12:49 AM BLENDER CONVEYOR OPERATOR Narrative [facility] - 06/17/2017 1:14 AM BLENDER CONVEYOR OPERATOR Magno Nuñez MD LAB BLOOD ORDERABLES Final Res ult Performing Organization Address [facility] Co de Phone Number [facility] [place] [address] * Differential, auto (06/17/2017 12:41 AM BLENDER CONVEYOR OPERATOR) Neutrophil pct 54.1 % [facility] Imm gran pct 0.1 % [facility] Lymphocyte pct 33.7 % [facility] Monocyte pct 8.6 % [facility] Eosinophil pct 3.0 % [facility] Basophil pct 0.5 % [facility] Neutrophil abs 4.02 1.70 - 6.50 K/cumm [facility] Imm gran abs 0.01 0.00 - 0.10 K/cumm [facility] Lymphocyte abs 2.51 0.80 - 3.30 K/cumm [facility] Monocyte abs 0.64 0.20 - 0.80 K/cumm [facility] Eosinophil abs 0.22 0.00 - 0.50 K/cumm [facility] Basophil abs 0.04 0.00 - 0.10 K/cumm [facility] Blood specimen (specimen) 06/17/2017 12:41 AM BLENDER CONVEYOR OPERATOR 06/17/2017 12:49 AM BLENDER CONVEYOR OPERATOR [facility] - 06/17/2017 12:56 AM BLENDER CONVEYOR OPERATOR Magno Nuñez MD LAB BLOOD ORDERABLES Final Res ult Performing Organization Address [facility] Co de Phone Number [facility] Department [place] [address] * CBC with auto differential (06/17/2017 12:41 AM BLENDER CONVEYOR OPERATOR) WBC 7.4 3.8 - 9.9 K/cumm [facility] RBC 5.49 4.30 - 5.80 M/cumm [facility] Hgb 16.0 13.0 - 17.5 g/dL [facility] Hct 45.6 38.9 - 50.3 % [facility] MCV 83.1 81.3 - 96.4 fL [facility] MCH 29.1 27.1 - 33.3 pg [facility] MCHC 35.1 32.3 - 35.7 g/dL [facility] RDW CV 12.4 11.1 - 14.9 % [facility] RDW SD 37.7 35.7 - 48.1 fL [facility] Plt 294 150 - 400 K/cumm [facility] MPV 9.7 9.1 - 12.3 fL [facility] NRBC abs 0.00 0.00 - 0.01 K/cumm [facility] Blood specimen (specimen) 06/17/2017 12:41 AM BLENDER CONVEYOR OPERATOR 06/17/2017 12:49 AM BLENDER CONVEYOR OPERATOR Narrative [facility] - 06/17/2017 12:56 AM BLENDER CONVEYOR OPERATOR us Magno Nuñez MD LAB BLOOD ORDERABLES Final Res ult [facility] Department [place] [address] * DISCHARGE LABORATORY CUMULATIVE REPORT (06/17/2017 12:00 AM BLENDER CONVEYOR OPERATOR) Narrative 06/17/2017 12:00 AM BLENDER CONVEYOR OPERATOR Ordered by an unspecified provider. Historical Provider LAB BLOOD ORDERABLES Melina l Result documented in this encounter Visit Diagnoses Not on filedocumented in this encounter Care Teams Capping Machine Operator Relationship Specialty Start Date End Date Etelvina Del Cid MD [address] [place] [address] PCP - General 08/14/16 03/10/19 documented as of this encounter
--- OUTSIDE RECORDS SUMMARY | 2024-05-10 20:23 | XMS_ITS | Encounter Summary ---
Author Organization [facility] Healthcare Address [address] [place] [address] Care Team Providers Care Silk Screen Operator Name Role Phone Jann Burrows MD Primary Care Provider [phone] Reason for Visit * Reason Onset Date Comments Follow-up 03/13/2019 Encounter Details Date Type Department Care Team (Late st Contact Info) Description 03/13/2019 [address]phone [facility] Primary [facility] Medicine Clinic [address] [facility] [address] [place] [address] Jann Burrows MD [address] [facility] [address] [place] [address] Follow-up Social History Tobacco Use Types Packs/Day Years Used Date Smoking Tobacco: Never Smokeless Tobacco: Never Alcohol Use Standard Drinks/Week Comments Yes 24 (1 standard drink = 0.6 oz pu re alcohol) CAGE negative. Case per week. 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 Pharm contact: [phone] Jose Campoverde [phone] IDE EVENT SALES SPECIALIST documented in this encounter Plan of Treatment Not on file documented as of this encounter Visit Diagnoses Not on filedocumented in this encounter Care Teams Silk Screen Operator Relationship Specialty Start Date End Date Jann Burrows MD [address] [facility] [address] [place] [address] PCP - General Hematology 03/13/19 10/28/21 documented as of this encounter
--- OUTSIDE RECORDS SUMMARY | 2024-05-10 20:23 | XMS_ITS | Encounter Summary ---
Author Organization [facility] Address [address] [place] [address] Phone Care Team Providers Care Supervisor Rolling Room Name Role Phone Etelvina Del Cid MD Primary Care Provider + Encounter Details Date Type Department Care Team (Late st Contact Info) Description 04/22/2018 Telephone [facility] Cardiology [address] [facility] Advanced Medicine 8th [place] [address] [place] [address] Jef Walton MD [address] [facility] [address] [place], [place] [address] Social History Tobacco Use Types Packs/Day Years Used Date Smoking Tobacco: Never Smokeless Tobacco: Never Alcohol Use Standard Drinks/Week Comments No 0 (1 standard drink = 0.6 oz pur e alcohol) Sex and Gender Information Value Date Recorded Sex Assigned at Not on file Legal Sex Male 5:01 AM PROCEDURE WRITER Gender Identity Male 12/18/2017 12:38 PM CDT Sexual Orientation Not on file documented as of this encounter Miscellaneous Notes * Telephone Encounter - Piedad Velez RN - 04/22/2018 12:10 PM PROCEDURE WRITER See other note. EDURE WRITER * Telephone Encounter - Sven Marcos - 04/22/2018 12:03 PM CST jam Pt ret call EDURE WRITER documented in this encounter Plan of Treatment Not on file documented as of this encounter Visit Diagnoses Not on filedocumented in this encounter Care Teams Supervisor Rolling Room Relationship Specialty Start Date End Date Etelvina Del Cid MD [address] [place] [address] PCP - General 08/14/16 03/10/19 documented as of this encounter
--- OUTSIDE RECORDS SUMMARY | 2024-05-10 20:23 | XMS_ITS | Encounter Summary ---
Author Organization [facility] Address [address] [place] [address] Phone Care Team Providers Care Sample Body Builder Name Role Phone Jann Burrows MD Primary Care Provider Reason for Visit * Consultation (Routine) - Closed Specialty Diagnoses / Procedures Referred By Contac t Referred To Contact Endocrinology Diagnoses Diabetic ketoacidosis without coma associated with other specified diabetes mellitus (HCC) Peter Styles Jr., MD Phone: tel: fax: [facility] (All Locations) Referral ID Status Reason Start Date Expiration Date V isits Requested Visits Authorized [id number] Closed Specialty Services Required 03/08/2019 05/05/2019 4 4 Encounter Details Date Type Department Care Team (Latest Contact Info) Description 03/19/2019 1:00 PM FLYING II INSTRUCTOR Office Visit 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 Not on file Not on file documented as of this encounter Last Filed Vital Signs Vital Sign Reading Time Taken Comments Blood Pressure 118/74 03/19/2019 1:04 PM FLYING II INSTRUCTOR Pulse 79 03/19/2019 1:04 PM FLYING II INSTRUCTOR Temperature 35.4 ??C (95.7 ??F) 03/19/2019 1:04 PM CS T Respiratory Rate - - Oxygen Saturation - - Inhaled Oxygen Concentration - - Weight 206.4 kg (455 lb) 03/19/2019 1:04 PM FLYING II INSTRUCTOR Height 200.7 cm (6' 7 ) 03/19/2019 1:04 PM FLYING II INSTRUCTOR Body Mass Index 51.26 03/19/2019 1:04 PM FLYING II INSTRUCTOR documented in this encounter Patient Instructions * Patient Instructions* Peter Styles MD - 03/19/2019 1:00 PM FLYING II INSTRUCTOR 1. You have excellent glucose control 2. [...] Try for a 1400 calorie diet (balanced). NG II INSTRUCTOR NG II INSTRUCTOR NG II INSTRUCTOR documented in this encounter Ordered Prescriptions Prescription [...] ketones 3.4, AG 22). Admitted to medicine [facility] 03/03/19. At arrival to ED, chest pain [...] and Review of Systems from the 03-02-19 [facility] Physical Exam: Constitutional: Vital signs were reviewed [...] next visit. Medications refilled. RTC 3 months. NG II INSTRUCTOR documented in this encounter Plan of Treatment Not on file documented as of this encounter Procedures Procedure Name Priority Date/Time Associated Diagnosis Comments POCT HEMOGLOBIN A1C Routine 03/19/2019 1 :06 PM FLYING II INSTRUCTOR Diabetic ketoacidosis without coma associated with other specified diabetes mellitus (CMS/HCC) POCT GLUCOSE Routine 03/19/2019 1:06 PM FLYING II INSTRUCTOR Diabetic ketoacidosis without coma associated with other specified diabetes mellitus (CMS/HCC) documented in this encounter Results * POCT hemoglobin A1c (03/19/2019 1:06 PM FLYING II INSTRUCTOR) Hemoglobin A1C, POC 7.9 03/19/2019 1:06 PM FLYING II INSTRUCTOR us Peter Styles Jr., MD POINT OF CARE TEST OR DERABLES Final Result * POCT glucose (03/19/2019 1:06 PM FLYING II INSTRUCTOR) Glucose Blood, POC 120 mg/dL Blood specimen (specimen) 03/19/2019 1:06 PM FLYING II INSTRUCTOR Peter Styles Jr., MD POINT OF CARE [...] a day with meals Reorder 03/08/2019 03/19/2019 [facility] Patient needs in room for diabetes education [...] 03/19/2019 documented in this encounter Care Teams Sample Body Builder Relationship Specialty Start Date End Date Jann Burrows MD [address] [place] [address] PCP - General Hematology 03/13/19 10/28/21 documented as of this encounter
--- OUTSIDE RECORDS SUMMARY | 2024-05-10 20:23 | XMS_ITS | Encounter Summary ---
Author Organization [facility] Healthcare Address [address] [place] [address] Care Team Providers Care Economic Historian Name Role Phone Etelvina Del Cid MD Primary Care Provider + Encounter Details Date Type Department Care Team (Latest Contact Info) Description 09/06/2017 9:39 AM CDT - 09/06/2017 11:59 PM CDT Hospital Encounter [facility] OP INTERIM [phone] eDbbie Perales MD [address] [facility] [address] [place] [address] Discharge Disposition: Discharge to home or self care Social History Tobacco Use Types Packs/Day Years Used Date Smoking Tobacco: Never Sex and Gender Information Value Date Recorded Sex Assigned at Not on file Legal Sex Male 5:01 AM OFFSET LITHOGRAPHIC PRESS SETTER Gender Identity Male 12/18/2017 12:38 PM [...] agrees with it. ACC# ??Date Time ??Exam [id number] September 06, 2017 11:33:00 [id number] [employer] EXAMINATION: ??LIMITED ABDOMINAL SONOGRAM [...] DICKSON M.D. on Sep 06 2017 12:16P [id number] ESPANA M.D. FINAL REPORT The radiology attending physician has personally reviewed this study, and has reviewed and/or edited this written report and agrees with it. Attending: ??ANGELLA, ??DEBBIE Requesting: ??ANGELLA, ??DEBBIE Requesting Fax: ?? Attending Fax: ?? Attending ID: ??[id number] Requesting ID: ??[id number] Report To 1 ID: ??[id number] ? Report To 1 Name: ??, ?? Report To 1 FAX: ?? NextGen Order #: ?? Procedure Note Miscellaneous, Not In File - 09/06/2017 Roma ESPANA M.D. FINAL REPORT The radiology attending physician has personally reviewed this study, and has reviewed and/or edited this written report and agrees with it. ACC# Date Time Exam [id number] September 06, 2017 11:33:00 [id number] [employer] EXAMINATION: LIMITED ABDOMINAL SONOGRAM [...] DICKSON M.D. on Sep 06 2017 12:16P [id number] ESPANA M.D. FINAL REPORT The radiology attending physician has personally reviewed this study, and has reviewed and/or edited this written report and agrees with it. Attending: DEBBIE PERALES Requesting: DEBBIE PERALES Requesting Fax: Attending Fax: Attending ID: [id number] Requesting ID: [id number] Report To 1 ID: [id number] Report To 1 Name: , Report To 1 FAX: NextGen Order #: us Debbie Perales MD [facility] US PROCEDURES Final Result * Iron profile (09/06/2017 12:01 PM CDT) Iron 122 50 - 150 mcg/dL TRACIE ELIZONDO Comment:Testing performed by : [facility], [address] [place] [address], [place]., [address] TIBC 368 250 - 400 mcg/dL TRACIE ELIZONDO Comment:Testing performed by : [facility], [address] [place] [address]., [address] Transferrin 263 200 - 360 mg/dL TRACIE ELIZONDO Comment:Testing performed by : [facility], [address] [place] [address]., [address] Transferrin saturation 33.2 20.0 - 50.0 % TRACIE ELIZONDO Comment:Testing performed by : [facility], [address] [place] [address]., [address] Blood specimen (specimen) 09/06/2017 12:01 PM CDT 09/06/2017 2:00 PM CDT Narrative TRACIE ELIZONDO - 09/06/2017 2:46 PM CDT Debbie Perales MD LAB BLOOD ORDERABLES Fin al Result Performing Organization Address [facility] Co de Phone Number [facility] [address] [employer] [address] * Folate (09/06/2017 12:01 PM CDT) Folic acid 11.3 >=5.0 ng/mL TRACIE ELIZONDO Comment:Testing performed by : [facility], [address] [place] [address]., [address] Blood specimen (specimen) 09/06/2017 12:01 PM CDT 09/06/2017 2:00 PM CDT Narrative TRACIE ELIZONDO - 09/06/2017 2:46 PM CDT Debbie Perales MD LAB BLOOD ORDERABLES Fin al Result Performing Organization Address City/[facility] Co de Phone Number [facility] [address] [employer] [address] * Vitamin B12 (09/06/2017 12:01 PM CDT) Vitamin B12 524 210 - 900 pg/mL TRACIE ELIZONDO Comment:Testing performed by : [facility], [address] [place] [address]., [address] Blood specimen (specimen) 09/06/2017 12:01 PM CDT 09/06/2017 2:00 PM CDT Narrative TRACIE ELIZONDO - 09/06/2017 2:46 PM CDT Debbie Perales MD LAB BLOOD ORDERABLES Fin al Result Performing Organization Address [facility] de Phone Number TRACIE DIAZCH [address] [employer] [place], [place] [id number] * Ferritin (09/06/2017 12:01 PM CDT) Pathologist [facility] Ferritin 337.7 30.0 - 400.0 ng/mL TRACIE ELIZONDO Comment: Interpretive Data On July 31, 2016 new Chemistry Instrumentation was implemented. ??If you have any questions, please contact the Laboratory at [phone]. Testing performed by: [facility], [address] [place] [address]., [address] Blood specimen (specimen) 09/06/2017 12:01 PM CDT 09/06/2017 2:00 PM CDT Narrative TRACIE ELIZONDO - 09/06/2017 2:46 PM CDT Debbie Perales MD LAB BLOOD ORDERABLES Fin al Result Performing Organization Address [facility] Co de Phone Number TRACIE DIAZCH [address] [address] [address] * Differential, auto (09/06/2017 11:00 AM CDT) [...] MD LAB BLOOD ORDERABLES Fin al Result [facility] [address] [facility]. [place] [address] * CBC with auto differential (09/06/2017 11:00 AM CDT) WBC 6.7 3.8 - 9.9 K/cumm [facility] W RBC 5.29 4.30 - 5.80 M/cumm [facility] Hgb 15.8 13.0 - 17.5 g/dL [facility] Hct 45.2 38.9 - 50.3 % [facility] MCV 85.4 81.3 - 96.4 fL [facility] MCH 29.9 27.1 - 33.3 pg [facility] MCHC 35.0 32.3 - 35.7 g/dL [facility] RDW CV 12.3 11.1 - 14.9 % [facility] RDW SD 37.9 35.7 - 48.1 fL [facility] Plt 274 150 - 400 K/cumm [facility] W MPV 9.6 9.1 - 12.3 fL [facility] NRBC abs 0.00 0.00 - 0.01 K/cumm [facility] Blood specimen (specimen) 09/06/2017 11:00 AM CDT 09/06/2017 11:54 AM CDT Narrative TRACIE ELIZONDO - 09/06/2017 12:00 PM CDT Debbie Perales MD LAB BLOOD ORDERABLES Fin al Result Performing Organization Address [facility] Co de Phone Number [facility] [address] [facility] Department [place] [address] * (ABNORMAL) Testosterone, free, total (09/06/2017 10:52 AM CDT) [facility] Testosterone 187(L) 240 - 950 ng/dL TRACIE ELIZONDO Comment: ADDITIONAL INFORMATION Testing performed by Liquid Chromatography-Tandem Mass Spectrometry (LC-MS/MS). This test was developed and its performance characteristics determined by [facility] in a manner consistent with CLIA requirements. This test has not been cleared or approved by the U.S. Food and Drug Administration. Test Performed by: [facility] [address] [place] [address] Testosterone, free 6.92 5.36 - 21.2 ng/dL TRACIE ELIZONDO Comment: ADDITIONAL INFORMATION Testing performed by [facility]. This test was developed and its performance characteristics determined by [facility] in a manner consistent with CLIA requirements. This test has not been cleared or approved by the U.S. Food and Drug Administration. Blood specimen (specimen) 09/06/2017 10:52 AM CDT 09/06/2017 11:02 AM CDT Narrative TRACIE BRANDIEDEN - 09/10/2017 11:15 AM CDT Debbie Perales MD LAB BLOOD ORDERABLES Fin al Result Performing Organization Address [facility] Co de Phone Number TRACIE DIAZCH [address] [address] [place] [address] * Hepatitis panel, acute (09/06/2017 10:52 AM CDT) Hep A IgM Nonreactive Nonreactive TRACIE DIAZ Comment: Interpretive Data If test is reported as GRAYZONE, new sample should be drawn in two weeks for testing. Current interpretive data was last revised on 2016. Testing performed by: [facility], [address] [place]., [address] Hep B core IgM Nonreactive Nonreactive TRACIE [facility] Comment: Interpretive Data If test is reported as GRAYZONE, new sample should be drawn for testing. Current interpretive data was last revised on 2016. Testing performed by: [facility], [address] [place]., [address] Hep C Ab Nonreactive Nonreactive [facility] Comment: Interpretive Data Positive and greyzone results should be confirmed by a molecular method. If positive or greyzone, a second separately collected sample should be submitted for Hepatitis C Virus RNA. Detection and Quantitation by Real-Time Reverse Air Sampler-PCR.Current Interpretive data was last revised on 2016. Testing performed by: [facility], [address] [place]., [address] HepBsAg Nonreactive Nonreactive TRACIE [facility] Comment:Testing performed by : [facility], [address] [place] [address]., [address] Blood specimen (specimen) 09/06/2017 10:52 AM CDT 09/06/2017 1:28 PM CDT Narrative TRACIE ELIZONDO - 09/07/2017 8:57 AM CDT Debbie Perales MD LAB MICROBIOLOGY - GENER AL ORDERABLES Edited Result - Final TRACIE DIAZCH [address] [address] [place] [address] * (ABNORMAL) Vitamin D 25 hydroxy (09/06/2017 10:52 AM CDT) Vitamin D 25-OH 16(L) 30 - 80 ng/mL ESVINNER JOE Comment:Testing performed by : [facility], [address] [facility], [place]., [address] Blood specimen (specimen) 09/06/2017 10:52 AM CDT 09/06/2017 1:29 PM CDT Narrative TRACIE PAZWCH - 09/06/2017 2:29 PM CDT Debbie Perales MD LAB BLOOD ORDERABLES Fin al Result Performing Organization Address [facility] Co de Phone Number [facility] [address] [address] [employer] [place], [place] [id number] * (ABNORMAL) Hepatic function panel (09/06/2017 10:52 AM CDT) Pathologist [facility] AST 43 10 - 50 Units/L CERNER [...] ORDERABLES Fin al Result Performing Organization Address City/[facility]/ZIP Co de Phone Number [facility] [address] [address] [employer] [place], [place] [id number] * TSH reflex to free T4 (09/06/2017 10:52 AM CDT) TSH 2.56 0.30 - 4.20 mcUnits/mL TRACIE ELIZONDO Blood specimen (specimen) 09/06/2017 10:52 AM CDT 09/06/2017 11:02 AM CDT Narrative TRACIE ELIZONDO - 09/06/2017 11:36 AM CDT Debbie Perales MD LAB BLOOD ORDERABLES Arsh cristel Result - Final [facility] [address] [facility] [place] [address] * DISCHARGE LABORATORY CUMULATIVE REPORT (09/06/2017 12:00 AM CDT) Narrative 09/06/2017 12:00 AM CDT Ordered by an unspecified provider. Historical Provider LAB BLOOD ORDERABLES Melina l Result documented in this encounter Visit Diagnoses Not on filedocumented in this encounter Care Teams Economic Historian Relationship Specialty Start Date End Date Etelvina Del Cid MD [address] [place] [address] [address] PCP - General 08/14/16 03/10/19 documented as of this encounter
--- OUTSIDE RECORDS SUMMARY | 2024-05-10 20:23 | XMS_ITS | Encounter Summary ---
Author Organization [facility] Address [address] [place] [address] Phone Care Team Providers Care Salesperson Jewelry Name Role Phone Etelvina Del Cid MD Primary Care Provider + Encounter Details Date Type Department Care Team (Late st Contact Info) Description 04/22/2018 Orders Only [facility] Cardiology [address] [facility] 8th [place] [address] [place] [address] Jef Walton MD [address] [facility] [address] [place] [address] Asymmetric septal hypertrophy (CMS/HCC) (Primary Dx) Social History Tobacco Use Types Packs/Day Years Used Date Smoking Tobacco: Never Smokeless Tobacco: Never Alcohol Use Standard Drinks/Week Comments No 0 (1 standard drink = 0.6 oz pur e alcohol) Sex and Gender Information Value Date Recorded Sex Assigned at Not on file Legal Sex Male 5:01 AM CONE BAKER MACHINE Gender Identity Male 12/18/2017 12:38 PM CDT Sexual Orientation Not on file documented as of this encounter Plan of Treatment Not on file documented as of this encounter Visit Diagnoses Diagnosis Asymmetric septal hypertrophy- Primary documented in this encounter Care Teams Salesperson Jewelry Relationship Specialty Start Date End Date Etelvina Del Cid MD [address] [facility] [address] [place] [address] PCP - General 08/14/16 03/10/19 documented as of this encounter
--- OUTSIDE RECORDS SUMMARY | 2024-05-10 20:23 | XMS_ITS | Encounter Summary ---
Author Organization [facility] Address [address] [place] [address] Phone Care Team Providers Care Battery Installer Name Role Phone Jann Burrows MD Primary Care Provider [phone] Encounter Details Date Type Department Care Team (Late st Contact Info) Description 03/20/2019 Telephone [facility] Endocrinology Metabolism and Lipid [address] [facility] 5th [place] [address] [place] [address] Che Duff LPN Social History Tobacco Use Types Packs/Day Years Used Date Smoking Tobacco: Never Smokeless Tobacco: Never Alcohol Use Standard Drinks/Week Comments Yes 24 (1 standard drink = 0.6 oz pu re alcohol) CAGE negative. Case per week. 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 He should take 80 units U500 three times daily. MACHINE OPERATOR * Telephone Encounter - Che Duff LPN - 03/20/2019 2:25 PM CST Can you clarify the instruction for the U500? Your note says 90 units TID, but the script say 80 units on the U100. MACHINE OPERATOR documented in this encounter Plan of Treatment Not on file documented as of this encounter Visit Diagnoses Not on filedocumented in this encounter Care Teams Battery Installer Relationship Specialty Start Date End Date Jann Burrows MD [address] [facility] [address] [place] [address] PCP - General Hematology 03/13/19 10/28/21 documented as of this encounter
--- OUTSIDE RECORDS SUMMARY | 2024-05-10 20:23 | XMS_ITS | Encounter Summary ---
Author Organization [facility] Address [address] [place] [address] Phone Care Team Providers Care Cloud Consultant Name Role Phone Jann Burrows MD Primary Care Provider [phone] Encounter Details Date Type Department Care Team (Late st Contact Info) Description 03/24/2019 Orders Only [facility] Endocrinology Metabolism and Lipid [address] [facility] 5th [place] [address] [place] [address] Peter Styles Jr., MD [address] [place], [place] [id number] Metabolic syndrome Social History Tobacco Use Types Packs/Day Years Used Date Smoking Tobacco: Never Smokeless Tobacco: Never Alcohol Use Standard Drinks/Week Comments Yes 24 (1 standard drink = 0.6 oz pu re alcohol) CAGE negative. Case per week. 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
--- OUTSIDE RECORDS SUMMARY | 2024-05-10 20:23 | XMS_ITS | Encounter Summary ---
Author Organization [facility] Address [address] [place] [address] Phone Care Team Providers Care Park Activities Coordinator Name Role Phone Shira Del Cid MD Primary Care Provider + Encounter Details Date Type Department Care Team (Late st Contact Info) Description 07/23/2018 10:30 AM CDT Office Visit [facility] Cardiology [address] [facility] 8th [place] [address] [place] [address] Jef Walton MD [address] [facility] [address] [place], [place] [id number] Benign essential hypertension (Primary Dx); Asymmetric septal [...] on file Legal Sex Male 5:01 AM BRIDGE SAW OPERATOR Gender Identity Male 12/18/2017 12:38 PM [...] Body Mass Index 51.04 05/01/2018 8:44 AM BRIDGE SAW OPERATOR documented in this encounter Patient Instructions * [...] 12:00 AM CDT SHIRA DEL CID MD [address] [place] [address] [place] [address] Patient Name: CRISTI NIXON Date of : [...] septum measuring 17 mm, primarily of the [id number] interventricular septum. There was no systolic anterior [...] 07/24/2018 11:49 AM Jef Walton M.D., MPHS, [facility] Forging Operatorparimutuel cashier JS/sll cc: SHIRA DEL CID MD / [...] documented as of this encounter Care Teams Park Activities Coordinator Relationship Specialty Start Date End Date Shira Del Cid MD [address] [place] [address] [address] PCP - General 08/14/16 03/10/19 documented as of this encounter
--- OUTSIDE RECORDS SUMMARY | 2024-05-10 20:23 | XMS_ITS | Encounter Summary ---
Author Organization [facility] Healthcare Address [address] [place] [address] Care Team Providers Care Propagation Manager Name Role Phone Jann Burrows MD Primary Care Provider [phone] Reason for Visit * Reason Comments Hospital Follow Up DKA Encounter Details Date Type Department Care Team (Late st Contact Info) Description 03/13/2019 11:15 AM DIE OUT WORKER Office Visit [facility] Primary Care Medicine Clinic [address] [facility] [address] [place] [address] Natan Laureano MD [address] [facility] [address] [place] [address] Nikita Buchanan MD [address] [facility] [id number] [place] [address] Metabolic syndrome (Primary Dx); Morbid obesity with [...] on file Legal Sex Male 5:01 AM DIE OUT WORKER Gender Identity Male 12/18/2017 12:38 PM CDT Sexual Orientation Not on file 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 Not on file Not on file documented as of this encounter Last Filed Vital Signs Vital Sign Reading Time Taken Comments Blood Pressure 153/93 03/13/2019 11:10 AM DIE OUT WORKER did not take BP meds Pulse 95 03/13/2019 11:10 AM DIE OUT WORKER Temperature 36.7 ??C (98 ??F) 03/13/2019 11: 10 AM DIE OUT WORKER Respiratory Rate 14 03/13/2019 11:1 0 AM DIE OUT WORKER Oxygen Saturation 96% 03/13/2019 11: 10 AM DIE OUT WORKER Inhaled Oxygen Concentration - - Weight 215.5 kg (475 lb) 03/13/2019 11: 10 AM DIE OUT WORKER Height 200.7 cm (6' 7 ) 03/13/2019 11:1 0 AM DIE OUT WORKER Body Mass Index 53.51 03/13/2019 11:10 AM DIE OUT WORKER documented in this encounter Patient Instructions * Patient Instructions* Nikita Buchanan MD - 03/13/2019 11:15 AM DIE OUT WORKER Get bloodwork drawn today on the fourth floor. Follow up with endocrinology as scheduled on . OUT WORKER OUT WORKER documented in this encounter Ordered Prescriptions Prescription [...] and lisinopril 5mg. Patient was seen by in service educator and nutrition to educate the patient about [...] with BMI of 50.0-59.9, adult ([facility]) 07/10/2017 HOME MEDICATIONS HOME MEDICATIONS : atorvastatin [...] Not on file Occupational History ??? 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 Financial resource strain: Not [...] file Gets together: Not on file Attends restorationism service: Not on file Active member of [...] -BMP given recent lisinopril initiation -ophthalmology referral -motion pictures cartoonist -certified adapted physical educator referral -refilled 32 gauge 5/32 inch insulin [...] carvedilol, lisinopril, and Lozol (prescribed by his preparation department supervisor Dr. Walton). Blood pressure previously very well controlled, I will make no changes today. Follow up with PCP Staffed: Amanda All other issues per PCP Nikita Buchanan MD Internal Medicine PGY-2 Cosigned by Evangelina Patel MD at 03/15/2019 5:29 AM DIE OUT WORKER OUT WORKER OUT WORKER Associated attestation - Evangelina Patel MD - 03/15/2019 5:29 AM DIE OUT WORKER I have seen and examined the patient. I agree with the findings and plan of care as documented in the resident/fellow's note. Evangelina Patel MD * Jef Craig RN - 03/13/2019 11:15 AM CST Patient indicates understanding of discharge plan of care, instructions given by MD. Patient deniesquestions. Patient escorted to the checkout desk. Patient ambulating and stable at discharge. 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 Did not take his blood pressure medicines which are carvedilol, lisinopril, and Lozol (prescribed by his preparation department supervisor Dr. Walton). Blood pressure previously very well controlled, I will make no changes today. Follow up with PCP OUT WORKER * Assessment & Plan Note - Nikita Buchanan MD - 03/13/2019 12:05 PM DIE OUT WORKER Associated Problem(s): Metabolic syndrome (Deleted) Recently admitted [...] -BMP given recent lisinopril initiation -ophthalmology referral -motion pictures cartoonist -certified adapted physical educator referral -refilled 32 gauge 5/32 inch insulin needles for U 500 -continue to emphasize importance of weight loss. I believe he would be a very good candidate for bariatric surgery if this becomes feasible OUT WORKER documented in this encounter Plan of Treatment Not on file documented as of this encounter Results * Basic metabolic panel (03/13/2019 12:30 PM DIE OUT WORKER) Sodium 142 135 - 145 mmol/L [facility] Potassium, pl 4.3 3.3 - 4.9 mmol/L [facility] Comment:Hemolyzed; (++); pot assium value may be falsely elevated by as much as 0.3 - 0.5 mmol/L. Suggest redraw and reanalysis. Chloride 107 97 - 110 mmol/L [facility] CO2 25 22 - 32 mmol/L [facility] Anion gap 10 2 - 15 mmol/L [facility] BUN 14 8 - 25 mg/dL [facility] Creatinine 0.87 0.80 - 1.30 mg/dL [facility] Glucose 90 70 - 199 mg/dL [facility] Comment: Interpretive Data Fasting glucose >/= [...] 2017. Calcium 9.4 8.5 - 10.3 mg/dL [facility] Blood specimen (specimen) 03/13/2019 12:30 PM DIE OUT WORKER 03/13/2019 1:46 PM DIE OUT WORKER Nikita Buchanan MD LAB BLOOD ORDERABLES Final Resul t [facility] [place] [address] documented in this encounter Visit Diagnoses Diagnosis Metabolic syndrome- Primary Dysmetabolic Syndrome X Morbid obesity with BMI of 50.0-59.9, adult (HCC) Essential hypertension Unspecified essential hypertension documented in this encounter Care Teams Propagation Manager Relationship Specialty Start Date End Date Jann Burrows MD [address] [facility] [address] [place] [address] PCP - General Hematology 03/13/19 10/28/21 documented as of this encounter
--- OUTSIDE RECORDS SUMMARY | 2024-05-10 20:23 | XMS_ITS | Encounter Summary ---
Author Organization [facility] Healthcare Address [address] [place] [address] Care Team Providers Care Dress Designer Name Role Phone Unavailable Primary Care Provider Unavailabl e Encounter Details Date Type Department Care Team (Late st Contact Info) Description 08/13/2016 10:22 AM CDT - 08/13/2016 11:59 PM CDT Hospital Encounter [facility] [phone] Astrid Campbell MD [address] [facility] [address] [place] [address] Discharge Disposition: Discharge to home or self care Social History Tobacco Use Types Packs/Day Years Used Date Smoking Tobacco: Never Assessed Sex and Gender Information Value Date Recorded Sex Assigned at Not on file Legal Sex Male 5:01 AM NAIL MAKER Gender Identity Male 12/18/2017 12:38 PM [...] 10:46 AM CDT) Cholesterol 174 <=199 mg/dL [facility] Comment: Interpretive Data Age less than or [...] on 2013. Triglycerides 286(H) <=129 mg/dL [facility] Comment: Interpretive Data Age less than or [...] revised on 2013. HDL 25(L) >=44 mg/dL [facility] Comment: Interpretive Data Age less than [...] on 2013. LDL, calculated 92 <=129 mg/dL [facility] Comment: Interpretive Data Age less than [...] on 2013. Non-HDL Cholesterol 149(H) <=144 mg/dL [facility] Comment: Interpretive Data Age less than [...] Campbell MD LAB BLOOD ORDERABLES Final Result [facility] Department [place] [address] * (ABNORMAL) Comprehensive metabolic panel (08/13/2016 10:46 AM CDT) Sodium 143 135 - 145 mmol/L [facility] Potassium, pl 4.5 3.3 - 4.9 mmol/L [facility] CO2 23 20 - 30 mmol/L [facility] BUN 14 8 - 25 mg/dL [facility] Glucose 117 70 - 199 mg/dL [facility] Comment: Interpretive Data Random glucose greater than or equal to 200 mg/dL with relevant clinical symptoms is diagnostic for diabetes when repeated on a subsequent day. Reference: Diabetes Care 2005;28:S37-S42. Current interpretive data was last revised on 2013. Creatinine 0.8 0.4 - 1.2 mg/dL [facility] Calcium 10.1 8.5 - 10.3 mg/dL [facility] Chloride 110 97 - 110 mmol/L [...] gap 11 2 - 15 mmol/L [facility] Blood specimen (specimen) 08/13/2016 10:46 AM CDT 08/13/2016 10:50 AM CDT Narrative [facility] - 08/13/2016 11:23 AM CDT Expiration Date: LAB Frequency Standing Order? No Client/Account Bill? No Client Account Number and Description: us Astrid Campbell MD LAB BLOOD ORDERABLES Final Result Performing Organization Address City/State/[facility] Co de Phone Number [facility] One [facility] Department [place] [address] documented in this encounter Visit Diagnoses Not on filedocumented in this encounter
--- OUTSIDE RECORDS SUMMARY | 2024-05-10 20:23 | XMS_ITS | Encounter Summary ---
Author Organization [facility] Address [address] [place] [address] Phone Care Team Providers Care Industrial Aerial Installer Name Role Phone Etelvina Del Cid MD Primary Care Provider + Encounter Details Date Type Department Care Team (Late st Contact Info) Description 04/22/2018 Telephone [facility] Cardiology [address] [facility] 8th [place] [address] [place] [address] Jef Walton MD [address] [facility] [address] [place], [place] [id number] Social History Tobacco Use Types Packs/Day Years Used Date Smoking Tobacco: Never Smokeless Tobacco: Never Alcohol Use Standard Drinks/Week Comments No 0 (1 standard drink = 0.6 oz pur e alcohol) Sex and Gender Information Value Date Recorded Sex Assigned at Not on file Legal Sex Male 5:01 AM MONOLOGIST Gender Identity Male 12/18/2017 12:38 PM CDT Sexual Orientation Not on file documented as of this encounter Miscellaneous Notes * Telephone Encounter - Shannen Turner - 04/22/2018 1:41 PM MONOLOGIST Aurelioay LOGIST * Telephone Encounter - Piedad Velez RN - 04/22/2018 12:28 PM MONOLOGIST I placed an order for Cardiac MR and spoke to centralized scheduling. Pt scheduled for 05/01 at 9am. No need to schedule or call pt!! Thanks. LOGIST documented in this encounter Plan of Treatment Not on file documented as of this encounter Visit Diagnoses Not on filedocumented in this encounter Care Teams Industrial Aerial Installer Relationship Specialty Start Date End Date Etelvina Del Cid MD [address] [place] [address] [place] [address] PCP - General 08/14/16 03/10/19 documented as of this encounter
--- OUTSIDE RECORDS SUMMARY | 2024-05-10 20:23 | XMS_ITS | Encounter Summary ---
Author Organization [facility] Healthcare Address [address] [place] [address] Care Team Providers Care In House Cra Name Role Phone Etelvina Del Cid MD Primary Care Provider + Encounter Details Date Type Department Care Team (Latest Contact Info) Description 07/10/2017 10:39 AM FORM WORKER - 07/10/2017 11:59 PM FORM WORKER Hospital Encounter [facility] OP INTERIM [phone] Jef Walton MD [address] [address] Discharge Disposition: Discharge to home or self care Social History Tobacco Use Types Packs/Day Years Used Date Smoking Tobacco: Never Sex and Gender Information Value Date Recorded Sex Assigned at Not on file Legal Sex Male 5:01 AM FORM WORKER Gender Identity Male 12/18/2017 12:38 PM [...] A1C Routine Gen Lab 07/10/2017 10:50 AM FORM WORKER LIPID PANEL Routine Gen Lab 07/10/2017 10:50 AM FORM WORKER COMPREHENSIVE METABOLIC PANEL Routine Gen Lab 07/10/2017 10:50 AM FORM WORKER DISCHARGE LABORATORY CUMULATIVE REPORT 07/10/2017 12:00 AM FORM WORKER documented in this encounter Results * (ABNORMAL) Lipid panel (07/10/2017 10:50 AM FORM WORKER) Cholesterol 157 30 - 200 mg/dL [facility] [...] Triglycerides 309(H) 0 - 150 mg/dL [facility] Comment: Interpretive Data Desirable: ? < 150 mg/dL Borderline High: ? 150 - 199 mg/dL High: ?200 - 499 mg/dL Very High: ? > or = 499 mg/dL Literature Reference: See Cholesterol Current interpretive data was last revised on 2015. HDL 26(L) >=40 mg/dL [facility] Comment: Interpretive Data Less than 40 mg/dL [...] revised on 2015. Non-HDL Cholesterol 131 mg/dL [facility] Comment: Interpretive Data When triglycerides are >200 mg/dL, non-HDL C is a secondary target of therapy, with a goal 30 mg/dL higher than the identified LDL-C goal. Reference: ??See Cholesterol Reference. Current interpretive data was last revised 2015. Blood specimen (specimen) 07/10/2017 10:50 AM FORM WORKER 07/10/2017 11:11 AM FORM WORKER Narrative [facility] - 07/10/2017 11:53 AM FORM WORKER us Jef Walton MD LAB BLOOD ORDERABLES Final Re sult [facility] One [facility] Department [place] [address] * (ABNORMAL) Comprehensive metabolic panel (07/10/2017 10:50 AM FORM WORKER) Sodium 142 135 - 145 mmol/L [facility] Potassium, pl 4.5 3.3 - 4.9 mmol/L [facility] Comment:Hemolyzed; (+++); po tassium value may be falsely elevated by as much as 0.6 - 1.0 mmol/L. Suggest redraw and reanalysis. CO2 28 22 - 32 mmol/L [facility] BUN 17 8 - 25 mg/dL [facility] Glucose 107 70 - 199 mg/dL [facility] Comment: Interpretive Data Fasting glucose >/= 126 [...] 2017. Creatinine 0.95 0.80 - 1.30 mg/dL [facility] Calcium 9.8 8.5 - 10.3 mg/dL [facility] Chloride 104 97 - 110 mmol/L [facility] Albumin 4.5 3.5 - 5.0 g/dL [facility] AST 59(H) 10 - 50 Units/L [facility] Comment:Hemolyzed; result ma y be falsely elevated. ALT 89(H) 7 - 55 Units/L [facility] Alk phos 88 70 - 260 Units/L [facility] Bilirubin, total 0.3 0.1 - 1.2 mg/dL [facility] Protein, pl 7.7 6.5 - 8.5 g/dL [facility] Anion gap 10 2 - 15 mmol/L [facility] Blood specimen (specimen) 07/10/2017 10:50 AM FORM WORKER 07/10/2017 11:11 AM FORM WORKER Narrative [facility] - 07/10/2017 11:53 AM FORM WORKER us Jef Walton MD LAB BLOOD ORDERABLES Final Re sult [facility] One [facility] Department [place] [address] * Hemoglobin A1c (07/10/2017 10:50 AM FORM WORKER) Hgb A1C 5.2 4.0 - 5.6 % [facility] Estimated Average Glucose 103 mg/dL [facility] Comment: The ADA recommends reporting an estimated Average Glucose (eAG) with all Hemoglobin A1c results using the equation derived from a study of 507 normal and diabetic adults. ??Minority populations were underrepresented and children were not included. ?? (Diabetes Care 31:4875-5908, 2008). ??The eAG is not equivalent to a fasting glucose. Blood specimen (specimen) 07/10/2017 10:50 AM FORM WORKER 07/10/2017 11:11 AM FORM WORKER Narrative [facility] - 07/10/2017 11:40 AM FORM WORKER us Jef Walton MD LAB BLOOD ORDERABLES Final Re sult [facility] Department [place] [address] * DISCHARGE LABORATORY CUMULATIVE REPORT (07/10/2017 12:00 AM FORM WORKER) Narrative 07/10/2017 12:00 AM FORM WORKER Ordered by an unspecified provider. us Historical Provider LAB BLOOD ORDERABLES Melina l Result documented in this encounter Visit Diagnoses Not on filedocumented in this encounter Care Teams In House Cra Relationship Specialty Start Date End Date Etelvina Del Cid MD [address] [place] [address] [place] [address] PCP - General 08/14/16 03/10/19 documented as of this encounter
--- OUTSIDE RECORDS SUMMARY | 2024-05-10 20:23 | XMS_ITS | Encounter Summary ---
Author Organization [facility] Address [address] [place] [address] Phone Care Team Providers Care Crankshaft Straightener Name Role Phone Etelvina Del Cid MD Primary Care Provider + Reason for Visit * Reason Onset Date Comments Med Management 07/23/2018 Encounter Details Date Type Department Care Team (Late st Contact Info) Description 07/23/2018 Telephone [facility] Cardiology [address] [facility] 8th [place] [address] [place] [address] Jef Walton MD [address] [facility] [address] [place], [place] [id number] Med Management Social History Tobacco Use Types Packs/Day Years Used Date Smoking Tobacco: Never Smokeless Tobacco: Never Alcohol Use Standard Drinks/Week Comments No 0 (1 standard drink = 0.6 oz pur e alcohol) Sex and Gender Information Value Date Recorded Sex Assigned at Not on file Legal Sex Male 5:01 AM INTERNATIONAL TRADE COMPLIANCE MANAGER Gender Identity Male 12/18/2017 12:38 PM CDT Sexual Orientation Not on file documented as of this encounter Miscellaneous Notes * Telephone Encounter - Piedad Velez RN - 07/23/2018 12:16 PM CDT Correct pharmacy is [facility] [phone]. Informed pharmacist Dr. Walton increased indapamide to 2.5mg qd. She has no further questions. * Telephone Encounter - Tye Burroughs - 07/23/2018 12:08 PM CDT KIRIT REQ CALL BACK REGARDING DOSAGE OF INDAPAMIDE, PLS CALL documented in this encounter Plan of Treatment Not on file documented as of this encounter Visit Diagnoses Not on filedocumented in this encounter Care Teams Crankshaft Straightener Relationship Specialty Start Date End Date Etelvina Del Cid MD [address] [address] PCP - General 08/14/16 03/10/19 documented as of this encounter
--- OUTSIDE RECORDS SUMMARY | 2024-05-10 20:23 | XMS_ITS | Encounter Summary ---
Author Organization [facility] Healthcare Address [address] [place] [address] Care Team Providers Care Group Account Director Name Role Phone Jann Burrows MD Primary Care Provider [phone] Encounter Details Date Type Department Care Team (Late st Contact Info) Description 03/13/2019 12:25 PM BILINGUAL SPEECH THERAPIST Lab [facility] [address] [place] [address] [place] [address] Metabolic syndrome Social History Tobacco Use Types Packs/Day Years Used Date Smoking Tobacco: Never Smokeless Tobacco: Never Alcohol Use Standard Drinks/Week Comments Yes 24 (1 standard drink = 0.6 oz pu re alcohol) CAGE negative. Case per week. 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 Not on file Not on file documented as of this encounter Plan of Treatment Not on file documented as of this encounter Procedures Procedure Name Priority Date/Time Associated Diagnosis Comments BASIC METABOLIC PANEL Routine 03/13/2019 12:30 PM BILINGUAL SPEECH THERAPIST Metabolic syndrome documented in this encounter Results * Basic metabolic panel (03/13/2019 12:30 PM BILINGUAL SPEECH THERAPIST) Sodium 142 135 - 145 mmol/L [facility] Potassium, pl 4.3 3.3 - 4.9 mmol/L [facility] Comment:Hemolyzed; (++); pot assium value may be falsely elevated by as much as 0.3 - 0.5 mmol/L. Suggest redraw and reanalysis. Chloride 107 97 - 110 mmol/L [facility] CO2 25 22 - 32 mmol/L [facility] Anion gap 10 2 - 15 mmol/L [facility] BUN 14 8 - 25 mg/dL [facility] Creatinine 0.87 0.80 - 1.30 mg/dL [facility] Glucose 90 70 - 199 mg/dL [facility] Comment: Interpretive Data Fasting glucose [...] 2017. Calcium 9.4 8.5 - 10.3 mg/dL [facility] Blood specimen (specimen) 03/13/2019 12:30 PM BILINGUAL SPEECH THERAPIST 03/13/2019 1:46 PM BILINGUAL SPEECH THERAPIST us Nikita Buchanan MD LAB BLOOD ORDERABLES Final Resul t [facility] One [facility] Department [place] [address] documented in this encounter Visit Diagnoses Diagnosis Metabolic syndrome Dysmetabolic Syndrome X documented in this encounter Care Teams Group Account Director Relationship Specialty Start Date End Date Jann Burrows MD [address] [facility] [address] [place] [address] PCP - General Hematology 03/13/19 10/28/21 documented as of this encounter
--- OUTSIDE RECORDS SUMMARY | 2024-05-10 20:23 | XMS_ITS | Encounter Summary ---
Author Organization [facility] Care Team Providers Care Word Processor Operator Name Role Phone Unavailable Primary Care Provider Unavailabl e Encounter Details Date Type Department Care Team (Latest Contact Info) Description 07/27/2009 9:39 AM CDT - 07/27/2009 11:59 PM CDT Hospital Encounter [facility] Radiological examination Social History Tobacco Use Types Packs/Day Years Used Date Smoking Tobacco: Never Assessed Sex and Gender Information Value Date Recorded Sex Assigned at Not on file Legal Sex Male 5:01 AM PIPED BUTTONHOLE MACHINE OPERATOR Gender Identity Male 12/18/2017 12:38 PM CDT Sexual Orientation Not on file documented as of this encounter Plan of Treatment Not on file documented as of this encounter Visit Diagnoses Diagnosis Radiological examination documented in this encounter
--- OUTSIDE RECORDS SUMMARY | 2024-05-10 20:23 | XMS_ITS | Encounter Summary ---
Author Organization [facility] Address [address] [place] [address] Phone Care Team Providers Care Power Plant Mechanic Name Role Phone Jann Burrows MD Primary Care Provider [phone] Encounter Details Date Type Department Care Team (Late st Contact Info) Description 03/23/2019 Telephone [facility] Endocrinology Metabolism and Lipid [address] [facility] 5th [place] [address] [place] [address] Che Duff LPN Social History Tobacco Use Types Packs/Day Years Used Date Smoking Tobacco: Never Smokeless Tobacco: Never Alcohol Use Standard Drinks/Week Comments Yes 24 (1 standard drink = 0.6 oz pu re alcohol) CAGE negative. Case per week. 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 Pens are preferred. RUCTIONAL SYSTEMS DESIGN CONSULTANT * Telephone Encounter - Che Duff LPN - 03/23/2019 3:34 PM CST Ok to send pens instead of vials of the u500? RUCTIONAL SYSTEMS DESIGN CONSULTANT documented in this encounter Plan of Treatment Not on file documented as of this encounter Visit Diagnoses Not on filedocumented in this encounter Care Teams Power Plant Mechanic Relationship Specialty Start Date End Date Jann Burrows MD [address] [facility] [address] [place] [address] PCP - General Hematology 03/13/19 10/28/21 documented as of this encounter
--- OUTSIDE RECORDS SUMMARY | 2024-05-10 20:23 | XMS_ITS | Encounter Summary ---
Author Organization [facility] Address [address] [place] [address] Phone Care Team Providers Care Ui Ux Web Developer Name Role Phone Etelvina Del Cid MD Primary Care Provider + Encounter Details Date Type Department Care Team (Late st Contact Info) Description 04/16/2018 Telephone [facility] Cardiology [address] [facility] Advanced Medicine 8th [place] [address] [place] [address] Jef Walton MD [address] [facility] [address] [place], [place] [id number] Social History Tobacco Use Types Packs/Day Years Used Date Smoking Tobacco: Never Smokeless Tobacco: Never Alcohol Use Standard Drinks/Week Comments No 0 (1 standard drink = 0.6 oz pur e alcohol) Sex and Gender Information Value Date Recorded Sex Assigned at Not on file Legal Sex Male 5:01 AM CONFERENCE INTERPRETER Gender Identity Male 12/18/2017 12:38 PM CDT Sexual Orientation Not on file documented as of this encounter Miscellaneous Notes * Telephone Encounter - Piedad Velez RN - 04/16/2018 2:51 PM CONFERENCE INTERPRETER A user error has taken place: encounter opened in error, closed for administrative reasons. ERENCE INTERPRETER documented in this encounter Plan of Treatment Not on file documented as of this encounter Visit Diagnoses Not on filedocumented in this encounter Care Teams Ui Ux Web Developer Relationship Specialty Start Date End Date Etelvina Del Cid MD [address] [place] [address] [place] [address] PCP - General 08/14/16 03/10/19 documented as of this encounter
--- OUTSIDE RECORDS SUMMARY | 2024-05-10 20:23 | XMS_ITS | Encounter Summary ---
Author Organization [facility] Address [address] [place] [address] Phone Care Team Providers Care Ceramic Artist Name Role Phone Etelvina Del Cid MD Primary Care Provider + Encounter Details Date Type Department Care Team (Late st Contact Info) Description 02/23/2019 Telephone [facility] Cardiology [address] [facility] Advanced Medicine 8th [place] [address] [place] [address] Jef Walton MD [address] [facility] [address] [place], [place] [id number] Social History Tobacco Use Types Packs/Day Years Used Date Smoking Tobacco: Never Smokeless Tobacco: Never Alcohol Use Standard Drinks/Week Comments No 0 (1 standard drink = 0.6 oz pur e alcohol) Sex and Gender Information Value Date Recorded Sex Assigned at Not on file Legal Sex Male 5:01 AM CHIEF CATALYST OPERATOR Gender Identity Male 12/18/2017 12:38 PM [...] on filedocumented in this encounter Care Teams Ceramic Artist Relationship Specialty Start Date End Date Etelvina Del Cid MD [address] [place] [address] PCP - General 08/14/16 03/10/19 documented as of this encounter
--- OUTSIDE RECORDS SUMMARY | 2024-05-10 20:23 | XMS_ITS | Encounter Summary ---
Author Organization [facility] Facility Care Team Providers Care Retail Personal Banker Name Role Phone Unavailable Primary Care Provider Unavailabl e Encounter Details Date Type Department Care Team (Late st Contact Info) Description 03/03/2010 4:54 PM CDT - 03/03/2010 11:59 PM CDT Hospital Encounter [facility] Haris Ingram MD [address] [place] [address] [place] [id number] Elevated blood-pressure reading without diagnosis of hypertension; Dysmetabolic syndrome X Social History Tobacco Use Types Packs/Day Years Used Date Smoking Tobacco: Never Assessed Sex and Gender Information Value Date Recorded Sex Assigned at Not on file Legal Sex Male 5:01 AM PIPE CLEANER Gender Identity Male 12/18/2017 12:38 PM [...]
--- OUTSIDE RECORDS SUMMARY | 2024-05-10 20:23 | XMS_ITS | Encounter Summary ---
Author Organization [facility] Facility Care Team Providers Care White Goods Appliance Tech Name Role Phone Etelvina Del Cid MD [...] on file Legal Sex Male 5:01 AM AVIONICS ELECTRONICS TECHNICIAN Gender Identity Male 12/18/2017 12:38 PM CDT Sexual Orientation Not on file documented as of this encounter Plan of Treatment Not on file documented as of this encounter Visit Diagnoses Not on filedocumented in this encounter Care Teams White Goods Appliance Tech Relationship Specialty Start Date End Date Etelvina Del Cid MD [address] [facility] [address] [place] [address] PCP - General 08/14/16 03/10/19 documented as of this encounter
--- OUTSIDE RECORDS SUMMARY | 2024-05-10 20:23 | XMS_ITS | Encounter Summary ---
Author Organization [facility] Address [address] [place] [address] Phone Care Team Providers Care Process Control Specialist Name Role Phone Etelvina Del Cid MD Primary Care Provider + Encounter Details Date Type Department Care Team (Late st Contact Info) Description 07/31/2018 Telephone [facility] Sleep [address] [place] [address] 6th [address] [place] [address] Mey Starks Social History Tobacco Use Types Packs/Day Years Used Date Smoking Tobacco: Never Smokeless Tobacco: Never Alcohol Use Standard Drinks/Week Comments No 0 (1 standard drink = 0.6 oz pur e alcohol) Sex and Gender Information Value Date Recorded Sex Assigned at Not on file Legal Sex Male 5:01 AM COMPUTER SYSTEMS INTEGRATOR Gender Identity Male 12/18/2017 12:38 PM CDT [...] on filedocumented in this encounter Care Teams Process Control Specialist Relationship Specialty Start Date End Date Etelvina Del Cid MD [address] [address] [place] [address] PCP - General 08/14/16 03/10/19 documented as of this encounter
--- OUTSIDE RECORDS SUMMARY | 2024-05-10 20:23 | XMS_ITS | Encounter Summary ---
Author Organization [facility] Address [address] [place] [address] Phone Care Team Providers Care Fur Repair Inspector Name Role Phone Etelvina Del Cid MD Primary Care Provider + Encounter Details Date Type Department Care Team (Late st Contact Info) Description 04/22/2018 Telephone [facility] Cardiology [address] [facility] Advanced Medicine 8th [place] [address] [place] [address] Jef Walton MD [address] [facility] [address] [place], [place] [id number] Social History Tobacco Use Types Packs/Day Years Used Date Smoking Tobacco: Never Smokeless Tobacco: Never Alcohol Use Standard Drinks/Week Comments No 0 (1 standard drink = 0.6 oz pur e alcohol) Sex and Gender Information Value Date Recorded Sex Assigned at Not on file Legal Sex Male 5:01 AM SUPERVISOR RESEARCH KENNEL Gender Identity Male 12/18/2017 12:38 PM CDT Sexual Orientation Not on file documented as of this encounter Miscellaneous Notes * Telephone Encounter - Piedad Velez RN - 04/22/2018 12:24 PM SUPERVISOR RESEARCH KENNEL Pt called and states he can do MR on 05/01 at 9am. Spoke to Nataliia in scheduling and informed her of MR scheduled for 05/01 at 9am, scanner 5. Order placed in EPIC. She states pt needs to be at MRI by 8:15am. Pt informed and verbalizes understanding. RVISOR RESEARCH KENNEL * Telephone Encounter - Piedad Velez RN - 04/22/2018 10:48 AM SUPERVISOR RESEARCH KENNEL Per Dr. Walton - schedule pt for CMR. Spoke to Justin, supervisor kennel in MRI, and he states CMR can be done on 05/01 at 9am, [facility], 3rd floor, scanner 5. He asks that once I confirm date/time with patient, to call scheduling at [phone] and let them know date/time and test to be done in scanner 5. LMOR for pt to CB. RVISOR RESEARCH KENNEL documented in this encounter Plan of Treatment Not on file documented as of this encounter Visit Diagnoses Not on filedocumented in this encounter Care Teams Fur Repair Inspector Relationship Specialty Start Date End Date Etelvina Del Cid MD [address] [place] [address] [place] [address] PCP - General 08/14/16 03/10/19 documented as of this encounter
--- OUTSIDE RECORDS SUMMARY | 2024-05-10 20:23 | XMS_ITS | Encounter Summary ---
Author Organization [facility] Facility Care Team Providers Care Dry Kiln Burner Name Role Phone Unavailable Primary Care Provider Unavailabl e Encounter Details Date Type Department Care Team (Latest Contact Info) Description 03/28/2010 2:48 PM SALES DEVELOPMENT CONSULTANT - 03/28/2010 11:59 PM SALES DEVELOPMENT CONSULTANT Hospital Encounter [facility] Dietary counseling and surveillance; Obesity; Body mass index, pediatric, greater than or equal to 95th percentile for age Social History Tobacco Use Types Packs/Day Years Used Date Smoking Tobacco: Never Assessed Sex and Gender Information Value Date Recorded Sex Assigned at Not on file Legal Sex Male 5:01 AM SALES DEVELOPMENT CONSULTANT Gender Identity Male 12/18/2017 12:38 PM [...]
--- OUTSIDE RECORDS SUMMARY | 2024-05-10 20:23 | XMS_ITS | Encounter Summary ---
Author Organization [facility] Facility Care Team Providers Care Patrol Agent Name Role Phone Unavailable Primary Care Provider Unavailabl e Encounter Details Date Type Department Care Team (Late st Contact Info) Description 05/02/2010 9:17 AM DIRECTOR E LEARNING - 05/02/2010 11:59 PM DIRECTOR E LEARNING Hospital Encounter [facility] Etelvina Del Cid MD [address] [place] [id number] Obesity; Dietary counseling and surveillance; Body mass index, pediatric, greater than or equal to 95th percentile for age Social History Tobacco Use Types Packs/Day Years Used Date Smoking Tobacco: Never Assessed Sex and Gender Information Value Date Recorded Sex Assigned at Not on file Legal Sex Male 5:01 AM DIRECTOR E LEARNING Gender Identity Male 12/18/2017 12:38 PM CDT [...]
--- OUTSIDE RECORDS SUMMARY | 2024-05-10 20:23 | XMS_ITS | Encounter Summary ---
Author Organization [facility] Address [address] [place] [address] Phone Care Team Providers Care Credit Specialist Name Role Phone Etelvina Del Cid MD Primary Care Provider + No, Physician Primary Care Provider [phone] Jann Burrows MD Primary Care Provider [phone] Encounter Details Date Type Department Care Team (Late st Contact Info) Description 03/04/2019 Telephone [facility] Cardiology [address] [facility] Advanced Medicine 8th [place] [address] [place] [address] Jef Walton MD [address] [facility] [address] [place], [place] [id number] Social History Tobacco Use Types Packs/Day Years Used Date Smoking Tobacco: Never Smokeless Tobacco: Never Alcohol Use Standard Drinks/Week Comments Yes 24 (1 standard drink = 0.6 oz pu re alcohol) CAGE negative. Case per week. Sex and Gender Information Value Date Recorded Sex Assigned at Not on file Legal Sex Male 5:01 AM LABORER Gender Identity Male 12/18/2017 12:38 PM [...] on filedocumented in this encounter Care Teams Credit Specialist Relationship Specialty Start Date End Date Etelvina Del Cid MD [address] [address] PCP - General 08/14/16 03/10/19 No, Physician PCP - General 03/11/19 03/12/19 Jann Burrows MD [address] [facility] [address] [place] [address] PCP - General Hematology 03/13/19 10/28/21 documented as of this encounter
--- OUTSIDE RECORDS SUMMARY | 2024-05-10 20:23 | XMS_ITS | Encounter Summary ---
Author Organization [facility] Facility Care Team Providers Care Sales Activity Manager Name Role Phone Unavailable Primary Care Provider Unavailabl e Encounter Details Date Type Department Care Team (Late st Contact Info) Description 02/27/2016 11:46 AM CDT - 02/27/2016 11:59 PM CDT Hospital Encounter [facility] Astrid Mcclain MD 1 [facility] [address] [place] [address] Other hypertrophic cardiomyopathy (CMS/HCC) Social History Tobacco Use Types Packs/Day Years Used Date Smoking Tobacco: Never Assessed Sex and Gender Information Value Date Recorded Sex Assigned at Not on file Legal Sex Male 5:01 AM MILITARY SOURCE OPERATIONS SPECIALIST Gender Identity Male 12/18/2017 12:38 PM [...]
--- OUTSIDE RECORDS SUMMARY | 2024-05-10 20:23 | XMS_ITS | Encounter Summary ---
Author Organization [facility] Address [address] [place] [address] Care Team Providers Care Wool Broker Name Role Phone Etelvina Del Cid MD Primary Care Provider + Reason for Referral * MRI/CAT/PET Scan (Routine) - Closed Specialty Diagnoses / Procedures Referred By Marlaac t Referred To Contact Radiology Diagnoses Asymmetric septal hypertrophy Procedures Radiology Event Jef Walton MD Phone: tel: fax: [address] [address] Referral ID Status Reason Start Date Expiration Date Visits Re quested Visits Authorized [id number] Closed 05/02/2018 11/11/2019 1 1 NCE TRUER Reason for Visit * Diagnostic Imaging (Routine) - Closed Specialty Diagnoses / Procedures Referred By Contac t Referred To Contact Radiology Diagnoses Asymmetric septal hypertrophy Procedures MRI Cardiac M&F WO Contrast MRI Cardiac M&F W WO Contrast Jef Walton MD Phone: tel: fax: [address] [address] Referral ID Status Reason Start Date Expiration Date Visits Re quested Visits Authorized [id number] Closed 04/22/2018 11/01/2019 1 1 Encounter Details Date Type Department Care Team (Latest Contact Info) Description 05/01/2018 8:03 AM BALANCE TRUER - 05/01/2018 11:59 PM BALANCE TRUER Hospital Encounter [facility] [address] [place] [address] Jef Walton MD [address] [facility] [address] [place] [address] Asymmetric septal hypertrophy (CMS/HCC) Discharge Disposition: Discharge to home or self care Social History Tobacco Use Types Packs/Day Years Used Date Smoking Tobacco: Never Smokeless Tobacco: Never Alcohol Use Standard Drinks/Week Comments No 0 (1 standard drink = 0.6 oz pur e alcohol) Sex and Gender Information Value Date Recorded Sex Assigned at Not on file Legal Sex Male 5:01 AM BALANCE TRUER Gender Identity Male 12/18/2017 12:38 PM CDT [...] Read Routine (OP Routine) 05/01/2018 10:16 AM BALANCE TRUER Asymmetric septal hypertrophy (CMS/HCC) MRI CARDIAC M&F WO CONTRAST Schedule Routine, Read Routine (OP Routine) 05/01/2018 10:16 AM BALANCE TRUER Asymmetric septal hypertrophy (CMS/HCC) POCT CREATININE FOR CONTRAST EVALUATION Routine Gen Lab 05/01/2018 9:07 AM BALANCE TRUER documented in this encounter Results * Radiology Event (05/01/2018 10:16 AM BALANCE TRUER) Anatomical Region Laterality Modality Magnetic Resonan ce 05/02/2018 2:16 PM BALANCE TRUER Impressions 05/02/2018 2:16 PM BALANCE TRUER IV infiltration. Ice pack placed on site. Patient given instructions to report to ED or call radiology if pain increased, redness developed, or numbness or tingling developed. Electronically signed by: Radames Balderas M.D. Narrative 05/02/2018 2:16 PM BALANCE TRUER EXAMINATION: General Radiology Event Report DATE of [...] Cardiac M&F WO Contrast (05/01/2018 10:16 AM BALANCE TRUER) Anatomical Region Laterality Modality Body N/A Magnetic Resonan ce 05/01/2018 11:2 4 AM BALANCE TRUER Impressions 05/03/2018 11:46 AM BALANCE TRUER Stable focal thickening of the proximal/mid interventricular septum without systolic anterior motion. ??Again, this likely represents a sigmoid septum which can be seen in the setting of hypertension. Dictated by: Giuliano Olmedo M.D. Electronically signed by: Marcos Jorgensen M.D. Narrative 05/03/2018 11:46 AM BALANCE TRUER EXAM: ?? Cardiac MRI Morphology and Function [...] creatinine for contrast evaluation (05/01/2018 9:07 AM BALANCE TRUER) Creatinine POC 0.9 0.7 - 1.3 mg/dL [facility] Blood specimen (specimen) 05/01/2018 9:07 AM BALANCE TRUER 05/01/2018 9:07 AM BALANCE TRUER Narrative [facility] - 05/01/2018 9:28 AM BALANCE TRUER us Jef Walton MD POINT OF CARE TEST ORDERABLES Final Result [facility] [place] [address] documented in this encounter Visit Diagnoses Diagnosis Asymmetric septal hypertrophy documented in this encounter Care Teams Wool Broker Relationship Specialty Start Date End Date Etelvina Del Cid MD [address] [address] PCP - General 08/14/16 03/10/19 documented as of this encounter
--- OUTSIDE RECORDS SUMMARY | 2024-05-10 20:23 | XMS_ITS | Encounter Summary ---
Author Organization [facility] Address [address] [place] [address] Phone Care Team Providers Care Lacrosse Player Name Role Phone Etelvina Del Cid MD Primary Care Provider + No, Physician Primary Care Provider [phone] Jann Burrows MD Primary Care Provider [phone] Encounter Details Date Type Department Care Team (Late st Contact Info) Description 03/02/2019 Telephone [facility] Cardiology [address] [facility] Advanced Medicine 8th [place] [address] [place] [address] Jef Walton MD [address] [facility] [address] [place], [place] [phone] Social History Tobacco Use Types Packs/Day Years Used Date Smoking Tobacco: Never Smokeless Tobacco: Never Alcohol Use Standard Drinks/Week Comments No 0 (1 standard drink = 0.6 oz pur e alcohol) Sex and Gender Information Value Date Recorded Sex Assigned at Not on file Legal Sex Male 5:01 AM CUSTOMER ENERGY SPECIALIST Gender Identity Male 12/18/2017 12:38 PM CDT Sexual Orientation Not on file documented as of this encounter Miscellaneous Notes * Telephone Encounter - Kasia Nolasco RN - 03/03/2019 1:11 PM CDT 03/03- [...] on filedocumented in this encounter Care Teams Lacrosse Player Relationship Specialty Start Date End Date Etelvina Del Cid MD [address] [place] [address] [address] PCP - General 08/14/16 03/10/19 No, Physician PCP - General 03/11/19 03/12/19 Jann Burrows MD [address] [place] [address] PCP - General Hematology 03/13/19 10/28/21 documented as of this encounter
--- OUTSIDE RECORDS SUMMARY | 2024-05-10 20:23 | XMS_ITS | Encounter Summary ---
Author Organization [facility] Facility Care Team Providers Care Billing Customer Service Representative Name Role Phone Unavailable Primary Care Provider Unavailabl e Encounter Details Date Type Department Care Team (Latest Contact Info) Description 07/27/2009 10:08 AM CDT - 07/27/2009 11:59 PM CDT Hospital Encounter [facility] Morbid obesity (HCC); Acquired acanthosis nigricans; Lack of expected normal physiological development Social History Tobacco Use Types Packs/Day Years Used Date Smoking Tobacco: Never Assessed Sex and Gender Information Value Date Recorded Sex Assigned at Not on file Legal Sex Male 5:01 AM FISHING TOOL SUPERVISOR Gender Identity Male 12/18/2017 12:38 PM CDT Sexual Orientation Not on file documented as of this encounter Plan of Treatment Not on file documented as of this encounter Visit Diagnoses Diagnosis Morbid obesity (HCC) Morbid obesity Acquired acanthosis nigricans Lack of expected normal physiological development Lack of normal physiological development, unspecified documented in this encounter
--- OUTSIDE RECORDS SUMMARY | 2024-05-10 20:23 | XMS_ITS | Encounter Summary ---
Author Organization [facility] Facility Care Team Providers Care Splunk Architect Name Role Phone Unavailable Primary Care Provider [...] on file Legal Sex Male 5:01 AM DRAINAGE ENGINEER Gender Identity Male 12/18/2017 12:38 PM CDT Sexual Orientation Not on file documented as of this encounter Plan of Treatment Not on file documented as of this encounter Visit Diagnoses Diagnosis Headache Chest pain Unspecified chest pain Headache(784.0) Headache documented in this encounter
--- OUTSIDE RECORDS SUMMARY | 2024-05-10 20:23 | XMS_ITS | Encounter Summary ---
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 Name Role Phone Etelvina Del Cid MD Primary Care Provider + Reason for Referral * Consultation (Routine) - Closed Specialty Diagnoses / Procedures Referred By Contac t Referred To Contact Endocrinology Diagnoses Diabetic ketoacidosis without coma associated with other specified diabetes mellitus (HCC) Peter Styles Jr., MD Phone: tel: fax: [facility] (All Locations) Referral ID Status Reason Start Date Expiration Date V isits Requested Visits Authorized [id number] Closed Specialty Services Required 03/08/2019 05/05/2019 4 4 Question Answer Please select the performing region: [facility] (All Locations) [167] # of visits: 1 Comments Admitted with DKA. No previous diagnosis of DM. STANT CURATOR Reason for Visit * Reason Comments Chest Pain Shortness of Breath Encounter Details Date Type Department Care Team (Latest Contact Info) Description 03/02/2019 6:00 PM CDT - 03/08/2019 10:32 AM ASSISTANT CURATOR Hospital Encounter [facility] [address] [place] [address] Kenroy Farr MD [address] [place] [address] Peter Styles Jr., MD [address] [place] [address] Mari Rick MD [address] [place] [address] Nita Palacios MD [address] [place] [address] Diabetic ketoacidosis without coma associated with type [...] on file Legal Sex Male 5:01 AM ASSISTANT CURATOR Gender Identity Male 12/18/2017 12:38 PM CDT Sexual Orientation Not on file documented as of this encounter Last Filed Vital Signs Vital Sign Reading Time Taken Comments Blood Pressure 122/72 03/08/2019 8:46 AM ASSISTANT CURATOR Pulse 73 03/08/2019 3:35 AM ASSISTANT CURATOR Temperature 36.5 ??C (97.7 ??F) 03/08/2019 3:35 AM CS T Respiratory Rate 18 03/08/2019 3:35 AM ASSISTANT CURATOR Oxygen Saturation 96% 03/08/2019 3:35 AM ASSISTANT CURATOR Inhaled Oxygen Concentration - - Weight 207.2 [...] Physician at Discharge: Etelvina Del Cid MD [phone] Admission Date: 03/02/2019 Discharge Date: 03/08/2019 Admission Location: [facility] Primary Discharge Diagnosis: Diabetic acidosis and new [...] ketones 3.4, AG 22). Ad[facility] 03/03/19. At arrival to ED, chest pain was 8/10. ?? Of note patient does not have a formal diagnosis of diabetes mellitus, but per previous cardiology note (07/2018) previously diagnosed with metabolic syndrome and on metformin. ?? At time of admission to [facility], patient states his chest pain and [...] normal sinus rhythm with undetermined age inferior DC, pro-BNP negative, and chest pain spontaneously resolved. Diabetic ketoacidosis was treated with IV insulin, IV fluids, and PRN electrolyte repletion. Patient was given lantus 40mg at 0430 03/03/19 and ins ulin gtt was stopped at 0630 03/03/19. At time of admission to [facility], AG 12, serum ketones .8, and BG 193. Additional notable labs include: hemolyzed HFTs, UA with3+ glucose/protein/ketones, without leukocyte esterase/nitrites/WBCs/RBCs, CXR without PNA, and a negative influenza/RSV. At time of admission to [facility], patient is hemodynamically stable with BP [...] no formal diagnosis ofDiabetes Mellitus. In the [facility] ED, patient was treated with IVF, [...] as an outpatient. Patient was seen by family educator andnutrition to educate the patient about carbohydrate [...] Order Current Status POCT glucose Collected (03/05/19 2810) Glutamic acid decarboxylase In process Insulin antibody [...] am at the [facility] ([facility] Discharge Medications: [...] (three) times a day with meals lancets [facility] Patient needs in room for diabetes education lisinopril 5 mg tablet Commonly known as: PRINIVIL,ZESTRIL Take 1 tablet (5 mg total) by mouth daily metFORMIN 500 mg tablet Commonly known as: GLUCOPHAGE Take 1 tablet (500 mg total) by mouth 2 (two) times a day with meals Outpatient Follow-Up: Future Appointments Date Time Provider Department Center 03/13/2019 11:15 AM [facility] Alfonso, AMB RES Res [facility] 03/18/2019 3:30 PM Jef Walton MD [facility] Cardiology Cosigned by Peter Styles MD at 03/09/2019 6:43 AM ASSISTANT CURATOR STANT CURATOR STANT CURATOR documented in this encounter Discharge Instructions * Discharge Instructions* Jann Burrows MD - 03/08/2019 8:04 AM ASSISTANT CURATOR Mr. Velez, you were admitted to the hospital for diabetic ketoacidosis and new diagnosis of Diabetes Mellitus. Following discharge, we want you to be seen by a primary care doctor and an Sales Technician. You have an appointment with a primary care doctor in the [facility] on 03/13/19 (phone number # [phone]). In regards to the Endocrinology appointment, we [...] educated to do so by nutrition and family educator. You will be discharged with a glucometer,and [...] discharge. Either your primary care doctor or dial polisher can discuss these results with you. STANT CURATOR * Discharge Instr - Other Orders* Megan Cabrera RN - 03/06/2019 3:30 PM CDT A hospital follow-up appointment has been scheduled for you on 03/13/2019 at 11:15 am at the [facility] Care Medicine Clinic ([facility]). documented in [...] with meals 14.4 mL 03/08/2019 9 andre [facility] Patient needs in room for [...] Age: 23 y.o. male Admit: 03/02/2019 Unit: [id number] Contact: Extended Emergency Contact Information Primary Emergency Contact: Leatha Velez [facility] Relation: Mother Service: Medical Primary care physician: [...] - Daily BMPs. Replete as needed. - visual educator consult placed. - HbA1c 5.8 in [...] Peter Styles MD at 03/09/2019 6:41 AM ASSISTANT CURATOR STANT CURATOR STANT CURATOR Associated attestation - Peter Styles Jr., MD - 03/09/2019 6:41 AM ASSISTANT CURATOR I have seen and examined the patient on 03/08/2019. I agree with the findings and plan of care as documented in the resident's/fellow's note. * Jann Burrows MD - 03/07/2019 9:57 AM CDT General Note Name: Geraldo Velez Today: March 07, 2019 : 1995 Age: 23 y.o. male Admit: 03/02/2019 Unit: [id number] Contact: Extended Emergency Contact Information Primary Emergency Contact: Leatha Velez [facility] Relation: Mother Service: Medical Primary care physician: [...] - Daily BMPs. Replete as needed. - visual educator consult placed. - HbA1c 5.8 in [...] Age: 23 y.o. male Admit: 03/02/2019 Unit: [id number] Contact: Extended Emergency Contact Information Primary Emergency Contact: Leatha Velez [facility] Relation: Mother Service: Medical Primary care physician: [...] - Daily BMPs. Replete as needed. - visual educator consult placed. - HbA1c 5.8 in [...] Age: 23 y.o. male Admit: 03/02/2019 Unit: [id number] Contact: Extended Emergency Contact Information Primary Emergency Contact: Leatha Velez [facility] Relation: Mother Service: Medical Primary care physician: [...] OR dextrose ??? glucagon ??? influenza quadrivalent [id number] ??? ondansetron ODT OR ondansetron ??? ramelteon [...] - Daily BMPs. Replete as needed. - visual educator consult placed. - HbA1c 5.8 in [...] OR dextrose ??? glucagon ??? influenza quadrivalent [id number] ??? ondansetron ODT OR ondansetron ??? ramelteon [...] - Daily BMPs. Replete as needed. - visual educator consult placed. - HbA1c 5.8 in [...] RN - 03/04/2019 8:53 AM CDT 03/04/19 4151 Information Information Obtained From Patient Prior to Admission Primary Caregiver Self Support System Parent Support system contact info (name, phone, availablity) Leatha Velez (patient's mother) [phone] Home Care Services No Durable Medical Equipment None Living Arrangements Parent Type of Residence Private residence (Patient lives in a house with his parents.) Steps in home? 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 Patient admitted for treatment of: chest pain/SOB Information obtained from: patient Insurance verified as: [facility] [employer] (Patient is under his father's plan.) Prescription Coverage: yes PCP verified as: none; Patient wants to follow-up at the [facility]. CM will schedule. Transportation: per mother Admission Source: non-healthcare facility Additional Information/Options Discussed: Verified demographic information from the face sheet withthe patient. Explained role and purpose of bilingual patient support caseworker. Denies the use of home health in the past - a list will be provided if recommended. Patient demonstrates no agency preference at this time. recruiter manager to continue to follow for planning [...] ketones 3.4, AG 22). Admitted to [facility] 03/03/19. At arrival to ED, chest pain was 8/10. Of note patient does not have a formal diagnosis of diabetes mellitus, but per previous cardiology note (07/2018) previously diagnosed with metabolic syndrome and on metformin. At time of admission to [facility], patient states his chest pain and [...] normal sinus rhythm with undetermined age inferior DC, pro-BNP negative, and chest pain spontaneously resolved. Diabetic ketoacidosis was treated with IV insulin, IV fluids, and PRN electrolyte repletion. Patient was given lantus 40mg at 0430 03/03/19 and ins ulin gtt was stopped at 0630 03/03/19. At time of admission to [facility], AG 12, serum ketones .8, and BG 193. Additional notable labs include: hemolyzed HFTs, UA with3+ glucose/protein/ketones, without leukocyte esterase/nitrites/WBCs/RBCs, CXR without PNA, and a negative influenza/RSV. At time of admission to [facility], patient is hemodynamically stable with BP 141/79 (following Coreg 25mg). ROS: Positive: vision changes Negative: fevers/chills, abdominal pain, polydipsia, polyria, hematuria, dysuria, weight changes (gain/loss), changes in bowel habits, chest pain, dyspnea Past Medical History: Diagnosis Date ??? HTN (hypertension) ??? Metabolic syndrome ??? Morbid obesity with BMI of 50.0-59.9, adult ([facility]) 07/10/2017 History reviewed. No pertinent surgical history. [...] - Daily BMPs. Replete as needed. - visual educator consult placed. - HbA1c 5.8 in [...] Morbid obesity with BMI of 50.0-59.9, adult ([facility]) 07/10/2017 History reviewed. No pertinent surgical history. [...] Carbohydrate Diet effective now Question Answer Comment ([facility]) Diet type Restricted Fat / Sodium [...] Weight changes Jenifer Kunz MS, RD, LD [phone] documented in this encounter Nursing Notes * Hazel Storm, RN - 03/05/2019 3:58 PM CDT 03/05/19 1545 Pre-Education Assessment Time In 1430 Time Out 1546 Units of Service 5 Visit Type Initial Introduction ID verified;Alert/ oriented x 4;Education provided with patient approval (Pt's mother included in education with permission of the pt. ) Provider Medical/Iron Handler/PCP (MD states pt. 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 States he drinks diet soda & is not a sweet eater but admits to overeating on carbs & drinking 24oz of milk at a time. ) Exercise Habits Active Hypoglycemia New onset, unknown at this time Home Supplies (Pt states he has [employer] insurance. ) Inpatient Recommendations RN to practice with patient Injections RN to reinforce with patient Consistent carb diet;Carb counting Consults Made (Floor RN to make dietitian consult) Discharge Recommendations Insulin Pen Humalog Kwik Pen (pkg of 5);Lantus Solostar Pre-filled Pen (pkg of 5) (Pt. used insulin teaching pen to inject into pillow with good technique. ) Pen [place] Ultra fine 4 mm Glucometer OneTouch Verio [...] he will be following up in the [facility] clinic. ) Additional Recommendations Glucagon Emergency kit [...] and admission to the intensive care unit. [facility] Kenroy Farr MD Attending Emergency Physician [...] does not have HOCM but mom called facilities custodian who said to come here for evaluation. Patient also is endorsing viral URI symptoms such as sore throat, dry intermittent cough, congestion, runny nose. Denies fevers or chills. Reports that chest pain is bilateral tightness and does not radiate elsewhere. Never had a blood clot before. Patient works at [employer]. Did not get his flu shot. No [...] for the Shift: monitor blood sugars Summary: STANT CURATOR * Plan of Care - Amna Foreman [...] no formal diagnosis ofDiabetes Mellitus. In the [facility] ED, patient was treated with IVF, [...] as an outpatient. Patient was seen by family educator andnutrition to educate the patient about carbohydrate [...] 5mg qday Consider repeat fasting lipid panel STANT CURATOR * Plan of Care - Muna Rojas [...] Glenn Chiu MD, am taking signout from [facility]. I have reviewed all pertinent vital signs, [...] they might be taking a pt from [facility] so will call back in regards to [...] MICU beds available. Will attempt transfer to [facility] By: Melanie Sloan MD Time: 03/03 0338 Comment: Gap closed, will give lantus 40 units (0.3 units/kg would be 66) and turn off drip in 2 hours, floor admission By: MD Noah Sosa MD Resident 03/03/19 6691 * ED Observation Provider Note - Bonita [...] help HTN. - HDS. CTM vital signs. STANT CURATOR * Assessment & Plan Note - Jann [...] - Daily BMPs. Replete as needed. - visual educator consult placed. - HbA1c 5.8 in [...] will require referral to endocrinology at discharge. STANT CURATOR * ED Observation Provider Note - Bonita [...] out received from: Dr. Miller , [facility], medications, allergies and RN & [...] they might be taking a pt from [facility] so will call back in regards to [...] OSH By: Melanie Sloan MD Time: 03/03 0339 Comment: Gap closed, will give lantus 40 [...] the admitting team. Kenroy Farr MD 03/02/19 5796 * ED Procedure Note - Kenroy Farr [...] Also polyuria and polydipsia. Blood glucose in [id number] and ketones greater than 3 here. On [...] GLUCOSE DEVICE Routine 03/08/2019 7 :45 AM ASSISTANT CURATOR POCT GLUCOSE DEVICE Routine 03/08/2019 3 :32 AM ASSISTANT CURATOR DIFFERENTIAL AUTO Routine 03/08/2019 1:3 2 AM [...] DEVICE Routine 03/02/2019 1 0:14 PM CDT [facility] ILL/INJURED PATIENT ADDL 30 MIN Routine 03/02/2019 10:02 PM CDT [facility] ILL/INJURED PATIENT INIT 30-74 MIN [...] Results * POCT glucose (03/08/2019 7:45 AM ASSISTANT CURATOR) [facility] Glucose, POC 132 70 - 199 mg/dL [facility] Blood specimen (specimen) 03/08/2019 7:45 AM ASSISTANT CURATOR 03/08/2019 7:45 AM ASSISTANT CURATOR us Peter Styles Jr., MD LAB POCT ORDERABLES - DEVICE Final Result [facility] Department [place] [address] * POCT glucose (03/08/2019 3:32 AM ASSISTANT CURATOR) Glucose, POC 101 70 - 199 mg/dL [facility] Blood specimen (specimen) 03/08/2019 3:32 AM ASSISTANT CURATOR 03/08/2019 3:32 AM ASSISTANT CURATOR Peter Styles Jr., MD LAB POCT ORDERABLES - DEVICE Final Result [facility] [address] [facility] Department [place] [address] * (ABNORMAL) Differential, auto (03/08/2019 1:32 AM CDT) Pathologist [facility] Neutrophil abs 3.7 1.7 - 6.5 K/cumm [facility] Imm gran abs 0.0 0.0 - 0.1 K/cumm [facility] Lymphocyte abs 2.8 0.8 - 3.3 K/cumm [facility] Monocyte abs 0.9(H) 0.2 - 0.8 K/cumm [facility] Eosinophil abs 0.3 0.0 - 0.5 K/cumm [facility] Basophil abs 0.0 0.0 - 0.1 K/cumm [facility] Neutrophil pct 47.6 % [facility] Comment: Interpretive Data Percent cell count reference ranges are not reported, since discordance with absolute values may lead to misinterpretation of CBC data. Current Interpretive Data was last revised on 2017. Imm gran pct 0.6 % [facility] Comment: Interpretive Data Percent cell count reference ranges are not reported, since discordance with absolute values may lead to misinterpretation of CBC data. Current Interpretive Data was last revised on 2017. Lymphocyte pct 36.3 % [facility] Comment: Interpretive Data Percent cell count reference ranges are not reported, since discordance with absolute values may lead to misinterpretation of CBC data. Current Interpretive Data was last revised on 2017. Monocyte pct 11.5 % [facility] Comment: Interpretive Data Percent cell count reference ranges are not reported, since discordance with absolute values may lead to misinterpretation of CBC data. Current Interpretive Data was last revised on 2017. Eosinophil pct 3.4 % [facility] Comment: Interpretive Data Percent cell count reference ranges are not reported, since discordance with absolute values may lead to misinterpretation of CBC data. Current Interpretive Data was last revised on 2017. Basophil pct 0.6 % [facility] Comment: Interpretive Data Percent cell count reference ranges are not reported, since discordance with absolute values may lead to misinterpretation of CBC data. Current Interpretive Data was last revised on 2017. Blood specimen (specimen) 03/08/2019 1:32 AM CDT 03/08/2019 3:09 AM ASSISTANT CURATOR us Nita Palacios MD LAB BLOOD ORDERABLES Melina castorena Result [facility] Department [place] [address] * Insulin-like growth factor (IGF-1) (03/08/2019 1:32 AM CDT) Insulin-like growth factor 1 (IGF-1) 101 80 - 400 ng/mL [facility] Comment: Interpretive Data Ismael Stage ? Male ? Female ?I ?80-250 ? 80-320 ? II ? 100-450 ?120-450 ??III ? 250-500 ?250-550 ?? IV ? 225-600 ?225-600 ?V ? 225-500 ?180-500 Assay calibrated to WHO and instituted at [facility] 09/2017. References: 1. [employer] IGF-1 Package Insert 2017-02, V 1.0. 2. [facility] [employer] IGFMS entry (https://[employer]/test-catalog/Overview/81850) accessed 09-11-2017. 3. Tutu M, Isac N, Lizandro RT et al. J Clin Endocrinol Metab 2014;99:2831-7673. Current interpretive data was last revised on 2017. Testing performed by: [facility], [facility], [place]., [address] Blood specimen (specimen) 03/08/2019 1:32 AM CDT 03/08/2019 3:00 AM ASSISTANT CURATOR us Peter Styles Jr., MD LAB BLOOD ORDERABLES Final Result Performing Organization Address [facility] Co de Phone Number [facility] [place] [address] * Insulin antibody (03/08/2019 1:32 AM CDT) Insulin ab 0.00 0.00 - 0.02 nmol/L [facility] Comment: ADDITIONAL INFORMATION This test was developed and its performance characteristics determined by [facility] in a manner consistent with CLIA requirements. This test has not been cleared or approved by the U.S. Food and Drug Administration. Test Performed by: [facility] [place] [address] Career Technical Education Teacher: Josiah Turk M.D. Ph.D.; CLIA# [id number] Blood specimen (specimen) 03/08/2019 1:32 AM CDT 03/08/2019 1:46 AM CDT us Peter Styles Jr., MD LAB BLOOD ORDERABLES Final Result Performing Organization Address [facility] Co de Phone Number [facility] [place] [address] * (ABNORMAL) Basic metabolic panel (03/08/2019 1:32 AM CDT) [facility] Sodium 137 135 - 145 mmol/L [facility] Potassium, pl 3.2(L) 3.3 - 4.9 mmol/L [facility] Chloride 102 97 - 110 mmol/L [facility] CO2 23 22 - 32 mmol/L [facility] Anion gap 12 2 - 15 mmol/L [facility] BUN 13 8 - 25 mg/dL [facility] Creatinine 0.84 0.80 - 1.30 mg/dL [facility] Glucose 83 70 - 199 mg/dL [facility] Comment: Interpretive Data Fasting glucose [...] 2017. Calcium 9.4 8.5 - 10.3 mg/dL [facility] Blood specimen (specimen) 03/08/2019 1:32 AM CDT 03/08/2019 3:04 AM ASSISTANT CURATOR us Nita Palacios MD LAB BLOOD ORDERABLES Melina castorena Result [facility] Department [place] [address] * (ABNORMAL) CBC with auto differential (03/08/2019 1:32 AM CDT) [facility] WBC 7.8 3.8 - 9.9 K/cumm [facility] Hgb 15.3 13.0 - 17.5 g/dL [facility] Hct 42.4 38.9 - 50.3 % [facility] Plt 315 150 - 400 K/cumm [facility] MPV 10.3 9.1 - 12.3 fL [facility] RBC 5.19 4.30 - 5.80 M/cumm [facility] MCV 81.7 81.3 - 96.4 fL [facility] MCH 29.5 27.1 - 33.3 pg [facility] MCHC 36.1(H) 32.3 - 35.7 g/dL [facility] RDW CV 12.3 11.1 - 14.9 % [facility] RDW SD 36.3 35.7 - 48.1 fL [facility] NRBC abs 0.02(H) 0.00 - 0.01 K/cumm [facility] Blood specimen (specimen) 03/08/2019 1:32 AM CDT 03/08/2019 3:09 AM ASSISTANT CURATOR us Nita Palacios MD LAB BLOOD ORDERABLES Melina l Result Performing Organization Address [facility] Co de Phone Number [facility] Department [place] [address] * POCT glucose (03/07/2019 11:37 PM CDT) Glucose, POC 111 70 - 199 mg/dL [facility] Blood specimen (specimen) 03/07/2019 11:37 PM CDT 03/07/2019 11:37 PM CDT us Peter Styles Jr., MD LAB POCT ORDERABLES - DEVICE Final Result Performing Organization Address [facility] Co de Phone Number [facility] [place] [address] * POCT glucose (03/07/2019 8:35 PM CDT) Glucose, POC 166 70 - 199 mg/dL [facility] Blood specimen (specimen) 03/07/2019 8:35 PM CDT 03/07/2019 8:35 PM CDT us Peter Styles Jr., MD LAB POCT ORDERABLES - DEVICE Final Result Performing Organization Address [facility] de Phone Number [facility] [place] [address] * POCT glucose (03/07/2019 5:31 PM CDT) Glucose, POC 165 70 - 199 mg/dL [facility] Blood specimen (specimen) 03/07/2019 5:31 PM CDT 03/07/2019 5:31 PM CDT us Peter Styles Jr., MD LAB POCT ORDERABLES - DEVICE Final Result Performing Organization Address [facility] de Phone Number [facility] [place] [address] * (ABNORMAL) POCT glucose (03/07/2019 3:50 PM CDT) Glucose, POC 205(H) 70 - 199 mg/dL [facility] Blood specimen (specimen) 03/07/2019 3:50 PM CDT 03/07/2019 3:50 PM CDT us Peter Styles Jr., MD LAB POCT ORDERABLES - DEVICE Final Result Performing Organization Address [facility] de Phone Number [facility] [place] [employer] [address] * (ABNORMAL) POCT glucose (03/07/2019 11:53 AM CDT) Glucose, POC 278(H) 70 - 199 mg/dL [facility] Blood specimen (specimen) 03/07/2019 11:53 AM CDT 03/07/2019 11:53 AM CDT us Peter Styles Jr., MD LAB POCT ORDERABLES - DEVICE Final Result Performing Organization Address [facility] Co de Phone Number [facility] [place] [address] * POCT glucose (03/07/2019 8:25 AM CDT) Pathologist [facility] Glucose, POC 145 70 - 199 mg/dL [facility] Blood specimen (specimen) 03/07/2019 8:25 AM CDT 03/07/2019 8:25 AM CDT Peter Styles Jr., MD LAB POCT ORDERABLES - DEVICE Final Result [facility] Department [place] [address] * Differential, auto (03/07/2019 1:23 AM CDT) [facility] Neutrophil abs 3.5 1.7 - 6.5 K/cumm [facility] Imm gran abs 0.0 0.0 - 0.1 K/cumm [facility] Lymphocyte abs 2.2 0.8 - 3.3 K/cumm [facility] Monocyte abs 0.6 0.2 - 0.8 K/cumm [facility] Eosinophil abs 0.2 0.0 - 0.5 K/cumm [facility] Basophil abs 0.0 0.0 - 0.1 K/cumm [facility] Neutrophil pct 52.5 % [facility] Comment: Interpretive Data Percent cell count reference ranges are not reported, since discordance with absolute values may lead to misinterpretation of CBC data. Current Interpretive Data was last revised on 2017. Imm gran pct 0.6 % [facility] Comment: Interpretive Data Percent cell count reference ranges are not reported, since discordance with absolute values may lead to misinterpretation of CBC data. Current Interpretive Data was last revised on 2017. Lymphocyte pct 33.1 % [facility] Comment: Interpretive Data Percent cell count reference ranges are not reported, since discordance with absolute values may lead to misinterpretation of CBC data. Current Interpretive Data was last revised on 2017. Monocyte pct 9.4 % [facility] Comment: Interpretive Data Percent cell count reference ranges are not reported, since discordance with absolute values may lead to misinterpretation of CBC data. Current Interpretive Data was last revised on 2017. Eosinophil pct 3.8 % [facility] Comment: Interpretive Data Percent cell count reference ranges are not reported, since discordance with absolute values may lead to misinterpretation of CBC data. Current Interpretive Data was last revised on 2017. Basophil pct 0.6 % [facility] Comment: Interpretive Data Percent cell count reference ranges are not reported, since discordance with absolute values may lead to misinterpretation of CBC data. Current Interpretive Data was last revised on 2017. Blood specimen (specimen) 03/07/2019 1:23 AM CDT 03/07/2019 1:38 AM CDT Nita Palacios MD LAB BLOOD ORDERABLES Melina castorena Result [facility] Department [place] [address] * (ABNORMAL) Basic metabolic panel (03/07/2019 1:23 AM CDT) Sodium 137 135 - 145 mmol/L [facility] Potassium, pl 3.1(L) 3.3 - 4.9 mmol/L [facility] Chloride 101 97 - 110 mmol/L [facility] CO2 25 22 - 32 mmol/L [facility] Anion gap 11 2 - 15 mmol/L [facility] BUN 10 8 - 25 mg/dL [facility] Creatinine 0.75(L) 0.80 - 1.30 mg/dL [facility] Glucose 109 70 - 199 mg/dL [facility] Comment: Interpretive Data Fasting glucose [...] 2017. Calcium 9.6 8.5 - 10.3 mg/dL [facility] Blood specimen (specimen) 03/07/2019 1:23 AM CDT 03/07/2019 1:38 AM CDT us Nita Palacios MD LAB BLOOD ORDERABLES Melina l Result Performing Organization Address [facility] Co de Phone Number [facility] [place] [address] * (ABNORMAL) CBC with auto differential (03/07/2019 1:23 AM CDT) WBC 6.6 3.8 - 9.9 K/cumm [facility] Hgb 15.6 13.0 - 17.5 g/dL [facility] Hct 41.9 38.9 - 50.3 % [facility] Plt 311 150 - 400 K/cumm [facility] MPV 9.9 9.1 - 12.3 fL [facility] RBC 5.28 4.30 - 5.80 M/cumm [facility] MCV 79.4(L) 81.3 - 96.4 fL [facility] MCH 29.5 27.1 - 33.3 pg [facility] MCHC 37.2(H) 32.3 - 35.7 g/dL [facility] RDW CV 12.1 11.1 - 14.9 % [facility] RDW SD 34.5(L) 35.7 - 48.1 fL [facility] NRBC abs 0.00 0.00 - 0.01 K/cumm [facility] Blood specimen (specimen) 03/07/2019 1:23 AM CDT 03/07/2019 1:38 AM CDT us Nita Palacios MD LAB BLOOD ORDERABLES Melina l Result Performing Organization Address [facility] Co de Phone Number [facility] [place] [address] * (ABNORMAL) POCT glucose (03/06/2019 8:39 PM CDT) Glucose, POC 232(H) 70 - 199 mg/dL [facility] Glucose comment 1 RN Notified [facility] Blood specimen (specimen) 03/06/2019 8:39 PM CDT 03/06/2019 8:39 PM CDT us Peter Styles Jr., MD LAB POCT ORDERABLES - DEVICE Final Result Performing Organization Address [facility] [place] [address] * (ABNORMAL) POCT glucose (03/06/2019 4:13 PM CDT) Glucose, POC 286(H) 70 - 199 mg/dL [facility] Glucose comment 1 RN Notified [facility] Blood specimen (specimen) 03/06/2019 4:13 PM CDT 03/06/2019 4:13 PM CDT us Peter Styles Jr., MD LAB POCT ORDERABLES - DEVICE Final Result Performing Organization Address [facility] Co de Phone Number [facility] [place] [address] * (ABNORMAL) POCT glucose (03/06/2019 12:46 PM CDT) Glucose, POC 241(H) 70 - 199 mg/dL [facility] Blood specimen (specimen) 03/06/2019 12:46 PM CDT 03/06/2019 12:46 PM CDT us Peter Styles Jr., MD LAB POCT ORDERABLES - DEVICE Final Result Performing Organization Address [facility]/ZIP Co de Phone Number [facility] [place] [address] * (ABNORMAL) POCT glucose (03/06/2019 8:09 AM CDT) Glucose, POC 277(H) 70 - 199 mg/dL [facility] Blood specimen (specimen) 03/06/2019 8:09 AM CDT 03/06/2019 8:09 AM CDT us Peter Styles Jr., MD LAB POCT ORDERABLES - DEVICE Final Result Performing Organization Address [facility]/[place] [address] * (ABNORMAL) POCT glucose (03/06/2019 2:50 AM CDT) Glucose, POC 287(H) 70 - 199 mg/dL [facility] Blood specimen (specimen) 03/06/2019 2:50 AM CDT 03/06/2019 2:50 AM CDT us Peter Styles Jr., MD LAB POCT ORDERABLES - DEVICE Final Result Performing Organization Address [facility] [place] [address] * (ABNORMAL) POCT glucose (03/06/2019 12:48 AM CDT) Glucose, POC 281(H) 70 - 199 mg/dL [facility] Blood specimen (specimen) 03/06/2019 12:48 AM CDT 03/06/2019 12:48 AM CDT us Peter Styles Jr., MD LAB POCT ORDERABLES - DEVICE Final Result Performing Organization Address City/[facility]/ZIP Co de Phone Number [facility] [place] [address] * Differential, auto (03/05/2019 11:51 PM CDT) [...] [facility] Neutrophil pct 52.7 % [facility] Comment: Interpretive Data Percent cell count reference ranges are not reported, since discordance with absolute values may lead to misinterpretation of CBC data. Current Interpretive Data was last revised on 2017. Imm gran pct 0.6 % [facility] Comment: Interpretive Data Percent cell count reference ranges are not reported, since discordance with absolute values may lead to misinterpretation of CBC data. Current Interpretive Data was last revised on 2017. Lymphocyte pct 35.6 % [facility] Comment: Interpretive Data Percent cell count reference ranges are not reported, since discordance with absolute values may lead to misinterpretation of CBC data. Current Interpretive Data was last revised on 2017. Monocyte pct 6.8 % [facility] Comment: Interpretive Data Percent cell count reference ranges are not reported, since discordance with absolute values may lead to misinterpretation of CBC data. Current Interpretive Data was last revised on 2017. Eosinophil pct 3.7 % [facility] Comment: Interpretive Data Percent cell count reference ranges are not reported, since discordance with absolute values may lead to misinterpretation of CBC data. Current Interpretive Data was last revised on 2017. Basophil pct 0.6 % [facility] Comment: Interpretive Data Percent cell count reference ranges are not reported, since discordance with absolute values may lead to misinterpretation of CBC data. Current Interpretive Data was last revised on 2017. Blood specimen (specimen) 03/05/2019 11:51 PM CDT 03/06/2019 12:10 AM CDT us Nita Palacios MD LAB BLOOD ORDERABLES Melina castorena Result [facility] Department [place] [address] * (ABNORMAL) Basic metabolic panel (03/05/2019 11:51 PM CDT) Sodium 132(L) 135 - 145 mmol/L [facility] Potassium, pl 3.7 3.3 - 4.9 mmol/L [facility] Comment:Hemolyzed; (++); pot assium value may be falsely elevated by as much as 0.3 - 0.5 mmol/L. Suggest redraw and reanalysis. Chloride 100 97 - 110 mmol/L [facility] CO2 21(L) 22 - 32 mmol/L [facility] Anion gap 11 2 - 15 mmol/L [facility] BUN 12 8 - 25 mg/dL [facility] Creatinine 0.71(L) 0.80 - 1.30 mg/dL [facility] Glucose 289(H) 70 - 199 mg/dL [facility] Comment: Interpretive Data Fasting glucose [...] Calcium 9.5 8.5 - 10.3 mg/dL [facility] Blood specimen (specimen) 03/05/2019 11:51 PM CDT 03/06/2019 12:10 AM CDT us Nita Palacios MD LAB BLOOD ORDERABLES Melina castorena Result Performing Organization Address [facility]/ZIP Co de Phone Number [facility] [place] [address] * (ABNORMAL) CBC with auto differential (03/05/2019 11:51 PM CDT) [facility] WBC 5.4 3.8 - 9.9 K/cumm [facility] Hgb 15.6 13.0 - 17.5 g/dL [facility] Hct 42.2 38.9 - 50.3 % [facility] Plt 303 150 - 400 K/cumm [facility] MPV 9.9 9.1 - 12.3 fL [facility] RBC 5.24 4.30 - 5.80 M/cumm [facility] MCV 80.5(L) 81.3 - 96.4 fL [facility] MCH 29.8 27.1 - 33.3 pg [facility] MCHC 37.0(H) 32.3 - 35.7 g/dL [facility] RDW CV 12.1 11.1 - 14.9 % [facility] RDW SD 34.7(L) 35.7 - 48.1 fL [facility] NRBC abs 0.00 0.00 - 0.01 K/cumm [facility] Blood specimen (specimen) 03/05/2019 11:51 PM CDT 03/06/2019 12:10 AM CDT us Nita Palacios MD LAB BLOOD ORDERABLES Melina castorena Result [facility] [place] [address] * (ABNORMAL) POCT glucose (03/05/2019 9:18 PM CDT) [facility] Glucose, POC 356(H) 70 - 199 mg/dL [facility] Glucose comment 1 RN Notified [facility] Blood specimen (specimen) 03/05/2019 9:18 PM CDT 03/05/2019 9:18 PM CDT us Peter Styles Jr., MD LAB POCT ORDERABLES - DEVICE Final Result Performing Organization Address [facility] [place] [address] * (ABNORMAL) POCT glucose (03/05/2019 5:40 PM CDT) Glucose, POC 295(H) 70 - 199 mg/dL [facility] Blood specimen (specimen) 03/05/2019 5:40 PM CDT 03/05/2019 5:40 PM CDT us Peter Styles Jr., MD LAB POCT ORDERABLES - DEVICE Final Result Performing Organization Address [facility] [place] [address] * (ABNORMAL) POCT glucose (03/05/2019 11:56 AM CDT) Glucose, POC 387(H) 70 - 199 mg/dL [facility] Glucose comment 1 RN Notified [facility] Blood specimen (specimen) 03/05/2019 11:56 AM CDT 03/05/2019 11:56 AM CDT us Peter Styles Jr., MD LAB POCT ORDERABLES - DEVICE Final Result Performing Organization Address [facility] [place] [address] * (ABNORMAL) POCT glucose (03/05/2019 7:59 AM CDT) Glucose, POC 293(H) 70 - 199 mg/dL [facility] Blood specimen (specimen) 03/05/2019 7:59 AM CDT 03/05/2019 7:59 AM CDT us Peter Styles Jr., MD LAB POCT ORDERABLES - DEVICE Final Result [facility] Department [place] [address] * Differential, auto (03/05/2019 5:37 AM CDT) Neutrophil abs 2.6 1.7 - 6.5 K/cumm [facility] Imm gran abs 0.0 0.0 - 0.1 K/cumm [facility] Lymphocyte abs 1.5 0.8 - 3.3 K/cumm [facility] Monocyte abs 0.5 0.2 - 0.8 K/cumm [facility] Eosinophil abs 0.2 0.0 - 0.5 K/cumm [facility] Basophil abs 0.0 0.0 - 0.1 K/cumm [facility] Neutrophil pct 54.5 % [facility] Comment: Interpretive Data Percent cell count reference ranges are not reported, since discordance with absolute values may lead to misinterpretation of CBC data. Current Interpretive Data was last revised on 2017. Imm gran pct 0.8 % [facility] Comment: Interpretive Data Percent cell count reference ranges are not reported, since discordance with absolute values may lead to misinterpretation of CBC data. Current Interpretive Data was last revised on 2017. Lymphocyte pct 30.2 % [facility] Comment: Interpretive Data Percent cell count reference ranges are not reported, since discordance with absolute values may lead to misinterpretation of CBC data. Current Interpretive Data was last revised on 2017. Monocyte pct 10.4 % [facility] Comment: Interpretive Data Percent cell count reference ranges are not reported, since discordance with absolute values may lead to misinterpretation of CBC data. Current Interpretive Data was last revised on 2017. Eosinophil pct 3.5 % [facility] Comment: Interpretive Data Percent cell count reference ranges are not reported, since discordance with absolute values may lead to misinterpretation of CBC data. Current Interpretive Data was last revised on 2017. Basophil pct 0.6 % [facility] Comment: Interpretive Data Percent cell count reference ranges are not reported, since discordance with absolute values may lead to misinterpretation of CBC data. Current Interpretive Data was last revised on 2017. Blood specimen (specimen) 03/05/2019 5:37 AM CDT 03/05/2019 5:48 AM CDT us Nita Palacios MD LAB BLOOD ORDERABLES Melina l Result Performing Organization Address [facility] Co de Phone Number [facility] Department [place] [address] * (ABNORMAL) Basic metabolic panel (03/05/2019 5:37 AM CDT) Pathologist [facility] Sodium 135 135 - 145 mmol/L [facility] Potassium, pl 3.5 3.3 - 4.9 mmol/L [facility] Chloride 102 97 - 110 mmol/L [facility] CO2 20(L) 22 - 32 mmol/L [facility] Anion gap 13 2 - 15 mmol/L [facility] BUN 10 8 - 25 mg/dL [facility] Creatinine 0.68(L) 0.80 - 1.30 mg/dL [facility] Glucose 275(H) 70 - 199 mg/dL [facility] Comment: Interpretive Data Fasting glucose [...] Calcium 9.3 8.5 - 10.3 mg/dL [facility] Blood specimen (specimen) 03/05/2019 5:37 AM CDT 03/05/2019 5:48 AM CDT us Nita Palacios MD LAB BLOOD ORDERABLES Melina l Result Performing Organization Address [facility] de Phone Number [facility] Department [place] [address] * (ABNORMAL) CBC with auto differential (03/05/2019 5:37 AM CDT) [facility] WBC 4.8 3.8 - 9.9 K/cumm [facility] Hgb 14.7 13.0 - 17.5 g/dL [facility] Hct 40.2 38.9 - 50.3 % [facility] Plt 281 150 - 400 K/cumm [facility] MPV 10.0 9.1 - 12.3 fL [facility] RBC 4.97 4.30 - 5.80 M/cumm [facility] MCV 80.9(L) 81.3 - 96.4 fL [facility] MCH 29.6 27.1 - 33.3 pg [facility] MCHC 36.6(H) 32.3 - 35.7 g/dL [facility] RDW CV 12.5 11.1 - 14.9 % [facility] RDW SD 36.0 35.7 - 48.1 fL [facility] NRBC abs 0.00 0.00 - 0.01 K/cumm [facility] Blood specimen (specimen) 03/05/2019 5:37 AM CDT 03/05/2019 5:48 AM CDT us Nita Palacios MD LAB BLOOD ORDERABLES Melina l Result Performing Organization Address [facility] Co de Phone Number [facility] [place] [address] * (ABNORMAL) POCT glucose (03/04/2019 10:35 PM CDT) [facility] Glucose, POC 248(H) 70 - 199 mg/dL [facility] Blood specimen (specimen) 03/04/2019 10:35 PM CDT 03/04/2019 10:35 PM CDT us Peter Styles Jr., MD LAB POCT ORDERABLES - DEVICE Final Result Performing Organization Address [facility] [place] [address] * (ABNORMAL) POCT glucose (03/04/2019 6:30 PM CDT) Glucose, POC 251(H) 70 - 199 mg/dL [facility] Glucose comment 1 RN Notified [facility] Blood specimen (specimen) 03/04/2019 6:30 PM CDT 03/04/2019 6:30 PM CDT us Peter Styles Jr., MD LAB POCT ORDERABLES - DEVICE Final Result Performing Organization Address [facility] de Phone Number [facility] [employer] [place], [place] [id number] * (ABNORMAL) POCT glucose (03/04/2019 5:33 PM CDT) Glucose, POC 277(H) 70 - 199 mg/dL [facility] Glucose comment 1 RN Notified [facility] Blood specimen (specimen) 03/04/2019 5:33 PM CDT 03/04/2019 5:33 PM CDT us Peter Styles Jr., MD LAB POCT ORDERABLES - DEVICE Final Result Performing Organization Address [facility] de Phone Number [facility] [employer] [place], [place] [id number] * (ABNORMAL) POCT glucose (03/04/2019 4:04 PM CDT) Glucose, POC 261(H) 70 - 199 mg/dL [facility] Blood specimen (specimen) 03/04/2019 4:04 PM CDT 03/04/2019 4:04 PM CDT us Peter Styles Jr., MD LAB POCT ORDERABLES - DEVICE Final Result Performing Organization Address [facility] Co de Phone Number [facility] [place] [employer] [address] * (ABNORMAL) POCT glucose (03/04/2019 2:07 PM CDT) Glucose, POC 260(H) 70 - 199 mg/dL [facility] Blood specimen (specimen) 03/04/2019 2:07 PM CDT 03/04/2019 2:07 PM CDT us Peter Styles Jr., MD LAB POCT ORDERABLES - DEVICE Final Result Performing Organization Address [facility] de Phone Number [facility] [place] [employer] [address] * (ABNORMAL) POCT glucose (03/04/2019 1:00 PM CDT) Glucose, POC 265(H) 70 - 199 mg/dL [facility] Blood specimen (specimen) 03/04/2019 1:00 PM CDT 03/04/2019 1:00 PM CDT us Peter Styles Jr., MD LAB POCT ORDERABLES - DEVICE Final Result Performing Organization Address [facility] Co de Phone Number [facility] [place] [employer] [address] * (ABNORMAL) POCT glucose (03/04/2019 12:03 PM CDT) Glucose, POC 302(H) 70 - 199 mg/dL [facility] Glucose comment 1 RN Notified [facility] Blood specimen (specimen) 03/04/2019 12:03 PM CDT 03/04/2019 12:03 PM CDT us Peter Styles Jr., MD LAB POCT ORDERABLES - DEVICE Final Result Performing Organization Address [facility] Co de Phone Number [facility] [place] [address] * (ABNORMAL) Albumin Creatinine Ratio, Urine (03/04/2019 11:52 AM CDT) Albumin Ur 31.1 mg/L [facility] Comment: Interpretive Data No reference range established. Current interpretive data was last revised 2018. Creatinine Ur 52.5 mg/dL [facility] Comment: Interpretive Data No reference range established. Current interpretive data was last revised 2018. Albumin Creatinine Ratio, Ur 59(H) 1 - 29 mg/g [facility] Urine 03/04/2019 11:5 2 AM CDT 03/04/2019 12:10 PM CDT Narrative [facility] - 03/04/2019 1:06 PM CDT THE [facility] COLLECTION LOCATION IS [facility] OBS- us Nita Palacios MD LAB URINE ORDERABLES Melina l Result Performing Organization Address [facility] Co de Phone Number [facility] [place] [address] * (ABNORMAL) POCT glucose (03/04/2019 10:00 AM CDT) [facility] Signature Glucose, POC 324(H) 70 - 199 mg/dL [facility] Blood specimen (specimen) 03/04/2019 10:00 AM CDT 03/04/2019 10:00 AM CDT us Peter Styles Jr., MD LAB POCT ORDERABLES - DEVICE Final Result Performing Organization Address [facility] Co de Phone Number [facility] [place] [address] * (ABNORMAL) POCT glucose (03/04/2019 7:49 AM CDT) Glucose, POC 342(H) 70 - 199 mg/dL [facility] Glucose comment 1 RN Notified [facility] Blood specimen (specimen) 03/04/2019 7:49 AM CDT 03/04/2019 7:49 AM CDT Peter Styles Jr., MD LAB POCT ORDERABLES - DEVICE Final Result Performing Organization Address [facility] de Phone Number [facility] [place] [address] * Cholesterol, LDL, direct (03/04/2019 6:48 AM CDT) [facility] LDL Cholesterol, Direct 39 <=129 mg/dL [facility] Comment: Interpretive Data Ages < [...] AM CDT 03/04/2019 6:56 AM CDT Narrative [facility] - 03/04/2019 8:59 AM CDT Cholesterol, LDL, direct reflexed based on Elevated Triglyceride (>400) us Nita Palacios MD LAB BLOOD ORDERABLES Melina l Result Performing Organization Address [facility] Co de Phone Number [facility] [place] [address] * Glutamic acid decarboxylase (03/04/2019 6:48 AM CDT) [id number] ab ser 0.00 <=0.02 nmol/L [facility] Comment: ADDITIONAL INFORMATION This test was developed and its performance characteristics determined by [facility] in a manner consistent with CLIA requirements. This test has not been cleared or approved by the U.S. Food and Drug Administration. Test Performed by: [place] [address] [employer] Teacher: Josiah Turk M.D. Ph.D.; CLIA# [id number] Blood specimen (specimen) 03/04/2019 6:48 AM CDT 03/04/2019 8:02 AM CDT Nita Palacios MD LAB BLOOD ORDERABLES Melina castorena Result [facility] Department [place] [address] * (ABNORMAL) Lipid panel (03/04/2019 6:48 AM [...] on 2017. Triglycerides 1,274(H) <=149 mg/dL [facility] Comment: Interpretive Data Ages < or [...] revised on 2017. HDL 17(L) >=40 mg/dL [facility] Comment: Interpretive Data Ages < [...] 2017. LDL, calculated See Comment <=129 [facility] Comment: Unable to calculate exact result. [...] revised on 2017. Non-HDL Cholesterol 189 mg/[facility] Comment: Interpretive Data Ages < or [...] last revised on 2017. Chol/HDL ratio 12 [facility] Blood specimen (specimen) 03/04/2019 6:48 AM CDT 03/04/2019 6:56 AM CDT us Nita Palacios MD LAB BLOOD ORDERABLES Melina castorena Result [facility] Department [place] [address] * Phosphorus (03/04/2019 6:48 AM CDT) Pathologist [facility] Phosphorus, pl 2.6 2.3 - 4.5 mg/dL [facility] Blood specimen (specimen) 03/04/2019 6:48 AM CDT 03/04/2019 6:56 AM CDT Nita Palacios MD LAB BLOOD ORDERABLES Melina l Result Performing Organization Address [facility] Co de Phone Number [facility] [place] [address] * Magnesium (03/04/2019 6:48 AM CDT) [facility] Magnesium 1.8 1.4 - 2.5 mg/dL [facility] Blood specimen (specimen) 03/04/2019 6:48 AM CDT 03/04/2019 6:56 AM CDT Nita Palacios MD LAB BLOOD ORDERABLES Melina l Result Performing Organization Address [facility] de Phone Number [facility] [place] [address] * (ABNORMAL) Comprehensive metabolic panel (03/04/2019 6:48 AM CDT) [facility] Sodium 134(L) 135 - 145 mmol/L [facility] Potassium, pl 3.9 3.3 - 4.9 mmol/L [facility] Chloride 104 97 - 110 mmol/L [facility] CO2 20(L) 22 - 32 mmol/L [facility] Anion gap 10 2 - 15 mmol/L [facility] BUN 10 8 - 25 mg/dL [facility] Creatinine 0.70(L) 0.80 - 1.30 mg/dL [facility] Glucose 319(H) 70 - 199 mg/dL [facility] Comment: Interpretive Data Fasting glucose [...] 2017. Calcium 8.8 8.5 - 10.3 mg/dL [facility] Bilirubin, total 0.4 0.1 - 1.2 mg/dL [facility] Protein, pl 7.1 6.5 - 8.5 g/dL [facility] Albumin 4.1 3.5 - 5.0 g/dL [facility] Alk phos 90 40 - 130 Units/L [facility] ALT 85(H) 7 - 55 Units/L [facility] AST 53(H) 10 - 50 Units/L [facility] Blood specimen (specimen) 03/04/2019 6:48 AM CDT 03/04/2019 6:56 AM CDT us Nita Palacios MD LAB BLOOD ORDERABLES Melina l Result Performing Organization Address City/[facility]/ZIP Co de Phone Number [facility] [place] [address] * (ABNORMAL) POCT glucose (03/04/2019 12:36 AM CDT) Glucose, POC 347(H) 70 - 199 mg/dL [facility] Blood specimen (specimen) 03/04/2019 12:36 AM CDT 03/04/2019 12:36 AM CDT us Peter Styles Jr., MD LAB POCT ORDERABLES - DEVICE Final Result Performing Organization Address City/[facility]/ZIP Co de Phone Number [facility] [place] [address] * (ABNORMAL) POCT glucose (03/03/2019 11:18 PM CDT) Glucose, POC 412(H) 70 - 199 mg/dL [facility] Blood specimen (specimen) 03/03/2019 11:18 PM CDT 03/03/2019 11:18 PM CDT us Peter Styles Jr., MD LAB POCT ORDERABLES - DEVICE Final Result Performing Organization Address City/[facility] Co de Phone Number [facility] [place] [address] * (ABNORMAL) POCT glucose (03/03/2019 10:09 PM CDT) [facility] Glucose, POC 365(H) 70 - 199 mg/dL [facility] Blood specimen (specimen) 03/03/2019 10:09 PM CDT 03/03/2019 10:09 PM CDT us Peter Styles Jr., MD LAB POCT ORDERABLES - DEVICE Final Result Performing Organization Address [facility] de Phone Number [facility] [place] [address] * (ABNORMAL) Basic metabolic panel (03/03/2019 10:07 PM CDT) [facility] Sodium 132(L) 135 - 145 mmol/L [facility] Potassium, pl 4.1 3.3 - 4.9 mmol/L [facility] Comment:Hemolyzed; (+++); po tassium value may be falsely elevated by as much as 0.6 - 1.0 mmol/L. Suggest redraw and reanalysis. Chloride 100 97 - 110 mmol/L [facility] CO2 20(L) 22 - 32 mmol/L [facility] Anion gap 12 2 - 15 mmol/L [facility] BUN 11 8 - 25 mg/dL [facility] Creatinine 0.72(L) 0.80 - 1.30 mg/dL [facility] Glucose 355(H) 70 - 199 mg/dL [facility] Comment: Interpretive Data Fasting glucose [...] 2017. Calcium 8.8 8.5 - 10.3 mg/dL [facility] Blood specimen (specimen) 03/03/2019 10:07 PM CDT 03/03/2019 10:21 PM CDT Narrative [facility] - 03/03/2019 10:46 PM CDT THE COLLECTION LOCATION IS [facility] OBS-01 Noah Burgess MD LAB BLOOD ORDERABLES Melina l Result Performing Organization Address City/[facility]/ZIP Co de Phone Number [facility] [place] [address] * Potassium, whole blood (03/03/2019 7:35 PM CDT) Potassium, bld 3.9 3.3 - 4.9 mmol/L [facility] Blood specimen (specimen) 03/03/2019 7:35 PM CDT 03/03/2019 7:41 PM CDT Narrative [facility] - 03/03/2019 7:50 PM CDT THE COLLECTION LOCATION IS [facility] OBS-01 us Bonita Moreno NP LAB BLOOD ORDERABLES Final Result Performing Organization Address City/[facility]/ZIP Co de Phone Number [facility] [employer] [place], [place] [id number] * (ABNORMAL) POCT glucose (03/03/2019 7:22 PM CDT) Glucose, POC 267(H) 70 - 199 mg/dL [facility] Blood specimen (specimen) 03/03/2019 7:22 PM CDT 03/03/2019 7:22 PM CDT us Peter Styles Jr., MD LAB POCT ORDERABLES - DEVICE Final Result Performing Organization Address [facility] de Phone Number [facility] [place] [address] * (ABNORMAL) POCT glucose (03/03/2019 5:35 PM CDT) [facility] Glucose, POC 280(H) 70 - 199 mg/dL [facility] Blood specimen (specimen) 03/03/2019 5:35 PM CDT 03/03/2019 5:35 PM CDT us Peter Styles Jr., MD LAB POCT ORDERABLES - DEVICE Final Result Performing Organization Address [facility] Phone Number [facility] [place] [address] * (ABNORMAL) POCT glucose (03/03/2019 3:54 PM CDT) [facility] Glucose, POC 297(H) 70 - 199 mg/dL [facility] Blood specimen (specimen) 03/03/2019 3:54 PM CDT 03/03/2019 3:54 PM CDT us Peter Styles Jr., MD LAB POCT ORDERABLES - DEVICE Final Result Performing Organization Address [facility] [place] [address] * (ABNORMAL) Basic metabolic panel (03/03/2019 2:15 PM CDT) [facility] Sodium 132(L) 135 - 145 mmol/L [facility] Comment:Lipemic Potassium, pl 4.1 3.3 - 4.9 mmol/L [facility] Comment: Hemolyzed; (+++); potassium value may be falsely elevated by as much as 0.6 - 1.0 mmol/L. Suggest redraw and reanalysis. Lipemic Chloride 99 97 - 110 mmol/L [facility] Comment:Lipemic CO2 19(L) 22 - 32 mmol/L [facility] Comment:Lipemic Anion gap 14 2 - 15 mmol/L [facility] Comment:Lipemic BUN 12 8 - 25 mg/dL [facility] Comment:Lipemic Creatinine 0.78(L) 0.80 - 1.30 mg/dL [facility] Comment:Lipemic Glucose 277(H) 70 - 199 mg/dL [facility] Comment: Lipemic Interpretive Data Fasting [...] 2017. Calcium 8.8 8.5 - 10.3 mg/dL [facility] Comment:Lipemic Blood specimen (specimen) 03/03/2019 2:15 PM CDT 03/03/2019 3:29 PM CDT Narrative [facility] - 03/03/2019 3:56 PM CDT THE COLLECTION LOCATION IS [facility] OBS-01 Bonita Moreno [employer] LAB BLOOD ORDERABLES Final Result [facility] Department of Laboratories [place], [place] [id number] * (ABNORMAL) POCT glucose (03/03/2019 12:28 PM CDT) Pathologist [facility] Glucose, POC 240(H) 70 - 199 mg/dL [facility] Blood specimen (specimen) 03/03/2019 12:28 PM CDT 03/03/2019 12:28 PM CDT us Peter Styles Jr., MD LAB POCT ORDERABLES - DEVICE Final Result Performing Organization Address [facility] de Phone Number [facility] [place] [address] * (ABNORMAL) POCT glucose (03/03/2019 10:56 AM CDT) Glucose, POC 205(H) 70 - 199 mg/dL [facility] Blood specimen (specimen) 03/03/2019 10:56 AM CDT 03/03/2019 10:56 AM CDT us Peter Styles Jr., MD LAB POCT ORDERABLES - DEVICE Final Result Performing Organization Address [facility] Phone Number [facility] [place] [address] * POCT glucose (03/03/2019 9:35 AM CDT) Glucose, POC 193 70 - 199 mg/dL [facility] Blood specimen (specimen) 03/03/2019 9:35 AM CDT 03/03/2019 9:35 AM CDT Peter Styles Jr., MD LAB POCT ORDERABLES - DEVICE Final Result Performing Organization Address [facility] de Phone Number [facility] [place] [employer] [address] * (ABNORMAL) Basic metabolic panel (03/03/2019 7:45 AM CDT) Sodium 136 135 - 145 mmol/L [facility] Potassium, pl 4.0 3.3 - 4.9 mmol/L [facility] Comment:Hemolyzed; (+++); po tassium value may be falsely elevated by as much as 0.6 - 1.0 mmol/L. Suggest redraw and reanalysis. Chloride 103 97 - 110 mmol/L [facility] CO2 22 22 - 32 mmol/L [facility] Anion gap 12 2 - 15 mmol/L [facility] BUN 14 8 - 25 mg/dL [facility] Creatinine 0.74(L) 0.80 - 1.30 mg/dL [facility] Glucose 156 70 - 199 mg/dL [facility] Comment: Interpretive Data Fasting glucose [...] 2017. Calcium 8.9 8.5 - 10.3 mg/dL [facility] Blood specimen (specimen) 03/03/2019 7:45 AM CDT 03/03/2019 8:01 AM CDT Narrative [facility] - 03/03/2019 8:36 AM CDT THE COLLECTION LOCATION IS [facility] OBS-01 us Hi Dan MD LAB BLOOD ORDERABLE S Final Result [facility] Department [place] [address] * (ABNORMAL) POCT ketone, fingerstick (03/03/2019 7:38 AM CDT) Ketones, Blood, POC 0.8(A) 0.1 - 0.5 mmol/L Blood specimen (specimen) 03/03/2019 7:38 AM CDT us Bonita Moreno NP POINT OF CARE TEST ORDERABL ES Final Result * POCT glucose (03/03/2019 7:32 AM CDT) Glucose, POC 160 70 - 199 mg/dL [facility] Blood specimen (specimen) 03/03/2019 7:32 AM CDT 03/03/2019 7:32 AM CDT us Nita Palacios MD LAB POCT ORDERABLES - DEV ICE Final Result Performing Organization Address City/[facility]/ZIP Co de Phone Number [facility] [place] [address] * (ABNORMAL) Potassium, whole blood (03/03/2019 6:34 AM CDT) [facility] Potassium, bld 3.2(L) 3.3 - 4.9 mmol/L [facility] Blood specimen (specimen) 03/03/2019 6:34 AM CDT 03/03/2019 6:41 AM CDT Narrative [facility] - 03/03/2019 6:47 AM CDT THE BJ COLLECTION LOCATION IS [facility] OBS-01 us Bonita Moreno [employer]GR[employer] LAB BLOOD ORDERABLES Final Result Performing Organization Address [facility] Co de Phone Number [facility] [place] [address] * POCT glucose (03/03/2019 6:30 AM CDT) [facility] Signature Glucose, POC 152 70 - 199 mg/dL [facility] Blood specimen (specimen) 03/03/2019 6:30 AM CDT 03/03/2019 6:30 AM CDT us Charles Bey MD LAB POCT ORDERABLES - DEV ICE Final Result Performing Organization Address City/[facility] Co de Phone Number [facility] [place] [address] * POCT glucose (03/03/2019 5:33 AM CDT) Glucose, POC 162 70 - 199 mg/dL [facility] Blood specimen (specimen) 03/03/2019 5:33 AM CDT 03/03/2019 5:33 AM CDT Charles Bey MD LAB POCT ORDERABLES - DEV ICE Final Result Performing Organization Address City/[facility]/ZIP Co de Phone Number [facility] [place] [address] * (ABNORMAL) POCT glucose (03/03/2019 4:30 AM CDT) [facility] Glucose, POC 203(H) 70 - 199 mg/dL [facility] Blood specimen (specimen) 03/03/2019 4:30 AM CDT 03/03/2019 4:30 AM CDT Result [facility] Mari Rick MD LAB POCT ORDERABLES - ARJUN CE Final Result Performing Organization Address City/[facility] Co de Phone Number [facility] [place] [address] * Influenza A/B and RSV PCR Nasopharyngeal (03/03/2019 3:13 AM CDT) [facility] Influenza A RNA Not Detected Not Detected [facility] Influenza B RNA Not Detected Not Detected [facility] RSV RNA Not Detected Not Detected [facility] Comment: Interpretive Data Testing performed by [facility] ([phone]). This test is performed using the [employer] Xpert Flu/RSV Assay. ??This is a multiplex, real-time reverse transcriptase PCR assay that detects influenza A, influenza B,and respiratory syncytial virus RNA. ??This assay has been cleared by the [place] Food and Drug Administration, and its performance characteristics have been verified by the [facility]. Interpretive Data last revised 2018 Nasopharyngeal 03/03/2019 3: 13 AM CDT 03/03/2019 3:50 AM CDT Narrative [facility] - 03/03/2019 4:23 AM CDT THE COLLECTION LOCATION IS [facility] OBS-01 Hi Dan MD LAB MICROBIOLOGY - GENERAL ORDERABLES Final Result [facility] Department [place] [address] * (ABNORMAL) Basic metabolic panel (03/03/2019 3:13 AM CDT) Sodium 133(L) 135 - 145 mmol/L [facility] Potassium, pl 3.5 3.3 - 4.9 mmol/L [facility] Comment:Hemolyzed; (+++); po tassium value may be falsely elevated by as much as 0.6 - 1.0 mmol/L. Suggest redraw and reanalysis. Chloride 98 97 - 110 mmol/L [facility] CO2 23 22 - 32 mmol/L [facility] Anion gap 12 2 - 15 mmol/L [facility] BUN 15 8 - 25 mg/dL [facility] Creatinine 0.87 0.80 - 1.30 mg/dL [facility] Glucose 218(H) 70 - 199 mg/dL [facility] Comment: Interpretive Data Fasting glucose [...] 2017. Calcium 8.7 8.5 - 10.3 mg/dL [facility] Blood specimen (specimen) 03/03/2019 3:13 AM CDT 03/03/2019 3:38 AM CDT Narrative [facility] - 03/03/2019 4:10 AM CDT THE BJ COLLECTION LOCATION IS [facility] OBS-01 us Hi Dan MD LAB BLOOD ORDERABLE S Final Result Performing Organization Address [facility] Co de Phone Number [facility] [place] [address] * (ABNORMAL) POCT glucose (03/03/2019 3:02 AM CDT) Glucose, POC 233(H) 70 - 199 mg/dL [facility] Blood specimen (specimen) 03/03/2019 3:02 AM CDT 03/03/2019 3:02 AM CDT Mari Rick MD LAB POCT ORDERABLES - ARJUN CE Final Result Performing Organization Address [facility] [place] [address] * (ABNORMAL) POCT glucose (03/03/2019 2:05 AM CDT) Glucose, POC 277(H) 70 - 199 mg/dL [facility] Blood specimen (specimen) 03/03/2019 2:05 AM CDT 03/03/2019 2:05 AM CDT us Mari Rick MD LAB POCT ORDERABLES - ARJUN CE Final Result Performing Organization Address [facility] Co de Phone Number [facility] [place] [address] * (ABNORMAL) POCT glucose (03/03/2019 1:01 AM CDT) Glucose, POC 276(H) 70 - 199 mg/dL [facility] Blood specimen (specimen) 03/03/2019 1:01 AM CDT 03/03/2019 1:01 AM CDT Kenroy Farr MD LAB POCT ORDERABLES - ARJUN CE Final Result Performing Organization Address [facility] Co de Phone Number [facility] [place] [address] * (ABNORMAL) POCT glucose (03/03/2019 12:02 AM CDT) [facility] Glucose, POC 351(H) 70 - 199 mg/dL [facility] Glucose comment 1 Doctor Notified [facility] Blood specimen (specimen) 03/03/2019 12:02 AM CDT 03/03/2019 12:02 AM CDT Kenroy Farr MD LAB POCT ORDERABLES - ARJUN CE Final Result Performing Organization Address [facility] Co de Phone Number [facility] [place] [address] * (ABNORMAL) Basic metabolic panel (03/02/2019 11:15 PM CDT) [facility] Sodium 131(L) 135 - 145 mmol/L [facility] Potassium, pl 3.6 3.3 - 4.9 mmol/L [facility] Comment:Hemolyzed; (+++); po tassium value may be falsely elevated by as much as 0.6 - 1.0 mmol/L. Suggest redraw and reanalysis. Chloride 96(L) 97 - 110 mmol/L [facility] CO2 13(L) 22 - 32 mmol/L [facility] Anion gap 22(H) 2 - 15 mmol/L [facility] BUN 16 8 - 25 mg/dL [facility] Creatinine 0.86 0.80 - 1.30 mg/dL [facility] Glucose 297(H) 70 - 199 mg/dL [facility] Comment: Interpretive Data Fasting glucose [...] 2017. Calcium 8.7 8.5 - 10.3 mg/dL [facility] Blood specimen (specimen) 03/02/2019 11:15 PM CDT 03/02/2019 11:21 PM CDT Kenroy Farr MD LAB BLOOD ORDERABLES Final Result [facility] [place] [address] * Troponin I (03/02/2019 11:15 PM CDT) Troponin I <0.03 0.00 - 0.03 ng/mL [facility] Comment: Interpretive Data: Normal plasma [...] for Troponin assay. References: 1. Clin Chem 2013;[id number] 2. Journal of the [place] [employer] 2012;60:[id number] Current Interpretive Data Last Revised Date: 2017. Blood specimen (specimen) 03/02/2019 11:15 PM CDT 03/02/2019 11:21 PM CDT Narrative [facility] - 03/03/2019 1:06 AM CDT THE COLLECTION LOCATION IS [facility] ED2-23 Windy Mitchell MD LAB BLOOD ORD ERABLES Edited Result - Final Performing Organization Address City/[facility]/ZIP Co de Phone Number [facility] [place] [address] * (ABNORMAL) POCT glucose (03/02/2019 11:08 PM CDT) Glucose, POC 320(H) 70 - 199 mg/dL [facility] Blood specimen (specimen) 03/02/2019 11:08 PM CDT 03/02/2019 11:08 PM CDT us Kenroy Farr MD LAB POCT ORDERABLES - ARJUN CE Final Result Performing Organization Address [facility] de Phone Number [facility] Department [place] [address] * (ABNORMAL) POCT glucose (03/02/2019 10:14 PM CDT) Glucose, POC 378(H) 70 - 199 mg/dL [facility] Blood specimen (specimen) 03/02/2019 10:14 PM CDT 03/02/2019 10:14 PM CDT us Kenroy Farr MD LAB POCT ORDERABLES - ARJUN CE Final Result Performing Organization Address [facility] de Phone Number [facility] [place] [address] * [place] CRITICAL CARE ILL/INJURED PATIENT INIT 30-74 MIN, [place] CRITICAL CARE ILL/INJURED PATIENT ADDL 30 MIN [...] CDT 03/02/2019 9:59 PM CDT Narrative [facility] - 03/02/2019 10:32 PM CDT THE COLLECTION LOCATION IS [id number] us Windy Mitchell MD LAB BLOOD ORD ERABLES Final Result [facility] Department [place] [address] * (ABNORMAL) ECG 12-LEAD (03/02/2019 9:37 PM CDT) Narrative [facility] - 03/02/2019 9:37 PM CDT Kenroy Farr [...] Mitchell MD ECG ORDERABLE S Final Result [facility] * (ABNORMAL) POCT glucose (03/02/2019 9:15 PM CDT) [facility] Signature Glucose, POC 369(H) 70 - 199 mg/dL [facility] Blood specimen (specimen) 03/02/2019 9:15 PM CDT 03/02/2019 9:15 PM CDT Kenroy Farr MD LAB POCT ORDERABLES - ARJUN CE Final Result [facility] Department [place] [address] * (ABNORMAL) Urinalysis, microscopic only (03/02/2019 8:03 PM CDT) WBC, ur 0-5 0 - 5 /HPF [facility] RBC, ur 0-2 0 - 2 /HPF [facility] Epithelial cells, squamous, ur 1-5 0 - 5 /HPF [facility] Mucous, ur Present(A) [facility] Urine 03/02/2019 8:03 PM CDT 03/02/2019 8:07 PM CDT Windy Mitchell MD LAB URINE ORD ERABLES Final Result [facility] Department [place] [address] * (ABNORMAL) Urinalysis reflex to microscopic (03/02/2019 8:03 PM CDT) Color, ur Straw Yellow [facility] Clarity, ur Clear Clear [facility] Specific gravity, ur 1.030(H) 1.010 - 1.025 [facility] pH, urine 6 [facility] Protein, ur ql 3+(A) Negative [facility] Glucose, ur ql 3+(A) Negative [facility] Ketones, ur 2+(A) Negative [facility] Bilirubin, ur Negative Negative [facility] Blood, ur 1+(A) Negative [facility] Urobilinogen, ur <2.0 <2.0 mg/dL [facility] Nitrite, ur Negative Negative [facility] Leukocyte esterase, ur Negative Negative [facility] Urine 03/02/2019 8:03 PM CDT 03/02/2019 8:07 PM CDT Narrative [facility] - 03/02/2019 8:17 PM CDT THE BJ COLLECTION LOCATION IS [place] [address] Urine pH is affected by diet, medications, systemic acid-base disturbances, and renal tubular function. ??pH may affect urinary stone formation. ??For example, urine pH below 6.0 may help reduce the tendency for calcium phosphate stones and pH greater than 6.0 may reduce the tendency for uric acid stone formation. Source: [facility] [employer]. Last revised 05-16-2017 Windy Mitchell MD LAB URINE ORD ERABLES Final Result Performing Organization Address [facility] Co de Phone Number [facility] [place] [address] * (ABNORMAL) POCT glucose (03/02/2019 8:01 PM CDT) Glucose, POC 472(C) 70 - 199 mg/dL [facility] Glucose comment 1 Glu2: [facility] Blood specimen (specimen) 03/02/2019 8:01 PM CDT 03/02/2019 8:01 PM CDT Notinfile Unknown LAB POCT ORDERABLES - DEVICE F inal Result Performing Organization Address [facility] de Phone Number [facility] [place] [address] * (ABNORMAL) Blood gas, venous (03/02/2019 6:56 PM CDT) pH, Venous 7.34 7.32 - 7.43 [facility] PCO2, Venous 33(L) 40 - 50 mmHg [facility] PO2, Venous 108 mmHg [facility] Comment: Interpretive Data No Reference Range Established Current Interpretive Data was last revised on 2017. HCO3 Venous, Calculated 18(L) 20 - 30 mmol/L [facility] BE, venous -7 mmol/L [facility] Comment: Interpretive Data No Reference Range Established Current Interpretive Data was last revised on 2017. Blood specimen (specimen) 03/02/2019 6:56 PM CDT 03/02/2019 7:06 PM CDT Narrative [facility] - 03/02/2019 7:09 PM CDT THE BJ COLLECTION LOCATION IS [facility] [id number] Kenroy Farr MD LAB BLOOD ORDERABLES Final Result [facility] Department [place] [address] * XR Chest Pa Lateral 2 Vw [...] Blood specimen (specimen) 03/02/2019 6:32 PM CDT Windy Mitchell MD POINT OF CARE TEST ORDERABLES Final Result * (ABNORMAL) POCT glucose (03/02/2019 6:28 PM CDT) Pathologist [facility] Glucose, POC 578(C) 70 - 199 mg/dL [facility] Glucose comment 1 Glu2: [facility] Blood specimen (specimen) 03/02/2019 6:28 PM CDT 03/02/2019 6:28 PM CDT Notinfile Unknown LAB POCT ORDERABLES - DEVICE F inal Result Performing Organization Address [facility]/ZIP Co de Phone Number [facility] Department [place] [address] * Potassium, whole blood (03/02/2019 6:25 PM CDT) [facility] Potassium, bld 4.6 3.3 - 4.9 mmol/L [facility] Comment:Hemolyzed; potassium value may be falsely elevated by as much as 1.1 - 1.6 mmol/L. Suggest redraw and reanalysis. Blood specimen (specimen) 03/02/2019 6:25 PM CDT 03/02/2019 6:32 PM CDT Narrative [facility] - 03/02/2019 6:39 PM CDT THE COLLECTION LOCATION IS [facility] [id number] Result [facility] Windy Mitchell MD LAB BLOOD ORD ERABLES Final Result [facility] [place] [address] * (ABNORMAL) Hepatic function panel (03/02/2019 6:25 PM CDT) [facility] Bilirubin, total 0.5 0.1 - 1.2 mg/dL [facility] Bilirubin, direct See Comment 0.1 - 0.3 mg/dL [facility] Comment:CRDT; Hemolyzed spec imen Protein, pl 7.9 6.5 - 8.5 g/dL [facility] Albumin 4.2 3.5 - 5.0 g/dL [facility] Alk phos 137(H) 40 - 130 Units/L [facility] Comment:Hemolyzed; result ma y be falsely decreased. ALT See Comment 7 - 55 Units/L [facility] Comment:Credited; Hemolyzed Specimen AST See Comment 10 - 50 Units/L [facility] Comment:Credited, hemolyzed specimen. Blood specimen (specimen) 03/02/2019 6:25 PM CDT 03/02/2019 6:41 PM CDT Narrative [facility] - 03/02/2019 7:56 PM CDT THE COLLECTION LOCATION IS us Edwin Willams MD LAB BLOOD ORDERABLES Final Resul t [facility] Department [place] [address] * (ABNORMAL) ECG 12-LEAD (03/02/2019 5:59 PM CDT) Narrative [facility] - 03/02/2019 5:59 PM CDT Edwin Willams [...] ORDERABLES Final Resu lt Performing Organization Address City/[facility]/ZIP Co de Phone Number [facility] * (ABNORMAL) Hemoglobin A1c (03/02/2019 5:57 PM CDT) Hgb A1C 9.3(H) 4.0 - 5.6 % [facility] Estimated Average Glucose 220 mg/dL [facility] Comment: The ADA recommends reporting an estimated Average Glucose (eAG) with all Hemoglobin A1c results using the equation derived from a study of 507 normal and diabetic adults. ??Minority populations were underrepresented and children were not included. ?? (Diabetes Care 31:7304-4488, 2008). ??The eAG is not equivalent to a fasting glucose. Blood specimen (specimen) 03/02/2019 5:57 PM CDT 03/02/2019 6:16 PM CDT us Peter Styles Jr., MD LAB BLOOD ORDERABLES Final Result Performing Organization Address City/[facility]/ZIP Co de Phone Number [facility] Department [place] [address] * Critical Result Callback Chemistry (03/02/2019 5:57 PM CDT) Date Notified [id number] [facility] Time Notified 20:01 TRACIE PAZ TestName glucose TRACIE PAZ Called/Read Back elvira PAZ Credentials MD TRACIE PAZ Called By artie HENDERSON Blood specimen (specimen) 03/02/2019 5:57 PM CDT 03/02/2019 6:12 PM CDT Clau Wallis NP LAB BLOOD ORDERABLES Final Result [facility] Department [place] [address] * Differential, auto (03/02/2019 5:57 PM CDT) Neutrophil abs 5.2 1.7 - 6.5 K/cumm [facility] Imm gran abs 0.0 0.0 - 0.1 K/cumm [facility] Lymphocyte abs 1.8 0.8 - 3.3 K/cumm [facility] Monocyte abs 0.6 0.2 - 0.8 K/cumm [facility] Eosinophil abs 0.2 0.0 - 0.5 K/cumm [facility] Basophil abs 0.1 0.0 - 0.1 K/cumm [facility] Neutrophil pct 65.3 % [facility] Comment: Interpretive Data Percent cell count reference ranges are not reported, since discordance with absolute values may lead to misinterpretation of CBC data. Current Interpretive Data was last revised on 2017. Imm gran pct 0.6 % [facility] Comment: Interpretive Data Percent cell count reference ranges are not reported, since discordance with absolute values may lead to misinterpretation of CBC data. Current Interpretive Data was last revised on 2017. Lymphocyte pct 22.9 % [facility] Comment: Interpretive Data Percent cell count reference ranges are not reported, since discordance with absolute values may lead to misinterpretation of CBC data. Current Interpretive Data was last revised on 2017. Monocyte pct 7.8 % [facility] Comment: Interpretive Data Percent cell count reference ranges are not reported, since discordance with absolute values may lead to misinterpretation of CBC data. Current Interpretive Data was last revised on 2017. Eosinophil pct 2.7 % [facility] Comment: Interpretive Data Percent cell count reference ranges are not reported, since discordance with absolute values may lead to misinterpretation of CBC data. Current Interpretive Data was last revised on 2017. Basophil pct 0.7 % [facility] Comment: Interpretive Data Percent cell count reference ranges are not reported, since discordance with absolute values may lead to misinterpretation of CBC data. Current Interpretive Data was last revised on 2017. Blood specimen (specimen) 03/02/2019 5:57 PM CDT 03/02/2019 6:13 PM CDT Clau Wallis NP LAB BLOOD ORDERABLES Final Result Performing Organization Address City/State/[facility] Co de Phone Number [facility] Department [place] [address] * Troponin I (03/02/2019 5:57 PM CDT) [...] for Troponin assay. References: 1. Clin Chem 2013;[id number] 2. Journal of the [place] [employer] 2012;60:1581-98 Current Interpretive Data Last Revised Date: 2017. Blood specimen (specimen) 03/02/2019 5:57 PM CDT 03/02/2019 6:12 PM CDT Narrative [facility] - 03/02/2019 7:09 PM CDT THE COLLECTION LOCATION IS Kenroy Farr MD LAB BLOOD ORDERABLES Edite d Result - Final [facility] Department [place] [address] * (ABNORMAL) Basic metabolic panel (03/02/2019 5:57 PM CDT) Sodium 125(L) 135 - 145 mmol/L [facility] Potassium, pl See Comment 3.3 - 4.9 mmol/L [facility] Comment:CRDT; Grossly Hemoly zed sample; Unable to test. Chloride 87(L) 97 - 110 mmol/L [facility] CO2 15(L) 22 - 32 mmol/L [facility] Anion gap 23(H) 2 - 15 mmol/L [facility] BUN 21 8 - 25 mg/dL [facility] Creatinine 0.94 0.80 - 1.30 mg/dL [facility] Glucose 597(C) 70 - 199 mg/dL [facility] Comment: Interpretive Data Fasting glucose [...] 2017. Calcium 9.8 8.5 - 10.3 mg/dL [facility] Blood specimen (specimen) 03/02/2019 5:57 PM CDT 03/02/2019 6:12 PM CDT Narrative [facility] - 03/02/2019 7:59 PM CDT THE BJ COLLECTION LOCATION IS Kenroy Farr MD LAB BLOOD ORDERABLES Final Result [facility] Department [place] [address] * (ABNORMAL) CBC with auto differential (03/02/2019 5:57 PM CDT) [facility] WBC 8.0 3.8 - 9.9 K/cumm [facility] Hgb 16.2 13.0 - 17.5 g/dL [facility] Comment:Result may be due to compromised sample integrity, request redraw. Hct 42.3 38.9 - 50.3 % [facility] Plt 380 150 - 400 K/cumm [facility] MPV 10.5 9.1 - 12.3 fL [facility] RBC 5.35 4.30 - 5.80 M/cumm [facility] MCV 79.1(L) 81.3 - 96.4 fL [facility] MCH 30.3 27.1 - 33.3 pg [facility] Comment:Result may be due to compromised sample integrity, request redraw. MCHC 38.3(H) 32.3 - 35.7 g/dL [facility] Comment:Result may be due to compromised sample integrity, request redraw. RDW CV 11.9 11.1 - 14.9 % [facility] RDW SD 33.5(L) 35.7 - 48.1 fL [facility] NRBC abs 0.02(H) 0.00 - 0.01 K/cumm [facility] Blood specimen (specimen) (Blood, Venous) 03/02/2019 5:57 PM CDT 03/02/2019 6:13 PM CDT Narrative [facility] - 03/02/2019 7:26 PM CDT THE COLLECTION LOCATION IS us Kenroy Farr MD LAB BLOOD ORDERABLES Final Result [facility] Department [place] [address] * (ABNORMAL) POCT glucose (03/02/2019 5:52 PM CDT) [facility] Glucose, POC 591(C) 70 - 199 mg/dL [facility] Glucose comment 1 Doctor Notified [facility] Blood specimen (specimen) 03/02/2019 5:52 PM CDT 03/02/2019 5:52 PM CDT us Notinfile Unknown LAB POCT ORDERABLES - DEVICE F inal Result [facility] [place] [address] documented in this encounter Visit Diagnoses Diagnosis [...] 03/08/19 at 0900 Given 03/08/2019 8:46 AM ASSISTANT CURATOR 20 mg carvedilol (COREG) tablet 25 mg 25 mg, oral, 2 times daily, First dose on Sat03/03/19 at 0115 Given 03/08/2019 8:48 AM ASSISTANT CURATOR 25 mg Given 03/07/2019 10:09 PM CDT [...] Call MD for each episode of hypoglycemia. REPAIR ELECTRIC MOTOR ASSEMBLER STATES GLUTOSE-15 CONTAINS GLUCOSE 40% W/W (50% [...] ProphylaxisIndications:V TE Prophylaxis Given 03/08/2019 8:48 AM ASSISTANT CURATOR 40 mg Left Lower Abdomen Given 03/07/2019 10:09 PM CDT 40 mg L eft Upper Arm Given 03/07/2019 8:53 AM CDT 40 mg Ri ght Lower Abdomen hydroCHLOROthiazide (HYDRODIURIL) tablet 12.5 mg 12.5 mg, oral, Daily, First dose on Sat03/04/19 at 0900 Given 03/08/2019 8:48 AM ASSISTANT CURATOR 12.5 mg Given 03/07/2019 8:54 AM CDT [...] 03/07/19 at 1645 Given 03/08/2019 8:49 AM ASSISTANT CURATOR 10 Units Left Lower Abdomen Given 03/07/2019 [...] Severe Insulin Resistance Given 03/08/2019 8:44 AM ASSISTANT CURATOR 80 Units Right Upper Arm Given 03/07/2019 5:31 PM CDT 80 Units Ri ght Upper Arm Given 03/07/2019 12:06 PM CDT 80 Units R ight Upper Arm lisinopril (PRINIVIL,ZESTRIL) tablet 5 mg 5 mg, oral, Daily, First dose on Sat03/04/19 at 1545 Given 03/08/2019 8:46 AM ASSISTANT CURATOR 5 mg Given 03/07/2019 8:54 AM CDT 5 mg Given 03/06/2019 9:17 AM CDT 5 mg metFORMIN (GLUCOPHAGE) tablet 500 mg 500 mg, oral, 2 times daily with meals (bkfst, dinner), First dose on Sat03/06/19 at 1800, Take with food Given 03/08/2019 8:48 AM ASSISTANT CURATOR 500 mg Given 03/07/2019 5:32 PM CDT [...] otherwise manipulate tablet/capsule. Given 03/08/2019 4:28 AM ASSISTANT CURATOR 40 mEq prochlorperazine (COMPAZINE) injection 10 mg [...] type and size. Given 03/08/2019 4:27 AM ASSISTANT CURATOR 10 mL Given 03/07/2019 10:10 PM CDT [...] may contain times in both CDT and ASSISTANT CURATOR. Scheduled Medication Order 03/06/2019 03/07/2019 03/08/2019 atorvastatin [...] RN)2210 (Given - Provider: Amna Foreman, RN) 8830 (Given - Provider: Amna Foreman, RN) PRN [...] Call MD for each episode of hypoglycemia. REPAIR ELECTRIC MOTOR ASSEMBLER STATES GLUTOSE-15 CONTAINS GLUCOSE 40% W/W (50% [...] Call MD for each episode of hypoglycemia. REPAIR ELECTRIC MOTOR ASSEMBLER STATES GLUTOSE-15 CONTAINS GLUCOSE 40% W/W (50% [...] SERVICES 1 03/06/20 19 IP CONSULT TO OIL FIELD OPERATOR 1 9 IV Count Last Ordered Date First Orde red Date SALINE LOCK IV 1 03/02/2019 ADT Patient Update Count Last Ordered Date Firs t Ordered Date ED IP DECISION TO ADMIT 1 03/03/[address] IN ED OBSERVATION 1 03/02/2019 documented in this encounter Care Teams Mat Cleaning Machine Operator Relationship Specialty Start Date End Date Etelvina Del Cid MD [address] [place] [address] [address] PCP - General 08/14/16 03/10/19 documented as of this encounter
--- OUTSIDE RECORDS SUMMARY | 2024-05-10 20:23 | XMS_ITS | Encounter Summary ---
Author Organization [facility] Healthcare Address [address] [place] [address] Care Team Providers Care School Teacher Name Role Phone Etelvina Del Cid MD Primary Care Provider + Encounter Details Date Type Department Care Team (Late st Contact Info) Description 04/24/2018 Orders Only Radiology [address] [place] [address] Pinky Corona [address] [facility] [address] [place] [address] Social History Tobacco Use Types Packs/Day Years Used Date Smoking Tobacco: Never Smokeless Tobacco: Never Alcohol Use Standard Drinks/Week Comments No 0 (1 standard drink = 0.6 oz pur e alcohol) Sex and Gender Information Value Date Recorded Sex Assigned at Not on file Legal 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
--- OUTSIDE RECORDS SUMMARY | 2024-05-10 20:23 | XMS_ITS | Encounter Summary ---
Author Organization 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
--- OUTSIDE RECORDS SUMMARY | 2024-05-10 20:23 | XMS_ITS | Encounter Summary ---
Author Organization [facility] Address [address] [place] [address] Phone Care Team Providers Care Stuntman Name Role Phone Etelvina Del Cid MD Primary Care Provider + Encounter Details Date Type Department Care Team (Late st Contact Info) Description 01/27/2019 Telephone [facility] Cardiology [address] [facility] Advanced Medicine [address] [place] [address] [place] [address] Jef Walton MD [address] [facility] [address] [place], [place] [id number] Social History Tobacco Use Types Packs/Day Years Used Date Smoking Tobacco: Never Smokeless Tobacco: Never Alcohol Use Standard Drinks/Week Comments No 0 (1 standard drink = 0.6 oz pur e alcohol) Sex and Gender Information Value Date Recorded Sex Assigned at Not on file Legal Sex Male 5:01 AM OUTSIDE INDUSTRIAL SALES REPRESENTATIVE Gender Identity Male 12/18/2017 12:38 PM CDT [...] documented as of this encounter Care Teams Stuntman Relationship Specialty Start Date End Date Etelvina Del Cid MD [address] [place] [address] [place] [address] PCP - General 08/14/16 03/10/19 documented as of this encounter
== END 2024-05-03 19:32 | disposition home or self-care (01) ==
PROVIDERS: Emergency Medicine; Emergency Provider Physician Assistant
DX: B34.9 Viral infection, unspecified (principal); I25.10 Atherosclerotic heart disease of native coronary artery without angina pectoris; I10 Essential (primary) hypertension; E11.9 Type 2 diabetes mellitus without complications; Z20.822 Contact with and (suspected) exposure to COVID-19
CPT/HCPCS: 36415; 71046; 80053; 83690; 84484; 85025; 85610; 85730; 87637; 93005; 96361; 96365; 96375; 99284; A9270; J1200; J1885; J2405; J2765; J3475; J7030

== ENCOUNTER 2024-05-07 07:32 | Emergency (ER) | payer OTHER, SELFPAY ==
--- NOTE | ~2024-05-07 | CT_ITS ---
CLINICAL INDICATION: Bilateral flank pain COMPARISON: 11/14/2022. TECHNIQUE: Multiple contiguous axial images of the abdomen and pelvis were performed following the ad ministration of intravenous contrast The dose-length product (DLP) was 1721.03 mGy-cm. Automated exposure control and iterative reconstruction technique were employed. FINDINGS/OBSERVATIONS: Visualized lower thorax: The bilateral lung bases are clear. The heart is of normal size, without pericardial effusion. Liver: The liver demonstrates homogeneous enhancement and is enlarged measuring 30 cm in longitudinal dimens ion. Gallbladder and biliary system: The gallbladder is only minimally distended, and otherwise unremarkable. Pancreas: The pancreas enhances homogeneously without ductal dilatation. Spleen: The spleen demonstrates homogeneous enhancement and is not enlarged measuring 20 cm in longitudinal d imension. Kidneys: The bilateral kidneys are unremarkable, without hydronephrosis or renal calculi. Adrenal glands: Unremarkable. Gastrointestinal tract: Colonic diverticulosis without surrounding inflammatory change. Fecal stasis within the colon. Appendix: The air-filled appendix is of normal caliber (axial series, images 103 - 133) Vasculature: Unremarkable. Lymph nodes: No pathologically enlarged or morphologically suspicious lymph nodes within the retroperitoneum or at the root of the mesentery. Pelvic structures: The bladder is only minimally distended, and otherwise unremarkable. The prostate gland is not enlarged. Body wall and musculoskeletal: Redemonstration of degenerative disease at the level of L5/S1 with grade 1 retrolisthesis. IMPRESSION: Hepatosplenomegaly, unchanged. Otherwise, largely unremarkable evaluation of the abdomen and pelvis, as detailed above. Reviewed, dictated and finalized at location A. BUILDER IMPRESSION: Hepatosplenomegaly, unchanged. Otherwise, largely unremarkable evaluation of the abdomen and pelvis, as detail ed above.
[2024-05-07 07:39] VITALS: BP 152/85; PULSE 80; RESP 18; TEMP 36.9; O2SAT 99
--- NOTE | 2024-05-07 09:50 | ED_ITS ---
HPI - General Adult General Chief complaint: Unspecified Stated complaint: MULT C/O Time Seen by Provider: 05/07/24 09:06 History of Present Illness HPI narrative: 28-year-old male with history of insulin-dependent diabetes, CAD, hypertension presents to the emergency department for bilateral flank pain that radiates into his abdomen for 1 day. Patient states pain is better when he sleeps. Cannot identify any aggravating factors. Denies nausea vomiting, fever, dysuria or hematuria. No history of kidney stones. States blood glucose has been well controlled at home. Related Data Home Medications ?Medication ?Instructions ?Recorded ?Confirmed ?Last Taken ?Type carvedilol 25 mg tablet 25 mg PO BID 05/22/19 09/10/23 Unknown History indapamide 2.5 mg tablet 2.5 mg PO DAILY 05/22/19 09/10/23 Unknown History insulin regular hum U-500 conc 500 1 unit subcut DIRECTED 05/22/19 09/10/23 Unknown History unit/mL(3 mL) subcut pen (Humulin R U-500 (Conc) Insulin Kwikpen) lisinopril 5 mg tablet 5 mg PO DAILY 05/22/19 09/10/23 Unknown History duloxetine 60 mg capsule,delayed 60 mg PO DAILY 06/06/21 09/10/23 Unknown History release Allergies Allergy/AdvReac Type Severity Reaction Status Date / Time No Known Allergies Allergy Verified 05/07/24 07:42 Review of Systems 2 Review of Systems: All systems reviewed & are unremarkable except as noted in HPI and below PMFSH Past Medical History Medical History (Updated 05/07/24 @ 11:26 by Kaylie Quach PA-C) Diabetes HTN (hypertension) CAD (coronary artery disease) MVP (mitral valve prolapse) Social History Social History Smoking status: Never smoker Alcohol intake: current Alcohol use details: occasional Substance use: never Exam 2 Narrative: GENERAL: Well-appearing, well-nourished, and in no acute distress. HEAD: Normocephalic, atraumatic. EYES: EOMI. ENT: Nares clear, no rhinorrhea or epistaxis. Mucous membranes moist. NECK: Supple. CHEST: Clear to auscultation. No respiratory distress. HEART: Regular rate and rhythm. No murmur heard. Normal peripheral pulses. ABDOMEN: Normoactive bowel sounds. Abdomen soft with tenderness to the right upper quadrant left upper quadrant. No rebound or rigidity present no CVA tenderness EXTREMITIES: Normal range of motion. No edema. SKIN: Warm, dry, no rash. NEURO: No focal deficits. Alert and oriented x3 Course Vital Signs Vital signs: Vital Signs Temperature 98.5 F 05/07/24 07:39 Pulse Rate 80 05/07/24 07:39 Respiratory Rate 18 05/07/24 07:39 Blood Pressure 152/85 H 05/07/24 07:39 Pulse Oximetry 99 05/07/24 07:39 Oxygen Delivery Room Air 05/07/24 07:39 Temperature 98.5 F 05/07/24 07:39 Pulse Rate 80 05/07/24 07:39 Respiratory Rate 18 05/07/24 07:39 Blood Pressure 152/85 H 05/07/24 07:39 Pulse Oximetry 99 05/07/24 07:39 Oxygen Delivery Room Air 05/07/24 07:39 Medical Decision Making [facility] Narrative Medical decision making narrative: 28-year-old male presents emergency department for bilateral flank pain that radiates into his abdomen for 1 day. See HPI for further history. Triage vitals with elevated blood pressure, otherwise unremarkable. He is afebrile and nontoxic appearing. Exam is significant for the above. Lab work shows no leukocytosis, no anemia. Chemistries are largely unremarkable other than chronic elevations in ALT. Urinalysis without infection or hematuria. CT abdomen pelvis shows hepatosplenomegaly that is unchanged from prior exams, otherwise unremarkable. Patient was updated on workup. He received Toradol with some improvement. Advised Tylenol ibuprofen [id number] as needed for pain follow-up with PCP. Return precautions discussed. He is agreeable with the plan verbalized understanding. Discharged in stable condition. Vital Signs Vital Signs: Vital Signs Temperature 98.5 F 05/07/24 07:39 Pulse Rate 80 05/07/24 07:39 Respiratory Rate 18 05/07/24 07:39 Blood Pressure 152/85 H 05/07/24 07:39 Pulse Oximetry 99 05/07/24 07:39 Oxygen Delivery Room Air 05/07/24 07:39 Temperature 98.5 F 05/07/24 07:39 Pulse Rate 80 05/07/24 07:39 Respiratory Rate 18 05/07/24 07:39 Blood Pressure 152/85 H 05/07/24 07:39 Pulse Oximetry 99 05/07/24 07:39 Oxygen Delivery Room Air 05/07/24 07:39 Lab Data 05/07/24 10:33 05/07/24 10:33 Labs: Lab Results 05/07/24 05/07/24 Range/Units 10:12 10:33 WBC 5.0 (4.5-10.0) K/mm3 RBC 4.70 (4.6-6.20) M/mm3 Hgb 14.1 (14.0-18.0) g/dL Hct 38.0 L (42.0-52.0) % MCV 80.9 (80-100) fl MCH 30.0 (26-34) pg MCHC 37.1 H (32-36) g/dl RDW 12.3 (11.5-14.5) % Plt Count 257 (150-375) k/mm3 MPV 9.2 (7.4-10.4) fl Immature Gran % (Auto) 0.4 (0-0.5) % Neut % (Auto) 58.3 (45.5-73.1) % Lymph % (Auto) 29.2 (18.3-44.2) % [place] % (Auto) 8.9 H (2.6-8.5) % Eos % (Auto) 2.8 (0-4.4) % Baso % (Auto) 0.4 (0.2-1.2) % Lymph # (Auto) 1.47 (0.9-3.2) K/mm3 [place] # (Auto) 0.5 (0.1-0.6) K/mm3 Eos # (Auto) 0.1 (0-0.3) K/mm3 Baso # (Auto) 0.0 (0.0-0.1) K/mm3 Abs Immat Gran (auto) 0.02 (0.00-0.031) K/mm3 Absolute Neuts (auto) 2.9 (1.3-6.7) K/mm3 Absolute Nucleated RBC 0.000 (0.0-0.012) K/mm3 Nucleated RBC % 0.0 (0.0-0.2) % Sodium 137 (137-145) mmol/L Potassium 3.6 (3.4-5.0) mmol/L Chloride 107 (98-107) mmol/L Carbon Dioxide 25 (22-30) mmol/L Anion Gap 5 (4-12) mmol/L BUN 15 (9-20) mg/dL Creatinine 0.80 (0.7-1.3) mg/dL Estim Creat Clear Calc 230 ml/min Estimated GFR > 60 (59 - ) Glucose 191 H (65-110) mg/dL Calcium 8.9 (8.4-10.2) mg/dL Total Bilirubin 0.6 (0.2-1.3) mg/dL AST 43 (17-59) U/L ALT 75 H (6-50) U/L Alkaline Phosphatase 92 (38-126) U/L Total Protein 7.0 (6.3-8.2) g/dL Albumin 3.9 (3.5-5.1) g/dL Lipase 91 (23-300) U/L Urine Color Yellow (Yellow) Urine Appearance Clear (Clear) Urine pH 5.5 (5.0-9.0) Ur Specific [place] 1.010 (1.001-1.035) Urine Protein Trace (Negative) mg/dL Urine Glucose (UA) Trace H (Negative) mg/dL Urine Ketones Negative (Negative) mg/dL Ur Blood (Man) Negative (Negative) Urine Nitrate Negative (Negative) Urine Bilirubin Negative (Negative) Urine Urobilinogen 0.2 (<2.0) mg/dL Leukocyte Esterase Rfl Trace H (Negative) BUDDY/UL Urine RBC 0-2 (0-2) /hpf Urine WBC 0-5 (0-3) /hpf Ur Squamous Epith Cells Occasional (Few) /hpf Urine Bacteria None seen /hpf Urine Casts 0-2 Discharge Plan Discharge Clinical Impression: Hepatosplenomegaly Abdominal pain Qualifiers: Abdominal location: generalized Qualified Code(s): R10.84 - Generalized abdominal pain Patient Disposition: Home, Self-Care Condition: Stable Instructions: Antibiotic Form, Abdominal Pain (ED) Additional Instructions: You were evaluated in the emergency department for abdominal pain and flank pain. Your workup here is unremarkable other than a large spleen and liver. Follow up with her primary care provider regarding this. Take Tylenol and ibuprofen as needed for pain as directed on the bottle. Return to the emergency department if you develop any changing or worsening pain, your unable to tolerate food or fluids, fever or other concerning symptoms. Patient Language: Turkish Prescriptions: No Action duloxetine 60 mg Capsule,Delayed Release(Dr/Ec) 60 mg PO DAILY clindamycin HCl 300 mg capsule 300 mg PO Q6H 7 Days Qty: 28 0RF carvedilol 25 mg Tablet 25 mg PO BID indapamide 2.5 mg Tablet 2.5 mg PO DAILY lisinopril 5 mg Tablet 5 mg PO DAILY Humulin R U-500 (Conc) Kwikpen 500 unit/mL (3 mL) Insulin Pen 1 unit SUBCUT DIRECTED ondansetron HCl 4 mg tablet 4 mg PO Q4H Qty: 10 0RF Rx Instructions: 1st dose 1-2 hr before radiation cephalexin 500 mg capsule 500 mg PO Q8H 7 Days Qty: 21 0RF clotrimazole 1 % cream 1 applic topical BID 56 Days Qty: 15 0RF Follow-up/Referrals: Miguel Angel Dudley MD [Physician] - UNKNOWN,DOCTOR [Primary Care Provider] -
[2024-05-07 10:10] VITALS: RESP 19
[2024-05-07 10:24] LABS: Add Urine Microscopic? YES; Appearance Urine Clear (Clear); Bacteria Urine None Seen /hpf; Bilirubin Urine Negative (Negative); Blood Urine Negative (Negative); Color Urine Yellow (Yellow); Glucose Urine UA Trace mg/dL (Negative); Ketones Urine Negative (Negative); Leukocyte Esterase Ur Trace LEU/UL (Negative); Nitrate Urine Negative (Negative); Non Pathogenic Casts 0-2; Protein Urine Trace mg/dL (Negative); RBC Urine 0-2 /hpf (0-2); Squamous Epithelial Cell Urine Occasional /hpf (Few); Urobilinogen Urine 0.2 mg/dL (<2.0); WBC Urine 0-5 /hpf (0-3); pH Urine 5.5 (5.0-9.0)
[2024-05-07] MEDS: KETOROLAC 15 MG/ML VIAL (*BKC) IV PUSH (10:39)
[2024-05-07 10:40] LABS: Basophils Percent Auto 0.4 % (0.2-1.2); Eosinophils Absolute Auto 0.1 K/mm3 (0-0.3); Eosinophils Percent Auto 2.8 % (0-4.4); Hemoglobin 14.1 g/dL (14.0-18.0); Immature Granulocyte Absolute 0.02 K/mm3 (0.00-0.031); Immature Granulocyte Percent A 0.4 % (0-0.5); Lymphocytes Absolute Auto 1.47 K/mm3 (0.9-3.2); Lymphocytes Percent Auto 29.2 % (18.3-44.2); Mean Corpuscular HGB Conc 37.1 g/dl (32-36); Mean Corpuscular Volume 80.9 fl (80-100); Mean Platelet Volume 9.2 fl (7.4-10.4); Monocytes Absolute Auto 0.5 K/mm3 (0.1-0.6); Monocytes Percent Auto 8.9 % (2.6-8.5); Neutrophils Absolute Auto 2.9 K/mm3 (1.3-6.7); Neutrophils Percent Auto 58.3 % (45.5-73.1); Platelet Count Result 257 k/mm3 (150-375); Red Cell Distribution Width 12.3 % (11.5-14.5)
[2024-05-07 10:52] LABS: Alanine Aminotransferase 75 U/L (6-50); Albumin Level 3.9 g/dL (3.5-5.1); Alkaline Phosphatase 92 U/L (38-126); Anion Gap 5 mmol/L (4-12); Aspartate Amino Transferase 43 U/L (17-59); Bilirubin,Total 0.6 mg/dL (0.2-1.3); Blood Urea Nitrogen 15 mg/dL (9-20); Calcium 8.9 mg/dL (8.4-10.2); Carbon Dioxide 25 mmol/L (22-30); Chloride 107 mmol/L (98-107); Estimated CRCL calculation 230 ml/min; Estimated Glomerular Filt Rate > 60; Glucose 191 mg/dL (65-110); Lipase 91 U/L (23-300); Potassium 3.6 mmol/L (3.4-5.0); Sodium 137 mmol/L (137-145)
[2024-05-07 11:56] VITALS: BP 151/78; PULSE 72; RESP 16; TEMP 36.4; O2SAT 100
--- OUTSIDE RECORDS SUMMARY | 2024-05-14 03:24 | XMS_ITS | Encounter Summary ---
Author Organization [facility] Address [facility] [facility] [place] [address] [place] [address] Care Team Providers Care Inspector Motor Vehicles Name Role Phone None, Provider Primary Care Provider Unavaila ble Reason for Referral * Imaging (Emergency) - Closed Specialty Diagnoses / Procedures Referred By Contac t Referred To Contact RADIOLOGY Procedures CT CERV SPINE WO CON Lydia Ortiz NP Referral ID Status Reason Start Date Expiration Date Visits Re quested Visits Authorized [id number] Closed 11/29/2018 12/31/2019 1 1 * Imaging (Emergency) - Closed Specialty Diagnoses / Procedures Referred By Contac t Referred To Contact RADIOLOGY Procedures CT HEAD WO CON Lydia Ortiz NP Referral ID Status Reason Start Date Expiration Date Visits Re quested Visits Authorized [id number] Closed 11/29/2018 12/31/2019 1 1 Reason for Visit * Reason Comments Syncope Neck Pain Encounter Details Date Type Department Care Team (Late st Contact Info) Description 11/29/2018 7:21 PM CDT - 11/29/2018 10:09 PM CDT Emergency [facility] [place] [address] Syncope; Neck Pain Discharge Disposition: Home or [...] sent through Care Everywhere. * Syncope (Fainting) (Bulgarian) documented in this encounter ED Notes * [...] 11/29/18 ECG [address] [facility] [address] Test Date: 2018-11-29 Pat Name: CRISTI VELEZ Department: Room: [id number] Gender: Male Rag Willow Operator: roberta : 1995 Requested By: LYDIA ORTIZ Order Number: [id number] Reading MD: Measurements Intervals [place] Rate: 89 P: 31 OK: 184 QRS: 20 QRSD: 113 T: 12 [...] CLEAN CATCH COLOR YELLOW TRANSPARENCY CLEAR Specific [place] (U) 1.023 1.001 - 1.030 U PH [...] SPINE WO CON Final Result by User, [id number] (11/29 2124) Examination: CT Cervical Spine Without [...] HEAD WO CON Final Result by User, [id number] (11/29 2122) EXAMINATION: CT of the head [...] PM CDT) 11/29/2018 9:14 PM CDT Narrative [facility] - 11/30/2018 8:20 AM CDT ?[place] ? [address] [place] ? Test Date: ?2018-11-29 Pat Name: ? CRISTI VELEZ ? Department: ? Room: ? [id number] Gender: ? Male ? Rag Willow Operator: ?? ev : ?1995 ? Requested By: LYDIA BONDS Order Number: [id number] ? Reading MD: ?? Blair Muller ? Measurements Intervals ?[place] ? Rate: ? 89 ? P: ?31 OK: ? 184 ?QRS: ?20 QRSD: ? 113 ?T: ?12 QT: ? 367 ? QTc: ?447 ? Interpretive Statements SINUS RHYTHM IVCD. INFERIOR MYOCARDIAL INFARCTION, PROBABLY OLD No previous ECG available for comparison No ischemic changes CRITICAL ALERT ISSUED ON 11-29-2018 21:21:55 Procedure Note Blair Muller MD - 11/30/[address] [facility] [facility] Test Date: 2018-11-29 Pat Name: CRISTI VELEZ Department: Room: [id number] Gender: Male Rag Willow Operator: ev : 1995 Requested By: SONU Order Number: [id number] Reading MD: Blair Muller Measurements Intervals [place] Rate: 89 P: 31 OK: 184 QRS: 20 QRSD: 113 T: 12 QT: 367 QTc: 447 Interpretive Statements SINUS RHYTHM IVCD. INFERIOR MYOCARDIAL INFARCTION, PROBABLY OLD No previous ECG available for comparison No ischemic changes CRITICAL ALERT ISSUED ON 11-29-2018 21:21:55 Lydia Ortiz EXCHANGE SPECIALIST ECG ORDERABLES Final Re sult [facility] * CT CERV SPINE WO CON [...] MD, 11/29/2018 9:22 PM us Lydia Ortiz EXCHANGE SPECIALIST CT Final Re sult * CT HEAD [...] Ardon MD, 11/29/2018 9:19 PM Lydia Ortiz EXCHANGE SPECIALIST CT Final Re sult * TROPONIN, QUANT (11/29/2018 8:38 PM CDT) TROPONIN I <0.015 <0.045 ng/mL. 11/29/2018 9:21 PM CDT [facility] Comment: HIGH DOSES OF BIOTIN MAY INTERFERE WITH THIS TEST RESULT. CORRELATION TO CLINICAL HISTORY AND PRESENTATION RECOMMENDED. 11/29/2018 8:38 PM CDT Lydia Ortiz EXCHANGE SPECIALIST LABORATORY Final Re sult [facility] [address] [place] [address], [place] [phone] * URINALYSIS [place] REFLEX TO CULTURE (11/29/2018 8:38 PM CDT) SPECIMEN TYPE URINE CLEAN CATCH 11/29/2018 8:31 PM CDT [facility] COLOR (U) YELLOW 11/29/2018 9:01 PM CDT [facility] TRANSPARENCY CLEAR 11/29/2018 9:01 PM CDT [facility] SPECIFIC GRAVITY (U) 1.023 1.001 - 1.030 11/29/2018 9:01 PM CDT [facility] U PH 6.0 5.0 - 9.0 11/29/2018 9:01 PM CDT [facility] LEUKOCYTES (U) NEGATIVE NEGATIVE 11/29/2018 9:01 PM CDT [facility] NITRITES NEGATIVE NEGATIVE 11/29/2018 9:01 PM CDT [facility] PROTEIN (U) NEGATIVE <30 MG/DL 11/29/2018 9:01 PM CDT [facility] URINE GLUCOSE NEGATIVE NEGATIVE MG/DL 11/29/2018 9:01 PM CDT [facility] KETONES MG/DL (U) NEGATIVE NEGATIVE MG/DL 11/29/2018 9:01 PM CDT [facility] UROBILINOGEN NEGATIVE NEGATIVE MG/DL 11/29/2018 9:01 PM CDT [facility] BILIRUBIN (U) NEGATIVE NEGATIVE MG/DL 11/29/2018 9:01 PM CDT [facility] BLOOD (U) NEGATIVE NEGATIVE 11/29/2018 9:01 PM CDT [facility] CULTURE & SENSITIVITY INDICATED? CULTURE IS NOT INDICATED 11/29/2018 9:01 PM CDT [facility] SQUAMOUS EPITHELIALS MODERATE /LPF 11/29/2018 9:01 PM CDT [facility] WBC/HPF <1 <6 /HPF 11/29/2018 9:01 PM CDT [facility] RBC/HPF <1 <6 /HPF 11/29/2018 9:01 PM CDT [facility] URINE SPECIMEN OBTAINED BY CLEAN CATCH PROCEDURE / Unknown 11/29/2018 8:38 PM CDT Lydia Ortiz EXCHANGE SPECIALIST URINE ORDERABLES Final R esult [facility] [address] [place] [address], [place] [phone] * (ABNORMAL) CK (CPK) (11/29/2018 8:38 PM CDT) CPK 383(H) 35 - 232 U/L 11/29/2018 9:15 PM CDT [facility] 11/29/2018 8:38 PM CDT us Lydia SunshineBonds EXCHANGE SPECIALIST LABORATORY Final Re sult [facility] [address] [place] [address], [place] [phone] * (ABNORMAL) COMPREHENSIVE METABOLIC PANEL (11/29/2018 8:38 PM CDT) Pathologist [facility] GLUCOSE 130(H) 70 - 99 MG/DL 11/29/2018 9:15 PM CDT [facility] BUN 12 7 - 18 MG/DL 11/29/2018 9:15 PM CDT [facility] CREATININE S/P/B 1.24 0.7 - 1.3 MG/DL 11/29/2018 9:15 PM CDT [facility] SODIUM S/P/B 142 136 - 145 MMOL/L 11/29/2018 9:15 PM CDT [facility] POTASSIUM S/P/B 4.0 3.5 - 5.1 MMOL/L 11/29/2018 9:15 PM CDT [facility] CHLORIDE S/P/B 110(H) 100 - 108 MMOL/L 11/29/2018 9:15 PM CDT [facility] CO2 24.3 21 - 32 MMOL/L 11/29/2018 9:15 PM CDT [facility] CALCIUM S/P/B 8.9 8.5 - 10.1 MG/DL 11/29/2018 9:15 PM CDT [facility] BILIRUBIN TOTAL S/P/B 0.4 0.2 - 1.2 MG/DL 11/29/2018 9:15 PM CDT [facility] TOTAL PROTEIN S/P/B 7.8 6.4 - 8.2 G/DL 11/29/2018 9:15 PM CDT [facility] ALBUMIN S/P/B 4.0 3.4 - 5.0 G/DL 11/29/2018 9:15 PM CDT [facility] AST 61(H) 15 - 37 U/L 11/29/2018 9:15 PM CDT [facility] ALT 121(H) 16 - 60 U/L 11/29/2018 9:15 PM CDT [facility] ALKALINE PHOSPHATASE S/P/B 85 50 - 136 U/L 11/29/2018 9:15 PM CDT [facility] ANION GAP 7.7 5 - 15 MMOL/L 11/29/2018 9:15 PM CDT [facility] BUN CREATININE RATIO 9.7 6 - 26 11/29/2018 9:15 PM T [facility] A/G RATIO 1.1 1.0 - 2.0 RATIO 11/29/2018 9:15 PM CDT [facility] EGFR NON-AFR. AMER. 83(L) >90 ML/MIN/1.7 3 M2 11/29/2018 9:15 PM T [facility] EGFR AFR. AMER. >90 >90 ML/MIN/1.7 3 M2 11/29/2018 9:15 PM T [facility] Comment: NOTE: eGFR is not calculated for patients <18 years of age. This is an estimated GFR (CKD EPI) and should not be used for calculating drug doses. 11/29/2018 8:38 PM CDT us Lydia Ortiz NP LABORATORY Final Re sult [facility] [address] [place] [address], [place] [phone] * CBC W/DIFF AUTOMATED (11/29/2018 8:38 PM CDT) WBC 6.1 4.5 - 13.0 x10'3/uL 11/29/2018 9:01 PM CDT [facility] RBC 5.25 4.70 - 6.10 x10'6/uL 11/29/2018 9:01 PM CDT [facility] HGB 15.1 14.0 - 18.0 G/DL 11/29/2018 9:01 PM CDT [facility] HCT 44.3 43.0 - 54.0 % 11/29/2018 9:01 PM CDT [facility] MCV 84.4 80.0 - 94.0 FL 11/29/2018 9:01 PM CDT [facility] MCH 28.8 27.0 - 31.0 PG 11/29/2018 9:01 PM CDT [facility] MCHC 34.1 32.0 - 36.0 G/DL 11/29/2018 9:01 PM CDT [facility] RDW 12.2 11.5 - 14.5 % 11/29/2018 9:01 PM CDT [facility] PLT 307 130 - 400 x10'3/uL 11/29/2018 9:01 PM CDT [facility] MPV 9.9 9.3 - 12.2 FL 11/29/2018 9:01 PM CDT [facility] DIFFERENTIAL TYPE AUTOMATED DIFFERENTIAL 11/29/2018 9:01 PM CDT [facility] NEUTROPHILS % 57.9 % 11/29/2018 9:01 PM CDT [facility] LYMPHOCYTES % 30.0 % 11/29/2018 9:01 PM CDT [facility] MONOCYTES % 7.9 % 11/29/2018 9:01 PM CDT [facility] EOSINOPHILS 3.5 % 11/29/2018 9:01 PM CDT [facility] BASOPHILS 0.5 % 11/29/2018 9:01 PM CDT [facility] IMMATURE GRANS % 0.2 % 11/30/19 19 9:01 PM CDT [facility] ABS. NEUTROPHILS TOTAL 3.52 1.80 - 8.00 x10'3/uL 11/29/2018 9:01 PM CDT [facility] ABS. LYMPHOCYTES 1.82 1.20 - 5.20 x10'3/uL 11/29/2018 9:01 PM CDT [facility] ABS. MONOCYTES 0.48 0.30 - 0.82 x10'3/uL 11/29/2018 9:01 PM CDT [facility] ABS. EOSINOPHILS 0.21 0.04 - 0.54 x10'3/uL 11/29/2018 9:01 PM CDT [facility] ABS. BASOPHILS 0.03 0.01 - 0.08 x10'3/uL 11/29/2018 9:01 PM CDT [facility] ABS. IMMATURE GRANULOCYTES 0.01 0.00 - 0.49 x10'3/uL 11/29/2018 9:01 PM CDT [facility] 11/29/2018 8:38 PM CDT us Lydia Ortiz EXCHANGE SPECIALIST LABORATORY Final Re sult [facility] [address] [place] [address], documented in this encounter Visit Diagnoses Diagnosis [...] (New Bag - Prov ider: Viki Snider RN)132 (Infusion Stop Time - Provider: Viki Snider RN) documented in this encounter Care Teams Inspector Motor Vehicles Relationship Specialty Start Date End Date None, Provider, PCP - General 11/29/18 documented as of this encounter
--- OUTSIDE RECORDS SUMMARY | 2024-05-14 03:24 | XMS_ITS | Referral Summary ---
Author Organization [facility] [employer] Address [address] [place] [address] Care Team Providers Care Commodities Broker Name Role Phone Unavailable Primary Care Provider Unavailabl e Source Comments [facility] [employer],non-owned Affiliates and Associated Physician Practices is amultiple site organization consisting of ambulatory clinics and hospital sitesin [place], [place] and [place]. This disclosure is being madepursuant to the Care Everywhere program and may not contain all information available regarding this patient. Last updated 18.[facility] [employer] Allergies No known active allergies Medications * [...] CDT Plan of Treatment Not on file [id number] N Workers Comp Employer 1995 [address] [place] [address] Geraldo Velez Workers Comp Self 1995 [address] [place] [address]
--- OUTSIDE RECORDS SUMMARY | 2024-05-14 03:24 | XMS_ITS | Patient Health Summary ---
Author Organization [facility] [employer] Address [address] [place] [address] Care Team Providers Care Nursery Worker Name Role Phone Unavailable Primary Care Provider Unavailabl e Note from [facility],non-owned Affiliates and Associated Physician Practices is amultiple site organization consisting of ambulatory clinics and hospital sitesin [place], [place], [place] and [place]. This disclosure is being madepursuant to the Care Everywhere program and may not contain all information available regarding this patient. Last updated 18.[facility] [employer] Allergies No known active allergies Medications * [...] were also obtained. All CT scans at [facility] are performed using dose optimization techniques as [...] were also obtained. All CT scans at [facility] are performed using dose optimization techniques as [...] brain was performed. All CT scans at [facility] are performed using dose optimization techniques as [...] brain was performed. All CT scans at [facility] are performed using dose optimization techniques as [...] - 106 mg/dL 10/22/2022 2:32 PM CDT -[facility] Specimen Type Cap Fingerstick 2022 2:32 PM CDT -[facility] Blood BLOOD SPECIMEN / Unknown 10/22/2022 2:25 PM CDT 10/22/2022 2:32 PM CDT Provider Unknown LAB - POINT OF CARE ORDERABLES [facility] [address] [place] [address]
--- OUTSIDE RECORDS SUMMARY | 2024-05-14 03:24 | XMS_ITS | Encounter Summary ---
Author Organization [facility] Address [address] [place] [address] [place] [address] Care Team Providers Care Key Account Coordinator Name Role Phone Unavailable Primary Care Provider Unavailabl e Encounter Details Date Type Department Care Team (Late st Contact Info) Description 09/18/2013 Abstract [facility] Emergency Room [address] [place] [address] Dequan Taylor Jr., MD [facility] [address] [address] Social History Tobacco Use [...]
--- OUTSIDE RECORDS SUMMARY | 2024-05-14 03:24 | XMS_ITS | Clinical Summary ---
Author Organization [facility] [employer] Address [address] [place] [address] Care Team Providers Care Manager Marketing Communication Name Role Phone Unavailable Primary Care Provider Unavailabl e Source Comments [facility] [employer],non-owned Affiliates and Associated Physician Practices is amultiple site organization consisting of ambulatory clinics and hospital sitesin [place], [place], [place] and [place]. This disclosure is being madepursuant to the Care Everywhere program and may not contain all information available regarding this patient. Last updated 18.[employer] Allergies No known active allergies Medications * [...] 3 - 19+ 3-dose series) 2016 COVID-19 VACCINE (3 - 2023-2 5 season) 2024 05/25/2021, 05/04/2021 INFLUENZA VACCINE (#1) 2024 , 03/06/2019, 02/15/2015 DEPRESSION SCREENING 05/06/2024 ZOSTER VACCINE (1 of 2) 12/29/2047 HIB VACCINE Aged Out No longer eligi ble based on patient's age to complete this topic MENINGOCOCCAL VACCINE Aged Out No winnie liliya eligible based on patient's age to complete this topic PNEUMOCOCCAL VACCINE Aged Out No long er eligible based on patient's age to complete this topic [id number] N Workers Comp Employer 1995 [address] [place] [address] Geraldo Velez Workers Comp Self 1995 [address] [facility] [place] [address]
--- OUTSIDE RECORDS SUMMARY | 2024-05-14 03:24 | XMS_ITS | Clinical Summary ---
Author Organization [facility] Address [facility] [place] [address] [place] [address] Care Team Providers Care Parking Analyst Name Role Phone None, Provider MD Primary [...] Insurance [employer] Care Teams Parking Analyst Relationship Specialty Start Date End Date None, Provider, PCP - General 11/29/18
--- OUTSIDE RECORDS SUMMARY | 2024-05-14 03:24 | XMS_ITS | CONTINUITY OF CARE DOCUMENT ---
Author Name frankie david Address Unknown Organization [facility] Address [address] [place] [address] [address] [place] [address] Phone [phone] Care Team Providers Care Medical Operations Supervisor Name Role Phone Daniel CROWE, Татьяна Unavailable [phone] Татьяна Sanchez MD Unavailable [phone] DAHLIA CROWE, AKANKSHA Angel Unavailable [phone] INSURANCE PROVIDERS Payer name Policy type / Coverage type Phyllis red libertarian ID [id number] Blue [facility] SELF PAY
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
--- OUTSIDE RECORDS SUMMARY | 2024-05-14 03:25 | XMS_ITS | Encounter Summary ---
Author Organization [facility] [place] [facility] Address [address] [place] [address] Phone Care Team Providers Care Core Finisher Name Role Phone Mariana Monique MD Unavailable [phone] [facility] Primary Care Provider Reason for Visit * Reason Onset Date Comments appointment and medication 03/10/2024 Encounter Details Date Type Department Care Team (Late st Contact Info) Description 03/10/2024 Telephone [facility] Endocrinology Metabolism and Lipid [address] [facility] [facility] [address] [place] [address] Denia Albert RN appointment and [...] often do you attend chur ch or restorationism services? 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 Not on file Not on file documented as of this encounter Miscellaneous Notes * Telephone Encounter - Denia Albert RN - 03/10/2024 5:35 PM NETEZZA DEVELOPER [employer] message sent to the patient to schedule a return appointment before medications are refilled or PA is being processed since it has been a year since his last visit [facility] contacted and told that the PA will not be processed until the patient is seen He has no showed 01/09/2024 09/26/2023 06/06/2023 03/14/2023 Cancelled 11/21/2023 ZZA DEVELOPER documented in this encounter Plan of Treatment Not on file documented as of this encounter Visit Diagnoses Not on filedocumented in this encounter Care Teams Core Finisher Relationship Specialty Start Date End Date Keila Jimenez MD [address] [place] [address] PCP - General 10/29/21 Mariana Monique MD [address] [place] [address] Referring Physician Internal Medicine 01/17/20 documented as of this encounter
--- OUTSIDE RECORDS SUMMARY | 2024-05-14 03:25 | XMS_ITS | Encounter Summary ---
Author Organization [facility] Healthcare Address [address] [place] [address] Care Team Providers Care Machine Edge Bander Name Role Phone Mariana Monique MD Unavailable [facility] Primary Care Provider Encounter Details Date Type Department Care Team (Late st Contact Info) Description 05/03/2023 11:45 AM PIPE SMOKING MACHINE OPERATOR Lab [facility] Advanced Medicine [facility] Advanced Medicine ([facility]) [address] [place] [phone] Screening for tuberculosis Social History Tobacco Use [...] often do you attend chur ch or religion services? 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 T-SPOT.TB Panel A Spot Count 0 [facility] T-SPOT.TB Panel B Spot Count 0 [facility] T-SPOT.TB Negative Control Passed [facility] T-SPOT.TB Positive Control Passed [facility] Comment: Test Performed at: [facility] [place], [place] ??[address] ? GIBSON FIELDS MD,PHD Blood 05/03/2023 11:5 3 AM PIPE SMOKING MACHINE OPERATOR 05/03/2023 12:12 PM PIPE SMOKING MACHINE OPERATOR us Charles Avalos MD LAB MICROBIOLOGY - GENERAL OR DERABLES Final Result [facility] [place] [address] documented in this encounter Visit Diagnoses Diagnosis Screening for tuberculosis Screening examination for pulmonary tuberculosis documented in this encounter Care Teams Machine Edge Bander Relationship Specialty Start Date End Date Keila Jimenez MD [address] [place] [address] PCP - General 10/29/21 Mariana Monique MD [address] [place] [address] Referring Physician Internal Medicine 01/17/20 documented as of this encounter
--- OUTSIDE RECORDS SUMMARY | 2024-05-14 03:25 | XMS_ITS | Encounter Summary ---
Author Organization [facility] Address [address] [place] [address] Phone Care Team Providers Care Transitions Manager Name Role Phone Mariana Monique MD Unavailable [phone] [facility] Primary Care Provider Reason for Visit * Reason Onset Date Comments Prior Auth 03/10/2024 Encounter Details Date Type Department Care Team (Late st Contact Info) Description 03/10/2024 Telephone [facility] Scheduling [address] [place] [address] Peter Styles Jr., MD [address] [place] [address] Prior Auth Social History Tobacco Use Types [...] often do you attend chur ch or voodoo services? 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 RAL OFFICE REPAIRER SUPERVISOR documented in this encounter Plan of Treatment Not on file documented as of this encounter Visit Diagnoses Not on filedocumented in this encounter Care Teams Transitions Manager Relationship Specialty Start Date End Date Keila Jimenez MD [address] [place] [address] PCP - General 10/29/21 Mariana Monique MD [address] [place] [address] Referring Physician Internal Medicine 01/17/20 documented as of this encounter
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
--- OUTSIDE RECORDS SUMMARY | 2024-05-14 03:25 | XMS_ITS | Clinical Summary ---
Author Organization [facility] Address [address] [place] [address] Phone Care Team Providers Care Cosmetics And Toiletries Salesperson Name Role Phone Unavailable Primary Care Provider [...]
--- OUTSIDE RECORDS SUMMARY | 2024-05-14 03:25 | XMS_ITS | Encounter Summary ---
Author Organization [facility] Address [address] [place] [address] Phone Care Team Providers Care Stock Pitcher Name Role Phone Mariana Monique MD Unavailable [phone] [facility] Primary Care Provider Reason for Visit * Reason Onset Date Comments Prior auths 03/25/2023 Encounter Details Date Type Department Care Team (Late st Contact Info) Description 03/25/2023 Telephone [facility] Endocrinology Metabolism and Lipid [address] [facility] [address] [place] [address] [place] [address] Denia Albert RN Prior auths [...] often do you attend chur ch or restoration services? 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 Not on file Not on file documented as of this encounter Ordered Prescriptions Prescription Sig Dispense Quantity Refills Last Filled Start Date End Date insulin aspart (NovoLOG) 100 unit/mL (3 mL) pen for injectionIndicatio ns:Type 2 diabetes mellitus without complication, with long-term current use of insulin ([facility] ([facility]) Inject 36 Units SQ under the skin 3 (three) times a day before meals 105 mL 1 03/25/2023 11/12/2023 documented in this encounter Miscellaneous Notes * Telephone Encounter - Denia Albert RN - 03/26/2023 9:30 AM REGULATORY SCIENTIST Genability message sent to the patient on the Mounjaro and Dexcom PA approval LATORY SCIENTIST * Telephone Encounter - Jenifer Tamez - 03/25/2023 2:38 PM CST Please see previous encounter, these have already been approved LATORY SCIENTIST * Telephone Encounter - Denia Albert RN - 03/25/2023 2:12 PM REGULATORY SCIENTIST Images from the original note were not included. Multiple PA's #1 Dexcom G7 #2 Mounjaro #3 Changed Humalog insulin to Novolog due to Humalog not being covered under the patient's insurance formulary (done) LATORY SCIENTIST LATORY SCIENTIST documented in this encounter Plan of Treatment Not on file documented as of this encounter Visit Diagnoses Diagnosis Type 2 diabetes mellitus without complication, with long-term current use of insulin ([facility]) ([facility])- Primary documented in this encounter Discontinued Medications Medication Sig Discontinue Reason Start Date End Da te insulin lispro (HumaLOG) 200 unit/mL (3 mL) pen for injectionIndications:Typ e 2 diabetes mellitus without complication, with long-term current use of insulin ([facility]) ([facility]) Inject 0.18 mL (36 Units total) under the skin 3 (three) times a day before meals Formulary change 03/21/2023 03/25/2023 documented as of this encounter Care Teams Stock Pitcher Relationship Specialty Start Date End Date Keila Jimenez MD [address] [place] [address] PCP - General 10/29/21 Mariana Monique MD [address] [place] [address] Referring Physician Internal Medicine 01/17/20 documented as of this encounter
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
--- OUTSIDE RECORDS SUMMARY | 2024-05-14 03:25 | XMS_ITS | Encounter Summary ---
Author Organization [facility] Address [address] [place] [address] Phone Care Team Providers Care Drugless Physician Name Role Phone Mariana Monique MD Unavailable [phone] [facility] Provider Reason for Visit * Reason Onset Date Comments Dexcom G7 sensor PA 03/22/2023 Encounter Details Date Type Department Care Team (Late st Contact Info) Description 03/22/2023 Telephone [facility] Scheduling [address] [place] [address] Jenifer Tamez Dexcom G7 sensor [...] often do you attend chur ch or jain services? 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 Per office PA disregarded as pt needs to re-establish care with provider. P METAL PROCESSING WORKER * Telephone Encounter - Jenifer Tamez - 03/22/2023 1:52 PM CST [place]: [id number] Dexcom g7 sensor [employer]--[id number] Status: approved Coverage start date: 03/22/2023 Coverage end date: 05/22/2023 [place]: [id number] Mounjaro 2.5MG/0.5ML [employer]--[id number] Status:approved Coverage start date: 03/22/2023 Coverage end date: 03/22/2024 P METAL PROCESSING WORKER documented in this encounter Plan of Treatment Not on file documented as of this encounter Visit Diagnoses Not on filedocumented in this encounter Care Teams Drugless Physician Relationship Specialty Start Date End Date Keila Jimenez MD [address] [place] [address] PCP - General 10/29/21 Mariana Monique MD [address] [place] [address] Referring Physician Internal Medicine 01/17/20 documented as of this encounter
--- OUTSIDE RECORDS SUMMARY | 2024-05-14 03:25 | XMS_ITS | Encounter Summary ---
Author Organization [facility] Address [address] [place] [address] Phone Care Team Providers Care Benefit Director Name Role Phone Mariana Monique MD Unavailable [phone] [facility] Primary Care Provider Encounter Details Date Type Department Care Team (Late st Contact Info) Description 09/04/2023 Orders Only [facility] Endocrinology Metabolism and Lipid [address] [facility] 5th [place] [address] [place] [address] Peter Styles Jr., MD [address] [place], [place] [id number] DM (diabetes mellitus), type 2 with complications [...] week 11/26/2021 How often do you attend [facility] or taoist services? 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
--- OUTSIDE RECORDS SUMMARY | 2024-05-14 03:25 | XMS_ITS | Encounter Summary ---
Author Organization [facility] Address [address] [place] [address] Phone Care Team Providers Care Yeast Pumper Name Role Phone Mariana Monique MD Unavailable [phone] [facility] Primary Care Provider Encounter Details Date Type Department Care Team (Latest Contact Info) Description 03/21/2023 3:00 PM POLYSOMNOGRAPHIC TECHNOLOGIST Office Visit [facility] Endocrinology Metabolism and Lipid [address] [facility] [address] Medicine [address]th [place] [address] [place] [address] Peter Styles Jr., MD [address] [place] [address] Type 2 diabetes mellitus without complication, with [...] often do you attend chur ch or zoroastrianism services? 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 Not on file Not on file documented as of this encounter Last Filed Vital Signs Vital Sign Reading Time Taken Comments Blood Pressure 141/92 03/21/2023 2:40 PM POLYSOMNOGRAPHIC TECHNOLOGIST Pulse 88 03/21/2023 2:40 PM POLYSOMNOGRAPHIC TECHNOLOGIST Temperature 36.7 ??C (98.1 ??F) 03/21/2023 2:40 PM CS T Respiratory Rate - - Oxygen Saturation - - Inhaled Oxygen Concentration - - Weight 188.2 kg (415 lb) 03/21/2023 2:40 PM POLYSOMNOGRAPHIC TECHNOLOGIST Height 205.7 cm (6' 9 ) 03/21/2023 2:40 PM POLYSOMNOGRAPHIC TECHNOLOGIST Body Mass Index 44.47 03/21/2023 2:40 PM POLYSOMNOGRAPHIC TECHNOLOGIST documented in this encounter Patient Instructions * Patient Instructions* Peter Styles MD - 03/21/2023 3:00 PM POLYSOMNOGRAPHIC TECHNOLOGIST You need more insulin. Please raise U500 to 140 units twice daily. (We will order pens. The dialed is the dose received) Please raise Humalog to 35 units three times daily with meals. The dose dialed is the dose received Please use your phone with [employer] Send us a [employer] message Saturday. SOMNOGRAPHIC TECHNOLOGIST SOMNOGRAPHIC TECHNOLOGIST documented in this encounter Ordered Prescriptions Prescription Sig Dispense Quantity Refills Last Filled Start Date End Date blood-glucose sensor (Dexcom G7 Sensor) deviceIndications: Type 2 diabetes mellitus without complication, with long-term current use of insulin ([facility]) ([facility]) Use to continually monitor glucose, change every 10 days 9 each 3 03/22/2023 lisinopriL (PRINIVIL,ZESTRIL) 20 mg tabletIndications: Type 2 diabetes mellitus without complication, with long-term current use of insulin ([facility]) ([facility]) Take 1 tablet (20 mg total) by mouth daily 90 tablet 3 03/22/2023 rosuvastatin (CRESTOR) 20 mg tabletIndications: Type 2 diabetes mellitus without complication, with long-term current use of insulin ([facility]/HCC) ([facility]) Take 1 tablet (20 mg total) by mouth nightly 30 tablet 11 03/22/2023 pen needle, diabetic (Pen Needle) 31 gauge x 09/18 needleIndications: Type 2 diabetes mellitus without complication, with long-term current use of insulin ([facility]/HCC) ([facility]) Use to inject 5-6 times daily as directed 600 each 3 03/21/2023 insulin regular U-500 (HumuLIN R) 500 unit/mL (3 mL) CONCENTRATED pen for injectionIndicatio ns:Type 2 diabetes mellitus without complication, with long-term current use of insulin (CMS/HCC) ([facility]) Inject 200 Units under the skin 2 (two) times a day Please follow doses prescribed by your physician. 72 mL 3 03/21/2023 4 insulin lispro (HumaLOG) 200 unit/mL (3 mL) pen for injectionIndicatio ns:Type 2 diabetes mellitus without complication, with long-term current use of insulin (CMS/HCC) ([facility]) Inject 0.18 mL (36 Units total) under the skin 3 (three) times a day before meals 48.6 mL 3 03/21/2023 3 tirzepatide (MOUNJARO) 2.5 mg/0.5 mL pen injectorIndication s:Type 2 diabetes mellitus without complication, with long-term current use of insulin (CMS/HCC) ([facility]) Inject 0.5 mL (2.5 mg total) [...] alk phos of 142. RTC 2 months. SOMNOGRAPHIC TECHNOLOGIST documented in this encounter Plan of Treatment Not on file documented as of this encounter Procedures Procedure Name Priority Date/Time Associated Diagnosis Comments POCT HEMOGLOBIN A1C Routine 03/21/2023 2 :48 PM POLYSOMNOGRAPHIC TECHNOLOGIST Type 2 diabetes mellitus without complication, with long-term current use of insulin ([facility]) ([facility]) POCT GLUCOSE [id number] Routine 03/21/2023 2: 47 PM POLYSOMNOGRAPHIC TECHNOLOGIST Type 2 diabetes mellitus without complication, with long-term current use of insulin ([facility]) ([facility]) documented in this encounter Results * POCT hemoglobin A1c (03/21/2023 2:48 PM POLYSOMNOGRAPHIC TECHNOLOGIST) Hemoglobin A1C, POC 11.5 % Blood 03/21/2023 2:48 PM POLYSOMNOGRAPHIC TECHNOLOGIST us Peter Styles Jr., MD POINT OF CARE TEST OR DERABLES Final Result * POCT glucose (03/21/2023 2:47 PM POLYSOMNOGRAPHIC TECHNOLOGIST) Glucose Blood, POC 205 mg/dL Blood 03/21/2023 2:47 PM POLYSOMNOGRAPHIC TECHNOLOGIST us Peter Styles Jr., MD POINT OF CARE TEST OR DERABLES Final Result documented in this encounter Visit Diagnoses Diagnosis Type 2 diabetes mellitus without complication, with long-term current use of insulin ([facility]) ([facility])- Primary Insulin resistance Other abnormal glucose Class 3 severe obesity with serious comorbidity and body mass index (BMI) of 45.0 to 49.9 in adult, unspecified obesity type ([facility]) DM (diabetes mellitus), type 2 with complications ([facility]) ([facility]) Type II or unspecified type diabetes [...] long-term current use of insulin ([facility]) ([facility]) Inject 0.25 mg SQ weekly for [...] long-term current use of insulin ([facility]) ([facility] [...] 3 added in this encounter Care Teams Yeast Pumper Relationship Specialty Start Date End Date Keila Jimenez MD [address] [place] [address] PCP - General 10/29/21 Mariana Monique MD [address] [place] [address] Referring Physician Internal Medicine 01/17/20 documented as of this encounter
--- OUTSIDE RECORDS SUMMARY | 2024-05-14 03:25 | XMS_ITS | Encounter Summary ---
Author Organization [facility] Healthcare Address [address] [place] [address] Care Team Providers Care Christian Counselor Name Role Phone Mariana Monique MD Unavailable [phone] [facility] Primary [facility] Provider Encounter Details Date Type Department Care Team (Late st Contact Info) Description 05/03/2023 Orders Only [facility] Healthcare Occupatiuonal Health [address] [facility] Room 3420 (Third Floor) [place] [address] Charles Avalos MD [address] [place] [address] Screening for tuberculosis (Primary Dx) [...] often do you attend chur ch or jainism services? 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 T-SPOT.TB Panel A Spot Count 0 [facility] T-SPOT.TB Panel B Spot Count 0 [facility] T-SPOT.TB Negative Control Passed [facility] T-SPOT.TB Positive Control Passed [facility] Comment: Test Performed at: [employer] [facility] [place], [place] ??[id number] ? GIBSON FIELDS MD,PHD Blood 05/03/2023 11:5 3 AM DATA PROCESSING MANAGER 05/03/2023 12:12 PM DATA PROCESSING MANAGER Charles Avalos MD LAB MICROBIOLOGY - GENERAL OR DERABLES Final Result [facility] Department of Laboratories [place], [place] [id number] documented in this encounter Visit Diagnoses Diagnosis Screening for tuberculosis- Primary Screening examination for pulmonary tuberculosis documented in this encounter Care Teams Christian Counselor Relationship Specialty Start Date End Date Keila Jimenez MD [address] [place] [address] PCP - General 10/29/21 Mariana Monique MD [address] [place] [address] Referring Physician Internal Medicine 01/17/20 documented as of this encounter
--- OUTSIDE RECORDS SUMMARY | 2024-05-14 03:25 | XMS_ITS | Encounter Summary ---
Author Organization [facility] Address [address] [place] [address] Care Team Providers Care Large Engine Assembler Name Role Phone Unavailable Primary Care Provider Unavailabl e Encounter Details Date Type Department Care Team (Late st Contact Info) Description 02/11/2019 2:50 PM CDT Office Visit [facility] [address] [place] [address] Marci Sanchez MD [address] [place] [address] Social History Tobacco Use Types [...]
--- OUTSIDE RECORDS SUMMARY | 2024-05-14 03:26 | XMS_ITS | Encounter Summary ---
Author Organization [facility] Address [address] [place] [address] Phone Care Team Providers Care Reservoir Caretaker Name Role Phone Mariana Monique MD Unavailable [facility] Primary Care Provider Encounter Details Date Type Department Care Team (Latest Contact Info) Description 03/22/2022 2:00 PM LOCKSTITCH FRONT EDGE TAPE SEWER Office Visit [facility] Endocrinology Metabolism and Lipid [address] [facility] Advanced Medicine 5th [place] [address] [place] [address] Peter Styles Jr., MD [address] [place] [address] Diabetic ketoacidosis without coma associated with type [...] any clubs o r organizations such as advent groups, unions, fraternal or athletic groups, or [...] on file Legal Sex Male 5:01 AM LOCKSTITCH FRONT EDGE TAPE SEWER Gender Identity Male 12/18/2017 12:38 PM CDT Sexual Orientation Not on file 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 Not on file Not on file Not on file documented as of this encounter Last Filed Vital Signs Vital Sign Reading Time Taken Comments Blood Pressure 166/98 03/22/2022 1:42 PM LOCKSTITCH FRONT EDGE TAPE SEWER Pulse 85 03/22/2022 1:42 PM LOCKSTITCH FRONT EDGE TAPE SEWER Temperature 36.3 ??C (97.4 ??F) 03/22/2022 1:42 PM CS T Respiratory Rate - - Oxygen Saturation - - Inhaled Oxygen Concentration - - Weight 187.3 kg (413 lb) 03/22/2022 1:42 PM LOCKSTITCH FRONT EDGE TAPE SEWER Height 205.7 cm (6' 9 ) 03/22/2022 1:42 PM LOCKSTITCH FRONT EDGE TAPE SEWER Body Mass Index 44.26 03/22/2022 1:42 PM LOCKSTITCH FRONT EDGE TAPE SEWER documented in this encounter Patient Instructions * Patient Instructions* Peter Styles Jr., MD - 03/22/2022 2:00 PM LOCKSTITCH FRONT EDGE TAPE SEWER There are 2 apps from [employer]. One runs the dexcom itself and the other is DexGogo Clarity. This giveanalyses of glucose levels. Please download the dexcom Clarity fabiola. Your target range is 70-150. Increase your U500 to 25 units (120 units) three times daily with meals. Observe thew values over1 week. Increase to 30 if you are not within the target. We will call you about the Dexcom connection. The DexGogo Clarity fabiola is cluttered. Look at the ambulatory glucose profile. We will check out Ozempic and other competitors. STITCH FRONT EDGE TAPE SEWER STITCH FRONT EDGE TAPE SEWER STITCH FRONT EDGE TAPE SEWER documented in this encounter Ordered Prescriptions Prescription [...] use of insulin ([facility]) Patient seems to have both insulin [...] alk phos of 142. RTC 3 months. STITCH FRONT EDGE TAPE SEWER documented in this encounter Plan of Treatment Not on file documented as of this encounter Procedures Procedure Name Priority Date/Time Associated Diagnosis Comments POCT HEMOGLOBIN A1C Routine 03/22/2022 2 :20 PM LOCKSTITCH FRONT EDGE TAPE SEWER Diabetic ketoacidosis without coma associated with type 2 diabetes mellitus (CMS/HCC) (HCC) POCT GLUCOSE [id number] Routine 03/22/2022 1: 53 PM LOCKSTITCH FRONT EDGE TAPE SEWER Diabetic ketoacidosis without coma associated with type 2 diabetes mellitus (CMS/HCC) (HCC) documented in this encounter Results * POCT hemoglobin A1c (03/22/2022 2:20 PM LOCKSTITCH FRONT EDGE TAPE SEWER) Hemoglobin A1C, POC 10.9 Blood 03/22/2022 2:20 PM LOCKSTITCH FRONT EDGE TAPE SEWER Peter Styles Jr., MD POINT OF CARE TEST OR DERABLES Final Result * POCT glucose (03/22/2022 1:53 PM LOCKSTITCH FRONT EDGE TAPE SEWER) Glucose Blood, POC 210 mg/dL Blood 03/22/2022 1:53 PM LOCKSTITCH FRONT EDGE TAPE SEWER Peter Styles Jr., MD POINT OF CARE [...] 3 added in this encounter Care Teams Reservoir Caretaker Relationship Specialty Start Date End Date Keila Jimenez MD [address] [place] [address] PCP - General 10/29/21 Mariana Monique MD [address] [place] [address] Referring Physician Internal Medicine 01/17/20 documented as of this encounter
--- OUTSIDE RECORDS SUMMARY | 2024-05-14 03:26 | XMS_ITS | Encounter Summary ---
Author Organization [facility] Healthcare Address [address] [place] [address] Care Team Providers Care Assisted Living Nursing Director Name Role Phone Mariana Monique MD Unavailable [phone] [facility] Primary Care Provider Reason for Visit * Reason Comments Hyperglycemia * Auth/Cert Specialty Diagnoses / Procedures Referred By Contevans t Referred To Contact Diagnoses Diabetic ketoacidosis without coma associated with diabetes mellitus due to underlying condition (CMS/HCC) (HCC) Procedures ADMISSION Referral ID Status Reason Start Date Expiration Date Visits Re quested Visits Authorized [id number] 1 1 Encounter Details Date Type Department Care Team (Late st Contact Info) Description 11/22/2021 10:35 PM CDT - 11/24/2021 1:05 AM CDT Emergency [facility] Emergency Department [address] [place] [address] Jasbir Cline MD [address] [place] [address] Shae Millan MD [address] [place] [address] Norm Butler MD [address] [place] [address] Mike Graham MD PhD [address] [place] [address] Luis Fernando Dutta MD [address] [place] [address] Diabetic ketoacidosis without coma associated [...] on file Legal Sex Male 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 Endocrine diabetes consult for type 1 diabetes. Cellulitis Assessment & Plan Gets recurrent infected ingrown toe nails despite abx. Does not recall which abx he has received. Doxy+amox x7days. Consider podiatry consult. Angina pectoris ([facility]) Assessment & Plan likely panic attacks over ACS. EKG w/o ST-T changes. -Aspirin. Statin. Bb, ACEi. Pending trop trend. Type 2 diabetes mellitus without complication, with long-term current use of insulin ([facility]) ([facility]) Assessment & Plan pending repeat A1c documented in this encounter Consult Notes * Daily Jasso MD PhD - 11/23/2021 3:08 PM CDTAssociated Order(s): CONSULT TO ENDOCRINOLOGY DIABETES Endocrinology & Diabetes Consult Note Patient: Geraldo Velez, 25 y.o. male (: 1995) Room: [facility] ED2-25/ED2-25 ( ) LOS: 0 Consult Question: [...] with ingrown toenails but has notseen a senior drafter or had a foot exam. -Follows with [facility] Endocrinology (Dr. Styles). He has previously been [...] medical history of Anxiety, Depression, Diabetes mellitus ([facility]), Disordered sleep (10/13/2017), HTN (hypertension), Metabolic [...] 16 (L) 09/06/2017 CPEPTIDE 11.2 (H) 12/31/2019 OCD72GI 0.00 03/04/2019 Lab Results Component Value Date [...] will need to follow up with his Thread W[employer] Dr. 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 > He can call [phone] or [phone] to make an appointment. -- Daily Jasso MD PhD PGY-2 Internal Medicine This patient was seen and staffed with Dr. John Solano (Fellow) and Dr. Adam Fulton (Attending). Contact Info: New Consults: [phone]) General Endocrine (Non-Diabetes): [phone] (Check 'Treatment Team' assignment for Diabetes 1 vs 2 vs 3) Diabetes 1: Diabetes Fellow: [phone] Diabetes 2: Ladan Arias, T[employer] SUPERVISOR: [phone] Diabetes 3: See Treatment Team Provider (or [...] for likely infected toenails Adam Fulton MD, [facility] Decal Applierechocardiograph technician Division of Endocrinology, Metabolism & Lipid Research documented in this encounter ED Notes * Lin Stanton RN - 11/23/2021 5:20 PM CDT Called report to [facility]. Report is given to BRYANNA Boyd. Pt is going to ICU room 693. Pt is notified, agrees to go. Pt denies any pain or discomfort at this time. Safety precautions in place. Lin Stanton RN 11/23/21 1816 * Lin Stanton RN - 11/23/2021 5:17 PM CDT Rig number [id number] Lin Stanton RN 11/23/21 1717 * Jasbir [...] ??? DKA, type 1, not at goal ([facility]) ([facility]) 11/24/2021 ??? Diabetic ketoacidosis without coma associated with diabetes mellitus due to underlying condition ([facility]) ([facility]) 11/23/2021 ??? Cellulitis 11/23/2021 ??? Angina pectoris ([facility]) 11/23/2021 ??? Sleep disturbance 12/25/2019 ??? Mood disorder ([facility]) ([facility]) 12/25/2019 ??? Acanthosis nigricans [...] 11/23 1246 Comment: Spoke with the [facility] transfer center, they are working on finding a bed for the patient at [facility] our [facility]. By: Scotty Mcclelland MD Time: 11/23 8787 Comment: Spoke with nurse Judith at [facility], Dr. Dequan Nunez agrees to accept patient to ICU. Will work on By: Scotty Mcclelland MD Time: 11/23 6969 Comment: Patient accepted at [facility], will transfer By: Scotty Mcclelland MD Time: 11/23 8759 Value: Potassium, whole blood: Potassium, bld 3.6 Comment: (Reviewed) By: Scotty Mcclelland MD Time: 11/23 0984 Comment: ATTENDING TRANSITION OF CARE I, Bo Cohen MD, am taking signout from Tra (Attending). I have reviewed all pertinent vital signs allergies, and history available in the chart. Summary: 25 y.o. male Tra Pending: transfer to [facility] - ambulance Dispo: transfer to [facility] By: Bo Cohen MD Time: 11/23 1923 Comment: Assessed patient after sign out he is well appearing no distress, plan is to continue insulin gtt and transfer to available [facility] bed. By: Wes Davila MD Time: 11/234 Comment: Still awaiting transport. By: Wes Davila MD Time: 11/24 005 Comment: EMS arrived to ED to transport patient to [facility]. I re-evaluated him just prior to [...] 45.0 to 49.9 in adult,unspecified obesity type ([facility]) Essential hypertension Hyperglycemia Radames Herrera MD [...] and ICU admit. No bed availability at [facility]. Most recent BMP with [facility] 16. Accepted for transfer to [facility] ICU. Pending: transport Dispo: transfer ED [...] By: Luis Fernando Dutta MD Time: 11/23 1386 Comment: Spoke with Endocrinology who will see the patient By: Scotty Mcclelland MD Time: 11/23 1005 Comment: Spoke with endocrine - patient was given food. Expect DKA to be slow to resolve. They recommend insulin infusion and ICU admission. By: Luis Fernando Dutta MD Time: 11/23 3896 Comment: Spoke with the medical ICU, will admit patient but currently no beds By: Scotty Mcclelland MD Time: 11/23 1246 Comment: Spoke with the [facility] transfer center, they are working on finding a bed for the patient at [facility] our [facility]. By: Scotty Mcclelland MD Time: 11/23 5597 Comment: Spoke with nurse Judith at [facility], Dr. Dequan Enrique agrees to accept patient to ICU. Will work on By: Scotty Mcclelland MD Time: 11/23 1326 Comment: Patient accepted at [facility], will transfer By: Scotty Mcclelland MD Time: 11/23 1329 Value: Potassium, whole blood: Potassium, bld 3.6 Comment: (Reviewed) By: Scotty Mcclelland MD Time: 11/23 8827 Comment: ATTENDING TRANSITION OF CARE I, Bo Cohen MD, am taking signout from Tra (Attending). I have reviewed all pertinent vital signs allergies, and history available in the chart. Summary: 25 y.o. male Tra Pending: transfer to [facility] - ambulance Dispo: transfer to [facility] By: oB Cohen MD Time: 11/23 1587 Comment: Assessed patient after sign out he is well appearing no distress, plan is to continue insulin gtt and transfer to available [facility]. By: Wes Davila MD Time: 11/23 8730 Comment: Still awaiting transport. By: Wes Davila MD Time: 11/24 0052 Comment: EMS arrived to ED to transport patient to [facility]. I re-evaluated him just prior to [...] DKA and awaiting t'az to ICU @ [facility]. Past Medical History: Diagnosis Date ??? [...] . This test is performed using the TranSwitch Xpert Xpress plus assay. This is a [...] . This test is performed using the TranSwitch Xpert Xpress plus assay. This is a [...] 45.0 to 49.9 in adult,unspecified obesity type ([facility]) Essential hypertension Hyperglycemia Mike Graham MD PhD 11/23/2021 7:08 PM Mike Graham MD PhD 11/23/21 1909 * Plan of Care - Hanane Castellon RN - 11/23/2021 4:35 PM CDT Patient accepted for transfer to [facility] after P2P. Nurse given room [...] insulin gtt. Pending: transfer Dispo: transfer to [facility] ED Course as of 11/25/21 0646 [...] By: Luis Fernando Dutta MD Time: 11/23 0988 Comment: Spoke with Endocrinology who will see [...] 11/23 1246 Comment: Spoke with the [facility] transfer center, they are working on finding a bed for the patient at [facility] our [facility]. By: Scotty Mcclelland MD Time: 11/23 1307 Comment: Spoke with nurse Judith at [facility], Dr. Dequan Nunez agrees to accept patient to ICU. Will work on By: Scotty Mcclelland MD Time: 11/23 1328 Comment: Patient accepted at [facility], will transfer By: Scotty Mcclelland MD Time: 11/23 1329 Value: Potassium, whole blood: Potassium, bld 3.6 Comment: (Reviewed) By: Scotty Mcclelland MD Time: 11/23 8369 Comment: ATTENDING TRANSITION OF CARE I, Bo [...] continue insulin gtt and transfer to available [facility] bed. By: Wes Davila MD Time: 11/23 2324 Comment: Still awaiting transport. By: Wes Davila MD Time: 11/24 0052 Comment: EMS arrived to ED to transport patient to [facility]. I re-evaluated him just prior to [...] 45.0 to 49.9 in adult,unspecified obesity type ([facility]) Essential hypertension Hyperglycemia Wes Davila MD Resident 11/23/21 7667 Wes Davila MD Resident 11/25/21 0646 * [...] By: Luis Fernando Dutta MD Time: 11/23 0977 Comment: Spoke with Endocrinology who will see [...] 11/23 1246 Comment: Spoke with the [facility] transfer center, they are working on finding a bed for the patient at [facility]. By: Scotty Mcclelland MD Time: 11/23 1307 Comment: Spoke with nurse Judith at [facility], Dr. Dequan Nunez agrees to accept patient to ICU. Will work on By: Scotty Mcclelland MD Time: 11/23 1329 Comment: Patient accepted at [facility], will transfer By: Scotty Mcclelland MD Time: 11/23 1328 Value: Potassium, whole blood: Potassium, bld 3.6 Comment: (Reviewed) By: Scotty Mcclelland MD Time: 11/23 1504 Comment: ATTENDING TRANSITION OF CARE I, Bo Cohen MD, am taking signout from Tra (Attending). I have reviewed all pertinent vital signs allergies, and history available in the chart. Summary: 25 y.o. male Tra Pending: transfer [facility] By: Bo Cohen MD Time: 11/23 1609 Comment: Assessed patient after sign out he is well appearing no distress, plan is to continue insulin gtt and transfer to available [facility] bed. By: Wes Davila MD Time: 11/23 3884 Comment: Still awaiting transport. By: Wes Davila MD Time: 11/24 0052 Comment: EMS arrived to ED to transport patient to [facility]. I re-evaluated him just prior to [...] 45.0 to 49.9 in adult,unspecified obesity type ([facility]) Essential hypertension Hyperglycemia Scotty Mcclelland MD Resident 11/23/21 4378 * Assessment & Plan Note - Jef Huerta MD - 11/23/2021 3:37 AM CDT Associated Problem(s): Angina pectoris (HCC) likely panic attacks over ACS. EKG w/o ST-T changes. -Aspirin. Statin. Bb, ACEi. Pending trop trend. * Assessment & Plan Note - Jef Huerta MD - 11/23/2021 3:36 AM CDT Associated Problem(s): DM (diabetes mellitus), type 2 with complications (CMS/HCC) ([facility]) pending repeat A1c * Assessment & [...] diabetes mellitus due to underlying condition (CMS/HCC) ([facility]) SQUID protocol. Endocrine diabetes consult for [...] DEVICE Routine 11/23/2021 3 :56 PM CDT IN CRITICAL CARE ILL/INJURED PATIENT INIT 30-74 MIN [...] DEVICE Routine 11/23/2021 1 :58 AM CDT IN CRITICAL CARE ILL/INJURED PATIENT ADDL 30 MIN Routine 11/23/2021 1:39 AM CDT IN CRITICAL CARE ILL/INJURED PATIENT INIT 30-74 MIN [...] Glucose, POC 242(H) 70 - 199 mg/dL [facility] Blood 11/24/2021 12:4 3 AM CDT 11/24/2021 12:43 AM CDT us Mike Graham MD PhD LAB POCT ORDERABLES - DEVICE Final Result [facility] Department [place] [address] * (ABNORMAL) POCT glucose (11/23/2021 11:39 PM CDT) [facility] Signature Glucose, POC 240(H) 70 - 199 mg/dL [facility] Blood 11/23/2021 11:3 9 PM CDT 11/23/2021 11:39 PM CDT us Mike Graham MD PhD LAB POCT ORDERABLES - DEVICE Final Result [facility] Department [place] [address] * (ABNORMAL) POCT glucose (11/23/2021 10:46 PM CDT) Glucose, POC 207(H) 70 - 199 mg/dL [facility] Blood 11/23/2021 10:4 6 PM CDT 11/23/2021 10:46 PM CDT Norm Butler MD LAB POCT ORDERABLES - DEV ICE Final Result Performing Organization Address [facility] Co de Phone Number [facility] Department [place] [address] * (ABNORMAL) POCT glucose (11/23/2021 9:28 PM CDT) Glucose, POC 214(H) 70 - 199 mg/dL [facility] Blood 11/23/2021 9:28 PM CDT 11/23/2021 9:28 PM CDT Norm Butler MD LAB POCT ORDERABLES - DEV ICE Final Result Performing Organization Address [facility] de Phone Number [facility] [place] [address] * (ABNORMAL) Lipid panel (11/23/2021 8:48 PM CDT) Cholesterol 432(H) 30 - 199 mg/dL [facility] Comment: Hemolyzed; result may be falsely elevated [...] 2017. HDL 12(L) >=40 mg/dL [facility] Comment: Interpretive Data Ages < or [...] ORDERABLE S Final Result [facility] [place] [address] * (ABNORMAL) eGFR (11/23/2021 8:48 PM CDT) eGFR >90(H) 90 - 130 mL/min/1. 73 m2 [facility] Comment: Interpretive Data Reference Interval Normal ?>/= [...] BLOOD ORDERABLES Final Result Performing Organization Address City/State/[facility] Co de Phone Number [facility] Department [place] [address] * Potassium, whole blood (11/23/2021 8:48 PM CDT) Potassium, bld 4.4 3.3 - 4.9 mmol/L [facility] Blood 11/23/2021 8:48 PM CDT 11/23/2021 8:53 PM CDT Scotty Mcclelland MD LAB BLOOD ORDERABLES Final Result [facility] Department [place] [address] * (ABNORMAL) Basic metabolic panel (11/23/2021 8:48 PM CDT) Sodium 130(L) 135 - 145 mmol/L [facility] Comment:After removal of alie ss lipemia. Potassium, pl See Comment 3.3 - 4.9 mmol/L [facility] Comment: Credited; Hemolyzed Specimen After removal of gross lipemia. Chloride 95(L) 97 - 110 mmol/L [facility] Comment:After removal of alie ss lipemia. CO2 19(L) 22 - 32 mmol/L [facility] Comment: Hemolyzed; result may be falsely decreased After removal of gross lipemia. Anion gap 16(H) 2 - 15 mmol/L [facility] Comment:After removal of alie ss lipemia. BUN 12 8 - 25 mg/dL [facility] Comment:After removal of alie ss lipemia. Creatinine 0.35(L) 0.80 - 1.30 mg/dL [facility] Comment:After removal of alie ss lipemia. Glucose 166 70 - 199 mg/dL [facility] Comment: After removal of gross lipemia. Interpretive [...] 2017. Calcium 8.3(L) 8.5 - 10.3 mg/dL [facility] Comment:After removal of alie ss lipemia. Blood 11/23/2021 8:48 PM CDT 11/23/2021 9:09 PM CDT us Scotty Mcclelland MD LAB BLOOD ORDERABLES Final Result Performing Organization Address City/[facility]/ZIP Co de Phone Number [facility] [place] [address] * POCT glucose (11/23/2021 8:20 PM CDT) Glucose, POC 188 70 - 199 mg/dL [facility] Blood 11/23/2021 8:20 PM CDT 11/23/2021 8:20 PM CDT us Norm Butler MD LAB POCT ORDERABLES - DEV ICE Final Result Performing Organization Address [facility] Co de Phone Number [facility] [place] [address] * POCT glucose (11/23/2021 6:54 PM CDT) Glucose, POC 150 70 - 199 mg/dL [facility] Blood 11/23/2021 6:54 PM CDT 11/23/2021 6:54 PM CDT us Norm Butler MD LAB POCT ORDERABLES - DEV ICE Final Result Performing Organization Address [facility] Co de Phone Number [facility] [place] [address] * POCT glucose (11/23/2021 5:52 PM CDT) Glucose, POC 138 70 - 199 mg/dL [facility] Blood 11/23/2021 5:52 PM CDT 11/23/2021 5:52 PM CDT us Norm Butler MD LAB POCT ORDERABLES - DEV ICE Final Result Performing Organization Address City/[facility]/ZIP Co de Phone Number [facility] Department [place] [address] * POCT glucose (11/23/2021 4:59 PM CDT) Pathologist [facility] Glucose, POC 141 70 - 199 mg/dL [facility] Blood 11/23/2021 4:59 PM CDT 11/23/2021 4:59 PM CDT Norm Butler MD LAB POCT ORDERABLES - DEV ICE Final Result [facility] Department [place] [address] * (ABNORMAL) eGFR (11/23/2021 4:52 PM CDT) Pathologist [facility] eGFR >90(H) 90 - 130 mL/min/1. 73 m2 [facility] Comment: Interpretive Data Reference Interval Normal ?>/= [...] BLOOD ORDERABLES Final Result Performing Organization Address City/[facility] Co de Phone Number [facility] [place] [address] * Potassium, whole blood (11/23/2021 4:52 PM CDT) Potassium, bld 3.8 3.3 - 4.9 mmol/L [facility] Blood 11/23/2021 4:52 PM CDT 11/23/2021 5:02 PM CDT Scotty Mcclelland MD LAB BLOOD ORDERABLES Final Result Performing Organization Address [facility] de Phone Number [facility] Department [place] [address] * (ABNORMAL) Basic metabolic panel (11/23/2021 4:52 PM CDT) Pathologist [facility] Sodium 136 135 - 145 mmol/L [facility] Comment:After removal of alie ss lipemia. Potassium, pl See Comment 3.3 - 4.9 mmol/L [facility] Comment: Credited; Hemolyzed Specimen After removal of gross lipemia. Chloride 102 97 - 110 mmol/L [facility] Comment:After removal of alie ss lipemia. CO2 16(L) 22 - 32 mmol/L [facility] Comment:After removal of alie ss lipemia. Anion gap 18(H) 2 - 15 mmol/L [facility] Comment:After removal of alie ss lipemia. BUN 14 8 - 25 mg/dL [facility] Comment:After removal of alie ss lipemia. Creatinine 0.53(L) 0.80 - 1.30 mg/dL [facility] Comment:After removal of alie ss lipemia. Glucose 136 70 - 199 mg/dL [facility] Comment: After removal of gross lipemia. Interpretive [...] 2017. Calcium 8.7 8.5 - 10.3 mg/dL [facility] Comment:After removal of alie ss lipemia. Blood 11/23/2021 4:52 PM CDT 11/23/2021 5:10 PM CDT Scotty Mcclelland MD LAB BLOOD ORDERABLES Final Result Performing Organization Address [facility] Co de Phone Number [facility] Department [place] [address] * POCT glucose (11/23/2021 3:56 PM CDT) [facility] Signature Glucose, POC 155 70 - 199 mg/dL [facility] Blood 11/23/2021 3:56 PM CDT 11/23/2021 3:56 PM CDT Norm Butler MD LAB POCT ORDERABLES - DEV ICE Final Result Performing Organization Address [facility] Co de Phone Number [facility] Department [place] [address] * IN CRITICAL CARE ILL/INJURED PATIENT INIT 30-74 MIN [...] Glucose, POC 167 70 - 199 mg/dL [facility] Blood 11/23/2021 2:30 PM CDT 11/23/2021 2:30 PM CDT Norm Butler MD LAB POCT ORDERABLES - DEV ICE Final Result Performing Organization Address [facility] Co de Phone Number [facility] Department [place] [address] * (ABNORMAL) POCT glucose (11/23/2021 1:40 PM CDT) Glucose, POC 229(H) 70 - 199 mg/dL [facility] Blood 11/23/2021 1:40 PM CDT 11/23/2021 1:40 PM CDT Norm Butler MD LAB POCT ORDERABLES - DEV ICE Final Result [facility] Department [place] [address] * (ABNORMAL) POCT lactate (11/23/2021 1:06 PM CDT) Pathologist [facility] Lactate POC i-STAT <0.5(L) 0.7 - 2.2 mmol/L [facility] Blood 11/23/2021 1:06 PM CDT 11/23/2021 1:06 PM CDT us Norm Butler MD LAB POCT ORDERABLES - DEV ICE Final Result Performing Organization Address City/State/[facility] Co de Phone Number [facility] Department [place] [address] * Cholesterol, LDL, direct (11/23/2021 12:57 PM CDT) Pathologist [facility] LDL Cholesterol, Direct 15 <=129 mg/dL [facility] Comment: Interpretive Data Ages < or = [...] CDT 11/23/2021 4:22 PM CDT Narrative [facility] - 11/24/2021 8:10 AM CDT Cholesterol, LDL, direct reflexed based on Elevated Triglyceride (>400) us Norm Butler MD LAB BLOOD ORDERABLES Melina castorena Result [facility] Department [place] [address] * (ABNORMAL) Lipid panel (11/23/2021 12:57 PM [...] on 2017. Triglycerides 576(H) <=149 mg/dL [facility] Comment: Hemolyzed; result may be falsely [...] on 2017. HDL 11(L) >=40 mg/dL [facility] Comment: Interpretive Data Ages < or [...] on 2017. LDL, calculated See Comment <=129 [facility] Comment: Unable to calculate LDL due to [...] on 2017. Non-HDL Cholesterol 87 mg/dL [facility] Comment: Interpretive Data Ages < or [...] last revised on 2017. Chol/HDL ratio [address] [facility] Blood 11/23/2021 12:5 7 PM CDT 11/23/2021 1:08 PM CDT us Norm Butler MD LAB BLOOD ORDERABLES Edit ed Result - Final [facility] [place] [address] * (ABNORMAL) eGFR (11/23/2021 12:57 PM CDT) eGFR >90(H) 90 - 130 mL/min/1. 73 m2 [facility] [facility] Comment: Interpretive Data Reference Interval Normal [...] BLOOD ORDERABLES Final Result Performing Organization Address City/[facility]/ZIP Co de Phone Number [facility] [place] [address] * Potassium, whole blood (11/23/2021 12:57 PM CDT) Potassium, bld 3.6 3.3 - 4.9 mmol/L [facility] Blood 11/23/2021 12:5 7 PM CDT 11/23/2021 1:08 PM CDT Scotty Mcclelland MD LAB BLOOD ORDERABLES Final Result Performing Organization Address City/[facility] Co de Phone Number [facility] [place] [address] * (ABNORMAL) Basic metabolic panel (11/23/2021 12:57 PM CDT) Sodium 138 135 - 145 mmol/L [facility] Comment:After removal of alie ss lipemia. Potassium, pl See Comment 3.3 - 4.9 mmol/L [facility] Comment:Credited; Hemolyzed Specimen Chloride 104 97 - 110 mmol/L [facility] Comment:After removal of alie ss lipemia. CO2 18(L) 22 - 32 mmol/L [facility] Comment:After removal of alie ss lipemia. Anion gap 16(H) 2 - 15 mmol/L [facility] Comment:After removal of alie ss lipemia. BUN 17 8 - 25 mg/dL [facility] Comment:After removal of alie ss lipemia. Creatinine 0.58(L) 0.80 - 1.30 mg/dL [facility] Comment:After removal of alie ss lipemia. Glucose 255(H) 70 - 199 mg/dL [facility] Comment: After removal of gross lipemia. Interpretive [...] 2017. Calcium 9.0 8.5 - 10.3 mg/dL [facility] Comment:After removal of alie ss lipemia. Blood 11/23/2021 12:5 7 PM CDT 11/23/2021 1:08 PM CDT Scotty Mcclelland MD LAB BLOOD ORDERABLES Final Result [facility] [place] [address] * Troponin I high-sensitivity 6-hour (11/23/2021 12:57 PM CDT) Trop I hs <4 <=35 ng/L [facility] Comment: Interpretive Data For further hscTnI resources including the diagnostic algorithm and an aid in interpretation, copy and paste this link: https://bjhlab.testcatalog.org/show/hsTrop-1 Current Interpretive Data last revised 2019. Trop I hs delta See Comment ng/L [facility] Comment:Inappropriate collec tion time to report a delta. Trop I hs pct delta See Comment % [facility] Comment:Inappropriate collec tion time to report a delta. Trop I hs interp See Comment [facility] Comment:Inappropriate collec tion time to report a delta. Blood 11/23/2021 12:5 7 PM CDT 11/23/2021 1:08 PM CDT Radames Herrera MD LAB BLOOD ORDERABLES Melina l Result Performing Organization Address City/[facility] Co de Phone Number [facility] [place] [address] * (ABNORMAL) POCT glucose (11/23/2021 12:31 PM CDT) Glucose, POC 270(H) 70 - 199 mg/dL [facility] Blood 11/23/2021 12:3 1 PM CDT 11/23/2021 12:31 PM CDT Norm Butler MD LAB POCT ORDERABLES - DEV ICE Final Result Performing Organization Address [facility] Co de Phone Number [facility] [place] [address] * (ABNORMAL) POCT glucose (11/23/2021 11:36 AM CDT) Glucose, POC 275(H) 70 - 199 mg/dL [facility] Blood 11/23/2021 11:3 6 AM CDT 11/23/2021 11:36 AM CDT Norm Butler MD LAB POCT ORDERABLES - DEV ICE Final Result Performing Organization Address City/[facility] Co de Phone Number [facility] [place] [address] * (ABNORMAL) POCT glucose (11/23/2021 10:28 AM CDT) Glucose, POC 221(H) 70 - 199 mg/dL [facility] Blood 11/23/2021 10:2 8 AM CDT 11/23/2021 10:28 AM CDT us Norm Butler MD LAB POCT ORDERABLES - DEV ICE Final Result Performing Organization Address [facility] Co de Phone Number [facility] Department [place] [address] * (ABNORMAL) eGFR (11/23/2021 8:20 AM CDT) eGFR >90(H) 90 - 130 mL/min/1. [address] Comment: Interpretive Data Reference Interval Normal [...] MD LAB BLOOD ORDERABLES Melina l Result [facility] Department [place] [address] * Troponin I high-sensitivity 4-hour (11/23/2021 8:20 AM CDT) Trop I hs <4 <=35 ng/L [facility] Comment: Interpretive Data For further hscTnI resources including the diagnostic algorithm and an aid in interpretation, copy and paste this link: https://bjhlab.testcatalog.org/show/hsTrop-1 Current Interpretive Data last revised 2019. Trop I hs delta 0 ng/L [facility] Trop I hs interp Insignificant [facility] Blood 11/23/2021 8:20 AM CDT 11/23/2021 8:45 AM CDT Radames Herrera MD LAB BLOOD ORDERABLES Melina l Result Performing Organization Address [facility] de Phone Number [facility] Department [place] [address] * (ABNORMAL) Basic metabolic panel (11/23/2021 8:20 AM CDT) Pathologist [facility] Sodium 138 135 - 145 mmol/L [facility] Comment:After removal of alie ss lipemia. Potassium, pl See Comment 3.3 - 4.9 mmol/L [facility] Comment: Credited; Hemolyzed Specimen After removal of gross lipemia. Chloride 103 97 - 110 mmol/L [facility] Comment:After removal of alie ss lipemia. CO2 16(L) 22 - 32 mmol/L [facility] Comment:After removal of alie ss lipemia. Anion gap 19(H) 2 - 15 mmol/L [facility] Comment:After removal of alie ss lipemia. BUN 18 8 - 25 mg/dL [facility] Comment:After removal of alie ss lipemia. Creatinine 0.58(L) 0.80 - 1.30 mg/dL [facility] Comment:After removal of alie ss lipemia. Glucose 194 70 - 199 mg/dL [facility] Comment: After removal of gross lipemia. Interpretive [...] 2017. Calcium 8.4(L) 8.5 - 10.3 mg/dL [facility] Comment:After removal of alie ss lipemia. Blood 11/23/2021 8:20 AM CDT 11/23/2021 8:45 AM CDT Radames Herrera MD LAB BLOOD ORDERABLES Melina l Result [facility] Department [place] [address] * POCT glucose (11/23/2021 8:07 AM CDT) Glucose, POC 184 70 - 199 mg/dL [facility] Blood 11/23/2021 8:07 AM CDT 11/23/2021 8:07 AM CDT Shae Millan MD LAB POCT ORDERABLES - ARJUN CE Final Result Performing Organization Address City/[facility]/ZIP Co de Phone Number [facility] Department [place] [address] * Troponin I high-sensitivity 2-hour (11/23/2021 6:35 AM CDT) Trop I hs <4 <=35 ng/L [facility] Comment: Interpretive Data For further [facility] resources including the diagnostic algorithm and an aid in interpretation, copy and paste this link: [email or web address].testcatalog.org/show/hsTrop-[email or web address] Current Interpretive Data last revised 2019. Trop I hs delta 0 ng/L [facility] Trop I hs interp Insignificant [facility] Blood 11/23/2021 6:35 AM CDT 11/23/2021 6:40 AM CDT us Radames Herrera MD LAB BLOOD ORDERABLES Melina l Result Performing Organization Address [facility] Co de Phone Number [facility] Department [place] [address] * (ABNORMAL) POCT glucose (11/23/2021 6:29 AM CDT) Glucose, POC 222(H) 70 - 199 mg/dL [facility] Blood 11/23/2021 6:29 AM CDT 11/23/2021 6:29 AM CDT us Shae Millan MD LAB POCT ORDERABLES - ARJUN CE Final Result Performing Organization Address [facility] de Phone Number [facility] [place] [address] * (ABNORMAL) eGFR (11/23/2021 4:39 AM CDT) eGFR >90(H) 90 - 130 mL/min/1. 73 m2 [facility] Comment: Interpretive Data Reference Interval Normal ?>/= [...] MD LAB BLOOD ORDERABLES Melina castorena Result [facility] Department [place] [address] * (ABNORMAL) Basic metabolic panel (11/23/2021 4:39 AM CDT) Sodium 134(L) 135 - 145 mmol/L [facility] Comment:After removal of alie ss lipemia. Potassium, pl See Comment 3.3 - 4.9 mmol/L [facility] Comment:Credited; Hemolyzed Specimen Chloride 100 97 - 110 mmol/L [facility] Comment:After removal of alie ss lipemia. CO2 15(L) 22 - 32 mmol/L [facility] Comment:After removal of alie ss lipemia. Anion gap 19(H) 2 - 15 mmol/L [facility] Comment:After removal of alie ss lipemia. BUN 17 8 - 25 mg/dL [facility] Comment:After removal of alie ss lipemia. Creatinine 0.64(L) 0.80 - 1.30 mg/dL [facility] Comment:After removal of alie ss lipemia. Glucose 289(H) 70 - 199 mg/dL [facility] Comment: After removal of gross lipemia. Interpretive [...] 2017. Calcium 8.7 8.5 - 10.3 mg/dL [facility] Comment:After removal of alie ss lipemia. Blood 11/23/2021 4:39 AM CDT 11/23/2021 4:51 AM CDT Radames Herrera MD LAB BLOOD ORDERABLES Melina l Result Performing Organization Address [facility] Co de Phone Number [facility] Department [place] [address] * Troponin I high-sensitivity series (baseline, 2hr, 4hr, 6hr) (11/23/2021 4:13 AM CDT) [facility] Trop I hs <4 <=35 ng/L [facility] Comment: Interpretive Data For further hscTnI resources including the diagnostic algorithm and an aid in interpretation, copy and paste this link: https://bjhlab.testcatalog.org/show/hsTrop-1 Current Interpretive Data last revised 2019. Blood 11/23/2021 4:13 AM CDT 11/23/2021 4:27 AM CDT Radames Herrera MD LAB BLOOD ORDERABLES Melina l Result Performing Organization Address [facility] Co de Phone Number [facility] Department [place] [address] * (ABNORMAL) POCT glucose (11/23/2021 4:12 AM CDT) Glucose, POC 321(H) 70 - 199 mg/dL [facility] Glucose comment 1 Glu2: RN/MD Notified [facility] Blood 11/23/2021 4:12 AM CDT 11/23/2021 4:12 AM CDT Jasbir Cline MD LAB POCT ORDERABLES - DEV ICE Final Result [facility] [place] [address] * COVID-19 Coronavirus RNA Nasopharyngeal (11/23/2021 2:07 AM CDT) [facility] COVID-19 RNA Negative Negative [facility] Nasopharyngeal 11/23/2021 2: 07 AM CDT 11/23/2021 2:13 AM CDT Narrative [facility] - 11/23/2021 2:55 AM CDT Is the patient experiencing any symptoms consistent with COVID (eg. Fever, cough, shortness of breath)?->No What is the reason for testing?->Bed placement or semi-private room (Rapid) ??Interpretive data: Synonyms for this test include: PCR and NAAT . ??This test is performed using the TranSwitch Xpert Xpress plus assay. This is a [...] . ??This test is performed using the TranSwitch Xpert Xpress plus assay. This is a [...] L ORDERABLES Final Result Performing Organization Address City/[facility] Co de Phone Number [facility] Department [place] [address] * (ABNORMAL) POCT glucose (11/23/2021 1:58 AM CDT) [facility] Signature Glucose, POC 349(H) 70 - 199 mg/dL [facility] Glucose comment 1 Glu2: RN/MD Notified [facility] Blood 11/23/2021 1:58 AM CDT 11/23/2021 1:58 AM CDT us Jasbir Cline MD LAB POCT ORDERABLES - DEV ICE Final Result Performing Organization Address [facility] Co de Phone Number [facility] [place] [address] * IN CRITICAL CARE ILL/INJURED PATIENT INIT 30-74 MIN, IN CRITICAL CARE ILL/INJURED PATIENT ADDL 30 MIN [...] Glucose, POC 395(H) 70 - 199 mg/dL [facility] Glucose comment 1 Glu2: RN/MD Notified [facility] Blood 11/23/2021 12:1 7 AM CDT 11/23/2021 12:17 AM CDT Jasbir Cline MD LAB POCT ORDERABLES - DEV ICE Final Result [facility] Department [place] [address] * (ABNORMAL) Hemoglobin A1c (11/22/2021 11:23 PM CDT) Pathologist [facility] Hgb A1C 10.9(H) 4.0 - 5.6 % [facility] Estimated Average Glucose 266 mg/dL [facility] Comment: The ADA recommends reporting an estimated [...] MD LAB BLOOD ORDERABLES Melina castorena Result [facility] Department [place] [address] * Differential, auto (11/22/2021 11:23 PM CDT) Neutrophil abs 2.7 1.7 - 6.5 K/cumm [facility] Imm gran abs 0.1 0.0 - 0.1 K/cumm [facility] Lymphocyte abs 1.8 0.8 - 3.3 K/cumm [facility] Monocyte abs 0.4 0.2 - 0.8 K/cumm [facility] Eosinophil abs 0.1 0.0 - 0.5 K/cumm [facility] Basophil abs 0.0 0.0 - 0.1 K/cumm [facility] Neutrophil pct 52.6 % [facility] Comment: Interpretive Data Percent cell count reference ranges are not reported, since discordance with absolute values may lead to misinterpretation of CBC data. Current Interpretive Data was last revised on 2017. Imm gran pct 1.0 % [facility] Comment: Interpretive Data Percent cell count reference ranges are not reported, since discordance with absolute values may lead to misinterpretation of CBC data. Current Interpretive Data was last revised on 2017. Lymphocyte pct 35.7 % [facility] Comment: Interpretive Data Percent cell count reference ranges are not reported, since discordance with absolute values may lead to misinterpretation of CBC data. Current Interpretive Data was last revised on 2017. Monocyte pct 7.4 % [facility] Comment: Interpretive Data Percent cell count reference ranges are not reported, since discordance with absolute values may lead to misinterpretation of CBC data. Current Interpretive Data was last revised on 2017. Eosinophil pct 2.7 % [facility] Comment: Interpretive Data Percent cell count reference ranges are not reported, since discordance with absolute values may lead to misinterpretation of CBC data. Current Interpretive Data was last revised on 2017. Basophil pct 0.6 % [facility] Comment: Interpretive Data Percent cell count reference ranges are not reported, since discordance with absolute values may lead to misinterpretation of CBC data. Current Interpretive Data was last revised on 2017. Blood 11/22/2021 11:2 3 PM CDT 11/22/2021 11:36 PM CDT us Tess Balderas MD LAB BLOOD ORDERABLES Final Result Performing Organization Address City/[facility] Co de Phone Number [facility] Department [place] [address] * (ABNORMAL) CBC with auto differential (11/22/2021 11:23 PM CDT) WBC 5.1 3.8 - 9.9 K/cumm [facility] Hgb 18.7(H) 13.0 - 17.5 g/dL [facility] Hct 40.2 38.9 - 50.3 % [facility] Plt 283 150 - 400 K/cumm [facility] MPV 9.8 9.1 - 12.3 fL [facility] RBC 5.04 4.30 - 5.80 M/cumm [facility] MCV 79.8(L) 81.3 - 96.4 fL [facility] MCH 37.1(H) 27.1 - 33.3 pg [facility] MCHC 46.5(H) 32.3 - 35.7 g/dL [facility] RDW CV 13.0 11.1 - 14.9 % [facility] RDW SD 36.4 35.7 - 48.1 fL [facility] NRBC abs 0.00 0.00 - 0.01 K/cumm [facility] Blood 11/22/2021 11:2 3 PM CDT 11/22/2021 11:36 PM CDT us Tess Balderas MD LAB BLOOD ORDERABLES Final Result Performing Organization Address [facility]/ZIP Co de Phone Number [facility] [place] [address] * eGFR (11/22/2021 11:21 PM CDT) eGFR [...] LAB BLOOD ORDERABLES Final R esult [facility] [place] [address] * (ABNORMAL) Blood gas, venous (11/22/2021 11:21 PM CDT) Pathologist [facility] pH, Venous 7.34 7.32 - 7.43 [facility] PCO2, Venous 30(L) 40 - 50 mmHg [facility] PO2, Venous 127 mmHg [facility] Comment: Interpretive Data No Reference Range Established Current Interpretive Data was last revised on 2017. HCO3 Venous, Calculated 17(L) 20 - 30 mmol/L [facility] BE, venous -8 mmol/L [facility] Comment: Interpretive Data No Reference Range Established Current Interpretive Data was last revised on 2017. Blood 11/22/2021 11:2 1 PM CDT 11/22/2021 11:29 PM CDT us Jasbir Cline MD LAB BLOOD ORDERABLES Melina castorena Result [facility] [place] [address] * (ABNORMAL) Basic metabolic panel (11/22/2021 11:21 PM CDT) Sodium 129(L) 135 - 145 mmol/L [facility] Comment:After removal of alie ss lipemia. Potassium, pl See Comment 3.3 - 4.9 mmol/L [facility] Comment: Credited; Hemolyzed Specimen After removal of gross lipemia. Chloride 94(L) 97 - 110 mmol/L [facility] Comment:After removal of alie ss lipemia. CO2 14(L) 22 - 32 mmol/L [facility] Comment: Hemolyzed; result may be falsely decreased After removal of gross lipemia. Anion gap 21(H) 2 - 15 mmol/L [facility] Comment:After removal of alie ss lipemia. BUN 19 8 - 25 mg/dL [facility] Comment:After removal of alie ss lipemia. Creatinine 0.82 0.80 - 1.30 mg/dL [facility] Comment:After removal of alie ss lipemia. Glucose 442(H) 70 - 199 mg/dL [facility] Comment: After removal of gross lipemia. Interpretive [...] 2017. Calcium 9.4 8.5 - 10.3 mg/dL [facility] Comment:After removal of alie ss lipemia. Blood 11/22/2021 11:2 1 PM CDT 11/22/2021 11:35 PM CDT Jasbir Cline MD LAB BLOOD ORDERABLES Melina l Result Performing Organization Address City/[facility]/ZIP Co de Phone Number [facility] Department [place] [address] * Potassium, whole blood (11/22/2021 11:21 PM CDT) Potassium, bld 4.5 3.3 - 4.9 mmol/L [facility] Blood 11/22/2021 11:2 1 PM CDT 11/22/2021 11:29 PM CDT Jasbir Cline MD LAB BLOOD ORDERABLES Melina l Result Performing Organization Address City/[facility]/ZIP Co de Phone Number [facility] [place] [address] * (ABNORMAL) POCT ketone (11/22/2021 11:09 PM CDT) Ketones, Blood, POC 3.9(A) 0.1 - 0.5 mmol/L Blood specimen (specimen) 11/22/2021 11:09 PM CDT Jasbir Cline MD POINT OF CARE TEST ORDERA BLES Final Result * ECG 12-LEAD (11/22/2021 11:00 PM CDT) Narrative [facility] - 11/22/2021 11:00 PM CDT Bigrit Rosenberg MD ? 11/22/2021 11:04 PM ECG [...] change Interpretation: Interpretation: No significant change Birgit Rsoenberg MD 11/22/21 [id number] us Jasbir Cline MD ECG ORDERABLES Final Res ult [facility] * (ABNORMAL) POCT glucose (11/22/2021 10:25 PM CDT) Glucose, POC 511(C) 70 - 199 mg/dL [facility] Glucose comment 1 Glu2: [facility] Blood 11/22/2021 10:2 5 PM CDT 11/22/2021 10:25 PM CDT us Notinfile Unknown LAB POCT ORDERABLES - DEVICE F inal Result [facility] [place] [address] documented in this encounter Visit Diagnoses Diagnosis [...] infusion 150 mL/hr, intravenous, Continuous, Starting on [facility] 11/23/21 at 1012, Start when blood [...] glucose less than 70 mg/dL, Starting on [facility] 11/23/21 at 1009, If patient is [...] 11/22/2021 documented in this encounter Care Teams Assisted Living Nursing Director Relationship Specialty Start Date End Date Keila Jimenez MD [address] [place] [address] PCP - General 10/29/21 Mariana Monique MD [address] [place] [address] Referring Physician Internal Medicine 01/17/20 documented as of this encounter
--- OUTSIDE RECORDS SUMMARY | 2024-05-14 03:26 | XMS_ITS | Encounter Summary ---
Author Organization [facility] Address [address] [place] [address] Phone Care Team Providers Care Frame Sample And Pattern Supervisor Name Role Phone Jann Burrows MD Primary Care Provider [phone] Mariana Monique MD Unavailable [phone] Reason for Visit * Reason Onset Date Comments Dexcom update 08/17/2021 Encounter Details Date Type Department Care Team (Late st Contact Info) Description 08/17/2021 Documentation [facility] Endocrinology Metabolism and Lipid [address] [facility] 5th [place] [address] [place] [address] Denia Albert RN Dexcom update Social History Tobacco Use Types Packs/Day Years Used Date Smoking Tobacco: Never Smokeless Tobacco: Former Chew Quit: 01/13/2019 Alcohol Use Standard Drinks/Week Comments Not Currently 0 (1 standard drink = 0.6 oz pur e alcohol) Sex and Gender Information Value Date Recorded Sex Assigned at Not on file Legal Sex Male 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 08/16/2021 08/11/2021 documented in this encounter Plan of Treatment Not on file documented as of this encounter Visit Diagnoses Not on filedocumented in this encounter Care Teams Frame Sample And Pattern Supervisor Relationship Specialty Start Date End Date Jann Burrows MD [address] [place] [address] PCP - General Hematology 03/13/19 10/28/21 Mariana Monique MD [address] [place] [address] Referring Physician Internal Medicine 01/17/20 documented as of this encounter
--- OUTSIDE RECORDS SUMMARY | 2024-05-14 03:26 | XMS_ITS | Encounter Summary ---
Author Organization [facility] Healthcare Address [address] [place] [address] Care Team Providers Care Clinical Ob Name Role Phone Jann Burrows MD Primary Care Provider [phone] Mariana Monique MD Unavailable [phone] Reason for Referral * Consultation (Routine) - Closed Specialty Diagnoses / Procedures Referred By Contevans t Referred To Contact Sleep Medicine Diagnoses Mood disorder (HCC) Sleep disturbance Abiola Villegas NP [facility] [address] [place] [address] Phone: tel: fax: [facility] [address] [place] [address] Phone: tel: Referral ID Status Reason Start Date Expiration Date V isits Requested Visits Authorized [id number] Closed Specialty Services Required 06/19/2021 07/19/2022 1 1 Question Answer Please select the performing region: [facility] [[id number]] Please select the performing department: [facility] [[id number]] # of visits: 1 STICAL INSTALLER Reason for Visit * Reason Comments Post Hospital Visit Pt went to ER at the beginning of Jun for nausea & vomiting with hyperglycemia. Encounter Details Date Type Department Care Team (Late st Contact Info) Description 06/19/2021 2:30 PM ACOUSTICAL INSTALLER Office Visit [facility] [address] [place] [address] Evangelina Patel MD [address] [facility] [phone] [place] [address] Abiola Villegas NP [facility] [address] [place] [address] Type 2 diabetes mellitus without complication, with long-term current use of insulin (CMS/HCC) ([facility]) (Primary Dx); Essential hypertension; Mood disorder (CMS/HCC) ([facility]); Sleep disturbance Discharge Disposition: Discharge to home or self care Social History Tobacco Use Types Packs/Day Years Used Date Smoking Tobacco: Never Smokeless Tobacco: Former Chew Quit: 01/13/2019 Alcohol Use Standard Drinks/Week Comments Not Currently 0 (1 standard drink = 0.6 oz pur e alcohol) Sex and Gender Information Value Date Recorded Sex Assigned at Not on file Legal Sex Male 5:01 AM ACOUSTICAL INSTALLER Gender Identity Male 12/18/2017 12:38 PM CDT Sexual Orientation Not on file 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 Not on file Not on file documented as of this encounter Last Filed Vital Signs Vital Sign Reading Time Taken Comments Blood Pressure 140/83 06/19/2021 3:21 PM ACOUSTICAL INSTALLER Pulse 98 06/19/2021 2:39 PM ACOUSTICAL INSTALLER Temperature 37.1 ??C (98.7 ??F) 06/19/2021 2:39 PM CS T Respiratory Rate 20 06/19/2021 2:39 PM ACOUSTICAL INSTALLER Oxygen Saturation 98% 06/19/2021 2:39 PM ACOUSTICAL INSTALLER Inhaled Oxygen Concentration - - Weight 200.8 kg (442 lb 11.2 oz) 06/19/2021 2:39 PM ACOUSTICAL INSTALLER Height 203.2 cm (6' 8 ) 06/19/2021 2:39 PM ACOUSTICAL INSTALLER Body Mass Index 48.63 06/19/2021 2:39 PM ACOUSTICAL INSTALLER documented in this encounter Ordered Prescriptions Prescription [...] this encounter Progress Notes * Abiola Villegas, PLANER MILL GRADER - 06/19/2021 2:30 PM CST PRIMARY CARE MEDICINE CLINIC NOTE Patient Name: Geraldo Velez : 1995 Today's Date: 06/19/2021 PCP: Jann Burrows MD SUBJECTIVE CHIEF COMPLAINT Chief Complaint Patient presents with ??? Post Hospital Visit Pt went to ER at the beginning of Jun for nausea & vomiting with hyperglycemia. HISTORY OF PRESENT ILLNESS Geraldo Velze is a 25 y.o. male with h/o [...] was discontinued by Dr. Irasema CROWE his Nutrition Tech. He has picked up refills of all [...] Not on file Occupational History ??? 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 Smoking status: Never Smoker [...] tablet DMT2 SMBG 180-300. Have messaged Maira [facility] Molder Hand for CMB equipment through [employer]. Will schedule follow up with Dr. Irasema CROWE Nutrition Tech. Continues Humulin 150 units tid with meals [...] PCP. Abiola Villegas NP 06/19/21 4:35 PM STICAL INSTALLER documented in this encounter Plan of Treatment Scheduled Referrals Name Type Priority Associated Diagnoses Orde r Schedule Ambulatory referral to Sleep Medicine Outpatient Referral Routine Mood disorder ([facility]) ([facility]) Sleep disturbance Expected: 07/03/2021 (Approximate), Expires: 06/19/2022 documented as of this encounter Visit Diagnoses Diagnosis Type 2 diabetes mellitus without complication, with long-term current use of insulin ([facility]) ([facility])- Primary Essential hypertension Unspecified essential hypertension Mood disorder ([facility]) Unspecified episodic mood disorder Sleep disturbance Unspecified [...] documented as of this encounter Care Teams Clinical Ob Relationship Specialty Start Date End Date Jann Burrows MD [address] [place] [address] PCP - General Hematology 03/13/19 10/28/21 Mariana Monique MD [address] [place] [address] Referring Physician Internal Medicine 01/17/20 documented as of this encounter
--- OUTSIDE RECORDS SUMMARY | 2024-05-14 03:26 | XMS_ITS | Encounter Summary ---
Author Organization [facility] Address [address] [place] [address] Phone Care Team Providers Care University President Name Role Phone Mariana Monique MD Unavailable [phone] [facility] Primary Care Provider Reason for Visit * Reason Onset Date Comments ozempic p/a 08/16/2022 Encounter Details Date Type Department Care Team (Late st Contact Info) Description 08/16/2022 Telephone [facility] Endocrinology Metabolism and Lipid [address] [facility] 13th [place] [address] [place] [address] Peter Styles Jr., MD [address] [place] [address] ozempic p/a Social History Tobacco Use Types [...] week 11/26/2021 How often do you attend [facility]? 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 documented in this encounter Plan of Treatment Not on file documented as of this encounter Visit Diagnoses Not on filedocumented in this encounter Care Teams University President Relationship Specialty Start Date End Date Keila Jimenez MD [address] [place] [address] PCP - General 10/29/21 Mariana Monique MD [address] [place] [address] Referring Physician Internal Medicine 01/17/20 documented as of this encounter
--- OUTSIDE RECORDS SUMMARY | 2024-05-14 03:26 | XMS_ITS | Encounter Summary ---
Author Organization [facility] Healthcare Address [address] [place] [address] Care Team Providers Care Lens Edge Grinder Machine Name Role Phone Jann Burrows MD Primary Care Provider [phone] Mariana Monique MD Unavailable [phone] Encounter Details Date Type Department Care Team (Late st Contact Info) Description 06/02/2020 5:30 PM MANAGEMENT INFORMATION SYSTEMS DIRECTOR Lab [facility] [address] [place] [id number] Peter Styles Jr., MD [address] [facility] [address] [place] [address] Type 2 diabetes mellitus without complication, with long-term current use of insulin ([facility]) Discharge Disposition: Discharge to home or self care Social History Tobacco Use Types Packs/Day Years Used Date Smoking Tobacco: Never Smokeless Tobacco: Former Chew Quit: 01/13/2019 Alcohol Use Standard Drinks/Week Comments Not Currently 0 (1 standard drink = 0.6 oz pur e alcohol) Sex and Gender Information Value Date Recorded Sex Assigned at Not on file Legal Sex Male 5:01 AM MANAGEMENT INFORMATION SYSTEMS DIRECTOR Gender Identity Male 12/18/2017 12:38 PM CDT Sexual Orientation Not on file 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 Not on file Not on file documented as of this encounter Discharge Disposition Disposition Code Departure Means Destination Discharge to home or self care documented in this encounter Plan of Treatment Not on file documented as of this encounter Procedures Procedure Name Priority Date/Time Associated Diagnosis Comments ALBUMIN CREATININE RATIO, URINE Routine 06/02/2020 5:27 PM MANAGEMENT INFORMATION SYSTEMS DIRECTOR Type 2 diabetes mellitus without complication, with long-term current use of insulin ([facility]) CHOLESTEROL, LDL, DIRECT Routine 06/02/2020 5:27 PM MANAGEMENT INFORMATION SYSTEMS DIRECTOR Type 2 diabetes mellitus without complication, with long-term current use of insulin ([facility]) LIPID PANEL Routine 06/02/2020 5:27 PM MANAGEMENT INFORMATION SYSTEMS DIRECTOR Type 2 diabetes mellitus without complication, with long-term current use of insulin ([facility]) documented in this encounter Results * Cholesterol, LDL, direct (06/02/2020 5:27 PM MANAGEMENT INFORMATION SYSTEMS DIRECTOR) LDL Cholesterol, Direct 41 <=129 mg/dL TRACIE [...] 2017. Blood specimen (specimen) 06/02/2020 5:27 PM MANAGEMENT INFORMATION SYSTEMS DIRECTOR 06/02/2020 5:50 PM MANAGEMENT INFORMATION SYSTEMS DIRECTOR Narrative TRACIE PAZ - 06/02/2020 7:04 PM MANAGEMENT INFORMATION SYSTEMS DIRECTOR Cholesterol, LDL, direct reflexed based on Elevated Triglyceride (>400) us Peter Styles Jr., MD LAB BLOOD ORDERABLES Final Result TRACIE PAZ [facility] Department [place] [address] * (ABNORMAL) Lipid panel (06/02/2020 5:27 PM MANAGEMENT INFORMATION SYSTEMS DIRECTOR) [facility] Cholesterol 250(H) 30 - 199 mg/dL [facility] Comment: Interpretive Data Ages < or = [...] on 2017. Triglycerides 1,672(H) <=149 mg/dL TR[facility] Comment: Hemolyzed; result may be falsely elevated [...] on 2017. LDL, calculated See Comment <=129 [facility]CA[facility] Comment: Unable to calculate LDL due to [...] revised on 2017. Chol/HDL ratio 13 [facility] Blood specimen (specimen) 06/02/2020 5:27 PM MANAGEMENT INFORMATION SYSTEMS DIRECTOR 06/02/2020 5:50 PM MANAGEMENT INFORMATION SYSTEMS DIRECTOR Narrative [facility] - 06/02/2020 6:38 PM MANAGEMENT INFORMATION SYSTEMS DIRECTOR These lab test should be done fasting. This means do not eat or drink for at least 12 hours prior to getting your blood drawn. Has the patient been fasting for 8 hours or more?->No non fasting us Peter Styles Jr., MD LAB BLOOD ORDERABLES Final Result Performing Organization Address [facility] de Phone Number [facility] Department [place] [address] * Albumin Creatinine Ratio, Urine (06/02/2020 5:27 PM MANAGEMENT INFORMATION SYSTEMS DIRECTOR) Albumin Ur 51.3 mg/L [facility] Comment: Interpretive Data No reference range established. Current interpretive data was last revised 2018. Creatinine Ur 287.1 mg/dL [facility] Comment: Interpretive Data No reference range established. Current interpretive data was last revised 2018. Albumin Creatinine Ratio, Ur 18 1 - 29 mg/g [facility] Urine 06/02/2020 5:27 PM MANAGEMENT INFORMATION SYSTEMS DIRECTOR 06/02/2020 5:51 PM MANAGEMENT INFORMATION SYSTEMS DIRECTOR us Peter Styles Jr., MD LAB URINE ORDERABLES Final Result Performing Organization Address [facility] Co de Phone Number [facility] Department [place] [address] documented in this encounter Visit Diagnoses Diagnosis Type 2 diabetes mellitus without complication, with long-term current use of insulin (CMS/HCC) (HCC) documented in this encounter Care Teams Lens Edge Grinder Machine Relationship Specialty Start Date End Date Jann Burrows MD [address] [place] [address] PCP - General Hematology 03/13/19 10/28/21 Mariana Monique MD [address] [place] [address] Referring Physician Internal Medicine 01/17/20 documented as of this encounter
--- OUTSIDE RECORDS SUMMARY | 2024-05-14 03:26 | XMS_ITS | Encounter Summary ---
Author Organization [facility] Healthcare Address [address] [place] [address] Care Team Providers Care Director [employer] Name Role Phone Mariana Monique MD Unavailable [phone] [facility] Primary Care Provider Reason for Visit * Reason Comments Hyperglycemia Encounter Details Date Type Department Care Team (Late st Contact Info) Description 11/12/2022 4:50 PM CDT - 11/12/2022 9:45 PM CDT Emergency [facility] Emergency Department [address] [place] [address] Discharge Disposition: Left without being [...] any clubs o r organizations such as faith groups, unions, fraternal or athletic groups, or [...] on file Legal Sex Male 5:01 AM TITLE OFFICER Gender Identity Male 12/18/2017 12:38 PM CDT Sexual Orientation Not on file 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 Not on file Not [...] Time of Discharge blood-glucose meter,continuous ([employer] Director) miscIndications:Type 2 diabetes mellitus without complication, with long-term current use of insulin ([facility]) ([facility] [...] with long-term current use of insulin ([facility]) ([facility] [...] (ABNORMAL) POCT glucose (11/12/2022 7:11 PM CDT) [facility] Glucose, POC 341(H) 70 - 140 mg/dL [facility] Comment: For Glucose values <35 mg/dl when Hematocrit is >60 mg/dl,the test may not accurately detect significant hypoglycemia,and testing in the Laboratory should be considered if clinically indicated. Blood 11/12/2022 7:11 PM CDT 11/12/2022 7:11 PM CDT us Notinfile Unknown LAB POCT ORDERABLES - DEVICE F inal Result [facility] [address] Department [place] [address] * eGFR (11/12/2022 5:42 PM CDT) [facility] eGFR 88 mL/min/1. 73 m2 [facility] Comment: Interpretive Data Reference Interval Normal ?>/= [...] ORDERABLES Fin al Result Performing Organization Address [facility] de Phone Number [facility] [address] Department of Laboratories [place], [place] [id number] * Urinalysis, microscopic only (11/12/2022 5:42 PM CDT) Pathologist [facility] WBC, ur 0-5 0 - 5 /HPF [facility] RBC, ur 0-2 0 - 2 /HPF [facility] Epithelial cells, squamous, ur 1-5 0 - 5 /HPF [facility] Culture Reflex Comment Reflex conditions for urine culture (WBC >10) not met. [facility] Urine, clean voided 11/12/2022 5:42 PM CDT 11/12/2022 5:52 PM CDT Sal Licea MD LAB URINE ORDERABLES Fin al Result Performing Organization Address [facility] Co de Phone Number [facility] [address] Department of Laboratories [place], [place] [id number] * Differential, auto (11/12/2022 5:42 PM CDT) Neutrophil abs 2.8 1.7 - 6.5 K/cumm [facility] Imm gran abs 0.0 0.0 - 0.1 K/cumm [facility] Lymphocyte abs 1.8 0.8 - 3.3 K/cumm [facility] Monocyte abs 0.3 0.2 - 0.8 K/cumm [facility] Eosinophil abs 0.2 0.0 - 0.5 K/cumm [facility] Basophil abs 0.0 0.0 - 0.1 K/cumm [facility] Neutrophil pct 53.8 % [facility] Comment: Interpretive Data Percent cell count reference ranges are not reported, since discordance with absolute values may lead to misinterpretation of CBC data. Current Interpretive Data was last revised on 2017. Imm gran pct 0.2 % [facility] Comment: Interpretive Data Percent cell count reference ranges are not reported, since discordance with absolute values may lead to misinterpretation of CBC data. Current Interpretive Data was last revised on 2017. Lymphocyte pct 35.9 % [facility] Comment: Interpretive Data Percent cell count reference ranges are not reported, since discordance with absolute values may lead to misinterpretation of CBC data. Current Interpretive Data was last revised on 2017. Monocyte pct 6.4 % [facility] Comment: Interpretive Data Percent cell count reference ranges are not reported, since discordance with absolute values may lead to misinterpretation of CBC data. Current Interpretive Data was last revised on 2017. Eosinophil pct 3.1 % [facility] Comment: Interpretive Data Percent cell count reference ranges are not reported, since discordance with absolute values may lead to misinterpretation of CBC data. Current Interpretive Data was last revised on 2017. Basophil pct 0.6 % [facility] Comment: Interpretive Data Percent cell count reference ranges are not reported, since discordance with absolute values may lead to misinterpretation of CBC data. Current Interpretive Data was last revised on 2017. Blood 11/12/2022 5:42 PM CDT 11/12/2022 5:52 PM CDT us Sal Licea MD LAB BLOOD ORDERABLES Fin al Result Performing Organization Address [facility]/ZIP Co de Phone Number [facility] [address] Department [place] [address] * (ABNORMAL) Urinalysis reflex to microscopic and culture Urine, clean voided (11/12/2022 5:42 PM CDT) Color, ur Yellow Yellow [facility] Clarity, ur Clear Clear [facility] Specific gravity, ur 1.030 1.003 - 1.030 [facility] pH, urine 6.0 [facility] Protein, ur ql 1+(A) Negative [facility] Glucose, ur ql 4+(A) Negative [facility] Ketones, ur Trace Negative [facility] Bilirubin, ur Negative Negative [facility] Blood, ur Negative Negative [facility] Urobilinogen, ur <2.0 <2.0 mg/dL [facility] Nitrite, ur Negative Negative [facility] Leukocyte esterase, ur Negative Negative [facility] UA reflex comment Reflex to microscopic UA will be performed. [facility] Urine, clean voided 11/12/2022 5:42 PM CDT 11/12/2022 5:52 PM CDT Narrative [facility] - 11/12/2022 6:04 PM CDT ?? Urine pH is affected by diet, medications, systemic acid-base disturbances, and renal tubular function. ??pH may affect urinary stone formation. ??For example, urine pH below 6.0 may help reduce the tendency for calcium phosphate stones and pH greater than 6.0 may reduce the tendency for uric acid stone formation. Source: [facility] [employer]. Last revised 05-16-2017 Sal Licea MD LAB MICROBIOLOGY - GENER AL ORDERABLES Final Result Performing Organization Address City/[facility]/ZIP Co de Phone Number [facility] [address] Department [place] [address] * (ABNORMAL) Comprehensive metabolic panel (11/12/2022 5:42 PM CDT) Sodium 130(L) 135 - 145 mmol/L [facility] Potassium, pl 4.8 3.3 - 4.9 mmol/L [facility] Comment:Hemolyzed; potassium value may be falsely elevated by as much as 0.3 - 0.5 mmol/L. Suggest redraw and reanalysis Chloride 95(L) 97 - 110 mmol/L [facility] CO2 23 22 - 32 mmol/L [facility] Anion gap 12 2 - 15 mmol/L [facility] BUN 16 6 - 25 mg/dL [facility] Creatinine 1.18 0.80 - 1.30 mg/dL [facility] Glucose 343(H) 70 - 199 mg/dL [facility] Comment: Interpretive Data Fasting glucose >/= 126 [...] 2022. Calcium 9.7 8.5 - 10.3 mg/dL [facility] Bilirubin, total 0.2 0.1 - 1.2 mg/dL [facility] Protein, pl 7.0 6.5 - 8.5 g/dL [facility] Albumin 4.1 3.5 - 5.0 g/dL [facility] Alk phos 99 40 - 130 Units/L [facility] ALT 58(H) 7 - 55 Units/L [facility] AST 41 10 - 50 Units/L [facility] Comment:Slightly Hemolyzed S pecimen Blood 11/12/2022 5:42 PM CDT 11/12/2022 5:52 PM CDT us Sal Licea MD LAB BLOOD ORDERABLES Fin al Result [facility] [address] Department [place] [employer] [place] [address] * (ABNORMAL) CBC with auto differential (11/12/2022 5:42 PM CDT) [facility] WBC 5.1 3.8 - 9.9 K/cumm [facility] Hgb 15.5 13.0 - 17.5 g/dL [facility] Hct 42.7 38.9 - 50.3 % [facility] Plt 270 150 - 400 K/cumm [facility] MPV 9.9 9.1 - 12.3 fL [facility] RBC 5.13 4.30 - 5.80 M/cumm [facility] MCV 83.2 81.3 - 96.4 fL [facility] MCH 30.2 27.1 - 33.3 pg [facility] MCHC 36.3(H) 32.3 - 35.7 g/dL [facility] RDW CV 12.0 11.1 - 14.9 % [facility] RDW SD 36.5 35.7 - 48.1 fL [facility] NRBC abs 0.00 0.00 - 0.01 K/cumm [facility] Blood 11/12/2022 5:42 PM CDT 11/12/2022 5:52 PM CDT us Sal Licea MD LAB BLOOD ORDERABLES Fin al Result [facility] [address] Department [place] [address] * (ABNORMAL) POCT glucose (11/12/2022 5:31 PM CDT) [facility] Glucose, POC 339(H) 70 - 140 mg/dL [facility] Comment: For Glucose values <35 mg/dl when Hematocrit is >60 mg/dl,the test may not accurately detect significant hypoglycemia,and testing in the Laboratory should be considered if clinically indicated. Blood 11/12/2022 5:31 PM CDT 11/12/2022 5:31 PM CDT us Notinfile Unknown LAB POCT ORDERABLES - DEVICE F inal Result [facility] [address] Department [place] [address] documented in this encounter Visit Diagnoses Not on filedocumented in this encounter Care Teams Director [employer] Relationship Specialty Start Date End Date Keila Jimenez MD [address] [place], [place] [id number] PCP - General 10/29/21 Mariana Monique MD [address] [place], [place] [id number] Referring Physician Internal Medicine 01/17/20 documented as of this encounter
--- OUTSIDE RECORDS SUMMARY | 2024-05-14 03:26 | XMS_ITS | Encounter Summary ---
Author Organization 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 Name Role Phone Mariana Monique MD Unavailable [phone] [facility] Primary Care Provider Reason for Visit * Auth/Cert Specialty Diagnoses / Procedures Referred By Contac t Referred To Contact Diagnoses DKA, type 1, not at goal (HCC) DKA Procedures NA Referral ID Status Reason Start Date Expiration Date Visits Re quested Visits Authorized [id number] 1 1 Encounter Details Date Type Department Care Team (Latest Contact Info) Description 11/24/2021 1:15 AM CDT - 11/27/2021 3:17 PM CDT Hospital Encounter [id number] [place] [address] Dequan Nunez MD [facility] N [facility] [place] [address] Isidro Leyva MD [address] [place] [address] Discharge Disposition: Discharge to home or self [...] often do you attend chur ch or catholic services? 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 Patient plans to transition care to [facility] and stable for DC. Active [...] your doctor. Additional resources available from the [place] [employer] can be found at www.diabetes.org/nutrition. If a nutrition follow-up with a registered dietitian is desired after you discharge home, please contact the [facility] [phone]. Discharge Medications: Current Medications TAKE these medications [...] 5C QUIGLEY EML Contact Information for Follow-ups [facility] Outpatient Nutrition Counseling Specialty: Diabetes and Nutrition Services [address] [place] [id number] Next Steps: Follow up Instructions: For diabetic diet education, please call to make an appointment. Isidro Leyva MD [facility] documented in this encounter Discharge Instructions * [...] your doctor. Additional resources available from the [place] [employer] can be found at www.diabetes.org/nutrition. If a nutrition follow-up with a registered dietitian is desired after you discharge home, please contact the [facility] [phone]. * Attachments The following attachments cannot be sent through Care Everywhere. * Basic Carbohydrate Counting (General Information) (Gambian) documented in this encounter Medications at Time [...] 1, not at goal (CMS/HCC) ([facility]) [E10.10]. Admitted on11/24/2021, current LOS is 3 [...] Carbohydrate Diet effective now Question Answer Comment ([facility]) Diet type Special Diabetic: Consistent Carbohydrate 11/25/21 1150 11/24/21 2200 Snacks At bedtime 11/24/21 2101 Nutrition Needs Calculations: Calculated Energy Needs Using Equations Weight: (!) 180.7 kg (398 lb 5.9 oz) Height: 205.7 cm (6' 9 ) Estimated Protein Needs Type of Weight Used for Estimated Protein : [place] Protein Needs Based on g/k.2 Total Protein Estimated Needs (gm): 126.24 Kcal/kg Type of Weight Used for Estimated Kcals: [place] Kcal/k Total Kcal/kg Estimated Needs : 2524.8 Nutritional Needs and Diagnosis: Nutrition Diagnosis 1: Food and nutrition-related knowledge deficit Related to: Lack of adherence, Food choices Evidenced by: Lab abnormality Impression: Admitted for DKA with T1DM. health educator provided in-depth education on 11/24. Pt [...] your doctor. Additional resources available from the [place] [employer] can be found at www.diabetes.org/nutrition. If a nutrition follow-up with a registered dietitian is desired after you discharge home, please contact the [facility] [phone]. Keila Dur[address] RD,LD * Vira Vora MD [...] 2-4 weeks with me. Vira Vora MD [facility] Office phone: [phone] Office fax: [phone] * Vira Vora MD - 11/26/2021 6:55 [...] Podiatry. Dispo: Home soon, DW Dr Horan, BOOKS SALESPERSON Annika. Vira Vora MD [facility] Office phone: [phone] Office fax: [phone] * Kenroy Horan MD - 11/26/2021 7:45 [...] have been put in place by the [facility] system to preserve limited supplies. * Vira [...] care fu. Consider Podiatry. DW Dr Horan, BOOKS SALESPERSON. Vira Vora MD [facility] Office phone: [phone] Office fax: [phone] * Kenroy Horan MD - 11/25/2021 8:04 [...] have been put in place by the [facility] system to preserve limited supplies. * Alpa [...] have been put in place by the [facility] system to preserve limited supplies. * Delmer Harmon, [facility] - 11/24/2021 1:53 AM CDT [...] and started on insulin gtt. Transferred to [facility] for further care. Patient reports compliance with [...] over the last 24 hours reviewed in [facility] and / or Clinical desktop. [...] 2:33 PM CDTAssociated Order(s): IP CONSULT TO DRAW HAND Geraldo Velez [id number] Isidro Leyva MD Pre-Education Assessment Units of [...] is active in December. 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 Patient currently has access to insulin and is compliant at this time. Patient does struggle with consistency when eating meals and food choices. Mother is at bedside and very supportive. Diet: Patient works 12 hour nights and is a security installation technician. Struggles with consistent meal times. Patient also [...] and motherappreciative of consultation. Discharge Recommendations [place]: Ultra fine 4 mm Jeanette Garcia RN, Complaint Analyst 11/24/2021 2:33 PM * Vira Vora MD [...] Appreciate consult, will follow Vira Vora MD [facility] Office phone: [phone] Office fax: [phone] documented in this encounter Miscellaneous Notes * [...] From: Patient (11/26/212005) Admission Source: Tx from [facility] ER to ICU Impression: DKA and hypertriglyceride Plan Includes: Iv insulin gtt, RN dm education, Endo guidance for DKA and elev Triglycerides. Primary Source of Transportation: Has discharge transport been arranged?: Yes (11/24/21115) Health Insurance Coverage: [facility] --Pt's fathers insurance coverage. Pt will have insurance through [facility]. Prescription Coverage: Yes [facility] [employer] [place] [address] Primary Care Provider: Pt has been following in [facility]--He plans to obtain PCP when hispersonal insurance will cover, He states he has been following w/DR Peter Styles (modesta) at the [facility]. He has an appt on 01/04/22 - encouraged him to f/u w/Modesta bryson prior to that since he has been hospitalized w/DKA. Pt states he will. Prior to Admission: Primary Caregiver: Self Support System: Spouse/Significant Other Support system contact info (name, phone, availablity): Leatha Velez Mother [phone] ---no number for Girlfriend Home Care Services: [...] than three times a week ??? Attends [employer] Services: Never ??? Active Member of Clubs [...] Collaboration with patient, MD, direct care nurse, Meter Installer, Nurse Coordinator and other members of the health care team to assure needed interventions completed. 2. Return patient to optimal level of self-care post discharge. 3. Automotive Parts Counter Person will follow for Discharge Planning - interventions [...] come off this AM, latus started by skein washer last night, D5W stopped per endocrine. Await [...] * POCT glucose (11/27/2021 12:46 PM CDT) [facility] Signature Glucose, POC 85 70 - 140 mg/dL [facility] Comment: For Glucose values <35 mg/dl when Hematocrit is >60 mg/dl,the test may not accurately detect significant hypoglycemia,and testing in the Laboratory should be considered if clinically indicated. Blood 11/27/2021 12:4 6 PM CDT 11/27/2021 12:46 PM CDT Isidro Leyva MD LAB POCT ORDERABLES - DEVICE Final Result Performing Organization Address [facility] de Phone Number [facility] [address] [facility] [address] [place], [place] [id number] * POCT glucose (11/27/2021 8:47 AM CDT) Glucose, POC 95 70 - 140 mg/dL [facility] Comment: For Glucose values <35 mg/dl when Hematocrit is >60 mg/dl,the test may not accurately detect significant hypoglycemia,and testing in the Laboratory should be considered if clinically indicated. Blood 11/27/2021 8:47 AM CDT 11/27/2021 8:47 AM CDT Isidro Leyva MD LAB POCT ORDERABLES - DEVICE Final Result Performing Organization Address [facility] de Phone Number [facility] [address] [facility] [place] [address] * eGFR (11/27/2021 5:56 AM CDT) eGFR 133 mL/min/1. 73 m2 [facility] Comment: Interpretive Data Reference Interval Normal ?>/= [...] ORDERABLES Final R esult Performing Organization Address City/[facility] Co de Phone Number [facility] [address] [employer] [place], [place] [id number] * Magnesium (11/27/2021 5:56 AM CDT) Magnesium 1.8 1.4 - 2.5 mg/dL [facility] Blood 11/27/2021 5:56 AM CDT 11/27/2021 6:16 AM CDT Kenroy Horan MD LAB BLOOD ORDERABLES Final R esult Performing Organization Address [facility] Co de Phone Number [facility] [address] [place] [address] * (ABNORMAL) Renal function panel (11/27/2021 5:56 AM CDT) Sodium 139 135 - 145 mmol/L [facility] Potassium, pl 3.9 3.3 - 4.9 mmol/L [facility] Comment:Hemolyzed; potassium value may be falsely elevated by as much as 0.6 - 1.0 mmol/L. Suggest redraw and reanalysis Chloride 107 97 - 110 mmol/L [facility] CO2 22 22 - 32 mmol/L [facility] Anion gap 10 2 - 15 mmol/L [facility] BUN 6(L) 8 - 25 mg/dL [facility] Creatinine 0.70(L) 0.80 - 1.30 mg/dL [facility] Glucose 93 70 - 199 mg/dL [facility] Comment: Interpretive Data Fasting glucose >/= 126 [...] 2017. Calcium 8.5 8.5 - 10.3 mg/dL [facility] Phosphorus, pl 4.2 2.3 - 4.5 mg/dL [facility] Albumin 3.2(L) 3.5 - 5.0 g/dL [facility] Blood 11/27/2021 5:56 AM CDT 11/27/2021 6:16 AM CDT Kenroy Horan MD LAB BLOOD ORDERABLES Final R esult [facility] [address] [place] [address] * POCT glucose (11/27/2021 1:30 AM CDT) Glucose, POC 110 70 - 140 mg/dL [facility] Comment: For Glucose values <35 mg/dl when Hematocrit is >60 mg/dl,the test may not accurately detect significant hypoglycemia,and testing in the Laboratory should be considered if clinically indicated. Blood 11/27/2021 1:30 AM CDT 11/27/2021 1:30 AM CDT us Dequan Nunez MD LAB POCT ORDERABLES - DEVICE Final Result Performing Organization Address [facility]/ZIP Co de Phone Number [facility] [address] [facility] [address] [place], [place] [id number] * POCT glucose (11/26/2021 9:00 PM CDT) Glucose, POC 129 70 - 140 mg/dL [facility] Comment: For Glucose values <35 mg/dl when Hematocrit is >60 mg/dl,the test may not accurately detect significant hypoglycemia,and testing in the Laboratory should be considered if clinically indicated. Blood 11/26/2021 9:00 PM CDT 11/26/2021 9:00 PM CDT Dequan Nunez MD LAB POCT ORDERABLES - DEVICE Final Result Performing Organization Address [facility] Co de Phone Number [facility] [address] [facility] [place] [address] * POCT glucose (11/26/2021 5:20 PM CDT) Glucose, POC 95 70 - 140 mg/dL [facility] Comment: For Glucose values <35 mg/dl when Hematocrit is >60 mg/dl,the test may not accurately detect significant hypoglycemia,and testing in the Laboratory should be considered if clinically indicated. Blood 11/26/2021 5:20 PM CDT 11/26/2021 5:20 PM CDT Dequan Nunez MD LAB POCT ORDERABLES - DEVICE Final Result Performing Organization Address [facility] Co de Phone Number [facility] [address] [facility] [address] [place], [place] [id number] * (ABNORMAL) POCT glucose (11/26/2021 2:11 PM CDT) Glucose, POC 166(H) 70 - 140 mg/dL [facility] Comment: For Glucose values <35 mg/dl when Hematocrit is >60 mg/dl,the test may not accurately detect significant hypoglycemia,and testing in the Laboratory should be considered if clinically indicated. Blood 11/26/2021 2:11 PM CDT 11/26/2021 2:11 PM CDT Dequan Nunez MD LAB POCT ORDERABLES - DEVICE Final Result Performing Organization Address [facility] Co de Phone Number [facility] [address] [facility] [place] [address] * POCT glucose (11/26/2021 12:40 PM CDT) Glucose, POC 110 70 - 140 mg/dL [facility] Comment: For Glucose values <35 mg/dl when Hematocrit is >60 mg/dl,the test may not accurately detect significant hypoglycemia,and testing in the Laboratory should be considered if clinically indicated. Blood 11/26/2021 12:4 0 PM CDT 11/26/2021 12:40 PM CDT Result [facility] Dequan Nunez MD LAB POCT ORDERABLES - DEVICE Final Result Performing Organization Address [facility] de Phone Number [facility] [address] [place] [address] * POCT glucose (11/26/2021 11:16 AM CDT) Glucose, POC 116 70 - 140 mg/dL [facility] Comment: For Glucose values <35 mg/dl when Hematocrit is >60 mg/dl,the test may not accurately detect significant hypoglycemia,and testing in the Laboratory should be considered if clinically indicated. Blood 11/26/2021 11:1 6 AM CDT 11/26/2021 11:16 AM CDT Dequan Nunez MD LAB POCT ORDERABLES - DEVICE Final Result Performing Organization Address [facility] Co de Phone Number [facility] [address] [facility] [place] [address] * (ABNORMAL) POCT glucose (11/26/2021 9:51 AM CDT) Glucose, POC 146(H) 70 - 140 mg/dL [facility] Comment: For Glucose values <35 mg/dl when Hematocrit is >60 mg/dl,the test may not accurately detect significant hypoglycemia,and testing in the Laboratory should be considered if clinically indicated. Blood 11/26/2021 9:51 AM CDT 11/26/2021 9:51 AM CDT Dequan Nunez MD LAB POCT ORDERABLES - DEVICE Final Result Performing Organization Address [facility] Co de Phone Number [facility] [address] [facility] [place] [address] * POCT glucose (11/26/2021 8:24 AM CDT) Glucose, POC 140 70 - 140 mg/dL [facility] Comment: For Glucose values <35 mg/dl when Hematocrit is >60 mg/dl,the test may not accurately detect significant hypoglycemia,and testing in the Laboratory should be considered if clinically indicated. Blood 11/26/2021 8:24 AM CDT 11/26/2021 8:24 AM CDT Dequan Nunez MD LAB POCT ORDERABLES - DEVICE Final Result Performing Organization Address City/[facility]/ZIP Co de Phone Number [facility] [address] [facility] [place] [address] * POCT glucose (11/26/2021 6:31 AM CDT) Glucose, POC 129 70 - 140 mg/dL [facility] Comment: For Glucose values <35 mg/dl when Hematocrit is >60 mg/dl,the test may not accurately detect significant hypoglycemia,and testing in the Laboratory should be considered if clinically indicated. Blood 11/26/2021 6:31 AM CDT 11/26/2021 6:31 AM CDT Dequan Nunez MD LAB POCT ORDERABLES - DEVICE Final Result Performing Organization Address [facility] Co de Phone Number [facility] [address] [facility] [place] [address] * POCT glucose (11/26/2021 4:40 AM CDT) Glucose, POC 128 70 - 140 mg/dL [facility] Comment: For Glucose values <35 mg/dl when Hematocrit is >60 mg/dl,the test may not accurately detect significant hypoglycemia,and testing in the Laboratory should be considered if clinically indicated. Blood 11/26/2021 4:40 AM CDT 11/26/2021 4:40 AM CDT Dequan Nunez MD LAB POCT ORDERABLES - DEVICE Final Result Performing Organization Address [facility] de Phone Number [facility] [address] [facility] [place] [address] * POCT glucose (11/26/2021 3:02 AM CDT) Glucose, POC 125 70 - 140 mg/dL [facility] Comment: For Glucose values <35 mg/dl when Hematocrit is >60 mg/dl,the test may not accurately detect significant hypoglycemia,and testing in the Laboratory should be considered if clinically indicated. Blood 11/26/2021 3:02 AM CDT 11/26/2021 3:02 AM CDT Dequan Nunez MD LAB POCT ORDERABLES - DEVICE Final Result Performing Organization Address [facility] Co de Phone Number [facility] [address] [facility] [place] [address] * eGFR (11/26/2021 2:01 AM CDT) eGFR 120 mL/min/1. 73 m2 [facility] Comment: Interpretive Data Reference Interval Normal ?>/= [...] LAB BLOOD ORDERABLES Final R esult [facility] [address] [place] [address] * (ABNORMAL) Triglycerides (11/26/2021 2:01 AM CDT) Triglycerides 1,310(H) <=149 mg/dL [facility] Comment: Interpretive Data Ages < or [...] MD LAB BLOOD ORDERABLES Final R esult [facility] [address] [place] [address] * (ABNORMAL) CBC without differential (11/26/2021 2:01 AM CDT) WBC 3.4(L) 3.8 - 9.9 K/cumm [facility] Hgb 13.7 13.0 - 17.5 g/dL [facility] Hct 37.4(L) 38.9 - 50.3 % [facility] Plt 166 150 - 400 K/cumm [facility] MPV 10.2 9.1 - 12.3 fL [facility] RBC 4.52 4.30 - 5.80 M/cumm [facility] MCV 82.7 81.3 - 96.4 fL [facility] MCH 30.3 27.1 - 33.3 pg [facility] MCHC 36.6(H) 32.3 - 35.7 g/dL [facility] RDW CV 14.0 11.1 - 14.9 % [facility] RDW SD 41.6 35.7 - 48.1 fL [facility] NRBC abs 0.00 0.00 - 0.01 K/cumm [facility] Blood 11/26/2021 2:01 AM CDT 11/26/2021 2:44 AM CDT Kenroy Horan MD LAB BLOOD ORDERABLES Final R esult Performing Organization Address City/[facility]/ZIP Co de Phone Number [facility] [address] [place] [address] * Magnesium (11/26/2021 2:01 AM CDT) Pathologist [facility] Magnesium 1.8 1.4 - 2.5 mg/dL [facility] Blood 11/26/2021 2:01 AM CDT 11/26/2021 2:44 AM CDT Kenroy Horan MD LAB BLOOD ORDERABLES Final R esult Performing Organization Address City/[facility] Co de Phone Number [facility] [address] [place] [address] * (ABNORMAL) Renal function panel (11/26/2021 2:01 AM CDT) Sodium 136 135 - 145 mmol/L [facility] Potassium, pl 3.3 3.3 - 4.9 mmol/L [facility] Chloride 104 97 - 110 mmol/L [facility] CO2 23 22 - 32 mmol/L [facility] Anion gap 9 2 - 15 mmol/L [facility] BUN 7(L) 8 - 25 mg/dL [facility] Creatinine 0.92 0.80 - 1.30 mg/dL [facility] Glucose 154 70 - 199 mg/dL [facility] Comment: Interpretive Data Fasting glucose >/= 126 [...] 2017. Calcium 8.5 8.5 - 10.3 mg/dL [facility] Phosphorus, pl 4.2 2.3 - 4.5 mg/dL [facility] Albumin 3.4(L) 3.5 - 5.0 g/dL [facility] Blood 11/26/2021 2:01 AM CDT 11/26/2021 2:44 AM CDT Kenroy Horan MD LAB BLOOD ORDERABLES Final R esult Performing Organization Address [facility] Co de Phone Number [facility] [address] [place] [address] * (ABNORMAL) POCT glucose (11/26/2021 1:22 AM CDT) Glucose, POC 151(H) 70 - 140 mg/dL [facility] Comment: For Glucose values <35 mg/dl when Hematocrit is >60 mg/dl,the test may not accurately detect significant hypoglycemia,and testing in the Laboratory should be considered if clinically indicated. Blood 11/26/2021 1:22 AM CDT 11/26/2021 1:22 AM CDT Dequan Nunez MD LAB POCT ORDERABLES - DEVICE Final Result Performing Organization Address [facility] Co de Phone Number [facility] [address] [place] [address] * (ABNORMAL) POCT glucose (11/26/2021 12:02 AM CDT) Glucose, POC 180(H) 70 - 140 mg/dL [facility] Comment: For Glucose values <35 mg/dl when Hematocrit is >60 mg/dl,the test may not accurately detect significant hypoglycemia,and testing in the Laboratory should be considered if clinically indicated. Blood 11/26/2021 12:0 2 AM CDT 11/26/2021 12:02 AM CDT Dequan Nunez MD LAB POCT ORDERABLES - DEVICE Final Result Performing Organization Address [facility] Co de Phone Number [facility] [address] [place] [address] * (ABNORMAL) POCT glucose (11/25/2021 11:00 PM CDT) Glucose, POC 141(H) 70 - 140 mg/dL [facility] Comment: For Glucose values <35 mg/dl when Hematocrit is >60 mg/dl,the test may not accurately detect significant hypoglycemia,and testing in the Laboratory should be considered if clinically indicated. Blood 11/25/2021 11:0 0 PM CDT 11/25/2021 11:00 PM CDT Dequan Nunez MD LAB POCT ORDERABLES - DEVICE Final Result Performing Organization Address [facility] de Phone Number [facility] [address] [facility] [place] [address] * POCT glucose (11/25/2021 9:37 PM CDT) Glucose, POC 133 70 - 140 mg/dL [facility] Comment: For Glucose values <35 mg/dl when Hematocrit is >60 mg/dl,the test may not accurately detect significant hypoglycemia,and testing in the Laboratory should be considered if clinically indicated. Blood 11/25/2021 9:37 PM CDT 11/25/2021 9:37 PM CDT Dequan Nunez MD LAB POCT ORDERABLES - DEVICE Final Result Performing Organization Address [facility] Co de Phone Number [facility] [address] [facility] [address], [place] [id number] * (ABNORMAL) POCT glucose (11/25/2021 8:11 PM CDT) Glucose, POC 165(H) 70 - 140 mg/dL [facility] Comment: For Glucose values <35 mg/dl when Hematocrit is >60 mg/dl,the test may not accurately detect significant hypoglycemia,and testing in the Laboratory should be considered if clinically indicated. Blood 11/25/2021 8:11 PM CDT 11/25/2021 8:11 PM CDT Dequan Nunez MD LAB POCT ORDERABLES - DEVICE Final Result Performing Organization Address [facility] de Phone Number [facility] [address] [facility] [place] [address] * (ABNORMAL) POCT glucose (11/25/2021 6:31 PM CDT) Glucose, POC 204(H) 70 - 140 mg/dL [facility] Comment: For Glucose values <35 mg/dl when Hematocrit is >60 mg/dl,the test may not accurately detect significant hypoglycemia,and testing in the Laboratory should be considered if clinically indicated. Blood 11/25/2021 6:31 PM CDT 11/25/2021 6:31 PM CDT Dequan Nunez MD LAB POCT ORDERABLES - DEVICE Final Result Performing Organization Address [facility] Co de Phone Number [facility] [address] [facility] [place] [address] * POCT glucose (11/25/2021 5:40 PM CDT) Glucose, POC 111 70 - 140 mg/dL [facility] Comment: For Glucose values <35 mg/dl when Hematocrit is >60 mg/dl,the test may not accurately detect significant hypoglycemia,and testing in the Laboratory should be considered if clinically indicated. Blood 11/25/2021 5:40 PM CDT 11/25/2021 5:40 PM CDT Dequan Nunez MD LAB POCT ORDERABLES - DEVICE Final Result Performing Organization Address [facility] Co de Phone Number [facility] [address] [facility] [place] [address] * POCT glucose (11/25/2021 4:39 PM CDT) Glucose, POC 110 70 - 140 mg/dL [facility] Comment: For Glucose values <35 mg/dl when Hematocrit is >60 mg/dl,the test may not accurately detect significant hypoglycemia,and testing in the Laboratory should be considered if clinically indicated. Blood 11/25/2021 4:39 PM CDT 11/25/2021 4:39 PM CDT Dequan Nunez MD LAB POCT ORDERABLES - DEVICE Final Result Performing Organization Address [facility] de Phone Number [facility] [address] [facility] [place] [address] * POCT glucose (11/25/2021 3:41 PM CDT) Glucose, POC 124 70 - 140 mg/dL [facility] Comment: For Glucose values <35 mg/dl when Hematocrit is >60 mg/dl,the test may not accurately detect significant hypoglycemia,and testing in the Laboratory should be considered if clinically indicated. Blood 11/25/2021 3:41 PM CDT 11/25/2021 3:41 PM CDT Dequan Nunez MD LAB POCT ORDERABLES - DEVICE Final Result Performing Organization Address [facility] Co de Phone Number [facility] [address] [facility] [address] [place], [place] [id number] * (ABNORMAL) POCT glucose (11/25/2021 2:49 PM CDT) Glucose, POC 162(H) 70 - 140 mg/dL [facility] Comment: For Glucose values <35 mg/dl when Hematocrit is >60 mg/dl,the test may not accurately detect significant hypoglycemia,and testing in the Laboratory should be considered if clinically indicated. Blood 11/25/2021 2:49 PM CDT 11/25/2021 2:49 PM CDT Dequan Nunez MD LAB POCT ORDERABLES - DEVICE Final Result Performing Organization Address [facility] Co de Phone Number [facility] [address] [facility] [place] [address] * (ABNORMAL) POCT glucose (11/25/2021 1:42 PM CDT) Glucose, POC 191(H) 70 - 140 mg/dL [facility] Comment: For Glucose values <35 mg/dl when Hematocrit is >60 mg/dl,the test may not accurately detect significant hypoglycemia,and testing in the Laboratory should be considered if clinically indicated. Blood 11/25/2021 1:42 PM CDT 11/25/2021 1:42 PM CDT Result [facility] Dequan Nunez MD LAB POCT ORDERABLES - DEVICE Final Result Performing Organization Address [facility] de Phone Number [facility] [address] [facility] [place] [address] * (ABNORMAL) POCT glucose (11/25/2021 12:44 PM CDT) Glucose, POC 163(H) 70 - 140 mg/dL [facility] Comment: For Glucose values <35 mg/dl when Hematocrit is >60 mg/dl,the test may not accurately detect significant hypoglycemia,and testing in the Laboratory should be considered if clinically indicated. Blood 11/25/2021 12:4 4 PM CDT 11/25/2021 12:44 PM CDT Result [facility] Dequan Nunez MD LAB POCT ORDERABLES - DEVICE Final Result Performing Organization Address [facility] Co de Phone Number [facility] [address] [facility] [place] [address] * (ABNORMAL) POCT glucose (11/25/2021 11:46 AM CDT) Glucose, POC 167(H) 70 - 140 mg/dL [facility] Comment: For Glucose values <35 mg/dl when Hematocrit is >60 mg/dl,the test may not accurately detect significant hypoglycemia,and testing in the Laboratory should be considered if clinically indicated. Blood 11/25/2021 11:4 6 AM CDT 11/25/2021 11:46 AM CDT Dequan Nunez MD LAB POCT ORDERABLES - DEVICE Final Result Performing Organization Address [facility] de Phone Number [facility] [address] [facility] [place] [address] * (ABNORMAL) POCT glucose (11/25/2021 10:37 AM CDT) Glucose, POC 168(H) 70 - 140 mg/dL [facility] Comment: For Glucose values <35 mg/dl when Hematocrit is >60 mg/dl,the test may not accurately detect significant hypoglycemia,and testing in the Laboratory should be considered if clinically indicated. Blood 11/25/2021 10:3 7 AM CDT 11/25/2021 10:37 AM CDT Dequan Nunez MD LAB POCT ORDERABLES - DEVICE Final Result Performing Organization Address [facility] Co de Phone Number [facility] [address] [facility] [place] [address] * (ABNORMAL) POCT glucose (11/25/2021 9:43 AM CDT) Glucose, POC 211(H) 70 - 140 mg/dL [facility] Comment: For Glucose values <35 mg/dl when Hematocrit is >60 mg/dl,the test may not accurately detect significant hypoglycemia,and testing in the Laboratory should be considered if clinically indicated. Blood 11/25/2021 9:43 AM CDT 11/25/2021 9:43 AM CDT Dequan Nunez MD LAB POCT ORDERABLES - DEVICE Final Result Performing Organization Address [facility] Co de Phone Number [facility] [address] [place] [address] * (ABNORMAL) POCT glucose (11/25/2021 8:49 AM CDT) Glucose, POC 176(H) 70 - 140 mg/dL [facility] Comment: For Glucose values <35 mg/dl when Hematocrit is >60 mg/dl,the test may not accurately detect significant hypoglycemia,and testing in the Laboratory should be considered if clinically indicated. Blood 11/25/2021 8:49 AM CDT 11/25/2021 8:49 AM CDT Result [facility] Dequan Nunez MD LAB POCT ORDERABLES - DEVICE Final Result Performing Organization Address [facility] de Phone Number [facility] [address] Department [employer] [place] [address] * Blood culture Blood (11/25/2021 8:34 AM CDT) Pathologist [facility] Report Final Report: No growth [facility] Blood 11/25/2021 8:34 AM CDT 11/25/2021 8:55 AM CDT Narrative [facility] - 11/30/2021 1:01 PM CDT From a different site than #1. Kenroy Horan MD LAB MICROBIOLOGY - GENERAL O RDERABLES Final Result Performing Organization Address [facility] Co de Phone Number [facility] [address] [place] [address] * Blood culture Blood (11/25/2021 8:34 AM CDT) Report Final Report: No growth [facility] Blood 11/25/2021 8:34 AM CDT 11/25/2021 8:55 AM CDT Kenroy Horan MD LAB MICROBIOLOGY - GENERAL O RDERABLES Final Result Performing Organization Address [facility] Co de Phone Number [facility] [address] [facility] [place] [address] * (ABNORMAL) POCT glucose (11/25/2021 7:39 AM CDT) Glucose, POC 167(H) 70 - 140 mg/dL [facility] Comment: For Glucose values <35 mg/dl when Hematocrit is >60 mg/dl,the test may not accurately detect significant hypoglycemia,and testing in the Laboratory should be considered if clinically indicated. Blood 11/25/2021 7:39 AM CDT 11/25/2021 7:39 AM CDT Dequan Nunez MD LAB POCT ORDERABLES - DEVICE Final Result Performing Organization Address [facility] de Phone Number [facility] [address] [facility] [place] [address] * (ABNORMAL) POCT glucose (11/25/2021 6:04 AM CDT) Glucose, POC 151(H) 70 - 140 mg/dL [facility] Comment: For Glucose values <35 mg/dl when Hematocrit is >60 mg/dl,the test may not accurately detect significant hypoglycemia,and testing in the Laboratory should be considered if clinically indicated. Blood 11/25/2021 6:04 AM CDT 11/25/2021 6:04 AM CDT Dequan Nunez MD LAB POCT ORDERABLES - DEVICE Final Result Performing Organization Address [facility] Co de Phone Number [facility] [address] [place] [address] * POCT glucose (11/25/2021 5:05 AM CDT) Glucose, POC 125 70 - 140 mg/dL [facility] Comment: For Glucose values <35 mg/dl when Hematocrit is >60 mg/dl,the test may not accurately detect significant hypoglycemia,and testing in the Laboratory should be considered if clinically indicated. Blood 11/25/2021 5:05 AM CDT 11/25/2021 5:05 AM CDT Dequan Nunez MD LAB POCT ORDERABLES - DEVICE Final Result Performing Organization Address [facility] Co de Phone Number [facility] [address] [facility] [place] [address] * POCT glucose (11/25/2021 4:03 AM CDT) Pathologist [facility] Glucose, POC 120 70 - 140 mg/dL [facility] Comment: For Glucose values <35 mg/dl when Hematocrit is >60 mg/dl,the test may not accurately detect significant hypoglycemia,and testing in the Laboratory should be considered if clinically indicated. Blood 11/25/2021 4:03 AM CDT 11/25/2021 4:03 AM CDT Dequan Nunez MD LAB POCT ORDERABLES - DEVICE Final Result Performing Organization Address [facility] Co de Phone Number [facility] [address] [place] [address] * eGFR (11/25/2021 3:22 AM CDT) Pathologist [facility] eGFR 103 mL/min/1. 73 m2 [facility] Comment: Interpretive Data Reference Interval Normal ?>/= [...] MD LAB BLOOD ORDERABLES Final R esult [facility] [address] [place] [address] * (ABNORMAL) CBC without differential (11/25/2021 3:22 AM CDT) WBC 5.7 3.8 - 9.9 K/cumm [facility] Hgb 15.9 13.0 - 17.5 g/dL [facility] Hct 44.0 38.9 - 50.3 % [facility] Plt 224 150 - 400 K/cumm [facility] MPV 9.8 9.1 - 12.3 fL [facility] RBC 5.22 4.30 - 5.80 M/cumm [facility] MCV 84.3 81.3 - 96.4 fL [facility] MCH 30.5 27.1 - 33.3 pg [facility] MCHC 36.1(H) 32.3 - 35.7 g/dL [facility] RDW CV 13.7 11.1 - 14.9 % [facility] RDW SD 41.6 35.7 - 48.1 fL [facility] NRBC abs 0.00 0.00 - 0.01 K/cumm [facility] Blood 11/25/2021 3:22 AM CDT 11/25/2021 3:27 AM CDT Kenroy Horan MD LAB BLOOD ORDERABLES Final R esult Performing Organization Address City/[facility]/ZIP Co de Phone Number [facility] [address] [place] [address] * Magnesium (11/25/2021 3:22 AM CDT) [facility] Magnesium 1.9 1.4 - 2.5 mg/dL [facility] Blood 11/25/2021 3:22 AM CDT 11/25/2021 3:27 AM CDT Kenroy Horan MD LAB BLOOD ORDERABLES Final R esult Performing Organization Address [facility] Co de Phone Number [facility] [address] [employer] [place], [place] [id number] * (ABNORMAL) Renal function panel (11/25/2021 3:22 AM CDT) [facility] Sodium 137 135 - 145 mmol/L [facility] Potassium, pl 3.6 3.3 - 4.9 mmol/L [facility] Comment:Hemolyzed; potassium value may be falsely elevated by as much as 0.3 - 0.5 mmol/L. Suggest redraw and reanalysis Chloride 104 97 - 110 mmol/L [facility] CO2 22 22 - 32 mmol/L [facility] Anion gap 11 2 - 15 mmol/L [facility] BUN 7(L) 8 - 25 mg/dL [facility] Creatinine 1.04 0.80 - 1.30 mg/dL [facility] Glucose 138 70 - 199 mg/dL [facility] Comment: Interpretive Data Fasting glucose >/= 126 [...] 2017. Calcium 9.1 8.5 - 10.3 mg/dL [facility] Phosphorus, pl 2.8 2.3 - 4.5 mg/dL [facility] Albumin 3.8 3.5 - 5.0 g/dL [facility] Blood 11/25/2021 3:22 AM CDT 11/25/2021 3:27 AM CDT Kenroy Horan MD LAB BLOOD ORDERABLES Final R esult Performing Organization Address City/[facility]/ZIP Co de Phone Number [facility] [address] [place] [address] * (ABNORMAL) POCT glucose (11/25/2021 2:58 AM CDT) [facility] Signature Glucose, POC 153(H) 70 - 140 mg/dL [facility] Comment: For Glucose values <35 mg/dl when Hematocrit is >60 mg/dl,the test may not accurately detect significant hypoglycemia,and testing in the Laboratory should be considered if clinically indicated. Blood 11/25/2021 2:58 AM CDT 11/25/2021 2:58 AM CDT Dequan Nunez MD LAB POCT ORDERABLES - DEVICE Final Result [facility] [address] Department [employer] [place] [address] * (ABNORMAL) POCT glucose (11/25/2021 1:41 AM CDT) Glucose, POC 156(H) 70 - 140 mg/dL [facility] Comment: For Glucose values <35 mg/dl when Hematocrit is >60 mg/dl,the test may not accurately detect significant hypoglycemia,and testing in the Laboratory should be considered if clinically indicated. Blood 11/25/2021 1:41 AM CDT 11/25/2021 1:41 AM CDT Dequan Nunez MD LAB POCT ORDERABLES - DEVICE Final Result Performing Organization Address [facility] Co de Phone Number [facility] [address] [facility] [place] [address] * (ABNORMAL) POCT glucose (11/25/2021 12:24 AM CDT) Glucose, POC 206(H) 70 - 140 mg/dL [facility] Comment: For Glucose values <35 mg/dl when Hematocrit is >60 mg/dl,the test may not accurately detect significant hypoglycemia,and testing in the Laboratory should be considered if clinically indicated. Blood 11/25/2021 12:2 4 AM CDT 11/25/2021 12:24 AM CDT Dequan Nunez MD LAB POCT ORDERABLES - DEVICE Final Result Performing Organization Address [facility] Co de Phone Number [facility] [address] [facility] [employer] [place] [address] * (ABNORMAL) POCT glucose (11/24/2021 11:05 PM CDT) Glucose, POC 252(H) 70 - 140 mg/dL [facility] Comment: For Glucose values <35 mg/dl when Hematocrit is >60 mg/dl,the test may not accurately detect significant hypoglycemia,and testing in the Laboratory should be considered if clinically indicated. Blood 11/24/2021 11:0 5 PM CDT 11/24/2021 11:05 PM CDT Dequan Nunez MD LAB POCT ORDERABLES - DEVICE Final Result Performing Organization Address [facility] Co de Phone Number [facility] [address] [facility] [place] [address] * (ABNORMAL) POCT glucose (11/24/2021 9:50 PM CDT) Glucose, POC 206(H) 70 - 140 mg/dL [facility] Comment: For Glucose values <35 mg/dl when Hematocrit is >60 mg/dl,the test may not accurately detect significant hypoglycemia,and testing in the Laboratory should be considered if clinically indicated. Blood 11/24/2021 9:50 PM CDT 11/24/2021 9:50 PM CDT Dequan Nunez MD LAB POCT ORDERABLES - DEVICE Final Result Performing Organization Address [facility] de Phone Number [facility] [address] [facility] [place] [address] * (ABNORMAL) POCT glucose (11/24/2021 8:25 PM CDT) Glucose, POC 181(H) 70 - 140 mg/dL [facility] Comment: For Glucose values <35 mg/dl when Hematocrit is >60 mg/dl,the test may not accurately detect significant hypoglycemia,and testing in the Laboratory should be considered if clinically indicated. Blood 11/24/2021 8:25 PM CDT 11/24/2021 8:25 PM CDT Dequan Nunez MD LAB POCT ORDERABLES - DEVICE Final Result Performing Organization Address [facility] Co de Phone Number [facility] [address] [facility] [place] [address] * (ABNORMAL) POCT glucose (11/24/2021 7:28 PM CDT) Glucose, POC 168(H) 70 - 140 mg/dL [facility] Comment: For Glucose values <35 mg/dl when Hematocrit is >60 mg/dl,the test may not accurately detect significant hypoglycemia,and testing in the Laboratory should be considered if clinically indicated. Blood 11/24/2021 7:28 PM CDT 11/24/2021 7:28 PM CDT Result [facility] Dequan Nunez MD LAB POCT ORDERABLES - DEVICE Final Result Performing Organization Address [facility] de Phone Number [facility] [address] [facility] [place] [address] * (ABNORMAL) POCT glucose (11/24/2021 6:23 PM CDT) Glucose, POC 168(H) 70 - 140 mg/dL [facility] Comment: For Glucose values <35 mg/dl when Hematocrit is >60 mg/dl,the test may not accurately detect significant hypoglycemia,and testing in the Laboratory should be considered if clinically indicated. Blood 11/24/2021 6:23 PM CDT 11/24/2021 6:23 PM CDT Result [facility] Dequan Nunez MD LAB POCT ORDERABLES - DEVICE Final Result Performing Organization Address [facility] de Phone Number [facility] [address] [facility] [place] [address] * (ABNORMAL) POCT glucose (11/24/2021 5:15 PM CDT) Glucose, POC 176(H) 70 - 140 mg/dL [facility] Comment: For Glucose values <35 mg/dl when Hematocrit is >60 mg/dl,the test may not accurately detect significant hypoglycemia,and testing in the Laboratory should be considered if clinically indicated. Blood 11/24/2021 5:15 PM CDT 11/24/2021 5:15 PM CDT Result [facility] Dequan Nunez MD LAB POCT ORDERABLES - DEVICE Final Result Performing Organization Address [facility] Co de Phone Number [facility] [address] [facility] [place] [address] * (ABNORMAL) POCT glucose (11/24/2021 4:19 PM CDT) Glucose, POC 192(H) 70 - 140 mg/dL [facility] Comment: For Glucose values <35 mg/dl when Hematocrit is >60 mg/dl,the test may not accurately detect significant hypoglycemia,and testing in the Laboratory should be considered if clinically indicated. Blood 11/24/2021 4:19 PM CDT 11/24/2021 4:19 PM CDT Dequan Nunez MD LAB POCT ORDERABLES - DEVICE Final Result Performing Organization Address [facility] de Phone Number [facility] [address] [place] [address] * eGFR (11/24/2021 3:40 PM CDT) eGFR 130 mL/min/1. 73 m2 [facility] Comment: Interpretive Data Reference Interval Normal ?>/= [...] MD LAB BLOOD ORDERABLES Final R esult [facility] [address] [place] [address] * (ABNORMAL) Triglycerides (11/24/2021 3:40 PM CDT) Triglycerides >885(H) <=149 mg/dL [facility] Comment: Interpretive Data Ages < or = [...] ORDERABLES Final R esult Performing Organization Address City/[facility]/ZIP Co de Phone Number [facility] [address] [facility] [place], [place] [id number] * Phosphorus (11/24/2021 3:40 PM CDT) Pathologist [facility] Phosphorus, pl 2.8 2.3 - 4.5 mg/dL [facility] Blood 11/24/2021 3:40 PM CDT 11/24/2021 4:05 PM CDT Isidro Leyva MD LAB BLOOD ORDERABLES Final R esult Performing Organization Address [facility] Co de Phone Number [facility] [address] [facility] [place] [address] * Magnesium (11/24/2021 3:40 PM CDT) [facility] Magnesium 1.7 1.4 - 2.5 mg/dL [facility] Blood 11/24/2021 3:40 PM CDT 11/24/2021 4:05 PM CDT us Isidro Leyva MD LAB BLOOD ORDERABLES Final R esult Performing Organization Address [facility] Co de Phone Number [facility] [address] Department [place], [place] [id number] * (ABNORMAL) Basic metabolic panel (11/24/2021 3:40 PM CDT) Pathologist [facility] Sodium 136 135 - 145 mmol/L [facility] Potassium, pl 3.4 3.3 - 4.9 mmol/L [facility] Comment:Hemolyzed; potassium value may be falsely elevated by as much as 0.3 - 0.5 mmol/L. Suggest redraw and reanalysis Chloride 101 97 - 110 mmol/L [facility] CO2 20(L) 22 - 32 mmol/L [facility] Anion gap 15 2 - 15 mmol/L [facility] BUN 9 8 - 25 mg/dL [facility] Creatinine 0.75(L) 0.80 - 1.30 mg/dL [facility] Glucose 162 70 - 199 mg/dL [facility] Comment: Interpretive Data Fasting glucose >/= 126 [...] 2017. Calcium 8.8 8.5 - 10.3 mg/dL [facility] Blood 11/24/2021 3:40 PM CDT 11/24/2021 4:05 PM CDT us Isidro Leyva MD LAB BLOOD ORDERABLES Final R esult [facility] [address] [place] [address] * (ABNORMAL) POCT glucose (11/24/2021 3:28 PM CDT) [facility] Signature Glucose, POC 167(H) 70 - 140 mg/dL [facility] Comment: For Glucose values <35 mg/dl when Hematocrit is >60 mg/dl,the test may not accurately detect significant hypoglycemia,and testing in the Laboratory should be considered if clinically indicated. Blood 11/24/2021 3:28 PM CDT 11/24/2021 3:28 PM CDT us Dequan Nunez MD LAB POCT ORDERABLES - DEVICE Final Result [facility] [address] Department [employer] [place] [address] * (ABNORMAL) POCT glucose (11/24/2021 2:20 PM CDT) Glucose, POC 154(H) 70 - 140 mg/dL [facility] Comment: For Glucose values <35 mg/dl when Hematocrit is >60 mg/dl,the test may not accurately detect significant hypoglycemia,and testing in the Laboratory should be considered if clinically indicated. Blood 11/24/2021 2:20 PM CDT 11/24/2021 2:20 PM CDT Dequan Nunez MD LAB POCT ORDERABLES - DEVICE Final Result Performing Organization Address [facility] Co de Phone Number [facility] [address] [facility] [place] [address] * (ABNORMAL) POCT glucose (11/24/2021 1:18 PM CDT) Glucose, POC 142(H) 70 - 140 mg/dL [facility] Comment: For Glucose values <35 mg/dl when Hematocrit is >60 mg/dl,the test may not accurately detect significant hypoglycemia,and testing in the Laboratory should be considered if clinically indicated. Blood 11/24/2021 1:18 PM CDT 11/24/2021 1:18 PM CDT Dequan Nunez MD LAB POCT ORDERABLES - DEVICE Final Result Performing Organization Address [facility] Co de Phone Number [facility] [address] [facility] [place] [address] * (ABNORMAL) POCT glucose (11/24/2021 12:14 PM CDT) Glucose, POC 186(H) 70 - 140 mg/dL [facility] Comment: For Glucose values <35 mg/dl when Hematocrit is >60 mg/dl,the test may not accurately detect significant hypoglycemia,and testing in the Laboratory should be considered if clinically indicated. Blood 11/24/2021 12:1 4 PM CDT 11/24/2021 12:14 PM CDT Dequan Nunez MD LAB POCT ORDERABLES - DEVICE Final Result Performing Organization Address [facility] Co de Phone Number [facility] [address] [facility] [place] [address] * (ABNORMAL) POCT glucose (11/24/2021 11:19 AM CDT) Glucose, POC 202(H) 70 - 140 mg/dL [facility] Comment: For Glucose values <35 mg/dl when Hematocrit is >60 mg/dl,the test may not accurately detect significant hypoglycemia,and testing in the Laboratory should be considered if clinically indicated. Blood 11/24/2021 11:1 9 AM CDT 11/24/2021 11:19 AM CDT Dequan Nunez MD LAB POCT ORDERABLES - DEVICE Final Result Performing Organization Address [facility] de Phone Number [facility] [address] [facility] [place] [address] * (ABNORMAL) POCT glucose (11/24/2021 10:04 AM CDT) Glucose, POC 190(H) 70 - 140 mg/dL [facility] Comment: For Glucose values <35 mg/dl when Hematocrit is >60 mg/dl,the test may not accurately detect significant hypoglycemia,and testing in the Laboratory should be considered if clinically indicated. Blood 11/24/2021 10:0 4 AM CDT 11/24/2021 10:04 AM CDT Dequan Nunez MD LAB POCT ORDERABLES - DEVICE Final Result Performing Organization Address [facility] Co de Phone Number [facility] [address] [place] [address] * (ABNORMAL) POCT glucose (11/24/2021 8:54 AM CDT) Pathologist [facility] Glucose, POC 201(H) 70 - 140 mg/dL [facility] Comment: For Glucose values <35 mg/dl when Hematocrit is >60 mg/dl,the test may not accurately detect significant hypoglycemia,and testing in the Laboratory should be considered if clinically indicated. Blood 11/24/2021 8:54 AM CDT 11/24/2021 8:54 AM CDT Dequan Nunez MD LAB POCT ORDERABLES - DEVICE Final Result Performing Organization Address [facility] Co de Phone Number [facility] [address] [employer] [place], [place] [id number] * Lipase - Add on lab test (11/24/2021 8:03 AM CDT) [facility] Acceptable Yes [facility] Blood 11/24/2021 8:03 AM CDT 11/24/2021 8:03 AM CDT Narrative [facility] - 11/24/2021 8:03 AM CDT Name of Test->Lipase Kenroy Horan MD LAB BLOOD ORDERABLES Final R esult Performing Organization Address [facility] Co de Phone Number [facility] [address] [employer] [place], [place] [id number] * Amylase - Add on lab test (11/24/2021 8:03 AM CDT) [facility] Acceptable Yes [facility] Blood 11/24/2021 8:03 AM CDT 11/24/2021 8:03 AM CDT Narrative [facility] - 11/24/2021 8:04 AM CDT Name of Test->Amylase Kenroy Horan MD LAB BLOOD ORDERABLES Final R esult Performing Organization Address [facility] Co de Phone Number [facility] [address] Department [employer] [place], [place] [phone] * (ABNORMAL) POCT glucose (11/24/2021 7:48 AM CDT) Glucose, POC 223(H) 70 - 140 mg/dL [facility] Comment: For Glucose values <35 mg/dl when Hematocrit is >60 mg/dl,the test may not accurately detect significant hypoglycemia,and testing in the Laboratory should be considered if clinically indicated. Blood 11/24/2021 7:48 AM CDT 11/24/2021 7:48 AM CDT Dequan Nunez MD LAB POCT ORDERABLES - DEVICE Final Result Performing Organization Address [facility] Co de Phone Number [facility] [address] [facility] [place] [address] * BMP - Add on lab test (11/24/2021 7:15 AM CDT) [facility] Acceptable Yes [facility] Blood 11/24/2021 7:15 AM CDT 11/24/2021 7:15 AM CDT Narrative [facility] - 11/24/2021 7:15 AM CDT Name of Test->BMP Kenroy Horan MD LAB BLOOD ORDERABLES Final R esult Performing Organization Address [facility] Co de Phone Number [facility] [address] [place] [address] * Lipase (11/24/2021 6:49 AM CDT) [facility] Lipase 27 10 - 99 Units/L [facility] Blood 11/24/2021 6:49 AM CDT 11/24/2021 6:52 AM CDT Dequan Nunez MD LAB BLOOD ORDERABLES Final R esult Performing Organization Address City/[facility] Co de Phone Number [facility] [address] [place] [address] * (ABNORMAL) Amylase (11/24/2021 6:49 AM CDT) Amylase 22(L) 30 - 99 Units/L [facility] Blood 11/24/2021 6:49 AM CDT 11/24/2021 6:52 AM CDT us Dequan Nunez MD LAB BLOOD ORDERABLES Final R esult [facility] [address] [place] [address] * eGFR (11/24/2021 6:49 AM CDT) eGFR 148 mL/min/1. 73 m2 [facility] Comment: Interpretive Data Reference Interval Normal ?>/= [...] ORDERABLES Final R esult Performing Organization Address City/[facility]/ZIP Co de Phone Number [facility] [address] [place] [address] * (ABNORMAL) Basic metabolic panel (11/24/2021 6:49 AM CDT) Sodium 132(L) 135 - 145 mmol/L [facility] Potassium, pl 3.6 3.3 - 4.9 mmol/L [facility] Comment:Hemolyzed; potassium value may be falsely elevated by as much as 0.6 - 1.0 mmol/L. Suggest redraw and reanalysis Chloride 100 97 - 110 mmol/L [facility] CO2 18(L) 22 - 32 mmol/L [facility] Anion gap 14 2 - 15 mmol/L [facility] BUN 9 8 - 25 mg/dL [facility] Creatinine 0.49(L) 0.80 - 1.30 mg/dL [facility] Glucose 229(H) 70 - 199 mg/dL [facility] Comment: Interpretive Data Fasting glucose >/= 126 [...] 2017. Calcium 8.2(L) 8.5 - 10.3 mg/dL [facility] Blood 11/24/2021 6:49 AM CDT 11/24/2021 6:52 AM CDT Dequan Nunez MD LAB BLOOD ORDERABLES Final R vuult Performing Organization Address City/[facility]/ZIP Co de Phone Number [facility] [address] [place] [address] * (ABNORMAL) Triglycerides (11/24/2021 6:49 AM CDT) Pathologist [facility] Triglycerides 2,291(H) <=149 mg/dL [facility] Comment: Interpretive Data Ages < or = [...] MD LAB BLOOD ORDERABLES Final R esult [facility] [address] [place] [address] * (ABNORMAL) POCT glucose (11/24/2021 6:06 AM CDT) Glucose, POC 256(H) 70 - 140 mg/dL [facility] Comment: For Glucose values <35 mg/dl when Hematocrit is >60 mg/dl,the test may not accurately detect significant hypoglycemia,and testing in the Laboratory should be considered if clinically indicated. Blood 11/24/2021 6:06 AM CDT 11/24/2021 6:06 AM CDT Dequan Nunez MD LAB POCT ORDERABLES - DEVICE Final Result Performing Organization Address [facility] Co de Phone Number [facility] [address] [facility] [place], [place] [phone] * (ABNORMAL) POCT glucose (11/24/2021 5:12 AM CDT) Glucose, POC 265(H) 70 - 140 mg/dL [facility] Comment: For Glucose values <35 mg/dl when Hematocrit is >60 mg/dl,the test may not accurately detect significant hypoglycemia,and testing in the Laboratory should be considered if clinically indicated. Blood 11/24/2021 5:12 AM CDT 11/24/2021 5:12 AM CDT Dequan Nunez MD LAB POCT ORDERABLES - DEVICE Final Result Performing Organization Address [facility] Co de Phone Number [facility] [address] [facility] [place], [place] [id number] * Phosphorus (11/24/2021 4:36 AM CDT) Phosphorus, pl 3.4 2.3 - 4.5 mg/dL [facility] Blood 11/24/2021 4:36 AM CDT 11/24/2021 4:36 AM CDT Dequan Nunez MD LAB BLOOD ORDERABLES Final R esult Performing Organization Address [facility] Co de Phone Number [facility] [address] [facility] [place] [address] * Magnesium (11/24/2021 4:36 AM CDT) Magnesium 1.5 1.4 - 2.5 mg/dL [facility] Blood 11/24/2021 4:36 AM CDT 11/24/2021 4:36 AM CDT us Isidro Leyva MD LAB BLOOD ORDERABLES Final R esult Performing Organization Address [facility] Co de Phone Number [facility] [address] Department [employer] [place], [place] [phone] * (ABNORMAL) POCT glucose (11/24/2021 4:07 AM CDT) Glucose, POC 266(H) 70 - 140 mg/dL [facility] Comment: For Glucose values <35 mg/dl when Hematocrit is >60 mg/dl,the test may not accurately detect significant hypoglycemia,and testing in the Laboratory should be considered if clinically indicated. Blood 11/24/2021 4:07 AM CDT 11/24/2021 4:07 AM CDT Dequna Nunez MD LAB POCT ORDERABLES - DEVICE Final Result Performing Organization Address [facility] de Phone Number [facility] [address] Department [employer] [place] [address] * eGFR (11/24/2021 3:58 AM CDT) eGFR 140 mL/min/1. 73 m2 [facility] Comment: Interpretive Data Reference Interval Normal ?>/= [...] AM CDT 11/24/2021 4:36 AM CDT Isidro eLyva MD LAB BLOOD ORDERABLES Final R esult Performing Organization Address [facility] Co de Phone Number [facility] [address] [place] [address] * Phosphorus (11/24/2021 3:58 AM CDT) Phosphorus, pl See Comment 2.3 - 4.5 [facility] Comment:Test results inaccur ately filed to this patient's record. Test will be credited. Blood 11/24/2021 3:58 AM CDT 11/24/2021 4:36 AM CDT Isidro Leyva MD LAB BLOOD ORDERABLES Final R esult Performing Organization Address [facility] Co de Phone Number [facility] [address] [place] [address] * (ABNORMAL) Basic metabolic panel (11/24/2021 3:58 AM CDT) Sodium 130(L) 135 - 145 mmol/L [facility] Potassium, pl See Comment 3.3 - 4.9 [facility] Comment:Specimen hemolyzed. See whole blood potassium result. Chloride 98 97 - 110 mmol/L [facility] CO2 19(L) 22 - 32 mmol/L [facility] Anion gap 13 2 - 15 mmol/L [facility] BUN 11 8 - 25 mg/dL [facility] Creatinine 0.59(L) 0.80 - 1.30 mg/dL [facility] Glucose 252(H) 70 - 199 mg/dL [facility] Comment: Interpretive Data Fasting glucose >/= 126 [...] 2017. Calcium 8.1(L) 8.5 - 10.3 mg/dL [facility] Blood 11/24/2021 3:58 AM CDT 11/24/2021 4:36 AM CDT us Isidro Leyva MD LAB BLOOD ORDERABLES Final R esult Performing Organization Address City/[facility] Co de Phone Number [facility] [address] Department [employer] [place] [address] * Magnesium (11/24/2021 3:58 AM CDT) Magnesium 1.6 1.4 - 2.5 mg/dL [facility] Blood 11/24/2021 3:58 AM CDT 11/24/2021 4:36 AM CDT Isidro Leyva MD LAB BLOOD ORDERABLES Final R esult Performing Organization Address City/[facility]/ZIP Co de Phone Number [facility] [address] [place] [address] * (ABNORMAL) CBC without differential (11/24/2021 3:58 AM CDT) WBC 4.2 3.8 - 9.9 K/cumm [facility] Hgb 14.8 13.0 - 17.5 g/dL [facility] Hct 38.1(L) 38.9 - 50.3 % [facility] Plt 216 150 - 400 K/cumm [facility] MPV 9.6 9.1 - 12.3 fL [facility] RBC 4.74 4.30 - 5.80 M/cumm [facility] MCV 80.4(L) 81.3 - 96.4 fL [facility] MCH 31.2 27.1 - 33.3 pg [facility] MCHC 38.8(H) 32.3 - 35.7 g/dL [facility] RDW CV 13.2 11.1 - 14.9 % [facility] RDW SD 37.6 35.7 - 48.1 fL [facility] NRBC abs 0.00 0.00 - 0.01 K/cumm [facility] Blood 11/24/2021 3:58 AM CDT 11/24/2021 4:35 AM CDT us Isidro Leyva MD LAB BLOOD ORDERABLES Edited Result - Final [facility] [address] [place] [address] * (ABNORMAL) Urinalysis, microscopic only (11/24/2021 3:10 AM CDT) Pathologist [facility] WBC, ur 0-5 0 - 5 /HPF [facility] RBC, ur 0-2 0 - 2 /HPF [facility] Epithelial cells, squamous, ur 1-5 0 - 5 /HPF [facility] Bacteria, ur Trace(A) [facility] Mucous, ur Present(A) [facility] Culture Reflex Comment Reflex conditions for urine culture (WBC >10) not met. [facility] Urine 11/24/2021 3:10 AM CDT 11/24/2021 3:29 AM CDT us Isidro Leyva MD LAB URINE ORDERABLES Final R esult Performing Organization Address [facility]/ZIP Co de Phone Number [facility] [address] [place] [address] * (ABNORMAL) Urinalysis reflex to microscopic and culture Urine (11/24/2021 3:10 AM CDT) Color, ur Yellow Yellow [facility] Clarity, ur Clear Clear [facility] Specific gravity, ur 1.026 1.003 - 1.030 [facility] pH, urine 5.5 [facility] Protein, ur ql 1+(A) Negative [facility] Glucose, ur ql 4+(A) Negative [facility] Ketones, ur 4+(A) Negative [facility] Bilirubin, ur Negative Negative [facility] Blood, ur Negative Negative [facility] Urobilinogen, ur <2.0 <2.0 mg/dL [facility] Nitrite, ur Negative Negative [facility] Leukocyte esterase, ur Negative Negative [facility] UA reflex comment Reflex to microscopic UA will be performed. [facility] Urine 11/24/2021 3:10 AM CDT 11/24/2021 3:29 AM CDT Narrative [facility] - 11/24/2021 3:32 AM CDT ?? Urine pH is affected by diet, medications, systemic acid-base disturbances, and renal tubular function. ??pH may affect urinary stone formation. ??For example, urine pH below 6.0 may help reduce the tendency for calcium phosphate stones and pH greater than 6.0 may reduce the tendency for uric acid stone formation. Source: [employer]. Last revised 05-16-2017 us Isidro Leyva MD LAB MICROBIOLOGY - GENERAL O RDERABLES Final Result Performing Organization Address [facility]/ZIP Co de Phone Number [facility] [address] [place] [address] * (ABNORMAL) POCT glucose (11/24/2021 3:05 AM CDT) Glucose, POC 273(H) 70 - 140 mg/dL [facility] Comment: For Glucose values <35 mg/dl when Hematocrit is >60 mg/dl,the test may not accurately detect significant hypoglycemia,and testing in the Laboratory should be considered if clinically indicated. Blood 11/24/2021 3:05 AM CDT 11/24/2021 3:05 AM CDT Dequan Nunez MD LAB POCT ORDERABLES - DEVICE Final Result Performing Organization Address [facility] de Phone Number [facility] [address] Department Laboratories [place] [address] * (ABNORMAL) POCT glucose (11/24/2021 2:01 AM CDT) [facility] Signature Glucose, POC 256(H) 70 - 140 mg/dL [facility] Comment: For Glucose values <35 mg/dl when Hematocrit is >60 mg/dl,the test may not accurately detect significant hypoglycemia,and testing in the Laboratory should be considered if clinically indicated. Blood 11/24/2021 2:01 AM CDT 11/24/2021 2:01 AM CDT Dequan Nunez MD LAB POCT ORDERABLES - DEVICE Final Result Performing Organization Address [facility] de Phone Number [facility] [address] [place] [address] documented in this encounter Visit Diagnoses Diagnosis [...] complication, with long-term current use of insulin ([facility]) ([facility]),Diabetic ketoacidosis without coma associated with type 2 diabetes mellitus (CMS/HCC) ([facility]) Use to continually monitor glucose, change every 10 days 07/07/2021 11/24/2021 Dexcom G6 Transmitter deviceIndications:Type 2 diabetes mellitus without complication, with long-term current use of insulin (CMS/HCC) (HCC),Diabetic ketoacidosis without coma associated with type 2 diabetes mellitus (CMS/HCC) (HCC) Use to continually monitor glucose, change every 90 days 07/07/2021 11/24/2021 pen needle, diabetic (BD Ultra-Fine Ibeth Pen Needle) 32 gauge x 5/32 needleIndications: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 Use to inject insulin BG [...] ENDOCRINOLOGY 2 11/25/2021 11/24/2021 IP CONSULT TO DRAW HAND 1 Admission Count Last Ordered Date First Orde red Date ADMIT TO INPATIENT 1 11/24/2021 Discharge Count Last Ordered Date First Orde red Date DISCHARGE PATIENT 1 11/27/2021 documented in this encounter Care Teams Wafer Abrading Machine Tender Relationship Specialty Start Date End Date Keila Jimenez MD [address] [place] [address] PCP - General 6/26/22 Mariana Monique MD [address] [place] [address] Referring Physician Internal Medicine 01/17/20 documented as of this encounter
--- OUTSIDE RECORDS SUMMARY | 2024-05-14 03:26 | XMS_ITS | Encounter Summary ---
Author Organization [facility] Address [address] [place] [address] Phone Care Team Providers Care Autism Tutor Name Role Phone Mariana Monique MD Unavailable [phone] [facility] Primary Care Provider Encounter Details Date Type Department Care Team (Late st Contact Info) Description 08/05/2022 Telephone [facility] Endocrinology Metabolism and Lipid [address] [facility] 5th [place] [address] [place] [address] Denia Albert RN Social History [...] often do you attend chur ch or shinto services? 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) ([facility]) Use to continually monitor glucose 1 each 08/15/2022 semaglutide (OZEMPIC) 0.25 mg or 0.5 mg(2 mg/1.5 mL) pen injector injectionIndicatio ns:Type 2 diabetes mellitus without complication, with long-term current use of insulin ([facility]) ([facility]) Inject 0.25 mg SQ weekly for 2-4 weeks and then increase to 0.5 mg SQ weekly 4.5 mL 3 08/15/2022 3 blood-glucose sensor (Dexcom G7 Sensor) deviceIndications: Type 2 diabetes mellitus without complication, with long-term current use of insulin (CMS/HCC) ([facility]) Use to continually monitor glucose, change [...] to the G7 and also get a notch grinder Ozempic also renewed and the patient to [...] Jr., MD sent at 03/23/2022 8:20 AM MUCK MINER BLASTING ----- Marifer, this is a complicated patient [...] complication, with long-term current use of insulin ([facility]) ([facility])- Primary documented in this encounter Discontinued Medications Medication Sig Discontinue Reason Start Date End Da te Dexcom G6 Sensor device USE TO CONTINUALLY MONITOR GLUCOSE, CHANGE EVERY 10 DAYS Formulary change 03/08/2022 08/15/2022 documented as of this encounter Care Teams Autism Tutor Relationship Specialty Start Date End Date Keila Jimenez MD [address] [place] [address] PCP - General 10/29/21 Mariana Monique MD [address] [place] [address] Referring Physician Internal Medicine 01/17/20 documented as of this encounter
--- OUTSIDE RECORDS SUMMARY | 2024-05-14 03:26 | XMS_ITS | Encounter Summary ---
Author Organization [facility] Address [address] [place] [address] Phone Care Team Providers Care Heading Matcher And Assembler Name Role Phone Jann Burrows MD Primary Care Provider [phone] Mariana Monique MD Unavailable [phone] Reason for Visit * Reason Onset Date Comments Prior Auth Wegovy 06/13/2021 Encounter Details Date Type Department Care Team (Late st Contact Info) Description 06/13/2021 Telephone [facility] Endocrinology Metabolism and Lipid [address] [facility] [address] [place] [address] [place] [address] Denia Albert RN Prior Auth Social History Tobacco Use Types Packs/Day Years Used Date Smoking Tobacco: Never Smokeless Tobacco: Former Chew Quit: 01/13/2019 Alcohol Use Standard Drinks/Week Comments Not Currently 0 (1 standard drink = 0.6 oz pur e alcohol) Sex and Gender Information Value Date Recorded Sex Assigned at Not on file Legal Sex Male 5:01 AM ASSEMBLER BODY Gender Identity Male 12/18/2017 12:38 PM CDT Sexual Orientation Not on file 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 MBLER BODY * Telephone Encounter - Denia Albert RN - 06/13/2021 3:44 PM ASSEMBLER BODY Images from the original note were not included. Patient of Dr Styles MBLER BODY documented in this encounter Plan of Treatment Not on file documented as of this encounter Visit Diagnoses Not on filedocumented in this encounter Care Teams Heading Matcher And Assembler Relationship Specialty Start Date End Date Jann Burrows MD [address] [place] [address] PCP - General Hematology 03/13/19 10/28/21 Mariana Monique MD [address] [place] [address] Referring Physician Internal Medicine 01/17/20 documented as of this encounter
--- OUTSIDE RECORDS SUMMARY | 2024-05-14 03:26 | XMS_ITS | Encounter Summary ---
Author Organization [facility] Address [address] [place] [address] Phone Care Team Providers Care General Service Technician Name Role Phone Jann Burrows MD Primary Care Provider [phone] Mariana Monique MD Unavailable [phone] Encounter Details Date Type Department Care Team (Late st Contact Info) Description 06/13/2021 Telephone [facility] Scheduling [address] [place] [address] Jenifer Tamez Social History Tobacco Use Types Packs/Day Years Used Date Smoking Tobacco: Never Smokeless Tobacco: Former Chew Quit: 01/13/2019 Alcohol Use Standard Drinks/Week Comments Not Currently 0 (1 standard drink = 0.6 oz pur e alcohol) Sex and Gender Information Value Date Recorded Sex Assigned at Not on file Legal Sex Male 5:01 AM MANAGER ATHLETICS Gender Identity Male 12/18/2017 12:38 PM CDT Sexual Orientation Not on file 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 Not on file Not on file documented as of this encounter Miscellaneous Notes * Telephone Encounter - Jenifer Tamez - 06/13/2021 3:01 PM CST Wegovy 0.25MG/0.5ML auto-injectors Status: Approved Valid dates: 06/13/2021-01/11/2022 [place]: [id number] [employer]ER ATHLET[employer] documented in this encounter Plan of Treatment Not on file documented as of this encounter Visit Diagnoses Not on filedocumented in this encounter Care Teams General Service Technician Relationship Specialty Start Date End Date Jann Burrows MD [address] [place] [address] PCP - General Hematology 03/13/19 10/28/21 Mariana Monique MD [address] [place] [address] Referring Physician Internal Medicine 01/17/20 documented as of this encounter
--- OUTSIDE RECORDS SUMMARY | 2024-05-14 03:26 | XMS_ITS | Encounter Summary ---
Author Organization [facility] Address [address] [place] [address] Phone Care Team Providers Care Community Development Specialist Name Role Phone Jann Burrows MD Primary Care Provider [phone] Mariana Monique MD Unavailable [phone] Encounter Details Date Type Department Care Team (Late st Contact Info) Description 06/13/2021 Orders Only 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 [employer] documented in this encounter Plan of Treatment Not on file documented as of this encounter Visit Diagnoses Diagnosis Class 3 severe obesity due to excess calories with serious comorbidity and body mass index (BMI) of 40.0 to 44.9 in adult ([facility])- Primary documented in this encounter Care Teams Community Development Specialist Relationship Specialty Start Date End Date Jann Burrows MD [address] [place] [address] PCP - General Hematology 03/13/19 10/28/21 Mariana Monique MD [address] [place] [address] Referring Physician Internal Medicine 01/17/20 documented as of this encounter
--- OUTSIDE RECORDS SUMMARY | 2024-05-14 03:26 | XMS_ITS | Encounter Summary ---
Author Organization [facility] Healthcare Address [address] [place] [address] Care Team Providers Care Director Summer Sessions Name Role Phone Jann Burrows MD Primary Care Provider [phone] Mariana Monique MD Unavailable [phone] Reason for Visit * Reason Comments Hyperglycemia Encounter Details Date Type Department Care Team (Late st Contact Info) Description 06/06/2021 11:52 AM PRIVACY DIRECTOR - 06/07/2021 3:23 PM PRIVACY DIRECTOR Emergency [facility] [address] [place] [address] Charles Andrew MD [address] [place] [address] Magno Nuñez MD [address] [place] [address] Enrique Baker MD [address] [facility] [address] [place] [address] Ketoacidosis due to diabetes (CMS/HCC) (HCC) (Primary [...] on file Legal Sex Male 5:01 AM PRIVACY DIRECTOR Gender Identity Male 12/18/2017 12:38 PM CDT Sexual Orientation Not on file 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 Not on file Not on file Not on file documented as of this encounter Last Filed Vital Signs Vital Sign Reading Time Taken Comments Blood Pressure 129/60 06/07/2021 2:45 PM PRIVACY DIRECTOR Pulse 87 06/07/2021 2:45 PM PRIVACY DIRECTOR Temperature 36.7 ??C (98.06 ??F) 06/07/2021 2:[address] Respiratory Rate 16 06/07/2021 2:45 PM PRIVACY DIRECTOR Oxygen Saturation 97% 06/07/2021 2:45 PM PRIVACY DIRECTOR Inhaled Oxygen Concentration - - Weight 188.2 kg (415 lb) 06/06/2021 9:45 PM PRIVACY DIRECTOR Height 207.3 cm (6' 9.6 ) 06/06/2021 9:45 PM PRIVACY DIRECTOR Body Mass Index 43.82 06/06/2021 9:45 PM PRIVACY DIRECTOR documented in this encounter Discharge Diagnoses Diagnosis Type 2 diabetes mellitus with ketoacidosis without coma (HCC) - TYPE 2 DIABETES MELLITUS WITH KETOACIDOSIS WITHOUT COMA Essential (primary) hypertension - ESSENTIAL (PRIMARY) HYPERTENSION Unspecified essential hypertension Metabolic syndrome - METABOLIC SYNDROME Dysmetabolic Syndrome X Depression, unspecified - DEPRESSION, UNSPECIFIED Anxiety disorder, unspecified - ANXIETY DISORDER, UNSPECIFIED 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 Problems/Diagnoses: Active Problems: Essential hypertension Diabetic ketoacidosis [...] He will follow up tomorrow with his tube blower as previously scheduled. Active Issues Requiring Follow-up: [...] MSK: normal bulk and tone Neuro: A&Ox4, Wind Turbine Erector 3-12 grossly intact, no focal neuro deficit [...] PM Peter Styles Jr., MD EML CAM [address] [place] [address] EML Cosigned by Enrique Baker MD at 06/07/2021 3:41 PM PRIVACY DIRECTOR ACY DIRECTOR ACY DIRECTOR documented in this encounter Discharge Instructions * Discharge Instructions* Genny Sinclair RN - 06/07/2021 3:11 PM PRIVACY DIRECTOR Images from the original note were not [...] ask them during your visits. ?? 2017 [employer] Information is for End User's use only and may not be sold, redistributed or otherwise used for commercial purposes. All illustrations and images included in CareNotes?? are the copyrighted property of A.D.A.M., Inc. or [email or web address]. The above information is an audio visual aide only. It is not intended as medical advice for individual conditions or treatments. Talk to your doctor, nurse or pharmacist before following any medical regimen to see if it is safe and effective for you. ACY DIRECTOR documented in this encounter Medications at Time [...] in flowsheets. Plan of care discussed with patient/retail field representative, including as it relates to Active Problems: Essential hypertension Diabetic ketoacidosis without coma associated with type 2 diabetes mellitus (CMS/HCC) (HCC) Mood disorder (CMS/HCC) (HCC) Patient . Clinical goals for the shifEducation provided includes cont to monitor blood sugars and follow up with appt with endocrinology . Patient and/or retail field representative . Will continue to monitor. ACY DIRECTOR * Jenifer Tellez RD - 06/07/2021 2:37 [...] Carbohydrate Diet effective now Question Answer Comment ([facility]) Diet type Restricted Diabetic: Consistent Carbohydrate 06/07/21 0144 HgbA1c - 9.9 Glucose 306 Medication hx today Lantus SSI Assessment / Impression Interviewed pt who states his weight loss has been intentional eating mostly protein and vegetables Educated pt on general healthy diet and provided educational materials Will follow per nutrition standards of care ACY DIRECTOR * Arabella Munoz NP - 06/07/2021 12:13 PM CST Daily Progress Note Division of Hospital Medicine Name: Geraldo Velez Today: June 07, 2021 : 1995 Age: 25 y.o. male Admit: 06/06/2021 Bed: [id number] Subjective Chief complaint: DKA Interval History: Pt [...] Enrique Baker MD at 06/07/2021 3:40 PM PRIVACY DIRECTOR ACY DIRECTOR ACY DIRECTOR Associated attestation - Enrique Baker MD - 06/07/2021 3:40 PM PRIVACY DIRECTOR I have seen and examined the patient [...] Insurance Coverage: BCBS Prescription Coverage: yes Pharmacy: [facility] Primary Care Provider: verified [facility]. Follow up appt requested in [facility]. Jann Burrows MD Prior to Admission: Primary Caregiver: Self Support System: Parent Support system contact info (name, phone, availablity): Ivy Velez [phone] Home Care Services: No Durable Medical Equipment: [...] Patient lives in apartment with tyler. 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 Denies DME or home health prior to [...] Collaboration with patient, MD, direct care nurse, Site Supervising Technical Operator, Nurse Coordinator and other members of the health care team to assure needed interventions completed. 2. Return patient to optimal level of self-care post discharge. 3. Is Consultant will follow for Discharge Planning - interventions [...] from 4:31p.m. - 7:59a.m., please call the vocational training instructor [phone]. For weekend/holiday needs from 8:00a.m. - 4:30p.m., please call the Weekend Is Consultant . ACY DIRECTOR documented in this encounter H&P Notes * Sasha Rivas MD - 06/07/2021 1:08 AM CST History and Physical Division of [facility] Medicine Name: Geraldo Velez Today: [...] MSK: normal bulk and tone Neuro: A&Ox4, Wind Turbine Erector 3-12 grossly intact, no focal neuro deficit [...] coma associated with type 2 diabetes mellitus ([facility]) ([facility]) Assessment & Plan Patient presented with DKA, [...] for difficult to control T2DM Mood disorder (CMS/[facility]) ([facility]) Assessment & Plan Continue home duloxetine Essential hypertension Assessment & Plan Patient reports taking coreg 25 mg bid and lisinopril 20 mg at home. However recent chart review show lisinopril 40 was prescribed but has . - will continue coreg 25 bid and lisinopril 20 mg for now ACY DIRECTOR documented in this encounter Consult Notes * Flor Ontiveros MD - 06/07/2021 8:31 AM CSTAssociated Order(s): CONSULT TO ENDOCRINOLOGY DIABETES Endocrinology / Diabetes Consult Note Patient: Geraldo Velez, 25 y.o. male (: 1995) Room: [place] [id number] ( ) LOS: 0 Reason for Consult: [...] labs, imaging, and diagnostics independently reviewed in [facility] and commented on below. Allergies: Patient [...] 16 (L) 09/06/2017 CPEPTIDE 11.2 (H) 12/31/2019 XAS60BD 0.00 03/04/2019 Assessment & Plan Geraldo Velez [...] Styles Jr., MD at 06/07/2021 1:31 PM PRIVACY DIRECTOR ACY DIRECTOR ACY DIRECTOR Associated attestation - Peter Styles Jr., MD - 06/07/2021 1:31 PM PRIVACY DIRECTOR I have seen and examined the patient [...] review the protocol and diet orders then. ACY DIRECTOR documented in this encounter ED Notes * [...] doses or mix the month. Follows with [facility] endocrinology. Patient History: Patient Active Problem List Diagnosis Date Noted ??? Sleep disturbance 12/25/2019 ??? Mood disorder (CMS/HCC) ([facility]) 12/25/2019 ??? Acanthosis nigricans 03/19/2019 ??? Type 2 diabetes mellitus without complication, with long-term current use of insulin (CMS/HCC) ([facility]) 03/19/2019 ??? Fatty liver 10/13/2017 ??? Morbid obesity with BMI of 50.0-59.9, adult (CMS/HCC) ([facility]) 07/10/2017 ??? Asymmetric septal hypertrophy (CMS/HCC) ([facility]) 02/10/2016 ??? Essential hypertension 03/16/2010 Past Medical History: Diagnosis Date ??? Anxiety ??? Depression ??? Diabetes mellitus (HCC) ??? Disordered sleep 10/13/2017 ??? HTN (hypertension) ??? Metabolic syndrome ??? Morbid obesity with BMI of 50.0-59.9, adult (CMS/HCC) ([facility]) 07/10/2017 ??? Pneumonia due to COVID-19 virus [...] Isidro Orosco MD Ketoacidosis due to diabetes ([facility]) ([facility]) Hyperglycemia due to diabetes mellitus ([facility]) ([facility]) Glenn Kerr DO 06/06/21 1300 Magno Nuñez MD 06/06/212126 ACY DIRECTOR ACY DIRECTOR * Lowell Pollock RN - 06/06/2021 11:48 AM CST States elevated BS x 1 week > 400 Went to PCP and sent to ED for eval States N/V ACY DIRECTOR documented in this encounter Miscellaneous Notes * Plan of Care - Genny Sinclair RN - 06/07/2021 3:03 PM CST Goals: Clinical Goals for the Shift: admit &orient pt to the unit,complete admission orders Summary: Problem: Health Behavior: Goal: Understanding of discharge needs will improve Outcome: Progressing ACY DIRECTOR * Assessment & Plan Note - Sasha Rivas MD - 06/07/2021 1:17 AM PRIVACY DIRECTOR Associated Problem(s): Essential hypertension Patient reports taking coreg 25 mg bid and lisinopril 20 mg at home. However recent chart review show lisinopril 40 was prescribed but has . - Continue coreg 25 bid and lisinopril 20 mg for now ACY DIRECTOR ACY DIRECTOR * Assessment & Plan Note - Sasha Rivas MD - 06/07/2021 1:16 AM PRIVACY DIRECTOR Associated Problem(s): Mood disorder (CMS/HCC) (HCC) Continue home duloxetine ACY DIRECTOR * Assessment & Plan Note - Sasha Rivas MD - 06/07/2021 1:14 AM PRIVACY DIRECTOR Associated Problem(s): Diabetic ketoacidosis without coma associated [...] endocrine consult for difficult to control T2DM ACY DIRECTOR * Plan of Care - Erinn Oleary RN - 06/06/2021 7:23 PM CST Clinical status reevaluated by ED CM. Pt remains in ED as Boarder. MD order is for OBS level of care, which currently still appears to be appropriate. ACY DIRECTOR * ED Re-evaluation Note - Isidro rOosco MD - 06/06/2021 2:13 PM PRIVACY DIRECTOR ED Re-evaluation TRANSITION OF CARE: I, Isidro [...] with clear lungs and COVID-19 negative Pending: [facility] Dispo: 3500 admission ED Course as of [...] Rees, Ryan Embree, MD Resident 06/06/21 1414 ACY DIRECTOR * ED Procedure Note - Charles Andrew [...] medical staff. Charles Andrew MD 06/06/21 1211 ACY DIRECTOR * ED Pre-Arrival Note - Eleno Castro RN - 06/06/2021 11:00 AM PRIVACY DIRECTOR Pre-Arrival Note NEW VEHICLE SALES CONSULTANT Josefayahir Valdivia sending patient from [facility] for diabetes management. Pt has hx of DM and is followed at [facility]. Pt presented today to urgent care with BG of 472. Coming by private vehicle. Eleno Castro RN ACY DIRECTOR documented in this encounter Plan of Treatment Not on file documented as of this encounter Procedures Procedure Name Priority Date/Time Associated Diagnosis Comments POCT GLUCOSE DEVICE Routine 06/07/2021 1 2:00 PM PRIVACY DIRECTOR EGFR STAT 06/07/2021 11:31 AM PRIVACY DIRECTOR BASIC METABOLIC PANEL STAT 06/07/2021 11:31 AM PRIVACY DIRECTOR POCT GLUCOSE DEVICE Routine 06/07/2021 8 :18 AM PRIVACY DIRECTOR POCT GLUCOSE DEVICE Routine 06/07/2021 4 :03 AM PRIVACY DIRECTOR POCT GLUCOSE DEVICE Routine 06/07/2021 3 :56 AM PRIVACY DIRECTOR POCT GLUCOSE DEVICE Routine 06/07/2021 1 :41 AM PRIVACY DIRECTOR POCT GLUCOSE DEVICE Routine 06/06/2021 1 0:52 PM PRIVACY DIRECTOR POCT GLUCOSE DEVICE Routine 06/06/2021 8 :45 PM PRIVACY DIRECTOR EGFR Timed 06/06/2021 8:41 PM PRIVACY DIRECTOR BASIC METABOLIC PANEL Timed 06/06/2021 8:41 PM PRIVACY DIRECTOR POCT GLUCOSE DEVICE Routine 06/06/2021 6 :18 PM PRIVACY DIRECTOR POCT GLUCOSE DEVICE Routine 06/06/2021 4 :45 PM PRIVACY DIRECTOR POTASSIUM, WHOLE BLOOD STAT 06/06/2021 4:16 PM PRIVACY DIRECTOR EGFR STAT 06/06/2021 4:16 PM PRIVACY DIRECTOR DIFFERENTIAL AUTO STAT 06/06/2021 4:1 6 PM PRIVACY DIRECTOR CBC WITH AUTO DIFFERENTIAL STAT 06/06/2021 4:16 PM PRIVACY DIRECTOR MAGNESIUM STAT 06/06/2021 4:16 PM PRIVACY DIRECTOR LIPASE STAT 06/06/2021 4:16 PM PRIVACY DIRECTOR HEMOGLOBIN A1C STAT 06/06/2021 4:16 PM PRIVACY DIRECTOR COMPREHENSIVE METABOLIC PANEL STAT 06/06/2021 4:16 PM PRIVACY DIRECTOR POCT GLUCOSE DEVICE Routine 06/06/2021 2 :59 PM PRIVACY DIRECTOR EGFR STAT 06/06/2021 2:00 PM PRIVACY DIRECTOR DIFFERENTIAL AUTO STAT 06/06/2021 2:0 0 PM PRIVACY DIRECTOR URINALYSIS AND REFLEX TO MICROSCOPIC STAT 06/06/2021 2:00 PM PRIVACY DIRECTOR CBC WITH AUTO DIFFERENTIAL STAT 06/06/2021 2:00 PM PRIVACY DIRECTOR URINALYSIS, MICROSCOPIC ONLY STAT 06/06/2021 2:00 PM PRIVACY DIRECTOR MAGNESIUM STAT 06/06/2021 2:00 PM PRIVACY DIRECTOR LIPASE STAT 06/06/2021 2:00 PM PRIVACY DIRECTOR COMPREHENSIVE METABOLIC PANEL STAT 06/06/2021 2:00 PM PRIVACY DIRECTOR POCT GLUCOSE DEVICE Routine 06/06/2021 1 :58 PM PRIVACY DIRECTOR POCT GLUCOSE DEVICE Routine 06/06/2021 1 :16 PM PRIVACY DIRECTOR INFLUENZA A/B, RSV, AND COVID-19 PCR Routine 06/06/2021 12:24 PM PRIVACY DIRECTOR DIFFERENTIAL AUTO STAT 06/06/2021 12: 24 PM PRIVACY DIRECTOR CBC WITH AUTO DIFFERENTIAL STAT 06/06/2021 12:24 PM PRIVACY DIRECTOR BLOOD GAS, VENOUS STAT 06/06/2021 12: 24 PM PRIVACY DIRECTOR XR CHEST 1 VIEW ED Urgent/IP Urgent 06/06/2021 12:17 PM PRIVACY DIRECTOR DE CRITICAL CARE ILL/INJURED PATIENT INIT 30-74 MIN Routine 06/06/2021 12:10 PM PRIVACY DIRECTOR POCT KETONE, FINGERSTICK Routine 06/06/2021 11:52 AM PRIVACY DIRECTOR POCT GLUCOSE DEVICE Routine 06/06/2021 1 1:50 AM PRIVACY DIRECTOR documented in this encounter Results * (ABNORMAL) POCT glucose (06/07/2021 12:00 PM PRIVACY DIRECTOR) Glucose, POC 303(H) 70 - 199 mg/dL [facility] Blood 06/07/2021 12:0 0 PM PRIVACY DIRECTOR 06/07/2021 12:00 PM PRIVACY DIRECTOR us Enrique Baker MD LAB POCT ORDERABLES - DEVICE Final Result Performing Organization Address City/State/[facility] Co de Phone Number [facility] [place] [address] * (ABNORMAL) eGFR (06/07/2021 11:31 AM PRIVACY DIRECTOR) eGFR >90(H) 90 - 130 mL/min/1. 73 m2 [facility] Comment: Interpretive Data Reference Interval Normal [...] reviewed 2021. Blood 06/07/2021 11:3 1 AM PRIVACY DIRECTOR 06/07/2021 11:41 AM PRIVACY DIRECTOR us Arabella Munoz NP LAB BLOOD ORDERABLES Melina castorena Result [facility] [place] [address] * (ABNORMAL) Basic metabolic panel (06/07/2021 11:31 AM PRIVACY DIRECTOR) Sodium 131(L) 135 - 145 mmol/L [facility] Potassium, pl See Comment 3.3 - 4.9 mmol/L [facility] Comment:Credited; Hemolyzed Specimen Chloride 97 97 - 110 mmol/L [facility] CO2 23 22 - 32 mmol/L [facility] Anion gap 11 2 - 15 mmol/L [facility] BUN 11 8 - 25 mg/dL [facility] Creatinine 0.66(L) 0.80 - 1.30 mg/dL [facility] Glucose 306(H) 70 - 199 mg/dL [facility] Comment: Interpretive Data Fasting glucose >/= [...] 2017. Calcium 8.8 8.5 - 10.3 mg/dL [facility] Blood 06/07/2021 11:3 1 AM PRIVACY DIRECTOR 06/07/2021 11:41 AM PRIVACY DIRECTOR us Arabella Munoz NEW VEHICLE SALES CONSULTANT LAB BLOOD ORDERABLES Mleina l Result Performing Organization Address [facility] Co de Phone Number [facility] [place] [address] * (ABNORMAL) POCT glucose (06/07/2021 8:18 AM PRIVACY DIRECTOR) Glucose, POC 291(H) 70 - 199 mg/dL [facility] Blood 06/07/2021 8:18 AM PRIVACY DIRECTOR 06/07/2021 8:18 AM PRIVACY DIRECTOR Enrique Baker MD LAB POCT ORDERABLES - DEVICE Final Result Performing Organization Address [facility] de Phone Number [facility] [place] [address] * (ABNORMAL) POCT glucose (06/07/2021 4:03 AM PRIVACY DIRECTOR) Glucose, POC 283(H) 70 - 199 mg/dL [facility] Blood 06/07/2021 4:03 AM PRIVACY DIRECTOR 06/07/2021 4:03 AM PRIVACY DIRECTOR us Magno Nuñez MD LAB POCT ORDERABLES - DEVICE F inal Result Performing Organization Address [facility] Co de Phone Number [facility] [place] [address] * (ABNORMAL) POCT glucose (06/07/2021 3:56 AM PRIVACY DIRECTOR) Glucose, POC 374(H) 70 - 199 mg/dL [facility] Blood 06/07/2021 3:56 AM PRIVACY DIRECTOR 06/07/2021 3:56 AM PRIVACY DIRECTOR us Magno Nuñez MD LAB POCT ORDERABLES - DEVICE F inal Result Performing Organization Address [facility] [place] [address] * (ABNORMAL) POCT glucose (06/07/2021 1:41 AM PRIVACY DIRECTOR) Glucose, POC 212(H) 70 - 199 mg/dL [facility] Blood 06/07/2021 1:41 AM PRIVACY DIRECTOR 06/07/2021 1:41 AM PRIVACY DIRECTOR us Magno Nuñez MD LAB POCT ORDERABLES - DEVICE F inal Result Performing Organization Address [facility] [place] [address] * (ABNORMAL) POCT glucose (06/06/2021 10:52 PM PRIVACY DIRECTOR) Glucose, POC 208(H) 70 - 199 mg/dL [facility] Blood 06/06/2021 10:5 2 PM PRIVACY DIRECTOR 06/06/2021 10:52 PM PRIVACY DIRECTOR us Magno Nuñez MD LAB POCT ORDERABLES - DEVICE F inal Result Performing Organization Address [facility] [place] [address] * POCT glucose (06/06/2021 8:45 PM PRIVACY DIRECTOR) Glucose, POC 169 70 - 199 mg/dL [facility] Blood 06/06/2021 8:45 PM PRIVACY DIRECTOR 06/06/2021 8:45 PM PRIVACY DIRECTOR us Magno Nuñez MD LAB POCT ORDERABLES - DEVICE F inal Result Performing Organization Address [facility] Co de Phone Number [facility] [place] [address] * (ABNORMAL) eGFR (06/06/2021 8:41 PM PRIVACY DIRECTOR) eGFR >90(H) 90 - 130 mL/min/1. 73 m2 [facility] Comment: Interpretive Data Reference Interval Normal ?>/= [...] last reviewed 2021. Blood 06/06/2021 8:41 PM PRIVACY DIRECTOR 06/06/2021 9:29 PM PRIVACY DIRECTOR us Charles Andrew MD LAB BLOOD ORDERABLES Final Re sult Performing Organization Address [facility] Co de Phone Number TRACIE PAZ Simone [facility] [place] [address] * (ABNORMAL) Basic metabolic panel (06/06/2021 8:41 PM PRIVACY DIRECTOR) Sodium 137 135 - 145 mmol/L [facility] Comment:After removal of alie ss lipemia. Potassium, pl See Comment 3.3 - 4.9 mmol/L [facility] Comment:Credited; Hemolyzed Specimen Chloride 101 97 - 110 mmol/L [facility] Comment:After removal of alie ss lipemia. CO2 20(L) 22 - 32 mmol/L [facility] Comment:Hemolyzed; result ma y be falsely decreased Anion gap 16(H) 2 - 15 mmol/L [facility] BUN 13 8 - 25 mg/dL [facility] Creatinine 0.41(L) 0.80 - 1.30 mg/dL [facility] Glucose 145 70 - 199 mg/dL [facility] Comment: Interpretive Data Fasting glucose >/= [...] 2017. Calcium 9.0 8.5 - 10.3 mg/dL [facility] Comment:After removal of alie ss lipemia. Blood 06/06/2021 8:41 PM PRIVACY DIRECTOR 06/06/2021 9:29 PM PRIVACY DIRECTOR Sasha Rivas MD LAB BLOOD ORDERABLES Fin al Result [facility] [place] [address] * (ABNORMAL) POCT glucose (06/06/2021 6:18 PM PRIVACY DIRECTOR) Glucose, POC 237(H) 70 - 199 mg/dL [facility] Blood 06/06/2021 6:18 PM PRIVACY DIRECTOR 06/06/2021 6:18 PM PRIVACY DIRECTOR Charles Andrew MD LAB POCT ORDERABLES - DEVICE Final Result Performing Organization Address [facility] Co de Phone Number [facility] [place] [address] * (ABNORMAL) POCT glucose (06/06/2021 4:45 PM PRIVACY DIRECTOR) Glucose, POC 422(H) 70 - 199 mg/dL [facility] Blood 06/06/2021 4:45 PM PRIVACY DIRECTOR 06/06/2021 4:45 PM PRIVACY DIRECTOR Charles Andrew MD LAB POCT ORDERABLES - DEVICE Final Result Performing Organization Address [facility] [place] [address] * (ABNORMAL) Hemoglobin A1c (06/06/2021 4:16 PM PRIVACY DIRECTOR) Hgb A1C 9.9(H) 4.0 - 5.6 % [facility] Estimated Average Glucose 237 mg/dL [facility] Comment: The ADA recommends reporting an estimated Average Glucose (eAG) with all Hemoglobin A1c results using the equation derived from a study of 507 normal and diabetic adults. ??Minority populations were underrepresented and children were not included. ?? (Diabetes Care 2020; 43(S1): S66-S76). ??The eAG is not equivalent to a fasting glucose. Blood 06/06/2021 4:16 PM PRIVACY DIRECTOR 06/06/2021 4:25 PM PRIVACY DIRECTOR Magno Nuñez MD LAB BLOOD ORDERABLES Final Res ult Performing Organization Address [facility] Co de Phone Number [facility] [place] [address] * (ABNORMAL) eGFR (06/06/2021 4:16 PM PRIVACY DIRECTOR) eGFR >90(H) 90 - 130 mL/min/1. 73 m2 [facility] Comment: Interpretive Data Reference Interval Normal ?>/= [...] last reviewed 2021. Blood 06/06/2021 4:16 PM PRIVACY DIRECTOR 06/06/2021 4:21 PM PRIVACY DIRECTOR us Magno Nuñez MD LAB BLOOD ORDERABLES Final Res ult [facility] Department [place] [address] * Differential, auto (06/06/2021 4:16 PM PRIVACY DIRECTOR) Pathologist [facility] Neutrophil abs 2.5 1.7 - 6.5 K/cumm [facility] Imm gran abs 0.0 0.0 - 0.1 K/cumm [facility] Lymphocyte abs 1.7 0.8 - 3.3 K/cumm [facility] Monocyte abs 0.3 0.2 - 0.8 K/cumm [facility] Eosinophil abs 0.1 0.0 - 0.5 K/cumm [facility] Basophil abs 0.0 0.0 - 0.1 K/cumm [facility] Neutrophil pct 52.7 % [facility] Comment: Interpretive Data Percent cell count reference ranges are not reported, since discordance with absolute values may lead to misinterpretation of CBC data. Current Interpretive Data was last revised on 2017. Imm gran pct 0.4 % [facility] Comment: Interpretive Data Percent cell count reference ranges are not reported, since discordance with absolute values may lead to misinterpretation of CBC data. Current Interpretive Data was last revised on 2017. Lymphocyte pct 36.4 % [facility] Comment: Interpretive Data Percent cell count reference ranges are not reported, since discordance with absolute values may lead to misinterpretation of CBC data. Current Interpretive Data was last revised on 2017. Monocyte pct 7.2 % [facility] Comment: Interpretive Data Percent cell count reference ranges are not reported, since discordance with absolute values may lead to misinterpretation of CBC data. Current Interpretive Data was last revised on 2017. Eosinophil pct 2.9 % [facility] Comment: Interpretive Data Percent cell count reference ranges are not reported, since discordance with absolute values may lead to misinterpretation of CBC data. Current Interpretive Data was last revised on 2017. Basophil pct 0.4 % [facility] Comment: Interpretive Data Percent cell count reference ranges are not reported, since discordance with absolute values may lead to misinterpretation of CBC data. Current Interpretive Data was last revised on 2017. Blood 06/06/2021 4:16 PM PRIVACY DIRECTOR 06/06/2021 4:21 PM PRIVACY DIRECTOR us Magno Nuñez MD LAB BLOOD ORDERABLES Final Res ult [facility] [place] [address] * Lipase (06/06/2021 4:16 PM PRIVACY DIRECTOR) Lipase 36 10 - 99 Units/L [facility] Comment: Code Blue Specimen After removal of gross lipemia. Blood 06/06/2021 4:16 PM PRIVACY DIRECTOR 06/06/2021 4:21 PM PRIVACY DIRECTOR us Magno Nuñez MD LAB BLOOD ORDERABLES Final Res ult [facility] [place] [address] * CBC with auto differential (06/06/2021 4:16 PM PRIVACY DIRECTOR) WBC 4.8 3.8 - 9.9 K/cumm [facility] Comment:Code Blue Specimen Hgb See Comment 13.0 - 17.5 [facility] Comment: Not able to obtain results due to gross Hemolysis / gross Lipemia Removal of results called to Jose PAGE) at 2122 by CTB. Hct See Comment 38.9 - 50.3 [facility] Comment: Not able to obtain results due to gross Hemolysis / gross Lipemia Removal of results called to Jose PAGE) at 2122 by CTB. Plt 290 150 - 400 K/cumm [facility] MPV 10.2 9.1 - 12.3 fL [facility] RBC See Comment 4.30 - 5.80 [facility] Comment: Not able to obtain results due to gross Hemolysis / gross Lipemia Removal of results called to Jose PAGE) at 2122 by MEB. MCV See Comment 81.3 - 96.4 [facility] Comment: Not able to obtain results due to gross Hemolysis / gross Lipemia Removal of results called to Jose PAGE) at 2122 by CTB. MCH See Comment 27.1 - 33.3 [facility] Comment: Not able to obtain results due to gross Hemolysis / gross Lipemia Removal of results called to Jose PAGE) at 2122 by CTB. MCHC See Comment 32.3 - 35.7 [facility] Comment: Not able to obtain results due to gross Hemolysis / gross Lipemia Removal of results called to Jose (BRYANNA) at 2122 by CTBrandee. RDW CV 13.1 11.1 - 14.9 % [facility] RDW SD 37.2 35.7 - 48.1 fL [facility] NRBC abs 0.00 0.00 - 0.01 K/cumm [facility] Blood 06/06/2021 4:16 PM PRIVACY DIRECTOR 06/06/2021 4:21 PM PRIVACY DIRECTOR Magno Nuñez MD LAB BLOOD ORDERABLES Edited Re sult - Final Performing Organization Address [facility]/ZIP Co de Phone Number [facility] [place] [address] * Potassium, whole blood (06/06/2021 4:16 PM PRIVACY DIRECTOR) Potassium, bld 3.9 3.3 - 4.9 mmol/L [facility] Comment:Code Blue Specimen Blood 06/06/2021 4:16 PM PRIVACY DIRECTOR 06/06/2021 4:21 PM PRIVACY DIRECTOR Magno Nuñez MD LAB BLOOD ORDERABLES Final Res ult Performing Organization Address [facility] Co de Phone Number [facility] [place] [address] * Magnesium (06/06/2021 4:16 PM PRIVACY DIRECTOR) Magnesium 1.7 1.4 - 2.5 mg/dL [facility] Comment: Code Blue Specimen After removal of gross lipemia. Blood 06/06/2021 4:16 PM PRIVACY DIRECTOR 06/06/2021 4:21 PM PRIVACY DIRECTOR Magno Nuñez MD LAB BLOOD ORDERABLES Final Res ult Performing Organization Address City/[facility]/ZIP Co de Phone Number [facility] [place] [address] * (ABNORMAL) Comprehensive metabolic panel (06/06/2021 4:16 PM PRIVACY DIRECTOR) Sodium 136 135 - 145 mmol/L [facility] Comment: Code Blue Specimen After removal of gross lipemia. Potassium, pl 3.7 3.3 - 4.9 mmol/L [facility] Comment: Code Blue Specimen After removal of gross lipemia. Chloride 97 97 - 110 mmol/L [facility] Comment: Code Blue Specimen After removal of gross lipemia. CO2 19(L) 22 - 32 mmol/L [facility] Comment: Code Blue Specimen After removal of gross lipemia. Anion gap 20(H) 2 - 15 mmol/L [facility] Comment: Code Blue Specimen After removal of gross lipemia. BUN 15 8 - 25 mg/dL [facility] Comment: Code Blue Specimen After removal of gross lipemia. Creatinine 0.73(L) 0.80 - 1.30 mg/dL [facility] Comment: Code Blue Specimen After removal of gross lipemia. Glucose 426(H) 70 - 199 mg/dL [facility] Comment: Code Blue Specimen After removal [...] 2017. Calcium 9.6 8.5 - 10.3 mg/dL [facility] Comment: Code Blue Specimen After removal of gross lipemia. Bilirubin, total 0.3 0.1 - 1.2 mg/dL [facility] Comment: Code Blue Specimen After removal of gross lipemia. Protein, pl 7.1 6.5 - 8.5 g/dL [facility] Comment: Code Blue Specimen After removal of gross lipemia. Albumin 4.3 3.5 - 5.0 g/dL [facility] Comment: Code Blue Specimen After removal of gross lipemia. Alk phos 152(H) 40 - 130 Units/L [facility] Comment: Code Blue Specimen After removal of gross lipemia. ALT 40 7 - 55 Units/L [facility] Comment: Code Blue Specimen After removal of gross lipemia. AST 18 10 - 50 Units/L [facility] Comment: Code Blue Specimen After removal of gross lipemia. Blood 06/06/2021 4:16 PM PRIVACY DIRECTOR 06/06/2021 4:21 PM PRIVACY DIRECTOR Magno Nuñez MD LAB BLOOD ORDERABLES Final Res ult Performing Organization Address [facility]/ZIP Co de Phone Number [facility] [place] [address] * (ABNORMAL) POCT glucose (06/06/2021 2:59 PM PRIVACY DIRECTOR) [facility] Glucose, POC 572(C) 70 - 199 mg/dL [facility] Glucose comment 1 RN Notified [facility] Blood 06/06/2021 2:59 PM PRIVACY DIRECTOR 06/06/2021 2:59 PM PRIVACY DIRECTOR Charles Andrew MD LAB POCT ORDERABLES - DEVICE Final Result Performing Organization Address [facility] Co de Phone Number [facility] [place] [address] * eGFR (06/06/2021 2:00 PM PRIVACY DIRECTOR) eGFR See Comment 90 - 130 [facility] Comment: Credited, hemolyzed specimen. Interpretive Data [...] last reviewed 2021. Blood 06/06/2021 2:00 PM PRIVACY DIRECTOR 06/06/2021 2:11 PM PRIVACY DIRECTOR us Charles Andrew MD LAB BLOOD ORDERABLES Final Re sult Performing Organization Address [facility] Co de Phone Number [facility] [place] [address] * Urinalysis, microscopic only (06/06/2021 2:00 PM PRIVACY DIRECTOR) WBC, ur 0-5 0 - 5 /HPF [facility] RBC, ur 0-2 0 - 2 /HPF [facility] Epithelial cells, squamous, ur 1-5 0 - 5 /HPF [facility] Urine 06/06/2021 2:00 PM PRIVACY DIRECTOR 06/06/2021 2:07 PM PRIVACY DIRECTOR us Glenn Kerr DO LAB URINE ORDERABLES Melina l Result Performing Organization Address [facility] Co de Phone Number [facility] [place] [address] * Differential, auto (06/06/2021 2:00 PM PRIVACY DIRECTOR) Neutrophil abs 2.7 1.7 - 6.5 K/cumm [facility] Imm gran abs 0.0 0.0 - 0.1 K/cumm [facility] Lymphocyte abs 1.5 0.8 - 3.3 K/cumm [facility] Monocyte abs 0.4 0.2 - 0.8 K/cumm [facility] Eosinophil abs 0.2 0.0 - 0.5 K/cumm [facility] Basophil abs 0.0 0.0 - 0.1 K/cumm [facility] Neutrophil pct 57.5 % [facility] Comment: Interpretive Data Percent cell count reference ranges are not reported, since discordance with absolute values may lead to misinterpretation of CBC data. Current Interpretive Data was last revised on 2017. Imm gran pct 0.4 % [facility] Comment: Interpretive Data Percent cell count reference ranges are not reported, since discordance with absolute values may lead to misinterpretation of CBC data. Current Interpretive Data was last revised on 2017. Lymphocyte pct 31.1 % [facility] Comment: Interpretive Data Percent cell count reference ranges are not reported, since discordance with absolute values may lead to misinterpretation of CBC data. Current Interpretive Data was last revised on 2017. Monocyte pct 7.4 % [facility] Comment: Interpretive Data Percent cell count reference ranges are not reported, since discordance with absolute values may lead to misinterpretation of CBC data. Current Interpretive Data was last revised on 2017. Eosinophil pct 3.2 % [facility] Comment: Interpretive Data Percent cell count reference ranges are not reported, since discordance with absolute values may lead to misinterpretation of CBC data. Current Interpretive Data was last revised on 2017. Basophil pct 0.4 % [facility] Comment: Interpretive Data Percent cell count reference ranges are not reported, since discordance with absolute values may lead to misinterpretation of CBC data. Current Interpretive Data was last revised on 2017. Blood 06/06/2021 2:00 PM PRIVACY DIRECTOR 06/06/2021 2:11 PM PRIVACY DIRECTOR us Charles Andrew MD LAB BLOOD ORDERABLES Final Re sult [facility] [place] [address] * Magnesium (06/06/2021 2:00 PM PRIVACY DIRECTOR) Pathologist [facility] Magnesium See Comment 1.4 - 2.5 mg/dL [facility] Comment:Credited, hemolyzed specimen. Blood 06/06/2021 2:00 PM PRIVACY DIRECTOR 06/06/2021 2:11 PM PRIVACY DIRECTOR us Charles Andrew MD LAB BLOOD ORDERABLES Final Re sult [facility] [place] [address] * (ABNORMAL) CBC with auto differential (06/06/2021 2:00 PM PRIVACY DIRECTOR) [facility] WBC 4.7 3.8 - 9.9 K/cumm [facility] Hgb See Comment 13.0 - 17.5 g/dL [facility] Comment:Sample hemolyzed. HG B and-or HCT may be effected. Suggest redraw. Lipemic. Not able to obtain due to gross hemolysis Hct See Comment 38.9 - 50.3 % [facility] Comment:Sample hemolyzed. HG B and-or HCT may be effected. Suggest redraw. Not able to obtain due to gross hemolysis Plt 309 150 - 400 K/cumm [facility] MPV 10.8 9.1 - 12.3 fL [facility] RBC See Comment 4.30 - 5.80 M/cumm [facility] Comment:Sample hemolyzed; HG B may be elevated due to free hemoglobin, or HCT may be falsely decreased due to ex vivo hemolysis. Lipemic. Not able to obtain due to gross hemolysis MCV See Comment 81.3 - 96.4 fL [facility] Comment:Not able to obtain d ue to gross hemolysis MCH See Comment 27.1 - 33.3 pg [facility] Comment:Not able to obtain d ue to gross hemolysis MCHC See Comment 32.3 - 35.7 g/dL [facility] Comment:Not able to obtain d ue to gross hemolysis RDW CV #SN 11.1 - 14.9 % [facility] Comment:Not able to obtain d ue to gross hemolysis RDW SD #SN 35.7 - 48.1 fL [facility] Comment:Not able to obtain d ue to gross hemolysis NRBC abs 0.04(H) 0.00 - 0.01 K/cumm [facility] Blood 06/06/2021 2:00 PM PRIVACY DIRECTOR 06/06/2021 2:11 PM PRIVACY DIRECTOR Charles Andrew MD LAB BLOOD ORDERABLES Final Re sult Performing Organization Address City/[facility]/ZIP Co de Phone Number [facility] [place] [address] * Lipase (06/06/2021 2:00 PM PRIVACY DIRECTOR) Pathologist [facility] Lipase See Comment 10 - 99 Units/L [facility] Comment:Credited, hemolyzed specimen. Blood 06/06/2021 2:00 PM PRIVACY DIRECTOR 06/06/2021 2:11 PM PRIVACY DIRECTOR Charles Andrew MD LAB BLOOD ORDERABLES Final Re sult Performing Organization Address [facility] Co de Phone Number [facility] [place] [address] * Comprehensive metabolic panel (06/06/2021 2:00 PM PRIVACY DIRECTOR) Sodium See Comment 135 - 145 mmol/L [facility] Comment:Credited, hemolyzed specimen. Potassium, pl See Comment 3.3 - 4.9 mmol/L [facility] Comment:Credited, hemolyzed specimen. Chloride See Comment 97 - 110 mmol/L [facility] Comment:Credited, hemolyzed specimen. CO2 See Comment 22 - 32 mmol/L [facility] Comment:Credited, hemolyzed specimen. Anion gap See Comment 2 - 15 mmol/L [facility] Comment:Credited, hemolyzed specimen. BUN See Comment 8 - 25 mg/dL [facility] Comment:Credited, hemolyzed specimen. Creatinine See Comment 0.80 - 1.30 mg/dL [facility] Comment:Credited, hemolyzed specimen. Glucose See Comment 70 - 199 mg/dL [facility] Comment: Credited, hemolyzed specimen. Interpretive Data [...] Calcium See Comment 8.5 - 10.3 mg/dL [facility] Comment:Credited, hemolyzed specimen. Bilirubin, total See Comment 0.1 - 1.2 mg/dL [facility] Comment:Credited, hemolyzed specimen. Protein, pl See Comment 6.5 - 8.5 g/dL [facility] Comment:Credited, hemolyzed specimen. Albumin See Comment 3.5 - 5.0 g/dL [facility] Comment:Credited, hemolyzed specimen. Alk phos See Comment 40 - 130 Units/L [facility] Comment:Credited, hemolyzed specimen. ALT See Comment 7 - 55 Units/L [facility] Comment:Credited, hemolyzed specimen. AST See Comment 10 - 50 Units/L [facility] Comment:Credited, hemolyzed specimen. Blood 06/06/2021 2:00 PM PRIVACY DIRECTOR 06/06/2021 2:11 PM PRIVACY DIRECTOR us Charles Andrew MD LAB BLOOD ORDERABLES Final Re sult [facility] [place] [address] * (ABNORMAL) Urinalysis reflex to microscopic (06/06/2021 2:00 PM PRIVACY DIRECTOR) Color, ur Straw Yellow [facility] Clarity, ur Clear Clear [facility] Specific gravity, ur 1.033(H) 1.003 - 1.030 [facility] pH, urine 6 [facility] Protein, ur ql 1+(A) Negative [facility] Glucose, ur ql 4+(A) Negative [facility] Ketones, ur 3+(A) Negative [facility] Bilirubin, ur Negative Negative [facility] Blood, ur Negative Negative [facility] Urobilinogen, ur <2.0 <2.0 mg/dL [facility] Nitrite, ur Negative Negative [facility] Leukocyte esterase, ur Negative Negative [facility] UA reflex comment Reflex to microscopic UA will be performed. [facility] Urine 06/06/2021 2:00 PM PRIVACY DIRECTOR 06/06/2021 2:07 PM PRIVACY DIRECTOR Narrative [facility] - 06/06/2021 2:28 PM PRIVACY DIRECTOR ?? Urine pH is affected by diet, medications, systemic acid-base disturbances, and renal tubular function. ??pH may affect urinary stone formation. ??For example, urine pH below 6.0 may help reduce the tendency for calcium phosphate stones and pH greater than 6.0 may reduce the tendency for uric acid stone formation. Source: [employer]. Last revised 05-16-2017 Glenn Kerr DO LAB URINE ORDERABLES Melina l Result Performing Organization Address City/State/[facility] Co de Phone Number [facility] [place] [address] * (ABNORMAL) POCT glucose (06/06/2021 1:58 PM PRIVACY DIRECTOR) Glucose, POC 585(C) 70 - 199 mg/dL [facility] Glucose comment 1 RN Notified [facility] Blood 06/06/2021 1:58 PM PRIVACY DIRECTOR 06/06/2021 1:58 PM PRIVACY DIRECTOR us Charles Andrew MD LAB POCT ORDERABLES - DEVICE Final Result Performing Organization Address City/[facility]/ZIP Co de Phone Number [facility] [place] [address] * (ABNORMAL) POCT glucose (06/06/2021 1:16 PM PRIVACY DIRECTOR) Pathologist [facility] Glucose, POC >600(C) 70 - 199 mg/dL [facility] Glucose comment 1 RN Notified [facility] Blood 06/06/2021 1:16 PM PRIVACY DIRECTOR 06/06/2021 1:16 PM PRIVACY DIRECTOR Charles Andrew MD LAB POCT ORDERABLES - DEVICE Final Result Performing Organization Address [facility] Co de Phone Number [facility] [place] [address] * Differential, auto (06/06/2021 12:24 PM PRIVACY DIRECTOR) [facility] Neutrophil abs 2.9 1.7 - 6.5 K/cumm [facility] Imm gran abs 0.0 0.0 - 0.1 K/cumm [facility] Lymphocyte abs 1.6 0.8 - 3.3 K/cumm [facility] Monocyte abs 0.4 0.2 - 0.8 K/cumm [facility] Eosinophil abs 0.1 0.0 - 0.5 K/cumm [facility] Basophil abs 0.0 0.0 - 0.1 K/cumm [facility] Neutrophil pct 57.2 % [facility] Comment: Interpretive Data Percent cell count reference ranges are not reported, since discordance with absolute values may lead to misinterpretation of CBC data. Current Interpretive Data was last revised on 2017. Imm gran pct 0.6 % [facility] Comment: Interpretive Data Percent cell count reference ranges are not reported, since discordance with absolute values may lead to misinterpretation of CBC data. Current Interpretive Data was last revised on 2017. Lymphocyte pct 31.0 % [facility] Comment: Interpretive Data Percent cell count reference ranges are not reported, since discordance with absolute values may lead to misinterpretation of CBC data. Current Interpretive Data was last revised on 2017. Monocyte pct 7.6 % [facility] Comment: Interpretive Data Percent cell count reference ranges are not reported, since discordance with absolute values may lead to misinterpretation of CBC data. Current Interpretive Data was last revised on 2017. Eosinophil pct 2.8 % [facility] Comment: Interpretive Data Percent cell count reference ranges are not reported, since discordance with absolute values may lead to misinterpretation of CBC data. Current Interpretive Data was last revised on 2017. Basophil pct 0.8 % [facility] Comment: Interpretive Data Percent cell count reference ranges are not reported, since discordance with absolute values may lead to misinterpretation of CBC data. Current Interpretive Data was last revised on 2017. Blood 06/06/2021 12:2 4 PM PRIVACY DIRECTOR 06/06/2021 12:29 PM PRIVACY DIRECTOR Glenn Kerr DO LAB BLOOD ORDERABLES Melina l Result Performing Organization Address [facility] de Phone Number [facility] [place] [address] * (ABNORMAL) Blood gas, venous (06/06/2021 12:24 PM PRIVACY DIRECTOR) pH, Venous 7.33 7.32 - 7.43 [facility] PCO2, Venous 36(L) 40 - 50 mmHg [facility] PO2, Venous 66 mmHg [facility] Comment: Interpretive Data No Reference Range Established Current Interpretive Data was last revised on 2017. HCO3 Venous, Calculated 20 20 - 30 mmol/L [facility] BE, venous -6 mmol/L [facility] Comment: Interpretive Data No Reference Range Established Current Interpretive Data was last revised on 2017. Blood 06/06/2021 12:2 4 PM PRIVACY DIRECTOR 06/06/2021 12:29 PM PRIVACY DIRECTOR Glenn Kerr DO LAB BLOOD ORDERABLES Melina l Result Performing Organization Address [facility]/ZIP Co de Phone Number [facility] [place] [address] * (ABNORMAL) CBC with auto differential (06/06/2021 12:24 PM PRIVACY DIRECTOR) [facility] WBC 4.0 3.8 - 9.9 K/cumm [facility] Comment:Result required veri fication by manual methods. Hgb See Comment 13.0 - 17.5 g/dL [facility] Comment:Sample hemolyzed. Morrison ggest redraw. Results invalid. Hct 44.7 38.9 - 50.3 % [facility] Plt 327 150 - 400 K/cumm [facility] MPV 10.9 9.1 - 12.3 fL [facility] RBC 5.33 4.30 - 5.80 M/cumm [facility] MCV 83.9 81.3 - 96.4 fL [facility] MCH See Comment 27.1 - 33.3 pg [facility] Comment:Sample hemolyzed. Morrison ggest redraw. Results invalid. MCHC See Comment 32.3 - 35.7 g/dL [facility] Comment:Sample hemolyzed. Morrison ggest redraw. Results invalid. RDW CV 16.6(H) 11.1 - 14.9 % [facility] RDW SD 42.8 35.7 - 48.1 fL [facility] NRBC abs 0.03(H) 0.00 - 0.01 K/cumm [facility] Blood (Blood, Venous) 06/06/2021 12:24 PM PRIVACY DIRECTOR 06/06/2021 12:29 PM PRIVACY DIRECTOR Glenn Kerr DO LAB BLOOD ORDERABLES Edit ed Result - Final [facility] [place] [address] * Influenza A/B, RSV, and COVID-19 PCR Nasopharyngeal (06/06/2021 12:24 PM PRIVACY DIRECTOR) [facility] COVID-19 RNA Negative Negative [facility] Influenza A RNA Negative Negative [facility] Influenza B RNA Negative Negative [facility] RSV RNA Negative Negative [facility] Comment: Interpretive data: Testing performed by [facility] ([phone]). This test is performed using the [employer] Xpert Xpress CoV-2/Flu/RSV plus assay. This is a multiplex, real-time reverse transcriptase PCR assay intended for the qualitative detection of nucleic acid from SARS-CoV-2, influenza A, influenza B, and respiratory syncytial virus. This assay has been reviewed by the FDA for Emergency Use Authorization (EUA). The performance characteristics have been verified by the [facility]. Results must be considered in the clinical context, and a negative result does not rule out infection. Interpretive Data last revised 2021. First COVID-19 test? No [facility] Employeed in healthcare? No [facility] Group care resident? No [facility] Hospitalized? No [facility] Is patient in ICU? No [facility] Symptomatic as defined by CDC? No [facility] Nasopharyngeal 06/06/2021 12 :24 PM PRIVACY DIRECTOR 06/06/2021 12:32 PM PRIVACY DIRECTOR Narrative [facility] - 06/06/2021 1:15 PM PRIVACY DIRECTOR Reason for testing?->Bed placement or semi-private room Known exposure to confirmed or suspected COVID-19 case?->No Glenn Kerr DO LAB MICROBIOLOGY - GENERA L ORDERABLES Final Result Performing Organization Address City/State/[facility] Co de Phone Number [facility] [place] [address] * XR Chest 1 View (06/06/2021 12:17 PM PRIVACY DIRECTOR) Anatomical Region Laterality Modality Body, Chest N/A Computed Radiogr aphy 06/06/2021 12:3 7 PM PRIVACY DIRECTOR Impressions 06/06/2021 12:37 PM PRIVACY DIRECTOR Comparison to 01/14/2020. Small lung volumes. No focal consolidation, pleural effusion, or pneumothorax. Normal cardiomediastinal silhouette accounting for small lung volumes. Electronically signed by: Miah Fisher M.D. Narrative 06/06/2021 12:37 PM PRIVACY DIRECTOR EXAMINATION: 1 view chest radiograph Procedure Note Miah Fisher MD - 06/06/2021 EXAMINATION: 1 view chest radiograph IMPRESSION: Comparison to 01/14/2020. Small lung volumes. No focal consolidation, pleural effusion, or pneumothorax. Normal cardiomediastinal silhouette accounting for small lung volumes. Electronically signed by: Miah Fisher M.D. Glenn Murraykatiuskadamon DO IMG XR PROCEDURES Final R esult * DE CRITICAL CARE ILL/INJURED PATIENT INIT 30-74 MIN (06/06/2021 12:10 PM PRIVACY DIRECTOR) Narrative Charles Andrew MD - 06/06/2021 12:10 PM PRIVACY DIRECTOR Charles Andrew MD ? 06/06/2021 12:11 PM [...] * (ABNORMAL) POCT ketone (06/06/2021 11:52 AM PRIVACY DIRECTOR) Ketones, Blood, POC 2.4(A) 0.1 - 0.5 mmol/L Blood specimen (specimen) 06/06/2021 11:52 AM PRIVACY DIRECTOR us Charles Andrew MD POINT OF CARE TEST ORDERABLES Final Result * (ABNORMAL) POCT glucose (06/06/2021 11:50 AM PRIVACY DIRECTOR) Glucose, POC 535(C) 70 - 199 mg/dL [facility] Glucose comment 1 RN Notified [facility] Blood 06/06/2021 11:5 0 AM PRIVACY DIRECTOR 06/06/2021 11:50 AM PRIVACY DIRECTOR us Notinfile Unknown LAB POCT ORDERABLES - DEVICE F inal Result [facility] One [facility] [place] [address] documented in this encounter Visit Diagnoses Diagnosis [...] Fever, PainIndications:Fever,Rogers n Given 06/06/2021 11:05 PM PRIVACY DIRECTOR 650 mg carvediloL (COREG) tablet 25 mg 25 mg, oral, 2 times daily with meals (bkfst, dinner), First dose on Sat06/07/21 at 0800 Given 06/07/2021 8:21 AM PRIVACY DIRECTOR 25 mg dextrose (D10W) 10% bolus 250 [...] Call MD for each episode of hypoglycemia. AGENT TELEGRAPHER STATES GLUTOSE-15 CONTAINS GLUCOSE 40% W/W (50% [...] 250 mL/hr Rate/Dose Change 06/06/2021 8:59 PM PRIVACY DIRECTOR 150 mL/hr 150 mL/hr New Bag 06/06/2021 7:25 PM PRIVACY DIRECTOR 100 mL/hr 100 mL/hr DULoxetine DR (CYMBALTA) extended release capsule 60 mg 60 mg, oral, Daily, First dose on Sat06/07/21 at 0900, Capsule may be opened and contents mixed with applesauce or apple juice ONLY. Do not crush, chew, cut, dissolve, open or otherwise manipulate tablet/capsule., Indications: Anxiety with DepressionIndications:Anxiety with Depression Given 06/07/2021 8:2 1 AM PRIVACY DIRECTOR 60 mg glucagon injection 1 mg 1 [...] break, or open. Given 06/07/2021 9:38 AM PRIVACY DIRECTOR 600 mg Given 06/07/2021 2:21 AM PRIVACY DIRECTOR 600 mg insulin glargine (LANTUS, SEMGLEE) 100 unit/mL injection 100 Units 100 Units, subcutaneous, 2 times daily, First dose on Sat06/06/21 at 2330, Do not hold if NPO. Do not mix with other insulins, Indications: Diabetes MellitusIndications:Diabete s Mellitus Given 06/07/2021 8:21 AM PRIVACY DIRECTOR 100 Units Left Upper Abdomen Given 06/06/2021 11:42 PM PRIVACY DIRECTOR 100 Units L eft Lower Abdomen insulin [...] Diabetes MellitusIndications:Diabetes Mellitus Given 06/07/2021 1:36 PM PRIVACY DIRECTOR 8 Units Left Lower Abdomen Given 06/07/2021 8:54 AM PRIVACY DIRECTOR 6 Units Ri ght Upper Arm insulin [...] Diabetes MellitusIndications:Diabetes Mellitus Given 06/07/2021 2:21 AM PRIVACY DIRECTOR 4 Units Right Lower Abdomen insulin lispro [...] ketoacidosisIndications:diabe tic ketoacidosis Given 06/06/2021 11:06 PM PRIVACY DIRECTOR 18 Units Left Upper Arm Given 06/06/2021 7:22 PM PRIVACY DIRECTOR 18 Units Le ft Upper Arm insulin [...] Diabetes MellitusIndications:Diabetes Mellitus Given 06/07/2021 1:36 PM PRIVACY DIRECTOR 20 Units Left Lower Abdomen Given 06/07/2021 8:55 AM PRIVACY DIRECTOR 20 Units Ri ght Upper Arm insulin [...] ketoacidosisIndications:diabe tic ketoacidosis Given 06/06/2021 4:45 PM PRIVACY DIRECTOR 36 Units Left Lower Abdomen Given 06/06/2021 1:23 PM PRIVACY DIRECTOR 36 Units Le ft Lower Abdomen Lactated Ringer's (LR) bolus 1,000 mL 1,000 mL, intravenous, at 1,000 mL/hr, Administer over 1 Hours, Once, On Sat06/06/21 at 1209, For 1 dose New Bag 06/06/2021 12:28 PM PRIVACY DIRECTOR 1,000 mL 1000 mL/hr lisinopriL (PRINIVIL,ZESTRIL) tablet 20 mg 20 mg, oral, Daily, First dose on Sat06/07/21 at 0900 Given 06/07/2021 8:21 AM PRIVACY DIRECTOR 20 mg magnesium sulfate 2 g/50 mL in water (premix) 2 g 2 g, intravenous, Administer over 60 Minutes, Once, On Sat06/06/21 at 1905, For 1 dose New Bag 06/06/2021 7:36 PM PRIVACY DIRECTOR 2 g ondansetron (ZOFRAN) injection 4 mg 4 mg, intravenous, Administer over 2 Minutes, Every 6 hours PRN, nausea, vomiting, if not tolerating PO, Starting on Sat06/06/21 at 2234, Indications: Nausea and VomitingIndications:Nausea and Vomiting ondansetron ODT (ZOFRAN-ODT) disintegrating tablet 4 mg 4 mg, oral, Once, On Sat06/06/21 at 1209, For 1 dose Given 06/06/2021 12:28 PM PRIVACY DIRECTOR 4 mg ondansetron ODT (ZOFRAN-ODT) disintegrating tablet [...] prior to administration. Given 06/06/2021 4:46 PM PRIVACY DIRECTOR 40 mEq potassium chloride 20 mEq/260 mL in sodium chloride 0.9% (premix) 20 mEq 20 mEq, intravenous, Administer over 2 Hours, Once, On Sat06/06/21 at 1906, For 1 dose, Indications: hypokalemiaIndications:hypokalemi a New Bag 06/06/2021 7:46 PM PRIVACY DIRECTOR 20 mEq sodium chloride 0.45% infusion 150 mL/hr, intravenous, Continuous, Starting on Sat06/06/21 at 1253, Decrease rate to 50 mL/hr when blood glucose reaches 250 mg/dL. New Bag 06/06/2021 10:26 PM PRIVACY DIRECTOR 50 mL/hr 50 mL/hr Rate/Dose Change 06/06/2021 7:24 PM PRIVACY DIRECTOR 50 mL/hr 50 mL/h r New Bag 06/06/2021 2:04 PM PRIVACY DIRECTOR 150 mL/hr 150 mL/hr sodium chloride 0.9% bolus 1,000 mL 1,000 mL, intravenous, at 1,000 mL/hr, Administer over 1 Hours, Once, On Sat06/06/21 at 1253, For 1 dose New Bag 06/06/2021 1:23 PM PRIVACY DIRECTOR 1,000 mL 1000 mL/hr sodium chloride 0.9% flush 0.5-20 mL 0.5-20 mL, intra-catheter, Every 8 hours scheduled, First dose on Sat06/06/21 at 2315, Flush volume based on line type and size. Given 06/07/2021 4:04 AM PRIVACY DIRECTOR 10 mL Given 06/06/2021 11:08 PM PRIVACY DIRECTOR 10 mL documented in this encounter Discontinued [...] Recently Administered Medications Times are shown in PRIVACY DIRECTOR. Scheduled Medication Order 06/05/2021 06/06/2021 06/07/2021 carvediloL [...] Call MD for each episode of hypoglycemia. AGENT TELEGRAPHER STATES GLUTOSE-15 CONTAINS GLUCOSE 40% W/W (50% [...] Call MD for each episode of hypoglycemia. AGENT TELEGRAPHER STATES GLUTOSE-15 CONTAINS GLUCOSE 40% W/W (50% [...] DISCHARGE INSTRUCTIONS 2 06/07/2021 ONCBCN NURSING COMMUNICATION [id number] 06/06 WEIGH PATIENT 1 06/06/2021 Consult [...] 06/06/2021 documented in this encounter Care Teams Director Summer Sessions Relationship Specialty Start Date End Date Jann Burrows MD [address] [place] [address] PCP - General Hematology 03/13/19 10/28/21 Mariana Monique MD [address] [place] [address] Referring Physician Internal Medicine 01/17/20 documented as of this encounter
--- OUTSIDE RECORDS SUMMARY | 2024-05-14 03:26 | XMS_ITS | Encounter Summary ---
Author Organization [facility] Address [address] [place] [address] Phone Care Team Providers Care Physical Therapist Aide Name Role Phone Mariana Monique MD Unavailable [phone] [facility] Provider Reason for Visit * Reason Onset Date Comments Hyperglycemia 11/12/2022 Encounter Details Date Type Department Care Team (Late st Contact Info) Description 11/12/[address] 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
--- OUTSIDE RECORDS SUMMARY | 2024-05-14 03:26 | XMS_ITS | Encounter Summary ---
Author Organization [facility] Healthcare Address [address] [place] [address] Care Team Providers Care Launchman Name Role Phone Jann Burrows MD Primary Care Provider [phone] Mariana Monique MD Unavailable [phone] Encounter Details Date Type Department Care Team (Late st Contact Info) Description 08/24/2021 11:20 AM CDT [address] [address] Sheldon Garcia MD [address] [id number] Discharge Disposition: Discharge to home or self care Social History Tobacco Use Types Packs/Day Years Used Date Smoking Tobacco: Never Smokeless Tobacco: Former Chew Quit: 01/13/2019 Alcohol Use Standard Drinks/Week Comments Not Currently 0 (1 standard drink = 0.6 oz pur e alcohol) Sex and Gender Information Value Date Recorded Sex Assigned at Not on file 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 Ph.D.; CLIA# [id number] Blood 08/24/2021 11:2 3 AM CDT 08/24/2021 1:14 PM CDT us Sheldon Garcia MD LAB BLOOD ORDERABLES Final Result [facility] ([facility]) [facility] Department of Laboratories [place], [place] [id number] documented in this encounter Visit Diagnoses Not on filedocumented in this encounter Care Teams Launchman Relationship Specialty Start Date End Date Jann Burrows MD [address] [facility] [address] [place] [address] PCP - General Hematology 03/13/19 10/28/21 Mariana Monique MD [address] [place] [address] Referring Physician Internal Medicine 01/17/20 documented as of this encounter
--- OUTSIDE RECORDS SUMMARY | 2024-05-14 03:26 | XMS_ITS | Encounter Summary ---
Author Organization [facility] Healthcare Address [address] [place] [address] Care Team Providers Care Aboriginal Community Council Member Name Role Phone Jann Burrows MD Primary Care Provider [phone] Mariana Monique MD Unavailable [phone] Encounter Details Date Type Department Care Team (Late st Contact Info) Description 10/13/2020 6:00 PM CDT Lab [facility] Advanced Medicine [facility] Advanced Medicine ([facility]) [address] [place] [address] Peter Styles Jr., MD [address] [facility] [address] [address] [place] [address] Essential hypertension; Type 2 diabetes mellitus without complication, with long-term current use of insulin ([facility]); Morbid obesity with BMI of 50.0-59.9, adult ([facility]); Elevated LFTs; Type 2 diabetes mellitus with ketoacidosis without coma, without long-term current use of insulin ([facility]) Discharge Disposition: Discharge to home or self care Social History Tobacco Use Types Packs/Day Years Used Date Smoking Tobacco: Never Smokeless Tobacco: Former Chew Quit: 01/13/2019 Alcohol Use Standard Drinks/Week Comments Not Currently 0 (1 standard drink = 0.6 oz pur e alcohol) Sex and Gender Information Value Date Recorded Sex Assigned at Not on file Legal Sex Male 5: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 Gender Identity Male 12/18/2017 12:38 PM CDT Sexual Orientation Not on file 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 Not on file Not [...] complication, with long-term current use of insulin ([facility]) Morbid obesity with BMI of 50.0-59.9, adult ([facility]) COMPREHENSIVE METABOLIC PANEL Routine 10/13/2020 5:58 PM CDT Essential hypertension Type 2 diabetes mellitus without complication, with long-term current use of insulin ([facility]) Morbid obesity with BMI of 50.0-59.9, adult ([facility]) Elevated LFTs documented in this encounter Results * (ABNORMAL) Lipid panel (10/13/2020 5:58 PM CDT) [facility] Signature Cholesterol 194 30 - 199 mg/dL [facility] Comment: Interpretive Data Ages < or = [...] on 2017. HDL 34(L) >=40 mg/dL [facility] Comment: Interpretive Data Ages < or = [...] 2017. LDL, calculated 111 <=129 mg/dL [facility] Comment: Interpretive Data Ages < or = [...] revised on 2017. Non-HDL Cholesterol 160 mg/dL [facility] Comment: Interpretive Data Ages < or [...] last revised on 2017. Chol/HDL ratio 6 [facility] Blood specimen (specimen) 10/13/2020 5:58 PM CDT 10/13/2020 6:09 PM CDT us Radames Burroughs MD PhD LAB BLOOD ORDERABLE S Final Result [facility] One [facility] Department [place] [address] * (ABNORMAL) Comprehensive metabolic panel (10/13/2020 5:58 PM CDT) Sodium 139 135 - 145 mmol/L [facility] Potassium, pl 4.5 3.3 - 4.9 mmol/L [facility] Chloride 102 97 - 110 mmol/L [facility] CO2 28 22 - 32 mmol/L [facility] Anion gap 9 2 - 15 mmol/L [facility] BUN 17 8 - 25 mg/dL [facility] Creatinine 0.92 0.80 - 1.30 mg/dL [facility] Glucose 98 70 - 199 mg/dL [facility] Comment: Interpretive Data Fasting glucose >/= [...] 2017. Calcium 9.8 8.5 - 10.3 mg/dL [facility] Bilirubin, total 0.4 0.1 - 1.2 mg/dL [facility] Protein, pl 8.3 6.5 - 8.5 g/dL [facility] Albumin 5.1(H) 3.5 - 5.0 g/dL [facility] Alk phos 69 40 - 130 Units/L [facility] ALT 39 7 - 55 Units/L [facility] AST 34 10 - 50 Units/L [facility] Blood specimen (specimen) 10/13/2020 5:58 PM CDT 10/13/2020 6:09 PM CDT us Radames Burroughs MD PhD LAB BLOOD ORDERABLE S Final Result [facility] One [facility] Department [place] [address] documented in this encounter Visit Diagnoses Diagnosis Essential hypertension Unspecified essential hypertension Type 2 diabetes mellitus without complication, with long-term current use of insulin (CMS/HCC) (HCC) Morbid obesity with BMI of 50.0-59.9, adult (HCC) Elevated LFTs Other abnormal blood chemistry Type 2 diabetes mellitus with ketoacidosis without coma, without long-term current use of insulin (HCC) documented in this encounter Care Teams Aboriginal Community Council Member Relationship Specialty Start Date End Date Jann Burrows MD [address] [facility] [address] [place] [address] PCP - General Hematology 03/13/19 10/28/21 Mariana Monique MD [address] [place] [address] Referring Physician Internal Medicine 01/17/20 documented as of this encounter
--- OUTSIDE RECORDS SUMMARY | 2024-05-14 03:26 | XMS_ITS | Encounter Summary ---
Author Organization [facility] Healthcare Address [address] [place] [address] Care Team Providers Care Solution Architect Name Role Phone Mariana Monique MD Unavailable [phone] Keila Jimenez MD Primary Care Provider Encounter Details Date Type Department Care Team (Late st Contact Info) Description 12/01/2021 Telephone [facility] Medicine Clinic [address] [facility] [address] [place] [address] Keila Jimenez MD [address] [facility] [address] [place] [address] Social History Tobacco Use Types [...] often do you attend chur ch or jehovah's witness services? 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 Schedulers, if patient calls back, please schedule PHV. Jose Campoverde [phone] * Telephone Encounter - Jose Saavedra - [...] on filedocumented in this encounter Care Teams Solution Architect Relationship Specialty Start Date End Date Keila Jimenez MD [address] [place] [address] PCP - General 10/29/21 Mariana Monique MD [address] [place], [place] [address] Referring Physician Internal Medicine 01/17/20 documented as of this encounter
--- OUTSIDE RECORDS SUMMARY | 2024-05-14 03:26 | XMS_ITS | Encounter Summary ---
Author Organization [facility] Healthcare Address [address] [place] [address] Care Team Providers Care Appliance Installer Name Role Phone Jann Burrows MD Primary Care Provider Mariana Monique MD Unavailable [phone] Encounter Details Date Type Department Care Team (Late st Contact Info) Description 06/07/2020 Orders Only [facility] Primary Care Medicine Clinic [address] 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 Not on file [...] 06/07/2020 3:56 PM CST Refilled Pen needles TION SALES SENIOR EXECUTIVE documented in this encounter Plan of Treatment Not on file documented as of this encounter Visit Diagnoses Not on filedocumented in this encounter Discontinued Medications Medication Sig Discontinue Reason Start Date End Da te pen needle, diabetic (BD Ultra-Fine Ibeth Pen Needle) 32 gauge x 5/32 needle USE DIRECTED 3 TIMES A DAY Reorder 06/01/2020 06/07/2020 documented as of this encounter Care Teams Appliance Installer Relationship Specialty Start Date End Date Jann Burrows MD [address] [place] [address] PCP - General Hematology 03/13/19 10/28/21 Mariana Monique MD [address] [place] [address] Referring Physician Internal Medicine 01/17/20 documented as of this encounter
--- OUTSIDE RECORDS SUMMARY | 2024-05-14 03:26 | XMS_ITS | Encounter Summary ---
Author Organization [facility] Healthcare Address [address] [place] [address] Care Team Providers Care Motor And Generator Brush Maker Name Role Phone aJnn Burrows MD Primary Care Provider [phone] Mariana Monique MD Unavailable [phone] Encounter Details Date Type Department Care Team (Late st Contact Info) Description 03/14/2021 Documentation [facility] Primary [facility] Medicine [facility] [address] [facility] [address] [place] [address] Jann Burrows MD [address] [facility] [address] [place] [address] Social History Tobacco Use Types Packs/Day Years Used Date Smoking Tobacco: Never Smokeless Tobacco: Former Chew Quit: 01/13/2019 Alcohol Use Standard Drinks/Week Comments Not Currently 0 (1 standard drink = 0.6 oz pur e alcohol) Sex and Gender Information Value Date Recorded Sex Assigned at Not on file 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 Gender Identity Male 12/18/2017 12:38 PM CDT Sexual Orientation Not on file 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 Not on file Not on file documented as of this encounter Progress Notes * Jann Burrows MD - 03/14/2021 8:14 AM CST error STRIAL MACHINERY MECHANIC documented in this encounter Plan of Treatment Not on file documented as of this encounter Visit Diagnoses Not on filedocumented in this encounter Care Teams Motor And Generator Brush Maker Relationship Specialty Start Date End Date Jann Burrows MD [address] [place] [address] PCP - General Hematology 03/13/19 10/28/21 Mariana Monique MD [address] [place] [address] Referring Physician Internal Medicine 01/17/20 documented as of this encounter
--- OUTSIDE RECORDS SUMMARY | 2024-05-14 03:26 | XMS_ITS | Encounter Summary ---
Author Organization [facility] Address [address] [facility] [address] [place] [address] Phone Care Team Providers Care Director Of Strategic Initiatives Name Role Phone Jann Burrows MD Primary Care Provider [phone] Mariana Monique MD Unavailable [phone] Reason for Visit * Consultation (Routine) - Closed Specialty Diagnoses / Procedures Referred By Contac t Referred To Contact Sleep Medicine Diagnoses Mood disorder (HCC) Sleep disturbance Abiola Villegas NP [facility] [address] [place] [address] Phone: tel: fax: [facility] [address] [facility] [address] [place] [address] Phone: tel: Referral ID Status Reason Start Date Expiration Date V isits Requested Visits Authorized [id number] Closed Specialty Services Required 06/19/2021 07/19/2022 1 1 Encounter Details Date Type Department Care Team (Late st Contact Info) Description 07/21/2021 8:30 AM CDT Telemedicine [facility] Neuro Sleep [address] [facility] 6th [address] [place] [address] Amanda Costello NP [address] [facility] [address] [place] [address] Sleep disturbance (Primary Dx); Morning headache; Morbid [...] on file 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 A registered andtrained diagnostic technologist will get you hooked up for the study and be available for any questions or concerns you may have during the night. There is also a sleep medicine physician magnetic resonance imaging coordinator overnight for the rare instance where there are any issues that require a physician's expertise. The [facility] is accredited by the [place] [employer], which ensures that our sleep center meets all standards and safety requirements to ensure patient-centeredhigh quality care. After your sleep test, we will call you or send you a message on [employer] with results and a management plan. This [...] 1. Stefan Pinon???Ganesh sleep apnea (5 min) https://www.[employer].com/watch?v=2PveFyHk9qC 2. [facility] - Sleep Apnea Treatment (13 min) https://www.XTWIPube.com/watch?v=nKdEbosOlII Tips for Healthy Sleep: The CDC and the [place] Academy [employer] recommend adults get [...] which took place via Real-time video connection ([facility], [employer] or similar). During the visit, I was located at home office in the [facility] and the patient was located home in [place]. The session started at 8:40 am and [...] in a telephone or video visitduring the [address] emergency. After being given an opportunity [...] Name: CRISTI NIXON Medical Record Number (MRN): [id number] Date of (): 1995 Encounter Date: 07/21/2021 [facility] Chief Complaint Cristi Nixon [...] him to fall backasleep. 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 Morbid obesity ([facility]) ([facility]) Portable/Home Sleep Study 4. Mood disorder ([facility]) ([facility]) Ambulatory referral to Sleep Medicine 5. Snoring [...] Where should this exam be performed? Answer: [facility] (All Locations) [167] Thank you for allowing me to participate in the care of your patient. If you have any questions, feel free to contact me. Sincerely, Amanda Costello APRN, STEAM BOX OPERATOR-C Sleep Medicine Center, Department of Neurology [facility] documented in this encounter Plan of Treatment [...] 07/21/2021 documented in this encounter Care Teams Director Of Strategic Initiatives Relationship Specialty Start Date End Date Jann Burrows MD [address] [place] [address] PCP - General Hematology 03/13/19 10/28/21 Mariana Monique MD [address] [place] [address] Referring Physician Internal Medicine 01/17/20 documented as of this encounter
--- OUTSIDE RECORDS SUMMARY | 2024-05-14 03:26 | XMS_ITS | Encounter Summary ---
Author Organization [facility] Address [address] [place] [address] Care Team Providers Care Upper Tier Name Role Phone Jann Burrows MD Primary Care Provider [phone] Mariana Monique MD Unavailable [phone] Encounter Details Date Type Department Care Team (Late st Contact Info) Description 06/09/2021 Telephone [facility] Primary Care Medicine Clinic [address] 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 Patient is scheduled for 06-19-21. Jc Campoverde [phone] NG SPREADER * Telephone Encounter - Sallie Pimentel - 06/09/2021 2:31 PM CST ----- Message from Anna Low RN sent at 06/07/2021 9:20 AM AWNING SPREADER ----- Regarding: hospital follow up request Patient needs hospital follow up appointment within 4-5 days. Plan for discharge tomorrow. Thank you, Anna Low RN, NG SPREADER documented in this encounter Plan of Treatment Not on file documented as of this encounter Visit Diagnoses Not on filedocumented in this encounter Care Teams Upper Tier Relationship Specialty Start Date End Date Jann Burrows MD [address] [place] [address] PCP - General Hematology 03/13/19 10/28/21 Mariana Monique MD [address] [place], [place] [address] Referring Physician Internal Medicine 01/17/20 documented as of this encounter
--- OUTSIDE RECORDS SUMMARY | 2024-05-14 03:26 | XMS_ITS | Encounter Summary ---
Author Organization [facility] Address [address] [place] [address] Phone Care Team Providers Care Chief Lending Officer Name Role Phone Jann Burrows MD Primary Care Provider [phone] Mariana Monique MD Unavailable [phone] Encounter Details Date Type Department Care Team (Latest Contact Info) Description 10/13/2020 4:40 PM CDT Office Visit [facility] Endocrinology Metabolism and Lipid [address] [facility] 5th [place] [address] [place] [address] Peter Styles Jr., MD [address] [place] [address] Essential hypertension (Primary Dx); Diabetic ketoacidosis without [...] on file 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 03-08-19: IGF-1 101 (225-500), creatinine 0.84, [...] with long-term current use of insulin ([facility]) Patient has reported blood sugars are consistent with this A1c measurement of 5.6%. He has an up-to-date urine microalbumin which was normal. He has referral to the deep fat cook fry but has not yet been seen. Had [...] Morbid obesity with BMI of 50.0-59.9, adult ([facility]) Counseled on weight loss and exercise - [...] coma associated with other specified diabetes mellitus ([facility]) documented in this encounter Results * (ABNORMAL) Comprehensive metabolic panel (10/13/2020 5:58 PM CDT) Sodium 139 135 - 145 mmol/L [facility] Potassium, pl 4.5 3.3 - 4.9 mmol/L [facility] Chloride 102 97 - 110 mmol/L [facility] CO2 28 22 - 32 mmol/L [facility] Anion gap 9 2 - 15 mmol/L [facility] BUN 17 8 - 25 mg/dL [facility] Creatinine 0.92 0.80 - 1.30 mg/dL [facility] Glucose 98 70 - 199 mg/dL [facility] Comment: Interpretive Data Fasting [...] 2017. Calcium 9.8 8.5 - 10.3 mg/dL [facility] Bilirubin, total 0.4 0.1 - 1.2 mg/dL [facility] Protein, pl 8.3 6.5 - 8.5 g/dL [facility] Albumin 5.1(H) 3.5 - 5.0 g/dL [facility] Alk phos 69 40 - 130 Units/L [facility] ALT 39 7 - 55 Units/L [facility] AST 34 10 - 50 Units/L [facility] Blood specimen (specimen) 10/13/2020 5:58 PM CDT 10/13/2020 6:09 PM CDT us Radames Burroughs MD PhD LAB BLOOD ORDERABLE S Final Result [facility] Department [place] [address] * (ABNORMAL) Lipid panel (10/13/2020 5:58 PM CDT) Cholesterol 194 30 - 199 mg/dL [facility] Comment: Interpretive Data Ages < or = [...] on 2017. Triglycerides 245(H) <=149 mg/dL [facility] Comment: Interpretive Data Ages < or = [...] on 2017. HDL 34(L) >=40 mg/dL [facility] Comment: Interpretive Data Ages < or = [...] revised on 2017. Non-HDL Cholesterol 160 mg/dL [facility] Comment: Interpretive Data Ages [...] last revised on 2017. Chol/HDL ratio 6 [facility] Blood specimen (specimen) 10/13/2020 5:58 PM CDT 10/13/2020 6:09 PM CDT us Radames Burroughs MD PhD LAB BLOOD ORDERABLE S Final Result [facility] Department [place] [address] * POCT hemoglobin A1c (10/13/2020 5:23 PM [...] chemistry documented in this encounter Care Teams Chief Lending Officer Relationship Specialty Start Date End Date Jann Burrows MD [address] [place] [address] PCP - General Hematology 03/13/19 10/28/21 Mariana Monique MD [address] [place] [address] Referring Physician Internal Medicine 01/17/20 documented as of this encounter
--- OUTSIDE RECORDS SUMMARY | 2024-05-14 03:27 | XMS_ITS | Encounter Summary ---
Author Organization [facility] Address [address] [place] [address] Care Team Providers Care Professional Development Director Name Role Phone Jann Burrows MD Primary Care Provider [phone] Encounter Details Date Type Department Care Team (Late st Contact Info) Description 08/10/2019 Patient Self-Triage [facility]/ Physicians [address] [place] [address] Mychart, Generic Provider [address] [place] [address] Social History Tobacco Use Types Packs/Day Years Used Date Smoking Tobacco: Never Smokeless Tobacco: Never Alcohol Use Standard Drinks/Week Comments Yes 24 (1 standard drink = 0.6 oz pu re alcohol) CAGE negative. Case per week. 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
--- OUTSIDE RECORDS SUMMARY | 2024-05-14 03:27 | XMS_ITS | Encounter Summary ---
Author Organization [facility] Address [address] [place] [address] Phone Care Team Providers Care Semiconductor Package Symbol Stamper Name Role Phone Jann Burrows MD Primary Care Provider [phone] Encounter Details Date Type Department Care Team (Late st Contact Info) Description 03/30/2019 Telephone [facility] Endocrinology Metabolism and Lipid [address] [facility] 5th [place] [address] [place] [address] Emilie Mclean RN Social History Tobacco Use Types Packs/Day Years Used Date Smoking Tobacco: Never Smokeless Tobacco: Never Alcohol Use Standard Drinks/Week Comments Yes 24 (1 standard drink = 0.6 oz pu re alcohol) CAGE negative. Case per week. 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 TITY ACCESS MANAGEMENT ARCHITECT * Telephone Encounter - Peter Styles MD - 03/31/2019 6:33 AM IDENTITY ACCESS MANAGEMENT ARCHITECT We are trying to simplify his regimen and use the lowest amount of insulin needed. He should be offlispro and just on metformin 1000 mg BID and U500 insulin 90 TID. Please have him try 85 units TID for a week and then go to 80 TID if there is no rise in glucoses. Thanks. TITY ACCESS MANAGEMENT ARCHITECT * Telephone Encounter - Emilie Mclean RN - 03/30/2019 4:57 PM IDENTITY ACCESS MANAGEMENT ARCHITECT Spoke with patient regarding his u500 prescription. He states he has been taking 90u TID. He said his am blood sugars are 90-100. Said at lunch and dinner they are typically 110-120. He wants to know if he can stay on that dose? Thanks TITY ACCESS MANAGEMENT ARCHITECT documented in this encounter Plan of Treatment Not on file documented as of this encounter Visit Diagnoses Not on filedocumented in this encounter Care Teams Semiconductor Package Symbol Stamper Relationship Specialty Start Date End Date Jann Burrows MD [address] [facility] [address] [place] [address] PCP - General Hematology 03/13/19 10/28/21 documented as of this encounter
--- OUTSIDE RECORDS SUMMARY | 2024-05-14 03:27 | XMS_ITS | Encounter Summary ---
Author Organization [facility] Address [address] [place] [address] Phone Care Team Providers Care Retail Tire Sales Manager Name Role Phone Jann Burrows MD Primary Care Provider [phone] Encounter Details Date Type Department Care Team (Late st Contact Info) Description 12/18/2019 Telephone [facility] Endocrinology Metabolism and Lipid [address] [facility] 5th [place] [address] [place] [address] Che Duff LPN Social History Tobacco Use Types Packs/Day Years Used Date Smoking Tobacco: Never Smokeless Tobacco: Current Alcohol Use Standard Drinks/Week Comments Yes 24 (1 standard drink = 0.6 oz pu re alcohol) CAGE negative. Case per week. 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
--- OUTSIDE RECORDS SUMMARY | 2024-05-14 03:27 | XMS_ITS | Encounter Summary ---
Author Organization [facility] Address [address] [place] [address] Care Team Providers Care Sustainability Coach Name Role Phone Jann Burrows MD Primary Care Provider [phone] Encounter Details Date Type Department Care Team (Late st Contact Info) Description 08/03/2019 Patient Self-Triage [facility] HealthCare/ Physicians [address] [place] [address] Mychart, Generic Provider [address] [place] [address] Social History Tobacco Use Types Packs/Day Years Used Date Smoking Tobacco: Never Smokeless Tobacco: Never Alcohol Use Standard Drinks/Week Comments Yes 24 (1 standard drink = 0.6 oz pu re alcohol) CAGE negative. Case per week. 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
--- OUTSIDE RECORDS SUMMARY | 2024-05-14 03:27 | XMS_ITS | Encounter Summary ---
Author Organization [facility] Address [address] [place] [address] Phone Care Team Providers Care Paper Cutter Name Role Phone Jann Burrows MD Primary Care Provider [phone] Reason for Visit * Reason Onset Date Comments Telehealth 09/23/2019 Encounter Details Date Type Department Care Team (Late st Contact Info) Description 09/23/2019 Telephone [facility] Endocrinology Metabolism and Lipid [address] [facility] 5th [place] [address] [place] [address] Moira Kelly MA Telehealth Social History Tobacco Use Types Packs/Day Years Used Date Smoking Tobacco: Never Smokeless Tobacco: Never Alcohol Use Standard Drinks/Week Comments Yes 24 (1 standard drink = 0.6 oz pu re alcohol) CAGE negative. Case per week. 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
--- OUTSIDE RECORDS SUMMARY | 2024-05-14 03:27 | XMS_ITS | Encounter Summary ---
Author Organization 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
--- OUTSIDE RECORDS SUMMARY | 2024-05-14 03:27 | XMS_ITS | Encounter Summary ---
Author Organization [facility] Address [address] [place] [address] Care Team Providers Care Porcelain Mixer Name Role Phone Jann Burrows MD Primary Care Provider [phone] Encounter Details Date Type Department Care Team (Late st Contact Info) Description 05/27/2019 9:20 AM MACHINE ROUGH ROUNDER Lab [facility] Outpatient Health [address] [place] [address] [place] [address] Hypoglycemia Social History Tobacco Use Types Packs/Day Years Used Date Smoking Tobacco: Never Smokeless Tobacco: Never Alcohol Use Standard Drinks/Week Comments Yes 24 (1 standard drink = 0.6 oz pu re alcohol) CAGE negative. Case per week. 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 Not on file Not on file documented as of this encounter Plan of Treatment Not on file documented as of this encounter Procedures Procedure Name Priority Date/Time Associated Diagnosis Comments HEPATIC FUNCTION PANEL Routine 05/27/2019 9:25 AM MACHINE ROUGH ROUNDER Hypoglycemia BASIC METABOLIC PANEL Routine 05/27/2019 9:25 AM MACHINE ROUGH ROUNDER Hypoglycemia documented in this encounter Results * Basic metabolic panel (05/27/2019 9:25 AM MACHINE ROUGH ROUNDER) Sodium 141 135 - 145 mmol/L [facility] Potassium, pl 3.9 3.3 - 4.9 mmol/L [facility] Chloride 104 97 - 110 mmol/L [facility] CO2 28 22 - 32 mmol/L [facility] Anion gap 9 2 - 15 mmol/L [facility] BUN 17 8 - 25 mg/dL [facility] Creatinine 0.90 0.80 - 1.30 mg/dL [facility] Glucose 94 70 - 199 mg/dL [facility] Comment: Interpretive Data Fasting glucose [...] 2017. Calcium 9.7 8.5 - 10.3 mg/dL [facility] Blood specimen (specimen) 05/27/2019 9:25 AM MACHINE ROUGH ROUNDER 05/27/2019 10:18 AM MACHINE ROUGH ROUNDER us Shannan Zavala MD LAB BLOOD ORDERABLES Final Re sult [facility] Department [place] [address] * (ABNORMAL) Hepatic function panel (05/27/2019 9:25 AM MACHINE ROUGH ROUNDER) Bilirubin, total 0.3 0.1 - 1.2 mg/dL [facility] Bilirubin, direct <0.2 0.1 - 0.3 mg/dL [facility] Protein, pl 8.0 6.5 - 8.5 g/dL [facility] Albumin 4.7 3.5 - 5.0 g/dL [facility] Alk phos 61 40 - 130 Units/L [facility] ALT 69(H) 7 - 55 Units/L [facility] AST 41 10 - 50 Units/L [facility] Blood specimen (specimen) 05/27/2019 9:25 AM MACHINE ROUGH ROUNDER 05/27/2019 10:18 AM MACHINE ROUGH ROUNDER us Shannan Zavala MD LAB BLOOD ORDERABLES Final Re sult [facility] Department [place] [address] documented in this encounter Visit Diagnoses Diagnosis Hypoglycemia Hypoglycemia, unspecified documented in this encounter Care Teams Porcelain Mixer Relationship Specialty Start Date End Date Jann Burrows MD [address] [facility] [address] [place] [address] PCP - General Hematology 03/13/19 10/28/21 documented as of this encounter
--- OUTSIDE RECORDS SUMMARY | 2024-05-14 03:27 | XMS_ITS | Encounter Summary ---
Author Organization [facility] Healthcare Address [address] [place] [address] Care Team Providers Care Ocular Pathologist Name Role Phone Jann Burrows MD Primary Care Provider Mariana Self MD Unavailable [phone] Reason for Visit * Reason Comments COVID-19 EVALUATION Encounter Details Date Type Department Care Team (Latest Contact Info) Description 01/14/2020 5:54 PM CDT - 01/17/2020 10:35 AM CDT Hospital Encounter [facility] IMU [address] [place] [address] Francine Denis MD [address] [place] [address] Berenice Lassiter MD [address] [place] [address] Giuliano Linton Jr., MD [address] [place] [address] [place] [address] Pneumonia due to COVID-19 virus (Primary Dx); [...] file Legal Sex Male 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 Gender Identity Male 12/18/2017 12:38 PM CDT Sexual Orientation Not on file 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 Not on file [...] UNSPECIFIED Tachycardia, unspecified - TACHYCARDIA, UNSPECIFIED Other intermediate (current) drug therapy - OTHER MANAGER CHEMISTRY (CURRENT) DRUG THERAPY care home (current) use of insulin (HCC) - CORRECTION (CURRENT) USE OF INSULIN Family history of diabetes mellitus - FAMILY HISTORY OF DIABETES MELLITUS documented in this encounter Discharge Summaries * Giuliano Linton Jr., MD - 01/17/2020 10:02 AM CDT [place], [place] Hospitalist Discharge Summary Patient Name: Cristi Velez Patient : 1995 Room/Bed: [id number] Admission Date/Time: 01/14/2020 5:54 PM Discharge date: [...] 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 Continue Decadron day 2 of 10 maximum [...] 1 View Portable Result Date: 01/14/2020 Narrative: [facility] Imaging Result Name: CRISTI VELEZ OrderingPhys: FRANCINE DENIS Age: 24 Date of : 1995 Accession Number: [id number] Date of Service: 01/14/2020 Gender: M EXAM [...] by Radames Pritchard M.D. AB: Report ID: [id number] Reading Location: [id number] Medications: Your medication list CONTINUE taking these [...] education OneTouch Delica Plus Lancet 33 [facility] Generic drug: lancets lisinopriL 40 [...] Internal Medicine Relationship: Referring Physician Uzma HARDIN [address] [facility] [address] Next Steps: Follow up Instructions: Please call to schedule a telemedicine follow-up appointment in 1- 2 weeks. Questions: Instructions for follow-up (appointment date and time): Please call to schedule a telemedicine follow-up appointment in 1-2 weeks. To provider: DARELL SELFILY NITIN Total time spent on day of discharge 25 minutes Signed: Giuliano Linton Jr., MD Internal Medicine - Hospitalist [facility] - Adult Hospitalist Service VIRTUAL VISIT [...] was ALWAYS EXCELLENT! Please call IMU at [phone] if you have any questions regarding your care. Wishing you continued improvement during your recovery. Your Intermediate Care Unit Team * Attachments The following attachments cannot be sent through Care Everywhere. * Community Acquired Pneumonia (Discharge Care) (Luxembourgish) documented in this encounter Medications at Time [...] Jr., MD - 01/16/2020 5:31 PM CDT [facility] Hospitalist Service Progress Note Patient Name: Cristi Velez Patient : 1995 Age/Sex: 24 y.o. male Room/Bed: [id number] Admission Date/Time: 01/14/2020 5:54 PM Date: 01/16/2020 [...] 1 View Portable Result Date: 01/14/2020 Narrative: [facility] Imaging Result Name: CRISTI VELEZ OrderingPhys: FRANCINE DENIS Age: 24 Date of : 1995 Accession Number: [id number] Date of Service: 01/14/2020 Gender: M EXAM [...] by Radames Pritchard M.D. 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 Continue Decadron day 2 of . No [...] Linton Jr., MD Internal Medicine - Hospitalist [facility] - Adult Hospitalist Service 01/16/2020 5:31 PM * Giuliano Linton Jr., MD - 01/15/2020 3:15 PM CDT [facility] Hospitalist Service Progress Note Patient Name: Cristi Velez Patient : 1995 Age/Sex: 24 y.o. male Room/Bed: [id number] Admission Date/Time: 01/14/2020 5:54 PM Date: 01/15/2020 [...] 1 View Portable Result Date: 01/14/2020 Narrative: [facility] Imaging Result Name: CRISTI VELEZ OrderingPhys: FRANCINE CINDIREENA Age: 24 Date of : 1995 Accession Number: [id number] Date of Service: 01/14/2020 Gender: M EXAM [...] by Radames Pritchard M.D. 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 Continue Decadron day 2 of 10. No [...] Linton Jr., MD Internal Medicine - Hospitalist [facility] Adult Hospitalist Service 01/15/2020 3:15 PM * Anisha Smith, [facility] - 01/15/2020 11:33 AM CDT Adjust to [...] as needed MARSHALL done * Sal Dutta, [facility] - 01/15/2020 9:21 AM CDT Images from [...] NPH/steroid dosed BID should be entered at [phone] only so fingerstick blood sugars are available. NPH orders should include ? Hold if FBS <110.? 5. Pharmacists will enter Hypoglycemia Protocol orders in [facility] when ordering insulin on an insulin na??ve patient without current Hypoglycemia Protocol orders. 6. Pharmacists will enter Point of Care blood glucose (POCT) orders in [facility] when ordering insulin on an insulin [...] Thank you, Sal Dutta RPh [facility] Pharmacy department * Izabella Beckwith - 01/15/2020 [...] more, Physical finding, Lab abnormality ?? Interventions: [place] diet preferences within the limits of nutrition [...] Type of Weight Used for Estimated Kcals: Fries ?? MSJ Total Energy Needs: 3251 kcal using ?? JALIL State Total Energy Needs + Fever Factor: 3251 ?? Total Protein Estimated Needs (gm): 129.74 Protein Needs Based on g/k.3 Type of Weight Used for Estimated Protein : Fries. ?? Total Fluid Estimated Needs: 2495 Fluid [...] ??? Anxiety ??? Depression ??? Diabetes mellitus ([facility]) ??? HTN (hypertension) ??? Metabolic syndrome ??? Morbid obesity with BMI of 50.0-59.9, adult ([facility]) 07/10/2017 Medications and Lab Review: Scheduled Meds: [...] Lassiter MD - 01/14/2020 9:54 PM CDT [facility] Adult Hospitalist Service History and Physical Patient Name: Cristi Velez Patient : 1995 Age/Sex: 24 y.o. male Room/Bed: [place] [id number]/[id number] Admission Date/Time: 01/14/2020 5:54 PM Date: 01/14/2020 Time: 9:55 PM Primary Care Physician: Jann Burrows MD PCP Office Location: [address] [place] [address] PCP SUBJECTIVE: Cristi Velez is a 24 [...] 90 tablet 3 ??? blood glucose diagnostic (PlasmonixTouch Ultra Test) strip Test daily before all [...] ??? OneTouch Delica Plus Lancet 33 gauge [facility] ??? pen needle, diabetic (BD [...] tongue midline, mucosa moist Lungs CTA Heart: [id number] Abd: +BS, Non Tender, Non distended, No [...] 1 View Portable Result Date: 01/14/2020 Narrative: [facility] Imaging Result Name: CRISTI VELEZ OrderingPhys: FRANCINE DENIS Age: 24 Date of : 1995 Accession Number: [id number] Date of Service: 01/14/2020 Gender: M EXAM [...] by Radames Pritchard M.D. AB: Report ID: [id number] Reading Location: [id number] ASSESSMENT AND PLAN: Principal Problem: Pneumonia due [...] Berenice Lassiter MD Internal Medicine - Hospitalist [facility] - Adult Hospitalist Service CC: Jann Burrows [...] No known fever. 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 His regular [...] (LIPITOR) 20 mg tablet blood glucose diagnostic (Threefold Photosuch Ultra Test) strip blood-glucose meter kit carvedilol [...] by Radames Pritchard M.D. AB: Report ID: [id number] Reading Location: [place] [address] Chest x-ray is Poor quality. Poor penetration. EKG (if obtained): (All EKGs are interpreted by myself in the absence of a remote control mirror installer) Rate is approximately 100-120, regular sinus rhythm, [...] Comment: COVID -19 swab obtained Saturday at [facility] and [place]. Positive result phone call back today per patient's report. By: Francine Denis MD Clinical Impression: 1. Pneumonia due to COVID-19 virus 2. Tachycardia 3. Elevated LFTs Disposition: Admit (Please note that portions of this note may have been completed with a voice recognition program. Couturiere errors occur. Please contact me for any [...] 270(H) 71 - 98 mg/dL [facility] ([place]ARG[place]ET) Blood specimen (specimen) 01/17/2020 8:12 AM CDT 01/17/2020 8:12 AM CDT Giuliano Linton Jr., MD LAB POCT ORDERABLES - DEVICE Final Result Performing Organization Address City/State/[facility] Co de Phone Number [facility] ([place]ARGARET) 1 [facility] [place] [address] * eGFR (01/17/2020 7:29 AM CDT) Pathologist [facility] eGFR 132 mL/min/1.7 3 m2 [facility] ([place]ARGARET) Comment: Interpretive Data Reference Interval Normal ?>/= 90 mL/min/1.73m2 Mildly decreased* ? 60 - 89 mL/min/1.73m2 Mildly to moderately decreased ?45 - 59 mL/min/1.73m2 Moderately to severely decreased ??30 - 44 mL/min/1.73m2 Severely decreased ?15 - 29 mL/min/1.73m2 Kidney Failure ?< 15 ??mL/min/1.73m2 *Relative to young adult level If -U[place] multiply value by 1.16. Estimated glomerular filtration [...] LAB BLOOD ORDERABLE S Final Result [facility] ([place]) 1 [facility] [place] [address] * (ABNORMAL) Comprehensive metabolic panel (01/17/2020 7:29 [...] ORDERABLE S Final Result Performing Organization Address City/[facility]/ZIP Co de Phone Number [facility] ([place]) 1 [facility] [place] [address] * Phosphorus (01/17/2020 7:29 AM CDT) Phosphorus, pl 3.9 2.3 - 4.5 mg/dL [facility] ([place]) Blood specimen (specimen) 01/17/2020 7:29 AM CDT 01/17/2020 7:43 AM CDT Giuliano Linton Jr., MD LAB BLOOD ORDERABLE S Final Result [facility] ([place]) 1 [facility] [place] [address] [place] [address] * Magnesium (01/17/2020 7:29 AM CDT) Magnesium 2.1 1.4 - 2.5 mg/dL [facility] ([place]) Blood specimen (specimen) 01/17/2020 7:29 AM CDT 01/17/2020 7:43 AM CDT us Giuliano Linton Jr., MD LAB BLOOD ORDERABLE S Final Result [facility] ([place]) 1 [facility] [place] [address] * CBC without differential (01/17/2020 7:29 AM CDT) WBC 5.3 3.8 - 9.9 K/cumm [facility] ([place]) Hgb 13.7 13.0 - 17.5 g/dL [facility] ([place]) Hct 39.4 38.9 - 50.3 % [facility] ([place]) Plt 228 150 - 400 K/cumm [facility] ([place]) MPV 10.0 9.1 - 12.3 fL [facility] ([place]) RBC 4.69 4.30 - 5.80 M/cumm [facility] ([place]) MCV 84.0 81.3 - 96.4 fL [facility] ([place]) MCH 29.2 27.1 - 33.3 pg [facility] ([place]) MCHC 34.8 32.3 - 35.7 g/dL [facility] ([place]) RDW CV 11.9 11.1 - 14.9 % [facility] ([place]) RDW SD 36.4 35.7 - 48.1 fL [facility] ([place]) NRBC abs 0.00 0.00 - 0.01 K/cumm [facility] ([place]) Blood specimen (specimen) 01/17/2020 7:29 AM CDT 01/17/2020 7:43 AM CDT us Giluiano Linton Jr., MD LAB BLOOD ORDERABLE S Final Result [facility] ([place]) 1 [facility] [place] [place] [address] * (ABNORMAL) POCT glucose (01/17/2020 1:51 AM CDT) Glucose, POC 294(H) 71 - 98 mg/dL [facility] ([place]) Blood specimen (specimen) 01/17/2020 1:51 AM CDT 01/17/2020 1:51 AM CDT Giuliano Linton Jr., MD LAB POCT ORDERABLES - DEVICE Final Result Performing Organization Address [facility]/ZIP Co de Phone Number [facility] ([place]) 1 [facility] [address] [place] [address] * (ABNORMAL) POCT glucose (01/16/2020 8:39 PM CDT) Glucose, POC 296(H) 71 - 98 mg/dL [facility] Blood specimen (specimen) 01/16/2020 8:39 PM CDT 01/16/2020 8:39 PM CDT Giuliano Linton Jr., MD LAB POCT ORDERABLES - DEVICE Final Result Performing Organization Address [facility] Co de Phone Number [facility] ([place]) 1 [facility] [address] [place] [address] * (ABNORMAL) POCT glucose (01/16/2020 5:15 PM CDT) Glucose, POC 307(H) 71 - 98 mg/dL [facility] ([place]) Blood specimen (specimen) 01/16/2020 5:15 PM CDT 01/16/2020 5:15 PM CDT Giuliano Linton Jr., MD LAB POCT ORDERABLES - DEVICE Final Result Performing Organization Address City/[facility]/ZIP Co de Phone Number [facility] ([place]) 1 [facility] [address] [place] [address] * (ABNORMAL) POCT glucose (01/16/2020 11:53 AM CDT) Glucose, POC 270(H) 71 - 98 mg/dL [facility] ([place]) Blood specimen (specimen) 01/16/2020 11:53 AM CDT 01/16/2020 11:53 AM CDT us Giuliano Linton Jr., MD LAB POCT ORDERABLES - DEVICE Final Result Performing Organization Address City/[facility]/ZIP Co de Phone Number [facility] ([place]ARGARET) 1 [place] [address] * (ABNORMAL) POCT glucose (01/16/2020 7:46 AM CDT) Glucose, POC 309(H) 71 - 98 mg/dL TR[facility] ([place]ET) Blood specimen (specimen) 01/16/2020 7:46 AM CDT 01/16/2020 7:46 AM CDT us Giuliano Linton Jr., MD LAB POCT ORDERABLES - DEVICE Final Result Performing Organization Address [facility] de Phone Number TRACIE [facility] ([place]ET) 1 [facility] [address] [place] [address] * eGFR (01/16/2020 7:03 AM CDT) [facility] eGFR 143 mL/min/1.7 3 m2 [facility] ([place]ARGARET) Comment: Interpretive Data Reference Interval Normal ?>/= 90 mL/min/1.73m2 Mildly decreased* ? 60 - 89 mL/min/1.73m2 Mildly to moderately decreased ?45 - 59 mL/min/1.73m2 Moderately to severely decreased ??30 - 44 mL/min/1.73m2 Severely decreased ?15 - 29 mL/min/1.73m2 Kidney Failure ?< 15 ??mL/min/1.73m2 *Relative to young adult level If -[place]rugu[place] multiply value by 1.16. Estimated glomerular filtration [...] ORDERABLE S Final Result Performing Organization Address City/[facility] Co de Phone Number [facility] ([place]ARGARET) 1 [facility] [place] [address] * D-dimer, quantitative (01/16/2020 7:03 AM CDT) [...] ORDERABLE S Final Result Performing Organization Address City/[facility]/ZIP Co de Phone Number [facility] ([place]) 1 [facility] [place] [address] * (ABNORMAL) Comprehensive metabolic panel (01/16/2020 7:03 [...] S Final Result [facility] ([place]) 1 [facility] [address] [place] [address] * (ABNORMAL) Ferritin (01/16/2020 7:03 AM CDT) Ferritin 1,523(H) 30 - 400 ng/mL [facility] ([place]) Blood specimen (specimen) 01/16/2020 7:03 AM CDT 01/16/2020 7:05 AM CDT us Giuliano Linton Jr., MD LAB BLOOD ORDERABLE S Final Result Performing Organization Address City/[facility]/ZIP Co de Phone Number [facility] ([place]) 1 [facility] [place] [address] * Phosphorus (01/16/2020 7:03 AM CDT) Phosphorus, pl 3.9 2.3 - 4.5 mg/dL [facility] ([place]) Blood specimen (specimen) 01/16/2020 7:03 AM CDT 01/16/2020 7:05 AM CDT us Giuliano Linton Jr., MD LAB BLOOD ORDERABLE S Final Result [facility] ([place]) 1 [facility] [place] [address] * Magnesium (01/16/2020 7:03 AM CDT) Magnesium 2.3 1.4 - 2.5 mg/dL [facility] ([place]) Blood specimen (specimen) 01/16/2020 7:03 AM CDT 01/16/2020 7:05 AM CDT us Giuliano Linton Jr., MD LAB BLOOD ORDERABLE S Final Result [facility] ([place]) 1 [facility] [address] [place] [address] * CBC without differential (01/16/2020 7:03 AM CDT) WBC 4.4 3.8 - 9.9 K/cumm [facility] ([place]) Hgb 13.6 13.0 - 17.5 g/dL [facility] ([place]) Hct 39.5 38.9 - 50.3 % [facility] ([place]) Plt 235 150 - 400 K/cumm [facility] ([place]) MPV 9.6 9.1 - 12.3 fL [facility] ([place]) RBC 4.72 4.30 - 5.80 M/cumm [facility] ([place]) MCV 83.7 81.3 - 96.4 fL [facility] ([place]) MCH 28.8 27.1 - 33.3 pg [facility] ([place]) MCHC 34.4 32.3 - 35.7 g/dL [facility] ([place]) RDW CV 11.9 11.1 - 14.9 % [facility] ([place]) RDW SD 36.1 35.7 - 48.1 fL [facility] ([place]) NRBC abs 0.00 0.00 - 0.01 K/cumm [facility] ([place]) Blood specimen (specimen) 01/16/2020 7:03 AM CDT 01/16/2020 7:05 AM CDT Giuliano Linton Jr., MD LAB BLOOD ORDERABLE S Final Result [facility] ([place]) 1 [facility] [place] [address] * (ABNORMAL) POCT glucose (01/16/2020 6:32 AM CDT) Glucose, POC 274(H) 71 - 98 mg/dL [facility] ([place]) Blood specimen (specimen) 01/16/2020 6:32 AM CDT 01/16/2020 6:32 AM CDT Giuliano Linton Jr., MD LAB POCT ORDERABLES - DEVICE Final Result Performing Organization Address City/[facility]/ZIP Co de Phone Number [facility] ([place]ARG[place]ET) 1 [facility] [address] [address] * (ABNORMAL) POCT glucose (01/16/2020 2:20 AM CDT) Glucose, POC 304(H) 71 - 98 mg/dL [facility] ([place]) Blood specimen (specimen) 01/16/2020 2:20 AM CDT 01/16/2020 2:20 AM CDT us Giuliano Linton Jr., MD LAB POCT ORDERABLES - DEVICE Final Result Performing Organization Address [facility] Co de Phone Number [facility] ([place]ARGARET) 1 [facility] [address] [address] * (ABNORMAL) POCT glucose (01/15/2020 8:38 PM CDT) Glucose, POC 326(H) 71 - 98 mg/dL [facility] ([place]) Blood specimen (specimen) 01/15/2020 8:38 PM CDT 01/15/2020 8:38 PM CDT Giuliano Linton Jr., MD LAB POCT ORDERABLES - DEVICE Final Result Performing Organization Address City/[facility]/ZIP Co de Phone Number [facility] ([place]ARGARET) 1 [facility] [address] [place] [address] * Procalcitonin (01/15/2020 6:55 PM CDT) Procalcitonin <0.10 <=0.15 ng/mL [facility] ([place]) Comment: Test Performed by: [facility] [address] [place] [address] [employer]or[employer]: Josiah Turk M.D. Ph.D.; CLIA# [id number] Blood specimen (specimen) 01/15/2020 6:55 PM CDT 01/15/2020 6:57 PM CDT Narrative [facility] ([place]) - 01/19/2020 9:40 AM CDT Sent bag up at01/15/2020 16:33:03 CDT [id number] us Giuliano Linton Jr., MD LAB BLOOD ORDERABLE S Final Result Performing Organization Address City/[facility]/ZIP Co de Phone Number [facility] ([place]) 1 [facility] [address] [place] [address] * (ABNORMAL) POCT glucose (01/15/2020 5:01 PM CDT) Glucose, POC 334(H) 71 - 98 mg/dL [facility] ([place]) Blood specimen (specimen) 01/15/2020 5:01 PM CDT 01/15/2020 5:01 PM CDT us Giuliano Linton Jr., MD LAB POCT ORDERABLES - DEVICE Final Result Performing Organization Address [facility] Co de Phone Number [facility] ([place]ARG[place]ET) 1 [facility] [address] [place] [address] * (ABNORMAL) POCT glucose (01/15/2020 11:28 AM CDT) Glucose, POC 319(H) 71 - 98 mg/dL TRACIE [facility] ([place]) Comment:Glu2: RN/ Notified Blood specimen (specimen) 01/15/2020 11:28 AM CDT 01/15/2020 11:28 AM CDT us Berenice Lassiter MD LAB POCT ORDERABLES - DEVICE Final Result Performing Organization Address City/[facility]/ZIP Co de Phone Number [facility] ([place]) 1 [facility] [address] [address] * (ABNORMAL) POCT glucose (01/15/2020 8:01 AM CDT) Glucose, POC 242(H) 71 - 98 mg/dL [facility] ([place]) Blood specimen (specimen) 01/15/2020 8:01 AM CDT 01/15/2020 8:01 AM CDT us Giuliano Linton Jr., MD LAB POCT ORDERABLES - DEVICE Final Result [facility] ([place]) 1 [facility] [place] [address] * (ABNORMAL) POCT glucose (01/15/2020 2:37 AM CDT) Glucose, POC 189(H) 71 - 98 mg/dL [facility] ([place]) Blood specimen (specimen) 01/15/2020 2:37 AM CDT 01/15/2020 2:37 AM CDT us Berenice Lassiter MD LAB POCT ORDERABLES - DEVICE Final Result Performing Organization Address [facility] Co de Phone Number [facility] ([place]) 1 [facility] [place] [address] * (ABNORMAL) POCT glucose (01/14/2020 10:04 PM CDT) Glucose, POC 133(H) 71 - 98 mg/dL [facility] ([place]) Blood specimen (specimen) 01/14/2020 10:04 PM CDT 01/14/2020 10:04 PM CDT us Berenice Lassiter MD LAB POCT ORDERABLES - DEVICE Final Result [facility] ([place]) 1 [facility] [place] [address] * Troponin T (01/14/2020 9:35 PM CDT) [...] limit for troponin assay. ??Journal of the [place] College of Cardiology 2012;60:1581-98. Current Interpretive Data Last Revised Date: 2017. Blood specimen (specimen) 01/14/2020 9:35 PM CDT 01/14/2020 9:41 PM CDT us Francine Denis MD LAB BLOOD ORDERABLES Fin al Result [facility] ([place]ICA) 1 [facility] [place] [address] * Blood culture Blood Antecubital, left (01/14/2020 6:35 PM CDT) Report Final Report: No growth [facility] ([place]ESSICA) Comment:Testing performed by : [facility], 1 [facility], [place]., [address] Blood specimen (specimen) (Antecubital, left) 01/14/2020 6:35 [...] characteristics have been verified by the [facility] Microbiology Laboratory. 5. ?For questions about this culture, contact the Microbiology Laboratory at [phone]. Interpretive data was last revised on 2019. us Francine Denis MD LAB MICROBIOLOGY - GENER AL ORDERABLES Final Result [facility] ([place]) 1 [facility] [place] [address] * XR CHEST 1 VIEW PORTABLE (01/14/2020 [...] PM T: ??01/14/2020 7:53 PM Report ID: [id number] Reading Location: ??[id number] Narrative 01/14/2020 7:56 PM CDT [facility] ?Imaging Result Name: CRISTI VELEZ ? Ordering Phys: FRANCINE DENIS Age: 24 ?Date of : 1995 ? Accession Number: [id number] Date of Service: 01/14/2020 ??Gender: M EXAM [...] Procedure Note Radames Pritchard MD - 01/14/2020 [facility] Imaging Result Name: TIFFANI CRISTI Darrick Ordering Phys: FRANCINE DENIS Age: 24 Date of : 1995 Accession Number: [id number] Date of Service: 01/14/2020 Gender: M EXAM [...] by Radames Pritchard M.D. AB: Report ID: [id number] Reading Location: [place] [address] us Francine Denis MD IMG XR PROCEDURES Final Result * ECG 12 lead (01/14/2020 6:24 PM CDT) 01/14/2020 6:24 PM CDT Narrative [facility] - 01/15/2020 12:54 PM CDT Vent Rate: 0 bpm RR Interval: 0 msec VA Interval: 0 msec QRS Duration: 0 msec QT Interval: 0 msec QTC Interval: 0 msec P-R-T Salvo: 0 - 0 - 0 degrees Sinus tachycardia Old inferior infarct Electronically Signed By: Dr Giuliano Velasco Francine Denis MD ECG ORDERABLES Final Re sult Performing Organization Address [facility]/ZIP Co de Phone Number [facility] [employer] [facility] * (ABNORMAL) Ferritin (01/14/2020 6:07 PM CDT) Ferritin 1,661(H) 30 - 400 ng/mL [facility] ([place]) Blood specimen (specimen) 01/14/2020 6:07 PM CDT 01/14/2020 6:53 PM CDT Francine Denis MD LAB BLOOD ORDERABLES Arsh crisetl Result - Final Performing Organization Address [facility] Co de Phone Number [facility] ([place]ARG[place]ET) 1 [facility] [employer] [place] [address] [place] [address] * (ABNORMAL) CRP (acute phase) (01/14/2020 6:07 PM CDT) CRP 25.6(H) <=10.0 mg/L [facility] (JESSICA) Blood specimen (specimen) 01/14/2020 6:07 PM CDT 01/14/2020 6:53 PM CDT Francine Denis MD LAB BLOOD ORDERABLES Fin al Result Performing Organization Address [facility] Co de Phone Number TRACIE LEIVA (JESSICA) 1 [facility] [place] [address] [address] * D-dimer, quantitative (01/14/2020 6:07 PM CDT) Pathologist [facility] D-Dimer 319 <=499 ng/mL [facility] (MARGARET) Comment: Interpretive data FDA approved the D-dimer, [...] MD LAB BLOOD ORDERABLES Fin al Result [facility] (MARGARET) 1 [facility] Department of Laboratories [place], [place] [id number] * eGFR (01/14/2020 6:06 PM CDT) [facility] eGFR 126 mL/min/1.7 3 m2 TRACIE [facility] (MARGARET) Comment: Interpretive Data Reference Interval Normal ?>/= 90 mL/min/1.73m2 Mildly decreased* ? 60 - 89 mL/min/1.73m2 Mildly to moderately decreased ?45 - 59 mL/min/1.73m2 Moderately to severely decreased ??30 - 44 mL/min/1.73m2 Severely decreased ?15 - 29 mL/min/1.73m2 Kidney Failure ?< 15 ??mL/min/1.73m2 *Relative to young adult level If -U[place] multiply value by 1.16. Estimated glomerular filtration [...] Final Res ult [facility] (JESSICA) 1 [facility] [place] [address] * Differential, auto (01/14/2020 6:06 PM CDT) [...] BLOOD ORDERABLES Final Res ult TRACIE LEIVA (MARGARET) 1 [facility] [place] [address] * Blood culture Blood Antecubital, right (01/14/2020 6:06 PM CDT) Report Final Report: No growth TRACIE LEIVA (JESSICA) Comment:Testing performed by : [facility], 1 [facility], [place]., [address] Blood specimen (specimen) (Antecubital, right) 01/14/2020 6:06 PM CDT 01/14/2020 10:14 PM CDT Narrative TRACIE LEIVA (MARGARET) - 01/19/2020 7:00 AM CDT 1. ?Blood [...] organism identification may be performed using the [employer] Gram-Positive Blood Culture Assay. This assay detects microbial DNA in positive blood culture broth via hybridization of target DNA to capture oligonucleotides on a microarray. This assay has been cleared by the [place] Food and Drug Administration and its performance characteristics have been verified by the [facility] Microbiology Laboratory. 5. ?For questions about this culture, contact the Microbiology Laboratory at [phone]. Interpretive data was last revised on 2019. Francine Denis MD LAB MICROBIOLOGY - GENER AL ORDERABLES Final Result Performing Organization Address City/[facility]/ZIP Co de Phone Number [facility] ABBI[facility] (MARGARET) 1 [facility] [place] [address] [address] * Sepsis Lactate w/ Reflex (01/14/2020 6:06 PM CDT) [facility] Sepsis Lactate 1.8 0.7 - 2.0 mmol/L TRACIE LEIVA (MARGARET) Blood specimen (specimen) 01/14/2020 6:06 PM CDT 01/14/2020 6:42 PM CDT Francine Denis MD LAB BLOOD ORDERABLES Fin al Result Performing Organization Address City/[facility] Co de Phone Number TRACIE ABBIE (MARGARET) 1 [facility] [place] [address] [address] * (ABNORMAL) Comprehensive metabolic panel (01/14/2020 6:06 [...] Final Res ult TRACIE LEIVA (JESSICA) 1 [facility] [place] [address] * CBC with auto differential (01/14/2020 6:06 [...] Final Res ult TRACIE LEIVA (JESSICA) 1 [facility] [place] [address] documented in this encounter Visit Diagnoses Diagnosis [...] 2 puff 2 puff, inhalation, Once (respiratory therapist assistant), On Dayana 01/14/20 at 1937, For 1 [...] 0939 (Given - Provider: Shelia Lam RN) 5802 (See Alternative - Provider: Shelia Lam RN) [...] vomiting, if not tolerating PO, Starting on Dyaana 01/14/20 at 2209, Indications: Nausea and Vomiting [...] documented as of this encounter Care Teams Ocular Pathologist Relationship Specialty Start Date End Date Jann Burrows MD [address] [place] [address] PCP - General Hematology 03/13/19 10/28/21 Mariana Self MD [address] [place] [address] Referring Physician Internal Medicine 01/17/20 documented as of this encounter
--- OUTSIDE RECORDS SUMMARY | 2024-05-14 03:27 | XMS_ITS | Encounter Summary ---
Author Organization [facility] Healthcare Address [address] [place] [address] Care Team Providers Care Supervisor Histology Name Role Phone Jann Burrows MD Primary Care Provider [phone] Encounter Details Date Type Department Care Team (Late st Contact Info) Description 08/03/2019 Patient Self-Triage [facility] HealthCare/ Physicians [address] [place] [address] Mychart, Generic Provider [address] [place] [address] Social History Tobacco Use Types Packs/Day Years Used Date Smoking Tobacco: Never Smokeless Tobacco: Never Alcohol Use Standard Drinks/Week Comments Yes 24 (1 standard drink = 0.6 oz pu re alcohol) CAGE negative. Case per week. 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
--- OUTSIDE RECORDS SUMMARY | 2024-05-14 03:27 | XMS_ITS | Encounter Summary ---
Author Organization [facility] Healthcare Address [address] [place] [address] Care Team Providers Care Human Resources Benefits Assistant Name Role Phone Jann Burrows MD Primary Care Provider [phone] Reason for Visit * Reason Comments Hospital Follow Up EDV BS 31 Encounter Details Date Type Department Care Team (Late st Contact Info) Description 05/27/2019 8:15 AM PROPULSION GENERATOR REPAIRER Office Visit [facility] [address] [facility] Out[facility] [address] [place] [address] Evangelina Patel MD [address] [facility] [phone] [place] [address] Hypoglycemia (Primary Dx); Diabetic ketoacidosis [...] on file Legal Sex Male 5:01 AM PROPULSION GENERATOR REPAIRER Gender Identity Male 12/18/2017 12:38 PM CDT Sexual Orientation Not on file 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 Not on file Not on file documented as of this encounter Last Filed Vital Signs Vital Sign Reading Time Taken Comments Blood Pressure 151/89 05/27/2019 8:10 AM PROPULSION GENERATOR REPAIRER Pulse 70 05/27/2019 8:10 AM PROPULSION GENERATOR REPAIRER Temperature - - Respiratory Rate 18 05/27/2019 8:10 AM PROPULSION GENERATOR REPAIRER Oxygen Saturation 94% 05/27/2019 8:10 AM PROPULSION GENERATOR REPAIRER Inhaled Oxygen Concentration - - Weight 215.1 kg (474 lb 4.8 oz) 05/27/2019 8:10 AM PROPULSION GENERATOR REPAIRER Height 200.7 cm (6' 7 ) 05/27/2019 8:10 AM PROPULSION GENERATOR REPAIRER Body Mass Index 53.43 05/27/2019 8:10 AM PROPULSION GENERATOR REPAIRER documented in this encounter Patient Instructions * Patient Instructions* Shannan Zavala MD - 05/27/2019 8:15 AM PROPULSION GENERATOR REPAIRER Images from the original note were not included. Please start taking 75 units of insulin three times a day for a week, then take 70 units three times daily afterwards. Follow up with your heart and endocrine doctors. Patient Education Hypertension RECEPTIONIST NURSE: Hypertension is high blood pressure (BP). Your BP is the force of your blood moving against the santaan of your arteries. Normal BP is less [...] balance. Check labels to find low-sodium or wl-hevq-hlwzc foods. Some low-sodium foods use potassium salts [...] ask them during your visits. ?? 2017 [employer] Information is for End User's use only and may not be sold, redistributed or otherwise used for commercial purposes. All illustrations and images included in CareNotes?? are the copyrighted property of [employer]. or [employer]. The above information is an engineering aid only. It is not intended as medical advice for individual conditions or treatments. Talk to your doctor, nurse or pharmacist before following any medical regimen to see if it is safe and effective for you. ULSION GENERATOR REPAIRER ULSION GENERATOR REPAIRER documented in this encounter Ordered Prescriptions Prescription [...] records for this as it was at [facility]. He notes waking up in [...] Morbid obesity with BMI of 50.0-59.9, adult ([facility]) 07/10/2017 ALLERGIES AND DRUG REACTIONS No Known Allergies SOCIAL AND FUNCTIONAL HISTORY Social History Socioeconomic History ??? Marital status: Single Spouse name: Not on file ??? Number of children: Not on file ??? Years of education: Not on file ??? Highest education level: Not on file Occupational History ??? 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 Financial resource strain: Not [...] file Gets together: Not on file Attends muslim service: Not on file Active member of [...] q.d.. Will reach out to the patient's scrap dealer regarding his carvedilol. He has a history of asymmetric septal hypertrophy, however were concerned thathis Coreg is masking his hypoglycemia symptoms. We will defer this to his scrap dealer. -nurse visit in 2 weeks -up titrated lisinopril to 10 mg p.o. q.d. -BMP in 2 weeks All other issues per PCP Shannan Zavala MD Cosigned by Tess Arauz MD at 05/27/2019 9:21 AM PROPULSION GENERATOR REPAIRER ULSION GENERATOR REPAIRER ULSION GENERATOR REPAIRER Associated attestation - Tess Arauz MD - 05/27/2019 9:21 AM PROPULSION GENERATOR REPAIRER I have personally reviewed with the history, [...] and blood pressure logs. All questions answered. ULSION GENERATOR REPAIRER documented in this encounter Plan of Treatment Not on file documented as of this encounter Results * (ABNORMAL) Hepatic function panel (05/27/2019 9:25 AM PROPULSION GENERATOR REPAIRER) Bilirubin, total 0.3 0.1 - 1.2 mg/dL [...] HOSPITAL Blood specimen (specimen) 05/27/2019 9:25 AM PROPULSION GENERATOR REPAIRER 05/27/2019 10:18 AM PROPULSION GENERATOR REPAIRER Shannan Zavala MD LAB BLOOD ORDERABLES Final Re sult [facility] Department [place] [address] * Basic metabolic panel (05/27/2019 9:25 AM PROPULSION GENERATOR REPAIRER) Pathologist [facility] Sodium 141 135 - 145 mmol/L [facility] Potassium, pl 3.9 3.3 - 4.9 mmol/L [facility] Chloride 104 97 - 110 mmol/L [facility] [...] PAZ Blood specimen (specimen) 05/27/2019 9:25 AM PROPULSION GENERATOR REPAIRER 05/27/2019 10:18 AM PROPULSION GENERATOR REPAIRER us Shannan Zavala MD LAB BLOOD ORDERABLES Final Re sult [facility] Department [place] [address] documented in this encounter Visit Diagnoses Diagnosis [...] documented as of this encounter Care Teams Human Resources Benefits Assistant Relationship Specialty Start Date End Date Jann Burrows MD [address] [place] [address] [address] [place] [address] PCP - General Hematology 03/13/19 10/28/21 documented as of this encounter
--- OUTSIDE RECORDS SUMMARY | 2024-05-14 03:27 | XMS_ITS | Encounter Summary ---
Author Organization [facility] Healthcare Address [address] [place] [address] Care Team Providers Care Cheese Cutter Name Role Phone Jann Burrows MD Primary Care Provider [phone] Encounter Details Date Type Department Care Team (Late st Contact Info) Description 08/10/2019 E-Visit [facility] HealthCare/ Physicians [address] [place] [address] Adia Robbins MD [address] [place] [address] [address] [place] [address] Your Medications Social History Tobacco Use Types Packs/Day Years Used Date Smoking Tobacco: Never Smokeless Tobacco: Never Alcohol Use Standard Drinks/Week Comments Yes 24 (1 standard drink = 0.6 oz pu re alcohol) CAGE negative. Case per week. 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 He was given instructions regarding follow up and timeframe if symptoms worsen or don???t improve. These instructions were included in the [employer] message reply to the patient. Patient Instructions [...] Primary documented in this encounter Care Teams Cheese Cutter Relationship Specialty Start Date End Date Jann Burrows MD [address] [facility] [address] [place] [address] PCP - General Hematology 03/13/19 10/28/21 documented as of this encounter
--- OUTSIDE RECORDS SUMMARY | 2024-05-14 03:27 | XMS_ITS | Encounter Summary ---
Author Organization [facility] Address [address] [place] [address] Phone Care Team Providers Care Lapeler Name Role Phone Jann Burrows MD Primary Care Provider [phone] Mariana Monique MD Unavailable [phone] Encounter Details Date Type Department Care Team (Late st Contact Info) Description 12/31/2019 Orders Only [facility] Endocrinology Metabolism and Lipid [address] [facility] Advanced Medicine 5th [place] [address] [place] [address] Peter Styles Jr., MD [address] [place] [address] Type 2 diabetes mellitus with ketoacidosis without coma, without long-term current use of insulin ([facility]) (Primary Dx) Social History Tobacco Use Types Packs/Day Years Used Date Smoking Tobacco: Every Day Cigarettes Smokeless Tobacco: Current Chew Alcohol Use Standard Drinks/Week Comments Yes 24 (1 standard drink = 0.6 oz pu re alcohol) CAGE negative. Case per week. 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 on 12-21-19 and at that time [...] HL pens.His meter has been consistent with [facility] glucoses. I suggested the followin. CMP, [...] Sodium 134(L) 135 - 145 mmol/L [facility] Potassium, pl 4.2 3.3 - 4.9 mmol/L [facility] Chloride 97 97 - 110 mmol/L [facility] CO2 23 22 - 32 mmol/L [facility] Anion gap 14 2 - 15 mmol/L [facility] BUN 17 8 - 25 mg/dL [facility] Creatinine 0.81 0.80 - 1.30 mg/dL [facility] Glucose 281(H) 70 - 199 mg/dL [facility] [...] Calcium 10.0 8.5 - 10.3 mg/dL [facility] Bilirubin, total 0.4 0.1 - 1.2 mg/dL [facility] Protein, pl 7.8 6.5 - 8.5 g/dL [facility] Albumin 4.5 3.5 - 5.0 g/dL [facility] Alk phos 98 40 - 130 Units/L [facility] ALT 114(H) 7 - 55 Units/L [facility] AST 81(H) 10 - 50 Units/L [facility] Blood specimen (specimen) 12/31/2019 5:55 PM CDT 12/31/2019 6:15 PM CDT us Peter Styles Jr., MD LAB BLOOD ORDERABLES Final Result Performing Organization Address City/[facility] [place] [address] * TSH (12/31/2019 5:55 PM CDT) [facility] Thyroid Stimulating Hormone 1.54 0.30 - 4.20 mcIUnit/mL [facility] Blood specimen (specimen) 12/31/2019 5:55 PM CDT 12/31/2019 6:15 PM CDT Peter Styles Jr., MD LAB BLOOD ORDERABLES Final Result Performing Organization Address [facility] [place] [address] * (ABNORMAL) Hemoglobin A1c (12/31/2019 5:55 PM CDT) [facility] Hgb A1C 8.7(H) 4.0 - 5.6 % [facility] Estimated Average Glucose 203 mg/dL [facility] Comment: The ADA recommends reporting an estimated Average Glucose (eAG) with all Hemoglobin A1c results using the equation derived from a study of 507 normal and diabetic adults. ??Minority populations were underrepresented and children were not included. ?? (Diabetes Care 31:3730-6197, 2008). ??The eAG is not equivalent to a fasting glucose. Blood specimen (specimen) 12/31/2019 5:55 PM CDT 12/31/2019 6:15 PM CDT us Peter Styles Jr., MD LAB BLOOD ORDERABLES Final Result Performing Organization Address [facility] [place] [address] * (ABNORMAL) CBC with auto differential (12/31/2019 5:55 PM CDT) [facility] WBC 5.8 3.8 - 9.9 K/cumm [facility] Hgb 15.6 13.0 - 17.5 g/dL [facility] Hct 43.1 38.9 - 50.3 % [facility] Plt 327 150 - 400 K/cumm [facility] MPV 9.9 9.1 - 12.3 fL [facility] RBC 5.21 4.30 - 5.80 M/cumm [facility] MCV 82.7 81.3 - 96.4 fL [facility] MCH 29.9 27.1 - 33.3 pg [facility] MCHC 36.2(H) 32.3 - 35.7 g/dL [facility] RDW CV 12.3 11.1 - 14.9 % [facility] RDW SD 36.9 35.7 - 48.1 fL [facility] NRBC abs 0.00 0.00 - 0.01 K/cumm [facility] Blood specimen (specimen) 12/31/2019 5:55 PM CDT 12/31/2019 6:15 PM CDT us Peter Styles Jr., MD LAB BLOOD ORDERABLES Final Result Performing Organization Address City/[facility]/ZIP Co de Phone Number [facility] [place] [address] * Beta-hydroxybutyrate (12/31/2019 5:55 PM CDT) [facility] Beta-Hydroxybut yrate 0.1 0.0 - 0.5 mmol/L [facility] Blood specimen (specimen) 12/31/2019 5:55 PM CDT 12/31/2019 6:15 PM CDT us Peter Styles Jr., MD LAB BLOOD ORDERABLES Edited Result - Final Performing Organization Address [facility]/ZIP Co de Phone Number [facility] [place] [address] * Insulin antibody (12/31/2019 5:55 PM CDT) Insulin ab 0.00 0.00 - 0.02 nmol/L [facility] Comment: ADDITIONAL INFORMATION This test was developed and its performance characteristics determined by [facility] in a manner consistent with CLIA requirements. This test has not been cleared or approved by the U.S. Food and Drug Administration. Test Performed by: [facility] Laboratories - [address] [address] Senior Net Developer: Josiah Turk M.D. Ph.D.; CLIA# [id number] Blood specimen (specimen) 12/31/2019 5:55 PM CDT 12/31/2019 6:31 PM CDT Peter Styles Jr., MD LAB BLOOD ORDERABLES Final Result [facility]AC[facility] One [facility] [place] [address] documented in this encounter Visit Diagnoses Diagnosis [...] documented as of this encounter Care Teams Lapeler Relationship Specialty Start Date End Date Jann Burrows MD [address] [facility] [address] [place] [address] PCP - General Hematology 03/13/19 10/28/21 Mariana Monique MD [address] [place] [address] Referring Physician Internal Medicine 01/17/20 documented as of this encounter
--- OUTSIDE RECORDS SUMMARY | 2024-05-14 03:27 | XMS_ITS | Encounter Summary ---
Author Organization [facility] Healthcare Address [address] [place] [address] Care Team Providers Care Senior Interactive Producer Name Role Phone Jann Burrows MD Primary Care Provider [phone] Mariana Monique MD Unavailable [phone] Reason for Visit * Reason Onset Date Comments Follow-up 01/25/2020 Encounter Details Date Type Department Care Team (Late st Contact Info) Description 01/25/2020 Telephone [facility] Primary Care Medicine Clinic [address] 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 Jose [phone] * Telephone Encounter - Jose Saavedra - 01/25/2020 1:[address] Burrows, Patient is calling to request a return to work letter, he was out due to COVID- 19 and he has been symptom free for a week. Patient has been out of work since 01/11/20. He would like to return as soon as possible. Please follow up. Patient contact: [phone] Thanks Jose [phone] documented in this encounter Plan of Treatment Not on file documented as of this encounter Visit Diagnoses Not on filedocumented in this encounter Additional Health Concerns Infection Onset Date Last Indicated Resolved Time COVID19 01/15/2020 01/15/2020 01/31/2020 3:06 AM CDT documented as of this encounter Care Teams Senior Interactive Producer Relationship Specialty Start Date End Date Jann Burrows MD [address] [place] [address] PCP - General Hematology 03/13/19 10/28/21 Mariana Monique MD [address] [place] [address] Referring Physician Internal Medicine 01/17/20 documented as of this encounter
--- OUTSIDE RECORDS SUMMARY | 2024-05-14 03:27 | XMS_ITS | Encounter Summary ---
Author Organization [facility] Address [address] [place] [address] Phone Care Team Providers Care Masking Machine Feeder Name Role Phone Jann Burrows MD Primary Care Provider [phone] Mariana Monique MD Unavailable [phone] Encounter Details Date Type Department Care Team (Late st Contact Info) Description 12/30/2019 Telephone [facility] Endocrinology Metabolism and Lipid [address] [facility] 5th [place] [address] [place] [address] Noemí Najera LPN Social History Tobacco Use Types Packs/Day Years Used Date Smoking Tobacco: Every Day Cigarettes Smokeless Tobacco: Current Chew Alcohol Use Standard Drinks/Week Comments Yes 24 (1 standard drink = 0.6 oz pu re alcohol) CAGE negative. Case per week. 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
--- OUTSIDE RECORDS SUMMARY | 2024-05-14 03:27 | XMS_ITS | Encounter Summary ---
Author Organization [facility] Address [address] [facility] [address] [place] [address] Phone Care Team Providers Care Dietist Name Role Phone Jann Burrows MD Primary Care Provider [phone] Mariana Monique MD Unavailable [phone] Reason for Visit * Cardiology (Routine) - Closed Specialty Diagnoses / Procedures Referred By Christen springer Referred To Contact Diagnoses Asymmetric septal hypertrophy Benign essential hypertension Procedures Transthoracic Echo Complete W Doppler/CF Tania Beth MD Phone: tel: fax: [address] [address] Referral ID Status Reason Start Date Expiration Date Visits Re quested Visits Authorized [id number] Closed 05/25/2020 06/24/2021 1 1 Encounter Details Date Type Department Care Team (Latest Contact Info) Description 06/02/2020 9:30 AM SPECIAL EVENTS FUNDRAISER Ancillary Procedure [facility] [address] [facility] [address] [place] [address] Tania Beth MD [address] [address] Asymmetric septal hypertrophy (CMS/HCC); Benign [...] file Legal Sex Male 5:01 AM SPECIAL EVENTS FUNDRAISER Gender Identity Male 12/18/2017 12:38 PM CDT Sexual Orientation Not on file 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 Not on file Not on file documented as of this encounter Discharge Disposition Disposition Code Departure Means Destination Discharge to home or self care documented in this encounter Plan of Treatment Not on file documented as of this encounter Procedures Procedure Name Priority Date/Time Associated Diagnosis Comments TRANSTHORACIC ECHO (TTE) COMPLETE W DOPPLER/CF W CONTRAST Routine 06/02/2020 10:27 AM SPECIAL EVENTS FUNDRAISER Asymmetric septal hypertrophy (CMS/HCC) Benign essential hypertension documented in this encounter Results * TRANSTHORACIC ECHO (TTE) COMPLETE W DOPPLER/CF W CONTRAST (06/02/2020 10:27 AM SPECIAL EVENTS FUNDRAISER) Anatomical Region Laterality Modality Ultrasound 06/02/2020 9:30 AM SPECIAL EVENTS FUNDRAISER Narrative 06/03/2020 10:15 PM SPECIAL EVENTS FUNDRAISER Patient name: Geraldo Velez Date of test: 06/02/2020 Type of test: TTE w/Doppler [facility] #: [id number] Date of : 1995 (M) Cleaner Laboratory Equipment: Angélica Baez), [facility] Referring Physician: TANIA BETH MD Contrast Agent: 0.4 ml Optison Administered, (2.6 ml wasted). Contrast Administered by: Yahaira Hatch RN Supervised/Interpreted by: Noreen Jha MD Diagnosis: Location: [facility] Reason for test: Asymetrical Septal hypertrophy, HTN [...] 2=Hypo 3=Akinetic 4=Dyskin./Aneurysm 0=Not visualized) Parasternal Long [place]:MAS=1 BAS=1 MIL=1 ANABELLE=1 Parasternal Short [place]:MAS=1 MIS=1 NC=1 MIL=1 MAL=1 MA=1 Apical 4 Chambers:=1 MIS=1 BIS=1 BAL=1 MAL=1 AL=1 AC=1 Apical 2 Chambers:AI=1 NC=1 BI=1 BA=1 MA=1 AA=1 AC=1 LV Global [...] MD By signing this report, the attending superintendent drilling certifies that he or she has personally supervised and interpreted the echocardiogram and has reviewed and or edited and agrees with the written comments contained within the report. Procedure Note Noreen Jha MD - 06/03/2020 Patient name: Geraldo Velez Date of test: 06/02/2020 Type of test: TTE w/[facility] #: [id number] Date of : 1995 (M) Cleaner Laboratory Equipment: Angélica Baez), [facility] Referring Physician: TANIA BETH MD Contrast Agent: 0.4 ml Optison Administered, (2.6 ml wasted). Contrast Administered by: Yahaira Hatch RN Supervised/Interpreted by: Noreen Jha MD Diagnosis: Location: [facility] Reason for test: Asymetrical Septal hypertrophy, HTN [...] 2=Hypo 3=Akinetic 4=Dyskin./Aneurysm 0=Not visualized) Parasternal Long [place]:MAS=1 BAS=1 MIL=1 ANABELLE=1 Parasternal Short [place]:MAS=1 MIS=1 NC=1 MIL=1 MAL=1 MA=1 Apical 4 Chambers:=1 MIS=1 BIS=1 BAL=1 MAL=1 AL=1 AC=1 Apical 2 Chambers:AI=1 NC=1 BI=1 BA=1 MA=1 AA=1 AC=1 LV Global [...] MD By signing this report, the attending superintendent drilling certifies that he or she has personally [...] dose, Intra-Procedure (CV) Given 06/02/2020 10:21 AM SPECIAL EVENTS FUNDRAISER 1 mL documented in this encounter Orders Medications Ordered That Néstor ht Not Have Been Administered Count Last Ordered Date First Ordered Date perflutren protein-a (OPTISO N) 3 mL in sodium chloride 0.9% 8 mL syringe 1 06/02/2020 documented in this encounter Care Teams Dietist Relationship Specialty Start Date End Date Jann Burrows MD [address] [place] [address] PCP - General Hematology 03/13/19 10/28/21 Mariana Monique MD [address] [place] [address] Referring Physician Internal Medicine 01/17/20 documented as of this encounter
--- OUTSIDE RECORDS SUMMARY | 2024-05-14 03:27 | XMS_ITS | Encounter Summary ---
Author Organization [facility] Address [address] [place] [address] Phone Care Team Providers Care Caustic Mixer Name Role Phone Jann Burrows MD Primary Care Provider [phone] Encounter Details Date Type Department Care Team (Late st Contact Info) Description 09/23/2019 Telephone [facility] Endocrinology Metabolism and Lipid [address] [place] [address] [place] [address] Jeimy White Social History Tobacco Use Types Packs/Day Years Used Date Smoking Tobacco: Never Smokeless Tobacco: Never Alcohol Use Standard Drinks/Week Comments Yes 24 (1 standard drink = 0.6 oz pu re alcohol) CAGE negative. Case per week. 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
--- OUTSIDE RECORDS SUMMARY | 2024-05-14 03:27 | XMS_ITS | Encounter Summary ---
Author Organization [facility] Address [address] [place] [address] Care Team Providers Care Roving Tester Laboratory Name Role Phone Jann Burrows MD Primary Care Provider [phone] Reason for Visit * Reason Onset Date Comments COVID-19 EVALUATION 08/11/2019 Encounter Details Date Type Department Care Team (Late st Contact Info) Description 08/11/2019 Telephone [facility] HealthCare/ Physicians [address] [place] [address] Janette Merritt, RN COVID-19 EVALUATION Social History Tobacco Use Types Packs/Day Years Used Date Smoking Tobacco: Never Smokeless Tobacco: Never Alcohol Use Standard Drinks/Week Comments Yes 24 (1 standard drink = 0.6 oz pu re alcohol) CAGE negative. Case per week. 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 Yes Do you have a cough or shortness of breath? Yes Do you live in a halfway, group home facility or other group setting? No Are [...] documented as of this encounter Care Teams Roving Tester Laboratory Relationship Specialty Start Date End Date Jann Burrows MD [id number] [place] [address] PCP - General Hematology 03/13/19 10/28/21 documented as of this encounter
--- OUTSIDE RECORDS SUMMARY | 2024-05-14 03:27 | XMS_ITS | Encounter Summary ---
Author Organization [facility] Healthcare Address [address] [place] [address] Care Team Providers Care Drug Purchaser Name Role Phone Jann Burrows MD Primary Care Provider [phone] Encounter Details Date Type Department Care Team (Late st Contact Info) Description 08/11/2019 Orders Only [facility] HealthCare/[facility] Physicians [address] [place] [address] [place] [address] [address] Exposure to SARS-associated coronavirus (Primary Dx) Social History Tobacco Use Types Packs/Day Years Used Date Smoking Tobacco: Never Smokeless Tobacco: Never Alcohol Use Standard Drinks/Week Comments Yes 24 (1 standard drink = 0.6 oz pu re alcohol) CAGE negative. Case per week. 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
--- OUTSIDE RECORDS SUMMARY | 2024-05-14 03:27 | XMS_ITS | Encounter Summary ---
Author Organization [facility] Healthcare Address [address] [place] [address] Care Team Providers Care Steel Shot Header Operator Name Role Phone Jann Burrows MD Primary Care Provider [phone] Encounter Details Date Type Department Care Team (Late st Contact Info) Description 08/03/2019 Patient Self-Triage [facility] HealthCare/ Physicians [address] [place] [address] Mychart, Generic Provider [address] [place] [address] Social History Tobacco Use Types Packs/Day Years Used Date Smoking Tobacco: Never Smokeless Tobacco: Never Alcohol Use Standard Drinks/Week Comments Yes 24 (1 standard drink = 0.6 oz pu re alcohol) CAGE negative. Case per week. 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
--- OUTSIDE RECORDS SUMMARY | 2024-05-14 03:27 | XMS_ITS | Encounter Summary ---
Author Organization [facility] Address [address] [facility] [place] [address] Care Team Providers Care Manager Costing Name Role Phone Jann Burrows MD Primary Care Provider [phone] Mariana Monique MD Unavailable [phone] Reason for Visit * Reason Onset Date Comments Covid-19 Home Monitoring 01/24/2020 Encounter Details Date Type Department Care Team (Late st Contact Info) Description 01/24/2020 Telephone [facility] Post Acute Care [address] [facility] 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
--- OUTSIDE RECORDS SUMMARY | 2024-05-14 03:27 | XMS_ITS | Encounter Summary ---
Author Organization [facility] Address [address] [place] [address] Phone Care Team Providers Care Fur Feeder Name Role Phone Jann Burrows MD Primary Care Provider [phone] Encounter Details Date Type Department Care Team (Late st Contact Info) Description 11/18/2019 Telephone [facility] Endocrinology Metabolism and Lipid [address] [facility] 5th [place] [address] [place] [address] Beverley Javed CNMT Social History Tobacco Use Types Packs/Day Years Used Date Smoking Tobacco: Never Smokeless Tobacco: Never Alcohol Use Standard Drinks/Week Comments Yes 24 (1 standard drink = 0.6 oz pu re alcohol) CAGE negative. Case per week. 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 documented in this encounter Plan of Treatment Not on file documented as of this encounter Visit Diagnoses Not on filedocumented in this encounter Care Teams Fur Feeder Relationship Specialty Start Date End Date Jann Burrows MD [address] [place] [address] PCP - General Hematology 03/13/19 10/28/21 documented as of this encounter
--- OUTSIDE RECORDS SUMMARY | 2024-05-14 03:27 | XMS_ITS | Encounter Summary ---
Author Organization [facility] Healthcare Address [address] [place] [address] Care Team Providers Care Gang Investigator Name Role Phone Jann Burrows MD Primary Care Provider Encounter Details Date Type Department Care Team (Late st Contact Info) Description 01/14/2020 Documentation [facility] Primary Care Medicine Clinic [address] [facility] [address] [place] [address] Zaire Dao MD [address] [facility] [address] [place], [place] [id number] Social History Tobacco Use Types Packs/Day Years Used Date Smoking Tobacco: Never Smokeless Tobacco: Former Chew Quit: 01/13/2019 Alcohol Use Standard Drinks/Week Comments Not Currently 0 (1 standard drink = 0.6 oz pur e alcohol) Sex and Gender Information Value Date Recorded Sex Assigned at Not on file Legal Sex Male 5:01 AM INVERTED BLOCK OPERATOR Gender Identity Male 12/18/2017 12:38 PM CDT Sexual Orientation Not on file 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
--- OUTSIDE RECORDS SUMMARY | 2024-05-14 03:27 | XMS_ITS | Encounter Summary ---
Author Organization [facility] Address [address] [place] [address] Phone Care Team Providers Care Cake Wringer Name Role Phone Jann Burrows MD Primary Care Provider [phone] Mariana Monique MD Unavailable [phone] Encounter Details Date Type Department Care Team (Late st Contact Info) Description 01/04/2020 Telephone [facility] Cardiology [address] [facility] Medicine 8th [place] [address] [place] [address] Annika Sutherland Social History Tobacco Use Types Packs/Day Years Used Date Smoking Tobacco: Every Day Cigarettes Smokeless Tobacco: Current Chew Alcohol Use Standard Drinks/Week Comments Yes 24 (1 standard drink = 0.6 oz pu re alcohol) CAGE negative. Case per week. 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
--- OUTSIDE RECORDS SUMMARY | 2024-05-14 03:27 | XMS_ITS | Encounter Summary ---
Author Organization [facility] Healthcare Address [address] [place] [address] Care Team Providers Care Car Usher Name Role Phone Jann Burrows MD Primary Care Provider [phone] Encounter Details Date Type Department Care Team (Late st Contact Info) Description 08/08/2019 Patient Self-Triage [facility] HealthCare/ Physicians [address] [place] [address] Mychart, Generic Provider [address] [place] [address] Social History Tobacco Use Types Packs/Day Years Used Date Smoking Tobacco: Never Smokeless Tobacco: Never Alcohol Use Standard Drinks/Week Comments Yes 24 (1 standard drink = 0.6 oz pu re alcohol) CAGE negative. Case per week. 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
--- OUTSIDE RECORDS SUMMARY | 2024-05-14 03:27 | XMS_ITS | Encounter Summary ---
Author Organization [facility] Healthcare Address [address] [place] [address] Care Team Providers Care Cloth Shrinking Tester Name Role Phone Jann Burrows MD Primary Care Provider [phone] Reason for Visit * Reason Onset Date Comments medication reconciliation for 12/24 Post Hospital Visit 12/24/2019 Encounter Details Date Type Department Care Team (Late st Contact Info) Description 12/24/2019 Telephone [facility] Primary Care Medicine Clinic [address] [facility] [address] [place], [place] [id number] Samara Silva, [facility] medication reconciliation for 12/24 Post Hospital Visit Social History Tobacco Use Types Packs/Day Years Used Date Smoking Tobacco: Never Smokeless Tobacco: Current Alcohol Use Standard Drinks/Week Comments Yes 24 (1 standard drink = 0.6 oz pu re alcohol) CAGE negative. Case per week. 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 Date of discharge: 8/17 Date of PHV: 8/21, with Dr. Rhoades Patient did not answer. Left voicemail for patient at [phone] with information about upcoming appointment and to return call to [facility] pharmacists at [phone] to discuss medications. Timestamp: 12/24/19, 10:46 AM Samara Guidry, PharmD, MHA, BCPS Clinical Planning Analyst, Stock Preparer [facility]/Primary Care Medicine Clinic documented in this encounter Plan of Treatment Not on file documented as of this encounter Visit Diagnoses Not on filedocumented in this encounter Care Teams Cloth Shrinking Tester Relationship Specialty Start Date End Date Jann Burrows MD [address] [facility] [address] [place] [address] PCP - General Hematology 03/13/19 10/28/21 documented as of this encounter
--- OUTSIDE RECORDS SUMMARY | 2024-05-14 03:27 | XMS_ITS | Encounter Summary ---
Author Organization [facility] Address [address] [place] [address] Phone Care Team Providers Care Slitter Service And Setter Name Role Phone Jann Burrows MD Primary Care Provider [phone] Encounter Details Date Type Department Care Team (Late st Contact Info) Description 03/24/2019 Orders Only [facility] Endocrinology Metabolism and Lipid [address] [facility] Advanced Medicine 5th [place] [address] [place] [address] Peter Styles Jr., MD [address] [place], [place] [id number] Metabolic syndrome Social History Tobacco Use Types Packs/Day Years Used Date Smoking Tobacco: Never Smokeless Tobacco: Never Alcohol Use Standard Drinks/Week Comments Yes 24 (1 standard drink = 0.6 oz pu re alcohol) CAGE negative. Case per week. 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
--- OUTSIDE RECORDS SUMMARY | 2024-05-14 03:27 | XMS_ITS | Encounter Summary ---
Author Organization [facility] Healthcare Address [address] [place] [id number] Care Team Providers Care Sand Cutting Machine Operator Name Role Phone Jann Burrows MD Primary Care Provider [phone] Encounter Details Date Type Department Care Team (Late st Contact Info) Description 12/01/2019 Telephone [facility] [address] [facility] 4th [address] [place] [address] Padma Raines CMA Social History Tobacco Use Types Packs/Day Years Used Date Smoking Tobacco: Never Smokeless Tobacco: Never Alcohol Use Standard Drinks/Week Comments Yes 24 (1 standard drink = 0.6 oz pu re alcohol) CAGE negative. Case per week. 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 Velasquez will be on vacation 03/03. documented in this encounter Plan of Treatment Not on file documented as of this encounter Visit Diagnoses Not on filedocumented in this encounter Care Teams Sand Cutting Machine Operator Relationship Specialty Start Date End Date Jann Burrows MD [address] [place] [address] PCP - General Hematology 03/13/19 10/28/21 documented as of this encounter
--- OUTSIDE RECORDS SUMMARY | 2024-05-14 03:27 | XMS_ITS | Encounter Summary ---
Author Organization [facility] Healthcare Address [address] [place] [address] Care Team Providers Care School Transportation Supervisor Name Role Phone Jann Burrows MD Primary Care Provider [phone] Encounter Details Date Type Department Care Team (Late st Contact Info) Description 08/11/[address] [facility] Primary Care Medicine Clinic [address] [facility] [address] [place], [place] [id number] Karla Rossi MD [address] [facility] [address] [place] [address] Social History Tobacco Use Types Packs/Day Years Used Date Smoking Tobacco: Never Smokeless Tobacco: Never Alcohol Use Standard Drinks/Week Comments Yes 24 (1 standard drink = 0.6 oz pu re alcohol) CAGE negative. Case per week. 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 [...] filedocumented in this encounter Care Teams School Transportation Supervisor Relationship Specialty Start Date End Date Jann Burrows MD [address] [facility] [address] [place] [address] PCP - General Hematology 03/13/19 10/28/21 documented as of this encounter
--- OUTSIDE RECORDS SUMMARY | 2024-05-14 03:27 | XMS_ITS | Encounter Summary ---
Author Organization [facility] Healthcare Address [address] [place] [address] Care Team Providers Care Energy Technician Name Role Phone Jann Burrows MD Primary Care Provider [phone] Encounter Details Date Type Department Care Team (Late st Contact Info) Description 2019 Orders Only [facility] Primary Care Medicine Clinic [address] [facility] [address] [place], [place] [id number] Smith Rhoades MD PhD [address] [facility] [address] [place] [address] Social History Tobacco Use Types Packs/Day Years Used Date Smoking Tobacco: Every Day Cigarettes Smokeless Tobacco: Current Chew Alcohol Use Standard Drinks/Week Comments Yes 24 (1 standard drink = 0.6 oz pu re alcohol) CAGE negative. Case per week. 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
--- OUTSIDE RECORDS SUMMARY | 2024-05-14 03:27 | XMS_ITS | Encounter Summary ---
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 Name Role Phone Jann Burrows MD Primary Care Provider [phone] Reason for Visit * Reason Comments Hyperglycemia Encounter Details Date Type Department Care Team (Latest Contact Info) Description 12/18/2019 1:46 PM CDT - 12/21/2019 12:30 PM CDT Hospital Encounter [facility] [address] [place] [address] China White MD [address] [facility] [address] [place] [address] Frederic Higuera MD [address] [place] [address] Beatrice Jeff MD [id number] [place] [address] Hyperglycemia (Primary Dx); Nausea; Frequency of urination [...] on file Legal Sex Male 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 AM TARGETEER Gender Identity Male 12/18/2017 12:38 PM CDT Sexual Orientation Not on file 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 01/06/2020 3:45 PM Jef Walton MD CAR CAM 8A Cardiology 06/02/2020 4:20 PM Pteer Styles MD EML CAM 5C [facility] EML Contact Information for Follow-ups Jann Burrows MD Specialty: Hematology Relationship: PCP - General [address] [address] Next Steps: Follow up in 7 day(s) Cosigned by Frederic Higuera MD at 12/21/2019 4:40 PM CDT documented in this encounter Discharge Instructions * Discharge Instructions* Vishnu Mascorro MD - 12/21/2019 11:14 AM CDT Dear Mr. Velez, Thank you for allowing the [facility] medicine team to take care of you [...] greater than 250, you should call your electronic drafter to arrange follow up and make any [...] tablet 3 03/19/2019 2 blood glucose diagnostic (PowerMessageTouch Ultra Test) stripIndications:D iabetic ketoacidosis without coma [...] home. Patient agrees to plan for discharge. Criminal Justice Professor will continue to follow discharge plan of care until the patient is discharged. If needed, please contact me at [phone] * Stas Richardson MD PhD - 12/21/2019 8:18 AM CDT Endocrinology & Diabetes Progress Note Patient: Geraldo Velez, 23 y.o. 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 A1C [...] & Lipid Research Contact Info: New Consults: [phone]) General Endocrine (Non-Diabetes): [phone] (Check 'Treatment Team' assignment for Diabetes 1 vs 2 vs 3) Diabetes 1: Diabetes Fellow: [phone] Diabetes 2: Nita Arias, ICT SUPPORT ENGINEER: [phone] Diabetes 3: See Treatment Team Provider (or call Nita Arias, above) Diabetes After-Hours & Weekends: Diabetes Fellow Cosigned by Jenifer Hurst MD at 12/22/2019 8:10 AM CDT * Vishnu Mascorro MD - 12/21/2019 7:04 AM CDT MEDICINE FIRM DAILY PROGRESS NOTE Date/Time: 12/21/2019 11:10 AM Patient Name: Geraldo Velez : 1995 Unit: [id number] Hospital Day: 4 PATIENT SUMMARY Geraldo Velez [...] U500 q8h, 10U Lispro with meals -- [facility] francis check >> requires prior auth, [...] Consistent Carbohydrate Last BM: DVT ppx: Lovenox PT/OT/INTEGRITY ANALYST: no acute needs Dispo: home once insulin/glucose stable Discharge goals: insulin regimen Electronic Signature: Roman Mascorro MD PGY1 Anesthesiology [phone] Date/Time: 12/21/2019 11:10 AM Cosigned by Frederic [...] info (name, phone, availablity) Leatha Velez, mother [phone] Home Care Services No Durable Medical Equipment None Living Arrangements Parent Type of Residence Private residence Financial Resource Income 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 Patient admitted for treatment of: hyperglycemia Insurance verified as: [facility] Prescription Coverage: yes Preferred Pharmacy: [facility] PCP verified as: Dr. Burrows Transportation: per family Admission Source: non-healthcare facility Prior level of Functioning: Independent Additional Information/Options Discussed: Verified demographic information from the face sheet withthe patient/family. Explained role and purpose of telephonic case manager. Denies the use of home health in the past - a list will be offered if recommended. Patient demonstrates no agency preference at this time. communication manager to continue to follow for planning [...] Velez, 23 y.o. male (: 1995) Room: [address] [address] [address] [address] ( ) LOS: 2 Geraldo Velez is [...] Component Value Date 25HYDROVITD 16 (L) 09/06/2017 [id number] 0.00 03/04/2019 Assessment & Plan # Type 2 diabetes, with care home use of insulin, complicated by hyperglycemia. A1C [...] & Lipid Research Contact Info: New Consults: [phone]) General Endocrine (Non-Diabetes): [phone] (Check 'Treatment Team' assignment for Diabetes 1 vs 2 vs 3) Diabetes 1: Diabetes Fellow: [phone] Diabetes 2: Nita Arias, ICT SUPPORT ENGINEER: [phone] Diabetes 3: See Treatment Team Provider (or [...] Patient Name: Geraldo Velez : 1995 Unit: [id number] Hospital Day: 3 PATIENT SUMMARY Geraldo Velez [...] Consistent Carbohydrate Last BM: DVT ppx: Lovenox PT/OT/INTEGRITY ANALYST: no acute needs Dispo: home once insulin/glucose stable Discharge goals: insulin regimen Electronic Signature: Roman Mascorro MD PGY1 Anesthesiology [phone] Date/Time: 12/20/2019 7:25 AM Cosigned by Frederic [...] Patient Name: Geraldo Velez : 1995 Unit: [id number] Hospital Day: 2 PATIENT SUMMARY Geraldo Velez [...] Consistent Carbohydrate Last BM: DVT ppx: Lovenox PT/OT/INTEGRITY ANALYST: no acute needs Dispo: home once insulin/glucose stable Discharge goals: insulin regimen Electronic Signature: Roman Mascorro MD PGY1 Anesthesiology [phone] Date/Time: 12/19/2019 11:59 AM Cosigned by Frederic [...] ??? Anxiety ??? Depression ??? Diabetes mellitus ([facility]) ??? HTN (hypertension) ??? Metabolic syndrome ??? Morbid obesity with BMI of 50.0-59.9, adult ([facility]) 07/10/2017 Past Surgical History History [...] 70 units three times daily. ??? lancets [facility] Patient needs in room [...] Contact Information Primary Emergency Contact: Leatha Velez [facility] Relation: Mother PCP Jann Burrows MD Electronic Signature: Roman Mascorro MD PGY1 Anesthesiology [phone] Date/Time: 12/18/2019 8:02 PM Cosigned by Frederic [...] Velez, 23 y.o. male (: 1995) Room: [place] [address]/[id number] ( ) LOS: 1 Consult Question: Type [...] ??? Depression ??? Diabetes mellitus ([facility]) ??? HTN (hypertension) ??? Metabolic [...] Component Value Date 25HYDROVITD 16 (L) 09/06/2017 [id number] 0.00 03/04/2019 Assessment & Plan # Type 2 diabetes, with care home use of insulin, complicated by hyperglycemia. A1C [...] & Lipid Research Contact Info: New Consults: [phone]) General Endocrine (Non-Diabetes): [phone] (Check 'Treatment Team' assignment for Diabetes 1 vs 2 vs 3) Diabetes 1: Diabetes Fellow: [phone] Diabetes 2: Nita Arias, ICT SUPPORT ENGINEER: [phone] Diabetes 3: See Treatment Team Provider (or [...] ketoacidosis, without long-term current use of insulin ([facility]) 03/19/2019 ??? Weight loss counseling, encounter for 10/13/2017 ??? Metabolic syndrome 10/13/2017 ??? Fatty liver 10/13/2017 ??? Disordered sleep 10/13/2017 ??? Morbid obesity with BMI of 50.0-59.9, adult ([facility]) 07/10/2017 ??? Low HDL (under 40) 07/10/2017 ??? Asymmetric septal hypertrophy ([facility]/HCC) 02/10/2016 ??? Essential hypertension 03/16/2010 Past Medical History: Diagnosis Date ??? Anxiety ??? Depression ??? Diabetes mellitus (CMS/HCC) ??? HTN (hypertension) ??? Metabolic syndrome ??? Morbid obesity with BMI of 50.0-59.9, adult ([facility]) 07/10/2017 History reviewed. No pertinent [...] as of Dec 18 1737 Time: 12/17 4224 Comment: After BMP results will call endo Re: pt not on long acting insulin. Will see if he should be admitted to short stay By: Anna Shaffer MD Time: 12/17 1636 Value: Potassium, pl: See Comment Comment: Will re order By: Anna Shaffer MD Time: 12/17 5440 Comment: Endo aware of pt. Signed out [...] arrival: Ambulance Comments: Chemo Youssef RN 12/18/19 1216 * Chemo Youssef RN - 12/18/2019 1:22 [...] If needed feel free to contact at [phone] * Medical Student - Ochoa Jeremiah - 12/21/2019 11:13 AM CDT MEDICINE FIRM DAILY PROGRESS NOTE Name: Geraldo Velez Date of Admission: 12/18/2019 Length of Stay: 3 day(s) Bed: [id number] Subjective Chief Complaint: hyperglycemia Patient Summary: Geraldo [...] 199 mg/dL Recent Labs Lab Units 12/21/19 5995 12/19/19 0323 SODIUM mmol/L -- -- 137 [...] with Dr. Styles in endocrinology here at [facility]. Per chart review patient is [...] in cardiology. Has not been symptomatic since [facility] he says. Last TTE was in 2015. [...] 12/18/2019 Length of Stay: 1 day(s) Bed: [id number] Subjective Chief Complaint: hyperglycemia Patient Summary: Geraldo [...] with Dr. Styles in endocrinology here at [facility]. Per chart review patient is [...] in cardiology. Has not been symptomatic since [facility] he says. Last TTE was in 2016. [...] 10u, NPH 35u Endo consulted. Pending: [facility] Dispo: admit to medicine, signed out ED Course as of Dec 18 5389 Time: 12/17 0410 Comment: After BMP results will call endo [...] Primary Care Physician: Jann Burrows MD Room: [facility] ED1-10/ED1 SUBJECTIVE: CC: hyperglycemia HPI: Geraldo Velez [...] with Dr. Styles in endocrinology here at [facility]. He has been taking his normal diabetesregimen of metformin 1000 BID and 75U U500 TID. He takes his BG 3 times a day before meals. They have been fluctuating between 90-200's the last week. Last night, the patient's girlfriend (a nurse at [employer]) was concerned given his increased urination. He took his BG, which was in the 500'sthen took extra insulin with drop down to the 400's. On waking up the next morning, he was still hyperglycemic in the high 400's. He presented to urgent care then to [facility]. 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 He drinks socially a [...] with Dr. Styles in endocrinology here at [facility]. Per chart review patient is [...] currently being evaluated for possible admission to [facility]. Upon review of this patient's chart I [...] be confidently assessed from the patient. Per [facility] policy, patients assessed as being low risk for COVID-19 require COVID-19 testing and require COVID-19 level isolation while awaiting COVID-19 test results, however these patients can [id number] in any private room (including positive pressure rooms) and do NOT require a COVID-19 unit or ICU bed. A single negative COVID-19 test result is sufficient for removi ng these patients from COVID-19 isolation precautions, to do so please contact [facility] Patent Legal Assistant On-Call ([email or web address], utilize the on-call tab to [...] in group living facility such as a senior living facility, shelter facility, rehab facility, or long-term care facility [...] acting). Went to who discharged him. Saw electronic drafter 1 mo ago but very insulin resistant. [...] order By: Anna Shaffer MD Time: 12/17 5210 Comment: Endo aware of pt. Signed out to medicine. By: Anna Shaffer MD Time: 12/17 912 Comment: Medicine wants endo recs to start [...] and polyuria Anna Shaffer MD Resident 12/18/19 9872 documented in this encounter Plan of Treatment [...] * POCT glucose (12/21/2019 11:43 AM CDT) [facility] Glucose, POC 194 70 - 199 mg/dL TRACIE PAZ Blood specimen (specimen) 12/21/2019 11:43 AM CDT 12/21/2019 11:43 AM CDT us Frederic Higuera MD LAB POCT ORDERABLES - DEVICE Final Result TRACIE PAZ [facility] Department [place] [address] * POCT glucose (12/21/2019 7:55 AM CDT) Glucose, POC 196 70 - 199 mg/dL [facility] Blood specimen (specimen) 12/21/2019 7:55 AM CDT 12/21/2019 7:55 AM CDT Frederic Higuera MD LAB POCT ORDERABLES - DEVICE Final Result Performing Organization Address City/[facility] Co de Phone Number [facility] [place] [address] * POCT glucose (12/21/2019 2:50 AM CDT) Glucose, POC 174 70 - 199 mg/dL [facility] Blood specimen (specimen) 12/21/2019 2:50 AM CDT 12/21/2019 2:50 AM CDT Frederic Higuera MD LAB POCT ORDERABLES - DEVICE Final Result Performing Organization Address [facility] Co de Phone Number [facility] [place] [address] * POCT glucose (12/20/2019 9:41 PM CDT) Glucose, POC 131 70 - 199 mg/dL [facility] Blood specimen (specimen) 12/20/2019 9:41 PM CDT 12/20/2019 9:41 PM CDT Frederic Higuera MD LAB POCT ORDERABLES - DEVICE Final Result Performing Organization Address [facility] Co de Phone Number [facility] [place] [address] * POCT glucose (12/20/2019 5:15 PM CDT) Glucose, POC 114 70 - 199 mg/dL [facility] Blood specimen (specimen) 12/20/2019 5:15 PM CDT 12/20/2019 5:15 PM CDT Frederic Higuera MD LAB POCT ORDERABLES - DEVICE Final Result Performing Organization Address [facility] de Phone Number [facility] [place] [address] * (ABNORMAL) POCT glucose (12/20/2019 11:30 AM CDT) Glucose, POC 229(H) 70 - 199 mg/dL [facility] Blood specimen (specimen) 12/20/2019 11:30 AM CDT 12/20/2019 11:30 AM CDT Frederic Higurea MD LAB POCT ORDERABLES - DEVICE Final Result Performing Organization Address [facility] de Phone Number [facility] [place] [address] * (ABNORMAL) POCT glucose (12/20/2019 8:05 AM CDT) Glucose, POC 258(H) 70 - 199 mg/dL [facility] Blood specimen (specimen) 12/20/2019 8:05 AM CDT 12/20/2019 8:05 AM CDT Frederic Higuera MD LAB POCT ORDERABLES - DEVICE Final Result Performing Organization Address [facility] de Phone Number [facility] [place] [address] * (ABNORMAL) POCT glucose (12/20/2019 2:49 AM CDT) Glucose, POC 234(H) 70 - 199 mg/dL [facility] Blood specimen (specimen) 12/20/2019 2:49 AM CDT 12/20/2019 2:49 AM CDT Frederic Higuera MD LAB POCT ORDERABLES - DEVICE Final Result Performing Organization Address [facility] Co de Phone Number [facility] [place] [address] * POCT glucose (12/19/2019 11:34 PM CDT) Glucose, POC 197 70 - 199 mg/dL [facility] Blood specimen (specimen) 12/19/2019 11:34 PM CDT 12/19/2019 11:34 PM CDT us Frederic Higuera MD LAB POCT ORDERABLES - DEVICE Final Result Performing Organization Address [facility] Co de Phone Number [facility] [place] [address] * (ABNORMAL) POCT glucose (12/19/2019 8:19 PM CDT) Glucose, POC 254(H) 70 - 199 mg/dL [facility] Glucose comment 1 RN Notified [facility] Blood specimen (specimen) 12/19/2019 8:19 PM CDT 12/19/2019 8:19 PM CDT Frederic Higuera MD LAB POCT ORDERABLES - DEVICE Final Result Performing Organization Address City/[facility] [place] [address] * (ABNORMAL) POCT glucose (12/19/2019 5:01 PM CDT) Glucose, POC 239(H) 70 - 199 mg/dL [facility] Blood specimen (specimen) 12/19/2019 5:01 PM CDT 12/19/2019 5:01 PM CDT Frederic Higuera MD LAB POCT ORDERABLES - DEVICE Final Result Performing Organization Address [facility] de Phone Number [facility] [place] [address] * (ABNORMAL) POCT glucose (12/19/2019 11:50 AM CDT) Glucose, POC 250(H) 70 - 199 mg/dL [facility] Blood specimen (specimen) 12/19/2019 11:50 AM CDT 12/19/2019 11:50 AM CDT Frederic Higuera MD LAB POCT ORDERABLES - DEVICE Final Result Performing Organization Address [facility] de Phone Number [facility] [place] [address] * (ABNORMAL) POCT glucose (12/19/2019 7:27 AM CDT) Glucose, POC 224(H) 70 - 199 mg/dL [facility] Blood specimen (specimen) 12/19/2019 7:27 AM CDT 12/19/2019 7:27 AM CDT Frederic Higuera MD LAB POCT ORDERABLES - DEVICE Final Result Performing Organization Address [facility] de Phone Number [facility] [place] [address] * Cholesterol, LDL, direct (12/19/2019 3:23 AM CDT) LDL Cholesterol, Direct 60 <=129 mg/dL [facility] Comment: Interpretive Data Ages < or [...] CDT 12/19/2019 3:53 AM CDT Narrative TRACIE [facility] - 12/19/2019 10:03 AM CDT Cholesterol, LDL, direct reflexed based on Elevated Triglyceride (>400) Frederic Higuera MD LAB BLOOD ORDERABLES F inal Result [facility] Department [place] [address] * (ABNORMAL) Lipid panel (12/19/2019 3:23 AM CDT) Cholesterol 175 30 - 199 mg/dL [facility] Comment: Interpretive Data Ages < or [...] revised on 2017. Triglycerides 785(H) <=149 mg/dL [facility] Comment: Interpretive Data Ages < or [...] revised on 2017. HDL 22(L) >=40 mg/dL [facility] Comment: Interpretive Data Ages < or [...] on 2017. LDL, calculated See Comment <=129 [facility] Comment: Unable to calculate LDL due [...] ORDERABLES F inal Result TRACIE PAZ [facility] Department [place] [address] * Differential, auto (12/19/2019 3:23 AM CDT) Neutrophil abs 2.5 1.7 - 6.5 K/cumm TRACIE PAZ Imm gran abs 0.0 0.0 - 0.1 K/cumm [facility] Lymphocyte abs 2.0 0.8 - 3.3 K/cumm [facility] Monocyte abs 0.4 0.2 - 0.8 K/cumm [facility] Eosinophil abs 0.2 0.0 - 0.5 K/cumm [facility] Basophil abs 0.0 0.0 - 0.1 K/cumm [facility] Neutrophil pct 47.6 % [facility] Comment: Interpretive Data Percent cell count reference ranges are not reported, since discordance with absolute values may lead to misinterpretation of CBC data. Current Interpretive Data was last revised on 2017. Imm gran pct 0.4 % [facility] Comment: Interpretive Data Percent cell count reference ranges are not reported, since discordance with absolute values may lead to misinterpretation of CBC data. Current Interpretive Data was last revised on 2017. Lymphocyte pct 39.4 % [facility] Comment: Interpretive Data Percent cell count reference ranges are not reported, since discordance with absolute values may lead to misinterpretation of CBC data. Current Interpretive Data was last revised on 2017. Monocyte pct 8.5 % [facility] Comment: Interpretive Data Percent cell count reference ranges are not reported, since discordance with absolute values may lead to misinterpretation of CBC data. Current Interpretive Data was last revised on 2017. Eosinophil pct 3.7 % [facility] Comment: Interpretive Data Percent cell count reference ranges are not reported, since discordance with absolute values may lead to misinterpretation of CBC data. Current Interpretive Data was last revised on 2017. Basophil pct 0.4 % [facility] Comment: Interpretive Data Percent cell count reference ranges are not reported, since discordance with absolute values may lead to misinterpretation of CBC data. Current Interpretive Data was last revised on 2017. Blood specimen (specimen) 12/19/2019 3:23 AM CDT 12/19/2019 3:52 AM CDT us China White MD LAB BLOOD ORDERABLES Final R esult [facility] Department [place] [address] * (ABNORMAL) POCT glucose (12/19/2019 3:23 AM CDT) [facility] Glucose, POC 244(H) 70 - 199 mg/dL [facility] Blood specimen (specimen) 12/19/2019 3:23 AM CDT 12/19/2019 3:23 AM CDT Frederic Higuera MD LAB POCT ORDERABLES - DEVICE Final Result Performing Organization Address [facility]/[place] [address] * (ABNORMAL) Hemoglobin A1c (12/19/2019 3:23 AM CDT) [facility] Hgb A1C 8.4(H) 4.0 - 5.6 % [facility] Estimated Average Glucose 194 mg/dL [facility] Comment: The ADA recommends reporting an estimated Average Glucose (eAG) with all Hemoglobin A1c results using the equation derived from a study of 507 normal and diabetic adults. ??Minority populations were underrepresented and children were not included. ?? (Diabetes Care 31:1330-9276, 2008). ??The eAG is not equivalent to a fasting glucose. Blood specimen (specimen) 12/19/2019 3:23 AM CDT 12/19/2019 3:34 AM CDT us China White MD LAB BLOOD ORDERABLES [place] [address] * (ABNORMAL) CBC with auto differential (12/19/2019 3:23 AM CDT) [facility] WBC 5.2 3.8 - 9.9 K/cumm [facility] Hgb 14.3 13.0 - 17.5 g/dL [facility] Hct 39.2 38.9 - 50.3 % [facility] Plt 252 150 - 400 K/cumm [facility] MPV 9.9 9.1 - 12.3 fL [facility] RBC 4.85 4.30 - 5.80 M/cumm [facility] MCV 80.8(L) 81.3 - 96.4 fL [facility] MCH 29.5 27.1 - 33.3 pg [facility] MCHC 36.5(H) 32.3 - 35.7 g/dL [facility] RDW CV 12.0 11.1 - 14.9 % [facility] RDW SD 34.8(L) 35.7 - 48.1 fL [facility] NRBC abs 0.00 0.00 - 0.01 K/cumm [facility] Blood specimen (specimen) 12/19/2019 3:23 AM CDT 12/19/2019 3:52 AM CDT China White MD LAB BLOOD ORDERABLES Final R esult [facility] Department [place] [address] * (ABNORMAL) Basic metabolic panel (12/19/2019 3:23 AM CDT) Sodium 137 135 - 145 mmol/L [facility] Potassium, pl 3.5 3.3 - 4.9 mmol/L [facility] Chloride 100 97 - 110 mmol/L [facility] CO2 26 22 - 32 mmol/L [facility] [facility] Anion gap 11 2 - 15 mmol/L [facility] BUN 17 8 - 25 mg/dL [facility] Creatinine 0.82 0.80 - 1.30 mg/dL [facility] Glucose 262(H) 70 - 199 mg/dL [facility] Comment: Interpretive Data Fasting glucose >/= [...] 2017. Calcium 9.3 8.5 - 10.3 mg/dL [facility] Blood specimen (specimen) 12/19/2019 3:23 AM CDT 12/19/2019 3:53 AM CDT us China White MD LAB BLOOD ORDERABLES Final R esult Performing Organization Address [facility] Co de Phone Number [facility] [place] [address] * (ABNORMAL) POCT glucose (12/19/2019 12:41 AM CDT) Glucose, POC 319(H) 70 - 199 mg/dL [facility] Blood specimen (specimen) 12/19/2019 12:41 AM CDT 12/19/2019 12:41 AM CDT us Frederic Higuera MD LAB POCT ORDERABLES - DEVICE Final Result Performing Organization Address [facility] Co de Phone Number [facility] Department [place] [address] * (ABNORMAL) POCT glucose (12/19/2019 12:32 AM CDT) Glucose, POC 317(H) 70 - 199 mg/dL [facility] Blood specimen (specimen) 12/19/2019 12:32 AM CDT 12/19/2019 12:32 AM CDT Frederic Higuera MD LAB POCT ORDERABLES - DEVICE Final Result Performing Organization Address City/[facility] Co de Phone Number [facility] Department [place] [address] * (ABNORMAL) POCT glucose (12/18/2019 11:01 PM CDT) Glucose, POC 348(H) 70 - 199 mg/dL [facility] Blood specimen (specimen) 12/18/2019 11:01 PM CDT 12/18/2019 11:01 PM CDT us China White MD LAB POCT ORDERABLES - DEVICE Final Result Performing Organization Address [facility] Co de Phone Number [facility] [place] [address] * (ABNORMAL) POCT glucose (12/18/2019 9:09 PM CDT) [facility] Glucose, POC 406(H) 70 - 199 mg/dL [facility] Blood specimen (specimen) 12/18/2019 9:09 PM CDT 12/18/2019 9:09 PM CDT us China White MD LAB POCT ORDERABLES - DEVICE Final Result Performing Organization Address [facility] Co de Phone Number [facility] Department [place] [address] * (ABNORMAL) POCT glucose (12/18/2019 7:26 PM CDT) [facility] Glucose, POC 291(H) 70 - 199 mg/dL [facility] Blood specimen (specimen) 12/18/2019 7:26 PM CDT 12/18/2019 7:26 PM CDT us China White MD LAB POCT ORDERABLES - DEVICE Final Result Performing Organization Address [facility] Co de Phone Number [facility] [place] [address] * COVID-19 Coronavirus RNA Nasopharyngeal (12/18/2019 5:45 PM CDT) [facility] COVID-19 RNA Not Detected [facility] Comment: Interpretive Data Testing performed at [facility] Infectious Disease [facility]. The 2019-Novel Coronavirus [...] PM CDT 12/18/2019 7:36 PM CDT Narrative [facility] - 12/19/2019 8:32 AM CDT Is the patient experiencing any symptoms consistent with COVID (eg. Fever, cough, shortness of breath)?->No What is the reason for testing?->Likely to be admitted to semi-private room THE COLLECTION LOCATION IS [facility] ED1-10 Anna Shaffer MD LAB MICROBIOLOGY - GENER AL ORDERABLES Final Result Performing Organization Address [facility]/ZIP Co de Phone Number [facility] [place] [address] * Potassium, whole blood (12/18/2019 5:45 PM CDT) [facility] Potassium, bld 3.8 3.3 - 4.9 mmol/L [facility] Blood specimen (specimen) 12/18/2019 5:45 PM CDT 12/18/2019 5:53 PM CDT Narrative [facility] - 12/18/2019 6:04 PM CDT THE COLLECTION LOCATION IS [facility] ED1-10 Anna Shaffer MD LAB BLOOD ORDERABLES Fin al Result Performing Organization Address City/[facility]/ZIP Co de Phone Number [facility] [place] [address] * (ABNORMAL) POCT glucose (12/18/2019 5:43 PM CDT) Glucose, POC 351(H) 70 - 199 mg/dL [facility] Glucose comment 1 RN Notified [facility] Blood specimen (specimen) 12/18/2019 5:43 PM CDT 12/18/2019 5:43 PM CDT us China White MD LAB POCT ORDERABLES - DEVICE Final Result [facility] Department [place] [address] * ED PERIPHERAL LINE INSERTION (12/18/2019 4:30 [...] microscopic only (12/18/2019 3:36 PM CDT) Pathologist [facility] WBC, ur 0-5 0 - 5 /HPF [facility] RBC, ur 0-2 0 - 2 /HPF [facility] Epithelial cells, squamous, ur 1-5 0 - 5 /HPF [facility] Urine 12/18/2019 3:36 PM CDT 12/18/2019 3:49 PM CDT us Dionna Mcpherson MD LAB URINE ORDERABLES F inal Result [facility] Department [place] [address] * (ABNORMAL) Urinalysis reflex to microscopic (12/18/2019 3:36 PM CDT) Color, ur Straw Yellow [facility] Clarity, ur Clear Clear [facility] Specific gravity, ur 1.029(H) 1.010 - 1.025 [facility] pH, urine 6 [facility] Protein, ur ql 1+(A) Negative [facility] Glucose, ur ql 3+(A) Negative [facility] Ketones, ur Trace Negative [facility] Bilirubin, ur Negative Negative [facility] Blood, ur Negative Negative [facility] Urobilinogen, ur <2.0 <2.0 mg/dL [facility] Nitrite, ur Negative Negative [facility] Leukocyte esterase, ur 1+(A) Negative [facility] UA reflex comment Reflex to microscopic UA will be performed. [facility] Urine 12/18/2019 3:36 PM CDT 12/18/2019 3:49 PM CDT Narrative [facility] - 12/18/2019 4:07 PM CDT THE [facility] COLLECTION LOCATION IS [facility] ED1-10 Urine pH is affected by diet, medications, systemic acid-base disturbances, and renal tubular function. ??pH may affect urinary stone formation. ??For example, urine pH below 6.0 may help reduce the tendency for calcium phosphate stones and pH greater than 6.0 may reduce the tendency for uric acid stone formation. Source: [employer]. Last revised 05-16-2017 us Dionna Mcpherson MD LAB URINE ORDERABLES F inal Result [facility] Department [place] [address] * (ABNORMAL) Basic metabolic panel (12/18/2019 3:36 PM CDT) Sodium 131(L) 135 - 145 mmol/L [facility] Potassium, pl See Comment 3.3 - 4.9 mmol/L [facility] Comment:Credited; Hemolyzed Specimen Chloride 93(L) 97 - 110 mmol/L [facility] CO2 24 22 - 32 mmol/L [facility] Anion gap 14 2 - 15 mmol/L [facility] BUN 18 8 - 25 mg/dL [facility] Creatinine 0.84 0.80 - 1.30 mg/dL [facility] Glucose 411(H) 70 - 199 mg/dL [facility] Comment: Interpretive Data Fasting glucose >/= [...] 2017. Calcium 9.5 8.5 - 10.3 mg/dL [facility] Blood specimen (specimen) 12/18/2019 3:36 PM CDT 12/18/2019 3:56 PM CDT Narrative [facility] - 12/18/2019 4:26 PM CDT THE COLLECTION LOCATION IS [facility] ED1-10 Dionna Mcpherson MD LAB BLOOD ORDERABLES F inal Result [facility] Department [place] [address] * ED PERIPHERAL LINE INSERTION (12/18/2019 3:35 [...] Glucose, POC 494(C) 70 - 199 mg/dL [facility] Glucose comment 1 RN Notified [facility] Blood specimen (specimen) 12/18/2019 1:24 PM CDT 12/18/2019 1:24 PM CDT Result [facility] Notinfile Unknown LAB POCT ORDERABLES - DEVICE F inal Result [facility] Department [place] [address] documented in this encounter Visit Diagnoses Diagnosis [...] Call MD for each episode of hypoglycemia. INVASIVE CARDIOVASCULAR TECHNOLOGIST STATES GLUTOSE-15 CONTAINS GLUCOSE 40% W/W (50% [...] Provider: Shea Pina RN)1222 (Given - Provider: Emliy Byrd, BRYANNA) insulin NPH (HumuLIN N, NovoLIN [...] Call MD for each episode of hypoglycemia. INVASIVE CARDIOVASCULAR TECHNOLOGIST STATES GLUTOSE-15 CONTAINS GLUCOSE 40% W/W (50% [...] Call MD for each episode of hypoglycemia. INVASIVE CARDIOVASCULAR TECHNOLOGIST STATES GLUTOSE-15 CONTAINS GLUCOSE 40% W/W (50% [...] 12/18/2019 documented in this encounter Care Teams Construction Ironworker Helper Relationship Specialty Start Date End Date Jann Burrows MD [address] [facility] [address] [place] [address] PCP - General Hematology 03/13/19 10/28/21 documented as of this encounter
--- OUTSIDE RECORDS SUMMARY | 2024-05-14 03:27 | XMS_ITS | Encounter Summary ---
Author Organization [facility] Healthcare Address [address] [place] [address] Care Team Providers Care Game Tester Name Role Phone Jann Burrows MD Primary Care Provider [phone] Encounter Details Date Type Department Care Team (Late st Contact Info) Description 11/02/[address] 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
--- OUTSIDE RECORDS SUMMARY | 2024-05-14 03:27 | XMS_ITS | Encounter Summary ---
Author Organization [facility] Healthcare Address [address] [place] [address] Care Team Providers Care Boiler Erector Name Role Phone Jann Burrows MD Primary Care Provider [phone] Reason for Visit * Reason Onset Date Comments Follow-up 05/28/2019 Encounter Details Date Type Department Care Team (Late st Contact Info) Description 05/28/2019 Telephone [facility] Primary Care Medicine Clinic [address] [facility] [address] [place], [place] [id number] Jann Burrows MD [address] [facility] [address] [place], [place] [id number] Follow-up Social History Tobacco Use Types Packs/Day Years Used Date Smoking Tobacco: Never Smokeless Tobacco: Never Alcohol Use Standard Drinks/Week Comments Yes 24 (1 standard drink = 0.6 oz pu re alcohol) CAGE negative. Case per week. 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 R CUP HANDLE MACHINE OPERATOR * Telephone Encounter - Markus Elaine - 05/28/2019 3:[address] Zavala, Pharmacy is calling to clarify if insulin regular U-500 (HumuLIN R U-500, Conc, Kwikpen) 500 unit/mL (3 mL) CONCENTRATED injection is a 30 day supply or 90 day supply . Pharmacy on file. Markus Campoverde [phone] R CUP HANDLE MACHINE OPERATOR documented in this encounter Plan of Treatment Not on file documented as of this encounter Visit Diagnoses Not on filedocumented in this encounter Care Teams Boiler Erector Relationship Specialty Start Date End Date Jann Burrows MD [address] [facility] [address] [place] [address] PCP - General Hematology 03/13/19 10/28/21 documented as of this encounter
--- OUTSIDE RECORDS SUMMARY | 2024-05-14 03:27 | XMS_ITS | Encounter Summary ---
Author Organization [facility] Healthcare Address [address] [place] [address] Care Team Providers Care Intermediate Frame Tender Name Role Phone Jann Burrows MD Primary Care Provider [phone] Encounter Details Date Type Department Care Team (Late st Contact Info) Description 08/11/2019 Patient Self-Triage [facility] HealthCare/[facility] [address] [place] [address] [employer], Generic Provider [address] [place] [address] Social History Tobacco Use Types Packs/Day Years Used Date Smoking Tobacco: Never Smokeless Tobacco: Never Alcohol Use Standard Drinks/Week Comments Yes 24 (1 standard drink = 0.6 oz pu re alcohol) CAGE negative. Case per week. 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
--- OUTSIDE RECORDS SUMMARY | 2024-05-14 03:27 | XMS_ITS | Encounter Summary ---
Author Organization [facility] Healthcare Address [address] [place] [address] Care Team Providers Care Brush Hand Name Role Phone Jann Burrows MD Primary Care Provider Encounter Details Date Type Department Care Team (Late st Contact Info) Description 08/11/2019 Telephone [facility] Primary Care Medicine Clinic [address] [facility] [address] [place], [place] [id number] Karla Rossi MD [address] [facility] [address] [place] [address] Social History Tobacco Use Types Packs/Day Years Used Date Smoking Tobacco: Never Smokeless Tobacco: Never Alcohol Use Standard Drinks/Week Comments Yes 24 (1 standard drink = 0.6 oz pu re alcohol) CAGE negative. Case per week. 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 Given this information, provided patient with [facility] hotline to see if he would be a candidate for testing as he is a first dyer. He is agreeable to this. I will call him back in 30mins to follow-up on hotline decision and go from there. documented in this encounter Plan of Treatment Not on file documented as of this encounter Visit Diagnoses Not on filedocumented in this encounter Care Teams Brush Hand Relationship Specialty Start Date End Date Jann Burrows MD [address] [place] [address] PCP - General Hematology 03/13/19 10/28/21 documented as of this encounter
--- OUTSIDE RECORDS SUMMARY | 2024-05-14 03:27 | XMS_ITS | Encounter Summary ---
Author Organization [facility] [place] [facility] Address [address] [place] [address] Phone Care Team Providers Care Ux Researcher Name Role Phone Jann Burrows MD Primary Care Provider [phone] Mariana Monique MD Unavailable [phone] Keila Jimenez MD Primary Care Provider Encounter Details Date Type Department Care Team (Late st Contact Info) Description 09/24/2019 Telephone [facility] Endocrinology Metabolism and Lipid [address] [facility] [address] [place] [address] [place] [address] Noemí Najera LPN Social History [...] often do you attend chur ch or christianity services? 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
--- OUTSIDE RECORDS SUMMARY | 2024-05-14 03:27 | XMS_ITS | Encounter Summary ---
Author Organization [facility] Healthcare Address [address] [place] [address] Care Team Providers Care Drawing Tracer Name Role Phone Jann Burrows MD Primary Care Provider [phone] Reason for Visit * Reason Onset Date Comments Follow-up 08/11/2019 Encounter Details Date Type Department Care Team (Late st Contact Info) Description 08/11/[address] [facility] Primary Care Medicine Clinic [address] [facility] [address] [place], [place] [id number] Jann Burrows MD [address] [facility] [address] [place], [place] [id number] Follow-up Social History Tobacco Use Types Packs/Day Years Used Date Smoking Tobacco: Never Smokeless Tobacco: Never Alcohol Use Standard Drinks/Week Comments Yes 24 (1 standard drink = 0.6 oz pu re alcohol) CAGE negative. Case per week. 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 Patient contact is [phone]. Adrianna [phone] documented in this encounter Plan of Treatment Not on file documented as of this encounter Visit Diagnoses Not on filedocumented in this encounter Additional Health Concerns Infection Onset Date Last Indicated Resolved Time COVID: Suspected 08/11/2019 08/11/2019 08/25/2019 3:06 AM CDT documented as of this encounter Care Teams Drawing Tracer Relationship Specialty Start Date End Date Jann Burrows MD [address] [facility] [address] [place] [address] PCP - General Hematology 03/13/19 10/28/21 documented as of this encounter
--- OUTSIDE RECORDS SUMMARY | 2024-05-14 03:27 | XMS_ITS | Encounter Summary ---
Author Organization [facility] Address [address] [place] [address] Phone Care Team Providers Care Wad Compressor Operator Adjuster Name Role Phone Jann Burrows MD Primary Care Provider Mariana Monique MD Unavailable [phone] Encounter Details Date Type Department Care Team (Latest Contact Info) Description 06/02/2020 4:20 PM CHOCOLATE TEMPERER Office Visit [facility] Endocrinology Metabolism and Lipid [address] [facility] Advanced Medicine 5th [place] [address] [place] [address] Peter Styles Jr., MD [address] [place] [address] Type 2 diabetes mellitus without complication, with [...] on file Legal Sex Male 5:01 AM CHOCOLATE TEMPERER Gender Identity Male 12/18/2017 12:38 PM CDT Sexual Orientation Not on file 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 Not on file Not on file documented as of this encounter Last Filed Vital Signs Vital Sign Reading Time Taken Comments Blood Pressure 99/63 06/02/2020 4:15 PM CHOCOLATE TEMPERER Pulse 85 06/02/2020 4:15 PM CHOCOLATE TEMPERER Temperature 36.4 ??C (97.6 ??F) 06/02/2020 4:15 PM CS T Respiratory Rate - - Oxygen Saturation - - Inhaled Oxygen Concentration - - Weight 175.5 kg (387 lb) 06/02/2020 4:15 PM CHOCOLATE TEMPERER Height 200.7 cm (6' 7 ) 06/02/2020 4:15 PM CHOCOLATE TEMPERER Body Mass Index 43.6 06/02/2020 4:15 PM CHOCOLATE TEMPERER documented in this encounter Patient Instructions * Patient Instructions* Peter Styles MD - 06/02/2020 4:20 PM CHOCOLATE TEMPERER 1. Take 130 U500 at 8am and 8 pm. 2. Take 20 Novolog three times daily with meals. 3. We may need to increase both U500 and the Novolog with time. 4. Try this for a week and send us you glucose levels by [employer]. 5. You need to have labs today here. 6. You need an eye appointment to look for diabetic retinopathy. OLATE TEMPERER OLATE TEMPERER documented in this encounter Progress Notes * [...] needs more insulin overall. RTC 4 months. OLATE TEMPERER documented in this encounter Miscellaneous Notes * Addendum Note - Rosalino Graham - 06/02/2020 4:20 PM CSTAddended by: ROSALINO GRAHAM on: 06/02/2020 05:27 PM Modules accepted: Orders OLATE TEMPERER documented in this encounter Plan of Treatment Not on file documented as of this encounter Procedures Procedure Name Priority Date/Time Associated Diagnosis Comments POCT HEMOGLOBIN A1C Routine 06/02/2020 4 :17 PM CHOCOLATE TEMPERER Diabetic ketoacidosis without coma associated with other specified diabetes mellitus ([facility]/HCC) POCT GLUCOSE Routine 06/02/2020 4:17 PM CHOCOLATE TEMPERER Diabetic ketoacidosis without coma associated with other specified diabetes mellitus ([facility]/HCC) documented in this encounter Results * Albumin Creatinine Ratio, Urine (06/02/2020 5:27 PM CHOCOLATE TEMPERER) Albumin Ur 51.3 mg/L [facility] Comment: Interpretive Data No reference range established. Current interpretive data was last revised 2018. Creatinine Ur 287.1 mg/dL [facility] Comment: Interpretive Data No reference range established. Current interpretive data was last revised 2018. Albumin Creatinine Ratio, Ur 18 1 - 29 mg/g [facility] Urine 06/02/2020 5:27 PM CHOCOLATE TEMPERER 06/02/2020 5:51 PM CHOCOLATE TEMPERER us Peter Styles Jr., MD LAB URINE ORDERABLES Final Result [facility] Department [place] [address] * (ABNORMAL) Lipid panel (06/02/2020 5:27 PM CHOCOLATE TEMPERER) Cholesterol 250(H) 30 - 199 mg/dL [facility] [...] revised on 2017. HDL 19(L) >=40 mg/dL [facility] Comment: Interpretive Data Ages < [...] on 2017. LDL, calculated See Comment <=129 [facility] Comment: Unable to calculate LDL [...] revised on 2017. Non-HDL Cholesterol 231 mg/dL [facility] Comment: Interpretive Data Ages < [...] revised on 2017. Chol/HDL ratio 13 [facility] Blood specimen (specimen) 06/02/2020 5:27 PM CHOCOLATE TEMPERER 06/02/2020 5:50 PM CHOCOLATE TEMPERER Narrative [facility] - 06/02/2020 6:38 PM CHOCOLATE TEMPERER These lab test should be done fasting. This means do not eat or drink for at least 12 hours prior to getting your blood drawn. Has the patient been fasting for 8 hours or more?->No non fasting Peter Styles Jr., MD LAB BLOOD ORDERABLES Final Result [facility] Department [place] [address] * POCT glucose (06/02/2020 4:17 PM CHOCOLATE TEMPERER) Glucose Blood, POC 142 mg/dL Blood specimen (specimen) 06/02/2020 4:17 PM CHOCOLATE TEMPERER us Peter Styles Jr., MD POINT OF CARE TEST OR DERABLES Final Result * POCT hemoglobin A1c (06/02/2020 4:17 PM CHOCOLATE TEMPERER) Hemoglobin A1C, POC 11.5 Blood specimen (specimen) 06/02/2020 4:17 PM CHOCOLATE TEMPERER Peter Styles Jr., MD POINT OF CARE [...] (HCC) documented in this encounter Care Teams Wad Compressor Operator Adjuster Relationship Specialty Start Date End Date Jann Burrows MD [address] [place], [place] [id number] PCP - General Hematology 03/13/19 10/28/21 Mariana Monique MD [address] [place] [address] Referring Physician Internal Medicine 01/17/20 documented as of this encounter
--- OUTSIDE RECORDS SUMMARY | 2024-05-14 03:27 | XMS_ITS | Encounter Summary ---
Author Organization [facility] Address [address] [place] [address] Phone Care Team Providers Care Agriculture Inspector Name Role Phone Jann Burrows MD Primary Care Provider [phone] Mariana Moinque MD Unavailable [phone] Encounter Details Date Type Department Care Team (Late st Contact Info) Description 05/26/2020 Orders Only [facility] Endocrinology Metabolism and Lipid [address] [facility] Advanced Medicine 5th [place] [address] [place] [address] Peter Styles Jr., MD [address] [place] [address] Diabetic ketoacidosis without coma associated with other [...] on file Legal Sex Male 5:01 AM JUMPBASTING FACING 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
--- OUTSIDE RECORDS SUMMARY | 2024-05-14 03:27 | XMS_ITS | Encounter Summary ---
Author Organization [facility] Address [address] [place] [address] Phone Care Team Providers Care Developer Programmer Name Role Phone Jann Burrows MD Primary Care Provider [phone] Reason for Visit * Reason Onset Date Comments Prior Auth 08/17/2019 Prior Auth Metfo rmin 500 mg tablets Encounter Details Date Type Department Care Team (Late st Contact Info) Description 08/17/2019 Telephone [facility] Endocrinology Metabolism and Lipid [address] [facility] Advanced Medicine 5th [place] [address] [place] [address] Noemí Najera LPN Prior Auth [...] file Legal Sex Male 5:01 AM MANAGER H[employer] Gender Identity Male 12/18/2017 12:38 PM CDT Sexual Orientation Not on file 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 Not on file [...] - 08/17/2019 9:02 AM CDT surescripts [id number] [phone] [id number] documented in this encounter Plan of Treatment Not on file documented as of this encounter Visit Diagnoses Not on filedocumented in this encounter Additional Health Concerns Infection Onset Date Last Indicated Resolved Time COVID: Suspected 08/11/2019 08/11/2019 08/25/2019 3:06 AM CDT documented as of this encounter Care Teams Developer Programmer Relationship Specialty Start Date End Date Jann Burrows MD [address] [facility] [address] [place] [address] PCP - General Hematology 03/13/19 10/28/21 documented as of this encounter
--- OUTSIDE RECORDS SUMMARY | 2024-05-14 03:27 | XMS_ITS | Encounter Summary ---
Author Organization [facility] Healthcare Address [address] [place] [address] Care Team Providers Care Carbon Sequestration Plant Manager Name Role Phone Jann Burrows MD Primary Care Provider [phone] Encounter Details Date Type Department Care Team (Late st Contact Info) Description 12/31/2019 6:10 PM CDT Lab [facility] Advanced Medicine [facility] Advanced Medicine ([facility]) [address] [place] [address] Type 2 diabetes mellitus with ketoacidosis without [...] file Legal Sex Male 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 Gender Identity Male 12/18/2017 12:38 PM CDT Sexual Orientation Not on file 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 Not on file Not [...] coma, without long-term current use of insulin ([facility]) C-PEPTIDE Routine 12/31/2019 5:55 PM CDT Type 2 diabetes mellitus with ketoacidosis without coma, without long-term current use of insulin ([facility]) TSH Routine 12/31/2019 5:55 PM CDT Type 2 diabetes mellitus with ketoacidosis without coma, without long-term current use of insulin ([facility]/HCC) HEMOGLOBIN A1C Routine 12/31/2019 5:55 PM CDT Type 2 diabetes mellitus with ketoacidosis without coma, without long-term current use of insulin ([facility]) COMPREHENSIVE METABOLIC PANEL Routine 12/31/2019 5:55 PM CDT Type 2 diabetes mellitus with ketoacidosis without coma, without long-term current use of insulin ([facility]/HCC) documented in this encounter Results * Differential, auto (12/31/2019 5:55 PM CDT) Neutrophil abs 2.9 1.7 - 6.5 K/cumm [facility] Imm gran abs 0.0 0.0 - 0.1 K/cumm [facility] Lymphocyte abs 2.1 0.8 - 3.3 K/cumm [facility] Monocyte abs 0.5 0.2 - 0.8 K/cumm [facility] Eosinophil abs 0.2 0.0 - 0.5 K/cumm [facility] Basophil abs 0.0 0.0 - 0.1 K/cumm [facility] Neutrophil pct 49.7 % [facility] Comment: Interpretive Data Percent cell count reference ranges are not reported, since discordance with absolute values may lead to misinterpretation of CBC data. Current Interpretive Data was last revised on 2017. Imm gran pct 0.3 % [facility] Comment: Interpretive Data Percent cell count reference ranges are not reported, since discordance with absolute values may lead to misinterpretation of CBC data. Current Interpretive Data was last revised on 2017. Lymphocyte pct 36.8 % [facility] Comment: Interpretive Data Percent cell count reference ranges are not reported, since discordance with absolute values may lead to misinterpretation of CBC data. Current Interpretive Data was last revised on 2017. Monocyte pct 9.1 % [facility] Comment: Interpretive Data Percent cell count reference ranges are not reported, since discordance with absolute values may lead to misinterpretation of CBC data. Current Interpretive Data was last revised on 2017. Eosinophil pct 3.4 % [facility] Comment: Interpretive Data Percent cell count reference ranges are not reported, since discordance with absolute values may lead to misinterpretation of CBC data. Current Interpretive Data was last revised on 2017. Basophil pct 0.7 % [facility] Comment: Interpretive Data Percent cell count reference ranges are not reported, since discordance with absolute values may lead to misinterpretation of CBC data. Current Interpretive Data was last revised on 2017. Blood specimen (specimen) 12/31/2019 5:55 PM CDT 12/31/2019 6:15 PM CDT us Peter Styles Jr., MD LAB BLOOD ORDERABLES Final Result [facility] One [facility] [place] [address] * Insulin antibody (12/31/2019 5:55 PM CDT) Insulin ab 0.00 0.00 - 0.02 nmol/L [facility] Comment: ADDITIONAL INFORMATION This test was developed and its performance characteristics determined by [facility] in a manner consistent with CLIA requirements. This test has not been cleared or approved by the U.S. Food and Drug Administration. Test Performed by: [facility] [address] [address] Irrigator Overhead: Josiah Turk M.D. Ph.D.; CLIA# [id number] Blood specimen (specimen) 12/31/2019 5:55 PM CDT 12/31/2019 6:31 PM CDT us Peter Styles Jr., MD LAB BLOOD ORDERABLES Final Result Performing Organization Address [facility] Co de Phone Number [facility] [place] [address] * Beta-hydroxybutyrate (12/31/2019 5:55 PM CDT) [facility] Beta-Hydroxybut yrate 0.1 0.0 - 0.5 mmol/L [facility] Blood specimen (specimen) 12/31/2019 5:55 PM CDT 12/31/2019 6:15 PM CDT us Peter Styles Jr., MD LAB BLOOD ORDERABLES Edited Result - Final Performing Organization Address [facility] Co de Phone Number [facility] [place] [address] * (ABNORMAL) CBC with auto differential (12/31/2019 5:55 PM CDT) Pathologist [facility] WBC 5.8 3.8 - 9.9 K/cumm [facility] Hgb 15.6 13.0 - 17.5 g/dL [facility] Hct 43.1 38.9 - 50.3 % [facility] Plt 327 150 - 400 K/cumm [facility] MPV 9.9 9.1 - 12.3 fL [facility] RBC 5.21 4.30 - 5.80 M/cumm [facility] MCV 82.7 81.3 - 96.4 fL [facility] MCH 29.9 27.1 - 33.3 pg [facility] MCHC 36.2(H) 32.3 - 35.7 g/dL [facility] RDW CV 12.3 11.1 - 14.9 % [facility] RDW SD 36.9 35.7 - 48.1 fL [facility] NRBC abs 0.00 0.00 - 0.01 K/cumm [facility] Blood specimen (specimen) 12/31/2019 5:55 PM CDT 12/31/2019 6:15 PM CDT us Peter Styles Jr., MD LAB BLOOD ORDERABLES Final Result Performing Organization Address [facility] de Phone Number [facility] [place] [address] * (ABNORMAL) Hemoglobin A1c (12/31/2019 5:55 PM CDT) Hgb A1C 8.7(H) 4.0 - 5.6 % [facility] Estimated Average Glucose 203 mg/dL [facility] Comment: The ADA recommends reporting an estimated Average Glucose (eAG) with all Hemoglobin A1c results using the equation derived from a study of 507 normal and diabetic adults. ??Minority populations were underrepresented and children were not included. ?? (Diabetes Care 31:9533-1007, 2008). ??The eAG is not equivalent to a fasting glucose. Blood specimen (specimen) 12/31/2019 5:55 PM CDT 12/31/2019 6:15 PM CDT us Peter Styles Jr., MD LAB BLOOD ORDERABLES Final Result Performing Organization Address [facility] de Phone Number [facility] [place] [address] * TSH (12/31/2019 5:55 PM CDT) Thyroid Stimulating Hormone 1.54 0.30 - 4.20 mcIUnit/mL [facility] Blood specimen (specimen) 12/31/2019 5:55 PM CDT 12/31/2019 6:15 PM CDT Peter Styles Jr., MD LAB BLOOD ORDERABLES Final Result [facility] One [facility] [place] [address] * (ABNORMAL) Comprehensive metabolic panel (12/31/2019 5:55 PM CDT) Sodium 134(L) 135 - 145 mmol/L [facility] Potassium, pl 4.2 3.3 - 4.9 mmol/L [facility] Chloride 97 97 - 110 mmol/L [facility] CO2 23 22 - 32 mmol/L [facility] Anion gap 14 2 - 15 mmol/L [facility] BUN 17 8 - 25 mg/dL [facility] Creatinine 0.81 0.80 - 1.30 mg/dL [facility] Glucose 281(H) 70 - 199 mg/dL [facility] Comment: Interpretive Data Fasting glucose [...] 2017. Calcium 10.0 8.5 - 10.3 mg/dL [facility] Bilirubin, total 0.4 0.1 - 1.2 mg/dL [facility] Protein, pl 7.8 6.5 - 8.5 g/dL [facility] Albumin 4.5 3.5 - 5.0 g/dL [facility] Alk phos 98 40 - 130 Units/L [facility] ALT 114(H) 7 - 55 Units/L [facility] AST 81(H) 10 - 50 Units/L [facility] Blood specimen (specimen) 12/31/2019 5:55 PM CDT 12/31/2019 6:15 PM CDT us Peter Styles Jr., MD LAB BLOOD ORDERABLES Final Result Performing Organization Address [facility] Co de Phone Number [facility] [place] [address] * (ABNORMAL) C-peptide (12/31/2019 5:55 PM CDT) C-peptide 11.2(H) 1.1 - 4.4 ng/mL [facility] Blood specimen (specimen) 12/31/2019 5:55 PM CDT 12/31/2019 6:15 PM CDT us Peter Styles Jr., MD LAB BLOOD ORDERABLES Final Result Performing Organization Address [facility] de Phone Number [facility] [place] [address] documented in this encounter Visit Diagnoses Diagnosis Type 2 diabetes mellitus with ketoacidosis without coma, without long-term current use of insulin (HCC) documented in this encounter Care Teams Carbon Sequestration Plant Manager Relationship Specialty Start Date End Date Jann Burrows MD [address] [place] [address] [address] [place] [address] PCP - General Hematology 03/13/19 10/28/21 documented as of this encounter
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
--- OUTSIDE RECORDS SUMMARY | 2024-05-14 03:27 | XMS_ITS | Encounter Summary ---
Author Organization [facility] Address [address] [place] [address] Phone Care Team Providers Care Apartment Community Manager Name Role Phone Jann Burrows MD Primary Care Provider [phone] Encounter Details Date Type Department Care Team (Latest Contact Info) Description 11/19/2019 3:40 PM CDT Office Visit [facility] Endocrinology Metabolism and Lipid [address] [facility] Advanced Medicine 5th [place] [address] [place] [address] Peter Styles Jr., MD [address] [place] [address] Type 2 diabetes mellitus with ketoacidosis without [...] on file 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 Current interpretive data was last revised 2018. Creatinine Ur 326.6 mg/dL [facility] Comment: Interpretive Data No reference range established. Current interpretive data was last revised 2018. Albumin Creatinine Ratio, Ur 66(H) 1 - 29 mg/g [facility] Urine 11/19/2019 5:59 PM CDT 11/19/2019 10:14 PM CDT us Peter Styles Jr., MD LAB URINE ORDERABLES Final Result [facility] One [facility] Department [place] [address] * POCT hemoglobin A1c (11/19/2019 4:15 PM [...] X documented in this encounter Care Teams Apartment Community Manager Relationship Specialty Start Date End Date Jann Burrows MD [id number] [place] [address] PCP - General Hematology 03/13/19 10/28/21 documented as of this encounter
--- OUTSIDE RECORDS SUMMARY | 2024-05-14 03:27 | XMS_ITS | Encounter Summary ---
Author Organization [facility] Address [address] [place] [address] Phone Care Team Providers Care Principal Java Software Engineer Name Role Phone Jann Burrows MD Primary Care Provider [phone] Encounter Details Date Type Department Care Team (Late st Contact Info) Description 12/31/2019 Orders Only [facility] Endocrinology Metabolism and Lipid [address] [facility] Advanced Medicine 5th [place] [address] [place] [address] Peter Styles Jr., MD [address] [place] [address] Type 2 diabetes mellitus with ketoacidosis without coma, without long-term current use of insulin (CMS/[facility]) (Primary Dx) Social History Tobacco Use Types Packs/Day Years Used Date Smoking Tobacco: Every Day Cigarettes Smokeless Tobacco: Current Chew Alcohol Use Standard Drinks/Week Comments Yes 24 (1 standard drink = 0.6 oz pu re alcohol) CAGE negative. Case per week. 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 file [...] MD LAB BLOOD ORDERABLES Final Result [facility] One [facility] Department [place] [address] documented in this encounter Visit Diagnoses Diagnosis Type 2 diabetes mellitus with ketoacidosis without coma, without long-term current use of insulin (HCC)- Primary documented in this encounter Care Teams Principal Java Software Engineer Relationship Specialty Start Date End Date Jann Burrows MD [address] [facility] [address] [place] [address] PCP - General Hematology 03/13/19 10/28/21 documented as of this encounter
--- OUTSIDE RECORDS SUMMARY | 2024-05-14 03:27 | XMS_ITS | Encounter Summary ---
Author Organization [facility] Healthcare Address [address] [place] [address] Care Team Providers Care Machine Turner Name Role Phone Jann Burrows MD Primary Care Provider [phone] Mariana Monique MD Unavailable [phone] Reason for Visit * Reason Onset Date Comments Follow-up 2019 Encounter Details Date Type Department Care Team (Late st Contact Info) Description 2019 Telephone [facility] Primary Care Medicine Clinic [address] [facility] [address] [place] [address] Jann Burrows MD [address] [facility] [address] [place] [address] Follow-up Social History Tobacco Use Types Packs/Day Years Used Date Smoking Tobacco: Every Day Cigarettes Smokeless Tobacco: Current Chew Alcohol Use Standard Drinks/Week Comments Yes 24 (1 standard drink = 0.6 oz pu re alcohol) CAGE negative. Case per week. 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 Please follow up. Patient contact: [phone] Jose [phone] * Telephone Encounter - Smith Rhoades MD [...] and follow up with patient. Patient contact: [phone] Jose Campoverde [phone] documented in this encounter Plan of Treatment Not on file documented as of this encounter Visit Diagnoses Not on filedocumented in this encounter Additional Health Concerns Infection Onset Date Last Indicated Resolved Time COVID: Suspected 01/14/2020 01/14/2020 01/14/2020 6:21 PM CDT COVID19 01/15/2020 01/15/2020 01/31/2020 3:06 AM CDT documented as of this encounter Care Teams Machine Turner Relationship Specialty Start Date End Date Jann Burrows MD [address] [place] [address] PCP - General Hematology 03/13/19 10/28/21 Mariana Monique MD [address] [place] [address] Referring Physician Internal Medicine 01/17/20 documented as of this encounter
--- OUTSIDE RECORDS SUMMARY | 2024-05-14 03:27 | XMS_ITS | Encounter Summary ---
Author Organization [facility] Healthcare Address [address] [place] [address] Care Team Providers Care Progressive Die Maker Name Role Phone Jann Burrows MD Primary Care Provider [phone] Reason for Visit * Reason Onset Date Comments Follow-up 10/26/2019 Encounter Details Date Type Department Care Team (Late st Contact Info) Description 10/26/2019 Telephone [facility] Primary Care Medicine Clinic [address] [facility] [address] [place], [place] [id number] Jann Burrows MD [address] [facility] [address] [place], [place] [address] Follow-up Social History Tobacco Use Types Packs/Day Years Used Date Smoking Tobacco: Never Smokeless Tobacco: Never Alcohol Use Standard Drinks/Week Comments Yes 24 (1 standard drink = 0.6 oz pu re alcohol) CAGE negative. Case per week. 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 Burrows, Patient requesting a referral for foot care, he states he has ingrown toe nails. Please follow up with patient at [phone]. Jose Campoverde [phone] documented in this encounter Plan of Treatment Not on file documented as of this encounter Visit Diagnoses Not on filedocumented in this encounter Care Teams Progressive Die Maker Relationship Specialty Start Date End Date Jann Burrows MD [address] [facility] [address] [place] [address] PCP - General Hematology 03/13/19 10/28/21 documented as of this encounter
--- OUTSIDE RECORDS SUMMARY | 2024-05-14 03:27 | XMS_ITS | Encounter Summary ---
Author Organization [facility] Healthcare Address [address] [place] [address] Care Team Providers Care Benzene Washer Operator Name Role Phone Jann Burrows MD Primary Care Provider [phone] Reason for Visit * Reason Onset Date Comments Vomiting Diarrhea 01/14/2020 Encounter Details Date Type Department Care Team (Late st Contact Info) Description 01/14/2020 Nurse Triage [facility] Specialty Services [address] [place] [address] Mendel Syed, RN Social History Tobacco Use Types Packs/Day Years Used Date Smoking Tobacco: Never Smokeless Tobacco: Former Chew Quit: 01/13/2019 Alcohol Use Standard Drinks/Week Comments Not Currently 0 (1 standard drink = 0.6 oz pur e alcohol) Sex and Gender Information Value Date Recorded Sex Assigned at Not on file 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 He said he's still vomiting, diarrhea And coughing. He had COVID test done on 01/10 at [facility] in [place]. He hasn't received results yet. Please call. [...] on filedocumented in this encounter Care Teams Benzene Washer Operator Relationship Specialty Start Date End Date Jann Burrows MD [address] [place] [address] PCP - General Hematology 03/13/19 10/28/21 documented as of this encounter
--- OUTSIDE RECORDS SUMMARY | 2024-05-14 03:27 | XMS_ITS | Encounter Summary ---
Author Organization [facility] Healthcare Address [address] [place] [address] Care Team Providers Care Clerical Specialist Name Role Phone Jann Burrows MD Primary Care Provider [phone] Encounter Details Date Type Department Care Team (Late st Contact Info) Description 08/03/2019 Patient Self-Triage [facility] HealthCare/ Physicians [address] [place] [address] Mychart, Generic Provider [address] [place] [address] Social History Tobacco Use Types Packs/Day Years Used Date Smoking Tobacco: Never Smokeless Tobacco: Never Alcohol Use Standard Drinks/Week Comments Yes 24 (1 standard drink = 0.6 oz pu re alcohol) CAGE negative. Case per week. 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
--- OUTSIDE RECORDS SUMMARY | 2024-05-14 03:27 | XMS_ITS | Encounter Summary ---
Author Organization [facility] Address [address] [place] [address] Phone Care Team Providers Care Commissioned Fire Officer Name Role Phone Jann Burrows MD Primary Care Provider [phone] Encounter Details Date Type Department Care Team (Late st Contact Info) Description 08/13/2019 Documentation [facility] Endocrinology Metabolism and Lipid [address] [facility] Advanced Medicine 5th [place] [address] [place] [address] Peter Styles Jr., MD [address] [place] [address] Social History Tobacco Use Types Packs/Day Years Used Date Smoking Tobacco: Never Smokeless Tobacco: Never Alcohol Use Standard Drinks/Week Comments Yes 24 (1 standard drink = 0.6 oz pu re alcohol) CAGE negative. Case per week. 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
--- OUTSIDE RECORDS SUMMARY | 2024-05-14 03:27 | XMS_ITS | Encounter Summary ---
Author Organization [facility] Address [address] [place] [address] Phone Care Team Providers Care Packaging Line Operator Name Role Phone Jann Burrows MD Primary Care Provider [phone] Mariana Monique MD Unavailable [phone] Reason for Referral * Cardiology (Routine) - Closed Specialty Diagnoses / Procedures Referred By Contac t Referred To Contact Diagnoses Asymmetric septal hypertrophy Benign essential hypertension Procedures Transthoracic Echo Complete W Doppler/CF Tania Beth MD Phone: tel: fax: [address] [address] Referral ID Status Reason Start Date Expiration Date Visits Re quested Visits Authorized [id number] Closed 05/25/2020 06/24/2021 1 1 BASE SECURITY EXPERT Encounter Details Date Type Department Care Team (Late st Contact Info) Description 05/25/2020 1:00 PM DATABASE SECURITY EXPERT Office Visit [facility] Cardiology [facility] Advanced Medicine 8th [place] [address] [place] [address] Tania Beth MD [address] [facility] [address] [place] [address] Asymmetric septal hypertrophy (CMS/HCC) (Primary [...] on file Legal Sex Male 5:01 AM DATABASE SECURITY EXPERT Gender Identity Male 12/18/2017 12:38 PM CDT Sexual Orientation Not on file 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 Not on file Not on file documented as of this encounter Last Filed Vital Signs Vital Sign Reading Time Taken Comments Blood Pressure 125/78 05/25/2020 12:47 PM DATABASE SECURITY EXPERT Pulse 80 05/25/2020 12:47 PM DATABASE SECURITY EXPERT Temperature 36.7 ??C (98.1 ??F) 05/25/2020 1 2:47 PM DATABASE SECURITY EXPERT Respiratory Rate - - Oxygen Saturation 98% 05/25/2020 12: 47 PM DATABASE SECURITY EXPERT Inhaled Oxygen Concentration - - Weight 174.9 kg (385 lb 9.6 oz) 021 12:47 PM DATABASE SECURITY EXPERT Height - - Body Mass Index 43.44 01/14/2020 9:50 PM CDT documented in this encounter Patient Instructions * Patient Instructions* Tania Beth MD - 05/25/2020 1:00 PM DATABASE SECURITY EXPERT Echocardiogram. Lipid panel next week. Congratulations on your weight loss! Keep up the good work! BASE SECURITY EXPERT documented in this encounter Progress Notes * Tania Beth MD - 05/25/2020 1:00 PM CST Images from the original note were not included. Department of Medicine Tania Beth MD, MPHS, [facility] Cardiovascular Division Facilities Directorgraduate rn Patient Name: Geraldo Velez : 1995 Date [...] Hgb A1c 8.4. - Hospital admission to [facility] 01/2020 presented with SOB and cough, [...] days/week. 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 Outpatient Encounter Medications as of 05/25/2020 Medication [...] septum measuring 17 mm, primarily of the [id number] interventricular septum. There was no systolic anterior [...] or concerns. Respectfully, Tania Beth MD, MPHS, [facility] Facilities Directorgraduate rn Cardiovascular Division [facility] --- Please note: This note was generated in part using voice-recognition software and may contain customer service receptionist errors. BASE SECURITY EXPERT documented in this encounter Plan of Treatment Not on file documented as of this encounter Results * TRANSTHORACIC ECHO (TTE) COMPLETE W DOPPLER/CF W CONTRAST (06/02/2020 10:27 AM DATABASE SECURITY EXPERT) Anatomical Region Laterality Modality Ultrasound 06/02/2020 9:30 AM DATABASE SECURITY EXPERT Narrative 06/03/2020 10:15 PM DATABASE SECURITY EXPERT Patient name: Geraldo Velez Date of test: 06/02/2020 Type of test: TTE w/Doppler [facility] #: [id number] Date of : 1995 (M) Geotechnical Engineer: Angélica Heath(Ragini), [facility] Referring Physician: TANIA BETH MD Contrast Agent: 0.4 ml Optison Administered, (2.6 ml wasted). Contrast Administered by: Yahaira Hatch RN Supervised/Interpreted by: Noreen Jha MD Diagnosis: Location: [facility] Reason for test: Asymetrical Septal hypertrophy, [...] 2=Hypo 3=Akinetic 4=Dyskin./Aneurysm 0=Not visualized) Parasternal Long [place]:MAS=1 BAS=1 MIL=1 ANABELLE=1 Parasternal Short [place]:MAS=1 MIS=1 OH=1 MIL=1 MAL=1 MA=1 Apical 4 Chambers:=1 MIS=1 BIS=1 BAL=1 MAL=1 AL=1 AC=1 Apical 2 Chambers:AI=1 OH=1 BI=1 BA=1 MA=1 AA=1 AC=1 LV Global Longitudinal Strain: -13.2% ??(Normal <-17%) RV Global Longitudinal Strain: LV Function: Normal LV Ejection Fraction, (EF=52-72%) RV Function: mild global hypokinesis Septal Motion: normal Pericardial Effusion: none seen Atrial Septum: Normal on 2D DOPPLER/COLOR FLOW DOPPLER RESULTS: Diastolic Function: normal Tricuspid Valve: No TR Pulmonic Valve: No IL AV Regurgitation: No AR seen AV Stenosis: [...] no , no MS, No TR, No IL. Diastolic function: normal CONTRAST: 0.4 ml Optison [...] MD By signing this report, the attending cable tender certifies that he or she has personally supervised and interpreted the echocardiogram and has reviewed and or edited and agrees with the written comments contained within the report. Procedure Note Noreen Jha MD - 06/03/2020 Patient name: Geraldo Velez Date of test: 06/02/2020 Type of test: E /[facility] #: [id number] Date of : 1995 (M) Geotechnical Engineer: Angélica Baez), [facility] Referring Physician: TANIA BETH MD Contrast Agent: 0.4 ml Optison Administered, (2.6 ml wasted). Contrast Administered by: Yahaira Hatch RN Supervised/Interpreted by: Noreen Jha MD Diagnosis: Location: [facility] Reason for test: Asymetrical Septal hypertrophy, HTN [...] 2=Hypo 3=Akinetic 4=Dyskin./Aneurysm 0=Not visualized) Parasternal Long [place]:MAS=1 BAS=1 MIL=1 ANABELLE=1 Parasternal Short [place]:MAS=1 MIS=1 OH=1 MIL=1 MAL=1 MA=1 Apical 4 Chambers:=1 MIS=1 BIS=1 BAL=1 MAL=1 AL=1 AC=1 Apical 2 Chambers:AI=1 OH=1 BI=1 BA=1 MA=1 AA=1 AC=1 LV Global Longitudinal Strain: -13.2% (Normal <-17%) RV Global Longitudinal Strain: LV Function: Normal LV Ejection Fraction, (EF=52-72%) RV Function: mild global hypokinesis Septal Motion: normal Pericardial Effusion: none seen Atrial Septum: Normal on 2D DOPPLER/COLOR FLOW DOPPLER RESULTS: Diastolic Function: normal Tricuspid Valve: No TR Pulmonic Valve: No IL AV Regurgitation: No AR seen AV Stenosis: [...] no , no MS, No TR, No IL. Diastolic function: normal CONTRAST: 0.4 ml Optison [...] MD By signing this report, the attending cable tender certifies that he or she has personally [...] documented as of this encounter Care Teams Packaging Line Operator Relationship Specialty Start Date End Date Jann Burrows MD [address] [place] [address] PCP - General Hematology 03/13/19 10/28/21 Mariana Monique MD [address] [place] [address] Referring Physician Internal Medicine 01/17/20 documented as of this encounter
--- OUTSIDE RECORDS SUMMARY | 2024-05-14 03:27 | XMS_ITS | Encounter Summary ---
Author Organization [facility] Healthcare Address [address] [place] [address] Care Team Providers Care All Terrain Vehicle Technician Name Role Phone Jann Burrows MD Primary Care Provider [phone] Encounter Details Date Type Department Care Team (Late st Contact Info) Description 08/11/2019 Telephone [facility] Primary Care Medicine Clinic [address] [facility] [address] [place], [place] [id number] Karla Rossi MD [address] [facility] [address] [place] [address] Social History Tobacco Use Types Packs/Day Years Used Date Smoking Tobacco: Never Smokeless Tobacco: Never Alcohol Use Standard Drinks/Week Comments Yes 24 (1 standard drink = 0.6 oz pu re alcohol) CAGE negative. Case per week. 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 Sympathized with patient that he won't be [...] documented as of this encounter Care Teams All Terrain Vehicle Technician Relationship Specialty Start Date End Date Jann Burrows MD [address] [facility] [address] [place] [address] PCP - General Hematology 03/13/19 10/28/21 documented as of this encounter
--- OUTSIDE RECORDS SUMMARY | 2024-05-14 03:27 | XMS_ITS | Encounter Summary ---
Author Organization [facility] Address [address] [place] [address] Phone Care Team Providers Care Salt Machine Operator Name Role Phone Jann Burrows MD Primary Care Provider [phone] Mariana Monique MD Unavailable [phone] Reason for Visit * Reason Onset Date Comments Med Refill 02/10/2020 Encounter Details Date Type Department Care Team (Late st Contact Info) Description 02/10/2020 Telephone [facility] Cardiology [facility] Advanced Medicine 8th [place] [address] [place] [address] Annika Sutherland Med Refill Social History Tobacco Use Types Packs/Day Years Used Date Smoking Tobacco: Never Smokeless Tobacco: Former Chew Quit: 01/13/2019 Alcohol Use Standard Drinks/Week Comments Not Currently 0 (1 standard drink = 0.6 oz pur e alcohol) Sex and Gender Information Value Date Recorded Sex Assigned at Not on file Legal Sex Male 5:01 AM STILL TENDER Gender Identity Male 12/18/2017 12:38 PM CDT Sexual Orientation Not on file 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
--- OUTSIDE RECORDS SUMMARY | 2024-05-14 03:28 | XMS_ITS | Encounter Summary ---
Author Organization [facility] Healthcare Address [address] [place] [address] Care Team Providers Care Data Virtualization Consultant Name Role Phone Jann Burrows MD Primary Care Provider [phone] Reason for Visit * Reason Comments Hospital Follow Up DKA Encounter Details Date Type Department Care Team (Late st Contact Info) Description 03/13/2019 11:15 AM [facility]TER Office Visit [facility] [address] 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 Not on file Not on file documented as of this encounter Last Filed Vital Signs Vital Sign Reading Time Taken Comments Blood Pressure 153/93 03/13/2019 11:10 AM [facility] did not take BP meds Pulse 95 03/13/2019 11:10 AM [facility] Temperature 36.7 ??C (98 ??F) 03/13/2019 11: 10 AM [facility] Respiratory Rate 14 03/13/2019 11:1 0 AM [facility] Oxygen Saturation 96% 03/13/2019 11: 10 AM [facility] Inhaled Oxygen Concentration - - Weight 215.5 kg (475 lb) 03/13/2019 11: 10 AM [facility] Height 200.7 cm (6' 7 ) 03/13/2019 11:1 0 AM [facility] Body Mass Index 53.51 03/13/2019 11:10 AM [facility] documented in this encounter Patient Instructions * Patient Instructions* Nikita Buchanan MD - 03/13/2019 11:15 AM [facility] Get bloodwork drawn today on the fourth floor. Follow up with endocrinology as scheduled on . [facility] documented in this encounter Ordered Prescriptions Prescription [...] and lisinopril 5mg. Patient was seen by patient educator and nutrition to educate the patient [...] with BMI of 50.0-59.9, adult ([facility]) 07/10/2017 HOME MEDICATIONS HOME MEDICATIONS [...] Not on file Occupational History ??? 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 Financial resource strain: Not [...] file Gets together: Not on file Attends jew service: Not on file Active member of [...] -BMP given recent lisinopril initiation -ophthalmology referral -appraiser oil and water -ems educator referral -refilled 32 gauge 5/32 inch [...] carvedilol, lisinopril, and Lozol (prescribed by his customer data technician Dr. Walton). Blood pressure previously very well controlled, I will make no changes today. Follow up with PCP Staffed: Amanda All other issues per PCP Nikita Buchanan MD Internal Medicine PGY-2 Cosigned by Evangelina Patel MD at 03/15/2019 5:29 AM [facility] S[facility]TER [facility] S[facility] Associated attestation - Evangelina Patel MD - 03/15/2019 5:29 AM [facility] I have seen and examined the patient. I agree with the findings and plan of care as documented in the resident/fellow's note. Evangelina Patel MD * Jef Craig RN - 03/13/2019 11:15 AM CST Patient indicates understanding of discharge plan of care, instructions given by MD. Patient deniesquestions. Patient escorted to the checkout desk. Patient ambulating and stable at discharge. 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 Did not take his blood pressure medicines which are carvedilol, lisinopril, and Lozol (prescribed by his customer data technician Dr. Walton). Blood pressure previously very well controlled, I will make no changes today. Follow up with PCP [facility] * Assessment & Plan Note - Nikita Buchanan MD - 03/13/2019 12:05 PM [facility] Associated Problem(s): Metabolic syndrome (Deleted) Recently admitted [...] -BMP given recent lisinopril initiation -ophthalmology referral -appraiser oil and water -ems educator referral -refilled 32 gauge 5/32 inch insulin needles for U 500 -continue to emphasize importance of weight loss. I believe he would be a very good candidate for bariatric surgery if this becomes feasible [facility] documented in this encounter Plan of Treatment Not on file documented as of this encounter Results * Basic metabolic panel (03/13/2019 12:30 PM [facility]AN[facility] SORTER) Sodium 142 135 - 145 mmol/L [facility] Potassium, pl 4.3 3.3 - 4.9 mmol/L [facility] Comment:Hemolyzed; (++); pot assium value may be falsely elevated by as much as 0.3 - 0.5 mmol/L. Suggest redraw and reanalysis. Chloride 107 97 - 110 mmol/L [facility] CO2 25 22 - 32 mmol/L [facility] Anion gap 10 2 - 15 mmol/L [facility] BUN 14 8 - 25 mg/dL [facility] Creatinine 0.87 0.80 - 1.30 mg/dL [facility] Glucose 90 70 - 199 mg/dL [facility] Comment: Interpretive Data Fasting glucose >/= 126 [...] 2017. Calcium 9.4 8.5 - 10.3 mg/dL [facility] Blood specimen (specimen) 03/13/2019 12:30 PM [facility]TER 03/13/2019 1:46 PM [facility] Nikita Buchanan MD LAB BLOOD ORDERABLES Final Resul t [facility]AC[facility] Department [place] [address] documented in this encounter Visit Diagnoses Diagnosis Metabolic syndrome- Primary Dysmetabolic Syndrome X Morbid obesity with BMI of 50.0-59.9, adult (HCC) Essential hypertension Unspecified essential hypertension documented in this encounter Care Teams Data Virtualization Consultant Relationship Specialty Start Date End Date Jann Burrows MD [address] [facility] [address] [place] [address] PCP - General Hematology 03/13/19 10/28/21 documented as of this encounter
--- OUTSIDE RECORDS SUMMARY | 2024-05-14 03:28 | XMS_ITS | Encounter Summary ---
Author Organization [facility] Healthcare Address [address] [place] [address] Care Team Providers Care Bench Mechanic Name Role Phone Etelvina Del Cid MD Primary Care Provider + Reason for Referral * Consultation (Routine) - Closed Specialty Diagnoses / Procedures Referred By Contac t Referred To Contact Endocrinology Diagnoses Diabetic ketoacidosis without coma associated with other specified diabetes mellitus (HCC) Peter Styles Jr., MD Phone: tel: fax: [facility] (All Locations) Referral ID Status Reason Start Date Expiration Date V isits Requested Visits Authorized [id number] Closed Specialty Services Required 03/08/2019 05/05/2019 4 4 Question Answer Please select the performing region: [facility] (All Locations) [167] # of visits: 1 Comments Admitted with DKA. No previous diagnosis of DM. FING ACCOUNT MANAGER Reason for Visit * Reason Comments Chest Pain Shortness of Breath Encounter Details Date Type Department Care Team (Latest Contact Info) Description 03/02/2019 6:00 PM CDT - 03/08/2019 10:32 AM STAFFING ACCOUNT MANAGER Hospital Encounter [facility] [address] [place] [address] Kenroy Farr MD [address] [place] [address] Peter Styles Jr., MD [address] [place] [address] Mari Rick MD [address] [place] [address] Nita Palacios MD [address] [place] [address] Diabetic ketoacidosis without coma associated with type [...] on file Legal Sex Male 5:01 AM STAFFING ACCOUNT MANAGER Gender Identity Male 12/18/2017 12:38 PM CDT Sexual Orientation Not on file documented as of this encounter Last Filed Vital Signs Vital Sign Reading Time Taken Comments Blood Pressure 122/72 03/08/2019 8:46 AM STAFFING ACCOUNT MANAGER Pulse 73 03/08/2019 3:35 AM STAFFING ACCOUNT MANAGER Temperature 36.5 ??C (97.7 ??F) 03/08/2019 3:35 AM CS T Respiratory Rate 18 03/08/2019 3:35 AM STAFFING ACCOUNT MANAGER Oxygen Saturation 96% 03/08/2019 3:35 AM STAFFING ACCOUNT MANAGER Inhaled Oxygen Concentration - - Weight 207.2 [...] Physician at Discharge: Etelvina Del Cid MD [phone] Admission Date: 03/02/2019 Discharge Date: 03/08/2019 Admission Location: [facility] Primary Discharge Diagnosis: Diabetic acidosis and new [...] ketones 3.4, AG 22). Admitted to medicine [facility] 03/03/19. At arrival to ED, chest pain was 8/10. ?? Of note patient does not have a formal diagnosis of diabetes mellitus, but per previous cardiology note (07/2018) previously diagnosed with metabolic syndrome and on metformin. ?? [facility], patient states his chest pain and [...] normal sinus rhythm with undetermined age inferior ND, pro-BNP negative, and chest pain spontaneously resolved. Diabetic ketoacidosis was treated with IV insulin, IV fluids, and PRN electrolyte repletion. Patient was given lantus 40mg at 0430 03/03/19 and ins ulin gtt was stopped at 0630 03/03/19. [facility], AG 12, serum ketones .8, and BG 193. Additional notable labs include: hemolyzed HFTs, UA with3+ glucose/protein/ketones, without leukocyte esterase/nitrites/WBCs/RBCs, CXR without PNA, and a negative influenza/RSV. [facility], patient is hemodynamically stable with BP [...] no formal diagnosis ofDiabetes Mellitus. In the [facility] ED, patient was treated with IVF, [...] as an outpatient. Patient was seen by preparatory technician andnutrition to educate the patient about carbohydrate [...] Order Current Status POCT glucose Collected (03/05/19 7590) Glutamic acid decarboxylase In process Insulin antibody [...] am at the [facility] Medicine Clinic ([facility]). Discharge Medications: [...] (three) times a day with meals lancets [facility] Patient needs in room for diabetes education lisinopril 5 mg tablet Commonly known as: PRINIVIL,ZESTRIL Take 1 tablet (5 mg total) by mouth daily metFORMIN 500 mg tablet Commonly known as: GLUCOPHAGE Take 1 tablet (500 mg total) by mouth 2 (two) times a day with meals Outpatient Follow-Up: Future Appointments Date Time Provider Department Center 03/13/2019 11:15 AM [facility] Alfonso, AMB RES [facility] 03/18/2019 3:30 PM Jef Walton MD [facility] Cardiology Cosigned by Peter Styles MD at 03/09/2019 6:43 AM STAFFING ACCOUNT MANAGER FING ACCOUNT MANAGER FING ACCOUNT MANAGER documented in this encounter Discharge Instructions * Discharge Instructions* Jann Burrows MD - 03/08/2019 8:04 AM STAFFING ACCOUNT MANAGER Mr. Velez, you were admitted to the hospital for diabetic ketoacidosis and new diagnosis of Diabetes Mellitus. Following discharge, we want you to be seen by a primary care doctor and an Energy Management Specialist. You have an appointment with a primary care doctor in the [facility] on 03/13/19 (phone number # [phone]). In regards to the Endocrinology appointment, we [...] educated to do so by nutrition and preparatory technician. You will be discharged with a glucometer,and [...] discharge. Either your primary care doctor or lombardi developer can discuss these results with you. FING ACCOUNT MANAGER * Discharge Instr - Other Orders* Megan Cabrera RN - 03/06/2019 3:30 PM CDT A hospital follow-up appointment has been scheduled for you on 03/13/2019 at 11:15 am at the Primary Care Medicine Clinic ([facility]). documented in [...] with meals 14.4 mL 03/08/2019 9 andre [facility] Patient needs in room for diabetes education [...] Age: 23 y.o. male Admit: 03/02/2019 Unit: [id number] Contact: Extended Emergency Contact Information Primary Emergency Contact: Leatha Velez [facility] Relation: Mother Service: Medical Primary care [...] - Daily BMPs. Replete as needed. - chisel mortiser operator consult placed. - HbA1c 5.8 in 09/2017. [...] Peter Styles MD at 03/09/2019 6:41 AM STAFFING ACCOUNT MANAGER FING ACCOUNT MANAGER FING ACCOUNT MANAGER Associated attestation - Peter Styles Jr., MD - 03/09/2019 6:41 AM STAFFING ACCOUNT MANAGER I have seen and examined the patient on 03/08/2019. I agree with the findings and plan of care as documented in the resident's/fellow's note. * Jann Burrows MD - 03/07/2019 9:57 AM CDT General Note Name: Geraldo Velez Today: March 07, 2019 : 1995 Age: 23 y.o. male Admit: 03/02/2019 Unit: [id number] Contact: Extended Emergency Contact Information Primary Emergency Contact: Leatha Velez [facility] Relation: Mother Service: Medical Primary care [...] - Daily BMPs. Replete as needed. - chisel mortiser operator consult placed. - HbA1c 5.8 in 09/2017. [...] Age: 23 y.o. male Admit: 03/02/2019 Unit: [id number] Contact: Extended Emergency Contact Information Primary Emergency Contact: Leatha Velez [facility] Relation: Mother Service: Medical Primary care [...] - Daily BMPs. Replete as needed. - chisel mortiser operator consult placed. - HbA1c 5.8 in 09/2017. [...] Age: 23 y.o. male Admit: 03/02/2019 Unit: [id number] Contact: Extended Emergency Contact Information Primary Emergency Contact: Leatha Velez [facility] Relation: Mother Service: Medical Primary care [...] OR dextrose ??? glucagon ??? influenza quadrivalent [id number] ??? ondansetron ODT OR ondansetron ??? ramelteon [...] - Daily BMPs. Replete as needed. - chisel mortiser operator consult placed. - HbA1c 5.8 in 09/2017. [...] OR dextrose ??? glucagon ??? influenza quadrivalent [id number] ??? ondansetron ODT OR ondansetron ??? ramelteon [...] - Daily BMPs. Replete as needed. - chisel mortiser operator consult placed. - HbA1c 5.8 in 09/2017. [...] RN - 03/04/2019 8:53 AM CDT 03/04/19 7903 Information Information Obtained From Patient Prior to Admission Primary Caregiver Self Support System Parent Support system contact info (name, phone, availablity) Leatha Velez (patient's mother) [phone] Home Care Services No Durable Medical Equipment None Living Arrangements Parent Type of Residence Private residence (Patient lives in a house with his parents.) Steps in home? 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 Patient admitted for treatment of: chest pain/SOB Information obtained from: patient Insurance verified as: [facility] [employer] (Patient is under his father's plan.) Prescription Coverage: yes PCP verified as: none; Patient wants to follow-up at the [facility]. CM will schedule. Transportation: per mother Admission Source: non-healthcare facility Additional Information/Options Discussed: Verified demographic information from the face sheet withthe patient. Explained role and purpose of pillowcase cutter. Denies the use of home health in the past - a list will be provided if recommended. Patient demonstrates no agency preference at this time. manager product design to continue to follow for planning and [...] ketones 3.4, AG 22). Admitted to medicine [facility] 03/03/19. At arrival to ED, chest pain was 8/10. Of note patient does not have a formal diagnosis of diabetes mellitus, but per previous cardiology note (07/2018) previously diagnosed with metabolic syndrome and on metformin. At time of admission to [facility], patient states his chest pain and dyspnea [...] normal sinus rhythm with undetermined age inferior ND, pro-BNP negative, and chest pain spontaneously resolved. Diabetic ketoacidosis was treated with IV insulin, IV fluids, and PRN electrolyte repletion. Patient was given lantus 40mg at 0430 03/03/19 and ins ulin gtt was stopped at 0630 03/03/19. [facility], AG 12, serum ketones .8, and BG 193. Additional notable labs include: hemolyzed HFTs, UA with3+ glucose/protein/ketones, without leukocyte esterase/nitrites/WBCs/RBCs, CXR without PNA, and a negative influenza/RSV. [facility], patient is hemodynamically stable with BP 141/79 (following Coreg 25mg). ROS: Positive: vision changes Negative: fevers/chills, abdominal pain, polydipsia, polyria, hematuria, dysuria, weight changes (gain/loss), changes in bowel habits, chest pain, dyspnea Past Medical History: Diagnosis Date ??? HTN (hypertension) ??? Metabolic syndrome ??? Morbid obesity with BMI of 50.0-59.9, adult ([facility]) 07/10/2017 History reviewed. No pertinent [...] - Daily BMPs. Replete as needed. - chisel mortiser operator consult placed. - HbA1c 5.8 in 09/2017. [...] Morbid obesity with BMI of 50.0-59.9, adult ([facility]) 07/10/2017 History reviewed. No pertinent [...] Carbohydrate Diet effective now Question Answer Comment ([facility]) Diet type Restricted Fat / Sodium [...] Weight changes Jenifer Kunz MS, RD, LD [phone] documented in this encounter Nursing Notes * Hazel Storm, RN - 03/05/2019 3:58 PM CDT 03/05/19 1545 Pre-Education Assessment Time In 1430 Time Out 1546 Units of Service 5 Visit Type Initial Introduction ID verified;Alert/ oriented x 4;Education provided with patient approval (Pt's mother included in education with permission of the pt. ) Provider Medical/Police Officer/PCP (MD states pt. 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 States he drinks diet soda & is not a sweet eater but admits to overeating on carbs & drinking 24oz of milk at a time. ) Exercise Habits Active Hypoglycemia New onset, unknown at this time Home Supplies (Pt states he has [employer] insurance. ) Inpatient Recommendations RN to practice with patient Injections RN to reinforce with patient Consistent carb diet;Carb counting Consults Made (Floor RN to make dietitian consult) Discharge Recommendations Insulin Pen Humalog Kwik Pen (pkg of 5);Lantus Solostar Pre-filled Pen (pkg of 5) (Pt. used insulin teaching pen to inject into pillow with good technique. ) Pen [place] Ultra fine 4 mm Glucometer OneTouch Verio [...] he will be following up in the [facility] clinic. ) Additional Recommendations Glucagon [...] and admission to the intensive care unit. [facility] Kenroy Farr MD Attending Emergency Physician [...] does not have HOCM but mom called servicer who said to come here for evaluation. Patient also is endorsing viral URI symptoms such as sore throat, dry intermittent cough, congestion, runny nose. Denies fevers or chills. Reports that chest pain is bilateral tightness and does not radiate elsewhere. Never had a blood clot before. Patient works at [employer]. Did not get his flu shot. No [...] for the Shift: monitor blood sugars Summary: FING ACCOUNT MANAGER * Plan of Care - Amna Foreman [...] no formal diagnosis ofDiabetes Mellitus. In the [facility] ED, patient was treated with IVF, [...] as an outpatient. Patient was seen by preparatory technician andnutrition to educate the patient about carbohydrate [...] 5mg qday Consider repeat fasting lipid panel FING ACCOUNT MANAGER * Plan of Care - Muna Rojas [...] Glenn Chiu MD, am taking signout from [facility]. I have reviewed all pertinent vital [...] they might be taking a pt from [facility] so will call back in regards [...] MICU beds available. Will attempt transfer to [facility] By: Melanie Sloan MD Time: 03/03 7426 Comment: Gap closed, will give lantus 40 units (0.3 units/kg would be 66) and turn off drip in 2 hours, floor admission By: MD Noah Sosa MD Resident 03/03/19 2266 * ED Observation Provider Note - Bonita [...] help HTN. - HDS. CTM vital signs. FING ACCOUNT MANAGER * Assessment & Plan Note - Jann [...] - Daily BMPs. Replete as needed. - chisel mortiser operator consult placed. - HbA1c 5.8 in 09/2017. [...] will require referral to endocrinology at discharge. FING ACCOUNT MANAGER * ED Observation Provider Note - Bonita [...] Sign out received from: Dr. Miller , [facility], medications, allergies and RN & MD notes [...] they might be taking a pt from [facility] so will call back in regards to bed status. Asking for bnp. Will also trend trop and repeat ekg. By: Windy Miller MD Time: 03/02 2304 Comment: Received signout from Dr. Frar, briefly this is a 23 y/o male [...] OSH By: Melanie Sloan MD Time: 03/03 9127 Comment: Gap closed, will give lantus 40 [...] the admitting team. Kenroy Farr MD 03/02/19 1828 * ED Procedure Note - Kenroy Farr [...] Also polyuria and polydipsia. Blood glucose in [id number] and ketones greater than 3 here. On [...] GLUCOSE DEVICE Routine 03/08/2019 7 :45 AM STAFFING ACCOUNT MANAGER POCT GLUCOSE DEVICE Routine 03/08/2019 3 :32 AM STAFFING ACCOUNT MANAGER DIFFERENTIAL AUTO Routine 03/08/2019 1:3 2 AM [...] DEVICE Routine 03/02/2019 1 0:14 PM CDT CO CRITICAL CARE ILL/INJURED PATIENT ADDL 30 MIN Routine 03/02/2019 10:02 PM CDT CO CRITICAL CARE ILL/INJURED PATIENT INIT 30-74 MIN [...] Results * POCT glucose (03/08/2019 7:45 AM STAFFING ACCOUNT MANAGER) [facility] Glucose, POC 132 70 - 199 mg/dL [facility] Blood specimen (specimen) 03/08/2019 7:45 AM STAFFING ACCOUNT MANAGER 03/08/2019 7:45 AM STAFFING ACCOUNT MANAGER us Peter Styles Jr., MD LAB POCT ORDERABLES - DEVICE Final Result [facility] [place] [address] * POCT glucose (03/08/2019 3:32 AM STAFFING ACCOUNT MANAGER) Glucose, POC 101 70 - 199 mg/dL [facility] Blood specimen (specimen) 03/08/2019 3:32 AM STAFFING ACCOUNT MANAGER 03/08/2019 3:32 AM STAFFING ACCOUNT MANAGER Peter Styles Jr., MD LAB POCT ORDERABLES - DEVICE Final Result [facility] [place] [address] * (ABNORMAL) Differential, auto (03/08/2019 1:32 AM CDT) Pathologist [facility] Neutrophil abs 3.7 1.7 - 6.5 K/cumm [facility] Imm gran abs 0.0 0.0 - 0.1 K/cumm [facility] Lymphocyte abs 2.8 0.8 - 3.3 K/cumm [facility] Monocyte abs 0.9(H) 0.2 - 0.8 K/cumm [facility] Eosinophil abs 0.3 0.0 - 0.5 K/cumm [facility] Basophil abs 0.0 0.0 - 0.1 K/cumm [facility] Neutrophil pct 47.6 % [facility] Comment: Interpretive Data Percent cell count reference ranges are not reported, since discordance with absolute values may lead to misinterpretation of CBC data. Current Interpretive Data was last revised on 2017. Imm gran pct 0.6 % [facility] Comment: Interpretive Data Percent cell count reference ranges are not reported, since discordance with absolute values may lead to misinterpretation of CBC data. Current Interpretive Data was last revised on 2017. Lymphocyte pct 36.3 % [facility] Comment: Interpretive Data Percent cell count reference ranges are not reported, since discordance with absolute values may lead to misinterpretation of CBC data. Current Interpretive Data was last revised on 2017. Monocyte pct 11.5 % [facility] Comment: Interpretive Data Percent cell count reference ranges are not reported, since discordance with absolute values may lead to misinterpretation of CBC data. Current Interpretive Data was last revised on 2017. Eosinophil pct 3.4 % [facility] Comment: Interpretive Data Percent cell count reference ranges are not reported, since discordance with absolute values may lead to misinterpretation of CBC data. Current Interpretive Data was last revised on 2017. Basophil pct 0.6 % [facility] Comment: Interpretive Data Percent cell count reference ranges are not reported, since discordance with absolute values may lead to misinterpretation of CBC data. Current Interpretive Data was last revised on 2017. Blood specimen (specimen) 03/08/2019 1:32 AM CDT 03/08/2019 3:09 AM STAFFING ACCOUNT MANAGER us Nita Palacios MD LAB BLOOD ORDERABLES Melina castorena Result [facility] [place] [address] * Insulin-like growth factor (IGF-1) (03/08/2019 1:32 AM CDT) Insulin-like growth factor 1 (IGF-1) 101 80 - 400 ng/mL [facility] Comment: Interpretive Data Ismael Stage ? Male ? Female ?I ?80-250 ? 80-320 ? II ? 100-450 ?120-450 ??III ? 250-500 ?250-550 ?? IV ? 225-600 ?225-600 ?V ? 225-500 ?180-500 Assay calibrated to WHO and instituted at [facility] 09/2017. References: 1. [employer] IGF-1 Package Insert 2017-02, V 1.0. 2. [facility] IGFMS entry (https://DNAnexus.Vine/test-catalog/Overview/69041) accessed 09-11-2017. 3. Tutu M, Isac N, Lizandro RT et al. J Clin Endocrinol Metab 2014;99:0593-2109. Current interpretive data was last revised on 2017. Testing performed by: [facility], [place]., [address] Blood specimen (specimen) 03/08/2019 1:32 AM CDT 03/08/2019 3:00 AM STAFFING ACCOUNT MANAGER us Peter Styles Jr., MD LAB BLOOD ORDERABLES Final Result Performing Organization Address [facility] Co de Phone Number [facility] [place] [address] * Insulin antibody (03/08/2019 1:32 AM CDT) Insulin ab 0.00 0.00 - 0.02 nmol/L [facility] Comment: ADDITIONAL INFORMATION This test was developed and its performance characteristics determined by [facility] in a manner consistent with CLIA requirements. This test has not been cleared or approved by the U.S. Food and Drug Administration. Test Performed by: [facility] [place] [address] Human Services Worker: Josiah Turk M.D. Ph.D.; CLIA# [id number] Blood specimen (specimen) 03/08/2019 1:32 AM CDT 03/08/2019 1:46 AM CDT us Peter Styles Jr., MD LAB BLOOD ORDERABLES Final Result Performing Organization Address [facility] Co de Phone Number [facility] [place] [address] * (ABNORMAL) Basic metabolic panel (03/08/2019 1:32 AM CDT) [facility] Sodium 137 135 - 145 mmol/L [facility] Potassium, pl 3.2(L) 3.3 - 4.9 mmol/L [facility] Chloride 102 97 - 110 mmol/L [facility] CO2 23 22 - 32 mmol/L [facility] Anion gap 12 2 - 15 mmol/L [facility] BUN 13 8 - 25 mg/dL [facility] Creatinine 0.84 0.80 - 1.30 mg/dL [facility] Glucose 83 70 - 199 mg/dL [facility] Comment: Interpretive Data Fasting glucose >/= [...] 2017. Calcium 9.4 8.5 - 10.3 mg/dL [facility] Blood specimen (specimen) 03/08/2019 1:32 AM CDT 03/08/2019 3:04 AM STAFFING ACCOUNT MANAGER us Nita Palacios MD LAB BLOOD ORDERABLES Melina castorena Result [facility] [place] [address] * (ABNORMAL) CBC with auto differential (03/08/2019 1:32 AM CDT) [facility] WBC 7.8 3.8 - 9.9 K/cumm [facility] Hgb 15.3 13.0 - 17.5 g/dL [facility] Hct 42.4 38.9 - 50.3 % [facility] Plt 315 150 - 400 K/cumm [facility] MPV 10.3 9.1 - 12.3 fL [facility] RBC 5.19 4.30 - 5.80 M/cumm [facility] MCV 81.7 81.3 - 96.4 fL [facility] MCH 29.5 27.1 - 33.3 pg [facility] MCHC 36.1(H) 32.3 - 35.7 g/dL [facility] RDW CV 12.3 11.1 - 14.9 % [facility] RDW SD 36.3 35.7 - 48.1 fL [facility] NRBC abs 0.02(H) 0.00 - 0.01 K/cumm [facility] Blood specimen (specimen) 03/08/2019 1:32 AM CDT 03/08/2019 3:09 AM STAFFING ACCOUNT MANAGER us Nita Palacios MD LAB BLOOD ORDERABLES Melina l Result Performing Organization Address [facility] Co de Phone Number [facility] Department [place] [address] * POCT glucose (03/07/2019 11:37 PM CDT) Glucose, POC 111 70 - 199 mg/dL [facility] Blood specimen (specimen) 03/07/2019 11:37 PM CDT 03/07/2019 11:37 PM CDT us Peter Styles Jr., MD LAB POCT ORDERABLES - DEVICE Final Result Performing Organization Address [facility] Co de Phone Number [facility] [place] [address] * POCT glucose (03/07/2019 8:35 PM CDT) Glucose, POC 166 70 - 199 mg/dL [facility] Blood specimen (specimen) 03/07/2019 8:35 PM CDT 03/07/2019 8:35 PM CDT us Peter Styles Jr., MD LAB POCT ORDERABLES - DEVICE Final Result Performing Organization Address [facility] de Phone Number [facility] [place] [address] * POCT glucose (03/07/2019 5:31 PM CDT) Glucose, POC 165 70 - 199 mg/dL [facility] Blood specimen (specimen) 03/07/2019 5:31 PM CDT 03/07/2019 5:31 PM CDT us Peter Styles Jr., MD LAB POCT ORDERABLES - DEVICE Final Result Performing Organization Address [facility] de Phone Number [facility] [place] [address] * (ABNORMAL) POCT glucose (03/07/2019 3:50 PM CDT) Glucose, POC 205(H) 70 - 199 mg/dL [facility] Blood specimen (specimen) 03/07/2019 3:50 PM CDT 03/07/2019 3:50 PM CDT us Peter Styles Jr., MD LAB POCT ORDERABLES - DEVICE Final Result Performing Organization Address [facility] de Phone Number [facility] [place] [address] * (ABNORMAL) POCT glucose (03/07/2019 11:53 AM CDT) Glucose, POC 278(H) 70 - 199 mg/dL [facility] Blood specimen (specimen) 03/07/2019 11:53 AM CDT 03/07/2019 11:53 AM CDT us Peter Styles Jr., MD LAB POCT ORDERABLES - DEVICE Final Result Performing Organization Address [facility] de Phone Number [facility] [place] [address] * POCT glucose (03/07/2019 8:25 AM CDT) Pathologist [facility] [place] Glucose, POC 145 70 - 199 mg/dL [facility] Blood specimen (specimen) 03/07/2019 8:25 AM CDT 03/07/2019 8:25 AM CDT Peter Styles Jr., MD LAB POCT ORDERABLES - DEVICE Final Result [facility] [place] [address] * Differential, auto (03/07/2019 1:23 AM CDT) [facility] Neutrophil abs 3.5 1.7 - 6.5 K/cumm [facility] Imm gran abs 0.0 0.0 - 0.1 K/cumm [facility] Lymphocyte abs 2.2 0.8 - 3.3 K/cumm [facility] Monocyte abs 0.6 0.2 - 0.8 K/cumm [facility] Eosinophil abs 0.2 0.0 - 0.5 K/cumm [facility] Basophil abs 0.0 0.0 - 0.1 K/cumm [facility] Neutrophil pct 52.5 % [facility] Comment: Interpretive Data Percent cell count reference ranges are not reported, since discordance with absolute values may lead to misinterpretation of CBC data. Current Interpretive Data was last revised on 2017. Imm gran pct 0.6 % [facility] Comment: Interpretive Data Percent cell count reference ranges are not reported, since discordance with absolute values may lead to misinterpretation of CBC data. Current Interpretive Data was last revised on 2017. Lymphocyte pct 33.1 % [facility] Comment: Interpretive Data Percent cell count reference ranges are not reported, since discordance with absolute values may lead to misinterpretation of CBC data. Current Interpretive Data was last revised on 2017. Monocyte pct 9.4 % [facility] Comment: Interpretive Data Percent cell count reference ranges are not reported, since discordance with absolute values may lead to misinterpretation of CBC data. Current Interpretive Data was last revised on 2017. Eosinophil pct 3.8 % [facility] Comment: Interpretive Data Percent cell count reference ranges are not reported, since discordance with absolute values may lead to misinterpretation of CBC data. Current Interpretive Data was last revised on 2017. Basophil pct 0.6 % [facility] Comment: Interpretive Data Percent cell count reference ranges are not reported, since discordance with absolute values may lead to misinterpretation of CBC data. Current Interpretive Data was last revised on 2017. Blood specimen (specimen) 03/07/2019 1:23 AM CDT 03/07/2019 1:38 AM CDT Nita Palacios MD LAB BLOOD ORDERABLES Melina castorena Result [facility] [place] [address] * (ABNORMAL) Basic metabolic panel (03/07/2019 1:23 AM CDT) Sodium 137 135 - 145 mmol/L [facility] Potassium, pl 3.1(L) 3.3 - 4.9 mmol/L [facility] Chloride 101 97 - 110 mmol/L [facility] CO2 25 22 - 32 mmol/L [facility] Anion gap 11 2 - 15 mmol/L [facility] BUN 10 8 - 25 mg/dL [facility] Creatinine 0.75(L) 0.80 - 1.30 mg/dL [facility] Glucose 109 70 - 199 mg/dL [facility] Comment: Interpretive Data Fasting glucose >/= [...] 2017. Calcium 9.6 8.5 - 10.3 mg/dL [facility] Blood specimen (specimen) 03/07/2019 1:23 AM CDT 03/07/2019 1:38 AM CDT us Nita Palacios MD LAB BLOOD ORDERABLES Melina l Result Performing Organization Address [facility] de Phone Number [facility] Department [place] [address] * (ABNORMAL) CBC with auto differential (03/07/2019 1:23 AM CDT) WBC 6.6 3.8 - 9.9 K/cumm [facility] Hgb 15.6 13.0 - 17.5 g/dL [facility] Hct 41.9 38.9 - 50.3 % [facility] Plt 311 150 - 400 K/cumm [facility] MPV 9.9 9.1 - 12.3 fL [facility] RBC 5.28 4.30 - 5.80 M/cumm [facility] MCV 79.4(L) 81.3 - 96.4 fL [facility] MCH 29.5 27.1 - 33.3 pg [facility] MCHC 37.2(H) 32.3 - 35.7 g/dL [facility] RDW CV 12.1 11.1 - 14.9 % [facility] RDW SD 34.5(L) 35.7 - 48.1 fL [facility] NRBC abs 0.00 0.00 - 0.01 K/cumm [facility] Blood specimen (specimen) 03/07/2019 1:23 AM CDT 03/07/2019 1:38 AM CDT us Nita Palacios MD LAB BLOOD ORDERABLES Melina l Result Performing Organization Address [facility] de Phone Number [facility] Department [place] [address] * (ABNORMAL) POCT glucose (03/06/2019 8:39 PM CDT) Glucose, POC 232(H) 70 - 199 mg/dL [facility] Glucose comment 1 RN Notified [facility] Blood specimen (specimen) 03/06/2019 8:39 PM CDT 03/06/2019 8:39 PM CDT us Peter Styles Jr., MD LAB POCT ORDERABLES - DEVICE Final Result Performing Organization Address [facility] [address] * (ABNORMAL) POCT glucose (03/06/2019 4:13 PM CDT) Glucose, POC 286(H) 70 - 199 mg/dL [facility] Glucose comment 1 RN Notified [facility] Blood specimen (specimen) 03/06/2019 4:13 PM CDT 03/06/2019 4:13 PM CDT us Peter Styles Jr., MD LAB POCT ORDERABLES - DEVICE Final Result Performing Organization Address [facility] de Phone Number [facility] [place] [address] * (ABNORMAL) POCT glucose (03/06/2019 12:46 PM CDT) Glucose, POC 241(H) 70 - 199 mg/dL [facility] Blood specimen (specimen) 03/06/2019 12:46 PM CDT 03/06/2019 12:46 PM CDT us Peter Styles Jr., MD LAB POCT ORDERABLES - DEVICE Final Result Performing Organization Address [facility]/ZIP Co de Phone Number [facility] Department [place] [address] * (ABNORMAL) POCT glucose (03/06/2019 8:09 AM CDT) Glucose, POC 277(H) 70 - 199 mg/dL [facility] Blood specimen (specimen) 03/06/2019 8:09 AM CDT 03/06/2019 8:09 AM CDT us Peter Styles Jr., MD LAB POCT ORDERABLES - DEVICE Final Result Performing Organization Address [facility]/[place] [address] * (ABNORMAL) POCT glucose (03/06/2019 2:50 AM CDT) Glucose, POC 287(H) 70 - 199 mg/dL [facility] Blood specimen (specimen) 03/06/2019 2:50 AM CDT 03/06/2019 2:50 AM CDT us Peter Styles Jr., MD LAB POCT ORDERABLES - DEVICE Final Result Performing Organization Address [facility] [address] * (ABNORMAL) POCT glucose (03/06/2019 12:48 AM CDT) Glucose, POC 281(H) 70 - 199 mg/dL [facility] Blood specimen (specimen) 03/06/2019 12:48 AM CDT 03/06/2019 12:48 AM CDT us Peter Styles Jr., MD LAB POCT ORDERABLES - DEVICE Final Result Performing Organization Address [facility]/ZIP Co de Phone Number [facility] [place] [address] * Differential, auto (03/05/2019 11:51 PM CDT) [...] [facility] Neutrophil pct 52.7 % [facility] Comment: Interpretive Data Percent cell count reference ranges are not reported, since discordance with absolute values may lead to misinterpretation of CBC data. Current Interpretive Data was last revised on 2017. Imm gran pct 0.6 % [facility] Comment: Interpretive Data Percent cell count reference ranges are not reported, since discordance with absolute values may lead to misinterpretation of CBC data. Current Interpretive Data was last revised on 2017. Lymphocyte pct 35.6 % [facility] Comment: Interpretive Data Percent cell count reference ranges are not reported, since discordance with absolute values may lead to misinterpretation of CBC data. Current Interpretive Data was last revised on 2017. Monocyte pct 6.8 % [facility] Comment: Interpretive Data Percent cell count reference ranges are not reported, since discordance with absolute values may lead to misinterpretation of CBC data. Current Interpretive Data was last revised on 2017. Eosinophil pct 3.7 % [facility] Comment: Interpretive Data Percent cell count reference ranges are not reported, since discordance with absolute values may lead to misinterpretation of CBC data. Current Interpretive Data was last revised on 2017. Basophil pct 0.6 % [facility] Comment: Interpretive Data Percent cell count reference ranges are not reported, since discordance with absolute values may lead to misinterpretation of CBC data. Current Interpretive Data was last revised on 2017. Blood specimen (specimen) 03/05/2019 11:51 PM CDT 03/06/2019 12:10 AM CDT us Nita Palacios MD LAB BLOOD ORDERABLES Melina castorena Result [facility] [place] [address] * (ABNORMAL) Basic metabolic panel (03/05/2019 11:51 PM CDT) Sodium 132(L) 135 - 145 mmol/L [facility] Potassium, pl 3.7 3.3 - 4.9 mmol/L [facility] Comment:Hemolyzed; (++); pot assium value may be falsely elevated by as much as 0.3 - 0.5 mmol/L. Suggest redraw and reanalysis. Chloride 100 97 - 110 mmol/L [facility] CO2 21(L) 22 - 32 mmol/L [facility] Anion gap 11 2 - 15 mmol/L [facility] BUN 12 8 - 25 mg/dL [facility] Creatinine 0.71(L) 0.80 - 1.30 mg/dL [facility] Glucose 289(H) 70 - 199 mg/dL [facility] Comment: Interpretive Data Fasting glucose >/= [...] Calcium 9.5 8.5 - 10.3 mg/dL [facility] Blood specimen (specimen) 03/05/2019 11:51 PM CDT 03/06/2019 12:10 AM CDT us Nita Palacios MD LAB BLOOD ORDERABLES Melina castorena Result Performing Organization Address [facility]/ZIP Co de Phone Number [facility] Department [place] [address] * (ABNORMAL) CBC with auto differential (03/05/2019 11:51 PM CDT) [facility] WBC 5.4 3.8 - 9.9 K/cumm [facility] Hgb 15.6 13.0 - 17.5 g/dL [facility] Hct 42.2 38.9 - 50.3 % [facility] Plt 303 150 - 400 K/cumm [facility] MPV 9.9 9.1 - 12.3 fL [facility] RBC 5.24 4.30 - 5.80 M/cumm [facility] MCV 80.5(L) 81.3 - 96.4 fL [facility] MCH 29.8 27.1 - 33.3 pg [facility] MCHC 37.0(H) 32.3 - 35.7 g/dL [facility] RDW CV 12.1 11.1 - 14.9 % [facility] RDW SD 34.7(L) 35.7 - 48.1 fL [facility] NRBC abs 0.00 0.00 - 0.01 K/cumm [facility] Blood specimen (specimen) 03/05/2019 11:51 PM CDT 03/06/2019 12:10 AM CDT us Nita Palacios MD LAB BLOOD ORDERABLES Melina castorena Result [facility] [place] [address] * (ABNORMAL) POCT glucose (03/05/2019 9:18 PM CDT) [facility] Glucose, POC 356(H) 70 - 199 mg/dL [facility] Glucose comment 1 RN Notified [facility] Blood specimen (specimen) 03/05/2019 9:18 PM CDT 03/05/2019 9:18 PM CDT us Peter Styles Jr., MD LAB POCT ORDERABLES - DEVICE Final Result Performing Organization Address [facility] [place] [address] * (ABNORMAL) POCT glucose (03/05/2019 5:40 PM CDT) Glucose, POC 295(H) 70 - 199 mg/dL [facility] Blood specimen (specimen) 03/05/2019 5:40 PM CDT 03/05/2019 5:40 PM CDT us Peter Styles Jr., MD LAB POCT ORDERABLES - DEVICE Final Result Performing Organization Address [facility] [place] [address] * (ABNORMAL) POCT glucose (03/05/2019 11:56 AM CDT) Glucose, POC 387(H) 70 - 199 mg/dL [facility] Glucose comment 1 RN Notified [facility] Blood specimen (specimen) 03/05/2019 11:56 AM CDT 03/05/2019 11:56 AM CDT us Peter Styles Jr., MD LAB POCT ORDERABLES - DEVICE Final Result Performing Organization Address [facility] [address] * (ABNORMAL) POCT glucose (03/05/2019 7:59 AM CDT) Glucose, POC 293(H) 70 - 199 mg/dL [facility] Blood specimen (specimen) 03/05/2019 7:59 AM CDT 03/05/2019 7:59 AM CDT us Peter Styles Jr., MD LAB POCT ORDERABLES - DEVICE Final Result [facility] [place] [address] * Differential, auto (03/05/2019 5:37 AM CDT) Neutrophil abs 2.6 1.7 - 6.5 K/cumm [facility] Imm gran abs 0.0 0.0 - 0.1 K/cumm [facility] Lymphocyte abs 1.5 0.8 - 3.3 K/cumm [facility] Monocyte abs 0.5 0.2 - 0.8 K/cumm [facility] Eosinophil abs 0.2 0.0 - 0.5 K/cumm [facility] Basophil abs 0.0 0.0 - 0.1 K/cumm [facility] Neutrophil pct 54.5 % [facility] Comment: Interpretive Data Percent cell count reference ranges are not reported, since discordance with absolute values may lead to misinterpretation of CBC data. Current Interpretive Data was last revised on 2017. Imm gran pct 0.8 % [facility] Comment: Interpretive Data Percent cell count reference ranges are not reported, since discordance with absolute values may lead to misinterpretation of CBC data. Current Interpretive Data was last revised on 2017. Lymphocyte pct 30.2 % [facility] Comment: Interpretive Data Percent cell count reference ranges are not reported, since discordance with absolute values may lead to misinterpretation of CBC data. Current Interpretive Data was last revised on 2017. Monocyte pct 10.4 % [facility] Comment: Interpretive Data Percent cell count reference ranges are not reported, since discordance with absolute values may lead to misinterpretation of CBC data. Current Interpretive Data was last revised on 2017. Eosinophil pct 3.5 % [facility] Comment: Interpretive Data Percent cell count reference ranges are not reported, since discordance with absolute values may lead to misinterpretation of CBC data. Current Interpretive Data was last revised on 2017. Basophil pct 0.6 % [facility] Comment: Interpretive Data Percent cell count reference ranges are not reported, since discordance with absolute values may lead to misinterpretation of CBC data. Current Interpretive Data was last revised on 2017. Blood specimen (specimen) 03/05/2019 5:37 AM CDT 03/05/2019 5:48 AM CDT us Nita Palacios MD LAB BLOOD ORDERABLES Melina l Result Performing Organization Address [facility] de Phone Number [facility] Department [place] [address] * (ABNORMAL) Basic metabolic panel (03/05/2019 5:37 AM CDT) Pathologist [facility] Sodium 135 135 - 145 mmol/L [facility] Potassium, pl 3.5 3.3 - 4.9 mmol/L [facility] Chloride 102 97 - 110 mmol/L [facility] CO2 20(L) 22 - 32 mmol/L [facility] Anion gap 13 2 - 15 mmol/L [facility] BUN 10 8 - 25 mg/dL [facility] Creatinine 0.68(L) 0.80 - 1.30 mg/dL [facility] Glucose 275(H) 70 - 199 mg/dL [facility] Comment: Interpretive Data Fasting glucose >/= [...] Calcium 9.3 8.5 - 10.3 mg/dL [facility] Blood specimen (specimen) 03/05/2019 5:37 AM CDT 03/05/2019 5:48 AM CDT us Nita Palacios MD LAB BLOOD ORDERABLES Melina l Result Performing Organization Address [facility] de Phone Number [facility] Department [place] [address] * (ABNORMAL) CBC with auto differential (03/05/2019 5:37 AM CDT) [facility] WBC 4.8 3.8 - 9.9 K/cumm [facility] Hgb 14.7 13.0 - 17.5 g/dL [facility] Hct 40.2 38.9 - 50.3 % [facility] Plt 281 150 - 400 K/cumm [facility] MPV 10.0 9.1 - 12.3 fL [facility] RBC 4.97 4.30 - 5.80 M/cumm [facility] MCV 80.9(L) 81.3 - 96.4 fL [facility] MCH 29.6 27.1 - 33.3 pg [facility] MCHC 36.6(H) 32.3 - 35.7 g/dL [facility] RDW CV 12.5 11.1 - 14.9 % [facility] RDW SD 36.0 35.7 - 48.1 fL [facility] NRBC abs 0.00 0.00 - 0.01 K/cumm [facility] Blood specimen (specimen) 03/05/2019 5:37 AM CDT 03/05/2019 5:48 AM CDT us Nita Palacios MD LAB BLOOD ORDERABLES Melina l Result Performing Organization Address [facility] de Phone Number [facility] Department [place] [address] * (ABNORMAL) POCT glucose (03/04/2019 10:35 PM CDT) [facility] Glucose, POC 248(H) 70 - 199 mg/dL [facility] Blood specimen (specimen) 03/04/2019 10:35 PM CDT 03/04/2019 10:35 PM CDT us Peter Styles Jr., MD LAB POCT ORDERABLES - DEVICE Final Result Performing Organization Address [facility] [address] * (ABNORMAL) POCT glucose (03/04/2019 6:30 PM CDT) Glucose, POC 251(H) 70 - 199 mg/dL [facility] Glucose comment 1 RN Notified [facility] Blood specimen (specimen) 03/04/2019 6:30 PM CDT 03/04/2019 6:30 PM CDT us Peter Styles Jr., MD LAB POCT ORDERABLES - DEVICE Final Result Performing Organization Address [facility] de Phone Number [facility] [place], [place] [id number] * (ABNORMAL) POCT glucose (03/04/2019 5:33 PM CDT) Glucose, POC 277(H) 70 - 199 mg/dL [facility] Glucose comment 1 RN Notified [facility] Blood specimen (specimen) 03/04/2019 5:33 PM CDT 03/04/2019 5:33 PM CDT us Peter Styles Jr., MD LAB POCT ORDERABLES - DEVICE Final Result Performing Organization Address [facility] de Phone Number [facility] [place], [place] [id number] * (ABNORMAL) POCT glucose (03/04/2019 4:04 PM CDT) Glucose, POC 261(H) 70 - 199 mg/dL [facility] Blood specimen (specimen) 03/04/2019 4:04 PM CDT 03/04/2019 4:04 PM CDT us Peter Styles Jr., MD LAB POCT ORDERABLES - DEVICE Final Result Performing Organization Address [facility] de Phone Number [facility] [place] [address] * (ABNORMAL) POCT glucose (03/04/2019 2:07 PM CDT) Glucose, POC 260(H) 70 - 199 mg/dL [facility] Blood specimen (specimen) 03/04/2019 2:07 PM CDT 03/04/2019 2:07 PM CDT us Peter Styles Jr., MD LAB POCT ORDERABLES - DEVICE Final Result Performing Organization Address [facility] de Phone Number [facility] [place] [address] * (ABNORMAL) POCT glucose (03/04/2019 1:00 PM CDT) Glucose, POC 265(H) 70 - 199 mg/dL [facility] Blood specimen (specimen) 03/04/2019 1:00 PM CDT 03/04/2019 1:00 PM CDT us Peter Styles Jr., MD LAB POCT ORDERABLES - DEVICE Final Result Performing Organization Address [facility] de Phone Number [facility] [place] [address] * (ABNORMAL) POCT glucose (03/04/2019 12:03 PM CDT) Glucose, POC 302(H) 70 - 199 mg/dL [facility] Glucose comment 1 RN Notified [facility] Blood specimen (specimen) 03/04/2019 12:03 PM CDT 03/04/2019 12:03 PM CDT us Peter Styles Jr., MD LAB POCT ORDERABLES - DEVICE Final Result Performing Organization Address [facility] de Phone Number [facility] [place] [address] * (ABNORMAL) Albumin Creatinine Ratio, Urine (03/04/2019 11:52 AM CDT) Albumin Ur 31.1 mg/L [facility] Comment: Interpretive Data No reference range established. Current interpretive data was last revised 2018. Creatinine Ur 52.5 mg/dL [facility] Comment: Interpretive Data No reference range established. Current interpretive data was last revised 2018. Albumin Creatinine Ratio, Ur 59(H) 1 - 29 mg/g [facility] Urine 03/04/2019 11:5 2 AM CDT 03/04/2019 12:10 PM CDT Narrative [facility] - 03/04/2019 1:06 PM CDT THE [facility] COLLECTION LOCATION IS [facility] OBS- us Nita Palacios MD LAB URINE ORDERABLES Melina l Result Performing Organization Address [facility] de Phone Number [facility] [place] [address] * (ABNORMAL) POCT glucose (03/04/2019 10:00 AM CDT) [facility] Signature Glucose, POC 324(H) 70 - 199 mg/dL [facility] Blood specimen (specimen) 03/04/2019 10:00 AM CDT 03/04/2019 10:00 AM CDT us Peter Styles Jr., MD LAB POCT ORDERABLES - DEVICE Final Result Performing Organization Address [facility] de Phone Number [facility] [place] [address] * (ABNORMAL) POCT glucose (03/04/2019 7:49 AM CDT) Glucose, POC 342(H) 70 - 199 mg/dL [facility] Glucose comment 1 RN Notified [facility] Blood specimen (specimen) 03/04/2019 7:49 AM CDT 03/04/2019 7:49 AM CDT Peter Styles Jr., MD LAB POCT ORDERABLES - DEVICE Final Result Performing Organization Address [facility] de Phone Number [facility] Department [place] [address] * Cholesterol, LDL, direct (03/04/2019 6:48 AM CDT) [facility] LDL Cholesterol, Direct 39 <=129 mg/dL [facility] Comment: Interpretive Data Ages < or [...] AM CDT 03/04/2019 6:56 AM CDT Narrative [facility] - 03/04/2019 8:59 AM CDT Cholesterol, LDL, direct reflexed based on Elevated Triglyceride (>400) us Nita Palacios MD LAB BLOOD ORDERABLES Melina l Result Performing Organization Address [facility] de Phone Number [facility] Department [place] [address] * Glutamic acid decarboxylase (03/04/2019 6:48 AM CDT) GAD65 ab ser 0.00 <=0.02 nmol/L [facility] Comment: ADDITIONAL INFORMATION This test was developed and its performance characteristics determined by [facility] in a manner consistent with CLIA requirements. This test has not been cleared or approved by the U.S. Food and Drug Administration. Test Performed by: [place] [address] Human Services Worker: Josiah Turk M.D. Ph.D.; CLIA# [id number] Blood specimen (specimen) 03/04/2019 6:48 AM CDT 03/04/2019 8:02 AM CDT Nita Palacios MD LAB BLOOD ORDERABLES Melina castorena Result [facility] [place] [address] * (ABNORMAL) Lipid panel (03/04/2019 6:48 AM [...] on 2017. Triglycerides 1,274(H) <=149 mg/dL [facility] Comment: Interpretive Data Ages < or [...] revised on 2017. HDL 17(L) >=40 mg/dL [facility] Comment: Interpretive Data Ages < or [...] 2017. LDL, calculated See Comment <=129 [facility] Comment: Unable to calculate exact result. [...] revised on 2017. Non-HDL Cholesterol 189 mg/dL [facility] Comment: Interpretive Data Ages < or [...] last revised on 2017. Chol/HDL ratio 12 [facility] Blood specimen (specimen) 03/04/2019 6:48 AM CDT 03/04/2019 6:56 AM CDT us Nita Palacios MD LAB BLOOD ORDERABLES Melina castorena Result [facility] Department [place] [address] * Phosphorus (03/04/2019 6:48 AM CDT) Pathologist [facility] Phosphorus, pl 2.6 2.3 - 4.5 mg/dL [facility] Blood specimen (specimen) 03/04/2019 6:48 AM CDT 03/04/2019 6:56 AM CDT Nita Palacios MD LAB BLOOD ORDERABLES Melina l Result Performing Organization Address [facility] Co de Phone Number [facility] [place] [address] * Magnesium (03/04/2019 6:48 AM CDT) [facility] Magnesium 1.8 1.4 - 2.5 mg/dL [facility] Blood specimen (specimen) 03/04/2019 6:48 AM CDT 03/04/2019 6:56 AM CDT Nita Palacios MD LAB BLOOD ORDERABLES Melina l Result Performing Organization Address [facility] de Phone Number [facility] Department [place] [address] * (ABNORMAL) Comprehensive metabolic panel (03/04/2019 6:48 AM CDT) [facility] Sodium 134(L) 135 - 145 mmol/L [facility] Potassium, pl 3.9 3.3 - 4.9 mmol/L [facility] Chloride 104 97 - 110 mmol/L [facility] CO2 20(L) 22 - 32 mmol/L [facility] Anion gap 10 2 - 15 mmol/L [facility] BUN 10 8 - 25 mg/dL [facility] Creatinine 0.70(L) 0.80 - 1.30 mg/dL [facility] Glucose 319(H) 70 - 199 mg/dL [facility] Comment: Interpretive Data Fasting glucose >/= [...] 2017. Calcium 8.8 8.5 - 10.3 mg/dL [facility] Bilirubin, total 0.4 0.1 - 1.2 mg/dL [facility] Protein, pl 7.1 6.5 - 8.5 g/dL [facility] Albumin 4.1 3.5 - 5.0 g/dL [facility] Alk phos 90 40 - 130 Units/L [facility] ALT 85(H) 7 - 55 Units/L [facility] AST 53(H) 10 - 50 Units/L [facility] Blood specimen (specimen) 03/04/2019 6:48 AM CDT 03/04/2019 6:56 AM CDT us Nita Palacios MD LAB BLOOD ORDERABLES Melina l Result Performing Organization Address City/[facility]/ZIP Co de Phone Number [facility] [place] [address] * (ABNORMAL) POCT glucose (03/04/2019 12:36 AM CDT) Glucose, POC 347(H) 70 - 199 mg/dL [facility] Blood specimen (specimen) 03/04/2019 12:36 AM CDT 03/04/2019 12:36 AM CDT us Peter Styles Jr., MD LAB POCT ORDERABLES - DEVICE Final Result Performing Organization Address City/[facility]/ZIP Co de Phone Number [facility] [place] [address] * (ABNORMAL) POCT glucose (03/03/2019 11:18 PM CDT) Glucose, POC 412(H) 70 - 199 mg/dL [facility] Blood specimen (specimen) 03/03/2019 11:18 PM CDT 03/03/2019 11:18 PM CDT us Peter Styles Jr., MD LAB POCT ORDERABLES - DEVICE Final Result Performing Organization Address City/[facility] Co de Phone Number [facility] [place] [address] * (ABNORMAL) POCT glucose (03/03/2019 10:09 PM CDT) [facility] Glucose, POC 365(H) 70 - 199 mg/dL [facility] Blood specimen (specimen) 03/03/2019 10:09 PM CDT 03/03/2019 10:09 PM CDT us Peter Styles Jr., MD LAB POCT ORDERABLES - DEVICE Final Result Performing Organization Address [facility] de Phone Number [facility] Department [place] [address] * (ABNORMAL) Basic metabolic panel (03/03/2019 10:07 PM CDT) [facility] Sodium 132(L) 135 - 145 mmol/L [facility] Potassium, pl 4.1 3.3 - 4.9 mmol/L [facility] Comment:Hemolyzed; (+++); po tassium value may be falsely elevated by as much as 0.6 - 1.0 mmol/L. Suggest redraw and reanalysis. Chloride 100 97 - 110 mmol/L [facility] CO2 20(L) 22 - 32 mmol/L [facility] Anion gap 12 2 - 15 mmol/L [facility] BUN 11 8 - 25 mg/dL [facility] Creatinine 0.72(L) 0.80 - 1.30 mg/dL [facility] Glucose 355(H) 70 - 199 mg/dL [facility] Comment: Interpretive Data Fasting glucose >/= [...] 2017. Calcium 8.8 8.5 - 10.3 mg/dL [facility] Blood specimen (specimen) 03/03/2019 10:07 PM CDT 03/03/2019 10:21 PM CDT Narrative [facility] - 03/03/2019 10:46 PM CDT THE COLLECTION LOCATION IS [facility] OBS-01 Noah Burgess MD LAB BLOOD ORDERABLES Melina l Result Performing Organization Address City/[facility]/ZIP Co de Phone Number [facility] [place] [address] * Potassium, whole blood (03/03/2019 7:35 PM CDT) Potassium, bld 3.9 3.3 - 4.9 mmol/L [facility] Blood specimen (specimen) 03/03/2019 7:35 PM CDT 03/03/2019 7:41 PM CDT Narrative [facility] - 03/03/2019 7:50 PM CDT THE COLLECTION LOCATION IS [facility] OBS-01 us Bonita Moreno NP LAB BLOOD ORDERABLES Final Result Performing Organization Address City/[facility]/ZIP Co de Phone Number [facility] [place], [place] [id number] * (ABNORMAL) POCT glucose (03/03/2019 7:22 PM CDT) Glucose, POC 267(H) 70 - 199 mg/dL [facility] Blood specimen (specimen) 03/03/2019 7:22 PM CDT 03/03/2019 7:22 PM CDT us Peter Styles Jr., MD LAB POCT ORDERABLES - DEVICE Final Result Performing Organization Address [facility] de Phone Number [facility] [place] [address] * (ABNORMAL) POCT glucose (03/03/2019 5:35 PM CDT) [facility] Glucose, POC 280(H) 70 - 199 mg/dL [facility] Blood specimen (specimen) 03/03/2019 5:35 PM CDT 03/03/2019 5:35 PM CDT us Peter Styles Jr., MD LAB POCT ORDERABLES - DEVICE Final Result Performing Organization Address [facility] Phone Number [facility] [place] [address] * (ABNORMAL) POCT glucose (03/03/2019 3:54 PM CDT) [facility] Glucose, POC 297(H) 70 - 199 mg/dL [facility] Blood specimen (specimen) 03/03/2019 3:54 PM CDT 03/03/2019 3:54 PM CDT us Peter Styles Jr., MD LAB POCT ORDERABLES - DEVICE Final Result Performing Organization Address [facility] [place] [address] * (ABNORMAL) Basic metabolic panel (03/03/2019 2:15 PM CDT) [facility] Sodium 132(L) 135 - 145 mmol/L [facility] Comment:Lipemic Potassium, pl 4.1 3.3 - 4.9 mmol/L [facility] Comment: Hemolyzed; (+++); potassium value may be falsely elevated by as much as 0.6 - 1.0 mmol/L. Suggest redraw and reanalysis. Lipemic Chloride 99 97 - 110 mmol/L [facility] Comment:Lipemic CO2 19(L) 22 - 32 mmol/L [facility] Comment:Lipemic Anion gap 14 2 - 15 mmol/L [facility] Comment:Lipemic BUN 12 8 - 25 mg/dL [facility] Comment:Lipemic Creatinine 0.78(L) 0.80 - 1.30 mg/dL [facility] Comment:Lipemic Glucose 277(H) 70 - 199 mg/dL [facility] Comment: Lipemic Interpretive Data Fasting glucose [...] 2017. Calcium 8.8 8.5 - 10.3 mg/dL [facility] Comment:Lipemic Blood specimen (specimen) 03/03/2019 2:15 PM CDT 03/03/2019 3:29 PM CDT Narrative [facility] - 03/03/2019 3:56 PM CDT THE COLLECTION LOCATION IS [facility] OBS-01 Bonita Moreno FACTORY MANAGER LAB BLOOD ORDERABLES Final Result [facility] Department of Laboratories [place], [place] [id number] * (ABNORMAL) POCT glucose (03/03/2019 12:28 PM CDT) Pathologist [facility] Glucose, POC 240(H) 70 - 199 mg/dL [facility] Blood specimen (specimen) 03/03/2019 12:28 PM CDT 03/03/2019 12:28 PM CDT us Peter Styles Jr., MD LAB POCT ORDERABLES - DEVICE Final Result Performing Organization Address [facility] de Phone Number [facility] [place] [address] * (ABNORMAL) POCT glucose (03/03/2019 10:56 AM CDT) Glucose, POC 205(H) 70 - 199 mg/dL [facility] Blood specimen (specimen) 03/03/2019 10:56 AM CDT 03/03/2019 10:56 AM CDT us Peter Styles Jr., MD LAB POCT ORDERABLES - DEVICE Final Result Performing Organization Address [facility] Phone Number [facility] [place] [address] * POCT glucose (03/03/2019 9:35 AM CDT) Glucose, POC 193 70 - 199 mg/dL [facility] Blood specimen (specimen) 03/03/2019 9:35 AM CDT 03/03/2019 9:35 AM CDT Peter Styles Jr., MD LAB POCT ORDERABLES - DEVICE Final Result Performing Organization Address [facility] de Phone Number [facility] [place] [address] * (ABNORMAL) Basic metabolic panel (03/03/2019 7:45 AM CDT) Sodium 136 135 - 145 mmol/L [facility] Potassium, pl 4.0 3.3 - 4.9 mmol/L [facility] Comment:Hemolyzed; (+++); po tassium value may be falsely elevated by as much as 0.6 - 1.0 mmol/L. Suggest redraw and reanalysis. Chloride 103 97 - 110 mmol/L [facility] CO2 22 22 - 32 mmol/L [facility] Anion gap 12 2 - 15 mmol/L [facility] BUN 14 8 - 25 mg/dL [facility] Creatinine 0.74(L) 0.80 - 1.30 mg/dL [facility] Glucose 156 70 - 199 mg/dL [facility] Comment: Interpretive Data Fasting glucose >/= [...] 2017. Calcium 8.9 8.5 - 10.3 mg/dL [facility] Blood specimen (specimen) 03/03/2019 7:45 AM CDT 03/03/2019 8:01 AM CDT Narrative [facility] - 03/03/2019 8:36 AM CDT THE COLLECTION LOCATION IS [facility] OBS-01 us Hi Dan MD LAB BLOOD ORDERABLE S Final Result [facility] [place] [address] * (ABNORMAL) POCT ketone, fingerstick (03/03/2019 7:38 AM CDT) Ketones, Blood, POC 0.8(A) 0.1 - 0.5 mmol/L Blood specimen (specimen) 03/03/2019 7:38 AM CDT us Bonita Moreno NP POINT OF CARE TEST ORDERABL ES Final Result * POCT glucose (03/03/2019 7:32 AM CDT) Glucose, POC 160 70 - 199 mg/dL [facility] Blood specimen (specimen) 03/03/2019 7:32 AM CDT 03/03/2019 7:32 AM CDT us Nita Palacios MD LAB POCT ORDERABLES - DEV ICE Final Result Performing Organization Address City/[facility]/ZIP Co de Phone Number [facility] Department [place] [address] * (ABNORMAL) Potassium, whole blood (03/03/2019 6:34 AM CDT) [facility] Potassium, bld 3.2(L) 3.3 - 4.9 mmol/L [facility] Blood specimen (specimen) 03/03/2019 6:34 AM CDT 03/03/2019 6:41 AM CDT Narrative [facility] - 03/03/2019 6:47 AM CDT THE BJ COLLECTION LOCATION IS [facility] OBS-01 us Bonita Moreno FACTORY MANAGER LAB BLOOD ORDERABLES Final Result Performing Organization Address [facility] Co de Phone Number [facility] Department [place] [address] * POCT glucose (03/03/2019 6:30 AM CDT) [facility] Signature Glucose, POC 152 70 - 199 mg/dL [facility] Blood specimen (specimen) 03/03/2019 6:30 AM CDT 03/03/2019 6:30 AM CDT us Charles Bey MD LAB POCT ORDERABLES - DEV ICE Final Result Performing Organization Address City/[facility] Co de Phone Number [facility] Department [place] [address] * POCT glucose (03/03/2019 5:33 AM CDT) Glucose, POC 162 70 - 199 mg/dL [facility] Blood specimen (specimen) 03/03/2019 5:33 AM CDT 03/03/2019 5:33 AM CDT Charles Bey MD LAB POCT ORDERABLES - DEV ICE Final Result Performing Organization Address City/[facility]/ZIP Co de Phone Number [facility] [place] [address] * (ABNORMAL) POCT glucose (03/03/2019 4:30 AM CDT) [facility] Glucose, POC 203(H) 70 - 199 mg/dL [facility] Blood specimen (specimen) 03/03/2019 4:30 AM CDT 03/03/2019 4:30 AM CDT Result [facility] Mari Rick MD LAB POCT ORDERABLES - ARJUN CE Final Result Performing Organization Address City/[facility] Co de Phone Number [facility] [place] [address] * Influenza A/B and RSV PCR Nasopharyngeal (03/03/2019 3:13 AM CDT) [facility] Influenza A RNA Not Detected Not Detected [facility] Influenza B RNA Not Detected Not Detected [facility] RSV RNA Not Detected Not Detected [facility] Comment: Interpretive Data Testing performed by [facility] ([phone]). This test is performed using the [employer] Xpert Flu/RSV Assay. ??This is a multiplex, real-time reverse transcriptase PCR assay that detects influenza A, influenza B,and respiratory syncytial virus RNA. ??This assay has been cleared by the [place] Food and Drug Administration, and its performance characteristics have been verified by the [facility]. Interpretive Data last revised 2018 Nasopharyngeal 03/03/2019 3: 13 AM CDT 03/03/2019 3:50 AM CDT Narrative [facility] - 03/03/2019 4:23 AM CDT THE COLLECTION LOCATION IS [facility] OBS-01 Hi Dan MD LAB MICROBIOLOGY - GENERAL ORDERABLES Final Result [facility] [place] [address] * (ABNORMAL) Basic metabolic panel (03/03/2019 3:13 AM CDT) Sodium 133(L) 135 - 145 mmol/L [facility] Potassium, pl 3.5 3.3 - 4.9 mmol/L [facility] Comment:Hemolyzed; (+++); po tassium value may be falsely elevated by as much as 0.6 - 1.0 mmol/L. Suggest redraw and reanalysis. Chloride 98 97 - 110 mmol/L [facility] CO2 23 22 - 32 mmol/L [facility] Anion gap 12 2 - 15 mmol/L [facility] BUN 15 8 - 25 mg/dL [facility] Creatinine 0.87 0.80 - 1.30 mg/dL [facility] Glucose 218(H) 70 - 199 mg/dL [facility] Comment: Interpretive Data Fasting glucose >/= [...] 2017. Calcium 8.7 8.5 - 10.3 mg/dL [facility] Blood specimen (specimen) 03/03/2019 3:13 AM CDT 03/03/2019 3:38 AM CDT Narrative [facility] - 03/03/2019 4:10 AM CDT THE BJ COLLECTION LOCATION IS [facility] OBS-01 us Hi Dan MD LAB BLOOD ORDERABLE S Final Result Performing Organization Address [facility] Co de Phone Number [facility] [place] [address] * (ABNORMAL) POCT glucose (03/03/2019 3:02 AM CDT) Glucose, POC 233(H) 70 - 199 mg/dL [facility] Blood specimen (specimen) 03/03/2019 3:02 AM CDT 03/03/2019 3:02 AM CDT Mari Rick MD LAB POCT ORDERABLES - ARJUN CE Final Result Performing Organization Address [facility]/[place] [address] * (ABNORMAL) POCT glucose (03/03/2019 2:05 AM CDT) Glucose, POC 277(H) 70 - 199 mg/dL [facility] Blood specimen (specimen) 03/03/2019 2:05 AM CDT 03/03/2019 2:05 AM CDT us Mari Rick MD LAB POCT ORDERABLES - ARJUN CE Final Result Performing Organization Address [facility] Co de Phone Number [facility] [place] [address] * (ABNORMAL) POCT glucose (03/03/2019 1:01 AM CDT) Glucose, POC 276(H) 70 - 199 mg/dL [facility] Blood specimen (specimen) 03/03/2019 1:01 AM CDT 03/03/2019 1:01 AM CDT Kenroy Farr MD LAB POCT ORDERABLES - ARJUN CE Final Result Performing Organization Address [facility] Co de Phone Number [facility] Department [place] [address] * (ABNORMAL) POCT glucose (03/03/2019 12:02 AM CDT) [facility] Glucose, POC 351(H) 70 - 199 mg/dL [facility] Glucose comment 1 Doctor Notified [facility] Blood specimen (specimen) 03/03/2019 12:02 AM CDT 03/03/2019 12:02 AM CDT Kenroy Farr MD LAB POCT ORDERABLES - ARJUN CE Final Result Performing Organization Address [facility] Co de Phone Number [facility] Department [place] [address] * (ABNORMAL) Basic metabolic panel (03/02/2019 11:15 PM CDT) [facility] Sodium 131(L) 135 - 145 mmol/L [facility] Potassium, pl 3.6 3.3 - 4.9 mmol/L [facility] Comment:Hemolyzed; (+++); po tassium value may be falsely elevated by as much as 0.6 - 1.0 mmol/L. Suggest redraw and reanalysis. Chloride 96(L) 97 - 110 mmol/L [facility] CO2 13(L) 22 - 32 mmol/L [facility] Anion gap 22(H) 2 - 15 mmol/L [facility] BUN 16 8 - 25 mg/dL [facility] Creatinine 0.86 0.80 - 1.30 mg/dL [facility] Glucose 297(H) 70 - 199 mg/dL [facility] Comment: Interpretive Data Fasting glucose >/= [...] 2017. Calcium 8.7 8.5 - 10.3 mg/dL [facility] Blood specimen (specimen) 03/02/2019 11:15 PM CDT 03/02/2019 11:21 PM CDT Kenroy Farr MD LAB BLOOD ORDERABLES Final Result [facility] [place] [address] * Troponin I (03/02/2019 11:15 PM CDT) Troponin I <0.03 0.00 - 0.03 ng/mL [facility] Comment: Interpretive Data: Normal plasma Troponin [...] for Troponin assay. References: 1. Clin Chem 2013;[id number] 2. Journal of the [place] [employer] 2012;60:[id number] Current Interpretive Data Last Revised Date: 2017. Blood specimen (specimen) 03/02/2019 11:15 PM CDT 03/02/2019 11:21 PM CDT Narrative [facility] - 03/03/2019 1:06 AM CDT THE COLLECTION LOCATION IS [facility] ED2-23 Windy Mitchell MD LAB BLOOD ORD ERABLES Edited Result - Final Performing Organization Address City/[facility]/ZIP Co de Phone Number [facility] [place] [address] * (ABNORMAL) POCT glucose (03/02/2019 11:08 PM CDT) Glucose, POC 320(H) 70 - 199 mg/dL [facility] Blood specimen (specimen) 03/02/2019 11:08 PM CDT 03/02/2019 11:08 PM CDT us Kenroy Farr MD LAB POCT ORDERABLES - ARJUN CE Final Result Performing Organization Address [facility] de Phone Number [facility] [place] [address] * (ABNORMAL) POCT glucose (03/02/2019 10:14 PM CDT) Glucose, POC 378(H) 70 - 199 mg/dL [facility] Blood specimen (specimen) 03/02/2019 10:14 PM CDT 03/02/2019 10:14 PM CDT us Kenroy Farr MD LAB POCT ORDERABLES - ARJUN CE Final Result Performing Organization Address [facility] de Phone Number [facility] [place] [address] * CO CRITICAL CARE ILL/INJURED PATIENT INIT 30-74 MIN, CO CRITICAL CARE ILL/INJURED PATIENT ADDL 30 MIN [...] CDT 03/02/2019 9:59 PM CDT Narrative [facility] - 03/02/2019 10:32 PM CDT THE COLLECTION LOCATION IS [facility] us Windy Mitchell MD LAB BLOOD ORD ERABLES Final Result [facility] [place] [address] * (ABNORMAL) ECG 12-LEAD (03/02/2019 9:37 PM CDT) Narrative [facility] - 03/02/2019 9:37 PM CDT [...] Mitchell MD ECG ORDERABLE S Final Result [facility] * (ABNORMAL) POCT glucose (03/02/2019 9:15 PM CDT) [facility] Signature Glucose, POC 369(H) 70 - 199 mg/[facility] Blood specimen (specimen) 03/02/2019 9:15 PM CDT 03/02/2019 9:15 PM CDT Kenroy Farr MD LAB POCT ORDERABLES - ARJUN CE Final Result [facility] [place] [address] * (ABNORMAL) Urinalysis, microscopic only (03/02/2019 8:03 PM CDT) WBC, ur 0-5 0 - 5 /HPF [facility] RBC, ur 0-2 0 - 2 /HPF [facility] Epithelial cells, squamous, ur 1-5 0 - 5 /HPF [facility] Mucous, ur Present(A) [facility] Urine 03/02/2019 8:03 PM CDT 03/02/2019 8:07 PM CDT Windy Mitchlel MD LAB URINE ORD ERABLES Final Result [facility] [place] [address] * (ABNORMAL) Urinalysis reflex to microscopic (03/02/2019 8:03 PM CDT) Color, ur Straw Yellow [facility] Clarity, ur Clear Clear [facility] Specific gravity, ur 1.030(H) 1.010 - 1.025 [facility] pH, urine 6 [facility] Protein, ur ql 3+(A) Negative [facility] Glucose, ur ql 3+(A) Negative [facility] Ketones, ur 2+(A) Negative [facility] Bilirubin, ur Negative Negative [facility] Blood, ur 1+(A) Negative [facility] Urobilinogen, ur <2.0 <2.0 mg/dL [facility] Nitrite, ur Negative Negative [facility] Leukocyte esterase, ur Negative Negative [facility] Urine 03/02/2019 8:03 PM CDT 03/02/2019 8:07 PM CDT Narrative [facility] - 03/02/2019 8:17 PM CDT THE BJ COLLECTION LOCATION IS [place] [address] Urine pH is affected by diet, medications, systemic acid-base disturbances, and renal tubular function. ??pH may affect urinary stone formation. ??For example, urine pH below 6.0 may help reduce the tendency for calcium phosphate stones and pH greater than 6.0 may reduce the tendency for uric acid stone formation. Source: [facility]. Last revised 05-16-2017 Windy Mitchell MD LAB URINE ORD ERABLES Final Result Performing Organization Address [facility] Co de Phone Number [facility] [place] [address] * (ABNORMAL) POCT glucose (03/02/2019 8:01 PM CDT) Glucose, POC 472(C) 70 - 199 mg/dL [facility] Glucose comment 1 Glu2: [facility] Blood specimen (specimen) 03/02/2019 8:01 PM CDT 03/02/2019 8:01 PM CDT Notinfile Unknown LAB POCT ORDERABLES - DEVICE F inal Result Performing Organization Address [facility] de Phone Number [facility] [place] [address] * (ABNORMAL) Blood gas, venous (03/02/2019 6:56 PM CDT) pH, Venous 7.34 7.32 - 7.43 [facility] PCO2, Venous 33(L) 40 - 50 mmHg [facility] PO2, Venous 108 mmHg [facility] Comment: Interpretive Data No Reference Range Established Current Interpretive Data was last revised on 2017. HCO3 Venous, Calculated 18(L) 20 - 30 mmol/L [facility] BE, venous -7 mmol/L [facility] Comment: Interpretive Data No Reference Range Established Current Interpretive Data was last revised on 2017. Blood specimen (specimen) 03/02/2019 6:56 PM CDT 03/02/2019 7:06 PM CDT Narrative [facility] - 03/02/2019 7:09 PM CDT THE BJ COLLECTION LOCATION IS [facility] [id number] Kenroy Farr MD LAB BLOOD ORDERABLES Final Result [facility] [place] [address] * XR Chest Pa Lateral 2 Vw [...] Glucose, POC 578(C) 70 - 199 mg/dL [facility] Glucose comment 1 Glu2: [facility] Blood specimen (specimen) 03/02/2019 6:28 PM CDT 03/02/2019 6:28 PM CDT Notinfile Unknown LAB POCT ORDERABLES - DEVICE F inal Result Performing Organization Address [facility]/ZIP Co de Phone Number [facility] Department [place] [address] * Potassium, whole blood (03/02/2019 6:25 PM CDT) [facility] Potassium, bld 4.6 3.3 - 4.9 mmol/L [facility] Comment:Hemolyzed; potassium value may be falsely elevated by as much as 1.1 - 1.6 mmol/L. Suggest redraw and reanalysis. Blood specimen (specimen) 03/02/2019 6:25 PM CDT 03/02/2019 6:32 PM CDT Narrative [facility] - 03/02/2019 6:39 PM CDT THE COLLECTION LOCATION IS [facility] ED223 Result [facility] Windy Mitchell MD LAB BLOOD ORD ERABLES Final Result [facility] Department [place] [address] * (ABNORMAL) Hepatic function panel (03/02/2019 6:25 PM CDT) [facility] Bilirubin, total 0.5 0.1 - 1.2 mg/dL [facility] Bilirubin, direct See Comment 0.1 - 0.3 mg/dL [facility] Comment:CRDT; Hemolyzed spec imen Protein, pl 7.9 6.5 - 8.5 g/dL [facility] Albumin 4.2 3.5 - 5.0 g/dL [facility] Alk phos 137(H) 40 - 130 Units/L [facility] Comment:Hemolyzed; result ma y be falsely decreased. ALT See Comment 7 - 55 Units/L [facility] Comment:Credited; Hemolyzed Specimen AST See Comment 10 - 50 Units/L [facility] Comment:Credited, hemolyzed specimen. Blood specimen (specimen) 03/02/2019 6:25 PM CDT 03/02/2019 6:41 PM CDT Narrative [facility] - 03/02/2019 7:56 PM CDT THE COLLECTION LOCATION IS us Edwin Willams MD LAB BLOOD ORDERABLES Final Resul t [facility] Department [place] [address] * (ABNORMAL) ECG 12-LEAD (03/02/2019 5:59 PM CDT) Narrative [facility] - 03/02/2019 5:59 PM CDT [...] ORDERABLES Final Resu lt Performing Organization Address City/[facility]/ZIP Co de Phone Number [facility] * (ABNORMAL) Hemoglobin A1c (03/02/2019 5:57 PM CDT) Hgb A1C 9.3(H) 4.0 - 5.6 % [facility] Estimated Average Glucose 220 mg/dL [facility] Comment: The ADA recommends reporting an estimated Average Glucose (eAG) with all Hemoglobin A1c results using the equation derived from a study of 507 normal and diabetic adults. ??Minority populations were underrepresented and children were not included. ?? (Diabetes Care 31:1808-8051, 2008). ??The eAG is not equivalent to a fasting glucose. Blood specimen (specimen) 03/02/2019 5:57 PM CDT 03/02/2019 6:16 PM CDT us Peter Styles Jr., MD LAB BLOOD ORDERABLES Final Result Performing Organization Address City/[facility]/ZIP Co de Phone Number [facility] Department [place] [address] * Critical Result Callback Chemistry (03/02/2019 5:57 PM CDT) Date Notified [id number] [facility] Time Notified 20:01 TRACIE PAZ TestName glucose TRACIE PAZ Called/Read Back elvira PAZ Credentials MD TRACIE PAZ Called By artie HENDERSON Blood specimen (specimen) 03/02/2019 5:57 PM CDT 03/02/2019 6:12 PM CDT Clau Wallis NP LAB BLOOD ORDERABLES Final Result [facility]IE [facility] [place] [address] * Differential, auto (03/02/2019 5:57 PM CDT) Neutrophil abs 5.2 1.7 - 6.5 K/cumm [facility] Imm gran abs 0.0 0.0 - 0.1 K/cumm [facility] Lymphocyte abs 1.8 0.8 - 3.3 K/cumm [facility] Monocyte abs 0.6 0.2 - 0.8 K/cumm [facility] Eosinophil abs 0.2 0.0 - 0.5 K/cumm [facility] Basophil abs 0.1 0.0 - 0.1 K/cumm [facility] Neutrophil pct 65.3 % [facility] Comment: Interpretive Data Percent cell count reference ranges are not reported, since discordance with absolute values may lead to misinterpretation of CBC data. Current Interpretive Data was last revised on 2017. Imm gran pct 0.6 % [facility] Comment: Interpretive Data Percent cell count reference ranges are not reported, since discordance with absolute values may lead to misinterpretation of CBC data. Current Interpretive Data was last revised on 2017. Lymphocyte pct 22.9 % [facility] Comment: Interpretive Data Percent cell count reference ranges are not reported, since discordance with absolute values may lead to misinterpretation of CBC data. Current Interpretive Data was last revised on 2017. Monocyte pct 7.8 % [facility] Comment: Interpretive Data Percent cell count reference ranges are not reported, since discordance with absolute values may lead to misinterpretation of CBC data. Current Interpretive Data was last revised on 2017. Eosinophil pct 2.7 % [facility] Comment: Interpretive Data Percent cell count reference ranges are not reported, since discordance with absolute values may lead to misinterpretation of CBC data. Current Interpretive Data was last revised on 2017. Basophil pct 0.7 % TR[facility] Comment: Interpretive Data Percent cell count reference ranges are not reported, since discordance with absolute values may lead to misinterpretation of CBC data. Current Interpretive Data was last revised on 2017. Blood specimen (specimen) 03/02/2019 5:57 PM CDT 03/02/2019 6:13 PM CDT Clau Wallis NP LAB BLOOD ORDERABLES Final Result Performing Organization Address City/State/[place] Co de Phone Number [facility] [place] [address] * Troponin I (03/02/2019 5:57 PM CDT) [...] for Troponin assay. References: 1. Clin Chem 2013;59:[id number] 2. Journal of the [place] [employer] Cardiology 2012;60:1581-98 Current Interpretive Data Last Revised Date: 2017. Blood specimen (specimen) 03/02/2019 5:57 PM CDT 03/02/2019 6:12 PM CDT Narrative [facility] - 03/02/2019 7:09 PM CDT THE COLLECTION LOCATION IS Kenroy Farr MD LAB BLOOD ORDERABLES Edite d Result - Final [facility] [place] [address] * (ABNORMAL) Basic metabolic panel (03/02/2019 5:57 PM CDT) Sodium 125(L) 135 - 145 mmol/L [facility] Potassium, pl See Comment 3.3 - 4.9 mmol/L [facility] Comment:CRDT; Grossly Hemoly zed sample; Unable to test. Chloride 87(L) 97 - 110 mmol/L [facility] CO2 15(L) 22 - 32 mmol/L [facility] Anion gap 23(H) 2 - 15 mmol/L [facility] BUN 21 8 - 25 mg/dL [facility] Creatinine 0.94 0.80 - 1.30 mg/dL [facility] Glucose 597(C) 70 - 199 mg/dL [facility] Comment: Interpretive Data Fasting glucose >/= [...] 2017. Calcium 9.8 8.5 - 10.3 mg/dL [facility] Blood specimen (specimen) 03/02/2019 5:57 PM CDT 03/02/2019 6:12 PM CDT Narrative [facility] - 03/02/2019 7:59 PM CDT THE BJ COLLECTION LOCATION IS Kenroy Farr MD LAB BLOOD ORDERABLES Final Result [facility] Department [place] [address] * (ABNORMAL) CBC with auto differential (03/02/2019 5:57 PM CDT) [facility] WBC 8.0 3.8 - 9.9 K/cumm [facility] Hgb 16.2 13.0 - 17.5 g/dL [facility] Comment:Result may be due to compromised sample integrity, request redraw. Hct 42.3 38.9 - 50.3 % [facility] Plt 380 150 - 400 K/cumm [facility] MPV 10.5 9.1 - 12.3 fL [facility] RBC 5.35 4.30 - 5.80 M/cumm [facility] MCV 79.1(L) 81.3 - 96.4 fL [facility] MCH 30.3 27.1 - 33.3 pg [facility] Comment:Result may be due to compromised sample integrity, request redraw. MCHC 38.3(H) 32.3 - 35.7 g/dL [facility] Comment:Result may be due to compromised sample integrity, request redraw. RDW CV 11.9 11.1 - 14.9 % [facility] RDW SD 33.5(L) 35.7 - 48.1 fL [facility] NRBC abs 0.02(H) 0.00 - 0.01 K/cumm [facility] Blood specimen (specimen) (Blood, Venous) 03/02/2019 5:57 PM CDT 03/02/2019 6:13 PM CDT Narrative [facility] - 03/02/2019 7:26 PM CDT THE COLLECTION LOCATION IS us Kenroy Farr MD LAB BLOOD ORDERABLES Final Result [facility] Department [place] [address] * (ABNORMAL) POCT glucose (03/02/2019 5:52 PM CDT) [facility] Glucose, POC 591(C) 70 - 199 mg/dL [facility] Glucose comment 1 Doctor Notified [facility] Blood specimen (specimen) 03/02/2019 5:52 PM CDT 03/02/2019 5:52 PM CDT us Notinfile Unknown LAB POCT ORDERABLES - DEVICE F inal Result [facility] [place] [address] documented in this encounter Visit Diagnoses Diagnosis [...] 03/08/19 at 0900 Given 03/08/2019 8:46 AM STAFFING ACCOUNT MANAGER 20 mg carvedilol (COREG) tablet 25 mg 25 mg, oral, 2 times daily, First dose on Sat03/03/19 at 0115 Given 03/08/2019 8:48 AM STAFFING ACCOUNT MANAGER 25 mg Given 03/07/2019 10:09 PM CDT [...] Call MD for each episode of hypoglycemia. HYDROGENATION OPERATOR STATES GLUTOSE-15 CONTAINS GLUCOSE 40% W/W (50% [...] ProphylaxisIndications:V TE Prophylaxis Given 03/08/2019 8:48 AM STAFFING ACCOUNT MANAGER 40 mg Left Lower Abdomen Given 03/07/2019 10:09 PM CDT 40 mg L eft Upper Arm Given 03/07/2019 8:53 AM CDT 40 mg Ri ght Lower Abdomen hydroCHLOROthiazide (HYDRODIURIL) tablet 12.5 mg 12.5 mg, oral, Daily, First dose on Sat03/04/19 at 0900 Given 03/08/2019 8:48 AM STAFFING ACCOUNT MANAGER 12.5 mg Given 03/07/2019 8:54 AM CDT [...] 03/07/19 at 1645 Given 03/08/2019 8:49 AM STAFFING ACCOUNT MANAGER 10 Units Left Lower Abdomen Given 03/07/2019 [...] Severe Insulin Resistance Given 03/08/2019 8:44 AM STAFFING ACCOUNT MANAGER 80 Units Right Upper Arm Given 03/07/2019 5:31 PM CDT 80 Units Ri ght Upper Arm Given 03/07/2019 12:06 PM CDT 80 Units R ight Upper Arm lisinopril (PRINIVIL,ZESTRIL) tablet 5 mg 5 mg, oral, Daily, First dose on Sat03/04/19 at 1545 Given 03/08/2019 8:46 AM STAFFING ACCOUNT MANAGER 5 mg Given 03/07/2019 8:54 AM CDT 5 mg Given 03/06/2019 9:17 AM CDT 5 mg metFORMIN (GLUCOPHAGE) tablet 500 mg 500 mg, oral, 2 times daily with meals (bkfst, dinner), First dose on Sat03/06/19 at 1800, Take with food Given 03/08/2019 8:48 AM STAFFING ACCOUNT MANAGER 500 mg Given 03/07/2019 5:32 PM CDT [...] otherwise manipulate tablet/capsule. Given 03/08/2019 4:28 AM STAFFING ACCOUNT MANAGER 40 mEq prochlorperazine (COMPAZINE) injection 10 mg [...] type and size. Given 03/08/2019 4:27 AM STAFFING ACCOUNT MANAGER 10 mL Given 03/07/2019 10:10 PM CDT [...] may contain times in both CDT and STAFFING ACCOUNT MANAGER. Scheduled Medication Order 03/06/2019 03/07/2019 03/08/2019 atorvastatin [...] RN)2210 (Given - Provider: Amna Foreman, RN) 5897 (Given - Provider: Amna Foreman, RN) PRN [...] Call MD for each episode of hypoglycemia. HYDROGENATION OPERATOR STATES GLUTOSE-15 CONTAINS GLUCOSE 40% W/W (50% [...] Call MD for each episode of hypoglycemia. HYDROGENATION OPERATOR STATES GLUTOSE-15 CONTAINS GLUCOSE 40% W/W (50% [...] SERVICES 1 03/06/20 19 IP CONSULT TO CREATIVE ARTS MUSIC THERAPIST 1 9 IV Count Last Ordered Date First Orde red Date SALINE LOCK IV 1 03/02/2019 ADT Patient Update Count Last Ordered Date Firs t Ordered Date ED IP DECISION TO ADMIT 1 03/03/[address] IN ED OBSERVATION 1 03/02/2019 documented in this encounter Care Teams Bench Mechanic Relationship Specialty Start Date End Date Etelvina Del Cid MD [address] [address] PCP - General 08/14/16 03/10/19 documented as of this encounter
--- OUTSIDE RECORDS SUMMARY | 2024-05-14 03:28 | XMS_ITS | Encounter Summary ---
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
--- OUTSIDE RECORDS SUMMARY | 2024-05-14 03:28 | XMS_ITS | Encounter Summary ---
Author Organization [facility] Address [address] [place] [address] Phone Care Team Providers Care Registered Nurse Maternity Name Role Phone Etelvina Del Cid MD Primary Care Provider + Encounter Details Date Type Department Care Team (Late st Contact Info) Description 07/31/[address] [facility] Sleep [address] [place] [address] 6th [address] [place] [address] Mey Starks Social History Tobacco Use Types Packs/Day Years Used Date Smoking Tobacco: Never Smokeless Tobacco: Never Alcohol Use Standard Drinks/Week Comments No 0 (1 standard drink = 0.6 oz pur e alcohol) Sex and Gender Information Value Date Recorded Sex Assigned at Not on file Legal Sex Male 5:01 AM STEAM FITTER SUPERVISOR Gender Identity Male 12/18/2017 12:38 PM [...] filedocumented in this encounter Care Teams Registered Nurse Maternity Relationship Specialty Start Date End Date Etelvina Del Cid MD [address] [place] [address] PCP - General 08/14/16 03/10/19 documented as of this encounter
--- OUTSIDE RECORDS SUMMARY | 2024-05-14 03:28 | XMS_ITS | Encounter Summary ---
Author Organization [facility] Address [address] [place] [address] Phone Care Team Providers Care Hvac/R Service Technician Name Role Phone Jann Burrows MD Primary Care Provider [phone] Encounter Details Date Type Department Care Team (Late st Contact Info) Description 03/20/2019 Telephone [facility] Endocrinology Metabolism and Lipid [address] [facility] 5th [place] [address] [place] [address] Che Duff LPN Social History Tobacco Use Types Packs/Day Years Used Date Smoking Tobacco: Never Smokeless Tobacco: Never Alcohol Use Standard Drinks/Week Comments Yes 24 (1 standard drink = 0.6 oz pu re alcohol) CAGE negative. Case per week. 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 He should take 80 units U500 three times daily. AVEMENT PROGRAM COORDINATOR * Telephone Encounter - Che Duff LPN - 03/20/2019 2:25 PM CST Can you clarify the instruction for the U500? Your note says 90 units TID, but the script say 80 units on the U100. AVEMENT PROGRAM COORDINATOR documented in this encounter Plan of Treatment Not on file documented as of this encounter Visit Diagnoses Not on filedocumented in this encounter Care Teams Hvac/R Service Technician Relationship Specialty Start Date End Date Jann Burrows MD [address] [facility] [address] [place] [address] PCP - General Hematology 03/13/19 10/28/21 documented as of this encounter
--- OUTSIDE RECORDS SUMMARY | 2024-05-14 03:28 | XMS_ITS | Encounter Summary ---
Author Organization [facility] Address [address] [place] [address] Phone Care Team Providers Care Museum Educator Name Role Phone Etelvina Del Cid MD Primary Care Provider + No, Physician Primary Care Provider Jann Burrows MD Primary Care Provider [phone] Encounter Details Date Type Department Care Team (Late st Contact Info) Description 03/04/2019 Telephone [facility] [address] [facility] Advanced Medicine 8th [place] [address] [place] [address] Jef Walton MD [address] [facility] [address] [place], [place] [id number] Social History Tobacco Use Types Packs/Day Years Used Date Smoking Tobacco: Never Smokeless Tobacco: Never Alcohol Use Standard Drinks/Week Comments Yes 24 (1 standard drink = 0.6 oz pu re alcohol) CAGE negative. Case per week. Sex and Gender Information Value Date Recorded Sex Assigned at Not on file Legal Sex Male 5:01 AM STRETCHER AND DRIER Gender Identity Male 12/18/2017 12:38 PM CDT [...] on filedocumented in this encounter Care Teams Museum Educator Relationship Specialty Start Date End Date Etelvina Del Cid MD [address] [address] PCP - General 08/14/16 03/10/19 No, Physician PCP - General 03/11/19 03/12/19 Jann Burrows MD [address] [facility] [address] [place] [address] PCP - General Hematology 03/13/19 10/28/21 documented as of this encounter
--- OUTSIDE RECORDS SUMMARY | 2024-05-14 03:28 | XMS_ITS | Encounter Summary ---
Author Organization [facility] Address [address] [place] [address] Phone Care Team Providers Care Case Picker Name Role Phone Etelvina Del Cid MD Primary Care Provider + No, Physician Primary Care Provider [phone] Jann Burrows MD Primary Care Provider [phone] Encounter Details Date Type Department Care Team (Late st Contact Info) Description 03/02/2019 Telephone [facility] Cardiology [address] [facility] Advanced Medicine 8th [place] [address] [place] [address] Jef Walton MD [address] [facility] [address] [place], [place] [id number] Social History Tobacco Use Types Packs/Day Years Used Date Smoking Tobacco: Never Smokeless Tobacco: Never Alcohol Use Standard Drinks/Week Comments No 0 (1 standard drink = 0.6 oz pur e alcohol) Sex and Gender Information Value Date Recorded Sex Assigned at Not on file Legal Sex Male 5:01 AM PEDIATRIC MEDICAL ASSISTANT Gender Identity Male 12/18/2017 12:38 PM [...] on filedocumented in this encounter Care Teams Case Picker Relationship Specialty Start Date End Date Etelvina Del Cid MD [address] [place] [address] [address] PCP - General 08/14/16 03/10/19 No, Physician PCP - General 03/11/19 03/12/19 Jann Burrows MD [address] [place] [address] PCP - General Hematology 03/13/19 10/28/21 documented as of this encounter
--- OUTSIDE RECORDS SUMMARY | 2024-05-14 03:28 | XMS_ITS | Encounter Summary ---
Author Organization [facility] Address [address] [place] [address] Phone Care Team Providers Care Hobbing Machine Operator Name Role Phone Jann Burrows MD Primary Care Provider [phone] Reason for Visit * Consultation (Routine) - Closed Specialty Diagnoses / Procedures Referred By Contac t Referred To Contact Endocrinology Diagnoses Diabetic ketoacidosis without coma associated with other specified diabetes mellitus (HCC) Peter Styles Jr., MD Phone: tel: fax: [facility] (All Locations) Referral ID Status Reason Start Date Expiration Date V isits Requested Visits Authorized [id number] Closed Specialty Services Required 03/08/2019 05/05/2019 4 4 Encounter Details Date Type Department Care Team (Latest Contact Info) Description 03/19/2019 1:00 PM SENIOR SOFTWARE DEVELOPMENT MANAGER Office Visit [facility] Endocrinology Metabolism and Lipid [address] [facility] 5th [place] [address] [place] [address] Peter Styles Jr., MD [address] [place] [address] Acanthosis nigricans (Primary Dx); Diabetic [...] file Legal Sex Male 5:01 AM SENIOR SOFTWARE DEVELOPMENT MANAGER Gender Identity Male 12/18/2017 12:38 PM CDT Sexual Orientation Not on file 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 Not on file Not on file documented as of this encounter Last Filed Vital Signs Vital Sign Reading Time Taken Comments Blood Pressure 118/74 03/19/2019 1:04 PM SENIOR SOFTWARE DEVELOPMENT MANAGER Pulse 79 03/19/2019 1:04 PM SENIOR SOFTWARE DEVELOPMENT MANAGER Temperature 35.4 ??C (95.7 ??F) 03/19/2019 1:04 PM CS T Respiratory Rate - - Oxygen Saturation - - Inhaled Oxygen Concentration - - Weight 206.4 kg (455 lb) 03/19/2019 1:04 PM SENIOR SOFTWARE DEVELOPMENT MANAGER Height 200.7 cm (6' 7 ) 03/19/2019 1:04 PM SENIOR SOFTWARE DEVELOPMENT MANAGER Body Mass Index 51.26 03/19/2019 1:04 PM SENIOR SOFTWARE DEVELOPMENT MANAGER documented in this encounter Patient Instructions * Patient Instructions* Peter Styles MD - 03/19/2019 1:00 PM SENIOR SOFTWARE DEVELOPMENT MANAGER 1. You have excellent glucose control 2. [...] Try for a 1400 calorie diet (balanced). OR SOFTWARE DEVELOPMENT MANAGER OR SOFTWARE DEVELOPMENT MANAGER OR SOFTWARE DEVELOPMENT MANAGER documented in this encounter Ordered Prescriptions [...] ketones 3.4, AG 22). Ad[facility] to [facility] 03[facility]. At arrival to ED, chest [...] and Review of Systems from the 03-02-19 [facility] admission in [facility]. Physical Exam: Constitutional: Vital signs [...] next visit. Medications refilled. RTC 3 months. OR SOFTWARE DEVELOPMENT MANAGER documented in this encounter Plan of Treatment Not on file documented as of this encounter Procedures Procedure Name Priority Date/Time Associated Diagnosis Comments POCT HEMOGLOBIN A1C Routine 03/19/2019 1 :06 PM SENIOR SOFTWARE DEVELOPMENT MANAGER Diabetic ketoacidosis without coma associated with other specified diabetes mellitus (CMS/HCC) POCT GLUCOSE Routine 03/19/2019 1:06 PM SENIOR SOFTWARE DEVELOPMENT MANAGER Diabetic ketoacidosis without coma associated with other specified diabetes mellitus (CMS/HCC) documented in this encounter Results * POCT hemoglobin A1c (03/19/2019 1:06 PM SENIOR SOFTWARE DEVELOPMENT MANAGER) Hemoglobin A1C, POC 7.9 03/19/2019 1:06 PM SENIOR SOFTWARE DEVELOPMENT MANAGER us Peter Styles Jr., MD POINT OF CARE TEST OR DERABLES Final Result * POCT glucose (03/19/2019 1:06 PM SENIOR SOFTWARE DEVELOPMENT MANAGER) Glucose Blood, POC 120 mg/dL Blood specimen (specimen) 03/19/2019 1:06 PM SENIOR SOFTWARE DEVELOPMENT MANAGER Peter Styles Jr., MD POINT OF [...] a day with meals Reorder 03/08/2019 03/19/2019 [facility] Patient needs in room for diabetes [...] 03/19/2019 documented in this encounter Care Teams Hobbing Machine Operator Relationship Specialty Start Date End Date Jann Burrows MD [address] [place] [address] PCP - General Hematology 03/13/19 10/28/21 documented as of this encounter
--- OUTSIDE RECORDS SUMMARY | 2024-05-14 03:28 | XMS_ITS | Encounter Summary ---
Author Organization [facility] Address [address] [place] [address] Phone Care Team Providers Care Spin Tank Tender Name Role Phone Etelvina Del Cid MD Primary Care Provider + Encounter Details Date Type Department Care Team (Late st Contact Info) Description 01/27/2019 Telephone [facility] Cardiology [address] [facility] Advanced Medicine 8th [place] [address] [place] [address] Jef Walton MD [address] [facility] [address] [place], [place] [id number] Social History Tobacco Use Types Packs/Day Years Used Date Smoking Tobacco: Never Smokeless Tobacco: Never Alcohol Use Standard Drinks/Week Comments No 0 (1 standard drink = 0.6 oz pur e alcohol) Sex and Gender Information Value Date Recorded Sex Assigned at Not on file Legal Sex Male 5:01 AM RECEIVING ASSOCIATE Gender Identity Male 12/18/2017 12:38 PM [...] documented as of this encounter Care Teams Spin Tank Tender Relationship Specialty Start Date End Date Etelvina Del Cid MD [address] [address] [place] [address] PCP - General 08/14/16 03/10/19 documented as of this encounter
--- OUTSIDE RECORDS SUMMARY | 2024-05-14 03:28 | XMS_ITS | Encounter Summary ---
Author Organization [facility] Address [address] [place] [address] Phone Care Team Providers Care Paper Baler Name Role Phone Etelvina Del Cid MD Primary Care Provider + Encounter Details Date Type Department Care Team (Late st Contact Info) Description 02/23/2019 Telephone [facility] Cardiology [address] [facility] Advanced Medicine 8th [place] [address] [place] [address] Jef Walton MD [address] [facility] [address] [place], [place] [id number] Social History Tobacco Use Types Packs/Day Years Used Date Smoking Tobacco: Never Smokeless Tobacco: Never Alcohol Use Standard Drinks/Week Comments No 0 (1 standard drink = 0.6 oz pur e alcohol) Sex and Gender Information Value Date Recorded Sex Assigned at Not on file Legal Sex Male 5:01 AM ASSOCIATE PROFESSOR OF ART HISTORY Gender Identity Male 12/18/2017 12:38 PM CDT [...] filedocumented in this encounter Care Teams Paper Baler Relationship Specialty Start Date End Date Etelvina Del Cid MD [address] [place] [address] PCP - General 08/14/16 03/10/19 documented as of this encounter
--- OUTSIDE RECORDS SUMMARY | 2024-05-14 03:28 | XMS_ITS | Encounter Summary ---
Author Organization [facility] Address [address] [place] [address] Phone Care Team Providers Care Medical Equipment Sales Name Role Phone Jann Burrows MD Primary Care Provider [phone] Encounter Details Date Type Department Care Team (Late st Contact Info) Description 03/23/2019 Telephone [facility] Endocrinology Metabolism and Lipid [address] [facility] 5th [place] [address] [place] [address] Che Duff LPN Social History Tobacco Use Types Packs/Day Years Used Date Smoking Tobacco: Never Smokeless Tobacco: Never Alcohol Use Standard Drinks/Week Comments Yes 24 (1 standard drink = 0.6 oz pu re alcohol) CAGE negative. Case per week. 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 Pens are preferred. L TACKER * Telephone Encounter - Che Duff LPN - 03/23/2019 3:34 PM CST Ok to send pens instead of vials of the u500? L TACKER documented in this encounter Plan of Treatment Not on file documented as of this encounter Visit Diagnoses Not on filedocumented in this encounter Care Teams Medical Equipment Sales Relationship Specialty Start Date End Date Jann Burrows MD [address] [facility] [address] [place] [address] PCP - General Hematology 03/13/19 10/28/21 documented as of this encounter
--- OUTSIDE RECORDS SUMMARY | 2024-05-14 03:28 | XMS_ITS | Encounter Summary ---
Author Organization [facility] Healthcare Address [address] [place] [address] Care Team Providers Care Appeals Rn Name Role Phone Jann Burrows MD Primary Care Provider [phone] Reason for Visit * Reason Onset Date Comments Follow-up 03/13/2019 Encounter Details Date Type Department Care Team (Late st Contact Info) Description 03/13/2019 Telephone [facility] [address] [facility] [address] [place] [address] Jann Burrows MD [address] [facility] [address] [place] [address] Follow-up Social History Tobacco Use Types Packs/Day Years Used Date Smoking Tobacco: Never Smokeless Tobacco: Never Alcohol Use Standard Drinks/Week Comments Yes 24 (1 standard drink = 0.6 oz pu re alcohol) CAGE negative. Case per week. 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 Pharm contact: [phone] Jose Campoverde [phone] ORATE TRUST OFFICER documented in this encounter Plan of Treatment Not on file documented as of this encounter Visit Diagnoses Not on filedocumented in this encounter Care Teams Appeals Rn Relationship Specialty Start Date End Date Jann Burrows MD [address] [facility] [address] [place] [address] PCP - General Hematology 03/13/19 10/28/21 documented as of this encounter
--- OUTSIDE RECORDS SUMMARY | 2024-05-14 03:28 | XMS_ITS | Encounter Summary ---
Author Organization [facility] Healthcare Address [address] [place] [address] Care Team Providers Care Eastern Philosophy Professor Name Role Phone Jann Burrows MD Primary Care Provider [phone] Encounter Details Date Type Department Care Team (Late st Contact Info) Description 03/13/2019 12:25 PM PAVING CONTRACTOR Lab [facility] Outpatient Health [address] [place] [address] [place] [address] Metabolic syndrome Social History Tobacco Use Types Packs/Day Years Used Date Smoking Tobacco: Never Smokeless Tobacco: Never Alcohol Use Standard Drinks/Week Comments Yes 24 (1 standard drink = 0.6 oz pu re alcohol) CAGE negative. Case per week. 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 Not on file Not on file documented as of this encounter Plan of Treatment Not on file documented as of this encounter Procedures Procedure Name Priority Date/Time Associated Diagnosis Comments BASIC METABOLIC PANEL Routine 03/13/2019 12:30 PM PAVING CONTRACTOR Metabolic syndrome documented in this encounter Results * Basic metabolic panel (03/13/2019 12:30 PM PAVING CONTRACTOR) Sodium 142 135 - 145 mmol/L [facility] Potassium, pl 4.3 3.3 - 4.9 mmol/L [facility] Comment:Hemolyzed; (++); pot assium value may be [...] [place] Blood specimen (specimen) 03/13/2019 12:30 PM PAVING CONTRACTOR 03/13/2019 1:46 PM PAVING CONTRACTOR us Nikita Buchanan MD LAB BLOOD ORDERABLES Final Resul t [facility] [place] [facility] Department [place] [address] documented in this encounter Visit Diagnoses Diagnosis Metabolic syndrome Dysmetabolic Syndrome X documented in this encounter Care Teams Eastern Philosophy Professor Relationship Specialty Start Date End Date Jann Burrows MD [address] [facility] [address] [place] [address] PCP - General Hematology 03/13/19 10/28/21 documented as of this encounter
--- OUTSIDE RECORDS SUMMARY | 2024-05-14 03:29 | XMS_ITS | Encounter Summary ---
Author Organization [facility] Care Team Providers Care Sow Farm Technician Name Role Phone Unavailable Primary Care Provider Unavailabl e Encounter Details Date Type Department Care Team (Latest Contact Info) Description 07/27/2009 9:39 AM CDT - 07/27/2009 11:59 PM CDT Hospital Encounter [facility] Radiological examination Social History Tobacco Use Types Packs/Day Years Used Date Smoking Tobacco: Never Assessed Sex and Gender Information Value Date Recorded Sex Assigned at Not on file Legal Sex Male 5:01 AM HOOP ROLLS OPERATOR Gender Identity Male 12/18/2017 12:38 PM CDT Sexual Orientation Not on file documented as of this encounter Plan of Treatment Not on file documented as of this encounter Visit Diagnoses Diagnosis Radiological examination documented in this encounter
--- OUTSIDE RECORDS SUMMARY | 2024-05-14 03:29 | XMS_ITS | Encounter Summary ---
Author Organization [facility] Address [address] [place] [address] Phone Care Team Providers Care Engineering Surveyor Name Role Phone Etelvina Del Cid MD Primary Care Provider + No, Physician Primary Care Provider [phone] Jann Burrows MD Primary Care Provider [phone] Mariana Monique MD Unavailable [phone] [facility] Primary Care Provider Encounter Details Date Type Department Care Team (Latest Contact Info) Description 09/06/2017 Orders Only [facility] Scanning, Provider Social History Tobacco Use Types Packs/Day Years Used Date Smoking Tobacco: Never Sex and Gender Information Value Date Recorded Sex Assigned at Not on file Legal Sex Male 5:01 AM CLINIC CMA Gender Identity Male 12/18/2017 12:38 PM CDT [...] documented as of this encounter Care Teams Engineering Surveyor Relationship Specialty Start Date End Date Etelvina Del Cid MD [address] [facility] [address] [place] [address] PCP - General 08/14/16 03/10/19 No, Physician PCP - General 03/11/19 03/12/19 Jann Burrows MD [address] [place] [address] PCP - General Hematology 03/13/19 10/28/21 Keila Jimenez MD [address] [place] [address] PCP - General 10/29/21 Mariana Monique MD [address] [place] [address] Referring Physician Internal Medicine 01/17/20 documented as of this encounter
--- OUTSIDE RECORDS SUMMARY | 2024-05-14 03:29 | XMS_ITS | Encounter Summary ---
Author Organization [facility] Address [address] [place] [address] Phone Care Team Providers Care Bulk Cooler Installer Name Role Phone Etelvina Del Cid MD Primary Care Provider + Encounter Details Date Type Department Care Team (Late st Contact Info) Description 04/22/2018 Orders Only [facility] Cardiology [address] [facility] Advanced Medicine 8th [place] [address] [place] [address] Jef Walton MD [address] [facility] [address] [place] [address] Asymmetric septal hypertrophy (CMS/HCC) (Primary Dx) Social History Tobacco Use Types Packs/Day Years Used Date Smoking Tobacco: Never Smokeless Tobacco: Never Alcohol Use Standard Drinks/Week Comments No 0 (1 standard drink = 0.6 oz pur e alcohol) Sex and Gender Information Value Date Recorded Sex Assigned at Not on file Legal Sex Male 5:01 AM BOTTOM BRUSHER Gender Identity Male 12/18/2017 12:38 PM CDT Sexual Orientation Not on file documented as of this encounter Plan of Treatment Not on file documented as of this encounter Visit Diagnoses Diagnosis Asymmetric septal hypertrophy- Primary documented in this encounter Care Teams Bulk Cooler Installer Relationship Specialty Start Date End Date Etelvina Del Cid MD [address] [facility] [address] [place] [address] PCP - General 08/14/16 03/10/19 documented as of this encounter
--- OUTSIDE RECORDS SUMMARY | 2024-05-14 03:29 | XMS_ITS | Encounter Summary ---
Author Organization [facility] Healthcare Address [address] [place] [address] Care Team Providers Care Vat Cleaner Name Role Phone Etelvina Del Cid MD Primary Care Provider + Encounter Details Date Type Department Care Team (Latest Contact Info) Description 09/06/2017 9:39 AM CDT - 09/06/2017 11:59 PM CDT Hospital Encounter [facility] OP INTERIM [phone] Debbie Perales MD [address] 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 ACC# ??Date Time ??Exam [id number] September 06, 2017 11:33:00 [id number] [employer] EXAMINATION: ??LIMITED ABDOMINAL SONOGRAM [...] DICKSON M.D. on Sep 06 2017 12:16P [id number] ESPANA M.D. FINAL REPORT The radiology attending physician has personally reviewed this study, and has reviewed and/or edited this written report and agrees with it. Attending: ??ANGELLA, ??DEBBIE Requesting: ??ANGELLA, ??DEBBIE Requesting Fax: ?? Attending Fax: ?? Attending ID: ??[id number] Requesting ID: ??[id number] Report To 1 ID: ??[id number] ? Report To 1 Name: ??, ?? Report To 1 FAX: ?? NextGen Order #: ?? Procedure Note Miscellaneous, Not In File - 09/06/2017 Roma ESPANA M.D. FINAL REPORT The radiology attending physician has personally reviewed this study, and has reviewed and/or edited this written report and agrees with it. ACC# Date Time Exam [id number] September 06, 2017 11:33:00 [id number] [employer] EXAMINATION: LIMITED ABDOMINAL SONOGRAM [...] DICKSON M.D. on Sep 06 2017 12:16P [id number] ESPANA M.D. FINAL REPORT The radiology attending physician has personally reviewed this study, and has reviewed and/or edited this written report and agrees with it. Attending: DEBBIE PERALES Requesting: DEBBIE PERALES Requesting Fax: Attending Fax: Attending ID: [id number] Requesting ID: [id number] Report To 1 ID: [id number] Report To 1 Name: , Report To 1 FAX: NextGen Order #: us Debbie Perales MD [facility] US PROCEDURES Final Result * Iron profile (09/06/2017 12:01 PM CDT) Iron 122 50 - 150 mcg/dL TRACIE ELIZONDO Comment:Testing performed by : [facility], [address] [place] [address], [place]., [address] TIBC 368 250 - 400 mcg/dL TRACIE ELIZONDO Comment:Testing performed by : [facility], [address] [place] [address]., [address] Transferrin 263 200 - 360 mg/dL TRACIE ELIZONDO Comment:Testing performed by : [facility], [address] [place] [address]., [address] Transferrin saturation 33.2 20.0 - 50.0 % TRACIE ELIZONDO Comment:Testing performed by : [facility], [address] [place] [address]., [address] Blood specimen (specimen) 09/06/2017 12:01 PM CDT 09/06/2017 2:00 PM CDT Narrative TRACIE ELIZONDO - 09/06/2017 2:46 PM CDT Debbie Perales MD LAB BLOOD ORDERABLES Fin al Result Performing Organization Address [facility] Co de Phone Number [facility] [address] [place] [address] * Folate (09/06/2017 12:01 PM CDT) Folic acid 11.3 >=5.0 ng/mL TRACIE ELIZONDO Comment:Testing performed by : [facility], [address] [place] [address]., [address] Blood specimen (specimen) 09/06/2017 12:01 PM CDT 09/06/2017 2:00 PM CDT Narrative TRACIE ELIZONDO - 09/06/2017 2:46 PM CDT Debbie Perales MD LAB BLOOD ORDERABLES Fin al Result Performing Organization Address City/[facility] Co de Phone Number [facility] [address] [place] [address] * Vitamin B12 (09/06/2017 12:01 PM CDT) Vitamin B12 524 210 - 900 pg/mL TRACIE ELIZONDO Comment:Testing performed by : [facility], [address] [place] [address]., [address] Blood specimen (specimen) 09/06/2017 12:01 PM CDT 09/06/2017 2:00 PM CDT Narrative TRACIE ELIZONDO - 09/06/2017 2:46 PM CDT Debbie Perales MD LAB BLOOD ORDERABLES Fin al Result Performing Organization Address [facility] de Phone Number TRACIE DIAZCH [address] [place], [place] [id number] * Ferritin (09/06/2017 12:01 PM CDT) Pathologist [facility] Ferritin 337.7 30.0 - 400.0 ng/mL TRACIE ELIZONDO Comment: Interpretive Data On July 31, 2016 new Chemistry Instrumentation was implemented. ??If you have any questions, please contact the Laboratory at [phone]. Testing performed by: [facility], [address] [place] [address]., [address] Blood specimen (specimen) 09/06/2017 12:01 PM CDT 09/06/2017 2:00 PM CDT Narrative TRACIE ELIZONDO - 09/06/2017 2:46 PM CDT Debbie Perales MD LAB BLOOD ORDERABLES Fin al Result Performing Organization Address [facility] Co de Phone Number TRACIE DIAZCH [address] Department [employer] [place] [address] * Differential, auto (09/06/2017 11:00 AM CDT) [...] MD LAB BLOOD ORDERABLES Fin al Result [facility] [address] [facility]. Department [place] [address] * CBC with auto differential (09/06/2017 11:00 AM CDT) WBC 6.7 3.8 - 9.9 K/cumm [facility] W RBC 5.29 4.30 - 5.80 M/cumm [facility] Hgb 15.8 13.0 - 17.5 g/dL [facility] Hct 45.2 38.9 - 50.3 % [facility] MCV 85.4 81.3 - 96.4 fL [facility] MCH 29.9 27.1 - 33.3 pg [facility] MCHC 35.0 32.3 - 35.7 g/dL [facility] RDW CV 12.3 11.1 - 14.9 % [facility] RDW SD 37.9 35.7 - 48.1 fL [facility] Plt 274 150 - 400 K/cumm [facility] W MPV 9.6 9.1 - 12.3 fL [facility] NRBC abs 0.00 0.00 - 0.01 K/cumm [facility] Blood specimen (specimen) 09/06/2017 11:00 AM CDT 09/06/2017 11:54 AM CDT Narrative TRACIE ELIZONDO - 09/06/2017 12:00 PM CDT Debbie Perales MD LAB BLOOD ORDERABLES Fin al Result Performing Organization Address [facility] Co de Phone Number [facility] [address] [facility] Department [place] [address] * (ABNORMAL) Testosterone, free, total (09/06/2017 10:52 AM CDT) [facility] Testosterone 187(L) 240 - 950 ng/dL TRACIE ELIZONDO Comment: ADDITIONAL INFORMATION Testing performed by Liquid Chromatography-Tandem Mass Spectrometry (LC-MS/MS). This test was developed and its performance characteristics determined by [facility] in a manner consistent with CLIA requirements. This test has not been cleared or approved by the U.S. Food and Drug Administration. Test Performed by: [facility] [address] [place] [address] Testosterone, free 6.92 5.36 - 21.2 ng/dL TRACIE ELIZONDO Comment: ADDITIONAL INFORMATION Testing performed by [facility]. This test was developed and its performance characteristics determined by [facility] in a manner consistent with CLIA requirements. This test has not been cleared or approved by the U.S. Food and Drug Administration. Blood specimen (specimen) 09/06/2017 10:52 AM CDT 09/06/2017 11:02 AM CDT Narrative TRACIE BRANDIEDEN - 09/10/2017 11:15 AM CDT Debbie Perales MD LAB BLOOD ORDERABLES Fin al Result Performing Organization Address [facility] Co de Phone Number TRACIE DIAZCH [address]. Department [place] [employer] [place] [address] * Hepatitis panel, acute (09/06/2017 10:52 AM CDT) Hep A IgM Nonreactive Nonreactive TRACIE DIAZ Comment: Interpretive Data If test is reported as GRAYZONE, new sample should be drawn in two weeks for testing. Current interpretive data was last revised on 2016. Testing performed by: [facility], [address] [place]., [address] Hep B core IgM Nonreactive Nonreactive [facility] Comment: Interpretive Data If test is reported as GRAYZONE, new sample should be drawn for testing. Current interpretive data was last revised on 2016. Testing performed by: [facility], [address] [place]., [address] Hep C Ab Nonreactive Nonreactive [facility] Comment: Interpretive Data Positive and greyzone results should be confirmed by a molecular method. If positive or greyzone, a second separately collected sample should be submitted for Hepatitis C Virus RNA. Detection and Quantitation by Real-Time Reverse Riddler Operator-PCR.Current Interpretive data was last revised on 2016. Testing performed by: [facility], [address] [place]., [address] HepBsAg Nonreactive Nonreactive TRACIE [facility] Comment:Testing performed by : [facility], [address] [place] [address]., [address] Blood specimen (specimen) 09/06/2017 10:52 AM CDT 09/06/2017 1:28 PM CDT Narrative TRACIE ELIZONDO - 09/07/2017 8:57 AM CDT Debbie Perales MD LAB MICROBIOLOGY - GENER AL ORDERABLES Edited Result - Final TRACIE DIAZCH [address]. Department [place] [employer] [address] * (ABNORMAL) Vitamin D 25 hydroxy (09/06/2017 10:52 AM CDT) Vitamin D 25-OH 16(L) 30 - 80 ng/mL ESVINNER JOE Comment:Testing performed by : [facility], [address] [facility], [place]., [address] Blood specimen (specimen) 09/06/2017 10:52 AM CDT 09/06/2017 1:29 PM CDT Narrative TRACIE PAZWCH - 09/06/2017 2:29 PM CDT Debbie Perales MD LAB BLOOD ORDERABLES Fin al Result Performing Organization Address [facility] Co de Phone Number [facility] [address] [place], [place] [id number] * (ABNORMAL) Hepatic function panel (09/06/2017 10:52 [...] ORDERABLES Fin al Result Performing Organization Address City/[facility]/ZIP Co de Phone Number [facility] [address] [place], [place] [id number] * TSH reflex to free T4 (09/06/2017 10:52 AM CDT) TSH 2.56 0.30 - 4.20 mcUnits/mL TRACIE ELIZONDO Blood specimen (specimen) 09/06/2017 10:52 AM CDT 09/06/2017 11:02 AM CDT Narrative TRACIE ELIZONDO - 09/06/2017 11:36 AM CDT Debbie Perales MD LAB BLOOD ORDERABLES Arsh crisetl Result - Final [facility] [address] [facility] Department [place] [address] * DISCHARGE LABORATORY CUMULATIVE REPORT (09/06/2017 12:00 AM CDT) Narrative 09/06/2017 12:00 AM CDT Ordered by an unspecified provider. Historical Provider LAB BLOOD ORDERABLES Melina l Result documented in this encounter Visit Diagnoses Not on filedocumented in this encounter Care Teams Vat Cleaner Relationship Specialty Start Date End Date Etelvina Del Cid MD [address] [place] [place] [address] [address] PCP - General 08/14/16 03/10/19 documented as of this encounter"
--- OUTSIDE RECORDS SUMMARY | 2024-05-14 03:29 | XMS_ITS | Encounter Summary ---
Author Organization [facility] Address [address] [place] [address] Phone Care Team Providers Care Rehabilitation Engineer Name Role Phone Etelvina Del Cid MD Primary Care Provider + Encounter Details Date Type Department Care Team (Late st Contact Info) Description 10/09/2017 9:45 AM CDT Office Visit [facility] Cardiology [facility] Advanced Medicine 8th [place] [address] [place] [address] Jef Walton MD [address] [facility] [address] [place], [place] [phone] Benign essential hypertension (Primary Dx); Asymmetric septal hypertrophy (CMS/HCC); Morbid obesity with BMI of 50.0-59.9, adult (CMS/HCC); Low HDL (under 40) Social History Tobacco Use Types Packs/Day Years Used Date Smoking Tobacco: Never Smokeless Tobacco: Never Sex and Gender Information Value Date Recorded Sex Assigned at Not on file 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 Morbid obesity with BMI of 50.0-59.9, adult ([facility]) 07/10/2017 Assessment & Plan Note: Weight up slightly from his last visit. Counseled regarding weight loss and dietary changes. To follow up with the weight loss clinic tomorrow, being considered for bariatric surgery. ??? Low HDL (under 40) 07/10/2017 Assessment & Plan Note: Also with high TGs. Increase activity, work on weight loss and dietary changes. ??? Asymmetric septal hypertrophy ([facility]) 02/10/2016 Assessment & Plan Note: Still unclear [...] further assistance.. Sincerely, Jef Walton MD, MPHS, [facility] Edging Machine Catcheranalytics associate Cardiovascular Division [facility] --- Please note: This note was generated in part using voice-recognition software and may contain movie operator errors. documented in this encounter Miscellaneous Notes [...] 10/09/2017 added in this encounter Care Teams Rehabilitation Engineer Relationship Specialty Start Date End Date Etelvina Del Cid MD [address] [place] [address] [place] [address] PCP - General 08/14/16 03/10/19 documented as of this encounter
--- OUTSIDE RECORDS SUMMARY | 2024-05-14 03:29 | XMS_ITS | Encounter Summary ---
Author Organization [facility] Address [address] [place] [address] Phone Care Team Providers Care Archeologist Classical Name Role Phone Etelvina Del Cid MD Primary Care Provider + Encounter Details Date Type Department Care Team (Late st Contact Info) Description 04/22/[address] 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 Spoke to Nataliia in scheduling and informed her of MR scheduled for 05/01 at 9am, scanner 5. Order placed in EPIC. She states pt needs to be at MRI by 8:15am. Pt informed and verbalizes understanding. KEY PROOF READER * Telephone Encounter - Piedad Velez RN - 04/22/2018 10:48 AM WHISKEY PROOF READER Per Dr. Walton - schedule pt for CMR. Spoke to Justin, agency appointments supervisor in MRI, and he states CMR can be done on 05/01 at 9am, [facility], 3rd floor, scanner 5. He asks that once I confirm date/time with patient, to call scheduling at [phone] and let them know date/time and test to be done in scanner 5. LMOR for pt to CB. KEY PROOF READER documented in this encounter Plan of Treatment Not on file documented as of this encounter Visit Diagnoses Not on filedocumented in this encounter Care Teams Archeologist Classical Relationship Specialty Start Date End Date Etelvina Del Cid MD [address] [place] [address] [place] [address] PCP - General 08/14/16 03/10/19 documented as of this encounter
--- OUTSIDE RECORDS SUMMARY | 2024-05-14 03:29 | XMS_ITS | Encounter Summary ---
Author Organization [facility] Healthcare Address [address] [place] [address] Care Team Providers Care Data Control Clerk Name Role Phone Etelvina Del Cid MD Primary Care Provider + Encounter Details Date Type Department Care Team (Latest Contact Info) Description 06/16/2017 8:58 PM POKER ROOM MANAGER - 06/17/2017 3:26 AM POKER ROOM MANAGER Hospital Encounter [facility] Emergency Department [address] [place] [address] Edilberto Noonan MD [address] [facility] [address] [place], [place] [id number] Discharge Disposition: Discharge to home or self care Social History Tobacco Use Types Packs/Day Years Used Date Smoking Tobacco: Never Assessed Sex and Gender Information Value Date Recorded Sex Assigned at Not on file Legal Sex Male 5:01 AM POKER ROOM MANAGER Gender Identity Male 12/18/2017 12:38 PM [...] LATERAL 2 VIEWS Routine 06/17/2017 6:18 AM POKER ROOM MANAGER DIFFERENTIAL AUTO STAT 06/17/2017 12: 41 AM POKER ROOM MANAGER CBC WITH AUTO DIFFERENTIAL STAT 06/17/2017 12:41 AM POKER ROOM MANAGER TROPONIN I STAT 06/17/2017 12:41 AM POKER ROOM MANAGER BASIC METABOLIC PANEL STAT 06/17/2017 12:41 AM POKER ROOM MANAGER DISCHARGE LABORATORY CUMULATIVE REPORT 06/17/2017 12:00 AM POKER ROOM MANAGER documented in this encounter Results * XR Chest Pa Lateral 2 Views (06/17/2017 6:18 AM POKER ROOM MANAGER) Anatomical Region Laterality Modality Body, Chest N/A Radiographic Lizzie ging 06/17/2017 6:18 AM POKER ROOM MANAGER Narrative 06/17/2017 4:51 PM POKER ROOM MANAGER Roma KITCHEN M.D. FINAL REPORT The radiology attending physician has personally reviewed this study, and has reviewed and/or edited this written report and agrees with it. ACC# ??Date Time ??Exam [id number] Jun 17, 2017 00:18:00 [id number] Chest [address] PA/Lat EXAMINATION: ??2 [...] JENKINS M.D. on Jun 17 2017 10:49A [id number] KITCHEN M.D. FINAL REPORT The radiology attending physician has personally reviewed this study, and has reviewed and/or edited this written report and agrees with it. Attending: ??SARAN, ??EDILBERTO Requesting: ??LOYD, ??HEIDI Requesting Fax: ?? Attending Fax: ?? Attending ID: ??[id number] Requesting ID: ??[id number] Report To 1 ID: ??[id number] ? Report To 1 Name: ??, ?? Report To 1 FAX: ?? NextGen Order #: ?? Procedure Note Miscellaneous, Not In File - 06/17/2017 Roma KITCHEN M.D. FINAL REPORT The radiology attending physician has personally reviewed this study, and has reviewed and/or edited this written report and agrees with it. ACC# Date Time Exam [id number] Jun 17, 2017 00:18:00 [id number] Chest [address] PA/Lat EXAMINATION: 2 [...] JENKINS M.D. on Jun 17 2017 10:49A [id number] KITCHEN M.D. FINAL REPORT The radiology attending physician has personally reviewed this study, and has reviewed and/or edited this written report and agrees with it. Attending: EDILBERTO NOONAN Requesting: HEIDI TOPETE Requesting Fax: Attending Fax: Attending ID: [id number] Requesting ID: [id number] Report To 1 ID: [id number] Report To 1 Name: , Report To 1 FAX: NextGen Order #: us Heidi Topete HEEL SHAPER IMG XR PROCEDURES Final Res ult * Troponin I (06/17/2017 12:41 AM POKER ROOM MANAGER) Troponin I <0.03 0.00 - 0.03 ng/mL TRACIE PAZ Comment: Interpretive Data Serial determinations are recommended for the diagnosis of myocardial infarction (Third [place] Definition of Myocardial Infarction. ??J Am Butch Cardiol 2012;60:1581-98). Current interpretive data was last revised on 13. Blood specimen (specimen) 06/17/2017 12:41 AM POKER ROOM MANAGER 06/17/2017 12:49 AM POKER ROOM MANAGER Narrative TRACIE [facility] - 06/17/2017 1:20 AM POKER ROOM MANAGER us Magno Nuñez MD LAB BLOOD ORDERABLES Final Res ult [facility] Department [place] [address] * Basic metabolic panel (06/17/2017 12:41 AM POKER ROOM MANAGER) Sodium 142 135 - 145 mmol/L [facility] Potassium, pl 4.0 3.3 - 4.9 mmol/L [facility] Chloride 107 97 - 110 mmol/L [facility] CO2 26 22 - 32 mmol/L [facility] BUN 15 8 - 25 mg/dL [facility] Glucose 88 70 - 199 mg/dL [facility] [...] Creatinine 0.96 0.80 - 1.30 mg/dL [facility] Calcium 9.8 8.5 - 10.3 mg/dL [facility] Anion gap 9 2 - 15 mmol/L [facility] Blood specimen (specimen) 06/17/2017 12:41 AM POKER ROOM MANAGER 06/17/2017 12:49 AM POKER ROOM MANAGER Narrative TRACIE [facility] - 06/17/2017 1:14 AM POKER ROOM MANAGER Magno Nuñez MD LAB BLOOD ORDERABLES Final Res ult Performing Organization Address [facility] Co de Phone Number [facility] [place] [address] * Differential, auto (06/17/2017 12:41 AM POKER ROOM MANAGER) Neutrophil pct 54.1 % [facility] Imm gran pct 0.1 % [facility] Lymphocyte pct 33.7 % [facility] Monocyte pct 8.6 % [facility] Eosinophil pct 3.0 % [facility] Basophil pct 0.5 % [facility] Neutrophil abs 4.02 1.70 - 6.50 K/cumm [facility] Imm gran abs 0.01 0.00 - 0.10 K/cumm [facility] Lymphocyte abs 2.51 0.80 - 3.30 K/cumm [facility] Monocyte abs 0.64 0.20 - 0.80 K/cumm [facility] Eosinophil abs 0.22 0.00 - 0.50 K/cumm [facility] Basophil abs 0.04 0.00 - 0.10 K/cumm [facility] Blood specimen (specimen) 06/17/2017 12:41 AM POKER ROOM MANAGER 06/17/2017 12:49 AM POKER ROOM MANAGER [facility] - 06/17/2017 12:56 AM POKER ROOM MANAGER Magno Nuñez MD LAB BLOOD ORDERABLES Final Res ult Performing Organization Address [facility] Co de Phone Number [facility] Department [place] [address] * CBC with auto differential (06/17/2017 12:41 AM POKER ROOM MANAGER) WBC 7.4 3.8 - 9.9 K/cumm [facility] RBC 5.49 4.30 - 5.80 M/cumm [facility] Hgb 16.0 13.0 - 17.5 g/dL [facility] Hct 45.6 38.9 - 50.3 % [facility] MCV 83.1 81.3 - 96.4 fL [facility] MCH 29.1 27.1 - 33.3 pg [facility] MCHC 35.1 32.3 - 35.7 g/dL [facility] RDW CV 12.4 11.1 - 14.9 % [facility] RDW SD 37.7 35.7 - 48.1 fL [facility] Plt 294 150 - 400 K/cumm [facility] MPV 9.7 9.1 - 12.3 fL [facility] NRBC abs 0.00 0.00 - 0.01 K/cumm [facility] Blood specimen (specimen) 06/17/2017 12:41 AM POKER ROOM MANAGER 06/17/2017 12:49 AM POKER ROOM MANAGER Narrative [facility] - 06/17/2017 12:56 AM POKER ROOM MANAGER us Magno Nuñez MD LAB BLOOD ORDERABLES Final Res ult [facility] [place] [address] * DISCHARGE LABORATORY CUMULATIVE REPORT (06/17/2017 12:00 AM POKER ROOM MANAGER) Narrative 06/17/2017 12:00 AM POKER ROOM MANAGER Ordered by an unspecified provider. Historical Provider LAB BLOOD ORDERABLES Melina l Result documented in this encounter Visit Diagnoses Not on filedocumented in this encounter Care Teams Data Control Clerk Relationship Specialty Start Date End Date Etelvina Del Cid MD [address] [place] [address] [place] [address] PCP - General 08/14/16 03/10/19 documented as of this encounter
--- OUTSIDE RECORDS SUMMARY | 2024-05-14 03:29 | XMS_ITS | Encounter Summary ---
Author Organization [facility] Facility Care Team Providers Care Sap Bw Developer Name Role Phone Unavailable Primary Care Provider [...] on file Legal Sex Male 5:01 AM JALOUSIES INSTALLER Gender Identity Male 12/18/2017 12:38 PM CDT Sexual Orientation Not on file documented as of this encounter Plan of Treatment Not on file documented as of this encounter Visit Diagnoses Diagnosis Headache Chest pain Unspecified chest pain Headache(784.0) Headache documented in this encounter
--- OUTSIDE RECORDS SUMMARY | 2024-05-14 03:29 | XMS_ITS | Encounter Summary ---
Author Organization [facility] Address [address] [place] [address] Phone Care Team Providers Care Manager Radiation Name Role Phone Etelvina Del Cid MD Primary Care Provider + Reason for Visit * Reason Comments Follow-up Encounter Details Date Type Department Care Team (Late st Contact Info) Description 10/10/2017 8:20 AM CDT Office Visit [facility] Nutrition Services [address] [facility] Medical Office Building [address] [place] [address] Debbie Bowie MD [address] [place] [address] Weight loss counseling, encounter for [...] file Legal Sex Male 5:01 AM WEB PRESS OPERATOR Gender Identity Male 12/18/2017 12:38 PM [...] sleep documented in this encounter Care Teams Manager Radiation Relationship Specialty Start Date End Date Etelvina Del Cid MD [address] [place] [address] [address] [place] [address] PCP - General 08/14/16 03/10/19 documented as of this encounter
--- OUTSIDE RECORDS SUMMARY | 2024-05-14 03:29 | XMS_ITS | Encounter Summary ---
Author Organization [facility] Facility Care Team Providers Care Staff Rn Name Role Phone Unavailable Primary Care Provider Unavailabl e Encounter Details Date Type Department Care Team (Late st Contact Info) Description 05/02/2010 9:17 AM DRIER ATTENDANT - 05/02/2010 11:59 PM DRIER ATTENDANT Hospital Encounter [facility] Etelvina Del Cid MD [address] [place] [address] Obesity; Dietary counseling and surveillance; Body mass index, pediatric, greater than or equal to 95th percentile for age Social History Tobacco Use Types Packs/Day Years Used Date Smoking Tobacco: Never Assessed Sex and Gender Information Value Date Recorded Sex Assigned at Not on file Legal Sex Male 5:01 AM DRIER ATTENDANT Gender Identity Male 12/18/2017 12:38 PM [...]
--- OUTSIDE RECORDS SUMMARY | 2024-05-14 03:29 | XMS_ITS | Encounter Summary ---
Author Organization [facility] Facility Care Team Providers Care Manager Storage Name Role Phone Unavailable Primary Care Provider [...] on file Legal Sex Male 5:01 AM FLIGHT SURGEON Gender Identity Male 12/18/2017 12:38 PM CDT Sexual Orientation Not on file documented as of this encounter Plan of Treatment Not on file documented as of this encounter Visit Diagnoses Diagnosis Syncope and collapse Asthma Unspecified asthma Attention deficit disorder with hyperactivity Attention deficit disorder with hyperactivity(314.01) Attention deficit disorder with hyperactivity documented in this encounter
--- OUTSIDE RECORDS SUMMARY | 2024-05-14 03:29 | XMS_ITS | Encounter Summary ---
Author Organization [facility] Address [address] [place] [address] Phone Care Team Providers Care Picker Name Role Phone Etelvina Del Cid MD Primary Care Provider + Encounter Details Date Type Department Care Team (Late st Contact Info) Description 04/22/2018 Telephone [facility] Cardiology [address] [facility] Advanced Medicine 8th [place] [address] [place] [address] Jef Walton MD [address] [facility] [place] [address] [place], [place] [id number] Social History Tobacco Use Types Packs/Day Years Used Date Smoking Tobacco: Never Smokeless Tobacco: Never Alcohol Use Standard Drinks/Week Comments No 0 (1 standard drink = 0.6 oz pur e alcohol) Sex and Gender Information Value Date Recorded Sex Assigned at Not on file Legal Sex Male 5:01 AM ORGAN TEACHER Gender Identity Male 12/18/2017 12:38 PM CDT Sexual Orientation Not on file documented as of this encounter Miscellaneous Notes * Telephone Encounter - Piedad Velez RN - 04/22/2018 12:10 PM ORGAN TEACHER See other note. N TEACHER * Telephone Encounter - Sven Marcos - 04/22/2018 12:03 PM CST jam Pt ret call N TEACHER documented in this encounter Plan of Treatment Not on file documented as of this encounter Visit Diagnoses Not on filedocumented in this encounter Care Teams Picker Relationship Specialty Start Date End Date Etelvina Del Cid MD [address] [place] [address] PCP - General 08/14/16 03/10/19 documented as of this encounter
--- OUTSIDE RECORDS SUMMARY | 2024-05-14 03:29 | XMS_ITS | Encounter Summary ---
Author Organization [facility] Facility Care Team Providers Care Assistant Vice President Name Role Phone Unavailable Primary Care Provider Unavailabl e Encounter Details Date Type Department Care Team (Late st Contact Info) Description 12/13/2014 - 12/13/2014 11:59 PM CDT Hospital Encounter [facility] Astrid Mcclain MD 1 [facility] [address] [place] [address] Nonspecific (abnormal) findings on radiological and other examination of other intrathoracic organs; Undiagnosed cardiac murmurs Social History Tobacco Use Types Packs/Day Years Used Date Smoking Tobacco: Never Assessed Sex and Gender Information Value Date Recorded Sex Assigned at Not on file Legal Sex Male 5:01 AM LAST IRONER Gender Identity Male 12/18/2017 12:38 PM CDT [...] agrees with it. ACC# ??Date Time ??Exam [id number] Dec 13, 2014 09:41:00 [id number] MR Cardiac M&Func wwo cont [id number] Dec 13, 2014 09:43:00 [id number] MR Cardiac Flow Velocity ACC# ??Date Time ??Exam [id number] Dec 13, 2014 09:41:00 [id number] MR Cardiac M&Func wwo cont [id number] Dec 13, 2014 09:43:00 [id number] MR Cardiac Flow Velocity EXAMINATION: ?Cardiac MRI [...] Septum: 16 mm Free wall: 10 mm [place]: Septum: 10 mm Free wall: 10 mm [...] agrees with it. ACC# Date Time Exam [id number] Dec 13, 2014 09:41:00 [id number] MR Cardiac M&Func wwo cont [id number] Dec 13, 2014 09:43:00 [id number] MR Cardiac Flow Velocity [facility]# Date Time Exam [id number] Dec 13, 2014 09:41:00 [id number] MR Cardiac M&Func wwo cont [id number] Dec 13, 2014 09:43:00 [id number] MR Cardiac Flow Velocity EXAMINATION: Cardiac MRI [...] Septum: 16 mm Free wall: 10 mm [place]: Septum: 10 mm Free wall: 10 mm [...] agrees with it. ACC# ??Date Time ??Exam [id number] Dec 13, 2014 09:41:00 [id number] MR Cardiac M&Func wwo cont [id number] Dec 13, 2014 09:43:00 [id number] MR Cardiac Flow Velocity ACC# ??Date Time ??Exam [id number] Dec 13, 2014 09:41:00 [id number] MR Cardiac M&Func wwo cont [id number] Dec 13, 2014 09:43:00 [id number] MR Cardiac Flow Velocity EXAMINATION: ?Cardiac MRI [...] Septum: 16 mm Free wall: 10 mm [place]: Septum: 10 mm Free wall: 10 mm [...] MARS M.D. on Dec 13 2014 ??6:33P [id number] Procedure Note Provider, MD Mia - 09/06/2016 EULALIA MARS M.D. ERIBERTO FOSS M.D. FINAL REPORT The radiology attending physician has personally reviewed this study, and has reviewed and/or edited this written report and agrees with it. ACC# Date Time Exam [id number] Dec 13, 2014 09:41:00 [id number] MR Cardiac M&Func wwo cont [id number] Dec 13, 2014 09:43:00 [id number] MR Cardiac Flow Velocity ACC# Date Time Exam [id number] Dec 13, 2014 09:41:00 [id number] MR Cardiac M&Func wwo cont [id number] Dec 13, 2014 09:43:00 [id number] MR Cardiac Flow Velocity EXAMINATION: Cardiac MRI [...] Septum: 16 mm Free wall: 10 mm [place]: Septum: 10 mm Free wall: 10 mm [...] MARS M.D. on Dec 13 2014 6:33P [id number] Historical Provider IMNabila MRI PROCEDURES Final Result [...]
--- OUTSIDE RECORDS SUMMARY | 2024-05-14 03:29 | XMS_ITS | Encounter Summary ---
Author Organization [facility] Address [address] [place] [address] Phone Care Team Providers Care Scrap Baler Name Role Phone Shira Del Cid MD Primary Care Provider + Encounter Details Date Type Department Care Team (Late st Contact Info) Description 07/23/2018 10:30 AM CDT Office Visit [facility] Cardiology [address] [facility] Advanced Medicine 8th [place] [address] [place] [address] Jef Walton MD [address] [facility] [place] [place], [place] [id number] Benign essential hypertension (Primary Dx); Asymmetric septal [...] Legal Sex Male 5:01 AM DIRECTOR OF SPECIAL EDUCATION Gender Identity Male 12/18/2017 12:38 PM CDT [...] Body Mass Index 51.04 05/01/2018 8:44 AM DIRECTOR OF SPECIAL EDUCATION documented in this encounter Patient Instructions * [...] 12:00 AM CDT SHIRA DEL CID MD [address] [place] [address] [place] [address] Patient Name: CRISTI NIXON Date of : [...] septum measuring 17 mm, primarily of the ragyjxmr-qv-lse interventricular septum. There was no systolic anterior [...] 07/24/2018 11:49 AM Jef Walton M.D., MPHS, [facility] Fuel Pilot Engineerconstruction area manager JS/sll cc: SHIRA DEL CID MD / [...] documented as of this encounter Care Teams Scrap Baler Relationship Specialty Start Date End Date Shira Del Cid MD [address] [address] PCP - General 08/14/16 03/10/19 documented as of this encounter
--- OUTSIDE RECORDS SUMMARY | 2024-05-14 03:29 | XMS_ITS | Encounter Summary ---
Author Organization [facility] Healthcare Address [address] [place] [address] Care Team Providers Care Harness Fitter Name Role Phone Unavailable Primary Care Provider Unavailabl e Encounter Details Date Type Department Care Team (Late st Contact Info) Description 08/13/2016 10:22 AM CDT - 08/13/2016 11:59 PM CDT Hospital Encounter [facility] [phone] Astrid Campbell MD 1 [facility] [address] [place] [address] Discharge Disposition: Discharge to home or self care Social History Tobacco Use Types Packs/Day Years Used Date Smoking Tobacco: Never Assessed Sex and Gender Information Value Date Recorded Sex Assigned at Not on file Legal Sex Male 5:01 AM SERVICE BAR CASHIER Gender Identity Male 12/18/2017 12:38 PM CDT [...] 10:46 AM CDT) Cholesterol 174 <=199 mg/dL [facility] Comment: Interpretive Data Age less than [...] on 2013. Triglycerides 286(H) <=129 mg/dL [facility] Comment: Interpretive Data Age less than or [...] revised on 2013. HDL 25(L) >=44 mg/dL [facility] Comment: Interpretive Data Age less than or [...] on 2013. LDL, calculated 92 <=129 mg/dL [facility] Comment: Interpretive Data Age less than or [...] on 2013. Non-HDL Cholesterol 149(H) <=144 mg/dL [facility] Comment: Interpretive Data Age less than or [...] Campbell MD LAB BLOOD ORDERABLES Final Result [facility] [place] [address] * (ABNORMAL) Comprehensive metabolic panel (08/13/2016 10:46 AM CDT) Sodium 143 135 - 145 mmol/L [facility] Potassium, pl 4.5 3.3 - 4.9 mmol/L [facility] CO2 23 20 - 30 mmol/L [facility] BUN 14 8 - 25 mg/dL [facility] Glucose 117 70 - 199 mg/dL [facility] Comment: Interpretive Data Random glucose greater than or equal to 200 mg/dL with relevant clinical symptoms is diagnostic for diabetes when repeated on a subsequent day. Reference: Diabetes Care 2005;28:S37-S42. Current interpretive data was last revised on 2013. Creatinine 0.8 0.4 - 1.2 mg/dL [facility] Calcium 10.1 8.5 - 10.3 mg/dL [facility] Chloride 110 97 - 110 mmol/L [facility] [...] gap 11 2 - 15 mmol/L [facility] Blood specimen (specimen) 08/13/2016 10:46 AM CDT 08/13/2016 10:50 AM CDT Narrative [facility] - 08/13/2016 11:23 AM CDT Expiration Date: LAB Frequency Standing Order? No Client/Account Bill? No Client Account Number and Description: us Astrid Campbell MD LAB BLOOD ORDERABLES Final Result Performing Organization Address City/State/[facility] Co de Phone Number [facility] Department [place] [address] documented in this encounter Visit Diagnoses Not on filedocumented in this encounter
--- OUTSIDE RECORDS SUMMARY | 2024-05-14 03:29 | XMS_ITS | Encounter Summary ---
Author Organization [facility] Facility Care Team Providers Care Welder Apprentice Name Role Phone Unavailable Primary Care Provider Unavailabl e Encounter Details Date Type Department Care Team (Latest Contact Info) Description 07/27/2009 10:08 AM CDT - 07/27/2009 11:59 PM CDT Hospital Encounter [facility] Morbid obesity (HCC); Acquired acanthosis nigricans; Lack of expected normal physiological development Social History Tobacco Use Types Packs/Day Years Used Date Smoking Tobacco: Never Assessed Sex and Gender Information Value Date Recorded Sex Assigned at Not on file Legal Sex Male 5:01 AM SOLAR MAINTENANCE TECHNICIAN Gender Identity Male 12/18/2017 12:38 PM CDT Sexual Orientation Not on file documented as of this encounter Plan of Treatment Not on file documented as of this encounter Visit Diagnoses Diagnosis Morbid obesity (HCC) Morbid obesity Acquired acanthosis nigricans Lack of expected normal physiological development Lack of normal physiological development, unspecified documented in this encounter
--- OUTSIDE RECORDS SUMMARY | 2024-05-14 03:29 | XMS_ITS | Encounter Summary ---
Author Organization [facility] Healthcare Address [address] [place] [address] Care Team Providers Care Roller Skate Repairer Name Role Phone Etelvina Del Cid MD Primary Care Provider + Reason for Referral * MRI/CAT/PET Scan (Routine) - Closed Specialty Diagnoses / Procedures Referred By Marlaac t Referred To Contact Radiology Diagnoses Asymmetric septal hypertrophy Procedures Radiology Event Jef Walton MD Phone: tel: fax: [address] [address] Referral ID Status Reason Start Date Expiration Date Visits Re quested Visits Authorized [id number] Closed 05/02/2018 11/11/2019 1 1 LINE ENGINE ASSEMBLER Reason for Visit * Diagnostic Imaging (Routine) - Closed Specialty Diagnoses / Procedures Referred By Contac t Referred To Contact Radiology Diagnoses Asymmetric septal hypertrophy Procedures MRI Cardiac M&F WO Contrast MRI Cardiac M&F W WO Contrast Jef Walton MD Phone: tel: fax: [address] [address] Referral ID Status Reason Start Date Expiration Date Visits Re quested Visits Authorized [id number] Closed 04/22/2018 11/01/2019 1 1 Encounter Details Date Type Department Care Team (Latest Contact Info) Description 05/01/2018 8:03 AM GASOLINE ENGINE ASSEMBLER - 05/01/2018 11:59 PM GASOLINE ENGINE ASSEMBLER Hospital Encounter [facility] [address] [place] [address] Jef Walton MD [address] [facility] [address] [place] [address] Asymmetric septal hypertrophy (CMS/HCC) Discharge Disposition: Discharge to home or self care Social History Tobacco Use Types Packs/Day Years Used Date Smoking Tobacco: Never Smokeless Tobacco: Never Alcohol Use Standard Drinks/Week Comments No 0 (1 standard drink = 0.6 oz pur e alcohol) Sex and Gender Information Value Date Recorded Sex Assigned at Not on file Legal Sex Male 5:01 AM GASOLINE ENGINE ASSEMBLER Gender Identity Male 12/18/2017 12:38 PM CDT [...] Read Routine (OP Routine) 05/01/2018 10:16 AM GASOLINE ENGINE ASSEMBLER Asymmetric septal hypertrophy (CMS/HCC) MRI CARDIAC M&F WO CONTRAST Schedule Routine, Read Routine (OP Routine) 05/01/2018 10:16 AM GASOLINE ENGINE ASSEMBLER Asymmetric septal hypertrophy (CMS/HCC) POCT CREATININE FOR CONTRAST EVALUATION Routine Gen Lab 05/01/2018 9:07 AM GASOLINE ENGINE ASSEMBLER documented in this encounter Results * Radiology Event (05/01/2018 10:16 AM GASOLINE ENGINE ASSEMBLER) Anatomical Region Laterality Modality Magnetic Resonan ce 05/02/2018 2:16 PM GASOLINE ENGINE ASSEMBLER Impressions 05/02/2018 2:16 PM GASOLINE ENGINE ASSEMBLER IV infiltration. Ice pack placed on site. Patient given instructions to report to ED or call radiology if pain increased, redness developed, or numbness or tingling developed. Electronically signed by: Radames Balderas M.D. Narrative 05/02/2018 2:16 PM GASOLINE ENGINE ASSEMBLER EXAMINATION: General Radiology Event Report DATE of [...] Cardiac M&F WO Contrast (05/01/2018 10:16 AM GASOLINE ENGINE ASSEMBLER) Anatomical Region Laterality Modality Body N/A Magnetic Resonan ce 05/01/2018 11:2 4 AM GASOLINE ENGINE ASSEMBLER Impressions 05/03/2018 11:46 AM GASOLINE ENGINE ASSEMBLER Stable focal thickening of the proximal/mid interventricular septum without systolic anterior motion. ??Again, this likely represents a sigmoid septum which can be seen in the setting of hypertension. Dictated by: Giuliano Olmedo M.D. Electronically signed by: Marcos Jorgensen M.D. Narrative 05/03/2018 11:46 AM GASOLINE ENGINE ASSEMBLER EXAM: ?? Cardiac MRI Morphology and Function [...] creatinine for contrast evaluation (05/01/2018 9:07 AM GASOLINE ENGINE ASSEMBLER) Creatinine POC 0.9 0.7 - 1.3 mg/dL [facility] Blood specimen (specimen) 05/01/2018 9:07 AM GASOLINE ENGINE ASSEMBLER 05/01/2018 9:07 AM GASOLINE ENGINE ASSEMBLER Narrative [facility] - 05/01/2018 9:28 AM GASOLINE ENGINE ASSEMBLER us Jef Walton MD POINT OF CARE TEST ORDERABLES Final Result [facility] [place] [address] documented in this encounter Visit Diagnoses Diagnosis Asymmetric septal hypertrophy documented in this encounter Care Teams Roller Skate Repairer Relationship Specialty Start Date End Date Etelvina Del Cid MD [address] [address] PCP - General 08/14/16 03/10/19 documented as of this encounter
--- OUTSIDE RECORDS SUMMARY | 2024-05-14 03:29 | XMS_ITS | Encounter Summary ---
Author Organization [facility] Facility Care Team Providers Care Brass Cleaner Name Role Phone Unavailable Primary Care Provider Unavailabl e Encounter Details Date Type Department Care Team (Late st Contact Info) Description 02/27/2016 11:46 AM CDT - 02/27/2016 11:59 PM CDT Hospital Encounter [facility] Astrid Mcclain MD 1 [facility] [address] [place] [address] Other hypertrophic cardiomyopathy (CMS/HCC) Social History Tobacco Use Types Packs/Day Years Used Date Smoking Tobacco: Never Assessed Sex and Gender Information Value Date Recorded Sex Assigned at Not on file Legal Sex Male 5:01 AM BANQUET BARTENDER Gender Identity Male 12/18/2017 12:38 PM CDT [...]
--- OUTSIDE RECORDS SUMMARY | 2024-05-14 03:29 | XMS_ITS | Encounter Summary ---
Author Organization [facility] Address [address] [place] [address] Phone Care Team Providers Care Waiter/Waitress Third Class Name Role Phone Etelvina Del Cid MD Primary Care Provider + Reason for Visit * Reason Onset Date Comments Med Management 07/23/2018 Encounter Details Date Type Department Care Team (Late st Contact Info) Description 07/23/2018 Telephone [facility] Cardiology [address] [facility] 8th [place] [address] [place] [address] Jef Walton MD [address] [facility] [place] [address] [place], [place] [id number] Med Management Social History Tobacco Use Types Packs/Day Years Used Date Smoking Tobacco: Never Smokeless Tobacco: Never Alcohol Use Standard Drinks/Week Comments No 0 (1 standard drink = 0.6 oz pur e alcohol) Sex and Gender Information Value Date Recorded Sex Assigned at Not on file Legal Sex Male 5:01 AM E M ASSEMBLER Gender Identity Male 12/18/2017 12:38 PM CDT Sexual Orientation Not on file documented as of this encounter Miscellaneous Notes * Telephone Encounter - Piedad Velez RN - 07/23/2018 12:16 PM CDT Correct pharmacy is [facility] [phone]. Informed pharmacist Dr. Walton increased indapamide to 2.5mg qd. She has no further questions. * Telephone Encounter - Tye Burroughs - 07/23/2018 12:08 PM CDT KIRIT REQ CALL BACK REGARDING DOSAGE OF INDAPAMIDE, PLS CALL documented in this encounter Plan of Treatment Not on file documented as of this encounter Visit Diagnoses Not on filedocumented in this encounter Care Teams Waiter/Waitress Third Class Relationship Specialty Start Date End Date Etelvina Del Cid MD [address] [address] PCP - General 08/14/16 03/10/19 documented as of this encounter
--- OUTSIDE RECORDS SUMMARY | 2024-05-14 03:29 | XMS_ITS | Encounter Summary ---
Author Organization [facility] Healthcare Address [address] [place] [address] Care Team Providers Care Assembler Equipment Name Role Phone Etelvina Del Cid MD Primary Care Provider + Encounter Details Date Type Department Care Team (Late st Contact Info) Description 04/24/2018 Orders Only Radiology [address] [place] [address] [facility] [address] [place] [address] Social History Tobacco Use Types Packs/Day Years Used Date Smoking Tobacco: Never Smokeless Tobacco: Never Alcohol Use Standard Drinks/Week Comments No 0 (1 standard drink = 0.6 oz pur e alcohol) Sex and Gender Information Value Date Recorded Sex Assigned at Not on file Legal Sex Male 5:01 AM RECREATION THERAPY AIDES TEACHER Gender Identity Male 12/18/2017 12:38 PM CDT Sexual Orientation Not on file documented as of this encounter Plan of Treatment Not on file documented as of this encounter Visit Diagnoses Not on filedocumented in this encounter Care Teams Assembler Equipment Relationship Specialty Start Date End Date Etelvina Del Cid MD [address] [address] PCP - General 08/14/16 03/10/19 documented as of this encounter
--- OUTSIDE RECORDS SUMMARY | 2024-05-14 03:29 | XMS_ITS | Encounter Summary ---
Author Organization [facility] Facility Care Team Providers Care Oracle Bpm Consultant Name Role Phone Unavailable Primary Care Provider Unavailabl e Encounter Details Date Type Department Care Team (Latest Contact Info) Description 03/28/2010 2:48 PM GOLF CART MECHANIC - 03/28/2010 11:59 PM GOLF CART MECHANIC Hospital Encounter [facility] Dietary counseling and surveillance; Obesity; Body mass index, pediatric, greater than or equal to 95th percentile for age Social History Tobacco Use Types Packs/Day Years Used Date Smoking Tobacco: Never Assessed Sex and Gender Information Value Date Recorded Sex Assigned at Not on file Legal Sex Male 5:01 AM GOLF CART MECHANIC Gender Identity Male 12/18/2017 12:38 PM [...]
--- OUTSIDE RECORDS SUMMARY | 2024-05-14 03:29 | XMS_ITS | Encounter Summary ---
Author Organization [facility] Facility Care Team Providers Care Hub Cutter Name Role Phone Unavailable Primary Care Provider Unavailabl e Encounter Details Date Type Department Care Team (Late st Contact Info) Description 03/03/2010 4:54 PM CDT - 03/03/2010 11:59 PM CDT Hospital Encounter [facility] Haris Ingram MD [address] [place] [address] [place] [phone] Elevated blood-pressure reading without diagnosis of hypertension; Dysmetabolic syndrome X Social History Tobacco Use Types Packs/Day Years Used Date Smoking Tobacco: Never Assessed Sex and Gender Information Value Date Recorded Sex Assigned at Not on file Legal Sex Male 5:01 AM INTELLIGENCE ANALYST Gender Identity Male 12/18/2017 12:38 PM [...]
--- OUTSIDE RECORDS SUMMARY | 2024-05-14 03:29 | XMS_ITS | Encounter Summary ---
Author Organization [facility] Address [address] [place] [address] Phone Care Team Providers Care Tilt Tray Driver Name Role Phone Etelvina Del Cid MD Primary Care Provider + Encounter Details Date Type Department Care Team (Late st Contact Info) Description 04/22/2018 Telephone [facility] Cardiology [address] [facility] Advanced Medicine [address]th [place] [address] [place] [address] Jef Walton MD [address] [facility] [address] [place], [place] [id number] Social History Tobacco Use Types Packs/Day Years Used Date Smoking Tobacco: Never Smokeless Tobacco: Never Alcohol Use Standard Drinks/Week Comments No 0 (1 standard drink = 0.6 oz pur e alcohol) Sex and Gender Information Value Date Recorded Sex Assigned at Not on file Legal Sex Male 5:01 AM ENGLISH LANGUAGE LEARNER TUTOR Gender Identity Male 12/18/2017 12:38 PM CDT Sexual Orientation Not on file documented as of this encounter Miscellaneous Notes * Telephone Encounter - Shannen Turner - 04/22/2018 1:41 PM ENGLISH LANGUAGE LEARNER TUTOR Aurelioay ISH LANGUAGE LEARNER TUTOR * Telephone Encounter - Piedad Velez RN - 04/22/2018 12:28 PM ENGLISH LANGUAGE LEARNER TUTOR I placed an order for Cardiac MR and spoke to centralized scheduling. Pt scheduled for 05/01 at 9am. No need to schedule or call pt!! Thanks. ISH LANGUAGE LEARNER TUTOR documented in this encounter Plan of Treatment Not on file documented as of this encounter Visit Diagnoses Not on filedocumented in this encounter Care Teams Tilt Tray Driver Relationship Specialty Start Date End Date Etelvina Del Cid MD [address] [place] [address] PCP - General 08/14/16 03/10/19 documented as of this encounter
--- OUTSIDE RECORDS SUMMARY | 2024-05-14 03:29 | XMS_ITS | Encounter Summary ---
Author Organization [facility] Facility Care Team Providers Care Fitness Sales Consultant Name Role Phone Unavailable Primary Care Provider Unavailabl e Encounter Details Date Type Department Care Team (Late st Contact Info) Description 03/07/2010 4:44 PM CDT - 03/07/2010 11:59 PM CDT Hospital Encounter [facility] Etelvina Del Cid MD [address] [place] [id number] Headache; Other diseases of nasal cavity and sinuses Social History Tobacco Use Types Packs/Day Years Used Date Smoking Tobacco: Never Assessed Sex and Gender Information Value Date Recorded Sex Assigned at Not on file Legal Sex Male 5:01 AM PARKING RAMP ATTENDANT Gender Identity Male 12/18/2017 12:38 PM CDT Sexual Orientation Not on file documented as of this encounter Plan of Treatment Not on file documented as of this encounter Visit Diagnoses Diagnosis Headache Other diseases of nasal cavity and sinuses documented in this encounter
--- OUTSIDE RECORDS SUMMARY | 2024-05-14 03:29 | XMS_ITS | Encounter Summary ---
Author Organization [facility] Address [address] [place] [address] Care Team Providers Care Repairer Hairspring Name Role Phone Etelvina Del Cid MD Primary Care Provider + Encounter Details Date Type Department Care Team (Latest Contact Info) Description 07/10/2017 10:39 AM QUALITY ASSURANCE CALIBRATOR - 07/10/2017 11:59 PM QUALITY ASSURANCE CALIBRATOR Hospital Encounter [facility]IM [phone] Jef Walton MD [address] [address] Discharge Disposition: Discharge to home or self care Social History Tobacco Use Types Packs/Day Years Used Date Smoking Tobacco: Never Sex and Gender Information Value Date Recorded Sex Assigned at Not on file Legal Sex Male 5:01 AM QUALITY ASSURANCE CALIBRATOR Gender Identity Male 12/18/2017 12:38 PM CDT [...] A1C Routine Gen Lab 07/10/2017 10:50 AM QUALITY ASSURANCE CALIBRATOR LIPID PANEL Routine Gen Lab 07/10/2017 10:50 AM QUALITY ASSURANCE CALIBRATOR COMPREHENSIVE METABOLIC PANEL Routine Gen Lab 07/10/2017 10:50 AM QUALITY ASSURANCE CALIBRATOR DISCHARGE LABORATORY CUMULATIVE REPORT 07/10/2017 12:00 AM QUALITY ASSURANCE CALIBRATOR documented in this encounter Results * (ABNORMAL) Lipid panel (07/10/2017 10:50 AM QUALITY ASSURANCE CALIBRATOR) Cholesterol 157 30 - 200 mg/dL [facility] [...] Triglycerides 309(H) 0 - 150 mg/dL [facility] Comment: Interpretive Data Desirable: ? < 150 mg/dL Borderline High: ? 150 - 199 mg/dL High: ?200 - 499 mg/dL Very High: ? > or = 499 mg/dL Literature Reference: See Cholesterol Current interpretive data was last revised on 2015. HDL 26(L) >=40 mg/dL [facility] Comment: Interpretive Data Less than 40 mg/dL [...] revised on 2015. Non-HDL Cholesterol 131 mg/dL [facility] Comment: Interpretive Data When triglycerides are >200 mg/dL, non-HDL C is a secondary target of therapy, with a goal 30 mg/dL higher than the identified LDL-C goal. Reference: ??See Cholesterol Reference. Current interpretive data was last revised 2015. Blood specimen (specimen) 07/10/2017 10:50 AM QUALITY ASSURANCE CALIBRATOR 07/10/2017 11:11 AM QUALITY ASSURANCE CALIBRATOR Narrative [facility] - 07/10/2017 11:53 AM QUALITY ASSURANCE CALIBRATOR us Jef Walton MD LAB BLOOD ORDERABLES Final Re sult [facility] Department [place] [address] * (ABNORMAL) Comprehensive metabolic panel (07/10/2017 10:50 AM QUALITY ASSURANCE CALIBRATOR) Sodium 142 135 - 145 mmol/L [facility] Potassium, pl 4.5 3.3 - 4.9 mmol/L [facility] Comment:Hemolyzed; (+++); po tassium value may be falsely elevated by as much as 0.6 - 1.0 mmol/L. Suggest redraw and reanalysis. CO2 28 22 - 32 mmol/L [facility] BUN 17 8 - 25 mg/dL [facility] Glucose 107 70 - 199 mg/dL [facility] Comment: Interpretive Data Fasting glucose >/= 126 [...] 2017. Creatinine 0.95 0.80 - 1.30 mg/dL [facility] Calcium 9.8 8.5 - 10.3 mg/dL [facility] Chloride 104 97 - 110 mmol/L [facility] Albumin 4.5 3.5 - 5.0 g/dL [facility] AST 59(H) 10 - 50 Units/L [facility] Comment:Hemolyzed; result ma y be falsely elevated. ALT 89(H) 7 - 55 Units/L [facility] Alk phos 88 70 - 260 Units/L [facility] Bilirubin, total 0.3 0.1 - 1.2 mg/dL [facility] Protein, pl 7.7 6.5 - 8.5 g/dL [facility] Anion gap 10 2 - 15 mmol/L [facility] Blood specimen (specimen) 07/10/2017 10:50 AM QUALITY ASSURANCE CALIBRATOR 07/10/2017 11:11 AM QUALITY ASSURANCE CALIBRATOR Narrative [facility] - 07/10/2017 11:53 AM QUALITY ASSURANCE CALIBRATOR us Jef Walton MD LAB BLOOD ORDERABLES Final Re sult [facility] Department [place] [address] * Hemoglobin A1c (07/10/2017 10:50 AM QUALITY ASSURANCE CALIBRATOR) Hgb A1C 5.2 4.0 - 5.6 % [facility] Estimated Average Glucose 103 mg/dL [facility] Comment: The ADA recommends reporting an estimated Average Glucose (eAG) with all Hemoglobin A1c results using the equation derived from a study of 507 normal and diabetic adults. ??Minority populations were underrepresented and children were not included. ?? (Diabetes Care 31:2954-7057, 2008). ??The eAG is not equivalent to a fasting glucose. Blood specimen (specimen) 07/10/2017 10:50 AM QUALITY ASSURANCE CALIBRATOR 07/10/2017 11:11 AM QUALITY ASSURANCE CALIBRATOR Narrative [facility] - 07/10/2017 11:40 AM QUALITY ASSURANCE CALIBRATOR us Jef Walton MD LAB BLOOD ORDERABLES Final Re sult [facility] Department [place] [address] * DISCHARGE LABORATORY CUMULATIVE REPORT (07/10/2017 12:00 AM QUALITY ASSURANCE CALIBRATOR) Narrative 07/10/2017 12:00 AM QUALITY ASSURANCE CALIBRATOR Ordered by an unspecified provider. us Historical Provider LAB BLOOD ORDERABLES Melina l Result documented in this encounter Visit Diagnoses Not on filedocumented in this encounter Care Teams Repairer Hairspring Relationship Specialty Start Date End Date Etelvina Del Cid MD [address] [place] [address] PCP - General 08/14/16 03/10/19 documented as of this encounter
--- OUTSIDE RECORDS SUMMARY | 2024-05-14 03:29 | XMS_ITS | Encounter Summary ---
Author Organization [facility] Address [address] [place] [address] Phone Care Team Providers Care Steel Roller Name Role Phone Etelvina Del Cid MD Primary Care Provider + Encounter Details Date Type Department Care Team (Late st Contact Info) Description 04/16/2018 Telephone [facility] Cardiology [address] [facility] Advanced Medicine 8th [place] [address] [place] [address] Jef Walton MD [address] [facility] [address] [place], [place] [id number] Social History Tobacco Use Types Packs/Day Years Used Date Smoking Tobacco: Never Smokeless Tobacco: Never Alcohol Use Standard Drinks/Week Comments No 0 (1 standard drink = 0.6 oz pur e alcohol) Sex and Gender Information Value Date Recorded Sex Assigned at Not on file Legal Sex Male 5:01 AM WASTEWATER PROJECT MANAGER Gender Identity Male 12/18/2017 12:38 PM CDT Sexual Orientation Not on file documented as of this encounter Miscellaneous Notes * Telephone Encounter - Piedad Velez RN - 04/16/2018 2:51 PM WASTEWATER PROJECT MANAGER A user error has taken place: encounter opened in error, closed for administrative reasons. EWATER PROJECT MANAGER documented in this encounter Plan of Treatment Not on file documented as of this encounter Visit Diagnoses Not on filedocumented in this encounter Care Teams Steel Roller Relationship Specialty Start Date End Date Etelvina Del Cid MD [address] [place] [address] PCP - General 08/14/16 03/10/19 documented as of this encounter
--- OUTSIDE RECORDS SUMMARY | 2024-05-14 03:29 | XMS_ITS | Encounter Summary ---
Author Organization [facility] Address [address] [place] [address] Phone Care Team Providers Care Investigation Division Lieutenant Name Role Phone Etelvina Del Cid MD Primary Care Provider + Encounter Details Date Type Department Care Team (Late st Contact Info) Description 04/16/2018 11:30 AM QUALITY OFFICER Office Visit [facility] Cardiology [address] [facility] Advanced Medicine 8th [place] [address] [place] [address] Jef Walton MD [address] [facility] [address] [place] [address] Asymmetric septal hypertrophy (CMS/HCC) (Primary Dx); Benign [...] file Legal Sex Male 5:01 AM QUALITY OFFICER Gender Identity Male 12/18/2017 12:38 PM CDT Sexual Orientation Not on file documented as of this encounter Last Filed Vital Signs Vital Sign Reading Time Taken Comments Blood Pressure 142/89 04/16/2018 11:13 AM QUALITY OFFICER Pulse 80 04/16/2018 11:13 AM QUALITY OFFICER Temperature 36.6 ??C (97.9 ??F) 04/16/2018 1 1:13 AM QUALITY OFFICER Respiratory Rate - - Oxygen Saturation 96% 04/16/2018 11: 13 AM QUALITY OFFICER Inhaled Oxygen Concentration - - Weight 212.8 kg (469 lb 3.2 oz) 018 11:13 AM QUALITY OFFICER Height - - Body Mass Index 51.54 10/10/2017 8:06 AM CDT documented in this encounter Patient Instructions * Patient Instructions* Jef Walton MD - 04/16/2018 11:30 AM QUALITY OFFICER Go Try It On for drug prices Start indapamide 1.25 mg once daily for hypertension. Continue carvedilol 25 mg twice daily. Monitor your blood pressure, call in 2 weeks. Be careful to limit salt intake. I will discuss cardiac MRI with our radiologists. ITY OFFICER ITY OFFICER ITY OFFICER documented in this encounter Ordered Prescriptions Prescription [...] further assistance. Sincerely, Jef Walton MD, MPHS, [facility] Scrap Stripper Handeradicator Cardiovascular Division [facility] --- Please note: This note was generated in part using voice-recognition software and may contain flag decorator errors. ITY OFFICER documented in this encounter Plan of Treatment Not on file documented as of this encounter Visit Diagnoses Diagnosis Asymmetric septal hypertrophy- Primary Benign essential hypertension Essential hypertension, benign Morbid obesity with BMI of 50.0-59.9, adult (HCC) documented in this encounter Care Teams Investigation Division Lieutenant Relationship Specialty Start Date End Date Etelvina Del Cid MD [address] [place] [address] PCP - General 08/14/16 03/10/19 documented as of this encounter
--- OUTSIDE RECORDS SUMMARY | 2024-05-14 18:49 | XMS_ITS | Clinical Summary ---
Author Organization [facility] Address [facility] [place] [facility] [place] [address] [place] [address] Care Team Providers Care Body Cleaner Name Role Phone None, Provider MD Primary [...] Insurance [employer] Care Teams Body Cleaner Relationship Specialty Start Date End Date None, Provider, PCP - General 11/29/18
--- OUTSIDE RECORDS SUMMARY | 2024-05-14 18:49 | XMS_ITS | Referral Summary ---
Author Organization [facility] Address [address] [facility] [place] [address] Care Team Providers Care Gang Bore Operator Name Role Phone Unavailable Primary Care Provider Unavailabl e Source Comments [facility],non-owned Affiliates and Associated Physician Practices is amultiple site organization consisting of ambulatory clinics and hospital sitesin [place], [place], [place] and [place]. This disclosure is being madepursuant to the Care Everywhere program and may not contain all information available regarding this patient. Last updated 18.[facility] Allergies No known active allergies Medications * [...] CDT Plan of Treatment Not on file [id number] N Workers Comp Employer 1995 [address] [place] [address] Geraldo Velez Workers Comp Self 1995 [address] [place] [address]
--- OUTSIDE RECORDS SUMMARY | 2024-05-14 18:49 | XMS_ITS | Clinical Summary ---
Author Organization [facility] Address [address] [facility] [place] [address] Care Team Providers Care Tunnel Heading Supervisor Name Role Phone Unavailable Primary Care Provider Unavailabl e Source Comments [facility],non-owned Affiliates and Associated Physician Practices is amultiple site organization consisting of ambulatory clinics and hospital sitesin [place], [place], [place] and [place]. This disclosure is being madepursuant to the Care Everywhere program and may not contain all information available regarding this patient. Last updated 18.[employer] [facility] Allergies No known active allergies Medications * [...] on patient's age to complete this topic [id number] N Workers Comp Employer 1995 [address] [place] [address] Geraldo Velez Workers Comp Self 1995 [address] [place] [address]
--- OUTSIDE RECORDS SUMMARY | 2024-05-14 18:49 | XMS_ITS | Encounter Summary ---
Author Organization [facility] Address [facility] [place] [address] [place] [address] Care Team Providers Care Stem Assembler Name Role Phone None, Provider Primary Care Provider Unavaila ble Reason for Referral * Imaging (Emergency) - Closed Specialty Diagnoses / Procedures Referred By Contac t Referred To Contact RADIOLOGY Procedures CT CERV SPINE WO CON Lydia Ortiz NP Referral ID Status Reason Start Date Expiration Date Visits Re quested Visits Authorized [id number] Closed 11/29/2018 12/31/2019 1 1 * Imaging (Emergency) - Closed Specialty Diagnoses / Procedures Referred By Contac t Referred To Contact RADIOLOGY Procedures CT HEAD WO CON Lydia Ortiz NP Referral ID Status Reason Start Date Expiration Date Visits Re quested Visits Authorized [id number] Closed 11/29/2018 12/31/2019 1 1 Reason for Visit * Reason Comments Syncope Neck Pain Encounter Details Date Type Department Care Team (Late st Contact Info) Description 11/29/2018 7:21 PM CDT - 11/29/2018 10:09 PM CDT Emergency [facility] [place] [address] Syncope; Neck Pain Discharge Disposition: Home or [...] sent through Care Everywhere. * Syncope (Fainting) (Zimbabwean) documented in this encounter ED Notes * [...] 11/29/18 ECG [address] [facility] [address] Test Date: 2018-11-29 Pat Name: CRISTI VELEZ Department: Room: [id number] Gender: Male Curb Setter Helper: roberta : 1995 Requested By: LYDIA ORTIZ Order Number: [id number] Reading MD: Measurements Intervals Maxwell Rate: 89 P: 31 KS: 184 QRS: 20 QRSD: 113 T: 12 [...] CLEAN CATCH COLOR YELLOW TRANSPARENCY CLEAR Specific [place] (U) 1.023 1.001 - 1.030 U PH [...] SPINE WO CON Final Result by User, [id number] (11/29 2124) Examination: CT Cervical Spine Without [...] HEAD WO CON Final Result by User, [id number] (11/29 2122) EXAMINATION: CT of the head [...] ventricles and extra-axial/subarachnoid spaces are unremarkable. The woflf-white matter differentiation is grossly preserved. There is [...] PM CDT) 11/29/2018 9:14 PM CDT Narrative [facility] - 11/30/2018 8:20 AM CDT ?[place] ? [address] [place] ? Test Date: ?2018-11-29 Pat Name: ? CRISTI VELEZ ? Department: ? Room: ? [id number] Gender: ? Male ? Curb Setter Helper: ?? ev : ?1995 ? Requested By: LYDIA BONDS Order Number: [id number] ? Reading MD: ?? Blair Muller ? Measurements Intervals ?Maxwell ? Rate: ? 89 ? P: ?31 KS: ? 184 ?QRS: ?20 QRSD: ? 113 ?T: ?12 QT: ? 367 ? QTc: ?447 ? Interpretive Statements SINUS RHYTHM IVCD. INFERIOR MYOCARDIAL INFARCTION, PROBABLY OLD No previous ECG available for comparison No ischemic changes CRITICAL ALERT ISSUED ON 11-29-2018 21:21:55 Procedure Note Blair Muller MD - 11/30/[address] [facility] [facility] Test Date: 2018-11-29 Pat Name: CRISTI VELEZ Department: Room: [id number] Gender: Male Curb Setter Helper: ev : 1995 Requested By: SONU Order Number: [id number] Reading MD: Blair Muller Measurements Intervals Maxwell Rate: 89 P: 31 KS: 184 QRS: 20 QRSD: 113 T: 12 QT: 367 QTc: 447 Interpretive Statements SINUS RHYTHM IVCD. INFERIOR MYOCARDIAL INFARCTION, PROBABLY OLD No previous ECG available for comparison No ischemic changes CRITICAL ALERT ISSUED ON 11-29-2018 21:21:55 Lydia Ortiz ONLINE PRODUCER ECG ORDERABLES Final Re sult [facility] RAD * CT CERV SPINE WO CON [...] MD, 11/29/2018 9:22 PM us Lydia Ortiz ONLINE PRODUCER CT Final Re sult * CT HEAD [...] Ardon MD, 11/29/2018 9:19 PM Lydia Ortiz ONLINE PRODUCER CT Final Re sult * TROPONIN, QUANT (11/29/2018 8:38 PM CDT) TROPONIN I <0.015 <0.045 ng/mL. 11/29/2018 9:21 PM CDT [facility] Comment: HIGH DOSES OF BIOTIN MAY INTERFERE WITH THIS TEST RESULT. CORRELATION TO CLINICAL HISTORY AND PRESENTATION RECOMMENDED. 11/29/2018 8:38 PM CDT Lydia Ortiz ONLINE PRODUCER LABORATORY Final Re sult [facility] [address] [place] [address], [place] [phone] * URINALYSIS WI REFLEX TO CULTURE (11/29/2018 8:38 PM CDT) SPECIMEN TYPE URINE CLEAN CATCH 11/29/2018 8:31 PM CDT [facility] COLOR (U) YELLOW 11/29/2018 9:01 PM CDT [facility] TRANSPARENCY CLEAR 11/29/2018 9:01 PM CDT [facility] SPECIFIC GRAVITY (U) 1.023 1.001 - 1.030 11/29/2018 9:01 PM CDT [facility] U PH 6.0 5.0 - 9.0 11/29/2018 9:01 PM CDT [facility] LEUKOCYTES (U) NEGATIVE NEGATIVE 11/29/2018 9:01 PM CDT [facility] NITRITES NEGATIVE NEGATIVE 11/29/2018 9:01 PM CDT [facility] PROTEIN (U) NEGATIVE <30 MG/DL 11/29/2018 9:01 PM CDT [facility] URINE GLUCOSE NEGATIVE NEGATIVE MG/DL 11/29/2018 9:01 PM CDT [facility] KETONES MG/DL (U) NEGATIVE NEGATIVE MG/DL 11/29/2018 9:01 PM CDT [facility] UROBILINOGEN NEGATIVE NEGATIVE MG/DL 11/29/2018 9:01 PM CDT [facility] BILIRUBIN (U) NEGATIVE NEGATIVE MG/DL 11/29/2018 9:01 PM CDT [facility] BLOOD (U) NEGATIVE NEGATIVE 11/29/2018 9:01 PM CDT [facility] CULTURE & SENSITIVITY INDICATED? CULTURE IS NOT INDICATED 11/29/2018 9:01 PM CDT [facility] SQUAMOUS EPITHELIALS MODERATE /LPF 11/29/2018 9:01 PM CDT [facility] WBC/HPF <1 <6 /HPF 11/29/2018 9:01 PM CDT [facility] RBC/HPF <1 <6 /HPF 11/29/2018 9:01 PM CDT [facility] URINE SPECIMEN OBTAINED BY CLEAN CATCH PROCEDURE / Unknown 11/29/2018 8:38 PM CDT Lydia Ortiz ONLINE PRODUCER URINE ORDERABLES Final R esult [facility] [address] [place] [address], [place] [phone] * (ABNORMAL) CK (CPK) (11/29/2018 8:38 PM CDT) CPK 383(H) 35 - 232 U/L 11/29/2018 9:15 PM CDT [facility] 11/29/2018 8:38 PM CDT us Lydia SunshineBonds ONLINE PRODUCER LABORATORY Final Re sult [facility] [address] [place] [address], [place] [phone] * (ABNORMAL) COMPREHENSIVE METABOLIC PANEL (11/29/2018 8:38 PM CDT) Pathologist [facility] GLUCOSE 130(H) 70 - 99 MG/DL 11/29/2018 9:15 PM CDT [facility] BUN 12 7 - 18 MG/DL 11/29/2018 9:15 PM CDT [facility] CREATININE S/P/B 1.24 0.7 - 1.3 MG/DL 11/29/2018 9:15 PM CDT [facility] SODIUM S/P/B 142 136 - 145 MMOL/L 11/29/2018 9:15 PM CDT [facility] POTASSIUM S/P/B 4.0 3.5 - 5.1 MMOL/L 11/29/2018 9:15 PM CDT [facility] CHLORIDE S/P/B 110(H) 100 - 108 MMOL/L 11/29/2018 9:15 PM CDT [facility] CO2 24.3 21 - 32 MMOL/L 11/29/2018 9:15 PM CDT [facility] CALCIUM S/P/B 8.9 8.5 - 10.1 MG/DL 11/29/2018 9:15 PM CDT [facility] BILIRUBIN TOTAL S/P/B 0.4 0.2 - 1.2 MG/DL 11/29/2018 9:15 PM CDT [facility] TOTAL PROTEIN S/P/B 7.8 6.4 - 8.2 G/DL 11/29/2018 9:15 PM CDT [facility] ALBUMIN S/P/B 4.0 3.4 - 5.0 G/DL 11/29/2018 9:15 PM CDT [facility] AST 61(H) 15 - 37 U/L 11/29/2018 9:15 PM CDT [facility] ALT 121(H) 16 - 60 U/L 11/29/2018 9:15 PM CDT [facility] ALKALINE PHOSPHATASE S/P/B 85 50 - 136 U/L 11/29/2018 9:15 PM CDT [facility] ANION GAP 7.7 5 - 15 MMOL/L 11/29/2018 9:15 PM CDT [facility] BUN CREATININE RATIO 9.7 6 - 26 11/29/2018 9:15 PM T [facility] A/G RATIO 1.1 1.0 - 2.0 RATIO 11/29/2018 9:15 PM CDT [facility] EGFR NON-AFR. AMER. 83(L) >90 ML/MIN/1.7 3 M2 11/29/2018 9:15 PM T [facility] EGFR AFR. AMER. >90 >90 ML/MIN/1.7 3 M2 11/29/2018 9:15 PM T [facility] Comment: NOTE: eGFR is not calculated for patients <18 years of age. This is an estimated GFR (CKD EPI) and should not be used for calculating drug doses. 11/29/2018 8:38 PM CDT us Lydia Ortiz NP LABORATORY Final Re sult [facility] [address] [place] [address], [place] [phone] * CBC W/DIFF AUTOMATED (11/29/2018 8:38 PM CDT) WBC 6.1 4.5 - 13.0 x10'3/uL 11/29/2018 9:01 PM CDT [facility] RBC 5.25 4.70 - 6.10 x10'6/uL 11/29/2018 9:01 PM CDT [facility] HGB 15.1 14.0 - 18.0 G/DL 11/29/2018 9:01 PM CDT [facility] HCT 44.3 43.0 - 54.0 % 11/29/2018 9:01 PM CDT [facility] MCV 84.4 80.0 - 94.0 FL 11/29/2018 9:01 PM CDT [facility] MCH 28.8 27.0 - 31.0 PG 11/29/2018 9:01 PM CDT [facility] MCHC 34.1 32.0 - 36.0 G/DL 11/29/2018 9:01 PM CDT [facility] RDW 12.2 11.5 - 14.5 % 11/29/2018 9:01 PM CDT [facility] PLT 307 130 - 400 x10'3/uL 11/29/2018 9:01 PM CDT [facility] MPV 9.9 9.3 - 12.2 FL 11/29/2018 9:01 PM CDT [facility] DIFFERENTIAL TYPE AUTOMATED DIFFERENTIAL 11/29/2018 9:01 PM CDT [facility] NEUTROPHILS % 57.9 % 11/29/2018 9:01 PM CDT [facility] LYMPHOCYTES % 30.0 % 11/29/2018 9:01 PM CDT [facility] MONOCYTES % 7.9 % 11/29/2018 9:01 PM CDT [facility] EOSINOPHILS 3.5 % 11/29/2018 9:01 PM CDT [facility] BASOPHILS 0.5 % 11/29/2018 9:01 PM CDT [facility] IMMATURE GRANS % 0.2 % 11/30/19 19 9:01 PM CDT [facility] ABS. NEUTROPHILS TOTAL 3.52 1.80 - 8.00 x10'3/uL 11/29/2018 9:01 PM CDT [facility] ABS. LYMPHOCYTES 1.82 1.20 - 5.20 x10'3/uL 11/29/2018 9:01 PM CDT [facility] ABS. MONOCYTES 0.48 0.30 - 0.82 x10'3/uL 11/29/2018 9:01 PM CDT [facility] ABS. EOSINOPHILS 0.21 0.04 - 0.54 x10'3/uL 11/29/2018 9:01 PM CDT [facility] ABS. BASOPHILS 0.03 0.01 - 0.08 x10'3/uL 11/29/2018 9:01 PM CDT [facility] ABS. IMMATURE GRANULOCYTES 0.01 0.00 - 0.49 x10'3/uL 11/29/2018 9:01 PM CDT [facility] 11/29/2018 8:38 PM CDT us Lydia Ortiz ONLINE PRODUCER LABORATORY Final Re sult [facility] [address] [place] [address], documented in this encounter Visit Diagnoses Diagnosis [...] (New Bag - Prov ider: Viki Snider RN)126 (Infusion Stop Time - Provider: Viki Snider RN) documented in this encounter Care Teams Stem Assembler Relationship Specialty Start Date End Date None, Provider, PCP - General 11/29/18 documented as of this encounter
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
--- OUTSIDE RECORDS SUMMARY | 2024-05-14 18:49 | XMS_ITS | CONTINUITY OF CARE DOCUMENT ---
Author Name frankie david Address Unknown Organization [facility] Address [id number] [place] [address] [address] [place] [address] Phone [phone] Care Team Providers Care Weight Guesser Name Role Phone Daniel CROWE, Татьяна Unavailable Татьяна Sanchez MD Unavailable [phone] DAHLIA CROWE, AKANKSHA Angel Unavailable [phone] INSURANCE PROVIDERS Payer name Policy type / Coverage type [place] red constitution party ID [facility] Blue [facility] SELF PAY
--- OUTSIDE RECORDS SUMMARY | 2024-05-14 18:49 | XMS_ITS | Patient Health Summary ---
Author Organization [facility] Address [address] [place] [address] Care Team Providers Care Ragman Name Role Phone Unavailable Primary Care Provider Unavailabl e Note from [facility],non-owned Affiliates and Associated Physician Practices is amultiple site organization consisting of ambulatory clinics and hospital sitesin [place], [place], [place] and [place]. This disclosure is being madepursuant to the Care Everywhere program and may not contain all information available regarding this patient. Last updated 18.[facility] Allergies No known active allergies Medications * [...] were also obtained. All CT scans at [facility] are performed using dose optimization techniques as [...] were also obtained. All CT scans at [facility] are performed using dose optimization techniques as [...] brain was performed. All CT scans at [facility] are performed using dose optimization techniques as [...] brain was performed. All CT scans at [facility] are performed using dose optimization techniques as [...] - 106 mg/dL 10/22/2022 2:32 PM CDT -[facility] Specimen Type Cap Fingerstick 2022 2:32 PM CDT -[facility] Blood BLOOD SPECIMEN / Unknown 10/22/2022 2:25 PM CDT 10/22/2022 2:32 PM CDT Provider Unknown LAB - POINT OF CARE ORDERABLES [facility] [address] [place] [address]
--- OUTSIDE RECORDS SUMMARY | 2024-05-14 18:49 | XMS_ITS | Encounter Summary ---
Author Organization [facility] Address [address] [place] [address] [place] [address] Care Team Providers Care Area Development Manager Name Role Phone Unavailable Primary Care Provider Unavailabl e Encounter Details Date Type Department Care Team (Late st Contact Info) Description 09/18/2013 Abstract [facility] Emergency Room [address] [place] [address] Dequan Taylor Jr., MD [facility] [address] [address] Social History Tobacco Use Types [...]
--- OUTSIDE RECORDS SUMMARY | 2024-05-14 18:50 | XMS_ITS | Encounter Summary ---
Author Organization [facility] Address [address] [place] [address] Care Team Providers Care Security Flex Utility Officer Name Role Phone Unavailable Primary Care Provider Unavailabl e Encounter Details Date Type Department Care Team (Late st Contact Info) Description 02/11/2019 2:50 PM CDT Office Visit [facility] [address] [place] [address] Marci Sanchez MD [address] [place] [address] Social History Tobacco Use Types [...]
--- OUTSIDE RECORDS SUMMARY | 2024-05-14 18:50 | XMS_ITS | Clinical Summary ---
Author Organization [facility] Address [address] [place] [address] Phone Care Team Providers Care Metal Engraver Name Role Phone Unavailable Primary Care Provider [...]
== END 2024-05-07 12:06 | disposition home or self-care (01) ==
PROVIDERS: Emergency Provider Physician Assistant
DX: R10.84 Generalized abdominal pain (principal); R16.2 Hepatomegaly with splenomegaly, not elsewhere classified; I25.10 Atherosclerotic heart disease of native coronary artery without angina pectoris; I10 Essential (primary) hypertension; I34.1 Nonrheumatic mitral (valve) prolapse; E11.9 Type 2 diabetes mellitus without complications; Z79.4 Long term (current) use of insulin; Z79.899 Other long term (current) drug therapy
CPT/HCPCS: 36415; 74177; 80053; 81001; 83690; 85025; 96374; 99284; J1885; Q9967

== ENCOUNTER 2025-04-13 07:33 | Emergency (ER) | payer BC, SELFPAY ==
[2025-04-13 07:37] VITALS: BP 145/92; PULSE 79; RESP 14; TEMP 36.3; O2SAT 97
[2025-04-13 07:49] VITALS: TEMP 36.3
[2025-04-13 07:50] VITALS: O2SAT 97
[2025-04-13 08:06] LABS: Hematocrit 44.4 % (42.0-52.0); Hemoglobin 15.9 g/dL (14.0-18.0); Immature Granulocyte Percent A 0.6 % (0-0.5); Lymphocytes Absolute Auto 1.62 K/mm3 (0.9-3.2); Mean Corpuscular HGB Conc 35.8 g/dl (32-36); Mean Corpuscular Hemoglobin 29.9 pg (26-34); Mean Corpuscular Volume 83.6 fl (80-100); Nucleated Red Blood Cells Absolute Auto 0.000 K/mm3 (0.0-0.012); Nucleated Red Blood Cells Perc 0.0 % (0.0-0.2); Platelet Count Result 258 k/mm3 (150-375); Red Blood Count 5.31 M/mm3 (4.6-6.20); White Blood Count 5.3 K/mm3 (4.5-10.0)
[2025-04-13 08:09] LABS: Add Urine Microscopic? NO; Appearance Urine Clear (Clear); Glucose Urine UA 3+ mg/dL (Negative); Leukocyte Esterase Ur Negative LEU/UL (Negative); Nitrate Urine Negative (Negative); Specific Grav Ur 1.034 (1.001-1.035)
[2025-04-13 08:29] LABS: Alanine Aminotransferase 65 U/L (6-50); Albumin Level 4.3 g/dL (3.5-5.1); Alkaline Phosphatase 138 U/L (38-126); Anion Gap 8 mmol/L (4-12); Aspartate Amino Transferase 46 U/L (17-59); Bilirubin,Total 0.6 mg/dL (0.2-1.3); Blood Urea Nitrogen 16 mg/dL (9-20); Calcium 9.3 mg/dL (8.4-10.2); Carbon Dioxide 24 mmol/L (22-30); Chloride 103 mmol/L (98-107); Estimated CRCL calculation 254 ml/min; Estimated Glomerular Filt Rate > 60; Glucose 378 mg/dL (65-110); Magnesium 1.7 mg/dL (1.6-2.3); Potassium 4.3 mmol/L (3.4-5.0); Sodium 135 mmol/L (137-145); Total Protein 7.3 g/dL (6.3-8.2)
[2025-04-13 09:11] VITALS: BP 148/98; PULSE 80; RESP 14; O2SAT 97
[2025-04-13 09:47] LABS: Hemoglobin A1C 10.0 % (<5.7)
[2025-04-13] MEDS: SODIUM CHLORIDE 0.9% IV 1,000 ML 999 ML IV CONT ×2 (09:54)
--- NOTE | 2025-04-13 10:30 | ED.RECABL ---
HPI - Recheck/Abnormal Lab/Rx General Chief Complaint: Recheck/Abnormal Lab/Rx Stated Complaint: high bs Time Seen by Provider: 04/13/25 09:02 Source: patient Mode of arrival: ambulatory Limitations: no limitations History of Present Illness HPI narrative: Patient is a 29-year-old male who presents the ED with report of hyperglycemia. Patient reports he currently follows with his primary care doctor for his diabetic care. Had previously seen an check writer salesperson with [employer], but they have since retired. He states he takes his long-acting and short-acting insulin twice per day at the same time. He states he took 90 units of his U 500 insulin as well as short-acting insulin this morning. Checked his blood sugar two hours later and it was elevated into the 400s. Prompted here for further evaluation. He does report polyuria and polydipsia, particularly when his blood sugars are elevated. Otherwise states he feels at his baseline. Denies recent illness, fevers, pain. Related Data Home Medications ?Medication ?Instructions ?Recorded ?Confirmed ?Last Taken ?Type carvedilol 25 mg tablet 25 mg PO BID 05/22/19 09/10/23 Unknown History indapamide 2.5 mg tablet 2.5 mg PO DAILY 05/22/19 09/10/23 Unknown History insulin regular hum U-500 conc 500 1 unit subcut DIRECTED 05/22/19 09/10/23 Unknown History unit/mL(3 mL) subcut pen (Humulin R U-500 (Conc) Insulin Kwikpen) lisinopril 5 mg tablet 5 mg PO DAILY 05/22/19 09/10/23 Unknown History duloxetine 60 mg capsule,delayed 60 mg PO DAILY 06/06/21 09/10/23 Unknown History release Allergies Allergy/AdvReac Type Severity Reaction Status Date / Time magnesium AdvReac Agitated Verified 04/13/25 07:57 Review of Systems Review of Systems: All systems reviewed & are unremarkable except as noted in HPI. All systems reviewed & are unremarkable except as noted in HPI and below PMFSH Past Medical History Medical History (Updated 04/13/25 @ 10:37 by Kaley Sanders PA-C) Diabetes HTN (hypertension) CAD (coronary artery disease) MVP (mitral valve prolapse) Social History Social History Smoking status: Never smoker Alcohol intake: current Alcohol use details: occasional Substance use: never Exam Narrative: GENERAL: Well appearing, morbidly obese with BMI of 43.8, non-toxic, in no acute distress. HEAD: Normocephalic, atraumatic. RESPIRATORY: Airway patent, respirations nonlabored. Clear to auscultation bilaterally, no rales, rhonchi, wheezing. CARDIOVASCULAR: Regular rate and rhythm without murmurs, rubs, or gallops. ABDOMINAL: Soft, nontender, nondistended. Normoactive BS. MUSCULOSKELETAL: Moves all extremities. No gross deformities. SKIN: Warm, dry, normal color. NEURO: A&O X3. Speech clear. Cranial nerves II-XII grossly intact. Steady gait. No ataxic movements. PSYCHIATRIC: Appropriate mood and affect. Normal interaction. Course Vital Signs Vital signs: Vital Signs Temperature 97.4 F L 04/13/25 07:37 Pulse Rate 79 04/13/25 07:37 Respiratory Rate 14 04/13/25 07:37 Blood Pressure 145/92 H 04/13/25 07:37 Pulse Oximetry 97 04/13/25 07:37 Oxygen Delivery Room Air 04/13/25 07:37 Temperature 97.4 F L 04/13/25 07:49 Pulse Rate 80 04/13/25 12:27 Respiratory Rate 16 04/13/25 12:27 Blood Pressure 132/78 04/13/25 12:27 Pulse Oximetry 97 04/13/25 11:02 Oxygen Delivery Room Air 04/13/25 07:37 [facility] Narrative Medical decision making narrative: Patient presented to ED with hyperglycemia despite taking his normal insulin this morning. Vital signs stable upon arrival. Patient otherwise denies any acute complaints. Blood sugar upon arrival 359. Laboratory studies were obtained. No evidence of DKA. Normal bicarb. Normal anion gap. Blood sugar on CMP 378. Trace ketones on urinalysis, but again is not meeting criteria for DKA/acidosis at this time. Hemoglobin A1c is 10%. Patient given 2 L of fluid in the ED. Repeat blood sugar 264 Patient does report that his blood sugars are typically in the 200s. Discussed case with Dr. Ochoa, patient's PCP, recommended for patient to check BG 4 times a day, increase long acting insulin to 100U BID, novolog 20U TID with meals, call office for f/u. Discussed these recommendations with patient. He is in agreement with plan and feels comfortable managing his insulin this way. Emphasized healthy dietary choices. Discussed strict return precautions. Patient voiced understanding. Discharged in stable condition. Differential Diagnosis Differential Diagnosis: DKA, HHS, hyperglycemia, UTI Medical Records I have reviewed the following patient records and this information was taken into consideration when formulating the assessment and plan.: previous labs, previous ER visits, previous hospitalizations and previous clinic visits Lab Data MDM Lab Attestation statement: I personally reviewed the patient's lab results. 04/13/25 07:59 04/13/25 07:59 Labs: Lab Results 04/13/25 04/13/25 04/13/25 Range/Units 07:39 07:59 11:07 WBC 5.3 (4.5-10.0) K/mm3 RBC 5.31 (4.6-6.20) M/mm3 Hgb 15.9 (14.0-18.0) g/dL Hct 44.4 (42.0-52.0) % MCV 83.6 (80-100) fl MCH 29.9 (26-34) pg MCHC 35.8 (32-36) g/dl RDW 12.3 (11.5-14.5) % Plt Count 258 (150-375) k/mm3 MPV 9.6 (7.4-10.4) fl Immature Gran % (Auto) 0.6 H (0-0.5) % Neut % (Auto) 57.5 (45.5-73.1) % Lymph % (Auto) 30.8 (18.3-44.2) % [place] % (Auto) 8.6 H (2.6-8.5) % Eos % (Auto) 1.9 (0-4.4) % Baso % (Auto) 0.6 (0.2-1.2) % Lymph # (Auto) 1.62 (0.9-3.2) K/mm3 [place] # (Auto) 0.5 (0.1-0.6) K/mm3 Eos # (Auto) 0.1 (0-0.3) K/mm3 Baso # (Auto) 0.0 (0.0-0.1) K/mm3 Abs Immat Gran (auto) 0.03 (0.00-0.031) K/mm3 Absolute Neuts (auto) 3.0 (1.3-6.7) K/mm3 Absolute Nucleated RBC 0.000 (0.0-0.012) K/mm3 Nucleated RBC % 0.0 (0.0-0.2) % Sodium 135 L (137-145) mmol/L Potassium 4.3 (3.4-5.0) mmol/L Chloride 103 (98-107) mmol/L Carbon Dioxide 24 (22-30) mmol/L Anion Gap 8 (4-12) mmol/L BUN 16 (9-20) mg/dL Creatinine 0.69 L (0.7-1.3) mg/dL Estim Creat Clear Calc 254 ml/min Estimated GFR > 60 (59 - ) Glucose 378 H (65-110) mg/dL POC Capillary Glucose 359 H 264 H (65-105) mg/dl Hemoglobin A1c 10.0 H (<5.7) % Calcium 9.3 (8.4-10.2) mg/dL Phosphorus 5.3 H (2.5-4.5) mg/dL Magnesium 1.7 (1.6-2.3) mg/dL Total Bilirubin 0.6 (0.2-1.3) mg/dL AST 46 (17-59) U/L ALT 65 H (6-50) U/L Alkaline Phosphatase 138 H (38-126) U/L Total Protein 7.3 (6.3-8.2) g/dL Albumin 4.3 (3.5-5.1) g/dL Urine Color Yellow (Yellow) Urine Appearance Clear (Clear) Urine pH 6.5 (5.0-9.0) Ur Specific [place] 1.034 (1.001-1.035) Urine Protein Negative (Negative) mg/dL Urine Glucose (UA) 3+ H (Negative) mg/dL Urine Ketones Trace H (Negative) mg/dL Ur Blood (Man) Negative (Negative) Urine Nitrate Negative (Negative) Urine Bilirubin Negative (Negative) Urine Urobilinogen 0.2 (<2.0) mg/dL Leukocyte Esterase Rfl Negative (Negative) BUDDY/UL Discharge Plan Discharge Clinical Impression: Hyperglycemia due to type 2 diabetes mellitus Qualifiers: Diabetes mellitus terminal operations manager insulin use: with terminal operations manager use Qualified Code(s): E11.65 - Type 2 diabetes mellitus with hyperglycemia Patient Disposition: Home Condition: Stable Instructions: Antibiotic Form, Diabetic Hyperglycemia (ED) Additional Instructions: Monitor blood sugar FOUR TIMES PER DAY and keep a log of this. It is recommended you take your long-acting U-500 100units twice per day and Novolog (short acting) 20units three times per day with meals. Follow-up closely with your primary care doctor for further evaluation and diabetic medication management. Call office to make appointment. Monitor diet. Return to the ED if you experience worsening or severe symptoms Patient Language: Occitan Prescriptions: New Humulin R U-500 (Conc) Kwikpen 500 unit/mL (3 mL) insulin pen 100 unit subcut BID Qty: 6 0RF (DME) lancets-blood glucose strips 32 gauge kit See Rx Instructions .Route Qty: 300 0RF Rx Instructions: As directed insulin aspart U-100 [Novolog FlexPen U-100 Insulin] 100 unit/mL (3 mL) insulin pen 20 unit subcut TID Qty: 15 0RF No Action duloxetine 60 mg Capsule,Delayed Release(Dr/Ec) 60 mg PO DAILY clindamycin HCl 300 mg capsule 300 mg PO Q6H 7 Days Qty: 28 0RF carvedilol 25 mg Tablet 25 mg PO BID indapamide 2.5 mg Tablet 2.5 mg PO DAILY lisinopril 5 mg Tablet 5 mg PO DAILY Humulin R U-500 (Conc) Kwikpen 500 unit/mL (3 mL) Insulin Pen 1 unit SUBCUT DIRECTED ondansetron HCl 4 mg tablet 4 mg PO Q4H Qty: 10 0RF Rx Instructions: 1st dose 1-2 hr before radiation cephalexin 500 mg capsule 500 mg PO Q8H 7 Days Qty: 21 0RF clotrimazole 1 % cream 1 applic topical BID 56 Days Qty: 15 0RF Follow-up/Referrals: Don,MD Gelnn [Non-Staff] Referral Note: PRIMARY UNKNOWN,DOCTOR [Primary Care Provider] Stand Alone Forms: Work/School Release IP Time of Disposition: 12:18
[2025-04-13 11:02] VITALS: BP 112/70; PULSE 75; RESP 12; O2SAT 97
--- NOTE | 2025-04-13 11:16 | PC.NURSE ---
Pt blood glucose 264 at this time. Pt states, 200 is normal for me.
[2025-04-13 12:27] VITALS: BP 132/78; PULSE 80; RESP 16
== END 2025-04-13 12:29 | disposition home or self-care (01) ==
PROVIDERS: Emergency Medicine; Emergency Provider Physician Assistant
DX: E11.65 Type 2 diabetes mellitus with hyperglycemia (principal); I25.10 Atherosclerotic heart disease of native coronary artery without angina pectoris; I10 Essential (primary) hypertension; I34.1 Nonrheumatic mitral (valve) prolapse; E66.01 Morbid (severe) obesity due to excess calories; Z68.41 Body mass index [BMI] 40.0-44.9, adult; Z79.4 Long term (current) use of insulin; Z79.899 Other long term (current) drug therapy
CPT/HCPCS: 36415; 80053; 81003; 82948; 83036; 83735; 84100; 85025; 96360; 99283; J7030

== ENCOUNTER 2025-05-01 18:51 | Emergency (ER) | payer BC, SELFPAY ==
--- NOTE | ~2025-05-01 | XR_ITS ---
Examination: XR chest 1V Clinical History: cough, fever Comparison: 05/03/2024 Technique: PA upright Findings: Heart size normal. Lungs probably clear. No acute bony abnormality. IMPRESSION: 1. No acute cardiopulmonary findings. Reviewed, dictated and finalized at location R. [employer]
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
--- OUTSIDE RECORDS SUMMARY | 2025-05-01 18:53 | XMS_ITS | Clinical Summary ---
Author Organization [facility] [employer] Address [address] [place] [address] Care Team Providers Care Director Of Agriculture Name Role Phone Unavailable Primary Care Provider Unavailabl e Source Comments [facility] [employer],non-owned Affiliates and Associated Physician Practices is amultiple site organization consisting of ambulatory clinics and hospital sitesin [place], [place], [place] and [place]. This disclosure is being madepursuant to the Care Everywhere program and may not contain all information available regarding this patient. Last updated 18.[facility] [employer] Allergies No known active allergies Medications * Be aware that medications may not be up to date on this document. Alwaysverify current medications with the patient. tiZANidine (Zanaflex) 4 MG tablet Take 1 [...] at Not on file Legal Sex Male 5:38 AM NEWS COMMENTATOR Gender Identity Not on file Sexual Orientation Not on file Last Filed Vital Signs Vital Sign Reading Time Taken Comments Blood Pressure 116/83 10/22/2022 4:16 PM CDT Pulse 80 10/22/2022 4:16 PM CDT Temperature 36.7 C (98 F) 10/22/2022 4:16 PM CDT Respiratory Rate 20 10/22/2022 4:16 PM CDT Oxygen Saturation 98% 10/22/2022 4:16 PM CDT Inhaled Oxygen Concentration - - Weight 174.6 kg (385 lb) 10/22/2022 1:08 PM CDT Height 205.7 cm (6' 9) 10/22/2022 1:08 PM CDT Body Mass Index 41.26 10/22/2022 1:08 PM CDT Plan of Treatment Health Maintenance Due Date Last Done Comments HIV SCREENING 2012 HEPATITIS C SCREENING 12/24/2015 DTAP/TDAP/TD VACCINES (1 - Tdap) 2016 HEPATITIS B VACCINE (1 of 3 - 19+ 3-dose series) 2016 DEPRESSION SCREENING 05/06/2024 HPV VACCINE (1 - 3-dose SCDM series) 2024 COVID-19 VACCINE (3 - 2024-2 6 season) 2025 05/25/2021, 05/04/2021 INFLUENZA VACCINE (#1) 2025 , 03/06/2019, 02/15/2015 ZOSTER VACCINE (1 of 2) 12/29/2047 HIB VACCINE Aged Out No longer eligi ble based on patient's age to complete this topic MENINGOCOCCAL (Group B) VACCINE SHARED DECISION-MAKING Aged Out No longer eligible based on patient's age to complete this topic MENINGOCOCCAL GROUPS A/C/Y/W VACCINE Aged Out No longer eligible b ased on patient's age to complete this topic PNEUMOCOCCAL VACCINE Aged Out No long er eligible based on patient's age to complete this topic Insurance ANTH ANTHEM ANTHEM
--- OUTSIDE RECORDS SUMMARY | 2025-05-01 18:54 | XMS_ITS | Clinical Summary ---
Author Organization [facility] Address [address] [place] [address] Phone Care Team Providers Care Chalk Machine Operator Name Role Phone Unavailable Primary Care Provider Unavailabl e Social History Tobacco Use Types Packs/Day Years Used Date Smoking Tobacco: Never Assessed Sex and Gender Information Value Date Recorded Sex Assigned at Not on file Legal Sex Male 4:16 PM CDT Gender Identity Not on file Sexual Orientation Not on file Plan of Treatment Health Maintenance Due Date Last Done Comments DTAP/TDAP/TD VACCINES (1 - Tdap) 2016 HEPATITIS B VACCINES (1 of 3 - 19+ 3-dose series) 12/05 INFLUENZA VACCINE (#1) 2024 HPV VACCINES (No Doses Required) Completed
--- OUTSIDE RECORDS SUMMARY | 2025-05-01 18:54 | XMS_ITS | Encounter Summary ---
Author Organization [facility] Address [address] [place] [address] Phone Care Team Providers Care Acquisition Marketing Manager Name Role Phone Etelvina Del Cid MD Primary Care Provider + No, Physician Primary Care Provider [phone] Jann Burrows MD Primary Care Provider [phone] Mariana Monique MD Unavailable [phone] [facility] Primary Care Provider Encounter Details Date Type Department Care Team (Latest Contact Info) Description 09/06/2017 Orders Only [facility] Scanning, Provider Social History Tobacco Use Types Packs/Day Years Used Date Smoking Tobacco: Never Sex and Gender Information Value Date Recorded Sex Assigned at Not on file Legal Sex Male 5:01 AM INTEGRATION ANALYST Gender Identity Male 12/18/2017 12:38 PM [...] documented as of this encounter Care Teams Acquisition Marketing Manager Relationship Specialty Start Date End Date Etelvina Del Cid MD [address] [facility] [address] [place] [address] PCP - General 08/14/16 03/10/19 No, Physician PCP - General 03/11/19 03/12/19 Jann Burrows MD [address] [place] [address] PCP - General Hematology 03/13/19 10/28/21 Keila Jimenez MD [address] [place] [address] PCP - General 10/29/21 Mariana Monique MD [address] [place] [address] Referring Physician Internal Medicine 01/17/20 documented as of this encounter
--- OUTSIDE RECORDS SUMMARY | 2025-05-01 18:54 | XMS_ITS | Clinical Summary ---
Author Organization [facility] Address [address] [place] [address] Phone Care Team Providers Care Occupational Safety And Health Manager Name Role Phone Glenn Ochoa MD Primary Care Provider [phone] Immunizations Immunization Administration Dates Next Due DTAP VACCINE, 5 PERTUSSIS AN TIGENS, VACCINE IM 10/06/2002,08/10/1999,07/04/1998,05/02,02/28/1998 HIB Vaccine (PRP-T) 08/10/1999, 9,05/02/1998,02/28 Hepatitis A Vaccine, Pediatric/adolescent, 2 Dose Schedule 02/15/2015 Hepatitis B Vaccine, Pediatric/adolescent 10/06/1998,01/31/1998,1997 Human Papillomavirus Vaccine (HPV), quadrivalent 12/30/2013,08/29/2013,06/22/2013 Inactivated Polio Vaccine 10/06/2002,10/1999,05/02/1998,02/28 Influenza Vaccine, Quadrivalent, PF /01/2023,05/04/2021,03/06/2019,02/15 MMR Vaccine 10/06/2002,12/29/1998 Meningococcal Vaccine 02/15/2015,12/13/2010 Pneumococcal Vaccine Peds - 7 Valent 06/17/2000 Rotavirus Pentavalent Vaccine (RV5) 08/04/1998,0 07/04/1998,05/02/1998 TDAP Vaccine 11/04/2024,12/13/2010 Varicella Vaccine Live 11/04/2007,04/03/1999 Social History Tobacco Use Types Packs/Day Years Used Date Smoking Tobacco: Never Assessed Sex and Gender Information Value Date Recorded Sex Assigned at Not on file Legal Sex Male 2:32 PM CDT Gender Identity Not on file Sexual Orientation Not on file Plan of Treatment Upcoming Encounters Date Type Department Care Team (Late st Contact Info) Description 06/04/2025 2:15 PM ABORIGINAL CEREMONIAL CELEBRANT Office Visit [facility] - Endocrinology - [place] [address] [place] [address] Alfredo Hargrove MD [address] [address] Health Maintenance Due Date Last Done Comments Hepatitis C Virus (HCV) Screening 1997 Welcome to Medicare (IPPE) G0402 10/04/2024 Influenza Immunization (#1) 01/04/202504/06, 05/04/2021, 03/06/2019, Additional history exists SARS-COV-2 Immunization ( season) 2025 05/25/2021, 05/04/2021 DTaP/Tdap/Td Immunization (8 - Td or Tdap) 11/04/2034 11/04/2024, 12/13/2010, 10/06/2002, Additional history exists Respiratory Syncytial Virus (RSV) Immunization (Adult) (1 - 1-dose 75+ series) 2072 Rotavirus Immunization Completed 9, 07/04/1998, 05/02/1998 Hepatitis B Immunization Completed 999, 01/31/1998, 1997 Pneumococcal Immunization Combined Aged Out 06/17/2000 No longer eligible based on patient's age to complete this topic Varicella Immunization Completed 11/04/2007, 1998 Human Papillomavirus (HPV) Immunization Completed 12/30/2013, 08/29/2013, 06/22/2013 Meningococcal Immunization (ACWY) Completed 02/15/2015, 12/13/2010 TdaP Immunization Discontinued 11/04/2024, 12/13/2010 Insurance [place] [id number] Care Teams Occupational Safety And Health Manager Relationship Specialty Start Date End Date Glenn Ochoa MD [address] [place] [address] PCP - General Internal Medicine 11/20/24
[2025-05-01 18:55] VITALS: BP 157/86; PULSE 112; RESP 19; TEMP 37.7; O2SAT 98
[2025-05-01 19:42] LABS: Influenza A QL RT-PCR Negative (Negative); Influenza B QL RT-PCR Negative (Negative); RSV RNA, RT-PCR Negative (Negative); SARS-CoV-2 RNA PCR Negative (Negative)
--- NOTE | 2025-05-01 20:04 | ED_ITS ---
HPI - URI/Sore Throat General Chief Complaint: Upper Respiratory Infection Stated Complaint: i'm having pain cough congestion Time Seen by Provider: 05/01/25 19:36 History of Present Illness HPI Narrative: 29-year-old male with past medical history including type 2 insulin-dependent diabetes presenting to the emergency department with multiple complaints including myalgias, congestion, cough with productive mucus, sore throat, nausea for last 4 days. Has been having diffuse myalgias more so in his lower and upper back and bilateral shoulder girdle and been taking Tylenol and ibuprofen with no relief. Has had intermittent headaches responsive to Excedrin. Was otherwise in his normal state of health. Was recently seen here with increased dose of his insulin secondary to uncontrolled diabetes however. No history of DKA. No other medication changes recently. Does have small infant sent home, no other sick contacts. No difficulty breathing, chest pain, current headache, diarrhea, constipation, traumatic injuries or falls. Related Data Home Medications ?Medication ?Instructions ?Recorded ?Confirmed ?Last Taken ?Type carvedilol 25 mg tablet 25 mg PO BID 05/22/19 Unknown History indapamide 2.5 mg tablet 2.5 mg PO DAILY 05/22/1911/26 Unknown History insulin regular hum U-500 conc 500 1 unit subcut DI RECTED 05/22/19 09/10/23 Unknown History unit/mL(3 mL) subcut pen (Humulin R U-500 (Conc) Insulin Kwikpen) lisinopril 5 mg tablet 5 mg PO DAILY 05/22/1909/09 Unknown History duloxetine 60 mg capsule,delayed 60 mg PO DAILY 09/10/23 Unknown History release Allergies Allergy/AdvReac Type Severity Reaction Status Date / Time magnesium AdvReac Agitated Verified 05/01/25 18:53 potassium AdvReac Agitated Verified 05/01/25 18:53 Review of Systems 2 Review of Systems: As reviewed above in HPI All systems reviewed & are unremarkable except as noted in HPI and below PMFSH Past Medical History Medical History (Updated 05/01/25 @ 21:02 by Tonny Mendez MD) Diabetes HTN (hypertension) CAD (coronary artery disease) MVP (mitral valve prolapse) Social History Social History Smoking status: Never smoker Alcohol intake: current Alcohol use details: occasional Substance use: never Exam 2 Narrative: GENERAL: [Well-appearing, well-nourished, and in no acute distress.] HEAD: [Normocephalic, atraumatic.] EYES: [PERRLA and EOMI.] ENT: Nares clear, no rhinorrhea or epistaxis. Mucous membranes moist. Posterior oropharyngeal erythema, no exudates. NECK: Supple. CHEST: [Clear to auscultation. No respiratory distress.] HEART: [Regular rate and rhythm]. No murmur heard. [Normal peripheral pulses.] ABDOMEN: [Soft, nondistended], [nontender], [No rigidity or guarding] EXTREMITIES: Normal range of motion. [No edema.] SKIN: Warm, dry, no rash. NEURO: [No focal deficits]. Alert and oriented [x3.] PSYCH: [Normal mood and affect.] Course Vital Signs Vital signs: Vital Signs Temperature 37.7 C H 05/01/25 18:55 Pulse Rate 112 H 05/01/25 18:55 Respiratory Rate 19 05/01/25 18:55 Blood Pressure 157/86 H 05/01/25 18:55 Pulse Oximetry 98 05/01/25 18:55 Oxygen Delivery Room Air 05/01/25 18:55 Temperature 36.3 C L 05/01/25 21:09 Pulse Rate 94 05/01/25 21:09 Respiratory Rate 22 H 05/01/25 21:09 Blood Pressure 152/97 H 05/01/25 21:09 Pulse Oximetry 97 05/01/25 21:09 Oxygen Delivery Room Air 05/01/25 19:29 MDM MDM Narrative Medical decision making narrative: 29-year-old male with past medical history including type 2 insulin-dependent diabetes presenting to the emergency department with multiple complaints including myalgias, congestion, cough with productive mucus, sore throat, nausea for last 4 days. Has been having diffuse myalgias more so in his lower and upper back and bilateral shoulder girdle and been taking Tylenol and ibuprofen with no relief. Has had intermittent headaches responsive to Excedrin. Was otherwise in his normal state of health. Was recently seen here with increased dose of his insulin secondary to uncontrolled diabetes however. No history of DKA. No other medication changes recently. Does have small infant sent home, no other sick contacts. No difficulty breathing, chest pain, current headache, diarrhea, constipation, traumatic injuries or falls. Patient overall is well appearing not any distress. Borderline febrile mild tachycardia. Blood pressure mildly elevated. Normal respiratory effort. No hypoxemia. Not any apparent distress but does have a complaints consistent with potential viral illness verses dehydration versus influenza versus COVID versus pneumonia. Possibility of diabetic complications given his uncontrolled diabetes as well. Laboratory studies were obtained as well as a chest x-ray. Patient was given fluids Toradol Zofran and re-evaluated. Laboratory studies show patient tested positive for strep throat. Started on amoxicillin after confirm his allergy list. Negative for COVID, flu, RSV. Chest x-ray shows no overt pneumonia, right-sided hilum seems a little full but compared to previous chest x-ray in 2022 and 2023 no interval change, unlikely infectious. Hyperglycemia without ketosis or any anion gap. Discussed this with the patient and given additional fluids. He states he did not take his nightly insulin will take this at home. States that his blood sugar currently is around his baseline given his A1c. Discussed with him his low magnesium borderline and states that he cannot take oral or IV magnesium and is aware of this. Patient still endorsing diffuse myalgias requesting something stronger for pain. Given a dose of morphine. Symptoms controlled at this time, prescriptions for amoxicillin sent to his pharmacy safe for discharge with PCP follow-up and given return precautions. Differential Diagnosis Differential Diagnosis: Not any apparent distress but does have a complaints consistent with potential viral illness verses dehydration versus influenza versus COVID versus pneumonia. Possibility of diabetic complications given his uncontrolled diabetes as well. Lab Data [facility] Lab Attestation statement: I personally reviewed the patient's lab results. 05/01/25 20:16 05/01/25 20:16 Labs: Lab Results 05/01/25 05/01/25 05/01/25 Range/Units 18:58 20:10 20:16 WBC 8.8 (4.5-10.0) K/mm3 RBC 5.02 (4.6-6.20) M/mm3 Hgb 15.3 (14.0-18.0) g/dL Hct 41.6 L (42.0-52.0) % MCV 82.9 (80-100) fl MCH 30.5 (26-34) pg MCHC 36.8 H (32-36) g/dl RDW 12.1 (11.5-14.5) % Plt Count 217 (150-375) k/mm3 MPV 9.3 (7.4-10.4) fl Immature Gran % (Auto) 0.8 H (0-0.5) % Neut % (Auto) 76.2 H (45.5-73.1) % Lymph % (Auto) 12.1 L (18.3-44.2) % [place] % (Auto) 9.1 H (2.6-8.5) % Eos % (Auto) 1.3 (0-4.4) % Baso % (Auto) 0.5 (0.2-1.2) % Lymph # (Auto) 1.06 (0.9-3.2) K/mm3 [place] # (Auto) 0.8 H (0.1-0.6) K/mm3 Eos # (Auto) 0.1 (0-0.3) K/mm3 Baso # (Auto) 0.0 (0.0-0.1) K/mm3 Abs Immat Gran (auto) 0.07 H (0.00-0.031) K/mm3 Absolute Neuts (auto) 6.7 (1.3-6.7) K/mm3 Absolute Nucleated RBC 0.000 (0.0-0.012) K/mm3 Nucleated RBC % 0.0 (0.0-0.2) % Sodium 134 L (137-145) mmol/L Potassium 4.3 (3.4-5.0) mmol/L Chloride 100 (98-107) mmol/L Carbon Dioxide 25 (22-30) mmol/L Anion Gap 9 (4-12) mmol/L BUN 16 (9-20) mg/dL Creatinine 0.74 (0.7-1.3) mg/dL Estim Creat Clear Calc 235 ml/min Estimated GFR > 60 (59 - ) Glucose 382 H (65-110) mg/dL Calcium 9.4 (8.4-10.2) mg/dL Magnesium 1.5 L (1.6-2.3) mg/dL Total Bilirubin 1.2 (0.2-1.3) mg/dL AST 86 H (17-59) U/L ALT 96 H (6-50) U/L Alkaline Phosphatase 146 H (38-126) U/L Total Creatine Kinase 171 H (55-170) U/L Total Protein 7.1 (6.3-8.2) g/dL Albumin 4.2 (3.5-5.1) g/dL Beta-Hydroxybutyrate/Acetoacetate 0.33 H (0.02-0.27) mmol/L Influenza A (RT-PCR) Negative (Negative) Influenza B (RT-PCR) Negative (Negative) RSV (RT-PCR) Negative (Negative) SARS-CoV-2 RNA (RT-PCR) Negative (Negative) Group A Strep (PCR) Detected A (Negative) Imaging Data Attestation: I personally reviewed and interpreted this imaging study as follows: My impression: No obvious consolidation. No pneumothorax. Discharge Plan Discharge Clinical Impression: Strep throat, Myalgia, Upper respiratory infection Patient Disposition: Home Condition: Stable Instructions: Antibiotic Form, Strep Throat (ED) Additional Instructions: Tested positive for strep throat. Laboratory studies show elevated glucose but no signs of diabetic emergency at this time but does need to be addressed with your doctor about better glycemic control. Symptoms consistent with your body finding of strep throat and requires antibiotics for 10 days to fully control symptoms. We will send you home with antibiotics and nausea controlling medications. Return with any emergent concerns at any time. Continue Tylenol ibuprofen every 6-8 hours for fever and pain control. Return with any worsening or emergent concerns at any time such as intractable symptoms, intractable nausea vomiting, losing consciousness, difficulty breathing, dehydration or any other issues. Patient Language: Turkish Prescriptions: New amoxicillin 500 mg capsule 500 mg PO Q12H 10 Days Qty: 20 0RF ondansetron 4 mg tablet,disintegrating 4 mg PO Q8H PRN (Reason: nausea and vomiting) Qty: 20 0RF No Action duloxetine 60 mg Capsule,Delayed Release(Dr/Ec) 60 mg PO DAILY clindamycin HCl 300 mg capsule 300 mg PO Q6H 7 Days Qty: 28 0RF carvedilol 25 mg Tablet 25 mg PO BID indapamide 2.5 mg Tablet 2.5 mg PO DAILY lisinopril 5 mg Tablet 5 mg PO DAILY Humulin R U-500 (Conc) Kwikpen 500 unit/mL (3 mL) Insulin Pen 1 unit SUBCUT DIRECTED ondansetron HCl 4 mg tablet 4 mg PO Q4H Qty: 10 0RF Rx Instructions: 1st dose 1-2 hr before radiation cephalexin 500 mg capsule 500 mg PO Q8H 7 Days Qty: 21 0RF clotrimazole 1 % cream 1 applic topical BID 56 Days Qty: 15 0RF Humulin R U-500 (Conc) Kwikpen 500 unit/mL (3 mL) insulin pen 100 unit subcut BID Qty: 6 0RF (DME) lancets-blood glucose strips 32 gauge kit See Rx Instructions .Route Qty: 300 0RF Rx Instructions: As directed insulin aspart U-100 [Novolog FlexPen U-100 Insulin] 100 unit/mL (3 mL) insulin pen 20 unit subcut TID Qty: 15 0RF (DME) lancets-blood glucose strips 32 gauge kit See Rx Instructions .Route Qty: 300 0RF Rx Instructions: Use as directed to check blood glucose QID Follow-up/Referrals: Don,MD Glenn [Primary Care Provider] Time of Disposition: 21:04
[2025-05-01 20:29] LABS: Hematocrit 41.6 % (42.0-52.0); Hemoglobin 15.3 g/dL (14.0-18.0); Immature Granulocyte Percent A 0.8 % (0-0.5); Lymphocytes Absolute Auto 1.06 K/mm3 (0.9-3.2); Mean Corpuscular HGB Conc 36.8 g/dl (32-36); Mean Corpuscular Hemoglobin 30.5 pg (26-34); Mean Corpuscular Volume 82.9 fl (80-100); Nucleated Red Blood Cells Absolute Auto 0.000 K/mm3 (0.0-0.012); Nucleated Red Blood Cells Perc 0.0 % (0.0-0.2); Platelet Count Result 217 k/mm3 (150-375); Red Blood Count 5.02 M/mm3 (4.6-6.20); White Blood Count 8.8 K/mm3 (4.5-10.0)
[2025-05-01] MEDS: KETOROLAC 30 MG/ML VIAL (*BKC) IV PUSH (20:31)
[2025-05-01] MEDS: ONDANSETRON INJ 4 MG/2 ML VIAL IV PUSH (20:31)
[2025-05-01] MEDS: LACTATED RINGERS 1,000 ML 999 ML IV CONT ×2 (20:32→21:04)
[2025-05-01 20:40] LABS: Strep Group A RT-PCR DETECTED (Negative)
[2025-05-01 20:45] LABS: Alanine Aminotransferase 96 U/L (6-50); Albumin Level 4.2 g/dL (3.5-5.1); Alkaline Phosphatase 146 U/L (38-126); Anion Gap 9 mmol/L (4-12); Aspartate Amino Transferase 86 U/L (17-59); Beta-Hydroxybutyrate/Acetoace. 0.33 mmol/L (0.02-0.27); Bilirubin,Total 1.2 mg/dL (0.2-1.3); Blood Urea Nitrogen 16 mg/dL (9-20); Calcium 9.4 mg/dL (8.4-10.2); Carbon Dioxide 25 mmol/L (22-30); Chloride 100 mmol/L (98-107); Creatine Kinase 171 U/L (55-170); Estimated CRCL calculation 235 ml/min; Estimated Glomerular Filt Rate > 60; Glucose 382 mg/dL (65-110); Magnesium 1.5 mg/dL (1.6-2.3); Potassium 4.3 mmol/L (3.4-5.0); Sodium 134 mmol/L (137-145); Total Protein 7.1 g/dL (6.3-8.2)
[2025-05-01] MEDS: MORPHINE SULFATE (*CRX) 4 MG/ML INJ IV PUSH (21:04)
[2025-05-01] MEDS: AMOXICILLIN 500 MG CAPSULE PO (21:04)
[2025-05-01 21:09] VITALS: BP 152/97; PULSE 94; RESP 22; TEMP 36.3; O2SAT 97
== END 2025-05-01 22:08 | disposition home or self-care (01) ==
PROVIDERS: Emergency Medicine; Emergency Provider Student in an Organized Health Care Education/Training Program; PCP Internal Medicine
DX: J02.0 Streptococcal pharyngitis (principal); M79.10 Myalgia, unspecified site; Z20.822 Contact with and (suspected) exposure to COVID-19; I10 Essential (primary) hypertension; I25.10 Atherosclerotic heart disease of native coronary artery without angina pectoris; I34.1 Nonrheumatic mitral (valve) prolapse; E11.9 Type 2 diabetes mellitus without complications; Z79.4 Long term (current) use of insulin; Z79.899 Other long term (current) drug therapy
CPT/HCPCS: 36415; 71045; 80053; 82010; 82550; 83735; 85025; 87637; 87651; 96361; 96374; 96375; 99284; A9270; J1885; J2270; J2405; J7120